=== PATIENT | male | born 1960 | race African-American/Black ===

== ENCOUNTER 2017-04-24 02:53 | Observation (INO) | payer OTHER ==
--- NOTE | 2017-04-24 03:39 | PDOC ---
History of Present Illness - General Chief Complaint: Chronic pain Stated Complaint: KNEE PAIN Time Seen by Provider: 04/24/17 02:58 - History of Present Illness Initial Comments: 04/24/17 03:22 CHIEF COMPLAINT: knee pain HISTORY OF PRESENT ILLNESS: 55 yo M with PMH of NIDDM, HTN, CHF, dyslipidemia, gout, and neuropathy presents to ED with "gout in my knee." Patient states he has had multiple episodes of gout attacks and this feels "exactly the same as usual, I can feel the crystals." Patient denies any shortness of breath, chest pain, headache, palpitations. No recent travel or sick contacts. PAST MEDICAL HISTORY: Denies past medical history FAMILY HISTORY: Denies SOCIAL HISTORY: Denies tobacco, alcohol, illicit drug use. SURGICAL HISTORY: Denies ALLERGIES: No known drug allergies REVIEW OF SYSTEMS General/Constitutional: Denies fever or chills. Denies weakness, weight change. HEENT: Denies change in vision. Denies ear pain or discharge. Denies sore throat. Cardiovascular: Denies chest pain or shortness of breath. Respiratory: Denies cough, wheezing, or hemoptysis. Gastrointestinal: Denies nausea, vomiting, diarrhea or constipation. Denies rectal bleeding. Genitourinary: Denies dysuria, frequency, or change in urination. Musculoskeletal: "My knee hurts, I can't walk on it at all." Skin and breasts: Denies rash or easy bruising. PHYSICAL EXAM General Appearance: Well-appearing, appropriately dressed. No apparent distress , no intoxication. HEENT: EOMI, PERRLA, normal ENT inspection, normal voice, TMs normal, pharynx normal. No conjunctival pallor. No photophobia, scleral icterus. Neck: Supple. Trachea midline. No tenderness, rigidity, carotid bruit, stridor , lymphadenopathy, or thyromegaly. Respiratory/Chest: Lungs CTAB. No shortness of breath, chest tenderness, respiratory distress, accessory muscle use. No crackles, rales, rhonchi, stridor , wheezing, dullness Cardiovascular: RRR. S1, S2. Vascular Pulses: Dorsalis-Pedis (R): 2+, Dorsalis-Pedis (L): 2+ Gastrointestinal/Abdominal: Normal bowel sounds. Abdomen soft, non-distended. No tenderness or rebound tenderness. No organomegaly, pulsatile mass, guarding , hernia, hepatomegaly, splenomegaly. Musculoskeletal/Extremities: Limited ROM to R knee. Normal inspection. FROM of all extremities, normal capillary refill. Pelvis Stable. No CVA tenderness. No tenderness to extremities, pedal edema, swelling, erythema or deformity. Integumentary: Appropriate color, dry, warm. No cyanosis, erythema, jaundice or rash Neurologic: automatic seamer II-XII intact. Fully oriented, alert. Appropriate mood/affect. Motor strength 5/5. No appreciable EOM palsy, facial droop or sensory deficit. Past History - Past Medical History Allergies/Adverse Reactions: Allergies Allergy/AdvReac Type Severity Reaction Status Date / Time No Known Allergies Allergy Verified 04/24/17 02:59 Home Medications: Ambulatory Orders Amlodipine Besylate 10 mg PO DAILY 04/24/17 Aripiprazole [Abilify] 10 mg PO DAILY 04/24/17 Atorvastatin Ca [Lipitor] 40 mg PO HS 04/24/17 Carvedilol 25 mg PO BID 04/24/17 Hydralazine HCl 50 mg PO TID 04/24/17 Valsartan 320 mg PO DAILY 04/24/17 Anemia: No Asthma: No Cancer: Yes Cardiac Disorders: Yes CVA: No COPD: No CHF: Yes Dementia: No Diabetes: Yes GI Disorders: No Disorders: No HTN: Yes Hypercholesterolemia: No Liver Disease: No Psychiatric Problems: Yes (bipolar) Suicide Attempt (Hx): No Seizures: No Thyroid Disease: No - Surgical History Abdominal Surgery: No Appendectomy: No Cardiac Surgery: No Cholecystectomy: No Lung Surgery: No Neurologic Surgery: No Orthopedic Surgery: No - Immunization History Immunization Up to Date: Yes - Psycho/Social/Smoking Cessation Hx Anxiety: Yes Suicidal Ideation: No Smoking History: Unknown if ever smoked Have you smoked in the past 12 months: No Number of Cigarettes Smoked Daily: 0 Information on smoking cessation initiated: No Hx Alcohol Use: No Drug/Substance Use Hx: No Substance Use Type: None Hx Substance Use Treatment: No *Physical Exam - Vital Signs Last Vital Signs Temp Pulse Resp BP Pulse Ox 97.4 F L 86 22 184/113 99 04/24/17 02:59 04/24/17 02:59 04/24/17 02:59 04/24/17 02:59 04/24/17 02:59 ED Treatment Course - LABORATORY CBC & Chemistry Diagram: 04/24/17 04:54 04/24/17 05:45 Medical Decision Making - Medical Decision Making 04/24/17 04:28 55 yo M with PMH of NIDDM, HTN, CHF, dyslipidemia, gout, and neuropathy presents to ED with "gout in my knee." VS remarkable for elevated BP, 187/113 -CBC, CMP, uric acid 04/24/17 05:45 CMP & uric acid specimens hemolyzed per lab, reordered. Patient complains of severe pain to R knee. -2 mg morphine 04/24/17 06:15 Patient states pain is "a little better, but I really still can't walk." Awaiting labs. Laboratory Tests 04/24/17 04/24/17 04/24/17 04:54 05:45 05:45 BUN Cancelled Creatinine 1.6 H D Uric Acid 8.8 H D Clinical presentation consistent with gout attack. BP continues to be elevated to 167/97. Patient reports that he normally takes hydralazine at home. -10 mg hydralazine -40 mg prednisone -1.2 colchicine 04/24/17 06:39 Case discussed in detail with oncoming emergency provider including history, physical exam and ancillary studies. In brief, this patient is being seen in the ED for a chief complaint of: knee pain/gout attack I have completed the initial assessment interview note and have ordered the following labs: CBC, CMP, uric acid I have reviewed the following results: all labs Plan for disposition as follows: discharge if patient ambulatory Oncoming SONY Brar has assumed care for the patient and will complete the evaluation and treatment. *DC/Admit/Observation/Transfer Diagnosis at time of Disposition: Knee pain, right, Unable to walk - Discharge Dispostion Condition at time of disposition: Stable Admit: No - Referrals - Patient Instructions
[2017-04-24] MEDS ORDERED: morphine CARPU-JECT 2 MG/1 ML DISP.SYRIN IVPUSH ONE (04:30)
[2017-04-24 04:59] LABS: BASOPHIL 0.8 % (0-2.0); EOSINOPHIL 1.5 % (0-4.5); MCHC 32.4 g/dl (32.0-35.9); MEAN CELL VOLUME 77.1 fl (80-96); NEUTROPHILS 82.5 % (42.8-82.8); PLATELET COUNT 300 K/MM3 (134-434); RDW 16.4 % (11.9-15.9); WHITE BLOOD COUNT 9.9 K/mm3 (4.0-10.0)
[2017-04-24] MEDS ORDERED: morphine CARPU-JECT 4 MG/1 ML DISP.SYRIN ONE (05:04)
[2017-04-24 06:27] LABS: ALBUMIN 3.2 g/dl (3.4-5.0); ALK PHOS 116 U/L (45-117); ANION GAP 9 (8-16); BILIRUBIN,TOTAL 0.3 mg/dL (0.2-1.0); CALCIUM 8.5 mg/dL (8.5-10.1); CO2 25 mmol/L (21-32); CREATININE 1.6 mg/dL (0.7-1.3); GLUCOSE,RANDOM 117 mg/dL (74-106); SGOT/AST 23 U/L (15-37); SGPT/ALT 26 U/L (12-78); TOT PROT 6.8 g/dl (6.4-8.2)
[2017-04-24] MEDS ORDERED: hydrALAZINE HCL 20 MG/ML VIAL IVPUSH ONE (06:30)
[2017-04-24] MEDS ORDERED: predniSONE 20 MG TABLET (UD) PO ONE (06:31)
[2017-04-24] MEDS ORDERED: hydrALAZINE HCL 20 MG/ML VIAL ONE (06:41)
[2017-04-24] MEDS ORDERED: predniSONE 20 MG TABLET (UD) ONE (06:41)
[2017-04-24] MEDS ORDERED: COLCHICINE 0.6 MG TABLET (FP) PO ONE ×2 (07:00→09:29)
[2017-04-24] MEDS ORDERED: COLCHICINE 0.6 MG TABLET (FP) ONE ×2 (07:34→09:33)
--- NOTE | 2017-04-24 08:19 | PDOC ---
*Physical Exam - Vital Signs Last Vital Signs Temp Pulse Resp BP Pulse Ox 97.7 F 86 17 154/97 100 04/24/17 05:10 04/24/17 07:46 04/24/17 07:46 04/24/17 07:46 04/24/17 07:46 - Physical Exam General Appearance: Yes: Appropriately Dressed. No: Apparent Distress HEENT: positive: Normal Voice Neck: positive: Supple Respiratory/Chest: negative: Respiratory Distress Extremity: positive: Normal Range of Motion, Swelling, Other (minimal swelling to R knee compared to L, no obvious effusion, no red, hot joint, FROMI). negative: Tender Integumentary: positive: Dry, Warm Neurologic: positive: Fully Oriented, Alert, Normal Mood/Affect ED Treatment Course - LABORATORY CBC & Chemistry Diagram: 04/24/17 04:54 04/24/17 05:45 - ADDITIONAL ORDERS Additional order review: Laboratory Results 04/24/17 04/24/17 04/24/17 05:45 05:45 04:54 Sodium 140 Cancelled Potassium 3.9 Cancelled Chloride 106 Cancelled Carbon Dioxide 25 Cancelled Anion Gap 9 Cancelled BUN 27 H Cancelled Creatinine 1.6 H D Cancelled Creat Clearance w eGFR 45.10 Cancelled Random Glucose 117 H Cancelled Uric Acid 8.8 H D Cancelled Calcium 8.5 Cancelled Total Bilirubin 0.3 D Cancelled AST 23 D Cancelled ALT 26 Cancelled Alkaline Phosphatase 116 Cancelled Total Protein 6.8 Cancelled Albumin 3.2 L Cancelled 04/24/17 04:54 RBC 4.66 MCV 77.1 L MCHC 32.4 RDW 16.4 H D MPV 9.0 Neutrophils % 82.5 Lymphocytes % 8.3 Monocytes % 6.9 Eosinophils % 1.5 Basophils % 0.8 - RADIOLOGY Radiology Studies Ordered: Category Date Time Status KNEE 2 POS-RIGHT [RAD] Stat Radiology 04/24/17 07:57 Ordered - Medications Given in the ED: ED Medications Discontinued Medications Generic Name Dose Route Start Last Admin Trade Name Freq PRN Reason Stop Dose Admin Colchicine 1.2 mg 04/24/17 07:00 04/24/17 07:46 Colcrys - PO 04/24/17 07:01 1.2 mg ONCE ONE Administration Hydralazine HCl 10 mg 04/24/17 06:30 04/24/17 06:42 Apresoline Injection - IVPUSH 04/24/17 06:31 10 mg ONCE ONE Administration Morphine Sulfate 2 mg 04/24/17 04:30 04/24/17 05:09 Morphine Injection - IVPUSH 04/24/17 04:31 2 mg ONCE ONE Administration Prednisone 40 mg 04/24/17 06:31 04/24/17 06:42 Deltasone - PO 04/24/17 06:32 40 mg ONCE ONE Administration Medical Decision Making - Medical Decision Making 04/24/17 08:14 Pt signed out to me at 7am 57 yo male, morbidly obesed, NIDDM, CKD (baseline cr ~6), HTN, gout, neuropathy , s/p admission for b/l LE pain in 2014, deemed to be gout vs neuropathy, tx w/ gabapentin and colchicine w/ discharge to [facility] , p/w pain and swelling to R knee w/ inability to bear weight on the right x2 days. uric acid mildly elevated in ED, nl wbc. Has since been given prednisone and morphine. Plan is to reassess and if improved, can be discharged per prior team. Of note, BP also elevated. Pt states he is on hydralazine and carvedilol at home but does not remember doses. Has since been given dose of hydralazine w/ improvement of BP 04/24/17 08:20 On reassessment, pt continues to states that he is unable to bear weight due to pain though pain is out of proportion to exam findings and pt appears to be in no apparent distress. No h/o septic joint per pt. Will get XR (assess for effusion), CRP and ESR at this time. Pt given 1.2 mg colchicine. Will give 2nd dose (0.6mg) in 1 hr. Also given gabapentin for possible neuropathy. 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 CRP mildly elevated. Pt continues to c/o pain and that he is unable to bear weight. Will discuss w/ hospitalist and admit to ?obs 04/24/17 10:08 04/24/17 10:15 04/24/17 10:43 Case d/w hospitalist and pt admitted to obs for pain control *DC/Admit/Observation/Transfer Diagnosis at time of Disposition: Unable to walk Knee pain, right Qualifiers: Chronicity: acute Qualified Code(s): M25.561 - Pain in right knee - Discharge Dispostion Condition at time of disposition: Stable Admit: Yes - Referrals Referrals: Gio Ospina MD [Staff Physician] - - Patient Instructions Printed Discharge Instructions: DI for Gout Additional Instructions: Please take medications as prescribed. You MUST follow up with your primary care doctor or the life science teacher (referral provided) by the end of next week for continued monitoring of your disease. If you experience any shortness of breath, chest pain, headache, dizziness, or any new or worsening symptoms, please return to the ER. - Post Discharge Activity
[2017-04-24] MEDS ORDERED: GABAPENTIN 300 MG CAPSULE (FP) PO ONE (08:40)
[2017-04-24] MEDS ORDERED: GABAPENTIN 100 MG CAPSULE (FP) ONE (08:47)
--- NOTE | 2017-04-24 12:34 | HP ---
Admitting History and Physical - Admission Chief Complaint: R knee pain History of Present Illness: HPI This is a 57 year old male with pmhx of gout, HTN, DM II, bipolar, CHF, who presented to the ED last night with acute worsening right knee pain. He was unable to ambulate or bear weight due to the pain and called EMS. The patient states his pain has been on and off throughout the week, however erupted on Wednesday. He does admit to eating a burger jude burger earlier in the day. He does not take any medications for gout, he was taken off of them, and admits he does not regularly take his home meds. He walks with a cane, did not fall or sustain an injury. He denies CP, SOB, abd pain, nausea, vomiting, fever, chills. ED course: 1. Knee xray negative for effusion 2. Prednisone 40mg x1 3. Colchicine 1.2mg x1 followed by 0.6 1hr later 4. Uric Acid 8.8 5. Pain same, unable to bear weight History Source: Patient Limitations to Obtaining History: No Limitations - Past Medical History Cardiovascular: Yes: CHF, HTN - Smoking History Smoking history: Unknown if ever smoked Have you smoked in the past 12 months: No Aproximately how many cigarettes per day: 0 - Alcohol/Substance Use Hx Alcohol Use: No - Social History Usual Living Arrangement: Yes: Alone ADL: Support Services Occupation: disability History of Recent Travel: No Home Medications - Allergies Allergies/Adverse Reactions: Allergies Allergy/AdvReac Type Severity Reaction Status Date / Time No Known Allergies Allergy Verified 04/24/17 02:59 - Home Medications Home Medications: Ambulatory Orders Amlodipine Besylate 10 mg PO DAILY 04/24/17 Aripiprazole [Abilify] 10 mg PO DAILY 04/24/17 Atorvastatin Ca [Lipitor] 40 mg PO HS 04/24/17 Carvedilol 25 mg PO BID 04/24/17 Hydralazine HCl 50 mg PO TID 04/24/17 Valsartan 320 mg PO DAILY 04/24/17 Family Disease History - Family Disease History Family Disease History: Heart Disease: Father (HTN) Physical Examination Vital Signs: Vital Signs Temperature 97.7 F 04/24/17 05:10 Pulse Rate 86 04/24/17 07:46 Respiratory Rate 17 04/24/17 07:46 Blood Pressure 154/97 04/24/17 07:46 O2 Sat by Pulse Oximetry (%) 100 04/24/17 07:46 Imaging - Results X-ray: Report Reviewed (XR neg for effusion but shows degenerative changes and 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 Acute Gout, R knee - Elevated uric acid level - Prednisone 30mg daily x5 days - PT daily with cane, pt unable to bear weight at this time 2. HTN - Hydralazine 50mg TID - Coreg 25mg BID - Hold norvasc for R knee swelling 3. YOCASTA - cr cl >90 - Trial gentle fluids x1L - Hold ARB 4. DM II - ISS, BGM ACHS 5. Bipolar - Daily abilify Visit type - Emergency Visit Emergency Visit: Yes ED Registration Date: 04/24/17 Care time: The patient presented to the Emergency Department on the above date and was hospitalized for further evaluation of their emergent condition. - New Patient This patient is new to me today: Yes Date on this admission: 04/24/17 - Critical Care Critical Care patient: No
[2017-04-24] MEDS ORDERED: ACETAMINOPHEN 325 MG TABLET (FP) PO PRN (13:09)
[2017-04-24] MEDS ORDERED: SODIUM CHLORIDE 1,000 ML IV SCH (13:15)
[2017-04-24] MEDS: hydrALAZINE HCL 50 MG TABLET (FP) PO SCH ×2 (14:33→22:01)
[2017-04-24] MEDS: ARIPiprazole 10 MG TABLET PO SCH (14:33)
[2017-04-24] MEDS: CARVEDILOL 25 MG TABLET (FP) PO SCH ×2 (14:33→22:01)
[2017-04-24 16:10] VITALS: BMI 44.3
[2017-04-24] MEDS: INSULIN SLIDING SCALE (NOVOLOG) 1 VIAL SQ SCH ×2 (17:45→21:57)
[2017-04-24] MEDS: HEPARIN NA (PORCINE) 5,000 UNITS/ML 1ML VIAL SQ SCH (17:54)
[2017-04-25] MEDS: HEPARIN NA (PORCINE) 5,000 UNITS/ML 1ML VIAL SQ SCH ×2 (01:13→09:54)
[2017-04-25] MEDS: INSULIN SLIDING SCALE (NOVOLOG) 1 VIAL SQ SCH (06:30)
[2017-04-25] MEDS: hydrALAZINE HCL 50 MG TABLET (FP) PO SCH (06:32)
[2017-04-25 07:31] LABS: BASOPHIL 0.7 % (0-2.0); EOSINOPHIL 0.3 % (0-4.5); MCH 24.9 pg (25.7-33.7); MCHC 32.3 g/dl (32.0-35.9); MEAN PLT VOLUME 8.2 fl (7.5-11.1); NEUTROPHILS 76.1 % (42.8-82.8); PLATELET COUNT 214 K/MM3 (134-434); RDW 16.6 % (11.9-15.9); WHITE BLOOD COUNT 9.3 K/mm3 (4.0-10.0)
[2017-04-25 08:10] LABS: ALBUMIN 2.8 g/dl (3.4-5.0); ALK PHOS 105 U/L (45-117); ANION GAP 7 (8-16); BILIRUBIN,TOTAL 0.3 mg/dL (0.2-1.0); CALCIUM 8.3 mg/dL (8.5-10.1); CO2 28 mmol/L (21-32); CREATININE 1.4 mg/dL (0.7-1.3); GLUCOSE,RANDOM 105 mg/dL (74-106); MAGNESIUM 2.2 mg/dL (1.8-2.4); PHOSPHOROUS 2.9 mg/dL (2.5-4.9); SGOT/AST 15 U/L (15-37); SGPT/ALT 20 U/L (12-78)
[2017-04-25] MEDS ORDERED: PT OWN MED DRAWER 7, Y5N ONE (09:52)
[2017-04-25] MEDS: CARVEDILOL 25 MG TABLET (FP) PO SCH (09:53)
[2017-04-25] MEDS: ARIPiprazole 10 MG TABLET PO SCH (09:54)
[2017-04-25] MEDS ORDERED: predniSONE 10 MG TABLET (UD) PO SCH (10:00)
[2017-04-25] MEDS ORDERED: BACITRACIN 15 GM TUBE TOPICAL OINTMENT TP SCH (10:30)
--- NOTE | 2017-04-25 10:36 | DS ---
Physical Exam: SUBJECTIVE: Patient seen and examined. He feels well today, he is ambulating without issue, swelling has decreased OBJECTIVE: Vital Signs Period Temp Pulse Resp BP Sys/Castillo Pulse Ox Last 24 Hr 97 F-98.3 F 66-92 17-72 140-185/64-125 100-100 PE Neuro: alert, awake, cn 2-12intact Pulm: CTAB CV: s1 s2 rrr no mrg Abd: obese abd, s nt + bs Ext: no le edema msk: r knee swelling decreased, no tenderness skin: LUE skin tear Laboratory Results - last 24 hr 04/25/17 04/25/17 06:10 06:10 WBC 9.3 RBC 4.41 Hgb 11.0 L Hct 34.0 L MCV 77.0 L MCH 24.9 L MCHC 32.3 RDW 16.6 H Plt Count 214 D MPV 8.2 Neutrophils % 76.1 Lymphocytes % 13.7 D Monocytes % 9.2 Eosinophils % 0.3 Basophils % 0.7 Sodium 142 Potassium 3.8 Chloride 107 Carbon Dioxide 28 Anion Gap 7 L BUN 20 H D Creatinine 1.4 H Creat Clearance w eGFR 52.62 POC Glucometer Random Glucose 105 Calcium 8.3 L Phosphorus 2.9 Magnesium 2.2 Total Bilirubin 0.3 AST 15 D ALT 20 D Alkaline Phosphatase 105 Total Protein 6.0 L Albumin 2.8 L HOSPITAL COURSE: Date of Admission:04/24/17 Date of Discharge: 04/25/17 Minutes to complete discharge: 36 Discharge Summary Reason For Visit: RIGHT KNEE PAIN Current Active Problems Knee pain, right (Acute) Unable to walk (Acute) Hospital Course: Initial Hospital Course: 57 year old male with pmhx of gout, HTN, DM II, bipolar, CHF, presented to the ED with acute worsening right knee pain. He was unable to ambulate or bear weight due to the pain and called EMS. The patient stated his pain has been on and off throughout the week, however erupted on Wednesday. He does admit to eating a burger jude burger earlier in the day. He does not take any medications for gout, he was taken off of them due to worsening kidney function, and admits he does not regularly take his home meds. He walks with a cane, did not fall or sustain an injury. He seen Dr. Longo at [facility] in [facility] Subsequent Hospital Course: Assessment: 57 year old male admitted with acute gout Plan: 1. Acute Gout, R knee - Elevated uric acid level - Given colchicine 1.2 followed by 0.6 and prednisone 40mg in ED initially - Home with Prednisone 30mg daily for total of 5 day course - Ambulate with cane 2. HTN - Hydralazine 50mg TID - Coreg 25mg BID - Norvasc 10mg daily 3. YOCASTA - Cr improved w fluids, returned to baseline here 4. Bipolar - Daily abilify 5. HLD - statin 6. DM II - Does not take PO meds - Was on sliding scale here 7. Skin tear, LUE - Home with bacitracin Dispo: - Home with prednisone - Follow up with pcp in 1 week - Pt aware and agrees to above plan Condition: Stable - Instructions Diet, Activity, Other Instructions: Please return to the ED for any new, persistent, or worsening symptoms. Follow up with your PCP in 1 week at [facility] in [facility] with Dr. Longo. Complete steroid course for gout for next 3 days Take home medications as directed on home medication list Apply bacitracin appt to L skin tear and keep area clean Referrals: Gio Ospina MD [Staff Physician] - Disposition: HOME - Home Medications Comprehensive Discharge Medication List: Ambulatory Orders Amlodipine Besylate 10 mg PO DAILY 04/24/17 Aripiprazole [Abilify] 10 mg PO DAILY 04/24/17 Atorvastatin Ca [Lipitor] 40 mg PO HS 04/24/17 Carvedilol 25 mg PO BID 04/24/17 Hydralazine HCl 50 mg PO TID 04/24/17 Valsartan 320 mg PO DAILY 04/24/17 Prednisone [Deltasone -] 30 mg PO DAILY #3 tablet 04/25/17 Problem List - Problems (1) Knee pain, right Code(s): M25.561 - PAIN IN RIGHT KNEE Qualifiers: Chronicity: acute Qualified Code(s): M25.561 - Pain in right knee (2) Unable to walk Code(s): R26.2 - DIFFICULTY IN WALKING, NOT ELSEWHERE CLASSIFIED (3) Gout Code(s): M10.9 - GOUT, UNSPECIFIED Qualifiers: Gout site: knee Gout etiology: unspecified cause Chronicity: chronic Laterality: right Presence of tophus: without tophus (4) CHF (congestive heart failure) Code(s): I50.9 - HEART FAILURE, UNSPECIFIED This patient is new to me today: No Emergency Visit: Yes ED Registration Date: 04/24/17 Care time: The patient presented to the Emergency Department on the above date and was hospitalized for further evaluation of their emergent condition. Critical Care patient: No - Discharge Referral Referred to [facility] Med [facility] No
[2017-04-25 10:44] VITALS: BP 142/96; PULSE 84; TEMP 99
== END 2017-04-25 11:20 | disposition home or self-care (01) ==
LOC: JER 02:53 → JERBED 10:43 → J8W 15:22
PROVIDERS: ADMIT Internal Medicine; ATTEND Nurse Practitioner Acute Care
PROC: 3E033NZ Introduction of Analgesics, Hypnotics, Sedatives into Peripheral Vein, Percutaneous Approach (ICD-10-PCS; principal; 2017-04-24)
PROC: 3E033GC Introduction of Other Therapeutic Substance into Peripheral Vein, Percutaneous Approach (ICD-10-PCS; 2017-04-24)
PROC: 3E0337Z Introduction of Electrolytic and Water Balance Substance into Peripheral Vein, Percutaneous Approach (ICD-10-PCS; 2017-04-24)
PROC: 3E013GC Introduction of Other Therapeutic Substance into Subcutaneous Tissue, Percutaneous Approach (ICD-10-PCS; 2017-04-24)
DX: M10.071 Idiopathic gout, right ankle and foot (principal); M25.561 Pain in right knee; R26.2 Difficulty in walking, not elsewhere classified; I10 Essential (primary) hypertension; I50.9 Heart failure, unspecified; E11.9 Type 2 diabetes mellitus without complications; E78.5 Hyperlipidemia, unspecified; F31.9 Bipolar disorder, unspecified; G62.9 Polyneuropathy, unspecified; N17.9 Acute kidney failure, unspecified; S40.812A Abrasion of left upper arm, initial encounter; X58.XXXA Exposure to other specified factors, initial encounter; Y93.9 Activity, unspecified; Y92.9 Unspecified place or not applicable
CPT/HCPCS: 36415; 73560-TC-RT; 80053; 83735; 84100; 84550; 85025; 85651; 86140; 99285-25; G0378; J1644

== ENCOUNTER 2017-06-24 15:25 | Emergency (ER) | payer OTHER ==
[2017-06-24 15:37] VITALS: BP 175/92; PULSE 88; TEMP 98.7; BMI 40.6
--- NOTE | 2017-06-24 16:42 | PDOC ---
History of Present Illness - General Chief Complaint: Pain, Acute Stated Complaint: EDEMA Time Seen by Provider: 06/24/17 16:21 History Source: Patient Exam Limitations: No Limitations - History of Present Illness Initial Comments: 06/24/17 16:45 06/24/17 16:54 My chief complaint: Right knee pain History of present illness: Patient is a 57-year-old male with a history of gout , hypertension, obesity, bipolar disorder, borderline diabetiic today complaining of right knee pain with difficulty ambulating. Patient reports that he was seen at the [facility] in [facility] in March 2017 and was told that he had a torn ligament or tendon in his right knee. Patient did not follow-up with orthopedist as recommended. Patient reports that he has had the right knee pain 3 days to write her however to attending told her that he had right knee pain for 3 months. Patient has slightly decreased range of motion of right knee and slight suprapatellar edema. Patient has not taken anything for pain. Patient denies any numbness of his leg. He denies any recent injuries. 06/24/17 18:51 Occurred: reports: other (3 days rt. knee pain ) Severity: Yes: severe Lower Extremity Pain Location: right: knee (anterior ) Method of Injury: Yes: unknown Modifying Factors: improves with: immobilization Lower Ext. Injury Location - Specific Injury Location Knees: right swelling (suprapatella minimal), right pain (suprapatella ) Extremity Pain Location - Extremity Pain Location Extremity Pain Locations: right: knee Past History - Past Medical History Allergies/Adverse Reactions: Allergies Allergy/AdvReac Type Severity Reaction Status Date / Time No Known Allergies Allergy Verified 06/24/17 15:35 Home Medications: Ambulatory Orders Amlodipine Besylate 10 mg PO DAILY 04/24/17 Aripiprazole [Abilify] 10 mg PO DAILY 04/24/17 Atorvastatin Ca [Lipitor] 40 mg PO HS 04/24/17 Carvedilol 25 mg PO BID 04/24/17 Hydralazine HCl 50 mg PO TID 04/24/17 Valsartan 320 mg PO DAILY 04/24/17 Prednisone [Deltasone -] 30 mg PO DAILY #3 tablet 04/25/17 Ibuprofen [Motrin -] 400 mg PO Q6H PRN #18 tablet 06/24/17 Anemia: No Asthma: No Cancer: Yes Cardiac Disorders: Yes CVA: No COPD: No CHF: Yes Dementia: No Diabetes: Yes GI Disorders: No Disorders: No HTN: Yes Hypercholesterolemia: No Liver Disease: No Psychiatric Problems: Yes (bipolar) Seizures: No Thyroid Disease: No - Surgical History Abdominal Surgery: No Appendectomy: No Cardiac Surgery: No Cholecystectomy: No Lung Surgery: No Neurologic Surgery: No Orthopedic Surgery: No - Immunization History Immunization Up to Date: Yes - Suicide/Smoking/Psychosocial Hx Smoking History: Unknown if ever smoked Have you smoked in the past 12 months: No Number of Cigarettes Smoked Daily: 0 Hx Alcohol Use: No Drug/Substance Use Hx: No Substance Use Type: None Hx Substance Use Treatment: No Review of Systems - Review of Systems Able to Perform ROS?: Yes Constitutional: No: Symptoms Reported HEENTM: No: Symptoms Reported Respiratory: No: Symptoms reported Cardiac (ROS): No: Symptoms Reported ABD/GI: No: Symptoms Reported Musculoskeletal: Yes: Joint Pain (rt. anterior knee pain ), Joint Swelling ( minimal suprapatella rt. knee) Integumentary: No: Symptoms Reported Neurological: No: Symptoms reported *Physical Exam - Vital Signs Last Vital Signs Temp Pulse Resp BP Pulse Ox 98.7 F 88 20 175/92 96 06/24/17 15:35 06/24/17 15:35 06/24/17 15:35 06/24/17 15:35 06/24/17 15:35 - Physical Exam General Appearance: Yes: Appropriately Dressed Respiratory/Chest: positive: Lungs Clear, Normal Breath Sounds. negative: Chest Tender, Respiratory Distress Cardiovascular: positive: Regular Rhythm, Regular Rate, S1, S2 Vascular Pulses: Dorsalis-Pedis (R): 4+ Extremity: positive: Normal Capillary Refill, Tender (rt.anterior knee), Swelling (minimal suprapatella rt. knee ), Other. negative: Normal Inspection ( suprapatella rt. knee), Normal Range of Motion (rt. knee RANGES AT 45 DEGREES) Integumentary: positive: Normal Color (NEGATIVE LAXITY), Other (NO INCREASED WARMTH RT. KNEE) Neurologic: positive: Alert, Normal Response, Responsive Deep Tendon Reflexes: Knee (R): 3+ Procedures - Consent Consent obtained: From Patient - Splinting Splint Location: Right: Knee Pre-Proc Neuro Vasc Exam: normal Pre-Made Type: knee immobilizer Complications: No Progress: 06/24/17 16:51 crutches Medical Decision Making - Medical Decision Making 06/24/17 18:09 06/24/17 18:51 06/24/17 18:52 Patient is a 57-year-old male with a history of gout, hypertension, obesity, bipolar disorder, borderline diabetiic today complaining of right knee pain with difficulty ambulating. Patient reports that he was seen at the [facility] in the [facility] in March 2017 and was told that he had a torn ligament or tendon in his right knee. Patient did not follow-up with orthopedist as recommended. Patient reports that he has had the right knee pain 3 days to write her however to attending told her that he had right knee pain for 3 months. Patient has slightly decreased range of motion of right knee and slight suprapatellar edema. Patient has not taken anything for pain. Patient denies any numbness of his leg. RIGHT KNEE PAIN PLAN: XRAY RT.KNEE no difficulty interval changes noted as discussed above in comparison to prior study of 04/24/2017. MRI evaluation is suggested nonemergent unless otherwise clinically indicated. There is a mild to moderate degenerative narrowing of the patellofemoral joint.Per Dr. Parr PERCOCET 5MG/325MG PO NOW KNEE IMMOBLIZER APPLIED PT. HAS CANE DOES NOT WANT CRUTCHES PT. NEEDS TO FOLLOW UP WITH ORTHOPEDIST WILL DISCHARGE ON IBUPROFEN 400 MG EVERY 6 HRS PRN PAIN 06/24/17 19:02 06/25/17 11:58 *DC/Admit/Observation/Transfer Diagnosis at time of Disposition: Knee pain, right anterior - Discharge Dispostion Disposition: HOME Condition at time of disposition: Stable - Prescriptions Prescriptions: Ibuprofen [Motrin -] 400 mg PO Q6H PRN #18 tablet PRN Reason: Pain - Referrals Referrals: German Cho MD [Staff Physician] - - Patient Instructions Additional Instructions: WEAR knee immobilizer during the day take off at night ELEVATE right leg as much as possible and apply ice every few hours for 10-15 minutes each time YOU MUST FOLLOW UP WITH ORTHOPEDIST SOON POSSIBLE FOR FURTHER EVALUATION USE YOUR CANE FOR AMBULATION RETURN TO EMERGENCY ROOM IF SYMPTOMS WORSEN OR NEW SYMPTOMS DEVELOP PATIENT VOICED UNDERSTANDING OF DISCHARGE INSTRUCTIONS AND ALL QUESTIONS WERE ANSWERED
--- NOTE | 2017-06-24 16:51 | PDOC ---
*Physical Exam - Vital Signs Last Vital Signs Temp Pulse Resp BP Pulse Ox 98.7 F 88 20 175/92 96 06/24/17 15:35 06/24/17 15:35 06/24/17 15:35 06/24/17 15:35 06/24/17 15:35 - Physical Exam General Appearance: Yes: Nourished Neck: positive: Trachea midline Respiratory/Chest: positive: Lungs Clear, Normal Breath Sounds Cardiovascular: positive: Regular Rhythm, Regular Rate, S1, S2 Extremity: positive: Other (right knee no laxity with anterior/. posterior drawer. ranges to 45deg without pain. hip ankle nt from. no effusion. no warmth. ) Integumentary: positive: Normal Color, Dry, Warm Neurologic: positive: Fully Oriented, Alert Medical Decision Making - Medical Decision Making 06/24/17 16:49 57 yo male ho bipolar chf, here with c/o 3 months right knee pain. believes he has had a ligamentous injury. walks with a cane. follows with pcp. but states she is not doing anything for his pain. no new trauma. no recollection of trauma or injury 3 mo ago. no f/c pain moderate worse with walking. on exam awake alert lungs clear heart rrr. right knee no effusion. no erythema, no warmth, able to range without difficulty to 45 degress, at which point he has pain. pt seen and examined, in conjunction with MEGAN Blackwell. agree with asssessment. no signs of inflammation such as gout. plan xray, pain medication crutches and immobilizer, and dc ortho followup. 07/05/17 08:57 *DC/Admit/Observation/Transfer Diagnosis at time of Disposition: Knee pain, right anterior - Discharge Dispostion Disposition: HOME Condition at time of disposition: Stable - Prescriptions Prescriptions: Ibuprofen [Motrin -] 400 mg PO Q6H PRN #18 tablet PRN Reason: Pain - Referrals Referrals: German Cho MD [Staff Physician] - - Patient Instructions Additional Instructions: WEAR knee immobilizer during the day take off at night ELEVATE right leg as much as possible and apply ice every few hours for 10-15 minutes each time YOU MUST FOLLOW UP WITH ORTHOPEDIST SOON POSSIBLE FOR FURTHER EVALUATION USE YOUR CANE FOR AMBULATION RETURN TO EMERGENCY ROOM IF SYMPTOMS WORSEN OR NEW SYMPTOMS DEVELOP PATIENT VOICED UNDERSTANDING OF DISCHARGE INSTRUCTIONS AND ALL QUESTIONS WERE ANSWERED
== END 2017-06-24 19:13 | disposition home or self-care (01) ==
LOC: JER 15:25
PROC: 2W3QX1Z Immobilization of Right Lower Leg using Splint (ICD-10-PCS; principal; 2017-06-24)
DX: M25.561 Pain in right knee (principal); I50.9 Heart failure, unspecified; F31.9 Bipolar disorder, unspecified; I10 Essential (primary) hypertension; E11.9 Type 2 diabetes mellitus without complications
CPT/HCPCS: 29515; 73562-TC-RT; 99282-25

== ENCOUNTER 2018-06-14 19:09 | Inpatient (IN) | payer OTHER ==
[2018-06-14] MEDS ORDERED: IBUPROFEN 400 MG TABLET (FP) PO ONE ×2 (20:05→20:07)
[2018-06-14] MEDS ORDERED: SODIUM CHLORIDE 1,000 ML IV STA (20:17)
--- NOTE | 2018-06-14 20:29 | PDOC ---
History of Present Illness - General Chief Complaint: Pain, Acute Stated Complaint: KNEE PAIN Time Seen by Provider: 06/14/18 19:55 History Source: Patient Exam Limitations: No Limitations - History of Present Illness Initial Comments: 06/14/18 20:22 Patient is a 58M with history of gout, DM, HTN, bipolar disorder here today complaining of right knee pain for the past two weeks, worsening so that he could not walk today. Patient endorses pain in his left great toe that has resolved before the pain in his knee. Patient states that this feels like his prior episodes of gout. Denies fevers, chills, nausea, vomiting. Denies chest pain, shortness of breath, and abdominal pain. Denies leg swelling and dysuria. Review of records show three prior admissions for gout and inability to ambulate. Past History - Past Medical History Allergies/Adverse Reactions: Allergies Allergy/AdvReac Type Severity Reaction Status Date / Time No Known Allergies Allergy Verified 06/14/18 19:56 Home Medications: Ambulatory Orders Amlodipine Besylate 10 mg PO DAILY 04/24/17 Aripiprazole [Abilify] 10 mg PO DAILY 04/24/17 Atorvastatin Ca [Lipitor] 40 mg PO HS 04/24/17 Carvedilol 25 mg PO BID 04/24/17 Hydralazine HCl 50 mg PO TID 04/24/17 Valsartan 320 mg PO DAILY 04/24/17 Ibuprofen [Motrin -] 400 mg PO Q6H PRN #18 tablet 06/24/17 Anemia: No Asthma: No Cancer: Yes Cardiac Disorders: Yes CVA: No COPD: No CHF: Yes Dementia: No Diabetes: Yes GI Disorders: No Disorders: No HTN: Yes Hypercholesterolemia: No Liver Disease: No Psychiatric Problems: Yes (bipolar) Seizures: No Thyroid Disease: No - Surgical History Abdominal Surgery: No Appendectomy: No Cardiac Surgery: No Cholecystectomy: No Lung Surgery: No Neurologic Surgery: No Orthopedic Surgery: No - Immunization History Immunization Up to Date: Yes - Suicide/Smoking/Psychosocial Hx Smoking History: Never smoked Have you smoked in the past 12 months: No Number of Cigarettes Smoked Daily: 0 Information on smoking cessation initiated: No Hx Alcohol Use: Yes Drug/Substance Use Hx: No Substance Use Type: None Hx Substance Use Treatment: No Review of Systems - Review of Systems Comments:: 06/14/18 20:24 GENERAL/CONSTITUTIONAL: No fever or chills. No weakness. HEAD, EYES, EARS, NOSE AND THROAT: No change in vision. No sore throat. CARDIOVASCULAR: No chest pain or shortness of breath RESPIRATORY: No cough, wheezing, or hemoptysis. GASTROINTESTINAL: No nausea, vomiting, diarrhea or constipation. GENITOURINARY: No dysuria, frequency, or change in urination. MUSCULOSKELETAL: +R knee pain. No neck or back pain. SKIN: No rash NEUROLOGIC: No headache, vertigo, loss of consciousness, or change in strength/ sensation. ENDOCRINE: No increased thirst. No abnormal weight change HEMATOLOGIC/LYMPHATIC: No anemia, easy bleeding, or history of blood clots. ALLERGIC/IMMUNOLOGIC: No hives or skin allergy. *Physical Exam - Vital Signs Last Vital Signs Temp Pulse Resp BP Pulse Ox 98.4 F 101 H 18 176/95 H 99 06/14/18 19:10 06/14/18 19:10 06/14/18 19:10 06/14/18 19:10 06/14/18 19:10 - Physical Exam Comments: 06/14/18 20:24 GENERAL: Awake, alert, and fully oriented, in no acute distress HEAD: No signs of trauma, normocephalic, atraumatic EYES: PERRLA, EOMI, sclera anicteric, conjunctiva clear ENT: Auricles normal inspection, hearing grossly normal, nares patent, oropharynx clear without exudates. Moist mucosa NECK: Normal ROM, supple, no lymphadenopathy, JVD, or masses LUNGS: No distress, speaks full sentences, clear to auscultation bilaterally HEART: Regular rate and rhythm, normal S1 and S2, no murmurs, rubs or gallops, peripheral pulses normal and equal bilaterally. ABDOMEN: Soft, nontender, normoactive bowel sounds. No guarding, no rebound. No masses R KNEE: Warm to touch, mildly swollen, tender to palpation, no signs of trauma, limited range of motion OTHER EXTREMITIES: Normal inspection, Normal range of motion, no edema. No clubbing or cyanosis. NEUROLOGICAL: Cranial nerves II through XII grossly intact. Normal speech, normal gait, no focal sensorimotor deficits SKIN: Warm, Dry, normal turgor, no rashes or lesions noted. Procedures - Arthrocentesis Indication: Septic Joint, Crystals (Gout/Psuedogout, Inflammation Arthrocentesis Site: right: knee Flexion: 20-30 degree Betadine Prep: Yes Sterile Dressing Applied: Yes Dry Tap: No Fluid Color: Yellow Fluid Amount mL: 15 Anesthesia: 2% Lidocaine Needle Size (guage): 18g Complications: No ED Treatment Course - LABORATORY CBC & Chemistry Diagram: 06/14/18 20:12 06/14/18 20:12 - RADIOLOGY Radiology Studies Ordered: Category Date Time Status CXRPORT [CHEST X-RAY PORTABLE*] [RAD] Stat Radiology 06/14/18 20:10 Ordered KNEE 3 POS-RIGHT [RAD] Stat Radiology 06/14/18 20:05 Ordered - Medications Given in the ED: ED Medications Discontinued Medications Generic Name Dose Route Start Last Admin Trade Name Freq PRN Reason Stop Dose Admin Ibuprofen 800 mg 06/14/18 20:05 06/14/18 20:10 Motrin - PO 06/14/18 20:06 800 mg ONCE ONE Administration Medical Decision Making - Medical Decision Making 06/14/18 20:25 Patient is a 58M with history of DM, HTN, bipolar disorder here today with right knee pain. Afebrile. Tachycardic to 102, in pain. DDx includes, but is not limited to: gout, septic joint, cellulitis. Strongly suspect gout, but will look for further signs of infection. Will workup with cbc, cmp, uric acid, esr/ crp. Not doing tap at this time because patient's history of gout. 06/14/18 21:21 Moderate effusion in right knee, cxr clear. EKG shows sinus tachycardia with rate of 108. No st elevations/depressions. Flattened t waves in inferior leads. Normal axis. Normal intervals. Once PVC. 06/14/18 22:18 Uric acid normal. CRP elevated. Patient has YOCASTA. Given fluids. Knee arthrocentesis done to rule out septic joint. Patient not walking. Signed out to Dr Garcia. *DC/Admit/Observation/Transfer Diagnosis at time of Disposition: Knee pain - Discharge Dispostion Condition at time of disposition: Stable - Referrals - Patient Instructions - Post Discharge Activity
[2018-06-14 20:47] LABS: HEMATOCRIT 33.7 % (35.4-49); HEMOGLOBIN 10.9 GM/dL (11.7-16.9); MCH 24.7 pg (25.7-33.7); MCHC 32.4 g/dl (32.0-35.9); MEAN PLT VOLUME 8.4 fl (7.5-11.1); PLATELET COUNT 267 K/MM3 (134-434); RBC 4.44 M/mm3 (4.00-5.60); RDW 17.5 % (11.9-15.9)
--- NOTE | 2018-06-14 20:58 | PDOC ---
Attending Attestation - Resident Resident Name: Froy Santos - ED Attending Attestation I have performed the following: I have examined & evaluated the patient, The case was reviewed & discussed with the resident, I agree w/resident's findings & plan, Exceptions are as noted - HPI HPI: 06/14/18 20:57 58 yo male p/w rt knee pain for some time -he has a h/o GOUT -no fever,no chills,no chest pain,no dyspnea,no recent trauma - Physicial Exam PE: 06/14/18 20:58 obese 58 yo male with rt knee pain head ncat neck supple lungs cta b/l cvs [id number] abd obese extremities rt knee is swollen skin warm and dry neuro axox3 06/14/18 22:37 - Medical Decision Making 06/14/18 22:38 uric acid was normal arthrocentosis was done on rt knee and copious amounts of synovial fluid were obtained -pt's bun and createnine are elevated from last know labs imp r/o septic vs inflammation of knee /renal insuffiency plan ADMISSION
[2018-06-14 21:22] LABS: ALBUMIN 2.6 g/dl (3.4-5.0); ALK PHOS 118 U/L (45-117); ANION GAP 11 MMOL/L (8-16); BILIRUBIN,TOTAL 0.4 mg/dL (0.2-1); BLOOD UREA NITROGEN 28 mg/dL (7-18); CALCIUM 8.4 mg/dL (8.5-10.1); CHLORIDE 108 mmol/L (98-107); CO2 23 mmol/L (21-32); CREATININE 2.5 mg/dL (0.55-1.3); GLUCOSE,RANDOM 91 mg/dL (74-106); POTASSIUM 3.4 mmol/L (3.5-5.1); SGOT/AST 17 U/L (15-37); SGPT/ALT 18 U/L (13-61); SODIUM 142 mmol/L (136-145); TOT PROT 6.9 g/dl (6.4-8.2); URIC ACID 6.8 mg/dL (2.6-7.2)
[2018-06-14] MEDS ORDERED: LIDOCAINE HCL 2% (50ML VIAL) INF ONE (21:30)
[2018-06-14] MEDS ORDERED: LIDOCAINE HCL 2% (20ML MULTI-DOSE VIAL) NR ONE (21:31)
[2018-06-14 21:45] LABS: ERYTHROCYTE SEDIMENTATION RATE 95 mm/hr (0-20)
--- NOTE | 2018-06-14 22:14 | PDOC ---
*Physical Exam - Vital Signs Last Vital Signs Temp Pulse Resp BP Pulse Ox 98.4 F 101 H 18 176/95 H 99 06/14/18 19:10 06/14/18 19:10 06/14/18 19:10 06/14/18 19:10 06/14/18 19:10 ED Treatment Course - LABORATORY CBC & Chemistry Diagram: 06/14/18 20:12 06/14/18 20:12 - ADDITIONAL ORDERS Additional order review: Laboratory Results 06/14/18 20:12 Sodium 142 Potassium 3.4 L Chloride 108 H Carbon Dioxide 23 Anion Gap 11 BUN 28 H Creatinine 2.5 H Creat Clearance w eGFR 26.85 Random Glucose 91 Uric Acid 6.8 Calcium 8.4 L Total Bilirubin 0.4 AST 17 ALT 18 Alkaline Phosphatase 118 H C-Reactive Protein 10.2 H Total Protein 6.9 Albumin 2.6 L 06/14/18 20:12 RBC 4.44 MCV 76.0 L MCHC 32.4 RDW 17.5 H MPV 8.4 - Medications Given in the ED: ED Medications Discontinued Medications Generic Name Dose Route Start Last Admin Trade Name Freq PRN Reason Stop Dose Admin Sodium Chloride 1,000 mls @ 1,000 mls/hr 06/14/18 20:17 06/14/18 21:08 Normal Saline - IV 06/14/18 21:16 1,000 mls/hr ASDIR STA Administration Ibuprofen 800 mg 06/14/18 20:05 06/14/18 20:10 Motrin - PO 06/14/18 20:06 800 mg ONCE ONE Administration Lidocaine HCl 10 mg 06/14/18 21:30 06/14/18 21:58 Xylocaine 2% INF 06/14/18 21:31 10 mg ONCE ONE Administration Medical Decision Making - Medical Decision Making 06/14/18 22:[address] Santos (Resident) and under the direction of Dr. Mcduffie ( Attending) 58 year old male with a PMH of gout, DM, HTN presents with R knee pain. S/p tap. Afebrile, initially hypertensive (SBP 170's) likely 2/2 to pain, current VS unremarkable. K+ replenished. Unable to ambulate. Will page hospitalist medicine service for admission. Patient declines pain medication. 06/14/18 22:23 Patient admitted to hospitalist medicine service. *DC/Admit/Observation/Transfer Diagnosis at time of Disposition: Gout, Knee pain - Discharge Dispostion Disposition: HOME Condition at time of disposition: Stable - Referrals - Patient Instructions - Post Discharge Activity
[2018-06-14] MEDS ORDERED: POTASSIUM CHLORIDE 20 MEQ PREMIX IVPB 100 ML IVPB ONE (22:15)
[2018-06-14] MEDS ORDERED: POTASSIUM CHLORIDE TABS 20 MEQ TABLET.ER (FP) PO ONE (22:23)
[2018-06-14] MEDS: POTASSIUM CHLORIDE TABS 20 MEQ TABLET.ER (FP) PO SCH (22:26)
[2018-06-14] MEDS ORDERED: KCL 10 MEQ IVPB 10 MEQ/100 ML INFUS.BAG IVPB SCH (22:30)
[2018-06-14 23:03] LABS: SYNOVIAL FLUID SOURCE SYNOVIAL FLUID
[2018-06-14 23:04] LABS: SYNOVIAL FLUID RBC 1463 /mm3
[2018-06-14 23:38] LABS: SYNOVIAL FLUID LYMPHOCYTES 3 %; SYNOVIAL FLUID MONOCYTES 13 %; SYNOVIAL FLUID NEUTROPHILS 84 %
[2018-06-15] MEDS ORDERED: LABETALOL HCL 5 MG/1 ML (100MG/20 ML VIAL) IVPUSH ONE (02:49)
[2018-06-15] MEDS ORDERED: amLODIPine BESYLATE 10 MG TABLET (FP) PO ONE (02:49)
[2018-06-15] MEDS ORDERED: hydrALAZINE HCL 20 MG/ML VIAL IVPUSH ONE (04:09)
[2018-06-15] MEDS ORDERED: ACETAMINOPHEN 1000 MG/100 ML VIAL (NON FORMULARY) IVPB ONE (04:15)
--- NOTE | 2018-06-15 04:34 | HP ---
<Vicente Putnam - Last Filed: 06/15/18 04:38> CHIEF COMPLAINT: PCP: Dr Del Angel, [facility] HISTORY OF PRESENT ILLNESS: Pt is a 58 y/o gentleman with a past medical history of gout, HTN, DM, and bipolar d/o who [facility] yesterday evening c/o severe pain in his right knee. Pain is described as sharp, 10/10 in severity, nonradiating, and worse with movement. P endorses that his pain was preceded by pain in his left great toe which has now subsided. Pt's pain has been present for 2 weeks however has progressively gotten worse and pt endorses that yesterday evening around 6 pm, pt was in bed and could not ambulate by himself. Pt called 911 and they went to his home and brought him to [facility]. Has had 3 prior admissions for Gout attacks in the past. Denies chest pain, sob, headache, fever, nausea, dizziness, or chills. ER course was notable for: (1) Arthrocentesis R Knee. Synovial WBC 46548 (2) Potassium 3.4 (3) Uric acid normal. CRP 10.2 Recent Travel: Denies PAST MEDICAL HISTORY: Gout, CHF, DM, HTN PAST SURGICAL HISTORY: Social History: Smoking: Denies Alcohol: Denies Drugs: Denies Family History: Allergies No Known Allergies Allergy (Verified 06/14/18 19:56) HOME MEDICATIONS: Home Medications Medication Instructions Recorded Amlodipine Besylate 10 mg PO DAILY 04/24/17 Aripiprazole [Abilify] 10 mg PO DAILY 04/24/17 Atorvastatin Ca [Lipitor] 40 mg PO HS 04/24/17 Carvedilol 25 mg PO BID 04/24/17 Hydralazine HCl 50 mg PO TID 04/24/17 Valsartan 320 mg PO DAILY 04/24/17 Ibuprofen [Motrin -] 400 mg PO Q6H PRN #18 tablet 06/24/17 REVIEW OF SYSTEMS CONSTITUTIONAL: Absent: fever, chills, diaphoresis, generalized weakness, malaise, loss of appetite, weight change HEENT: Absent: rhinorrhea, nasal congestion, throat pain, throat swelling, difficulty swallowing, mouth swelling, ear pain, eye pain, visual changes CARDIOVASCULAR: Absent: chest pain, syncope, palpitations, irregular heart rate, lightheadedness , peripheral edema RESPIRATORY: PRESENT: dyspnea with exertion, orthopnea, GASTROINTESTINAL: Absent: abdominal pain, abdominal distension, nausea, vomiting, diarrhea, constipation, melena, hematochezia GENITOURINARY: Absent: dysuria, frequency, urgency, hesitancy, hematuria, flank pain, genital pain MUSCULOSKELETAL: PRESENT: arthralgia, joint swelling SKIN: Absent: rash, itching, pallor HEMATOLOGIC/IMMUNOLOGIC: Absent: easy bleeding, easy bruising, lymphadenopathy, frequent infections ENDOCRINE: Absent: unexplained weight gain, unexplained weight loss, heat intolerance, cold intolerance NEUROLOGIC: Absent: headache, focal weakness or paresthesias, dizziness, unsteady gait, seizure, mental status changes, bladder or bowel incontinence PSYCHIATRIC: PRESENT: depression PHYSICAL EXAMINATION Vital Signs - 24 hr 06/14/18 06/14/18 06/15/18 19:10 23:12 01:59 Temperature 98.4 F 98.1 F Pulse Rate 101 H Pulse Rate [ 92 H 93 H Left] Respiratory 18 18 20 Rate Blood Pressure 176/95 H Blood Pressure 147/98 169/85 [Left Arm] O2 Sat by Pulse 99 98 96 Oximetry (%) 06/15/18 06/15/18 02:02 02:46 Temperature 98.6 F 98.3 F Pulse Rate 104 H Pulse Rate [ 93 H Left] Respiratory 20 20 Rate Blood Pressure 183/94 H Blood Pressure 169/85 [Left Arm] O2 Sat by Pulse 96 Oximetry (%) GENERAL: AAOx3 HEAD: NC/AT EYES: EOMI, PERRLA EARS, NOSE, THROAT: MMM NECK: Supple LUNGS: CTA B/L HEART: Irregular ABDOMEN: Obese, NT, ND, No HSM MUSCULOSKELETAL:Impaired ROM R Knee UPPER EXTREMITIES: No CCE LOWER EXTREMITIES: No CCE NEUROLOGICAL: Cn 2-12 intact PSYCHIATRIC: Cooperative. Good eye contact. Appropriate mood and affect. SKIN: Erythematous, warm knee Right. Laboratory Results - last 24 hr 06/14/18 06/14/18 06/14/18 20:08 20:12 20:12 WBC 10.0 RBC 4.44 Hgb 10.9 L Hct 33.7 L MCV 76.0 L MCH 24.7 L MCHC 32.4 RDW 17.5 H Plt Count 267 D MPV 8.4 ESR 95 H Sodium 142 Potassium 3.4 L Chloride 108 H Carbon Dioxide 23 Anion Gap 11 BUN 28 H Creatinine 2.5 H Creat Clearance w eGFR 26.85 Random Glucose 91 Uric Acid 6.8 Calcium 8.4 L Total Bilirubin 0.4 AST 1 ALT 18 Alkaline Phosphatase 118 H C-Reactive Protein 10.2 H Total Protein 6.9 Albumin 2.6 L Synovial Source Synovial fluid Synovial WBC 51859 Synovial RBC 1463 Synovial Neutrophils 84 Synovial Lymphocytes 3 Synovial Monocytes 13 ASSESSMENT/PLAN: Pt is a 58 y/o gentleman with a past medical history of gout, HTN, DM, and bipolar d/o who presented to [facility] yesterday evening c/o severe pain in his right knee # Septic/Inflammed Joint, Gout? -Uric Acid WNL - ESR/C-Reactive protein elevated -Synovial WBC 42516, WBC WNL - Ibuprofen PRN for pain and inflammation - Prednisone 30 mg QD x 3 days # Hypertension BP 176/95 on admission -Reconcile Home BP medications to day team -Hydralazine 10 mg IVPUSH, Amlodipine 10 mg given overnight. # YOCASTA BUN/CR 28/2.5 -Continue to monitor -Avoid Nephrotoxic agents # DM No DM Medications on Med list - Day team to Reconcile meds FEN No Fluids Monitor K+ Diabetic/Renal Diet DVT pxx Heparin 5,000 SQ BID Dispo: Continue to monitor on floor Visit type - Emergency Visit Emergency Visit: Yes ED Registration Date: 06/14/18 Care time: The patient presented to the Emergency Department on the above date and was hospitalized for further evaluation of their emergent condition. - New Patient This patient is new to me today: Yes Date on this admission: 06/15/18 - Critical Care Critical Care patient: No <Sophie Cain - Last Filed: 06/21/18 10:06> CHIEF COMPLAINT: PCP: HISTORY OF PRESENT ILLNESS: ER course was notable for: (1) (2) (3) Recent Travel: PAST MEDICAL HISTORY: PAST SURGICAL HISTORY: Social History: Smoking: Alcohol: Drugs: Family History: Allergies No Known Allergies Allergy (Verified 06/14/18 19:56) HOME MEDICATIONS: Home Medications Medication Instructions Recorded Amlodipine Besylate 10 mg PO DAILY 04/24/17 Aripiprazole [Abilify] 10 mg PO DAILY 04/24/17 Atorvastatin Ca [Lipitor] 40 mg PO HS 04/24/17 Carvedilol 25 mg PO BID 04/24/17 Hydralazine HCl 50 mg PO TID 04/24/17 Valsartan 320 mg PO DAILY 04/24/17 REVIEW OF SYSTEMS CONSTITUTIONAL: Absent: fever, chills, diaphoresis, generalized weakness, malaise, loss of appetite, weight change HEENT: Absent: rhinorrhea, nasal congestion, throat pain, throat swelling, difficulty swallowing, mouth swelling, ear pain, eye pain, visual changes CARDIOVASCULAR: Absent: chest pain, syncope, palpitations, irregular heart rate, lightheadedness , peripheral edema RESPIRATORY: Absent: cough, shortness of breath, dyspnea with exertion, orthopnea, wheezing, stridor, hemoptysis GASTROINTESTINAL: Absent: abdominal pain, abdominal distension, nausea, vomiting, diarrhea, constipation, melena, hematochezia GENITOURINARY: Absent: dysuria, frequency, urgency, hesitancy, hematuria, flank pain, genital pain MUSCULOSKELETAL: Absent: myalgia, arthralgia, joint swelling, back pain, neck pain SKIN: Absent: rash, itching, pallor HEMATOLOGIC/IMMUNOLOGIC: Absent: easy bleeding, easy bruising, lymphadenopathy, frequent infections ENDOCRINE: Absent: unexplained weight gain, unexplained weight loss, heat intolerance, cold intolerance NEUROLOGIC: Absent: headache, focal weakness or paresthesias, dizziness, unsteady gait, seizure, mental status changes, bladder or bowel incontinence PSYCHIATRIC: Absent: anxiety, depression, suicidal or homicidal ideation, hallucinations. PHYSICAL EXAMINATION GENERAL: Awake, alert, and fully oriented, in no acute distress. HEAD: Normal with no signs of trauma. EYES: Pupils equal, round and reactive to light, extraocular movements intact, sclera anicteric, conjunctiva clear. No lid lag. EARS, NOSE, THROAT: Ears normal, nares patent, oropharynx clear without exudates. Moist mucous membranes. NECK: Normal range of motion, supple without lymphadenopathy, JVD, or masses. LUNGS: Breath sounds equal, clear to auscultation bilaterally. No wheezes, and no crackles. No accessory muscle use. HEART: Regular rate and rhythm, normal S1 and S2 without murmur, rub or gallop. ABDOMEN: Soft, nontender, not distended, normoactive bowel sounds, no guarding, no rebound, no masses. No hepatomegaly or splenomegaly. MUSCULOSKELETAL: Normal range of motion at all joints. No bony deformities or tenderness. No CVA tenderness. UPPER EXTREMITIES: 2+ pulses, warm, well-perfused. No cyanosis. No clubbing. No peripheral edema. LOWER EXTREMITIES: 2+ pulses, warm, well-perfused. No calf tenderness. No peripheral edema. NEUROLOGICAL: Cranial nerves II-XII intact. Normal speech. Normal gait. PSYCHIATRIC: Cooperative. Good eye contact. Appropriate mood and affect. SKIN: Warm, dry, normal turgor, no rashes or lesions noted, normal capillary refill. ASSESSMENT/PLAN:
--- NOTE | 2018-06-15 07:08 | PN ---
Teaching Attending Note Name of Resident: Vicente Putnam ATTENDING PHYSICIAN STATEMENT I saw and evaluated the patient. I reviewed the resident's note and discussed the case with the resident. I agree with the resident's findings and plan as documented. SUBJECTIVE: Patient c/o right knee pain and swelling for almost a week and was unable to get his medications and did not take anything at home for the pain. Patient states he was unable to bare weight. Last admission was april 2017 for a gout attack. Patient lives by myself and has no assistance or family close by. OBJECTIVE: Gen: A&Ox3, Obese HEENT: PERRLA, EOMI, MMM CVS: RRR, S1,S2 LUNGS: CTA ABD: soft, NT, ND, BS+ Ext: Right knee slightly swollen, warm, tender on movement with limited ROM. unable to stand due to pain. Neuro: CN 2-12 intact. CBCD WBC 10.0 K/mm3 (4.0-10.0) 06/14/18 20:12 RBC 4.44 M/mm3 (4.00-5.60) 06/14/18 20:12 Hgb 10.9 GM/dL (11.7-16.9) L 06/14/18 20:12 Hct 33.7 % (35.4-49) L 06/14/18 20:12 MCV 76.0 fl (80-96) L 06/14/18 20:12 MCHC 32.4 g/dl (32.0-35.9) 06/14/18 20:12 RDW 17.5 % (11.9-15.9) H 06/14/18 20:12 Plt Count 267 K/MM3 (134-434) D 06/14/18 20:12 MPV 8.4 fl (7.5-11.1) 06/14/18 20:12 CMP Sodium 142 mmol/L (136-145) 06/14/18 20:12 Potassium 3.4 mmol/L (3.5-5.1) L 06/14/18 20:12 Chloride 108 mmol/L (98-107) H 06/14/18 20:12 Carbon Dioxide 23 mmol/L (21-32) 06/14/18 20:12 Anion Gap 11 MMOL/L (8-16) 06/14/18 20:12 BUN 28 mg/dL (7-18) H 06/14/18 20:12 Creatinine 2.5 mg/dL (0.55-1.3) H 06/14/18 20:12 Creat Clearance w eGFR 26.85 (>60) 06/14/18 20:12 Random Glucose 91 mg/dL (74-106) 06/14/18 20:12 Calcium 8.4 mg/dL (8.5-10.1) L 06/14/18 20:12 Total Bilirubin 0.4 mg/dL (0.2-1) 06/14/18 20:12 AST 17 U/L (15-37) 06/14/18 20:12 ALT 18 U/L (13-61) 06/14/18 20:12 Alkaline Phosphatase 118 U/L (45-117) H 06/14/18 20:12 Total Protein 6.9 g/dl (6.4-8.2) 06/14/18 20:12 Albumin 2.6 g/dl (3.4-5.0) L 06/14/18 20:12 ASSESSMENT AND PLAN: Gout attack Idomethacin Prednisone 40mg daily for 3 days continue Colchicine PT consult SW for safe discharge or placement in [facility]. DVT prophylaxis Patient counselled on medication adherence and planning for future attacks, including keeping NSAIDs close to bed. Continue home medications
[2018-06-15 07:47] LABS: BASO % 0.8 % (0-2.0); EOS % 1.2 % (0-4.5); HEMATOCRIT 32.4 % (35.4-49); HEMOGLOBIN 10.3 GM/dL (11.7-16.9); LYMPH % 13.1 % (8-40); MCH 23.8 pg (25.7-33.7); MCHC 31.7 g/dl (32.0-35.9); MEAN CELL VOLUME 75.2 fl (80-96); MEAN PLT VOLUME 8.4 fl (7.5-11.1); MONO % 12.6 % (3.8-10.2); NEUT % 72.3 % (42.8-82.8); PLATELET COUNT 241 K/MM3 (134-434); RDW 17.7 % (11.9-15.9); WHITE BLOOD COUNT 8.3 K/mm3 (4.0-10.0)
[2018-06-15 08:15] LABS: ANION GAP 8 MMOL/L (8-16); BLOOD UREA NITROGEN 32 mg/dL (7-18); CALCIUM 8.1 mg/dL (8.5-10.1); CHLORIDE 110 mmol/L (98-107); CO2 24 mmol/L (21-32); CREATININE 2.5 mg/dL (0.55-1.3); GLUCOSE,RANDOM 111 mg/dL (74-106); MAGNESIUM 2.1 mg/dL (1.8-2.4); PHOSPHOROUS 2.8 mg/dL (2.5-4.9); POTASSIUM 3.3 mmol/L (3.5-5.1); SODIUM 142 mmol/L (136-145)
[2018-06-15 08:21] VITALS: BMI 39.2
[2018-06-15 08:33] LABS: INR 1.18 (0.83-1.09); PROTHROMBIN TIME (PATIENT) 13.3 SEC (9.7-13.0)
[2018-06-15 08:36] LABS: ACTIVATED PTT 28.9 SECONDS (25.2-36.5)
[2018-06-15] MEDS ORDERED: SODIUM CHLORIDE 1,000 ML IV SCH (09:30)
[2018-06-15] MEDS ORDERED: predniSONE 20 MG TABLET (UD) PO SCH (10:00)
[2018-06-15] MEDS: POTASSIUM CHLORIDE TABS 20 MEQ TABLET.ER (FP) PO SCH (10:52)
[2018-06-15] MEDS: HEPARIN NA (PORCINE) 5,000 UNITS/ML 1ML VIAL SQ SCH ×2 (10:53→21:13)
--- NOTE | 2018-06-15 13:21 | EKG ---
Test Reason : Blood Pressure : / mmHG Vent. Rate : 108 BPM Atrial Rate : 108 BPM P-R Int : 164 ms QRS Dur : 094 ms QT Int : 354 ms P-R-T Axes : 034 -09 019 degrees QTc Int : 474 ms SINUS TACHYCARDIA WITH OCCASIONAL PREMATURE VENTRICULAR COMPLEXES INFERIOR INFARCT , AGE UNDETERMINED ABNORMAL ECG WHEN COMPARED WITH ECG OF 02-MAR-2015 16:19, PREMATURE VENTRICULAR COMPLEXES ARE NOW PRESENT MINIMAL CRITERIA FOR ANTERIOR INFARCT ARE NO LONGER PRESENT INFERIOR INFARCT IS NOW PRESENT NONSPECIFIC T WAVE ABNORMALITY NO LONGER EVIDENT IN ANTERIOR LEADS NONSPECIFIC T WAVE ABNORMALITY NOW EVIDENT IN LATERAL LEADS Confirmed by CARMINE BLANCO MD ([id number]) on 06/15/2018 1:21:03 PM Referred By: Confirmed By:CARMINE BLANCO MD
[2018-06-15] MEDS: VALSARTAN 160 MG TABLET (UD) PO SCH (15:57)
[2018-06-15] MEDS: hydrALAZINE HCL 50 MG TABLET (FP) PO SCH ×2 (15:59→21:13)
[2018-06-15] MEDS: amLODIPine BESYLATE 10 MG TABLET (FP) PO SCH (15:59)
[2018-06-15] MEDS ORDERED: VANCOMYCIN 1,500 MG in DEXTROSE 5%-WATER - 500 ML IVPB ONE (16:45)
[2018-06-15] MEDS ORDERED: VANCOMYCIN 1,500 MG in DEXTROSE 5%-WATER - 250 ML IVPB SCH (16:45)
--- NOTE | 2018-06-15 17:50 | CONSULT ---
Consult Consult Specialty:: Nephrology Reason for Consultation:: YOCASTA - History of Present Illness Chief Complaint: right knee pain History of Present Illness: Pt is a 58 year old male with pmhx of CKD, CHF, gout, DM, HTN, and bipolar who presents to the ER with right knee pain. He says that the pain had been worsening to the point where he cant walk. He was found to have elevated creatinine. He says he was diagnosed with kidney disease about 10 years ago. He saw a doctor in the city once but never went back. He denies dysuria or hematuria. He denies shortness of breath. He has been taking daily nsaids for the last few months. - History Source History Provided By: Patient - Past Medical History Cardio/Vascular: Yes: CHF, HTN Renal/: Yes: Renal Inusuff Rheumatology: Yes: Gout - Alcohol/Substance Use Hx Alcohol Use: Yes - Smoking History Smoking history: Never smoked Have you smoked in the past 12 months: No Aproximately how many cigarettes per day: 0 - Social History ADL: Support Services Occupation: disability History of Recent Travel: No Home Medications - Allergies Allergies/Adverse Reactions: Allergies Allergy/AdvReac Type Severity Reaction Status Date / Time No Known Allergies Allergy Verified 06/14/18 19:56 - Home Medications Home Medications: Ambulatory Orders Amlodipine Besylate 10 mg PO DAILY 04/24/17 Aripiprazole [Abilify] 10 mg PO DAILY 04/24/17 Atorvastatin Ca [Lipitor] 40 mg PO HS 04/24/17 Carvedilol 25 mg PO BID 04/24/17 Hydralazine HCl 50 mg PO TID 04/24/17 Valsartan 320 mg PO DAILY 04/24/17 Ibuprofen [Motrin -] 400 mg PO Q6H PRN #18 tablet 06/24/17 Family Disease History - Family Disease History Family Disease History: Heart Disease: Father (HTN) Review of Systems - Review of Systems Constitutional: reports: Malaise Eyes: reports: No Symptoms HENT: reports: No Symptoms Neck: reports: No Symptoms Cardiovascular: reports: No Symptoms Respiratory: reports: No Symptoms Gastrointestinal: reports: No Symptoms Genitourinary: reports: No Symptoms Musculoskeletal: reports: Joint Pain Integumentary: reports: No Symptoms Neurological: reports: No Symptoms Endocrine: reports: No Symptoms Hematology/Lymphatic: reports: No Symptoms Psychiatric: reports: No Symptoms Physical Exam Vital Signs: Vital Signs Temperature 98.5 F 06/15/18 16:09 Pulse Rate 104 H 06/15/18 16:09 Respiratory Rate 22 H 06/15/18 16:09 Blood Pressure 159/106 H 06/15/18 16:09 O2 Sat by Pulse Oximetry (%) 96 06/15/18 02:02 Constitutional: Yes: Calm Eyes: Yes: Conjunctiva Clear HENT: Yes: Atraumatic Cardiovascular: Yes: S1, S2 Respiratory: Yes: CTA Bilaterally Gastrointestinal: Yes: Soft, Abdomen, Obese Renal/: Yes: WNL Musculoskeletal: Yes: Joint Swelling Edema: LLE: Trace, RLE: Trace Neurological: Yes: Oriented Psychiatric: Yes: Oriented Labs: CBC, BMP 06/15/18 06:20 06/15/18 06:20 Laboratory Tests 06/11/14 03/02/15 03/04/15 05:20 15:19 06:00 Hgb Potassium BUN Creatinine 1.6 H 1.4 H 1.4 H 04/24/17 04/25/17 06/14/18 05:45 06:10 20:12 Hgb Potassium 3.4 L BUN 28 H Creatinine 1.6 H D 1.4 H 2.5 H 06/14/18 06/15/18 06/15/18 20:12 06:20 06:20 Hgb 10.9 L 10.3 L Potassium 3.3 L BUN 32 H Creatinine 2.5 H Imaging - Results Chest X-ray: Report Reviewed Problem List - Problems (1) CKD (chronic kidney disease) Code(s): N18.9 - CHRONIC KIDNEY DISEASE, UNSPECIFIED (2) YOCASTA (acute kidney injury) Code(s): N17.9 - ACUTE KIDNEY FAILURE, UNSPECIFIED (3) Knee pain Code(s): M25.569 - PAIN IN UNSPECIFIED KNEE (4) CHF (congestive heart failure) Code(s): I50.9 - HEART FAILURE, UNSPECIFIED (5) Hypokalemia Code(s): E87.6 - HYPOKALEMIA (6) Knee pain, right Code(s): M25.561 - PAIN IN RIGHT KNEE Qualifiers: Chronicity: acute Qualified Code(s): M25.561 - Pain in right knee Assessment/Plan Current Medications Generic Name Dose Route Start Last Admin Trade Name Freq PRN Reason Stop Dose Admin Amlodipine Besylate 10 mg 06/15/18 15:30 06/15/18 15:59 Norvasc - PO 10 mg DAILY RONALD Administration Aripiprazole 10 mg 06/15/18 15:30 Abilify PO DAILY RONALD Atorvastatin Calcium 40 mg 06/15/18 22:00 Lipitor - PO HS RONALD Carvedilol 25 mg 06/15/18 22:00 Coreg - PO BID RONALD Heparin Sodium (Porcine) 5,000 unit 06/15/18 10:00 06/15/18 10:53 Heparin - SQ 5,000 unit BID RONALD Administration Hydralazine HCl 50 mg 06/15/18 15:30 06/15/18 15:59 Apresoline - PO 50 mg TID RONALD Administration Sodium Chloride 1,000 mls @ 100 mls/hr 06/15/18 09:30 06/15/18 10:51 Normal Saline - IV 100 mls/hr ASDIR RONALD Administration Vancomycin HCl 1,500 mg/ 250 mls @ 166.667 mls/hr 06/15/18 16:45 Dextrose IVPB Q12H RONALD Protocol Vancomycin HCl 1,500 mg/ 500 mls @ 166.667 mls/hr 06/15/18 16:45 Dextrose IVPB 06/15/18 19:44 ONCE ONE Protocol Potassium Chloride 20 meq 06/15/18 10:00 06/15/18 10:52 K-Dur - PO 20 meq DAILY RONALD Administration Prednisone 40 mg 06/15/18 10:00 06/15/18 10:53 Deltasone - PO 06/17/18 10:00 40 mg DAILY RONALD Administration Valsartan 320 mg 06/15/18 15:30 06/15/18 15:57 Diovan - PO 320 mg DAILY RONALD Administration Impression 1. YOCASTA 2. CKD 3. r/o septic knee 4. HTN 5. CHF 6. hypokalemia 7. hx bipolar 8. gout 9. 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
--- NOTE | 2018-06-15 18:01 | CONSULT ---
Consult Consult Specialty:: Orthopedic Surgery Referred by:: Hospitalist Reason for Consultation:: Right knee pain - r/o septic joint - History of Present Illness Chief Complaint: Right knee pain History of Present Illness: This is a 58 year old male with a significant medical history including gout, admitted for right knee pain and difficulty ambulating on his right lower extremity. Patient states that his pain started with at his right great toe two weeks ago and was intermittent in nature. This slowly resolved, however he began to have right knee pain, which is constant in nature, and worsened with activity. On pain scale, his pain is 4/10 at rest, and 9/10 with movement. He states that he had a simlar episode 1 year ago, when he was admitted and diagnosed with Gout. He has not been taking any medications at home for Gout. He presented to the ED on 06/14/18 and his right knee was aspirated. After his knee was aspirated, he was admitted to the medical service and was started on prednisone 40mg daily, and vancomycin. He denies any trauma or numbness / tingling to his right knee and lower extremity. He also denies any fevers, chills, head aches, CP, or SOB a this time. - History Source History Provided By: Patient Limitations to Obtaining History: No Limitations - Past Medical History Cardio/Vascular: Yes: CHF, HTN Renal/: Yes: Renal Inusuff Rheumatology: Yes: Gout - Alcohol/Substance Use Hx Alcohol Use: Yes - Smoking History Smoking history: Never smoked Have you smoked in the past 12 months: No Aproximately how many cigarettes per day: 0 - Social History ADL: Support Services Occupation: disability History of Recent Travel: No Home Medications - Allergies Allergies/Adverse Reactions: Allergies Allergy/AdvReac Type Severity Reaction Status Date / Time No Known Allergies Allergy Verified 06/14/18 19:56 - Home Medications Home Medications: Ambulatory Orders Amlodipine Besylate 10 mg PO DAILY 04/24/17 Aripiprazole [Abilify] 10 mg PO DAILY 04/24/17 Atorvastatin Ca [Lipitor] 40 mg PO HS 04/24/17 Carvedilol 25 mg PO BID 04/24/17 Hydralazine HCl 50 mg PO TID 04/24/17 Valsartan 320 mg PO DAILY 04/24/17 Ibuprofen [Motrin -] 400 mg PO Q6H PRN #18 tablet 06/24/17 Family Disease History - Family Disease History Family Disease History: Heart Disease: Father (HTN) Review of Systems - Review of Systems Musculoskeletal: reports: Decreased ROM, Joint Pain Physical Exam Vital Signs: Vital Signs Temperature 98.5 F 06/15/18 16:09 Pulse Rate 104 H 06/15/18 16:09 Respiratory Rate 22 H 06/15/18 16:09 Blood Pressure 159/106 H 06/15/18 16:09 O2 Sat by Pulse Oximetry (%) 96 06/15/18 02:02 Constitutional: Yes: Well Nourished, No Distress, Calm, Obese Musculoskeletal: Yes: Joint Swelling (Right lower extremity: 2+ DP/PT, CR Brisk , L3-S1 SILT, No Calf TTP, Small effusion, + EHL/FHL/GC/TA 5/5 muscle strength, Painless AROM through 0-90 degree arc, Moderate pain after 90 degrees, No Erythema; Normal temperature of knee comparable to opposite leg, No signs of septic joint;; B/L Upper Extremity and Left Lower Extremity: Painless FROM, no signs of septic joint, neurovascularly intact. Compartments soft and compressible.) ...Motor Strength: WNL, LLE, RLE Labs: Synovial fluid right knee: Gram stain negative, cultures pending ESR / CRP elevated. CBC, BMP 06/15/18 06:20 06/15/18 06:20 Imaging - Results X-ray: Report Reviewed, Image Reviewed (A/P, Lateral radiographs of the Right knee taken on 06/14 were reviewed by me today demonstrating mild osteoarthritis in the PF and medial compartments, characterized by osteophyte formation joint space narrowing, and sclerosis. No fractures, dislocations or subluxations seen. 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 Plan: 1. Low suspicion of septic arthritis based on physical exam and labs. 2. Pain control 3. DVT prophylaxis 4. Physical therapy - Weight bearing as tolerated Right lower extremity 5. Trend ESR/CRP 6. Continue Gout medications 7. Will follow aspirated synovial cultures 8. NPO past Midnight, and will re-evaluate in AM.
[2018-06-15] MEDS ORDERED: COLCHICINE 0.6 MG TABLET (FP) PO ONE ×2 (18:18→19:30)
[2018-06-15] MEDS: ARIPiprazole 10 MG TABLET PO SCH (18:22)
[2018-06-15] MEDS ORDERED: PT OWN MED DRAWER 7, Y5N ONE (20:29)
[2018-06-15] MEDS: CARVEDILOL 25 MG TABLET (FP) PO SCH (21:13)
[2018-06-15] MEDS: ATORVASTATIN CA 40 MG TABLET (FP) PO SCH (21:13)
[2018-06-15 21:28] LABS: RATIO URIN PROTEIN/URIN CREAT 7.1 MG/DL
[2018-06-15 21:49] LABS: URINE APPEARANCE CLEAR; URINE BILIRUBIN NEGATIVE (<2.0 mg/dL); URINE COLOR LTYELLOW; URINE GLUCOSE (UA) 2+ (NEGATIVE); URINE KETONE NEGATIVE (NEGATIVE); URINE LEUK ESTERASE NEGATIVE (NEGATIVE); URINE NITRITE NEGATIVE (NEGATIVE); URINE UROBILINOGEN NEGATIVE mg/dL (0.2-1.0)
[2018-06-15 21:56] LABS: URINE PROTEIN 3+ (NEGATIVE)
[2018-06-15 21:57] LABS: EPI CELLS RARE /HPF (FEW); URINE MUCUS RARE
[2018-06-16] MEDS: hydrALAZINE HCL 50 MG TABLET (FP) PO SCH ×4 (06:46→21:26)
[2018-06-16 08:02] LABS: BASO % 0.4 % (0-2.0); EOS % 0.3 % (0-4.5); HEMOGLOBIN 9.7 GM/dL (11.7-16.9); MCH 23.8 pg (25.7-33.7); MCHC 31.4 g/dl (32.0-35.9); MEAN PLT VOLUME 8.6 fl (7.5-11.1); MONO % 9.1 % (3.8-10.2); NEUT % 80.2 % (42.8-82.8); PLATELET COUNT 223 K/MM3 (134-434); RBC 4.08 M/mm3 (4.00-5.60); RDW 17.6 % (11.9-15.9); WHITE BLOOD COUNT 11.3 K/mm3 (4.0-10.0)
[2018-06-16 08:23] LABS: ALBUMIN 2.3 g/dl (3.4-5.0); ALK PHOS 104 U/L (45-117); ANION GAP 12 MMOL/L (8-16); BILIRUBIN,TOTAL 0.3 mg/dL (0.2-1); BLOOD UREA NITROGEN 36 mg/dL (7-18); CALCIUM 8.7 mg/dL (8.5-10.1); CHLORIDE 111 mmol/L (98-107); CO2 22 mmol/L (21-32); CREATININE 2.5 mg/dL (0.55-1.3); GLUCOSE,RANDOM 108 mg/dL (74-106); MAGNESIUM 2.1 mg/dL (1.8-2.4); POTASSIUM 3.8 mmol/L (3.5-5.1); SGOT/AST 17 U/L (15-37); SGPT/ALT 17 U/L (13-61); SODIUM 145 mmol/L (136-145); TOT PROT 6.4 g/dl (6.4-8.2)
--- NOTE | 2018-06-16 08:53 | PN ---
Physical Exam: SUBJECTIVE: Patient seen and examined at bedside. Pain in right knee is much better. OBJECTIVE: Vital Signs Period Temp Pulse Resp BP Sys/Castillo Pulse Ox Last 24 Hr 97.4 F-98.5 F 93-107 20-22 144-165/74-106 GENERAL: The patient is awake, alert, and fully oriented, in no acute distress. LUNGS: CTA HEART: Regular rate and rhythm, S1, S2 ABDOMEN: Soft, nontender, nondistended RLE: minimal right knee swelling, no warmth, no erythema NEUROLOGICAL: Cranial nerves II through XII grossly intact. Laboratory Results - last 24 hr 06/14/18 06/15/18 06/15/18 20:08 06:20 16:30 WBC RBC Hgb Hct MCV MCH MCHC RDW Plt Count MPV Absolute Neuts (auto) Neutrophils % Lymphocytes % Monocytes % Eosinophils % Basophils % Nucleated RBC % Sodium Potassium Chloride Carbon Dioxide Anion Gap BUN Creatinine Creat Clearance w eGFR Random Glucose Hemoglobin A1c % 5.5 Calcium Magnesium Total Bilirubin AST ALT Alkaline Phosphatase C-Reactive Protein Total Protein Albumin Urine Color Urine Appearance Urine pH Ur Specific [place] Urine Protein Urine Glucose (UA) Urine Ketones Urine Blood Urine Nitrite Urine Bilirubin Urine Urobilinogen Ur Leukocyte Esterase Urine WBC (Auto) Urine RBC (Auto) Ur Epithelial Cells Urine Mucus U Random Total Protein Ur Random Sodium 19 L Ur Random Potassium 21.0 L Ur Random Chloride 17 L Urine Creatinine Protein/Creatinin Ratio Synovial Crystals Negative 06/15/18 06/15/18 06/16/18 16:30 16:30 07:30 WBC RBC Hgb Hct MCV MCH MCHC RDW Plt Count MPV Absolute Neuts (auto) Neutrophils % Lymphocytes % Monocytes % Eosinophils % Basophils % Nucleated RBC % Sodium 145 Potassium 3.8 Chloride 111 H Carbon Dioxide 22 Anion Gap 12 BUN 36 H Creatinine 2.5 H Creat Clearance w eGFR 26.85 Random Glucose 108 H Hemoglobin A1c % Calcium 8.7 Magnesium 2.1 Total Bilirubin 0.3 AST 17 ALT 17 Alkaline Phosphatase 104 C-Reactive Protein 7.4 H Total Protein 6.4 Albumin 2.3 L Urine Color Ltyellow Urine Appearance Clear Urine pH 5.0 Ur Specific [place] 1.012 Urine Protein 3+ H D Urine Glucose (UA) 2+ H Urine Ketones Negative Urine Blood 1+ H Urine Nitrite Negative Urine Bilirubin Negative Urine Urobilinogen Negative Ur Leukocyte Esterase Negative Urine WBC (Auto) 3 Urine RBC (Auto) <1 Ur Epithelial Cells Rare Urine Mucus Rare U Random Total Protein 640 H Ur Random Sodium Ur Random Potassium Ur Random Chloride Urine Creatinine 90.0 H Protein/Creatinin Ratio 7.1 Synovial Crystals 06/16/18 06/16/18 07:30 07:30 WBC 11.3 H RBC 4.08 Hgb 9.7 L Hct 31.0 L MCV 76.0 L MCH 23.8 L MCHC 31.4 L RDW 17.6 H Plt Count 223 MPV 8.6 Absolute Neuts (auto) 9.1 H Neutrophils % 80.2 Lymphocytes % 10.0 D Monocytes % 9.1 Eosinophils % 0.3 Basophils % 0.4 Nucleated RBC % 0 Sodium Potassium Chloride Carbon Dioxide Anion Gap BUN Creatinine Creat Clearance w eGFR Random Glucose Hemoglobin A1c % Calcium Magnesium Total Bilirubin AST ALT Alkaline Phosphatase C-Reactive Protein Cancelled Total Protein Albumin Urine Color Urine Appearance Urine pH Ur Specific [place] Urine Protein Urine Glucose (UA) Urine Ketones Urine Blood Urine Nitrite Urine Bilirubin Urine Urobilinogen Ur Leukocyte Esterase Urine WBC (Auto) Urine RBC (Auto) Ur Epithelial Cells Urine Mucus U Random Total Protein Ur Random Sodium Ur Random Potassium Ur Random Chloride Urine Creatinine Protein/Creatinin Ratio Synovial Crystals Active Medications Generic Name Dose Route Start Last Admin Trade Name Freq PRN Reason Stop Dose Admin Amlodipine Besylate 10 mg 06/15/18 15:30 06/15/18 15:59 Norvasc - PO 10 mg DAILY RONALD Administration Aripiprazole 10 mg 06/15/18 15:30 06/15/18 18:22 Abilify PO 10 mg DAILY RONALD Administration Atorvastatin Calcium 40 mg 06/15/18 22:00 06/15/18 21:13 Lipitor - PO 40 mg HS RONALD Administration Carvedilol 25 mg 06/15/18 22:00 06/15/18 21:13 Coreg - PO 25 mg BID RONALD Administration Heparin Sodium (Porcine) 5,000 unit 06/15/18 10:00 06/15/18 21:13 Heparin - SQ 5,000 unit BID RONALD Administration Hydralazine HCl 50 mg 06/15/18 15:30 06/16/18 06:46 Apresoline - PO 50 mg TID RONALD Administration Vancomycin HCl 1,500 mg/ 250 mls @ 166.667 mls/hr 06/15/18 16:45 Dextrose IVPB Q12H RONALD Protocol Potassium Chloride 20 meq 06/15/18 10:00 06/15/18 10:52 K-Dur - PO 20 meq DAILY RONALD Administration Prednisone 40 mg 06/15/18 10:00 06/15/18 10:53 Deltasone - PO 06/17/18 10:00 40 mg DAILY RONALD Administration Valsartan 320 mg 06/15/18 15:30 06/15/18 15:57 Diovan - PO 320 mg DAILY RONALD Administration ASSESSMENT/PLAN: 58 year-old male with a PMH significant for HTN, NIDDM, bipolar disease, and gout. Admitted for gout flare. Acute gout right knee --clinically improved after colchicine dosing yesterday --uric acid 6.8 --seen and evaluated by ortho, low suspicion for septic arthritis, synovial fluid culture pending; observe off antibiotics --physical therapy Hypertension --BP elevated --continue amlodipine and carvedilol; stop valsartan due to YOCASTA; increase hydralazine to QID Cardiomegaly --repeat CXR PA & lateral --echo ordered NIDDM --states he was diagnosed with DM in 1998; has never taken meds --HgbA1C 5.9 YOCASTA on CKD --in setting of NSAID use --Cr 2.5 on admission, 2.5 today, baseline 1.4 --06/15 renal: unremarkable --FeNa 0.4% --stop valsartan, avoid ACEI/ARB, neurotoxic agents --renal following FEN Fluids: PO intake adequate Electrolytes: replete as indicated Nutrition: regular diet DVT prophylaxis: subq heparin Physical therapy Dispo: continues to require inpatient care. Full code. Visit type - Emergency Visit Emergency Visit: Yes ED Registration Date: 06/15/18 Care time: The patient presented to the Emergency Department on the above date and was hospitalized for further evaluation of their emergent condition. - New Patient This patient is new to me today: No - Critical Care Critical Care patient: No
--- NOTE | 2018-06-16 09:33 | PN ---
Progress Note (short form) - Note Progress Note: 58 Year old male with Right knee pain, likely gouty inflammatory arthritis. The patient's pain has improved drastically overnight. He states that he is now able to ambulate and has been walking all morning. He states his desire to go to rehab or be discharged from the hospital soon. No overnight events. Denies any fever/chills or any numbness/tingling in Right lower extremity. PE: Right Lower Extremity: 2+ DP/PT, CR Brisk, L3-S1 SILT, No Calf TTP, minimal effusion, + EHL/FHL/GC/TA 5 /5 muscle strength, Painless AROM through 0-110 degree arc, No Erythema; Normal temperature of knee comparable to opposite leg, No signs of septic joint; Compartments soft. B/L Upper Extremity and Left Lower Extremity: Painless FROM, no signs of septic joint, neurovascularly intact. Compartments soft and compressible.) Vital Signs Period Temp Pulse Resp BP Sys/Castillo Pulse Ox Last 24 Hr 97.4 F-98.5 F 93-107 20-22 144-165/74-106 Microbiology 06/14/18 20:08 Synovial Fluid - Knee Gram Stain - Final 06/14/18 20:08 Synovial Fluid - Knee Body Fluid Culture - Preliminary NO AEROBIC GROWTH, 24 HRS Laboratory Last Values WBC 11.3 K/mm3 (4.0-10.0) H 06/16/18 07:30 RBC 4.08 M/mm3 (4.00-5.60) 06/16/18 07:30 Hgb 9.7 GM/dL (11.7-16.9) L 06/16/18 07:30 Hct 31.0 % (35.4-49) L 06/16/18 07:30 MCV 76.0 fl (80-96) L 06/16/18 07:30 MCH 23.8 pg (25.7-33.7) L 06/16/18 07:30 MCHC 31.4 g/dl (32.0-35.9) L 06/16/18 07:30 RDW 17.6 % (11.9-15.9) H 06/16/18 07:30 Plt Count 223 K/MM3 (134-434) 06/16/18 07:30 MPV 8.6 fl (7.5-11.1) 06/16/18 07:30 Absolute Neuts (auto) 9.1 K/mm3 (1.5-8.0) H 06/16/18 07:30 Neutrophils % 80.2 % (42.8-82.8) 06/16/18 07:30 Lymphocytes % 10.0 % (8-40) D 06/16/18 07:30 Monocytes % 9.1 % (3.8-10.2) 06/16/18 07:30 Eosinophils % 0.3 % (0-4.5) 06/16/18 07:30 Basophils % 0.4 % (0-2.0) 06/16/18 07:30 Nucleated RBC % 0 % (0-0) 06/16/18 07:30 ESR 95 mm/hr (0-20) H 06/14/18 20:12 PT with INR 13.30 SEC (9.7-13.0) H 06/15/18 06:20 INR 1.18 (0.83-1.09) H 06/15/18 06:20 PTT (Actin FS) 28.9 SECONDS (25.2-36.5) 06/15/18 06:20 Sodium 145 mmol/L (136-145) 06/16/18 07:30 Potassium 3.8 mmol/L (3.5-5.1) 06/16/18 07:30 Chloride 111 mmol/L (98-107) H 06/16/18 07:30 Carbon Dioxide 22 mmol/L (21-32) 06/16/18 07:30 Anion Gap 12 MMOL/L (8-16) 06/16/18 07:30 BUN 36 mg/dL (7-18) H 06/16/18 07:30 Creatinine 2.5 mg/dL (0.55-1.3) H 06/16/18 07:30 Creat Clearance w eGFR 26.85 (>60) 06/16/18 07:30 Random Glucose 108 mg/dL (74-106) H 06/16/18 07:30 Hemoglobin A1c % 5.5 % (4.2-6.3) 06/15/18 06:20 Uric Acid 6.8 mg/dL (2.6-7.2) 06/14/18 20:12 Calcium 8.7 mg/dL (8.5-10.1) 06/16/18 07:30 Phosphorus 2.8 mg/dL (2.5-4.9) 06/15/18 06:20 Magnesium 2.1 mg/dL (1.8-2.4) 06/16/18 07:30 Total Bilirubin 0.3 mg/dL (0.2-1) 06/16/18 07:30 AST 17 U/L (15-37) 06/16/18 07:30 ALT 17 U/L (13-61) 06/16/18 07:30 Alkaline Phosphatase 104 U/L (45-117) 06/16/18 07:30 C-Reactive Protein 7.4 MG/DL (0.00-0.3) H 06/16/18 07:30 Total Protein 6.4 g/dl (6.4-8.2) 06/16/18 07:30 Albumin 2.3 g/dl (3.4-5.0) L 06/16/18 07:30 Urine Color Ltyellow 06/15/18 16:30 Urine Appearance Clear 06/15/18 16:30 Urine pH 5.0 (5.0-8.0) 06/15/18 16:30 Ur Specific [place] 1.012 (1.001-1.035) 06/15/18 16:30 Urine Protein 3+ (NEGATIVE) H D 06/15/18 16:30 Urine Glucose (UA) 2+ (NEGATIVE) H 06/15/18 16:30 Urine Ketones Negative (NEGATIVE) 06/15/18 16:30 Urine Blood 1+ (NEGATIVE) H 06/15/18 16:30 Urine Nitrite Negative (NEGATIVE) 06/15/18 16:30 Urine Bilirubin Negative (<2.0 mg/dL) 06/15/18 16:30 Urine Urobilinogen Negative mg/dL (0.2-1.0) 06/15/18 16:30 Ur Leukocyte Esterase Negative (NEGATIVE) 06/15/18 16:30 Urine WBC (Auto) 3 /hpf (3-5) 06/15/18 16:30 Urine RBC (Auto) <1 /hpf (0-3) 06/15/18 16:30 Ur Epithelial Cells Rare /HPF (FEW) 06/15/18 16:30 Urine Mucus Rare 06/15/18 16:30 U Random Total Protein 640 mg/dl (0-11.9) H 06/15/18 16:30 Ur Random Sodium 19 MMOL/L (40-220) L 06/15/18 16:30 Ur Random Potassium 21.0 MMOL/L (25-125) L 06/15/18 16:30 Ur Random Chloride 17 MMOL/L (110-250) L 06/15/18 16:30 Urine Creatinine 90.0 mg/dL (2-36) H 06/15/18 16:30 Protein/Creatinin Ratio 7.1 MG/DL 06/15/18 16:30 Synovial Source Synovial fluid 06/14/18 20:08 Synovial WBC 30809 /mm3 06/14/18 20:08 Synovial RBC 1463 /mm3 06/14/18 20:08 Synovial Neutrophils 84 % 06/14/18 20:08 Synovial Lymphocytes 3 % 06/14/18 20:08 Synovial Monocytes 13 % 06/14/18 20:08 Synovial Crystals Negative 06/14/18 20:08 Assessment / Plan: 58 year old male with Gouty inflammatory arthritis of the Right knee. 1. Pain Control 2. DVT prophylaxis 3. D/C order for NPO 4. Physical therapy - Weight bearing as tolerated R Knee 5. Follow up final synovial cultures 6. Trend ESR/CRP 7. No further orthopedic intervention at this time - No signs of septic joint. 8. Patient may follow up in our office 1 week after discharge from the hospital/ rehab. Call [phone] for appointment. 9. Thank you for the consult. Please re-consult as necessary.
[2018-06-16 09:48] LABS: ERYTHROCYTE SEDIMENTATION RATE 100 mm/hr (0-20)
[2018-06-16] MEDS: VALSARTAN 160 MG TABLET (UD) PO SCH (12:11)
[2018-06-16] MEDS: POTASSIUM CHLORIDE TABS 20 MEQ TABLET.ER (FP) PO SCH (12:11)
[2018-06-16] MEDS: amLODIPine BESYLATE 10 MG TABLET (FP) PO SCH (12:12)
[2018-06-16] MEDS: ARIPiprazole 10 MG TABLET PO SCH (12:12)
[2018-06-16] MEDS: CARVEDILOL 25 MG TABLET (FP) PO SCH ×2 (12:12→21:26)
[2018-06-16] MEDS: HEPARIN NA (PORCINE) 5,000 UNITS/ML 1ML VIAL SQ SCH ×2 (12:14→21:26)
--- NOTE | 2018-06-16 14:41 | PN ---
Progress Note, Physician History of Present Illness: Pt seen and examined at bedside. He is awake and alert. He denies shortness of breath. - Current Medication List Current Medications: Active Medications Amlodipine Besylate (Norvasc -) 10 mg PO DAILY [facility] Last Admin: 06/16/18 12:12 Dose: 10 mg Aripiprazole (Abilify) 10 mg PO DAILY [facility] Last Admin: 06/16/18 12:12 Dose: 10 mg Atorvastatin Calcium (Lipitor -) 40 mg PO HS [facility] Last Admin: 06/15/18 21:13 Dose: 40 mg Carvedilol (Coreg -) 25 mg PO BID [facility] Last Admin: 06/16/18 12:12 Dose: 25 mg Heparin Sodium (Porcine) (Heparin -) 5,000 unit SQ BID [facility] Last Admin: 06/16/18 12:14 Dose: 5,000 unit Hydralazine HCl (Apresoline -) 50 mg PO TID [facility] Last Admin: 06/16/18 14:30 Dose: 50 mg Potassium Chloride (K-Dur -) 20 meq PO DAILY [facility] Last Admin: 06/16/18 12:11 Dose: 20 meq Valsartan (Diovan -) 320 mg PO DAILY [facility] Last Admin: 06/16/18 12:11 Dose: 320 mg - Objective Vital Signs: Vital Signs Temperature 97.8 F 06/16/18 14:19 Pulse Rate 103 H 06/16/18 14:19 Respiratory Rate 17 06/16/18 14:19 Blood Pressure 177/87 H 06/16/18 14:19 O2 Sat by Pulse Oximetry (%) 98 06/16/18 09:00 Constitutional: Yes: Calm Eyes: Yes: Conjunctiva Clear HENT: Yes: Atraumatic Neck: Yes: Supple Cardiovascular: Yes: S1, S2 Respiratory: Yes: CTA Bilaterally Gastrointestinal: Yes: Soft, Abdomen, Obese Musculoskeletal: Yes: Joint Swelling Edema: No Neurological: Yes: Oriented Psychiatric: Yes: Oriented Labs: CBC, BMP 06/16/18 07:30 06/16/18 07:30 INR, PTT INR 1.18 (0.83-1.09) H 06/15/18 06:20 Problem List - Problems (1) CKD (chronic kidney disease) Code(s): N18.9 - CHRONIC KIDNEY DISEASE, UNSPECIFIED (2) YOCASTA (acute kidney injury) Code(s): N17.9 - ACUTE KIDNEY FAILURE, UNSPECIFIED (3) Knee pain Code(s): M25.569 - PAIN IN UNSPECIFIED KNEE (4) CHF (congestive heart failure) Code(s): I50.9 - HEART FAILURE, UNSPECIFIED (5) Hypokalemia Code(s): E87.6 - HYPOKALEMIA (6) Knee pain, right Code(s): M25.561 - PAIN IN RIGHT KNEE Qualifiers: Qualified Code(s): M25.561 - Pain in right knee Assessment/Plan Current Medications Generic Name Dose Route Start Last Admin Trade Name Freq PRN Reason Stop Dose Admin Amlodipine Besylate 10 mg 06/15/18 15:30 06/16/18 12:12 Norvasc - PO 10 mg DAILY RONALD Administration Aripiprazole 10 mg 06/15/18 15:30 06/16/18 12:12 Abilify PO 10 mg DAILY RONALD Administration Atorvastatin Calcium 40 mg 06/15/18 22:00 06/15/18 21:13 Lipitor - PO 40 mg HS RONALD Administration Carvedilol 25 mg 06/15/18 22:00 06/16/18 12:12 Coreg - PO 25 mg BID RONALD Administration Heparin Sodium (Porcine) 5,000 unit 06/15/18 10:00 06/16/18 12:14 Heparin - SQ 5,000 unit BID RONALD Administration Hydralazine HCl 50 mg 06/15/18 15:30 06/16/18 14:30 Apresoline - PO 50 mg TID RONALD Administration Potassium Chloride 20 meq 06/15/18 10:00 06/16/18 12:11 K-Dur - PO 20 meq DAILY RONALD Administration Valsartan 320 mg 06/15/18 15:30 06/16/18 12:11 Diovan - PO 320 mg DAILY RONALD Administration Impression 1. YOCASTA 2. CKD 3. r/o septic knee 4. HTN 5. CHF 6. hypokalemia 7. hx bipolar 8. gout 9. DM Plan - cont valsartan - keep off of nsaids - renal function is unchanged from yesterday - may be progression of kidney disease vs yocasta from nsaids - pt does have nephrotic proteinuria - discussed kidney biopsy once more stable - monitor vanco levels Dr Raphael
--- NOTE | 2018-06-16 15:27 | PN ---
Progress Note (short form) - Note Progress Note: ID Consult dictated Probable acute flare gouty arthritis Septic arthritis unlikely Continue tx gout D/C antibiotic HIV test, GC chlamydia ( pt consents)
--- NOTE | 2018-06-16 15:53 | CONS ---
INFECTIOUS DISEASE CONSULTATION DATE OF CONSULTATION: DATE OF DICTATION: 06/16/2018 The patient is a 58-year-old male with a history of gouty arthritis, who is evaluated for possible septic arthritis of the right knee. The patient presents with a 2-week history of worsening right knee pain. He described the pain as sharp and localized to the right knee. He had experienced pain in his right great toe prior to that. The pain became progressively severe. He was unable to ambulate. He denies any associated fevers or chills, nausea, vomiting, or dysuria. He denies any traumatic injury to his knee. No corticosteroid injections. No tick bites. He denies history of IV drug use, recent febrile illness, or recent antibiotic therapy. PAST MEDICAL HISTORY: Positive for gouty arthritis. He has had previous admissions for this. He reports being on allopurinol, however, had not been compliant with it. Past medical history also positive for diabetes mellitus, hypertension, bipolar disorder. ALLERGIES: No known allergies. MEDICATIONS: Include Tylenol, amlodipine, Abilify, Lipitor, Coreg, colchicine, hydralazine, labetalol. SOCIAL HISTORY: Lives in the community, nonsmoker. Denies history of injection drug use. HIV status not known. SYSTEMS REVIEW: Neurologic: No loss of consciousness, seizure activity, focal weakness. Cardiac: Negative chest pain or palpitations. Respiratory: Negative cough or sputum production. Gastrointestinal: Negative vomiting or diarrhea. Genitourinary: Negative for urinary tract infection. LABORATORY DATA: White count 11.3, hematocrit 31, platelet count 223. BUN 36, creatinine 2.5. Uric acid 6.8. C-reactive protein 7.4. ESR 100. Urinalysis: White cells 3. Synovial fluid: White blood cells 32,000; neutrophils 84%; Gram stain negative; organisms negative; leukocytes, crystals negative. X-ray of the knee: Negative for fracture or dislocation. PHYSICAL EXAMINATION: General: He is awake and alert. He is morbidly obese. Vital Signs: Temperature 97.8; blood pressure 177/87; pulse 103, regular; respirations 17 per minute. HEENT: Sclerae are anicteric. Heart: Sounds S1, S2. Lungs: Clear. Abdomen: Obese, soft, nontender. Right Knee: There is a right knee effusion. It is warm to touch. There is no erythema. No tenderness elicited. No other joint swelling is noted. IMPRESSION: 1. Probable acute flare of gouty arthritis. 2. Septic arthritis unlikely. Continue treatment for acute gouty arthritis. Would discontinue antibiotic. Obtain PCR for GC and chlamydia. HIV test (patient consents). Thank you for the kind referral. GENIE ALBARRAN M.D. [id number]
[2018-06-16] MEDS: ATORVASTATIN CA 40 MG TABLET (FP) PO SCH (21:26)
[2018-06-17 07:32] LABS: BASO % 0.7 % (0-2.0); EOS % 4.2 % (0-4.5); HEMATOCRIT 31.7 % (35.4-49); HEMOGLOBIN 9.9 GM/dL (11.7-16.9); LYMPH % 22.2 % (8-40); MCH 23.9 pg (25.7-33.7); MCHC 31.4 g/dl (32.0-35.9); MEAN PLT VOLUME 8.7 fl (7.5-11.1); MONO % 8.4 % (3.8-10.2); NEUT % 64.5 % (42.8-82.8); PLATELET COUNT 243 K/MM3 (134-434); RBC 4.17 M/mm3 (4.00-5.60); RDW 17.3 % (11.9-15.9); WHITE BLOOD COUNT 6.4 K/mm3 (4.0-10.0)
[2018-06-17 08:11] LABS: ALBUMIN 2.3 g/dl (3.4-5.0); ALK PHOS 99 U/L (45-117); ANION GAP 11 MMOL/L (8-16); BILIRUBIN,TOTAL 0.2 mg/dL (0.2-1); BLOOD UREA NITROGEN 36 mg/dL (7-18); CALCIUM 8.3 mg/dL (8.5-10.1); CHLORIDE 111 mmol/L (98-107); CO2 23 mmol/L (21-32); CREATININE 2.5 mg/dL (0.55-1.3); GLUCOSE,RANDOM 96 mg/dL (74-106); POTASSIUM 3.6 mmol/L (3.5-5.1); SGOT/AST 28 U/L (15-37); SGPT/ALT 32 U/L (13-61); SODIUM 145 mmol/L (136-145); TOT PROT 6.2 g/dl (6.4-8.2)
[2018-06-17] MEDS ORDERED: PT OWN MED DRAWER 7, Y5N ONE ×2 (11:03→11:39)
[2018-06-17] MEDS: HEPARIN NA (PORCINE) 5,000 UNITS/ML 1ML VIAL SQ SCH ×2 (11:41→21:11)
[2018-06-17] MEDS: amLODIPine BESYLATE 10 MG TABLET (FP) PO SCH (11:42)
[2018-06-17] MEDS: hydrALAZINE HCL 50 MG TABLET (FP) PO SCH ×4 (11:42→21:11)
[2018-06-17] MEDS: CARVEDILOL 25 MG TABLET (FP) PO SCH ×2 (11:42→21:11)
[2018-06-17] MEDS: VALSARTAN 160 MG TABLET (UD) PO SCH (11:42)
[2018-06-17] MEDS: ARIPiprazole 10 MG TABLET PO SCH (11:43)
--- NOTE | 2018-06-17 11:47 | PN ---
Physical Exam: SUBJECTIVE: Patient seen and examined OBJECTIVE: Vital Signs Period Temp Pulse Resp BP Sys/Castillo Pulse Ox Last 24 Hr 97.7 F-98.1 F 82-103 17-21 139-187/87-103 GENERAL: The patient is awake, alert, and fully oriented, in no acute distress. HEAD: Normal with no signs of trauma. EYES: PERRL, extraocular movements intact, sclera anicteric, conjunctiva clear. No ptosis. ENT: Ears normal, nares patent, oropharynx clear without exudates, moist mucous membranes. NECK: Trachea midline, full range of motion, supple. LUNGS: Breath sounds equal, clear to auscultation bilaterally, no wheezes, no crackles, no accessory muscle use. HEART: Regular rate and rhythm, S1, S2 without murmur, rub or gallop. ABDOMEN: Soft, nontender, nondistended, normoactive bowel sounds, no guarding, no rebound, no hepatosplenomegaly, no masses. EXTREMITIES: 2+ pulses, warm, well-perfused, no edema. NEUROLOGICAL: Cranial nerves II through XII grossly intact. Normal speech, gait not observed. PSYCH: Normal mood, normal affect. SKIN: Warm, dry, normal turgor, no rashes or lesions noted Laboratory Results - last 24 hr 06/17/18 06/17/18 06:30 06:30 WBC 6.4 RBC 4.17 Hgb 9.9 L Hct 31.7 L MCV 76.0 L MCH 23.9 L MCHC 31.4 L RDW 17.3 H Plt Count 243 MPV 8.7 Absolute Neuts (auto) 4.2 Neutrophils % 64.5 Lymphocytes % 22.2 D Monocytes % 8.4 Eosinophils % 4.2 D Basophils % 0.7 Nucleated RBC % 0 Sodium 145 Potassium 3.6 Chloride 111 H Carbon Dioxide 23 Anion Gap 11 BUN 36 H Creatinine 2.5 H Creat Clearance w eGFR 26.85 Random Glucose 96 Calcium 8.3 L Phosphorus 4.0 Magnesium 2.0 Total Bilirubin 0.2 AST 28 ALT 32 Alkaline Phosphatase 99 Total Protein 6.2 L Albumin 2.3 L Active Medications Generic Name Dose Route Start Last Admin Trade Name Freq PRN Reason Stop Dose Admin Amlodipine Besylate 10 mg 06/15/18 15:30 06/17/18 11:42 Norvasc - PO 10 mg DAILY RONALD Administration Aripiprazole 10 mg 06/15/18 15:30 06/17/18 11:43 Abilify PO 10 mg DAILY RONALD Administration Atorvastatin Calcium 40 mg 06/15/18 22:00 06/16/18 21:26 Lipitor - PO 40 mg HS RONALD Administration Carvedilol 25 mg 06/15/18 22:00 06/17/18 11:42 Coreg - PO 25 mg BID RONALD Administration Heparin Sodium (Porcine) 5,000 unit 06/15/18 10:00 06/17/18 11:41 Heparin - SQ 5,000 unit BID RONALD Administration Hydralazine HCl 50 mg 06/16/18 18:00 06/17/18 11:42 Apresoline - PO 50 mg QID RONALD Administration Potassium Chloride 20 meq 06/15/18 10:00 06/16/18 12:11 K-Dur - PO 20 meq DAILY RONALD Administration Valsartan 320 mg 06/17/18 11:00 06/17/18 11:42 Diovan - PO 320 mg DAILY RONALD Administration ASSESSMENT/PLAN: h/o CHF 1998 CXR done Echo done
[2018-06-17] MEDS: POTASSIUM CHLORIDE TABS 20 MEQ TABLET.ER (FP) PO SCH (11:53)
--- NOTE | 2018-06-17 12:07 | ECHO ---
Version: 1 Name: NEREIDA RIVERA Exam: Adult Echocardiogram Study Date: 06/17/2018, 8:17 AM Age: 58 Years MMode/2D Measurements & Calculations IVSd: 1.31 cm LVIDs: 3.4 cm LVIDd: 5.0 cm LVPWd: 1.15 cm LVOT diam: 2.40 cm Ao root diam: 3.0 cm LA dimension: 3.8 cm Procedure A two-dimensional transthoracic echocardiogram with color flow and Doppler was performed. Left Ventricle The left ventricular size, thickness and function are normal. The left ventricular ejection fraction is normal. E/A reversal consistent with but not diagnostic of poor LV compliance. The left ventricular wall motion is normal. Right Ventricle The right ventricle is not well visualized. Atria Normal left and right atrial size and function. Mitral Valve There is mild mitral valve thickening. The mitral valve is not well visualized. There is no mitral v alve stenosis. There is trace mitral regurgitation. Tricuspid Valve The tricuspid valve is not well visualized. There is no tricuspid stenosis. There was insufficient T R detected to calculate RV systolic pressure. Aortic Valve The aortic valve is not well visualized. No hemodynamically significant valvular aortic stenosis. No aortic regurgitation is present. Great Vessels The aortic root is normal size. Pericardium/Pleura There is no pericardial effusion. Summary Statements The left ventricular size, thickness and function are normal The left ventricular ejection fraction is normal. The left ventricular wall motion is normal. There is trace mitral regurgitation. E/A reversal consistent with but not diagnostic of poor LV compliance There was insufficient TR detected to calculate RV systolic pressure. MD Kiran Coello 06/17/2018, 12:07 PM Ordering Physician: Maryann Mojica Performed By: Cynthia Mendez Measurements and Calculations Med Peak E' Chris: 3 .4 cm/sec
--- NOTE | 2018-06-17 14:50 | PN ---
Progress Note, Physician History of Present Illness: Pt seen and examined at bedside. He is awake and alert. He denies shortness of breath. He feels that the knee pain is improved. - Current Medication List Current Medications: Active Medications Amlodipine Besylate (Norvasc -) 10 mg PO DAILY [facility] Last Admin: 06/17/18 11:42 Dose: 10 mg Aripiprazole (Abilify) 10 mg PO DAILY [facility] Last Admin: 06/17/18 11:43 Dose: 10 mg Atorvastatin Calcium (Lipitor -) 40 mg PO HS [facility] Last Admin: 06/16/18 21:26 Dose: 40 mg Carvedilol (Coreg -) 25 mg PO BID [facility] Last Admin: 06/17/18 11:42 Dose: 25 mg Heparin Sodium (Porcine) (Heparin -) 5,000 unit SQ BID [facility] Last Admin: 06/17/18 11:41 Dose: 5,000 unit Hydralazine HCl (Apresoline -) 50 mg PO QID [facility] Last Admin: 06/17/18 14:23 Dose: 50 mg Potassium Chloride (K-Dur -) 20 meq PO DAILY [facility] Last Admin: 06/17/18 11:53 Dose: 20 meq Valsartan (Diovan -) 320 mg PO DAILY [facility] Last Admin: 06/17/18 11:42 Dose: 320 mg - Objective Vital Signs: Vital Signs Temperature 97.7 F 06/17/18 09:00 Pulse Rate 90 06/17/18 13:51 Respiratory Rate 20 06/17/18 09:00 Blood Pressure 132/81 06/17/18 13:51 O2 Sat by Pulse Oximetry (%) 98 06/16/18 09:00 Constitutional: Yes: Calm Eyes: Yes: Conjunctiva Clear HENT: Yes: Atraumatic Neck: Yes: Supple Cardiovascular: Yes: S1, S2 Respiratory: Yes: CTA Bilaterally Gastrointestinal: Yes: Soft, Abdomen, Obese ...Rectal Exam: Yes: WNL Genitourinary: Yes: WNL Musculoskeletal: Yes: WNL Edema: Yes Edema: LLE: Trace, RLE: Trace Neurological: Yes: Oriented Psychiatric: Yes: Oriented Labs: CBC, BMP 06/17/18 06:30 06/17/18 06:30 INR, PTT INR 1.18 (0.83-1.09) H 06/15/18 06:20 Problem List - Problems (1) CKD (chronic kidney disease) Code(s): N18.9 - CHRONIC KIDNEY DISEASE, UNSPECIFIED (2) YOCASTA (acute kidney injury) Code(s): N17.9 - ACUTE KIDNEY FAILURE, UNSPECIFIED (3) Knee pain Code(s): M25.569 - PAIN IN UNSPECIFIED KNEE (4) CHF (congestive heart failure) Code(s): I50.9 - HEART FAILURE, UNSPECIFIED (5) Hypokalemia Code(s): E87.6 - HYPOKALEMIA (6) Knee pain, right Code(s): M25.561 - PAIN IN RIGHT KNEE Qualifiers: Chronicity: acute Qualified Code(s): M25.561 - Pain in right knee Assessment/Plan Current Medications Generic Name Dose Route Start Last Admin Trade Name Freq PRN Reason Stop Dose Admin Amlodipine Besylate 10 mg 06/15/18 15:30 06/17/18 11:42 Norvasc - PO 10 mg DAILY [facility] Administration Aripiprazole 10 mg 06/15/18 15:30 06/17/18 11:43 Abilify PO 10 mg DAILY [facility] Administration Atorvastatin Calcium 40 mg 06/15/18 22:00 06/16/18 21:26 Lipitor - PO 40 mg HS [facility] Administration Carvedilol 25 mg 06/15/18 22:00 06/17/18 11:42 Coreg - PO 25 mg BID [facility] Administration Heparin Sodium (Porcine) 5,000 unit 06/15/18 10:00 06/17/18 11:41 Heparin - SQ 5,000 unit BID [facility] Administration Hydralazine HCl 50 mg 06/16/18 18:00 06/17/18 14:23 Apresoline - PO 50 mg QID [facility] Administration Potassium Chloride 20 meq 06/15/18 10:00 06/17/18 11:53 K-Dur - PO 20 meq DAILY [facility] Administration Valsartan 320 mg 06/17/18 11:00 06/17/18 11:42 Diovan - PO 320 mg DAILY [facility] Administration Impression 1. YOCASTA 2. CKD 3. r/o septic knee 4. HTN 5. CHF 6. hypokalemia 7. hx bipolar 8. gout 9. DM Plan - repeat ua - cont valsartan - repeat ua and prt to stop attacher ratio - again discussed kidney biopsy, pt will follow in office - renal function has not changed since admission - avoid nsaids - pt does have nephrotic proteinuria Dr Raphael
[2018-06-17 15:51] LABS: GLUCOSE,SYNOVIAL FLUID 96 mg/dL; TOTAL PROTEIN,SYNOVIAL FLUID 3 gm/dL
[2018-06-17 17:28] LABS: URINE APPEARANCE CLEAR; URINE BILIRUBIN NEGATIVE (<2.0 mg/dL); URINE COLOR STRAW; URINE GLUCOSE (UA) 1+ (NEGATIVE); URINE KETONE NEGATIVE (NEGATIVE); URINE LEUK ESTERASE NEGATIVE (NEGATIVE); URINE NITRITE NEGATIVE (NEGATIVE); URINE UROBILINOGEN NEGATIVE mg/dL (0.2-1.0)
[2018-06-17 17:40] LABS: URINE PROTEIN 2+ (NEGATIVE)
[2018-06-17 17:42] LABS: EPI CELLS RARE /HPF (FEW); URINE BACTERIA RARE /hpf (NONE SEEN); URINE MUCUS RARE
[2018-06-17 18:07] LABS: RATIO URIN PROTEIN/URIN CREAT 4.11 MG/DL
[2018-06-17] MEDS: ATORVASTATIN CA 40 MG TABLET (FP) PO SCH (21:11)
[2018-06-18] MEDS ORDERED: PT OWN MED DRAWER 7, Y5N ONE (09:27)
[2018-06-18] MEDS: CARVEDILOL 25 MG TABLET (FP) PO SCH (10:56)
[2018-06-18] MEDS: POTASSIUM CHLORIDE TABS 20 MEQ TABLET.ER (FP) PO SCH (10:56)
[2018-06-18] MEDS: amLODIPine BESYLATE 10 MG TABLET (FP) PO SCH (10:56)
[2018-06-18] MEDS: VALSARTAN 160 MG TABLET (UD) PO SCH (10:56)
[2018-06-18] MEDS: hydrALAZINE HCL 50 MG TABLET (FP) PO SCH ×3 (10:56→17:19)
[2018-06-18] MEDS: ARIPiprazole 10 MG TABLET PO SCH (10:57)
[2018-06-18] MEDS: HEPARIN NA (PORCINE) 5,000 UNITS/ML 1ML VIAL SQ SCH (10:57)
[2018-06-18 14:08] VITALS: TEMP 98.2
--- NOTE | 2018-06-18 15:24 | PN ---
Progress Note (short form) - Note Progress Note: covering dr oneal Problems 1. YOCASTA 2. CKD 3. r/o septic knee 4. HTN 5. CHF 6. hypokalemia 7. hx bipolar 8. gout 9. DM Current Medications Amlodipine Besylate (Norvasc -) 10 mg PO DAILY [facility] Last Admin: 06/18/18 10:56 Dose: 10 mg Aripiprazole (Abilify) 10 mg PO DAILY [facility] Last Admin: 06/18/18 10:57 Dose: 10 mg Atorvastatin Calcium (Lipitor -) 40 mg PO HS [facility] Last Admin: 06/17/18 21:11 Dose: 40 mg Carvedilol (Coreg -) 25 mg PO BID [facility] Last Admin: 06/18/18 10:56 Dose: 25 mg Heparin Sodium (Porcine) (Heparin -) 5,000 unit SQ BID [facility] Last Admin: 06/18/18 10:57 Dose: 5,000 unit Hydralazine HCl (Apresoline -) 50 mg PO QID [facility] Last Admin: 06/18/18 14:34 Dose: 50 mg Valsartan (Diovan -) 320 mg PO DAILY [facility] Last Admin: 06/18/18 10:56 Dose: 320 mg Last Vital Signs Temp Pulse Resp BP Pulse Ox 98.2 F 91 H 18 145/94 99 06/18/18 14:07 06/18/18 14:07 06/18/18 14:07 06/18/18 14:07 06/17/18 21:00 CBC, BMP 06/17/18 06:30 06/17/18 06:30 IMP- renal function unchanged Plan - repeat ua - cont valsartan - repeat ua and prt to investigator fraud ratio - again discussed kidney biopsy, pt will follow in office - renal function has not changed since admission - avoid nsaids - pt does have nephrotic proteinuria
[2018-06-18 17:19] VITALS: BP 168/94; PULSE 96
== END 2018-06-18 17:45 | DRG 683 ==
LOC: JER 19:09 → JERBED 22:48 → UNDOADMOB 23:59 → JERBED 23:59 → J5S 06-15 02:36 → OBSVTOIN 06-15 16:35
PROVIDERS: ADMIT Internal Medicine; ATTEND Nurse Practitioner Acute Care
PROC: 0S9C3ZX Drainage of Right Knee Joint, Percutaneous Approach, Diagnostic (ICD-10-PCS; principal; 2018-06-14)
DX: N17.9 Acute kidney failure, unspecified (principal); I13.0 Hypertensive heart and chronic kidney disease with heart failure and stage 1 through stage 4 chronic kidney disease, or unspecified chronic kidney disease; M10.9 Gout, unspecified; M17.11 Unilateral primary osteoarthritis, right knee; E11.22 Type 2 diabetes mellitus with diabetic chronic kidney disease; N18.9 Chronic kidney disease, unspecified; E86.0 Dehydration; E87.6 Hypokalemia; F31.9 Bipolar disorder, unspecified; R00.0 Tachycardia, unspecified; E66.9 Obesity, unspecified; Z68.39 Body mass index [BMI] 39.0-39.9, adult
CPT/HCPCS: 36415; 71045-TC-FY; 71046-TC-FY; 73562-TC-RT-FY; 76775-TC; 76856-TC; 80048; 80053; 81003; 81015; 82150; 82436; 82570; 82945; 83036; 83615; 83735; 83880; 84100; 84133; 84156; 84157; 84300; 84550; 85025; 85027; 85610; 85651; 85730; 86038; 86140; 87040; 87070; 87075; 87205; 87389; 89051; 89060; 93005; 93010; 93306-TC; 97116-GP; 97162-GP; 99284-25; G0378; J0131; J1644; J7030

== ENCOUNTER 2018-07-24 01:47 | Inpatient (IN) | payer OTHER ==
--- NOTE | 2018-07-24 01:32 | PDOC ---
History of Present Illness - General Chief Complaint: Chest Pain Stated Complaint: CHEST PAIN/DIFF BREATHING Time Seen by Provider: 07/24/18 01:52 EDT History Source: Patient, EMS Exam Limitations: No Limitations - History of Present Illness Initial Comments: 07/24/18 01:31 EST The patient is a 58M with a PMH of CHF who presents to the ER with difficulty breathing. EMS provides the history and states that the patient had acute onset SOB. The patient states that he has not taken his medications in 1 month. He admits to CP which he cannot describe further, SOB, but denies nausea, vomiting , fevers, chills. Past History - Past Medical History Allergies/Adverse Reactions: Allergies Allergy/AdvReac Type Severity Reaction Status Date / Time No Known Allergies Allergy Verified 07/24/18 01:15 EST Home Medications: Ambulatory Orders Amlodipine Besylate 10 mg PO DAILY 04/24/17 Aripiprazole [Abilify] 10 mg PO DAILY 04/24/17 Atorvastatin Ca [Lipitor] 40 mg PO HS 04/24/17 Carvedilol 25 mg PO BID 04/24/17 Hydralazine HCl 50 mg PO TID 04/24/17 Valsartan 320 mg PO DAILY 04/24/17 Anemia: No Asthma: No Cancer: No Cardiac Disorders: Yes CVA: No COPD: No CHF: Yes Dementia: No Diabetes: Yes GI Disorders: No Disorders: No HTN: Yes Hypercholesterolemia: No Liver Disease: No Psychiatric Problems: Yes (bipolar) Seizures: No Thyroid Disease: No - Surgical History Abdominal Surgery: No Appendectomy: No Cardiac Surgery: No Cholecystectomy: No Lung Surgery: No Neurologic Surgery: No Orthopedic Surgery: No - Immunization History Immunization Up to Date: Yes - Suicide/Smoking/Psychosocial Hx Smoking History: Unknown if ever smoked Have you smoked in the past 12 months: No Number of Cigarettes Smoked Daily: 0 Information on smoking cessation initiated: No Hx Alcohol Use: No Drug/Substance Use Hx: No Substance Use Type: None Hx Substance Use Treatment: No Review of Systems - Review of Systems Able to Perform ROS?: Yes (Limited) Comments:: 07/24/18 01:54 EST GENERAL/CONSTITUTIONAL: No fever or chills. No weakness. HEAD, EYES, EARS, NOSE AND THROAT: No change in vision. No ear pain or discharge. No sore throat. CARDIOVASCULAR: Positive for chest pain. No palpitations or lightheadedness. RESPIRATORY: Positive for SOB. No cough, wheezing, or hemoptysis. GASTROINTESTINAL: No nausea, vomiting, diarrhea, constipation, or abdominal pain. GENITOURINARY: No dysuria, frequency, hematuria, or change in urination. MUSCULOSKELETAL: No joint or muscle swelling or pain. No neck or back pain. SKIN: No rash or lesions. NEUROLOGIC: No headache, numbness, tingling, focal weakness, loss of consciousness, or change in strength/sensation. Is the patient limited Latvian proficient: No *Physical Exam - Vital Signs Last Vital Signs Temp Pulse Resp BP Pulse Ox 97.8 F 70 24 H 212/147 H 100 07/24/18 01:55 EDT 07/24/18 01:55 EDT 07/24/18 01:55 EDT 07/24/18 01:55 EDT 07/24/18 01:12 EST - Physical Exam Comments: 07/24/18 01:56 EST GENERAL: Well developed, well nourished. Morbidly obese. Awake and alert. In moderate distress. HEENT: Normocephalic, atraumatic. Hearing grossly normal. Moist mucous membranes. PERRLA, EOMI. No conjunctival pallor. Sclera are non-icteric. NECK: Supple. Full ROM. CARDIOVASCULAR: Regular rate and rhythm. No murmurs, rubs, or gallops. PULMONARY: Mild respiratory distress. Decreased lung sounds diffusely with expiratory wheezing appreciated in bibasilar lung dixon. ABDOMINAL: Soft. Non-tender. Distended. No rebound or guarding. GENITOURINARY: No CVA tenderness bilaterally. MUSCULOSKELETAL: Normal range of motion at all joints. No bony deformities or tenderness. EXTREMITIES: No cyanosis. No clubbing. No edema. No calf tenderness or swelling. SKIN: Warm and dry. Normal capillary refill. No rashes. No jaundice. NEUROLOGICAL: Alert, awake, appropriate. Cranial nerves 2-12 grossly intact. Normal speech. Gait is normal without ataxia. PSYCHIATRIC: Cooperative. Good eye contact. Appropriate mood and affect. Heart Score/ECG Review #1 General ECG Interpretation: Sinus Rhythm, Normal Rate, Normal Intervals, No acute ischemic changes Compared to previous ECG there are: Changes noted 07/24/18 01:57 EST Sinus tach vent rate 115 ME 136 QRS 92 QTc 497 No STD or ROSAS Frequent PVC's noted, trigeminy for part of EKG, changed from prior No signs of acute ischemia ED Treatment Course - LABORATORY CBC & Chemistry Diagram: 07/24/18 01:30 EST 07/24/18 01:30 EST - RADIOLOGY Radiology Studies Ordered: Category Date Time Status CHEST X-RAY PORTABLE* [RAD] Stat Radiology 07/24/18 01:11 Ordered Medical Decision Making - Medical Decision Making 07/24/18 01:58 EST The patient is a 58 M with a PMH of CHF who presents with acute SOB. Bipap placed, nitro given as BP is 200's/140's. Lasix given and pt placed on nitro drip. Pending labs and CXR. EKG noted for trigeminy, also noted on monitor. Pt more comfortable appearing on reexamination. Will admit for CHF exacerbation. 07/24/18 04:41 BNP elevated. Cr 3.4. CXR agrees with clinical dx of flash pulmonary edema. Pt endorsed to Dr. Stroud for admission. *DC/Admit/Observation/Transfer Diagnosis at time of Disposition: CHF (congestive heart failure) Qualifiers: Heart failure type: unspecified Heart failure chronicity: acute on chronic Qualified Code(s): I50.9 - Heart failure, unspecified - Discharge Dispostion Condition at time of disposition: Guarded Decision to Admit order: Yes - Referrals - Patient Instructions - Post Discharge Activity
[2018-07-24 01:38] LABS: BASO % 0.7 % (0-2.0); EOS % 1.8 % (0-4.5); HEMATOCRIT 33.4 % (35.4-49); LYMPH % 6.8 % (8-40); MCH 25.1 pg (25.7-33.7); MCHC 32.8 g/dl (32.0-35.9); MEAN CELL VOLUME 76.7 fl (80-96); MEAN PLT VOLUME 9.5 fl (7.5-11.1); MONO % 7.9 % (3.8-10.2); NEUT % 82.8 % (42.8-82.8); PLATELET COUNT 290 K/MM3 (134-434); RBC 4.36 M/mm3 (4.00-5.60); RDW 18.1 % (11.9-15.9); WHITE BLOOD COUNT 13.6 K/mm3 (4.0-10.0)
[~2018-07-24 01:47] MED LIST: FUROSEMIDE 40 MG/4 ML INJECTABLE VIAL IVPUSH ONE; NITROGLYCERIN 50 MG/10 ML VIAL IVPB SCH; NITROGLYCERIN SUBLINGUAL 1/150 0.4 MG TAB SL ONE
[2018-07-24 01:52] LABS: INR 0.98 (0.83-1.09); PROTHROMBIN TIME (PATIENT) 11.6 SEC (9.7-13.0)
--- NOTE | 2018-07-24 01:54 | PDOC ---
Attending Attestation - HPI HPI: 07/24/18 01:57 EST The patient is a 58 year old male with past medical history significant for CHF , HTN, DM, Gout, and CKD presents to the emergency department in respiratory distress. The patient presents with acute onset of shortness of breath. The patient reports hes been noncompliant with with lasix for the past 1 month. Allergies: NKA Social history: No past or present use of tobacco, alcohol or recreational drug use. PCP: Dr Del Angel [facility] - Physicial Exam PE: 07/24/18 01:59 EST GENERAL: Awake, alert, and fully oriented, In mild distress, relief noted with O2. Patient was placed on BiPap in the ER. Patient is ambulating around the stretcher. HEAD: No signs of trauma EYES: PERRLA, EOMI, sclera anicteric, conjunctiva clear ENT: Auricles normal inspection, hearing grossly normal, nares patent, oropharynx clear without exudates. Moist mucosa NECK: Normal ROM, supple, no lymphadenopathy, JVD, or masses LUNGS: No crackles appreciated. Minimal wheezing, Breath sounds equal, clear to auscultation bilaterally. HEART: Regular rate and rhythm, normal S1 and S2, no murmurs, rubs or gallops ABDOMEN: + Morbidly obese. Soft, nontender, No guarding, no rebound. No masses EXTREMITIES: No pitting edema. Normal range of motion, no edema. No clubbing or cyanosis. No cords, erythema, or tenderness NEUROLOGICAL: Cranial nerves II through XII grossly intact. Normal speech. SKIN: Warm, Dry, normal turgor, no rashes or lesions noted. - Medical Decision Making 07/24/18 01:57 EST Documentation prepared by Keli Osullivan, acting as medical biller coder for Sujatha Meier MD. <Keli Osullivan - Last Filed: 07/24/18 02:13> - Resident Resident Name: Jimy Fuller - ED Attending Attestation I have performed the following: I have examined & evaluated the patient, The case was reviewed & discussed with the resident, I agree w/resident's findings & plan - Medical Decision Making 07/24/18 02:32 Pt has elevated BUN and Cr. We treated with 80mg lasix IV. We will refrain from using more lasix. Rather we will use nitro SL as well as drip and hydrate patient. Pt will be admitted <Sujatha Meier - Last Filed: 07/29/18 20:26>
[2018-07-24 02:10] LABS: ALBUMIN 2.3 g/dl (3.4-5.0); ALK PHOS 124 U/L (45-117); ANION GAP 9 MMOL/L (8-16); BILIRUBIN,TOTAL 0.2 mg/dL (0.2-1); BLOOD UREA NITROGEN 50 mg/dL (7-18); CALCIUM 7.9 mg/dL (8.5-10.1); CHLORIDE 112 mmol/L (98-107); CO2 24 mmol/L (21-32); CREATININE 3.7 mg/dL (0.55-1.3); GLUCOSE,RANDOM 122 mg/dL (74-106); POTASSIUM 3.8 mmol/L (3.5-5.1); SGOT/AST 23 U/L (15-37); SGPT/ALT 20 U/L (13-61); SODIUM 146 mmol/L (136-145); TOT PROT 6.9 g/dl (6.4-8.2)
[2018-07-24] MEDS ORDERED: NITROGLYCERIN 50 MG/10 ML VIAL IVPB ONE (02:17)
[2018-07-24] MEDS ORDERED: NITROGLYCERIN SUBLINGUAL 1/150 0.4 MG TAB SL ONE (02:27)
[2018-07-24] MEDS ORDERED: NITROGLYCERIN 50MG/D5W 250ML 50 MG/250 ML ML IVPB SCH (02:30)
[2018-07-24] MEDS ORDERED: SODIUM CHLORIDE 0.9% 500 ML INFUS.BAG IV ONE (03:01)
[2018-07-24 06:00] LABS: ANION GAP 9 MMOL/L (8-16); BLOOD UREA NITROGEN 54 mg/dL (7-18); CALCIUM 7.5 mg/dL (8.5-10.1); CHLORIDE 116 mmol/L (98-107); CO2 23 mmol/L (21-32); CREATININE 3.9 mg/dL (0.55-1.3); GLUCOSE,RANDOM 111 mg/dL (74-106); POTASSIUM 4.2 mmol/L (3.5-5.1); SODIUM 147 mmol/L (136-145)
[2018-07-24 06:15] LABS: ARTERIAL BLOOD GAS BASE EXCESS -4.4 meq/l (-2-2); ARTERIAL BLOOD GAS pH 7.34 (7.35-7.45); CARBOXYHEMOGLOBIN 1.3 gm% (0.5-2.0)
[2018-07-24] MEDS ORDERED: hydrALAZINE HCL 50 MG TABLET (FP) PO ONE (07:00)
[2018-07-24] MEDS ORDERED: ATORVASTATIN CA 40 MG TABLET (FP) PO ONE (07:00)
[2018-07-24] MEDS ORDERED: amLODIPine BESYLATE 10 MG TABLET (FP) PO ONE (07:00)
[2018-07-24] MEDS ORDERED: CARVEDILOL 25 MG TABLET (FP) PO ONE (07:00)
--- NOTE | 2018-07-24 07:07 | PN ---
Teaching Attending Note Name of Resident: Gisel Shah ATTENDING PHYSICIAN STATEMENT I saw and evaluated the patient. I reviewed the resident's note and discussed the case with the resident. I agree with the resident's findings and plan as documented. SUBJECTIVE: Patient is a 58 y/o AAM with a PMH as documented; please see the resident note for further documentation of historical issues. In summation this is a 58 y/o AAM who is presenting to the hospital today for acute shortness of breath that started in the morning and progressed leading to him coming in for acute respiratory failure. He was recently discharged from the hospital at the end of May and has been wholly noncompliant with his treatment per the patient and appears to have neglected self care. He was on Hydralazine, Valsartan, Coreg, and a host of other medications that he has self-DC'd for at least 4 weeks. He has baseline CKD and his creatinine is much worse than it was prior. Prior echo reviewed; no systolic dysfunciton but some indicators of diastolic dysfunction noted. He does not watch his diet in regards to water or salt intake and is morbidly obese with a BMI of 46.5 which he doesn't routinely monitor, but he does state he feels he gained "like fifty pounds" since discharge. CXR found to be very suspicious for fluid overload with final read still pending; given his uncontrolled BP and flash pulm edema he is at risk for Aortic Dissection but he cannot get contrast with his advanced YOCASTA. He was started on bipap, a nitro drip, and given 80 lasix in the ER. Medicine called for admission. Calls placed to cardiology and nephrology for assessment and appreciate their further input. Cause of SOB appears to be acute pulmonary edema (given the acute nature perhaps even flash) but cannot exclude items such as Aortic Dissection, etc. 10 sys ROS done and negative except for the HPI PMH and PSH reviewed FH asked and he did reveal that he believed someone on the mother's side potentially had a clotting disorder. Will need to elucidate more later. OBJECTIVE: * VS reviewed alongside all labs and imaging. BP's >200 recorded on presentation to ER On Bipap doing well wihtout use of accessory muscles. Crackles thorughout both lungs most loudly heard at b/l bases. Saturating 100% on 03/03. Slightly tachycardic at 95-105 wihtout any joy murmurs NT ND +BS Given positioning of bipap and his size it is difficult to certainly say the exact cm of JVD CXR reviewed; appreciated fullness of both lungs suspect for pulmonary edema. Full report still pending and needs followed up. Labs reviewed; troponin slightly elevted with grossly elevated BNP. Slight hypernatremia noted. Cr in high 3-range with baseline in low 2's ASSESSMENT AND PLAN: Mr. Pena is a 58 y/o AAM with a presentation of acute hypoxic respiratory failure who appears to be in acute pulmonary edema and hypertensive emergency; his presentation is complicated by the presence of a severe YOCASTA. He will be admitted to the medicine service with cardiology, nephrology on board to manage his host of severe issues. 1) Acute Hypoxic Respiratory Failure Due to acute pulmonary queenie alikely driven by hypertensive crisis. On ntg ggt; titrating off and starting home meds per CV guidance. Got 80 lasix in the ER; further diuresis per CV. Consider secondary causes such as PE and aortic dissection but the overwhelmingly likely cause of this is noncompliance with home meds. Titrating from BiPap to NC as no hypercarbia observed. Don't suspect PNA even though leukocytosis but check culture. Monitor Is and Os closely. 2) Hypertensive Emergency -Evidenced by pulmonary edema, YOCASTA, elevsated troponin -Managed per respective sections; in regards to troponin this is likely though must of course rule out primary CV event. Last echo reviewed. Cardiac monitoring, trend trop, consult CV. -Control BP; wean from nitro and started PO medications. Adjust as necessary. Appreciate CV input. 3) Acute Sinus Tachycardia with evident trigeminy -Noted on EKG; cardiac monitoring. -As per above will monitor trop, consult CV 4) Likely diastolic dysfunction -Per CV; noted on old echo 5) Severe YOCASTA on CKD-III -Nephrology consulted; management per their service. Consider cardiorenal component. Careful diuresis. Was supposed to get OP bx per nephrology. 6) Morbid Obesity -Feed Project Engineer when clinically appropriate 7) Noncompliance -Feed Project Engineer and address underlying issues 8) Bipolar -Likely driving noncompliance 9) Elevated troponin -As discussed above may be worsened by renal retention. Trend; potential causes discussed above Full Code Consultants: CV, nephrology
--- NOTE | 2018-07-24 07:13 | HP ---
CHIEF COMPLAINT: SOB PCP: Dr. Del Angel HISTORY OF PRESENT ILLNESS: 58 y/o M with PMHx of ?CHF, NIDDM, HTN, HLD presents to [facility] with [place]. Since his most recent discharge from [facility], Patient says he has not taken any of his home medications. This morning, he woke because he was unable to breathe. This was accompanied by feelings of dizziness and right rib cramping. Patient endorses a recent increase in Salt intake, Decreased exercise tolerance, PND and a recent increase in head of bed elevation. he additionally acknowledges an increase in his weight. ER course was notable for: (1) Bipap (2) Nitro Drip (3) Lasix 80mg Recent Travel: Denies PAST MEDICAL HISTORY: ?CHF, NIDDM, HTN, HLD, Bipolar disorder, Gout PAST SURGICAL HISTORY: Denies Social History: Smoking: Denies Alcohol: Denies Drugs: Denies Residence: Apartment Ambulation: With Cane Family History: Allergies No Known Allergies Allergy (Verified 07/24/18 01:15 EST) HOME MEDICATIONS: Home Medications Medication Instructions Recorded Amlodipine Besylate 10 mg PO DAILY 04/24/17 Aripiprazole [Abilify] 10 mg PO DAILY 04/24/17 Atorvastatin Ca [Lipitor] 40 mg PO HS 04/24/17 Carvedilol 25 mg PO BID 04/24/17 Hydralazine HCl 50 mg PO TID 04/24/17 Valsartan 320 mg PO DAILY 04/24/17 REVIEW OF SYSTEMS As per HPI PHYSICAL EXAMINATION Vital Signs - 24 hr 07/24/18 07/24/18 07/24/18 01:55 EDT 01:12 EST 03:00 Temperature 97.8 F Pulse Rate 70 Respiratory 24 H Rate Blood Pressure 212/147 H Blood Pressure 162/101 H [Left Arm] O2 Sat by Pulse 98 100 Oximetry (%) 07/24/18 07/24/18 03:15 06:02 Temperature Pulse Rate Respiratory 24 H Rate Blood Pressure Blood Pressure 178/115 H [Left Arm] O2 Sat by Pulse 100 Oximetry (%) GENERAL: A&Ox3, NAD, wearing Bipap HEAD: NCAT EYES: PERRL, EOMI LUNGS: Bibasilar crackles, Wearing Bipap, able to speak in full sentences without use of accessory muscles HEART: Regular rate and rhythm, normal S1 and S2 without murmur ABDOMEN: Soft, nontender, not distended, + bowel sounds, no guarding LOWER EXTREMITIES: 2+ pulses, 1+ edema. NEUROLOGICAL: Cranial nerves II-XII intact. Normal speech SKIN: Warm, dry Laboratory Results - last 24 hr 07/24/18 07/24/18 07/24/18 01:30 EST 01:30 EST 01:30 EST WBC 13.6 H RBC 4.36 Hgb 11.0 L Hct 33.4 L MCV 76.7 L MCH 25.1 L MCHC 32.8 RDW 18.1 H Plt Count 290 MPV 9.5 Absolute Neuts (auto) 11.2 H Neutrophils % 82.8 D Lymphocytes % 6.8 L D Monocytes % 7.9 Eosinophils % 1.8 Basophils % 0.7 Nucleated RBC % 0 PT with INR 11.60 INR 0.98 Anticoagulation Therapy Puncture Site ABG pH ABG pCO2 at Pt Temp ABG pO2 at Pt Temp ABG HCO3 ABG O2 Sat (Measured) ABG O2 Content ABG Base Excess Tom Test Carboxyhemoglobin Methemoglobin O2 Delivery Device Oxygen Flow Rate Vent Mode Vent Rate Mechanical Rate Pressure Support Vent Sodium 146 H Potassium 3.8 Chloride 112 H Carbon Dioxide 24 Anion Gap 9 BUN 50 H Creatinine 3.7 H Creat Clearance w eGFR 17.08 Random Glucose 122 H Calcium 7.9 L Total Bilirubin 0.2 AST 23 ALT 20 Alkaline Phosphatase 124 H Creatine Kinase 227 Creatine Kinase Index 1.6 CK-MB (CK-2) 3.8 H Troponin I 0.08 H B-Natriuretic Peptide Total Protein 6.9 Albumin 2.3 L 07/24/18 07/24/18 07/24/18 01:30 EST 05:03 05:03 WBC RBC Hgb Hct MCV MCH MCHC RDW Plt Count MPV Absolute Neuts (auto) Neutrophils % Lymphocytes % Monocytes % Eosinophils % Basophils % Nucleated RBC % PT with INR INR Anticoagulation Therapy Puncture Site ABG pH ABG pCO2 at Pt Temp ABG pO2 at Pt Temp ABG HCO3 ABG O2 Sat (Measured) ABG O2 Content ABG Base Excess Tom Test Carboxyhemoglobin Methemoglobin O2 Delivery Device Oxygen Flow Rate Vent Mode Vent Rate Mechanical Rate Pressure Support Vent Sodium 147 H Potassium 4.2 Chloride 116 H Carbon Dioxide 23 Anion Gap 9 BUN 54 H Creatinine 3.9 H Creat Clearance w eGFR 16.07 Random Glucose 111 H Calcium 7.5 L Total Bilirubin AST ALT Alkaline Phosphatase Creatine Kinase 189 Creatine Kinase Index 1.4 CK-MB (CK-2) 2.7 Troponin I 0.08 H B-Natriuretic Peptide 2251.7 H Total Protein Albumin 07/24/18 05:55 WBC RBC Hgb Hct MCV MCH MCHC RDW Plt Count MPV Absolute Neuts (auto) Neutrophils % Lymphocytes % Monocytes % Eosinophils % Basophils % Nucleated RBC % PT with INR INR Anticoagulation Therapy No Result Required. Puncture Site No Result Required. ABG pH 7.34 L ABG pCO2 at Pt Temp 39.0 ABG pO2 at Pt Temp 140.0 H ABG HCO3 20.5 L ABG O2 Sat (Measured) 99.0 H ABG O2 Content 11.2 L ABG Base Excess -4.4 L Tom Test No Result Required. Carboxyhemoglobin 1.3 Methemoglobin 0.8 O2 Delivery Device No Result Required. Oxygen Flow Rate No Result Required. Vent Mode No Result Required. Vent Rate No Result Required. Mechanical Rate No Result Required. Pressure Support Vent No Result Required. Sodium Potassium Chloride Carbon Dioxide Anion Gap BUN Creatinine Creat Clearance w eGFR Random Glucose Calcium Total Bilirubin AST ALT Alkaline Phosphatase Creatine Kinase Creatine Kinase Index CK-MB (CK-2) Troponin I B-Natriuretic Peptide Total Protein Albumin Active Medications Amlodipine Besylate (Norvasc -) 10 mg PO DAILY [facility] Aripiprazole (Abilify) 10 mg PO DAILY [facility] Carvedilol (Coreg -) 25 mg PO BID [facility] Heparin Sodium (Porcine) (Heparin -) 5,000 unit SQ TID [facility] Last Admin: 07/24/18 08:20 Dose: 5,000 unit Hydralazine HCl (Apresoline -) 50 mg PO TID [facility] Nitroglycerin/Dextrose (Nitroglycerin 50mg/D5w 250ml) 50 mg in 250 mls @ 3 mls/ hr IVPB TITR [facility]; Protocol Last Admin: 07/24/18 02:42 Dose: 10 mcg/min, 3 mls/hr ASSESSMENT/PLAN: 58 y/o M with PMHx of ?CHF, NIDDM, HTN, HLD presents to [facility] with SOB #SOB -Likely due to Acute pulmonary edema from not taking his prescribed medications -Placed on Bipap (Ipap 14, Epap 6, Rate 16, O2 45%), Given IV Lasix 80mg and started on Nitro drip in ED -Transition from Bipap to NC -CXR suggestive of Pulmonary edema, Pending official read -Nephrology (Dr. Raphael) Consulted -ECHO (06/17/18): LV EF is normal, LV Wall motion is normal, Trace MR, E/A Reversal consistent with but not diagnostic of poor LV compliance -Further Diuresis per cardio rec's -Blood and Sputum Cx, Flu Swab pending #HTN Emergency -Cardiology (Dr. Maddox) Consulted, Appreciate Rec's, Will restart home meds and taper down Nitro Drip -Home dose Norvasc, Coreg, Hydralazine restarted -Trop 0.08 x2 -EKG Reveals Sinus tachycardia with Trigeminy -Trend Trops and EKG #YOCASTA -Nephrology (Dr. Raphael) Consulted -Cautiously diuresis -Avoid Nephrotoxic medications #FEN -PO Fluids -Continue to monitor Hypernatremia -Sodium Controlled diet #PPx -DVT: Heparin Dispo: Admit to Tele Visit type - Emergency Visit Emergency Visit: Yes ED Registration Date: 07/24/18 Care time: The patient presented to the Emergency Department on the above date and was hospitalized for further evaluation of their emergent condition. - New Patient This patient is new to me today: Yes Date on this admission: 07/25/18 - Critical Care Critical Care patient: No
[2018-07-24] MEDS: HEPARIN NA (PORCINE) 5,000 UNITS/ML 1ML VIAL SQ SCH ×3 (08:20→21:16)
--- NOTE | 2018-07-24 09:13 | PN ---
Progress Note (short form) - Note Progress Note: Subjective: denies CP , no fever or chills. . SOB is slightly better . cough . reports non compliance with his meds due to depression Objective: Vital Signs: Last Vital Signs Temp Pulse Resp BP Pulse Ox 97.8 F 102 H 28 H 178/118 H 98 07/24/18 01:55 EDT 07/24/18 08:31 18 08:31 07/24/18 08:31 07/24/18 08 :31 Laboratory Results - last 24 hr 07/24/18 07/24/18 07/24/18 01:30 EST 01:30 EST 01:30 EST WBC 13.6 H RBC 4.36 Hgb 11.0 L Hct 33.4 L MCV 76.7 L MCH 25.1 L MCHC 32.8 RDW 18.1 H Plt Count 290 MPV 9.5 Absolute Neuts (auto) 11.2 H Neutrophils % 82.8 D Lymphocytes % 6.8 L D Monocytes % 7.9 Eosinophils % 1.8 Basophils % 0.7 Nucleated RBC % 0 PT with INR 11.60 INR 0.98 Anticoagulation Therapy Puncture Site ABG pH ABG pCO2 at Pt Temp ABG pO2 at Pt Temp ABG HCO3 ABG O2 Sat (Measured) ABG O2 Content ABG Base Excess Tom Test Carboxyhemoglobin Methemoglobin O2 Delivery Device Oxygen Flow Rate Vent Mode Vent Rate Mechanical Rate Pressure Support Vent Sodium 146 H Potassium 3.8 Chloride 112 H Carbon Dioxide 24 Anion Gap 9 BUN 50 H Creatinine 3.7 H Creat Clearance w eGFR 17.08 Random Glucose 122 H Calcium 7.9 L Total Bilirubin 0.2 AST 23 ALT 20 Alkaline Phosphatase 124 H Creatine Kinase 227 Creatine Kinase Index 1.6 CK-MB (CK-2) 3.8 H Troponin I 0.08 H B-Natriuretic Peptide Total Protein 6.9 Albumin 2.3 L 07/24/18 07/24/18 07/24/18 01:30 EST 05:03 05:03 WBC RBC Hgb Hct MCV MCH MCHC RDW Plt Count MPV Absolute Neuts (auto) Neutrophils % Lymphocytes % Monocytes % Eosinophils % Basophils % Nucleated RBC % PT with INR INR Anticoagulation Therapy Puncture Site ABG pH ABG pCO2 at Pt Temp ABG pO2 at Pt Temp ABG HCO3 ABG O2 Sat (Measured) ABG O2 Content ABG Base Excess Tom Test Carboxyhemoglobin Methemoglobin O2 Delivery Device Oxygen Flow Rate Vent Mode Vent Rate Mechanical Rate Pressure Support Vent Sodium 147 H Potassium 4.2 Chloride 116 H Carbon Dioxide 23 Anion Gap 9 BUN 54 H Creatinine 3.9 H Creat Clearance w eGFR 16.07 Random Glucose 111 H Calcium 7.5 L Total Bilirubin AST ALT Alkaline Phosphatase Creatine Kinase 189 Creatine Kinase Index 1.4 CK-MB (CK-2) 2.7 Troponin I 0.08 H B-Natriuretic Peptide 2251.7 H Total Protein Albumin 07/24/18 05:55 WBC RBC Hgb Hct MCV MCH MCHC RDW Plt Count MPV Absolute Neuts (auto) Neutrophils % Lymphocytes % Monocytes % Eosinophils % Basophils % Nucleated RBC % PT with INR INR Anticoagulation Therapy No Result Required. Puncture Site No Result Required. ABG pH 7.34 L ABG pCO2 at Pt Temp 39.0 ABG pO2 at Pt Temp 140.0 H ABG HCO3 20.5 L ABG O2 Sat (Measured) 99.0 H ABG O2 Content 11.2 L ABG Base Excess -4.4 L Tom Test No Result Required. Carboxyhemoglobin 1.3 Methemoglobin 0.8 O2 Delivery Device No Result Required. Oxygen Flow Rate No Result Required. Vent Mode No Result Required. Vent Rate No Result Required. Mechanical Rate No Result Required. Pressure Support Vent No Result Required. Sodium Potassium Chloride Carbon Dioxide Anion Gap BUN Creatinine Creat Clearance w eGFR Random Glucose Calcium Total Bilirubin AST ALT Alkaline Phosphatase Creatine Kinase Creatine Kinase Index CK-MB (CK-2) Troponin I B-Natriuretic Peptide Total Protein Albumin Physical Exam: NAD , awake , alert, speaks in full sentences CV: RRR, slightly tachy. no MRG. short neck , possible JVD Lungs : decreased breath sounds b/l . Ext : trace edema on LE . no fungal infection r wounds on feet ABd : obese, soft, NT, ND , NL BS Imaging: cxray reviewed. renal US , echo from last admission reviewed Assessment/Plan: 58 y/o man with h/o MOLLY, not on CPAP, gout, diastolic CHF, CKD, HTN, morbid obesity , bipolar, depression, non compliance and recent admission fro HTN and YOCASTA who presented with SOB and was found to have acute resp failure due to HTN emergency. 1- HTN emergency: with YOCASTA on CKD and pulm edema - BP is still not controlled on nitro gtt, but just got norvas, coreg, and hydralazin orally. - will closely follow BP. if no response in next hour, will change nitro to labetalol gtt . - resume home meds except for valsartan due to YOCASTA - card input pending 2- Elevated trop: due to demand ischemia insetting of HTN emergency. repeat Trop at noon 3- Acute hypoxic resp failure: due to acute diastolic CHF in setting of HTN emergency . off BIPAP now after lasix 80 mg . no clinical signs of PNA . - cont O2 through NC. - will cont diuresis as needed pending renal input. - last echo in may, no need to repeat 4- YOCASTA on CKD: cr 2.5 last dc . - repeat renal US. - check urine electrolytes. - urine protein. - was planned for renal bx as out pt . suspect HTN nephropathy - renal input appreciated. ? Ok to diurese 5- Bipolar, severe depression affecting his compliance. will get psych consult tomorrow, when stable and easy to evaluate mentally . cont abilify for now DVT Px HLOC Visit type - Emergency Visit Emergency Visit: Yes ED Registration Date: 07/24/18 Care time: The patient presented to the Emergency Department on the above date and was hospitalized for further evaluation of their emergent condition. - New Patient This patient is new to me today: Yes Date on this admission: 07/24/18 - Critical Care Critical Care patient: No
[2018-07-24] MEDS ORDERED: LABETALOL HCL 200 MG TABLET (FP) PO ONE (09:24)
[2018-07-24] MEDS ORDERED: LABETALOL HCL 100 MG TABLET (FP) ONE (09:33)
[2018-07-24] MEDS: ARIPiprazole 10 MG TABLET PO SCH (10:48)
--- NOTE | 2018-07-24 11:39 | EKG ---
Test Reason : Blood Pressure : / mmHG Vent. Rate : 116 BPM Atrial Rate : 116 BPM P-R Int : 136 ms QRS Dur : 092 ms QT Int : 358 ms P-R-T Axes : 030 001 058 degrees QTc Int : 497 ms SINUS TACHYCARDIA WITH FREQUENT PREMATURE VENTRICULAR COMPLEXES CANNOT RULE OUT ANTERIOR INFARCT , AGE UNDETERMINED ABNORMAL ECG WHEN COMPARED WITH ECG OF 14-JUN-2018 20:24, NO SIGNIFICANT CHANGE WAS FOUND Confirmed by GENIE ANGEL MD ([id number]) on 07/24/2018 11:38:48 AM Referred By: Confirmed By:GENIE ANGEL MD
--- NOTE | 2018-07-24 11:47 | CON.NEP ---
Consult Consult Specialty:: nephrology Reason for Consultation:: yocasta - History of Present Illness Chief Complaint: dyspnea History of Present Illness: 58 y/o M with PMHx of ?CHF, NIDDM, HTN, HLD presents with SOB. He was in rehab until last month presumably for gout and did not get his medications . He was previously seen for his CKD disease and was told to have a kidney biopsy buthe did not follow up. This morning, he woke because he was unable to breathe. This was accompanied by feelings of dizziness and right rib cramping. Says he thought he was having a stroke or a heart attack. Patient endorses a recent increase in Salt intake, Decreased exercise tolerance, His blood pressure was over 200 and even though its better, he says he does not feel better - History Source History Provided By: Patient, Medical Record Limitations to Obtaining History: No Limitations - Past Medical History Cardio/Vascular: Yes: CHF, HTN Renal/: Yes: Renal Inusuff Rheumatology: Yes: Gout - Alcohol/Substance Use Hx Alcohol Use: No - Smoking History Smoking history: Unknown if ever smoked Have you smoked in the past 12 months: No Aproximately how many cigarettes per day: 0 - Social History ADL: Support Services Occupation: disability History of Recent Travel: No Home Medications - Allergies Allergies/Adverse Reactions: Allergies Allergy/AdvReac Type Severity Reaction Status Date / Time No Known Allergies Allergy Verified 07/24/18 01:15 EST - Home Medications Home Medications: Ambulatory Orders Amlodipine Besylate 10 mg PO DAILY 04/24/17 Aripiprazole [Abilify] 10 mg PO DAILY 04/24/17 Atorvastatin Ca [Lipitor] 40 mg PO HS 04/24/17 Carvedilol 25 mg PO BID 04/24/17 Hydralazine HCl 50 mg PO TID 04/24/17 Valsartan 320 mg PO DAILY 04/24/17 Family Disease History - Family Disease History Family Disease History: Heart Disease: Father (HTN) Review of Systems - Review of Systems Constitutional: reports: No Symptoms Eyes: reports: No Symptoms HENT: reports: No Symptoms Neck: reports: No Symptoms Cardiovascular: reports: Edema, Shortness of Breath Respiratory: reports: Exercise Intolerance Gastrointestinal: reports: No Symptoms Genitourinary: reports: No Symptoms Breasts: reports: No Symptoms Reported Musculoskeletal: reports: Muscle Pain Integumentary: reports: No Symptoms Neurological: reports: No Symptoms Endocrine: reports: No Symptoms Hematology/Lymphatic: reports: No Symptoms Psychiatric: reports: No Symptoms Nephrology Consult - Height Height: 5 ft 9 in - Weight Weight: 315 lb - BMI Body Mass Index (BMI): 46.5 - Lab Results CBC,BMP: CBC, BMP 07/24/18 01:30 EST 07/24/18 05:03 Anion Gap: Anion Gap Anion Gap 9 MMOL/L (8-16) 07/24/18 05:03 - Imaging Chest X-ray: Report Reviewed (new congestive changes) EKG: Report Reviewed (no new changes) - Physical Examination Vital Signs: Vital Signs Temperature 97.8 F 07/24/18 01:55 EDT Pulse Rate 98 H 07/24/18 11:36 Respiratory Rate 21 H 07/24/18 09:24 Blood Pressure 134/86 07/24/18 11:36 O2 Sat by Pulse Oximetry (%) 100 07/24/18 09:24 Constitutional: Yes: Well Nourished, No Distress, Anxious Eyes: Yes: Conjunctiva Clear HENT: Yes: Atraumatic, Normocephalic Neck: Yes: Supple, Trachea Midline Cardiovascular: Yes: Pulse Irregular, Murmur Respiratory: Yes: Regular, Diminished Gastrointestinal: Yes: Normal Bowel Sounds Renal/: Yes: Anuria, Bladder Distention Extremities: Yes: WNL Edema: Yes Edema: LLE: Trace, RLE: Trace Peripheral Pulses WNL: Yes Integumentary: Yes: WNL Neurological: Yes: Alert, Oriented Assessment/Plan IMPRESSION 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
--- NOTE | 2018-07-24 13:13 | CON.CARD ---
Consult Consult Specialty:: Cardiology Referred by:: ER Reason for Consultation:: chf - History of Present Illness Chief Complaint: sob History of Present Illness: 58 y/o M with PMHx of diastolic CHF, NIDDM, HTN, HLD, CKD 5 bipolar disorder recent admission for bp control, ckd and sob did not take medications post DC now presents to [facility] with SOB, edema and orthopnea. Found hypertensive in pulmonary edema. Given meds and IV lasix, IVNTG. Feeling better this AM. Denies chest pain. echo 06/17/18 nlef trace MR. 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: Support Services Occupation: disability History of Recent Travel: No Home Medications - Allergies Allergies/Adverse Reactions: Allergies Allergy/AdvReac Type Severity Reaction Status Date / Time No Known Allergies Allergy Verified 07/24/18 01:15 EST - Home Medications Home Medications: Ambulatory Orders Amlodipine Besylate 10 mg PO DAILY 04/24/17 Aripiprazole [Abilify] 10 mg PO DAILY 04/24/17 Atorvastatin Ca [Lipitor] 40 mg PO HS 04/24/17 Carvedilol 25 mg PO BID 04/24/17 Hydralazine HCl 50 mg PO TID 04/24/17 Valsartan 320 mg PO DAILY 04/24/17 Family Disease History - Family Disease History Family Disease History: Heart Disease: Father (HTN) Vital Signs: Vital Signs Temperature 97.8 F 07/24/18 01:55 EDT Pulse Rate 98 H 07/24/18 11:36 Respiratory Rate 21 H 07/24/18 09:24 Blood Pressure 134/86 07/24/18 11:36 O2 Sat by Pulse Oximetry (%) 100 07/24/18 09:24 Constitutional: Yes: No Distress, Obese Eyes: Yes: Conjunctiva Clear, EOM Intact HENT: Yes: Atraumatic, Normocephalic Neck: Yes: Trachea Midline Respiratory: Yes: Rales (bilat 1/3 up) Gastrointestinal: Yes: Normal Bowel Sounds, Soft Cardiovascular: Yes: Regular Rate and Rhythm JVD: Yes Carotid Bruit: No PMI: Non-Displaced Heart Sounds: Yes: S1, S2 Edema: Yes Edema: LLE: 2+, RLE: 2+ Peripheral Pulses WNL: Yes - Other Data Labs, Other Data: CBC, BMP 07/24/18 01:30 EST 07/24/18 05:03 INR, PTT INR 0.98 (0.83-1.09) 07/24/18 01:30 EST Troponin, BNP 07/24/18 07/24/18 07/24/18 01:30 EST 01:30 EST 05:03 Troponin I 0.08 H 0.08 H B-Natriuretic Peptide 2251.7 H 07/24/18 12:14 Troponin I 0.07 H B-Natriuretic Peptide Troponin, BNP 07/24/18 07/24/18 07/24/18 01:30 EST 01:30 EST 05:03 Troponin I 0.08 H 0.08 H B-Natriuretic Peptide 2251.7 H 07/24/18 12:14 Troponin I 0.07 H B-Natriuretic Peptide Imaging - Results Chest X-ray: Report Reviewed EKG: Report Reviewed Assessment/Plan 58 y/o M with PMHx of diastolic CHF, NIDDM, HTN, HLD, CKD 5 bipolar disorder recent admission for bp control, ckd and sob did not take medications post DC now presents to [facility] with SOB, edema and orthopnea. Found hypertensive in pulmonary edema. Given meds and IV lasix, IVNTG. Feeling better this AM. Denies chest pain. echo 06/17/18 nlef trace MR. 1. acute on chronic diastolic CHF -due to CKD and medication noncompliance. -restart all medication -dc IV nitro -continue IV lasix. -no need for repeat echo -renal to follow. -may need bx -no plans for ischemia workup at this point.
[2018-07-24] MEDS: hydrALAZINE HCL 50 MG TABLET (FP) PO SCH ×2 (14:17→21:16)
[2018-07-24] MEDS ORDERED: CARVEDILOL 12.5 MG TABLET (FP) ONE (20:34)
[2018-07-24] MEDS ORDERED: hydrALAZINE HCL 25 MG TABLET (FP) ONE (20:35)
[2018-07-24] MEDS ORDERED: HEPARIN NA (PORCINE) 5,000 UNITS/ML 1ML VIAL ONE (20:35)
[2018-07-24] MEDS: CARVEDILOL 25 MG TABLET (FP) PO SCH (21:16)
[2018-07-25] MEDS ORDERED: HEPARIN NA (PORCINE) 5,000 UNITS/ML 1ML VIAL ONE (02:47)
[2018-07-25] MEDS ORDERED: hydrALAZINE HCL 25 MG TABLET (FP) ONE (02:47)
[2018-07-25] MEDS: HEPARIN NA (PORCINE) 5,000 UNITS/ML 1ML VIAL SQ SCH ×3 (05:49→21:09)
[2018-07-25] MEDS: hydrALAZINE HCL 50 MG TABLET (FP) PO SCH ×3 (05:49→21:09)
[2018-07-25 06:14] LABS: BASO % 0.8 % (0-2.0); HEMATOCRIT 28.5 % (35.4-49); HEMOGLOBIN 9.4 GM/dL (11.7-16.9); LYMPH % 13.4 % (8-40); MCH 25.3 pg (25.7-33.7); MCHC 33.1 g/dl (32.0-35.9); MEAN CELL VOLUME 76.5 fl (80-96); MEAN PLT VOLUME 9.2 fl (7.5-11.1); MONO % 9.3 % (3.8-10.2); NEUT % 72.5 % (42.8-82.8); PLATELET COUNT 221 K/MM3 (134-434); RBC 3.72 M/mm3 (4.00-5.60); RDW 18.2 % (11.9-15.9); WHITE BLOOD COUNT 8.3 K/mm3 (4.0-10.0)
[2018-07-25 06:40] LABS: ALBUMIN 2.1 g/dl (3.4-5.0); ALK PHOS 102 U/L (45-117); ANION GAP 12 MMOL/L (8-16); BILIRUBIN,TOTAL 0.3 mg/dL (0.2-1); BLOOD UREA NITROGEN 64 mg/dL (7-18); CALCIUM 7.8 mg/dL (8.5-10.1); CHLORIDE 109 mmol/L (98-107); CO2 21 mmol/L (21-32); CREATININE 4.2 mg/dL (0.55-1.3); GLUCOSE,RANDOM 95 mg/dL (74-106); MAGNESIUM 2.1 mg/dL (1.8-2.4); PHOSPHOROUS 5.8 mg/dL (2.5-4.9); POTASSIUM 3.6 mmol/L (3.5-5.1); SGOT/AST 20 U/L (15-37); SGPT/ALT 16 U/L (13-61); SODIUM 142 mmol/L (136-145)
[2018-07-25] MEDS: ARIPiprazole 10 MG TABLET PO SCH (11:15)
[2018-07-25] MEDS: CARVEDILOL 25 MG TABLET (FP) PO SCH ×2 (11:16→21:09)
[2018-07-25] MEDS: amLODIPine BESYLATE 10 MG TABLET (FP) PO SCH (11:16)
[2018-07-25] MEDS ORDERED: FUROSEMIDE 40 MG TABLET (FP) ONE (11:27)
--- NOTE | 2018-07-25 11:46 | PN ---
Teaching Attending Note Name of Resident: Gisel Shah ATTENDING PHYSICIAN STATEMENT I saw and evaluated the patient. I reviewed the resident's note and discussed the case with the resident. I agree with the resident's findings and plan as documented. SUBJECTIVE: Denies CP , or SOB, no fever or chills, SOB is much better. reports increased UOP OBJECTIVE: NAD , awake , alert, comfortable , no tachypnea CV: RRR.+ JVD Lungs: CTAB , but distant breath sounds . decreased breath sounds at bases Ext: trace edema on LE. Assessment/Plan: 58 y/o man with h/o MOLLY, not on CPAP, gout, diastolic CHF, CKD, HTN, morbid obesity , bipolar, depression, non compliance and recent admission fro HTN and YOCASTA who presented with SOB and was found to have acute resp failure due to HTN emergency. 1- HTN emergency: BP improved. - cont coreg, HZN , and Norvasc. 2- Elevated trop: due to demand ischemia insetting of HTN emergency. trop trended down. might need stress test as out pt avoid any Qtc prolongiing agents due to long QTC 3- Acute diastolic CHF: improved . - start lasix 80 daily 4- YOCASTA on CKD: with nephrotic range proteinuria. cr is worse today, US with no hydro - P/cr =7.2, and FeUrea 17%. - monitor renal function, cont diuresis , and f/u as out pt - d/w Dr. Raphael 5-Bipolar and depression : cont abilify and f/u with psych at dc DVT Px HLOC
[2018-07-25] MEDS: FUROSEMIDE 40 MG/4 ML INJECTABLE VIAL IVPUSH SCH (12:20)
--- NOTE | 2018-07-25 14:13 | PN ---
Progress Note, Physician Chief Complaint: Feeling a lot better. SOB resolved History of Present Illness: 58 y/o M with PMHx of diastolic CHF, NIDDM, HTN, HLD, CKD 5 bipolar disorder recent admission for bp control, ckd and sob did not take medications post DC now presents to [facility] with SOB, edema and orthopnea. Found hypertensive in pulmonary edema. Given meds and IV lasix, IVNTG. Feeling better this AM. Denies chest pain. echo 06/17/18 nlef trace MR. - Current Medication List Current Medications: Active Medications Amlodipine Besylate (Norvasc -) 10 mg PO DAILY [facility] Last Admin: 07/25/18 11:16 Dose: 10 mg Aripiprazole (Abilify) 10 mg PO DAILY [facility] Last Admin: 07/25/18 11:15 Dose: 10 mg Carvedilol (Coreg -) 25 mg PO BID [facility] Last Admin: 07/25/18 11:16 Dose: 25 mg Furosemide (Lasix Injection -) 80 mg IVPUSH DAILY [facility] Last Admin: 07/25/18 12:20 Dose: 80 mg Heparin Sodium (Porcine) (Heparin -) 5,000 unit SQ TID [facility] Last Admin: 07/25/18 05:49 Dose: 5,000 unit Hydralazine HCl (Apresoline -) 50 mg PO TID [facility] Last Admin: 07/25/18 05:49 Dose: 50 mg - Objective Vital Signs: Vital Signs Temperature 97.6 F 07/25/18 09:00 Pulse Rate 89 07/25/18 09:00 Respiratory Rate 21 H 07/25/18 09:00 Blood Pressure 145/87 07/25/18 09:00 O2 Sat by Pulse Oximetry (%) 97 07/24/18 21:00 Constitutional: Yes: Well Nourished, No Distress, Obese Eyes: Yes: Conjunctiva Clear, EOM Intact HENT: Yes: Atraumatic, Normocephalic Neck: Yes: Supple, Trachea Midline Cardiovascular: Yes: Regular Rate and Rhythm (unable to assess JVD due to body habitus), S1, S2. No: Gallop, Murmur Respiratory: Yes: Regular, CTA Bilaterally Edema: No Labs: CBC, BMP 07/25/18 06:00 07/25/18 06:00 INR, PTT INR 0.98 (0.83-1.09) 07/24/18 01:30 EST Problem List - Problems (1) CHF (congestive heart failure) Code(s): I50.9 - HEART FAILURE, UNSPECIFIED Qualifiers: Heart failure type: unspecified Heart failure chronicity: acute on chronic Qualified Code(s): I50.9 - Heart failure, unspecified Assessment/Plan 58 y/o M with PMHx of diastolic CHF, NIDDM, HTN, HLD, CKD 5 bipolar disorder recent admission for bp control, ckd and sob did not take medications post DC now presents to [facility] with SOB, edema and orthopnea. Found hypertensive in pulmonary edema. Given meds and IV lasix, IVNTG. Feeling better this AM. Denies chest pain. echo 06/17/18 nlef trace MR. 1. acute on chronic diastolic CHF -due to CKD and medication noncompliance. -Can transition to oral diuretics today. -no need for repeat echo -no plans for ischemia workup at this point.
--- NOTE | 2018-07-25 14:46 | PN ---
Progress Note, Physician History of Present Illness: Pt seen and examined at bedside. He is awake and alert. He complains of lower ext edema. He also complains of shortness of breath with exertion. - Current Medication List Current Medications: Active Medications Amlodipine Besylate (Norvasc -) 10 mg PO DAILY [facility] Last Admin: 07/25/18 11:16 Dose: 10 mg Aripiprazole (Abilify) 10 mg PO DAILY [facility] Last Admin: 07/25/18 11:15 Dose: 10 mg Carvedilol (Coreg -) 25 mg PO BID [facility] Last Admin: 07/25/18 11:16 Dose: 25 mg Furosemide (Lasix Injection -) 80 mg IVPUSH DAILY [facility] Last Admin: 07/25/18 12:20 Dose: 80 mg Heparin Sodium (Porcine) (Heparin -) 5,000 unit SQ TID [facility] Last Admin: 07/25/18 05:49 Dose: 5,000 unit Hydralazine HCl (Apresoline -) 50 mg PO TID [facility] Last Admin: 07/25/18 05:49 Dose: 50 mg - Objective Vital Signs: Vital Signs Temperature 97.6 F 07/25/18 09:00 Pulse Rate 89 07/25/18 09:00 Respiratory Rate 21 H 07/25/18 09:00 Blood Pressure 145/87 07/25/18 09:00 O2 Sat by Pulse Oximetry (%) 97 07/24/18 21:00 Constitutional: Yes: Calm Eyes: Yes: Conjunctiva Clear HENT: Yes: Atraumatic Cardiovascular: Yes: S1, S2 Respiratory: Yes: On Nasal O2 Genitourinary: Yes: WNL Musculoskeletal: Yes: WNL Edema: Yes Edema: LLE: 1+, RLE: 1+ Neurological: Yes: Oriented Psychiatric: Yes: Oriented Labs: CBC, BMP 07/25/18 06:00 07/25/18 06:00 INR, PTT INR 0.98 (0.83-1.09) 07/24/18 01:30 EST - ....Imaging Ultrasound: Report Reviewed Problem List - Problems (1) CHF (congestive heart failure) Code(s): I50.9 - HEART FAILURE, UNSPECIFIED Qualifiers: Heart failure type: unspecified Heart failure chronicity: acute on chronic Qualified Code(s): I50.9 - Heart failure, unspecified (2) YOCASTA (acute kidney injury) Code(s): N17.9 - ACUTE KIDNEY FAILURE, UNSPECIFIED (3) CKD (chronic kidney disease) Code(s): N18.9 - CHRONIC KIDNEY DISEASE, UNSPECIFIED Assessment/Plan Current Medications Generic Name Dose Route Start Last Admin Trade Name Freq PRN Reason Stop Dose Admin Amlodipine Besylate 10 mg 07/25/18 10:00 07/25/18 11:16 Norvasc - PO 10 mg DAILY [facility] Administration Aripiprazole 10 mg 07/24/18 10:00 07/25/18 11:15 Abilify PO 10 mg DAILY [facility] Administration Carvedilol 25 mg 07/24/18 22:00 07/25/18 11:16 Coreg - PO 25 mg BID [facility] Administration Furosemide 80 mg 07/25/18 12:00 07/25/18 12:20 Lasix Injection - IVPUSH 80 mg DAILY [facility] Administration Heparin Sodium (Porcine) 5,000 unit 07/24/18 07:30 07/25/18 05:49 Heparin - SQ 5,000 unit TID [facility] Administration Hydralazine HCl 50 mg 07/24/18 14:00 07/25/18 05:49 Apresoline - PO 50 mg TID [facility] Administration Impression 1. YOCASTA 2. CKD 3. volume overload 4. HTN 5. CHF 6. DM 7. hx bipolar 8. gout Plan - pt did not follow up as outpt after he was discharged - he says he was not taking his medications at home - can swith lasix to PO for tomorrow - check daily weights - avoid nsaids - will need further workup - discussed with medical team
--- NOTE | 2018-07-25 19:31 | CON.PSY ---
Psychiatry Consult Chief Complaint: 58 hear old male who reports to have hjad a bipolar disorder and is on Abilify 10mg po nod for t5hs past 6 months. Patient reports feeling well and wants to continue o this medication. - Previous Psychiatric Treatment Outpatient: Less than 6 mos ago Inpatient: None - Previous Substance Abuse Treatment Outpatient: None Inpatient: None - Reason for Previous Treatment Reason for Previous Treatment: Biploar Illness - Current Medications Current Medications: Active Medications Amlodipine Besylate (Norvasc -) 10 mg PO DAILY [facility] Last Admin: 07/25/18 11:16 Dose: 10 mg Aripiprazole (Abilify) 10 mg PO DAILY [facility] Last Admin: 07/25/18 11:15 Dose: 10 mg Carvedilol (Coreg -) 25 mg PO BID [facility] Last Admin: 07/25/18 11:16 Dose: 25 mg Furosemide (Lasix Injection -) 80 mg IVPUSH DAILY [facility] Last Admin: 07/25/18 12:20 Dose: 80 mg Heparin Sodium (Porcine) (Heparin -) 5,000 unit SQ TID [facility] Last Admin: 07/25/18 14:35 Dose: 5,000 unit Hydralazine HCl (Apresoline -) 50 mg PO TID [facility] Last Admin: 07/25/18 14:34 Dose: 50 mg - Allergies Allergies: Allergies Allergy/AdvReac Type Severity Reaction Status Date / Time No Known Allergies Allergy Verified 07/24/18 01:15 EST - Current Living Status Usual Living Arrangement: With Significant Other - Current Mental Status Evaluation Appearance: Well Groomed Attitude: Cooperative - Affect Affect: Full Range - Mood Mood: Euthymic - Speech/Language Expressive: Coherent Receptive: Age Appropriate Comprehension of Spoken Words - Psychomotor Activity Psychomotor Activity: Normal - Thought Process Thought Process: Intact - Thought Content Hallucinations: Absent Delusions: Absent - Self Perception Self Perception: No Impairment - Cognition Attention: Alert Orientation: Time Memory, Immediate Recall: Intact Memory, Short Term: 3/3 Memory, Remote with Promptin/3 - Concentration Serial Sevens Intact: Yes Simple Calculations Intact: Yes - Abstraction Proverb Interpretation: Intact Judgement: Intact - Insight Insight: Intact - Impulse Control Impulse Control: Good Control - Suicidal Ideation Suicidal Ideation: No - Homicidal Ideation Homicidal Ideation: No Assessment/Plan 1) Abilify 10mg po od. for Bipolar. 2) will follow up with [facility] pvt psych after discharge.
--- NOTE | 2018-07-25 20:44 | PN ---
Physical Exam: SUBJECTIVE: Patient seen and examined this morning. No new complaints. No overnight events as per nursing staff. OBJECTIVE: Vital Signs Period Temp Pulse Resp BP Sys/Castillo Pulse Ox Last 24 Hr 97.5 F-98.4 F 85-99 17-23 145-174/87-108 96-97 GENERAL: A&Ox3, NAD, lying with head of bed elevated HEAD: NCAT EYES: PERRL, EOMI LUNGS: CTAB HEART: Regular rate and rhythm, normal S1 and S2 without murmur ABDOMEN: Soft, nontender, not distended, + bowel sounds, no guarding LOWER EXTREMITIES: 2+ pulses, Trace edema NEUROLOGICAL: Cranial nerves II-XII intact. Normal speech SKIN: Warm, dry Laboratory Results - last 24 hr 07/25/18 07/25/18 07/25/18 06:00 06:00 12:47 WBC 8.3 RBC 3.72 L Hgb 9.4 L Hct 28.5 L MCV 76.5 L MCH 25.3 L MCHC 33.1 RDW 18.2 H Plt Count 221 D MPV 9.2 Absolute Neuts (auto) 6.0 Neutrophils % 72.5 Lymphocytes % 13.4 D Monocytes % 9.3 Eosinophils % 4.0 D Basophils % 0.8 Nucleated RBC % 0 Sodium 142 Potassium 3.6 Chloride 109 H Carbon Dioxide 21 Anion Gap 12 BUN 64 H Creatinine 4.2 H Creat Clearance w eGFR 14.75 POC Glucometer 103.89868 Random Glucose 95 Calcium 7.8 L Phosphorus 5.8 H Magnesium 2.1 Total Bilirubin 0.3 AST 20 ALT 16 Alkaline Phosphatase 102 Total Protein 6.0 L Albumin 2.1 L Microbiology 07/24/18 08:53 Blood - Peripheral Venous Blood Culture - Preliminary NO GROWTH OBTAINED AFTER 24 HOURS, INCUBATION TO CONTINUE FOR 4 DAYS. 07/24/18 08:53 Blood - Peripheral Venous Blood Culture - Preliminary NO GROWTH OBTAINED AFTER 24 HOURS, INCUBATION TO CONTINUE FOR 4 DAYS. 07/24/18 09:43 Nasopharyngeal Swab Influenza Types A,B Antigen - Final 07/24/18 09:43 Nasopharyngeal Swab - Final Active Medications Amlodipine Besylate (Norvasc -) 10 mg PO DAILY [facility] Last Admin: 07/25/18 11:16 Dose: 10 mg Aripiprazole (Abilify) 10 mg PO DAILY [facility] Carvedilol (Coreg -) 25 mg PO BID [facility] Last Admin: 07/25/18 11:16 Dose: 25 mg Furosemide (Lasix Injection -) 80 mg IVPUSH DAILY [facility] Last Admin: 07/25/18 12:20 Dose: 80 mg Heparin Sodium (Porcine) (Heparin -) 5,000 unit SQ TID [facility] Last Admin: 07/25/18 14:35 Dose: 5,000 unit Hydralazine HCl (Apresoline -) 50 mg PO TID [facility] Last Admin: 07/25/18 14:34 Dose: 50 mg IMAGING: -CXR: Since 06/17/2018, there are new congestive changes with chin artifact and prominent mediastinum. -Kidney/Renal US: Echogenic kidneys consistent with chronic medical renal disease. No evidence of hydronephrosis or acute pathology. -EKG: SINUS TACHYCARDIA WITH FREQUENT PREMATURE VENTRICULAR COMPLEXES, VR 116, QTc 497 ASSESSMENT/PLAN: 58 y/o M with PMHx of ?CHF, NIDDM, HTN, HLD presents to [facility] with SOB #SOB -Likely due to Acute Diastolic CHF from not taking his prescribed medications -Was on Bipap (Ipap 14, Epap 6, Rate 16, O2 45%), Given IV Lasix 80mg and started on Nitro drip in ED -Currently on 2L NC -CXR noted above -Nephrology (Dr. Raphael) Consulted, Appreciate rec's -ECHO (06/17/18): LV EF is normal, LV Wall motion is normal, Trace MR, E/A Reversal consistent with but not diagnostic of poor LV compliance -Further Diuresis per cardio rec's, Will transition to PO Diuretics -Blood and Sputum Cx, Flu Swab pending #HTN Emergency -Cardiology (Dr. Maddox) Consulted, Appreciate Rec's -Continue Home dose Norvasc, Coreg, Hydralazine -Trop 0.08 x2 -EKG Reveals Sinus tachycardia with Trigeminy -No repeat echo or ischemia workup at this point #YOCASTA -Nephrotic range Proteinuria with worsening Cr today -Nephrology (Dr. Raphael) Consulted -Cautiously diuresis -Avoid Nephrotoxic medications -Renal US noted above #Bipolar disorder -Psych (Dr. Limon) consulted, Appreicate rec's, Started on Abilify #FEN -PO Fluids -Continue to monitor Hypernatremia -Sodium Controlled diet #PPx -DVT: Heparin Dispo: Admit to Tele Visit type - Emergency Visit Emergency Visit: Yes ED Registration Date: 07/24/18 Care time: The patient presented to the Emergency Department on the above date and was hospitalized for further evaluation of their emergent condition. - New Patient This patient is new to me today: No - Critical Care Critical Care patient: No - Discharge Referral Referred to [facility] Med P.C.: No
[2018-07-26] MEDS: hydrALAZINE HCL 50 MG TABLET (FP) PO SCH ×3 (06:11→21:23)
[2018-07-26] MEDS: HEPARIN NA (PORCINE) 5,000 UNITS/ML 1ML VIAL SQ SCH ×3 (06:11→21:22)
[2018-07-26 07:10] LABS: BASO % 0.4 % (0-2.0); EOS % 3.4 % (0-4.5); HEMATOCRIT 27.2 % (35.4-49); HEMOGLOBIN 9.2 GM/dL (11.7-16.9); LYMPH % 11.5 % (8-40); MCH 25.6 pg (25.7-33.7); MCHC 33.7 g/dl (32.0-35.9); MEAN PLT VOLUME 9.3 fl (7.5-11.1); MONO % 8.3 % (3.8-10.2); NEUT % 76.4 % (42.8-82.8); PLATELET COUNT 229 K/MM3 (134-434); RBC 3.58 M/mm3 (4.00-5.60); RDW 17.6 % (11.9-15.9); WHITE BLOOD COUNT 7.4 K/mm3 (4.0-10.0)
[2018-07-26 07:38] LABS: ANION GAP 10 MMOL/L (8-16); BLOOD UREA NITROGEN 72 mg/dL (7-18); CALCIUM 7.4 mg/dL (8.5-10.1); CHLORIDE 110 mmol/L (98-107); CO2 21 mmol/L (21-32); CREATININE 4.4 mg/dL (0.55-1.3); GLUCOSE,RANDOM 99 mg/dL (74-106); MAGNESIUM 2.3 mg/dL (1.8-2.4); POTASSIUM 3.7 mmol/L (3.5-5.1); SODIUM 141 mmol/L (136-145)
--- NOTE | 2018-07-26 10:02 | PN ---
Progress Note, Physician History of Present Illness: seen and examined today in [facility]. states he is feeling better. urinating frequently with Lasix. no new complaints. - Current Medication List Current Medications: Active Medications Amlodipine Besylate (Norvasc -) 10 mg PO DAILY [facility] Last Admin: 07/25/18 11:16 Dose: 10 mg Aripiprazole (Abilify) 10 mg PO DAILY [facility] Carvedilol (Coreg -) 25 mg PO BID [facility] Last Admin: 07/25/18 21:09 Dose: 25 mg Furosemide (Lasix Injection -) 80 mg IVPUSH DAILY [facility] Last Admin: 07/25/18 12:20 Dose: 80 mg Heparin Sodium (Porcine) (Heparin -) 5,000 unit SQ TID [facility] Last Admin: 07/26/18 06:11 Dose: 5,000 unit Hydralazine HCl (Apresoline -) 50 mg PO TID [facility] Last Admin: 07/26/18 06:11 Dose: 50 mg - Objective Vital Signs: Vital Signs Temperature 98.2 F 07/26/18 05:00 Pulse Rate 85 07/26/18 05:00 Respiratory Rate 20 07/26/18 05:00 Blood Pressure 135/86 07/26/18 05:00 O2 Sat by Pulse Oximetry (%) 98 07/25/18 21:00 Constitutional: Yes: No Distress, Calm, Obese Eyes: Yes: Conjunctiva Clear, EOM Intact, PERRL HENT: Yes: Atraumatic, Normocephalic Neck: Yes: Supple, Trachea Midline Cardiovascular: Yes: Regular Rate and Rhythm, S1, S2. No: Bradycardia, Tachycardia, Pulse Irregular, Bruit, JVD, Gallop, Murmur, Rub, S3, S4, Varicosities Respiratory: Yes: Regular, Diminished, Rhonchi, Wheezes. No: Rales, SOB Gastrointestinal: Yes: Normal Bowel Sounds, Soft. No: Distention, Tenderness Musculoskeletal: Yes: WNL Extremities: Yes: WNL Edema: No Peripheral Pulses WNL: Yes Peripheral Pulses: Left Doralis Pedis: 2+, Right Dorsalis Pedis: 2+ Neurological: Yes: Alert, Oriented Psychiatric: Yes: Alert, Oriented Labs: CBC, BMP 07/26/18 05:30 07/26/18 05:30 INR, PTT INR 0.98 (0.83-1.09) 07/24/18 01:30 EST - ....Imaging Chest X-ray: Report Reviewed, Image Reviewed EKG: Report Reviewed, Image Reviewed Other: Report Reviewed, Image Reviewed (tele-nsr, occ pvcs) Assessment/Plan 58 y/o M with PMHx of diastolic CHF, NIDDM, HTN, HLD, CKD 5 bipolar disorder recent admission for bp control, ckd and sob did not take medications post DC now presents to [facility] with SOB, edema and orthopnea. Found hypertensive in pulmonary edema. Given meds and IV lasix, IVNTG. Feeling better this AM. Denies chest pain. echo 06/17/18 nlef trace MR. 1. SOB-acute on chronic diastolic CHF -euvolemic -due to CKD and medication noncompliance. -Can transition to oral diuretics -no need for repeat echo -no plans for ischemia workup at this point. -can dc tele -outpatient fup. Please call with any additional questions.
[2018-07-26] MEDS ORDERED: PT OWN MED DRAWER 7, Y5N ONE (10:10)
[2018-07-26] MEDS: amLODIPine BESYLATE 10 MG TABLET (FP) PO SCH (10:12)
[2018-07-26] MEDS: ARIPiprazole 10 MG TABLET PO SCH (10:12)
[2018-07-26] MEDS: CARVEDILOL 25 MG TABLET (FP) PO SCH ×2 (10:12→21:23)
--- NOTE | 2018-07-26 12:33 | PN ---
Teaching Attending Note Name of Resident: Gisel Shah ATTENDING PHYSICIAN STATEMENT I saw and evaluated the patient. I reviewed the resident's note and discussed the case with the resident. I agree with the resident's findings and plan as documented. SUBJECTIVE: No SOB or pain, no fever or chills. nO CP . did not ambulate yet OBJECTIVE: NAD , awake , alert, comfortable, no tachypnea CV: RRR. Lungs: CTAB, but distant breath sounds . decreased breath sounds at bases but no crackles or wheezes heard Ext: no edema today Assessment/Plan: 58 y/o man with h/o MOLLY, not on CPAP, gout, diastolic CHF, CKD, HTN, morbid obesity , bipolar, depression, non compliance and recent admission fro HTN and YOCASTA who presented with SOB and was found to have acute resp failure due to HTN emergency. 1- HTN emergency: BP improved with on eincreased reading before meds this am - cont coreg, HZN, and Norvasc. - if needed meds can be adjusted . repeat BP 2- Elevated trop: due to demand ischemia insetting of HTN emergency. avoid any Qtc prolongiing agents due to long QTC 3- Acute diastolic CHF: improved . not needing O2 any more . renal function worsening - hold lasix for today . if to resume will resume po lasix. appreciate card input 4- YOCASTA on CKD: with nephrotic range proteinuria. cr is worse today - hold lasix - monitor renal function - d/w Dr. Raphael today - renal Bx will be offered as inpatient. 5-Bipolar and depression : cont Abilify and f/u with psych [place] DVT Px HLOC A
[2018-07-26] MEDS ORDERED: hydrALAZINE HCL 50 MG TABLET (FP) PO ONE (12:50)
[2018-07-26] MEDS: FUROSEMIDE 40 MG/4 ML INJECTABLE VIAL IVPUSH SCH (13:04)
--- NOTE | 2018-07-26 13:17 | PN ---
Physical Exam: SUBJECTIVE: Patient seen and examined this morning. Says his breathing has improved. Tolerating diet overnight. No longer using supplemental O2. No new complaints. No overnight events as per nursing staff. OBJECTIVE: Vital Signs Period Temp Pulse Resp BP Sys/Castillo Pulse Ox Last 24 Hr 97.6 F-98.2 F 82-93 18-20 135-185/86-107 94-98 GENERAL: A&Ox3, NAD HEAD: NCAT EYES: PERRL, EOMI LUNGS: CTAB, Decreased breath sounds at the bases however HEART: Regular rate and rhythm, normal S1 and S2 without murmur ABDOMEN: Soft, nontender, not distended, + bowel sounds, no guarding LOWER EXTREMITIES: 2+ pulses, Edema improving NEUROLOGICAL: Cranial nerves II-XII intact. Normal speech SKIN: Warm, dry Laboratory Results - last 24 hr 07/25/18 07/26/18 07/26/18 12:47 05:30 05:30 WBC 7.4 RBC 3.58 L Hgb 9.2 L Hct 27.2 L MCV 76.0 L MCH 25.6 L MCHC 33.7 RDW 17.6 H Plt Count 229 MPV 9.3 Absolute Neuts (auto) 5.6 Neutrophils % 76.4 Lymphocytes % 11.5 Monocytes % 8.3 Eosinophils % 3.4 Basophils % 0.4 Nucleated RBC % 0 Sodium 141 Potassium 3.7 Chloride 110 H Carbon Dioxide 21 Anion Gap 10 BUN 72 H Creatinine 4.4 H Creat Clearance w eGFR 13.98 POC Glucometer 103.63282 Random Glucose 99 Calcium 7.4 L Phosphorus 7.0 H Magnesium 2.3 Microbiology 07/24/18 08:53 Blood - Peripheral Venous Blood Culture - Preliminary NO GROWTH OBTAINED AFTER 48 HOURS, INCUBATION TO CONTINUE FOR 3 DAYS. 07/24/18 08:53 Blood - Peripheral Venous Blood Culture - Preliminary NO GROWTH OBTAINED AFTER 48 HOURS, INCUBATION TO CONTINUE FOR 3 DAYS. 07/24/18 09:43 Nasopharyngeal Swab Influenza Types A,B Antigen - Final 07/24/18 09:43 Nasopharyngeal Swab - Final Active Medications Amlodipine Besylate (Norvasc -) 10 mg PO DAILY [facility] Last Admin: 07/26/18 10:12 Dose: 10 mg Aripiprazole (Abilify) 10 mg PO DAILY [facility] Last Admin: 07/26/18 10:12 Dose: 10 mg Carvedilol (Coreg -) 25 mg PO BID [facility] Last Admin: 07/26/18 10:12 Dose: 25 mg Heparin Sodium (Porcine) (Heparin -) 5,000 unit SQ TID [facility] Last Admin: 07/26/18 06:11 Dose: 5,000 unit Hydralazine HCl (Apresoline -) 75 mg PO ONCE ONE Stop: 07/26/18 12:51 Hydralazine HCl (Apresoline -) 75 mg PO TID [facility] IMAGING: -CXR (07/24): Since 06/17/2018, there are new congestive changes with chin artifact and prominent mediastinum. -CXR (07/26): Worse. Progressive pulmonary and pleural changes since 07/24/2018. -Kidney/Renal US: Echogenic kidneys consistent with chronic medical renal disease. No evidence of hydronephrosis or acute pathology. -EKG: SINUS TACHYCARDIA WITH FREQUENT PREMATURE VENTRICULAR COMPLEXES, VR 116, QTc 497 ASSESSMENT/PLAN: 58 y/o M with PMHx of ?CHF, NIDDM, HTN, HLD presents to [facility] with SOB #SOB -Likely due to Acute Diastolic CHF from not taking his prescribed medications -Was on Bipap (Ipap 14, Epap 6, Rate 16, O2 45%), Given IV Lasix 80mg and started on Nitro drip in ED -Currently on RA -CXR repeated today noted above -ECHO (06/17/18): LV EF is normal, LV Wall motion is normal, Trace MR, E/A Reversal consistent with but not diagnostic of poor LV compliance -Further Diuresis held in the setting of worsening Cr #HTN Emergency -Continue Home dose Norvasc, Coreg, Hydralazine; Continue to monitor BP as one reading was elevated -Cardiology (Dr. Maddox) Consulted, Appreciate Rec's -Trop 0.08 x2 -EKG Reveals Sinus tachycardia with Trigeminy -No repeat echo or ischemia workup at this point -Avoid QTc prolonging medications (QTc 497) #YOCASTA -Nephrotic range Proteinuria -Worsening Cr, Lasix held pending Nephro -Nephrology (Dr. Raphael) Consulted -Avoid Nephrotoxic medications -Renal US noted above -Renal bx refused #Bipolar disorder -Psych (Dr. Limon) consulted, Appreicate rec's -Started on Abilify -Will need outpatient Psych follow up #FEN -PO Fluids -Continue to monitor Hypernatremia -Sodium Controlled diet #PPx -DVT: Heparin Dispo: Admit to Tele Visit type - Emergency Visit Emergency Visit: Yes ED Registration Date: 07/24/18 Care time: The patient presented to the Emergency Department on the above date and was hospitalized for further evaluation of their emergent condition. - New Patient This patient is new to me today: No - Critical Care Critical Care patient: No - Discharge Referral Referred to [facility] Med P.C.: No
--- NOTE | 2018-07-26 15:35 | PN ---
Progress Note, Physician History of Present Illness: Pt seen and examined at bedside. He is awake and alert. He feels that his breathing and lower ext edema are improved. - Current Medication List Current Medications: Active Medications Amlodipine Besylate (Norvasc -) 10 mg PO DAILY [facility] Last Admin: 07/26/18 10:12 Dose: 10 mg Aripiprazole (Abilify) 10 mg PO DAILY [facility] Last Admin: 07/26/18 10:12 Dose: 10 mg Carvedilol (Coreg -) 25 mg PO BID [facility] Last Admin: 07/26/18 10:12 Dose: 25 mg Heparin Sodium (Porcine) (Heparin -) 5,000 unit SQ TID [facility] Last Admin: 07/26/18 13:13 Dose: 5,000 unit Hydralazine HCl (Apresoline -) 75 mg PO TID [facility] Last Admin: 07/26/18 15:08 Dose: Not Given - Objective Vital Signs: Vital Signs Temperature 98.2 F 07/26/18 05:00 Pulse Rate 82 07/26/18 09:00 Respiratory Rate 18 07/26/18 09:00 Blood Pressure 185/102 H 07/26/18 09:00 O2 Sat by Pulse Oximetry (%) 94 L 07/26/18 09:00 Constitutional: Yes: Calm Eyes: Yes: Conjunctiva Clear HENT: Yes: Atraumatic Cardiovascular: Yes: S1, S2 Respiratory: Yes: CTA Bilaterally Gastrointestinal: Yes: Soft, Abdomen, Obese Musculoskeletal: Yes: WNL Extremities: Yes: WNL Edema: No Neurological: Yes: Oriented Psychiatric: Yes: Oriented Labs: CBC, BMP 07/26/18 05:30 07/26/18 05:30 INR, PTT INR 0.98 (0.83-1.09) 07/24/18 01:30 EST Problem List - Problems (1) CHF (congestive heart failure) Code(s): I50.9 - HEART FAILURE, UNSPECIFIED Qualifiers: Heart failure type: unspecified Heart failure chronicity: acute on chronic Qualified Code(s): I50.9 - Heart failure, unspecified (2) YOCASTA (acute kidney injury) Code(s): N17.9 - ACUTE KIDNEY FAILURE, UNSPECIFIED (3) CKD (chronic kidney disease) Code(s): N18.9 - CHRONIC KIDNEY DISEASE, UNSPECIFIED Assessment/Plan Current Medications Generic Name Dose Route Start Last Admin Trade Name Vandana PRN Reason Stop Dose Admin Amlodipine Besylate 10 mg 07/25/18 10:00 07/26/18 10:12 Norvasc - PO 10 mg DAILY RONALD Administration Aripiprazole 10 mg 07/26/18 10:00 07/26/18 10:12 Abilify PO 10 mg DAILY RONALD Administration Carvedilol 25 mg 07/24/18 22:00 07/26/18 10:12 Coreg - PO 25 mg BID RONALD Administration Heparin Sodium (Porcine) 5,000 unit 07/24/18 07:30 07/26/18 13:13 Heparin - SQ 5,000 unit TID RONALD Administration Hydralazine HCl 75 mg 07/26/18 14:00 07/26/18 15:08 Apresoline - PO Not Given TID RONALD Impression 1. YOCASTA 2. CKD 3. volume overload 4. HTN 5. CHF 6. DM 7. hx bipolar 8. gout Plan - hold lasix - repeat labs in am, renal function worsening - pt refused kidney biopsy. He says he wants to follow as oupt. He did not follow after his last hospitalization - unable to start jaskaran or arb as he is in failure - reviewed echo from May - avoid nsaids - will need further workup - discussed with medical team
[2018-07-27] MEDS: hydrALAZINE HCL 50 MG TABLET (FP) PO SCH ×3 (05:22→21:10)
[2018-07-27] MEDS: HEPARIN NA (PORCINE) 5,000 UNITS/ML 1ML VIAL SQ SCH ×3 (05:23→21:10)
[2018-07-27 07:11] LABS: ALBUMIN 2.2 g/dl (3.4-5.0); ALK PHOS 107 U/L (45-117); ANION GAP 11 MMOL/L (8-16); BILIRUBIN,TOTAL 0.3 mg/dL (0.2-1); BLOOD UREA NITROGEN 64 mg/dL (7-18); CALCIUM 7.3 mg/dL (8.5-10.1); CHLORIDE 111 mmol/L (98-107); CO2 21 mmol/L (21-32); CREATININE 4.2 mg/dL (0.55-1.3); GLUCOSE,RANDOM 99 mg/dL (74-106); MAGNESIUM 2.2 mg/dL (1.8-2.4); PHOSPHOROUS 5.7 mg/dL (2.5-4.9); POTASSIUM 3.8 mmol/L (3.5-5.1); SGOT/AST 17 U/L (15-37); SGPT/ALT 15 U/L (13-61); SODIUM 144 mmol/L (136-145); TOT PROT 6.3 g/dl (6.4-8.2)
--- NOTE | 2018-07-27 08:09 | PN ---
Teaching Attending Note Name of Resident: Gisel Shah ATTENDING PHYSICIAN STATEMENT I saw and evaluated the patient. I reviewed the resident's note and discussed the case with the resident. I agree with the resident's findings and plan as documented. SUBJECTIVE: Patient is comfortable with no acute distress, OBJECTIVE: Vital Signs Temperature 98.2 F 07/27/18 05:00 Pulse Rate 85 07/27/18 05:00 Respiratory Rate 20 07/27/18 05:00 Blood Pressure 165/90 07/27/18 06:43 O2 Sat by Pulse Oximetry (%) 96 07/26/18 21:00 GENERAL: A&Ox3, NAD HEAD: NCAT;EYES: PERRL, EOMI LUNGS: CTAB, Decreased breath sounds at the bases however HEART: Regular rate and rhythm, normal S1 and S2 without murmur ABDOMEN: Soft, nontender, not distended, + bowel sounds, no guarding LOWER EXTREMITIES: 2+ pulses, Edema improving NEUROLOGICAL: Cranial nerves II-XII intact. Normal speech SKIN: Warm, dry CBCD WBC 7.4 K/mm3 (4.0-10.0) 07/26/18 05:30 RBC 3.58 M/mm3 (4.00-5.60) L 07/26/18 05:30 Hgb 9.2 GM/dL (11.7-16.9) L 07/26/18 05:30 Hct 27.2 % (35.4-49) L 07/26/18 05:30 MCV 76.0 fl (80-96) L 07/26/18 05:30 MCHC 33.7 g/dl (32.0-35.9) 07/26/18 05:30 RDW 17.6 % (11.9-15.9) H 07/26/18 05:30 Plt Count 229 K/MM3 (134-434) 07/26/18 05:30 MPV 9.3 fl (7.5-11.1) 07/26/18 05:30 CMP Sodium 144 mmol/L (136-145) 07/27/18 05:30 Potassium 3.8 mmol/L (3.5-5.1) 07/27/18 05:30 Chloride 111 mmol/L (98-107) H 07/27/18 05:30 Carbon Dioxide 21 mmol/L (21-32) 07/27/18 05:30 Anion Gap 11 MMOL/L (8-16) 07/27/18 05:30 BUN 64 mg/dL (7-18) H 07/27/18 05:30 Creatinine 4.2 mg/dL (0.55-1.3) H 07/27/18 05:30 Creat Clearance w eGFR 14.75 (>60) 07/27/18 05:30 Random Glucose 99 mg/dL (74-106) 07/27/18 05:30 Calcium 7.3 mg/dL (8.5-10.1) L 07/27/18 05:30 Total Bilirubin 0.3 mg/dL (0.2-1) 07/27/18 05:30 AST 17 U/L (15-37) 07/27/18 05:30 ALT 15 U/L (13-61) 07/27/18 05:30 Alkaline Phosphatase 107 U/L (45-117) 07/27/18 05:30 Total Protein 6.3 g/dl (6.4-8.2) L 07/27/18 05:30 Albumin 2.2 g/dl (3.4-5.0) L 07/27/18 05:30 CARDIAC ENZYMES Creatine Kinase 189 IU/L (26-308) 07/24/18 05:03 Troponin I 0.07 ng/ml (0.00-0.05) H 07/24/18 12:14 Current Medications Generic Name Dose Route Start Last Admin Trade Name Amilcarq PRN Reason Stop Dose Admin Amlodipine Besylate 10 mg 07/25/18 10:00 07/26/18 10:12 Norvasc - PO 10 mg DAILY RONALD Administration Aripiprazole 10 mg 07/26/18 10:00 07/26/18 10:12 Abilify PO 10 mg DAILY RONALD Administration Carvedilol 25 mg 07/24/18 22:00 07/26/18 21:23 Coreg - PO 25 mg BID RONALD Administration Heparin Sodium (Porcine) 5,000 unit 07/24/18 07:30 07/27/18 05:23 Heparin - SQ 5,000 unit TID RONALD Administration Hydralazine HCl 75 mg 07/26/18 14:00 07/27/18 05:22 Apresoline - PO 75 mg TID RONALD Administration Home Medications Medication Instructions Recorded Amlodipine Besylate 10 mg PO DAILY 04/24/17 Aripiprazole [Abilify] 10 mg PO DAILY 04/24/17 Atorvastatin Ca [Lipitor] 40 mg PO HS 04/24/17 Carvedilol 25 mg PO BID 04/24/17 Hydralazine HCl 50 mg PO TID 04/24/17 Valsartan 320 mg PO DAILY 04/24/17 Carvedilol 1 tab PO BID 07/25/18 ASSESSMENT AND PLAN: Patient is a 58 y/o man with h/o MOLLY, not on CPAP, gout, diastolic CHF, CKD, HTN , morbid obesity , bipolar, depression, non compliance and recent admission fro HTN and YOCASTA who presented with SOB and was found to have acute respiratory failure due to HTN emergency. # HTN emergency: BP improving but not optimum yet, cont. coreg, HZN, and Norvasc. Further adjustment if needed. continue to monitor BP # Elevated trop: due to demand ischemia due to HTN emergency. # QTc prolonged , avoid any Qtc prolonging agents # Acute diastolic CHF: improved but renal function worsening , continue to hold lasix. # YOCASTA on CKD: with nephrotic range proteinuria. creatinine is worse today, hold lasix and further management per Nephro. continue to monitor renal Bx will be offered as inpatient. # Bipolar and depression : cont Abilify and f/u with psych at [facility]. DVT Px : heparin q
[2018-07-27] MEDS: amLODIPine BESYLATE 10 MG TABLET (FP) PO SCH (10:22)
[2018-07-27] MEDS: CARVEDILOL 25 MG TABLET (FP) PO SCH ×2 (10:22→21:10)
[2018-07-27] MEDS ORDERED: PT OWN MED DRAWER 7, Y5N ONE (10:22)
[2018-07-27] MEDS: ARIPiprazole 10 MG TABLET PO SCH (10:23)
--- NOTE | 2018-07-27 11:20 | PN ---
Progress Note, Physician History of Present Illness: Pt seen and examined at bedside. He is awake and alert. He denies shortness of breath today. - Current Medication List Current Medications: Active Medications Amlodipine Besylate (Norvasc -) 10 mg PO DAILY [facility] Last Admin: 07/27/18 10:22 Dose: 10 mg Aripiprazole (Abilify) 10 mg PO DAILY [facility] Last Admin: 07/27/18 10:23 Dose: 10 mg Carvedilol (Coreg -) 25 mg PO BID [facility] Last Admin: 07/27/18 10:22 Dose: 25 mg Heparin Sodium (Porcine) (Heparin -) 5,000 unit SQ TID [facility] Last Admin: 07/27/18 05:23 Dose: 5,000 unit Hydralazine HCl (Apresoline -) 75 mg PO TID [facility] Last Admin: 07/27/18 05:22 Dose: 75 mg - Objective Vital Signs: Vital Signs Temperature 98.0 F 07/27/18 08:33 Pulse Rate 93 H 07/27/18 08:33 Respiratory Rate 22 H 07/27/18 08:33 Blood Pressure 162/67 07/27/18 08:33 O2 Sat by Pulse Oximetry (%) 98 07/27/18 08:33 Constitutional: Yes: Calm Eyes: Yes: Conjunctiva Clear HENT: Yes: Atraumatic Cardiovascular: Yes: S1, S2 Respiratory: Yes: CTA Bilaterally Gastrointestinal: Yes: Soft, Abdomen, Obese Genitourinary: Yes: WNL Musculoskeletal: Yes: WNL Edema: No Neurological: Yes: Oriented Psychiatric: Yes: Oriented Labs: CBC, BMP 07/26/18 05:30 07/27/18 05:30 INR, PTT INR 0.98 (0.83-1.09) 07/24/18 01:30 EST Problem List - Problems (1) CHF (congestive heart failure) Code(s): I50.9 - HEART FAILURE, UNSPECIFIED Qualifiers: Heart failure type: unspecified Heart failure chronicity: acute on chronic Qualified Code(s): I50.9 - Heart failure, unspecified (2) YOCASTA (acute kidney injury) Code(s): N17.9 - ACUTE KIDNEY FAILURE, UNSPECIFIED (3) CKD (chronic kidney disease) Code(s): N18.9 - CHRONIC KIDNEY DISEASE, UNSPECIFIED Assessment/Plan Current Medications Generic Name Dose Route Start Last Admin Trade Name Vandana PRN Reason Stop Dose Admin Amlodipine Besylate 10 mg 07/25/18 10:00 07/27/18 10:22 Norvasc - PO 10 mg DAILY RONALD Administration Aripiprazole 10 mg 07/26/18 10:00 07/27/18 10:23 Abilify PO 10 mg DAILY RONALD Administration Carvedilol 25 mg 07/24/18 22:00 07/27/18 10:22 Coreg - PO 25 mg BID RONALD Administration Heparin Sodium (Porcine) 5,000 unit 07/24/18 07:30 07/27/18 05:23 Heparin - SQ 5,000 unit TID RONALD Administration Hydralazine HCl 75 mg 07/26/18 14:00 07/27/18 05:22 Apresoline - PO 75 mg TID RONALD Administration Impression 1. YOCASTA 2. CKD 3. volume overload 4. HTN 5. CHF 6. DM 7. hx bipolar 8. gout Plan - increase hydralazine dose - hold lasix - renal function starting to improve - pt still refusing kidney biopsy - unable to start jaskaran or arb as he is in renal failure - avoid nsaids - will need further workup
--- NOTE | 2018-07-27 12:42 | PN ---
Progress Note (short form) - Note Progress Note: PULMONARY CONSULTATION DICTATED 07/27/18 IMP DYSPNEA ACUTE ON CHRONIC DIASTOLIC HF HYPERTENSIVE UREGENCY MEDICAL AND DIETARY NON-COMPLIANCE NIDDM ACUTE ON CHRONIC KIDNEY DISEASE HLD MORBID OBESITY LIKELY OSAS PLAN O2 LASIX PER RENAL DAILY WT MONITOR BP TITRATE BP MEDS F/U CHEST X-RAYS SLEEP SCREEN MONITOR LYTES,RENAL FUNCTION STRESS COMPLIANCE WITH MEDS AND DIET WT REDUCTION DR MONTELONGO Problem List - Problems (1) Hypertension Code(s): I10 - ESSENTIAL (PRIMARY) HYPERTENSION (2) YOCASTA (acute kidney injury) Code(s): N17.9 - ACUTE KIDNEY FAILURE, UNSPECIFIED (3) CHF (congestive heart failure) Code(s): I50.9 - HEART FAILURE, UNSPECIFIED Qualifiers: Heart failure type: unspecified Heart failure chronicity: acute on chronic Qualified Code(s): I50.9 - Heart failure, unspecified (4) CKD (chronic kidney disease) Code(s): N18.9 - CHRONIC KIDNEY DISEASE, UNSPECIFIED (5) Hypertensive urgency Code(s): I16.0 - HYPERTENSIVE URGENCY (6) Morbid (severe) obesity due to excess calories Code(s): E66.01 - MORBID (SEVERE) OBESITY DUE TO EXCESS CALORIES (7) MOLLY (obstructive sleep apnea) Code(s): G47.33 - OBSTRUCTIVE SLEEP APNEA (ADULT) (PEDIATRIC) (8) Non compliance w medication regimen Code(s): Z91.14 - PATIENT'S OTHER NONCOMPLIANCE WITH MEDICATION REGIMEN (9) Diabetes Code(s): E11.9 - TYPE 2 DIABETES MELLITUS WITHOUT COMPLICATIONS (10) Dyspnea Code(s): R06.00 - DYSPNEA, UNSPECIFIED
--- NOTE | 2018-07-27 13:30 | PN ---
Physical Exam: SUBJECTIVE: Patient seen and examined this morning at bedside. Later seen ambulating with PT. No acute events overnight. No new complaints. OBJECTIVE: Vital Signs Period Temp Pulse Resp BP Sys/Castillo Pulse Ox Last 24 Hr 97.7 F-98.5 F 82-96 18-22 150-180/67-122 96-98 GENERAL: A&Ox3, NAD HEAD: NCAT EYES: PERRL, EOMI LUNGS: CTAB, Decreased breath sounds at the bases however HEART: Regular rate and rhythm, normal S1 and S2 without murmur ABDOMEN: Soft, nontender, not distended, + bowel sounds, no guarding LOWER EXTREMITIES: 2+ pulses, Edema improving NEUROLOGICAL: Cranial nerves II-XII intact. Normal speech SKIN: Warm, dry Laboratory Results - last 24 hr 07/27/18 05:30 Sodium 144 Potassium 3.8 Chloride 111 H Carbon Dioxide 21 Anion Gap 11 BUN 64 H Creatinine 4.2 H Creat Clearance w eGFR 14.75 Random Glucose 99 Calcium 7.3 L Phosphorus 5.7 H Magnesium 2.2 Total Bilirubin 0.3 AST 17 ALT 15 Alkaline Phosphatase 107 Total Protein 6.3 L Albumin 2.2 L Microbiology 07/24/18 08:53 Blood - Peripheral Venous Blood Culture - Preliminary NO GROWTH OBTAINED AFTER 72 HOURS, INCUBATION TO CONTINUE FOR 2 DAYS. 07/24/18 08:53 Blood - Peripheral Venous Blood Culture - Preliminary NO GROWTH OBTAINED AFTER 72 HOURS, INCUBATION TO CONTINUE FOR 2 DAYS. 07/24/18 09:43 Nasopharyngeal Swab Influenza Types A,B Antigen - Final 07/24/18 09:43 Nasopharyngeal Swab - Final Active Medications Amlodipine Besylate (Norvasc -) 10 mg PO DAILY [facility] Last Admin: 07/27/18 10:22 Dose: 10 mg Aripiprazole (Abilify) 10 mg PO DAILY [facility] Last Admin: 07/27/18 10:23 Dose: 10 mg Carvedilol (Coreg -) 25 mg PO BID [facility] Last Admin: 07/27/18 10:22 Dose: 25 mg Heparin Sodium (Porcine) (Heparin -) 5,000 unit SQ TID [facility] Last Admin: 07/27/18 05:23 Dose: 5,000 unit Hydralazine HCl (Apresoline -) 100 mg PO TID [facility] IMAGING: -CXR (07/24): Since 06/17/2018, there are new congestive changes with chin artifact and prominent mediastinum. -CXR (07/26): Worse. Progressive pulmonary and pleural changes since 07/24/2018. -Kidney/Renal US: Echogenic kidneys consistent with chronic medical renal disease. No evidence of hydronephrosis or acute pathology. -EKG: SINUS TACHYCARDIA WITH FREQUENT PREMATURE VENTRICULAR COMPLEXES, VR 116, QTc 497 ASSESSMENT/PLAN: 58 y/o M with PMHx of ?CHF, NIDDM, HTN, HLD presents to [facility] with SOB #SOB -Likely due to Acute Diastolic CHF from not taking his prescribed medications -Was on Bipap (Ipap 14, Epap 6, Rate 16, O2 45%), Given IV Lasix 80mg and started on Nitro drip in ED -Currently on RA -ECHO (06/17/18): LV EF is normal, LV Wall motion is normal, Trace MR, E/A Reversal consistent with but not diagnostic of poor LV compliance -Further Diuresis held in the setting of worsening Cr #HTN Emergency -Continue Home dose Norvasc, Coreg, Continue to monitor BP as one reading was elevated -Hydralazine dose increased to 100mg TID -Cardiology (Dr. Maddox) Consulted, Appreciate Rec's -Trop 0.08 x2 -EKG Reveals Sinus tachycardia with Trigeminy -No repeat echo or ischemia workup at this point -Avoid QTc prolonging medications (QTc 497) #YOCASTA -Nephrotic range Proteinuria -Cr improving today, Lasix held pending Nephro -Nephrology (Dr. Raphael) Consulted -Avoid Nephrotoxic medications -Renal US noted above -Renal bx refused #Bipolar disorder -Psych (Dr. Limon) consulted, Appreicate rec's -Continue on Abilify -Will need outpatient Psych follow up #FEN -PO Fluids -Continue to monitor Hypernatremia -Sodium Controlled diet #PPx -DVT: Heparin Dispo: Admit to Tele Visit type - Emergency Visit Emergency Visit: Yes ED Registration Date: 07/24/18 Care time: The patient presented to the Emergency Department on the above date and was hospitalized for further evaluation of their emergent condition. - New Patient This patient is new to me today: No - Critical Care Critical Care patient: No - Discharge Referral Referred to [facility] Med P.C.: No
--- NOTE | 2018-07-27 14:47 | CONS ---
DATE OF CONSULTATION: 07/27/2018 PULMONARY CONSULTATION REFERRING PHYSICIAN: Silvia Cohen MD HISTORY OF PRESENT ILLNESS: The patient is a 58-year-old black male with a past medical history of diastolic congestive heart failure, njz-qjliaea-nymxvwjcv diabetes mellitus, chronic kidney disease, hypertension, hyperlipidemia and morbid obesity admitted to [facility] on July 24, 2018 secondary to increasing shortness of breath and dyspnea on exertion. The patient was recently hospitalized in [facility] secondary to hypertension and congestive heart failure. He was discharged home in stable condition but did not take his medications at home. A couple days prior to this admission, the patient started to feel increasing shortness of breath with minimal exertion. He denied any chest pain, nausea, vomiting or diaphoresis. He did complain of some dizziness. He presented to the emergency room, where he was noted to be markedly hypertensive with a blood pressure of 212/147. He was started on IV nitroglycerin and Lasix with good response and he was transferred to a medical floor for further management. The patient is a nonsmoker. He has no history of occupational exposure to chemicals or fumes. He denies any history of DVT or pulmonary emboli in the past. There is no history of recent travel. He states that he sleeps on two to three pillows and frequently has paroxysmal nocturnal dyspnea. He also states that he has daytime sleepiness and has had witnessed apneic episodes. PAST MEDICAL HISTORY: Again, this includes diastolic congestive heart failure, fdw-tttkxdd-batdpwttt diabetes mellitus, chronic kidney disease, hypertension, hyperlipidemia, morbid obesity, gout and bipolar. REVIEW OF SYSTEMS: Positive for orthopnea and dyspnea on exertion. No cough, chest pain or palpitations. No fevers or chills. No hemoptysis. SOCIAL HISTORY: Nonsmoker. No occupational exposures. CURRENT MEDICATIONS: Apresoline, Norvasc, Coreg, Abilify and heparin. PHYSICAL EXAMINATION: General: The patient is a morbidly obese black male, awake and alert, dyspneic, in no acute distress. Vital Signs: He is afebrile. Blood pressure is 152/67, respiratory rate 20, O2 saturation is 98% on room air. HEENT: Head is normocephalic, atraumatic. Neck: Supple. Heart: Regular, S1, S2. Chest: Bibasilar crackles. Abdomen: Soft. Bowel sounds are positive. Extremities: There is 1+ edema bilaterally. A chest x-ray shows cardiomegaly and bilateral pulmonary vascular congestion. IMPRESSION: 1. Dyspnea secondary to apera-fs-ilrotxr congestive heart failure, likely secondary to noncompliance with medication. 2. Hypertensive urgency. 3. Morbid obesity. 4. Likely obstructive sleep apnea. 5. Hyperlipidemia. 6. Hypertension. 7. Zaklk-dj-oytijdc kidney disease. 8. Diabetes mellitus. 9. Dietary and medical noncompliance. PLAN: 1. Continue IV Lasix as per Renal and Cardiology. 2. Continue supplemental O2. 3. Anti-hypertensive medications as per Renal. 4. Monitor BUN and creatinine. 5. Obtain a sleep study. 6. Daily weights. 7. Stressed compliance with medication and diet for weight reduction. Consider bariatric surgical consultation. 8. Monitor blood pressures. YADY MONTELONGO M.D. [id number]
[2018-07-27] MEDS ORDERED: ACETAMINOPHEN 325 MG TABLET (FP) PO ONE (21:15)
[2018-07-28] MEDS: HEPARIN NA (PORCINE) 5,000 UNITS/ML 1ML VIAL SQ SCH ×3 (06:01→22:46)
[2018-07-28] MEDS: hydrALAZINE HCL 50 MG TABLET (FP) PO SCH ×3 (06:01→22:46)
--- NOTE | 2018-07-28 09:35 | PN ---
Progress Note (short form) - Note Progress Note: PULMONARY States breathing better today. No chest pain or significant cough. Vital Signs Period Temp Pulse Resp BP Sys/Castillo Pulse Ox Last 24 Hr 97.5 F-98.6 F 88-95 20-20 139-161/85-112 95 Intake & Output 07/25/18 07/26/18 07/27/18 07/28/18 23:59 23:59 23:59 23:59 Intake Total 490 200 600 200 Balance 490 200 600 200 Weight 147.077 kg 145.15 kg 144.242 kg 144.696 kg Gen: NAD at rest Heart: RRR Lung: scattered wheezes Abd: soft, nontender Ext: distal edema CBC, BMP 07/26/18 05:30 Active Medications Amlodipine Besylate (Norvasc -) 10 mg PO DAILY [facility] Aripiprazole (Abilify) 10 mg PO DAILY [facility] Last Admin: 07/27/18 10:23 Dose: 10 mg Carvedilol (Coreg -) 25 mg PO BID [facility] Last Admin: 07/27/18 21:10 Dose: 25 mg Heparin Sodium (Porcine) (Heparin -) 5,000 unit SQ TID [facility] Last Admin: 07/28/18 06:01 Dose: 5,000 unit Hydralazine HCl (Apresoline -) 100 mg PO TID [facility] Last Admin: 07/28/18 06:01 Dose: 100 mg A/P Acute on Chronic Diastolic Heart Failure Hypertensive Urgency improving Acute on Chronic Renal Failure DM Hyperlipidemia Morbid Obesity Likely MOLLY - lasix as needed - monitor urine output, creatinine - daily weights - O2 to keep SpO2 >90% - will add inhaled bronchodilators for wheezing - can defer systemic steroids at this time - PFTs, PSG as outpt - DVT prophylaxis
[2018-07-28] MEDS ORDERED: ALBUTEROL SO4 0.083% IH SOL 2.5 MG/3 ML VIAL.NEB. NEB PRN (09:37)
[2018-07-28 09:51] LABS: ANION GAP 14 MMOL/L (8-16); BLOOD UREA NITROGEN 56 mg/dL (7-18); CALCIUM 7.4 mg/dL (8.5-10.1); CHLORIDE 110 mmol/L (98-107); CO2 21 mmol/L (21-32); GLUCOSE,RANDOM 144 mg/dL (74-106); MAGNESIUM 2.1 mg/dL (1.8-2.4); PHOSPHOROUS 4.1 mg/dL (2.5-4.9); POTASSIUM 3.7 mmol/L (3.5-5.1); SODIUM 145 mmol/L (136-145)
[2018-07-28] MEDS ORDERED: PT OWN MED DRAWER 7, Y5N ONE (10:33)
[2018-07-28] MEDS: CARVEDILOL 25 MG TABLET (FP) PO SCH ×2 (10:44→22:46)
[2018-07-28] MEDS: amLODIPine BESYLATE 10 MG TABLET (FP) PO SCH (10:44)
[2018-07-28] MEDS: ARIPiprazole 10 MG TABLET PO SCH (10:45)
[2018-07-28] MEDS: ALBUTEROL SO4 2.5/IPRATROPIUM 0.5 INH SOL 3 ML VIAL.NEB. NEB SCH ×2 (14:05→20:42)
[2018-07-28 16:01] VITALS: BMI 47.1
--- NOTE | 2018-07-28 16:28 | PN ---
Progress Note, Physician History of Present Illness: Pt seen and examined at bedside. He is awake and alert. He denies shortness of breath. - Current Medication List Current Medications: Active Medications Albuterol Sulfate (Ventolin 0.083% Nebulizer Soln -) 1 amp NEB Q4H PRN PRN Reason: SHORT OF BREATH/WHEEZING Albuterol/Ipratropium (Duoneb -) 1 amp NEB RTID RONALD Amlodipine Besylate (Norvasc -) 10 mg PO DAILY [facility] Last Admin: 07/28/18 10:44 Dose: 10 mg Aripiprazole (Abilify) 10 mg PO DAILY [facility] Last Admin: 07/28/18 10:45 Dose: 10 mg Carvedilol (Coreg -) 25 mg PO BID [facility] Last Admin: 07/28/18 10:44 Dose: 25 mg Heparin Sodium (Porcine) (Heparin -) 5,000 unit SQ TID [facility] Last Admin: 07/28/18 06:01 Dose: 5,000 unit Hydralazine HCl (Apresoline -) 100 mg PO TID [facility] Last Admin: 07/28/18 06:01 Dose: 100 mg - Objective Vital Signs: Vital Signs Temperature 98.8 F 07/28/18 15:00 Pulse Rate 95 H 07/28/18 10:00 Respiratory Rate 20 07/28/18 15:00 Blood Pressure 145/83 07/28/18 15:00 O2 Sat by Pulse Oximetry (%) 95 07/28/18 09:00 Constitutional: Yes: Calm Eyes: Yes: Conjunctiva Clear HENT: Yes: Atraumatic Cardiovascular: Yes: S1, S2 Respiratory: Yes: CTA Bilaterally Gastrointestinal: Yes: Soft, Abdomen, Obese Genitourinary: Yes: WNL Musculoskeletal: Yes: WNL Edema: No Neurological: Yes: Oriented Psychiatric: Yes: Oriented Labs: CBC, BMP 07/26/18 05:30 07/28/18 09:14 INR, PTT INR 0.98 (0.83-1.09) 07/24/18 01:30 EST Problem List - Problems (1) CHF (congestive heart failure) Code(s): I50.9 - HEART FAILURE, UNSPECIFIED Qualifiers: Heart failure type: unspecified Heart failure chronicity: acute on chronic Qualified Code(s): I50.9 - Heart failure, unspecified (2) YOCASTA (acute kidney injury) Code(s): N17.9 - ACUTE KIDNEY FAILURE, UNSPECIFIED (3) CKD (chronic kidney disease) Code(s): N18.9 - CHRONIC KIDNEY DISEASE, UNSPECIFIED Assessment/Plan Current Medications Generic Name Dose Route Start Last Admin Trade Name Freq PRN Reason Stop Dose Admin Albuterol Sulfate 1 amp 07/28/18 09:37 Ventolin 0.083% Nebulizer Soln - NEB Q4H PRN SHORT OF BREATH/WHEEZING Albuterol/Ipratropium 1 amp 07/28/18 14:00 Duoneb - NEB RTID RONALD Amlodipine Besylate 10 mg 07/28/18 10:00 07/28/18 10:44 Norvasc - PO 10 mg DAILY RONALD Administration Aripiprazole 10 mg 07/26/18 10:00 07/28/18 10:45 Abilify PO 10 mg DAILY RONALD Administration Carvedilol 25 mg 07/27/18 22:00 07/28/18 10:44 Coreg - PO 25 mg BID RONALD Administration Heparin Sodium (Porcine) 5,000 unit 07/27/18 22:00 07/28/18 06:01 Heparin - SQ 5,000 unit TID RONALD Administration Hydralazine HCl 100 mg 07/27/18 11:20 07/28/18 06:01 Apresoline - PO 100 mg TID RONALD Administration Selected Entries 07/28/18 15:00 Blood Pressure 145/83 Impression 1. YOCASTA 2. CKD 3. volume overload 4. HTN 5. CHF 6. DM 7. hx bipolar 8. gout Plan - hold off lasix - volume status is stable - renal function is improving - repeat labs in am - bp starting to improve - pt still refusing kidney biopsy - unable to start jaskaran or arb as he is in renal failure - avoid nsaids
--- NOTE | 2018-07-28 17:58 | PN ---
Physical Exam: SUBJECTIVE: Patient seen and examined this morning at bedside. No longer experiencing SOB. No acute events overnight. No new complaints. OBJECTIVE: Vital Signs Period Temp Pulse Resp BP Sys/Castillo Pulse Ox Last 24 Hr 97.5 F-98.8 F 88-95 18-20 145-186/83-110 95-95 GENERAL: A&Ox3, NAD HEAD: NCAT EYES: PERRL, EOMI LUNGS: CTAB, Decreased breath sounds at the bases however HEART: Regular rate and rhythm, normal S1 and S2 without murmur ABDOMEN: Soft, nontender, not distended, + bowel sounds, no guarding LOWER EXTREMITIES: 2+ pulses, Edema improving NEUROLOGICAL: Cranial nerves II-XII intact. Normal speech SKIN: Warm, dry Laboratory Results - last 24 hr 07/28/18 09:14 Sodium 145 Potassium 3.7 Chloride 110 H Carbon Dioxide 21 Anion Gap 14 BUN 56 H Creatinine 4.0 H Creat Clearance w eGFR 15.61 Random Glucose 144 H Calcium 7.4 L Phosphorus 4.1 Magnesium 2.1 Microbiology 07/24/18 08:53 Blood - Peripheral Venous Blood Culture - Preliminary NO GROWTH OBTAINED AFTER 96 HOURS, INCUBATION TO CONTINUE FOR 1 DAYS. 07/24/18 08:53 Blood - Peripheral Venous Blood Culture - Preliminary NO GROWTH OBTAINED AFTER 96 HOURS, INCUBATION TO CONTINUE FOR 1 DAYS. 07/24/18 09:43 Nasopharyngeal Swab Influenza Types A,B Antigen - Final 07/24/18 09:43 Nasopharyngeal Swab - Final Active Medications Albuterol Sulfate (Ventolin 0.083% Nebulizer Soln -) 1 amp NEB Q4H PRN PRN Reason: SHORT OF BREATH/WHEEZING Albuterol/Ipratropium (Duoneb -) 1 amp NEB RTID REPLACED BY [facility] Last Admin: 07/28/18 14:05 Dose: 1 amp Amlodipine Besylate (Norvasc -) 10 mg PO DAILY REPLACED BY [facility] Last Admin: 07/28/18 10:44 Dose: 10 mg Aripiprazole (Abilify) 10 mg PO DAILY REPLACED BY [facility] Last Admin: 07/28/18 10:45 Dose: 10 mg Carvedilol (Coreg -) 25 mg PO BID REPLACED BY [facility] Last Admin: 07/28/18 10:44 Dose: 25 mg Heparin Sodium (Porcine) (Heparin -) 5,000 unit SQ TID REPLACED BY [facility] Last Admin: 07/28/18 14:50 Dose: 5,000 unit Hydralazine HCl (Apresoline -) 100 mg PO TID [facility] Last Admin: 07/28/18 14:51 Dose: 100 mg IMAGING: -CXR (07/24): Since 06/17/2018, there are new congestive changes with chin artifact and prominent mediastinum. -CXR (07/26): Worse. Progressive pulmonary and pleural changes since 07/24/2018. -Kidney/Renal US: Echogenic kidneys consistent with chronic medical renal disease. No evidence of hydronephrosis or acute pathology. -EKG: SINUS TACHYCARDIA WITH FREQUENT PREMATURE VENTRICULAR COMPLEXES, VR 116, QTc 497 ASSESSMENT/PLAN: 58 y/o M with PMHx of ?CHF, NIDDM, HTN, HLD presents to [facility] with SOB #SOB -Likely due to Acute Diastolic CHF from not taking his prescribed medications -Was on Bipap (Ipap 14, Epap 6, Rate 16, O2 45%), Given IV Lasix 80mg and started on Nitro drip in ED -Currently on RA -ECHO (06/17/18): LV EF is normal, LV Wall motion is normal, Trace MR, E/A Reversal consistent with but not diagnostic of poor LV compliance -Further Diuresis held in the setting of worsening Cr #HTN Emergency -Continue Home dose Norvasc, Coreg, Continue to monitor BP as one reading was elevated -Hydralazine dose increased to 100mg TID -Cardiology (Dr. Maddox) Consulted, Appreciate Rec's -Trop 0.08 x2 -EKG noted above -No repeat echo or ischemia workup at this point -Avoid QTc prolonging medications (QTc 497) #YOCASTA -Nephrotic range Proteinuria -Cr improving today, Lasix held pending Nephro -Nephrology (Dr. Raphael) Consulted -Avoid Nephrotoxic medications -Renal US noted above -Renal bx refused #Bipolar disorder -Psych (Dr. Limon) consulted, Appreicate rec's -Continue on Abilify -Will need outpatient Psych follow up #FEN -PO Fluids -Continue to monitor Hypernatremia -Sodium Controlled diet #PPx -DVT: Heparin Dispo: Admit to Tele Visit type - Emergency Visit Emergency Visit: Yes ED Registration Date: 07/24/18 Care time: The patient presented to the Emergency Department on the above date and was hospitalized for further evaluation of their emergent condition. - New Patient This patient is new to me today: No - Critical Care Critical Care patient: No - Discharge Referral Referred to [facility] Med P.C.: No
[2018-07-28 19:58] LABS: RATIO URIN PROTEIN/URIN CREAT 3.68 MG/DL
--- NOTE | 2018-07-28 19:58 | PN ---
Teaching Attending Note Name of Resident: Gisel Shah ATTENDING PHYSICIAN STATEMENT I saw and evaluated the patient. I reviewed the resident's note and discussed the case with the resident. I agree with the resident's findings and plan as documented. SUBJECTIVE: Patient is comfortable with no acute distress, no shortness of breath. OBJECTIVE: Vital Signs Temperature 97.6 F 07/28/18 17:04 Pulse Rate 91 H 07/28/18 17:04 Respiratory Rate 20 07/28/18 17:04 Blood Pressure 186/100 H 07/28/18 17:04 O2 Sat by Pulse Oximetry (%) 95 07/28/18 09:00 GENERAL: A&Ox3, NAD HEAD: NCAT;EYES: PERRL, EOMI LUNGS: CTAB, Decreased breath sounds at the bases however HEART: Regular rate and rhythm, normal S1 and S2 without murmur ABDOMEN: Soft, nontender, not distended, + bowel sounds, no guarding LOWER EXTREMITIES: 2+ pulses, Edema improving NEUROLOGICAL: Cranial nerves II-XII intact. Normal speech SKIN: Warm, dry CBCD WBC 7.4 K/mm3 (4.0-10.0) 07/26/18 05:30 RBC 3.58 M/mm3 (4.00-5.60) L 07/26/18 05:30 Hgb 9.2 GM/dL (11.7-16.9) L 07/26/18 05:30 Hct 27.2 % (35.4-49) L 07/26/18 05:30 MCV 76.0 fl (80-96) L 07/26/18 05:30 MCHC 33.7 g/dl (32.0-35.9) 07/26/18 05:30 RDW 17.6 % (11.9-15.9) H 07/26/18 05:30 Plt Count 229 K/MM3 (134-434) 07/26/18 05:30 MPV 9.3 fl (7.5-11.1) 07/26/18 05:30 CMP Sodium 145 mmol/L (136-145) 07/28/18 09:14 Potassium 3.7 mmol/L (3.5-5.1) 07/28/18 09:14 Chloride 110 mmol/L (98-107) H 07/28/18 09:14 Carbon Dioxide 21 mmol/L (21-32) 07/28/18 09:14 Anion Gap 14 MMOL/L (8-16) 07/28/18 09:14 BUN 56 mg/dL (7-18) H 07/28/18 09:14 Creatinine 4.0 mg/dL (0.55-1.3) H 07/28/18 09:14 Creat Clearance w eGFR 15.61 (>60) 07/28/18 09:14 Random Glucose 144 mg/dL (74-106) H 07/28/18 09:14 Calcium 7.4 mg/dL (8.5-10.1) L 07/28/18 09:14 Total Bilirubin 0.3 mg/dL (0.2-1) 07/27/18 05:30 AST 17 U/L (15-37) 07/27/18 05:30 ALT 15 U/L (13-61) 07/27/18 05:30 Alkaline Phosphatase 107 U/L (45-117) 07/27/18 05:30 Total Protein 6.3 g/dl (6.4-8.2) L 07/27/18 05:30 Albumin 2.2 g/dl (3.4-5.0) L 07/27/18 05:30 CARDIAC ENZYMES Creatine Kinase 189 IU/L (26-308) 07/24/18 05:03 Troponin I 0.07 ng/ml (0.00-0.05) H 07/24/18 12:14 Current Medications Generic Name Dose Route Start Last Admin Trade Name Freq PRN Reason Stop Dose Admin Albuterol Sulfate 1 amp 07/28/18 09:37 Ventolin 0.083% Nebulizer Soln - NEB Q4H PRN SHORT OF BREATH/WHEEZING Albuterol/Ipratropium 1 amp 07/28/18 14:00 07/28/18 14:05 Duoneb - NEB 1 amp RTID [facility] Administration Amlodipine Besylate 10 mg 07/28/18 10:00 07/28/18 10:44 Norvasc - PO 10 mg DAILY [facility] Administration Aripiprazole 10 mg 07/26/18 10:00 07/28/18 10:45 Abilify PO 10 mg DAILY [facility] Administration Carvedilol 25 mg 07/27/18 22:00 07/28/18 10:44 Coreg - PO 25 mg BID [facility] Administration Heparin Sodium (Porcine) 5,000 unit 07/27/18 22:00 07/28/18 14:50 Heparin - SQ 5,000 unit TID [facility] Administration Hydralazine HCl 100 mg 07/27/18 11:20 07/28/18 14:51 Apresoline - PO 100 mg TID [facility] Administration Home Medications Medication Instructions Recorded Amlodipine Besylate 10 mg PO DAILY 04/24/17 Aripiprazole [Abilify] 10 mg PO DAILY 04/24/17 Atorvastatin Ca [Lipitor] 40 mg PO HS 04/24/17 Carvedilol 25 mg PO BID 04/24/17 Hydralazine HCl 50 mg PO TID 04/24/17 Valsartan 320 mg PO DAILY 04/24/17 Carvedilol 1 tab PO BID 07/25/18 ASSESSMENT AND PLAN: Patient is a 58 y/o man with h/o MOLLY, not on CPAP, gout, diastolic CHF, CKD, HTN , morbid obesity , bipolar, depression, non compliance and recent admission fro HTN and YOCASTA who presented with SOB and was found to have acute respiratory failure due to HTN emergency. # HTN emergency: BP continues to be uncontrolled , cont. coreg, HZN, and Norvasc. continue to monitor BP # Elevated trop: due to demand ischemia due to HTN emergency. # QTc prolonged , avoid any Qtc prolonging agents # Acute diastolic CHF: improved but renal function worsening , continue to hold lasix. # YOCASTA on CKD: with nephrotic range proteinuria. creatinine is 4.0 today , hold lasix and further management per Nephro. continue to monitor renal Bx will be offered as inpatient. # Bipolar and depression : cont Abilify and f/u with psych [place]. DVT Px : heparin q
[2018-07-29] MEDS: HEPARIN NA (PORCINE) 5,000 UNITS/ML 1ML VIAL SQ SCH ×3 (05:13→22:10)
[2018-07-29] MEDS: hydrALAZINE HCL 50 MG TABLET (FP) PO SCH ×3 (05:13→22:10)
[2018-07-29] MEDS: ALBUTEROL SO4 2.5/IPRATROPIUM 0.5 INH SOL 3 ML VIAL.NEB. NEB SCH ×3 (07:40→19:59)
[2018-07-29 08:43] LABS: ANION GAP 12 MMOL/L (8-16); BLOOD UREA NITROGEN 55 mg/dL (7-18); CALCIUM 7.9 mg/dL (8.5-10.1); CHLORIDE 112 mmol/L (98-107); CO2 19 mmol/L (21-32); CREATININE 3.8 mg/dL (0.55-1.3); GLUCOSE,RANDOM 95 mg/dL (74-106); MAGNESIUM 2.1 mg/dL (1.8-2.4); PHOSPHOROUS 4.8 mg/dL (2.5-4.9); POTASSIUM 3.8 mmol/L (3.5-5.1); SODIUM 143 mmol/L (136-145)
--- NOTE | 2018-07-29 09:36 | PN ---
Physical Exam: SUBJECTIVE: Patient seen and examined this morning at bedside. Able to ambulate to the restroom without SOB. Patient mentions he is still unable to lay supine and continues to have orthopnea. Otherwise no acute events overnight as per nurisng. Denies any fevers, chills, chest pain, Nausea, vomiting, diarrhea, constipation. OBJECTIVE: Vital Signs Period Temp Pulse Resp BP Sys/Castillo Pulse Ox Last 24 Hr 97.6 F-98.8 F 89-95 18-20 139-186/74-105 97 GENERAL: A&Ox3, NAD HEAD: NCAT EYES: PERRL, EOMI LUNGS: CTAB, Decreased breath sounds at the bases however HEART: Regular rate and rhythm, normal S1 and S2 without murmur ABDOMEN: Soft, nontender, not distended, + bowel sounds, no guarding LOWER EXTREMITIES: 2+ pulses, Edema improving NEUROLOGICAL: Cranial nerves II-XII intact. Normal speech SKIN: Warm, dry Laboratory Results - last 24 hr 07/28/18 07/28/18 07/28/18 09:14 19:15 22:35 Sodium 145 Potassium 3.7 Chloride 110 H Carbon Dioxide 21 Anion Gap 14 BUN 56 H Creatinine 4.0 H Creat Clearance w eGFR 15.61 POC Glucometer 93 Random Glucose 144 H Calcium 7.4 L Phosphorus 4.1 Magnesium 2.1 U Random Total Protein 306 H Urine Creatinine 83.0 H Protein/Creatinin Ratio 3.68 07/29/18 07/29/18 05:24 06:30 Sodium 143 Potassium 3.8 Chloride 112 H Carbon Dioxide 19 L Anion Gap 12 BUN 55 H Creatinine 3.8 H Creat Clearance w eGFR 16.56 POC Glucometer 118 Random Glucose 95 Calcium 7.9 L Phosphorus 4.8 Magnesium 2.1 U Random Total Protein Urine Creatinine Protein/Creatinin Ratio Microbiology 07/24/18 08:53 Blood - Peripheral Venous Blood Culture - Preliminary NO GROWTH OBTAINED AFTER 96 HOURS, INCUBATION TO CONTINUE FOR 1 DAYS. 07/24/18 08:53 Blood - Peripheral Venous Blood Culture - Preliminary NO GROWTH OBTAINED AFTER 96 HOURS, INCUBATION TO CONTINUE FOR 1 DAYS. 07/24/18 09:43 Nasopharyngeal Swab Influenza Types A,B Antigen - Final 07/24/18 09:43 Nasopharyngeal Swab - Final Active Medications Albuterol Sulfate (Ventolin 0.083% Nebulizer Soln -) 1 amp NEB Q4H PRN PRN Reason: SHORT OF BREATH/WHEEZING Albuterol/Ipratropium (Duoneb -) 1 amp NEB RTID [facility] Last Admin: 07/29/18 07:40 Dose: 1 amp Amlodipine Besylate (Norvasc -) 10 mg PO DAILY [facility] Last Admin: 07/28/18 10:44 Dose: 10 mg Aripiprazole (Abilify) 10 mg PO DAILY [facility] Last Admin: 07/28/18 10:45 Dose: 10 mg Carvedilol (Coreg -) 25 mg PO BID [facility] Last Admin: 07/28/18 22:46 Dose: 25 mg Heparin Sodium (Porcine) (Heparin -) 5,000 unit SQ TID [facility] Last Admin: 07/29/18 05:13 Dose: 5,000 unit Hydralazine HCl (Apresoline -) 100 mg PO TID [facility] Last Admin: 07/29/18 05:13 Dose: 100 mg IMAGING: -CXR (07/24): Since 06/17/2018, there are new congestive changes with chin artifact and prominent mediastinum. -CXR (07/26): Worse. Progressive pulmonary and pleural changes since 07/24/2018. -Kidney/Renal US: Echogenic kidneys consistent with chronic medical renal disease. No evidence of hydronephrosis or acute pathology. -EKG: SINUS TACHYCARDIA WITH FREQUENT PREMATURE VENTRICULAR COMPLEXES, VR 116, QTc 497 ASSESSMENT/PLAN: 58 y/o M with PMHx of ?CHF, NIDDM, HTN, HLD presents to [facility] with SOB #SOB -Likely due to Acute Diastolic CHF from not taking his prescribed medications -Further Diuresis held, Cr improving -Currently on RA -Was on Bipap (Ipap 14, Epap 6, Rate 16, O2 45%), Given IV Lasix 80mg and started on Nitro drip in ED -ECHO (06/17/18): LV EF is normal, LV Wall motion is normal, Trace MR, E/A Reversal consistent with but not diagnostic of poor LV compliance #HTN Emergency -Continue Home dose Norvasc, Coreg -Continue Hydralazine 100mg TID -Cardiology (Dr. Maddox) Consulted, Appreciate Rec's -Trop 0.08 x2, EKG noted above -No repeat echo or ischemia workup at this point -Avoid QTc prolonging medications (QTc 497) #YOCASTA -Cr improving, Lasix held pending Nephro -Nephrotic range Proteinuria -Nephrology (Dr. Raphael) Consulted, Appreciate Rec's -Avoid Nephrotoxic medications -Renal US noted above -Renal bx refused #Bipolar disorder -Psych (Dr. Limon) consulted, Appreicate rec's -Continue on Abilify -Will need outpatient Psych follow up #FEN -PO Fluids -Continue to monitor Hypernatremia -Sodium Controlled diet #PPx -DVT: Heparin Dispo: Med-Surg Visit type - Emergency Visit Emergency Visit: Yes ED Registration Date: 07/24/18 Care time: The patient presented to the Emergency Department on the above date and was hospitalized for further evaluation of their emergent condition. - New Patient This patient is new to me today: No - Critical Care Critical Care patient: No - Discharge Referral Referred to [facility] Med P.C.: No
[2018-07-29] MEDS: ARIPiprazole 10 MG TABLET PO SCH (09:49)
[2018-07-29] MEDS: CARVEDILOL 25 MG TABLET (FP) PO SCH ×2 (09:49→22:11)
[2018-07-29] MEDS: amLODIPine BESYLATE 10 MG TABLET (FP) PO SCH (09:49)
--- NOTE | 2018-07-29 11:17 | PN ---
Progress Note (short form) - Note Progress Note: PULMONARY Sitting in chair sleeping. After a few minutes of observation patient had apneic episodes followed by snoring. vss/afebrile Gen: NAD at rest Heart: RRR Lung: scattered wheezes Abd: soft, nontender Ext: distal edema Active Medications reviewed labs/meds/notes/images noted A/P Acute on Chronic Diastolic Heart Failure Hypertensive Urgency improving Acute on Chronic Renal Failure DM Hyperlipidemia Morbid Obesity Likely MOLLY - lasix as needed - monitor urine output, creatinine - daily weights - O2 to keep SpO2 >90% - will add inhaled bronchodilators for wheezing - can defer systemic steroids at this time - PFTs, PSG as outpt - DVT prophylaxis - Screen for osas nargis ZHONG MD
--- NOTE | 2018-07-29 16:23 | PN ---
Progress Note, Physician History of Present Illness: Pt seen and examined at bedside. He denies shortness of breath. He is awake and alert. - Current Medication List Current Medications: Active Medications Albuterol Sulfate (Ventolin 0.083% Nebulizer Soln -) 1 amp NEB Q4H PRN PRN Reason: SHORT OF BREATH/WHEEZING Albuterol/Ipratropium (Duoneb -) 1 amp NEB RTID [facility] Last Admin: 07/29/18 07:40 Dose: 1 amp Amlodipine Besylate (Norvasc -) 10 mg PO DAILY [facility] Last Admin: 07/29/18 09:49 Dose: 10 mg Aripiprazole (Abilify) 10 mg PO DAILY [facility] Last Admin: 07/29/18 09:49 Dose: 10 mg Carvedilol (Coreg -) 25 mg PO BID [facility] Last Admin: 07/29/18 09:49 Dose: 25 mg Heparin Sodium (Porcine) (Heparin -) 5,000 unit SQ TID [facility] Last Admin: 07/29/18 13:25 Dose: 5,000 unit Hydralazine HCl (Apresoline -) 100 mg PO TID [facility] Last Admin: 07/29/18 13:25 Dose: 100 mg - Objective Vital Signs: Vital Signs Temperature 98.2 F 07/29/18 14:49 Pulse Rate 91 H 07/29/18 14:49 Respiratory Rate 21 H 07/29/18 14:49 Blood Pressure 148/79 07/29/18 14:49 O2 Sat by Pulse Oximetry (%) 97 07/29/18 09:00 Constitutional: Yes: Calm Eyes: Yes: Conjunctiva Clear HENT: Yes: Atraumatic Cardiovascular: Yes: S1, S2 Respiratory: Yes: CTA Bilaterally Gastrointestinal: Yes: Soft, Abdomen, Obese Genitourinary: Yes: WNL Musculoskeletal: Yes: WNL Edema: No Neurological: Yes: Oriented Psychiatric: Yes: Oriented Labs: CBC, BMP 07/26/18 05:30 07/29/18 06:30 INR, PTT INR 0.98 (0.83-1.09) 07/24/18 01:30 EST Problem List - Problems (1) CHF (congestive heart failure) Code(s): I50.9 - HEART FAILURE, UNSPECIFIED Qualifiers: Heart failure type: unspecified Heart failure chronicity: acute on chronic Qualified Code(s): I50.9 - Heart failure, unspecified (2) YOCASTA (acute kidney injury) Code(s): N17.9 - ACUTE KIDNEY FAILURE, UNSPECIFIED (3) CKD (chronic kidney disease) Code(s): N18.9 - CHRONIC KIDNEY DISEASE, UNSPECIFIED Assessment/Plan Current Medications Generic Name Dose Route Start Last Admin Trade Name Freq PRN Reason Stop Dose Admin Albuterol Sulfate 1 amp 07/28/18 09:37 Ventolin 0.083% Nebulizer Soln - NEB Q4H PRN SHORT OF BREATH/WHEEZING Albuterol/Ipratropium 1 amp 07/28/18 14:00 07/29/18 07:40 Duoneb - NEB 1 amp RTID [facility] Administration Amlodipine Besylate 10 mg 07/28/18 10:00 07/29/18 09:49 Norvasc - PO 10 mg DAILY [facility] Administration Aripiprazole 10 mg 07/26/18 10:00 07/29/18 09:49 Abilify PO 10 mg DAILY [facility] Administration Carvedilol 25 mg 07/27/18 22:00 07/29/18 09:49 Coreg - PO 25 mg BID [facility] Administration Heparin Sodium (Porcine) 5,000 unit 07/27/18 22:00 07/29/18 13:25 Heparin - SQ 5,000 unit TID [facility] Administration Hydralazine HCl 100 mg 07/27/18 11:20 07/29/18 13:25 Apresoline - PO 100 mg TID [facility] Administration Impression 1. YOCASTA 2. CKD 3. volume overload 4. HTN 5. CHF 6. DM 7. hx bipolar 8. gout Plan - renal function improving - hold lasix - repeat labs in am - refusing kidney biopsy - volumes status stable - unable to start jaskaran or arb as he is in renal failure - avoid nsaids
--- NOTE | 2018-07-29 20:19 | PN ---
Teaching Attending Note Name of Resident: Gisel Shah ATTENDING PHYSICIAN STATEMENT I saw and evaluated the patient. I reviewed the resident's note and discussed the case with the resident. I agree with the resident's findings and plan as documented. SUBJECTIVE: Patient is comfortable with no acute distress, no shortness of breath. OBJECTIVE: Vital Signs Temperature 98.0 F 07/29/18 17:09 Pulse Rate 91 H 07/29/18 17:09 Respiratory Rate 20 07/29/18 17:09 Blood Pressure 148/95 07/29/18 17:09 O2 Sat by Pulse Oximetry (%) 97 07/29/18 09:00 GENERAL: A&Ox3, NAD HEAD: NCAT;EYES: PERRL, EOMI LUNGS: CTAB, Decreased breath sounds at the bases , poor inspiratory effort HEART: Regular rate and rhythm, normal S1 and S2 without murmur ABDOMEN: Soft, nontender, not distended, + bowel sounds, no guarding LOWER EXTREMITIES: 2+ pulses, Edema improving NEUROLOGICAL: Cranial nerves II-XII intact. Normal speech SKIN: Warm, dry CBCD WBC 7.4 K/mm3 (4.0-10.0) 07/26/18 05:30 RBC 3.58 M/mm3 (4.00-5.60) L 07/26/18 05:30 Hgb 9.2 GM/dL (11.7-16.9) L 07/26/18 05:30 Hct 27.2 % (35.4-49) L 07/26/18 05:30 MCV 76.0 fl (80-96) L 07/26/18 05:30 MCHC 33.7 g/dl (32.0-35.9) 07/26/18 05:30 RDW 17.6 % (11.9-15.9) H 07/26/18 05:30 Plt Count 229 K/MM3 (134-434) 07/26/18 05:30 MPV 9.3 fl (7.5-11.1) 07/26/18 05:30 CMP Sodium 143 mmol/L (136-145) 07/29/18 06:30 Potassium 3.8 mmol/L (3.5-5.1) 07/29/18 06:30 Chloride 112 mmol/L (98-107) H 07/29/18 06:30 Carbon Dioxide 19 mmol/L (21-32) L 07/29/18 06:30 Anion Gap 12 MMOL/L (8-16) 07/29/18 06:30 BUN 55 mg/dL (7-18) H 07/29/18 06:30 Creatinine 3.8 mg/dL (0.55-1.3) H 07/29/18 06:30 Creat Clearance w eGFR 16.56 (>60) 07/29/18 06:30 Random Glucose 95 mg/dL (74-106) 07/29/18 06:30 Calcium 7.9 mg/dL (8.5-10.1) L 07/29/18 06:30 Total Bilirubin 0.3 mg/dL (0.2-1) 07/27/18 05:30 AST 17 U/L (15-37) 07/27/18 05:30 ALT 15 U/L (13-61) 07/27/18 05:30 Alkaline Phosphatase 107 U/L (45-117) 07/27/18 05:30 Total Protein 6.3 g/dl (6.4-8.2) L 07/27/18 05:30 Albumin 2.2 g/dl (3.4-5.0) L 07/27/18 05:30 CARDIAC ENZYMES Creatine Kinase 189 IU/L (26-308) 07/24/18 05:03 Troponin I 0.07 ng/ml (0.00-0.05) H 07/24/18 12:14 Current Medications Generic Name Dose Route Start Last Admin Trade Name Freq PRN Reason Stop Dose Admin Albuterol Sulfate 1 amp 07/28/18 09:37 Ventolin 0.083% Nebulizer Soln - NEB Q4H PRN SHORT OF BREATH/WHEEZING Albuterol/Ipratropium 1 amp 07/28/18 14:00 07/29/18 19:59 Duoneb - NEB 1 amp RTID [facility] Administration Amlodipine Besylate 10 mg 07/28/18 10:00 07/29/18 09:49 Norvasc - PO 10 mg DAILY [facility] Administration Aripiprazole 10 mg 07/26/18 10:00 07/29/18 09:49 Abilify PO 10 mg DAILY [facility] Administration Carvedilol 25 mg 07/27/18 22:00 07/29/18 09:49 Coreg - PO 25 mg BID [facility] Administration Heparin Sodium (Porcine) 5,000 unit 07/27/18 22:00 07/29/18 13:25 Heparin - SQ 5,000 unit TID [facility] Administration Hydralazine HCl 100 mg 07/27/18 11:20 07/29/18 13:25 Apresoline - PO 100 mg TID [facility] Administration Home Medications Medication Instructions Recorded Amlodipine Besylate 10 mg PO DAILY 04/24/17 Aripiprazole [Abilify] 10 mg PO DAILY 04/24/17 Atorvastatin Ca [Lipitor] 40 mg PO HS 04/24/17 Carvedilol 25 mg PO BID 04/24/17 Hydralazine HCl 50 mg PO TID 04/24/17 Valsartan 320 mg PO DAILY 04/24/17 Carvedilol 1 tab PO BID 07/25/18 ASSESSMENT AND PLAN: Patient is a 58 y/o man with h/o MOLLY, not on CPAP, gout, diastolic CHF, CKD, HTN , morbid obesity , bipolar, depression, non compliance and recent admission fro HTN and YOCASTA who presented with SOB and was found to have acute respiratory failure due to HTN emergency. # HTN emergency: BP better controlled today , cont. coreg, HZN, and Norvasc. continue to monitor BP # Elevated trop: due to demand ischemia due to HTN emergency. # YOCASTA on CKD: with nephrotic range proteinuria. creatinine is 4.0-->3.8 today , continue to hold lasix and further management per Nephro. continue to monitor. renal Bx will be offered as inpatient. # QTc prolonged , avoid any Qtc prolonging agents # Acute diastolic CHF: improved but renal function worsening , continue to hold lasix. # Bipolar and depression : cont Abilify and f/u with psych at [place]. DVT Px : heparin q
[2018-07-30] MEDS: hydrALAZINE HCL 50 MG TABLET (FP) PO SCH ×3 (05:27→21:14)
[2018-07-30] MEDS: HEPARIN NA (PORCINE) 5,000 UNITS/ML 1ML VIAL SQ SCH ×3 (05:27→21:14)
[2018-07-30] MEDS: ALBUTEROL SO4 2.5/IPRATROPIUM 0.5 INH SOL 3 ML VIAL.NEB. NEB SCH ×3 (08:30→21:00)
[2018-07-30 08:54] LABS: ANION GAP 13 MMOL/L (8-16); BLOOD UREA NITROGEN 55 mg/dL (7-18); CHLORIDE 114 mmol/L (98-107); CO2 16 mmol/L (21-32); CREATININE 3.8 mg/dL (0.55-1.3); GLUCOSE,RANDOM 84 mg/dL (74-106); MAGNESIUM 2.3 mg/dL (1.8-2.4); PHOSPHOROUS 5.7 mg/dL (2.5-4.9); POTASSIUM 4.7 mmol/L (3.5-5.1); SODIUM 143 mmol/L (136-145)
[2018-07-30] MEDS ORDERED: PT OWN MED DRAWER 7, Y5N ONE ×3 (09:26→21:42)
[2018-07-30] MEDS: CARVEDILOL 25 MG TABLET (FP) PO SCH ×2 (09:51→21:14)
[2018-07-30] MEDS: ARIPiprazole 10 MG TABLET PO SCH (09:51)
[2018-07-30] MEDS: amLODIPine BESYLATE 10 MG TABLET (FP) PO SCH (09:51)
--- NOTE | 2018-07-30 18:34 | PN ---
Progress Note, Physician History of Present Illness: Pt seen and examined at bedside. He is awake and alert. He denies shortness of breath. - Current Medication List Current Medications: Active Medications Albuterol Sulfate (Ventolin 0.083% Nebulizer Soln -) 1 amp NEB Q4H PRN PRN Reason: SHORT OF BREATH/WHEEZING Albuterol/Ipratropium (Duoneb -) 1 amp NEB RTID [facility] Last Admin: 07/30/18 14:10 Dose: 1 amp Amlodipine Besylate (Norvasc -) 10 mg PO DAILY [facility] Last Admin: 07/30/18 09:51 Dose: 10 mg Aripiprazole (Abilify) 10 mg PO DAILY [facility] Last Admin: 07/30/18 09:51 Dose: 10 mg Carvedilol (Coreg -) 25 mg PO BID [facility] Last Admin: 07/30/18 09:51 Dose: 25 mg Heparin Sodium (Porcine) (Heparin -) 5,000 unit SQ TID [facility] Last Admin: 07/30/18 14:02 Dose: 5,000 unit Hydralazine HCl (Apresoline -) 100 mg PO TID [facility] Last Admin: 07/30/18 14:02 Dose: 100 mg - Objective Vital Signs: Vital Signs Temperature 98.7 F 07/30/18 17:03 Pulse Rate 91 H 07/30/18 17:03 Respiratory Rate 20 07/30/18 17:03 Blood Pressure 157/102 H 07/30/18 17:03 O2 Sat by Pulse Oximetry (%) 99 07/30/18 09:00 Constitutional: Yes: Calm Eyes: Yes: Conjunctiva Clear HENT: Yes: Atraumatic Cardiovascular: Yes: S1, S2 Respiratory: Yes: CTA Bilaterally Gastrointestinal: Yes: Soft, Abdomen, Obese Genitourinary: Yes: WNL Musculoskeletal: Yes: WNL Edema: No Neurological: Yes: Oriented Psychiatric: Yes: Oriented Labs: CBC, BMP 07/26/18 05:30 07/30/18 06:00 INR, PTT INR 0.98 (0.83-1.09) 07/24/18 01:30 EST Problem List - Problems (1) CHF (congestive heart failure) Code(s): I50.9 - HEART FAILURE, UNSPECIFIED Qualifiers: Heart failure type: unspecified Heart failure chronicity: acute on chronic Qualified Code(s): I50.9 - Heart failure, unspecified (2) YOCASTA (acute kidney injury) Code(s): N17.9 - ACUTE KIDNEY FAILURE, UNSPECIFIED (3) CKD (chronic kidney disease) Code(s): N18.9 - CHRONIC KIDNEY DISEASE, UNSPECIFIED Assessment/Plan Current Medications Generic Name Dose Route Start Last Admin Trade Name Freq PRN Reason Stop Dose Admin Albuterol Sulfate 1 amp 07/28/18 09:37 Ventolin 0.083% Nebulizer Soln - NEB Q4H PRN SHORT OF BREATH/WHEEZING Albuterol/Ipratropium 1 amp 07/28/18 14:00 07/30/18 14:10 Duoneb - NEB 1 amp RTID RONALD Administration Amlodipine Besylate 10 mg 07/28/18 10:00 07/30/18 09:51 Norvasc - PO 10 mg DAILY R[facility] Administration Aripiprazole 10 mg 07/26/18 10:00 07/30/18 09:51 Abilify PO 10 mg DAILY RON[facility] Administration Carvedilol 25 mg 07/27/18 22:00 07/30/18 09:51 Coreg - PO 25 mg BID RONALD Administration Heparin Sodium (Porcine) 5,000 unit 07/27/18 22:00 07/30/18 14:02 Heparin - SQ 5,000 unit TID RONALD Administration Hydralazine HCl 100 mg 07/27/18 11:20 07/30/18 14:02 Apresoline - PO 100 mg TID RONALD Administration Impression 1. YOCASTA 2. CKD 3. volume overload 4. HTN 5. CHF 6. DM 7. hx bipolar 8. gout Plan - cont to monitor renal function - get cxr in am - pt likely has sleep apnea - repeat ua - refusing kidney biopsy - volumes status stable - unable to start jaskaran or arb as he is in renal failure - avoid nsaids
--- NOTE | 2018-07-30 20:22 | PN ---
Progress Note (short form) - Note Progress Note: Patient is feeling better , would like to go home when possible. Vital Signs Temperature 98.7 F 07/30/18 17:03 Pulse Rate 96 H 07/30/18 19:27 Respiratory Rate 20 07/30/18 19:27 Blood Pressure 124/73 07/30/18 19:27 O2 Sat by Pulse Oximetry (%) 99 07/30/18 20:15 GENERAL: A&Ox3, NAD HEAD: NCAT;EYES: PERRL, EOMI LUNGS: CTAB, Decreased breath sounds at the bases , poor inspiratory effort HEART: Regular rate and rhythm, normal S1 and S2 without murmur ABDOMEN: Soft, nontender, not distended, + bowel sounds, no guarding LOWER EXTREMITIES: 2+ pulses, Edema improving NEUROLOGICAL: Cranial nerves II-XII intact. Normal speech SKIN: Warm, dry Current Medications Generic Name Dose Route Start Last Admin Trade Name Freq PRN Reason Stop Dose Admin Albuterol Sulfate 1 amp 07/28/18 09:37 Ventolin 0.083% Nebulizer Soln - NEB Q4H PRN SHORT OF BREATH/WHEEZING Albuterol/Ipratropium 1 amp 07/28/18 14:00 07/30/18 14:10 Duoneb - NEB 1 amp RTID [facility]ONAL[facility] Administration Amlodipine Besylate 10 mg 07/28/18 10:00 07/30/18 09:51 Norvasc - PO 10 mg DAILY [facility] Administration Aripiprazole 10 mg 07/26/18 10:00 07/30/18 09:51 Abilify PO 10 mg DAILY [facility] Administration Carvedilol 25 mg 07/27/18 22:00 07/30/18 09:51 Coreg - PO 25 mg BID RONALD Administration Heparin Sodium (Porcine) 5,000 unit 07/27/18 22:00 07/30/18 14:02 Heparin - SQ 5,000 unit TID RON[facility] Administration Hydralazine HCl 100 mg 07/27/18 11:20 07/30/18 14:02 Apresoline - PO 100 mg TID RONALD Administration Home Medications Medication Instructions Recorded Amlodipine Besylate 10 mg PO DAILY 04/24/17 Aripiprazole [Abilify] 10 mg PO DAILY 04/24/17 Atorvastatin Ca [Lipitor] 40 mg PO HS 04/24/17 Carvedilol 25 mg PO BID 04/24/17 Hydralazine HCl 50 mg PO TID 04/24/17 Valsartan 320 mg PO DAILY 04/24/17 Carvedilol 1 tab PO BID 07/25/18 CBCD WBC 7.4 K/mm3 (4.0-10.0) 07/26/18 05:30 RBC 3.58 M/mm3 (4.00-5.60) L 07/26/18 05:30 Hgb 9.2 GM/dL (11.7-16.9) L 07/26/18 05:30 Hct 27.2 % (35.4-49) L 07/26/18 05:30 MCV 76.0 fl (80-96) L 07/26/18 05:30 MCHC 33.7 g/dl (32.0-35.9) 07/26/18 05:30 RDW 17.6 % (11.9-15.9) H 07/26/18 05:30 Plt Count 229 K/MM3 (134-434) 07/26/18 05:30 MPV 9.3 fl (7.5-11.1) 07/26/18 05:30 CMP Sodium 143 mmol/L (136-145) 07/30/18 06:00 Potassium 4.7 mmol/L (3.5-5.1) 07/30/18 06:00 Chloride 114 mmol/L (98-107) H 07/30/18 06:00 Carbon Dioxide 16 mmol/L (21-32) L 07/30/18 06:00 Anion Gap 13 MMOL/L (8-16) 07/30/18 06:00 BUN 55 mg/dL (7-18) H 07/30/18 06:00 Creatinine 3.8 mg/dL (0.55-1.3) H 07/30/18 06:00 Creat Clearance w eGFR 16.56 (>60) 07/30/18 06:00 Random Glucose 84 mg/dL (74-106) 07/30/18 06:00 Calcium 8.0 mg/dL (8.5-10.1) L 07/30/18 06:00 Total Bilirubin 0.3 mg/dL (0.2-1) 07/27/18 05:30 AST 17 U/L (15-37) 07/27/18 05:30 ALT 15 U/L (13-61) 07/27/18 05:30 Alkaline Phosphatase 107 U/L (45-117) 07/27/18 05:30 Total Protein 6.3 g/dl (6.4-8.2) L 07/27/18 05:30 Albumin 2.2 g/dl (3.4-5.0) L 07/27/18 05:30 CARDIAC ENZYMES Creatine Kinase 189 IU/L (26-308) 07/24/18 05:03 Troponin I 0.07 ng/ml (0.00-0.05) H 07/24/18 12:14 ASSESSMENT AND PLAN: Patient is a 58 y/o man with h/o MOLLY, not on CPAP, gout, diastolic CHF, CKD, HTN , morbid obesity , bipolar, depression, non compliance and recent admission fro HTN and YOCASTA who presented with SOB and was found to have acute respiratory failure due to HTN emergency. # HTN emergency improved: BP better controlled today , cont. coreg, HZN, and Norvasc. continue to monitor BP # Elevated trop: due to demand ischemia due to HTN emergency. # YOCASTA on CKD: with nephrotic range proteinuria. creatinine is 4.0-->3.8-->3.8 today , continue to hold lasix and further management per Nephro. continue to monitor. Renal Bx will be offered as inpatient. Kidney function is improving but not back to baseline, most likely will need Bx # QTc prolonged , avoid any Qtc prolonging agents # Acute diastolic CHF: improved but renal function worsening , continue to hold lasix. # Bipolar and depression : cont Abilify and f/u with psych at mo. DVT Px : heparin q Visit type - Emergency Visit Emergency Visit: Yes ED Registration Date: 07/24/18 Care time: The patient presented to the Emergency Department on the above date and was hospitalized for further evaluation of their emergent condition. - New Patient This patient is new to me today: No - Critical Care Critical Care patient: No - Discharge Referral Referred to [facility] Med P.C.: No
[2018-07-30 22:27] LABS: RATIO URIN PROTEIN/URIN CREAT 4.15 MG/DL
[2018-07-31] MEDS ORDERED: ACETAMINOPHEN 325 MG TABLET (FP) PO ONE (00:19)
[2018-07-31] MEDS: hydrALAZINE HCL 50 MG TABLET (FP) PO SCH ×3 (06:20→21:39)
[2018-07-31] MEDS: HEPARIN NA (PORCINE) 5,000 UNITS/ML 1ML VIAL SQ SCH ×3 (06:20→21:39)
[2018-07-31 07:12] LABS: BASO % 0.7 % (0-2.0); EOS % 3.5 % (0-4.5); HEMATOCRIT 27.5 % (35.4-49); HEMOGLOBIN 8.7 GM/dL (11.7-16.9); LYMPH % 13.7 % (8-40); MCH 24.1 pg (25.7-33.7); MCHC 31.7 g/dl (32.0-35.9); MEAN CELL VOLUME 75.9 fl (80-96); MEAN PLT VOLUME 8.5 fl (7.5-11.1); MONO % 10.5 % (3.8-10.2); NEUT % 71.6 % (42.8-82.8); PLATELET COUNT 237 K/MM3 (134-434); RBC 3.62 M/mm3 (4.00-5.60); RDW 17.8 % (11.9-15.9)
[2018-07-31 07:56] LABS: ALBUMIN 2.2 g/dl (3.4-5.0); ALK PHOS 99 U/L (45-117); ANION GAP 9 MMOL/L (8-16); BILIRUBIN,TOTAL 0.2 mg/dL (0.2-1); BLOOD UREA NITROGEN 55 mg/dL (7-18); CALCIUM 7.7 mg/dL (8.5-10.1); CHLORIDE 113 mmol/L (98-107); CO2 21 mmol/L (21-32); GLUCOSE,RANDOM 89 mg/dL (74-106); POTASSIUM 4.1 mmol/L (3.5-5.1); SGOT/AST 17 U/L (15-37); SGPT/ALT 17 U/L (13-61); SODIUM 143 mmol/L (136-145)
[2018-07-31] MEDS: ALBUTEROL SO4 2.5/IPRATROPIUM 0.5 INH SOL 3 ML VIAL.NEB. NEB SCH ×3 (07:59→20:31)
[2018-07-31] MEDS ORDERED: PT OWN MED DRAWER 7, Y5N ONE ×3 (09:17→21:55)
[2018-07-31] MEDS: ARIPiprazole 10 MG TABLET PO SCH (09:19)
[2018-07-31] MEDS: amLODIPine BESYLATE 10 MG TABLET (FP) PO SCH (09:19)
[2018-07-31] MEDS: CARVEDILOL 25 MG TABLET (FP) PO SCH ×2 (09:19→21:39)
--- NOTE | 2018-07-31 12:33 | PN ---
Teaching Attending Note Name of Resident: Vicente Ruano ATTENDING PHYSICIAN STATEMENT I saw and evaluated the patient. I reviewed the resident's note and discussed the case with the resident. I agree with the resident's findings and plan as documented. SUBJECTIVE: Patient is comfortable with no acute distress. wants to go home. OBJECTIVE: Vital Signs Temperature 98.3 F 07/31/18 05:29 Pulse Rate 86 07/31/18 05:29 Respiratory Rate 20 07/31/18 05:29 Blood Pressure 112/43 L 07/31/18 05:29 O2 Sat by Pulse Oximetry (%) 99 07/30/18 20:15 GENERAL: A&Ox3, NAD HEAD: NCAT;EYES: PERRL, EOMI LUNGS: CTAB, Decreased breath sounds at the bases , poor inspiratory effort HEART: Regular rate and rhythm, normal S1 and S2 without murmur ABDOMEN: Soft, NT, not distended, + bowel sounds, no guarding LOWER EXTREMITIES: 2+ pulses, Edema improving NEUROLOGICAL: Cranial nerves II-XII intact. Normal speech SKIN: Warm, dry. CBCD WBC 8.0 K/mm3 (4.0-10.0) 07/31/18 06:00 RBC 3.62 M/mm3 (4.00-5.60) L 07/31/18 06:00 Hgb 8.7 GM/dL (11.7-16.9) L 07/31/18 06:00 Hct 27.5 % (35.4-49) L 07/31/18 06:00 MCV 75.9 fl (80-96) L 07/31/18 06:00 MCHC 31.7 g/dl (32.0-35.9) L 07/31/18 06:00 RDW 17.8 % (11.9-15.9) H 07/31/18 06:00 Plt Count 237 K/MM3 (134-434) 07/31/18 06:00 MPV 8.5 fl (7.5-11.1) 07/31/18 06:00 CMP Sodium 143 mmol/L (136-145) 07/31/18 06:00 Potassium 4.1 mmol/L (3.5-5.1) 07/31/18 06:00 Chloride 113 mmol/L (98-107) H 07/31/18 06:00 Carbon Dioxide 21 mmol/L (21-32) 07/31/18 06:00 Anion Gap 9 MMOL/L (8-16) 07/31/18 06:00 BUN 55 mg/dL (7-18) H 07/31/18 06:00 Creatinine 4.0 mg/dL (0.55-1.3) H 07/31/18 06:00 Creat Clearance w eGFR 15.61 (>60) 07/31/18 06:00 Random Glucose 89 mg/dL (74-106) 07/31/18 06:00 Calcium 7.7 mg/dL (8.5-10.1) L 07/31/18 06:00 Total Bilirubin 0.2 mg/dL (0.2-1) 07/31/18 06:00 AST 17 U/L (15-37) 07/31/18 06:00 ALT 17 U/L (13-61) 07/31/18 06:00 Alkaline Phosphatase 99 U/L (45-117) 07/31/18 06:00 Total Protein 6.0 g/dl (6.4-8.2) L 07/31/18 06:00 Albumin 2.2 g/dl (3.4-5.0) L 07/31/18 06:00 CARDIAC ENZYMES Creatine Kinase 189 IU/L (26-308) 07/24/18 05:03 Troponin I 0.07 ng/ml (0.00-0.05) H 07/24/18 12:14 Current Medications Generic Name Dose Route Start Last Admin Trade Name Freq PRN Reason Stop Dose Admin Albuterol Sulfate 1 amp 07/28/18 09:37 Ventolin 0.083% Nebulizer Soln - NEB Q4H PRN SHORT OF BREATH/WHEEZING Albuterol/Ipratropium 1 amp 07/28/18 14:00 07/31/18 07:59 Duoneb - NEB 1 amp RTID [facility] Administration Amlodipine Besylate 10 mg 07/28/18 10:00 07/31/18 09:19 Norvasc - PO 10 mg DAILY [facility] Administration Aripiprazole 10 mg 07/26/18 10:00 07/31/18 09:19 Abilify PO 10 mg DAILY [facility] Administration Carvedilol 25 mg 07/27/18 22:00 07/31/18 09:19 Coreg - PO 25 mg BID RONALD Administration Heparin Sodium (Porcine) 5,000 unit 07/27/18 22:00 07/31/18 06:20 Heparin - SQ 5,000 unit TID [facility] Administration Hydralazine HCl 100 mg 07/27/18 11:20 07/31/18 06:20 Apresoline - PO 100 mg TID [facility] Administration Home Medications Medication Instructions Recorded Amlodipine Besylate 10 mg PO DAILY 04/24/17 Aripiprazole [Abilify] 10 mg PO DAILY 04/24/17 Atorvastatin Ca [Lipitor] 40 mg PO HS 04/24/17 Carvedilol 25 mg PO BID 04/24/17 Hydralazine HCl 50 mg PO TID 04/24/17 Valsartan 320 mg PO DAILY 04/24/17 Carvedilol 1 tab PO BID 07/25/18 ASSESSMENT AND PLAN: Patient is a 58 y/o man with h/o MOLLY, not on CPAP, gout, diastolic CHF, CKD, HTN , morbid obesity , bipolar, depression, non compliance and recent admission fro HTN and YOCASTA who presented with SOB and was found to have acute respiratory failure due to HTN emergency. # HTN emergency improved: BP better controlled today will continue coreg, HZN, and Norvasc. continue to monitor BP. # Elevated trop: due to demand ischemia due to HTN emergency. # YOCASTA on CKD: with nephrotic range proteinuria. creatinine is 4.0-->3.8-->3.8--> 4.0 today , continue to hold lasix and further management per Nephro. continue to monitor. Renal Bx will be offered as inpatient. Kidney function is improving but not back to baseline, patient needs bx but refusing. # QTc prolonged , avoid any Qtc prolonging agents # Acute diastolic CHF: improved but renal function worsening , continue to hold lasix. # Bipolar and depression : cont Abilify and f/u with psych at [place]. DVT Px : heparin sq patient refusing biopsy. will discuss with nephrology
--- NOTE | 2018-07-31 16:10 | PN ---
Progress Note, Physician History of Present Illness: Pt seen and examined at bedside. He is awake and alert. He complains of shortness of breath with ambulation. - Current Medication List Current Medications: Active Medications Albuterol Sulfate (Ventolin 0.083% Nebulizer Soln -) 1 amp NEB Q4H PRN PRN Reason: SHORT OF BREATH/WHEEZING Albuterol/Ipratropium (Duoneb -) 1 amp NEB RTID [facility] Last Admin: 07/31/18 14:45 Dose: Not Given Amlodipine Besylate (Norvasc -) 10 mg PO DAILY [facility] Last Admin: 07/31/18 09:19 Dose: 10 mg Aripiprazole (Abilify) 10 mg PO DAILY [facility] Last Admin: 07/31/18 09:19 Dose: 10 mg Carvedilol (Coreg -) 25 mg PO BID [facility] Last Admin: 07/31/18 09:19 Dose: 25 mg Heparin Sodium (Porcine) (Heparin -) 5,000 unit SQ TID [facility] Last Admin: 07/31/18 13:49 Dose: 5,000 unit Hydralazine HCl (Apresoline -) 100 mg PO TID [facility] Last Admin: 07/31/18 13:49 Dose: 100 mg - Objective Vital Signs: Vital Signs Temperature 98.3 F 07/31/18 14:13 Pulse Rate 97 H 07/31/18 14:13 Respiratory Rate 16 07/31/18 14:13 Blood Pressure 125/58 L 07/31/18 14:13 O2 Sat by Pulse Oximetry (%) 99 07/31/18 09:00 Constitutional: Yes: Calm Eyes: Yes: Conjunctiva Clear HENT: Yes: Atraumatic Cardiovascular: Yes: S1, S2 Respiratory: Yes: CTA Bilaterally Gastrointestinal: Yes: Soft, Abdomen, Obese Genitourinary: Yes: WNL Musculoskeletal: Yes: WNL Edema: No Neurological: Yes: Oriented Psychiatric: Yes: Oriented Labs: CBC, BMP 07/31/18 06:00 07/31/18 06:00 INR, PTT INR 0.98 (0.83-1.09) 07/24/18 01:30 EST Problem List - Problems (1) CHF (congestive heart failure) Code(s): I50.9 - HEART FAILURE, UNSPECIFIED Qualifiers: Qualified Code(s): I50.9 - Heart failure, unspecified (2) YOCASTA (acute kidney injury) Code(s): N17.9 - ACUTE KIDNEY FAILURE, UNSPECIFIED (3) CKD (chronic kidney disease) Code(s): N18.9 - CHRONIC KIDNEY DISEASE, UNSPECIFIED Assessment/Plan Current Medications Generic Name Dose Route Start Last Admin Trade Name Freq PRN Reason Stop Dose Admin Albuterol Sulfate 1 amp 07/28/18 09:37 Ventolin 0.083% Nebulizer Soln - NEB Q4H PRN SHORT OF BREATH/WHEEZING Albuterol/Ipratropium 1 amp 07/28/18 14:00 07/31/18 14:45 Duoneb - NEB Not Given RTID [facility]ONALD Amlodipine Besylate 10 mg 07/28/18 10:00 07/31/18 09:19 Norvasc - PO 10 mg DAILY [facility] Administration Aripiprazole 10 mg 07/26/18 10:00 07/31/18 09:19 Abilify PO 10 mg DAILY [facility] Administration Carvedilol 25 mg 07/27/18 22:00 07/31/18 09:19 Coreg - PO 25 mg BID [facility] Administration Heparin Sodium (Porcine) 5,000 unit 07/27/18 22:00 07/31/18 13:49 Heparin - SQ 5,000 unit TID [facility] Administration Hydralazine HCl 100 mg 07/27/18 11:20 07/31/18 13:49 Apresoline - PO 100 mg TID [facility] Administration Laboratory Tests 06/17/18 06/18/18 07/30/18 06:30 08:15 20:15 Protein/Creatinin Ratio 4.15 AURE Screen Negative HIV 1&2 Antibody Screen Negative HIV P24 Antigen Negative Impression 1. YOCASTA 2. CKD 3. volume overload 4. HTN 5. CHF 6. DM 7. hx bipolar 8. gout Plan - monitor renal function - pt refusing kidney biopsy - pt with nephrotic range proteinuria - follow up cxr - he is also refusing lasix, may need it if he develops overload - jaskaran once renal function stabilizes - avoid nsaids
--- NOTE | 2018-07-31 16:14 | PN ---
Physical Exam: SUBJECTIVE: Patient seen and examined this morning at bedside. Patient is still unable to lay supine and continues to have orthopnea. Otherwise no acute events overnight as per nursing. OBJECTIVE: Vital Signs Period Temp Pulse Resp BP Sys/Castillo Pulse Ox Last 24 Hr 98.1 F-98.8 F 85-97 16-20 112-175/43-102 99-99 GENERAL: A&Ox3, NAD HEAD: NCAT EYES: PERRL, EOMI LUNGS: CTAB, Decreased breath sounds at the bases however HEART: Regular rate and rhythm, normal S1 and S2 without murmur ABDOMEN: Soft, nontender, not distended, + bowel sounds, no guarding LOWER EXTREMITIES: 2+ pulses, Edema improving NEUROLOGICAL: Cranial nerves II-XII intact. Normal speech SKIN: Warm, dry Laboratory Results - last 24 hr 07/30/18 07/31/18 07/31/18 20:15 06:00 06:00 WBC 8.0 RBC 3.62 L Hgb 8.7 L Hct 27.5 L MCV 75.9 L MCH 24.1 L MCHC 31.7 L RDW 17.8 H Plt Count 237 MPV 8.5 Absolute Neuts (auto) 5.7 Neutrophils % 71.6 Lymphocytes % 13.7 Monocytes % 10.5 H Eosinophils % 3.5 Basophils % 0.7 Nucleated RBC % 0 Sodium 143 Potassium 4.1 Chloride 113 H Carbon Dioxide 21 Anion Gap 9 BUN 55 H Creatinine 4.0 H Creat Clearance w eGFR 15.61 Random Glucose 89 Calcium 7.7 L Total Bilirubin 0.2 AST 17 ALT 17 Alkaline Phosphatase 99 Total Protein 6.0 L Albumin 2.2 L U Random Total Protein 349 H Urine Creatinine 84.0 H Protein/Creatinin Ratio 4.15 Microbiology 07/24/18 08:53 Blood - Peripheral Venous Blood Culture - Final NO GROWTH AFTER 5 DAYS INCUBATION 07/24/18 08:53 Blood - Peripheral Venous Blood Culture - Final NO GROWTH AFTER 5 DAYS INCUBATION 07/24/18 09:43 Nasopharyngeal Swab Influenza Types A,B Antigen - Final 07/24/18 09:43 Nasopharyngeal Swab - Final Active Medications Albuterol Sulfate (Ventolin 0.083% Nebulizer Soln -) 1 amp NEB Q4H PRN PRN Reason: SHORT OF BREATH/WHEEZING Albuterol/Ipratropium (Duoneb -) 1 amp NEB RTID [facility] Last Admin: 11/11/18 14:45 Dose: Not Given Amlodipine Besylate (Norvasc -) [address] [facility] Last Admin: 07/31/18 09:19 Dose: 10 mg Aripiprazole (Abilify) [address] [facility] Last Admin: 07/31/18 09:19 Dose: 10 mg Carvedilol (Coreg -) [address] [facility] Last Admin: 07/31/18 09:19 Dose: 25 mg Heparin Sodium (Porcine) (Heparin -) 5,[address] [facility] Last Admin: 07/31/18 13:49 Dose: 5,000 unit Hydralazine HCl (Apresoline -) [address] [facility] Last Admin: 07/31/18 13:49 Dose: 100 mg IMAGING: -CXR (07/24): Since 06/17/2018, there are new congestive changes with chin artifact and prominent mediastinum. -CXR (07/26): Worse. Progressive pulmonary and pleural changes since 07/24/2018. -Kidney/Renal US: Echogenic kidneys consistent with chronic medical renal disease. No evidence of hydronephrosis or acute pathology. -EKG: SINUS TACHYCARDIA WITH FREQUENT PREMATURE VENTRICULAR COMPLEXES, VR 116, QTc 497 ASSESSMENT/PLAN: 58 y/o M with PMHx of ?CHF, NIDDM, HTN, HLD presents to [facility] with SOB #SOB -Likely due to Acute Diastolic CHF from not taking his prescribed medications -Further Diuresis held, Cr remains at 4.0 -Currently on RA -Was on Bipap (Ipap 14, Epap 6, Rate 16, O2 45%), Given IV Lasix 80mg and started on Nitro drip in ED -ECHO (06/17/18): LV EF is normal, LV Wall motion is normal, Trace MR, E/A Reversal consistent with but not diagnostic of poor LV compliance #HTN Emergency -Continue Home dose Norvasc, Coreg -Continue Hydralazine 100mg TID -Cardiology (Dr. Maddox) Consulted, Appreciate Rec's -Trop 0.08 x2, EKG noted above -No repeat echo or ischemia workup at this point -Avoid QTc prolonging medications (QTc 497) #YOCASTA -Cr improving, Lasix held pending Nephro -Nephrotic range Proteinuria -Nephrology (Dr. Raphael) Consulted, Appreciate Rec's, Further management as per Nephro -Avoid Nephrotoxic medications -Renal US noted above -Renal bx refused #Bipolar disorder -Psych (Dr. Limon) consulted, Appreicate rec's -Continue on Abilify -Will need outpatient Psych follow up #FEN -PO Fluids -Continue to monitor Hypernatremia -Sodium Controlled diet #PPx -DVT: Heparin Dispo: Med-Surg Visit type - Emergency Visit Emergency Visit: Yes ED Registration Date: 07/24/18 Care time: The patient presented to the Emergency Department on the above date and was hospitalized for further evaluation of their emergent condition. - New Patient This patient is new to me today: No - Critical Care Critical Care patient: No - Discharge Referral Referred to [facility] Med P.C.: No
[2018-08-01] MEDS ORDERED: PT OWN MED DRAWER 7, Y5N ONE ×2 (05:49→09:55)
[2018-08-01] MEDS: HEPARIN NA (PORCINE) 5,000 UNITS/ML 1ML VIAL SQ SCH ×3 (06:28→21:12)
[2018-08-01] MEDS: hydrALAZINE HCL 50 MG TABLET (FP) PO SCH ×3 (06:28→21:12)
[2018-08-01] MEDS: ALBUTEROL SO4 2.5/IPRATROPIUM 0.5 INH SOL 3 ML VIAL.NEB. NEB SCH ×3 (07:36→20:57)
[2018-08-01 07:52] LABS: BASO % 0.6 % (0-2.0); EOS % 3.9 % (0-4.5); HEMATOCRIT 30.4 % (35.4-49); HEMOGLOBIN 9.5 GM/dL (11.7-16.9); MCH 23.8 pg (25.7-33.7); MCHC 31.1 g/dl (32.0-35.9); MEAN CELL VOLUME 76.6 fl (80-96); MEAN PLT VOLUME 8.6 fl (7.5-11.1); MONO % 7.8 % (3.8-10.2); NEUT % 74.7 % (42.8-82.8); PLATELET COUNT 270 K/MM3 (134-434); RBC 3.97 M/mm3 (4.00-5.60); RDW 18.2 % (11.9-15.9); WHITE BLOOD COUNT 8.3 K/mm3 (4.0-10.0)
[2018-08-01 07:54] LABS: ALBUMIN 2.4 g/dl (3.4-5.0); ALK PHOS 110 U/L (45-117); ANION GAP 11 MMOL/L (8-16); BILIRUBIN,TOTAL 0.2 mg/dL (0.2-1); BLOOD UREA NITROGEN 56 mg/dL (7-18); CALCIUM 8.1 mg/dL (8.5-10.1); CHLORIDE 114 mmol/L (98-107); CO2 20 mmol/L (21-32); CREATININE 3.8 mg/dL (0.55-1.3); GLUCOSE,RANDOM 92 mg/dL (74-106); MAGNESIUM 2.2 mg/dL (1.8-2.4); PHOSPHOROUS 5.1 mg/dL (2.5-4.9); POTASSIUM 4.2 mmol/L (3.5-5.1); SGOT/AST 17 U/L (15-37); SGPT/ALT 22 U/L (13-61); SODIUM 144 mmol/L (136-145); TOT PROT 6.7 g/dl (6.4-8.2)
[2018-08-01] MEDS: ARIPiprazole 10 MG TABLET PO SCH (10:59)
[2018-08-01] MEDS: amLODIPine BESYLATE 10 MG TABLET (FP) PO SCH (10:59)
[2018-08-01] MEDS: CARVEDILOL 25 MG TABLET (FP) PO SCH ×2 (10:59→21:12)
--- NOTE | 2018-08-01 11:49 | PN ---
Progress Note, Physician History of Present Illness: Pt seen and examined at bedside. He is asking to go home. He wants workup to be done as outpt. He does not want any ore input tests. He refused kidney biopsy to evaluate proteinuria. - Current Medication List Current Medications: Active Medications Albuterol Sulfate (Ventolin 0.083% Nebulizer Soln -) 1 amp NEB Q4H PRN PRN Reason: SHORT OF BREATH/WHEEZING Albuterol/Ipratropium (Duoneb -) 1 amp NEB RTID [facility] Last Admin: 08/01/18 07:36 Dose: 1 amp Amlodipine Besylate (Norvasc -) 10 mg PO DAILY [facility] Last Admin: 08/01/18 10:59 Dose: 10 mg Aripiprazole (Abilify) 10 mg PO DAILY [facility] Last Admin: 08/01/18 10:59 Dose: 10 mg Carvedilol (Coreg -) 25 mg PO BID [facility] Last Admin: 08/01/18 10:59 Dose: 25 mg Heparin Sodium (Porcine) (Heparin -) 5,000 unit SQ TID [facility] Last Admin: 08/01/18 06:28 Dose: 5,000 unit Hydralazine HCl (Apresoline -) 100 mg PO TID [facility] Last Admin: 08/01/18 06:28 Dose: 100 mg - Objective Vital Signs: Vital Signs Temperature 97.6 F 08/01/18 10:26 Pulse Rate 89 08/01/18 10:26 Respiratory Rate 22 H 08/01/18 10:26 Blood Pressure 150/82 08/01/18 10:26 O2 Sat by Pulse Oximetry (%) 99 07/31/18 21:00 Constitutional: Yes: Calm Eyes: Yes: Conjunctiva Clear HENT: Yes: Atraumatic Neck: Yes: Supple Cardiovascular: Yes: S1, S2 Respiratory: Yes: CTA Bilaterally Gastrointestinal: Yes: Soft, Abdomen, Obese Genitourinary: Yes: WNL Musculoskeletal: Yes: WNL Edema: No Neurological: Yes: Oriented Psychiatric: Yes: Oriented Labs: CBC, BMP 08/01/18 06:15 08/01/18 06:15 INR, PTT INR 0.98 (0.83-1.09) 07/24/18 01:30 EST Problem List - Problems (1) CHF (congestive heart failure) Code(s): I50.9 - HEART FAILURE, UNSPECIFIED Qualifiers: Heart failure type: unspecified Heart failure chronicity: acute on chronic Qualified Code(s): I50.9 - Heart failure, unspecified (2) YOCASTA (acute kidney injury) Code(s): N17.9 - ACUTE KIDNEY FAILURE, UNSPECIFIED (3) CKD (chronic kidney disease) Code(s): N18.9 - CHRONIC KIDNEY DISEASE, UNSPECIFIED Assessment/Plan Current Medications Generic Name Dose Route Start Last Admin Trade Name Vandana PRN Reason Stop Dose Admin Albuterol Sulfate 1 amp 07/28/18 09:37 Ventolin 0.083% Nebulizer Soln - NEB Q4H PRN SHORT OF BREATH/WHEEZING Albuterol/Ipratropium 1 amp 07/28/18 14:00 08/01/18 07:36 Duoneb - NEB 1 amp RTID [facility] Administration Amlodipine Besylate 10 mg 07/28/18 10:00 08/01/18 10:59 Norvasc - PO 10 mg DAILY [facility] Administration Aripiprazole 10 mg 07/26/18 10:00 08/01/18 10:59 Abilify PO 10 mg DAILY [facility] Administration Carvedilol 25 mg 07/27/18 22:00 08/01/18 10:59 Coreg - PO 25 mg BID [facility] Administration Heparin Sodium (Porcine) 5,000 unit 07/27/18 22:00 08/01/18 06:28 Heparin - SQ 5,000 unit TID [facility] Administration Hydralazine HCl 100 mg 07/27/18 11:20 08/01/18 06:28 Apresoline - PO 100 mg TID RONALD Administration Impression 1. YOCASTA 2. CKD 3. volume overload 4. HTN 5. CHF 6. DM 7. hx bipolar 8. gout Plan - renal function is a little better - he will likely need to be on diuretics at home but he refused to take lasix here - I discussed that his kidney function has worsening and it would benefit him to get a kidney biopsy to evaluate why he has proteinuria. He declined and says he will think about it and come to office as outpt. He also understands that if the kidneys worsen he may need dialysis - I can see the pt in the office if he comes. He did not make an appointment after his last hospitalization - cxr shows mild congestion - renal diet on discharge - avoid nsaids
--- NOTE | 2018-08-01 14:20 | PN ---
Physical Exam: SUBJECTIVE: Patient seen and examined this morning at bedside. No new complaints , no acute events overnight as per nursing. OBJECTIVE: Vital Signs Period Temp Pulse Resp BP Sys/Castillo Pulse Ox Last 24 Hr 97.6 F-98.5 F 85-97 16-22 125-150/58-82 99 GENERAL: A&Ox3, NAD HEAD: NCAT EYES: PERRL, EOMI LUNGS: CTAB, No wheezes HEART: Regular rate and rhythm, normal S1 and S2 without murmur ABDOMEN: Soft, nontender, not distended, + bowel sounds, no guarding LOWER EXTREMITIES: 2+ pulses, Edema improving NEUROLOGICAL: Cranial nerves II-XII intact. Normal speech SKIN: Warm, dry Laboratory Results - last 24 hr 08/01/18 08/01/18 06:15 06:15 WBC 8.3 RBC 3.97 L Hgb 9.5 L Hct 30.4 L MCV 76.6 L MCH 23.8 L MCHC 31.1 L RDW 18.2 H Plt Count 270 MPV 8.6 Absolute Neuts (auto) 6.2 Neutrophils % 74.7 Lymphocytes % 13.0 Monocytes % 7.8 Eosinophils % 3.9 Basophils % 0.6 Nucleated RBC % 0 Sodium 144 Potassium 4.2 Chloride 114 H Carbon Dioxide 20 L Anion Gap 11 BUN 56 H Creatinine 3.8 H Creat Clearance w eGFR 16.56 Random Glucose 92 Calcium 8.1 L Phosphorus 5.1 H Magnesium 2.2 Total Bilirubin 0.2 AST 17 ALT 22 Alkaline Phosphatase 110 Total Protein 6.7 Albumin 2.4 L Microbiology 07/24/18 08:53 Blood - Peripheral Venous Blood Culture - Final NO GROWTH AFTER 5 DAYS INCUBATION 07/24/18 08:53 Blood - Peripheral Venous Blood Culture - Final NO GROWTH AFTER 5 DAYS INCUBATION 07/24/18 09:43 Nasopharyngeal Swab Influenza Types A,B Antigen - Final 07/24/18 09:43 Nasopharyngeal Swab - Final Active Medications Albuterol Sulfate (Ventolin 0.083% Nebulizer Soln -) 1 amp NEB Q4H PRN PRN Reason: SHORT OF BREATH/WHEEZING Albuterol/Ipratropium (Duoneb -) 1 amp NEB RTID [facility] Last Admin: 08/01/18 13:34 Dose: 1 amp Amlodipine Besylate (Norvasc -) 10 mg PO DAILY [facility] Last Admin: 08/01/18 10:59 Dose: 10 mg Aripiprazole (Abilify) 10 mg PO DAILY [facility] Last Admin: 08/01/18 10:59 Dose: 10 mg Carvedilol (Coreg -) 25 mg PO BID [facility] Last Admin: 08/01/18 10:59 Dose: 25 mg Heparin Sodium (Porcine) (Heparin -) 5,000 unit SQ TID [facility] Last Admin: 08/01/18 06:28 Dose: 5,000 unit Hydralazine HCl (Apresoline -) 100 mg PO TID [facility] Last Admin: 08/01/18 06:28 Dose: 100 mg IMAGING: -CXR (07/24): Since 06/17/2018, there are new congestive changes with chin artifact and prominent mediastinum. -CXR (07/26): Worse. Progressive pulmonary and pleural changes since 07/24/2018. -CXR (07/31): A single AP view the chest reveals a widened mediastinum, apical lordotic projection and some congestive findings. There is an elevated right hemidiaphragm. There are degenerative changes. Correlation recommended. -Kidney/Renal US: Echogenic kidneys consistent with chronic medical renal disease. No evidence of hydronephrosis or acute pathology. -EKG: SINUS TACHYCARDIA WITH FREQUENT PREMATURE VENTRICULAR COMPLEXES, VR 116, QTc 497 ASSESSMENT/PLAN: 58 y/o M with PMHx of ?CHF, NIDDM, HTN, HLD presents to [facility] with SOB #SOB -Likely due to Acute Diastolic CHF from not taking his prescribed medications -Further Diuresis held, Cr remains above baseline -Was on Bipap (Ipap 14, Epap 6, Rate 16, O2 45%), Given IV Lasix 80mg and started on Nitro drip in ED -ECHO (06/17/18): LV EF is normal, LV Wall motion is normal, Trace MR, E/A Reversal consistent with but not diagnostic of poor LV compliance #HTN Emergency -BP still not at goal, further management per cardio -Continue Home dose Coreg -Continue Hydralazine 100mg TID -D/C'ed Amlodipine; Will Start Procardia XL 30mg tmrw -Cardiology (Dr. Maddox) Consulted, Appreciate Rec's -Trop 0.08 x2, EKG noted above -No repeat echo or ischemia workup at this point -Avoid QTc prolonging medications (QTc 497) #YOCASTA -Lasix held pending Nephro -Nephrotic range Proteinuria -Nephrology (Dr. Raphael) Consulted, Appreciate Rec's, Further management as per Nephro -Avoid Nephrotoxic medications -Renal US noted above -Renal bx refused #Bipolar disorder -Psych (Dr. Limon) consulted, Appreicate rec's -Continue on Abilify -Will need outpatient Psych follow up #FEN -PO Fluids -Continue to monitor Hypernatremia -Sodium Controlled diet #PPx -DVT: Heparin Dispo: Med-Surg Visit type - Emergency Visit Emergency Visit: Yes ED Registration Date: 07/24/18 Care time: The patient presented to the Emergency Department on the above date and was hospitalized for further evaluation of their emergent condition. - New Patient This patient is new to me today: No - Critical Care Critical Care patient: No - Discharge Referral Referred to [facility] Med [facility] No
--- NOTE | 2018-08-01 15:43 | PN ---
Progress Note, Physician Chief Complaint: No complaints today History of Present Illness: 58 y/o M with PMHx of diastolic CHF, NIDDM, HTN, HLD, CKD 5 bipolar disorder recent admission for bp control, ckd and sob did not take medications post DC now presents to [facility] with SOB, edema and orthopnea. Found hypertensive in pulmonary edema. Given meds and IV lasix, IVNTG. Denies chest pain. echo 06/17/18 nlef trace MR. . - Current Medication List Current Medications: Active Medications Albuterol Sulfate (Ventolin 0.083% Nebulizer Soln -) 1 amp NEB Q4H PRN PRN Reason: SHORT OF BREATH/WHEEZING Albuterol/Ipratropium (Duoneb -) 1 amp NEB RTID [facility] Last Admin: 08/01/18 13:34 Dose: 1 amp Amlodipine Besylate (Norvasc -) 10 mg PO DAILY [facility] Last Admin: 08/01/18 10:59 Dose: 10 mg Aripiprazole (Abilify) 10 mg PO DAILY [facility] Last Admin: 08/01/18 10:59 Dose: 10 mg Carvedilol (Coreg -) 25 mg PO BID [facility] Last Admin: 08/01/18 10:59 Dose: 25 mg Heparin Sodium (Porcine) (Heparin -) 5,000 unit SQ TID [facility] Last Admin: 08/01/18 06:28 Dose: 5,000 unit Hydralazine HCl (Apresoline -) 100 mg PO TID [facility] Last Admin: 08/01/18 06:28 Dose: 100 mg - Objective Vital Signs: Vital Signs Temperature 98.4 F 08/01/18 15:21 Pulse Rate 98 H 08/01/18 15:21 Respiratory Rate 20 08/01/18 15:21 Blood Pressure 145/88 08/01/18 15:21 O2 Sat by Pulse Oximetry (%) 99 07/31/18 21:00 Constitutional: Yes: No Distress Neck: Yes: Supple Cardiovascular: Yes: Regular Rate and Rhythm, S1, S2. No: Murmur Respiratory: Yes: CTA Bilaterally Gastrointestinal: Yes: Soft Edema: No Labs: CBC, BMP 08/01/18 06:15 08/01/18 06:15 INR, PTT INR 0.98 (0.83-1.09) 07/24/18 01:30 EST Assessment/Plan 58 y/o M with PMHx of diastolic CHF, NIDDM, HTN, HLD, CKD 5 bipolar disorder recent admission for bp control, ckd and sob did not take medications post DC now presents to [facility] with SOB, edema and orthopnea. Found hypertensive in pulmonary edema. Given meds and IV lasix, IVNTG. Feeling better this AM. Denies chest pain. echo 06/17/18 nlef trace MR. 1. SOB-acute on chronic diastolic CHF -euvolemic now -due to CKD and medication noncompliance. -Blood pressure today is controlled. Needs sleep apnea evaluation. If bp trends up and needs medication adjustment would first change amlodipine to nifedipine. If still needs better controll than add imdur. Will sign off
--- NOTE | 2018-08-01 19:59 | PN ---
Teaching Attending Note Name of Resident: Gisel Shah ATTENDING PHYSICIAN STATEMENT I saw and evaluated the patient. I reviewed the resident's note and discussed the case with the resident. I agree with the resident's findings and plan as documented. SUBJECTIVE: Patient is better but refusing Kidney Bx. slightly elevated Blood pressure. OBJECTIVE: Vital Signs Temperature 98.2 F 08/01/18 16:15 Pulse Rate 87 08/01/18 16:15 Respiratory Rate 18 08/01/18 16:15 Blood Pressure 150/81 08/01/18 16:15 O2 Sat by Pulse Oximetry (%) 99 08/01/18 09:00 GENERAL: A&Ox3, NAD HEAD: NCAT;EYES: PERRL, EOMI LUNGS: CTAB, Decreased breath sounds at the bases , poor inspiratory effort HEART: Regular rate and rhythm, normal S1 and S2 without murmur ABDOMEN: Soft, NT, not distended, + bowel sounds, no guarding LOWER EXTREMITIES: 2+ pulses, Edema improving NEUROLOGICAL: Cranial nerves II-XII intact. Normal speech SKIN: Warm, dry. CBCD WBC 8.3 K/mm3 (4.0-10.0) 08/01/18 06:15 RBC 3.97 M/mm3 (4.00-5.60) L 08/01/18 06:15 Hgb 9.5 GM/dL (11.7-16.9) L 08/01/18 06:15 Hct 30.4 % (35.4-49) L 08/01/18 06:15 MCV 76.6 fl (80-96) L 08/01/18 06:15 MCHC 31.1 g/dl (32.0-35.9) L 08/01/18 06:15 RDW 18.2 % (11.9-15.9) H 08/01/18 06:15 Plt Count 270 K/MM3 (134-434) 08/01/18 06:15 MPV 8.6 fl (7.5-11.1) 08/01/18 06:15 CMP Sodium 144 mmol/L (136-145) 08/01/18 06:15 Potassium 4.2 mmol/L (3.5-5.1) 08/01/18 06:15 Chloride 114 mmol/L (98-107) H 08/01/18 06:15 Carbon Dioxide 20 mmol/L (21-32) L 08/01/18 06:15 Anion Gap 11 MMOL/L (8-16) 08/01/18 06:15 BUN 56 mg/dL (7-18) H 08/01/18 06:15 Creatinine 3.8 mg/dL (0.55-1.3) H 08/01/18 06:15 Creat Clearance w eGFR 16.56 (>60) 08/01/18 06:15 Random Glucose 92 mg/dL (74-106) 08/01/18 06:15 Calcium 8.1 mg/dL (8.5-10.1) L 08/01/18 06:15 Total Bilirubin 0.2 mg/dL (0.2-1) 08/01/18 06:15 AST 17 U/L (15-37) 08/01/18 06:15 ALT 22 U/L (13-61) 08/01/18 06:15 Alkaline Phosphatase 110 U/L (45-117) 08/01/18 06:15 Total Protein 6.7 g/dl (6.4-8.2) 08/01/18 06:15 Albumin 2.4 g/dl (3.4-5.0) L 08/01/18 06:15 CARDIAC ENZYMES Creatine Kinase 189 IU/L (26-308) 07/24/18 05:03 Troponin I 0.07 ng/ml (0.00-0.05) H 07/24/18 12:14 Current Medications Generic Name Dose Route Start Last Admin Trade Name Freq PRN Reason Stop Dose Admin Albuterol Sulfate 1 amp 07/28/18 09:37 Ventolin 0.083% Nebulizer Soln - NEB Q4H PRN SHORT OF BREATH/WHEEZING Albuterol/Ipratropium 1 amp 07/28/18 14:00 08/01/18 13:34 Duoneb - NEB 1 amp RTID [facility] Administration Aripiprazole 10 mg 07/26/18 10:00 08/01/18 10:59 Abilify PO 10 mg DAILY [facility] Administration Carvedilol 25 mg 07/27/18 22:00 08/01/18 10:59 Coreg - PO 25 mg BID [facility] Administration Heparin Sodium (Porcine) 5,000 unit 07/27/18 22:00 08/01/18 16:34 Heparin - SQ 5,000 unit TID [facility] Administration Hydralazine HCl 100 mg 07/27/18 11:20 08/01/18 16:33 Apresoline - PO 100 mg TID [facility] Administration Nifedipine 30 mg 08/02/18 10:00 Procardia Xl - PO DAILY [facility] Home Medications Medication Instructions Recorded Amlodipine Besylate 10 mg PO DAILY 04/24/17 Aripiprazole [Abilify] 10 mg PO DAILY 04/24/17 Atorvastatin Ca [Lipitor] 40 mg PO HS 04/24/17 Valsartan 320 mg PO DAILY 04/24/17 Carvedilol 1 tab PO BID 07/25/18 ASSESSMENT AND PLAN: Patient is a 58 y/o man with h/o MOLLY, not on CPAP, gout, diastolic CHF, CKD, HTN , morbid obesity , bipolar, depression, non compliance and recent admission fro HTN and YOCASTA who presented with SOB and was found to have acute respiratory failure due to HTN emergency. # HTN emergency improved: BP better controlled today will continue coreg, HZN, added Procardia xl 30mg and dc Norvasc. continue to monitor BP. # Elevated trop: due to demand ischemia due to HTN emergency. # YOCASTA on CKD: with nephrotic range proteinuria. creatinine is 4.0-->3.8-->3.8--> 4.0-->3.8 today , continue to hold lasix and further management per Nephro. continue to monitor. Renal Bx will be offered as inpatient. Kidney function is improving but not back to baseline, patient needs bx but refusing. # QTc prolonged , avoid any Qtc prolonging agents # Acute diastolic CHF: improved but renal function worsening , continue to hold lasix. # Bipolar and depression : cont Abilify and f/u with psych at dc. DVT Px : heparin sq patient refusing biopsy. will discuss with nephrology
[2018-08-02] MEDS: HEPARIN NA (PORCINE) 5,000 UNITS/ML 1ML VIAL SQ SCH (05:49)
[2018-08-02] MEDS: hydrALAZINE HCL 50 MG TABLET (FP) PO SCH (05:50)
[2018-08-02] MEDS: ALBUTEROL SO4 2.5/IPRATROPIUM 0.5 INH SOL 3 ML VIAL.NEB. NEB SCH (08:30)
[2018-08-02 08:33] LABS: ANION GAP 10 MMOL/L (8-16); BLOOD UREA NITROGEN 51 mg/dL (7-18); CHLORIDE 113 mmol/L (98-107); CO2 21 mmol/L (21-32); CREATININE 3.6 mg/dL (0.55-1.3); GLUCOSE,RANDOM 94 mg/dL (74-106); MAGNESIUM 2.3 mg/dL (1.8-2.4); PHOSPHOROUS 5.3 mg/dL (2.5-4.9); POTASSIUM 4.2 mmol/L (3.5-5.1); SODIUM 144 mmol/L (136-145)
[2018-08-02] MEDS: CARVEDILOL 25 MG TABLET (FP) PO SCH (09:26)
[2018-08-02] MEDS: ARIPiprazole 10 MG TABLET PO SCH (09:27)
[2018-08-02 09:31] VITALS: BP 140/76; PULSE 94; TEMP 98.3
[2018-08-02] MEDS ORDERED: NIFEdipine E.R. 30 MG TABLET (FP) PO SCH (10:00)
--- NOTE | 2018-08-02 12:10 | DS ---
Physical Exam: SUBJECTIVE: Patient seen and examined this morning at bedside. No new complaints , no acute events overnight as per nursing. OBJECTIVE: Vital Signs Period Temp Pulse Resp BP Sys/Castillo Pulse Ox Last 24 Hr 97.4 F-98.6 F 78-98 18-22 131-150/76-96 98-99 PHYSICAL EXAM GENERAL: A&Ox3, NAD HEAD: NCAT EYES: PERRL, EOMI LUNGS: CTAB, No wheezes HEART: Regular rate and rhythm, normal S1 and S2 without murmur ABDOMEN: Soft, nontender, not distended, + bowel sounds, no guarding LOWER EXTREMITIES: 2+ pulses, Edema improving NEUROLOGICAL: Cranial nerves II-XII intact. Normal speech SKIN: Warm, dry LABS Laboratory Last Values WBC 8.3 K/mm3 (4.0-10.0) 08/01/18 06:15 RBC 3.97 M/mm3 (4.00-5.60) L 08/01/18 06:15 Hgb 9.5 GM/dL (11.7-16.9) L 08/01/18 06:15 Hct 30.4 % (35.4-49) L 08/01/18 06:15 MCV 76.6 fl (80-96) L 08/01/18 06:15 MCH 23.8 pg (25.7-33.7) L 08/01/18 06:15 MCHC 31.1 g/dl (32.0-35.9) L 08/01/18 06:15 RDW 18.2 % (11.9-15.9) H 08/01/18 06:15 Plt Count 270 K/MM3 (134-434) 08/01/18 06:15 MPV 8.6 fl (7.5-11.1) 08/01/18 06:15 Absolute Neuts (auto) 6.2 K/mm3 (1.5-8.0) 08/01/18 06:15 Neutrophils % 74.7 % (42.8-82.8) 08/01/18 06:15 Lymphocytes % 13.0 % (8-40) 08/01/18 06:15 Monocytes % 7.8 % (3.8-10.2) 08/01/18 06:15 Eosinophils % 3.9 % (0-4.5) 08/01/18 06:15 Basophils % 0.6 % (0-2.0) 08/01/18 06:15 Nucleated RBC % 0 % (0-0) 08/01/18 06:15 ESR 113 mm/hr (0-20) H 07/24/18 09:55 PT with INR 11.60 SEC (9.7-13.0) 07/24/18 01:30 EST INR 0.98 (0.83-1.09) 07/24/18 01:30 EST Anticoagulation Therapy No Result Required. 07/24/18 05:55 Puncture Site No Result Required. 07/24/18 05:55 ABG pH 7.34 (7.35-7.45) L 07/24/18 05:55 ABG pCO2 at Pt Temp 39.0 mmHg (35-45) 07/24/18 05:55 ABG pO2 at Pt Temp 140.0 mmHg (80-100) H 07/24/18 05:55 ABG HCO3 20.5 meq/L (22-26) L 07/24/18 05:55 ABG O2 Sat (Measured) 99.0 % (90-98.9) H 07/24/18 05:55 ABG O2 Content 11.2 % vol (15-22) L 07/24/18 05:55 ABG Base Excess -4.4 meq/l (-2-2) L 07/24/18 05:55 Tom Test No Result Required. 07/24/18 05:55 Carboxyhemoglobin 1.3 gm% (0.5-2.0) 07/24/18 05:55 Methemoglobin 0.8 % (0.4-1.5) 07/24/18 05:55 O2 Delivery Device No Result Required. 07/24/18 05:55 Oxygen Flow Rate No Result Required. 07/24/18 05:55 Vent Mode No Result Required. 07/24/18 05:55 Vent Rate No Result Required. 07/24/18 05:55 Mechanical Rate No Result Required. 07/24/18 05:55 Pressure Support Vent No Result Required. 07/24/18 05:55 Sodium 144 mmol/L (136-145) 08/02/18 07:00 Potassium 4.2 mmol/L (3.5-5.1) 08/02/18 07:00 Chloride 113 mmol/L (98-107) H 08/02/18 07:00 Carbon Dioxide 21 mmol/L (21-32) 08/02/18 07:00 Anion Gap 10 MMOL/L (8-16) 08/02/18 07:00 BUN 51 mg/dL (7-18) H 08/02/18 07:00 Creatinine 3.6 mg/dL (0.55-1.3) H 08/02/18 07:00 Creat Clearance w eGFR 17.63 (>60) 08/02/18 07:00 POC Glucometer 118 UNITS (80-120) 07/29/18 05:24 Random Glucose 94 mg/dL (74-106) 08/02/18 07:00 Calcium 8.0 mg/dL (8.5-10.1) L 08/02/18 07:00 Phosphorus 5.3 mg/dL (2.5-4.9) H 08/02/18 07:00 Magnesium 2.3 mg/dL (1.8-2.4) 08/02/18 07:00 Total Bilirubin 0.2 mg/dL (0.2-1) 08/01/18 06:15 AST 17 U/L (15-37) 08/01/18 06:15 ALT 22 U/L (13-61) 08/01/18 06:15 Alkaline Phosphatase 110 U/L (45-117) 08/01/18 06:15 Creatine Kinase 189 IU/L (26-308) 07/24/18 05:03 Creatine Kinase Index 1.4 % (0.0-5.0) 07/24/18 05:03 CK-MB (CK-2) 2.7 ng/mL (0.5-3.6) 07/24/18 05:03 Troponin I 0.07 ng/ml (0.00-0.05) H 07/24/18 12:14 C-Reactive Protein 6.1 MG/DL (0.00-0.3) H 07/24/18 09:55 B-Natriuretic Peptide 2251.7 pg/ml (5-125) H 07/24/18 01:30 EST Total Protein 6.7 g/dl (6.4-8.2) 08/01/18 06:15 Albumin 2.4 g/dl (3.4-5.0) L 08/01/18 06:15 Urine Protein 616 mg/dl (5.0-11.9) H 07/24/18 10:50 U Random Total Protein 349 mg/dl (0-11.9) H 07/30/18 20:15 Ur Random Sodium 51 MMOL/L (40-220) 07/24/18 10:50 Ur Random Potassium 28.0 MMOL/L (25-125) 07/24/18 10:50 Ur Random Chloride 55 MMOL/L (110-250) L 07/24/18 10:50 Ur Random Urea Nitrogn 486 mg/dL (350-1000) 07/24/18 10:50 Urine Creatinine 84.0 mg/dL (2-36) H 07/30/18 20:15 Protein/Creatinin Ratio 4.15 MG/DL 07/30/18 20:15 Microbiology 07/24/18 08:53 Blood - Peripheral Venous Blood Culture - Final NO GROWTH AFTER 5 DAYS INCUBATION 07/24/18 08:53 Blood - Peripheral Venous Blood Culture - Final NO GROWTH AFTER 5 DAYS INCUBATION 07/24/18 09:43 Nasopharyngeal Swab Influenza Types A,B Antigen - Final 07/24/18 09:43 Nasopharyngeal Swab - Final IMAGING: -CXR (07/24): Since 06/17/2018, there are new congestive changes with chin artifact and prominent mediastinum. -CXR (07/26): Worse. Progressive pulmonary and pleural changes since 07/24/2018. -CXR (07/31): A single AP view the chest reveals a widened mediastinum, apical lordotic projection and some congestive findings. There is an elevated right hemidiaphragm. There are degenerative changes. Correlation recommended. -Kidney/Renal US: Echogenic kidneys consistent with chronic medical renal disease. No evidence of hydronephrosis or acute pathology. -EKG: SINUS TACHYCARDIA WITH FREQUENT PREMATURE VENTRICULAR COMPLEXES, VR 116, QTc 497 HOSPITAL COURSE: Date of Admission:07/24/18 Date of Discharge: 08/02/18 58 y/o M presented to [facility] with SOB. Patient was placed on Bipap and started on a Nitro drip in the ED. Patient was recently discharged from [facility] in Late May, and had an ECHO during that visit. His SOB improved after being given IV Lasix. On admission, patient was found to be in Hypertensive Emergency. Cardiology was consulted and suggested no repeat echo or ischemia workup at this time. Additionally, patient was found to be in YOCASTA on admission for which Nephrology was consulted. Patients Cr began to rise and further diuresis was held. Imaging was done (noted above) and Patient was offered Renal Bx multiple times but refused. His home dose Hydralazine was increased yo 100mg TID and his Amlodipine was d/c'ed; Procardia XL 60mg was added to his regimen. Psychiatry was consulted for patients hx of Bipolar disorder and patient was continued on his home regimen. Patient was discharged home before receiving his DC instructions. Minutes to complete discharge: 45 Discharge Summary Reason For Visit: CONGESTIVE HEART FAILURE Current Active Problems YOCASTA (acute kidney injury) (Acute) CHF (congestive heart failure) (Acute) Diabetes (Acute) Dyspnea (Acute) Hypertension (Acute) Hypertensive urgency (Acute) Morbid (severe) obesity due to excess calories (Acute) Non compliance w medication regimen (Acute) MOLLY (obstructive sleep apnea) (Acute) CKD (chronic kidney disease) (Chronic) Tachycardia (Chronic) Condition: Improved - Instructions Diet, Activity, Other Instructions: You presented to the hospital with shortness of breath and were admitted for heart failure Physician Follow ups 1. PCP: In one week, please call to schedule follow up 2. Cardiology: Dr. Maddox in one week to further manage your heart failure. 3. Nephrology: Dr. Raphael in one week to further manage your chronic kidney disease 4. Pulmonology: Dr. Austin in one week as you need pulmonary function tests 5. Psychiatry: Dr. Limon in one week to further manage your depression/anxiety You need follow up labs, BMP, Mag, Phos in one week. Please stop taking your home dose Amlodipine (Norvasc). You are being discharged on Procardia XL 60mg daily. Please stop taking Valsartan also. Please monitor your BP at home and keep a record. Please give this record to your PCP as you may need to further adjust your BP medications. Please drink 2L of fluid daily as it will help improve your kidney function. YOU NEED TO HAVE A KIDNEY BIOPSY, however you refused this during your hospital stay. Please follow up with Nephrology to further manage. Continue all your other medications as prescribed Please return to the ER if you have any signs or symptoms of chest pain, shortness of breath, uncontrollable fever, chills, nausea, vomiting, numbness, tingling, or weakness in any part of your body, changes in vision, or slurred speech. Please return to the ER if symptoms persist, worsen, or new symptoms arise. Referrals: Anson Maddox MD [Staff Physician] - 1 Week Junior Austin MD [Staff Physician] - 1 Week Stanford Limon MD [Staff Physician] - 1 Week Elisabet Raphael MD [Staff Physician] - 1 Week German Del Angel [Non Staff, Medical] - Disposition: HOME - Home Medications Comprehensive Discharge Medication List: Ambulatory Orders Aripiprazole [Abilify] 10 mg PO DAILY 04/24/17 Atorvastatin Ca [Lipitor] 40 mg PO HS 04/24/17 Carvedilol 1 tab PO BID 07/25/18 Albuterol 0.083% Nebulizer Jaclyn [Ventolin 0.083% Nebulizer Soln -] 1 amp NEB Q4H PRN #1 amp 08/02/18 Carvedilol [Coreg -] 25 mg PO BID #60 tablet 08/02/18 Nifedipine ER [Procardia Xl -] 60 mg PO DAILY #30 tab.er.24 08/02/18 hydrALAZINE HCL [Apresoline -] 100 mg PO TID #90 tablet 08/02/18 This patient is new to me today: No Emergency Visit: Yes ED Registration Date: 07/24/18 Care time: The patient presented to the Emergency Department on the above date and was hospitalized for further evaluation of their emergent condition. Critical Care patient: No - Discharge Referral Referred to [facility] Med [facility].C[facility] No
--- NOTE | 2018-08-02 21:28 | PN ---
Teaching Attending Note Name of Resident: Gisel Shah ATTENDING PHYSICIAN STATEMENT I saw and evaluated the patient. I reviewed the resident's note and discussed the case with the resident. I agree with the resident's findings and plan as documented. SUBJECTIVE: Patient is better , refusing bX OF THE KIDNEYS. OBJECTIVE: Vital Signs Temperature 98.3 F 08/02/18 09:00 Pulse Rate 94 H 08/02/18 09:00 Respiratory Rate 22 H 08/02/18 09:00 Blood Pressure 140/76 08/02/18 09:00 O2 Sat by Pulse Oximetry (%) 98 08/02/18 09:00 GENERAL: A&Ox3, NAD HEAD: NCAT;EYES: PERRL, EOMI LUNGS: CTAB, Decreased breath sounds at the bases , poor inspiratory effort HEART: Regular rate and rhythm, normal S1 and S2 without murmur ABDOMEN: Soft, NT, not distended, + bowel sounds, no guarding LOWER EXTREMITIES: 2+ pulses, Edema improving NEUROLOGICAL: Cranial nerves II-XII intact. Normal speech SKIN: Warm, dry.CBCD WBC 8.3 K/mm3 (4.0-10.0) 08/01/18 06:15 RBC 3.97 M/mm3 (4.00-5.60) L 08/01/18 06:15 Hgb 9.5 GM/dL (11.7-16.9) L 08/01/18 06:15 Hct 30.4 % (35.4-49) L 08/01/18 06:15 MCV 76.6 fl (80-96) L 08/01/18 06:15 MCHC 31.1 g/dl (32.0-35.9) L 08/01/18 06:15 RDW 18.2 % (11.9-15.9) H 08/01/18 06:15 Plt Count 270 K/MM3 (134-434) 08/01/18 06:15 MPV 8.6 fl (7.5-11.1) 08/01/18 06:15 CMP Sodium 144 mmol/L (136-145) 08/02/18 07:00 Potassium 4.2 mmol/L (3.5-5.1) 08/02/18 07:00 Chloride 113 mmol/L (98-107) H 08/02/18 07:00 Carbon Dioxide 21 mmol/L (21-32) 08/02/18 07:00 Anion Gap 10 MMOL/L (8-16) 08/02/18 07:00 BUN 51 mg/dL (7-18) H 08/02/18 07:00 Creatinine 3.6 mg/dL (0.55-1.3) H 08/02/18 07:00 Creat Clearance w eGFR 17.63 (>60) 08/02/18 07:00 Random Glucose 94 mg/dL (74-106) 08/02/18 07:00 Calcium 8.0 mg/dL (8.5-10.1) L 08/02/18 07:00 Total Bilirubin 0.2 mg/dL (0.2-1) 08/01/18 06:15 AST 17 U/L (15-37) 08/01/18 06:15 ALT 22 U/L (13-61) 08/01/18 06:15 Alkaline Phosphatase 110 U/L (45-117) 08/01/18 06:15 Total Protein 6.7 g/dl (6.4-8.2) 08/01/18 06:15 Albumin 2.4 g/dl (3.4-5.0) L 08/01/18 06:15 CARDIAC ENZYMES Creatine Kinase 189 IU/L (26-308) 07/24/18 05:03 Troponin I 0.07 ng/ml (0.00-0.05) H 07/24/18 12:14 Home Medications Medication Instructions Recorded Aripiprazole [Abilify] 10 mg PO DAILY 04/24/17 Atorvastatin Ca [Lipitor] 40 mg PO HS 04/24/17 Carvedilol 1 tab PO BID 07/25/18 Albuterol 0.083% Nebulizer Jaclyn 1 amp NEB Q4H PRN #1 amp 08/02/18 [Ventolin 0.083% Nebulizer Soln -] Carvedilol [Coreg -] 25 mg PO BID #60 tablet 08/02/18 Nifedipine ER [Procardia Xl -] 60 mg PO DAILY #30 tab.er.24 08/02/18 hydrALAZINE HCL [Apresoline -] 100 mg PO TID #90 tablet 08/02/18 ASSESSMENT AND PLAN: Patient is a 58 y/o man with h/o MOLLY, not on CPAP, gout, diastolic CHF, CKD, HTN , morbid obesity , bipolar, depression, non compliance and recent admission fro HTN and YOCASTA who presented with SOB and was found to have acute respiratory failure due to HTN emergency. # HTN emergency : BP better controlled today will continue coreg, HZN, added Procardia xl 60mg and dc Norvasc. DISCHARGE PATIENT HOME, SINCE DOES NOT WNAT TO HAVE bX OF THE KIDNEYS, SUGGESTED TO FOLLOW WITH [facility]. # Elevated trop: due to demand ischemia due to HTN emergency. # YOCASTA on CKD: with nephrotic range proteinuria. creatinine is 4.0-->3.8-->3.8--> 4.0-->3.8-->3.6 today , continue to hold lasix and further management per Nephro. continue to monitor. Renal Bx will be offered as inpatient. Kidney function is improving but not back to baseline, patient needs bx but refusing. WAS SUGGESTED TO DRINK 2 LITER OF WATER PER DAY. # QTc prolonged , avoid any Qtc prolonging agents # Acute diastolic CHF: improved but renal function worsening , continue to hold lasix. # Bipolar and depression : cont Abilify and f/u with psych at dc. DVT Px : heparin sq patient refusing biopsy. will discuss with nephrology
== END 2018-08-02 12:48 | disposition home or self-care (01) | DRG 189 ==
LOC: JER 01:47 → JERBED 02:32 → J4W 07-25 16:16 → J8W 07-27 16:41
PROVIDERS: ADMIT Internal Medicine; ATTEND Internal Medicine
PROC: 5A09357 Assistance with Respiratory Ventilation, Less than 24 Consecutive Hours, Continuous Positive Airway Pressure (ICD-10-PCS; principal; 2018-07-24)
DX: J96.01 Acute respiratory failure with hypoxia (principal); I50.31 Acute diastolic (congestive) heart failure; I16.1 Hypertensive emergency; N17.9 Acute kidney failure, unspecified; Z68.42 Body mass index [BMI] 45.0-49.9, adult; E87.0 Hyperosmolality and hypernatremia; I24.8 Other forms of acute ischemic heart disease; N18.5 Chronic kidney disease, stage 5; I13.0 Hypertensive heart and chronic kidney disease with heart failure and stage 1 through stage 4 chronic kidney disease, or unspecified chronic kidney disease; R00.0 Tachycardia, unspecified; E66.01 Morbid (severe) obesity due to excess calories; I12.9 Hypertensive chronic kidney disease with stage 1 through stage 4 chronic kidney disease, or unspecified chronic kidney disease; F32.9 Major depressive disorder, single episode, unspecified; M10.9 Gout, unspecified; G47.33 Obstructive sleep apnea (adult) (pediatric); I45.81 Long QT syndrome; R06.00 Dyspnea, unspecified; Z91.14 Patient's other noncompliance with medication regimen
CPT/HCPCS: 36415; 36600; 71045-TC-FY; 76775-TC; 80048; 80053; 82375; 82436; 82550; 82553; 82570; 82803; 82962; 83050; 83735; 83880; 84100; 84133; 84156; 84300; 84484; 84540; 85025; 85610; 85651; 86140; 87040; 87804; 93005; 93010; 94640; 94660; 97116-GP; 97162-GP; 99285-25; J1644

== ENCOUNTER 2018-11-16 18:01 | Inpatient (IN) | payer OTHER ==
[2018-11-16] MEDS ORDERED: NITROGLYCERIN 2% OINTMENT - 1GM PACKET TD ONE ×2 (19:07→19:11)
[2018-11-16] MEDS ORDERED: VANCOMYCIN 1 GM in D5W (PRE-DOCKED) 1,000 MG/250 ML IVPB ONE (19:08)
[2018-11-16] MEDS ORDERED: PIPERACILLIN/TAZOB 4.5 GM 4.5 GM in DEXTROSE 5%-WATER 100 ML IVPB ONE (19:08)
[2018-11-16] MEDS ORDERED: ACETAMINOPHEN INJECTION 100 ML IVPB ONE ×2 (19:11→19:28)
[2018-11-16 19:36] LABS: BASO % 0.4 % (0-2.0); HEMATOCRIT 25.9 % (35.4-49); HEMOGLOBIN 8.4 GM/dL (11.7-16.9); LYMPH % 4.7 % (8-40); MCHC 32.4 g/dl (32.0-35.9); MEAN CELL VOLUME 74.2 fl (80-96); MEAN PLT VOLUME 9.4 fl (7.5-11.1); MONO % 9.1 % (3.8-10.2); NEUT % 84.8 % (42.8-82.8); RBC 3.49 M/mm3 (4.00-5.60); RDW 21.3 % (11.9-15.9); WHITE BLOOD COUNT 12.8 K/mm3 (4.0-10.0)
[2018-11-16] MEDS ORDERED: VANCOMYCIN 1 GRAM (PRE-DOCKED) 1,000 MG/250 ML BAG IVPB ONE (19:38)
[2018-11-16] MEDS ORDERED: PIPERACILLIN/TAZOB 4.5 GM 4.5 GM/100 ML BAG IVPB ONE (19:38)
[2018-11-16 19:45] LABS: VENOUS PC02 34.5 mmHg (38-52); VENOUS PH 7.38 (7.32-7.42); VENOUS PO2 53.1 mmHg (28-48)
[2018-11-16 19:48] LABS: INR 1.24 (0.83-1.09); PROTHROMBIN TIME (PATIENT) 14.7 SEC (9.7-13.0)
[2018-11-16 19:51] LABS: ACTIVATED PTT 18.6 SECONDS (25.2-36.5)
[2018-11-16 19:58] LABS: ANISOCYTOSIS 2+; PLATELET COUNT 176 K/MM3 (134-434); PLATELET ESTIMATE ADEQUATE; TARGET CELLS 1+
[2018-11-16 20:12] LABS: ALBUMIN 2.2 g/dl (3.4-5.0); ALK PHOS 135 U/L (45-117); ANION GAP 10 MMOL/L (8-16); BILIRUBIN,TOTAL 0.4 mg/dL (0.2-1); BLOOD UREA NITROGEN 42 mg/dL (7-18); CHLORIDE 109 mmol/L (98-107); CO2 21 mmol/L (21-32); CREATININE 4.3 mg/dL (0.55-1.3); GLUCOSE,RANDOM 159 mg/dL (74-106); POTASSIUM 3.7 mmol/L (3.5-5.1); SGOT/AST 29 U/L (15-37); SGPT/ALT 28 U/L (13-61); SODIUM 140 mmol/L (136-145); TOT PROT 6.6 g/dl (6.4-8.2)
[2018-11-16] MEDS ORDERED: ASPIRIN 325 MG TABLET PO ONE (20:12)
--- NOTE | 2018-11-16 20:14 | PDOC ---
Attending Attestation - HPI HPI: 11/16/18 21:07 The patient is a 58 year old male, with a significant past medical history of past psychiatric (non compliant with medication), CHF, HTN, DM, Gout, and CKD who presents to the emergency department with 3 days of shortness of breath and chest pain. The patient notes his symptoms are associated with a productive cough and fever. The patient denies headache or dizziness. The patient denies chills, nausea, vomit, diarrhea or constipation. The patient denies dysuria, frequency, urgency or hematuria. Allergies: NKDA Past surgical history: None reported Social history: No past or present use of tobacco, alcohol or recreational drug use. PCP: Dr [facility] - Physicial Exam PE: 11/16/18 21:08 GENERAL: (+) obese. Awake, alert, and fully oriented, in no acute distress HEAD: No signs of trauma EYES: PERRLA, EOMI, sclera anicteric, conjunctiva clear ENT: Auricles normal inspection, hearing grossly normal, nares patent, oropharynx clear without exudates. Moist mucosa NECK: Normal ROM, supple, no lymphadenopathy, JVD, or masses LUNGS: (+) Rails, bronchi on left diminished on right. No wheezes, and no crackles HEART: (+) tachycardic. (+) tepric (+) hypertensive. no murmurs, rubs or gallops ABDOMEN: Soft, nontender, normoactive bowel sounds. No guarding, no rebound. No masses EXTREMITIES: (+) trace edema on ankles. Normal range of motion. No clubbing or cyanosis. No cords, erythema, or tenderness NEUROLOGICAL: Cranial nerves II through XII grossly intact. Normal speech, normal gait SKIN: Warm, Dry, normal turgor, no rashes or lesions noted. <Marin Jones - Last Filed: 11/16/18 21:07> - Resident Resident Name: Froy Santos - ED Attending Attestation I have performed the following: I have examined & evaluated the patient, The case was reviewed & discussed with the resident, I agree w/resident's findings & plan, Exceptions are as noted - Critical Care Time Total Critical Care Time: 45 Critical Care Statement: The care of this patient involved high complexity decision making to prevent further life threatening deterioration of the patient 's condition and/or to evaluate & treat vital organ system(s) failure or risk of failure. - Medical Decision Making 11/16/18 20:14 I, Dr. Yary Sadler, DO, attest that this document has been prepared under my direction and personally reviewed by me in its entirety. I further attest, that it accurately reflects all work, treatment, procedures and medical decision -making performed by me. 11/16/18 22:58 a/p: 58yo male with sob, cough, congestion, fever, hypertensive emergency -pt sob x days -noncompliant with meds -has not taken meds in days -hx dm, psych hx, htn, hld -pt arrives hypertensive with pulmonary edema on exam -bedside ultrasound shows b lines in upper and lower lung dixon on R side -pt placed on bipap upon arrival for resp distress, nitropaste applied to the chest -pt febrile- concern for pna vs flu as well as pulm edema -cxr, labs, cultures ordered -trop ordered -no LE edema -will need admission 11/16/18 23:00 bp improved on nitro tachycardia improved after tylenol pt feeling better on bipap 11/16/18 23:00 cxr shows mild congestion 11/16/18 23:00 ckd chronic anemia elevated wbc, broad spectrum abx ordered mildly elevated trop suspect from hypertensive emergency- pt will need admission resident discussed the case with cardiology- dr. Cole who agrees with the plan asa given no heparin at this time manage bp 11/16/18 23:32 case discussed with [facility] resident who accepts pt to service <Yayr Sadler - Last Filed: 11/16/18 23:33> *DC/Admit/Observation/Transfer <Marin Jones - Last Filed: 11/16/18 21:07> - Discharge Dispostion Decision to Admit order: Yes <Yary Sadler - Last Filed: 11/16/18 23:33> Diagnosis at time of Disposition: Hypertensive emergency, Elevated troponin, CKD (chronic kidney disease), Morbid (severe) obesity due to excess calories - Discharge Dispostion Condition at time of disposition: Guarded Heart Score/ECG Review - ECG Intrepretation Comment:: 11/16/18 23:03 sinus tach at 143, nl axis, nl interval, no acute st/t wave findings <Yary Sadler - Last Filed: 11/16/18 23:33> Attestations - Attestations 11/16/18 21:10 Documentation prepared by Marin Jones, acting as medical claims representative for Yary Sadler DO, MD <Marin Jones - Last Filed: 11/16/18 21:07>
[2018-11-16] MEDS ORDERED: ASPIRIN 325 MG TABLET ONE (20:37)
--- NOTE | 2018-11-16 22:45 | PDOC ---
History of Present Illness - General Chief Complaint: Shortness of Breath Stated Complaint: DIFFICULTY BREATHING Time Seen by Provider: 11/16/18 18:56 History Source: Patient Exam Limitations: No Limitations - History of Present Illness Initial Comments: 11/16/18 22:37 Patient is a 58M with history of CHF, multiple psychiatric diagnoses, CHF and arthritis coming in complaining of two days gradual worsening of shortness of breath. Endorses associated mid-sternal chest pain. Patient endorses fevers as well. Patient states that he stopped taking all of his medications because of frustrations with his arthritis. Denies nausea, vomiting, abdominal pain. Denies headache, neck pain. Denies leg swelling. Denies sick contacts. Past History - Past Medical History Allergies/Adverse Reactions: Allergies Allergy/AdvReac Type Severity Reaction Status Date / Time No Known Allergies Allergy Verified 07/24/18 01:15 EST Home Medications: Ambulatory Orders Aripiprazole [Abilify] 10 mg PO DAILY 04/24/17 Atorvastatin Ca [Lipitor] 40 mg PO HS 04/24/17 Carvedilol 1 tab PO BID 07/25/18 Albuterol 0.083% Nebulizer Jaclyn [Ventolin 0.083% Nebulizer Soln -] 1 amp NEB Q4H PRN #1 amp 08/02/18 Carvedilol [Coreg -] 25 mg PO BID #60 tablet 08/02/18 Nifedipine ER [Procardia Xl -] 60 mg PO DAILY #30 tab.er.24 08/02/18 hydrALAZINE HCL [Apresoline -] 100 mg PO TID #90 tablet 08/02/18 Anemia: No Cardiac Disorders: Yes (chf) COPD: No CHF: Yes Diabetes: Yes (borderline) HTN: Yes Psychiatric Problems: Yes (bipolar) - Immunization History Immunization Up to Date: Yes - Suicide/Smoking/Psychosocial Hx Smoking History: Unknown if ever smoked Have you smoked in the past 12 months: No Number of Cigarettes Smoked Daily: 0 Information on smoking cessation initiated: No Hx Alcohol Use: No Drug/Substance Use Hx: No Substance Use Type: None Hx Substance Use Treatment: No Review of Systems - Review of Systems Comments:: 11/16/18 22:40 GENERAL/CONSTITUTIONAL: +fever no chills. No weakness. HEAD, EYES, EARS, NOSE AND THROAT: No change in vision. No sore throat. CARDIOVASCULAR: +chest pain +shortness of breath RESPIRATORY: +cough, no wheezing, or hemoptysis. GASTROINTESTINAL: No nausea, vomiting, diarrhea or constipation. GENITOURINARY: No dysuria, frequency, or change in urination. MUSCULOSKELETAL: No joint or muscle swelling or pain. No neck or back pain. SKIN: No rash NEUROLOGIC: No headache, vertigo, loss of consciousness, or change in strength/ sensation. ENDOCRINE: No increased thirst. No abnormal weight change HEMATOLOGIC/LYMPHATIC: No anemia, easy bleeding, or history of blood clots. ALLERGIC/IMMUNOLOGIC: No hives or skin allergy. *Physical Exam - Vital Signs Last Vital Signs Temp Pulse Resp BP Pulse Ox 101.2 F H 140 H 18 145/107 H 98 11/16/18 18:27 11/16/18 18:27 11/16/18 20:23 11/16/18 20:23 11/16/18 20:23 - Physical Exam Comments: 11/16/18 22:41 GENERAL: Awake, alert, and fully oriented, sitting upright, in acute respiratory distress HEAD: No signs of trauma, normocephalic, atraumatic EYES: PERRLA, EOMI, sclera anicteric, conjunctiva clear ENT: Auricles normal inspection, hearing grossly normal, nares patent, oropharynx clear without exudates. Moist mucosa NECK: Normal ROM, supple, no lymphadenopathy, JVD, or masses LUNGS: Tachypneic, coarse lung sounds bilaterally, using accessory muscles. HEART: Tachycardic, distal pulses equal bilaterally ABDOMEN: Soft, nontender, normoactive bowel sounds. No guarding, no rebound. No masses EXTREMITIES: Normal inspection, Normal range of motion, no edema. No clubbing or cyanosis. NEUROLOGICAL: Cranial nerves II through XII grossly intact. Normal speech, no focal sensorimotor deficits SKIN: Warm, Dry, normal turgor, no rashes or lesions noted. Moderate Sedation - Procedure Monitoring Vital Signs: Procedure Monitoring Vital Signs Temperature 101.2 F H 11/16/18 18: Pulse Rate 140 H 11/16/18 18: Respiratory Rate 18 11/16/18 20:23 Blood Pressure 145/107 H 11/16/18 20:23 O2 Sat by Pulse Oximetry (%) 98 11/16/18 20:23 ED Treatment Course - LABORATORY CBC & Chemistry Diagram: 11/16/18 19:09 11/16/18 19:09 - ADDITIONAL ORDERS Additional order review: Laboratory Results 11/16/18 11/16/18 11/16/18 19:09 19:09 19:09 PT with INR INR PTT (Actin FS) VBG pH POC VBG pCO2 POC VBG pO2 Mixed VBG HCO3 Sodium 140 Potassium 3.7 Chloride 109 H Carbon Dioxide 21 Anion Gap 10 BUN 42 H Creatinine 4.3 H Creat Clearance w eGFR 14.36 POC Glucometer Random Glucose 159 H Lactic Acid 1.4 Calcium 7.0 L Total Bilirubin 0.4 AST 29 ALT 28 Alkaline Phosphatase 135 H Troponin I 0.30 H Total Protein 6.6 Albumin 2.2 L 11/16/18 11/16/18 11/16/18 19:09 19:09 18:25 PT with INR 14.70 H INR 1.24 H PTT (Actin FS) 18.6 L VBG pH 7.38 POC VBG pCO2 34.5 L POC VBG pO2 53.1 H Mixed VBG HCO3 19.8 Sodium Potassium Chloride Carbon Dioxide Anion Gap BUN Creatinine Creat Clearance w eGFR POC Glucometer 175 Random Glucose Lactic Acid Calcium Total Bilirubin AST ALT Alkaline Phosphatase Troponin I Total Protein Albumin 11/16/18 11/16/18 19:09 18:25 RBC 3.49 L MCV 74.2 L MCHC 32.4 RDW 21.3 H MPV 9.4 Neutrophils % 84.8 H Lymphocytes % 4.7 L D Monocytes % 9.1 Eosinophils % 1.0 Basophils % 0.4 POC Glucometer 175 - RADIOLOGY Radiology Studies Ordered: Category Date Time Status CHEST X-RAY PORTABLE* [RAD] Stat Radiology 11/16/18 19:06 Taken - Medications Given in the ED: ED Medications Discontinued Medications Generic Name Dose Route Start Last Admin Trade Name Freq PRN Reason Stop Dose Admin Aspirin 325 mg 11/16/18 20:12 11/16/18 20:36 Asa - PO 11/16/18 20:13 325 mg ONCE ONE Administration Piperacillin Sod/Tazobactam 100 mls @ 200 mls/hr 11/16/18 19:08 11/16/18 19: 44 Sod 4.5 gm/ Dextrose IVPB 11/16/18 19:37 200 mls/hr ONCE ONE Administration Protocol Nitroglycerin 1 inch 11/16/18 19:07 11/16/18 19:33 Nitro-Bid 2% Paste - TD 11/16/18 19:08 1 inch ONCE ONE Administration Vancomycin HCl 1,000 mg 11/16/18 19:08 11/16/18 20:12 Vancomycin (Pre-Docked) IVPB 11/16/18 19:09 1,000 mg ONCE ONE Administration Protocol Medical Decision Making - Medical Decision Making 11/16/18 22:42 Patient is 58M with history of CHF, multiple psych diagnosis, arthritis, HTN here today in respiratory distress. Vitals notable for tachycardia, tachypnea, fever. Septic workup initiated, vanc/zosyn and tylenol given. Suspect APE, pneumonia mixed picture. Will treat with nitro paste. Bipap started. Patient re-evaluated, bps and hr stabilized, improved. CBC shows leukocytosis. CMP shows Cr of 4.3, patient has steady rising baseline , but this is worse than prior visits. K normal. Lactic acid normal. Trop elevated to 0.30. Aspirin given, likely related to demand and kidney function. Dr Cole consulted, no heparin at this time. Will admit to tele. *DC/Admit/Observation/Transfer Diagnosis at time of Disposition: Hypertensive emergency - Discharge Dispostion Condition at time of disposition: Stable Decision to Admit order: Yes - Referrals - Patient Instructions - Post Discharge Activity
[2018-11-17] MEDS ORDERED: FUROSEMIDE 40 MG/4 ML INJECTABLE VIAL IVPUSH ONE (00:46)
--- NOTE | 2018-11-17 00:58 | HP ---
CHIEF COMPLAINT: shortness of breath and chest pain PCP: none HISTORY OF PRESENT ILLNESS: 58M w/ pmhx of diastolic CHF, bipolar disorder, depression/anxiety, arthritis, NIDDM, HTN, HLD, gout, CKD stage 4 presented with acute shortness of breath that started about 2 days ago. He states it started while he was on his way to the bathroom. It is worsened when walking and he also admits to orthopnea, needing to use 3 pillows at night. He also complains of R-sided chest pain that is associated with his sob. It is rated 7/10, and is pressure-like that lasts for at least 30 min, intermittent throughout the day with radiation to the back. Pt states he has had this chest pain before in the past, but has not followed up with a horseshoer outpatient. Of note, he was recently seen this past July 2018, for similar symptoms. He also complains He states he hasn't taken his meds for the past 2 weeks because he feels depressed due to his severe arthritis. He currently lives at home alone, and his family all live in [place]. 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[employer]) Family History: HTN Allergies No Known Allergies Allergy (Verified 07/24/18 01:15 EST) HOME MEDICATIONS: Home Medications Medication Instructions Recorded Aripiprazole [Abilify] 10 mg PO DAILY 04/24/17 Atorvastatin Ca [Lipitor] 40 mg PO HS 04/24/17 Carvedilol 1 tab PO BID 07/25/18 Albuterol 0.083% Nebulizer Jaclyn 1 amp NEB Q4H PRN #1 amp 08/02/18 [Ventolin 0.083% Nebulizer Soln -] Carvedilol [Coreg -] 25 mg PO BID #60 tablet 08/02/18 Nifedipine ER [Procardia Xl -] 60 mg PO DAILY #30 tab.er.24 08/02/18 hydrALAZINE HCL [Apresoline -] 100 mg PO TID #90 tablet 08/02/18 REVIEW OF SYSTEMS CONSTITUTIONAL: +fever, weight gain Absent: chills, diaphoresis, generalized weakness, malaise, loss of appetite HEENT: Absent: rhinorrhea, nasal congestion, throat pain, throat swelling, difficulty swallowing CARDIOVASCULAR: +chest pain, lightheadedness, leg swelling Absent: chest pain, syncope, palpitations, irregular heart rate RESPIRATORY: +cough, with white productive sputum, rubio, orthopnea Absent: wheezing, stridor, hemoptysis GASTROINTESTINAL: +epigastric pain Absent: abdominal distension, nausea, vomiting, diarrhea, constipation, melena, hematochezia GENITOURINARY: +urinary frequency Absent: dysuria, urgency, hesitancy, hematuria, flank pain, genital pain MUSCULOSKELETAL: +back pain, R sided neck pain Absent: myalgia, arthralgia, joint swelling, back pain, neck pain NEUROLOGIC: Absent: headache, focal weakness or paresthesias, dizziness, unsteady gait, seizure, mental status changes, bladder or bowel incontinence PSYCHIATRIC: +anxiety, depression Absent: suicidal or homicidal ideation, hallucinations. PHYSICAL EXAMINATION Vital Signs - 24 hr 11/16/18 11/16/18 11/16/18 18:27 19:15 20:19 Temperature 101.2 F H Pulse Rate 140 H Respiratory 30 H Rate Blood Pressure 202/136 H Blood Pressure [Left Arm] O2 Sat by Pulse 93 L 100 99 Oximetry (%) 11/16/18 20:23 Temperature Pulse Rate Respiratory 18 Rate Blood Pressure Blood Pressure 145/107 H [Left Arm] O2 Sat by Pulse 98 Oximetry (%) GENERAL: Awake, alert, and fully oriented, in no acute distress. Currently on BiPAP. Cooperative. HEENT: AT/NC. EOMI, MARCELO. Moist mucus membranes. NECK: Normal range of motion, supple without lymphadenopathy. No JVD noted. LUNGS: Inspiratory wheezes heard b/l. Symmetric chest rise. BiPAP satting at 100 %. No respiratory muscle use noted. Speaks in complete sentences. HEART: RRR. Normal S1, S2. No murmurs noted. ABDOMEN: Obese. Soft, NT/ND. normactive bs UPPER EXTREMITIES: 2+ b/l radial pulses, warm, well-perfused. No peripheral edema. LOWER EXTREMITIES: 2+ b/l dorsalis pedis pulses, warm, well-perfused. No calf tenderness. NEUROLOGICAL: Cranial nerves II-XII intact. Normal speech. PSYCHIATRIC: Cooperative. Good eye contact. Appropriate mood and affect. SKIN: Warm, dry, normal turgor, no rashes or lesions noted, normal capillary refill. Laboratory Results - last 24 hr 11/16/18 11/16/18 11/16/18 18:25 19:09 19:09 WBC 12.8 H RBC 3.49 L Hgb 8.4 L Hct 25.9 L MCV 74.2 L MCH 24.0 L MCHC 32.4 RDW 21.3 H Plt Count 176 D MPV 9.4 Absolute Neuts (auto) 10.9 H Neutrophils % 84.8 H Lymphocytes % 4.7 L D Monocytes % 9.1 Eosinophils % 1.0 Basophils % 0.4 Nucleated RBC % 0 Hypochromia 1+ Platelet Estimate Adequate Platelet Comment No clumping noted Polychromasia 1+ Anisocytosis 2+ Microcytosis 1+ Target Cells 1+ PT with INR 14.70 H INR 1.24 H PTT (Actin FS) 18.6 L VBG pH POC VBG pCO2 POC VBG pO2 Mixed VBG HCO3 Sodium Potassium Chloride Carbon Dioxide Anion Gap BUN Creatinine Creat Clearance w eGFR POC Glucometer 175 Random Glucose Lactic Acid Calcium Total Bilirubin AST ALT Alkaline Phosphatase Troponin I Total Protein Albumin Influenza A (Rapid) Influenza B (Rapid) 11/16/18 11/16/18 11/16/18 19:09 19:09 19:09 WBC RBC Hgb Hct MCV MCH MCHC RDW Plt Count MPV Absolute Neuts (auto) Neutrophils % Lymphocytes % Monocytes % Eosinophils % Basophils % Nucleated RBC % Hypochromia Platelet Estimate Platelet Comment Polychromasia Anisocytosis Microcytosis Target Cells PT with INR INR PTT (Actin FS) VBG pH 7.38 POC VBG pCO2 34.5 L POC VBG pO2 53.1 H Mixed VBG HCO3 19.8 Sodium 140 Potassium 3.7 Chloride 109 H Carbon Dioxide 21 Anion Gap 10 BUN 42 H Creatinine 4.3 H Creat Clearance w eGFR 14.36 POC Glucometer Random Glucose 159 H Lactic Acid 1.4 Calcium 7.0 L Total Bilirubin 0.4 AST 29 ALT 28 Alkaline Phosphatase 135 H Troponin I Total Protein 6.6 Albumin 2.2 L Influenza A (Rapid) Influenza B (Rapid) 11/16/18 11/16/18 19:09 20:20 WBC RBC Hgb Hct MCV MCH MCHC RDW Plt Count MPV Absolute Neuts (auto) Neutrophils % Lymphocytes % Monocytes % Eosinophils % Basophils % Nucleated RBC % Hypochromia Platelet Estimate Platelet Comment Polychromasia Anisocytosis Microcytosis Target Cells PT with INR INR PTT (Actin FS) VBG pH POC VBG pCO2 POC VBG pO2 Mixed VBG HCO3 Sodium Potassium Chloride Carbon Dioxide Anion Gap BUN Creatinine Creat Clearance w eGFR POC Glucometer Random Glucose Lactic Acid Calcium Total Bilirubin AST ALT Alkaline Phosphatase Troponin I 0.30 H Total Protein Albumin Influenza A (Rapid) Negative Influenza B (Rapid) Negative CONSULT: Cardio- Dr. Cole Nephro- Dr. Raphael IMAGING: * CXR: cardiomegaly, pulmonary congestion and RLL infiltrate (our read) * EKG: Sinus tachy, HR 143, QTc 432 ms, nonspecific ST-T wave changes * CT Chest (Initial read): Patchy b/l upper lobe and and lower lobe infiltrates. Cardiomegaly w/ small pericardial effusion. Anterior bridging osteophytes within thoracic spine at multiple levels suggestive of idiopathic skeletal hyperostosis. Previous Imaging: -CXR (07/24): Since 06/17/2018, there are new congestive changes with chin artifact and prominent mediastinum. -CXR (07/26): Worse. Progressive pulmonary and pleural changes since 07/24/2018. -CXR (07/31): A single AP view the chest reveals a widened mediastinum, apical lordotic projection and some congestive findings. There is an elevated right hemidiaphragm. There are degenerative changes. Correlation recommended. -Kidney/Renal US: Echogenic kidneys consistent with chronic medical renal disease. No evidence of hydronephrosis or acute pathology. ASSESSMENT/PLAN: 58M w/ pmhx of diastolic CHF, bipolar disorder, depression/anxiety, arthritis, NIDDM, HTN, HLD, gout presented with acute shortness of breath admitted for hypertensive urgency. #Hypertensive Emergency; with flash pulmonary edema in setting of medication noncompliance -His non-compliance with medications combined with his inability to diurese due to CKD are likely factors contributing to HTN w/ flash pulmonary edema Cont home meds: Carvedilol 25 BID, Hydralazine 100 TID, Nifedipine 60 QD #Shortness of breath; could be 2/2 fluid overload in setting of CKD vs. PNA -IV Vanc and Zosyn given x1 in ED as pt was febrile and had WBC 12.8; treated empirically for HAP -Cont with Ceftriaxone 1g IVPB QD, given Azithromycin 500 mg IVPB once, then 250 mg after QD -Rapid flu neg -Sputum cx, Urine Legionella/S. Pnemo ordered -Cont BiPAP #Elevated troponins; may be due to -Initial trop 0.3, will order repeat -EKG showed non-specific ST-T changes -Cardio was contacted by ED staff, recommended to give ASA, treat BP, no indication for heparin at this time #CKD; Cr 4.3 (increased from 3.6 on 08/02/18). Unclear etiology -Nephro consult -Avoid nephrotoxic drugs #Anemia; H/H 8.4/25.9 -May likely be due to CKD -Fe/TIBC, Transferrin, Ferritin ordered #Depression -Pt has been noncompliant with medications because of depression and severe arthritis. His symptoms likely related to medication non-compliance. -Consider psych consult as pt states he is non-compliant with his meds due to his depression Cont home med: Abilify 10 QD #NIDDM; last A1c 5.9 (06/16/18) -Pt states he is on DM meds, however, it is not seen on his meds from last discharge. Confirm with pharmacy pt's meds -BGM/ISS ACHS #Prophylaxis -SQH #FEN -PO hydration -recheck lytes in AM -Sodium-controlled diet dispo -admit to tele inpt -full code Visit type - Emergency Visit Emergency Visit: Yes ED Registration Date: 11/16/18 Care time: The patient presented to the Emergency Department on the above date and was hospitalized for further evaluation of their emergent condition. - New Patient This patient is new to me today: Yes Date on this admission: 11/18/18 - Critical Care Critical Care patient: No
[2018-11-17 02:09] LABS: N-TERMINAL BNP 4597.3 pg/ml (5-125)
--- NOTE | 2018-11-17 02:49 | PN ---
Teaching Attending Note Name of Resident: Silvia Fried ATTENDING PHYSICIAN STATEMENT I saw and evaluated the patient. I reviewed the resident's note and discussed the case with the resident. I agree with the resident's findings and plan as documented. SUBJECTIVE: Patient is a 58 year old man with PMH of ??diastolic CHF, bipolar disorder, depression/anxiety, arthritis, NIDDM, HTN, HLD, gout and stage 4 CKD who presents with acute shortness of breath that started about 2 days ago. He states it started while he was on his way to the bathroom. It is worsened when walking and he also admits to orthopnea, needing to use 3 pillows at night. He also complains of R-sided chest pain that is associated with his SOB. It is rated 7/10, and is pressure-like that lasts for at least 30 min, intermittent throughout the day with radiation to the back. He has had this chest pain before in the past, but has not followed up with a hospital administrative assistant outpatient. Of note, he was recently seen this past July 2018, for similar symptoms. He has cough productive of clear sputum. Has had fever, but denies chills, headache , vomiting, nausea, photophobia, dizziness, change in bowel habit or dysuria. He never smoked and does not use any illicit drugs. 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 Says he hasn't taken his medications for the past 2 weeks because he feels depressed due to his severe arthritis. He currently lives at home alone, and all his family live in [place]. On arrival in the ER his BP was 202/136, he got nitropaste and BP improved. OBJECTIVE: Alert, obese and on Bipap Vital Signs Period Temp Pulse Resp BP Sys/Castillo Pulse Ox Last 24 Hr 101.2 F 140 18-30 145-202/107-136 93-100 HEENT: No Jaundice, eye redness or discharge, PERRLA, EOMI. Normocephalic, atraumatic. External ears are normal and hearing is grossly intact. No nasal discharge. Neck: Supple, nontender. No palpable adenopathy or thyromegaly. No JVD Chest: Good effort. Diminished breath sounds and rhonchi in both lung bases; upper zone wheezing on the back. No rales. Clear to percussion. Heart: Sinus tachycardia. No S3, rub or murmur Abdomen: Not distended, soft, nontender and no HSM. No rebound or guarding. Normoactive bowel sounds. Ext: Peripheral pulses intact. No leg edema. Skin: Warm and dry. No petechiae, rash or ecchymosis. Neuro: Alert. Oriented x3. CN 2-12 grossly intact. Sensation grossly intact in all four extremities and DTR are symmetric. Psych: Sad mood. Appropriate affect; poor insight. Denies suicidal or homicidal ideation. Current Medications Generic Name Dose Route Start Last Admin Trade Name Freq PRN Reason Stop Dose Admin Heparin Sodium (Porcine) 5,000 unit 11/17/18 06:00 Heparin - SQ TID [facility] Home Medications Medication Instructions Recorded Aripiprazole [Abilify] 10 mg PO DAILY 04/24/17 Atorvastatin Ca [Lipitor] 40 mg PO HS 04/24/17 Carvedilol 1 tab PO BID 07/25/18 Albuterol 0.083% Nebulizer Jaclyn 1 amp NEB Q4H PRN #1 amp 08/02/18 [Ventolin 0.083% Nebulizer Soln -] Carvedilol [Coreg -] 25 mg PO BID #60 tablet 08/02/18 Nifedipine ER [Procardia Xl -] 60 mg PO DAILY #30 tab.er.24 08/02/18 hydrALAZINE HCL [Apresoline -] 100 mg PO TID #90 tablet 08/02/18 Abnormal Lab Results 11/16/18 11/16/18 11/16/18 19:09 19:09 19:09 WBC 12.8 H RBC 3.49 L Hgb 8.4 L Hct 25.9 L MCV 74.2 L MCH 24.0 L RDW 21.3 H Absolute Neuts (auto) 10.9 H Neutrophils % 84.8 H Lymphocytes % 4.7 L D PT with INR 14.70 H INR 1.24 H PTT (Actin FS) 18.6 L POC VBG pCO2 34.5 L POC VBG pO2 53.1 H Chloride BUN Creatinine Random Glucose Calcium Alkaline Phosphatase Troponin I B-Natriuretic Peptide Albumin 11/16/18 11/16/18 19:09 19:09 WBC RBC Hgb Hct MCV MCH RDW Absolute Neuts (auto) Neutrophils % Lymphocytes % PT with INR INR PTT (Actin FS) POC VBG pCO2 POC VBG pO2 Chloride 109 H BUN 42 H Creatinine 4.3 H Random Glucose 159 H Calcium 7.0 L Alkaline Phosphatase 135 H Troponin I 0.30 H B-Natriuretic Peptide 4597.3 H Albumin 2.2 L ASSESSMENT AND PLAN: 1. Hypertensive urgency - cardiopulmonary disorder/CKD = CXR shows cardiomegaly , pulmonary congestion and RLL infiltrate. Will get chest CT to confirm pneumonia. EKG shows sinus tachycardia with nonspecific ST-T wave changes and troponin is elevated. Likely had flash pulmonary edema due to severe hypertension, superimposed on CKD-associated fluid overload and exacerbated by pneumonia. May have underlying COPD due to exposure to environmental pollution. May also have obstructive sleep apnea as well as obesity hypoventilation syndrome. Will benefit from outpatient PFT. Will treat with IV Rocephin and azithromycin, solumedrol and inhalational bronchodilators. Admit to telemetry, trend troponin and repeat EKG to rule out ACS. Get ECHO to assess LV function and rule out pericarditis. What is "masquerading" as ?diastolic CHF may indeed be LV strain caused by progressive fluid retention with failing kidneys. Needs adequate diuresis with appropriate doses of lasix. ECHO from 06/17/18 was normal. Continue Bipap and if symptoms persist after all the above interventions, will get a V/Q scan to rule out PE. Consult Pulmonary and cardiology. [place] challenge is ascertaining the relative contributions of pulmonary vs cardiac vs renal disorders to his respiratory compromise - to guide appropriate outpatient management. 2. Depression - Consult psychiatry. 3. Hypoalbuminemia - Possibly due to combined effects of proteinuria, malnutrition and inflammation associated with comorbid chronic conditions. Will ensure adequate dietary protein intake and also consult medication tech. 4. DM For now, we will hold the home diabetes drugs and implement sliding scale insulin regimen. Provide comprehensive diabetes care with patient teaching and counseling about the importance of adherence to prescribed diabetes regimen, euglycemia, eye care and foot care. 5. CKD - Cause unclear. Will consult nephrology and avoid nephrotoxic agents such as NSAIDS, aminoglycosides, contrast dyes and certain Alternative medicine products. 6. Anemia - Likely mainly due to CKD. Do basic anemia work up including serial stool guaiacs, reticulocyte count and iron studies. Would benefit from Procrit therapy once iron replete. 7. Morbid Obesity - Will provide patient all the necessary assistance, counseling and positive reinforcement to facilitate weight loss. Consult medication tech. 8. Hypertension - Restart outpatient antihypertensive drugs and revise regimen to ensure smooth [id number] good BP control. Nonpharmacologic measures to control hypertension like weight loss, salt restriction and exercise discussed. 9. DVT prophylaxis - Heparin 5000u sq tid. 10. Advance directives - Full code
[2018-11-17] MEDS ORDERED: FUROSEMIDE 40 MG/4 ML INJECTABLE VIAL ONE (02:51)
[2018-11-17] MEDS ORDERED: PIPERACILLIN/TAZOB 4.5 GM 4.5 GM in DEXTROSE 5%-WATER 100 ML IVPB SCH (05:15)
[2018-11-17] MEDS ORDERED: AZITHROMYCIN IVPB 500 MG/250 ML BAG IVPB ONE ×2 (05:27→06:49)
[2018-11-17] MEDS ORDERED: CEFTRIAXONE 1 GM in DEXTROSE 5%-WATER - 50 ML IVPB ONE (05:29)
[2018-11-17 06:06] LABS: URINE APPEARANCE CLEAR; URINE BILIRUBIN NEGATIVE (<2.0 mg/dL); URINE COLOR LTYELLOW; URINE GLUCOSE (UA) 1+ (NEGATIVE); URINE KETONE NEGATIVE (NEGATIVE); URINE LEUK ESTERASE NEGATIVE (NEGATIVE); URINE NITRITE NEGATIVE (NEGATIVE); URINE PROTEIN 3+ (NEGATIVE); URINE UROBILINOGEN NEGATIVE mg/dL (0.2-1.0)
[2018-11-17 06:11] LABS: GRANULAR CASTS 17 /lpf; URINE BACTERIA RARE /hpf (NONE SEEN); URINE MUCUS RARE
[2018-11-17 06:29] LABS: BASO % 0.4 % (0-2.0); EOS % 3.4 % (0-4.5); HEMATOCRIT 23.7 % (35.4-49); HEMOGLOBIN 7.6 GM/dL (11.7-16.9); LYMPH % 8.1 % (8-40); MCH 23.7 pg (25.7-33.7); MCHC 32.2 g/dl (32.0-35.9); MEAN CELL VOLUME 73.7 fl (80-96); MEAN PLT VOLUME 9.4 fl (7.5-11.1); MONO % 9.8 % (3.8-10.2); NEUT % 78.3 % (42.8-82.8); PLATELET COUNT 169 K/MM3 (134-434); RBC 3.22 M/mm3 (4.00-5.60); RDW 20.9 % (11.9-15.9); WHITE BLOOD COUNT 10.4 K/mm3 (4.0-10.0)
[2018-11-17] MEDS ORDERED: hydrALAZINE HCL 25 MG TABLET (FP) ONE (06:48)
[2018-11-17] MEDS ORDERED: HEPARIN NA (PORCINE) 5,000 UNITS/ML 1ML VIAL ONE (06:48)
[2018-11-17] MEDS ORDERED: CEFTRIAXONE 1 GM/50 ML BAG ONE (06:49)
[2018-11-17 06:56] LABS: ALLENS TEST POSITIVE
[2018-11-17] MEDS: HEPARIN NA (PORCINE) 5,000 UNITS/ML 1ML VIAL SQ SCH ×3 (06:58→22:19)
[2018-11-17] MEDS: hydrALAZINE HCL 50 MG TABLET (FP) PO SCH ×3 (06:58→22:17)
[2018-11-17 07:01] LABS: ARTERIAL BLD GAS O2 SATURATION 97.8 % (90-98.9); ARTERIAL BLOOD GAS BASE EXCESS -4.4 meq/l (-2-2); ARTERIAL BLOOD GAS PCO2 34.3 mmHg (35-45); ARTERIAL BLOOD GAS pH 7.38 (7.35-7.45)
[2018-11-17 07:12] LABS: ALBUMIN 2.1 g/dl (3.4-5.0); ALK PHOS 121 U/L (45-117); ANION GAP 10 MMOL/L (8-16); BILIRUBIN,TOTAL 0.7 mg/dL (0.2-1); BLOOD UREA NITROGEN 49 mg/dL (7-18); CALCIUM 7.3 mg/dL (8.5-10.1); CHLORIDE 107 mmol/L (98-107); CO2 23 mmol/L (21-32); CREATININE 4.9 mg/dL (0.55-1.3); GLUCOSE,RANDOM 101 mg/dL (74-106); POTASSIUM 3.9 mmol/L (3.5-5.1); SGOT/AST 23 U/L (15-37); SGPT/ALT 28 U/L (13-61); SODIUM 139 mmol/L (136-145); TOT PROT 6.4 g/dl (6.4-8.2)
[2018-11-17] MEDS: INSULIN SLIDING SCALE (NOVOLOG) 1 VIAL SQ SCH ×4 (07:46→22:58)
--- NOTE | 2018-11-17 08:28 | PN ---
Progress Note (short form) - Note Progress Note: currently asymptomatic. states that he was having SOB for several weeks and then developed CP yesterday. last saw his PMD 4 months ago. does not take any medications at home and claims he is not supposed to be taking any medications. denies fever, chills, cough, N/V/C/D or sick contacts Current Medications Generic Name Dose Route Start Last Admin Trade Name Freq PRN Reason Stop Dose Admin Albuterol Sulfate 1 amp 11/17/18 03:39 Ventolin 0.083% Nebulizer Soln - NEB Q4H PRN SHORT OF BREATH/WHEEZING Aripiprazole 10 mg 11/17/18 10:00 Abilify PO DAILY RONALD Atorvastatin Calcium 40 mg 11/17/18 22:00 Lipitor - PO HS RONALD Carvedilol 25 mg 11/17/18 10:00 Coreg - PO BID RONALD Furosemide 40 mg 11/17/18 10:00 Lasix Injection - IVPUSH DAILY [facility] Heparin Sodium (Porcine) 5,000 unit 11/17/18 06:00 11/17/18 06:58 Heparin - SQ 5,000 unit TID RONALD Administration Hydralazine HCl 100 mg 11/17/18 06:00 11/17/18 06:58 Apresoline - PO 100 mg TID RONALD Administration Insulin Aspart 1 vial 11/17/18 07:00 11/17/18 07:46 Novolog Vial Sliding Scale - SQ Not Given ACHS [facility] Protocol Nifedipine 60 mg 11/17/18 10:00 Procardia Xl - PO DAILY [facility] Last Vital Signs Temp Pulse Resp BP Pulse Ox 98 F 130 H 26 H 141/98 100 11/17/18 08:03 11/17/18 08:03 11/17/18 08:03 11/17/18 08:03 11/17/18 08:03 General NAD CV S1 s2 RRR no murmur/rub/gallop Lungs CTA B/L no wheezing/rales/rhonchi Abdomen soft NT/ND obese Extremities no pedal edema CBCD WBC 10.4 K/mm3 (4.0-10.0) H 11/17/18 05:20 RBC 3.22 M/mm3 (4.00-5.60) L 11/17/18 05:20 Hgb 7.6 GM/dL (11.7-16.9) L 11/17/18 05:20 Hct 23.7 % (35.4-49) L 11/17/18 05:20 MCV 73.7 fl (80-96) L 11/17/18 05:20 MCHC 32.2 g/dl (32.0-35.9) 11/17/18 05:20 RDW 20.9 % (11.9-15.9) H 11/17/18 05:20 Plt Count 169 K/MM3 (134-434) 11/17/18 05:20 MPV 9.4 fl (7.5-11.1) 11/17/18 05:20 CMP Sodium 139 mmol/L (136-145) 11/17/18 06:00 Potassium 3.9 mmol/L (3.5-5.1) 11/17/18 06:00 Chloride 107 mmol/L (98-107) 11/17/18 06:00 Carbon Dioxide 23 mmol/L (21-32) 11/17/18 06:00 Anion Gap 10 MMOL/L (8-16) 11/17/18 06:00 BUN 49 mg/dL (7-18) H 11/17/18 06:00 Creatinine 4.9 mg/dL (0.55-1.3) H 11/17/18 06:00 Creat Clearance w eGFR 12.35 (>60) 11/17/18 06:00 Random Glucose 101 mg/dL (74-106) 11/17/18 06:00 Calcium 7.3 mg/dL (8.5-10.1) L 11/17/18 06:00 Total Bilirubin 0.7 mg/dL (0.2-1) 11/17/18 06:00 AST 23 U/L (15-37) 11/17/18 06:00 ALT 28 U/L (13-61) 11/17/18 06:00 Alkaline Phosphatase 121 U/L (45-117) H 11/17/18 06:00 Total Protein 6.4 g/dl (6.4-8.2) 11/17/18 06:00 Albumin 2.1 g/dl (3.4-5.0) L 11/17/18 06:00 CARDIAC ENZYMES Troponin I 0.22 ng/ml (0.00-0.05) H 11/17/18 06:00 A/P 58yo M with PMH diastolic CHF, bipolar, DM, HTN and CKD presented to the ER wtih progressively worsening dyspnea with orthopnea. Pt was found to be having HTN urgency with flash pulmonary edema 1. HTN emergency-with flash pulmonary edema. due to non-compliance. received Hydralazine, IV lasix and nitropaste and has improved, supporting belief of not compliant. will slowly re-start home medications as required. addiction treatment counselor on importance of compliance. 2. Sepsis due to PNA-+ LLL infiltrate on CXR, awaiting official CT chest. Tm 101.2 with tachycardia and leukocytosis. received Ceftriaxone/azithr/zosyn/ Vanco in the ER. will cont ceft/azithro. f/u Cx sent, isak 3. Tropinemia- Trop 0.3 to 0.22 likely due to demand of sepsis and HTN urgency. trending down. will likely require ischemic eval once more stabilized. check echo. cardio consulted 4. Acute on CKD- baseline Cr 3.6-3.8. likely due to sepsis and HTN emergency. also concerned for progression of disease as seems pt is not compliant with medications. nephro consulted 5. Microcytic anemia- no signs of bleeding. check iron studies. no signs of bleeding 6. ACute hypoxic respiratory failure- due to pulm congestion and infection. currently saturating well on bipap. slowly titrate off. 7. DM- check A1c. hold oral agents. iss and bgm 8. bipolar- restart home medications 9. dvt ppx- hep sq Visit type - Emergency Visit Emergency Visit: Yes ED Registration Date: 11/16/18 Care time: The patient presented to the Emergency Department on the above date and was hospitalized for further evaluation of their emergent condition. - New Patient This patient is new to me today: Yes Date on this admission: 11/17/18 - Critical Care Critical Care patient: No - Discharge Referral Referred to [facility] Med [facility] No
[2018-11-17] MEDS ORDERED: SODIUM CHLORIDE 1,000 ML IV SCH (09:00)
[2018-11-17] MEDS ORDERED: DEXTROSE 5%-WATER 100 ML IVPB ONE (10:29)
[2018-11-17] MEDS: ARIPiprazole 10 MG TABLET PO SCH (10:30)
[2018-11-17] MEDS: CARVEDILOL 25 MG TABLET (FP) PO SCH ×2 (10:30→22:17)
[2018-11-17] MEDS: FUROSEMIDE 40 MG/4 ML INJECTABLE VIAL IVPUSH SCH ×2 (10:30→14:23)
[2018-11-17] MEDS: NIFEdipine E.R 60 MG TABLET (UD) PO SCH (10:30)
[2018-11-17] MEDS: CEFTRIAXONE 2 GM in DEXTROSE 5%-WATER 100 ML IVPB SCH (10:30)
[2018-11-17 14:01] LABS: MAGNESIUM 1.4 mg/dL (1.8-2.4); PHOSPHOROUS 5.1 mg/dL (2.5-4.9)
--- NOTE | 2018-11-17 14:48 | CON.CARD ---
Consult Consult Specialty:: Cardiology Referred by:: ICU Reason for Consultation:: elevated troponin - History of Present Illness Chief Complaint: sob History of Present Illness: 58 y/o M with PMHx of diastolic CHF, NIDDM, HTN, HLD, CKD 5 bipolar disorder recent admission for bp control, CKD5 admitted with sob, found with fluid overload and possible pneumonia. Troponin is minimally elevated. No chest pain , orthopnea or PND. Echo 06/07 showed normal EF. ECG without acute changes. - History Source History Provided By: Medical Record Limitations to Obtaining History: Intubated - Past Medical History Cardio/Vascular: Yes: CHF, HTN Renal/: Yes: Renal Inusuff Rheumatology: Yes: Gout - Alcohol/Substance Use Hx Alcohol Use: No - Smoking History Smoking history: Unknown if ever smoked Have you smoked in the past 12 months: No Aproximately how many cigarettes per day: 0 - Social History Usual Living Arrangement: With Significant Other ADL: Support Services Occupation: disability History of Recent Travel: No Home Medications - Allergies Allergies/Adverse Reactions: Allergies Allergy/AdvReac Type Severity Reaction Status Date / Time No Known Allergies Allergy Verified 07/24/18 01:15 EST - Home Medications Home Medications: Ambulatory Orders Aripiprazole [Abilify] 10 mg PO DAILY 04/24/17 Atorvastatin Ca [Lipitor] 40 mg PO HS 04/24/17 Albuterol 0.083% Nebulizer Jaclyn [Ventolin 0.083% Nebulizer Soln -] 1 amp NEB Q4H PRN #1 amp 08/02/18 Carvedilol [Coreg -] 25 mg PO BID #60 tablet 08/02/18 Nifedipine ER [Procardia Xl -] 60 mg PO DAILY #30 tab.er.24 08/02/18 hydrALAZINE HCL [Apresoline -] 100 mg PO TID #90 tablet 08/02/18 Family Disease History - Family Disease History Family Disease History: Heart Disease: Father (HTN) Vital Signs: Vital Signs Temperature 98.1 F 11/17/18 09:52 Pulse Rate 126 H 11/17/18 09:52 Respiratory Rate 24 H 11/17/18 10:11 Blood Pressure 191/111 H 11/17/18 09:52 O2 Sat by Pulse Oximetry (%) 96 11/17/18 13:42 Constitutional: Yes: Obese Eyes: Yes: EOM Intact HENT: Yes: Normocephalic Neck: Yes: Trachea Midline Respiratory: Yes: CTA Bilaterally Gastrointestinal: Yes: Normal Bowel Sounds, Soft Renal/: Yes: Vaginal Bleeding JVD: Yes Carotid Bruit: No PMI: Non-Displaced Heart Sounds: Yes: S1, S2 Edema: Yes Edema: LLE: Trace, RLE: Trace Peripheral Pulses WNL: Yes - Other Data Labs, Other Data: CBC, BMP 11/17/18 05:20 11/17/18 06:00 INR, PTT INR 1.24 (0.83-1.09) H 11/16/18 19:09 Troponin, BNP 11/16/18 11/17/18 19:09 06:00 Troponin I 0.30 H 0.22 H B-Natriuretic Peptide 4597.3 H Troponin, BNP 11/16/18 11/17/18 19:09 06:00 Troponin I 0.30 H 0.22 H B-Natriuretic Peptide 4597.3 H Imaging - Results Chest X-ray: Report Reviewed EKG: Report Reviewed (nsr lvh repol) Assessment/Plan 58 y/o M with PMHx of diastolic CHF, NIDDM, HTN, HLD, CKD 5 bipolar disorder recent admission for bp control, CKD5 admitted with sob, found with fluid overload and possible pneumonia. Troponin is minimally elevated. No chest pain , orthopnea or PND. Echo 06/07 showed normal EF. ECG without acute changes. Acute on chronic diastolic CHF -due to fluid overload likely noncompliance with fluid and salt restriction. -continue lasix for diuresis -fluid restrict 2 liters, 2 gm NA diet. -renal eval, he may need HD soon. -restart home lasix. Elevated troponin -due to severe renal insufficiency. -nonischemic pattern -no plans for ischemia workup -dc telemetry. will follow as needed.
--- NOTE | 2018-11-17 16:14 | ECHO ---
Name: NEREIDA RIVERA Exam:Adult Echocardiogram Study Date: 11/17/2018 01:21 PM Age: 58 yrs Reason For Study: R/O ACS Height: 69 in Weight: 306 lb BSA: 2.5 m2 Procedure A complete two-dimensional transthoracic echocardiogram was performed (2D, M-mode, Doppler and color flow Doppler). The study was technically difficult with many images being suboptimal in quality. Left Ventricle There is mild concentric left ventricular hypertrophy. The left ventricular ejection fraction is norm al. Ejection Fraction = 55-60%. The left ventricular wall motion is normal. Right Ventricle The right ventricle is normal in size and function. Atria Normal left and right atrial size and function. Mitral Valve There is no mitral regurgitation noted. Tricuspid Valve There is trace tricuspid regurgitation. There was insufficient TR detected to calculate RV systolic p ressure. Aortic Valve No hemodynamically significant valvular aortic stenosis. No aortic regurgitation is present. Pulmonic Valve There is no pulmonic valvular regurgitation. Great Vessels The aortic root is normal size. Pericardium/Pleura There is no pericardial effusion. Interpretation Summary The study was technically difficult with many images being suboptimal in quality. The left ventricular ejection fraction is normal. There is mild concentric left ventricular hypertrophy. The right ventricle is normal in size and function. There is trace tricuspid regurgitation. MD Javad Storm 11/17/2018 04:14 PM
--- NOTE | 2018-11-17 16:55 | EKG ---
Test Reason : Blood Pressure : / mmHG Vent. Rate : 143 BPM Atrial Rate : 143 BPM P-R Int : 136 ms QRS Dur : 080 ms QT Int : 280 ms P-R-T Axes : 049 -13 063 degrees QTc Int : 432 ms SINUS TACHYCARDIA NONSPECIFIC T WAVE ABNORMALITY ABNORMAL ECG WHEN COMPARED WITH ECG OF 24-JUL-2018 02:08, PREMATURE VENTRICULAR COMPLEXES ARE NO LONGER PRESENT NONSPECIFIC T WAVE ABNORMALITY, WORSE IN LATERAL LEADS Confirmed by KEY CHAO, RICHMOND ([id number]) on 11/17/2018 4:54:59 PM Referred By: Confirmed By:RICHMOND MACKEY MD
--- NOTE | 2018-11-17 17:15 | CONSULT ---
Consult Consult Specialty:: Nephrology Reason for Consultation:: CKD - History of Present Illness Chief Complaint: shortness of breath and chest pain History of Present Illness: Pt is a 58 year old male with pmhx of CKD, CHF, non compliance, htn, dm, gout and obesity who presents to the ER with shortness of breath and chest pain. He also complains of productive cough and chest pain. He had a productive cough at home. He denies chest pain at the moment. I was called to evaluate him for elevated creatinine. He has not followed up in the office after his last hospitalization. He is poorly compliance with meds. He denies lower ext edema. - History Source History Provided By: Patient, Medical Record - Past Medical History Cardio/Vascular: Yes: CHF, HTN Renal/: Yes: Renal Inusuff Rheumatology: Yes: Gout Additional Medical History: obesity, non compliance - Alcohol/Substance Use Hx Alcohol Use: No - Smoking History Smoking history: Unknown if ever smoked Have you smoked in the past 12 months: No Aproximately how many cigarettes per day: 0 - Social History Usual Living Arrangement: With Significant Other ADL: Support Services Occupation: disability History of Recent Travel: No Home Medications - Allergies Allergies/Adverse Reactions: Allergies Allergy/AdvReac Type Severity Reaction Status Date / Time No Known Allergies Allergy Verified 07/24/18 01:15 EST - Home Medications Home Medications: Ambulatory Orders Aripiprazole [Abilify] 10 mg PO DAILY 04/24/17 Atorvastatin Ca [Lipitor] 40 mg PO HS 04/24/17 Albuterol 0.083% Nebulizer Jaclyn [Ventolin 0.083% Nebulizer Soln -] 1 amp NEB Q4H PRN #1 amp 08/02/18 Carvedilol [Coreg -] 25 mg PO BID #60 tablet 08/02/18 Nifedipine ER [Procardia Xl -] 60 mg PO DAILY #30 tab.er.24 08/02/18 hydrALAZINE HCL [Apresoline -] 100 mg PO TID #90 tablet 08/02/18 Family Disease History - Family Disease History Family Disease History: Heart Disease: Father (HTN) Review of Systems - Review of Systems Constitutional: reports: Chills, Fever, Malaise Eyes: reports: No Symptoms HENT: reports: No Symptoms Neck: reports: No Symptoms Cardiovascular: reports: Shortness of Breath. denies: Edema Respiratory: reports: Cough, SOB, SOB on Exertion Gastrointestinal: reports: No Symptoms Genitourinary: reports: No Symptoms Musculoskeletal: reports: No Symptoms, Muscle Weakness Neurological: reports: No Symptoms Endocrine: reports: No Symptoms Hematology/Lymphatic: reports: No Symptoms Psychiatric: reports: No Symptoms Physical Exam Vital Signs: Vital Signs Temperature 98.0 F 11/17/18 14:00 Pulse Rate 133 H 11/17/18 14:00 Respiratory Rate 24 H 11/17/18 10:11 Blood Pressure 123/55 L 11/17/18 14:00 O2 Sat by Pulse Oximetry (%) 96 11/17/18 13:42 Constitutional: Yes: Calm Eyes: Yes: Conjunctiva Clear HENT: Yes: Atraumatic Neck: Yes: Supple Cardiovascular: Yes: S1, S2 Respiratory: Yes: On Nasal O2, Rhonchi Gastrointestinal: Yes: Soft, Abdomen, Obese Renal/: Yes: WNL Musculoskeletal: Yes: WNL Edema: No Neurological: Yes: Oriented Psychiatric: Yes: Oriented Labs: CBC, BMP 11/17/18 05:20 11/17/18 06:00 Laboratory Tests 06/17/18 06/18/18 07/31/18 06:30 08:15 06:00 WBC Sodium Potassium Creatinine 4.0 H Urine Protein AURE Screen Negative HIV 1&2 Antibody Screen Negative HIV P24 Antigen Negative 08/01/18 08/02/18 11/16/18 06:15 07:00 19:09 WBC Sodium Potassium Creatinine 3.8 H 3.6 H 4.3 H Urine Protein AURE Screen HIV 1&2 Antibody Screen HIV P24 Antigen 11/17/18 11/17/18 11/17/18 05:20 05:34 06:00 WBC 10.4 H Sodium 139 Potassium 3.9 Creatinine 4.9 H Urine Protein 3+ H AURE Screen HIV 1&2 Antibody Screen HIV P24 Antigen Imaging - Results Chest X-ray: Report Reviewed Problem List - Problems (1) Elevated troponin Code(s): R74.8 - ABNORMAL LEVELS OF OTHER SERUM ENZYMES (2) CKD (chronic kidney disease) Code(s): N18.9 - CHRONIC KIDNEY DISEASE, UNSPECIFIED (3) YOCASTA (acute kidney injury) Code(s): N17.9 - ACUTE KIDNEY FAILURE, UNSPECIFIED (4) CHF (congestive heart failure) Code(s): I50.9 - HEART FAILURE, UNSPECIFIED Qualifiers: Heart failure type: unspecified Heart failure chronicity: acute on chronic Qualified Code(s): I50.9 - Heart failure, unspecified Assessment/Plan Current Medications Generic Name Dose Route Start Last Admin Trade Name Freq PRN Reason Stop Dose Admin Albuterol Sulfate 1 amp 11/17/18 03:39 Ventolin 0.083% Nebulizer Soln - NEB Q4H PRN SHORT OF BREATH/WHEEZING Aripiprazole 10 mg 11/17/18 10:00 11/17/18 10:30 Abilify PO Not Given DAILY RONALD Atorvastatin Calcium 40 mg 11/17/18 22:00 Lipitor - PO HS RONALD Carvedilol 25 mg 11/17/18 10:00 11/17/18 10:30 Coreg - PO 25 mg BID RONALD Administration Furosemide 40 mg 11/17/18 10:00 11/17/18 10:30 Lasix Injection - IVPUSH 40 mg DAILY RONALD Administration Furosemide 40 mg 11/17/18 14:00 11/17/18 14:23 Lasix Injection - IVPUSH Not Given BID@0600,1400 RONALD Heparin Sodium (Porcine) 5,000 unit 11/17/18 06:00 11/17/18 14:21 Heparin - SQ 5,000 unit TID RONALD Administration Hydralazine HCl 100 mg 11/17/18 06:00 11/17/18 06:58 Apresoline - PO 100 mg TID RONALD Administration Azithromycin 500 mg in 250 mls @ 250 mls/hr 11/18/18 10:00 Zithromax 500mg Ivpb (Pre-Docked) IVPB DAILY RONALD Ceftriaxone Sodium 2 gm/ 100 mls @ 200 mls/hr 11/17/18 10:00 11/17/18 10:30 Dextrose IVPB 200 mls/hr DAILY RONALD Administration Protocol Insulin Aspart 1 vial 11/17/18 07:00 11/17/18 12:50 Novolog Vial Sliding Scale - SQ Not Given ACHS RONALD Protocol Nifedipine 60 mg 11/17/18 10:00 11/17/18 10:30 Procardia Xl - PO 60 mg DAILY RONALD Administration Impression 1. YOCASTA 2. CKD 3. volume overload 4. HTN poorly controlled 5. CHF 6. DM 7. hx bipolar 8. gout 9. PNA Plan - will send out renal wokup - pt has had kidney disease and has not followed up - may need HD if he does not stabilize - repeat cxr in am - avoid nsaids - cont lasix for now - renal diet - cardio input appreciated
[2018-11-17] MEDS ORDERED: MAGNESIUM OXIDE 400 MG TABLET (FP) PO ONE (17:20)
[2018-11-17] MEDS: ALBUTEROL SO4 0.083% IH SOL 2.5 MG/3 ML VIAL.NEB. NEB PRN (20:45)
[2018-11-17] MEDS: ATORVASTATIN CA 40 MG TABLET (FP) PO SCH (22:19)
[2018-11-17] MEDS ORDERED: MELATONIN 5 MG TABLETS PO ONE (22:32)
[2018-11-17] MEDS ORDERED: oxyCODONE HCL 5 MG TABLET PO ONE (22:45)
[2018-11-17] MEDS ORDERED: ACETAMINOPHEN 325 MG TABLET (FP) PO ONE (22:45)
[2018-11-18 04:15] LABS: SERUM IRON SATURATION 7 % (15-55); TOTAL IRON BINDING CAPACITY 191 ug/dL (250-450); UIBC 178 ug/dL (111-343)
[2018-11-18] MEDS: FUROSEMIDE 40 MG/4 ML INJECTABLE VIAL IVPUSH SCH ×3 (06:59→13:38)
[2018-11-18] MEDS: HEPARIN NA (PORCINE) 5,000 UNITS/ML 1ML VIAL SQ SCH ×3 (07:00→21:57)
[2018-11-18] MEDS: INSULIN SLIDING SCALE (NOVOLOG) 1 VIAL SQ SCH ×4 (07:00→22:30)
[2018-11-18] MEDS: hydrALAZINE HCL 50 MG TABLET (FP) PO SCH ×4 (07:00→22:00)
[2018-11-18 07:08] LABS: BASO % 0.4 % (0-2.0); EOS % 4.3 % (0-4.5); HEMATOCRIT 20.8 % (35.4-49); LYMPH % 8.6 % (8-40); MCH 24.1 pg (25.7-33.7); MCHC 32.7 g/dl (32.0-35.9); MEAN CELL VOLUME 73.6 fl (80-96); MEAN PLT VOLUME 9.3 fl (7.5-11.1); MONO % 7.9 % (3.8-10.2); NEUT % 78.8 % (42.8-82.8); PLATELET COUNT 195 K/MM3 (134-434); RBC 2.83 M/mm3 (4.00-5.60); RDW 20.7 % (11.9-15.9); WHITE BLOOD COUNT 9.1 K/mm3 (4.0-10.0)
[2018-11-18 07:40] LABS: HEMOGLOBIN 6.8 GM/dL (11.7-16.9)
[2018-11-18 08:06] LABS: ALBUMIN 1.9 g/dl (3.4-5.0); ALK PHOS 118 U/L (45-117); ANION GAP 13 MMOL/L (8-16); BILIRUBIN,TOTAL 0.5 mg/dL (0.2-1); BLOOD UREA NITROGEN 66 mg/dL (7-18); CALCIUM 7.1 mg/dL (8.5-10.1); CHLORIDE 102 mmol/L (98-107); CO2 21 mmol/L (21-32); CREATININE 6.1 mg/dL (0.55-1.3); GLUCOSE,RANDOM 106 mg/dL (74-106); MAGNESIUM 1.7 mg/dL (1.8-2.4); SGOT/AST 33 U/L (15-37); SGPT/ALT 33 U/L (13-61); SODIUM 135 mmol/L (136-145); TOT PROT 6.2 g/dl (6.4-8.2)
[2018-11-18] MEDS ORDERED: DEXTROSE 5%-WATER 100 ML IVPB ONE (09:50)
[2018-11-18] MEDS: CEFTRIAXONE 2 GM in DEXTROSE 5%-WATER 100 ML IVPB SCH (10:18)
[2018-11-18] MEDS: ARIPiprazole 10 MG TABLET PO SCH ×2 (10:19→11:57)
[2018-11-18] MEDS: CARVEDILOL 25 MG TABLET (FP) PO SCH ×3 (10:19→22:00)
[2018-11-18] MEDS: AZITHROMYCIN IVPB 500 MG/250 ML BAG IVPB SCH (10:20)
[2018-11-18] MEDS: NIFEdipine E.R 60 MG TABLET (UD) PO SCH (10:20)
[2018-11-18 11:31] LABS: ARTERIAL BLOOD GAS BASE EXCESS -5.6 meq/l (-2-2); ARTERIAL BLOOD GAS PCO2 32.1 mmHg (35-45); ARTERIAL BLOOD GAS pH 7.38 (7.35-7.45)
[2018-11-18 11:36] LABS: ALLENS TEST POSITIVE
--- NOTE | 2018-11-18 13:10 | PN ---
Progress Note (short form) - Note Progress Note: PULMONARY CONSULTATION DICTATED 11/18/18 IMP S/P HYPERTENSIVE URGENCY DYSPNEA ACUTE ON CHRONIC CHF ? PNEUMONIA ACUTE ON CHRONIC KIDNEY DISEASE LIKELY OSAS MORBID OBESITY SEVERE ANEMIA + TROPONIN DM PLAN LASIX O2 ABX NIPPV NEEDED MONITOR LYTES,RENAL FUNCTION F/U CHEST X-RAYS DAILY WT SLEEP SCREEN OUTPATIENT SLEEP STUDY MONITOR H+H NORMAL TRANSFUSION THRESHOLD TREND TROPONIN DR MONTELONGO Problem List - Problems (1) Elevated troponin Code(s): R74.8 - ABNORMAL LEVELS OF OTHER SERUM ENZYMES (2) Hypertensive emergency Code(s): I16.1 - HYPERTENSIVE EMERGENCY (3) Morbid (severe) obesity due to excess calories Code(s): E66.01 - MORBID (SEVERE) OBESITY DUE TO EXCESS CALORIES (4) CKD (chronic kidney disease) Code(s): N18.9 - CHRONIC KIDNEY DISEASE, UNSPECIFIED (5) CHF (congestive heart failure) Code(s): I50.9 - HEART FAILURE, UNSPECIFIED Qualifiers: Heart failure type: unspecified Heart failure chronicity: acute on chronic Qualified Code(s): I50.9 - Heart failure, unspecified (6) Diabetes Code(s): E11.9 - TYPE 2 DIABETES MELLITUS WITHOUT COMPLICATIONS (7) Dyspnea Code(s): R06.00 - DYSPNEA, UNSPECIFIED (8) Hypertension Code(s): I10 - ESSENTIAL (PRIMARY) HYPERTENSION (9) Hypertensive urgency Code(s): I16.0 - HYPERTENSIVE URGENCY (10) Non compliance w medication regimen Code(s): Z91.14 - PATIENT'S OTHER NONCOMPLIANCE WITH MEDICATION REGIMEN (11) MOLLY (obstructive sleep apnea) Code(s): G47.33 - OBSTRUCTIVE SLEEP APNEA (ADULT) (PEDIATRIC)
--- NOTE | 2018-11-18 14:41 | PN ---
Progress Note, Physician Chief Complaint: He is comfortable and on bipap but he has difficulty keeping it on he has dropped his hemoglobin but no sign of bleeding no fever he is better today according to him - Current Medication List Current Medications: Active Medications Albuterol Sulfate (Ventolin 0.083% Nebulizer Soln -) 1 amp NEB Q4H PRN PRN Reason: SHORT OF BREATH/WHEEZING Last Admin: 11/17/18 20:45 Dose: 1 amp Aripiprazole (Abilify) 10 mg PO DAILY [facility] Last Admin: 11/18/18 11:57 Dose: 10 mg Atorvastatin Calcium (Lipitor -) 40 mg PO HS [facility] Last Admin: 11/17/18 22:19 Dose: 40 mg Carvedilol (Coreg -) 25 mg PO BID [facility] Last Admin: 11/18/18 10:19 Dose: 25 mg Furosemide (Lasix Injection -) 40 mg IVPUSH DAILY [facility] Last Admin: 11/18/18 10:20 Dose: Not Given Furosemide (Lasix Injection -) 40 mg IVPUSH BID@0600,1400 [facility] Last Admin: 11/18/18 13:38 Dose: 40 mg Heparin Sodium (Porcine) (Heparin -) 5,000 unit SQ TID [facility] Last Admin: 11/18/18 13:38 Dose: 5,000 unit Hydralazine HCl (Apresoline -) 100 mg PO TID [facility] Last Admin: 11/18/18 13:38 Dose: 100 mg Azithromycin (Zithromax 500mg Ivpb (Pre-Docked)) 500 mg in 250 mls @ 250 mls/ hr IVPB DAILY [facility] Last Admin: 11/18/18 10:20 Dose: 250 mls/hr Ceftriaxone Sodium 2 gm/ (Dextrose) 100 mls @ 200 mls/hr IVPB DAILY [facility]; Protocol Last Admin: 11/18/18 10:18 Dose: 200 mls/hr Insulin Aspart (Novolog Vial Sliding Scale -) 1 vial SQ ACHS [facility]; Protocol Last Admin: 11/18/18 11:47 Dose: Not Given Nifedipine (Procardia Xl -) 60 mg PO DAILY [facility] Last Admin: 11/18/18 10:20 Dose: 60 mg - Objective Vital Signs: Vital Signs Temperature 98.1 F 11/18/18 10:00 Pulse Rate 100 H 11/18/18 10:00 Respiratory Rate 22 H 11/18/18 10:00 Blood Pressure 124/78 11/18/18 10:00 O2 Sat by Pulse Oximetry (%) 97 11/18/18 11:35 Constitutional: Yes: Anxious, Mild Distress Eyes: Yes: Conjunctiva Clear HENT: Yes: Atraumatic, Normocephalic Neck: Yes: Supple Cardiovascular: Yes: Tachycardia Respiratory: Yes: On BiPap, Tachypnea, Wheezes Gastrointestinal: Yes: Normal Bowel Sounds Edema: No Neurological: Yes: WNL, Alert, Oriented (but he is tired) ...Motor Strength: WNL Labs: CBC, BMP 11/18/18 05:30 11/18/18 05:30 INR, PTT INR 1.24 (0.83-1.09) H 11/16/18 19:09 - ....Imaging Chest X-ray: Image Reviewed X-ray: Report Reviewed Ultrasound: Report Reviewed Impression/Plan Impression/Plan: 58yo M with PMH diastolic CHF, bipolar, DM, HTN and CKD presented to the ER wtih progressively worsening dyspnea with orthopnea. Pt was found to be having HTN urgency with flash pulmonary edema 1. HTN emergency much improved and has no headache 2. Sepsis due to pneumonia will contineu abx ceftrioxe and zithromax called pulmonary consult due to his status to r/o respiratory acidosis 3. Tropinemia- will watch and cardiac f/u 4. Acute on CKD- creatinine is m , nephro has seen the patient and ordered the sono of renal and it shows pt has mild hydornephrosis and requested ct abd and pelvis to r/o obstruction. 5. DM- continue BGM with coverage 6. bipolar- restart home medications 7. dvt ppx- hep sq 8-HIs hemoglobin is dropped to 6.8 and has no sign of bleeding and he is lethargic will transfuse one unit of prbc discussed with patient Visit type - Emergency Visit Emergency Visit: Yes ED Registration Date: 11/16/18 Care time: The patient presented to the Emergency Department on the above date and was hospitalized for further evaluation of their emergent condition. - New Patient This patient is new to me today: Yes Date on this admission: 11/18/18 - Critical Care Critical Care patient: No - Discharge Referral Referred to [facility] Med P.C.: No
--- NOTE | 2018-11-18 15:23 | CONS ---
DATE OF CONSULTATION: 11/18/2018 REFERRING PHYSICIAN: Bob Borges MD HISTORY: History was obtained from the chart. The patient is drowsy. The patient is a 58-year-old black male morbidly obese with a significant past medical history of bipolar disorder not compliant with medications, hypertension, diabetes, chronic kidney disease stage 5, diastolic CHF admitted to [facility] with a 3-day history of increasing shortness of breath, dyspnea on exertion, and chest pain. The patient also complained of cough, sputum production, and fever. On admission, he was felt to have possible congestive heart failure as well as pneumonia. He was admitted to the floor. He was started on antibiotic therapy. He underwent a CT scan of the chest, which revealed bilateral patchy infiltrates suspicious for primary vascular congestion, although could not exclude pneumonia. He was started on Lasix as well as supplemental O2 and antibiotics. Of note is the patient was also on admission noted to be hypertensive with a blood pressure of 202/136. He was treated with medications with improvement in his blood pressure. He underwent a echocardiogram, which revealed left ventricular ejection fraction normal with mild concentric left ventricular hypertrophy. No pericardial effusion was appreciated. No pulmonary hypertension was noted. The patient was evaluated by Cardiology and felt to have acute on chronic diastolic heart failure likely due to dietary noncompliance. The patient was prescribed Lasix as well as fluid restriction. He was also evaluated by Renal. PAST MEDICAL HISTORY: Again includes chronic kidney disease stage 5, bipolar disorder noncompliant, [id number] diabetes mellitus, diastolic heart failure, likely obstructive sleep apnea. REVIEW OF SYSTEMS: Unable to obtain at this time. The patient is very drowsy. CURRENT MEDICATIONS: Include Zithromax, ceftriaxone, Abilify, albuterol, Coreg, Procardia, Apresoline, Lipitor, NovoLog, Lasix. PHYSICAL EXAMINATION: General: The patient is a morbidly obese black male well developed, well nourished, very drowsy in no acute respiratory distress. Vital Signs: He is afebrile. Blood pressure 124/78, respiratory rate 22, O2 saturation 97% on 2 L. HEENT: Normocephalic and atraumatic. Neck: Supple. Heart: Regular. S1, S2. Chest: Some rhonchi. Abdomen: Soft. Bowel sounds are positive. Extremities: No cyanosis or edema. DIAGNOSTIC DATA: Labs: WBC 9.1, hemoglobin 6.8, hematocrit 20.8 with a platelet count of 195. INR 1.24, BNP 4018. Blood gas 7.38, PCO2 of 32, PO2 of 151, bicarbonate 18, saturation 99. BUN 66, creatinine 6.1. BNP 4597. Chest CT is bilateral patchy infiltrates and cardiomegaly. IMPRESSION: 1. Status post hypertensive urgency. 2. Dyspnea likely secondary to acute on chronic diastolic heart failure likely secondary to dietary noncompliance and medications as well as diet. 3. Rule out pneumonia. 4. Acute on chronic kidney disease. 5. Likely obstructive sleep apnea. 6. Morbid obesity. 7. Severe anemic. 8. Positive troponin. PLAN: Lasix. Supplemental O2. Antibiotics. BiPAP. Monitor electrolytes and renal function. Follow up chest x-ray and daily weights. Obtain outpatient sleep study. Monitor hemoglobin and hematocrit. Normal transfusion threshold. Trend troponins. Obtain sputum cultures. YADY MONTELONGO M.D. [id number] MTDD
[2018-11-18] MEDS ORDERED: MAGNESIUM OXIDE 400 MG TABLET (FP) PO ONE (16:10)
--- NOTE | 2018-11-18 16:10 | PN ---
Progress Note, Physician History of Present Illness: Pt seen and examined at bedside. He is drowsy. He is refusing to use bipap. He wakes up to eat then goes back to sleep. - Current Medication List Current Medications: Active Medications Albuterol Sulfate (Ventolin 0.083% Nebulizer Soln -) 1 amp NEB Q4H PRN PRN Reason: SHORT OF BREATH/WHEEZING Last Admin: 11/17/18 20:45 Dose: 1 amp Aripiprazole (Abilify) 10 mg PO DAILY [facility] Last Admin: 11/18/18 11:57 Dose: 10 mg Atorvastatin Calcium (Lipitor -) 40 mg PO HS [facility] Last Admin: 11/17/18 22:19 Dose: 40 mg Carvedilol (Coreg -) 25 mg PO BID [facility] Last Admin: 11/18/18 10:19 Dose: 25 mg Furosemide (Lasix Injection -) 40 mg IVPUSH DAILY [facility] Last Admin: 11/18/18 10:20 Dose: Not Given Furosemide (Lasix Injection -) 40 mg IVPUSH BID@0600,1400 [facility] Last Admin: 11/18/18 13:38 Dose: 40 mg Heparin Sodium (Porcine) (Heparin -) 5,000 unit SQ TID [facility] Last Admin: 11/18/18 13:38 Dose: 5,000 unit Hydralazine HCl (Apresoline -) 100 mg PO TID [facility] Last Admin: 11/18/18 13:38 Dose: 100 mg Azithromycin (Zithromax 500mg Ivpb (Pre-Docked)) 500 mg in 250 mls @ 250 mls/ hr IVPB DAILY [facility] Last Admin: 11/18/18 10:20 Dose: 250 mls/hr Ceftriaxone Sodium 2 gm/ (Dextrose) 100 mls @ 200 mls/hr IVPB DAILY [facility]; Protocol Last Admin: 11/18/18 10:18 Dose: 200 mls/hr Insulin Aspart (Novolog Vial Sliding Scale -) 1 vial SQ ACHS [facility]; Protocol Last Admin: 11/18/18 11:47 Dose: Not Given Nifedipine (Procardia Xl -) 60 mg PO DAILY [facility] Last Admin: 11/18/18 10:20 Dose: 60 mg - Objective Vital Signs: Vital Signs Temperature 98.2 F 11/18/18 14:05 Pulse Rate 90 11/18/18 14:05 Respiratory Rate 24 H 11/18/18 14:05 Blood Pressure 112/65 11/18/18 14:05 O2 Sat by Pulse Oximetry (%) 97 11/18/18 11:35 Constitutional: Yes: Calm Eyes: Yes: Conjunctiva Clear HENT: Yes: Atraumatic Cardiovascular: Yes: S1, S2 Respiratory: Yes: On Nasal O2 Gastrointestinal: Yes: Soft, Abdomen, Obese Musculoskeletal: Yes: WNL Edema: No Neurological: Yes: Oriented Labs: CBC, BMP 11/18/18 05:30 11/18/18 05:30 INR, PTT INR 1.24 (0.83-1.09) H 11/16/18 19:09 Problem List - Problems (1) Elevated troponin Code(s): R74.8 - ABNORMAL LEVELS OF OTHER SERUM ENZYMES (2) CKD (chronic kidney disease) Code(s): N18.9 - CHRONIC KIDNEY DISEASE, UNSPECIFIED (3) YOCASTA (acute kidney injury) Code(s): N17.9 - ACUTE KIDNEY FAILURE, UNSPECIFIED (4) CHF (congestive heart failure) Code(s): I50.9 - HEART FAILURE, UNSPECIFIED Qualifiers: Heart failure type: unspecified Heart failure chronicity: acute on chronic Qualified Code(s): I50.9 - Heart failure, unspecified Assessment/Plan Current Medications Generic Name Dose Route Start Last Admin Trade Name Freq PRN Reason Stop Dose Admin Albuterol Sulfate 1 amp 11/17/18 03:39 11/17/18 20:45 Ventolin 0.083% Nebulizer Soln - NEB 1 amp Q4H PRN Administration SHORT OF BREATH/WHEEZING Aripiprazole 10 mg 11/17/18 10:00 11/18/18 11:57 Abilify PO 10 mg DAILY [facility] Administration Atorvastatin Calcium 40 mg 11/17/18 22:00 11/17/18 22:19 Lipitor - PO 40 mg HS [facility] Administration Carvedilol 25 mg 11/17/18 10:00 11/18/18 10:19 Coreg - PO 25 mg BID [facility] Administration Furosemide 40 mg 11/17/18 10:00 11/18/18 10:20 Lasix Injection - IVPUSH Not Given DAILY [facility] Furosemide 40 mg 11/17/18 14:00 11/18/18 13:38 Lasix Injection - IVPUSH 40 mg BID@0600,1400 [facility] Administration Heparin Sodium (Porcine) 5,000 unit 11/17/18 06:00 11/18/18 13:38 Heparin - SQ 5,000 unit TID [facility] Administration Hydralazine HCl 100 mg 11/17/18 06:00 11/18/18 13:38 Apresoline - PO 100 mg TID [facility] Administration Azithromycin 500 mg in 250 mls @ 250 mls/hr 11/18/18 10:00 11/18/18 10:20 Zithromax 500mg Ivpb (Pre-Docked) IVPB 250 mls/hr DAILY [facility] Administration Ceftriaxone Sodium 2 gm/ 100 mls @ 200 mls/hr 11/17/18 10:00 11/18/18 10:18 Dextrose IVPB 200 mls/hr DAILY [facility] Administration Protocol Insulin Aspart 1 vial 11/17/18 07:00 11/18/18 11:47 Novolog Vial Sliding Scale - SQ Not Given ACHS [facility] Protocol Nifedipine 60 mg 11/17/18 10:00 11/18/18 10:20 Procardia Xl - PO 60 mg DAILY [facility] Administration Impression 1. YOCASTA 2. CKD 3. volume overload 4. HTN poorly controlled 5. CHF 6. DM 7. hx bipolar 8. gout 9. PNA 10. left hydro on ultrasound Plan - place merlos for hydro - renal function is worse - pt refusing bipap - repeat labs in am - renal workup in progress - may need HD if he does not stabilize - renal diet
[2018-11-18] MEDS: ATORVASTATIN CA 40 MG TABLET (FP) PO SCH (21:56)
[2018-11-18] MEDS: MAGNESIUM OXIDE 400 MG TABLET (FP) PO ONE ×2 (22:08→23:00)
[2018-11-19] MEDS: hydrALAZINE HCL 50 MG TABLET (FP) PO SCH ×3 (05:48→23:06)
[2018-11-19] MEDS: HEPARIN NA (PORCINE) 5,000 UNITS/ML 1ML VIAL SQ SCH ×3 (05:49→23:06)
[2018-11-19] MEDS: FUROSEMIDE 40 MG/4 ML INJECTABLE VIAL IVPUSH SCH ×3 (05:50→13:10)
[2018-11-19] MEDS: INSULIN SLIDING SCALE (NOVOLOG) 1 VIAL SQ SCH ×4 (06:22→22:57)
[2018-11-19 08:47] LABS: BASO % 0.4 % (0-2.0); EOS % 5.1 % (0-4.5); HEMATOCRIT 24.5 % (35.4-49); HEMOGLOBIN 8.2 GM/dL (11.7-16.9); LYMPH % 8.9 % (8-40); MCH 25.2 pg (25.7-33.7); MCHC 33.4 g/dl (32.0-35.9); MEAN CELL VOLUME 75.4 fl (80-96); MEAN PLT VOLUME 9.3 fl (7.5-11.1); MONO % 10.5 % (3.8-10.2); NEUT % 75.1 % (42.8-82.8); PLATELET COUNT 214 K/MM3 (134-434); RBC 3.24 M/mm3 (4.00-5.60); RDW 20.7 % (11.9-15.9); WHITE BLOOD COUNT 9.7 K/mm3 (4.0-10.0)
[2018-11-19] MEDS ORDERED: DEXTROSE 5%-WATER 100 ML IVPB ONE (08:52)
[2018-11-19 09:24] LABS: ALK PHOS 125 U/L (45-117); ANION GAP 17 MMOL/L (8-16); BILIRUBIN,TOTAL 0.6 mg/dL (0.2-1); BLOOD UREA NITROGEN 86 mg/dL (7-18); CHLORIDE 104 mmol/L (98-107); CO2 16 mmol/L (21-32); GLUCOSE,RANDOM 79 mg/dL (74-106); POTASSIUM 3.8 mmol/L (3.5-5.1); SGOT/AST 46 U/L (15-37); SGPT/ALT 35 U/L (13-61); SODIUM 137 mmol/L (136-145); TOT PROT 6.3 g/dl (6.4-8.2)
[2018-11-19 09:33] LABS: CALCIUM 6.6 mg/dL (8.5-10.1)
[2018-11-19 09:34] LABS: CREATININE 7.4 mg/dL (0.55-1.3)
--- NOTE | 2018-11-19 09:39 | PN ---
Physical Exam: SUBJECTIVE: Patient seen and examined. He is tachypneic sitting in bed. He denies SOB. He used BiPAP overnight. OBJECTIVE: Vital Signs Period Temp Pulse Resp BP Sys/Castillo Pulse Ox Last 24 Hr 98.1 F-99 F 90-105 20-24 104-139/57-83 97-100 GENERAL: The patient is awake, alert, and fully oriented, in mild respiratory distress. LUNGS: Breath sounds equal, bilateral rhonchi. HEART: S1 S2, regular rhythm, tachycardic, without murmur, rub or gallop. ABDOMEN: Obese, soft, nontender, nondistended, normoactive bowel sounds, no guarding, no rebound. EXTREMITIES: 2+ pulses, warm, well-perfused, no edema. Laboratory Results - last 24 hr 11/18/18 11/18/18 11/18/18 05:30 05:30 10:00 WBC RBC Hgb Hct MCV MCH MCHC RDW Plt Count MPV Absolute Neuts (auto) Neutrophils % Lymphocytes % Monocytes % Eosinophils % Basophils % Nucleated RBC % Puncture Site ABG pH ABG pCO2 at Pt Temp ABG pO2 at Pt Temp ABG HCO3 ABG O2 Sat (Measured) ABG O2 Content ABG Base Excess Tom Test Oxygen Flow Rate Sodium Potassium Chloride Carbon Dioxide Anion Gap BUN Creatinine Creat Clearance w eGFR POC Glucometer Random Glucose Hemoglobin A1c % < 5.0 Calcium Total Bilirubin AST ALT Alkaline Phosphatase Total Protein Albumin Blood Type A POSITIVE A POSITIVE Antibody Screen Negative Crossmatch See Detail 11/18/18 11/18/18 11/18/18 11:28 11:35 16:21 WBC RBC Hgb Hct MCV MCH MCHC RDW Plt Count MPV Absolute Neuts (auto) Neutrophils % Lymphocytes % Monocytes % Eosinophils % Basophils % Nucleated RBC % Puncture Site Right radial ABG pH 7.38 ABG pCO2 at Pt Temp 32.1 L ABG pO2 at Pt Temp 151.0 H* ABG HCO3 18.4 L ABG O2 Sat (Measured) 99.0 H ABG O2 Content 10.4 L ABG Base Excess -5.6 L Tom Test Positive Oxygen Flow Rate Yes Sodium Potassium Chloride Carbon Dioxide Anion Gap BUN Creatinine Creat Clearance w eGFR POC Glucometer 124 130 Random Glucose Hemoglobin A1c % Calcium Total Bilirubin AST ALT Alkaline Phosphatase Total Protein Albumin Blood Type Antibody Screen Crossmatch 11/18/18 11/19/1811/19/19 22:28 06:00 06:00 WBC 9.7 RBC 3.24 L Hgb 8.2 L Hct 24.5 L D MCV 75.4 L MCH 25.2 L MCHC 33.4 RDW 20.7 H Plt Count 214 MPV 9.3 Absolute Neuts (auto) 7.3 Neutrophils % 75.1 Lymphocytes % 8.9 Monocytes % 10.5 H Eosinophils % 5.1 H Basophils % 0.4 Nucleated RBC % 0 Puncture Site ABG pH ABG pCO2 at Pt Temp ABG pO2 at Pt Temp ABG HCO3 ABG O2 Sat (Measured) ABG O2 Content ABG Base Excess Tom Test Oxygen Flow Rate Sodium 137 Potassium 3.8 Chloride 104 Carbon Dioxide 16 L Anion Gap 17 H BUN 86 H Creatinine 7.4 H* Creat Clearance w eGFR 7.67 POC Glucometer 96 Random Glucose 79 Hemoglobin A1c % Calcium 6.6 L* Total Bilirubin 0.6 AST 46 H ALT 35 Alkaline Phosphatase 125 H Total Protein 6.3 L Albumin 2.0 L Blood Type Antibody Screen Crossmatch 11/19/18 06:21 WBC RBC Hgb Hct MCV MCH MCHC RDW Plt Count MPV Absolute Neuts (auto) Neutrophils % Lymphocytes % Monocytes % Eosinophils % Basophils % Nucleated RBC % Puncture Site ABG pH ABG pCO2 at Pt Temp ABG pO2 at Pt Temp ABG HCO3 ABG O2 Sat (Measured) ABG O2 Content ABG Base Excess Tom Test Oxygen Flow Rate Sodium Potassium Chloride Carbon Dioxide Anion Gap BUN Creatinine Creat Clearance w eGFR POC Glucometer 95 Random Glucose Hemoglobin A1c % Calcium Total Bilirubin AST ALT Alkaline Phosphatase Total Protein Albumin Blood Type Antibody Screen Crossmatch Active Medications Generic Name Dose Route Start Last Admin Trade Name Freq PRN Reason Stop Dose Admin Albuterol Sulfate 1 amp 11/17/18 03:39 11/17/18 20:45 Ventolin 0.083% Nebulizer Soln - NEB 1 amp Q4H PRN Administration SHORT OF BREATH/WHEEZING Aripiprazole 10 mg 11/17/18 10:00 11/18/18 11:57 Abilify PO 10 mg DAILY [facility] Administration Atorvastatin Calcium 40 mg 11/17/18 22:00 11/18/18 21:56 Lipitor - PO 40 mg HS [facility] Administration Carvedilol 25 mg 11/17/18 10:00 11/18/18 22:00 Coreg - PO Not Given BID [facility] Furosemide 40 mg 11/17/18 10:00 11/18/18 10:20 Lasix Injection - IVPUSH Not Given DAILY [facility] Furosemide 40 mg 11/17/18 14:00 11/19/18 05:50 Lasix Injection - IVPUSH 40 mg BID@0600,1400 [facility] Administration Heparin Sodium (Porcine) 5,000 unit 11/17/18 06:00 11/19/18 05:49 Heparin - SQ 5,000 unit TID [facility] Administration Hydralazine HCl 100 mg 11/17/18 06:00 11/19/18 05:48 Apresoline - PO Not Given TID [facility] Azithromycin 500 mg in 250 mls @ 250 mls/hr 11/18/18 10:00 11/18/18 10:20 Zithromax 500mg Ivpb (Pre-Docked) IVPB 250 mls/hr DAILY [facility] Administration Ceftriaxone Sodium 2 gm/ 100 mls @ 200 mls/hr 11/17/18 10:00 11/18/18 10:18 Dextrose IVPB 200 mls/hr DAILY [facility] Administration Protocol Insulin Aspart 1 vial 11/17/18 07:00 11/19/18 06:22 Novolog Vial Sliding Scale - SQ Not Given ACHS [facility] Protocol Nifedipine 60 mg 11/17/18 10:00 11/18/18 10:20 Procardia Xl - PO 60 mg DAILY [facility] Administration ASSESSMENT/PLAN: This is a 58 year old man with a history of HTN, diastolic heart failure, type 2 DM, bipolar disorder, stage 4 CKD who presented to the ED with SOB and orthopnea. 1. Hypertensive emergency - Improved 2. Sepsis (leukocytosis, fever, tachycardia, tachypnea) secondary to pneumonia - WBC improved, afebrile - Blood cultures negative - Urine Legionella, pneumococcus Ag negative - Respiratory virus PCR pending - Continue ceftriaxone, Zithromax, albuterol nebs as needed - Continue oxygen, BiPAP as needed 3. Acute kidney injury - Renal US shows minimal to mild left hydronephrosis and 0.8 cm nonobstructing left renal stone - Creatinine worsening on increased Lasix IV - Hopkins catheter ordered - CT abdomen/pelvis ordered - Monitor BUN, creatinine - Renal follow up 4. Elevated troponin - Possibly secondary to demand ischemia, CKD 5. Stage 4 CKD 6. Type 2 DM - Continue Novolog sliding scale 7. Bipolar disorder - Continue Abilify 8. HTN - Continue Coreg, Procardia XL, Hydralazine, Lasix 9. Acute on chronic diastolic heart failure - On IV Lasix, with worsening creatinine 10. Anemia - Transfused 2 units PRBCs - Continue to monitor hgb 11. Morbid obesity with BMI 47.0 12. Probable obstructive sleep apnea - Sleep study as outpatient Visit type - Emergency Visit Emergency Visit: Yes ED Registration Date: 11/16/18 Care time: The patient presented to the Emergency Department on the above date and was hospitalized for further evaluation of their emergent condition. - New Patient This patient is new to me today: Yes Date on this admission: 11/19/18 - Critical Care Critical Care patient: No - Discharge Referral Referred to [facility] No
[2018-11-19] MEDS: CARVEDILOL 25 MG TABLET (FP) PO SCH ×2 (10:30→23:06)
[2018-11-19] MEDS: NIFEdipine E.R 60 MG TABLET (UD) PO SCH (10:30)
[2018-11-19] MEDS: AZITHROMYCIN IVPB 500 MG/250 ML BAG IVPB SCH (10:33)
[2018-11-19] MEDS: CEFTRIAXONE 2 GM in DEXTROSE 5%-WATER 100 ML IVPB SCH (10:33)
[2018-11-19] MEDS ORDERED: PT OWN MED DRAWER 7, Y5N ONE (10:49)
[2018-11-19] MEDS: ARIPiprazole 10 MG TABLET PO SCH (11:01)
--- NOTE | 2018-11-19 12:46 | PN ---
Progress Note (short form) - Note Progress Note: Mildly tachypneic on NC O2 while eating lunch. Used NIPPV overnight. Intake & Output 11/16/18 11/17/18 11/18/18 11/19/18 23:59 23:59 23:59 23:59 Intake Total 300 400 350 Output Total 750 300 Balance -450 100 350 Weight 279 lb 305 lb 9.6 oz 309 lb Last Vital Signs Temp Pulse Resp BP Pulse Ox 98.3 F 90 20 104/65 98 11/19/18 05:07 11/19/18 05:07 11/19/18 05:07 11/19/18 05:07 11/19/18 06:00 Active Medications Albuterol Sulfate (Ventolin 0.083% Nebulizer Soln -) 1 amp NEB Q4H PRN PRN Reason: SHORT OF BREATH/WHEEZING Last Admin: 11/17/18 20:45 Dose: 1 amp Aripiprazole (Abilify) 10 mg PO DAILY [facility] Last Admin: 11/19/18 11:01 Dose: 10 mg Atorvastatin Calcium (Lipitor -) 40 mg PO HS [facility] Last Admin: 11/18/18 21:56 Dose: 40 mg Carvedilol (Coreg -) 25 mg PO BID [facility] Last Admin: 11/19/18 10:30 Dose: 25 mg Furosemide (Lasix Injection -) 40 mg IVPUSH DAILY [facility] Last Admin: 11/19/18 10:46 Dose: Not Given Furosemide (Lasix Injection -) 40 mg IVPUSH BID@0600,1400 [facility] Last Admin: 11/19/18 05:50 Dose: 40 mg Heparin Sodium (Porcine) (Heparin -) 5,000 unit SQ TID [facility] Last Admin: 11/19/18 05:49 Dose: 5,000 unit Hydralazine HCl (Apresoline -) 100 mg PO TID [facility] Last Admin: 11/19/18 05:48 Dose: Not Given Azithromycin (Zithromax 500mg Ivpb (Pre-Docked)) 500 mg in 250 mls @ 250 mls/ hr IVPB DAILY [facility] Last Admin: 11/19/18 10:33 Dose: 250 mls/hr Ceftriaxone Sodium 2 gm/ (Dextrose) 100 mls @ 200 mls/hr IVPB DAILY [facility]; Protocol Last Admin: 11/19/18 10:33 Dose: 200 mls/hr Insulin Aspart (Novolog Vial Sliding Scale -) 1 vial SQ ACHS [facility]; Protocol Last Admin: 11/19/18 06:22 Dose: Not Given Nifedipine (Procardia Xl -) 60 mg PO DAILY [facility] Last Admin: 11/19/18 10:30 Dose: 60 mg Constitutional: Yes: Mildly tachypneic on NC O2 Eyes: Yes: Conjunctiva Clear HENT: Yes: Atraumatic, Normocephalic Neck: Yes: Supple Cardiovascular: Yes: Tachycardia Respiratory: Yes: On NC O2, Mild Tachypnea, bilateral expiratory Wheezes/ rhonchi Gastrointestinal: Yes: Normal Bowel Sounds Edema: No Neurological: Yes: WNL, Alert, Oriented (but he is tired) ...Motor Strength: WNL Labs: Laboratory Results - last 24 hr 11/18/18 11/18/18 11/18/18 05:30 10:00 16:21 WBC RBC Hgb Hct MCV MCH MCHC RDW Plt Count MPV Absolute Neuts (auto) Neutrophils % Lymphocytes % Monocytes % Eosinophils % Basophils % Nucleated RBC % Sodium Potassium Chloride Carbon Dioxide Anion Gap BUN Creatinine Creat Clearance w eGFR POC Glucometer 130 Random Glucose Calcium Total Bilirubin AST ALT Alkaline Phosphatase Total Protein Albumin Blood Type A POSITIVE A POSITIVE Antibody Screen Negative Crossmatch See Detail 11/18/18 11/19/18 11/19/18 22:28 06:00 06:00 WBC 9.7 RBC 3.24 L Hgb 8.2 L Hct 24.5 L D MCV 75.4 L MCH 25.2 L MCHC 33.4 RDW 20.7 H Plt Count 214 MPV 9.3 Absolute Neuts (auto) 7.3 Neutrophils % 75.1 Lymphocytes % 8.9 Monocytes % 10.5 H Eosinophils % 5.1 H Basophils % 0.4 Nucleated RBC % 0 Sodium 137 Potassium 3.8 Chloride 104 Carbon Dioxide 16 L Anion Gap 17 H BUN 86 H Creatinine 7.4 H* Creat Clearance w eGFR 7.67 POC Glucometer 96 Random Glucose 79 Calcium 6.6 L* Total Bilirubin 0.6 AST 46 H ALT 35 Alkaline Phosphatase 125 H Total Protein 6.3 L Albumin 2.0 L Blood Type Antibody Screen Crossmatch 11/19/18 11/19/18 06:21 12:20 WBC RBC Hgb Hct MCV MCH MCHC RDW Plt Count MPV Absolute Neuts (auto) Neutrophils % Lymphocytes % Monocytes % Eosinophils % Basophils % Nucleated RBC % Sodium Potassium Chloride Carbon Dioxide Anion Gap BUN Creatinine Creat Clearance w eGFR POC Glucometer 95 191 Random Glucose Calcium Total Bilirubin AST ALT Alkaline Phosphatase Total Protein Albumin Blood Type Antibody Screen Crossmatch Problem List - Problems (1) Elevated troponin Code(s): R74.8 - ABNORMAL LEVELS OF OTHER SERUM ENZYMES (2) Hypertensive emergency Code(s): I16.1 - HYPERTENSIVE EMERGENCY (3) Morbid (severe) obesity due to excess calories Code(s): E66.01 - MORBID (SEVERE) OBESITY DUE TO EXCESS CALORIES (4) CKD (chronic kidney disease) Code(s): N18.9 - CHRONIC KIDNEY DISEASE, UNSPECIFIED (5) CHF (congestive heart failure) Code(s): I50.9 - HEART FAILURE, UNSPECIFIED Qualifiers: Heart failure type: unspecified Heart failure chronicity: acute on chronic Qualified Code(s): I50.9 - Heart failure, unspecified (6) Diabetes Code(s): E11.9 - TYPE 2 DIABETES MELLITUS WITHOUT COMPLICATIONS (7) Dyspnea Code(s): R06.00 - DYSPNEA, UNSPECIFIED (8) Hypertension Code(s): I10 - ESSENTIAL (PRIMARY) HYPERTENSION (9) Hypertensive urgency Code(s): I16.0 - HYPERTENSIVE URGENCY (10) Non compliance w medication regimen Code(s): Z91.14 - PATIENT'S OTHER NONCOMPLIANCE WITH MEDICATION REGIMEN (11) MOLLY (obstructive sleep apnea) Code(s): G47.33 - OBSTRUCTIVE SLEEP APNEA (ADULT) (PEDIATRIC) IMP S/P HYPERTENSIVE URGENCY DYSPNEA ACUTE ON CHRONIC CHF ? PNEUMONIA ACUTE ON CHRONIC KIDNEY DISEASE LIKELY OSAS MORBID OBESITY SEVERE ANEMIA + TROPONIN DM PLAN LASIX O2 ABX NIPPV NEEDED MONITOR LYTES,RENAL FUNCTION F/U CHEST X-RAYS DAILY WT OUTPATIENT SLEEP STUDY MONITOR H+H NORMAL TRANSFUSION THRESHOLD DR JOHNSON
--- NOTE | 2018-11-19 15:19 | PN ---
Progress Note, Physician History of Present Illness: Pt seen and examined at bedside. He remain in tele. He is combative and is now restrained. He is on bipap. - Current Medication List Current Medications: Active Medications Albuterol Sulfate (Ventolin 0.083% Nebulizer Soln -) 1 amp NEB Q4H PRN PRN Reason: SHORT OF BREATH/WHEEZING Last Admin: 11/17/18 20:45 Dose: 1 amp Aripiprazole (Abilify) 10 mg PO DAILY [facility] Last Admin: 11/19/18 11:01 Dose: 10 mg Atorvastatin Calcium (Lipitor -) 40 mg PO HS [facility] Last Admin: 11/18/18 21:56 Dose: 40 mg Carvedilol (Coreg -) 25 mg PO BID [facility] Last Admin: 11/19/18 10:30 Dose: 25 mg Furosemide (Lasix Injection -) 40 mg IVPUSH DAILY [facility] Last Admin: 11/19/18 10:46 Dose: Not Given Furosemide (Lasix Injection -) 40 mg IVPUSH BID@0600,1400 [facility] Last Admin: 11/19/18 13:10 Dose: Not Given Heparin Sodium (Porcine) (Heparin -) 5,000 unit SQ TID [facility] Last Admin: 11/19/18 14:55 Dose: 5,000 unit Hydralazine HCl (Apresoline -) 100 mg PO TID [facility] Last Admin: 11/19/18 14:55 Dose: Not Given Azithromycin (Zithromax 500mg Ivpb (Pre-Docked)) 500 mg in 250 mls @ 250 mls/ hr IVPB DAILY [facility] Last Admin: 11/19/18 10:33 Dose: 250 mls/hr Ceftriaxone Sodium 2 gm/ (Dextrose) 100 mls @ 200 mls/hr IVPB DAILY [facility]; Protocol Last Admin: 11/19/18 10:33 Dose: 200 mls/hr Insulin Aspart (Novolog Vial Sliding Scale -) 1 vial SQ ACHS [facility]; Protocol Last Admin: 11/19/18 13:15 Dose: 2 units Nifedipine (Procardia Xl -) 60 mg PO DAILY [facility] Last Admin: 11/19/18 10:30 Dose: 60 mg - Objective Vital Signs: Vital Signs Temperature 98.3 F 11/19/18 05:07 Pulse Rate 90 11/19/18 05:07 Respiratory Rate 20 11/19/18 05:07 Blood Pressure 104/65 11/19/18 05:07 O2 Sat by Pulse Oximetry (%) 98 11/19/18 06:00 Constitutional: Yes: Anxious Eyes: Yes: Conjunctiva Clear HENT: Yes: Atraumatic Cardiovascular: Yes: S1, S2 Respiratory: Yes: On BiPap, Rhonchi Gastrointestinal: Yes: Soft, Abdomen, Obese Genitourinary: Yes: Merlos Present Musculoskeletal: Yes: WNL Edema: No Neurological: Yes: Confusion Labs: CBC, BMP 11/19/18 06:00 11/19/18 06:00 INR, PTT INR 1.24 (0.83-1.09) H 11/16/18 19:09 - ....Imaging Chest X-ray: Report Reviewed Problem List - Problems (1) Elevated troponin Code(s): R74.8 - ABNORMAL LEVELS OF OTHER SERUM ENZYMES (2) CKD (chronic kidney disease) Code(s): N18.9 - CHRONIC KIDNEY DISEASE, UNSPECIFIED (3) YOCASTA (acute kidney injury) Code(s): N17.9 - ACUTE KIDNEY FAILURE, UNSPECIFIED (4) CHF (congestive heart failure) Code(s): I50.9 - HEART FAILURE, UNSPECIFIED Qualifiers: Heart failure type: unspecified Heart failure chronicity: acute on chronic Qualified Code(s): I50.9 - Heart failure, unspecified Assessment/Plan Current Medications Generic Name Dose Route Start Last Admin Trade Name Freq PRN Reason Stop Dose Admin Albuterol Sulfate 1 amp 11/17/18 03:39 11/17/18 20:45 Ventolin 0.083% Nebulizer Soln - NEB 1 amp Q4H PRN Administration SHORT OF BREATH/WHEEZING Aripiprazole 10 mg 11/17/18 10:00 11/19/18 11:01 Abilify PO 10 mg DAILY [facility] Administration Atorvastatin Calcium 40 mg 11/17/18 22:00 11/18/18 21:56 Lipitor - PO 40 mg HS [facility] Administration Carvedilol 25 mg 11/17/18 10:00 11/19/18 10:30 Coreg - PO 25 mg BID [facility] Administration Furosemide 40 mg 11/17/18 10:00 11/19/18 10:46 Lasix Injection - IVPUSH Not Given DAILY [facility] Furosemide 40 mg 11/17/18 14:00 11/19/18 13:10 Lasix Injection - IVPUSH Not Given BID@0600,1400 [facility] Heparin Sodium (Porcine) 5,000 unit 11/17/18 06:00 11/19/18 14:55 Heparin - SQ 5,000 unit TID [facility] Administration Hydralazine HCl 100 mg 11/17/18 06:00 11/19/18 14:55 Apresoline - PO Not Given TID [facility] Azithromycin 500 mg in 250 mls @ 250 mls/hr 11/18/18 10:00 11/19/18 10:33 Zithromax 500mg Ivpb (Pre-Docked) IVPB 250 mls/hr DAILY [facility] Administration Ceftriaxone Sodium 2 gm/ 100 mls @ 200 mls/hr 11/17/18 10:00 11/19/18 10:33 Dextrose IVPB 200 mls/hr DAILY [facility] Administration Protocol Insulin Aspart 1 vial 11/17/18 07:00 11/19/18 13:15 Novolog Vial Sliding Scale - SQ 2 units ACHS [facility] Administration Protocol Nifedipine 60 mg 11/17/18 10:00 11/19/18 10:30 Procardia Xl - PO 60 mg DAILY [facility] Administration Impression 1. YOCASTA 2. CKD 3. volume overload 4. HTN poorly controlled 5. CHF 6. DM 7. hx bipolar 8. gout 9. PNA 10. left hydro on ultrasound Plan - renal function worsening - maintain merlos as he had hydro - repeat labs in am - hold afternoon dose of lasix - pt now on bipap - renal workup in progress - may need HD if he does not stabilize - renal diet
[2018-11-19] MEDS: ATORVASTATIN CA 40 MG TABLET (FP) PO SCH (23:06)
[2018-11-20 04:09] LABS: SERUM IRON SATURATION 6 % (15-55); TOTAL IRON BINDING CAPACITY 192 ug/dL (250-450); UIBC 180 ug/dL (111-343)
[2018-11-20 06:37] LABS: HBSAG SCREEN Negative (Negative); HEP B CORE AB, TOT Negative (Negative)
[2018-11-20] MEDS: HEPARIN NA (PORCINE) 5,000 UNITS/ML 1ML VIAL SQ SCH ×3 (06:41→21:16)
[2018-11-20] MEDS: hydrALAZINE HCL 50 MG TABLET (FP) PO SCH ×3 (06:41→21:15)
[2018-11-20] MEDS: INSULIN SLIDING SCALE (NOVOLOG) 1 VIAL SQ SCH ×4 (07:46→22:28)
[2018-11-20] MEDS ORDERED: DEXTROSE 5%-WATER 100 ML IVPB ONE (08:39)
[2018-11-20] MEDS ORDERED: FUROSEMIDE 100 MG/10 ML INJECTABLE VIAL IVPB SCH (10:00)
[2018-11-20] MEDS: CARVEDILOL 25 MG TABLET (FP) PO SCH ×2 (10:35→22:00)
[2018-11-20] MEDS: NIFEdipine E.R 60 MG TABLET (UD) PO SCH (10:35)
[2018-11-20] MEDS: ARIPiprazole 10 MG TABLET PO SCH (10:36)
[2018-11-20] MEDS: AZITHROMYCIN IVPB 500 MG/250 ML BAG IVPB SCH (10:37)
[2018-11-20] MEDS: CEFTRIAXONE 2 GM in DEXTROSE 5%-WATER 100 ML IVPB SCH (10:37)
--- NOTE | 2018-11-20 12:06 | PN ---
Progress Note (short form) - Note Progress Note: Mildly tachypneic but in NAD. Alternating NIPPV and NC with meals. No acute events overnight. Intake & Output 11/17/18 11/18/18 11/19/18 11/20/18 23:59 23:59 23:59 23:59 Intake Total 300 400 650 10 Output Total [phone] Balance -450 100 -850 10 Weight 305 lb 9.6 oz 309 lb Last Vital Signs Temp Pulse Resp BP Pulse Ox 98.3 F 91 H 20 115/72 97 11/20/18 01:52 11/20/18 01:52 11/20/18 01:52 11/20/18 01:52 11/19/18 21:00 Active Medications Albuterol Sulfate (Ventolin 0.083% Nebulizer Soln -) 1 amp NEB Q4H PRN PRN Reason: SHORT OF BREATH/WHEEZING Last Admin: 11/17/18 20:45 Dose: 1 amp Aripiprazole (Abilify) 10 mg PO DAILY [facility] Last Admin: 11/20/18 10:36 Dose: 10 mg Atorvastatin Calcium (Lipitor -) 40 mg PO HS [facility] Last Admin: 11/19/18 23:06 Dose: 40 mg Carvedilol (Coreg -) 25 mg PO BID [facility] Last Admin: 11/20/18 10:35 Dose: 25 mg Heparin Sodium (Porcine) (Heparin -) 5,000 unit SQ TID [facility] Last Admin: 11/20/18 06:41 Dose: 5,000 unit Hydralazine HCl (Apresoline -) 100 mg PO TID [facility] Last Admin: 11/20/18 06:41 Dose: Not Given Azithromycin (Zithromax 500mg Ivpb (Pre-Docked)) 500 mg in 250 mls @ 250 mls/ hr IVPB DAILY [facility] Last Admin: 11/20/18 10:37 Dose: 250 mls/hr Ceftriaxone Sodium 2 gm/ (Dextrose) 100 mls @ 200 mls/hr IVPB DAILY [facility]; Protocol Last Admin: 11/20/18 10:37 Dose: 200 mls/hr Insulin Aspart (Novolog Vial Sliding Scale -) 1 vial SQ ACHS [facility]; Protocol Last Admin: 11/20/18 07:46 Dose: Not Given Nifedipine (Procardia Xl -) 60 mg PO DAILY [facility] Last Admin: 11/20/18 10:35 Dose: 60 mg Constitutional: Yes: Mildly tachypneic, NAD Eyes: Yes: Conjunctiva Clear HENT: Yes: Atraumatic, Normocephalic Neck: Yes: Supple Cardiovascular: Yes: Tachycardia Respiratory: Yes: On NC O2, Mild Tachypnea, bilateral expiratory Wheezes/ rhonchi Gastrointestinal: Yes: Normal Bowel Sounds Edema: No Neurological: Yes: WNL, Alert, Oriented (but he is tired) ...Motor Strength: WNL Labs: Laboratory Results - last 24 hr 11/18/18 11/18/18 11/19/18 05:30 05:30 12:20 POC Glucometer 191 Iron 12 L TIBC 192 L Iron Saturation 6 L Hepatitis A Ab Total Negative Hep Bs Antigen Negative Hep Bs Antibody Reactive Hep B Core Total Ab Negative 11/19/18 11/19/18 11/20/18 16:48 22:24 05:59 POC Glucometer 114 108 98 Iron TIBC Iron Saturation Hepatitis A Ab Total Hep Bs Antigen Hep Bs Antibody Hep B Core Total Ab 11/20/18 11:55 POC Glucometer 153 Iron TIBC Iron Saturation Hepatitis A Ab Total Hep Bs Antigen Hep Bs Antibody Hep B Core Total Ab Problem List - Problems (1) Elevated troponin Code(s): R74.8 - ABNORMAL LEVELS OF OTHER SERUM ENZYMES (2) Hypertensive emergency Code(s): I16.1 - HYPERTENSIVE EMERGENCY (3) Morbid (severe) obesity due to excess calories Code(s): E66.01 - MORBID (SEVERE) OBESITY DUE TO EXCESS CALORIES (4) CKD (chronic kidney disease) Code(s): N18.9 - CHRONIC KIDNEY DISEASE, UNSPECIFIED (5) CHF (congestive heart failure) Code(s): I50.9 - HEART FAILURE, UNSPECIFIED Qualifiers: Heart failure type: unspecified Heart failure chronicity: acute on chronic Qualified Code(s): I50.9 - Heart failure, unspecified (6) Diabetes Code(s): E11.9 - TYPE 2 DIABETES MELLITUS WITHOUT COMPLICATIONS (7) Dyspnea Code(s): R06.00 - DYSPNEA, UNSPECIFIED (8) Hypertension Code(s): I10 - ESSENTIAL (PRIMARY) HYPERTENSION (9) Hypertensive urgency Code(s): I16.0 - HYPERTENSIVE URGENCY (10) Non compliance w medication regimen Code(s): Z91.14 - PATIENT'S OTHER NONCOMPLIANCE WITH MEDICATION REGIMEN (11) MOLLY (obstructive sleep apnea) Code(s): G47.33 - OBSTRUCTIVE SLEEP APNEA (ADULT) (PEDIATRIC) IMP S/P HYPERTENSIVE URGENCY DYSPNEA ACUTE ON CHRONIC CHF ? PNEUMONIA ACUTE ON CHRONIC KIDNEY DISEASE LIKELY OSAS MORBID OBESITY SEVERE ANEMIA + TROPONIN DM PLAN LASIX O2 VIA NC TOLERATED ABX NIPPV SUPPORT MONITOR LYTES,RENAL FUNCTION DAILY WT OUTPATIENT SLEEP STUDY MONITOR H+H NORMAL TRANSFUSION THRESHOLD DR JOHNSON
[2018-11-20 13:37] LABS: ANION GAP 14 MMOL/L (8-16); BLOOD UREA NITROGEN 97 mg/dL (7-18); CHLORIDE 102 mmol/L (98-107); CO2 19 mmol/L (21-32); GLUCOSE,RANDOM 154 mg/dL (74-106); POTASSIUM 4.5 mmol/L (3.5-5.1); SODIUM 135 mmol/L (136-145)
[2018-11-20 13:58] LABS: CREATININE 8.6 mg/dL (0.55-1.3)
[2018-11-20 13:59] LABS: CALCIUM 6.7 mg/dL (8.5-10.1)
[2018-11-20] MEDS ORDERED: DEXTROSE 50%-WATER 25 GM/50 ML DISP.SYRIN ONE (15:00)
[2018-11-20 15:25] LABS: ARTERIAL BLD GAS O2 SATURATION 94.3 % (90-98.9); ARTERIAL BLOOD GAS BASE EXCESS -9.1 meq/l (-2-2); ARTERIAL BLOOD GAS PCO2 35.6 mmHg (35-45); ARTERIAL BLOOD GAS pH 7.28 (7.35-7.45)
[2018-11-20 15:28] LABS: ALLENS TEST POSITIVE
[2018-11-20] MEDS: ALBUTEROL SO4 0.083% IH SOL 2.5 MG/3 ML VIAL.NEB. NEB PRN (15:30)
--- NOTE | 2018-11-20 15:32 | PN ---
Physical Exam: SUBJECTIVE: Patient seen and examined. He is lethargic, difficult to arouse on BiPAP. OBJECTIVE: Vital Signs Period Temp Pulse Resp BP Sys/Castillo Pulse Ox Last 24 Hr 97.6 F-98.4 F 91-102 18-20 115-121/72-77 96-98 GENERAL: The patient is lethargic, on BiPAP. LUNGS: Breath sounds equal, bilateral rhonchi. HEART: S1 S2, regular rhythm, tachycardic, without murmur, rub or gallop. ABDOMEN: Obese, soft, nontender, nondistended, normoactive bowel sounds, no guarding, no rebound. EXTREMITIES: 2+ pulses, warm, well-perfused, no edema. Laboratory Results - last 24 hr 11/18/18 11/18/18 11/19/18 05:30 05:30 16:48 Puncture Site ABG pH ABG pCO2 at Pt Temp ABG pO2 at Pt Temp ABG HCO3 ABG O2 Sat (Measured) ABG O2 Content ABG Base Excess Tom Test Oxygen Flow Rate Vent Rate PEEP Sodium Potassium Chloride Carbon Dioxide Anion Gap BUN Creatinine Creat Clearance w eGFR POC Glucometer 114 Random Glucose Calcium Iron 12 L TIBC 192 L Iron Saturation 6 L Hepatitis A Ab Total Negative Hep Bs Antigen Negative Hep Bs Antibody Reactive Hep B Core Total Ab Negative 11/19/18 11/20/18 11/20/18 22:24 05:59 11:55 Puncture Site ABG pH ABG pCO2 at Pt Temp ABG pO2 at Pt Temp ABG HCO3 ABG O2 Sat (Measured) ABG O2 Content ABG Base Excess Tom Test Oxygen Flow Rate Vent Rate PEEP Sodium Potassium Chloride Carbon Dioxide Anion Gap BUN Creatinine Creat Clearance w eGFR POC Glucometer 108 98 153 Random Glucose Calcium Iron TIBC Iron Saturation Hepatitis A Ab Total Hep Bs Antigen Hep Bs Antibody Hep B Core Total Ab 11/20/18 11/20/18 11/20/18 12:45 14:59 15:22 Puncture Site Right radial ABG pH 7.28 L ABG pCO2 at Pt Temp 35.6 ABG pO2 at Pt Temp 83.0 D ABG HCO3 16.3 L ABG O2 Sat (Measured) 94.3 ABG O2 Content 11.1 L ABG Base Excess -9.1 L Tom Test Positive Oxygen Flow Rate 35 Vent Rate 16 PEEP 0.0 Sodium 135 L Potassium 4.5 Chloride 102 Carbon Dioxide 19 L Anion Gap 14 BUN 97 H Creatinine 8.6 H* Creat Clearance w eGFR 6.45 POC Glucometer 119 Random Glucose 154 H Calcium 6.7 L* Iron TIBC Iron Saturation Hepatitis A Ab Total Hep Bs Antigen Hep Bs Antibody Hep B Core Total Ab Active Medications Generic Name Dose Route Start Last Admin Trade Name Freq PRN Reason Stop Dose Admin Albuterol Sulfate 1 amp 11/17/18 03:39 11/17/18 20:45 Ventolin 0.083% Nebulizer Soln - NEB 1 amp Q4H PRN Administration SHORT OF BREATH/WHEEZING Aripiprazole 10 mg 11/17/18 10:00 11/20/18 10:36 Abilify PO 10 mg DAILY [facility] Administration Atorvastatin Calcium 40 mg 11/17/18 22:00 11/19/18 23:06 Lipitor - PO 40 mg HS [facility] Administration Carvedilol 25 mg 11/17/18 10:00 11/20/18 10:35 Coreg - PO 25 mg BID [facility] Administration Heparin Sodium (Porcine) 5,000 unit 11/17/18 06:00 11/20/18 15:12 Heparin - SQ Not Given TID [facility] Hydralazine HCl 100 mg 11/17/18 06:00 11/20/18 15:12 Apresoline - PO Not Given TID [facility] Azithromycin 500 mg in 250 mls @ 250 mls/hr 11/18/18 10:00 11/20/18 10:37 Zithromax 500mg Ivpb (Pre-Docked) IVPB 250 mls/hr DAILY [facility] Administration Ceftriaxone Sodium 2 gm/ 100 mls @ 200 mls/hr 11/17/18 10:00 11/20/18 10:37 Dextrose IVPB 200 mls/hr DAILY [facility] Administration Protocol Insulin Aspart 1 vial 11/17/18 07:00 11/20/18 12:51 Novolog Vial Sliding Scale - SQ 2 units ACHS [facility] Administration Protocol Nifedipine 60 mg 11/17/18 10:00 11/20/18 10:35 Procardia Xl - PO 60 mg DAILY [facility] Administration ASSESSMENT/PLAN: This is a 58 year old man with a history of HTN, diastolic heart failure, type 2 DM, bipolar disorder, stage 4 CKD who presented to the ED with SOB and orthopnea. 1. Hypertensive emergency - Improved 2. Sepsis (leukocytosis, fever, tachycardia, tachypnea) secondary to pneumonia - WBC improved, afebrile - Blood cultures negative - Urine Legionella, pneumococcus Ag negative - Respiratory virus PCR pending - Continue ceftriaxone, Zithromax, albuterol nebs as needed - Continue oxygen, BiPAP as needed 3. Acute kidney injury - Renal US shows minimal to mild left hydronephrosis and 0.8 cm nonobstructing left renal stone - Creatinine continues to worsen and now has metabolic acidosis - Lasix as per nephrology - Maintain Hopkins catheter - CT abdomen/pelvis ordered - Monitor BUN, creatinine 4. Elevated troponin - Possibly secondary to demand ischemia, CKD 5. Stage 4 CKD 6. Type 2 DM - Continue Novolog sliding scale 7. Bipolar disorder - Continue Abilify 8. HTN - Continue Coreg, Procardia XL, Hydralazine, Lasix 9. Acute on chronic diastolic heart failure - Continue Lasix IV as needed 10. Anemia - Transfused 2 units PRBCs - Continue to monitor hgb 11. Morbid obesity with BMI 47.0 12. Probable obstructive sleep apnea - Sleep study as outpatient Visit type - Emergency Visit Emergency Visit: Yes ED Registration Date: 11/16/18 Care time: The patient presented to the Emergency Department on the above date and was hospitalized for further evaluation of their emergent condition. - New Patient This patient is new to me today: No - Critical Care Critical Care patient: No - Discharge Referral Referred to [facility] No
[2018-11-20] MEDS ORDERED: FUROSEMIDE 40 MG/4 ML INJECTABLE VIAL ONE (16:08)
[2018-11-20] MEDS ORDERED: FUROSEMIDE 40 MG/4 ML INJECTABLE VIAL IVPUSH ONE (16:30)
[2018-11-20 17:11] LABS: HEMATOCRIT 24.9 % (35.4-49); HEMOGLOBIN 8.4 GM/dL (11.7-16.9); MCH 25.3 pg (25.7-33.7); MCHC 33.7 g/dl (32.0-35.9); MEAN CELL VOLUME 75.2 fl (80-96); MEAN PLT VOLUME 8.6 fl (7.5-11.1); PLATELET COUNT 250 K/MM3 (134-434); RBC 3.31 M/mm3 (4.00-5.60); RDW 20.9 % (11.9-15.9); WHITE BLOOD COUNT 10.5 K/mm3 (4.0-10.0)
--- NOTE | 2018-11-20 17:38 | PN ---
Progress Note, Physician History of Present Illness: Pt seen and examined at bedside. He was more awake in the morning. He is getting bipap. Pt is now more lethargic. - Current Medication List Current Medications: Active Medications Albuterol Sulfate (Ventolin 0.083% Nebulizer Soln -) 1 amp NEB Q4H PRN PRN Reason: SHORT OF BREATH/WHEEZING Last Admin: 11/20/18 15:30 Dose: 1 amp Aripiprazole (Abilify) 10 mg PO DAILY [facility] Last Admin: 11/20/18 10:36 Dose: 10 mg Atorvastatin Calcium (Lipitor -) 40 mg PO HS [facility] Last Admin: 11/19/18 23:06 Dose: 40 mg Carvedilol (Coreg -) 25 mg PO BID [facility] Last Admin: 11/20/18 10:35 Dose: 25 mg Heparin Sodium (Porcine) (Heparin -) 5,000 unit SQ TID [facility] Last Admin: 11/20/18 15:12 Dose: Not Given Hydralazine HCl (Apresoline -) 100 mg PO TID [facility] Last Admin: 11/20/18 15:12 Dose: Not Given Azithromycin (Zithromax 500mg Ivpb (Pre-Docked)) 500 mg in 250 mls @ 250 mls/ hr IVPB DAILY [facility] Last Admin: 11/20/18 10:37 Dose: 250 mls/hr Ceftriaxone Sodium 2 gm/ (Dextrose) 100 mls @ 200 mls/hr IVPB DAILY [facility]; Protocol Last Admin: 11/20/18 10:37 Dose: 200 mls/hr Insulin Aspart (Novolog Vial Sliding Scale -) 1 vial SQ ACHS [facility]; Protocol Last Admin: 11/20/18 12:51 Dose: 2 units Nifedipine (Procardia Xl -) 60 mg PO DAILY [facility] Last Admin: 11/20/18 10:35 Dose: 60 mg - Objective Vital Signs: Vital Signs Temperature 97.8 F 11/20/18 14:00 Pulse Rate 86 11/20/18 14:00 Respiratory Rate 18 11/20/18 10:00 Blood Pressure 102/75 11/20/18 14:00 O2 Sat by Pulse Oximetry (%) 100 11/20/18 15:30 Constitutional: Yes: Calm Eyes: Yes: Conjunctiva Clear HENT: Yes: Atraumatic Cardiovascular: Yes: S1, S2 Respiratory: Yes: On Nasal O2, Rhonchi Gastrointestinal: Yes: Soft, Abdomen, Obese Genitourinary: Yes: Hopkins Present Musculoskeletal: Yes: Muscle Weakness Edema: No Neurological: Yes: Lethargy Labs: CBC, BMP 11/20/18 17:00 11/20/18 12:45 INR, PTT INR 1.24 (0.83-1.09) H 11/16/18 19:09 Problem List - Problems (1) Elevated troponin Code(s): R74.8 - ABNORMAL LEVELS OF OTHER SERUM ENZYMES (2) CKD (chronic kidney disease) Code(s): N18.9 - CHRONIC KIDNEY DISEASE, UNSPECIFIED (3) YOCASTA (acute kidney injury) Code(s): N17.9 - ACUTE KIDNEY FAILURE, UNSPECIFIED (4) CHF (congestive heart failure) Code(s): I50.9 - HEART FAILURE, UNSPECIFIED Qualifiers: Heart failure type: unspecified Heart failure chronicity: acute on chronic Qualified Code(s): I50.9 - Heart failure, unspecified Assessment/Plan Current Medications Generic Name Dose Route Start Last Admin Trade Name Freq PRN Reason Stop Dose Admin Albuterol Sulfate 1 amp 11/17/18 03:39 11/20/18 15:30 Ventolin 0.083% Nebulizer Soln - NEB 1 amp Q4H PRN Administration SHORT OF BREATH/WHEEZING Aripiprazole 10 mg 11/17/18 10:00 11/20/18 10:36 Abilify PO 10 mg DAILY [facility] Administration Atorvastatin Calcium 40 mg 11/17/18 22:00 11/19/18 23:06 Lipitor - PO 40 mg HS [facility] Administration Carvedilol 25 mg 11/17/18 10:00 11/20/18 10:35 Coreg - PO 25 mg BID [facility] Administration Heparin Sodium (Porcine) 5,000 unit 11/17/18 06:00 11/20/18 15:12 Heparin - SQ Not Given TID [facility] Hydralazine HCl 100 mg 11/17/18 06:00 11/20/18 15:12 Apresoline - PO Not Given TID [facility] Azithromycin 500 mg in 250 mls @ 250 mls/hr 11/18/18 10:00 11/20/18 10:37 Zithromax 500mg Ivpb (Pre-Docked) IVPB 250 mls/hr DAILY [facility] Administration Ceftriaxone Sodium 2 gm/ 100 mls @ 200 mls/hr 11/17/18 10:00 11/20/18 10:37 Dextrose IVPB 200 mls/hr DAILY [facility] Administration Protocol Insulin Aspart 1 vial 11/17/18 07:00 11/20/18 12:51 Novolog Vial Sliding Scale - SQ 2 units ACHS [facility] Administration Protocol Nifedipine 60 mg 11/17/18 10:00 11/20/18 10:35 Procardia Xl - PO 60 mg DAILY [facility] Administration Impression 1. YOCASTA 2. CKD 3. volume overload 4. HTN poorly controlled 5. CHF 6. DM 7. hx bipolar 8. gout 9. PNA 10. left hydro on ultrasound Plan - renal function continues to worsen - workup in progress - tried to call contact information on chart Paulravi René at [phone] however line is disconnected - may need to do a 2 pc consent for HD if he does not improve - did give a dose of lasix - repeat cxr in am - discussed with medical team
[2018-11-20] MEDS: ATORVASTATIN CA 40 MG TABLET (FP) PO SCH (22:00)
[2018-11-21] MEDS: hydrALAZINE HCL 50 MG TABLET (FP) PO SCH ×4 (05:51→22:59)
[2018-11-21] MEDS: HEPARIN NA (PORCINE) 5,000 UNITS/ML 1ML VIAL SQ SCH ×3 (05:52→22:52)
[2018-11-21] MEDS: INSULIN SLIDING SCALE (NOVOLOG) 1 VIAL SQ SCH ×4 (06:36→22:52)
[2018-11-21 07:01] LABS: HEMATOCRIT 24.6 % (35.4-49); HEMOGLOBIN 8.1 GM/dL (11.7-16.9); MCHC 32.9 g/dl (32.0-35.9); MEAN CELL VOLUME 76.1 fl (80-96); MEAN PLT VOLUME 8.7 fl (7.5-11.1); PLATELET COUNT 281 K/MM3 (134-434); RBC 3.23 M/mm3 (4.00-5.60); RDW 21.2 % (11.9-15.9); WHITE BLOOD COUNT 10.5 K/mm3 (4.0-10.0)
[2018-11-21 07:32] LABS: ALBUMIN 1.9 g/dl (3.4-5.0); ALK PHOS 126 U/L (45-117); ANION GAP 19 MMOL/L (8-16); BILIRUBIN,TOTAL 0.3 mg/dL (0.2-1); CHLORIDE 104 mmol/L (98-107); CO2 16 mmol/L (21-32); GLUCOSE,RANDOM 75 mg/dL (74-106); POTASSIUM 4.1 mmol/L (3.5-5.1); SGOT/AST 61 U/L (15-37); SGPT/ALT 34 U/L (13-61); SODIUM 138 mmol/L (136-145); TOT PROT 6.4 g/dl (6.4-8.2)
[2018-11-21 07:39] LABS: BLOOD UREA NITROGEN 109 mg/dL (7-18)
[2018-11-21] MEDS ORDERED: DEXTROSE 5%-WATER 100 ML IVPB ONE (09:13)
[2018-11-21] MEDS: ARIPiprazole 10 MG TABLET PO SCH (10:00)
[2018-11-21] MEDS: CARVEDILOL 25 MG TABLET (FP) PO SCH ×3 (10:19→23:00)
[2018-11-21] MEDS: CEFTRIAXONE 2 GM in DEXTROSE 5%-WATER 100 ML IVPB SCH (10:19)
[2018-11-21] MEDS: NIFEdipine E.R 60 MG TABLET (UD) PO SCH (10:19)
[2018-11-21] MEDS: AZITHROMYCIN IVPB 500 MG/250 ML BAG IVPB SCH (10:20)
--- NOTE | 2018-11-21 10:58 | PN ---
Progress Note, Physician History of Present Illness: PULMONARY LETHARGIC VERY DIFFICULT TO AROUSE,SNORING,ON NASAL O2,NOT COMPLAINT WITH BIPAP - Current Medication List Current Medications: Active Medications Albuterol Sulfate (Ventolin 0.083% Nebulizer Soln -) 1 amp NEB Q4H PRN PRN Reason: SHORT OF BREATH/WHEEZING Last Admin: 11/20/18 15:30 Dose: 1 amp Aripiprazole (Abilify) 10 mg PO DAILY [facility] Last Admin: 11/20/18 10:36 Dose: 10 mg Atorvastatin Calcium (Lipitor -) 40 mg PO HS [facility] Last Admin: 11/20/18 22:00 Dose: Not Given Carvedilol (Coreg -) 25 mg PO BID [facility] Last Admin: 11/21/18 10:19 Dose: 25 mg Heparin Sodium (Porcine) (Heparin -) 5,000 unit SQ TID [facility] Last Admin: 11/21/18 05:52 Dose: 5,000 unit Hydralazine HCl (Apresoline -) 100 mg PO TID [facility] Last Admin: 11/21/18 05:51 Dose: Not Given Azithromycin (Zithromax 500mg Ivpb (Pre-Docked)) 500 mg in 250 mls @ 250 mls/ hr IVPB DAILY [facility] Last Admin: 11/21/18 10:20 Dose: 250 mls/hr Ceftriaxone Sodium 2 gm/ (Dextrose) 100 mls @ 200 mls/hr IVPB DAILY [facility]; Protocol Last Admin: 11/21/18 10:19 Dose: 200 mls/hr Insulin Aspart (Novolog Vial Sliding Scale -) 1 vial SQ ACHS [facility]; Protocol Last Admin: 11/21/18 06:36 Dose: Not Given Nifedipine (Procardia Xl -) 60 mg PO DAILY [facility] Last Admin: 11/21/18 10:19 Dose: 60 mg - Objective Vital Signs: Vital Signs Temperature 97.6 F 11/21/18 06:00 Pulse Rate 92 H 11/21/18 06:00 Respiratory Rate 22 H 11/21/18 02:00 Blood Pressure 123/80 11/21/18 06:00 O2 Sat by Pulse Oximetry (%) 97 11/21/18 09:41 Constitutional: Yes: Obese Eyes: Yes: WNL HENT: Yes: WNL Neck: Yes: WNL Cardiovascular: Yes: Regular Rate and Rhythm, S1, S2 Respiratory: Yes: Rales (FEW SCATTERED WHEEZES AND RHONCHI), Rhonchi Gastrointestinal: Yes: Normal Bowel Sounds, Soft Extremities: Yes: WNL Edema: Yes Labs: CBC, BMP 11/21/18 05:30 11/21/18 05:30 INR, PTT INR 1.24 (0.83-1.09) H 11/16/18 19:09 Problem List - Problems (1) Elevated troponin Code(s): R74.8 - ABNORMAL LEVELS OF OTHER SERUM ENZYMES (2) Hypertensive emergency Code(s): I16.1 - HYPERTENSIVE EMERGENCY (3) Morbid (severe) obesity due to excess calories Code(s): E66.01 - MORBID (SEVERE) OBESITY DUE TO EXCESS CALORIES (4) CKD (chronic kidney disease) Code(s): N18.9 - CHRONIC KIDNEY DISEASE, UNSPECIFIED (5) CHF (congestive heart failure) Code(s): I50.9 - HEART FAILURE, UNSPECIFIED Qualifiers: Heart failure type: unspecified Heart failure chronicity: acute on chronic Qualified Code(s): I50.9 - Heart failure, unspecified (6) Diabetes Code(s): E11.9 - TYPE 2 DIABETES MELLITUS WITHOUT COMPLICATIONS (7) Dyspnea Code(s): R06.00 - DYSPNEA, UNSPECIFIED (8) Hypertension Code(s): I10 - ESSENTIAL (PRIMARY) HYPERTENSION (9) Hypertensive urgency Code(s): I16.0 - HYPERTENSIVE URGENCY (10) Non compliance w medication regimen Code(s): Z91.14 - PATIENT'S OTHER NONCOMPLIANCE WITH MEDICATION REGIMEN (11) MOLLY (obstructive sleep apnea) Code(s): G47.33 - OBSTRUCTIVE SLEEP APNEA (ADULT) (PEDIATRIC) Assessment/Plan IMP S/P HYPERTENSIVE URGENCY DYSPNEA ACUTE ON CHRONIC CHF ? PNEUMONIA ACUTE ON CHRONIC KIDNEY DISEASE LIKELY OSAS MORBID OBESITY SEVERE ANEMIA + TROPONIN DM PLAN LASIX O2 ABX NIPPV NEEEDED EVA HS MONITOR LYTES,RENAL FUNCTION F/U CHEST X-RAYS DAILY WT OUTPATIENT SLEEP STUDY MONITOR H+H NORMAL TRANSFUSION THRESHOLD DR MONTELONGO Problem List - Problems (1) Elevated troponin Code(s): R74.8 - ABNORMAL LEVELS OF OTHER SERUM ENZYMES (2) Hypertensive emergency Code(s): I16.1 - HYPERTENSIVE EMERGENCY (3) Morbid (severe) obesity due to excess calories Code(s): E66.01 - MORBID (SEVERE) OBESITY DUE TO EXCESS CALORIES (4) CKD (chronic kidney disease) Code(s): N18.9 - CHRONIC KIDNEY DISEASE, UNSPECIFIED (5) CHF (congestive heart failure) Code(s): I50.9 - HEART FAILURE, UNSPECIFIED Qualifiers: Heart failure type: unspecified Heart failure chronicity: acute on chronic Qualified Code(s): I50.9 - Heart failure, unspecified (6) Diabetes Code(s): E11.9 - TYPE 2 DIABETES MELLITUS WITHOUT COMPLICATIONS (7) Dyspnea Code(s): R06.00 - DYSPNEA, UNSPECIFIED (8) Hypertension Code(s): I10 - ESSENTIAL (PRIMARY) HYPERTENSION (9) Hypertensive urgency Code(s): I16.0 - HYPERTENSIVE URGENCY (10) Non compliance w medication regimen Code(s): Z91.14 - PATIENT'S OTHER NONCOMPLIANCE WITH MEDICATION REGIMEN (11) MOLLY (obstructive sleep apnea) Code(s): G47.33 - OBSTRUCTIVE SLEEP APNEA (ADULT) (PEDIATRIC)
--- NOTE | 2018-11-21 12:47 | PN ---
Physical Exam: SUBJECTIVE: Patient seen and examined. He is minimally responsive. OBJECTIVE: Vital Signs Period Temp Pulse Resp BP Sys/Castillo Pulse Ox Last 24 Hr 96.9 F-97.8 F 86-93 20-24 102-130/65-80 97-100 GENERAL: The patient is minimally responsive on BiPAP. LUNGS: Bilateral rhonchi. HEART: S1 S2, regular rate and rhythm, without murmur, rub or gallop. ABDOMEN: Obese, soft, nondistended, normoactive bowel sounds, no guarding, no rebound. EXTREMITIES: 2+ pulses, warm, well-perfused, no edema. Laboratory Results - last 24 hr 11/20/18 11/20/18 11/20/18 12:45 14:59 15:22 WBC RBC Hgb Hct MCV MCH MCHC RDW Plt Count MPV Puncture Site Right radial ABG pH 7.28 L ABG pCO2 at Pt Temp 35.6 ABG pO2 at Pt Temp 83.0 D ABG HCO3 16.3 L ABG O2 Sat (Measured) 94.3 ABG O2 Content 11.1 L ABG Base Excess -9.1 L Tom Test Positive Oxygen Flow Rate 35 Vent Rate 16 PEEP 0.0 Sodium 135 L Potassium 4.5 Chloride 102 Carbon Dioxide 19 L Anion Gap 14 BUN 97 H Creatinine 8.6 H* Creat Clearance w eGFR 6.45 POC Glucometer 119 Random Glucose 154 H Calcium 6.7 L* Total Bilirubin AST ALT Alkaline Phosphatase Total Protein Albumin 11/20/18 11/20/18 11/20/18 17:00 17:21 22:20 WBC 10.5 H RBC 3.31 L Hgb 8.4 L Hct 24.9 L MCV 75.2 L MCH 25.3 L MCHC 33.7 RDW 20.9 H Plt Count 250 MPV 8.6 Puncture Site ABG pH ABG pCO2 at Pt Temp ABG pO2 at Pt Temp ABG HCO3 ABG O2 Sat (Measured) ABG O2 Content ABG Base Excess Tom Test Oxygen Flow Rate Vent Rate PEEP Sodium Potassium Chloride Carbon Dioxide Anion Gap BUN Creatinine Creat Clearance w eGFR POC Glucometer 123 89 Random Glucose Calcium Total Bilirubin AST ALT Alkaline Phosphatase Total Protein Albumin 11/21/18 11/21/18 11/21/18 05:30 05:30 05:33 WBC 10.5 H RBC 3.23 L Hgb 8.1 L Hct 24.6 L MCV 76.1 L MCH 25.0 L MCHC 32.9 RDW 21.2 H Plt Count 281 MPV 8.7 Puncture Site ABG pH ABG pCO2 at Pt Temp ABG pO2 at Pt Temp ABG HCO3 ABG O2 Sat (Measured) ABG O2 Content ABG Base Excess Tom Test Oxygen Flow Rate Vent Rate PEEP Sodium 138 Potassium 4.1 Chloride 104 Carbon Dioxide 16 L Anion Gap 19 H BUN 109 H* Creatinine 10.0 H* Creat Clearance w eGFR 5.42 POC Glucometer 77 Random Glucose 75 Calcium 7.0 L Total Bilirubin 0.3 AST 61 H ALT 34 Alkaline Phosphatase 126 H Total Protein 6.4 Albumin 1.9 L 11/21/18 11:44 WBC RBC Hgb Hct MCV MCH MCHC RDW Plt Count MPV Puncture Site ABG pH ABG pCO2 at Pt Temp ABG pO2 at Pt Temp ABG HCO3 ABG O2 Sat (Measured) ABG O2 Content ABG Base Excess Tom Test Oxygen Flow Rate Vent Rate PEEP Sodium Potassium Chloride Carbon Dioxide Anion Gap BUN Creatinine Creat Clearance w eGFR POC Glucometer 100 Random Glucose Calcium Total Bilirubin AST ALT Alkaline Phosphatase Total Protein Albumin Active Medications Generic Name Dose Route Start Last Admin Trade Name Freq PRN Reason Stop Dose Admin Albuterol Sulfate 1 amp 11/17/18 03:39 11/20/18 15:30 Ventolin 0.083% Nebulizer Soln - NEB 1 amp Q4H PRN Administration SHORT OF BREATH/WHEEZING Aripiprazole 10 mg 11/17/18 10:00 11/20/18 10:36 Abilify PO 10 mg DAILY [facility] Administration Atorvastatin Calcium 40 mg 11/17/18 22:00 11/20/18 22:00 Lipitor - PO Not Given HS [facility] Carvedilol 25 mg 11/17/18 10:00 11/21/18 10:19 Coreg - PO 25 mg BID [facility] Administration Heparin Sodium (Porcine) 5,000 unit 11/17/18 06:00 11/21/18 05:52 Heparin - SQ 5,000 unit TID [facility] Administration Hydralazine HCl 100 mg 11/17/18 06:00 11/21/18 05:51 Apresoline - PO Not Given TID [facility] Azithromycin 500 mg in 250 mls @ 250 mls/hr 11/18/18 10:00 11/21/18 10:20 Zithromax 500mg Ivpb (Pre-Docked) IVPB 250 mls/hr DAILY [facility] Administration Ceftriaxone Sodium 2 gm/ 100 mls @ 200 mls/hr 11/17/18 10:00 11/21/18 10:19 Dextrose IVPB 200 mls/hr DAILY [facility] Administration Protocol Insulin Aspart 1 vial 11/17/18 07:00 11/21/18 12:13 Novolog Vial Sliding Scale - SQ Not Given ACHS [facility] Protocol Nifedipine 60 mg 11/17/18 10:00 11/21/18 10:19 Procardia Xl - PO 60 mg DAILY [facility] Administration ASSESSMENT/PLAN: This is a 58 year old man with a history of HTN, diastolic heart failure, type 2 DM, bipolar disorder, stage 4 CKD who presented to the ED with SOB and orthopnea. 1. Hypertensive emergency - Improved 2. Sepsis (leukocytosis, fever, tachycardia, tachypnea) secondary to pneumonia - Blood cultures negative - Urine Legionella, pneumococcus Ag negative - Respiratory virus PCR pending - Continue ceftriaxone, Zithromax, albuterol nebs as needed - Continue oxygen, BiPAP as needed 3. Acute metabolic encephalopathy secondary to uremia/acute kidney injury - Renal US shows minimal to mild left hydronephrosis and 0.8 cm nonobstructing left renal stone - BUN, creatinine continue to worsen - Will start HD 4. Elevated troponin - Possibly secondary to demand ischemia, CKD 5. Stage 4 CKD 6. Type 2 DM - Continue Novolog sliding scale 7. Bipolar disorder - Continue Abilify 8. HTN - Continue Coreg, Procardia XL, Hydralazine, Lasix 9. Acute on chronic diastolic heart failure - No improvement with Lasix IV - will start HD 10. Anemia - Transfused 2 units PRBCs this admission - Continue to monitor hgb 11. Morbid obesity with BMI 47.0 12. Probable obstructive sleep apnea - Sleep study as outpatient Visit type - Emergency Visit Emergency Visit: Yes ED Registration Date: 11/16/18 Care time: The patient presented to the Emergency Department on the above date and was hospitalized for further evaluation of their emergent condition. - New Patient This patient is new to me today: No - Critical Care Critical Care patient: No - Discharge Referral Referred to [facility] No
[2018-11-21] MEDS ORDERED: LIDOCAINE HCL 1%, 10 MG/ML (20ML VIAL) NR ONE (15:05)
[2018-11-21] MEDS ORDERED: SODIUM CHLORIDE 250 ML IV PRN (15:12)
--- NOTE | 2018-11-21 15:12 | PN ---
Progress Note, Physician History of Present Illness: Pt seen and examined at bedside. He remains lethargic. The nurse and I were unable to arouse him. He remains oliguric and his renal function is worsening. Pt is unable to give consent for HD and his emergency contact has a disconnected line. - Current Medication List Current Medications: Active Medications Albuterol Sulfate (Ventolin 0.083% Nebulizer Soln -) 1 amp NEB Q4H PRN PRN Reason: SHORT OF BREATH/WHEEZING Last Admin: 11/20/18 15:30 Dose: 1 amp Aripiprazole (Abilify) 10 mg PO DAILY [facility]CLUDES [facility] Last Admin: 11/20/18 10:36 Dose: 10 mg Atorvastatin Calcium (Lipitor -) 40 mg PO HS COUNT INCLUDES [facility] Last Admin: 11/20/18 22:00 Dose: Not Given Carvedilol (Coreg -) 25 mg PO BID [facility] Last Admin: 11/21/18 10:19 Dose: 25 mg Heparin Sodium (Porcine) (Heparin -) 5,000 unit SQ TID [facility] Last Admin: 11/21/18 05:52 Dose: 5,000 unit Hydralazine HCl (Apresoline -) 100 mg PO TID [facility] Last Admin: 11/21/18 05:51 Dose: Not Given Azithromycin (Zithromax 500mg Ivpb (Pre-Docked)) 500 mg in 250 mls @ 250 mls/ hr IVPB DAILY [facility] Last Admin: 11/21/18 10:20 Dose: 250 mls/hr Ceftriaxone Sodium 2 gm/ (Dextrose) 100 mls @ 200 mls/hr IVPB DAILY [facility]; Protocol Last Admin: 11/21/18 10:19 Dose: 200 mls/hr Insulin Aspart (Novolog Vial Sliding Scale -) 1 vial SQ ACHS [facility]; Protocol Last Admin: 11/21/18 12:13 Dose: Not Given Lidocaine HCl (Xylocaine 1%) 10 ml SQ ONCE ONE Stop: 11/21/18 15:06 Nifedipine (Procardia Xl -) 60 mg PO DAILY [facility] Last Admin: 11/21/18 10:19 Dose: 60 mg - Objective Vital Signs: Vital Signs Temperature 97.8 F 11/21/18 10:00 Pulse Rate 93 H 11/21/18 10:00 Respiratory Rate 24 H 11/21/18 10:00 Blood Pressure 130/78 11/21/18 10:00 O2 Sat by Pulse Oximetry (%) 97 11/21/18 14:00 Constitutional: Yes: Moderate Distress Eyes: Yes: Conjunctiva Clear HENT: Yes: Atraumatic Neck: Yes: Other (obese) Cardiovascular: Yes: S1, S2 Respiratory: Yes: On BiPap, On Nasal O2, Rhonchi Gastrointestinal: Yes: Soft, Abdomen, Obese Genitourinary: Yes: Hopkins Present, Oliguria Musculoskeletal: Yes: Muscle Weakness Edema: Yes Edema: LLE: Trace, RLE: Trace Integumentary: No: Rash Neurological: Yes: Lethargy Labs: CBC, BMP 11/21/18 05:30 11/21/18 05:30 INR, PTT INR 1.24 (0.83-1.09) H 11/16/18 19:09 Laboratory Tests 11/16/18 11/18/18 11/19/18 20:20 05:30 06:00 Hgb 8.2 L AURE Screen Pending c-ANCA Pending Proteinase 3 (PR3) Pending p-ANCA Pending Atypical p-ANCA Pending Myeloperoxidase Ab Pending Double Strand DNA Ab Pending Glomerular Base Memb Ab Pending Influenza A (Rapid) Negative Influenza B (Rapid) Negative - ....Imaging Chest X-ray: Report Reviewed Problem List - Problems (1) Elevated troponin Code(s): R74.8 - ABNORMAL LEVELS OF OTHER SERUM ENZYMES (2) CKD (chronic kidney disease) Code(s): N18.9 - CHRONIC KIDNEY DISEASE, UNSPECIFIED (3) YOCASTA (acute kidney injury) Code(s): N17.9 - ACUTE KIDNEY FAILURE, UNSPECIFIED (4) CHF (congestive heart failure) Code(s): I50.9 - HEART FAILURE, UNSPECIFIED Qualifiers: Heart failure type: unspecified Heart failure chronicity: acute on chronic Qualified Code(s): I50.9 - Heart failure, unspecified Assessment/Plan Current Medications Generic Name Dose Route Start Last Admin Trade Name Freq PRN Reason Stop Dose Admin Albuterol Sulfate 1 amp 11/17/18 03:39 11/20/18 15:30 Ventolin 0.083% Nebulizer Soln - NEB 1 amp Q4H PRN Administration SHORT OF BREATH/WHEEZING Aripiprazole 10 mg 11/17/18 10:00 11/20/18 10:36 Abilify PO 10 mg DAILY [facility] Administration Atorvastatin Calcium 40 mg 11/17/18 22:00 11/20/18 22:00 Lipitor - PO Not Given HS [facility] Carvedilol 25 mg 11/17/18 10:00 11/21/18 10:19 Coreg - PO 25 mg BID [facility] Administration Heparin Sodium (Porcine) 5,000 unit 11/17/18 06:00 11/21/18 05:52 Heparin - SQ 5,000 unit TID [facility] Administration Hydralazine HCl 100 mg 11/17/18 06:00 11/21/18 05:51 Apresoline - PO Not Given TID [facility] Azithromycin 500 mg in 250 mls @ 250 mls/hr 11/18/18 10:00 11/21/18 10:20 Zithromax 500mg Ivpb (Pre-Docked) IVPB 250 mls/hr DAILY [facility] Administration Ceftriaxone Sodium 2 gm/ 100 mls @ 200 mls/hr 11/17/18 10:00 11/21/18 10:19 Dextrose IVPB 200 mls/hr DAILY [facility] Administration Protocol Insulin Aspart 1 vial 11/17/18 07:00 11/21/18 12:13 Novolog Vial Sliding Scale - SQ Not Given ACHS [facility] Protocol Lidocaine HCl 10 ml 11/21/18 15:05 Xylocaine 1% SQ 11/21/18 15:06 ONCE ONE Nifedipine 60 mg 11/17/18 10:00 11/21/18 10:19 Procardia Xl - PO 60 mg DAILY [facility] Administration Laboratory Tests 11/18/18 11/21/18 11/21/18 05:30 05:30 05:30 Hgb 8.1 L BUN 109 H* Creatinine 10.0 H* AURE Screen Pending c-ANCA Pending Proteinase 3 (PR3) Pending p-ANCA Pending Atypical p-ANCA Pending Myeloperoxidase Ab Pending Double Strand DNA Ab <1 Glomerular Base Memb Ab Pending Hepatitis A Ab Total Negative Hep Bs Antigen Negative Hep Bs Antibody Reactive Hep B Core Total Ab Negative Impression 1. YOCASTA 2. CKD 3. volume overload 4. HTN poorly controlled 5. CHF 6. DM 7. hx bipolar 8. gout 9. PNA 10. left hydro on ultrasound Plan - renal function is worsening - cxr shows congestion - pt is lethargic and has signs of uremia - there is no next of kin to give consent and his emergency contact Lucy Merritt ([phone]) has a disconnected line - will sing 2 PC consent for HD - discussed with primary team - called vascular and arranged for access - perhaps reversing uremia may help his mental status - repeat cxr in am
--- NOTE | 2018-11-21 15:45 | PROC ---
Central Line Insertion - Procedure Note TIME OUT performed prior to this procedure with verbal confirmation of correct patient identity, correct side, agreement of the procedure, correct patient position, availability of necessary equipment. The 2 MD consent obtained by Drs. Raphael and Esha. Risk of possible infection, bleeding and pneumothorax have been discussed. Safety precautions based on patient history or medication use has been addressed. Indication: Poor Venous Access, Other (Fluid overloaded, obtunded and needs HD) Consent on Chart: Yes Central Line: Dialysis Cath, Tri Lumen Position: Supine Area prepped with Chlorhexidine solution then draped using sterile barrier protection. Anesthesia: Lidocaine 1% Technique used: Seldinger Ultrasound Guided Assistance: Yes Site: Right Internal Jugular Dark venous non-pulsatile flow noted from hub of needle. The catheter was introduced. Guide wire removed intact. Each port aspirated then flushed with sterile normal saline and TEGU pressure caps secured. Line secured to skin with nylon suture. Biopatch placed around base of line. Sterile occlusive dressing applied. No complications. Patient tolerated the procedure well. STAT chest xray ordered to confirm position and rule out pneumothorax
[2018-11-21] MEDS: ATORVASTATIN CA 40 MG TABLET (FP) PO SCH ×2 (22:52→23:00)
[2018-11-22] MEDS: hydrALAZINE HCL 50 MG TABLET (FP) PO SCH ×3 (07:01→21:44)
[2018-11-22] MEDS: HEPARIN NA (PORCINE) 5,000 UNITS/ML 1ML VIAL SQ SCH ×3 (07:01→21:45)
[2018-11-22] MEDS: INSULIN SLIDING SCALE (NOVOLOG) 1 VIAL SQ SCH ×4 (07:01→21:45)
[2018-11-22 07:04] LABS: BASO % 0.5 % (0-2.0); EOS % 4.8 % (0-4.5); HEMATOCRIT 24.4 % (35.4-49); HEMOGLOBIN 8.1 GM/dL (11.7-16.9); LYMPH % 4.8 % (8-40); MCH 24.8 pg (25.7-33.7); MCHC 33.3 g/dl (32.0-35.9); MEAN CELL VOLUME 74.3 fl (80-96); MEAN PLT VOLUME 8.1 fl (7.5-11.1); MONO % 8.3 % (3.8-10.2); NEUT % 81.6 % (42.8-82.8); PLATELET COUNT 318 K/MM3 (134-434); RBC 3.28 M/mm3 (4.00-5.60); RDW 20.6 % (11.9-15.9); WHITE BLOOD COUNT 9.3 K/mm3 (4.0-10.0)
[2018-11-22 07:28] LABS: ALBUMIN 1.8 g/dl (3.4-5.0); ALK PHOS 113 U/L (45-117); ANION GAP 14 MMOL/L (8-16); BILIRUBIN,TOTAL 0.3 mg/dL (0.2-1); BLOOD UREA NITROGEN 70 mg/dL (7-18); CALCIUM 7.4 mg/dL (8.5-10.1); CHLORIDE 100 mmol/L (98-107); CO2 24 mmol/L (21-32); CREATININE 7.3 mg/dL (0.55-1.3); GLUCOSE,RANDOM 80 mg/dL (74-106); SGOT/AST 52 U/L (15-37); SGPT/ALT 36 U/L (13-61); SODIUM 137 mmol/L (136-145); TOT PROT 5.3 g/dl (6.4-8.2)
[2018-11-22] MEDS ORDERED: SODIUM CHLORIDE 250 ML IV PRN (07:45)
[2018-11-22] MEDS: ARIPiprazole 10 MG TABLET PO SCH (10:00)
[2018-11-22] MEDS: CARVEDILOL 25 MG TABLET (FP) PO SCH ×2 (10:00→21:44)
[2018-11-22] MEDS: NIFEdipine E.R 60 MG TABLET (UD) PO SCH (10:00)
--- NOTE | 2018-11-22 10:43 | PN ---
Progress Note, Physician History of Present Illness: pulmonary lethargic difficult to arouse,not using bipap. pt started on HD by renal - Current Medication List Current Medications: Active Medications Aripiprazole (Abilify) 10 mg PO DAILY [facility] Atorvastatin Calcium (Lipitor -) 40 mg PO HS [facility] Carvedilol (Coreg -) 25 mg PO BID [facility] Heparin Sodium (Porcine) (Heparin -) 5,000 unit SQ TID [facility] Hydralazine HCl (Apresoline -) 100 mg PO TID [facility] Sodium Chloride (Normal Saline -) 250 mls @ 3,000 mls/hr IV PRN PRN PRN Reason: Hypotension during Dialysis Stop: 11/23/18 07:45 Azithromycin (Zithromax 500mg Ivpb (Pre-Docked)) 500 mg in 250 mls @ 250 mls/ hr IVPB DAILY [facility] Ceftriaxone Sodium 2 gm/ (Dextrose) 100 mls @ 200 mls/hr IVPB DAILY [facility]; Protocol Insulin Aspart (Novolog Vial Sliding Scale -) 1 vial SQ ACHS [facility]; Protocol Nifedipine (Procardia Xl -) 60 mg PO DAILY [facility] - Objective Vital Signs: Vital Signs Temperature 97.7 F 11/22/18 06:00 Pulse Rate 98 H 11/22/18 09:52 Respiratory Rate 26 H 11/22/18 09:52 Blood Pressure 138/76 11/22/18 09:52 O2 Sat by Pulse Oximetry (%) 94 L 11/22/18 09:00 Constitutional: Yes: Well Nourished, Other (sleepy) Eyes: Yes: WNL HENT: Yes: WNL Cardiovascular: Yes: Regular Rate and Rhythm, S1, S2 Respiratory: Yes: Diminished Gastrointestinal: Yes: Normal Bowel Sounds, Soft Extremities: Yes: WNL Edema: Yes Labs: CBC, BMP 11/22/18 05:30 11/22/18 05:30 INR, PTT INR 1.24 (0.83-1.09) H 11/16/18 19:09 - ....Imaging Chest X-ray: Report Reviewed, Image Reviewed Problem List - Problems (1) Elevated troponin Code(s): R74.8 - ABNORMAL LEVELS OF OTHER SERUM ENZYMES (2) Hypertensive emergency Code(s): I16.1 - HYPERTENSIVE EMERGENCY (3) Morbid (severe) obesity due to excess calories Code(s): E66.01 - MORBID (SEVERE) OBESITY DUE TO EXCESS CALORIES (4) CKD (chronic kidney disease) Code(s): N18.9 - CHRONIC KIDNEY DISEASE, UNSPECIFIED (5) CHF (congestive heart failure) Code(s): I50.9 - HEART FAILURE, UNSPECIFIED Qualifiers: Heart failure type: unspecified Heart failure chronicity: acute on chronic Qualified Code(s): I50.9 - Heart failure, unspecified (6) Diabetes Code(s): E11.9 - TYPE 2 DIABETES MELLITUS WITHOUT COMPLICATIONS (7) Dyspnea Code(s): R06.00 - DYSPNEA, UNSPECIFIED (8) Hypertension Code(s): I10 - ESSENTIAL (PRIMARY) HYPERTENSION (9) Hypertensive urgency Code(s): I16.0 - HYPERTENSIVE URGENCY (10) Non compliance w medication regimen Code(s): Z91.14 - PATIENT'S OTHER NONCOMPLIANCE WITH MEDICATION REGIMEN (11) MOLLY (obstructive sleep apnea) Code(s): G47.33 - OBSTRUCTIVE SLEEP APNEA (ADULT) (PEDIATRIC) Assessment/Plan IMP S/P HYPERTENSIVE URGENCY DYSPNEA ACUTE ON CHRONIC CHF ? PNEUMONIA ACUTE ON CHRONIC KIDNEY DISEASE LIKELY OSAS MORBID OBESITY SEVERE ANEMIA + TROPONIN DM PLAN HD PER RENAL O2 ABX NIPPV NEEEDED AND HS MONITOR LYTES,RENAL FUNCTION F/U CHEST X-RAYS DAILY WT OUTPATIENT SLEEP STUDY MONITOR H+H NORMAL TRANSFUSION THRESHOLD DR MONTELONGO Problem List - Problems (1) Elevated troponin Code(s): R74.8 - ABNORMAL LEVELS OF OTHER SERUM ENZYMES (2) Hypertensive emergency Code(s): I16.1 - HYPERTENSIVE EMERGENCY (3) Morbid (severe) obesity due to excess calories Code(s): E66.01 - MORBID (SEVERE) OBESITY DUE TO EXCESS CALORIES (4) CKD (chronic kidney disease) Code(s): N18.9 - CHRONIC KIDNEY DISEASE, UNSPECIFIED (5) CHF (congestive heart failure) Code(s): I50.9 - HEART FAILURE, UNSPECIFIED Qualifiers: Heart failure type: unspecified Heart failure chronicity: acute on chronic Qualified Code(s): I50.9 - Heart failure, unspecified (6) Diabetes Code(s): E11.9 - TYPE 2 DIABETES MELLITUS WITHOUT COMPLICATIONS (7) Dyspnea Code(s): R06.00 - DYSPNEA, UNSPECIFIED (8) Hypertension Code(s): I10 - ESSENTIAL (PRIMARY) HYPERTENSION (9) Hypertensive urgency Code(s): I16.0 - HYPERTENSIVE URGENCY (10) Non compliance w medication regimen Code(s): Z91.14 - PATIENT'S OTHER NONCOMPLIANCE WITH MEDICATION REGIMEN (11) MOLLY (obstructive sleep apnea) Code(s): G47.33 - OBSTRUCTIVE SLEEP APNEA (ADULT) (PEDIATRIC)
--- NOTE | 2018-11-22 11:09 | PN ---
Physical Exam: SUBJECTIVE: receiving dialysis. awake, lethargic. eyes open. attempting to talk OBJECTIVE: getting dialysis Vital Signs Period Temp Pulse Resp BP Sys/Castillo Pulse Ox Last 24 Hr 97.1 F-98.2 F 78-988 18-36 96-146/51-87 94-99 GENERAL: The patient is awake, attempting to talk, confused HEAD: Normal with no signs of trauma. EYES: PERRL, extraocular movements intact, sclera anicteric, conjunctiva clear. No ptosis. ENT: Ears normal, nares patent, oropharynx clear without exudates, moist mucous membranes. NECK: Trachea midline, full range of motion, supple. LUNGS: Breath sounds equal, clear to auscultation bilaterally, no wheezes, no crackles, no accessory muscle use. HEART: Regular rate and rhythm, S1, S2 without murmur, rub or gallop. ABDOMEN: obese abd. EXTREMITIES: 2+ pulses, warm, well-perfused, no edema. NEUROLOGICAL: Cranial nerves II through XII grossly intact. Normal speech, gait not observed. PSYCH: Normal mood, normal affect. SKIN: Warm, dry, normal turgor, no rashes or lesions noted Laboratory Results - last 24 hr 11/18/18 11/18/18 11/21/18 05:30 10:00 11:44 WBC RBC Hgb Hct MCV MCH MCHC RDW Plt Count MPV Absolute Neuts (auto) Neutrophils % Lymphocytes % Monocytes % Eosinophils % Basophils % Nucleated RBC % Sodium Potassium Chloride Carbon Dioxide Anion Gap BUN Creatinine Creat Clearance w eGFR POC Glucometer 100 Random Glucose Calcium Total Bilirubin AST ALT Alkaline Phosphatase Total Protein Albumin AURE Screen Negative Double Strand DNA Ab <1 Blood Type A POSITIVE Antibody Screen Negative Crossmatch See Detail 11/21/18 11/21/18 11/22/18 17:15 23:05 05:30 WBC 9.3 RBC 3.28 L Hgb 8.1 L Hct 24.4 L MCV 74.3 L MCH 24.8 L MCHC 33.3 RDW 20.6 H Plt Count 318 MPV 8.1 Absolute Neuts (auto) 7.6 Neutrophils % 81.6 Lymphocytes % 4.8 L D Monocytes % 8.3 Eosinophils % 4.8 H Basophils % 0.5 Nucleated RBC % 0 Sodium Potassium Chloride Carbon Dioxide Anion Gap BUN Creatinine Creat Clearance w eGFR POC Glucometer 107 76 Random Glucose Calcium Total Bilirubin AST ALT Alkaline Phosphatase Total Protein Albumin AURE Screen Double Strand DNA Ab Blood Type Antibody Screen Crossmatch 11/22/18 11/22/18 05:30 07:00 WBC RBC Hgb Hct MCV MCH MCHC RDW Plt Count MPV Absolute Neuts (auto) Neutrophils % Lymphocytes % Monocytes % Eosinophils % Basophils % Nucleated RBC % Sodium 137 Potassium 4.0 Chloride 100 Carbon Dioxide 24 Anion Gap 14 BUN 70 H Creatinine 7.3 H Creat Clearance w eGFR 7.80 POC Glucometer 77 Random Glucose 80 Calcium 7.4 L Total Bilirubin 0.3 AST 52 H ALT 36 Alkaline Phosphatase 113 Total Protein 5.3 L Albumin 1.8 L AURE Screen Double Strand DNA Ab Blood Type Antibody Screen Crossmatch Active Medications Generic Name Dose Route Start Last Admin Trade Name Freq PRN Reason Stop Dose Admin Aripiprazole 10 mg 11/22/18 10:00 Abilify PO DAILY [facility] Atorvastatin Calcium 40 mg 11/22/18 22:00 Lipitor - PO HS [facility] Carvedilol 25 mg 11/22/18 10:00 Coreg - PO BID [facility] Heparin Sodium (Porcine) 5,000 unit 11/22/18 14:00 Heparin - SQ TID [facility] Hydralazine HCl 100 mg 11/22/18 14:00 Apresoline - PO TID [facility] Sodium Chloride 250 mls @ 3,000 mls/hr 11/22/18 07:45 Normal Saline - IV 11/23/18 07:45 PRN PRN Hypotension during Dialysis Azithromycin 500 mg in 250 mls @ 250 mls/hr 11/22/18 10:00 Zithromax 500mg Ivpb (Pre-Docked) IVPB DAILY [facility] Ceftriaxone Sodium 2 gm/ 100 mls @ 200 mls/hr 11/22/18 10:00 Dextrose IVPB DAILY [facility] Protocol Insulin Aspart 1 vial 11/22/18 11:00 Novolog Vial Sliding Scale - SQ ACHS [facility] Protocol Nifedipine 60 mg 11/22/18 10:00 Procardia Xl - PO DAILY [facility] ASSESSMENT/PLAN: Patient is a 58 year old male with a significant past medical history of diastolic CHF, bipolar disorder, depression/anxiety, arthritis, NIDDM, HTN, HLD , gout, CKD stage 4 presented with acute shortness of breath and orthopnea. Card: Hypertensive emergency BP elevated on admission. Improving On Procardia xl 60mg daily, hydralazine 100mg tid, coreq 25mg bid. Monitor BP elevated troponin In the setting of ckd. monitor on tele. ID: Sepsis Likely secondary to pneumonia Pulmonary following On supplemental oxygen with bipap On ceftriaxone, zithromax, albuterol nebs as needed Neuro: Acute metabolic encephalopathy secondary to uremia/acute kidney injury BUN/creatinine continue to worsen Started dialysis today Improvement of mental status Bipolar disorder. on ability. Endocrine diabetes, monitor bgms. Novolog SS Heme: Anemia. s/p 2 units of prbc fen no ivf monitor electrolytes renal diet heparin Visit type - Emergency Visit Emergency Visit: Yes ED Registration Date: 11/16/18 Care time: The patient presented to the Emergency Department on the above date and was hospitalized for further evaluation of their emergent condition. - New Patient This patient is new to me today: Yes Date on this admission: 11/22/18 - Critical Care Critical Care patient: No - Discharge Referral Referred to [facility] No
[2018-11-22 11:20] LABS: ANISOCYTOSIS 1+; MACROCYTOSIS 0; PLATELET ESTIMATE NORMAL
--- NOTE | 2018-11-22 11:57 | PN ---
Progress Note, Physician History of Present Illness: Pt seen and examined at bedside. He tolerated HD yesterday and is getting anther session today. He is more arousible today. - Current Medication List Current Medications: Active Medications Aripiprazole (Abilify) 10 mg PO DAILY [facility] Atorvastatin Calcium (Lipitor -) 40 mg PO HS [facility] Carvedilol (Coreg -) 25 mg PO BID [facility] Heparin Sodium (Porcine) (Heparin -) 5,000 unit SQ TID [facility] Hydralazine HCl (Apresoline -) 100 mg PO TID [facility] Sodium Chloride (Normal Saline -) 250 mls @ 3,000 mls/hr IV PRN PRN PRN Reason: Hypotension during Dialysis Stop: 11/23/18 07:45 Azithromycin (Zithromax 500mg Ivpb (Pre-Docked)) 500 mg in 250 mls @ 250 mls/ hr IVPB DAILY [facility] Ceftriaxone Sodium 2 gm/ (Dextrose) 100 mls @ 200 mls/hr IVPB DAILY [facility]; Protocol Insulin Aspart (Novolog Vial Sliding Scale -) 1 vial SQ ACHS [facility]; Protocol Nifedipine (Procardia Xl -) 60 mg PO DAILY [facility] - Objective Vital Signs: Vital Signs Temperature 98 F 11/22/18 09:20 Pulse Rate 95 H 11/22/18 10:30 Respiratory Rate 18 11/22/18 10:30 Blood Pressure 140/99 11/22/18 10:30 O2 Sat by Pulse Oximetry (%) 94 L 11/22/18 09:00 Constitutional: Yes: Calm Eyes: Yes: Conjunctiva Clear Cardiovascular: Yes: S1, S2 Respiratory: Yes: On Nasal O2 Gastrointestinal: Yes: Soft, Abdomen, Obese Genitourinary: Yes: Hopkins Present Musculoskeletal: Yes: Muscle Weakness Edema: Yes Edema: LLE: Trace, RLE: Trace Neurological: Yes: Lethargy Labs: CBC, BMP 11/22/18 05:30 11/22/18 05:30 INR, PTT INR 1.24 (0.83-1.09) H 11/16/18 19:09 Problem List - Problems (1) Elevated troponin Code(s): R74.8 - ABNORMAL LEVELS OF OTHER SERUM ENZYMES (2) CKD (chronic kidney disease) Code(s): N18.9 - CHRONIC KIDNEY DISEASE, UNSPECIFIED (3) YOCASTA (acute kidney injury) Code(s): N17.9 - ACUTE KIDNEY FAILURE, UNSPECIFIED (4) CHF (congestive heart failure) Code(s): I50.9 - HEART FAILURE, UNSPECIFIED Qualifiers: Heart failure type: unspecified Heart failure chronicity: acute on chronic Qualified Code(s): I50.9 - Heart failure, unspecified Assessment/Plan Current Medications Generic Name Dose Route Start Last Admin Trade Name Freq PRN Reason Stop Dose Admin Aripiprazole 10 mg 11/22/18 10:00 Abilify PO DAILY [facility] Atorvastatin Calcium 40 mg 11/22/18 22:00 Lipitor - PO HS [facility] Carvedilol 25 mg 11/22/18 10:00 Coreg - PO BID [facility] Heparin Sodium (Porcine) 5,000 unit 11/22/18 14:00 Heparin - SQ TID [facility] Hydralazine HCl 100 mg 11/22/18 14:00 Apresoline - PO TID [facility] Sodium Chloride 250 mls @ 3,000 mls/hr 11/22/18 07:45 Normal Saline - IV 11/23/18 07:45 PRN PRN Hypotension during Dialysis Azithromycin 500 mg in 250 mls @ 250 mls/hr 11/22/18 10:00 Zithromax 500mg Ivpb (Pre-Docked) IVPB DAILY [facility] Ceftriaxone Sodium 2 gm/ 100 mls @ 200 mls/hr 11/22/18 10:00 Dextrose IVPB DAILY [facility] Protocol Insulin Aspart 1 vial 11/22/18 11:00 Novolog Vial Sliding Scale - SQ ACHS [facility] Protocol Nifedipine 60 mg 11/22/18 10:00 Procardia Xl - PO DAILY [facility] Impression 1. YOCASTA 2. CKD 3. volume overload 4. HTN poorly controlled 5. CHF 6. DM 7. hx bipolar 8. gout 9. PNA 10. left hydro on ultrasound Plan - HD again today with more UF - repeat labs in am - monitor mental status - monitor hg - repeat cxr after HD
[2018-11-22 12:26] LABS: ANTIGLOMERULAR BASEMENT MEN.AB 4 units (0-20)
[2018-11-22] MEDS ORDERED: DEXTROSE 5%-WATER 100 ML IVPB ONE (18:45)
[2018-11-22] MEDS: AZITHROMYCIN IVPB 500 MG/250 ML BAG IVPB SCH (18:46)
[2018-11-22] MEDS: CEFTRIAXONE 2 GM in DEXTROSE 5%-WATER 100 ML IVPB SCH (18:46)
[2018-11-22 19:16] LABS: ATYPICAL pANCA <1:20 titer (Neg:<1:20); C-ANCA <1:20 titer (Neg:<1:20); P-ANCA <1:20 titer (Neg:<1:20)
[2018-11-22] MEDS: ATORVASTATIN CA 40 MG TABLET (FP) PO SCH (21:44)
[2018-11-23] MEDS: hydrALAZINE HCL 50 MG TABLET (FP) PO SCH ×4 (05:15→23:06)
[2018-11-23] MEDS: HEPARIN NA (PORCINE) 5,000 UNITS/ML 1ML VIAL SQ SCH ×3 (05:15→23:05)
[2018-11-23] MEDS: INSULIN SLIDING SCALE (NOVOLOG) 1 VIAL SQ SCH ×4 (06:20→23:06)
[2018-11-23 07:42] LABS: BASO % 0.8 % (0-2.0); EOS % 4.3 % (0-4.5); HEMATOCRIT 26.6 % (35.4-49); HEMOGLOBIN 8.8 GM/dL (11.7-16.9); MCH 24.8 pg (25.7-33.7); MCHC 32.9 g/dl (32.0-35.9); MEAN CELL VOLUME 75.3 fl (80-96); MEAN PLT VOLUME 8.2 fl (7.5-11.1); MONO % 10.8 % (3.8-10.2); NEUT % 77.1 % (42.8-82.8); PLATELET COUNT 360 K/MM3 (134-434); RBC 3.53 M/mm3 (4.00-5.60); RDW 21.5 % (11.9-15.9); WHITE BLOOD COUNT 9.3 K/mm3 (4.0-10.0)
[2018-11-23 08:35] LABS: ALBUMIN 1.9 g/dl (3.4-5.0); ALK PHOS 114 U/L (45-117); ANION GAP 13 MMOL/L (8-16); BILIRUBIN,TOTAL 0.2 mg/dL (0.2-1); BLOOD UREA NITROGEN 46 mg/dL (7-18); CALCIUM 7.8 mg/dL (8.5-10.1); CHLORIDE 101 mmol/L (98-107); CO2 25 mmol/L (21-32); CREATININE 6.2 mg/dL (0.55-1.3); GLUCOSE,RANDOM 90 mg/dL (74-106); MAGNESIUM 2.1 mg/dL (1.8-2.4); POTASSIUM 4.2 mmol/L (3.5-5.1); SGOT/AST 66 U/L (15-37); SGPT/ALT 31 U/L (13-61); SODIUM 139 mmol/L (136-145); TOT PROT 6.1 g/dl (6.4-8.2)
[2018-11-23] MEDS ORDERED: PT OWN MED DRAWER 7, Y5N ONE (08:45)
[2018-11-23] MEDS ORDERED: DEXTROSE 5%-WATER 100 ML IVPB ONE ×2 (08:48→08:50)
[2018-11-23] MEDS: ARIPiprazole 10 MG TABLET PO SCH (09:21)
[2018-11-23] MEDS: CEFTRIAXONE 2 GM in DEXTROSE 5%-WATER 100 ML IVPB SCH (09:21)
[2018-11-23] MEDS: CARVEDILOL 25 MG TABLET (FP) PO SCH ×2 (09:21→23:06)
[2018-11-23] MEDS: NIFEdipine E.R 60 MG TABLET (UD) PO SCH (09:21)
[2018-11-23] MEDS: AZITHROMYCIN IVPB 500 MG/250 ML BAG IVPB SCH (09:22)
--- NOTE | 2018-11-23 10:30 | PN ---
Progress Note, Physician History of Present Illness: pulmonary more responsive today,-resp distress - Current Medication List Current Medications: Active Medications Aripiprazole (Abilify) 10 mg PO DAILY [facility] Last Admin: 11/23/18 09:21 Dose: Not Given Atorvastatin Calcium (Lipitor -) 40 mg PO HS [facility] Last Admin: 11/22/18 21:44 Dose: 40 mg Carvedilol (Coreg -) 25 mg PO BID [facility] Last Admin: 11/23/18 09:21 Dose: Not Given Heparin Sodium (Porcine) (Heparin -) 5,000 unit SQ TID [facility] Last Admin: 11/23/18 05:15 Dose: 5,000 unit Hydralazine HCl (Apresoline -) 100 mg PO TID [facility] Last Admin: 11/23/18 05:24 Dose: Not Given Sodium Chloride (Normal Saline -) 250 mls @ 3,000 mls/hr IV PRN PRN PRN Reason: Hypotension during Dialysis Stop: 11/23/18 07:45 Azithromycin (Zithromax 500mg Ivpb (Pre-Docked)) 500 mg in 250 mls @ 250 mls/ hr IVPB DAILY [facility] Last Admin: 11/23/18 09:22 Dose: 250 mls/hr Ceftriaxone Sodium 2 gm/ (Dextrose) 100 mls @ 200 mls/hr IVPB DAILY [facility]; Protocol Last Admin: 11/23/18 09:21 Dose: 200 mls/hr Insulin Aspart (Novolog Vial Sliding Scale -) 1 vial SQ ACHS [facility]; Protocol Last Admin: 11/23/18 06:20 Dose: Not Given Nifedipine (Procardia Xl -) 60 mg PO DAILY [facility] Last Admin: 11/23/18 09:21 Dose: Not Given - Objective Vital Signs: Vital Signs Temperature 97.9 F 11/23/18 09:00 Pulse Rate 98 H 11/23/18 09:00 Respiratory Rate 22 H 11/23/18 09:00 Blood Pressure 118/64 11/23/18 09:00 O2 Sat by Pulse Oximetry (%) 96 11/23/18 02:02 Constitutional: Yes: Well Nourished, Calm Eyes: Yes: WNL HENT: Yes: WNL Neck: Yes: WNL Cardiovascular: Yes: Regular Rate and Rhythm, S1, S2 Respiratory: Yes: Diminished Gastrointestinal: Yes: Normal Bowel Sounds, Soft Extremities: Yes: WNL Edema: Yes Labs: CBC, BMP 11/23/18 06:30 11/23/18 06:30 INR, PTT INR 1.24 (0.83-1.09) H 11/16/18 19:09 Problem List - Problems (1) Elevated troponin Code(s): R74.8 - ABNORMAL LEVELS OF OTHER SERUM ENZYMES (2) Hypertensive emergency Code(s): I16.1 - HYPERTENSIVE EMERGENCY (3) Morbid (severe) obesity due to excess calories Code(s): E66.01 - MORBID (SEVERE) OBESITY DUE TO EXCESS CALORIES (4) CKD (chronic kidney disease) Code(s): N18.9 - CHRONIC KIDNEY DISEASE, UNSPECIFIED (5) CHF (congestive heart failure) Code(s): I50.9 - HEART FAILURE, UNSPECIFIED Qualifiers: Heart failure type: unspecified Heart failure chronicity: acute on chronic Qualified Code(s): I50.9 - Heart failure, unspecified (6) Diabetes Code(s): E11.9 - TYPE 2 DIABETES MELLITUS WITHOUT COMPLICATIONS (7) Dyspnea Code(s): R06.00 - DYSPNEA, UNSPECIFIED (8) Hypertension Code(s): I10 - ESSENTIAL (PRIMARY) HYPERTENSION (9) Hypertensive urgency Code(s): I16.0 - HYPERTENSIVE URGENCY (10) Non compliance w medication regimen Code(s): Z91.14 - PATIENT'S OTHER NONCOMPLIANCE WITH MEDICATION REGIMEN (11) MOLLY (obstructive sleep apnea) Code(s): G47.33 - OBSTRUCTIVE SLEEP APNEA (ADULT) (PEDIATRIC) Assessment/Plan IMP S/P HYPERTENSIVE URGENCY DYSPNEA improving ACUTE ON CHRONIC CHF improving ? PNEUMONIA ACUTE ON CHRONIC KIDNEY DISEASE LIKELY OSAS MORBID OBESITY SEVERE ANEMIA + TROPONIN DM PLAN HD PER RENAL O2 ABX NIPPV NEEEDED AND HS MONITOR LYTES,RENAL FUNCTION F/U CHEST X-RAYS DAILY WT OUTPATIENT SLEEP STUDY MONITOR H+H NORMAL TRANSFUSION THRESHOLD DR MONTELONGO Problem List - Problems (1) Elevated troponin Code(s): R74.8 - ABNORMAL LEVELS OF OTHER SERUM ENZYMES (2) Hypertensive emergency Code(s): I16.1 - HYPERTENSIVE EMERGENCY (3) Morbid (severe) obesity due to excess calories Code(s): E66.01 - MORBID (SEVERE) OBESITY DUE TO EXCESS CALORIES (4) CKD (chronic kidney disease) Code(s): N18.9 - CHRONIC KIDNEY DISEASE, UNSPECIFIED (5) CHF (congestive heart failure) Code(s): I50.9 - HEART FAILURE, UNSPECIFIED Qualifiers: Heart failure type: unspecified Heart failure chronicity: acute on chronic Qualified Code(s): I50.9 - Heart failure, unspecified (6) Diabetes Code(s): E11.9 - TYPE 2 DIABETES MELLITUS WITHOUT COMPLICATIONS (7) Dyspnea Code(s): R06.00 - DYSPNEA, UNSPECIFIED (8) Hypertension Code(s): I10 - ESSENTIAL (PRIMARY) HYPERTENSION (9) Hypertensive urgency Code(s): I16.0 - HYPERTENSIVE URGENCY (10) Non compliance w medication regimen Code(s): Z91.14 - PATIENT'S OTHER NONCOMPLIANCE WITH MEDICATION REGIMEN (11) MOLLY (obstructive sleep apnea) Code(s): G47.33 - OBSTRUCTIVE SLEEP APNEA (ADULT) (PEDIATRIC)
--- NOTE | 2018-11-23 11:15 | PN ---
Physical Exam: SUBJECTIVE: Patient seen and examined at the bedside. refusing to take his medications per verbal RN report OBJECTIVE: Vital Signs Period Temp Pulse Resp BP Sys/Castillo Pulse Ox Last 24 Hr 97.9 F-98.2 F 50-102 18-24 118-150/49-100 96-96 GENERAL: The patient is awake, episodes of confusion HEAD: Normal with no signs of trauma. EYES: PERRL, extraocular movements intact, sclera anicteric, conjunctiva clear. No ptosis. ENT: Ears normal, nares patent, oropharynx clear without exudates, moist mucous membranes. NECK: Trachea midline, full range of motion, supple. LUNGS: Breath sounds equal, clear to auscultation bilaterally, no wheezes, no crackles, no accessory muscle use. HEART: Regular rate and rhythm, S1, S2 without murmur, rub or gallop. ABDOMEN: obese abd. EXTREMITIES: 2+ pulses, warm, well-perfused, no edema. NEUROLOGICAL: Cranial nerves II through XII grossly intact. Normal speech, gait not observed. PSYCH: Normal mood, normal affect. SKIN: Warm, dry, normal turgor, no rashes or lesions noted Laboratory Results - last 24 hr 11/18/18 11/22/18 11/22/18 05:30 05:30 12:34 WBC RBC Hgb Hct MCV MCH MCHC RDW Plt Count MPV Absolute Neuts (auto) Neutrophils % Lymphocytes % Monocytes % Eosinophils % Basophils % Nucleated RBC % Hypochromia 0 Platelet Estimate Normal Polychromasia 1+ Poikilocytosis 1+ Anisocytosis 1+ Microcytosis 1+ Macrocytosis 0 Sodium Potassium Chloride Carbon Dioxide Anion Gap BUN Creatinine Creat Clearance w eGFR POC Glucometer 123 Random Glucose Calcium Magnesium Total Bilirubin AST ALT Alkaline Phosphatase Total Protein Albumin c-ANCA <1:20 Proteinase 3 (PR3) <3.5 p-ANCA <1:20 Atypical p-ANCA <1:20 Myeloperoxidase Ab <9.0 Glomerular Base Memb Ab 4 11/22/18 11/22/18 11/23/18 18:11 21:43 05:21 WBC RBC Hgb Hct MCV MCH MCHC RDW Plt Count MPV Absolute Neuts (auto) Neutrophils % Lymphocytes % Monocytes % Eosinophils % Basophils % Nucleated RBC % Hypochromia Platelet Estimate Polychromasia Poikilocytosis Anisocytosis Microcytosis Macrocytosis Sodium Potassium Chloride Carbon Dioxide Anion Gap BUN Creatinine Creat Clearance w eGFR POC Glucometer 172 96 92 Random Glucose Calcium Magnesium Total Bilirubin AST ALT Alkaline Phosphatase Total Protein Albumin c-ANCA Proteinase 3 (PR3) p-ANCA Atypical p-ANCA Myeloperoxidase Ab Glomerular Base Memb Ab 11/23/18 11/23/18 06:30 06:30 WBC 9.3 RBC 3.53 L Hgb 8.8 L Hct 26.6 L MCV 75.3 L MCH 24.8 L MCHC 32.9 RDW 21.5 H Plt Count 360 MPV 8.2 Absolute Neuts (auto) 7.2 Neutrophils % 77.1 Lymphocytes % 7.0 L D Monocytes % 10.8 H Eosinophils % 4.3 Basophils % 0.8 Nucleated RBC % 0 Hypochromia Platelet Estimate Polychromasia Poikilocytosis Anisocytosis Microcytosis Macrocytosis Sodium 139 Potassium 4.2 Chloride 101 Carbon Dioxide 25 Anion Gap 13 BUN 46 H Creatinine 6.2 H Creat Clearance w eGFR 9.41 POC Glucometer Random Glucose 90 Calcium 7.8 L Magnesium 2.1 Total Bilirubin 0.2 AST 66 H ALT 31 Alkaline Phosphatase 114 Total Protein 6.1 L Albumin 1.9 L c-ANCA Proteinase 3 (PR3) p-ANCA Atypical p-ANCA Myeloperoxidase Ab Glomerular Base Memb Ab Active Medications Generic Name Dose Route Start Last Admin Trade Name Freq PRN Reason Stop Dose Admin Aripiprazole 10 mg 11/22/18 10:00 11/23/18 09:21 Abilify PO Not Given DAILY [facility] Atorvastatin Calcium 40 mg 11/22/18 22:00 11/22/18 21:44 Lipitor - PO 40 mg HS [facility] Administration Carvedilol 25 mg 11/22/18 10:00 11/23/18 09:21 Coreg - PO Not Given BID [facility] Heparin Sodium (Porcine) 5,000 unit 11/22/18 14:00 11/23/18 05:15 Heparin - SQ 5,000 unit TID [facility] Administration Hydralazine HCl 100 mg 11/22/18 14:00 11/23/18 05:24 Apresoline - PO Not Given TID R[facility] Sodium Chloride 250 mls @ 3,000 mls/hr 11/22/18 07:45 Normal Saline - IV 11/23/18 07:45 PRN PRN Hypotension during Dialysis Azithromycin 500 mg in 250 mls @ 250 mls/hr 11/22/18 10:00 11/23/18 09:22 Zithromax 500mg Ivpb (Pre-Docked) IVPB 250 mls/hr DAILY [facility] Administration Ceftriaxone Sodium 2 gm/ 100 mls @ 200 mls/hr 11/22/18 10:00 11/23/18 09:21 Dextrose IVPB 200 mls/hr DAILY [facility] Administration Protocol Insulin Aspart 1 vial 11/22/18 11:00 11/23/18 06:20 Novolog Vial Sliding Scale - SQ Not Given ACHS [facility] Protocol Nifedipine 60 mg 11/22/18 10:00 11/23/18 09:21 Procardia Xl - PO Not Given DAILY [facility] ASSESSMENT/PLAN: Patient is a 58 year old male with a significant past medical history of diastolic CHF, bipolar disorder, depression/anxiety, arthritis, NIDDM, HTN, HLD , gout, CKD stage 4 presented with acute shortness of breath and orthopnea. Card: Hypertensive emergency BP elevated on admission. Now controlled On Procardia xl 60mg daily, hydralazine 100mg tid, coreq 25mg bid. Monitor BP elevated troponin In the setting of ckd. monitor on tele. ID: Sepsis Likely secondary to pneumonia Pulmonary following On supplemental oxygen with bipap On ceftriaxone, zithromax, albuterol nebs as needed Neuro: Acute metabolic encephalopathy secondary to uremia/acute kidney injury BUN/creatinine continue to worsen Started dialysis Improvement of mental status after HD Bipolar disorder. on ability. Endocrine diabetes, monitor bgms. Novolog SS Heme: Anemia. s/p 2 units of prbc fen no ivf monitor electrolytes renal diet heparin Visit type - Emergency Visit Emergency Visit: Yes ED Registration Date: 11/16/18 Care time: The patient presented to the Emergency Department on the above date and was hospitalized for further evaluation of their emergent condition. - New Patient This patient is new to me today: No - Critical Care Critical Care patient: No - Discharge Referral Referred to [facility] Med P.C.: No
--- NOTE | 2018-11-23 12:43 | PN ---
Progress Note, Physician History of Present Illness: Pt seen and examined at bedside. His mental status is improved. He is aware that he is now on HD. He agrees with the treatment. - Current Medication List Current Medications: Active Medications Aripiprazole (Abilify) 10 mg PO DAILY [facility] Last Admin: 11/23/18 09:21 Dose: Not Given Atorvastatin Calcium (Lipitor -) 40 mg PO HS [facility] Last Admin: 11/22/18 21:44 Dose: 40 mg Carvedilol (Coreg -) 25 mg PO BID [facility] Last Admin: 11/23/18 09:21 Dose: Not Given Heparin Sodium (Porcine) (Heparin -) 5,000 unit SQ TID [facility] Last Admin: 11/23/18 05:15 Dose: 5,000 unit Hydralazine HCl (Apresoline -) 100 mg PO TID [facility] Last Admin: 11/23/18 05:24 Dose: Not Given Sodium Chloride (Normal Saline -) 250 mls @ 3,000 mls/hr IV PRN PRN PRN Reason: Hypotension during Dialysis Stop: 11/23/18 07:45 Azithromycin (Zithromax 500mg Ivpb (Pre-Docked)) 500 mg in 250 mls @ 250 mls/ hr IVPB DAILY [facility] Last Admin: 11/23/18 09:22 Dose: 250 mls/hr Ceftriaxone Sodium 2 gm/ (Dextrose) 100 mls @ 200 mls/hr IVPB DAILY [facility]; Protocol Last Admin: 11/23/18 09:21 Dose: 200 mls/hr Insulin Aspart (Novolog Vial Sliding Scale -) 1 vial SQ ACHS [facility]; Protocol Last Admin: 11/23/18 06:20 Dose: Not Given Nifedipine (Procardia Xl -) 60 mg PO DAILY [facility] Last Admin: 11/23/18 09:21 Dose: Not Given - Objective Vital Signs: Vital Signs Temperature 97.9 F 11/23/18 09:00 Pulse Rate 98 H 11/23/18 09:00 Respiratory Rate 22 H 11/23/18 09:00 Blood Pressure 118/64 11/23/18 09:00 O2 Sat by Pulse Oximetry (%) 96 11/23/18 09:00 Constitutional: Yes: Calm Eyes: Yes: Conjunctiva Clear HENT: Yes: Atraumatic Cardiovascular: Yes: S1, S2 Respiratory: Yes: Diminished Gastrointestinal: Yes: Soft, Abdomen, Obese Genitourinary: Yes: Hopkins Present, Oliguria Musculoskeletal: Yes: Muscle Weakness Edema: LLE: Trace, RLE: Trace Neurological: Yes: Oriented Labs: CBC, BMP 11/23/18 06:30 11/23/18 06:30 INR, PTT INR 1.24 (0.83-1.09) H 11/16/18 19:09 Problem List - Problems (1) Elevated troponin Code(s): R74.8 - ABNORMAL LEVELS OF OTHER SERUM ENZYMES (2) CKD (chronic kidney disease) Code(s): N18.9 - CHRONIC KIDNEY DISEASE, UNSPECIFIED (3) YOCASTA (acute kidney injury) Code(s): N17.9 - ACUTE KIDNEY FAILURE, UNSPECIFIED (4) CHF (congestive heart failure) Code(s): I50.9 - HEART FAILURE, UNSPECIFIED Qualifiers: Heart failure type: unspecified Heart failure chronicity: acute on chronic Qualified Code(s): I50.9 - Heart failure, unspecified Assessment/Plan Current Medications Generic Name Dose Route Start Last Admin Trade Name Freq PRN Reason Stop Dose Admin Aripiprazole 10 mg 11/22/18 10:00 11/23/18 09:21 Abilify PO Not Given DAILY RONALD Atorvastatin Calcium 40 mg 11/22/18 22:00 11/22/18 21:44 Lipitor - PO 40 mg HS RONALD Administration Carvedilol 25 mg 11/22/18 10:00 11/23/18 09:21 Coreg - PO Not Given BID RONALD Heparin Sodium (Porcine) 5,000 unit 11/22/18 14:00 11/23/18 05:15 Heparin - SQ 5,000 unit TID R[facility] Administration Hydralazine HCl 100 mg 11/22/18 14:00 11/23/18 05:24 Apresoline - PO Not Given TID RONALD Sodium Chloride 250 mls @ 3,000 mls/hr 11/22/18 07:45 Normal Saline - IV 11/23/18 07:45 PRN PRN Hypotension during Dialysis Azithromycin 500 mg in 250 mls @ 250 mls/hr 11/22/18 10:00 11/23/18 09:22 Zithromax 500mg Ivpb (Pre-Docked) IVPB 250 mls/hr DAILY [facility] Administration Ceftriaxone Sodium 2 gm/ 100 mls @ 200 mls/hr 11/22/18 10:00 11/23/18 09:21 Dextrose IVPB 200 mls/hr DAILY [facility] Administration Protocol Insulin Aspart 1 vial 11/22/18 11:00 11/23/18 06:20 Novolog Vial Sliding Scale - SQ Not Given ACHS R[facility] Protocol Nifedipine 60 mg 11/22/18 10:00 11/23/18 09:21 Procardia Xl - PO Not Given DAILY RONALD Impression 1. YOCASTA 2. CKD 3. volume overload 4. HTN poorly controlled 5. CHF 6. DM 7. hx bipolar 8. gout 9. PNA 10. left hydro on ultrasound Plan - will arrange for HD tomorrow - monitor renal function - mental status is improving - follow renal workup - monitor hg - cxr yest showed some improvement
[2018-11-23] MEDS ORDERED: SODIUM CHLORIDE 250 ML IV PRN (13:23)
[2018-11-23] MEDS: ATORVASTATIN CA 40 MG TABLET (FP) PO SCH (23:05)
[2018-11-24] MEDS ORDERED: SODIUM CHLORIDE 250 ML IV PRN (01:51)
[2018-11-24] MEDS: hydrALAZINE HCL 50 MG TABLET (FP) PO SCH ×3 (06:14→22:27)
[2018-11-24] MEDS: HEPARIN NA (PORCINE) 5,000 UNITS/ML 1ML VIAL SQ SCH ×3 (06:14→22:28)
[2018-11-24] MEDS: INSULIN SLIDING SCALE (NOVOLOG) 1 VIAL SQ SCH ×4 (06:19→22:29)
[2018-11-24 08:13] LABS: BASO % 0.5 % (0-2.0); EOS % 4.3 % (0-4.5); HEMATOCRIT 25.2 % (35.4-49); HEMOGLOBIN 8.3 GM/dL (11.7-16.9); LYMPH % 6.6 % (8-40); MEAN CELL VOLUME 75.9 fl (80-96); MONO % 8.5 % (3.8-10.2); NEUT % 80.1 % (42.8-82.8); PLATELET COUNT 327 K/MM3 (134-434); RBC 3.32 M/mm3 (4.00-5.60); RDW 21.2 % (11.9-15.9); WHITE BLOOD COUNT 10.8 K/mm3 (4.0-10.0)
[2018-11-24 08:17] LABS: ALBUMIN 1.9 g/dl (3.4-5.0); ALK PHOS 114 U/L (45-117); ANION GAP 13 MMOL/L (8-16); BILIRUBIN,TOTAL 0.4 mg/dL (0.2-1); BLOOD UREA NITROGEN 58 mg/dL (7-18); CALCIUM 7.9 mg/dL (8.5-10.1); CHLORIDE 102 mmol/L (98-107); CO2 24 mmol/L (21-32); GLUCOSE,RANDOM 80 mg/dL (74-106); POTASSIUM 4.1 mmol/L (3.5-5.1); SGOT/AST 37 U/L (15-37); SGPT/ALT 26 U/L (13-61); SODIUM 139 mmol/L (136-145); TOT PROT 6.3 g/dl (6.4-8.2)
[2018-11-24 08:23] LABS: CREATININE 8.2 mg/dL (0.55-1.3)
--- NOTE | 2018-11-24 11:42 | PN ---
Physical Exam: SUBJECTIVE: Patient seen and examined at the bedside. was agitated prior to HD and placed on restraints to avoid him pulling on therapy. OBJECTIVE: dialysis today Vital Signs Period Temp Pulse Resp BP Sys/Castillo Pulse Ox Last 24 Hr 97.9 F-98.4 F 80-106 18-20 117-160/62-100 97-97 GENERAL: The patient is awake, episodes of confusion HEAD: Normal with no signs of trauma. EYES: PERRL, extraocular movements intact, sclera anicteric, conjunctiva clear. No ptosis. ENT: Ears normal, nares patent, oropharynx clear without exudates, moist mucous membranes. NECK: Trachea midline, full range of motion, supple. LUNGS: Breath sounds equal, clear to auscultation bilaterally, no wheezes, no crackles, no accessory muscle use. HEART: Regular rate and rhythm, S1, S2 without murmur, rub or gallop. ABDOMEN: obese abd. EXTREMITIES: 2+ pulses, warm, well-perfused, no edema. NEUROLOGICAL: Cranial nerves II through XII grossly intact. Normal speech, gait not observed. PSYCH: Normal mood, normal affect. SKIN: Warm, dry, normal turgor, no rashes or lesions noted Laboratory Results - last 24 hr 11/23/18 11/23/18 11/24/18 17:35 23:02 06:18 WBC RBC Hgb Hct MCV MCH MCHC RDW Plt Count MPV Absolute Neuts (auto) Neutrophils % Lymphocytes % Monocytes % Eosinophils % Basophils % Nucleated RBC % Sodium Potassium Chloride Carbon Dioxide Anion Gap BUN Creatinine Creat Clearance w eGFR POC Glucometer 100 88 90 Random Glucose Calcium Total Bilirubin AST ALT Alkaline Phosphatase Total Protein Albumin 11/24/18 11/24/18 07:05 07:05 WBC 10.8 H RBC 3.32 L Hgb 8.3 L Hct 25.2 L MCV 75.9 L MCH 25.0 L MCHC 33.0 RDW 21.2 H Plt Count 327 MPV 8.0 Absolute Neuts (auto) 8.7 H Neutrophils % 80.1 Lymphocytes % 6.6 L Monocytes % 8.5 Eosinophils % 4.3 Basophils % 0.5 Nucleated RBC % 0 Sodium 139 Potassium 4.1 Chloride 102 Carbon Dioxide 24 Anion Gap 13 BUN 58 H Creatinine 8.2 H* Creat Clearance w eGFR 6.82 POC Glucometer Random Glucose 80 Calcium 7.9 L Total Bilirubin 0.4 AST 37 ALT 26 Alkaline Phosphatase 114 Total Protein 6.3 L Albumin 1.9 L Active Medications Generic Name Dose Route Start Last Admin Trade Name Freq PRN Reason Stop Dose Admin Aripiprazole 10 mg 11/24/18 10:00 Abilify PO DAILY [facility] Atorvastatin Calcium 40 mg 11/24/18 22:00 Lipitor - PO HS RONALD Carvedilol 25 mg 11/24/18 10:00 Coreg - PO BID [facility] Heparin Sodium (Porcine) 5,000 unit 11/24/18 06:00 11/24/18 06:14 Heparin - SQ 5,000 unit TID [facility] Administration Hydralazine HCl 100 mg 11/24/18 06:00 11/24/18 06:14 Apresoline - PO 100 mg TID [facility]ONALD Administration Sodium Chloride 250 mls @ 3,000 mls/hr 11/24/18 01:51 Normal Saline - IV 11/24/18 13:24 PRN PRN Hypotension during Dialysis Azithromycin 500 mg in 250 mls @ 250 mls/hr 11/24/18 10:00 Zithromax 500mg Ivpb (Pre-Docked) IVPB DAILY [facility] Ceftriaxone Sodium 2 gm/ 100 mls @ 200 mls/hr 11/24/18 10:00 Dextrose IVPB DAILY [facility] Protocol Insulin Aspart 1 vial 11/24/18 07:00 11/24/18 06:19 Novolog Vial Sliding Scale - SQ Not Given ACHS [facility] Protocol Nifedipine 60 mg 11/24/18 10:00 Procardia Xl - PO DAILY [facility] ASSESSMENT/PLAN: Patient is a 58 year old male with a significant past medical history of diastolic CHF, bipolar disorder, depression/anxiety, arthritis, NIDDM, HTN, HLD , gout, CKD stage 4 presented with acute shortness of breath and orthopnea. Card: Hypertensive emergency BP elevated on admission. Now controlled On Procardia xl 60mg daily, hydralazine 100mg tid, coreq 25mg bid. Monitor BP in the setting of kidney disease. elevated troponin In the setting of ckd. evaluated by cardiology. per cardiology, nonischemic pattern, no plans for ischemia workup ID: Sepsis Likely secondary to pneumonia Pulmonary following On supplemental oxygen with bipap On ceftriaxone, zithromax, albuterol nebs as needed Neuro: Acute metabolic encephalopathy secondary to uremia/acute kidney injury BUN/creatinine continue to worsen and now requires dialysis Improvement of mental status after HD Bipolar disorder. on ability. Endocrine diabetes, monitor bgms. Novolog SS Heme: Anemia. s/p 2 units of prbc fen no ivf monitor electrolytes renal diet heparin Visit type - Emergency Visit Emergency Visit: Yes ED Registration Date: 11/16/18 Care time: The patient presented to the Emergency Department on the above date and was hospitalized for further evaluation of their emergent condition. - New Patient This patient is new to me today: No - Critical Care Critical Care patient: No - Discharge Referral Referred to [facility] Med P.C.: No
--- NOTE | 2018-11-24 14:00 | PN ---
Progress Note, Physician History of Present Illness: Pt seen and examined at bedside. He tolerated HD today. He was agitated this morning. - Current Medication List Current Medications: Active Medications Aripiprazole (Abilify) 10 mg PO DAILY [facility] Atorvastatin Calcium (Lipitor -) 40 mg PO HS [facility] Carvedilol (Coreg -) 25 mg PO BID [facility] Heparin Sodium (Porcine) (Heparin -) 5,000 unit SQ TID [facility] Last Admin: 11/24/18 06:14 Dose: 5,000 unit Hydralazine HCl (Apresoline -) 100 mg PO TID [facility] Last Admin: 11/24/18 06:14 Dose: 100 mg Sodium Chloride (Normal Saline -) 250 mls @ 3,000 mls/hr IV PRN PRN PRN Reason: Hypotension during Dialysis Stop: 11/24/18 13:24 Azithromycin (Zithromax 500mg Ivpb (Pre-Docked)) 500 mg in 250 mls @ 250 mls/ hr IVPB DAILY [facility] Ceftriaxone Sodium 2 gm/ (Dextrose) 100 mls @ 200 mls/hr IVPB DAILY [facility]; Protocol Insulin Aspart (Novolog Vial Sliding Scale -) 1 vial SQ ACHS [facility]; Protocol Last Admin: 11/24/18 06:19 Dose: Not Given Nifedipine (Procardia Xl -) 60 mg PO DAILY [facility] - Objective Vital Signs: Vital Signs Temperature 98.4 F 11/24/18 08:30 Pulse Rate 96 H 11/24/18 13:30 Respiratory Rate 18 11/24/18 13:30 Blood Pressure 138/71 11/24/18 13:30 O2 Sat by Pulse Oximetry (%) 97 11/24/18 06:13 Constitutional: Yes: Calm Eyes: Yes: Conjunctiva Clear HENT: Yes: Atraumatic Neck: Yes: Supple Cardiovascular: Yes: S1, S2 Respiratory: Yes: On Nasal O2 Gastrointestinal: Yes: Soft, Abdomen, Obese Genitourinary: Yes: Hopkins Present, Incontinence Musculoskeletal: Yes: Muscle Weakness Edema: No Neurological: Yes: Confusion Labs: CBC, BMP 11/24/18 07:05 11/24/18 07:05 INR, PTT INR 1.24 (0.83-1.09) H 11/16/18 19:09 Problem List - Problems (1) Elevated troponin Code(s): R74.8 - ABNORMAL LEVELS OF OTHER SERUM ENZYMES (2) CKD (chronic kidney disease) Code(s): N18.9 - CHRONIC KIDNEY DISEASE, UNSPECIFIED (3) YOCASTA (acute kidney injury) Code(s): N17.9 - ACUTE KIDNEY FAILURE, UNSPECIFIED (4) CHF (congestive heart failure) Code(s): I50.9 - HEART FAILURE, UNSPECIFIED Qualifiers: Heart failure type: unspecified Heart failure chronicity: acute on chronic Qualified Code(s): I50.9 - Heart failure, unspecified Assessment/Plan Current Medications Generic Name Dose Route Start Last Admin Trade Name Freq PRN Reason Stop Dose Admin Aripiprazole 10 mg 11/24/18 10:00 Abilify PO DAILY [facility] Atorvastatin Calcium 40 mg 11/24/18 22:00 Lipitor - PO HS [facility] Carvedilol 25 mg 11/24/18 10:00 Coreg - PO BID [facility] Heparin Sodium (Porcine) 5,000 unit 11/24/18 06:00 11/24/18 06:14 Heparin - SQ 5,000 unit TID [facility] Administration Hydralazine HCl 100 mg 11/24/18 06:00 11/24/18 06:14 Apresoline - PO 100 mg TID [facility] Administration Sodium Chloride 250 mls @ 3,000 mls/hr 11/24/18 01:51 Normal Saline - IV 11/24/18 13:24 PRN PRN Hypotension during Dialysis Azithromycin 500 mg in 250 mls @ 250 mls/hr 11/24/18 10:00 Zithromax 500mg Ivpb (Pre-Docked) IVPB DAILY [facility] Ceftriaxone Sodium 2 gm/ 100 mls @ 200 mls/hr 11/24/18 10:00 Dextrose IVPB DAILY [facility] Protocol Insulin Aspart 1 vial 11/24/18 07:00 11/24/18 06:19 Novolog Vial Sliding Scale - SQ Not Given ACHS [facility] Protocol Nifedipine 60 mg 11/24/18 10:00 Procardia Xl - PO DAILY [facility] Impression 1. YOCASTA 2. CKD 3. volume overload 4. HTN poorly controlled 5. CHF 6. DM 7. hx bipolar 8. gout 9. PNA 10. left hydro on ultrasound Plan - pt tolerated HD today - mental status improves at times - bipap as needed - serologies negative - monitor hg
[2018-11-24] MEDS ORDERED: DEXTROSE 5%-WATER 100 ML IVPB ONE (14:36)
[2018-11-24] MEDS: AZITHROMYCIN IVPB 500 MG/250 ML BAG IVPB SCH (14:39)
[2018-11-24] MEDS: CARVEDILOL 25 MG TABLET (FP) PO SCH ×2 (14:40→22:28)
[2018-11-24] MEDS: NIFEdipine E.R 60 MG TABLET (UD) PO SCH (14:40)
[2018-11-24] MEDS ORDERED: PT OWN MED DRAWER 7, Y5N ONE (14:51)
[2018-11-24] MEDS: ARIPiprazole 10 MG TABLET PO SCH (14:52)
[2018-11-24 14:53] VITALS: BMI 46.5
[2018-11-24] MEDS: CEFTRIAXONE 2 GM in DEXTROSE 5%-WATER 100 ML IVPB SCH (16:08)
[2018-11-24] MEDS: ATORVASTATIN CA 40 MG TABLET (FP) PO SCH (22:28)
[2018-11-25] MEDS: HEPARIN NA (PORCINE) 5,000 UNITS/ML 1ML VIAL SQ SCH ×3 (06:41→23:57)
[2018-11-25] MEDS: hydrALAZINE HCL 50 MG TABLET (FP) PO SCH ×3 (06:41→23:57)
[2018-11-25] MEDS: INSULIN SLIDING SCALE (NOVOLOG) 1 VIAL SQ SCH ×3 (06:41→23:56)
--- NOTE | 2018-11-25 07:30 | PN ---
Progress Note (short form) - Note Progress Note: CKD Stage 4 Currently getting HD via Rt IJ Trialysis cath. Any plan for Permacath vs. AVF? Vascular Surgery to continue following.
[2018-11-25] MEDS ORDERED: PT OWN MED DRAWER 7, Y5N ONE (10:16)
[2018-11-25] MEDS ORDERED: DEXTROSE 5%-WATER 100 ML IVPB ONE (10:17)
[2018-11-25] MEDS: CEFTRIAXONE 2 GM in DEXTROSE 5%-WATER 100 ML IVPB SCH (10:26)
[2018-11-25] MEDS: CARVEDILOL 25 MG TABLET (FP) PO SCH ×2 (10:26→23:57)
[2018-11-25] MEDS: NIFEdipine E.R 60 MG TABLET (UD) PO SCH (10:26)
[2018-11-25] MEDS: ARIPiprazole 10 MG TABLET PO SCH (10:26)
[2018-11-25] MEDS: AZITHROMYCIN IVPB 500 MG/250 ML BAG IVPB SCH (11:13)
[2018-11-25] MEDS ORDERED: SODIUM CHLORIDE 250 ML IV PRN (14:12)
--- NOTE | 2018-11-25 14:12 | PN ---
Progress Note, Physician History of Present Illness: Pt seen and examined at bedside. He is still drowsy at times. He denies shortness of breath. - Current Medication List Current Medications: Active Medications Aripiprazole (Abilify) 10 mg PO DAILY [facility] Last Admin: 11/25/18 10:26 Dose: 10 mg Atorvastatin Calcium (Lipitor -) 40 mg PO HS [facility] Last Admin: 11/24/18 22:28 Dose: 40 mg Carvedilol (Coreg -) 25 mg PO BID [facility] Last Admin: 11/25/18 10:26 Dose: 25 mg Heparin Sodium (Porcine) (Heparin -) 5,000 unit SQ TID [facility] Last Admin: 11/25/18 06:41 Dose: 5,000 unit Hydralazine HCl (Apresoline -) 100 mg PO TID [facility] Last Admin: 11/25/18 06:41 Dose: 100 mg Sodium Chloride (Normal Saline -) 250 mls @ 3,000 mls/hr IV PRN PRN PRN Reason: Hypotension during Dialysis Stop: 11/24/18 13:24 Azithromycin (Zithromax 500mg Ivpb (Pre-Docked)) 500 mg in 250 mls @ 250 mls/ hr IVPB DAILY [facility] Last Admin: 11/25/18 11:13 Dose: 250 mls/hr Ceftriaxone Sodium 2 gm/ (Dextrose) 100 mls @ 200 mls/hr IVPB DAILY [facility]; Protocol Last Admin: 11/25/18 10:26 Dose: 200 mls/hr Insulin Aspart (Novolog Vial Sliding Scale -) 1 vial SQ ACHS [facility]; Protocol Last Admin: 11/25/18 06:41 Dose: Not Given Nifedipine (Procardia Xl -) 60 mg PO DAILY [facility] Last Admin: 11/25/18 10:26 Dose: 60 mg - Objective Vital Signs: Vital Signs Temperature 98.1 F 11/25/18 09:49 Pulse Rate 96 H 11/25/18 09:49 Respiratory Rate 18 11/25/18 09:49 Blood Pressure 137/79 11/25/18 09:49 O2 Sat by Pulse Oximetry (%) 98 11/24/18 21:00 Constitutional: Yes: Calm Eyes: Yes: Conjunctiva Clear HENT: Yes: Atraumatic Neck: Yes: Supple Cardiovascular: Yes: S1, S2 Respiratory: Yes: On Nasal O2 Gastrointestinal: Yes: Soft, Abdomen, Obese Genitourinary: Yes: Merlos Present Musculoskeletal: Yes: Muscle Weakness Edema: Yes Neurological: Yes: Confusion Labs: CBC, BMP 11/24/18 07:05 11/24/18 07:05 INR, PTT INR 1.24 (0.83-1.09) H 11/16/18 19:09 Problem List - Problems (1) Elevated troponin Code(s): R74.8 - ABNORMAL LEVELS OF OTHER SERUM ENZYMES (2) CKD (chronic kidney disease) Code(s): N18.9 - CHRONIC KIDNEY DISEASE, UNSPECIFIED (3) YOCASTA (acute kidney injury) Code(s): N17.9 - ACUTE KIDNEY FAILURE, UNSPECIFIED (4) CHF (congestive heart failure) Code(s): I50.9 - HEART FAILURE, UNSPECIFIED Qualifiers: Heart failure type: unspecified Heart failure chronicity: acute on chronic Qualified Code(s): I50.9 - Heart failure, unspecified Assessment/Plan Current Medications Generic Name Dose Route Start Last Admin Trade Name Freq PRN Reason Stop Dose Admin Aripiprazole 10 mg 11/24/18 10:00 11/25/18 10:26 Abilify PO 10 mg DAILY [facility] Administration Atorvastatin Calcium 40 mg 11/24/18 22:00 11/24/18 22:28 Lipitor - PO 40 mg HS [facility] Administration Carvedilol 25 mg 11/24/18 10:00 11/25/18 10:26 Coreg - PO 25 mg BID [facility] Administration Heparin Sodium (Porcine) 5,000 unit 11/24/18 06:00 11/25/18 06:41 Heparin - SQ 5,000 unit TID [facility] Administration Hydralazine HCl 100 mg 11/24/18 06:00 11/25/18 06:41 Apresoline - PO 100 mg TID [facility] Administration Sodium Chloride 250 mls @ 3,000 mls/hr 11/24/18 01:51 Normal Saline - IV 11/24/18 13:24 PRN PRN Hypotension during Dialysis Azithromycin 500 mg in 250 mls @ 250 mls/hr 11/24/18 10:00 11/25/18 11:13 Zithromax 500mg Ivpb (Pre-Docked) IVPB 250 mls/hr DAILY [facility] Administration Ceftriaxone Sodium 2 gm/ 100 mls @ 200 mls/hr 11/24/18 10:00 11/25/18 10:26 Dextrose IVPB 200 mls/hr DAILY [facility] Administration Protocol Insulin Aspart 1 vial 11/24/18 07:00 11/25/18 06:41 Novolog Vial Sliding Scale - SQ Not Given ACHS [facility] Protocol Nifedipine 60 mg 11/24/18 10:00 11/25/18 10:26 Procardia Xl - PO 60 mg DAILY [facility] Administration Laboratory Tests 11/16/18 11/18/18 11/24/18 20:20 05:30 11:00 Stool Occult Blood AURE Screen Negative c-ANCA <1:20 Proteinase 3 (PR3) <3.5 p-ANCA <1:20 Atypical p-ANCA <1:20 Myeloperoxidase Ab <9.0 Double Strand DNA Ab <1 Glomerular Base Memb Ab 4 Hepatitis A Ab Total Negative Hep Bs Antigen Negative Hep Bs Antibody Reactive Hep B Core Total Ab Negative Hep C Ab Diagnostic <0.1 Influenza A (Rapid) Negative Influenza B (Rapid) Negative 11/25/18 02:15 Stool Occult Blood Negative AURE Screen c-ANCA Proteinase 3 (PR3) p-ANCA Atypical p-ANCA Myeloperoxidase Ab Double Strand DNA Ab Glomerular Base Memb Ab Hepatitis A Ab Total Hep Bs Antigen Hep Bs Antibody Hep B Core Total Ab Hep C Ab Diagnostic Influenza A (Rapid) Influenza B (Rapid) Impression 1. YOCASTA 2. CKD 3. volume overload 4. HTN poorly controlled 5. CHF 6. DM 7. hx bipolar 8. gout 9. PNA 10. left hydro on ultrasound Plan - will arrange for HD tomorrow - d/c shiley after dialysis tomorrow - pt for permacath next week, spoke to vascular - mental status improves at times - bipap as needed - serologies negative - monitor hg - epogen for anemia - can d/c merlos cath
--- NOTE | 2018-11-25 15:41 | PN ---
Physical Exam: SUBJECTIVE: Patient seen and examined at the bedside. drowsy at times, other times more awake. ambulates to bathroom with staff assistance. OBJECTIVE: for permacath next week d/c planning Vital Signs Period Temp Pulse Resp BP Sys/Castillo Pulse Ox Last 24 Hr 98 F-99.5 F 84-103 18-22 94-151/44-84 98 GENERAL: The patient is awake, episodes of confusion HEAD: Normal with no signs of trauma. EYES: PERRL, extraocular movements intact, sclera anicteric, conjunctiva clear. No ptosis. ENT: Ears normal, nares patent, oropharynx clear without exudates, moist mucous membranes. NECK: Trachea midline, full range of motion, supple. LUNGS: Breath sounds equal, clear to auscultation bilaterally, no wheezes, no crackles, no accessory muscle use. HEART: Regular rate and rhythm, S1, S2 without murmur, rub or gallop. ABDOMEN: obese abd. EXTREMITIES: 2+ pulses, warm, well-perfused, no edema. NEUROLOGICAL: Cranial nerves II through XII grossly intact. Normal speech, gait not observed. PSYCH: Normal mood, normal affect. SKIN: Warm, dry, normal turgor, no rashes or lesions noted Laboratory Results - last 24 hr 11/24/18 11/24/18 11/24/18 11:00 17:26 21:09 POC Glucometer 105 112 Stool Occult Blood Hep C Ab Diagnostic <0.1 11/25/18 11/25/18 11/25/18 02:15 06:19 12:47 POC Glucometer 106 107 Stool Occult Blood Negative Hep C Ab Diagnostic Active Medications Generic Name Dose Route Start Last Admin Trade Name Amilcarq PRN Reason Stop Dose Admin Aripiprazole 10 mg 11/24/18 10:00 11/25/18 10:26 Abilify PO 10 mg DAILY RONALD Administration Atorvastatin Calcium 40 mg 11/24/18 22:00 11/24/18 22:28 Lipitor - PO 40 mg HS RONALD Administration Carvedilol 25 mg 11/24/18 10:00 11/25/18 10:26 Coreg - PO 25 mg BID RONALD Administration Epoetin Shawn 5,000 unit 11/26/18 14:12 Epogen - IVPUSH 11/26/18 14:13 ONCE ONE Heparin Sodium (Porcine) 5,000 unit 11/24/18 06:00 11/25/18 14:19 Heparin - SQ 5,000 unit TID RONALD Administration Hydralazine HCl 100 mg 11/24/18 06:00 11/25/18 14:19 Apresoline - PO 100 mg TID RONALD Administration Sodium Chloride 250 mls @ 3,000 mls/hr 11/24/18 01:51 Normal Saline - IV 11/24/18 13:24 PRN PRN Hypotension during Dialysis Azithromycin 500 mg in 250 mls @ 250 mls/hr 11/24/18 10:00 11/25/18 11:13 Zithromax 500mg Ivpb (Pre-Docked) IVPB 250 mls/hr DAILY RONALD Administration Ceftriaxone Sodium 2 gm/ 100 mls @ 200 mls/hr 11/24/18 10:00 11/25/18 10:26 Dextrose IVPB 200 mls/hr DAILY RONALD Administration Protocol Sodium Chloride 250 mls @ 3,000 mls/hr 11/25/18 14:12 Normal Saline - IV 11/26/18 14:12 PRN PRN Hypotension during Dialysis Insulin Aspart 1 vial 11/24/18 07:00 11/25/18 14:10 Novolog Vial Sliding Scale - SQ Not Given ACHS [facility] Protocol Nifedipine 60 mg 11/24/18 10:00 11/25/18 10:26 Procardia Xl - PO 60 mg DAILY RONALD Administration ASSESSMENT/PLAN: Patient is a 58 year old male with a significant past medical history of diastolic CHF, bipolar disorder, depression/anxiety, arthritis, NIDDM, HTN, HLD , gout, CKD stage 4 presented with acute shortness of breath and orthopnea. Card: Hypertensive emergency. resolved. On Procardia xl 60mg daily, hydralazine 100mg tid, coreq 25mg bid. Monitor BP in the setting of kidney disease. elevated troponin In the setting of ckd. evaluated by cardiology. per cardiology, nonischemic pattern, no plans for ischemia workup ID: Sepsis, resolved. Likely secondary to pneumonia Pulmonary following On supplemental oxygen with bipap On ceftriaxone, zithromax, albuterol nebs as needed Neuro: Acute metabolic encephalopathy secondary to uremia/acute kidney injury. improving drowsy at times, at times more awake BUN/creatinine continue to worsen and now requires dialysis. for a permacath next week. Improvement of mental status after HD Bipolar disorder. on abilify Endocrine diabetes, monitor bgms. Novolog SS Heme: Anemia. s/p 2 units of prbc fen no ivf monitor electrolytes renal diet heparin Visit type - Emergency Visit Emergency Visit: Yes ED Registration Date: 11/16/18 Care time: The patient presented to the Emergency Department on the above date and was hospitalized for further evaluation of their emergent condition. - New Patient This patient is new to me today: No - Critical Care Critical Care patient: No - Discharge Referral Referred to [facility] Med P.C.: No
--- NOTE | 2018-11-25 17:06 | PN ---
Progress Note (short form) - Note Progress Note: VAscular Surgery Pt with right IJ parminder. Will do permacath on wednesday. NPO past midnite for OR on wednesday Go Argueta DO
[2018-11-25] MEDS ORDERED: INSULIN (NOVOLOG) ASPART 100 UNITS/ML 10ML VIAL ONE (18:26)
[2018-11-25] MEDS: ATORVASTATIN CA 40 MG TABLET (FP) PO SCH (23:57)
[2018-11-26] MEDS: HEPARIN NA (PORCINE) 5,000 UNITS/ML 1ML VIAL SQ SCH ×3 (06:20→21:25)
[2018-11-26] MEDS: hydrALAZINE HCL 50 MG TABLET (FP) PO SCH ×3 (06:20→21:25)
[2018-11-26] MEDS ORDERED: INSULIN (NOVOLOG) ASPART 100 UNITS/ML 10ML VIAL ONE (06:50)
[2018-11-26] MEDS: INSULIN SLIDING SCALE (NOVOLOG) 1 VIAL SQ SCH ×5 (07:44→23:26)
--- NOTE | 2018-11-26 08:20 | PN ---
Progress Note (short form) - Note Progress Note: RENAL pt is awake and alert comfortable Last Vital Signs Temp Pulse Resp BP Pulse Ox 97.3 F L 87 22 H 118/69 99 11/26/18 06:00 11/26/18 06:00 11/26/18 06:00 11/26/18 06:00 11/25/18 21:00 heent has ij trialysis lungs clear cvs s1s2 rr abd soft ext no edema neuro a+ox3 CBC, BMP 11/24/18 07:05 11/24/18 07:05 Current Medications Generic Name Dose Route Start Last Admin Trade Name Freq PRN Reason Stop Dose Admin Aripiprazole 10 mg 11/24/18 10:00 11/25/18 10:26 Abilify PO 10 mg DAILY RONALD Administration Atorvastatin Calcium 40 mg 11/24/18 22:00 11/25/18 23:57 Lipitor - PO 40 mg HS RONALD Administration Carvedilol 25 mg 11/24/18 10:00 11/25/18 23:57 Coreg - PO 25 mg BID RONALD Administration Epoetin Shawn 5,000 unit 11/26/18 14:12 Epogen - IVPUSH 11/26/18 14:13 ONCE ONE Heparin Sodium (Porcine) 5,000 unit 11/24/18 06:00 11/26/18 06:20 Heparin - SQ 5,000 unit TID RONALD Administration Hydralazine HCl 100 mg 11/24/18 06:00 11/26/18 06:20 Apresoline - PO Not Given TID RONALD Sodium Chloride 250 mls @ 3,000 mls/hr 11/24/18 01:51 Normal Saline - IV 11/24/18 13:24 PRN PRN Hypotension during Dialysis Azithromycin 500 mg in 250 mls @ 250 mls/hr 11/24/18 10:00 11/25/18 11:13 Zithromax 500mg Ivpb (Pre-Docked) IVPB 250 mls/hr DAILY RONALD Administration Ceftriaxone Sodium 2 gm/ 100 mls @ 200 mls/hr 11/24/18 10:00 11/25/18 10:26 Dextrose IVPB 200 mls/hr DAILY RONALD Administration Protocol Sodium Chloride 250 mls @ 3,000 mls/hr 11/25/18 14:12 Normal Saline - IV 11/26/18 14:12 PRN PRN Hypotension during Dialysis Insulin Aspart 1 vial 11/24/18 07:00 11/26/18 07:44 Novolog Vial Sliding Scale - SQ Not Given ACHS RONALD Protocol Nifedipine 60 mg 11/24/18 10:00 11/25/18 10:26 Procardia Xl - PO 60 mg DAILY RONALD Administration Impression 1. YOCASTA 2. CKD 3. volume overload 4. HTN poorly controlled 5. CHF 6. DM 7. hx bipolar 8. gout 9. PNA 10. left hydro on ultrasound Plan - HD today - d/c parminder after dialysis - pt for permacath next week, spoke to vascular - bipap as needed - monitor hg - epogen for anemia - would get CT scan given hydro MV
[2018-11-26] MEDS ORDERED: DEXTROSE 5%-WATER 100 ML IVPB ONE (10:42)
[2018-11-26] MEDS: CARVEDILOL 25 MG TABLET (FP) PO SCH ×2 (12:00→21:25)
[2018-11-26] MEDS ORDERED: ACETAMINOPHEN 500 MG TABLET (FP) PO ONE (12:02)
[2018-11-26 12:39] LABS: HEMATOCRIT 25.1 % (35.4-49); HEMOGLOBIN 8.3 GM/dL (11.7-16.9); MCH 25.4 pg (25.7-33.7); MEAN CELL VOLUME 76.9 fl (80-96); MEAN PLT VOLUME 7.5 fl (7.5-11.1); PLATELET COUNT 339 K/MM3 (134-434); RBC 3.26 M/mm3 (4.00-5.60); RDW 21.1 % (11.9-15.9); WHITE BLOOD COUNT 11.1 K/mm3 (4.0-10.0)
[2018-11-26 12:58] LABS: ANION GAP 12 MMOL/L (8-16); BLOOD UREA NITROGEN 39 mg/dL (7-18); CALCIUM 7.9 mg/dL (8.5-10.1); CHLORIDE 98 mmol/L (98-107); CO2 29 mmol/L (21-32); GLUCOSE,RANDOM 106 mg/dL (74-106); POTASSIUM 3.7 mmol/L (3.5-5.1); SODIUM 138 mmol/L (136-145)
[2018-11-26] MEDS ORDERED: EPOETIN ALFA 2,000 UNIT, EPOETIN ALFA 3,000 UNIT IVPUSH ONE (13:00)
[2018-11-26] MEDS ORDERED: EPOETIN ALFA 2,000 UNIT/1 ML VIAL IVPUSH ONE (14:12)
[2018-11-26] MEDS: CEFTRIAXONE 2 GM in DEXTROSE 5%-WATER 100 ML IVPB SCH (16:09)
[2018-11-26] MEDS: ARIPiprazole 10 MG TABLET PO SCH (16:18)
[2018-11-26] MEDS: NIFEdipine E.R 60 MG TABLET (UD) PO SCH (16:19)
--- NOTE | 2018-11-26 16:27 | PN ---
Physical Exam: SUBJECTIVE: Patient seen and examined. getting dialysis today. OBJECTIVE: Vital Signs Period Temp Pulse Resp BP Sys/Castillo Pulse Ox Last 24 Hr 97.2 F-98.9 F 72-95 18-22 91-153/52-103 94-99 GENERAL: The patient is awake, episodes of confusion HEAD: Normal with no signs of trauma. EYES: PERRL, extraocular movements intact, sclera anicteric, conjunctiva clear. No ptosis. ENT: Ears normal, nares patent, oropharynx clear without exudates, moist mucous membranes. NECK: Trachea midline, full range of motion, supple. LUNGS: Breath sounds equal, clear to auscultation bilaterally, no wheezes, no crackles, no accessory muscle use. HEART: Regular rate and rhythm, S1, S2 without murmur, rub or gallop. ABDOMEN: obese abd. EXTREMITIES: 2+ pulses, warm, well-perfused, no edema. NEUROLOGICAL: Cranial nerves II through XII grossly intact. Normal speech, gait not observed. PSYCH: Normal mood, normal affect. SKIN: Warm, dry, normal turgor, no rashes or lesions noted Laboratory Results - last 24 hr 11/26/18 11/26/18 11/26/18 06:04 11:25 12:00 WBC RBC Hgb Hct MCV MCH MCHC RDW Plt Count MPV Sodium 138 Potassium 3.7 Chloride 98 Carbon Dioxide 29 Anion Gap 12 BUN 39 H Creatinine 9.0 H* Creat Clearance w eGFR 6.12 POC Glucometer 119 96 Random Glucose 106 Calcium 7.9 L 11/26/18 11/26/18 12:00 16:22 WBC 11.1 H RBC 3.26 L Hgb 8.3 L Hct 25.1 L MCV 76.9 L MCH 25.4 L MCHC 33.0 RDW 21.1 H Plt Count 339 MPV 7.5 Sodium Potassium Chloride Carbon Dioxide Anion Gap BUN Creatinine Creat Clearance w eGFR POC Glucometer 131 Random Glucose Calcium Active Medications Generic Name Dose Route Start Last Admin Trade Name Freq PRN Reason Stop Dose Admin Aripiprazole 10 mg 11/24/18 10:00 11/25/18 10:26 Abilify PO 10 mg DAILY RONALD Administration Atorvastatin Calcium 40 mg 11/24/18 22:00 11/25/18 23:57 Lipitor - PO 40 mg HS RONALD Administration Carvedilol 25 mg 11/24/18 10:00 11/25/18 23:57 Coreg - PO 25 mg BID RONALD Administration Heparin Sodium (Porcine) 5,000 unit 11/24/18 06:00 11/26/18 06:20 Heparin - SQ 5,000 unit TID RONALD Administration Hydralazine HCl 100 mg 11/24/18 06:00 11/26/18 06:20 Apresoline - PO Not Given TID RONALD Sodium Chloride 250 mls @ 3,000 mls/hr 11/24/18 01:51 Normal Saline - IV 11/24/18 13:24 PRN PRN Hypotension during Dialysis Azithromycin 500 mg in 250 mls @ 250 mls/hr 11/24/18 10:00 11/25/18 11:13 Zithromax 500mg Ivpb (Pre-Docked) IVPB 250 mls/hr DAILY RONALD Administration Ceftriaxone Sodium 2 gm/ 100 mls @ 200 mls/hr 11/24/18 10:00 11/25/18 10:26 Dextrose IVPB 200 mls/hr DAILY RONALD Administration Protocol Sodium Chloride 250 mls @ 3,000 mls/hr 11/25/18 14:12 Normal Saline - IV 11/26/18 14:12 PRN PRN Hypotension during Dialysis Insulin Aspart 1 vial 11/24/18 07:00 11/26/18 12:42 Novolog Vial Sliding Scale - SQ Not Given ACHS [facility] Protocol Nifedipine 60 mg 11/24/18 10:00 11/25/18 10:26 Procardia Xl - PO 60 mg DAILY RONALD Administration ASSESSMENT/PLAN: Patient is a 58 year old male with a significant past medical history of diastolic CHF, bipolar disorder, depression/anxiety, arthritis, NIDDM, HTN, HLD , gout, CKD stage 4 presented with acute shortness of breath and orthopnea. Card: Hypertensive emergency. resolved. On Procardia xl 60mg daily, hydralazine 100mg tid, coreq 25mg bid. Monitor BP in the setting of kidney disease. elevated troponin In the setting of ckd. evaluated by cardiology. per cardiology, nonischemic pattern, no plans for ischemia workup ID: Sepsis, resolved. Likely secondary to pneumonia Pulmonary following On supplemental oxygen with bipap On ceftriaxone, zithromax, albuterol nebs as needed Neuro: Acute metabolic encephalopathy secondary to uremia/acute kidney injury. improving drowsy at times, at times more awake BUN/creatinine continue to worsen and now requires dialysis. for a permacath next week. Improvement of mental status after HD Bipolar disorder. on abilify Endocrine diabetes, monitor bgms. Novolog SS Heme: Anemia. s/p 2 units of prbc fen no ivf monitor electrolytes renal diet heparin Visit type - Emergency Visit Emergency Visit: Yes ED Registration Date: 11/16/18 Care time: The patient presented to the Emergency Department on the above date and was hospitalized for further evaluation of their emergent condition. - New Patient This patient is new to me today: No - Critical Care Critical Care patient: No - Discharge Referral Referred to [facility] Med P.C.: No
[2018-11-26] MEDS ORDERED: ACETAMINOPHEN 325 MG TABLET (FP) PO PRN (16:31)
[2018-11-26] MEDS: AZITHROMYCIN IVPB 500 MG/250 ML BAG IVPB SCH (16:58)
[2018-11-26] MEDS: ATORVASTATIN CA 40 MG TABLET (FP) PO SCH (21:25)
[2018-11-27] MEDS ORDERED: ONDANSETRON 4 MG/2 ML VIAL IVPB PRN (04:10)
[2018-11-27] MEDS ORDERED: ACETAMINOPHEN 325 MG TABLET (FP) PO PRN (04:35)
[2018-11-27] MEDS ORDERED: VANCOMYCIN HCL 1,500 MG in DEXTROSE 5%-WATER - 500 ML IVPB ONE (04:37)
[2018-11-27] MEDS ORDERED: MEROPENEM 500 MG in DEXTROSE 5%-WATER 100 ML IVPB ONE (04:39)
--- NOTE | 2018-11-27 04:43 | HOSP ---
Physical Examination Vital Signs: Vital Signs Temperature 98.0 F 11/26/18 18:19 Pulse Rate 118 H 11/26/18 21:23 Respiratory Rate 22 H 11/26/18 21:23 Blood Pressure 141/86 11/26/18 21:23 O2 Sat by Pulse Oximetry (%) 96 11/26/18 21:00 Labs: CBC, BMP 11/26/18 12:00 11/26/18 12:00 Hospitalist Encounter Assessment: HD patient with fever 101.5F tachycardia, appears to be septic. Ordered peripheral blood cultures, and blood cultures through HD catheter, as well as UA , urine culture, cxr. Ordered one time dose vancomycin 1.5g, meropenem 500mg IV and ID consult.
[2018-11-27] MEDS: HEPARIN NA (PORCINE) 5,000 UNITS/ML 1ML VIAL SQ SCH ×3 (05:48→22:04)
[2018-11-27] MEDS: hydrALAZINE HCL 50 MG TABLET (FP) PO SCH ×3 (05:48→22:03)
[2018-11-27] MEDS: INSULIN SLIDING SCALE (NOVOLOG) 1 VIAL SQ SCH ×4 (06:16→22:09)
--- NOTE | 2018-11-27 08:44 | PN ---
Progress Note (short form) - Note Progress Note: RENAL pt is awake and alert comfortable had a fever last night had bm in his diaper Last Vital Signs Temp Pulse Resp BP Pulse Ox 99.1 F 100 H 22 H 148/70 96 11/27/18 06:00 11/27/18 06:00 11/27/18 06:00 11/27/18 06:00 11/26/18 21:00 heent has ij trialysis lungs rhonchi cvs s1s2 rr abd soft ext no edema neuro a+ox3 CBC, BMP 11/26/18 12:00 11/26/18 12:00 Current Medications Generic Name Dose Route Start Last Admin Trade Name Freq PRN Reason Stop Dose Admin Acetaminophen 650 mg 11/27/18 04:35 Tylenol - PO Q6H PRN PAIN OR FEVER Aripiprazole 10 mg 11/24/18 10:00 11/26/18 16:18 Abilify PO 10 mg DAILY RONALD Administration Atorvastatin Calcium 40 mg 11/24/18 22:00 11/26/18 21:25 Lipitor - PO 40 mg HS RONALD Administration Carvedilol 25 mg 11/24/18 10:00 11/26/18 21:25 Coreg - PO 25 mg BID RONALD Administration Heparin Sodium (Porcine) 5,000 unit 11/24/18 06:00 11/27/18 05:48 Heparin - SQ 5,000 unit TID RONALD Administration Hydralazine HCl 100 mg 11/24/18 06:00 11/27/18 05:48 Apresoline - PO Not Given TID RONALD Sodium Chloride 250 mls @ 3,000 mls/hr 11/24/18 01:51 Normal Saline - IV 11/24/18 13:24 PRN PRN Hypotension during Dialysis Azithromycin 500 mg in 250 mls @ 250 mls/hr 11/24/18 10:00 11/26/18 16:58 Zithromax 500mg Ivpb (Pre-Docked) IVPB 250 mls/hr DAILY RONALD Administration Ceftriaxone Sodium 2 gm/ 100 mls @ 200 mls/hr 11/24/18 10:00 11/26/18 16:09 Dextrose IVPB 200 mls/hr DAILY RONALD Administration Protocol Sodium Chloride 250 mls @ 3,000 mls/hr 11/25/18 14:12 Normal Saline - IV 11/26/18 14:12 PRN PRN Hypotension during Dialysis Insulin Aspart 1 vial 11/24/18 07:00 11/27/18 06:16 Novolog Vial Sliding Scale - SQ Not Given ACHS RONALD Protocol Nifedipine 60 mg 11/24/18 10:00 11/26/18 16:19 Procardia Xl - PO 60 mg DAILY RONALD Administration Ondansetron HCl 4 mg 11/27/18 04:10 11/27/18 04:40 Zofran Injection IVPB 4 mg Q6H PRN Administration NAUSEA Impression 1. YOCASTA 2. CKD 3. volume overload 4. HTN poorly controlled 5. CHF 6. DM 7. hx bipolar 8. gout 9. PNA 10. left hydro on ultrasound, also non obstructing stone Plan -would dc trialysis catheter particularly now in the setting of a low grade temp - pt for permacath next week, but should have sterile cultures first - bipap as needed - monitor hg - epogen for anemia - would get CT scan given hydro and urology opinion MV
[2018-11-27 09:00] LABS: BASO % 0.4 % (0-2.0); EOS % 2.4 % (0-4.5); HEMATOCRIT 28.1 % (35.4-49); HEMOGLOBIN 9.1 GM/dL (11.7-16.9); LYMPH % 4.9 % (8-40); MCHC 32.5 g/dl (32.0-35.9); MEAN PLT VOLUME 7.5 fl (7.5-11.1); MONO % 10.3 % (3.8-10.2); PLATELET COUNT 321 K/MM3 (134-434); RBC 3.65 M/mm3 (4.00-5.60); RDW 20.2 % (11.9-15.9); WHITE BLOOD COUNT 13.6 K/mm3 (4.0-10.0)
[2018-11-27 09:35] LABS: ALBUMIN 2.1 g/dl (3.4-5.0); ALK PHOS 108 U/L (45-117); ANION GAP 9 MMOL/L (8-16); BILIRUBIN,TOTAL 0.3 mg/dL (0.2-1); BLOOD UREA NITROGEN 21 mg/dL (7-18); CALCIUM 8.3 mg/dL (8.5-10.1); CHLORIDE 96 mmol/L (98-107); CO2 30 mmol/L (21-32); CREATININE 6.5 mg/dL (0.55-1.3); GLUCOSE,RANDOM 139 mg/dL (74-106); POTASSIUM 3.7 mmol/L (3.5-5.1); SGOT/AST 34 U/L (15-37); SGPT/ALT 34 U/L (13-61); SODIUM 135 mmol/L (136-145); TOT PROT 6.6 g/dl (6.4-8.2)
[2018-11-27] MEDS ORDERED: DEXTROSE 5%-WATER 100 ML IVPB ONE (09:37)
[2018-11-27] MEDS: AZITHROMYCIN IVPB 500 MG/250 ML BAG IVPB SCH (10:04)
[2018-11-27] MEDS: NIFEdipine E.R 60 MG TABLET (UD) PO SCH (10:05)
[2018-11-27] MEDS: CARVEDILOL 25 MG TABLET (FP) PO SCH ×2 (10:06→22:03)
[2018-11-27] MEDS: ARIPiprazole 10 MG TABLET PO SCH (10:06)
[2018-11-27] MEDS: CEFTRIAXONE 2 GM in DEXTROSE 5%-WATER 100 ML IVPB SCH (11:34)
--- NOTE | 2018-11-27 14:06 | PN ---
Progress Note, Physician History of Present Illness: pulmonary drowsy,-resp distress. t 101.8 - Current Medication List Current Medications: Active Medications Acetaminophen (Tylenol -) 650 mg PO Q6H PRN PRN Reason: PAIN OR FEVER Last Admin: 11/27/18 11:33 Dose: 650 mg Aripiprazole (Abilify) 10 mg PO DAILY [facility] Last Admin: 11/27/18 10:06 Dose: 10 mg Atorvastatin Calcium (Lipitor -) 40 mg PO HS [facility] Last Admin: 11/26/18 21:25 Dose: 40 mg Carvedilol (Coreg -) 25 mg PO BID [facility] Last Admin: 11/27/18 10:06 Dose: 25 mg Heparin Sodium (Porcine) (Heparin -) 5,000 unit SQ TID [facility] Last Admin: 11/27/18 05:48 Dose: 5,000 unit Hydralazine HCl (Apresoline -) 100 mg PO TID [facility] Last Admin: 11/27/18 05:48 Dose: Not Given Sodium Chloride (Normal Saline -) 250 mls @ 3,000 mls/hr IV PRN PRN PRN Reason: Hypotension during Dialysis Stop: 11/24/18 13:24 Azithromycin (Zithromax 500mg Ivpb (Pre-Docked)) 500 mg in 250 mls @ 250 mls/ hr IVPB DAILY [facility] Last Admin: 11/27/18 10:04 Dose: 250 mls/hr Ceftriaxone Sodium 2 gm/ (Dextrose) 100 mls @ 200 mls/hr IVPB DAILY [facility]; Protocol Last Admin: 11/27/18 11:34 Dose: 200 mls/hr Sodium Chloride (Normal Saline -) 250 mls @ 3,000 mls/hr IV PRN PRN PRN Reason: Hypotension during Dialysis Stop: 11/26/18 14:12 Insulin Aspart (Novolog Vial Sliding Scale -) 1 vial SQ ACHS [facility]; Protocol Last Admin: 11/27/18 11:57 Dose: Not Given Nifedipine (Procardia Xl -) 60 mg PO DAILY [facility] Last Admin: 11/27/18 10:05 Dose: 60 mg Ondansetron HCl (Zofran Injection) 4 mg IVPB Q6H PRN PRN Reason: NAUSEA Last Admin: 11/27/18 04:40 Dose: 4 mg - Objective Vital Signs: Vital Signs Temperature 99.5 F 11/27/18 09:00 Pulse Rate 100 H 11/27/18 09:00 Respiratory Rate 22 H 11/27/18 09:00 Blood Pressure 120/65 11/27/18 09:00 O2 Sat by Pulse Oximetry (%) 96 11/26/18 21:00 Constitutional: Yes: Well Nourished, Calm Eyes: Yes: WNL HENT: Yes: WNL Neck: Yes: WNL Cardiovascular: Yes: Regular Rate and Rhythm, S1, S2 Respiratory: Yes: Rhonchi (scattered rhonchi) Gastrointestinal: Yes: Normal Bowel Sounds, Soft Extremities: Yes: WNL Edema: Yes Labs: CBC, BMP 11/27/18 08:52 11/27/18 08:52 INR, PTT INR 1.24 (0.83-1.09) H 11/16/18 19:09 Problem List - Problems (1) Elevated troponin Code(s): R74.8 - ABNORMAL LEVELS OF OTHER SERUM ENZYMES (2) Hypertensive emergency Code(s): I16.1 - HYPERTENSIVE EMERGENCY (3) Morbid (severe) obesity due to excess calories Code(s): E66.01 - MORBID (SEVERE) OBESITY DUE TO EXCESS CALORIES (4) CKD (chronic kidney disease) Code(s): N18.9 - CHRONIC KIDNEY DISEASE, UNSPECIFIED (5) CHF (congestive heart failure) Code(s): I50.9 - HEART FAILURE, UNSPECIFIED Qualifiers: Heart failure type: unspecified Heart failure chronicity: acute on chronic Qualified Code(s): I50.9 - Heart failure, unspecified (6) Diabetes Code(s): E11.9 - TYPE 2 DIABETES MELLITUS WITHOUT COMPLICATIONS (7) Dyspnea Code(s): R06.00 - DYSPNEA, UNSPECIFIED (8) Hypertension Code(s): I10 - ESSENTIAL (PRIMARY) HYPERTENSION (9) Hypertensive urgency Code(s): I16.0 - HYPERTENSIVE URGENCY (10) Non compliance w medication regimen Code(s): Z91.14 - PATIENT'S OTHER NONCOMPLIANCE WITH MEDICATION REGIMEN (11) MOLLY (obstructive sleep apnea) Code(s): G47.33 - OBSTRUCTIVE SLEEP APNEA (ADULT) (PEDIATRIC) Assessment/Plan IMP S/P HYPERTENSIVE URGENCY DYSPNEA improving ACUTE ON CHRONIC CHF ? PNEUMONIA ACUTE ON CHRONIC KIDNEY DISEASE LIKELY OSAS MORBID OBESITY SEVERE ANEMIA + TROPONIN DM FEVER PLAN HD PER RENAL O2 ABX NIPPV NEEEDED AND HS MONITOR LYTES,RENAL FUNCTION F/U CHEST X-RAYS DAILY WT OUTPATIENT SLEEP STUDY MONITOR H+H NORMAL TRANSFUSION THRESHOLD DR MONTELONGO Problem List - Problems (1) Elevated troponin Code(s): R74.8 - ABNORMAL LEVELS OF OTHER SERUM ENZYMES (2) Hypertensive emergency Code(s): I16.1 - HYPERTENSIVE EMERGENCY (3) Morbid (severe) obesity due to excess calories Code(s): E66.01 - MORBID (SEVERE) OBESITY DUE TO EXCESS CALORIES (4) CKD (chronic kidney disease) Code(s): N18.9 - CHRONIC KIDNEY DISEASE, UNSPECIFIED (5) CHF (congestive heart failure) Code(s): I50.9 - HEART FAILURE, UNSPECIFIED Qualifiers: Heart failure type: unspecified Heart failure chronicity: acute on chronic Qualified Code(s): I50.9 - Heart failure, unspecified (6) Diabetes Code(s): E11.9 - TYPE 2 DIABETES MELLITUS WITHOUT COMPLICATIONS (7) Dyspnea Code(s): R06.00 - DYSPNEA, UNSPECIFIED (8) Hypertension Code(s): I10 - ESSENTIAL (PRIMARY) HYPERTENSION (9) Hypertensive urgency Code(s): I16.0 - HYPERTENSIVE URGENCY (10) Non compliance w medication regimen Code(s): Z91.14 - PATIENT'S OTHER NONCOMPLIANCE WITH MEDICATION REGIMEN (11) MOLLY (obstructive sleep apnea) Code(s): G47.33 - OBSTRUCTIVE SLEEP APNEA (ADULT) (PEDIATRIC)
--- NOTE | 2018-11-27 15:47 | PN ---
Physical Exam: SUBJECTIVE: Patient seen and examined at the bedside. OBJECTIVE: 24 hr fever, tachycardia overnight vaughan cultured, id consulted given vancomycin Vital Signs Period Temp Pulse Resp BP Sys/Castillo Pulse Ox Last 24 Hr 97.2 F-101.8 F 87-118 18-22 103-153/64-103 96 GENERAL: The patient is awake, episodes of confusion HEAD: Normal with no signs of trauma. EYES: PERRL, extraocular movements intact, sclera anicteric, conjunctiva clear. No ptosis. ENT: Ears normal, nares patent, oropharynx clear without exudates, moist mucous membranes. NECK: Trachea midline, full range of motion, supple. LUNGS: Breath sounds equal, clear to auscultation bilaterally, no wheezes, no crackles, no accessory muscle use. HEART: Regular rate and rhythm, S1, S2 without murmur, rub or gallop. ABDOMEN: obese abd. EXTREMITIES: 2+ pulses, warm, well-perfused, no edema. NEUROLOGICAL: Cranial nerves II through XII grossly intact. Normal speech, gait not observed. PSYCH: Normal mood, normal affect. SKIN: Warm, dry, normal turgor, no rashes or lesions noted Laboratory Results - last 24 hr 11/26/18 11/26/18 11/27/18 16:22 21:17 05:43 WBC RBC Hgb Hct MCV MCH MCHC RDW Plt Count MPV Absolute Neuts (auto) Neutrophils % Lymphocytes % Monocytes % Eosinophils % Basophils % Nucleated RBC % Sodium Potassium Chloride Carbon Dioxide Anion Gap BUN Creatinine Creat Clearance w eGFR POC Glucometer 131 165 110 Random Glucose Calcium Total Bilirubin AST ALT Alkaline Phosphatase Total Protein Albumin 11/27/18 11/27/18 11/27/18 08:52 08:52 11:28 WBC 13.6 H RBC 3.65 L Hgb 9.1 L Hct 28.1 L MCV 77.0 L MCH 25.0 L MCHC 32.5 RDW 20.2 H Plt Count 321 MPV 7.5 Absolute Neuts (auto) 11.2 H Neutrophils % 82.0 Lymphocytes % 4.9 L D Monocytes % 10.3 H Eosinophils % 2.4 Basophils % 0.4 Nucleated RBC % 0 Sodium 135 L Potassium 3.7 Chloride 96 L Carbon Dioxide 30 Anion Gap 9 BUN 21 H Creatinine 6.5 H Creat Clearance w eGFR 8.91 POC Glucometer 117 Random Glucose 139 H Calcium 8.3 L Total Bilirubin 0.3 AST 34 ALT 34 Alkaline Phosphatase 108 Total Protein 6.6 Albumin 2.1 L Active Medications Generic Name Dose Route Start Last Admin Trade Name Vandana PRN Reason Stop Dose Admin Acetaminophen 650 mg 11/27/18 04:35 11/27/18 11:33 Tylenol - PO 650 mg Q6H PRN Administration PAIN OR FEVER Aripiprazole 10 mg 11/24/18 10:00 11/27/18 10:06 Abilify PO 10 mg DAILY RONALD Administration Atorvastatin Calcium 40 mg 11/24/18 22:00 11/26/18 21:25 Lipitor - PO 40 mg HS RONALD Administration Carvedilol 25 mg 11/24/18 10:00 11/27/18 10:06 Coreg - PO 25 mg BID RONALD Administration Heparin Sodium (Porcine) 5,000 unit 11/24/18 06:00 11/27/18 14:53 Heparin - SQ 5,000 unit TID RONALD Administration Hydralazine HCl 100 mg 11/24/18 06:00 11/27/18 14:53 Apresoline - PO 100 mg TID RONALD Administration Sodium Chloride 250 mls @ 3,000 mls/hr 11/24/18 01:51 Normal Saline - IV 11/24/18 13:24 PRN PRN Hypotension during Dialysis Azithromycin 500 mg in 250 mls @ 250 mls/hr 11/24/18 10:00 11/27/18 10:04 Zithromax 500mg Ivpb (Pre-Docked) IVPB 250 mls/hr DAILY RONALD Administration Ceftriaxone Sodium 2 gm/ 100 mls @ 200 mls/hr 11/24/18 10:00 11/27/18 11:34 Dextrose IVPB 200 mls/hr DAILY RONALD Administration Protocol Sodium Chloride 250 mls @ 3,000 mls/hr 11/25/18 14:12 Normal Saline - IV 11/26/18 14:12 PRN PRN Hypotension during Dialysis Insulin Aspart 1 vial 11/24/18 07:00 11/27/18 11:57 Novolog Vial Sliding Scale - SQ Not Given ACHS RONALD Protocol Nifedipine 60 mg 11/24/18 10:00 11/27/18 10:05 Procardia Xl - PO 60 mg DAILY RONALD Administration Ondansetron HCl 4 mg 11/27/18 04:10 11/27/18 04:40 Zofran Injection IVPB 4 mg Q6H PRN Administration NAUSEA ASSESSMENT/PLAN: Patient is a 58 year old male with a significant past medical history of diastolic CHF, bipolar disorder, depression/anxiety, arthritis, NIDDM, HTN, HLD , gout, CKD stage 4 presented with acute shortness of breath and orthopnea. Card: Hypertensive emergency. resolved. On Procardia xl 60mg daily, hydralazine 100mg tid, coreq 25mg bid. Monitor BP in the setting of kidney disease. elevated troponin In the setting of ckd. evaluated by cardiology. per cardiology, nonischemic pattern, no plans for ischemia workup ID: Sepsis febrile overnight, wbc elevated, tachycardia. blood and urine cultures ordered and pending trialysis catheter removed and tip sent for culture Given Vancomycin overnight ID consulted by night attending. Neuro: Acute metabolic encephalopathy secondary to uremia/acute kidney injury. improving drowsy at times, at times more awake BUN/creatinine continue to worsen and now requires dialysis. for a permacath next week. Improvement of mental status after HD Bipolar disorder. on abilify Endocrine diabetes, monitor bgms. Novolog SS Heme: Anemia. s/p 2 units of prbc fen no ivf monitor electrolytes renal diet heparin Visit type - Emergency Visit Emergency Visit: Yes ED Registration Date: 11/16/18 Care time: The patient presented to the Emergency Department on the above date and was hospitalized for further evaluation of their emergent condition. - New Patient This patient is new to me today: No - Critical Care Critical Care patient: No - Discharge Referral Referred to [facility] Med P.C.: No
--- NOTE | 2018-11-27 16:04 | PROC ---
Procedure Note Procedure: patient trialysis right jugular catheter removed today 2/2 to sepsis/fever dressing removed, Skin was cleaned with betadine, all sutures removed patient placed on [place] position and catheter removed intact after patient exhaled I applied pressure, minimal amount of bleeding noted new sterile dressing applied catheter tip sent for culture patient tolerating procedure well
--- NOTE | 2018-11-27 19:22 | PN ---
Progress Note (short form) - Note Progress Note: ID CONSULT DICTATED FEVER R/O CATHETER RELATED BACTEREMIA R/O HCAP ESRD AWAIT C/S VANCO X 1 GIVEN ZOSYN, ADJUSTED FOR RENAL FAILURE
[2018-11-27] MEDS ORDERED: DEXTROSE 5%-WATER - 50 ML IVPB ONE (20:11)
[2018-11-27] MEDS ORDERED: PIPERACILLIN/TAZOBACTAM 2.25 GM VIAL IVPB ONE (20:11)
[2018-11-27] MEDS: PIPERACILLIN/TAZOB 2.25 GM 2.25 GM in DEXTROSE 5%-WATER - 50 ML IVPB SCH (20:25)
[2018-11-27] MEDS ORDERED: INSULIN (NOVOLOG) ASPART 100 UNITS/ML 10ML VIAL ONE (20:39)
[2018-11-27] MEDS: ATORVASTATIN CA 40 MG TABLET (FP) PO SCH (22:39)
--- NOTE | 2018-11-28 00:01 | CONS ---
DATE OF CONSULTATION: DATE OF DICTATION: 11/27/2018 HISTORY OF PRESENT ILLNESS: The patient is a 58-year-old male with a history of end-stage renal disease on hemodialysis, evaluated for fever. The patient was admitted to the hospital on November 16, 2018, with worsening shortness of breath. He was diagnosed with hypertensive crisis. His course was complicated by congestive heart failure and possible pneumonia. He was empirically treated with Zithromax and ceftriaxone over the past 24 hours. Patient has now developed fever to 101.8. Cultures were obtained. He was empirically treated with vancomycin and meropenem. The patient is awake. He complains of nausea, vomiting, and diarrhea. He denies any chest pain, shortness of breath, cough, or sputum production. He makes small amounts of urine and denies dysuria. No reports of infected skin wounds. The patient's dialysis catheter was removed and culture obtained of the tip. PAST MEDICAL HISTORY: Positive for end-stage renal disease on hemodialysis, congestive heart failure, bipolar disorder, noninsulin-dependent diabetes mellitus, hypertension, hyperlipidemia, gouty arthritis. ALLERGIES: No known allergies. MEDICATIONS: At the present time include Tylenol, Abilify, Lipitor, Coreg, Epogen. SOCIAL HISTORY: Patient is a nonsmoker, nondrinker. Lives in the community. REVIEW OF SYSTEMS: Neurologic: No loss of consciousness, seizure activity, or focal weakness. Cardiac: Negative chest pain or palpitations. Respiratory: Negative cough or sputum production. Gastrointestinal: Positive for vomiting and diarrhea. Genitourinary: Positive for end-stage renal disease. LABORATORY DATA: White count 13.6, hematocrit 28.1, platelet count 321, BUN 21, creatinine 6.5. Urinalysis: 3 white cells. Blood culture and catheter culture pending. Urine legionella and pneumococcal antigens negative. Chest x-ray shows pulmonary vascular congestion. PHYSICAL EXAMINATION: General: He is awake and alert. Supine in bed, morbidly obese. Vital Signs: Temperature 97.7, blood pressure 111/72, pulse 87 and regular, respirations 22 per minute, temperature max 101.8. HEENT: Sclerae anicteric. Heart Sounds: S1, S2. Lungs: Coarse rhonchi bilaterally. Abdomen: Obese, soft, nontender. Extremities: Positive for edema. Skin: Catheter exit site in the right chest shows no erythema or drainage. IMPRESSION: 1. Fever, rule out catheter related bacteremia versus hospital-acquired pneumonia. 2. End-stage renal disease on hemodialysis. PLAN: Await culture results. Empiric antibiotic coverage for catheter versus lung source of infection with vancomycin and 1 dose of Zosyn 3.375 g IV piggyback every 8 hours. Further recommendations pending cultures. Will follow, than you for the kind referral. GENIE ALBARRAN M.D. [id number]
[2018-11-28] MEDS ORDERED: PIPERACILLIN/TAZOBACTAM 2.25 GM VIAL IVPB ONE ×3 (01:36→17:11)
[2018-11-28] MEDS ORDERED: DEXTROSE 5%-WATER - 50 ML IVPB ONE ×3 (01:36→17:12)
[2018-11-28] MEDS: PIPERACILLIN/TAZOB 2.25 GM 2.25 GM in DEXTROSE 5%-WATER - 50 ML IVPB SCH ×3 (01:39→17:16)
[2018-11-28] MEDS ORDERED: ACETAMINOPHEN 1000 MG/100 ML VIAL (NON FORMULARY) IVPB ONE (05:18)
[2018-11-28] MEDS: HEPARIN NA (PORCINE) 5,000 UNITS/ML 1ML VIAL SQ SCH ×3 (05:43→21:59)
[2018-11-28] MEDS: hydrALAZINE HCL 50 MG TABLET (FP) PO SCH ×3 (05:43→21:59)
[2018-11-28] MEDS: INSULIN SLIDING SCALE (NOVOLOG) 1 VIAL SQ SCH ×2 (06:13→12:46)
[2018-11-28] MEDS ORDERED: PT OWN MED DRAWER 7, Y5N ONE ×2 (06:40→10:18)
[2018-11-28] MEDS ORDERED: INSULIN (NOVOLOG) ASPART 100 UNITS/ML 10ML VIAL ONE (06:40)
[2018-11-28 07:53] LABS: BASO % 0.5 % (0-2.0); EOS % 3.6 % (0-4.5); HEMATOCRIT 26.4 % (35.4-49); HEMOGLOBIN 8.7 GM/dL (11.7-16.9); LYMPH % 8.4 % (8-40); MCH 25.5 pg (25.7-33.7); MEAN CELL VOLUME 77.3 fl (80-96); MEAN PLT VOLUME 7.6 fl (7.5-11.1); MONO % 11.6 % (3.8-10.2); NEUT % 75.9 % (42.8-82.8); PLATELET COUNT 271 K/MM3 (134-434); RBC 3.41 M/mm3 (4.00-5.60); RDW 20.5 % (11.9-15.9); WHITE BLOOD COUNT 10.3 K/mm3 (4.0-10.0)
[2018-11-28 08:22] LABS: ALK PHOS 104 U/L (45-117); ANION GAP 11 MMOL/L (8-16); BILIRUBIN,TOTAL 0.3 mg/dL (0.2-1); BLOOD UREA NITROGEN 33 mg/dL (7-18); CHLORIDE 94 mmol/L (98-107); CO2 30 mmol/L (21-32); GLUCOSE,RANDOM 85 mg/dL (74-106); MAGNESIUM 1.9 mg/dL (1.8-2.4); POTASSIUM 3.5 mmol/L (3.5-5.1); SGOT/AST 33 U/L (15-37); SGPT/ALT 39 U/L (13-61); SODIUM 135 mmol/L (136-145); TOT PROT 6.5 g/dl (6.4-8.2)
[2018-11-28 08:25] LABS: CREATININE 8.8 mg/dL (0.55-1.3)
--- NOTE | 2018-11-28 09:32 | PN ---
Progress Note (short form) - Note Progress Note: Vascular Surgery Pt with 101 temp. Cath removed yesterday. Awaiting culture results. Case cancelled for today. Go Argueta DO
[2018-11-28] MEDS: NIFEdipine E.R 60 MG TABLET (UD) PO SCH (10:39)
[2018-11-28] MEDS: ARIPiprazole 10 MG TABLET PO SCH (10:39)
[2018-11-28] MEDS: CARVEDILOL 25 MG TABLET (FP) PO SCH ×2 (10:39→21:59)
[2018-11-28 11:54] LABS: ANISOCYTOSIS 2+; MACROCYTOSIS 0; PLATELET ESTIMATE NORMAL; TEAR DROP CELLS 1+
--- NOTE | 2018-11-28 12:06 | PN ---
Progress Note (short form) - Note Progress Note: PULMONARY Denies shortness of breath. States cough has resolved. Vital Signs Period Temp Pulse Resp BP Sys/Castillo Pulse Ox Last 24 Hr 97.7 F-98.3 F 82-87 18-22 111-123/68-72 96 Gen: NAD at rest Heart: RRR Lung: decreased breath sounds at the bases Abd: soft, obese, nontender Ext: no edema CBC, BMP 11/28/18 07:30 11/28/18 07:30 Active Medications Acetaminophen (Tylenol -) 650 mg PO Q6H PRN PRN Reason: PAIN OR FEVER Last Admin: 11/27/18 11:33 Dose: 650 mg Aripiprazole (Abilify) 10 mg PO DAILY [facility] Last Admin: 11/28/18 10:39 Dose: 10 mg Atorvastatin Calcium (Lipitor -) 40 mg PO HS RONALD Last Admin: 11/27/18 22:39 Dose: 40 mg Carvedilol (Coreg -) 25 mg PO BID [facility] Last Admin: 11/28/18 10:39 Dose: 25 mg Heparin Sodium (Porcine) (Heparin -) 5,000 unit SQ TID RONALD Last Admin: 11/28/18 05:43 Dose: Not Given Hydralazine HCl (Apresoline -) 100 mg PO TID [facility] Last Admin: 11/28/18 05:43 Dose: Not Given Sodium Chloride (Normal Saline -) 250 mls @ 3,000 mls/hr IV PRN PRN PRN Reason: Hypotension during Dialysis Stop: 11/26/18 14:12 Piperacillin Sod/Tazobactam (Sod 2.25 gm/ Dextrose) 50 mls @ 100 mls/hr IVPB Q8H-IV RONALD; Protocol Last Admin: 11/28/18 10:38 Dose: 100 mls/hr Insulin Aspart (Novolog Vial Sliding Scale -) 1 vial SQ ACHS RONALD; Protocol Last Admin: 11/28/18 06:13 Dose: Not Given Nifedipine (Procardia Xl -) 60 mg PO DAILY [facility] Last Admin: 11/28/18 10:39 Dose: 60 mg Ondansetron HCl (Zofran Injection) 4 mg IVPB Q6H PRN PRN Reason: NAUSEA Last Admin: 11/27/18 04:40 Dose: 4 mg A/P Hypertensive Urgency resolved Acute on Chronic Renal Failure requiring HD r/o Pneumonia Acute on Chronic Diastolic Heart Failure Morbid Obesity Likely MOLLY DM - antibiotics per ID - f/u cultures - HD per renal - O2 to keep SpO2 >90% - outpt PFTs, PSG - DVT prophylaxis
--- NOTE | 2018-11-28 14:01 | PN ---
Progress Note, Physician History of Present Illness: Pt seen and examined at bedside. He is awake but easily gets drowsy. He denies shortness of breath. - Current Medication List Current Medications: Active Medications Acetaminophen (Tylenol -) 650 mg PO Q6H PRN PRN Reason: PAIN OR FEVER Last Admin: 11/27/18 11:33 Dose: 650 mg Aripiprazole (Abilify) 10 mg PO DAILY [facility] Last Admin: 11/28/18 10:39 Dose: 10 mg Atorvastatin Calcium (Lipitor -) 40 mg PO HS [facility] Last Admin: 11/27/18 22:39 Dose: 40 mg Carvedilol (Coreg -) 25 mg PO BID [facility] Last Admin: 11/28/18 10:39 Dose: 25 mg Heparin Sodium (Porcine) (Heparin -) 5,000 unit SQ TID [facility] Last Admin: 11/28/18 05:43 Dose: Not Given Hydralazine HCl (Apresoline -) 100 mg PO TID [facility] Last Admin: 11/28/18 05:43 Dose: Not Given Sodium Chloride (Normal Saline -) 250 mls @ 3,000 mls/hr IV PRN PRN PRN Reason: Hypotension during Dialysis Stop: 11/26/18 14:12 Piperacillin Sod/Tazobactam (Sod 2.25 gm/ Dextrose) 50 mls @ 100 mls/hr IVPB Q8H-IV RONALD; Protocol Last Admin: 11/28/18 10:38 Dose: 100 mls/hr Insulin Aspart (Novolog Vial Sliding Scale -) 1 vial SQ ACHS [facility]; Protocol Last Admin: 11/28/18 12:46 Dose: Not Given Nifedipine (Procardia Xl -) 60 mg PO DAILY [facility] Last Admin: 11/28/18 10:39 Dose: 60 mg Ondansetron HCl (Zofran Injection) 4 mg IVPB Q6H PRN PRN Reason: NAUSEA Last Admin: 11/27/18 04:40 Dose: 4 mg - Objective Vital Signs: Vital Signs Temperature 98.0 F 11/28/18 09:33 Pulse Rate 82 11/28/18 09:33 Respiratory Rate 20 11/28/18 09:33 Blood Pressure 121/69 11/28/18 09:33 O2 Sat by Pulse Oximetry (%) 96 11/27/18 21:00 Constitutional: Yes: Calm Eyes: Yes: Conjunctiva Clear HENT: Yes: Atraumatic Cardiovascular: Yes: S1, S2 Respiratory: Yes: Wheezes Gastrointestinal: Yes: Soft, Abdomen, Obese Genitourinary: Yes: Incontinence Musculoskeletal: Yes: Muscle Weakness Edema: No Neurological: Yes: Oriented Labs: CBC, BMP 11/28/18 07:30 11/28/18 07:30 INR, PTT INR 1.24 (0.83-1.09) H 11/16/18 19:09 Problem List - Problems (1) Elevated troponin Code(s): R74.8 - ABNORMAL LEVELS OF OTHER SERUM ENZYMES (2) CKD (chronic kidney disease) Code(s): N18.9 - CHRONIC KIDNEY DISEASE, UNSPECIFIED (3) YOCASTA (acute kidney injury) Code(s): N17.9 - ACUTE KIDNEY FAILURE, UNSPECIFIED (4) CHF (congestive heart failure) Code(s): I50.9 - HEART FAILURE, UNSPECIFIED Qualifiers: Heart failure type: unspecified Heart failure chronicity: acute on chronic Qualified Code(s): I50.9 - Heart failure, unspecified Assessment/Plan Current Medications Generic Name Dose Route Start Last Admin Trade Name Freq PRN Reason Stop Dose Admin Acetaminophen 650 mg 11/27/18 04:35 11/27/18 11:33 Tylenol - PO 650 mg Q6H PRN Administration PAIN OR FEVER Aripiprazole 10 mg 11/24/18 10:00 11/28/18 10:39 Abilify PO 10 mg DAILY RONALD Administration Atorvastatin Calcium 40 mg 11/24/18 22:00 11/27/18 22:39 Lipitor - PO 40 mg HS RONALD Administration Carvedilol 25 mg 11/24/18 10:00 11/28/18 10:39 Coreg - PO 25 mg BID RONALD Administration Heparin Sodium (Porcine) 5,000 unit 11/24/18 06:00 11/28/18 05:43 Heparin - SQ Not Given TID RONALD Hydralazine HCl 100 mg 11/24/18 06:00 11/28/18 05:43 Apresoline - PO Not Given TID RONALD Sodium Chloride 250 mls @ 3,000 mls/hr 11/25/18 14:12 Normal Saline - IV 11/26/18 14:12 PRN PRN Hypotension during Dialysis Piperacillin Sod/Tazobactam 50 mls @ 100 mls/hr 11/27/18 19:30 11/28/18 10:38 Sod 2.25 gm/ Dextrose IVPB 100 mls/hr Q8H-IV RONALD Administration Protocol Insulin Aspart 1 vial 11/24/18 07:00 11/28/18 12:46 Novolog Vial Sliding Scale - SQ Not Given ACHS RONALD Protocol Nifedipine 60 mg 11/24/18 10:00 11/28/18 10:39 Procardia Xl - PO 60 mg DAILY RONALD Administration Ondansetron HCl 4 mg 11/27/18 04:10 11/27/18 04:40 Zofran Injection IVPB 4 mg Q6H PRN Administration NAUSEA Impression 1. YOCASTA 2. CKD 3. volume overload 4. HTN poorly controlled 5. CHF 6. DM 7. hx bipolar 8. gout 9. PNA 10. left hydro on ultrasound Plan - follow catheter culture - permacath on hold - repeat labs in am, will evaluate for HD - no great change in mental status - bipap as needed - serologies negative - monitor hg - epogen for anemia - monitor temp
--- NOTE | 2018-11-28 14:59 | PN ---
Physical Exam: SUBJECTIVE: Patient seen and examined at the bedside. OBJECTIVE: hmga1c 6.2. has not required insulin stop novolg ss, check bgms with morning random glucose (morning labs), if elevated then, will restart novolog SS dialysis catheter removed on 11/27/18, secondary to sepsis and catheter tip sent for culture. permacath to be placed once blood cultures are negative patient on zosyn per ID Vital Signs Period Temp Pulse Resp BP Sys/Castillo Pulse Ox Last 24 Hr 97.9 F-98.3 F 82-85 18-22 115-123/68-69 96 GENERAL: The patient is awake, episodes of confusion HEAD: Normal with no signs of trauma. EYES: PERRL, extraocular movements intact, sclera anicteric, conjunctiva clear. No ptosis. ENT: Ears normal, nares patent, oropharynx clear without exudates, moist mucous membranes. NECK: Trachea midline, full range of motion, supple. LUNGS: Breath sounds equal, clear to auscultation bilaterally, no wheezes, no crackles, no accessory muscle use. HEART: Regular rate and rhythm, S1, S2 without murmur, rub or gallop. ABDOMEN: obese abd. EXTREMITIES: 2+ pulses, warm, well-perfused, no edema. NEUROLOGICAL: Cranial nerves II through XII grossly intact. Normal speech, gait not observed. PSYCH: Normal mood, normal affect. SKIN: Warm, dry, normal turgor, no rashes or lesions noted Laboratory Results - last 24 hr 11/18/18 11/25/18 11/25/18 05:30 18:18 21:05 WBC RBC Hgb Hct MCV MCH MCHC RDW Plt Count MPV Absolute Neuts (auto) Neutrophils % Lymphocytes % Monocytes % Eosinophils % Basophils % Nucleated RBC % Hypochromia Platelet Estimate Polychromasia Poikilocytosis Anisocytosis Microcytosis Macrocytosis Tear Drop Cells Stomatocytes Sodium Potassium Chloride Carbon Dioxide Anion Gap BUN Creatinine Creat Clearance w eGFR POC Glucometer 153 126 Random Glucose Calcium Magnesium Total Bilirubin AST ALT Alkaline Phosphatase Total Protein Albumin Random Vancomycin Hepatitis C Genotype 11/27/18 11/27/18 11/28/18 17:17 22:06 06:12 WBC RBC Hgb Hct MCV MCH MCHC RDW Plt Count MPV Absolute Neuts (auto) Neutrophils % Lymphocytes % Monocytes % Eosinophils % Basophils % Nucleated RBC % Hypochromia Platelet Estimate Polychromasia Poikilocytosis Anisocytosis Microcytosis Macrocytosis Tear Drop Cells Stomatocytes Sodium Potassium Chloride Carbon Dioxide Anion Gap BUN Creatinine Creat Clearance w eGFR POC Glucometer 145 145 94 Random Glucose Calcium Magnesium Total Bilirubin AST ALT Alkaline Phosphatase Total Protein Albumin Random Vancomycin Hepatitis C Genotype 11/28/18 11/28/18 11/28/18 07:30 07:30 07:30 WBC 10.3 H RBC 3.41 L Hgb 8.7 L Hct 26.4 L MCV 77.3 L MCH 25.5 L MCHC 33.0 RDW 20.5 H Plt Count 271 MPV 7.6 Absolute Neuts (auto) 7.8 Neutrophils % 75.9 Lymphocytes % 8.4 D Monocytes % 11.6 H Eosinophils % 3.6 Basophils % 0.5 Nucleated RBC % 0 Hypochromia 2+ Platelet Estimate Normal Polychromasia 0 Poikilocytosis 1+ Anisocytosis 2+ Microcytosis 2+ Macrocytosis 0 Tear Drop Cells 1+ Stomatocytes 1+ Sodium 135 L Potassium 3.5 Chloride 94 L Carbon Dioxide 30 Anion Gap 11 BUN 33 H Creatinine 8.8 H* Creat Clearance w eGFR 6.28 POC Glucometer Random Glucose 85 Calcium 8.0 L Magnesium 1.9 Total Bilirubin 0.3 AST 33 ALT 39 Alkaline Phosphatase 104 Total Protein 6.5 Albumin 2.0 L Random Vancomycin 23.8 Hepatitis C Genotype 11/28/18 12:43 WBC RBC Hgb Hct MCV MCH MCHC RDW Plt Count MPV Absolute Neuts (auto) Neutrophils % Lymphocytes % Monocytes % Eosinophils % Basophils % Nucleated RBC % Hypochromia Platelet Estimate Polychromasia Poikilocytosis Anisocytosis Microcytosis Macrocytosis Tear Drop Cells Stomatocytes Sodium Potassium Chloride Carbon Dioxide Anion Gap BUN Creatinine Creat Clearance w eGFR POC Glucometer 144 Random Glucose Calcium Magnesium Total Bilirubin AST ALT Alkaline Phosphatase Total Protein Albumin Random Vancomycin Hepatitis C Genotype Active Medications Generic Name Dose Route Start Last Admin Trade Name Freq PRN Reason Stop Dose Admin Acetaminophen 650 mg 11/27/18 04:35 11/27/18 11:33 Tylenol - PO 650 mg Q6H PRN Administration PAIN OR FEVER Aripiprazole 10 mg 11/24/18 10:00 11/28/18 10:39 Abilify PO 10 mg DAILY RONALD Administration Atorvastatin Calcium 40 mg 11/24/18 22:00 11/27/18 22:39 Lipitor - PO 40 mg HS RONALD Administration Carvedilol 25 mg 11/24/18 10:00 11/28/18 10:39 Coreg - PO 25 mg BID RONALD Administration Heparin Sodium (Porcine) 5,000 unit 11/24/18 06:00 11/28/18 14:47 Heparin - SQ 5,000 unit TID RONALD Administration Hydralazine HCl 100 mg 11/24/18 06:00 11/28/18 14:47 Apresoline - PO 100 mg TID RONALD Administration Sodium Chloride 250 mls @ 3,000 mls/hr 11/25/18 14:12 Normal Saline - IV 11/26/18 14:12 PRN PRN Hypotension during Dialysis Piperacillin Sod/Tazobactam 50 mls @ 100 mls/hr 11/27/18 19:30 11/28/18 10:38 Sod 2.25 gm/ Dextrose IVPB 100 mls/hr Q8H-IV RONALD Administration Protocol Insulin Aspart 1 vial 11/24/18 07:00 11/28/18 12:46 Novolog Vial Sliding Scale - SQ Not Given ACHS RONALD Protocol Nifedipine 60 mg 11/24/18 10:00 11/28/18 10:39 Procardia Xl - PO 60 mg DAILY RONALD Administration Ondansetron HCl 4 mg 11/27/18 04:10 11/27/18 04:40 Zofran Injection IVPB 4 mg Q6H PRN Administration NAUSEA ASSESSMENT/PLAN: Patient is a 58 year old male with a significant past medical history of diastolic CHF, bipolar disorder, depression/anxiety, arthritis, NIDDM, HTN, HLD , gout, CKD stage 4 presented with acute shortness of breath and orthopnea. Card: Hypertensive emergency. resolved. On Procardia xl 60mg daily, hydralazine 100mg tid, coreq 25mg bid. Monitor BP in the setting of kidney disease. elevated troponin In the setting of ckd. evaluated by cardiology. per cardiology, nonischemic pattern, no plans for ischemia workup ID: Sepsis. tmax 101.8, wbc bumped up, now trending down, tachycardia resolved blood and urine cultures ordered and pending - ngtd trialysis catheter removed on 11/27/18 and tip sent for culture On Zosyn per ID Neuro: Acute metabolic encephalopathy secondary to uremia/acute kidney injury. improving drowsy at times, at times more awake BUN/creatinine continue to worsen and now requires dialysis. for a permacath once cultures are negative. Improvement of mental status after HD Bipolar disorder. on abilify Endocrine Diabetic, hmga1c 6.2 Has not required Novolog and in reviewing his BGMs they are have stable. will monitor serum blood glucose with a.m. labs, and if rising, will re-initate novolog Heme: Anemia. s/p 2 units of prbc. Will need procrit per renal. fen no ivf monitor electrolytes renal diet heparin Visit type - Emergency Visit Emergency Visit: Yes ED Registration Date: 11/16/18 Care time: The patient presented to the Emergency Department on the above date and was hospitalized for further evaluation of their emergent condition. - New Patient This patient is new to me today: No - Critical Care Critical Care patient: No - Discharge Referral Referred to [facility] Med [facility] No
--- NOTE | 2018-11-28 16:24 | PN ---
Progress Note, Physician History of Present Illness: AWAKE, MILDLY CONFUSED NO COMPLAINTS OFFERRED TEMPS DOWN AFEBRILE C/S PENDING - Current Medication List Current Medications: Active Medications Acetaminophen (Tylenol -) 650 mg PO Q6H PRN PRN Reason: PAIN OR FEVER Last Admin: 11/27/18 11:33 Dose: 650 mg Aripiprazole (Abilify) 10 mg PO DAILY [facility] Last Admin: 11/28/18 10:39 Dose: 10 mg Atorvastatin Calcium (Lipitor -) 40 mg PO HS [facility] Last Admin: 11/27/18 22:39 Dose: 40 mg Carvedilol (Coreg -) 25 mg PO BID [facility] Last Admin: 11/28/18 10:39 Dose: 25 mg Heparin Sodium (Porcine) (Heparin -) 5,000 unit SQ TID [facility] Last Admin: 11/28/18 14:47 Dose: 5,000 unit Hydralazine HCl (Apresoline -) 100 mg PO TID [facility] Last Admin: 11/28/18 14:47 Dose: 100 mg Sodium Chloride (Normal Saline -) 250 mls @ 3,000 mls/hr IV PRN PRN PRN Reason: Hypotension during Dialysis Stop: 11/26/18 14:12 Piperacillin Sod/Tazobactam (Sod 2.25 gm/ Dextrose) 50 mls @ 100 mls/hr IVPB Q8H-IV [facility]; Protocol Last Admin: 11/28/18 10:38 Dose: 100 mls/hr Nifedipine (Procardia Xl -) 60 mg PO DAILY [facility] Last Admin: 11/28/18 10:39 Dose: 60 mg Ondansetron HCl (Zofran Injection) 4 mg IVPB Q6H PRN PRN Reason: NAUSEA Last Admin: 11/27/18 04:40 Dose: 4 mg - Objective Vital Signs: Vital Signs Temperature 97.8 F 11/28/18 15:08 Pulse Rate 73 11/28/18 15:08 Respiratory Rate 20 11/28/18 15:08 Blood Pressure 126/53 L 11/28/18 15:08 O2 Sat by Pulse Oximetry (%) 96 11/27/18 21:00 Constitutional: Yes: No Distress, Cachectic Eyes: Yes: Conjunctiva Clear Cardiovascular: Yes: Regular Rate and Rhythm, S1, S2 Respiratory: Yes: CTA Bilaterally Gastrointestinal: Yes: Normal Bowel Sounds, Soft, Abdomen, Obese. No: Tenderness Labs: CBC, BMP 11/28/18 07:30 11/28/18 07:30 INR, PTT INR 1.24 (0.83-1.09) H 11/16/18 19:09 Assessment/Plan FEVER ? SOURCE ESRD AWAIT C/S CONTINUE ZOSYN VANCOMYCIN LEVEL THERAPUTIC
[2018-11-28] MEDS: ATORVASTATIN CA 40 MG TABLET (FP) PO SCH (21:59)
[2018-11-29] MEDS ORDERED: PIPERACILLIN/TAZOBACTAM 2.25 GM VIAL IVPB ONE ×2 (00:30→09:21)
[2018-11-29] MEDS ORDERED: DEXTROSE 5%-WATER - 50 ML IVPB ONE ×2 (00:31→09:21)
[2018-11-29] MEDS: PIPERACILLIN/TAZOB 2.25 GM 2.25 GM in DEXTROSE 5%-WATER - 50 ML IVPB SCH ×2 (02:26→10:25)
[2018-11-29] MEDS: hydrALAZINE HCL 50 MG TABLET (FP) PO SCH ×3 (06:19→21:37)
[2018-11-29] MEDS: HEPARIN NA (PORCINE) 5,000 UNITS/ML 1ML VIAL SQ SCH ×3 (06:20→21:38)
[2018-11-29] MEDS: ARIPiprazole 10 MG TABLET PO SCH (09:27)
[2018-11-29] MEDS: CARVEDILOL 25 MG TABLET (FP) PO SCH ×2 (10:17→21:37)
[2018-11-29] MEDS: NIFEdipine E.R 60 MG TABLET (UD) PO SCH (10:18)
[2018-11-29 10:25] LABS: BASO % 0.4 % (0-2.0); EOS % 4.2 % (0-4.5); HEMATOCRIT 27.1 % (35.4-49); HEMOGLOBIN 8.9 GM/dL (11.7-16.9); LYMPH % 8.2 % (8-40); MCH 25.2 pg (25.7-33.7); MEAN CELL VOLUME 76.5 fl (80-96); MEAN PLT VOLUME 8.2 fl (7.5-11.1); NEUT % 77.2 % (42.8-82.8); PLATELET COUNT 307 K/MM3 (134-434); RBC 3.54 M/mm3 (4.00-5.60); RDW 20.1 % (11.9-15.9); WHITE BLOOD COUNT 11.1 K/mm3 (4.0-10.0)
[2018-11-29] MEDS ORDERED: CARVEDILOL 25 MG TABLET (FP) PO SCH (10:28)
[2018-11-29] MEDS ORDERED: NIFEdipine E.R 60 MG TABLET (UD) PO SCH (10:28)
--- NOTE | 2018-11-29 10:57 | PN ---
Progress Note (short form) - Note Progress Note: PULMONARY Denies shortness of breath, cough or wheezing. Vital Signs Period Temp Pulse Resp BP Sys/Castillo Pulse Ox Last 24 Hr 97.8 F-98.8 F 73-85 20-20 108-126/53-74 97 Gen: NAD at rest Heart: RRR Lung: decreased breath sounds at the bases Abd: soft, obese, nontender Ext: no edema CBC, BMP 11/29/18 09:30 Active Medications Acetaminophen (Tylenol -) 650 mg PO Q6H PRN PRN Reason: PAIN OR FEVER Last Admin: 11/27/18 11:33 Dose: 650 mg Aripiprazole (Abilify) 10 mg PO DAILY [facility] Last Admin: 11/29/18 09:27 Dose: 10 mg Atorvastatin Calcium (Lipitor -) 40 mg PO HS [facility] Last Admin: 11/28/18 21:59 Dose: 40 mg Carvedilol (Coreg -) 25 mg PO BID [facility] Heparin Sodium (Porcine) (Heparin -) 5,000 unit SQ TID [facility] Last Admin: 11/29/18 06:20 Dose: 5,000 unit Hydralazine HCl (Apresoline -) 100 mg PO TID [facility] Last Admin: 11/29/18 06:19 Dose: 100 mg Sodium Chloride (Normal Saline -) 250 mls @ 3,000 mls/hr IV PRN PRN PRN Reason: Hypotension during Dialysis Stop: 11/26/18 14:12 Piperacillin Sod/Tazobactam (Sod 2.25 gm/ Dextrose) 50 mls @ 100 mls/hr IVPB Q8H-IV [facility]; Protocol Last Admin: 11/29/18 10:25 Dose: 100 mls/hr Nifedipine (Procardia Xl -) 60 mg PO DAILY [facility] Ondansetron HCl (Zofran Injection) 4 mg IVPB Q6H PRN PRN Reason: NAUSEA Last Admin: 11/27/18 04:40 Dose: 4 mg A/P Hypertensive Urgency resolved Acute on Chronic Renal Failure requiring HD r/o Pneumonia Acute on Chronic Diastolic Heart Failure Morbid Obesity 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
[2018-11-29 11:04] LABS: ALBUMIN 2.1 g/dl (3.4-5.0); ALK PHOS 103 U/L (45-117); ANION GAP 11 MMOL/L (8-16); BILIRUBIN,TOTAL 0.4 mg/dL (0.2-1); BLOOD UREA NITROGEN 39 mg/dL (7-18); CALCIUM 7.5 mg/dL (8.5-10.1); CHLORIDE 94 mmol/L (98-107); CO2 28 mmol/L (21-32); GLUCOSE,RANDOM 94 mg/dL (74-106); MAGNESIUM 1.8 mg/dL (1.8-2.4); PHOSPHOROUS 6.8 mg/dL (2.5-4.9); POTASSIUM 3.7 mmol/L (3.5-5.1); SGOT/AST 20 U/L (15-37); SGPT/ALT 36 U/L (13-61); SODIUM 133 mmol/L (136-145); TOT PROT 6.8 g/dl (6.4-8.2)
[2018-11-29 11:10] LABS: CREATININE 10.8 mg/dL (0.55-1.3)
--- NOTE | 2018-11-29 14:07 | PN ---
Progress Note, Physician History of Present Illness: AWAKE, ALERT NO COMPLAINTS OFFERRED TEMPS DOWN AFEBRILE BC NO GROWTH - Current Medication List Current Medications: Active Medications Acetaminophen (Tylenol -) 650 mg PO Q6H PRN PRN Reason: PAIN OR FEVER Last Admin: 11/27/18 11:33 Dose: 650 mg Aripiprazole (Abilify) 10 mg PO DAILY [facility] Last Admin: 11/29/18 09:27 Dose: 10 mg Atorvastatin Calcium (Lipitor -) 40 mg PO HS [facility] Last Admin: 11/28/18 21:59 Dose: 40 mg Carvedilol (Coreg -) 25 mg PO BID [facility] Heparin Sodium (Porcine) (Heparin -) 5,000 unit SQ TID [facility] Last Admin: 11/29/18 06:20 Dose: 5,000 unit Hydralazine HCl (Apresoline -) 100 mg PO TID [facility] Last Admin: 11/29/18 06:19 Dose: 100 mg Sodium Chloride (Normal Saline -) 250 mls @ 3,000 mls/hr IV PRN PRN PRN Reason: Hypotension during Dialysis Stop: 11/26/18 14:12 Piperacillin Sod/Tazobactam (Sod 2.25 gm/ Dextrose) 50 mls @ 100 mls/hr IVPB Q8H-IV [facility]; Protocol Last Admin: 11/29/18 10:25 Dose: 100 mls/hr Nifedipine (Procardia Xl -) 60 mg PO DAILY [facility] Ondansetron HCl (Zofran Injection) 4 mg IVPB Q6H PRN PRN Reason: NAUSEA Last Admin: 11/27/18 04:40 Dose: 4 mg Sevelamer Carbonate (Renvela -) 800 mg PO TIDCM [facility] - Objective Vital Signs: Vital Signs Temperature 97.9 F 11/29/18 10:00 Pulse Rate 86 11/29/18 10:00 Respiratory Rate 20 11/29/18 10:00 Blood Pressure 102/50 L 11/29/18 10:00 O2 Sat by Pulse Oximetry (%) 97 11/28/18 21:00 Constitutional: Yes: No Distress, Obese Cardiovascular: Yes: Regular Rate and Rhythm, S1, S2 Respiratory: Yes: CTA Bilaterally Gastrointestinal: Yes: Normal Bowel Sounds, Soft, Abdomen, Obese. No: Tenderness Edema: Yes Labs: CBC, BMP 11/29/18 09:30 11/29/18 09:30 INR, PTT INR 1.24 (0.83-1.09) H 11/16/18 19:09 Assessment/Plan FEVER ? SOURCE NO RECURRENT TEMP BC NO GROWTH ESRD D/C ANTIBIOTICS NO OBJECTION TO DIALYSIS CATHETER PLACEMENT
[2018-11-29] MEDS ORDERED: POVIDONE-IODINE OINTMENT 10% - 28.4 GM TUBE ONE (14:48)
[2018-11-29] MEDS ORDERED: HEPARIN NA (PORCINE) 5,000 UNITS/ML 1ML VIAL ONE (14:48)
[2018-11-29] MEDS ORDERED: LIDOCAINE HCL 1%, 10 MG/ML (20ML VIAL) ONE (14:48)
[2018-11-29] MEDS ORDERED: MIDAZOLAM HCL 2 MG/2 ML SINGLE DOSE VIAL ONE (15:50)
[2018-11-29] MEDS ORDERED: ONDANSETRON 4 MG/2 ML VIAL IVPUSH PRN (15:59)
[2018-11-29] MEDS ORDERED: LIDOCAINE HCL 1%, 10 MG/ML (20ML VIAL) INF ONE ×2 (16:00)
--- NOTE | 2018-11-29 16:33 | OP ---
Operative Note - Note: Operative Date: 11/29/18 Pre-Operative Diagnosis: ESRD Operation: Insertion of permacath Post-Operative Diagnosis: Same as Pre-op Surgeon: Go Argueta Anesthesia: Fractional Estimated Blood Loss (mls): 20 Operative Report Dictated: Yes
[2018-11-29] MEDS ORDERED: ACETAMINOPHEN 325 MG TABLET (FP) PO PRN (16:39)
[2018-11-29] MEDS ORDERED: ONDANSETRON 4 MG/2 ML VIAL IVPB PRN (16:39)
[2018-11-29] MEDS ORDERED: SODIUM CHLORIDE 250 ML IV PRN (16:39)
[2018-11-29] MEDS ORDERED: EPOETIN ALFA 2,000 UNIT/1 ML VIAL IVPUSH ONE (16:39)
--- NOTE | 2018-11-29 17:27 | PN ---
Progress Note, Physician History of Present Illness: 24HR EVENTS -Antibiotics d/wilfred -Permacath to be inserted this afternoon -BUN/Cr continues to uptrend, pt will most likely receive HD on 11/30 - Current Medication List Current Medications: Active Medications Acetaminophen (Tylenol -) 650 mg PO Q6H PRN PRN Reason: PAIN OR FEVER Aripiprazole (Abilify) 10 mg PO DAILY [facility] Atorvastatin Calcium (Lipitor -) 40 mg PO HS [facility] Carvedilol (Coreg -) 25 mg PO BID [facility] Epoetin Shawn (Epogen -) 5,000 unit IVPUSH ONCE ONE Stop: 11/29/18 16:40 Fentanyl (Sublimaze Injection -) 25 mcg IVPUSH Q5M PRN PRN Reason: PAIN-PACU ORDER X 4 DOSES ONLY Stop: 11/30/18 03:00 Heparin Sodium (Porcine) (Heparin -) 5,000 unit SQ TID [facility] Hydralazine HCl (Apresoline -) 100 mg PO TID [facility] Sodium Chloride (Normal Saline -) 250 mls @ 3,000 mls/hr IV PRN PRN PRN Reason: Hypotension during Dialysis Nifedipine (Procardia Xl -) 60 mg PO DAILY [facility] Ondansetron HCl (Zofran Injection) 4 mg IVPB Q6H PRN PRN Reason: NAUSEA Sevelamer Carbonate (Renvela -) 800 mg PO TIDCM [facility] - Objective Vital Signs: Vital Signs Temperature 98.0 F 11/29/18 16:24 Pulse Rate 82 11/29/18 16:40 Respiratory Rate 16 11/29/18 16:40 Blood Pressure 135/83 11/29/18 16:40 O2 Sat by Pulse Oximetry (%) 97 11/29/18 16:40 Constitutional: Yes: No Distress, Calm Eyes: Yes: Conjunctiva Clear HENT: Yes: Atraumatic, Normocephalic Neck: Yes: Supple, Trachea Midline Cardiovascular: Yes: Regular Rate and Rhythm Respiratory: Yes: Regular, CTA Bilaterally Gastrointestinal: Yes: Normal Bowel Sounds, Abdomen, Obese ...Rectal Exam: Yes: Deferred Genitourinary: Yes: Oliguria Musculoskeletal: Yes: WNL Extremities: Yes: WNL Edema: No Peripheral Pulses WNL: Yes Peripheral Pulses: Left Radial: 2+, Right Radial: 2+, Left Doralis Pedis: 1+, Right Dorsalis Pedis: 1+ Integumentary: Yes: WNL Neurological: Yes: Alert, Oriented, Unsteady Gait (uses Wheelchair) ...Motor Strength: WNL (CXR) Psychiatric: Yes: Alert, Oriented Labs: CBC, BMP 11/29/18 09:30 11/29/18 09:30 INR, PTT INR 1.24 (0.83-1.09) H 11/16/18 19:09 - ....Imaging X-ray: Report Reviewed (CXR 11/29/2018 Impression: No pneumothorax is identified. Status post permacath placement.) Problem List - Problems (1) ESRD needing dialysis Assessment/Plan: permacath placement today for possible HD on 11/30 start revela for elevated phos procrit 5000units weekly Renal diet Nephrology following Code(s): N18.6 - END STAGE RENAL DISEASE; Z99.2 - DEPENDENCE ON RENAL DIALYSIS (2) Prophylactic measure Assessment/Plan: heparin SC tid pt with loose stools, no bowel regimen OOB to chair Code(s): Z29.9 - ENCOUNTER FOR PROPHYLACTIC MEASURES, UNSPECIFIED (3) CHF (congestive heart failure) Assessment/Plan: coreg 25mg BID cardiac diet Code(s): I50.9 - HEART FAILURE, UNSPECIFIED Qualifiers: Heart failure type: unspecified Heart failure chronicity: acute on chronic Qualified Code(s): I50.9 - Heart failure, unspecified (4) Hypertension Assessment/Plan: coreg 25mg BID Procardia xl 60mg daily, hydralazine 100mg tid, coreq 25mg bid. trend BP Code(s): I10 - ESSENTIAL (PRIMARY) HYPERTENSION (5) MOLLY (obstructive sleep apnea) Assessment/Plan: consider BIPAP at night Code(s): G47.33 - OBSTRUCTIVE SLEEP APNEA (ADULT) (PEDIATRIC) (6) Inability to ambulate due to multiple joints Assessment/Plan: ASsist with ADLs Wheelchair for mobility tylenol PRN pain Code(s): R26.2 - DIFFICULTY IN WALKING, NOT ELSEWHERE CLASSIFIED (7) Bipolar 1 disorder Assessment/Plan: abilify 10mg daily Code(s): F31.9 - BIPOLAR DISORDER, UNSPECIFIED Impression/Plan Impression/Plan: DISPO: Full code Visit type - Emergency Visit Emergency Visit: Yes ED Registration Date: 11/16/18 Care time: The patient presented to the Emergency Department on the above date and was hospitalized for further evaluation of their emergent condition. - New Patient This patient is new to me today: Yes Date on this admission: 11/29/18 - Critical Care Critical Care patient: No - Discharge Referral Referred to [facility] No
[2018-11-29] MEDS ORDERED: SEVELAMER CARBONATE 800 MG TAB (FP) PO SCH (17:30)
--- NOTE | 2018-11-29 18:01 | PN ---
Progress Note, Physician History of Present Illness: Pt seen and examined at bedside in recovery room. He is awake and alert. He denies shortness of breath. He does not want HD today and asks for it to be done tomorrow. He is hungry and asking for food. Mental status appears to be back to baseline. - Current Medication List Current Medications: Active Medications Acetaminophen (Tylenol -) 650 mg PO Q6H PRN PRN Reason: PAIN OR FEVER Aripiprazole (Abilify) 10 mg PO DAILY [facility] Atorvastatin Calcium (Lipitor -) 40 mg PO HS [facility] Carvedilol (Coreg -) 25 mg PO BID [facility] Epoetin Shawn (Epogen -) 5,000 unit IVPUSH ONCE ONE Stop: 11/29/18 16:40 Fentanyl (Sublimaze Injection -) 25 mcg IVPUSH Q5M PRN PRN Reason: PAIN-PACU ORDER X 4 DOSES ONLY Stop: 11/30/18 03:00 Heparin Sodium (Porcine) (Heparin -) 5,000 unit SQ TID [facility] Hydralazine HCl (Apresoline -) 100 mg PO TID [facility] Sodium Chloride (Normal Saline -) 250 mls @ 3,000 mls/hr IV PRN PRN PRN Reason: Hypotension during Dialysis Nifedipine (Procardia Xl -) 60 mg PO DAILY [facility] Ondansetron HCl (Zofran Injection) 4 mg IVPB Q6H PRN PRN Reason: NAUSEA Sevelamer Carbonate (Renvela -) 800 mg PO TIDCM [facility] - Objective Vital Signs: Vital Signs Temperature 98.0 F 11/29/18 17:10 Pulse Rate 86 11/29/18 17:10 Respiratory Rate 16 11/29/18 17:10 Blood Pressure 140/80 11/29/18 17:10 O2 Sat by Pulse Oximetry (%) 97 11/29/18 16:55 Constitutional: Yes: Calm Eyes: Yes: Conjunctiva Clear HENT: Yes: Atraumatic Neck: Yes: Supple Cardiovascular: Yes: S1, S2 Respiratory: Yes: On Nasal O2 Gastrointestinal: Yes: Soft, Abdomen, Obese Genitourinary: Yes: WNL Musculoskeletal: Yes: WNL Edema: Yes Edema: LLE: Trace, RLE: Trace Neurological: Yes: Oriented Psychiatric: Yes: Oriented Labs: CBC, BMP 11/29/18 09:30 11/29/18 09:30 INR, PTT INR 1.24 (0.83-1.09) H 11/16/18 19:09 - ....Imaging Chest X-ray: Report Reviewed Problem List - Problems (1) Elevated troponin Code(s): R74.8 - ABNORMAL LEVELS OF OTHER SERUM ENZYMES (2) CKD (chronic kidney disease) Code(s): N18.9 - CHRONIC KIDNEY DISEASE, UNSPECIFIED (3) YOCASTA (acute kidney injury) Code(s): N17.9 - ACUTE KIDNEY FAILURE, UNSPECIFIED (4) CHF (congestive heart failure) Code(s): I50.9 - HEART FAILURE, UNSPECIFIED Qualifiers: Heart failure type: unspecified Heart failure chronicity: acute on chronic Qualified Code(s): I50.9 - Heart failure, unspecified Assessment/Plan Current Medications Generic Name Dose Route Start Last Admin Trade Name Freq PRN Reason Stop Dose Admin Acetaminophen 650 mg 11/29/18 16:39 Tylenol - PO Q6H PRN PAIN OR FEVER Aripiprazole 10 mg 11/30/18 10:00 Abilify PO DAILY [facility] Atorvastatin Calcium 40 mg 11/29/18 22:00 Lipitor - PO HS [facility] Carvedilol 25 mg 11/29/18 22:00 Coreg - PO BID [facility] Epoetin Shawn 5,000 unit 11/29/18 16:39 Epogen - IVPUSH 11/29/18 16:40 ONCE ONE Fentanyl 25 mcg 11/29/18 16:39 Sublimaze Injection - IVPUSH 11/30/18 03:00 Q5M PRN PAIN-PACU ORDER X 4 DOSES ONLY Heparin Sodium (Porcine) 5,000 unit 11/29/18 22:00 Heparin - SQ TID [facility] Hydralazine HCl 100 mg 11/29/18 22:00 Apresoline - PO TID [facility] Sodium Chloride 250 mls @ 3,000 mls/hr 11/29/18 16:39 Normal Saline - IV PRN PRN Hypotension during Dialysis Nifedipine 60 mg 11/30/18 10:00 Procardia Xl - PO DAILY [facility] Ondansetron HCl 4 mg 11/29/18 16:39 Zofran Injection IVPB Q6H PRN NAUSEA Sevelamer Carbonate 800 mg 11/29/18 17:30 Renvela - PO TIDCM [facility] Impression 1. YOCASTA 2. CKD 3. volume overload 4. HTN poorly controlled 5. CHF 6. DM 7. hx bipolar 8. gout 9. PNA 10. left hydro on ultrasound 11. PNA Plan - cultures negative to date, called and discussed with ID earlier today - permacath placed, discussed with vascular earlier after getting clearance from ID - will arrange for HD tomorrow - cxr report reviewed - serologies negative so far - will need outpt HD placement - epogen for anemia - mental status has improved - urology eval for left hydro
[2018-11-29] MEDS: SEVELAMER CARBONATE 800 MG TAB (FP) PO SCH (18:21)
--- NOTE | 2018-11-29 19:14 | OP ---
DATE OF OPERATION: 11/29/2018 PREOPERATIVE DIAGNOSIS: End-stage renal disease. POSTOPERATIVE DIAGNOSIS: End-stage renal disease. PROCEDURE: Insertion of PermCath. SURGEON: Go Shaver DO ANESTHESIA: Fractional. BLOOD LOSS: 20 mL. INDICATIONS: The patient is a 58-year-old male who comes in with a dislodged PermCath. He then had an infection of his Shiley and needed antibiotics. He is now cleared by Infectious Disease for a new catheter. The patient was consented for the procedure understanding all risks, benefits, and alternatives and taken to the operating room. DESCRIPTION OF PROCEDURE: Once in the operating room, laid on the operating table in supine position, and the area of the right neck and chest were prepped and draped in a sterile surgical manner. Under ultrasound guidance, we were able to visualize the right internal jugular vein, and 10 mL of lidocaine 1% was injected there. We then took our micropuncture needle and punctured the right internal jugular vein under ultrasound guidance. Micropuncture wire was inserted. A micropuncture sheath was inserted, and a 0.035 floppy guidewire was inserted. We then injected 10 mL of lidocaine 1% above and below the clavicle. We then took an 11-blade and made a 1-cm incision at the puncture site. We then took our 15-blade and made a 1-cm incision below the clavicle. We then tunneled the PermCath up to the puncture site. We then took our breakaway sheath and placed it over the guidewire into the vein under fluoroscopy, and the cannula and guidewire were removed. The catheter was placed inside the sheath. The sheath was broken away as the catheter was placed inside the vein. The neck of the catheter was nice and smooth. The tip of the catheter was located outside the right atrium. We then kaushik back on each port of the catheter, and there was good flow. Heparinized saline was injected. Then 2000 units of IV heparin was injected into each port. We then took 4-0 Biosyn, and 2 simple sutures were placed at the puncture site. Then 3-0 nylon used, and the catheter was attached to the skin. Biopatch, Steri-Strips, 4x4s, and Tegaderms were placed. The patient tolerated the procedure with no complications. The patient was transferred to the PACU in stable condition where a chest x-ray will be ordered. GO SHAVER DO NP/[id number]
[2018-11-29] MEDS ORDERED: oxyCODONE HCL 5 MG TABLET PO ONE (21:23)
[2018-11-29] MEDS ORDERED: ATORVASTATIN CA 40 MG TABLET (FP) PO SCH (22:00)
[2018-11-30] MEDS: hydrALAZINE HCL 50 MG TABLET (FP) PO SCH ×3 (05:54→14:12)
[2018-11-30] MEDS: HEPARIN NA (PORCINE) 5,000 UNITS/ML 1ML VIAL SQ SCH ×2 (05:54→14:13)
[2018-11-30 07:39] LABS: HEMATOCRIT 27.3 % (35.4-49); MCH 25.3 pg (25.7-33.7); MCHC 33.1 g/dl (32.0-35.9); MEAN CELL VOLUME 76.7 fl (80-96); MEAN PLT VOLUME 8.5 fl (7.5-11.1); PLATELET COUNT 294 K/MM3 (134-434); RBC 3.56 M/mm3 (4.00-5.60); RDW 20.1 % (11.9-15.9); WHITE BLOOD COUNT 9.2 K/mm3 (4.0-10.0)
[2018-11-30 07:44] LABS: ALBUMIN 2.2 g/dl (3.4-5.0); ALK PHOS 101 U/L (45-117); ANION GAP 12 MMOL/L (8-16); BILIRUBIN,TOTAL 0.4 mg/dL (0.2-1); BLOOD UREA NITROGEN 45 mg/dL (7-18); CALCIUM 7.4 mg/dL (8.5-10.1); CHLORIDE 96 mmol/L (98-107); CO2 28 mmol/L (21-32); GLUCOSE,RANDOM 84 mg/dL (74-106); MAGNESIUM 2.1 mg/dL (1.8-2.4); PHOSPHOROUS 7.8 mg/dL (2.5-4.9); SGOT/AST 17 U/L (15-37); SGPT/ALT 30 U/L (13-61); SODIUM 135 mmol/L (136-145); TOT PROT 6.8 g/dl (6.4-8.2)
[2018-11-30 08:22] LABS: CREATININE 12.1 mg/dL (0.55-1.3)
[2018-11-30] MEDS ORDERED: HEPARIN NA (PORCINE) 5,000 UNITS/ML 1ML VIAL IVPUSH ONE (10:00)
[2018-11-30] MEDS ORDERED: ARIPiprazole 10 MG TABLET PO SCH (10:00)
[2018-11-30] MEDS ORDERED: NIFEdipine E.R 60 MG TABLET (UD) PO SCH (10:00)
[2018-11-30] MEDS ORDERED: SODIUM CHLORIDE 250 ML IV PRN (10:00)
[2018-11-30] MEDS ORDERED: EPOETIN ALFA 3,000 UNIT/1 ML ML IVPUSH ONE (10:00)
[2018-11-30] MEDS: SEVELAMER CARBONATE 800 MG TAB (FP) PO SCH ×2 (10:52→13:30)
[2018-11-30] MEDS: CARVEDILOL 25 MG TABLET (FP) PO SCH (10:52)
[2018-11-30] MEDS ORDERED: PT OWN MED DRAWER 7, Y5N ONE (10:54)
--- NOTE | 2018-11-30 11:26 | PN ---
Physical Exam: SUBJECTIVE: Patient seen and examined OBJECTIVE: Vital Signs Period Temp Pulse Resp BP Sys/Castillo Pulse Ox Last 24 Hr 97.0 F-98.2 F 74-105 16-20 101-140/52-97 97-100 GENERAL: The patient is awake, alert, and fully oriented, in no acute distress. HEAD: Normal with no signs of trauma. EYES: PERRL, extraocular movements intact, sclera anicteric, conjunctiva clear. No ptosis. ENT: Ears normal, nares patent, oropharynx clear without exudates, moist mucous membranes. NECK: Trachea midline, full range of motion, supple. LUNGS: Breath sounds equal, clear to auscultation bilaterally, no wheezes, no crackles, no accessory muscle use. HEART: Regular rate and rhythm, S1, S2 without murmur, rub or gallop. ABDOMEN: Soft, nontender, nondistended, normoactive bowel sounds, no guarding, no rebound, no hepatosplenomegaly, no masses. EXTREMITIES: 2+ pulses, warm, well-perfused, no edema. NEUROLOGICAL: Cranial nerves II through XII grossly intact. Normal speech, gait not observed. PSYCH: Normal mood, normal affect. SKIN: Warm, dry, normal turgor, no rashes or lesions noted Laboratory Results - last 24 hr 11/30/18 11/30/18 05:40 06:00 WBC 9.2 RBC 3.56 L Hgb 9.0 L Hct 27.3 L MCV 76.7 L MCH 25.3 L MCHC 33.1 RDW 20.1 H Plt Count 294 MPV 8.5 Sodium 135 L Potassium 4.0 Chloride 96 L Carbon Dioxide 28 Anion Gap 12 BUN 45 H Creatinine 12.1 H* Creat Clearance w eGFR 4.35 Random Glucose 84 Calcium 7.4 L Phosphorus 7.8 H Magnesium 2.1 Total Bilirubin 0.4 AST 17 ALT 30 Alkaline Phosphatase 101 Total Protein 6.8 Albumin 2.2 L Active Medications Generic Name Dose Route Start Last Admin Trade Name Freq PRN Reason Stop Dose Admin Acetaminophen 650 mg 11/29/18 16:39 11/29/18 18:26 Tylenol - PO 650 mg Q6H PRN Administration PAIN OR FEVER Aripiprazole 10 mg 11/30/18 10:00 11/30/18 10:55 Abilify PO 10 mg DAILY [facility] Administration Atorvastatin Calcium 40 mg 11/29/18 22:00 11/29/18 21:37 Lipitor - PO 40 mg HS [facility] Administration Carvedilol 25 mg 11/29/18 22:00 11/30/18 10:52 Coreg - PO 25 mg BID [facility] Administration Heparin Sodium (Porcine) 5,000 unit 11/29/18 22:00 11/30/18 05:54 Heparin - SQ 5,000 unit TID [facility] Administration Hydralazine HCl 100 mg 11/29/18 22:00 11/30/18 06:23 Apresoline - PO Not Given TID [facility] Nifedipine 60 mg 11/30/18 10:00 11/30/18 10:53 Procardia Xl - PO 60 mg DAILY [facility] Administration Ondansetron HCl 4 mg 11/29/18 16:39 Zofran Injection IVPB Q6H PRN NAUSEA Sevelamer Carbonate 800 mg 11/29/18 17:30 11/30/18 10:52 Renvela - PO 800 mg TIDCM [facility] Administration ASSESSMENT/PLAN:
--- NOTE | 2018-11-30 12:55 | PN ---
Progress Note, Physician History of Present Illness: Pt seen and examined at bedside. He is awake and alert. He tolerated HD. His mental status is back to baseline. - Current Medication List Current Medications: Active Medications Acetaminophen (Tylenol -) 650 mg PO Q6H PRN PRN Reason: PAIN OR FEVER Last Admin: 11/29/18 18:26 Dose: 650 mg Aripiprazole (Abilify) 10 mg PO DAILY [facility] Last Admin: 11/30/18 10:55 Dose: 10 mg Atorvastatin Calcium (Lipitor -) 40 mg PO HS [facility] Last Admin: 11/29/18 21:37 Dose: 40 mg Carvedilol (Coreg -) 25 mg PO BID [facility] Last Admin: 11/30/18 10:52 Dose: 25 mg Heparin Sodium (Porcine) (Heparin -) 5,000 unit SQ TID [facility] Last Admin: 11/30/18 05:54 Dose: 5,000 unit Hydralazine HCl (Apresoline -) 100 mg PO TID [facility] Last Admin: 11/30/18 06:23 Dose: Not Given Nifedipine (Procardia Xl -) 60 mg PO DAILY [facility] Last Admin: 11/30/18 10:53 Dose: 60 mg Ondansetron HCl (Zofran Injection) 4 mg IVPB Q6H PRN PRN Reason: NAUSEA Sevelamer Carbonate (Renvela -) 800 mg PO TIDCM [facility] Last Admin: 11/30/18 10:52 Dose: 800 mg - Objective Vital Signs: Vital Signs Temperature 98.0 F 11/30/18 10:48 Pulse Rate 96 H 11/30/18 10:48 Respiratory Rate 18 11/30/18 10:48 Blood Pressure 135/72 11/30/18 10:48 O2 Sat by Pulse Oximetry (%) 97 11/29/18 21:00 Constitutional: Yes: Calm Eyes: Yes: Conjunctiva Clear HENT: Yes: Atraumatic Neck: Yes: Supple Cardiovascular: Yes: S1, S2 Respiratory: Yes: CTA Bilaterally Gastrointestinal: Yes: Normal Bowel Sounds, Soft, Abdomen, Obese Genitourinary: Yes: WNL Musculoskeletal: Yes: WNL Edema: No Neurological: Yes: Oriented Psychiatric: Yes: Oriented Labs: CBC, BMP 11/30/18 05:40 11/30/18 06:00 INR, PTT INR 1.24 (0.83-1.09) H 11/16/18 19:09 Problem List - Problems (1) Elevated troponin Code(s): R74.8 - ABNORMAL LEVELS OF OTHER SERUM ENZYMES (2) CKD (chronic kidney disease) Code(s): N18.9 - CHRONIC KIDNEY DISEASE, UNSPECIFIED (3) YOCASTA (acute kidney injury) Code(s): N17.9 - ACUTE KIDNEY FAILURE, UNSPECIFIED (4) CHF (congestive heart failure) Code(s): I50.9 - HEART FAILURE, UNSPECIFIED Qualifiers: Heart failure type: unspecified Heart failure chronicity: acute on chronic Qualified Code(s): I50.9 - Heart failure, unspecified Assessment/Plan Current Medications Generic Name Dose Route Start Last Admin Trade Name Freq PRN Reason Stop Dose Admin Acetaminophen 650 mg 11/29/18 16:39 11/29/18 18:26 Tylenol - PO 650 mg Q6H PRN Administration PAIN OR FEVER Aripiprazole 10 mg 11/30/18 10:00 11/30/18 10:55 Abilify PO 10 mg DAILY [facility] Administration Atorvastatin Calcium 40 mg 11/29/18 22:00 11/29/18 21:37 Lipitor - PO 40 mg HS [facility] Administration Carvedilol 25 mg 11/29/18 22:00 11/30/18 10:52 Coreg - PO 25 mg BID [facility] Administration Heparin Sodium (Porcine) 5,000 unit 11/29/18 22:00 11/30/18 05:54 Heparin - SQ 5,000 unit TID [facility] Administration Hydralazine HCl 100 mg 11/29/18 22:00 11/30/18 06:23 Apresoline - PO Not Given TID [facility] Nifedipine 60 mg 11/30/18 10:00 11/30/18 10:53 Procardia Xl - PO 60 mg DAILY [facility] Administration Ondansetron HCl 4 mg 11/29/18 16:39 Zofran Injection IVPB Q6H PRN NAUSEA Sevelamer Carbonate 800 mg 11/29/18 17:30 11/30/18 10:52 Renvela - PO 800 mg TIDCM [facility] Administration Impression 1. YOCASTA 2. CKD 3. volume overload 4. HTN poorly controlled 5. CHF 6. DM 7. hx bipolar 8. gout 9. PNA 10. left hydro on ultrasound 11. PNA 12. ESRD Plan - pt had permacath yest - he tolerated HD today - will need placement for HD - serologies negative so far - epogen for anemia - mental status has improved - urology eval for left hydro
--- NOTE | 2018-11-30 14:53 | DS ---
Physical Exam: SUBJECTIVE: Patient seen and examined OBJECTIVE: Vital Signs Period Temp Pulse Resp BP Sys/Castillo Pulse Ox Last 24 Hr 97.0 F-98.1 F 74-105 16-20 101-140/52-97 97-100 PHYSICAL EXAM GENERAL: The patient is awake, alert, and fully oriented, in no acute distress. HEAD: Normal with no signs of trauma. EYES: PERRL, extraocular movements intact, sclera anicteric, conjunctiva clear. ENT: Ears normal, nares patent, oropharynx clear without exudates, moist mucous membranes. NECK: Trachea midline, full range of motion, supple. LUNGS: Breath sounds equal, clear to auscultation bilaterally, no wheezes, no crackles, no accessory muscle use. HEART: Regular rate and rhythm, S1, S2 without murmur, rub or gallop. ABDOMEN: Soft, nontender, nondistended, normoactive bowel sounds, no guarding, no rebound, no hepatosplenomegaly, no masses. EXTREMITIES: 2+ pulses, warm, well-perfused, no edema. NEUROLOGICAL: Cranial nerves II through XII grossly intact. Normal speech, gait not observed. PSYCH: Normal mood, normal affect. SKIN: Warm, dry, normal turgor, no rashes or lesions noted. LABS Laboratory Results - last 24 hr 11/30/18 11/30/18 05:40 06:00 WBC 9.2 RBC 3.56 L Hgb 9.0 L Hct 27.3 L MCV 76.7 L MCH 25.3 L MCHC 33.1 RDW 20.1 H Plt Count 294 MPV 8.5 Sodium 135 L Potassium 4.0 Chloride 96 L Carbon Dioxide 28 Anion Gap 12 BUN 45 H Creatinine 12.1 H* Creat Clearance w eGFR 4.35 Random Glucose 84 Calcium 7.4 L Phosphorus 7.8 H Magnesium 2.1 Total Bilirubin 0.4 AST 17 ALT 30 Alkaline Phosphatase 101 Total Protein 6.8 Albumin 2.2 L HOSPITAL COURSE: Date of Admission:11/16/18 Date of Discharge: 11/30/18 Discharge Summary Reason For Visit: MORBID OR SEVERE OBESITY DUE TO EXCESS CALORIES HY Current Active Problems YOCASTA (acute kidney injury) (Acute) Acute diastolic heart failure (Acute) Acute metabolic encephalopathy (Acute) Bipolar 1 disorder (Acute) ESRD needing dialysis (Acute) Elevated troponin (Acute) Hypertensive emergency (Acute) Pneumonia (Acute) Prophylactic measure (Acute) Sepsis (Acute) Anemia (Chronic) Bipolar 1 disorder (Chronic) Chronic diastolic heart failure (Chronic) Hypertension (Chronic) Morbid (severe) obesity due to excess calories (Chronic) MOLLY (obstructive sleep apnea) (Chronic) Stage 4 chronic kidney disease (Chronic) Type 2 diabetes mellitus (Chronic) Condition: Improved - Instructions Diet, Activity, Other Instructions: Diet: Renal Activity: As tolerated Disposition: HALF-WAY FACILITY - Home Medications Comprehensive Discharge Medication List: Ambulatory Orders Aripiprazole [Abilify] 10 mg PO DAILY 04/24/17 Atorvastatin Ca [Lipitor] 40 mg PO HS 04/24/17 Albuterol 0.083% Nebulizer Jaclyn [Ventolin 0.083% Nebulizer Soln -] 1 amp NEB Q4H PRN #1 amp 08/02/18 Carvedilol [Coreg -] 25 mg PO BID #60 tablet 08/02/18 Nifedipine ER [Procardia XL -] 60 mg PO DAILY #30 tab.er.24 08/02/18 hydrALAZINE HCL [Apresoline -] 100 mg PO TID #90 tablet 08/02/18 Sevelamer Carbonate [Renvela -] 800 mg PO TIDCM tab 11/30/18 - Discharge Referral Referred to [facility] No
[2018-11-30 15:32] VITALS: BP 116/61; PULSE 80; TEMP 98.1
== END 2018-11-30 17:47 | DRG 871 ==
LOC: JER 18:01 → JERBED 23:03 → J4W 11-17 09:28 → J5S 11-24 01:41
PROVIDERS: ADMIT Internal Medicine; ATTEND Internal Medicine
PROC: 30233N1 Transfusion of Nonautologous Red Blood Cells into Peripheral Vein, Percutaneous Approach (ICD-10-PCS; 2018-11-18)
PROC: 05HM33Z Insertion of Infusion Device into Right Internal Jugular Vein, Percutaneous Approach (ICD-10-PCS; 2018-11-21)
PROC: 05HM33Z Insertion of Infusion Device into Right Internal Jugular Vein, Percutaneous Approach (ICD-10-PCS; 2018-11-29)
PROC: B513ZZA Fluoroscopy of Right Jugular Veins, Guidance (ICD-10-PCS; 2018-11-29)
PROC: 0JH63XZ Insertion of Tunneled Vascular Access Device into Chest Subcutaneous Tissue and Fascia, Percutaneous Approach (ICD-10-PCS; principal; 2018-11-29 16:00)
PROC: 5A1D70Z Performance of Urinary Filtration, Intermittent, Less than 6 Hours Per Day (ICD-10-PCS; 2018-11-30)
DX: A41.9 Sepsis, unspecified organism (principal); G93.41 Metabolic encephalopathy; J18.9 Pneumonia, unspecified organism; N18.6 End stage renal disease; I50.33 Acute on chronic diastolic (congestive) heart failure; J96.01 Acute respiratory failure with hypoxia; I13.2 Hypertensive heart and chronic kidney disease with heart failure and with stage 5 chronic kidney disease, or end stage renal disease; Z68.41 Body mass index [BMI] 40.0-44.9, adult; N17.9 Acute kidney failure, unspecified; N13.30 Unspecified hydronephrosis; I16.1 Hypertensive emergency; F31.9 Bipolar disorder, unspecified; E66.01 Morbid (severe) obesity due to excess calories; E87.70 Fluid overload, unspecified; M10.9 Gout, unspecified; G47.33 Obstructive sleep apnea (adult) (pediatric); E11.22 Type 2 diabetes mellitus with diabetic chronic kidney disease; R00.0 Tachycardia, unspecified; D72.829 Elevated white blood cell count, unspecified; F41.8 Other specified anxiety disorders; Z91.14 Patient's other noncompliance with medication regimen; D63.1 Anemia in chronic kidney disease; Z99.2 Dependence on renal dialysis
CPT/HCPCS: 36415; 36430; 36600; 71045-TC-FY; 71250-TC; 76775-TC; 80048; 80053; 81003; 81015; 82272; 82728; 82803; 82962; 83036; 83516; 83520; 83540; 83550; 83605; 83735; 83880; 84100; 84466; 84484; 85025; 85027; 85379; 85610; 85730; 86038; 86225; 86256; 86704; 86706; 86708; 86803; 86850; 86900; 86901; 86922; 87040; 87070; 87086; 87205; 87340; 87633; 87804; 87899; 87902; 93005; 93010; 93306-TC; 94640; 94660; 94760; 97116-GP; 97162-GP; 99285-25; G0480; J0131; J0885; J1644; P9038; P9058

== ENCOUNTER 2018-12-04 03:51 | Emergency (ER) | payer OTHER ==
[2018-12-04 04:05] VITALS: TEMP 97.8; BMI 42.5
--- NOTE | 2018-12-04 04:16 | PDOC ---
Attending Attestation - Resident Resident Name: Evelyne Herrera - ED Attending Attestation I have performed the following: I have examined & evaluated the patient, The case was reviewed & discussed with the resident, I agree w/resident's findings & plan - HPI HPI: 12/04/18 04:59 Pt states that he fell at the NH. - Physicial Exam PE: 12/04/18 04:59 Agree with resident exam. - Medical Decision Making 12/04/18 04:[address] head and he has a normal exam and he will be sent back to the [facility].
--- NOTE | 2018-12-04 04:33 | PDOC ---
History of Present Illness - General Chief Complaint: Injury Stated Complaint: FALL Time Seen by Provider: 12/04/18 04:12 - History of Present Illness Initial Comments: Diego Pena is a 58yo man with a PMH of CHF, ESRD on HD via permacath, HTN, DM , multiple psychiatric disorders (non compliant with medication) who presents from [facility] for a fall with head injury tonight. Per report, [facility] is requesting a CT head. Mr Pena states that he got up to walk to the bathroom when he fell. He states that he hit is posterior head and anterior legs. He has been able to ambulate, and he denies any LOC. Past History - Past Medical History Allergies/Adverse Reactions: Allergies Allergy/AdvReac Type Severity Reaction Status Date / Time No Known Allergies Allergy Verified 12/04/18 04:04 Home Medications: Ambulatory Orders Aripiprazole [Abilify] 10 mg PO DAILY 04/24/17 Atorvastatin Ca [Lipitor] 40 mg PO HS 04/24/17 Albuterol 0.083% Nebulizer Jaclyn [Ventolin 0.083% Nebulizer Soln -] 1 amp NEB Q4H PRN #1 amp 08/02/18 Carvedilol [Coreg -] 25 mg PO BID #60 tablet 08/02/18 Nifedipine ER [Procardia XL -] 60 mg PO DAILY #30 tab.er.24 08/02/18 hydrALAZINE HCL [Apresoline -] 100 mg PO TID #90 tablet 08/02/18 Sevelamer Carbonate [Renvela -] 800 mg PO TIDCM tab 11/30/18 Anemia: No Cardiac Disorders: Yes (chf) COPD: No CHF: Yes Diabetes: Yes (borderline) HTN: Yes Psychiatric Problems: Yes (bipolar) - Immunization History Immunization Up to Date: Yes - Suicide/Smoking/Psychosocial Hx Smoking History: Unknown if ever smoked Have you smoked in the past 12 months: No Number of Cigarettes Smoked Daily: 0 Information on smoking cessation initiated: No Hx Alcohol Use: No Drug/Substance Use Hx: No Substance Use Type: None Hx Substance Use Treatment: No Review of Systems - Review of Systems Comments:: 12/04/18 06:17 Unable to complete. Responds "yes" to every question. *Physical Exam - Vital Signs Last Vital Signs Temp Pulse Resp BP Pulse Ox 97.8 F 96 H 18 125/82 98 12/04/18 04:04 12/04/18 04:04 12/04/18 04:04 12/04/18 04:04 12/04/18 04:04 - Physical Exam Comments: General: Comfortable, no acute distress, morbidly obese HEENT: PERRL, EOMI, MMM, voice normal, normal neck ROM. Atraumatic, no visible injury. Cards: RRR, no murmur appreciated Pulm: Comfortable on room air. Distant breath sounds 2/2 habitus. Abd: Soft, nontender, nondistended Back: No deformity, bony tenderness, abrasion, bruising : No CVA tenderness Ext: Atraumatic. No LE edema. ROM intact. Strength 5/5 and equal bilaterally. No visible injury over BLE. Skin: Normal color, no rashes or lesions, no bruising, no abrasions Neuro: Alert, responds "yes" to most questions, CN grossly intact, normal speech , motor/sensory grossly intact and symmetric Moderate Sedation - Procedure Monitoring Vital Signs: Procedure Monitoring Vital Signs Temperature 97.8 F 12/04/18 04:04 Pulse Rate 96 H 12/04/18 04:04 Respiratory Rate 18 12/04/18 04:04 Blood Pressure 125/82 12/04/18 04:04 O2 Sat by Pulse Oximetry (%) 98 12/04/18 04:04 Medical Decision Making - Medical Decision Making 12/04/18 04:34 Diego Pena is a 58yo man with a PMH of CHF, ESRD on HD via permacath, HTN, DM , multiple psychiatric disorders (non compliant with medication) who presents from [facility] for a fall with head injury tonight. - Reports head injury w/o LOC. No visible trauma. Will obtain CT head per request of [facility] - No other apparent injuries - Observed walking in the ED - If CT negative, will d/c back to [facility]. 12/04/18 04:58 - CT completed. Reviewed in ED. No abnormalities noted - Will send back to [facility] to f/u with PMD. Discussed with Dr Meier. Evelyne Herrera PGY1 *DC/Admit/Observation/Transfer Diagnosis at time of Disposition: Fall Qualifiers: Encounter type: initial encounter Qualified Code(s): W19.XXXA - Unspecified fall, initial encounter - Discharge Dispostion Disposition: HOME Condition at time of disposition: Stable Decision to Admit order: No - Referrals Referrals: Myah Simon MD [Primary Care Provider] - - Patient Instructions Printed Discharge Instructions: How to Prevent Falls Additional Instructions: Discharge Instructions: - You were seen in the ER following a fall with a head injury. You had a CT scan to make sure there was no broken bone or bleeding in your head. - Continue to take all of your regular medications as prescribed - Follow up with your primary doctor within the next 1-2 days - Seek immediate medical care if you have additional episodes of fainting, chest pain, difficulty breathing, confusion, excessive sleepiness, one-sided neurological deficits, multiple episodes of vomiting, or any other medical emergency. - Post Discharge Activity
[2018-12-04 08:00] VITALS: BP 129/78; PULSE 87
== END 2018-12-04 08:00 | disposition home or self-care (01) ==
LOC: JER 03:51
DX: S09.8XXA Other specified injuries of head, initial encounter (principal); M79.604 Pain in right leg; M79.605 Pain in left leg; W18.39XA Other fall on same level, initial encounter; Y93.89 Activity, other specified; Y92.121 Bathroom in nursing home as the place of occurrence of the external cause; Y99.8 Other external cause status; I25.10 Atherosclerotic heart disease of native coronary artery without angina pectoris; I13.2 Hypertensive heart and chronic kidney disease with heart failure and with stage 5 chronic kidney disease, or end stage renal disease; N18.6 End stage renal disease; I50.89 Other heart failure; Z99.2 Dependence on renal dialysis; E11.9 Type 2 diabetes mellitus without complications; F31.9 Bipolar disorder, unspecified
CPT/HCPCS: 70450-TC; 99281-25

== ENCOUNTER 2018-12-12 23:25 | Emergency (ER) | payer OTHER ==
--- NOTE | 2018-12-12 23:54 | PDOC ---
History of Present Illness - General Chief Complaint: Pain, Acute Stated Complaint: LEG PAIN Time Seen by Provider: 12/12/18 23:54 History Source: Patient Exam Limitations: No Limitations - History of Present Illness Initial Comments: 12/12/18 23:55 Patient is a 58 year old man with a PMH of CHF, ESRD on HD via permacath () , HTN, DM, multiple psychiatric disorders (non compliant with medication) who presents from [facility] who presents with several days of bilateral ankle pain described as two bricks and rated 10/10. He states that he last walked two days ago while at physical therapy but the the pain has prevented him from walking since then. He denies any swelling of the ankles, rashes, muscle weakness, nausea, vomiting, chest pain, abdominal pain. He admits to some diarrhea and dizziness but denies any other complaints. He notes he normally takes percocet for his arthritis pain but has only been getting tylenol at [facility] Past History - Past Medical History Allergies/Adverse Reactions: Allergies Allergy/AdvReac Type Severity Reaction Status Date / Time No Known Allergies Allergy Verified 12/04/18 04:04 Home Medications: Ambulatory Orders Aripiprazole [Abilify] 10 mg PO DAILY 04/24/17 Atorvastatin Ca [Lipitor] 40 mg PO HS 04/24/17 Albuterol 0.083% Nebulizer Jaclyn [Ventolin 0.083% Nebulizer Soln -] 1 amp NEB Q4H PRN #1 amp 08/02/18 Carvedilol [Coreg -] 25 mg PO BID #60 tablet 08/02/18 Nifedipine ER [Procardia XL -] 60 mg PO DAILY #30 tab.er.24 08/02/18 hydrALAZINE HCL [Apresoline -] 100 mg PO TID #90 tablet 08/02/18 Sevelamer Carbonate [Renvela -] 800 mg PO TIDCM tab 11/30/18 Acetaminophen [Tylenol] 325 mg PO Q6H PRN MDD 199912/13/18 Anemia: No Cardiac Disorders: Yes (chf) COPD: No CHF: Yes Diabetes: Yes (borderline) HTN: Yes Psychiatric Problems: Yes (bipolar) - Immunization History Immunization Up to Date: Yes - Suicide/Smoking/Psychosocial Hx Smoking History: Unknown if ever smoked Have you smoked in the past 12 months: No Number of Cigarettes Smoked Daily: 0 Hx Alcohol Use: No Drug/Substance Use Hx: No Substance Use Type: None Hx Substance Use Treatment: No Review of Systems - Review of Systems Able to Perform ROS?: Yes Is the patient limited Dominican proficient: No Constitutional: No: Chills, Diaphoresis, Fever HEENTM: No: Blurred Vision, Tinnitus Respiratory: No: Cough, Orthopnea, Shortness of Breath Cardiac (ROS): No: Chest Pain, Lightheadedness, Palpitations, Syncope ABD/GI: No: Constipated, Diarrhea, Nausea, Vomiting : No: Burning, Dysuria, Hematuria Musculoskeletal: Yes: Joint Pain. No: Back Pain, Muscle Pain, Muscle Weakness Integumentary: No: Bruising, Dryness, Erythema, Flushing, Lesions, Lumps, Rash, Sweating Neurological: No: Headache, Numbness, Paresthesia, Tingling *Physical Exam - Physical Exam Comments: 12/13/18 00:20 GENERAL: Awake, alert, and fully oriented, in no acute distress HEAD: No signs of trauma, normocephalic, atraumatic EYES: EOMI, sclera anicteric, conjunctiva clear ENT: ropharynx clear without exudates. Moist mucosa NECK: Normal ROM, supple LUNGS: No distress, speaks full sentences, clear to auscultation bilaterally HEART: Regular rate and rhythm, normal S1 and S2, no murmurs, rubs or gallops, peripheral pulses normal and equal bilaterally. ABDOMEN: Soft, nontender, normoactive bowel sounds. No guarding, no rebound. No masses EXTREMITIES : Normal inspection, Normal range of motion, no edema. No clubbing or cyanosis. + tenderness on dorsiflexion, 5/5 strength NEUROLOGICAL: Cranial nerves II through XII grossly intact. Normal speech, no focal sensorimotor deficits SKIN: Warm, Dry, normal turgor, no rashes or lesions noted Medical Decision Making - Medical Decision Making 12/13/18 00:21 Patient is a 58 year old man with a PMH of CHF, ESRD on HD via permacath () , HTN, DM, multiple psychiatric disorders (non compliant with medication) who presents from [facility] who presents with several days of bilateral ankle pain described as two bricks and rated 10/10. He states that he last walked two days ago while at physical therapy but the the pain has prevented him from walking since then. ED Course: Patient only complaining of ankle pain and denies any other complaints consider arthritis less likely fracture or dislocation as patient with bilateral symptoms will dose pain medications for symptomatic relief. 12/13/18 03:00 ekg: normal sinus at 84 bpm, narrow QRS, ST and T wave segments and morphology normal. Patient stable for discharge. *DC/Admit/Observation/Transfer Diagnosis at time of Disposition: Chronic ankle pain, bilateral, Arthritis - Discharge Dispostion Disposition: HOME Condition at time of disposition: Fair Decision to Admit order: No - Referrals Referrals: Meghna Del Angel NP [Primary Care Provider] - - Patient Instructions Printed Discharge Instructions: DI for Ankle Pain, DI for Arthritis Additional Instructions: You were seen in the ED for complaints of bilateral ankle pain. In the ED you were evaluated and treated for pain. You showed improvement and there does not appear to be an acute need for immediate hospitalization. You are advised to follow up with your Primary Care Physician within 1 week. Return to the ED immediately if you experience worsening ankle pain, muscle weakness, inability to walk or bear weight, fevers or swelling. - Post Discharge Activity
[2018-12-13 00:06] VITALS: TEMP 98.2; BMI 42.4
--- NOTE | 2018-12-13 00:19 | PDOC ---
Attending Attestation - Resident Resident Name: Felicitas Cook - ED Attending Attestation I have performed the following: I have examined & evaluated the patient, The case was reviewed & discussed with the resident, I agree w/resident's findings & plan, Exceptions are as noted - HPI HPI: 12/13/18 01:09 58-year-old male brought in by ambulance from [facility] for ankle pain. He states he has a history of arthritis and has ankle pain. He did not fall today. 12/13/18 01:10 - Physicial Exam PE: 12/13/18 01:11 I will be 58-year-old male who is number bernard in no acute distress 9. Head is normocephalic, atraumatic. Neck supple Lungs clear to auscultation. CVS is regular rate and rhythm S1, S2 Abdomen protuberant Extremities no lower extremity pitting edema, full range of motion. Skin is warm and dry. There is a dialysis port in his left anterior chest. Neuro alert and oriented 3, motor strength 5 bilaterally. Psych appropriate - Medical Decision Making 12/13/18 01:18 December 07 patient had a permacath placed for his dialysis. Past medical history significant for end-stage renal disease, schizophrenia, hyperlipidemia, COPD, hypertension Physical exam does not show any wounds, erythema, swelling to either ankle. Patient is requesting Percocet for his ankle pain
[2018-12-13 03:11] VITALS: BP 126/85; PULSE 90
--- NOTE | 2018-12-13 22:05 | EKG ---
Test Reason : Blood Pressure : / mmHG Vent. Rate : 084 BPM Atrial Rate : 084 BPM P-R Int : 176 ms QRS Dur : 092 ms QT Int : 402 ms P-R-T Axes : 054 017 029 degrees QTc Int : 475 ms NORMAL SINUS RHYTHM POSSIBLE INFERIOR INFARCT , AGE UNDETERMINED ABNORMAL ECG WHEN COMPARED WITH ECG OF 16-NOV-2018 18:29, VENT. RATE HAS DECREASED BY 59 BPM NONSPECIFIC T WAVE ABNORMALITY, IMPROVED IN LATERAL LEADS Confirmed by MD SHEFALI, CYNDI ([id number]) on 12/13/2018 10:04:57 PM Referred By: Confirmed By:CYNDI MEEHAN MD
== END 2018-12-13 04:27 | disposition home or self-care (01) ==
LOC: JER 23:25
DX: M13.872 Other specified arthritis, left ankle and foot (principal); M13.871 Other specified arthritis, right ankle and foot; I13.2 Hypertensive heart and chronic kidney disease with heart failure and with stage 5 chronic kidney disease, or end stage renal disease; E13.22 Other specified diabetes mellitus with diabetic chronic kidney disease; N18.6 End stage renal disease; I50.9 Heart failure, unspecified; N17.8 Other acute kidney failure; Z99.2 Dependence on renal dialysis
CPT/HCPCS: 93005; 93010; 99282-25

== ENCOUNTER 2018-12-17 16:06 | Inpatient (IN) | payer OTHER ==
--- NOTE | 2018-12-17 16:43 | PDOC ---
History of Present Illness - General Stated Complaint: GENERALIZED PAIN Time Seen by Provider: 12/17/18 16:39 History Source: Patient Exam Limitations: No Limitations - History of Present Illness Initial Comments: 12/17/18 16:43 Patient is a 58 year old man with a PMH of CHF, ESRD on HD via permacath (T,R,Sa ), HTN, DM, multiple psychiatric disorders (non compliant with medication) who presents from [facility] with generalized weakness and body pain and did not want to go to dialysis today. Per [facility] nursing notes the patient got tramadol 50 at 10am. Patient reports that he cannot walk and has bilateral ankle pain that he thinks is due to his arthritis. He reports some mid chest pressure but denies shortness of breath, n/v/d/c, dysuria, hematuria. He has no other complaints at bedside. Past History - Past Medical History Allergies/Adverse Reactions: Allergies Allergy/AdvReac Type Severity Reaction Status Date / Time No Known Allergies Allergy Verified 12/17/18 16:46 Home Medications: Ambulatory Orders Aripiprazole [Abilify] 10 mg PO DAILY 04/24/17 Atorvastatin Ca [Lipitor] 40 mg PO HS 04/24/17 Albuterol 0.083% Nebulizer Jaclyn [Ventolin 0.083% Nebulizer Soln -] 1 amp NEB Q4H PRN #1 amp 08/02/18 Carvedilol [Coreg -] 25 mg PO BID #60 tablet 08/02/18 Nifedipine ER [Procardia XL -] 60 mg PO DAILY #30 tab.er.24 08/02/18 hydrALAZINE HCL [Apresoline -] 100 mg PO TID #90 tablet 08/02/18 Sevelamer Carbonate [Renvela -] 800 mg PO TIDCM tab 11/30/18 Acetaminophen [Tylenol] 325 mg PO Q6H PRN MDD 199912/13/18 Tramadol HCl 50 mg PO Q8H 12/17/18 Anemia: No Cardiac Disorders: Yes (chf) COPD: No CHF: Yes Diabetes: Yes (borderline) HTN: Yes Psychiatric Problems: Yes (bipolar) - Immunization History Td Vaccination: Yes TDAP Vaccination: Yes Immunization Up to Date: Yes - Suicide/Smoking/Psychosocial Hx Smoking History: Unknown if ever smoked Have you smoked in the past 12 months: No Number of Cigarettes Smoked Daily: 0 Hx Alcohol Use: No Drug/Substance Use Hx: No Substance Use Type: None Hx Substance Use Treatment: No Review of Systems - Review of Systems Able to Perform ROS?: Yes Is the patient limited Yakut proficient: No Constitutional: No: Chills, Diaphoresis, Fever HEENTM: No: Blurred Vision, Tinnitus Respiratory: Yes: SOB at Rest. No: Cough, Orthopnea, Shortness of Breath, SOB with Exertion Cardiac (ROS): Yes: Chest Tightness. No: Chest Pain, Lightheadedness, Palpitations, Syncope ABD/GI: No: Constipated, Diarrhea, Nausea, Vomiting : No: Burning, Dysuria, Hematuria, Incontinence Musculoskeletal: Yes: Gout, Joint Pain. No: Back Pain, Muscle Weakness, Neck Pain Integumentary: No: Lesions Neurological: No: Headache, Numbness, Paresthesia, Tingling Hematologic/Lymphatic: No: Anemia *Physical Exam - Physical Exam Comments: 12/17/18 17:01 GENERAL: Awake, alert, and fully oriented, in no acute distress HEAD: No signs of trauma, normocephalic, atraumatic EYES: EOMI, sclera anicteric, conjunctiva clear ENT: oropharynx clear without exudates. Moist mucosa NECK: Normal ROM, supple LUNGS: No distress, speaks full sentences, coarse breath sounds anteriorly, slight expiratory wheeze HEART: tachycardic rate and regular rhythm, normal S1 and S2, no murmurs, rubs or gallops, peripheral pulses normal and equal bilaterally. ABDOMEN: Soft, nontender, normoactive bowel sounds. No guarding, no rebound. No masses EXTREMITIES : Normal inspection, Normal range of motion, no edema. No clubbing or cyanosis. + R ankle warmth to touch NEUROLOGICAL: Cranial nerves II through XII grossly intact. Normal speech, no focal sensorimotor deficits SKIN: Warm, Dry, normal turgor, no rashes or lesions noted ED Treatment Course - LABORATORY CBC & Chemistry Diagram: 12/17/18 17:59 12/17/18 17:59 Medical Decision Making - Medical Decision Making 12/17/18 17:05 Patient is a 58 year old man with a PMH of CHF, ESRD on HD via permacath () , HTN, DM, multiple psychiatric disorders (non compliant with medication) who presents from [facility] with generalized weakness and body pain and did not want to go to dialysis today. Per [facility] nursing notes the patient got tramadol 50 at 10am. Patient reports that he cannot walk and has bilateral ankle pain that he thinks is due to his arthritis. He reports some mid chest pressure but denies shortness of breath, n/v/d/c, dysuria, hematuria. He has no other complaints at bedside. ED Course: Patient complaining of chest pain and ankle pain As patient had recent visit to ED for only ankle pain , now with chest pain previously patient did not have ankle warmth to touch will r/o osteomyelitis consider arthritis vs fx vs dislocation less likely cellulitis as no rash, erythema, skin breakage chst pain symptoms r/o acs vs arrythmia vs CHF exacerbation cbc, cmp, trop, ekg, bnp, cxr, xr of ankles bilaterally contact [facility] for collateral 12/17/18 17:30 [facility] does not ambulate at baseline an is going to PT to help him walk. Patient came to [facility] on November 30, 2018 12/17/18 19:42 labs with slight leukocytosis, elevated BNP as patient did not recieve dialysis today (R,T, Sa) Patient requiring supplemental O2 to sat > 95 CXR: midline airway, appropriate vascular markings, slight blunting of L costophrenic angle, no cardiomegaly, as read by this engineering writer and attending. Likely patient will need admission for dialysis and further management of sob and r/o acs 12/17/18 19:[address] Islas Nephrology who will dialyze patient tomorrow morning 12/17/18 19:59 Patient admitted to medicine for further managemnt *DC/Admit/Observation/Transfer Diagnosis at time of Disposition: ESRD needing dialysis, Chronic diastolic heart failure - Discharge Dispostion Condition at time of disposition: Fair Decision to Admit order: Yes - Referrals Referrals: Earnestine Shah MD [Primary Care Provider] - - Patient Instructions - Post Discharge Activity
[2018-12-17 16:46] VITALS: BMI 41.2
[2018-12-17] MEDS ORDERED: ACETAMINOPHEN 1000 MG/100 ML VIAL (NON FORMULARY) IVPB ONE (17:03)
--- NOTE | 2018-12-17 17:11 | PDOC ---
Attending Attestation - HPI HPI: 12/17/18 17:56 The patient is a 58 year old male, with a significant PMH HTN, DM, multiple psychiatric, CHF, and ERSD, who presents to the emergency department from [facility] today, complaining of generalized weakness and bilateral ankle pain that began a few days. The patient thinks the non radiating and constant pain may be associated with gout or arthritis. He state he endorses associated symptoms of dizziness, decrease appetite and chest pain. He reports not going to dialysis today. The patient denies any numbness or tingling. Denies any falls or head trauma, The patient denies shortness of breath, and headache. Denies fever, chills, nausea, vomit, diarrhea and constipation. Allergies: NKA Past surgical history: None reported Social history: None reported PCP: Earnestine Shah Documentation prepared by Jimmy Hood, acting as medical staff credentialing coordinator for Taina Huynh MD. - Physicial Exam PE: 12/17/18 17:56 GENERAL:Awake alert and oriented. The patient is in no acute distress. HEAD: Normal with no signs of trauma. ENT: Ears normal, nares patent, oropharynx clear without exudates. Moist mucous membranes. NECK: Normal range of motion, supple without lymphadenopathy, JVD, or masses. LUNGS: Breath sounds equal, clear to auscultation bilaterally. No wheezes, and no crackles. HEART:+Faint heart sounds,+tachycardiac. No murmur, rub or gallop. ABDOMEN:+Protuberant abdomen EXTREMITIES: +Bilateral foot and ankle pain. Limited ROM secondary to the pain. NEUROLOGICAL: Cranial nerves II through XII grossly intact. Normal speech. No focal neurological deficits. MUSCULOSKELETAL: Back non-tender to palpation, no CVA tenderness SKIN: Warm, Dry, normal turgor, no rashes or lesions noted. Documentation prepared by Jimmy Hood, acting as medical staff credentialing coordinator for Taina Huynh MD. <Jimmy Hood - Last Filed: 12/17/18 17:56> - Resident Resident Name: Felicitas Cook - ED Attending Attestation I have performed the following: I have examined & evaluated the patient, The case was reviewed & discussed with the resident, I agree w/resident's findings & plan, Exceptions are as noted - Medical Decision Making 58 yo M presenting with a complaint of bilateral foot/ankle pain Was seen here several days ago for the same He describes his pain as consistent with his prior gout flair (however, pt also tells me that he is being forced to do PT at [facility] but when attempted to confirm, the facility states that the patient has NOT been participating in PT at all) No fevers or erythema to suggest cellulitis Pt denies trauma Pt missed dialysis today because he did not feel like going Laboratory Tests 11/30/18 12/17/18 05:40 17:59 WBC 9.2 13.9 H Hgb 9.0 L 8.1 L Hct 27.3 L 26.5 L Plt Count 294 270 12/17/18 18:41 CMP, PT pending CXR pending Renal consult pending Pt will need to be admitted for intractable pain and HD Signed out to Dr Meier <Taina Huynh - Last Filed: 12/19/18 11:04>
[2018-12-17] MEDS ORDERED: SODIUM CHLORIDE 250 ML IV SCH (17:15)
[2018-12-17] MEDS ORDERED: ACETAMINOPHEN 325 MG TABLET (FP) PO ONE (17:16)
[2018-12-17] MEDS ORDERED: ACETAMINOPHEN 325 MG TABLET (FP) ONE (18:11)
[2018-12-17 18:22] LABS: BASO % 0.7 % (0-2.0); EOS % 0.1 % (0-4.5); HEMATOCRIT 26.5 % (35.4-49); HEMOGLOBIN 8.1 GM/dL (11.7-16.9); LYMPH % 4.6 % (8-40); MCH 23.9 pg (25.7-33.7); MCHC 30.7 g/dl (32.0-35.9); MEAN PLT VOLUME 8.1 fl (7.5-11.1); MONO % 18.4 % (3.8-10.2); NEUT % 76.2 % (42.8-82.8); PLATELET COUNT 270 K/MM3 (134-434); RDW 21.3 % (11.9-15.9); WHITE BLOOD COUNT 13.9 K/mm3 (4.0-10.0)
[2018-12-17 18:47] LABS: INR 1.34 (0.83-1.09); PROTHROMBIN TIME (PATIENT) 15.9 SEC (9.7-13.0)
[2018-12-17 18:49] LABS: ACTIVATED PTT 29.5 SECONDS (25.2-36.5)
[2018-12-17 19:02] LABS: ALBUMIN 2.6 g/dl (3.4-5.0); ALK PHOS 131 U/L (45-117); ANION GAP 12 MMOL/L (8-16); BILIRUBIN,TOTAL 0.2 mg/dL (0.2-1); BLOOD UREA NITROGEN 47 mg/dL (7-18); CALCIUM 8.7 mg/dL (8.5-10.1); CHLORIDE 95 mmol/L (98-107); CO2 25 mmol/L (21-32); GLUCOSE,RANDOM 92 mg/dL (74-106); N-TERMINAL BNP 1572.5 pg/ml (5-125); POTASSIUM 4.6 mmol/L (3.5-5.1); SGOT/AST 31 U/L (15-37); SGPT/ALT 18 U/L (13-61); SODIUM 133 mmol/L (136-145); TOT PROT 7.9 g/dl (6.4-8.2); URIC ACID 6.9 mg/dL (2.6-7.2)
[2018-12-17 19:03] LABS: CREATININE 11.9 mg/dL (0.55-1.3)
--- NOTE | 2018-12-17 20:49 | HP ---
Admitting History and Physical - Primary Care Physician PCP: Earnestine Shah - Admission History of Present Illness: This is a 58 y/o man from [facility] with a past medical history of CHF, ESRD on HD via permacath (,,), HTN, DM, multiple psychiatric disorders (non compliant with medication). Who presents to the ED with chest pressure, generalized weakness, body pain and did not want to go to dialysis today. Per [facility] nursing notes the patient got tramadol 50mg at 10am. Patient reports having midsternal chest pressure x 2 weeks worse today. Patient reports having bilateral ankle pain which he believes is "Gouty Arthritis" and he cannot ambulate due to the pain. Patient denies fever, chills, cough, SOB, dizziness, palpitations, AP, N/V/D, constipation. History Source: Patient, Medical Record, Transfer Record Limitations to Obtaining History: Clinical Condition, Poor Historian - Past Medical History Cardiovascular: Yes: CHF, HTN, Hyperlipdemia Pulmonary: Yes: COPD Renal/: Yes: Renal Failure, Renal Inusuff, Hemodialysis Psych: Yes: Bipolar, Schizophrenia Rheumatology: Yes: Gout - Smoking History Smoking history: Unknown if ever smoked Have you smoked in the past 12 months: No Aproximately how many cigarettes per day: 0 - Alcohol/Substance Use Hx Alcohol Use: No - Social History Usual Living Arrangement: Yes: Long-Term ADL: Support Services Occupation: disability History of Recent Travel: No Home Medications - Allergies Allergies/Adverse Reactions: Allergies Allergy/AdvReac Type Severity Reaction Status Date / Time No Known Allergies Allergy Verified 12/17/18 16:46 - Home Medications Home Medications: Ambulatory Orders Aripiprazole [Abilify] 10 mg PO DAILY 04/24/17 Atorvastatin Ca [Lipitor] 40 mg PO HS 04/24/17 Albuterol 0.083% Nebulizer Jaclyn [Ventolin 0.083% Nebulizer Soln -] 1 amp NEB Q4H PRN #1 amp 08/02/18 Carvedilol [Coreg -] 25 mg PO BID #60 tablet 08/02/18 Nifedipine ER [Procardia XL -] 60 mg PO DAILY #30 tab.er.24 08/02/18 hydrALAZINE HCL [Apresoline -] 100 mg PO TID #90 tablet 08/02/18 Sevelamer Carbonate [Renvela -] 800 mg PO TIDCM tab 11/30/18 Acetaminophen [Tylenol] 325 mg PO Q6H PRN MDD 2000 12/13/18 Tramadol HCl 50 mg PO Q8H 12/17/18 Family Disease History - Family Disease History Family Disease History: Heart Disease: Father (HTN) Review of Systems - Review of Systems Constitutional: reports: No Symptoms Eyes: reports: No Symptoms HENT: reports: No Symptoms Neck: reports: No Symptoms Cardiovascular: reports: Chest Pain, Edema Respiratory: reports: No Symptoms Gastrointestinal: reports: No Symptoms Breasts: reports: No Symptoms Reported Musculoskeletal: reports: Extremity Pain, Joint Swelling Neurological: reports: No Symptoms Endocrine: reports: No Symptoms Hematology/Lymphatic: reports: No Symptoms Psychiatric: reports: No Symptoms Pain Intensity: 6 Physical Examination Vital Signs: Vital Signs Temperature 97.8 F 12/17/18 16:10 Pulse Rate 114 H 12/17/18 16:10 Respiratory Rate 18 12/17/18 16:10 Blood Pressure 130/79 12/17/18 16:10 O2 Sat by Pulse Oximetry (%) 100 12/17/18 16:10 Constitutional: Yes: Well Nourished, No Distress, Calm Eyes: Yes: WNL, Conjunctiva Clear, EOM Intact HENT: Yes: WNL, Atraumatic, Normocephalic Neck: Yes: WNL, Supple, Trachea Midline Cardiovascular: Yes: WNL, Regular Rate and Rhythm, S1, S2 Respiratory: Yes: Regular, CTA Bilaterally Gastrointestinal: Yes: Normal Bowel Sounds, Soft, Abdomen, Obese Breast(s): Yes: WNL Musculoskeletal: Yes: Joint Swelling (b/l ankle) Extremities: Yes: Erythema Edema: Yes Edema: LLE: 2+ (foot), RLE: 2+ (foot) Peripheral Pulses WNL: Yes Neurological: Yes: WNL, Alert, Oriented, Cran Nerves II-XII Intact ...Motor Strength: WNL Psychiatric: Yes: WNL, Alert, Oriented Labs: CBC, BMP 12/17/18 17:59 12/17/18 17:59 Laboratory Results - last 24 hr 12/17/18 12/17/18 12/17/18 17:32 17:59 17:59 WBC 13.9 H RBC 3.40 L Hgb 8.1 L Hct 26.5 L MCV 78.0 L MCH 23.9 L MCHC 30.7 L RDW 21.3 H Plt Count 270 MPV 8.1 Absolute Neuts (auto) 10.6 H Neutrophils % 76.2 Lymphocytes % 4.6 L D Monocytes % 18.4 H D Eosinophils % 0.1 D Basophils % 0.7 Nucleated RBC % 0 Hypochromia 1+ Platelet Estimate Adequate Platelet Comment Slide scanned. Polychromasia 1+ Poikilocytosis 1+ Anisocytosis 2+ Microcytosis 1+ Macrocytosis 1+ Ovalocytes 1+ PT with INR INR PTT (Actin FS) Sodium 133 L Potassium 4.6 Chloride 95 L Carbon Dioxide 25 Anion Gap 12 BUN 47 H Creatinine 11.9 H* Creat Clearance w eGFR 4.44 Random Glucose 92 Uric Acid 6.9 6.9 Calcium 8.7 Total Bilirubin 0.2 AST 31 ALT 18 Alkaline Phosphatase 131 H Troponin I < 0.02 B-Natriuretic Peptide 1572.5 H Total Protein 7.9 Albumin 2.6 L 12/17/18 12/18/18 17:59 01:31 WBC RBC Hgb Hct MCV MCH MCHC RDW Plt Count MPV Absolute Neuts (auto) Neutrophils % Lymphocytes % Monocytes % Eosinophils % Basophils % Nucleated RBC % Hypochromia Platelet Estimate Platelet Comment Polychromasia Poikilocytosis Anisocytosis Microcytosis Macrocytosis Ovalocytes PT with INR 15.90 H INR 1.34 H PTT (Actin FS) 29.5 Sodium Potassium Chloride Carbon Dioxide Anion Gap BUN Creatinine Creat Clearance w eGFR Random Glucose Uric Acid Calcium Total Bilirubin AST ALT Alkaline Phosphatase Troponin I < 0.02 B-Natriuretic Peptide Total Protein Albumin Current Medications Generic Name Dose Route Start Last Admin Trade Name Freq PRN Reason Stop Dose Admin Aripiprazole 10 mg 12/18/18 10:00 Abilify PO DAILY RONALD Atorvastatin Calcium 40 mg 12/17/18 22:00 12/18/18 00:44 Lipitor - PO 40 mg HS RONALD Administration Epoetin Shawn 5,000 unit 12/18/18 08:34 Procrit - SQ 12/18/18 08:35 ONCE ONE Heparin Sodium (Porcine) 1,000 unit 12/18/18 08:34 Heparin - IVPUSH 12/18/18 08:35 ONCE ONE Sodium Chloride 250 mls @ 3,000 mls/hr 12/18/18 08:34 Normal Saline - IV 12/19/18 08:34 PRN PRN Hypotension during Dialysis Sevelamer Carbonate 800 mg 12/18/18 08:00 Renvela - PO TIDCM [facility] Imaging - Results Chest X-ray: Image Reviewed X-ray: Image Reviewed EKG: Image Reviewed Problem List - Problems (1) Chest pain Code(s): R07.9 - CHEST PAIN, UNSPECIFIED (2) ESRD needing dialysis Code(s): N18.6 - END STAGE RENAL DISEASE; Z99.2 - DEPENDENCE ON RENAL DIALYSIS (3) Inability to ambulate due to multiple joints Code(s): R26.2 - DIFFICULTY IN WALKING, NOT ELSEWHERE CLASSIFIED (4) Chronic diastolic heart failure Code(s): I50.32 - CHRONIC DIASTOLIC (CONGESTIVE) HEART FAILURE (5) Hypertension Code(s): I10 - ESSENTIAL (PRIMARY) HYPERTENSION (6) Type 2 diabetes mellitus Code(s): E11.9 - TYPE 2 DIABETES MELLITUS WITHOUT COMPLICATIONS (7) Bipolar 1 disorder Code(s): F31.9 - BIPOLAR DISORDER, UNSPECIFIED (8) MOLLY (obstructive sleep apnea) Code(s): G47.33 - OBSTRUCTIVE SLEEP APNEA (ADULT) (PEDIATRIC) (9) Morbid (severe) obesity due to excess calories Code(s): E66.01 - MORBID (SEVERE) OBESITY DUE TO EXCESS CALORIES Assessment/Plan This is a 58 y/o man ESRD (, ). Admitted to Telemetry for Chest Pain r/o ACS, ESRD needing Dialysis, B/L Ankle/Foot Pain for further evaluation of their emergent condition. Plan: 1. Cardiovascular: Chest Pain r/o ACS Diastolic CHF HTN HLD Admit to Telemetry Cardiac monitoring HEART Score 4 Serial Enzymes neg x1, will trend Appreciate Cardiology consult Monitor CBC, BMP Echo 10/2018- showed EF-nl, mild concentric LVH, RV normal size function, trace TR Patient refused Stress test 06/2018 Continue Lipitor Will hold BP meds secondary to hypotension 2. Nephrology: s/p Permacath HD- ,, Appreciate Nephrology consult for HD Management Cr 11.1, slightly above baseline Patient refused dialysis today K- nl EKG reviewed Monitor CBC, BMP 3. Psych: Schizophrenia Bipolar Disorder stable Continue home meds FEN Fluid Restriction 1500ml Replete lytes prn Renal, Low Na Diet DVT ppx OOB SCDs Code Status: Full Code Dispo: Requires Inpatient Care Visit type - Emergency Visit Emergency Visit: Yes ED Registration Date: 12/17/18 Care time: The patient presented to the Emergency Department on the above date and was hospitalized for further evaluation of their emergent condition. - New Patient This patient is new to me today: Yes Date on this admission: 12/17/18 - Critical Care Critical Care patient: No
[2018-12-17 21:12] LABS: ANISOCYTOSIS 2+
[2018-12-17 21:14] LABS: MACROCYTOSIS 1+; OVALOCYTE 1+; PLATELET ESTIMATE ADEQUATE
[2018-12-18] MEDS ORDERED: ATORVASTATIN CA 10 MG TABLET (FP) ONE (00:31)
[2018-12-18] MEDS: ATORVASTATIN CA 40 MG TABLET (FP) PO SCH ×2 (00:44→21:15)
[2018-12-18 08:20] LABS: BASO % 0.3 % (0-2.0); EOS % 0.4 % (0-4.5); HEMATOCRIT 26.1 % (35.4-49); HEMOGLOBIN 8.2 GM/dL (11.7-16.9); LYMPH % 5.3 % (8-40); MCH 24.2 pg (25.7-33.7); MCHC 31.4 g/dl (32.0-35.9); MEAN CELL VOLUME 77.1 fl (80-96); MEAN PLT VOLUME 8.1 fl (7.5-11.1); MONO % 17.6 % (3.8-10.2); NEUT % 76.4 % (42.8-82.8); PLATELET COUNT 250 K/MM3 (134-434); RBC 3.39 M/mm3 (4.00-5.60); RDW 20.8 % (11.9-15.9); WHITE BLOOD COUNT 11.9 K/mm3 (4.0-10.0)
--- NOTE | 2018-12-18 08:30 | CON.NEP ---
Consult Consult Specialty:: nephrology - History of Present Illness Chief Complaint: ankle swelling History of Present Illness: The patient is a 58 year old male, with a significant PMH HTN, DM, multiple psychiatric, CHF, and ERSD, who presents to the emergency department from [facility], complaining of generalized weakness and bilateral ankle pain that began a few days. The patient thinks the non radiating and constant pain may be associated with gout or arthritis. He states he endorses associated symptoms of dizziness, decrease appetite and chest pain. He reports not going to dialysis yesterday. The patient denies any numbness or tingling. Denies any falls or head trauma, The patient denies shortness of breath, and headache. Denies fever, chills, nausea, vomit, diarrhea and constipation. I awakened him while in the emergency department and he was upset. But said he will dialyze tomorrow here. - History Source History Provided By: Patient, Medical Record Limitations to Obtaining History: No Limitations - Past Medical History Cardio/Vascular: Yes: CHF, HTN Renal/: Yes: Renal Inusuff Rheumatology: Yes: Gout Additional Medical History: obesity, non compliance - Alcohol/Substance Use Hx Alcohol Use: No - Smoking History Smoking history: Unknown if ever smoked Have you smoked in the past 12 months: No Aproximately how many cigarettes per day: 0 - Social History Usual Living Arrangement: With Significant Other ADL: Support Services Occupation: disability History of Recent Travel: No Home Medications - Allergies Allergies/Adverse Reactions: Allergies Allergy/AdvReac Type Severity Reaction Status Date / Time No Known Allergies Allergy Verified 12/17/18 16:46 - Home Medications Home Medications: Ambulatory Orders Aripiprazole [Abilify] 10 mg PO DAILY 04/24/17 Atorvastatin Ca [Lipitor] 40 mg PO HS 04/24/17 Albuterol 0.083% Nebulizer Jaclyn [Ventolin 0.083% Nebulizer Soln -] 1 amp NEB Q4H PRN #1 amp 08/02/18 Carvedilol [Coreg -] 25 mg PO BID #60 tablet 08/02/18 Nifedipine ER [Procardia XL -] 60 mg PO DAILY #30 tab.er.24 08/02/18 hydrALAZINE HCL [Apresoline -] 100 mg PO TID #90 tablet 08/02/18 Sevelamer Carbonate [Renvela -] 800 mg PO TIDCM tab 11/30/18 Acetaminophen [Tylenol] 325 mg PO Q6H PRN MDD 2000 12/13/18 Tramadol HCl 50 mg PO Q8H 12/17/18 Family Disease History - Family Disease History Family Disease History: Heart Disease: Father (HTN) Review of Systems - Review of Systems Constitutional: reports: Weakness Eyes: reports: No Symptoms HENT: reports: No Symptoms Neck: reports: No Symptoms Cardiovascular: reports: Edema Respiratory: reports: No Symptoms Gastrointestinal: reports: No Symptoms Genitourinary: reports: No Symptoms Breasts: reports: No Symptoms Reported Musculoskeletal: reports: Joint Swelling Integumentary: reports: No Symptoms Neurological: reports: No Symptoms Endocrine: reports: No Symptoms Hematology/Lymphatic: reports: No Symptoms Psychiatric: reports: No Symptoms Nephrology Consult - Height Height: 5 ft 9 in - Weight Weight: 279 lb - BMI Body Mass Index (BMI): 41.2 - Lab Results CBC,BMP: CBC, BMP 12/18/18 07:00 Anion Gap: Anion Gap Anion Gap 12 MMOL/L (8-16) 12/17/18 17:59 - Imaging Chest X-ray: Report Reviewed (JESUS) - Physical Examination Vital Signs: Vital Signs Temperature 98.1 F 12/17/18 21:18 Pulse Rate 78 12/17/18 21:18 Respiratory Rate 18 12/18/18 05:51 Blood Pressure 116/78 12/17/18 21:18 O2 Sat by Pulse Oximetry (%) 95 12/18/18 05:51 Constitutional: Yes: Well Nourished, Obese Eyes: Yes: Conjunctiva Clear HENT: Yes: Atraumatic, Normocephalic Neck: Yes: Supple, Trachea Midline Cardiovascular: Yes: Regular Rate and Rhythm Respiratory: Yes: Regular, CTA Bilaterally Gastrointestinal: Yes: Normal Bowel Sounds, Abdomen, Obese Renal/: No: Bladder Distention Access for Hemodialysis: Permacath Musculoskeletal: Yes: Other (slight swelling of ankles- not tender) Extremities: Yes: WNL Edema: Yes Neurological: Yes: Alert, Oriented Psychiatric: Yes: Alert, Oriented Assessment/Plan IMPRESSION esrd psych disorder nonadherence to hd regimen anemia PLAN psych eval will dialyze tomorrow. He seems comfortable today will give epogen during hd MV
[2018-12-18] MEDS ORDERED: SODIUM CHLORIDE 250 ML IV PRN (08:34)
[2018-12-18] MEDS ORDERED: EPOETIN ALFA 3,000 UNIT/1 ML ML SQ ONE (08:34)
[2018-12-18 08:40] LABS: ANION GAP 13 MMOL/L (8-16); BLOOD UREA NITROGEN 56 mg/dL (7-18); CHLORIDE 96 mmol/L (98-107); CO2 25 mmol/L (21-32); GLUCOSE,RANDOM 95 mg/dL (74-106); POTASSIUM 4.5 mmol/L (3.5-5.1); SODIUM 133 mmol/L (136-145)
--- NOTE | 2018-12-18 08:43 | PN ---
Progress Note (short form) - Note Progress Note: no chest pain currently pt wanted to be sent to hospital as per [place] c/o b/l knees pain Vital Signs - 24 hr 12/17/18 12/17/18 12/18/18 21:18 21:43 05:51 Temperature 98.1 F Pulse Rate [ 78 Apical] Respiratory 18 18 Rate Blood Pressure 116/78 [Right Arm] O2 Sat by Pulse 95 95 95 Oximetry (%) 12/18/18 12/18/18 07:00 19:00 Temperature Pulse Rate [ Apical] Respiratory 18 18 Rate Blood Pressure [Right Arm] O2 Sat by Pulse 95 96 Oximetry (%) Current Medications Generic Name Dose Route Start Last Admin Trade Name Freq PRN Reason Stop Dose Admin Acetaminophen 325 mg 12/18/18 09:23 Tylenol - PO Q6H PRN PAIN OR FEVER Albuterol Sulfate 1 amp 12/18/18 09:23 Ventolin 0.083% Nebulizer Soln - NEB Q4H PRN SHORT OF BREATH/WHEEZING Aripiprazole 10 mg 12/18/18 10:00 12/18/18 10:17 Abilify PO 10 mg DAILY RONALD Administration Atorvastatin Calcium 40 mg 12/17/18 22:00 12/18/18 00:44 Lipitor - PO 40 mg HS RONALD Administration Carvedilol 25 mg 12/18/18 10:00 12/18/18 10:17 Coreg - PO 25 mg BID RONALD Administration Epoetin Shawn 3,000 unit/ 5,000 unit 12/18/18 09:15 Epoetin Shawn 2,000 unit SQ 12/18/18 09:16 ONCE ONE Heparin Sodium (Porcine) 1,000 unit 12/18/18 09:15 Heparin - IVPUSH 12/18/18 09:16 ONCE ONE Hydralazine HCl 100 mg 12/18/18 14:00 12/18/18 13:47 Apresoline - PO 100 mg TID RONALD Administration Sodium Chloride 250 mls @ 3,000 mls/hr 12/18/18 09:10 Normal Saline - IV PRN PRN Hypotension during Dialysis Nifedipine 60 mg 12/18/18 10:00 12/18/18 10:17 Procardia Xl - PO 60 mg DAILY RONALD Administration Sevelamer Carbonate 800 mg 12/18/18 08:00 12/18/18 17:44 Renvela - PO 800 mg TIDCM RONALD Administration Tramadol HCl 50 mg 12/18/18 09:22 12/18/18 10:24 Ultram - PO 50 mg Q4H PRN Administration PAIN LEVEL 6-10 Laboratory Results - last 24 hr 12/17/18 12/17/18 12/18/18 17:32 17:59 01:31 WBC RBC Hgb Hct MCV MCH MCHC RDW Plt Count MPV Absolute Neuts (auto) Neutrophils % Lymphocytes % Monocytes % Eosinophils % Basophils % Nucleated RBC % Hypochromia 1+ Platelet Estimate Adequate Platelet Comment Slide scanned. Polychromasia 1+ Poikilocytosis 1+ Anisocytosis 2+ Microcytosis 1+ Macrocytosis 1+ Ovalocytes 1+ Sodium Potassium Chloride Carbon Dioxide Anion Gap BUN Creatinine Creat Clearance w eGFR Random Glucose Uric Acid 6.9 Calcium Troponin I < 0.02 12/18/18 12/18/18 07:00 07:00 WBC 11.9 H RBC 3.39 L Hgb 8.2 L Hct 26.1 L MCV 77.1 L MCH 24.2 L MCHC 31.4 L RDW 20.8 H Plt Count 250 MPV 8.1 Absolute Neuts (auto) 9.1 H Neutrophils % 76.4 Lymphocytes % 5.3 L Monocytes % 17.6 H Eosinophils % 0.4 D Basophils % 0.3 Nucleated RBC % 0 Hypochromia Platelet Estimate Platelet Comment Polychromasia Poikilocytosis Anisocytosis Microcytosis Macrocytosis Ovalocytes Sodium 133 L Potassium 4.5 Chloride 96 L Carbon Dioxide 25 Anion Gap 13 BUN 56 H Creatinine 13.2 H* Creat Clearance w eGFR 3.94 Random Glucose 95 Uric Acid Calcium 9.0 Troponin I < 0.02 S1 S2 RRR Lungs decreased Abd-soft, NT no edema No knee effusions, not tender, no restriction of movements PLAN Cardiology and Renal eval Tramadol prn for pain pt has MRI knee scheduled from [place] check cardiac enzymes continue with meds HD per renal Problem List - Problems (1) Chest pain Code(s): R07.9 - CHEST PAIN, UNSPECIFIED (2) ESRD needing dialysis Code(s): N18.6 - END STAGE RENAL DISEASE; Z99.2 - DEPENDENCE ON RENAL DIALYSIS (3) Chronic diastolic heart failure Code(s): I50.32 - CHRONIC DIASTOLIC (CONGESTIVE) HEART FAILURE (4) Arthritis Code(s): M19.90 - UNSPECIFIED OSTEOARTHRITIS, UNSPECIFIED SITE (5) Bipolar 1 disorder Code(s): F31.9 - BIPOLAR DISORDER, UNSPECIFIED
[2018-12-18 08:55] LABS: CREATININE 13.2 mg/dL (0.55-1.3)
[2018-12-18] MEDS: SEVELAMER CARBONATE 800 MG TAB (FP) PO SCH ×3 (09:14→17:44)
[2018-12-18] MEDS ORDERED: EPOETIN ALFA 3,000 UNIT, EPOETIN ALFA 2,000 UNIT IVPUSH ONE (09:15)
[2018-12-18] MEDS ORDERED: EPOETIN ALFA 3,000 UNIT, EPOETIN ALFA 2,000 UNIT SQ ONE ×2 (09:15)
[2018-12-18] MEDS ORDERED: HEPARIN NA (PORCINE) 5,000 UNITS/ML 1ML VIAL IVPUSH ONE (09:15)
[2018-12-18] MEDS ORDERED: ACETAMINOPHEN 325 MG TABLET (FP) PO PRN (09:23)
[2018-12-18] MEDS ORDERED: ALBUTEROL SO4 0.083% IH SOL 2.5 MG/3 ML VIAL.NEB. NEB PRN (09:23)
[2018-12-18] MEDS ORDERED: NIFEdipine E.R. 30 MG TABLET (FP) ONE (10:09)
[2018-12-18] MEDS ORDERED: CARVEDILOL 12.5 MG TABLET (FP) ONE (10:09)
[2018-12-18] MEDS: NIFEdipine E.R 60 MG TABLET (UD) PO SCH (10:17)
[2018-12-18] MEDS: ARIPiprazole 10 MG TABLET PO SCH (10:17)
[2018-12-18] MEDS: CARVEDILOL 25 MG TABLET (FP) PO SCH ×2 (10:17→21:15)
[2018-12-18] MEDS ORDERED: traMADol HCL 50 MG TABLET ONE (10:20)
[2018-12-18] MEDS: traMADol HCL 50 MG TABLET PO PRN (10:24)
--- NOTE | 2018-12-18 11:27 | CON.CARD ---
Consult Consult Specialty:: Cardiology Referred by:: Pablo Reason for Consultation:: CP - History of Present Illness Chief Complaint: generalized pain, chest pain History of Present Illness: 58 y/o M with PMHx of diastolic CHF, NIDDM, HTN, HLD, ESRD-HD, noncompliant with medications, bipolar disorder multiple admissions for bp control, fluid overload admitted with generalized pain, joint pain and continuous chest pain, sob. He recently refused stress testing. Echo 11/17/18 showed normal EF. ECG without acute changes. - History Source History Provided By: Patient, Medical Record - Past Medical History Cardio/Vascular: Yes: CHF, HTN, Hyperlipdemia Pulmonary: Yes: COPD Renal/: Yes: Renal Failure, Renal Inusuff, Hemodialysis Psych: Yes: Bipolar, Schizophrenia Rheumatology: Yes: Gout Additional Medical History: obesity, non compliance - Alcohol/Substance Use Hx Alcohol Use: No - Smoking History Smoking history: Unknown if ever smoked Have you smoked in the past 12 months: No Aproximately how many cigarettes per day: 0 - Social History Usual Living Arrangement: With Significant Other ADL: Support Services Occupation: disability History of Recent Travel: No Home Medications - Allergies Allergies/Adverse Reactions: Allergies Allergy/AdvReac Type Severity Reaction Status Date / Time No Known Allergies Allergy Verified 12/17/18 16:46 - Home Medications Home Medications: Ambulatory Orders Aripiprazole [Abilify] 10 mg PO DAILY 04/24/17 Atorvastatin Ca [Lipitor] 40 mg PO HS 04/24/17 Albuterol 0.083% Nebulizer Jaclyn [Ventolin 0.083% Nebulizer Soln -] 1 amp NEB Q4H PRN #1 amp 08/02/18 Carvedilol [Coreg -] 25 mg PO BID #60 tablet 08/02/18 Nifedipine ER [Procardia XL -] 60 mg PO DAILY #30 tab.er.24 08/02/18 hydrALAZINE HCL [Apresoline -] 100 mg PO TID #90 tablet 08/02/18 Sevelamer Carbonate [Renvela -] 800 mg PO TIDCM tab 11/30/18 Acetaminophen [Tylenol] 325 mg PO Q6H PRN MDD 199912/13/18 Tramadol HCl 50 mg PO Q8H 12/17/18 Family Disease History - Family Disease History Family Disease History: Heart Disease: Father (HTN) Vital Signs: Vital Signs Temperature 98.1 F 12/17/18 21:18 Pulse Rate 78 12/17/18 21:18 Respiratory Rate 18 12/18/18 07:00 Blood Pressure 116/78 12/17/18 21:18 O2 Sat by Pulse Oximetry (%) 95 12/18/18 07:00 Constitutional: Yes: No Distress, Calm Eyes: Yes: Conjunctiva Clear, EOM Intact HENT: Yes: Atraumatic, Normocephalic Neck: Yes: Supple, Trachea Midline Respiratory: Yes: CTA Bilaterally Gastrointestinal: Yes: Soft Cardiovascular: Yes: Regular Rate and Rhythm JVD: Yes Carotid Bruit: No PMI: Non-Displaced Heart Sounds: Yes: S2 Extremities: Yes: WNL Edema: No - Other Data Labs, Other Data: CBC, BMP 12/18/18 07:00 12/18/18 07:00 INR, PTT INR 1.34 (0.83-1.09) H 12/17/18 17:59 Troponin, BNP 12/17/18 12/18/18 12/18/18 17:59 01:31 07:00 Troponin I < 0.02 < 0.02 < 0.02 B-Natriuretic Peptide 1572.5 H Troponin, BNP 12/17/18 12/18/18 12/18/18 17:59 01:31 07:00 Troponin I < 0.02 < 0.02 < 0.02 B-Natriuretic Peptide 1572.5 H Imaging - Results Chest X-ray: Report Reviewed EKG: Report Reviewed Assessment/Plan 58 y/o M with PMHx of diastolic CHF, NIDDM, HTN, HLD, CKD 5 bipolar disorder recent admission for bp control, CKD5 admitted with sob, found with fluid overload and possible pneumonia. Troponin is minimally elevated. No chest pain , orthopnea or PND. Echo 06/07 showed normal EF. ECG without acute changes. -No evidence of ACS. -No ECG changes. -Elevated pro bnp due to renal disease. -No plans for ischemia workup -Monitor on telemetry one day. -HD for fluid removal.
[2018-12-18] MEDS: hydrALAZINE HCL 50 MG TABLET (FP) PO SCH ×2 (13:47→21:14)
[2018-12-19] MEDS: hydrALAZINE HCL 50 MG TABLET (FP) PO SCH ×3 (05:03→21:32)
--- NOTE | 2018-12-19 10:18 | EKG ---
Test Reason : Blood Pressure : / mmHG Vent. Rate : 114 BPM Atrial Rate : 114 BPM P-R Int : 156 ms QRS Dur : 084 ms QT Int : 336 ms P-R-T Axes : 055 052 053 degrees QTc Int : 463 ms SINUS TACHYCARDIA OTHERWISE NORMAL ECG WHEN COMPARED WITH ECG OF 13-DEC-2018 02:32, VENT. RATE HAS INCREASED Confirmed by KILLIAN MUNOZ MD ([id number]) on 12/19/2018 10:18:03 AM Referred By: Confirmed By:KILLIAN MUNOZ MD
[2018-12-19] MEDS: SEVELAMER CARBONATE 800 MG TAB (FP) PO SCH ×3 (11:45→16:34)
--- NOTE | 2018-12-19 11:57 | PN ---
Progress Note, Physician History of Present Illness: Pt seen and examined at bedside. He is awake and alert. He denies chest pain or shortness of breath. He agrees for HD today. - Current Medication List Current Medications: Active Medications Acetaminophen (Tylenol -) 325 mg PO Q6H PRN PRN Reason: PAIN OR FEVER Last Admin: 12/18/18 21:15 Dose: 325 mg Albuterol Sulfate (Ventolin 0.083% Nebulizer Soln -) 1 amp NEB Q4H PRN PRN Reason: SHORT OF BREATH/WHEEZING Aripiprazole (Abilify) 10 mg PO DAILY [facility] Last Admin: 12/18/18 10:17 Dose: 10 mg Atorvastatin Calcium (Lipitor -) 40 mg PO HS [facility] Last Admin: 12/18/18 21:15 Dose: 40 mg Carvedilol (Coreg -) 25 mg PO BID [facility] Last Admin: 12/18/18 21:15 Dose: 25 mg Epoetin Shawn 3,000 unit/ (Epoetin Shawn 2,000 unit) 5,000 unit SQ ONCE ONE Stop: 12/18/18 09:16 Heparin Sodium (Porcine) (Heparin -) 1,000 unit IVPUSH ONCE ONE Stop: 12/18/18 09:16 Hydralazine HCl (Apresoline -) 100 mg PO TID [facility] Last Admin: 12/19/18 05:03 Dose: 100 mg Sodium Chloride (Normal Saline -) 250 mls @ 3,000 mls/hr IV PRN PRN PRN Reason: Hypotension during Dialysis Nifedipine (Procardia Xl -) 60 mg PO DAILY [facility] Last Admin: 12/18/18 10:17 Dose: 60 mg Sevelamer Carbonate (Renvela -) 800 mg PO TIDCM [facility] Last Admin: 12/19/18 11:45 Dose: Not Given Tramadol HCl (Ultram -) 50 mg PO Q4H PRN PRN Reason: PAIN LEVEL 6-10 Last Admin: 12/18/18 10:24 Dose: 50 mg - Objective Vital Signs: Vital Signs Temperature 99.7 F H 12/19/18 10:07 Pulse Rate 108 H 12/19/18 10:07 Respiratory Rate 22 H 12/19/18 10:07 Blood Pressure 124/65 12/19/18 10:07 O2 Sat by Pulse Oximetry (%) 97 04/01/19 08:01 Constitutional: Yes: Calm Eyes: Yes: Conjunctiva Clear HENT: Yes: Atraumatic Neck: Yes: Supple Cardiovascular: Yes: S1, S2 Respiratory: Yes: CTA Bilaterally Gastrointestinal: Yes: Soft, Abdomen, Obese Genitourinary: Yes: WNL Edema: Yes Edema: LLE: Trace, RLE: Trace Neurological: Yes: Oriented Psychiatric: Yes: Oriented Labs: CBC, BMP 12/18/18 07:00 12/18/18 07:00 INR, PTT INR 1.34 (0.83-1.09) H 12/17/18 17:59 Assessment/Plan Current Medications Generic Name Dose Route Start Last Admin Trade Name Freq PRN Reason Stop Dose Admin Acetaminophen 325 mg 12/18/18 09:23 12/18/18 21:15 Tylenol - PO 325 mg Q6H PRN Administration PAIN OR FEVER Albuterol Sulfate 1 amp 12/18/18 09:23 Ventolin 0.083% Nebulizer Soln - NEB Q4H PRN SHORT OF BREATH/WHEEZING Aripiprazole 10 mg 12/18/18 10:00 12/18/18 10:17 Abilify PO 10 mg DAILY [facility] Administration Atorvastatin Calcium 40 mg 12/17/18 22:00 12/18/18 21:15 Lipitor - PO 40 mg HS [facility] Administration Carvedilol 25 mg 12/18/18 10:00 12/18/18 21:15 Coreg - PO 25 mg BID [facility] Administration Epoetin Shawn 3,000 unit/ 5,000 unit 12/18/18 09:15 Epoetin Shawn 2,000 unit SQ 12/18/18 09:16 ONCE ONE Heparin Sodium (Porcine) 1,000 unit 12/18/18 09:15 Heparin - IVPUSH 12/18/18 09:16 ONCE ONE Hydralazine HCl 100 mg 12/18/18 14:00 12/19/18 05:03 Apresoline - PO 100 mg TID [facility] Administration Sodium Chloride 250 mls @ 3,000 mls/hr 12/18/18 09:10 Normal Saline - IV PRN PRN Hypotension during Dialysis Nifedipine 60 mg 12/18/18 10:00 12/18/18 10:17 Procardia Xl - PO 60 mg DAILY [facility] Administration Sevelamer Carbonate 800 mg 12/18/18 08:00 12/19/18 11:45 Renvela - PO Not Given TIDCM [facility] Tramadol HCl 50 mg 12/18/18 09:22 12/18/18 10:24 Ultram - PO 50 mg Q4H PRN Administration PAIN LEVEL 6-10 Impression 1. ESRD 2. CKD 3. gout 4. HTN 5. CHF 6. DM 7. hx bipolar 8. MOLLY Plan - HD today - pt will be off schedule for this week - monitor bp - bipap as needed - renal diet Dr Raphael
[2018-12-19] MEDS ORDERED: SODIUM CHLORIDE 250 ML IV PRN (12:19)
[2018-12-19] MEDS ORDERED: HEPARIN NA (PORCINE) 5,000 UNITS/ML 1ML VIAL IVPUSH SCH (12:30)
[2018-12-19] MEDS: traMADol HCL 50 MG TABLET PO PRN (12:43)
--- NOTE | 2018-12-19 12:56 | PN ---
Progress Note (short form) - Note Progress Note: pt seen/ examined chart reviewed c/c -- pain in ankles--says its bad. going to be dialized today Vital Signs Temp 99.7 F H 12/19/18 10:07 Pulse 108 H 12/19/18 10:07 Resp 22 H 12/19/18 10:07 BP 124/65 12/19/18 10:07 Pulse Ox 97 12/19/18 08:01 Intake & Output 12/18/18 12/19/18 12/19/18 23:59 11:59 23:59 Intake Total 100 250 Balance 100 250 Weight 279 lb Intake: Oral 100 250 Other: Voiding Method Diaper Incontinent Bowel Movement Yes No Height 5 ft 9 in Body Mass Index (BMI) 41.2 Weight Measurement Method Stated by Patient Active Medications Acetaminophen (Tylenol -) 325 mg PO Q6H PRN PRN Reason: PAIN OR FEVER Last Admin: 12/18/18 21:15 Dose: 325 mg Albuterol Sulfate (Ventolin 0.083% Nebulizer Soln -) 1 amp NEB Q4H PRN PRN Reason: SHORT OF BREATH/WHEEZING Aripiprazole (Abilify) 10 mg PO DAILY [facility] Last Admin: 12/18/18 10:17 Dose: 10 mg Atorvastatin Calcium (Lipitor -) 40 mg PO HS [facility] Last Admin: 12/18/18 21:15 Dose: 40 mg Carvedilol (Coreg -) 25 mg PO BID [facility] Last Admin: 12/18/18 21:15 Dose: 25 mg Epoetin Shawn 3,000 unit/ (Epoetin Shawn 2,000 unit) 5,000 unit IVPUSH ONCE ONE Stop: 12/19/18 13:31 Heparin Sodium (Porcine) (Heparin -) 1,000 unit IVPUSH ONCE [facility] Stop: 12/19/18 16:00 Hydralazine HCl (Apresoline -) 100 mg PO TID [facility] Last Admin: 12/19/18 05:03 Dose: 100 mg Sodium Chloride (Normal Saline -) 250 mls @ 3,000 mls/hr IV PRN PRN PRN Reason: Hypotension during Dialysis Nifedipine (Procardia Xl -) 60 mg PO DAILY [facility] Last Admin: 12/18/18 10:17 Dose: 60 mg Sevelamer Carbonate (Renvela -) 800 mg PO TIDCM [facility] Last Admin: 12/19/18 11:45 Dose: Not Given Tramadol HCl (Ultram -) 50 mg PO Q4H PRN PRN Reason: PAIN LEVEL 6-10 Last Admin: 12/19/18 12:43 Dose: 50 mg CBC, BMP 12/18/18 07:00 12/18/18 07:00 x rays- ankles - reviewed Physical Exam awake/ obese S1 S2 RRR Lungs decreased Abd-soft, NT no edema No knee effusions, not tender, no restriction of movements ankles-- no swelling/ reddness -- tender to touch -- both PLAN discussed says tramadol not helping will change to oxy for now ortho eval d/c tele will follow Problem List - Problems (1) ESRD needing dialysis Code(s): N18.6 - END STAGE RENAL DISEASE; Z99.2 - DEPENDENCE ON RENAL DIALYSIS (2) Bipolar 1 disorder Code(s): F31.9 - BIPOLAR DISORDER, UNSPECIFIED (3) Chronic ankle pain, bilateral Code(s): M25.571 - PAIN IN RIGHT ANKLE AND JOINTS OF RIGHT FOOT; M25.572 - PAIN IN LEFT ANKLE AND JOINTS OF LEFT FOOT; G89.29 - OTHER CHRONIC PAIN
[2018-12-19] MEDS ORDERED: EPOETIN ALFA 3,000 UNIT, EPOETIN ALFA 2,000 UNIT IVPUSH ONE (13:30)
[2018-12-19 13:59] LABS: ALK PHOS 149 U/L (45-117); ANION GAP 12 MMOL/L (8-16); BILIRUBIN,TOTAL 0.3 mg/dL (0.2-1); BLOOD UREA NITROGEN 74 mg/dL (7-18); CALCIUM 8.7 mg/dL (8.5-10.1); CHLORIDE 95 mmol/L (98-107); CO2 25 mmol/L (21-32); GLUCOSE,RANDOM 110 mg/dL (74-106); POTASSIUM 4.8 mmol/L (3.5-5.1); SGOT/AST 94 U/L (15-37); SGPT/ALT 54 U/L (13-61); SODIUM 131 mmol/L (136-145); TOT PROT 7.8 g/dl (6.4-8.2)
--- NOTE | 2018-12-19 14:16 | CONSULT ---
Consult - text type - Consultation Consultation Note: ORTHOPEDIC SURGERY CONSULTATION NOTE Department of Orthopedic Surgery HISTORY OF PRESENT ILLNESS Mr. Pena is a 58 year old male from [facility] with a past medical history of CHF, ESRD on HD via permacath (,,), HTN, DM, Gout, multiple psychiatric disorders (non compliant with medication). He presents to the ED with chest pressure, generalized weakness, body pain and did not want to go to dialysis. The orthopedic service was consulted for bilateral ankle pain. The patient denies any traumatic injuries, but states he's been having pain intermittently for the past 2 weeks. The patient notes pain with movement of the ankles, and difficulty walking because of the pain. He states he's had this pain before, and he attributes this pain to gouty arthritis that he has been diagnosed with in the past. Denies any other injuries. Denies numbness, tingling or other constitutional complaints, including fever/chils. Denies tobacco use, drug use, alcohol abuse. FAMILY HISTORY non-contributory REVIEW OF SYMPTOMS A twelve-point review of systems was performed and was negative except as noted in HPI. PHYSICAL EXAM Constitutional: Alert and oriented to person, place, and time. Appears well- developed and well-nourished. No acute distress, appropriate mood and affect. Right Lower Extremity: Skin warm, dry, and intact; no lesions, rashes or ulcers noted. No erythema or swelling noticed in the ankle joint. Muscle mass equal and symmetric to contralateral side. No atrophy noted. No masses or effusions noted. Tender to palpation at of the medial / lateral malleolus; nontender throughout rest of extremity. No cords or calf tenderness. No significant calf/ ankle edema. Full passive and active ROM of the knee and hip and toes, free from pain. LROM of the ankle joint in plantarflexion and dorsiflexion secondary to pain (10 degrees of dorsiflexion, 15 degeres of plantarflexion with minimal discomfort). Joints stable with no pathologic laxity. EHL/TA/GS motor intact; SILT distally; 2+ DP pulses; Cap refill brisk. Tone and reflexes normal. No signs of infection, effusion, or fluctuance. Able to SLR; Negative log roll. Left Lower Extremity: Skin warm, dry, and intact; no lesions, rashes or ulcers noted. No erythema or swelling noticed in the ankle joint. Muscle mass equal and symmetric to contralateral side. No atrophy noted. No masses or effusions noted. Tender to palpation at of the medial / lateral malleolus; nontender throughout rest of extremity. No cords or calf tenderness. No significant calf/ ankle edema. Full passive and active ROM of the knee and hip and toes, free from pain. LROM of the ankle joint in plantarflexion and dorsiflexion secondary to pain (10 degrees of dorsiflexion, 15 degeres of plantarflexion with minimal discomfort). Joints stable with no pathologic laxity. EHL/TA/GS motor intact; SILT distally; 2+ DP pulses; Cap refill brisk. Tone and reflexes normal. No signs of infection, effusion, or fluctuance. Able to SLR; Negative log roll. Intake & Output 12/17/18 12/18/18 12/19/18 23:59 23:59 23:59 Intake Total 100 250 Balance 100 250 Intake: Oral 100 250 Other: Voiding Method Diaper Incontinent Bowel Movement Yes No Weight 279 lb 279 lb Height 5 ft 9 in 5 ft 9 in Body Mass Index (BMI) 41.2 41.2 Weight Measurement Method Stated by Patient Active Medications Generic Name Dose Route Start Last Admin Trade Name Freq PRN Reason Stop Dose Admin Acetaminophen 325 mg 12/18/18 09:23 12/18/18 21:15 Tylenol - PO 325 mg Q6H PRN Administration PAIN OR FEVER Albuterol Sulfate 1 amp 12/18/18 09:23 Ventolin 0.083% Nebulizer Soln - NEB Q4H PRN SHORT OF BREATH/WHEEZING Aripiprazole 10 mg 12/18/18 10:00 12/18/18 10:17 Abilify PO 10 mg DAILY [facility] Administration Atorvastatin Calcium 40 mg 12/17/18 22:00 12/18/18 21:15 Lipitor - PO 40 mg HS [facility] Administration Carvedilol 25 mg 12/18/18 10:00 12/18/18 21:15 Coreg - PO 25 mg BID [facility] Administration Heparin Sodium (Porcine) 1,000 unit 12/19/18 12:30 12/19/18 13:13 Heparin - IVPUSH 12/19/18 16:00 1,000 unit ONCE [facility] Administration Hydralazine HCl 100 mg 12/18/18 14:00 12/19/18 05:03 Apresoline - PO 100 mg TID [facility] Administration Sodium Chloride 250 mls @ 3,000 mls/hr 12/19/18 12:19 Normal Saline - IV PRN PRN Hypotension during Dialysis Nifedipine 60 mg 12/18/18 10:00 12/18/18 10:17 Procardia Xl - PO 60 mg DAILY [facility] Administration Oxycodone HCl 5 mg 12/19/18 12:56 Roxicodone - PO Q6H PRN PAIN LEVEL 6-10 Sevelamer Carbonate 800 mg 12/18/18 08:00 12/19/18 11:45 Renvela - PO Not Given TIDCM [facility] Vital Signs (last) Temp Pulse Resp BP Pulse Ox 99.7 F H 114 H 20 87/61 L 97 12/19/18 10:07 12/19/18 13:00 12/19/18 13:00 12/19/18 13:00 12/19/18 08:01 Laboratory (coagulation) PT with INR 15.90 SEC (9.7-13.0) H 12/17/18 17:59 Laboratory 12/18/18 07:00 12/19/18 12:30 IMAGING I personally reviewed all radiographs, CT, and other imaging. They demonstrate no fractures, dislocations, bony lesions, subluxations or effusion. There are mild degenerative changes, and heel spurring. ASSESSMENT AND PLAN Mr. Pena is a 58 year old male presenting with a bilateral ankle pain - likely gouty flair based on stated history. Unlikely to be bilateral septic ankle joints based on clinical exam. We have reviewed the imaging and clinical findings in detail, as well as their potential implications. After appropriate informed discussion, we agreed on the following plan. - Pain control - DVT prophylaxis - Recommend Rheumatology Consult - Physical therapy / WBAT b/l LE - Will follow All questions were answered. Thank you for involving our team in the care of this patient. Please call us with any questions or concerns. [phone].
[2018-12-19 14:18] LABS: CREATININE 14.5 mg/dL (0.55-1.3)
--- NOTE | 2018-12-19 14:42 | PN ---
Progress Note, Physician Chief Complaint: Cardiology FU Telem NSR No dyspnea History of Present Illness: 58 y/o M with PMHx of diastolic CHF, NIDDM, HTN, HLD, ESRD-HD, noncompliant with medications, bipolar disorder multiple admissions for bp control, fluid overload admitted with generalized pain, joint pain and continuous chest pain, sob. He recently refused stress testing. Echo 11/17/18 showed normal EF. ECG without acute changes. - Current Medication List Current Medications: Active Medications Acetaminophen (Tylenol -) 325 mg PO Q6H PRN PRN Reason: PAIN OR FEVER Last Admin: 12/18/18 21:15 Dose: 325 mg Albuterol Sulfate (Ventolin 0.083% Nebulizer Soln -) 1 amp NEB Q4H PRN PRN Reason: SHORT OF BREATH/WHEEZING Aripiprazole (Abilify) 10 mg PO DAILY [facility] Last Admin: 12/18/18 10:17 Dose: 10 mg Atorvastatin Calcium (Lipitor -) 40 mg PO HS [facility] Last Admin: 12/18/18 21:15 Dose: 40 mg Carvedilol (Coreg -) 25 mg PO BID [facility] Last Admin: 12/18/18 21:15 Dose: 25 mg Heparin Sodium (Porcine) (Heparin -) 1,000 unit IVPUSH ONCE [facility] Stop: 12/19/18 16:00 Last Admin: 12/19/18 13:13 Dose: 1,000 unit Hydralazine HCl (Apresoline -) 100 mg PO TID [facility] Last Admin: 12/19/18 05:03 Dose: 100 mg Sodium Chloride (Normal Saline -) 250 mls @ 3,000 mls/hr IV PRN PRN PRN Reason: Hypotension during Dialysis Nifedipine (Procardia Xl -) 60 mg PO DAILY [facility] Last Admin: 12/18/18 10:17 Dose: 60 mg Oxycodone HCl (Roxicodone -) 5 mg PO Q6H PRN PRN Reason: PAIN LEVEL 6-10 Sevelamer Carbonate (Renvela -) 800 mg PO TIDCM [facility] Last Admin: 12/19/18 11:45 Dose: Not Given - Objective Vital Signs: Vital Signs Temperature 99.7 F H 12/19/18 10:07 Pulse Rate 78 12/19/18 14:15 Respiratory Rate 18 12/19/18 14:15 Blood Pressure 118/64 12/19/18 14:15 O2 Sat by Pulse Oximetry (%) 97 12/19/18 08:01 Constitutional: Yes: Well Nourished, No Distress Eyes: Yes: Conjunctiva Clear HENT: Yes: Atraumatic, Normocephalic Neck: Yes: Supple, Trachea Midline Cardiovascular: Yes: Regular Rate and Rhythm Respiratory: Yes: Regular, CTA Bilaterally Gastrointestinal: Yes: Normal Bowel Sounds Labs: CBC, BMP 12/18/18 07:00 12/19/18 12:30 INR, PTT INR 1.34 (0.83-1.09) H 12/17/18 17:59 Problem List - Problems (1) Chest pain Code(s): R07.9 - CHEST PAIN, UNSPECIFIED Assessment/Plan 58 y/o M with PMHx of diastolic CHF, NIDDM, HTN, HLD, CKD 5 bipolar disorder recent admission for bp control, CKD5 admitted with sob, found with fluid overload and possible pneumonia. Troponin is minimally elevated. No chest pain , orthopnea or PND. Echo 06/07 showed normal EF. ECG without acute changes. -No evidence of ACS. -No ECG changes. -DC telemetry -HD for fluid removal. Will see PRN
[2018-12-19] MEDS ORDERED: PT OWN MED DRAWER 7, Y5N ONE (16:22)
[2018-12-19] MEDS: oxyCODONE HCL 5 MG TABLET PO PRN (16:28)
[2018-12-19] MEDS: ARIPiprazole 10 MG TABLET PO SCH (16:28)
[2018-12-19] MEDS: CARVEDILOL 25 MG TABLET (FP) PO SCH ×2 (16:28→21:32)
[2018-12-19] MEDS: NIFEdipine E.R 60 MG TABLET (UD) PO SCH (16:31)
[2018-12-19] MEDS: ATORVASTATIN CA 40 MG TABLET (FP) PO SCH (21:32)
[2018-12-20] MEDS: hydrALAZINE HCL 50 MG TABLET (FP) PO SCH ×2 (06:04→14:42)
[2018-12-20] MEDS: oxyCODONE HCL 5 MG TABLET PO PRN (06:04)
[2018-12-20] MEDS ORDERED: PT OWN MED DRAWER 7, Y5N ONE (09:24)
[2018-12-20] MEDS: SEVELAMER CARBONATE 800 MG TAB (FP) PO SCH ×3 (09:26→17:50)
[2018-12-20] MEDS: NIFEdipine E.R 60 MG TABLET (UD) PO SCH (09:27)
[2018-12-20] MEDS: ARIPiprazole 10 MG TABLET PO SCH (09:27)
[2018-12-20] MEDS ORDERED: predniSONE 20 MG TABLET (UD) PO SCH (10:00)
--- NOTE | 2018-12-20 10:32 | PN ---
Progress Note (short form) - Note Progress Note: no chest pain c/o b/l knees pain , ankle pain Vital Signs - 24 hr 12/19/18 12/19/18 12/19/18 12:30 12:45 13:00 Temperature Pulse Rate 108 H 115 H 114 H Respiratory 18 18 20 Rate Blood Pressure 125/71 120/74 87/61 L O2 Sat by Pulse Oximetry (%) 12/19/18 12/19/18 12/19/18 13:15 13:45 14:15 Temperature Pulse Rate 107 H 105 H 78 Respiratory 18 18 18 Rate Blood Pressure 97/62 103/61 118/64 O2 Sat by Pulse Oximetry (%) 12/19/18 12/19/18 12/19/18 14:45 15:15 15:45 Temperature Pulse Rate 80 86 100 H Respiratory 18 18 18 Rate Blood Pressure 94/63 101/45 L 106/68 O2 Sat by Pulse Oximetry (%) 12/19/18 12/19/18 12/19/18 15:55 16:31 21:00 Temperature 99.1 F Pulse Rate 117 H 115 H Respiratory 18 22 H Rate Blood Pressure 116/89 124/78 O2 Sat by Pulse 97 Oximetry (%) 12/19/18 12/20/18 12/20/18 22:00 06:00 08:24 Temperature 98.0 F 98.3 F Pulse Rate 108 H 110 H Respiratory 20 20 Rate Blood Pressure 109/57 L 110/65 O2 Sat by Pulse 91 L Oximetry (%) 12/20/18 09:40 Temperature 98.8 F Pulse Rate 100 H Respiratory 20 Rate Blood Pressure 91/53 L O2 Sat by Pulse Oximetry (%) Current Medications Generic Name Dose Route Start Last Admin Trade Name Freq PRN Reason Stop Dose Admin Acetaminophen 325 mg 12/18/18 09:23 12/18/18 21:15 Tylenol - PO 325 mg Q6H PRN Administration PAIN OR FEVER Albuterol Sulfate 1 amp 12/18/18 09:23 Ventolin 0.083% Nebulizer Soln - NEB Q4H PRN SHORT OF BREATH/WHEEZING Aripiprazole 10 mg 12/18/18 10:00 12/20/18 09:27 Abilify PO 10 mg DAILY [facility] Administration Atorvastatin Calcium 40 mg 12/17/18 22:00 12/19/18 21:32 Lipitor - PO 40 mg HS [facility] Administration Carvedilol 25 mg 12/18/18 10:00 12/19/18 21:32 Coreg - PO 25 mg BID [facility] Administration Hydralazine HCl 100 mg 12/18/18 14:00 12/20/18 06:04 Apresoline - PO 100 mg TID [facility] Administration Sodium Chloride 250 mls @ 3,000 mls/hr 12/19/18 12:19 Normal Saline - IV PRN PRN Hypotension during Dialysis Nifedipine 60 mg 12/18/18 10:00 12/20/18 09:27 Procardia Xl - PO 60 mg DAILY [facility] Administration Oxycodone HCl 5 mg 12/19/18 12:56 12/20/18 06:04 Roxicodone - PO 5 mg Q6H PRN Administration PAIN LEVEL 6-10 Sevelamer Carbonate 800 mg 12/18/18 08:00 12/20/18 09:26 Renvela - PO 800 mg TIDCM [facility] Administration Laboratory Results - last 24 hr 12/19/18 12:30 Sodium 131 L Potassium 4.8 Chloride 95 L Carbon Dioxide 25 Anion Gap 12 BUN 74 H Creatinine 14.5 H* Creat Clearance w eGFR 3.53 Random Glucose 110 H Calcium 8.7 Total Bilirubin 0.3 AST 94 H ALT 54 Alkaline Phosphatase 149 H Total Protein 7.8 Albumin 2.0 L S1 S2 RRR Lungs decreased Abd-soft, NT no edema No knee effusions, not tender, no restriction of movements PLAN Cardiology, ortho and Renal eval noted oxycodone prn for pain PT eval pt has MRI knee scheduled from [place] continue with meds HD per renal Problem List - Problems (1) Chest pain Code(s): R07.9 - CHEST PAIN, UNSPECIFIED (2) ESRD needing dialysis Code(s): N18.6 - END STAGE RENAL DISEASE; Z99.2 - DEPENDENCE ON RENAL DIALYSIS (3) Chronic diastolic heart failure Code(s): I50.32 - CHRONIC DIASTOLIC (CONGESTIVE) HEART FAILURE (4) Arthritis Code(s): M19.90 - UNSPECIFIED OSTEOARTHRITIS, UNSPECIFIED SITE (5) Bipolar 1 disorder Code(s): F31.9 - BIPOLAR DISORDER, UNSPECIFIED
--- NOTE | 2018-12-20 11:10 | DS ---
Physical Examination Vital Signs: Vital Signs Temperature 98.8 F 12/20/18 09:40 Pulse Rate 100 H 12/20/18 09:40 Respiratory Rate 20 12/20/18 09:40 Blood Pressure 91/53 L 12/20/18 09:40 O2 Sat by Pulse Oximetry (%) 91 L 12/20/18 08:24 Constitutional: Yes: No Distress, Calm Cardiovascular: Yes: Regular Rate and Rhythm Respiratory: Yes: CTA Bilaterally Gastrointestinal: Yes: Normal Bowel Sounds, Soft. No: Tenderness Edema: No Labs: CBC, BMP 12/18/18 07:00 12/19/18 12:30 Discharge Summary Reason For Visit: END STAGE RENAL DISEASE NEEDING DIALYSIS Current Active Problems Chest pain (Acute) ESRD needing dialysis (Acute) Chronic diastolic heart failure (Chronic) Hospital Course: Admitted for chest pain , b/l knees and ankles pain Evaluated by Cardiology, Renal and Ortho Rheumatology also evaluated pt ON oxycodone for pain relief Pt is better stable cardiac trujillo As per Ortho-- Mr. Pena is a 58 year old male presenting with a bilateral ankle pain - likely gouty flair based on stated history. Unlikely to be bilateral septic ankle joints based on clinical exam. We have reviewed the imaging and clinical findings in detail, as well as their potential implications. After appropriate informed discussion, we agreed on the following plan. - Pain control - DVT prophylaxis - Physical therapy / WBAT b/l LE stable for dc to NH Condition: Fair - Instructions Disposition: ASSISTED FACILITY - Home Medications Comprehensive Discharge Medication List: Ambulatory Orders Aripiprazole [Abilify] 10 mg PO DAILY 04/24/17 Atorvastatin Ca [Lipitor] 40 mg PO HS 04/24/17 Albuterol 0.083% Nebulizer Jcalyn [Ventolin 0.083% Nebulizer Soln -] 1 amp NEB Q4H PRN #1 amp 08/02/18 Carvedilol [Coreg -] 25 mg PO BID #60 tablet 08/02/18 Nifedipine ER [Procardia XL -] 60 mg PO DAILY #30 tab.er.24 08/02/18 hydrALAZINE HCL [Apresoline -] 100 mg PO TID #90 tablet 08/02/18 Sevelamer Carbonate [Renvela -] 800 mg PO TIDCM tab 11/30/18 Acetaminophen [Tylenol] 325 mg PO Q6H PRN MDD 2000 12/13/18 Tramadol HCl 50 mg PO Q8H 12/17/18
--- NOTE | 2018-12-20 11:21 | CONSULT ---
Consult Consult Specialty:: Rheumatology - History of Present Illness History of Present Illness: 58 y/o male from [facility] with a past medical history of CHF, ESRD on HD via permacath (,,), HTN, DM, Gout, multiple psychiatric disorders ( non compliant with medication), admitted with bilateral ankle pain, chest pressure, weakness, diffuse aches and pain and did not want to go to dialysis. Gout. The patient is a poor historian. He reports he has history of gout since 1998 and on average he has 1 episode of acute arthritis per year. He reports a 1 week history of acute pain in both ankles. Laboratory revealed creatinine of 14.5 and uric acid 6.9. - History Source History Provided By: Patient, Medical Record - Past Medical History Cardio/Vascular: Yes: CHF, HTN, Hyperlipdemia Pulmonary: Yes: COPD Renal/: Yes: Renal Failure, Renal Inusuff, Hemodialysis Psych: Yes: Bipolar, Schizophrenia Rheumatology: Yes: Gout Additional Medical History: obesity, non compliance - Alcohol/Substance Use Hx Alcohol Use: No - Smoking History Smoking history: Never smoked Have you smoked in the past 12 months: No Aproximately how many cigarettes per day: 0 - Social History Usual Living Arrangement: With Significant Other ADL: Support Services Occupation: disability History of Recent Travel: No Home Medications - Allergies Allergies/Adverse Reactions: Allergies Allergy/AdvReac Type Severity Reaction Status Date / Time No Known Allergies Allergy Verified 12/17/18 16:46 - Home Medications Home Medications: Ambulatory Orders Aripiprazole [Abilify] 10 mg PO DAILY 04/24/17 Atorvastatin Ca [Lipitor] 40 mg PO HS 04/24/17 Albuterol 0.083% Nebulizer Jaclyn [Ventolin 0.083% Nebulizer Soln -] 1 amp NEB Q4H PRN #1 amp 08/02/18 Carvedilol [Coreg -] 25 mg PO BID #60 tablet 08/02/18 Nifedipine ER [Procardia XL -] 60 mg PO DAILY #30 tab.er.24 08/02/18 hydrALAZINE HCL [Apresoline -] 100 mg PO TID #90 tablet 08/02/18 Sevelamer Carbonate [Renvela -] 800 mg PO TIDCM tab 11/30/18 Acetaminophen [Tylenol] 325 mg PO Q6H PRN MDD 199912/13/18 Tramadol HCl 50 mg PO Q8H 12/17/18 Allopurinol [Zyloprim -] 100 mg PO DAILY #30 tablet 12/20/18 Family Disease History - Family Disease History Family Disease History: Heart Disease: Father (HTN) Review of Systems - Review of Systems Constitutional: reports: Malaise Eyes: reports: No Symptoms HENT: reports: No Symptoms Neck: reports: No Symptoms Cardiovascular: reports: Chest Pain Respiratory: reports: SOB Gastrointestinal: reports: No Symptoms Musculoskeletal: reports: Other (HPI) Physical Exam Vital Signs: Vital Signs Temperature 98.8 F 12/20/18 09:40 Pulse Rate 100 H 12/20/18 09:40 Respiratory Rate 20 12/20/18 09:40 Blood Pressure 91/53 L 12/20/18 09:40 O2 Sat by Pulse Oximetry (%) 91 L 12/20/18 08:24 Constitutional: Yes: Moderate Distress Eyes: Yes: WNL HENT: Yes: WNL Neck: Yes: WNL Cardiovascular: Yes: WNL Respiratory: Yes: WNL Gastrointestinal: Yes: WNL Musculoskeletal: Yes: Other (Diffuse tenderness in feet Swelling in both ankles. Probable significant tenderness in the left 2nd and 3rd MTPs and right 1st and 2nd MTPs.) Labs: CBC, BMP 12/18/18 07:00 12/19/18 12:30 Problem List - Problems (1) Gout Assessment/Plan: Probable acute gouty arthritis involving both ankles. Plan: Prednisone 40 mg /d for 3 days then taper down and DC. Code(s): M10.9 - GOUT, UNSPECIFIED
[2018-12-20] MEDS: CARVEDILOL 25 MG TABLET (FP) PO SCH (11:52)
[2018-12-20] MEDS ORDERED: SODIUM CHLORIDE 250 ML IV PRN (13:26)
--- NOTE | 2018-12-20 13:26 | PN ---
Progress Note, Physician History of Present Illness: Pt seen and examined at bedside. He is awake and alert. He denies shortness of breath. - Current Medication List Current Medications: Active Medications Acetaminophen (Tylenol -) 325 mg PO Q6H PRN PRN Reason: PAIN OR FEVER Last Admin: 12/18/18 21:15 Dose: 325 mg Albuterol Sulfate (Ventolin 0.083% Nebulizer Soln -) 1 amp NEB Q4H PRN PRN Reason: SHORT OF BREATH/WHEEZING Aripiprazole (Abilify) 10 mg PO DAILY [facility] Last Admin: 12/20/18 09:27 Dose: 10 mg Atorvastatin Calcium (Lipitor -) 40 mg PO HS [facility] Last Admin: 12/19/18 21:32 Dose: 40 mg Carvedilol (Coreg -) 25 mg PO BID [facility] Last Admin: 12/20/18 11:52 Dose: 25 mg Hydralazine HCl (Apresoline -) 100 mg PO TID [facility] Last Admin: 12/20/18 06:04 Dose: 100 mg Sodium Chloride (Normal Saline -) 250 mls @ 3,000 mls/hr IV PRN PRN PRN Reason: Hypotension during Dialysis Nifedipine (Procardia Xl -) 60 mg PO DAILY [facility] Last Admin: 12/20/18 09:27 Dose: 60 mg Oxycodone HCl (Roxicodone -) 5 mg PO Q6H PRN PRN Reason: PAIN LEVEL 6-10 Last Admin: 12/20/18 06:04 Dose: 5 mg Prednisone (Deltasone -) 20 mg PO DAILY [facility] Stop: 12/25/18 10:01 Prednisone (Deltasone -) 40 mg PO DAILY [facility] Stop: 12/22/18 10:01 Last Admin: 12/20/18 11:56 Dose: 40 mg Prednisone (Deltasone -) 10 mg PO DAILY [facility] Stop: 12/28/18 10:01 Prednisone (Deltasone -) 5 mg PO DAILY [facility] Stop: 12/31/18 10:01 Sevelamer Carbonate (Renvela -) 800 mg PO TIDCM [facility] Last Admin: 12/20/18 11:53 Dose: 800 mg - Objective Vital Signs: Vital Signs Temperature 98.8 F 12/20/18 09:40 Pulse Rate 100 H 12/20/18 09:40 Respiratory Rate 20 12/20/18 09:40 Blood Pressure 91/53 L 12/20/18 09:40 O2 Sat by Pulse Oximetry (%) 91 L 12/20/18 09:00 Constitutional: Yes: Calm Eyes: Yes: Conjunctiva Clear HENT: Yes: Atraumatic Neck: Yes: Supple Cardiovascular: Yes: S1, S2 Respiratory: Yes: On Nasal O2 Gastrointestinal: Yes: Soft, Abdomen, Obese Genitourinary: Yes: WNL Musculoskeletal: Yes: Joint Stiffness Edema: LLE: Trace, RLE: Trace Neurological: Yes: Oriented Psychiatric: Yes: Oriented Labs: CBC, BMP 12/18/18 07:00 12/19/18 12:30 INR, PTT INR 1.34 (0.83-1.09) H 12/17/18 17:59 Assessment/Plan Current Medications Generic Name Dose Route Start Last Admin Trade Name Freq PRN Reason Stop Dose Admin Acetaminophen 325 mg 12/18/18 09:23 12/18/18 21:15 Tylenol - PO 325 mg Q6H PRN Administration PAIN OR FEVER Albuterol Sulfate 1 amp 12/18/18 09:23 Ventolin 0.083% Nebulizer Soln - NEB Q4H PRN SHORT OF BREATH/WHEEZING Aripiprazole 10 mg 12/18/18 10:00 12/20/18 09:27 Abilify PO 10 mg DAILY [facility] Administration Atorvastatin Calcium 40 mg 12/17/18 22:00 12/19/18 21:32 Lipitor - PO 40 mg HS [facility] Administration Carvedilol 25 mg 12/18/18 10:00 12/20/18 11:52 Coreg - PO 25 mg BID [facility] Administration Hydralazine HCl 100 mg 12/18/18 14:00 12/20/18 06:04 Apresoline - PO 100 mg TID [facility] Administration Sodium Chloride 250 mls @ 3,000 mls/hr 12/19/18 12:19 Normal Saline - IV PRN PRN Hypotension during Dialysis Nifedipine 60 mg 12/18/18 10:00 12/20/18 09:27 Procardia Xl - PO 60 mg DAILY [facility] Administration Oxycodone HCl 5 mg 12/19/18 12:56 12/20/18 06:04 Roxicodone - PO 5 mg Q6H PRN Administration PAIN LEVEL 6-10 Prednisone 20 mg 12/23/18 10:00 Deltasone - PO 12/25/18 10:01 DAILY [facility] Prednisone 40 mg 12/20/18 10:00 12/20/18 11:56 Deltasone - PO 12/22/18 10:01 40 mg DAILY [facility] Administration Prednisone 10 mg 12/26/18 10:00 Deltasone - PO 12/28/18 10:01 DAILY [facility] Prednisone 5 mg 12/29/18 10:00 Deltasone - PO 12/31/18 10:01 DAILY [facility] Sevelamer Carbonate 800 mg 12/18/18 08:00 12/20/18 11:53 Renvela - PO 800 mg TIDCM [facility] Administration Impression 1. ESRD 2. CKD 3. gout 4. HTN 5. CHF 6. DM 7. hx bipolar 8. MOLLY Plan - HD tomorrow - rheum input appreciated, pt started on steroids - pt is off if his normal HD schedule this week - bipap as needed - renal diet Dr Raphael
--- NOTE | 2018-12-20 17:50 | PN ---
Progress Note (short form) - Note Progress Note: ORTHOPEDIC SURGERY PROGRESS NOTE Department of Orthopedic Surgery SUBJECTIVE No acute events overnight. Denies chest pain, shortness of breath, or calf pain. No nausea or vomiting. Tolerating oral intake. Pain control difficult overnight, but improving. PHYSICAL EXAMINATION General: Alert, oriented, cooperative and no distress. Right Lower Extremity: Skin warm, dry, and intact; no lesions, rashes or ulcers noted. No erythema or swelling noticed in the ankle joint. Muscle mass equal and symmetric to contralateral side. No atrophy noted. No masses or effusions noted. Tender to palpation at of the medial / lateral malleolus; nontender throughout rest of extremity. No cords or calf tenderness. No significant calf/ ankle edema. Full passive and active ROM of the knee and hip and toes, free from pain. LROM of the ankle joint in plantarflexion and dorsiflexion secondary to pain (10 degrees of dorsiflexion, 15 degeres of plantarflexion with minimal discomfort). Joints stable with no pathologic laxity. EHL/TA/GS motor intact; SILT distally; 2+ DP pulses; Cap refill brisk. Tone and reflexes normal. No signs of infection, effusion, or fluctuance. Able to SLR; Negative log roll. Left Lower Extremity: Skin warm, dry, and intact; no lesions, rashes or ulcers noted. No erythema or swelling noticed in the ankle joint. Muscle mass equal and symmetric to contralateral side. No atrophy noted. No masses or effusions noted. Tender to palpation at of the medial / lateral malleolus; nontender throughout rest of extremity. No cords or calf tenderness. No significant calf/ ankle edema. Full passive and active ROM of the knee and hip and toes, free from pain. LROM of the ankle joint in plantarflexion and dorsiflexion secondary to pain (10 degrees of dorsiflexion, 15 degeres of plantarflexion with minimal discomfort). Joints stable with no pathologic laxity. EHL/TA/GS motor intact; SILT distally; 2+ DP pulses; Cap refill brisk. Tone and reflexes normal. No signs of infection, effusion, or fluctuance. Able to SLR; Negative log roll. DVT Exam: No evidence of DVT seen on physical exam; No cords or calf tenderness ; No significant calf/ankle edema. Intake & Output 03/31/19 04/01/19 04/02/19 23:59 23:59 23:59 Intake Total 100 450 300 Balance 100 450 300 Intake: Oral 100 450 300 Other: Voiding Method Diaper Incontinent Diaper # Unmeasured Voids Void 2 Bowel Movement Yes No Weight 279 lb Height 5 ft 9 in Body Mass Index (BMI) 41.2 Weight Measurement Method Stated by Patient Active Medications Generic Name Dose Route Start Last Admin Trade Name Freq PRN Reason Stop Dose Admin Acetaminophen 325 mg 12/18/18 09:23 12/18/18 21:15 Tylenol - PO 325 mg Q6H PRN Administration PAIN OR FEVER Albuterol Sulfate 1 amp 12/18/18 09:23 Ventolin 0.083% Nebulizer Soln - NEB Q4H PRN SHORT OF BREATH/WHEEZING Aripiprazole 10 mg 12/18/18 10:00 12/20/18 09:27 Abilify PO 10 mg DAILY [facility] Administration Atorvastatin Calcium 40 mg 12/17/18 22:00 12/19/18 21:32 Lipitor - PO 40 mg HS [facility] Administration Carvedilol 25 mg 12/18/18 10:00 12/20/18 11:52 Coreg - PO 25 mg BID [facility] Administration Epoetin Shawn 7,000 unit 12/21/18 13:26 Epogen - IVPUSH 12/21/18 13:27 ONCE ONE Heparin Sodium (Porcine) 1,000 unit 12/21/18 13:26 Heparin - IVPUSH 12/21/18 13:27 ONCE ONE Hydralazine HCl 100 mg 12/18/18 14:00 12/20/18 14:42 Apresoline - PO 100 mg TID [facility] Administration Sodium Chloride 250 mls @ 3,000 mls/hr 12/19/18 12:19 Normal Saline - IV PRN PRN Hypotension during Dialysis Sodium Chloride 250 mls @ 3,000 mls/hr 12/20/18 13:26 Normal Saline - IV 12/21/18 13:26 PRN PRN Hypotension during Dialysis Nifedipine 60 mg 12/18/18 10:00 12/20/18 09:27 Procardia Xl - PO 60 mg DAILY [facility] Administration Oxycodone HCl 5 mg 12/19/18 12:56 12/20/18 06:04 Roxicodone - PO 5 mg Q6H PRN Administration PAIN LEVEL 6-10 Prednisone 20 mg 12/23/18 10:00 Deltasone - PO 12/25/18 10:01 DAILY [facility] Prednisone 40 mg 12/20/18 10:00 12/20/18 11:56 Deltasone - PO 12/22/18 10:01 40 mg DAILY [facility] Administration Prednisone 10 mg 12/26/18 10:00 Deltasone - PO 12/28/18 10:01 DAILY [facility] Prednisone 5 mg 12/29/18 10:00 Deltasone - PO 12/31/18 10:01 DAILY [facility] Sevelamer Carbonate 800 mg 12/18/18 08:00 12/20/18 17:50 Renvela - PO Not Given TIDCM [facility] Vital Signs (last) Temp Pulse Resp BP Pulse Ox 98.4 F 100 H 16 114/61 91 L 12/20/18 12:55 12/20/18 12:55 12/20/18 12:55 12/20/18 12:55 12/20/18 09:00 Laboratory (coagulation) PT with INR 15.90 SEC (9.7-13.0) H 12/17/18 17:59 Laboratory 12/18/18 07:00 12/19/18 12:30 ASSESSMENT AND PLAN Mr. Pena is a 58 year old male presenting with a bilateral ankle pain - likely gouty flair based on stated history. Unlikely to be bilateral septic ankle joints based on clinical exam. We have reviewed the imaging and clinical findings in detail, as well as their potential implications. After appropriate informed discussion, we agreed on the following plan. - Pain control - DVT prophylaxis - Appreciate Rheumatology Consult - Physical therapy / WBAT b/l LE - No further orthopedic intervention at this time - Dispo Planning. All questions were answered. Thank you for involving our team in the care of this patient. Please call us with any questions or concerns.
[2018-12-20 18:14] VITALS: BP 116/66; PULSE 104; TEMP 98.2
[2018-12-21] MEDS ORDERED: EPOETIN ALFA 2,000 UNIT/1 ML VIAL IVPUSH ONE (13:26)
[2018-12-21] MEDS ORDERED: HEPARIN NA (PORCINE) 5,000 UNITS/ML 1ML VIAL IVPUSH ONE (13:26)
[2018-12-23] MEDS ORDERED: predniSONE 20 MG TABLET (UD) PO SCH (10:00)
[2018-12-26] MEDS ORDERED: predniSONE 10 MG TABLET (UD) PO SCH (10:00)
[2018-12-29] MEDS ORDERED: predniSONE 5 MG TABLET (UD) PO SCH (10:00)
== END 2018-12-20 21:11 | DRG 553 ==
LOC: JER 16:06 → JERBED 19:58 → J4S 12-18 17:26
PROVIDERS: ADMIT Internal Medicine; ATTEND Internal Medicine
PROC: 5A1D70Z Performance of Urinary Filtration, Intermittent, Less than 6 Hours Per Day (ICD-10-PCS; principal; 2018-12-19)
DX: M1A.9XX0 Chronic gout, unspecified, without tophus (tophi) (principal); N18.6 End stage renal disease; I13.2 Hypertensive heart and chronic kidney disease with heart failure and with stage 5 chronic kidney disease, or end stage renal disease; I50.32 Chronic diastolic (congestive) heart failure; Z68.41 Body mass index [BMI] 40.0-44.9, adult; E11.22 Type 2 diabetes mellitus with diabetic chronic kidney disease; Z99.2 Dependence on renal dialysis; Z91.14 Patient's other noncompliance with medication regimen; F31.9 Bipolar disorder, unspecified; Z53.29 Procedure and treatment not carried out because of patient's decision for other reasons; F20.9 Schizophrenia, unspecified; Z91.15 Patient's noncompliance with renal dialysis; E66.9 Obesity, unspecified; G47.33 Obstructive sleep apnea (adult) (pediatric); R07.89 Other chest pain
CPT/HCPCS: 36415; 71045-TC-FY; 73610-TC-RT-FY; 80048; 80053; 83880; 84155; 84165; 84484; 84550; 85025; 85610; 85730; 93005; 93010; 94660; 99285-25; J0885; J1644

== ENCOUNTER 2018-12-24 13:06 | Emergency (ER) | payer OTHER ==
[2018-12-24 13:39] VITALS: TEMP 98; BMI 43.1
[2018-12-24] MEDS ORDERED: ACETAMINOPHEN 325 MG TABLET (FP) PO ONE (13:53)
[2018-12-24] MEDS ORDERED: ACETAMINOPHEN 325 MG TABLET (FP) ONE (14:13)
--- NOTE | 2018-12-24 14:58 | PDOC ---
History of Present Illness - General Chief Complaint: Lightheaded Stated Complaint: FALL Time Seen by Provider: 12/24/18 13:53 History Source: Patient Exam Limitations: No Limitations - History of Present Illness Initial Comments: 12/24/18 14:51 Patient is a 58 y/o male with CHF, ESRD on HD ( T, Th, Sat), hTN, DM, and psych disorders who presents for dizziness and fall. Patient was at dailysis today, after he finished he got dizzy, fell down and hit his head. Patient reports he did not eat breakfast this morning. He has a headache in the back of his head and is unsure if he LOC. He denies change in vision, nausea, chest pain, shortness of breath. He states he still feels dizzy. He also complains of feet swelling and that they have been swollen for a long time. Patient lives at [facility] and they provide him with his medications. Past History - Past Medical History Allergies/Adverse Reactions: Allergies Allergy/AdvReac Type Severity Reaction Status Date / Time No Known Allergies Allergy Verified 12/24/18 13:37 Home Medications: Ambulatory Orders Acetaminophen [Tylenol] 650 mg PO QID 12/24/18 Albuterol 0.083% Nebulizer Jaclyn [Ventolin 0.083%] 1 neb NEB Q4H 12/24/18 Allopurinol [Zyloprim -] 100 mg PO DAILY 12/24/18 Aripiprazole [Abilify] 10 mg PO DAILY 12/24/18 Atorvastatin Ca [Lipitor] 40 mg PO HS 12/24/18 Carvedilol 25 mg PO BID 12/24/18 Hydralazine HCl 100 mg PO TID 12/24/18 Nifedipine ER [Procardia Xl -] 60 mg PO DAILY 12/24/18 Pantoprazole Sodium [Protonix] 40 mg PO DAILY 12/24/18 Prednisone 5 mg PO DAILY 12/24/18 Prednisone [Deltasone] 20 mg PO DAILY 12/24/18 Sevelamer Carbonate 800 mg PO TID 12/24/18 Silver Sulfadiazine 1% Top Cr [Silvadene -] 1 applic TP BID 12/24/18 Tramadol HCl 50 mg PO TID 12/24/18 Zinc Oxide 20% Topical Oint 454 gm NR BID 12/24/18 predniSONE [Deltasone -] 10 mg PO DAILY 12/24/18 Anemia: No Cardiac Disorders: Yes (chf) COPD: No CHF: Yes Diabetes: Yes (borderline) Disorders: Yes (HEMODIALYSIS) HTN: Yes Hypercholesterolemia: Yes Psychiatric Problems: Yes (bipolar) - Immunization History Td Vaccination: Yes TDAP Vaccination: Yes Immunization Up to Date: Yes - Suicide/Smoking/Psychosocial Hx Smoking History: Unknown if ever smoked Have you smoked in the past 12 months: No Number of Cigarettes Smoked Daily: 0 Information on smoking cessation initiated: No Hx Alcohol Use: No Drug/Substance Use Hx: No Substance Use Type: None Hx Substance Use Treatment: No Review of Systems - Review of Systems Constitutional: No: Chills, Fever HEENTM: No: Eye Pain Respiratory: No: Cough, Shortness of Breath Cardiac (ROS): No: Chest Pain ABD/GI: No: Abdominal Distended, Diarrhea, Nausea : No: Dysuria Musculoskeletal: No: Back Pain Neurological: Yes: Headache *Physical Exam - Vital Signs Last Vital Signs Temp Pulse Resp BP Pulse Ox 98.0 F 64 16 108/78 100 12/24/18 13:33 12/24/18 13:33 12/24/18 13:33 12/24/18 13:33 12/24/18 13:33 - Physical Exam Comments: 12/24/18 14:55 GENERAL: A&O x3, no acute distress HEENT: head autraumatic, PERRLA, EOMI HEART: RRR, no murmurs, rubs, or gallops LUNGS: CTAL B/L ABDOMEN: soft, non tender, non distended NEURO: CN II-XII intact, LLE 3/5 strength, sensation intact diffusely, ROM intact and strength 5/5 he rest of extremities EXTREMITIES: no pitting edema or swelling, 2+ DP pulses SKIN: no rashes or ulcers ED Treatment Course - Medications Given in the ED: ED Medications Discontinued Medications Generic Name Dose Route Start Last Admin Trade Name Freq PRN Reason Stop Dose Admin Acetaminophen 975 mg 12/24/18 13:53 12/24/18 14:15 Tylenol - PO 12/24/18 13:54 975 mg ONCE ONE Administration Medical Decision Making - Medical Decision Making 12/24/18 14:58 f/u head CT glucose check 12/24/18 16:[address] and Cspine without any abnormalitites Glucose 136 patient safe to go back home *DC/Admit/Observation/Transfer Diagnosis at time of Disposition: Fall Qualifiers: Encounter type: initial encounter Qualified Code(s): W19.XXXA - Unspecified fall, initial encounter - Discharge Dispostion Disposition: [facility]F-WAY FACILITY Condition at time of disposition: Improved - Referrals Referrals: Earnestine Shah MD [Primary Care Provider] - - Patient Instructions Additional Instructions: You presented to the Emergency Department for a fall. We did imaging of your head and found that everything was normal. Please continue to take all your home medications as prescribed. Please return to the Emergency Department if you have any dizziness, nausea, vomiting, change in vision, blurry vision, chest pain, or shortness of breath. - Post Discharge Activity
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
[2018-12-24 19:01] VITALS: BP 106/57; PULSE 87
== END 2018-12-24 19:01 ==
LOC: JER 13:06
DX: S09.8XXA Other specified injuries of head, initial encounter (principal); W18.39XA Other fall on same level, initial encounter; Y93.89 Activity, other specified; Y92.538 Other ambulatory health services establishments as the place of occurrence of the external cause; Y99.8 Other external cause status; I13.2 Hypertensive heart and chronic kidney disease with heart failure and with stage 5 chronic kidney disease, or end stage renal disease; E11.22 Type 2 diabetes mellitus with diabetic chronic kidney disease; N18.6 End stage renal disease; I50.89 Other heart failure; N17.8 Other acute kidney failure; Z99.2 Dependence on renal dialysis; E78.00 Pure hypercholesterolemia, unspecified; F31.9 Bipolar disorder, unspecified
CPT/HCPCS: 70450-TC; 72125-TC; 82962; 99283-25

== ENCOUNTER 2019-01-21 14:37 | Observation (INO) | payer OTHER ==
--- NOTE | 2019-01-21 14:54 | PDOC ---
History of Present Illness - General Chief Complaint: Pain Stated Complaint: REFUSAL OF DIALYSIS Time Seen by Provider: 01/21/19 14:54 - History of Present Illness Initial Comments: 01/21/19 16:30 The patient is a 58 year old male with a history of HTN, HLD, DM, CHF, ESRD on dialysis Wed who presents for evaluation of back pain. The patient reports that he has been refusing dialysis at his [facility] due to lower back pain from a previous sacral ulcer prompting his presentation to the ED for further evaluation. He notes that he does not know the last time he had dialysis but notes that he missed and 's sessions. He reports lower back pain as the reason for refusing his dialysis. He otherwise denies fevers, chills, SOB, chest pain, nausea, vomiting, abdominal pain, or changes with bowel movements. Past History - Past Medical History Allergies/Adverse Reactions: Allergies Allergy/AdvReac Type Severity Reaction Status Date / Time No Known Allergies Allergy Verified 12/24/18 13:37 Home Medications: Ambulatory Orders Acetaminophen [Tylenol] 650 mg PO QID 12/24/18 Albuterol 0.083% Nebulizer Jaclyn [Ventolin 0.083%] 1 neb NEB Q4H 12/24/18 Allopurinol [Zyloprim -] 100 mg PO DAILY 12/24/18 Aripiprazole [Abilify] 10 mg PO DAILY 12/24/18 Atorvastatin Ca [Lipitor] 40 mg PO HS 12/24/18 Carvedilol 25 mg PO BID 12/24/18 Hydralazine HCl 100 mg PO TID 12/24/18 Nifedipine ER [Procardia Xl -] 60 mg PO DAILY 12/24/18 Pantoprazole Sodium [Protonix] 40 mg PO DAILY 12/24/18 Prednisone 5 mg PO DAILY 12/24/18 Prednisone [Deltasone] 20 mg PO DAILY 12/24/18 Sevelamer Carbonate 800 mg PO TID 12/24/18 Silver Sulfadiazine 1% Top Cr [Silvadene -] 1 applic TP BID 12/24/18 Tramadol HCl 50 mg PO TID 12/24/18 Zinc Oxide 20% Topical Oint 454 gm NR BID 12/24/18 predniSONE [Deltasone -] 10 mg PO DAILY 12/24/18 Anemia: No Cardiac Disorders: Yes (chf) COPD: No CHF: Yes Diabetes: Yes (borderline) Disorders: Yes (ESRD) HTN: Yes Hypercholesterolemia: Yes Psychiatric Problems: Yes (bipolar) - Immunization History Td Vaccination: Yes TDAP Vaccination: Yes Immunization Up to Date: Yes - Suicide/Smoking/Psychosocial Hx Smoking History: Never smoked Have you smoked in the past 12 months: No Number of Cigarettes Smoked Daily: 0 Hx Alcohol Use: No Drug/Substance Use Hx: No Substance Use Type: None Hx Substance Use Treatment: No Review of Systems - Review of Systems Comments:: 01/21/19 16:40 Constitutional: No fevers, chills, fatigue, malaise HEENT: No Rhinorrhea, nasal congestion, visual changes Cardiovascular: No chest pain, syncope, palpitations, lightheadedness Respiratory: No Cough, SOB, Hemoptysis, Gastrointestinal: No Abdominal pain, Nausea, Vomiting, Constipation, Diarrhea, Melena Genitourinary: No Dysuria, Frequency, Urgency, Hesitancy, Hematuria, Flank pain Musculoskeletal: Lower back pain. No Myalgia, arthralgia Skin: No rashes, itching, bruising, pallor Neurologic: No Headache, Dizziness, Numbness, Weakness, or Tingling Psychiatric: No Hallucinations. No SI or HI *Physical Exam - Vital Signs Last Vital Signs Temp Pulse Resp BP Pulse Ox 97.3 F L 95 H 20 108/66 98 01/21/19 14:47 01/21/19 14:47 01/21/19 14:47 01/21/19 14:47 01/21/19 14:47 - Physical Exam Comments: 01/21/19 16:41 General Appearance: Nourished. No Apparent Distress HEENT: No Pharyngeal Erythema, Tonsillar Exudate, Tonsillar Erythema Neck: No Cervical Lymphadenopathy Respiratory/Chest: Lungs Clear, Normal Breath Sounds. No Crackles, Rales, Rhonchi, Wheezing Cardiovascular: Regular Rhythm, Regular Rate. No Murmur, Gallops, Rubs Gastrointestinal/Abdominal: Normal Bowel Sounds, Soft. No Guarding, Rebound, Tenderness Musculoskeletal: No CVA Tenderness Extremity: Normal Capillary Refill Integumentary: Healed Sacral Ulcer with some scarring noted. Normal Color, Dry , Warm Neurologic: Fully Oriented, Alert, Normal Mood/Affect, Normal Response, Heart Score/ECG Review #1 ECG reviewed & interpreted by me at: 16:41 01/21/19 16:41 Normal Sinus Rhythm No Acute ST changes HR 81 QRS 94 QTc 469 ED Treatment Course - LABORATORY CBC & Chemistry Diagram: 01/21/19 15:22 01/21/19 15:20 Medical Decision Making - Medical Decision Making 01/21/19 16:42 The patient is a 58 year old male with a history of HTN, HLD, DM, CHF, ESRD on dialysis , , [place] who presents for evaluation of back pain. Given the patient's history and physical exam, we obtained a cbc, cmp, ekg, chest plain film to evaluate further. CBC, cmp, did not demonstrate any acute changes. Chest plain film was unremarkable. The patient will require admission for dialysis given his missed dialysis sessions. We discussed the case with the admitting team Dr. Shah who accepted the patient for admission. *DC/Admit/Observation/Transfer Diagnosis at time of Disposition: ESRD needing dialysis - Discharge Dispostion Condition at time of disposition: Stable Decision to Admit order: Yes - Referrals Referrals: Earnestine Shah MD [Primary Care Provider] - - Patient Instructions - Post Discharge Activity
[2019-01-21 15:36] LABS: BASO % 0.8 % (0-2.0); EOS % 3.4 % (0-4.5); HEMATOCRIT 25.7 % (35.4-49); HEMOGLOBIN 8.1 GM/dL (11.7-16.9); LYMPH % 11.2 % (8-40); MCH 24.7 pg (25.7-33.7); MCHC 31.6 g/dl (32.0-35.9); MEAN CELL VOLUME 78.3 fl (80-96); MEAN PLT VOLUME 8.1 fl (7.5-11.1); NEUT % 67.6 % (42.8-82.8); PLATELET COUNT 338 K/MM3 (134-434); RBC 3.28 M/mm3 (4.00-5.60); RDW 20.1 % (11.9-15.9); WHITE BLOOD COUNT 7.9 K/mm3 (4.0-10.0)
[2019-01-21 15:59] LABS: ALBUMIN 2.4 g/dl (3.4-5.0); ALK PHOS 108 U/L (45-117); ANION GAP 9 MMOL/L (8-16); BILIRUBIN,TOTAL 0.3 mg/dL (0.2-1); BLOOD UREA NITROGEN 42 mg/dL (7-18); CALCIUM 8.7 mg/dL (8.5-10.1); CHLORIDE 95 mmol/L (98-107); CO2 28 mmol/L (21-32); GLUCOSE,RANDOM 91 mg/dL (74-106); SGOT/AST 17 U/L (15-37); SGPT/ALT 13 U/L (13-61); SODIUM 132 mmol/L (136-145); TOT PROT 7.9 g/dl (6.4-8.2)
[2019-01-21 16:00] LABS: CREATININE 14.1 mg/dL (0.55-1.3)
[2019-01-21] MEDS ORDERED: traMADol HCL 50 MG TABLET PO PRN (18:02)
--- NOTE | 2019-01-21 18:02 | HP ---
Admitting History and Physical - Primary Care Physician PCP: Earnestine Shah - Admission History of Present Illness: The patient is a 58 year old male with a history of HTN, HLD, DM, CHF, ESRD on dialysis , , Wed and Bipolar Disorder who presents for evaluation of back pain. The patient reports that he has been refusing dialysis at his [facility] due to lower back pain from a previous sacral ulcer prompting his presentation to the ED for further evaluation. He notes that he does not know the last time he had dialysis but notes that he missed and 's sessions. He reports lower back pain as the reason for refusing his dialysis. He otherwise denies fevers, chills, SOB, chest pain, nausea, vomiting, abdominal pain, or changes with bowel movements. Pt known to me from [facility] As per [facility]-- Pt has been refusing dialysis there as he dont want to be dialized in [facility] Pt seen / examined in er Awake/ comfortable Discussed with er resident chart reviewed History Source: Patient, Medical Record - Past Medical History Cardiovascular: Yes: CHF, HTN, Hyperlipdemia Pulmonary: Yes: COPD Renal/: Yes: Renal Failure, Renal Inusuff, Hemodialysis Psych: Yes: Bipolar, Schizophrenia Rheumatology: Yes: Gout - Smoking History Smoking history: Never smoked Have you smoked in the past 12 months: No Aproximately how many cigarettes per day: 0 - Alcohol/Substance Use Hx Alcohol Use: No - Social History ADL: Support Services Occupation: disability History of Recent Travel: No Home Medications - Allergies Allergies/Adverse Reactions: Allergies Allergy/AdvReac Type Severity Reaction Status Date / Time No Known Allergies Allergy Verified 12/24/18 13:37 - Home Medications Home Medications: Ambulatory Orders Allopurinol [Zyloprim -] 100 mg PO DAILY 12/24/18 Atorvastatin Ca [Lipitor] 40 mg PO HS 12/24/18 Carvedilol 25 mg PO BID 12/24/18 Hydralazine HCl 100 mg PO TID 12/24/18 Nifedipine ER [Procardia Xl -] 60 mg PO DAILY 12/24/18 Pantoprazole Sodium [Protonix] 40 mg PO DAILY 12/24/18 Sevelamer Carbonate 800 mg PO TID 12/24/18 Tramadol HCl 50 mg PO TID 12/24/18 Zinc Oxide 20% Topical Oint 454 gm NR BID 12/24/18 Family Disease History - Family Disease History Family Disease History: Heart Disease: Father (HTN) Review of Systems - Review of Systems Constitutional: reports: No Symptoms Eyes: reports: No Symptoms Neck: reports: No Symptoms Cardiovascular: reports: No Symptoms Respiratory: reports: No Symptoms Gastrointestinal: reports: No Symptoms Genitourinary: reports: No Symptoms Musculoskeletal: reports: Back Pain Neurological: reports: No Symptoms Psychiatric: reports: Anxiety Physical Examination Vital Signs: Vital Signs Temperature 97.3 F L 01/21/19 14:47 Pulse Rate 95 H 01/21/19 14:47 Respiratory Rate 20 01/21/19 14:47 Blood Pressure 108/66 01/21/19 14:47 O2 Sat by Pulse Oximetry (%) 100 01/21/19 14:58 Constitutional: Yes: No Distress, Anxious Eyes: Yes: Conjunctiva Clear Neck: Yes: Supple Cardiovascular: Yes: Regular Rate and Rhythm Respiratory: Yes: Diminished Gastrointestinal: Yes: Soft Edema: No Wound/Incision: Yes: Excoriated Psychiatric: Yes: Alert Labs: CBC, BMP 01/21/19 15:22 01/21/19 15:20 Problem List - Problems (1) Back pain Code(s): M54.9 - DORSALGIA, UNSPECIFIED (2) ESRD needing dialysis Code(s): N18.6 - END STAGE RENAL DISEASE; Z99.2 - DEPENDENCE ON RENAL DIALYSIS (3) Bipolar 1 disorder Code(s): F31.9 - BIPOLAR DISORDER, UNSPECIFIED (4) Hypertension Code(s): I10 - ESSENTIAL (PRIMARY) HYPERTENSION (5) Anemia Code(s): D64.9 - ANEMIA, UNSPECIFIED Assessment/Plan Discussed stable renal consult for dialysis- Dont need urgently Meds reviewed Compliance stressed Pt also want to go to home and not back to [facility] Will ask psychiatric social worker supervisor to assist will follow anemia of chronic disease No evidence of bleeding stable further work as out pt as needed
--- NOTE | 2019-01-21 18:25 | PDOC ---
Documentation entered by Poonam Sandoval SCRIBE, acting as scribe for Mukund Brennan MD. Mukund Brennan MD: This documentation has been prepared by the Lori foley Nirvannie, SCRIBE, under my direction and personally reviewed by me in its entirety. I confirm that the documentation accurately reflects all work, treatment, procedures, and medical decision making performed by me. Attending Attestation - Resident Resident Name: Walter Donis - ED Attending Attestation I have performed the following: I have examined & evaluated the patient, The case was reviewed & discussed with the resident, I agree w/resident's findings & plan, Exceptions are as noted - HPI HPI: 01/21/19 16:05 The patient is a 58 year old male, with a significant past medical history of diastolic CHF, ESRD (// HD), HTN, HLD, DM2, and gout, who presents to the emergency department sacral pain. As per patient, he has a healed sacral ulcer and at his facility he receives dialysis sitting upward which worsens the pain thus, reported to the ED for dialysis while lying supine. He denies any recent fevers, chills, headache or dizziness. He denies any recent nausea, vomit, diarrhea or constipation. He denies any recent chest pain or shortness of breath. He denies any recent dysuria, frequency, urgency or hematuria. Allergies: NKDA Primary Care Physician: Dr. Shah - Physicial Exam PE: 01/21/19 16:51 GENERAL: Awake, alert, and fully oriented, in no acute distress HEAD: No signs of trauma NECK: Normal ROM. ABDOMEN: Soft, nontender. No guarding, no rebound. NEUROLOGICAL: Cranial nerves II through XII grossly intact. Normal speech. - Medical Decision Making 01/21/19 16:56 A portion of this note was documented by og services under my direction. I have reviewed the details of the note, within reason, and agree with the documentation with the following case summary and management plan written by me. Patient treated in the ED. Nursing notes are reviewed and incorporated into the medical decision-making. Vital signs reviewed. Peripheral IV access obtained by the nurse, laboratory studies are drawn and sent, reviewed and interpreted by myself. Vital Signs Temp Pulse Resp BP Pulse Ox 97.3 F L 95 H 20 108/66 100 01/21/19 14:47 01/21/19 14:47 01/21/19 14:47 01/21/19 14:47 01/21/19 14:58 58-year-old male with history of congestive heart failure, end-stage renal disease, hypertension, diabetes, hyperlipidemia, gout presents with sent in for analysis. Patient has been unable to comply with dialysis because he is unable to sit up secondary to chronic back pain. The patient states he was unable to sit during the entire dialysis center. Otherwise has no other complaints. The patient will need dialysis. However potassium is unremarkable at this time. We'll admit the patient for dialysis. Heart Score/ECG Review #1 ECG reviewed & interpreted by me at: 15:30 01/21/19 16:02 NSR 81, normal axis, no std/jeison, normal intervals, QTC 469 msec 01/21/19 16:02 No ECG findings of hyperkalemia
[2019-01-21] MEDS: HEPARIN NA (PORCINE) 5,000 UNITS/ML 1ML VIAL SQ SCH (22:23)
[2019-01-21] MEDS: ATORVASTATIN CA 40 MG TABLET (FP) PO SCH (22:23)
[2019-01-21] MEDS: hydrALAZINE HCL 50 MG TABLET (FP) PO SCH (23:06)
[2019-01-21] MEDS: CARVEDILOL 25 MG TABLET (FP) PO SCH (23:06)
[2019-01-21] MEDS: ZINC OXIDE 20% TOPICAL OINTMENT 30 GM TUBE TP SCH (23:06)
[2019-01-22] MEDS: hydrALAZINE HCL 50 MG TABLET (FP) PO SCH ×3 (06:36→21:56)
--- NOTE | 2019-01-22 09:19 | EKG ---
Test Reason : Blood Pressure : / mmHG Vent. Rate : 081 BPM Atrial Rate : 081 BPM P-R Int : 172 ms QRS Dur : 094 ms QT Int : 404 ms P-R-T Axes : 036 001 044 degrees QTc Int : 469 ms NORMAL SINUS RHYTHM POSSIBLE INFERIOR INFARCT , AGE UNDETERMINED CANNOT RULE OUT ANTERIOR INFARCT , AGE UNDETERMINED ABNORMAL ECG WHEN COMPARED WITH ECG OF 17-DEC-2018 16:28, BORDERLINE CRITERIA FOR INFERIOR INFARCT ARE NOW PRESENT Confirmed by FRANCIS CHAO, CARMINE ([id number]) on 01/22/2019 9:19:17 AM Referred By: Confirmed By:CARMINE BLANCO MD
[2019-01-22] MEDS: SEVELAMER CARBONATE 800 MG TAB (FP) PO SCH ×3 (09:40→17:33)
[2019-01-22] MEDS: CARVEDILOL 25 MG TABLET (FP) PO SCH ×2 (09:40→21:56)
[2019-01-22] MEDS: PANTOPRAZOLE 40 MG TABLET (FP) PO SCH (09:40)
[2019-01-22] MEDS: ALLOPURINOL 100 MG TABLET (FP) PO SCH (09:40)
[2019-01-22] MEDS: HEPARIN NA (PORCINE) 5,000 UNITS/ML 1ML VIAL SQ SCH ×2 (09:42→21:56)
[2019-01-22] MEDS: NIFEdipine E.R 60 MG TABLET (UD) PO SCH (09:57)
--- NOTE | 2019-01-22 12:04 | PN ---
Progress Note (short form) - Note Progress Note: pt seen/ examined mood labile refusing meds dont want dialysis either otherwise comfortable Vital Signs Temp 98.2 F 01/22/19 04:25 Pulse 94 H 01/22/19 06:36 Resp 16 01/22/19 04:25 BP 96/62 01/22/19 06:36 Pulse Ox 95 01/21/19 22:33 Intake & Output 01/21/19 01/22/19 01/22/19 23:59 11:59 23:59 Intake Total 120 Balance 120 Weight 275 lb 252 lb 3.2 oz Intake: Oral 120 Other: # Unmeasured Voids Void 1 Bowel Movement Yes Height 5 ft 9 in Body Mass Index (BMI) 40.6 Weight Measurement Method Built in [facility] Weight Measurement Method Estimated by Staff Active Medications Allopurinol (Zyloprim -) 100 mg PO DAILY [facility] Last Admin: 01/22/19 09:40 Dose: 100 mg Atorvastatin Calcium (Lipitor -) 40 mg PO HS [facility] Last Admin: 01/21/19 22:23 Dose: 40 mg Carvedilol (Coreg -) 25 mg PO BID [facility] Last Admin: 01/22/19 09:40 Dose: 25 mg Heparin Sodium (Porcine) (Heparin -) 5,000 unit SQ BID [facility] Last Admin: 01/22/19 09:42 Dose: 5,000 unit Hydralazine HCl (Apresoline -) 100 mg PO TID [facility] Last Admin: 01/22/19 06:36 Dose: Not Given Multi-Ingredient Ointment (Zinc Oxide) 1 applic TP BID [facility] Last Admin: 01/21/19 23:06 Dose: Not Given Nifedipine (Procardia Xl -) 60 mg PO DAILY [facility] Last Admin: 01/22/19 09:57 Dose: Not Given Pantoprazole Sodium (Protonix -) 40 mg PO DAILY [facility] Last Admin: 01/22/19 09:40 Dose: 40 mg Sevelamer Carbonate (Renvela -) 800 mg PO TIDCM [facility] Last Admin: 01/22/19 09:40 Dose: 800 mg Tramadol HCl (Ultram -) 50 mg PO Q8H PRN PRN Reason: PAIN LEVEL 6-10 CBC, BMP 01/21/19 15:22 01/21/19 15:20 x ray-- back-- ok Physical Examination Constitutional: Yes: No Distress,comfortable Eyes: Yes: Conjunctiva Clear Neck: Yes: Supple Cardiovascular: Yes: Regular Rate and Rhythm Respiratory: Yes: Diminished Gastrointestinal: Yes: Soft Edema: No Wound/Incision: Yes: Excoriated Psychiatric: Yes: Alert Problem List - Problems (1) Back pain Code(s): M54.9 - DORSALGIA, UNSPECIFIED (2) ESRD needing dialysis Code(s): N18.6 - END STAGE RENAL DISEASE; Z99.2 - DEPENDENCE ON RENAL DIALYSIS (3) Bipolar 1 disorder Code(s): F31.9 - BIPOLAR DISORDER, UNSPECIFIED (4) Hypertension Code(s): I10 - ESSENTIAL (PRIMARY) HYPERTENSION (5) Anemia Code(s): D64.9 - ANEMIA, UNSPECIFIED Assessment/Plan Discussed stable renal consult for dialysis- pending Meds reviewed Compliance stressed anemia of chronic disease No evidence of bleeding stable further work as out pt as needed-refusing any work up anyways . Discussed in detail -- especially need for dilaysis Pt has capacity will consult psych also for bipopar disorder will follow Problem List - Problems (1) Back pain Code(s): M54.9 - DORSALGIA, UNSPECIFIED (2) ESRD needing dialysis Code(s): N18.6 - END STAGE RENAL DISEASE; Z99.2 - DEPENDENCE ON RENAL DIALYSIS (3) Bipolar 1 disorder Code(s): F31.9 - BIPOLAR DISORDER, UNSPECIFIED (4) Hypertension Code(s): I10 - ESSENTIAL (PRIMARY) HYPERTENSION (5) Anemia Code(s): D64.9 - ANEMIA, UNSPECIFIED
[2019-01-22] MEDS: ZINC OXIDE 20% TOPICAL OINTMENT 30 GM TUBE TP SCH ×2 (12:30→22:41)
[2019-01-22] MEDS: ARIPiprazole 15 MG TABLET PO SCH (16:20)
[2019-01-22 16:51] LABS: ANION GAP 11 MMOL/L (8-16); BLOOD UREA NITROGEN 53 mg/dL (7-18); CALCIUM 8.7 mg/dL (8.5-10.1); CHLORIDE 95 mmol/L (98-107); CO2 27 mmol/L (21-32); GLUCOSE,RANDOM 124 mg/dL (74-106); POTASSIUM 4.7 mmol/L (3.5-5.1); SODIUM 132 mmol/L (136-145)
[2019-01-22 16:57] LABS: CREATININE 16.1 mg/dL (0.55-1.3)
--- NOTE | 2019-01-22 17:00 | CONSULT ---
Consult Consult Specialty:: Nephrology Reason for Consultation:: ESRD - History of Present Illness Chief Complaint: sent in for back pain History of Present Illness: Pt is a 58 year old male with pmhx of ESRD, htn, HLD, DM, and CHF who was sent in for back pain. He has been refusing HD. He does not remember the last time he went to HD. HE denies fevers or chills. He lives at [facility] however wants to go home. He had a similar presentation to [facility] a few weeks ago. - History Source History Provided By: Patient - Past Medical History Cardio/Vascular: Yes: CHF, HTN, Hyperlipdemia Pulmonary: Yes: COPD Renal/: Yes: Renal Failure, Renal Inusuff, Hemodialysis Psych: Yes: Bipolar, Schizophrenia Rheumatology: Yes: Gout Additional Medical History: obesity, non compliance - Alcohol/Substance Use Hx Alcohol Use: No - Smoking History Smoking history: Never smoked Have you smoked in the past 12 months: No Aproximately how many cigarettes per day: 0 - Social History Usual Living Arrangement: With Significant Other ADL: Support Services Occupation: disability History of Recent Travel: No Home Medications - Allergies Allergies/Adverse Reactions: Allergies Allergy/AdvReac Type Severity Reaction Status Date / Time No Known Allergies Allergy Verified 12/24/18 13:37 - Home Medications Home Medications: Ambulatory Orders Allopurinol [Zyloprim -] 100 mg PO DAILY 12/24/18 Atorvastatin Ca [Lipitor] 40 mg PO HS 12/24/18 Carvedilol 25 mg PO BID 12/24/18 Hydralazine HCl 100 mg PO TID 12/24/18 Nifedipine ER [Procardia Xl -] 60 mg PO DAILY 12/24/18 Pantoprazole Sodium [Protonix] 40 mg PO DAILY 12/24/18 Sevelamer Carbonate 800 mg PO TID 12/24/18 Tramadol HCl 50 mg PO TID 12/24/18 Zinc Oxide 20% Topical Oint 454 gm NR BID 12/24/18 Family Disease History - Family Disease History Family Disease History: Heart Disease: Father (HTN) Review of Systems - Review of Systems Constitutional: reports: No Symptoms Eyes: reports: No Symptoms HENT: reports: No Symptoms Neck: reports: No Symptoms Cardiovascular: reports: No Symptoms Respiratory: reports: No Symptoms Gastrointestinal: reports: No Symptoms Genitourinary: reports: No Symptoms Musculoskeletal: reports: Back Pain Integumentary: reports: No Symptoms Neurological: reports: No Symptoms Endocrine: reports: No Symptoms Hematology/Lymphatic: reports: No Symptoms Psychiatric: reports: No Symptoms Physical Exam Vital Signs: Vital Signs Temperature 98.2 F 01/22/19 15:06 Pulse Rate 103 H 01/22/19 15:06 Respiratory Rate 20 01/22/19 15:06 Blood Pressure 100/49 L 01/22/19 15:06 O2 Sat by Pulse Oximetry (%) 95 01/22/19 12:00 Constitutional: Yes: Calm Eyes: Yes: Conjunctiva Clear HENT: Yes: Atraumatic Neck: Yes: Supple Cardiovascular: Yes: S1, S2 Respiratory: Yes: CTA Bilaterally Gastrointestinal: Yes: Soft, Abdomen, Obese Renal/: Yes: WNL Musculoskeletal: Yes: Muscle Weakness Edema: Yes Neurological: Yes: Oriented Labs: CBC, BMP 01/21/19 15:22 01/22/19 15:30 Laboratory Tests 01/21/19 01/21/19 01/22/19 15:20 15:22 15:30 WBC 7.9 Hgb 8.1 L Sodium 132 L 132 L Potassium 4.7 Imaging - Results Chest X-ray: Report Reviewed Problem List - Problems (1) Anemia Code(s): D64.9 - ANEMIA, UNSPECIFIED (2) Back pain Code(s): M54.9 - DORSALGIA, UNSPECIFIED (3) ESRD needing dialysis Code(s): N18.6 - END STAGE RENAL DISEASE; Z99.2 - DEPENDENCE ON RENAL DIALYSIS Assessment/Plan Current Medications Generic Name Dose Route Start Last Admin Trade Name Vandana PRN Reason Stop Dose Admin Allopurinol 100 mg 01/22/19 10:00 01/22/19 09:40 Zyloprim - PO 100 mg DAILY RONALD Administration Aripiprazole 15 mg 01/22/19 13:30 01/22/19 16:20 Abilify PO 15 mg DAILY RONALD Administration Atorvastatin Calcium 40 mg 01/21/19 22:00 01/21/19 22:23 Lipitor - PO 40 mg HS RONALD Administration Carvedilol 25 mg 01/21/19 22:00 01/22/19 09:40 Coreg - PO 25 mg BID RONALD Administration Heparin Sodium (Porcine) 5,000 unit 01/21/19 22:00 01/22/19 09:42 Heparin - SQ 5,000 unit BID RONALD Administration Hydralazine HCl 100 mg 01/21/19 22:00 01/22/19 16:21 Apresoline - PO 100 mg TID RONALD Administration Multi-Ingredient Ointment 1 applic 01/21/19 22:00 01/22/19 12:30 Zinc Oxide TP 1 applic BID RONALD Administration Nifedipine 60 mg 01/22/19 10:00 01/22/19 09:57 Procardia Xl - PO Not Given DAILY RONALD Pantoprazole Sodium 40 mg 01/22/19 10:00 01/22/19 09:40 Protonix - PO 40 mg DAILY RONALD Administration Sevelamer Carbonate 800 mg 01/22/19 08:00 01/22/19 12:30 Renvela - PO 800 mg TIDCM RONALD Administration Tramadol HCl 50 mg 01/21/19 18:02 01/22/19 16:22 Ultram - PO 50 mg Q8H PRN Administration PAIN LEVEL 6-10 Impression 1. ESRD 2. CKD 3. gout 4. HTN 5. CHF 6. DM 7. hx bipolar 8. MOLLY 9. non compliance Plan - ordered repeat labs and potassium is stable - HD tomorrow if he agrees - compliance has been an issue - pt has been refusing meds - psych eval
[2019-01-22] MEDS ORDERED: PT OWN MED DRAWER 7, Y5N ONE (18:36)
[2019-01-22] MEDS: ATORVASTATIN CA 40 MG TABLET (FP) PO SCH (21:56)
[2019-01-23] MEDS: hydrALAZINE HCL 50 MG TABLET (FP) PO SCH ×3 (05:31→21:58)
[2019-01-23] MEDS ORDERED: PT OWN MED DRAWER 7, Y5N ONE (09:42)
[2019-01-23] MEDS: HEPARIN NA (PORCINE) 5,000 UNITS/ML 1ML VIAL SQ SCH ×2 (09:44→21:58)
[2019-01-23] MEDS: SEVELAMER CARBONATE 800 MG TAB (FP) PO SCH ×3 (09:44→17:47)
[2019-01-23] MEDS: PANTOPRAZOLE 40 MG TABLET (FP) PO SCH (09:44)
[2019-01-23] MEDS: CARVEDILOL 25 MG TABLET (FP) PO SCH ×2 (09:44→21:57)
[2019-01-23] MEDS: ALLOPURINOL 100 MG TABLET (FP) PO SCH (09:44)
--- NOTE | 2019-01-23 10:46 | CON.PSY ---
Psychiatry Consult Chief Complaint: 58 Year old male with a ?Schizophrenia, resident of [facility]. Patient seen for capacity, apparantly rtefusing Dailysis. patient is alert and able to communicate at this time. Symptoms: reports: Irritability - Previous Psychiatric Treatment Outpatient: None Inpatient: One prior admission - Previous Substance Abuse Treatment Outpatient: None Inpatient: None - Reason for Previous Treatment Reason for Previous Treatment: Psychotic Episode - Current Medications Current Medications: Active Medications Allopurinol (Zyloprim -) 100 mg PO DAILY [facility] Last Admin: 01/23/19 09:44 Dose: 100 mg Aripiprazole (Abilify) 15 mg PO DAILY [facility] Last Admin: 01/22/19 16:20 Dose: 15 mg Atorvastatin Calcium (Lipitor -) 40 mg PO HS [facility] Last Admin: 01/22/19 21:56 Dose: 40 mg Carvedilol (Coreg -) 25 mg PO BID [facility] Last Admin: 01/23/19 09:44 Dose: 25 mg Epoetin Shawn (Epogen -) 6,000 unit IVPUSH ONCE ONE Stop: 01/23/19 17:04 Heparin Sodium (Porcine) (Heparin -) 5,000 unit SQ BID [facility] Last Admin: 01/23/19 09:44 Dose: 5,000 unit Hydralazine HCl (Apresoline -) 100 mg PO TID [facility] Last Admin: 01/23/19 05:31 Dose: 100 mg Sodium Chloride (Normal Saline -) 250 mls @ 3,000 mls/hr IV PRN PRN PRN Reason: Hypotension during Dialysis Stop: 01/23/19 17:03 Multi-Ingredient Ointment (Zinc Oxide) 1 applic TP BID [facility] Last Admin: 01/22/19 22:41 Dose: 1 applic Nifedipine (Procardia Xl -) 60 mg PO DAILY [facility] Last Admin: 01/22/19 09:57 Dose: Not Given Pantoprazole Sodium (Protonix -) 40 mg PO DAILY [facility] Last Admin: 01/23/19 09:44 Dose: 40 mg Sevelamer Carbonate (Renvela -) 800 mg PO TIDCM [facility] Last Admin: 01/23/19 09:44 Dose: Not Given Tramadol HCl (Ultram -) 50 mg PO Q8H PRN PRN Reason: PAIN LEVEL 6-10 Last Admin: 01/22/19 16:22 Dose: 50 mg - Allergies Allergies: Allergies Allergy/AdvReac Type Severity Reaction Status Date / Time No Known Allergies Allergy Verified 12/24/18 13:37 - Current Living Status [facility]ual [facility] Arrangement: [facility] - Current Mental Status Evaluation Appearance: Well Groomed Attitude: Guarded - Affect Affect: Constrictive Appropriateness: Appropriate to Content - Mood Mood: Irritable - Speech/Language Expressive: Coherent - Psychomotor Activity Psychomotor Activity: Normal - Thought Process Thought Process: Intact - Thought Content Hallucinations: Absent Delusions: Absent - Self Perception Self Perception: No Impairment - Cognition Attention: Alert Orientation: Time Memory, Immediate Recall: Intact Memory, Short Term: 3/3 Memory, Remote with Promptin/3 - Concentration Serial Sevens Intact: No Simple Calculations Intact: Yes - Abstraction Proverb Interpretation: Intact Judgement: Minimally Impaired - Insight Insight: Intact - Impulse Control Impulse Control: Good Control - Suicidal Ideation Suicidal Ideation: No - Homicidal Ideation Homicidal Ideation: No Assessment/Plan 1) Patient has the mental capacity to make decisions at t6his time. 2) continue with Aripiprazole 15mg po od.
--- NOTE | 2019-01-23 11:19 | PN ---
Progress Note (short form) - Note Progress Note: comfortable continue to refuse dialysis psych consult noted/ appreciated and discussed As expected-- pt has capacity not in distress breathing not labored Vital Signs Temp 98.3 F 01/23/19 04:43 Pulse 100 H 01/23/19 04:43 Resp 20 01/23/19 04:43 BP 98/68 01/23/19 04:43 Pulse Ox 95 01/22/19 20:00 Intake & Output 01/22/19 01/22/19 01/23/19 11:59 23:59 11:59 Intake Total 120 250 Balance 120 250 Weight 252 lb 3.2 oz 254 lb 6 oz Intake: Oral 120 250 Other: Voiding Method Incontinent # Unmeasured Voids Void 1 1 1 Bowel Movement Yes Yes No # Bowel Movements 2 Weight Measurement Method Built in [facility] Built in [facility] Active Medications Allopurinol (Zyloprim -) 100 mg PO DAILY [facility] Last Admin: 01/23/19 09:44 Dose: 100 mg Aripiprazole (Abilify) 15 mg PO DAILY [facility] Last Admin: 01/22/19 16:20 Dose: 15 mg Atorvastatin Calcium (Lipitor -) 40 mg PO HS [facility] Last Admin: 01/22/19 21:56 Dose: 40 mg Carvedilol (Coreg -) 25 mg PO BID [facility] Last Admin: 01/23/19 09:44 Dose: 25 mg Epoetin Shawn (Epogen -) 6,000 unit IVPUSH ONCE ONE Stop: 01/23/19 17:04 Heparin Sodium (Porcine) (Heparin -) 5,000 unit SQ BID [facility] Last Admin: 01/23/19 09:44 Dose: 5,000 unit Hydralazine HCl (Apresoline -) 100 mg PO TID [facility] Last Admin: 01/23/19 05:31 Dose: 100 mg Sodium Chloride (Normal Saline -) 250 mls @ 3,000 mls/hr IV PRN PRN PRN Reason: Hypotension during Dialysis Stop: 01/23/19 17:03 Multi-Ingredient Ointment (Zinc Oxide) 1 applic TP BID [facility] Last Admin: 01/22/19 22:41 Dose: 1 applic Nifedipine (Procardia Xl -) 60 mg PO DAILY [facility] Last Admin: 01/22/19 09:57 Dose: Not Given Pantoprazole Sodium (Protonix -) 40 mg PO DAILY [facility] Last Admin: 01/23/19 09:44 Dose: 40 mg Sevelamer Carbonate (Renvela -) 800 mg PO TIDCM [facility] Last Admin: 01/23/19 09:44 Dose: Not Given Tramadol HCl (Ultram -) 50 mg PO Q8H PRN PRN Reason: PAIN LEVEL 6-10 Last Admin: 01/22/19 16:22 Dose: 50 mg CBC, BMP 01/21/19 15:22 01/22/19 15:30 Physical Examination Constitutional: Yes: No Distress,comfortable Eyes: Yes: Conjunctiva Clear Neck: Yes: Supple Cardiovascular: Yes: Regular Rate and Rhythm Respiratory: Yes: Diminished Gastrointestinal: Yes: Soft Edema: No Wound/Incision: Yes: Excoriated Psychiatric: Yes: Alert Assessment/Plan Continue to refuse treatment renal consult for dialysis- appreciated. Discussed in detail -- especially need for dilaysis Pt has capacity will follow Problem List - Problems (1) Back pain Code(s): M54.9 - DORSALGIA, UNSPECIFIED (2) ESRD needing dialysis Code(s): N18.6 - END STAGE RENAL DISEASE; Z99.2 - DEPENDENCE ON RENAL DIALYSIS (3) Bipolar 1 disorder Code(s): F31.9 - BIPOLAR DISORDER, UNSPECIFIED (4) Hypertension Code(s): I10 - ESSENTIAL (PRIMARY) HYPERTENSION (5) Anemia Code(s): D64.9 - ANEMIA, UNSPECIFIED
[2019-01-23 13:35] VITALS: BMI 37.5
[2019-01-23] MEDS: ARIPiprazole 15 MG TABLET PO SCH (13:58)
[2019-01-23] MEDS: NIFEdipine E.R 60 MG TABLET (UD) PO SCH (15:00)
--- NOTE | 2019-01-23 17:46 | PN ---
Progress Note, Physician History of Present Illness: Pt seen and examined at bedside. He is still refusing meds and he is refusing dialysis. - Current Medication List Current Medications: Active Medications Allopurinol (Zyloprim -) 100 mg PO DAILY [facility] Last Admin: 01/23/19 09:44 Dose: 100 mg Aripiprazole (Abilify) 15 mg PO DAILY [facility] Last Admin: 01/23/19 13:58 Dose: 15 mg Atorvastatin Calcium (Lipitor -) 40 mg PO HS [facility] Last Admin: 01/22/19 21:56 Dose: 40 mg Carvedilol (Coreg -) 25 mg PO BID [facility] Last Admin: 01/23/19 09:44 Dose: 25 mg Epoetin Shawn (Epogen -) 6,000 unit IVPUSH ONCE ONE Stop: 01/23/19 17:04 Heparin Sodium (Porcine) (Heparin -) 5,000 unit SQ BID [facility] Last Admin: 01/23/19 09:44 Dose: 5,000 unit Hydralazine HCl (Apresoline -) 100 mg PO TID [facility] Last Admin: 01/23/19 05:31 Dose: 100 mg Sodium Chloride (Normal Saline -) 250 mls @ 3,000 mls/hr IV PRN PRN PRN Reason: Hypotension during Dialysis Stop: 01/23/19 17:03 Multi-Ingredient Ointment (Zinc Oxide) 1 applic TP BID [facility] Last Admin: 01/22/19 22:41 Dose: 1 applic Nifedipine (Procardia Xl -) 60 mg PO DAILY [facility] Last Admin: 01/22/19 09:57 Dose: Not Given Pantoprazole Sodium (Protonix -) 40 mg PO DAILY [facility] Last Admin: 01/23/19 09:44 Dose: 40 mg Sevelamer Carbonate (Renvela -) 800 mg PO TIDCM [facility] Last Admin: 01/23/19 12:30 Dose: Not Given Tramadol HCl (Ultram -) 50 mg PO Q8H PRN PRN Reason: PAIN LEVEL 6-10 Last Admin: 01/22/19 16:22 Dose: 50 mg - Objective Vital Signs: Vital Signs Temperature 98.2 F 01/23/19 13:55 Pulse Rate 99 H 01/23/19 13:55 Respiratory Rate 20 01/23/19 13:55 Blood Pressure 106/69 01/23/19 13:55 O2 Sat by Pulse Oximetry (%) 95 05/05/19 20:00 Constitutional: Yes: Calm Eyes: Yes: Conjunctiva Clear HENT: Yes: Atraumatic Neck: Yes: Supple Cardiovascular: Yes: S1, S2 Respiratory: Yes: On Nasal O2 Gastrointestinal: Yes: Soft, Abdomen, Obese Genitourinary: Yes: WNL Musculoskeletal: Yes: WNL Edema: Yes Edema: LLE: Trace, RLE: Trace Neurological: Yes: Oriented Psychiatric: Yes: Oriented Labs: CBC, BMP 01/21/19 15:22 01/22/19 15:30 Problem List - Problems (1) Anemia Code(s): D64.9 - ANEMIA, UNSPECIFIED (2) Back pain Code(s): M54.9 - DORSALGIA, UNSPECIFIED (3) ESRD needing dialysis Code(s): N18.6 - END STAGE RENAL DISEASE; Z99.2 - DEPENDENCE ON RENAL DIALYSIS Assessment/Plan Current Medications Generic Name Dose Route Start Last Admin Trade Name Freq PRN Reason Stop Dose Admin Allopurinol 100 mg 01/22/19 10:00 01/23/19 09:44 Zyloprim - PO 100 mg DAILY [facility] Administration Aripiprazole 15 mg 01/22/19 13:30 01/23/19 13:58 Abilify PO 15 mg DAILY [facility] Administration Atorvastatin Calcium 40 mg 01/21/19 22:00 01/22/19 21:56 Lipitor - PO 40 mg HS [facility] Administration Carvedilol 25 mg 01/21/19 22:00 01/23/19 09:44 Coreg - PO 25 mg BID [facility] Administration Epoetin Shawn 6,000 unit 01/23/19 17:03 Epogen - IVPUSH 01/23/19 17:04 ONCE ONE Heparin Sodium (Porcine) 5,000 unit 01/21/19 22:00 01/23/19 09:44 Heparin - SQ 5,000 unit BID [facility] Administration Hydralazine HCl 100 mg 01/21/19 22:00 01/23/19 05:31 Apresoline - PO 100 mg TID [facility] Administration Sodium Chloride 250 mls @ 3,000 mls/hr 01/22/19 17:03 Normal Saline - IV 01/23/19 17:03 PRN PRN Hypotension during Dialysis Multi-Ingredient Ointment 1 applic 01/21/19 22:00 01/22/19 22:41 Zinc Oxide TP 1 applic BID [facility] Administration Nifedipine 60 mg 01/22/19 10:00 01/22/19 09:57 Procardia Xl - PO Not Given DAILY [facility] Pantoprazole Sodium 40 mg 01/22/19 10:00 01/23/19 09:44 Protonix - PO 40 mg DAILY [facility] Administration Sevelamer Carbonate 800 mg 01/22/19 08:00 01/23/19 12:30 Renvela - PO Not Given TIDCM [facility] Tramadol HCl 50 mg 01/21/19 18:02 01/22/19 16:22 Ultram - PO 50 mg Q8H PRN Administration PAIN LEVEL 6-10 Impression 1. ESRD 2. CKD 3. gout 4. HTN 5. CHF 6. DM 7. hx bipolar 8. MOLLY 9. non compliance Plan - pt again refusing HD - I spoke to him at length, he agreed, then he changed his mind - HD tomorrow if he agrees - compliance has been an issue - pt has been refusing meds
[2019-01-23] MEDS: ZINC OXIDE 20% TOPICAL OINTMENT 30 GM TUBE TP SCH ×2 (19:53→22:00)
[2019-01-23] MEDS: ATORVASTATIN CA 40 MG TABLET (FP) PO SCH (21:57)
[2019-01-24] MEDS: hydrALAZINE HCL 50 MG TABLET (FP) PO SCH ×3 (06:51→22:59)
[2019-01-24] MEDS: SEVELAMER CARBONATE 800 MG TAB (FP) PO SCH ×3 (08:30→17:25)
[2019-01-24] MEDS ORDERED: PT OWN MED DRAWER 7, Y5N ONE (10:15)
[2019-01-24] MEDS: PANTOPRAZOLE 40 MG TABLET (FP) PO SCH (11:07)
[2019-01-24] MEDS: ALLOPURINOL 100 MG TABLET (FP) PO SCH (11:08)
[2019-01-24] MEDS: HEPARIN NA (PORCINE) 5,000 UNITS/ML 1ML VIAL SQ SCH ×3 (11:08→22:54)
[2019-01-24] MEDS: ARIPiprazole 15 MG TABLET PO SCH (11:08)
[2019-01-24] MEDS: ZINC OXIDE 20% TOPICAL OINTMENT 30 GM TUBE TP SCH ×2 (11:08→23:03)
[2019-01-24] MEDS: NIFEdipine E.R 60 MG TABLET (UD) PO SCH (11:08)
[2019-01-24] MEDS: CARVEDILOL 25 MG TABLET (FP) PO SCH ×2 (11:09→22:55)
--- NOTE | 2019-01-24 14:14 | DS ---
Physical Examination Vital Signs: Vital Signs Temperature 98.5 F 01/24/19 14:00 Pulse Rate 91 H 01/24/19 14:00 Respiratory Rate 20 01/24/19 14:00 Blood Pressure 95/61 01/24/19 14:00 O2 Sat by Pulse Oximetry (%) 95 01/24/19 04:00 Constitutional: Yes: No Distress, Calm Cardiovascular: Yes: Regular Rate and Rhythm Respiratory: Yes: Diminished Gastrointestinal: Yes: Normal Bowel Sounds, Soft. No: Tenderness Edema: No Labs: CBC, BMP 01/21/19 15:22 01/22/19 15:30 Discharge Summary Reason For Visit: END STAGE RENAL DIALYSIS NEEDING DIALYSIS Current Active Problems Anemia (Acute) Back pain (Acute) ESRD needing dialysis (Acute) Hospital Course: pt refusing dialysis and meds was evaluated by Psychiatry and deemed to be competent Pt is refusing today he is aware that if he refuses, it may cause volume overload and -- pt still refusing dialysis and meds will dc pt to [facility] Condition: Guarded - Instructions Disposition: [facility] - Home Medications Comprehensive Discharge Medication List: Ambulatory Orders Allopurinol [Zyloprim -] 100 mg PO DAILY 12/24/18 Atorvastatin Ca [Lipitor] 40 mg PO HS 12/24/18 Carvedilol 25 mg PO BID 12/24/18 Hydralazine HCl 100 mg PO TID 12/24/18 Nifedipine ER [Procardia Xl -] 60 mg PO DAILY 12/24/18 Pantoprazole Sodium [Protonix] 40 mg PO DAILY 12/24/18 Sevelamer Carbonate 800 mg PO TID 12/24/18 Tramadol HCl 50 mg PO TID 12/24/18 Zinc Oxide 20% Topical Oint 454 gm NR BID 12/24/18
--- NOTE | 2019-01-24 17:24 | PN ---
Progress Note, Physician History of Present Illness: Pt seen and examined at bedside. He has been refusing HD along with treatment. - Current Medication List Current Medications: Active Medications Allopurinol (Zyloprim -) 100 mg PO DAILY [facility] Last Admin: 01/24/19 11:08 Dose: 100 mg Aripiprazole (Abilify) 15 mg PO DAILY [facility] Last Admin: 01/24/19 11:08 Dose: 15 mg Atorvastatin Calcium (Lipitor -) 40 mg PO HS [facility] Last Admin: 01/23/19 21:57 Dose: 40 mg Carvedilol (Coreg -) 25 mg PO BID [facility] Last Admin: 01/24/19 11:09 Dose: 25 mg Epoetin Shawn (Epogen -) 6,000 unit IVPUSH ONCE ONE Stop: 01/23/19 17:04 Heparin Sodium (Porcine) (Heparin -) 5,000 unit SQ BID [facility] Last Admin: 01/24/19 11:16 Dose: 5,000 unit Hydralazine HCl (Apresoline -) 100 mg PO TID [facility] Last Admin: 01/24/19 13:52 Dose: Not Given Sodium Chloride (Normal Saline -) 250 mls @ 3,000 mls/hr IV PRN PRN PRN Reason: Hypotension during Dialysis Stop: 01/23/19 17:03 Multi-Ingredient Ointment (Zinc Oxide) 1 applic TP BID [facility] Last Admin: 01/24/19 11:08 Dose: Not Given Nifedipine (Procardia Xl -) 60 mg PO DAILY [facility] Last Admin: 01/24/19 11:08 Dose: Not Given Pantoprazole Sodium (Protonix -) 40 mg PO DAILY [facility] Last Admin: 01/24/19 11:07 Dose: 40 mg Sevelamer Carbonate (Renvela -) 800 mg PO TIDCM [facility] Last Admin: 01/24/19 11:09 Dose: Not Given Tramadol HCl (Ultram -) 50 mg PO Q8H PRN PRN Reason: PAIN LEVEL 6-10 Last Admin: 01/22/19 16:22 Dose: 50 mg - Objective Vital Signs: Vital Signs Temperature 98.5 F 01/24/19 14:00 Pulse Rate 91 H 01/24/19 14:00 Respiratory Rate 20 01/24/19 14:00 Blood Pressure 95/61 01/24/19 14:00 O2 Sat by Pulse Oximetry (%) 95 01/24/19 04:00 Constitutional: Yes: Calm Eyes: Yes: Conjunctiva Clear HENT: Yes: Atraumatic Cardiovascular: Yes: S1, S2 Respiratory: Yes: CTA Bilaterally, On Nasal O2 Gastrointestinal: Yes: Soft, Abdomen, Obese Genitourinary: Yes: WNL Edema: Yes Edema: LLE: 1+, RLE: 1+ Neurological: Yes: Oriented Psychiatric: Yes: Oriented Labs: CBC, BMP 01/21/19 15:22 01/22/19 15:30 Problem List - Problems (1) Anemia Code(s): D64.9 - ANEMIA, UNSPECIFIED (2) Back pain Code(s): M54.9 - DORSALGIA, UNSPECIFIED (3) ESRD needing dialysis Code(s): N18.6 - END STAGE RENAL DISEASE; Z99.2 - DEPENDENCE ON RENAL DIALYSIS Assessment/Plan Current Medications Generic Name Dose Route Start Last Admin Trade Name Freq PRN Reason Stop Dose Admin Allopurinol 100 mg 01/22/19 10:00 01/23/19 09:44 Zyloprim - PO 100 mg DAILY [facility] Administration Aripiprazole 15 mg 01/22/19 13:30 01/23/19 13:58 Abilify PO 15 mg DAILY [facility] Administration Atorvastatin Calcium 40 mg 01/21/19 22:00 01/22/19 21:56 Lipitor - PO 40 mg HS [facility] Administration Carvedilol 25 mg 01/21/19 22:00 01/23/19 09:44 Coreg - PO 25 mg BID [facility] Administration Epoetin Shawn 6,000 unit 01/23/19 17:03 Epogen - IVPUSH 01/23/19 17:04 ONCE ONE Heparin Sodium (Porcine) 5,000 unit 01/21/19 22:00 01/23/19 09:44 Heparin - SQ 5,000 unit BID [facility] Administration Hydralazine HCl 100 mg 01/21/19 22:00 01/23/19 05:31 Apresoline - PO 100 mg TID [facility] Administration Sodium Chloride 250 mls @ 3,000 mls/hr 01/22/19 17:03 Normal Saline - IV 01/23/19 17:03 PRN PRN Hypotension during Dialysis Multi-Ingredient Ointment 1 applic 01/21/19 22:00 01/22/19 22:41 Zinc Oxide TP 1 applic BID [facility] Administration Nifedipine 60 mg 01/22/19 10:00 01/22/19 09:57 Procardia Xl - PO Not Given DAILY [facility] Pantoprazole Sodium 40 mg 01/22/19 10:00 01/23/19 09:44 Protonix - PO 40 mg DAILY [facility] Administration Sevelamer Carbonate 800 mg 01/22/19 08:00 01/23/19 12:30 Renvela - PO Not Given TIDCM [facility] Tramadol HCl 50 mg 01/21/19 18:02 01/22/19 16:22 Ultram - PO 50 mg Q8H PRN Administration PAIN LEVEL 6-10 Impression 1. ESRD 2. CKD 3. gout 4. HTN 5. CHF 6. DM 7. hx bipolar 8. MOLLY 9. non compliance Plan - HD today if he agrees - he has been very temperamental - compliance has been an issue - pt has been refusing meds
[2019-01-24] MEDS ORDERED: SODIUM CHLORIDE 250 ML IV PRN (19:06)
[2019-01-24] MEDS ORDERED: EPOETIN ALFA 3,000 UNIT/1 ML ML IVPUSH ONE (19:15)
[2019-01-24 19:39] LABS: HEMATOCRIT 23.2 % (35.4-49); HEMOGLOBIN 7.3 GM/dL (11.7-16.9); MCH 25.1 pg (25.7-33.7); MCHC 31.6 g/dl (32.0-35.9); MEAN CELL VOLUME 79.4 fl (80-96); MEAN PLT VOLUME 8.3 fl (7.5-11.1); PLATELET COUNT 268 K/MM3 (134-434); RBC 2.92 M/mm3 (4.00-5.60); WHITE BLOOD COUNT 10.4 K/mm3 (4.0-10.0)
[2019-01-24 20:12] LABS: ANION GAP 12 MMOL/L (8-16); BLOOD UREA NITROGEN 71 mg/dL (7-18); CALCIUM 8.6 mg/dL (8.5-10.1); CHLORIDE 95 mmol/L (98-107); CO2 28 mmol/L (21-32); GLUCOSE,RANDOM 122 mg/dL (74-106); POTASSIUM 4.9 mmol/L (3.5-5.1); SODIUM 134 mmol/L (136-145)
[2019-01-24 20:15] LABS: CREATININE 19.8 mg/dL (0.55-1.3)
[2019-01-24] MEDS: ATORVASTATIN CA 40 MG TABLET (FP) PO SCH (22:55)
[2019-01-25] MEDS: hydrALAZINE HCL 50 MG TABLET (FP) PO SCH ×2 (06:27→13:33)
[2019-01-25] MEDS ORDERED: PT OWN MED DRAWER 7, Y5N ONE (09:28)
[2019-01-25] MEDS: SEVELAMER CARBONATE 800 MG TAB (FP) PO SCH ×2 (09:31→12:30)
[2019-01-25] MEDS: ALLOPURINOL 100 MG TABLET (FP) PO SCH (09:31)
[2019-01-25] MEDS: HEPARIN NA (PORCINE) 5,000 UNITS/ML 1ML VIAL SQ SCH (09:31)
[2019-01-25] MEDS: PANTOPRAZOLE 40 MG TABLET (FP) PO SCH (09:31)
[2019-01-25] MEDS: CARVEDILOL 25 MG TABLET (FP) PO SCH (09:31)
[2019-01-25] MEDS: ARIPiprazole 15 MG TABLET PO SCH (09:32)
[2019-01-25] MEDS: NIFEdipine E.R 60 MG TABLET (UD) PO SCH (09:32)
[2019-01-25 11:27] VITALS: BP 103/72; PULSE 105; TEMP 98.1
[2019-01-25] MEDS: ZINC OXIDE 20% TOPICAL OINTMENT 30 GM TUBE TP SCH (13:34)
--- NOTE | 2019-01-25 13:41 | PN ---
Progress Note, Physician History of Present Illness: Pt seen and examined at bedside. He tolerated HD last night. - Objective Vital Signs: Vital Signs Temperature 98.1 F 01/25/19 10:00 Pulse Rate 105 H 01/25/19 10:00 Respiratory Rate 20 01/25/19 10:00 Blood Pressure 103/72 01/25/19 10:00 O2 Sat by Pulse Oximetry (%) 95 01/25/19 04:00 Constitutional: Yes: Calm Eyes: Yes: Conjunctiva Clear HENT: Yes: Atraumatic Neck: Yes: Supple Cardiovascular: Yes: S1, S2 Respiratory: Yes: CTA Bilaterally Gastrointestinal: Yes: Soft Genitourinary: Yes: WNL Musculoskeletal: Yes: WNL Edema: No Neurological: Yes: Oriented Psychiatric: Yes: Oriented Labs: CBC, BMP 01/24/19 18:50 01/24/19 18:50 Problem List - Problems (1) Anemia Code(s): D64.9 - ANEMIA, UNSPECIFIED (2) Back pain Code(s): M54.9 - DORSALGIA, UNSPECIFIED (3) ESRD needing dialysis Code(s): N18.6 - END STAGE RENAL DISEASE; Z99.2 - DEPENDENCE ON RENAL DIALYSIS Assessment/Plan Impression 1. ESRD 2. CKD 3. gout 4. HTN 5. CHF 6. DM 7. hx bipolar 8. MOLLY 9. non compliance Plan - pt tolerated HD last night - discussed compliance with HD - he says he will dialyze in [facility] - compliance has been an issue
[2019-01-26 03:10] LABS: HBSAG SCREEN Negative (Negative); HEP B CORE AB, TOT Negative (Negative)
== END 2019-01-25 13:35 ==
LOC: JER 14:37 → JERBED 16:44 → J6S 22:01
PROVIDERS: ADMIT Internal Medicine; ATTEND Internal Medicine
PROC: 3E033GC Introduction of Other Therapeutic Substance into Peripheral Vein, Percutaneous Approach (ICD-10-PCS; principal; 2019-01-21)
PROC: 3E013GC Introduction of Other Therapeutic Substance into Subcutaneous Tissue, Percutaneous Approach (ICD-10-PCS; 2019-01-21)
DX: E11.22 Type 2 diabetes mellitus with diabetic chronic kidney disease (principal); I13.2 Hypertensive heart and chronic kidney disease with heart failure and with stage 5 chronic kidney disease, or end stage renal disease; I50.9 Heart failure, unspecified; N18.6 End stage renal disease; Z99.2 Dependence on renal dialysis; Z91.15 Patient's noncompliance with renal dialysis; E78.5 Hyperlipidemia, unspecified; M10.9 Gout, unspecified; F31.9 Bipolar disorder, unspecified; D64.9 Anemia, unspecified; M54.9 Dorsalgia, unspecified; G47.33 Obstructive sleep apnea (adult) (pediatric)
CPT/HCPCS: 36415; 71045-TC-FY; 72100-TC-FY; 80048; 80053; 82550; 82962; 84484; 85025; 85027; 86704; 86706; 86708; 86803; 87340; 93005; 93010; 99284-25; G0378; J0885; J1644

== ENCOUNTER 2019-02-06 17:48 | Inpatient (IN) | payer OTHER ==
--- NOTE | 2019-02-06 19:25 | PDOC ---
History of Present Illness - General Chief Complaint: Revisit, Lab Variance Stated Complaint: REFUSING DYALISIS - History of Present Illness Initial Comments: The pt is a 58M w/ a history of ESRD on iHD (MWF), R buttock wound, schizoaffective d/o, schizophrenia, HTN, HLD, and gout who presents for evaluation s/p missing HD x2, last 01/31/19 which was 1.5 hrs short. Pt reports that his sacral wound prevents him from laying flat and that because of this he has been unable to participate in iHD. Today he reports feeling general malaise but denies any other complaints besides sacral wound pain. Denies fevers/chills, vision changes, chest pain, trouble breathing, abdominal pain, or changes in sensation 02/06/19 18:53 Past History - Past Medical History Allergies/Adverse Reactions: Allergies Allergy/AdvReac Type Severity Reaction Status Date / Time No Known Allergies Allergy Verified 02/06/19 18:28 Home Medications: Ambulatory Orders Allopurinol [Zyloprim -] 100 mg PO DAILY 12/24/18 Atorvastatin Ca [Lipitor] 40 mg PO HS 12/24/18 Carvedilol 25 mg PO BID 12/24/18 Hydralazine HCl 100 mg PO TID 12/24/18 Nifedipine ER [Procardia XL -] 60 mg PO DAILY 12/24/18 Pantoprazole Sodium [Protonix] 40 mg PO DAILY 12/24/18 Sevelamer Carbonate 800 mg PO TID 12/24/18 Tramadol HCl 50 mg PO TID 12/24/18 Anemia: No Cardiac Disorders: Yes (chf) COPD: No CHF: Yes Diabetes: Yes (borderline) Disorders: Yes (ESRD) HTN: Yes Hypercholesterolemia: Yes Psychiatric Problems: Yes (bipolar) - Immunization History Td Vaccination: Yes TDAP Vaccination: Yes Immunization Up to Date: Yes - Suicide/Smoking/Psychosocial Hx Smoking History: Never smoked Have you smoked in the past 12 months: No Number of Cigarettes Smoked Daily: 0 Information on smoking cessation initiated: No Hx Alcohol Use: No Drug/Substance Use Hx: No Substance Use Type: None Hx Substance Use Treatment: No Review of Systems - Review of Systems Able to Perform ROS?: Yes Comments:: GENERAL/CONSTITUTIONAL: No fever or chills HEAD, EYES, EARS, NOSE AND THROAT: No change in vision. No ear pain or discharge. No sore throat CARDIOVASCULAR: No chest pain or shortness of breath RESPIRATORY: Denies cough, hemoptysis GASTROINTESTINAL: No nausea, vomiting, diarrhea or constipation MUSCULOSKELETAL: No joint or muscle swelling or pain. No neck or back pain SKIN: +sacral wound NEUROLOGIC: No headache, vertigo, loss of consciousness, or change in strength/ sensation ENDOCRINE: No increased thirst. No abnormal weight change HEMATOLOGIC/LYMPHATIC: +hx of DVT (no reported AC per [place] paperwork) ALLERGIC/IMMUNOLOGIC: No hives or skin allergy 02/06/19 18:57 Is the patient limited Russian proficient: No *Physical Exam - Vital Signs Last Vital Signs Temp Pulse Resp BP Pulse Ox 97.3 F L 94 H 16 100/70 100 02/06/19 17:48 02/06/19 17:48 02/06/19 17:48 02/06/19 17:48 02/06/19 17:48 - Physical Exam Comments: GENERAL: Awake, alert, and oriented to person/place/time, in no acute distress HEAD: No signs of trauma, normocephalic, atraumatic EYES: PERRLA, EOMI, sclera anicteric, conjunctiva clear ENT: Hearing grossly normal, nares patent, oropharynx clear without exudates. No uvular deviation LUNGS: No distress, speaks full sentences, clear to auscultation bilaterally HEART: Regular rate and rhythm, normal S1 and S2, no murmurs appreciated, peripheral pulses normal and equal bilaterally CHEST: R HD catheter in place, C/D/I, w/o surrounding erythema ABDOMEN: Soft, nontender, normoactive bowel sounds. No guarding, no rebound EXTREMITIES: Normal inspection, Normal range of motion, no edema. No clubbing or cyanosis NEUROLOGICAL: Cranial nerves II through XII grossly intact. Normal speech, normal gait, no focal sensorimotor deficits SKIN: Sacral wound w/o purulence noted, otherwise skin warm/dry 02/06/19 19:25 ED Treatment Course - LABORATORY CBC & Chemistry Diagram: 02/06/19 19:20 02/07/19 04:00 - RADIOLOGY Radiology Studies Ordered: Category Date Time Status CHEST X-RAY PORTABLE* [RAD] Stat Radiology 02/06/19 18:35 Ordered Medical Decision Making - Medical Decision Making The pt is a 58M w/ a history of ESRD on iHD (MWF), HTN, schizophrenia who presents for evaluation from [facility] s/p missing HD today, Wednesday, and his session last Wednesday being 1.5 hours short. NH reports pt refusal of interventions. Pt reports he will allow us to dialyze him. ED Course Labs sent ECG CXR Need for HD discussed w/ patient, patient agrees to participate in HD ECG w/ narrow complexes, NSR; HR 95 Plan for admission for HD 02/06/19 19:56 Case discussed w/ Dr. Raphael, plan for HD in AM Hyperkalemia -Will treat medically at this time w/ glucose, insulin, bicarb, lasix, and lokelma 02/06/19 23:33 Mild leukocytosis w/o fever or tachycardia Chronic anemia, Hgb 7.9, near baseline Will place consult w/ Psych for re-evaluation given repeated episodes of declining interventions including HD as well as other medications at times previously. Discussed need for HD w/ patient who verbalized understanding of need of HD and that he will allow us to do so. 02/06/19 23:42 *DC/Admit/Observation/Transfer Diagnosis at time of Disposition: ESRD needing dialysis, Hyperkalemia Hypertension Qualifiers: Hypertension type: unspecified Qualified Code(s): I10 - Essential (primary) hypertension Type 2 diabetes mellitus Qualifiers: Diabetes mellitus penitentiary insulin use: unspecified terminal superintendent insulin use status Diabetes mellitus complication status: with unspecified complications Qualified Code(s): E11.8 - Type 2 diabetes mellitus with unspecified complications - Discharge Dispostion Condition at time of disposition: Fair Decision to Admit order: Yes - Referrals - Patient Instructions - Post Discharge Activity
[2019-02-06 19:50] LABS: BASO % 0.7 % (0-2.0); HEMATOCRIT 25.5 % (35.4-49); HEMOGLOBIN 7.9 GM/dL (11.7-16.9); MCH 24.9 pg (25.7-33.7); MCHC 31.2 g/dl (32.0-35.9); MEAN CELL VOLUME 79.9 fl (80-96); MEAN PLT VOLUME 8.7 fl (7.5-11.1); NEUT % 80.3 % (42.8-82.8); PLATELET COUNT 525 K/MM3 (134-434); RBC 3.19 M/mm3 (4.00-5.60); RDW 20.8 % (11.9-15.9); WHITE BLOOD COUNT 12.5 K/mm3 (4.0-10.0)
[2019-02-06] MEDS ORDERED: ACETAMINOPHEN 1000 MG/100 ML VIAL (NON FORMULARY) IVPB ONE (22:08)
[2019-02-06] MEDS ORDERED: ONDANSETRON 4 MG/2 ML VIAL IVPUSH ONE (22:08)
[2019-02-06 22:42] LABS: ANISOCYTOSIS 2+
[2019-02-06 23:13] LABS: ALBUMIN 2.3 g/dl (3.4-5.0); BILIRUBIN,TOTAL 0.4 mg/dL (0.2-1); CALCIUM 9.4 mg/dL (8.5-10.1); TOT PROT 8.2 g/dl (6.4-8.2)
[2019-02-06 23:20] LABS: CREATININE 21.7 mg/dL (0.55-1.3); POTASSIUM 6.5 mmol/L (3.5-5.1)
[2019-02-06] MEDS ORDERED: DEXTROSE 50%-WATER - 25 GM/50 ML VIAL IVPUSH ONE (23:37)
[2019-02-06] MEDS ORDERED: FUROSEMIDE 40 MG/4 ML INJECTABLE VIAL IVPUSH ONE (23:38)
[2019-02-06] MEDS ORDERED: INSULIN REGULAR HUMAN 100 UNITS/ML *VIAL SQ ONE (23:38)
[2019-02-06] MEDS ORDERED: SODIUM POLYSTYRENE SULFONATE 15 GM/60 ML BOTTLE PO ONE (23:39)
--- NOTE | 2019-02-06 23:52 | PDOC ---
Documentation entered by Lorenzo Block SCRIBE, acting as scribe for Gloria Diaz DO. Gloria Diaz DO: This documentation has been prepared by the Umair foley Collisia, SCRIBE, under my direction and personally reviewed by me in its entirety. I confirm that the documentation accurately reflects all work, treatment, procedures, and medical decision making performed by me. Attending Attestation - Resident Resident Name: Zelalem Pan - ED Attending Attestation I have performed the following: I have examined & evaluated the patient, The case was reviewed & discussed with the resident, I agree w/resident's findings & plan - HPI HPI: 02/06/19 20:35 The patient is a 58 year old male with a significant past medical history of ESRD , dialysis (MWF), R buttock wound, schizoaffective d/o, schizophrenia, hypertension, hyperlipidemia and gout who presents to the emergency department from [facility] via EMS for further evaluation s/p missing dialysis treatment. The patient reports that he missed his dialysis treatment last wednesday and today secondary to a painful sacral wound. The patient states that last week wednesday he only completed half of his treatment on Wednesday. He reports some associated feeling of malaise. He denies any other symptoms. He denies any fever , chills, nausea, vomiting, diarrhea, constipation or urinary symptoms. He denies any chest pain, shortness of breath headache or dizziness. The patient denies any other complaints. - Physicial Exam PE: 02/06/19 20:37 Agree with resident exam - Critical Care Time Total Critical Care Time: 40 Critical Care Statement: The care of this patient involved high complexity decision making to prevent further life threatening deterioration of the patient 's condition and/or to evaluate & treat vital organ system(s) failure or risk of failure. 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
[2019-02-07] MEDS ORDERED: SODIUM BICARBONATE 8.4% 50 MEQ/50 ML DISP.SYRIN IVPUSH ONE (00:22)
[2019-02-07] MEDS ORDERED: DEXTROSE 50%-WATER 25 GM/50 ML DISP.SYRIN ONE ×3 (00:31→06:31)
[2019-02-07] MEDS ORDERED: FUROSEMIDE 40 MG/4 ML INJECTABLE VIAL ONE (00:32)
[2019-02-07] MEDS ORDERED: INSULIN REGULAR HUMAN 100 UNITS/ML *VIAL ONE (00:34)
[2019-02-07] MEDS ORDERED: SODIUM BICARBONATE 8.4% 50 MEQ/50 ML VIAL ONE (00:34)
--- NOTE | 2019-02-07 02:19 | HP ---
CHIEF COMPLAINT: here from [facility] with malaise, refused dialysis 2 times this past week because verbalized cannot sit due to a buttock wound PCP:Dr. Shah Distribution Driver: Dr. Raphael HISTORY OF PRESENT ILLNESS: Mr. Pena is a 58 year old male with a significant past medical history of ESRD on hemodialysis (M-W-F), buttock wound, schizophrenia, hypertension, hyperlipidemia and gout who presents to the emergency department from [facility] by EMS for further evaluation s/p missing dialysis treatments this past week. The patient reports that he missed his dialysis treatment last wednesday and today secondary to painful buttock wound. He reported malaise and chest pain. ER course was notable for: (1) Hyperkalemia- received insulin, dextrose,sodium bicarbonate and kayexalate (2) Leukocytosis Recent Travel:denies PAST MEDICAL HISTORY: ESRD hemodialysis Right buttock wound Schizophrenia Hpertension Hyperlipidemia Gout PAST SURGICAL HISTORY: none Social History: Smoking:unable to obtain Alcohol:unable to obtain Drugs: unable to obtain Family History:unable to obtain Allergies No Known Allergies Allergy (Verified 02/06/19 18:28) HOME MEDICATIONS: Home Medications Medication Instructions Recorded Allopurinol [Zyloprim -] 100 mg PO DAILY 12/24/18 Atorvastatin Ca [Lipitor] 40 mg PO HS 12/24/18 Carvedilol 25 mg PO BID 12/24/18 Hydralazine HCl 100 mg PO TID 12/24/18 Nifedipine ER [Procardia XL -] 60 mg PO DAILY 12/24/18 Pantoprazole Sodium [Protonix] 40 mg PO DAILY 12/24/18 Sevelamer Carbonate 800 mg PO TID 12/24/18 Tramadol HCl 50 mg PO TID 12/24/18 REVIEW OF SYSTEMS CONSTITUTIONAL: Absent: fever, chills, diaphoresis, generalized weakness, malaise, loss of appetite, weight change HEENT: Absent: rhinorrhea, nasal congestion, throat pain, throat swelling, difficulty swallowing, mouth swelling, ear pain, eye pain, visual changes CARDIOVASCULAR: Absent: chest pain, syncope, palpitations, irregular heart rate, lightheadedness , peripheral edema RESPIRATORY: Absent: cough, shortness of breath, dyspnea with exertion, orthopnea, wheezing, stridor, hemoptysis GASTROINTESTINAL: Absent: abdominal pain, abdominal distension, nausea, vomiting, diarrhea, constipation, melena, hematochezia GENITOURINARY: Absent: dysuria, frequency, urgency, hesitancy, hematuria, flank pain, genital pain MUSCULOSKELETAL: Absent: myalgia, arthralgia, joint swelling, back pain, neck pain SKIN: Absent: rash, itching, pallor, buttock wound with pain HEMATOLOGIC/IMMUNOLOGIC: Absent: easy bleeding, easy bruising, lymphadenopathy, frequent infections ENDOCRINE: Absent: unexplained weight gain, unexplained weight loss, heat intolerance, cold intolerance NEUROLOGIC: Absent: headache, focal weakness or paresthesias, dizziness, unsteady gait, seizure, mental status changes, bladder or bowel incontinence PSYCHIATRIC: Absent: anxiety, depression, suicidal or homicidal ideation, hallucinations. PHYSICAL EXAMINATION Vital Signs - 24 hr 02/06/19 02/06/19 02/07/19 17:48 20:45 00:17 Temperature 97.3 F L Pulse Rate 94 H Pulse Rate [ 90 Radial] Respiratory 16 20 Rate Blood Pressure 100/70 Blood Pressure 133/89 [Left Arm] O2 Sat by Pulse 100 100 99 Oximetry (%) GENERAL: awake alert and oriented to self and place no acute distress HEAD: normal EYES: pupils equal, round and reactive to light EARS, NOSE, THROAT: ears normal, nares patent NECK: no JVD LUNGS: breath sounds clear to auscultation bilaterally no crackles no accessory muscle use HEART: regular rate and rhythm, normal S1 and S2 ABDOMEN: soft nontender not distended normoactive MUSCULOSKELETAL:limited ROM UPPER EXTREMITIES: 2+ pulses, warm, well-perfused no cyanosis LOWER EXTREMITIES: 2+ pulses, warm, well-perfused NEUROLOGICAL: no neuro focal deficits PSYCHIATRIC: flat affect SKIN: warm dry normal turgor right buttock wound Laboratory Results - last 24 hr 02/06/19 02/06/19 02/06/19 19:11 19:20 19:20 WBC 12.5 H RBC 3.19 L Hgb 7.9 L Hct 25.5 L MCV 79.9 L MCH 24.9 L MCHC 31.2 L RDW 20.8 H Plt Count 525 H D MPV 8.7 Absolute Neuts (auto) 10.0 H Neutrophils % 80.3 Lymphocytes % 8.0 D Monocytes % 9.0 Eosinophils % 2.0 Basophils % 0.7 Nucleated RBC % 0 Hypochromia 2+ Anisocytosis 2+ Microcytosis 2+ Sodium Cancelled Potassium Cancelled Chloride Cancelled Carbon Dioxide Cancelled Anion Gap Cancelled BUN Cancelled Creatinine Cancelled Est GFR (CKD-EPI)AfAm Cancelled Est GFR (CKD-EPI)NonAf Cancelled POC Glucometer 88 Random Glucose Cancelled Calcium Cancelled Phosphorus Cancelled Magnesium Cancelled Total Bilirubin Cancelled AST Cancelled ALT Cancelled Alkaline Phosphatase Cancelled Troponin I Cancelled Total Protein Cancelled Albumin Cancelled 02/06/19 22:30 WBC RBC Hgb Hct MCV MCH MCHC RDW Plt Count MPV Absolute Neuts (auto) Neutrophils % Lymphocytes % Monocytes % Eosinophils % Basophils % Nucleated RBC % Hypochromia Anisocytosis Microcytosis Sodium 135 L Potassium 6.5 H* Chloride 98 Carbon Dioxide 26 Anion Gap 12 BUN 107 H* Creatinine 21.7 H* Est GFR (CKD-EPI)AfAm 2.35 Est GFR (CKD-EPI)NonAf 2.03 POC Glucometer Random Glucose 88 Calcium 9.4 Phosphorus Magnesium Total Bilirubin 0.4 AST 14 L ALT 8 L Alkaline Phosphatase 115 Troponin I Total Protein 8.2 Albumin 2.3 L ASSESSMENT/PLAN: Mr. Pena is a 58 year old male with a significant past medical history of ESRD on hemodialysis (), buttock wound, schizophrenia, hypertension, hyperlipidemia and gout who presented from [facility] for further evaluation as he has been missing dialysis treatments this past week due to a painful buttock wound. ESRD(hemodialysis ) Patient has missed dialysis treatments this past week. He has severe hyperkalemia(K+ 6.5) and acute renal insufficiency(creatinine 21.7). He received insulin, dextrose,sodium bicarbonate and kayexalate -Admit to obs/telemetry. Monitor closely for significant ectopy -Pending repeat BMP at 2am -Nephrology - Dr. Raphael consulted and plan is for dialysis in am if patient agrees to proceed Hypertension Controlled -Continue with hydralazine, nifedipine and coreg Hyperlipidemia -Continue with statin therapy Schizophrenia Patient may lack capacity in making decisions due to history of schizophrenia as has been missing dialysis treatments. -Case management has been consulted. Anemia of Chronic Disease Hgb 7.9/hct 25.5. No evidence of active bleeding -Continue to monitor closely Leukocytosis Currently afebrile. Patient has a painful sacral wound. -Consult pressure ulcer wound care team for recommendations/management, turn and reposition every 2 hr -Consult Infectious Diseases-Dr. Daxa TROTTER -renal diet, monitor electrolytes closely DVT -SCD's Visit type - Emergency Visit Emergency Visit: Yes ED Registration Date: 02/06/19 Care time: The patient presented to the Emergency Department on the above date and was hospitalized for further evaluation of their emergent condition. - New Patient This patient is new to me today: Yes Date on this admission: 02/07/19 - Critical Care Critical Care patient: No
[2019-02-07] MEDS ORDERED: DEXTROSE 50%-WATER - 25 GM/50 ML VIAL IVPUSH ONE ×2 (04:34→06:27)
[2019-02-07] MEDS ORDERED: SODIUM POLYSTYRENE SULFONATE 15 GM/60 ML BOTTLE PO ONE (04:39)
[2019-02-07] MEDS ORDERED: traMADol HCL 50 MG TABLET ONE (05:20)
[2019-02-07] MEDS ORDERED: SODIUM POLYSTYRENE SULFONATE 15 GM/60 ML BOTTLE ONE (05:20)
[2019-02-07] MEDS ORDERED: PATIENT'S OWN MEDICATION (NON-FORMULARY) (Hydralazine Hcl [Hydralazine Hcl] 100 MG) PO SCH (06:00)
[2019-02-07] MEDS: traMADol HCL 50 MG TABLET PO SCH ×3 (06:07→21:23)
[2019-02-07] MEDS: hydrALAZINE HCL 50 MG TABLET (FP) PO SCH ×3 (06:28→21:29)
[2019-02-07 07:55] LABS: ALBUMIN 2.3 g/dl (3.4-5.0)
[2019-02-07] MEDS: SEVELAMER CARBONATE 800 MG TAB (FP) PO SCH ×3 (08:20→16:59)
[2019-02-07 09:13] LABS: BILIRUBIN,TOTAL 0.4 mg/dL (0.2-1); CALCIUM 9.2 mg/dL (8.5-10.1); POTASSIUM 5.6 mmol/L (3.5-5.1)
[2019-02-07] MEDS ORDERED: SODIUM ZIRCONIUM CYCLOSILICATE (LOKELMA) 5 GM PACKET PO SCH (10:00)
[2019-02-07] MEDS ORDERED: PANTOPRAZOLE 40 MG TABLET (FP) PO SCH (10:00)
[2019-02-07] MEDS ORDERED: ALLOPURINOL 100 MG TABLET (FP) PO SCH (10:00)
[2019-02-07] MEDS ORDERED: NIFEdipine E.R 60 MG TABLET (UD) PO SCH (10:00)
[2019-02-07] MEDS ORDERED: CARVEDILOL 25 MG TABLET (FP) PO SCH (10:00)
--- NOTE | 2019-02-07 10:11 | PN ---
Progress Note (short form) - Note Progress Note: no distress refusing all interventions Vital Signs - 24 hr 02/06/19 02/06/19 02/07/19 17:48 20:45 00:17 Temperature 97.3 F L Pulse Rate 94 H Pulse Rate [ 90 Radial] Respiratory 16 20 Rate Blood Pressure 100/70 Blood Pressure 133/89 [Left Arm] O2 Sat by Pulse 100 100 100 Oximetry (%) 02/07/19 02/07/19 02/07/19 02:10 05:57 08:17 Temperature 98.0 F Pulse Rate Pulse Rate [ 70 93 H Radial] Respiratory 18 Rate Blood Pressure Blood Pressure 116/42 L 89/54 L [Left Arm] O2 Sat by Pulse 96 Oximetry (%) Current Medications Generic Name Dose Route Start Last Admin Trade Name Freq PRN Reason Stop Dose Admin Allopurinol 100 mg 02/07/19 10:00 02/07/19 10:04 Zyloprim - PO Not Given DAILY RONALD Atorvastatin Calcium 40 mg 02/07/19 22:00 Lipitor - PO HS RONALD Carvedilol 25 mg 02/07/19 10:00 02/07/19 10:04 Coreg - PO Not Given BID RONALD Hydralazine HCl 100 mg 02/07/19 06:00 02/07/19 06:28 Apresoline - PO Not Given TID [facility] Sodium Chloride 250 mls @ 3,000 mls/hr 02/07/19 10:24 Normal Saline - IV 02/08/19 10:23 PRN PRN Hypotension during Dialysis Nifedipine 60 mg 02/07/19 10:00 02/07/19 10:04 Procardia Xl - PO Not Given DAILY RONALD Pantoprazole Sodium 40 mg 02/07/19 10:00 02/07/19 10:04 Protonix - PO Not Given DAILY RONALD Sevelamer Carbonate 800 mg 02/07/19 08:00 02/07/19 08:20 Renvela - PO 800 mg TIDCM RONALD Administration Sodium Zirconium Cyclosilicate 10 gm 02/07/19 10:00 02/07/19 10:04 Lokelma PO Not Given DAILY RONALD Tramadol HCl 50 mg 02/07/19 06:00 02/07/19 06:07 Ultram - PO 50 mg TID RONALD Administration Laboratory Results - last 24 hr 02/06/19 02/06/19 02/06/19 19:11 19:20 19:20 WBC 12.5 H RBC 3.19 L Hgb 7.9 L Hct 25.5 L MCV 79.9 L MCH 24.9 L MCHC 31.2 L RDW 20.8 H Plt Count 525 H D MPV 8.7 Absolute Neuts (auto) 10.0 H Neutrophils % 80.3 Lymphocytes % 8.0 D Monocytes % 9.0 Eosinophils % 2.0 Basophils % 0.7 Nucleated RBC % 0 Hypochromia 2+ Anisocytosis 2+ Microcytosis 2+ Sodium Cancelled Potassium Cancelled Chloride Cancelled Carbon Dioxide Cancelled Anion Gap Cancelled BUN Cancelled Creatinine Cancelled Est GFR (CKD-EPI)AfAm Cancelled Est GFR (CKD-EPI)NonAf Cancelled POC Glucometer 88 Random Glucose Cancelled Calcium Cancelled Phosphorus Cancelled Magnesium Cancelled Total Bilirubin Cancelled AST Cancelled ALT Cancelled Alkaline Phosphatase Cancelled Troponin I Cancelled Total Protein Cancelled Albumin Cancelled 02/06/19 02/07/19 02/07/19 22:30 02:22 04:00 WBC RBC Hgb Hct MCV MCH MCHC RDW Plt Count MPV Absolute Neuts (auto) Neutrophils % Lymphocytes % Monocytes % Eosinophils % Basophils % Nucleated RBC % Hypochromia Anisocytosis Microcytosis Sodium 135 L 140 Potassium 6.5 H* 5.6 H Chloride 98 100 Carbon Dioxide 26 25 Anion Gap 12 15 BUN 107 H* 103 H Creatinine 21.7 H* 22.0 H* Est GFR (CKD-EPI)AfAm 2.35 2.19 Est GFR (CKD-EPI)NonAf 2.03 1.89 POC Glucometer 80 Random Glucose 88 61 L Calcium 9.4 9.2 Phosphorus Magnesium Total Bilirubin 0.4 0.4 AST 14 L 11 L ALT 8 L 10 L Alkaline Phosphatase 115 116 Troponin I Total Protein 8.2 8.0 Albumin 2.3 L 2.3 L 02/07/19 02/07/19 06:16 07:20 WBC RBC Hgb Hct MCV MCH MCHC RDW Plt Count MPV Absolute Neuts (auto) Neutrophils % Lymphocytes % Monocytes % Eosinophils % Basophils % Nucleated RBC % Hypochromia Anisocytosis Microcytosis Sodium Potassium Chloride Carbon Dioxide Anion Gap BUN Creatinine Est GFR (CKD-EPI)AfAm Est GFR (CKD-EPI)NonAf POC Glucometer 60 96 Random Glucose Calcium Phosphorus Magnesium Total Bilirubin AST ALT Alkaline Phosphatase Troponin I Total Protein Albumin S1 S2 RRR No JVD Lungs decraesed Abd- soft, NT no edema PLAN Recommend dialysis but pt is refusing here and in [place] Hyperkalemia being corrected check potassium levels in AM Palliative care eval psych eval Problem List - Problems (1) ESRD needing dialysis Code(s): N18.6 - END STAGE RENAL DISEASE; Z99.2 - DEPENDENCE ON RENAL DIALYSIS (2) Hyperkalemia Code(s): E87.5 - HYPERKALEMIA (3) Hypertension Code(s): I10 - ESSENTIAL (PRIMARY) HYPERTENSION Qualifiers: Hypertension type: unspecified Qualified Code(s): I10 - Essential (primary ) hypertension (4) Type 2 diabetes mellitus Code(s): E11.9 - TYPE 2 DIABETES MELLITUS WITHOUT COMPLICATIONS Qualifiers: Diabetes mellitus moth exterminator insulin use: unspecified correction insulin use status Diabetes mellitus complication status: with unspecified complications Qualified Code(s): E11.8 - Type 2 diabetes mellitus with unspecified complications
[2019-02-07] MEDS ORDERED: SODIUM CHLORIDE 250 ML IV PRN ×2 (10:24→18:21)
[2019-02-07] MEDS ORDERED: EPOETIN ALFA 10,000 UNIT/1 ML VIAL IVPUSH ONE (10:30)
--- NOTE | 2019-02-07 10:30 | CONSULT ---
Consult Consult Specialty:: Nephrology Reason for Consultation:: ESRD - History of Present Illness Chief Complaint: sent in from [place] for refusing HD History of Present Illness: Pt is a 58 year old male with pmhx of esrd, schizophrenia, htn, gout, non compliance and hld who was sent in from [facility] for refusing HD. He is still refusing dialysis. He says he has not complaints. He pulled off is tele leads and is refusing to take any meds. He has history of non compliance. - History Source History Provided By: Patient, Medical Record - Past Medical History Cardio/Vascular: Yes: CHF, HTN, Hyperlipdemia Pulmonary: Yes: COPD Renal/: Yes: Renal Failure, Renal Inusuff, Hemodialysis Psych: Yes: Bipolar, Schizophrenia Rheumatology: Yes: Gout Additional Medical History: obesity, non compliance - Alcohol/Substance Use Hx Alcohol Use: No - Smoking History Smoking history: Never smoked Have you smoked in the past 12 months: No Aproximately how many cigarettes per day: 0 - Social History Usual Living Arrangement: [facility] ADL: Support Services Occupation: disability History of Recent Travel: No Home Medications - Allergies Allergies/Adverse Reactions: Allergies Allergy/AdvReac Type Severity Reaction Status Date / Time No Known Allergies Allergy Verified 02/06/19 18:28 - Home Medications Home Medications: Ambulatory Orders Allopurinol [Zyloprim -] 100 mg PO DAILY 12/24/18 Atorvastatin Ca [Lipitor] 40 mg PO HS 12/24/18 Carvedilol 25 mg PO BID 12/24/18 Hydralazine HCl 100 mg PO TID 12/24/18 Nifedipine ER [Procardia XL -] 60 mg PO DAILY 12/24/18 Pantoprazole Sodium [Protonix] 40 mg PO DAILY 12/24/18 Sevelamer Carbonate 800 mg PO TID 12/24/18 Tramadol HCl 50 mg PO TID 12/24/18 Family Disease History - Family Disease History Family Disease History: Heart Disease: Father (HTN) Review of Systems - Review of Systems Constitutional: reports: No Symptoms Eyes: reports: No Symptoms HENT: reports: No Symptoms Neck: reports: No Symptoms Cardiovascular: reports: No Symptoms Respiratory: reports: No Symptoms Gastrointestinal: reports: No Symptoms Genitourinary: reports: No Symptoms Musculoskeletal: reports: No Symptoms Integumentary: reports: No Symptoms Neurological: reports: No Symptoms Endocrine: reports: No Symptoms Hematology/Lymphatic: reports: No Symptoms Psychiatric: reports: No Symptoms Physical Exam Vital Signs: Vital Signs Temperature 98.0 F 02/07/19 02:10 Pulse Rate 93 H 02/07/19 08:17 Respiratory Rate 18 02/07/19 08:17 Blood Pressure 89/54 L 02/07/19 08:17 O2 Sat by Pulse Oximetry (%) 96 02/07/19 08:17 Constitutional: Yes: Calm Eyes: Yes: Conjunctiva Clear HENT: Yes: Atraumatic Cardiovascular: Yes: S1, S2 Respiratory: Yes: CTA Bilaterally Gastrointestinal: Yes: Soft Renal/: Yes: WNL Musculoskeletal: Yes: WNL Extremities: Yes: WNL Edema: No Neurological: Yes: Oriented Psychiatric: Yes: Oriented Labs: CBC, BMP 02/06/19 19:20 02/07/19 04:00 Laboratory Tests 02/06/19 22:30 Potassium 6.5 H* Imaging - Results Chest X-ray: Report Reviewed Problem List - Problems (1) ESRD needing dialysis Code(s): N18.6 - END STAGE RENAL DISEASE; Z99.2 - DEPENDENCE ON RENAL DIALYSIS (2) Hyperkalemia Code(s): E87.5 - HYPERKALEMIA (3) Type 2 diabetes mellitus Code(s): E11.9 - TYPE 2 DIABETES MELLITUS WITHOUT COMPLICATIONS Qualifiers: Diabetes mellitus roasterman insulin use: unspecified usp insulin use status Diabetes mellitus complication status: with unspecified complications Qualified Code(s): E11.8 - Type 2 diabetes mellitus with unspecified complications Assessment/Plan Current Medications Generic Name Dose Route Start Last Admin Trade Name Freq PRN Reason Stop Dose Admin Allopurinol 100 mg 02/07/19 10:00 02/07/19 10:04 Zyloprim - PO Not Given DAILY RONALD Atorvastatin Calcium 40 mg 02/07/19 22:00 Lipitor - PO HS RONALD Carvedilol 25 mg 02/07/19 10:00 02/07/19 10:04 Coreg - PO Not Given BID RONALD Epoetin Shawn 10,000 unit 02/07/19 10:30 Procrit - IVPUSH 02/07/19 10:31 ONCE ONE Hydralazine HCl 100 mg 02/07/19 06:00 02/07/19 06:28 Apresoline - PO Not Given TID RONALD Sodium Chloride 250 mls @ 3,000 mls/hr 02/07/19 10:24 Normal Saline - IV 02/08/19 10:23 PRN PRN Hypotension during Dialysis Nifedipine 60 mg 02/07/19 10:00 02/07/19 10:04 Procardia Xl - PO Not Given DAILY RONALD Pantoprazole Sodium 40 mg 02/07/19 10:00 02/07/19 10:04 Protonix - PO Not Given DAILY RONALD Sevelamer Carbonate 800 mg 02/07/19 08:00 02/07/19 08:20 Renvela - PO 800 mg TIDCM RONALD Administration Sodium Zirconium Cyclosilicate 10 gm 02/07/19 10:00 02/07/19 10:04 Lokelma PO Not Given DAILY RONALD Tramadol HCl 50 mg 02/07/19 06:00 02/07/19 06:07 Ultram - PO 50 mg TID RONALD Administration Impression 1. ESRD 2. CKD 3. gout 4. HTN 5. CHF 6. DM 7. hx bipolar 8. MOLLY 9. non compliance Plan - pt is still refusing HD - potassium was treated medically last night - he pulled his tele leads off and is refusing all meds - explained morbidity and mortality without hd - psych eval pending - compliance has been an issue
--- NOTE | 2019-02-07 13:44 | EKG ---
Test Reason : Blood Pressure : / mmHG Vent. Rate : 095 BPM Atrial Rate : 095 BPM P-R Int : 172 ms QRS Dur : 080 ms QT Int : 362 ms P-R-T Axes : 041 013 041 degrees QTc Int : 454 ms NORMAL SINUS RHYTHM NORMAL ECG WHEN COMPARED WITH ECG OF 21-JAN-2019 15:26, BORDERLINE CRITERIA FOR INFERIOR INFARCT ARE NO LONGER PRESENT Confirmed by MD Cole Daniel ([id number]) on 02/07/2019 1:43:55 PM Referred By: Confirmed By:Walter Cole MD
--- NOTE | 2019-02-07 18:01 | PN ---
Mental Health Exam - Mental Status Exam Alert and Oriented to: Time (alert orientate dby 2. ), Place Cognitive Function: Grossly Intact Patient Appearance: Unkempt (obese, distended abdomen. ) Mood: Apathetic, Withdrawn Affect: Mood Congruent, Flat Patient Behavior: Passive, Sedated, Fatigued Speech Pattern: Tangential Voice Loudness: Moderately Soft/Quiet, Limited Variation Thought Process: Disorganized Thought Disorder: Present Hallucinations: Denies Suicidal Ideation: Current ("i feel suicidal", repeated work i asked, when asked how he point to dinner stated "i am not feeding myself". ), No Plan Homicidal Ideation: None, Denies Insight/Judgement: Poor (refusung meds ands HD. ) Sleep: Poorly Appetite: Fair Muscle strength/Tone: Mild Hypotonicity Gait/Station: Deferred (This is 58 yo male seen today in bed. He has a medically hx of HTN, DM, on HD which he is refusing . Lives in [facility]. Psych eval requested for refusal of treatments. He is co-operstibve.) Additional Comments: Client is oddly related with a history of Bipolar/ schizo- affective. Denies ah or vh. No delusion elicited. No acute agitation, passive with database report writer currently. Not in need for psychiatric inpatient, has vague suicidal ideation without a plan. please reassess as needed. He has depressive symptoms such as poor appetite, reduced sleep as adjustment result of his grave medical condition. after some time he refused further questioning from database report writer.
[2019-02-07] MEDS: ATORVASTATIN CA 40 MG TABLET (FP) PO SCH (21:23)
[2019-02-07] MEDS: SODIUM ZIRCONIUM CYCLOSILICATE (LOKELMA) 5 GM PACKET PO SCH (21:23)
[2019-02-07] MEDS: CARVEDILOL 25 MG TABLET (FP) PO SCH (21:23)
[2019-02-07] MEDS ORDERED: ATORVASTATIN CA 40 MG TABLET (FP) PO SCH (22:00)
[2019-02-08] MEDS: hydrALAZINE HCL 50 MG TABLET (FP) PO SCH ×3 (06:21→21:38)
[2019-02-08] MEDS: traMADol HCL 50 MG TABLET PO SCH ×3 (06:22→21:38)
[2019-02-08 09:04] LABS: HEMATOCRIT 25.3 % (35.4-49); HEMOGLOBIN 8.1 GM/dL (11.7-16.9); MCH 25.2 pg (25.7-33.7); MCHC 31.9 g/dl (32.0-35.9); MEAN CELL VOLUME 79.2 fl (80-96); MEAN PLT VOLUME 7.9 fl (7.5-11.1); PLATELET COUNT 331 K/MM3 (134-434); WHITE BLOOD COUNT 12.1 K/mm3 (4.0-10.0)
[2019-02-08] MEDS ORDERED: PT OWN MED DRAWER 7, Y5N ONE (09:10)
[2019-02-08 09:52] LABS: CALCIUM 9.8 mg/dL (8.5-10.1); MAGNESIUM 2.9 mg/dL (1.8-2.4); PHOSPHOROUS 6.4 mg/dL (2.5-4.9); POTASSIUM 5.9 mmol/L (3.5-5.1)
[2019-02-08 10:23] LABS: CREATININE 23.9 mg/dL (0.55-1.3)
[2019-02-08] MEDS: NIFEdipine E.R 60 MG TABLET (UD) PO SCH (10:38)
[2019-02-08] MEDS: SEVELAMER CARBONATE 800 MG TAB (FP) PO SCH ×3 (10:38→18:30)
[2019-02-08] MEDS: CARVEDILOL 25 MG TABLET (FP) PO SCH ×2 (10:38→21:38)
[2019-02-08] MEDS: SODIUM ZIRCONIUM CYCLOSILICATE (LOKELMA) 5 GM PACKET PO SCH (10:38)
[2019-02-08] MEDS: PANTOPRAZOLE 40 MG TABLET (FP) PO SCH (10:38)
[2019-02-08] MEDS: ALLOPURINOL 100 MG TABLET (FP) PO SCH (10:38)
--- NOTE | 2019-02-08 11:21 | PN ---
Progress Note (short form) - Note Progress Note: no distress refusing all interventions Vital Signs - 24 hr 02/07/19 02/07/19 02/07/19 13:21 13:30 17:42 Temperature 97.5 F L Pulse Rate 98 H Respiratory 18 20 Rate Blood Pressure 111/57 L O2 Sat by Pulse 96 98 98 Oximetry (%) 02/07/19 02/07/19 02/08/19 18:00 21:31 00:56 Temperature 97.4 F L 97.5 F L Pulse Rate 106 H 117 H Respiratory 20 16 Rate Blood Pressure 105/77 98/66 O2 Sat by Pulse 97 Oximetry (%) 02/08/19 02/08/19 05:49 10:00 Temperature 98.3 F 97.7 F Pulse Rate 109 H 107 H Respiratory 16 18 Rate Blood Pressure 112/74 116/66 O2 Sat by Pulse Oximetry (%) Current Medications Generic Name Dose Route Start Last Admin Trade Name Freq PRN Reason Stop Dose Admin Allopurinol 100 mg 02/08/19 10:00 02/08/19 10:38 Zyloprim - PO Not Given DAILY [facility] Atorvastatin Calcium 40 mg 02/07/19 22:00 02/07/19 21:23 Lipitor - PO 40 mg HS RONALD Administration Carvedilol 25 mg 02/07/19 22:00 02/08/19 10:38 Coreg - PO Not Given BID RONALD Hydralazine HCl 100 mg 02/07/19 22:00 02/08/19 06:21 Apresoline - PO 100 mg TID RONALD Administration Sodium Chloride 250 mls @ 3,000 mls/hr 02/07/19 18:21 Normal Saline - IV 02/08/19 10:23 PRN PRN Hypotension during Dialysis Nifedipine 60 mg 02/08/19 10:00 02/08/19 10:38 Procardia Xl - PO Not Given DAILY RONALD Pantoprazole Sodium 40 mg 02/08/19 10:00 02/08/19 10:38 Protonix - PO Not Given DAILY RONALD Sevelamer Carbonate 800 mg 02/08/19 08:00 02/08/19 10:38 Renvela - PO Not Given TIDCM [facility] Sodium Zirconium Cyclosilicate 10 gm 02/07/19 18:15 02/08/19 10:38 Lokelma PO Not Given DAILY ORNALD Tramadol HCl 50 mg 02/07/19 22:00 02/08/19 06:22 Ultram - PO 50 mg TID RONALD Administration Laboratory Results - last 24 hr 02/07/19 02/07/19 02/07/19 16:57 18:05 21:20 WBC RBC Hgb Hct MCV MCH MCHC RDW Plt Count MPV Sodium Potassium Chloride Carbon Dioxide Anion Gap BUN Creatinine Est GFR (CKD-EPI)AfAm Est GFR (CKD-EPI)NonAf POC Glucometer 68 97 75 Random Glucose Calcium Phosphorus Magnesium 02/08/19 02/08/19 02/08/19 06:26 08:37 08:37 WBC 12.1 H RBC 3.20 L Hgb 8.1 L Hct 25.3 L MCV 79.2 L MCH 25.2 L MCHC 31.9 L RDW 20.0 H Plt Count 331 D MPV 7.9 Sodium 138 Potassium 5.9 H Chloride 97 L Carbon Dioxide 27 Anion Gap 14 BUN 113 H* Creatinine 23.9 H* Est GFR (CKD-EPI)AfAm 2.09 Est GFR (CKD-EPI)NonAf 1.81 POC Glucometer 83 Random Glucose 86 Calcium 9.8 Phosphorus 6.4 H Magnesium 2.9 H S1 S2 RRR No JVD Lungs decraesed Abd- soft, NT no edema PLAN psych eval noted-- capacity not determined pt refusing dialysis, I spoke to him and said if he does not go for dialysis , he will He [facility] hospital He admits to being depressed start antidepressants Problem List - Problems (1) ESRD needing dialysis Code(s): N18.6 - END STAGE RENAL DISEASE; Z99.2 - DEPENDENCE ON RENAL DIALYSIS (2) Hyperkalemia Code(s): E87.5 - HYPERKALEMIA (3) Hypertension Code(s): I10 - ESSENTIAL (PRIMARY) HYPERTENSION Qualifiers: Hypertension type: unspecified Qualified Code(s): I10 - Essential (primary ) hypertension (4) Type 2 diabetes mellitus Code(s): E11.9 - TYPE 2 DIABETES MELLITUS WITHOUT COMPLICATIONS Qualifiers: Diabetes mellitus intermediate insulin use: unspecified exterminator insulin use status Diabetes mellitus complication status: with unspecified complications Qualified Code(s): E11.8 - Type 2 diabetes mellitus with unspecified complications
--- NOTE | 2019-02-08 11:27 | PN ---
Progress Note, Physician History of Present Illness: Pt seen and examined at bedside. He refused all meds. He is refusing HD. - Current Medication List Current Medications: Active Medications Allopurinol (Zyloprim -) 100 mg PO DAILY [facility] Last Admin: 02/08/19 10:38 Dose: Not Given Atorvastatin Calcium (Lipitor -) 40 mg PO HS [facility] Last Admin: 02/07/19 21:23 Dose: 40 mg Carvedilol (Coreg -) 25 mg PO BID [facility] Last Admin: 02/08/19 10:38 Dose: Not Given Hydralazine HCl (Apresoline -) 100 mg PO TID [facility] Last Admin: 02/08/19 06:21 Dose: 100 mg Sodium Chloride (Normal Saline -) 250 mls @ 3,000 mls/hr IV PRN PRN PRN Reason: Hypotension during Dialysis Stop: 02/08/19 10:23 Nifedipine (Procardia Xl -) 60 mg PO DAILY [facility] Last Admin: 02/08/19 10:38 Dose: Not Given Pantoprazole Sodium (Protonix -) 40 mg PO DAILY [facility] Last Admin: 02/08/19 10:38 Dose: Not Given Sertraline HCl (Zoloft -) 50 mg PO DAILY [facility] Sevelamer Carbonate (Renvela -) 800 mg PO TIDCM [facility] Last Admin: 02/08/19 10:38 Dose: Not Given Sodium Zirconium Cyclosilicate (Lokelma) 10 gm PO DAILY [facility] Last Admin: 02/08/19 10:38 Dose: Not Given Tramadol HCl (Ultram -) 50 mg PO TID [facility] Last Admin: 02/08/19 06:22 Dose: 50 mg - Objective Vital Signs: Vital Signs Temperature 97.7 F 02/08/19 10:00 Pulse Rate 107 H 02/08/19 10:00 Respiratory Rate 18 02/08/19 10:00 Blood Pressure 116/66 02/08/19 10:00 O2 Sat by Pulse Oximetry (%) 97 02/08/19 00:56 Constitutional: Yes: Calm Eyes: Yes: Conjunctiva Clear HENT: Yes: Atraumatic Cardiovascular: Yes: S1, S2 Respiratory: Yes: CTA Bilaterally Gastrointestinal: Yes: Normal Bowel Sounds, Soft Genitourinary: Yes: WNL Musculoskeletal: Yes: WNL Edema: No Integumentary: Yes: WNL Neurological: Yes: Oriented Labs: CBC, BMP 02/08/19 08:37 02/08/19 08:37 Problem List - Problems (1) ESRD needing dialysis Code(s): N18.6 - END STAGE RENAL DISEASE; Z99.2 - DEPENDENCE ON RENAL DIALYSIS (2) Hyperkalemia Code(s): E87.5 - HYPERKALEMIA (3) Type 2 diabetes mellitus Code(s): E11.9 - TYPE 2 DIABETES MELLITUS WITHOUT COMPLICATIONS Qualifiers: Diabetes mellitus ad terminal makeup operator insulin use: unspecified ad terminal makeup operator insulin use status Diabetes mellitus complication status: with unspecified complications Qualified Code(s): E11.8 - Type 2 diabetes mellitus with unspecified complications Assessment/Plan Current Medications Generic Name Dose Route Start Last Admin Trade Name Freq PRN Reason Stop Dose Admin Allopurinol 100 mg 02/08/19 10:00 02/08/19 10:38 Zyloprim - PO Not Given DAILY [facility] Atorvastatin Calcium 40 mg 02/07/19 22:00 02/07/19 21:23 Lipitor - PO 40 mg HS [facility] Administration Carvedilol 25 mg 02/07/19 22:00 02/08/19 10:38 Coreg - PO Not Given BID [facility] Hydralazine HCl 100 mg 02/07/19 22:00 02/08/19 06:21 Apresoline - PO 100 mg TID [facility] Administration Sodium Chloride 250 mls @ 3,000 mls/hr 02/07/19 18:21 Normal Saline - IV 02/08/19 10:23 PRN PRN Hypotension during Dialysis Nifedipine 60 mg 02/08/19 10:00 02/08/19 10:38 Procardia Xl - PO Not Given DAILY [facility] Pantoprazole Sodium 40 mg 02/08/19 10:00 02/08/19 10:38 Protonix - PO Not Given DAILY [facility] Sertraline HCl 50 mg 02/08/19 11:30 Zoloft - PO DAILY [facility] Sevelamer Carbonate 800 mg 02/08/19 08:00 02/08/19 10:38 Renvela - PO Not Given TIDCM [facility] Sodium Zirconium Cyclosilicate 10 gm 02/07/19 18:15 02/08/19 10:38 Lokelma PO Not Given DAILY [facility] Tramadol HCl 50 mg 02/07/19 22:00 02/08/19 06:22 Ultram - PO 50 mg TID [facility] Administration Impression 1. ESRD 2. CKD 3. gout 4. HTN 5. CHF 6. DM 7. hx bipolar 8. MOLLY 9. non compliance Plan - pt refusing HD again today - pt refusing treatment for hyperkalemia - psych follow up - explained morbidity and mortality without hd at great length - compliance has been an issue
[2019-02-08] MEDS ORDERED: SODIUM CHLORIDE 250 ML IV PRN (11:43)
[2019-02-08] MEDS ORDERED: EPOETIN ALFA 10,000 UNIT/1 ML VIAL IVPUSH ONE (11:44)
--- NOTE | 2019-02-08 11:50 | CON.ID ---
Consult - Past Medical History Cardio/Vascular: Yes: CHF, HTN, Hyperlipdemia Pulmonary: Yes: COPD Renal/: Yes: Renal Failure, Renal Inusuff, Hemodialysis Psych: Yes: Bipolar, Schizophrenia Rheumatology: Yes: Gout Additional Medical History: obesity, non compliance - Alcohol/Substance Use Hx Alcohol Use: No - Smoking History Smoking history: Never smoked Have you smoked in the past 12 months: No Aproximately how many cigarettes per day: 0 - Social History Usual Living Arrangement: Half-Way ADL: Support Services Occupation: disability History of Recent Travel: No Home Medications - Allergies Allergies/Adverse Reactions: Allergies Allergy/AdvReac Type Severity Reaction Status Date / Time No Known Allergies Allergy Verified 02/06/19 18:28 - Home Medications Home Medications: Ambulatory Orders Allopurinol [Zyloprim -] 100 mg PO DAILY 12/24/18 Atorvastatin Ca [Lipitor] 40 mg PO HS 12/24/18 Carvedilol 25 mg PO BID 12/24/18 Hydralazine HCl 100 mg PO TID 12/24/18 Nifedipine ER [Procardia XL -] 60 mg PO DAILY 12/24/18 Pantoprazole Sodium [Protonix] 40 mg PO DAILY 12/24/18 Sevelamer Carbonate 800 mg PO TID 12/24/18 Tramadol HCl 50 mg PO TID 12/24/18 Family Disease History - Family Disease History Family Disease History: Heart Disease: Father (HTN) Physical Exam Vital Signs: Vital Signs Temperature 97.7 F 02/08/19 10:00 Pulse Rate 107 H 02/08/19 10:00 Respiratory Rate 18 02/08/19 10:00 Blood Pressure 116/66 02/08/19 10:00 O2 Sat by Pulse Oximetry (%) 97 02/08/19 00:56 Labs: CBC, BMP 02/08/19 08:37 02/08/19 08:37
[2019-02-08] MEDS: SERTRALINE HCL 50 MG TABLET (FP) PO SCH ×2 (13:00→18:28)
[2019-02-08] MEDS: ATORVASTATIN CA 40 MG TABLET (FP) PO SCH (21:38)
[2019-02-09] MEDS: hydrALAZINE HCL 50 MG TABLET (FP) PO SCH ×3 (05:40→21:43)
[2019-02-09] MEDS: traMADol HCL 50 MG TABLET PO SCH ×3 (05:40→22:43)
[2019-02-09] MEDS: SEVELAMER CARBONATE 800 MG TAB (FP) PO SCH ×4 (08:51→18:01)
[2019-02-09] MEDS ORDERED: PT OWN MED DRAWER 7, Y5N ONE ×2 (09:28→17:54)
[2019-02-09] MEDS: PANTOPRAZOLE 40 MG TABLET (FP) PO SCH (10:47)
[2019-02-09] MEDS: NIFEdipine E.R 60 MG TABLET (UD) PO SCH (10:47)
[2019-02-09] MEDS: SERTRALINE HCL 50 MG TABLET (FP) PO SCH (10:47)
[2019-02-09] MEDS: CARVEDILOL 25 MG TABLET (FP) PO SCH ×2 (10:47→21:43)
[2019-02-09] MEDS: SODIUM ZIRCONIUM CYCLOSILICATE (LOKELMA) 5 GM PACKET PO SCH (10:47)
[2019-02-09] MEDS: ALLOPURINOL 100 MG TABLET (FP) PO SCH (10:47)
--- NOTE | 2019-02-09 11:24 | PN ---
Progress Note (short form) - Note Progress Note: no distress had dialysis yesterday but stopped early -- pt wanted to stop refused meds today appears depressed Vital Signs - 24 hr 02/08/19 02/08/19 02/08/19 12:10 12:20 12:50 Temperature 98.4 F Pulse Rate 110 H 106 H 110 H Respiratory 18 18 18 Rate Blood Pressure 90/70 98/74 96/67 O2 Sat by Pulse Oximetry (%) 02/08/19 02/08/19 02/08/19 13:20 13:50 14:20 Temperature Pulse Rate 100 H 102 H 98 H Respiratory 18 18 18 Rate Blood Pressure 87/66 L 85/60 L 90/52 L O2 Sat by Pulse Oximetry (%) 02/08/19 02/08/19 02/08/19 14:50 14:58 15:50 Temperature 98.3 F Pulse Rate 96 H 90 107 H Respiratory 18 18 20 Rate Blood Pressure 80/50 L 102/54 L 106/50 L O2 Sat by Pulse Oximetry (%) 02/08/19 02/08/19 02/08/19 18:00 21:35 22:00 Temperature 97.6 F 97.6 F Pulse Rate 112 H 116 H Respiratory 18 18 18 Rate Blood Pressure 111/69 102/73 O2 Sat by Pulse 100 Oximetry (%) 02/09/19 05:39 Temperature 98 F Pulse Rate 113 H Respiratory 18 Rate Blood Pressure 116/66 O2 Sat by Pulse Oximetry (%) Current Medications Generic Name Dose Route Start Last Admin Trade Name Freq PRN Reason Stop Dose Admin Allopurinol 100 mg 02/08/19 10:00 02/09/19 10:47 Zyloprim - PO Not Given DAILY [facility] Atorvastatin Calcium 40 mg 02/07/19 22:00 02/08/19 21:38 Lipitor - PO 40 mg HS [facility] Administration Carvedilol 25 mg 02/07/19 22:00 02/09/19 10:47 Coreg - PO Not Given BID [facility] Hydralazine HCl 100 mg 02/07/19 22:00 02/09/19 05:40 Apresoline - PO 100 mg TID [facility] Administration Sodium Chloride 250 mls @ 3,000 mls/hr 02/08/19 11:43 Normal Saline - IV 02/09/19 11:43 PRN PRN Hypotension during Dialysis Nifedipine 60 mg 02/08/19 10:00 02/09/19 10:47 Procardia Xl - PO Not Given DAILY [facility] Pantoprazole Sodium 40 mg 02/08/19 10:00 02/09/19 10:47 Protonix - PO Not Given DAILY [facility] Sertraline HCl 50 mg 02/08/19 11:30 02/09/19 10:47 Zoloft - PO Not Given DAILY [facility] Sevelamer Carbonate 800 mg 02/08/19 08:00 02/09/19 10:47 Renvela - PO Not Given TIDCM [facility] Sodium Zirconium Cyclosilicate 10 gm 02/07/19 18:15 02/09/19 10:47 Lokelma PO Not Given DAILY [facility] Tramadol HCl 50 mg 02/07/19 22:00 02/09/19 05:40 Ultram - PO 50 mg TID [facility] Administration Laboratory Results - last 24 hr 02/09/19 05:41 POC Glucometer 126 S1 S2 RRR No JVD Lungs decraesed Abd- soft, NT no edema PLAN psych eval noted-- capacity not determined--> psych follow up continue Zoloft, may add remeron at bedtime Psych follwo up for meds He admits to being depressed Problem List - Problems (1) ESRD needing dialysis Code(s): N18.6 - END STAGE RENAL DISEASE; Z99.2 - DEPENDENCE ON RENAL DIALYSIS (2) Hyperkalemia Code(s): E87.5 - HYPERKALEMIA (3) Hypertension Code(s): I10 - ESSENTIAL (PRIMARY) HYPERTENSION Qualifiers: Hypertension type: unspecified Qualified Code(s): I10 - Essential (primary ) hypertension (4) Type 2 diabetes mellitus Code(s): E11.9 - TYPE 2 DIABETES MELLITUS WITHOUT COMPLICATIONS Qualifiers: Diabetes mellitus terminal makeup operator insulin use: unspecified terminal makeup operator insulin use status Diabetes mellitus complication status: with unspecified complications Qualified Code(s): E11.8 - Type 2 diabetes mellitus with unspecified complications
--- NOTE | 2019-02-09 13:30 | PN ---
Progress Note, Physician History of Present Illness: doing well no complaints tolerated dialysis yesterday - Current Medication List Current Medications: Active Medications Allopurinol (Zyloprim -) 100 mg PO DAILY [facility] Last Admin: 02/09/19 10:47 Dose: Not Given Atorvastatin Calcium (Lipitor -) 40 mg PO HS [facility] Last Admin: 02/08/19 21:38 Dose: 40 mg Carvedilol (Coreg -) 25 mg PO BID [facility] Last Admin: 02/09/19 10:47 Dose: Not Given Hydralazine HCl (Apresoline -) 100 mg PO TID [facility] Last Admin: 02/09/19 05:40 Dose: 100 mg Sodium Chloride (Normal Saline -) 250 mls @ 3,000 mls/hr IV PRN PRN PRN Reason: Hypotension during Dialysis Stop: 02/09/19 11:43 Mirtazapine (Remeron -) 15 mg PO HS [facility] Nifedipine (Procardia Xl -) 60 mg PO DAILY [facility] Last Admin: 02/09/19 10:47 Dose: Not Given Pantoprazole Sodium (Protonix -) 40 mg PO DAILY [facility] Last Admin: 02/09/19 10:47 Dose: Not Given Sertraline HCl (Zoloft -) 50 mg PO DAILY [facility] Last Admin: 02/09/19 10:47 Dose: Not Given Sevelamer Carbonate (Renvela -) 800 mg PO TIDCM [facility] Last Admin: 02/09/19 10:47 Dose: Not Given Sodium Zirconium Cyclosilicate (Lokelma) 10 gm PO DAILY [facility] Last Admin: 02/09/19 10:47 Dose: Not Given Tramadol HCl (Ultram -) 50 mg PO TID [facility] Last Admin: 02/09/19 05:40 Dose: 50 mg - Objective Vital Signs: Vital Signs Temperature 98 F 02/09/19 05:39 Pulse Rate 113 H 02/09/19 05:39 Respiratory Rate 18 02/09/19 05:39 Blood Pressure 116/66 02/09/19 05:39 O2 Sat by Pulse Oximetry (%) 100 02/08/19 22:00 Constitutional: Yes: No Distress, Calm Cardiovascular: Yes: Regular Rate and Rhythm Respiratory: Yes: Regular, CTA Bilaterally Gastrointestinal: Yes: Soft Musculoskeletal: Yes: WNL Neurological: Yes: Alert, Oriented Psychiatric: Yes: Alert, Oriented Labs: CBC, BMP 02/08/19 08:37 02/08/19 08:37 Assessment/Plan Problem List - Problems (1) ESRD needing dialysis Code(s): N18.6 - END STAGE RENAL DISEASE; Z99.2 - DEPENDENCE ON RENAL DIALYSIS (2) Hyperkalemia Code(s): E87.5 - HYPERKALEMIA (3) Hypertension Code(s): I10 - ESSENTIAL (PRIMARY) HYPERTENSION Qualifiers: Hypertension type: unspecified Qualified Code(s): I10 - Essential (primary ) hypertension (4) Type 2 diabetes mellitus Code(s): E11.9 - TYPE 2 DIABETES MELLITUS WITHOUT COMPLICATIONS Qualifiers: Diabetes mellitus 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
--- NOTE | 2019-02-09 14:55 | PN ---
Progress Note, Physician History of Present Illness: Pt seen and examined at bedside. He is awake and appears comfortable. - Current Medication List Current Medications: Active Medications Allopurinol (Zyloprim -) 100 mg PO DAILY [facility] Last Admin: 02/09/19 10:47 Dose: Not Given Atorvastatin Calcium (Lipitor -) 40 mg PO HS [facility] Last Admin: 02/08/19 21:38 Dose: 40 mg Carvedilol (Coreg -) 25 mg PO BID [facility] Last Admin: 02/09/19 10:47 Dose: Not Given Hydralazine HCl (Apresoline -) 100 mg PO TID [facility] Last Admin: 02/09/19 05:40 Dose: 100 mg Sodium Chloride (Normal Saline -) 250 mls @ 3,000 mls/hr IV PRN PRN PRN Reason: Hypotension during Dialysis Stop: 02/09/19 11:43 Mirtazapine (Remeron -) 15 mg PO [facility] Nifedipine (Procardia Xl -) 60 mg PO DAILY [facility] Last Admin: 02/09/19 10:47 Dose: Not Given Pantoprazole Sodium (Protonix -) 40 mg PO DAILY [facility] Last Admin: 02/09/19 10:47 Dose: Not Given Sertraline HCl (Zoloft -) 50 mg PO DAILY [facility] Last Admin: 02/09/19 10:47 Dose: Not Given Sevelamer Carbonate (Renvela -) 800 mg PO TIDCM [facility] Last Admin: 02/09/19 14:14 Dose: Not Given Sodium Zirconium Cyclosilicate (Lokelma) 10 gm PO DAILY [facility] Last Admin: 02/09/19 10:47 Dose: Not Given Tramadol HCl (Ultram -) 50 mg PO TID [facility] Last Admin: 02/09/19 05:40 Dose: 50 mg - Objective Vital Signs: Vital Signs Temperature 97.7 F 02/09/19 13:54 Pulse Rate 110 H 02/09/19 13:54 Respiratory Rate 20 02/09/19 13:54 Blood Pressure 118/54 L 02/09/19 13:54 O2 Sat by Pulse Oximetry (%) 100 02/08/19 22:00 Constitutional: Yes: Calm Eyes: Yes: Conjunctiva Clear Cardiovascular: Yes: S1, S2 Respiratory: Yes: CTA Bilaterally Gastrointestinal: Yes: Soft, Abdomen, Obese Genitourinary: Yes: Incontinence Musculoskeletal: Yes: Muscle Weakness Edema: No Integumentary: Yes: WNL Neurological: Yes: Oriented Labs: CBC, BMP 02/08/19 08:37 02/08/19 08:37 Problem List - Problems (1) ESRD needing dialysis Code(s): N18.6 - END STAGE RENAL DISEASE; Z99.2 - DEPENDENCE ON RENAL DIALYSIS (2) Hyperkalemia Code(s): E87.5 - HYPERKALEMIA (3) Type 2 diabetes mellitus Code(s): E11.9 - TYPE 2 DIABETES MELLITUS WITHOUT COMPLICATIONS Qualifiers: Diabetes mellitus intermediate card tender insulin use: unspecified intermediate card tender insulin use status Diabetes mellitus complication status: with unspecified complications Qualified Code(s): E11.8 - Type 2 diabetes mellitus with unspecified complications Assessment/Plan Current Medications Generic Name Dose Route Start Last Admin Trade Name Freq PRN Reason Stop Dose Admin Allopurinol 100 mg 02/08/19 10:00 02/09/19 10:47 Zyloprim - PO Not Given DAILY [facility] Atorvastatin Calcium 40 mg 02/07/19 22:00 02/08/19 21:38 Lipitor - PO 40 mg HS [facility] Administration Carvedilol 25 mg 02/07/19 22:00 02/09/19 10:47 Coreg - PO Not Given BID [facility] Hydralazine HCl 100 mg 02/07/19 22:00 02/09/19 05:40 Apresoline - PO 100 mg TID [facility] Administration Sodium Chloride 250 mls @ 3,000 mls/hr 02/08/19 11:43 Normal Saline - IV 02/09/19 11:43 PRN PRN Hypotension during Dialysis Mirtazapine 15 mg 02/09/19 22:00 Remeron - PO HS [facility] Nifedipine 60 mg 02/08/19 10:00 02/09/19 10:47 Procardia Xl - PO Not Given DAILY [facility] Pantoprazole Sodium 40 mg 02/08/19 10:00 02/09/19 10:47 Protonix - PO Not Given DAILY [facility] Sertraline HCl 50 mg 02/08/19 11:30 02/09/19 10:47 Zoloft - PO Not Given DAILY [facility] Sevelamer Carbonate 800 mg 02/08/19 08:00 02/09/19 14:14 Renvela - PO Not Given TIDCM [facility] Sodium Zirconium Cyclosilicate 10 gm 02/07/19 18:15 02/09/19 10:47 Lokelma PO Not Given DAILY [facility] Tramadol HCl 50 mg 02/07/19 22:00 02/09/19 05:40 Ultram - PO 50 mg TID [facility] Administration Impression 1. ESRD 2. CKD 3. gout 4. HTN 5. CHF 6. DM 7. hx bipolar 8. MOLLY 9. non compliance Plan - HD in am - he signed off of hd yesterday after about 2 hours and 15 min - renal diet - still need correction HD plan - compliance has been an issue
[2019-02-09] MEDS: ATORVASTATIN CA 40 MG TABLET (FP) PO SCH (21:43)
[2019-02-09] MEDS ORDERED: MIRTAZAPINE 15 MG TABLET (FP) PO SCH (22:00)
[2019-02-10] MEDS: traMADol HCL 50 MG TABLET PO SCH ×3 (05:06→21:43)
[2019-02-10] MEDS: hydrALAZINE HCL 50 MG TABLET (FP) PO SCH ×3 (05:06→21:43)
[2019-02-10] MEDS: SODIUM ZIRCONIUM CYCLOSILICATE (LOKELMA) 5 GM PACKET PO SCH (09:44)
[2019-02-10] MEDS: SEVELAMER CARBONATE 800 MG TAB (FP) PO SCH ×3 (09:44→19:37)
[2019-02-10] MEDS: CARVEDILOL 25 MG TABLET (FP) PO SCH ×2 (09:44→21:43)
[2019-02-10] MEDS: SERTRALINE HCL 50 MG TABLET (FP) PO SCH (09:45)
[2019-02-10] MEDS: ALLOPURINOL 100 MG TABLET (FP) PO SCH (09:45)
[2019-02-10] MEDS: NIFEdipine E.R 60 MG TABLET (UD) PO SCH (09:45)
[2019-02-10] MEDS: PANTOPRAZOLE 40 MG TABLET (FP) PO SCH (09:45)
--- NOTE | 2019-02-10 10:49 | PN ---
Progress Note (short form) - Note Progress Note: Pt seen/ examined chart reviewed comfortable Vital Signs Temp 98 F 02/10/19 05:09 Pulse 96 H 02/10/19 05:09 Resp 20 02/10/19 05:09 BP 105/73 02/10/19 05:09 Pulse Ox 96 02/09/19 22:00 Intake & Output 02/09/19 02/09/19 02/10/19 11:59 23:59 11:59 Intake Total 100 400 80 Balance 100 400 80 Weight 247 lb 1.6 oz Intake: IVPB 0 0 0 Oral 100 400 80 Other: Voiding Method Diaper Diaper Bowel Movement Yes Yes Yes # Bowel Movements 1 1 1 Weight Measurement Method Patient Lift Scale Active Medications Allopurinol (Zyloprim -) 100 mg PO DAILY [facility] Last Admin: 02/10/19 09:45 Dose: 100 mg Atorvastatin Calcium (Lipitor -) 40 mg PO HS [facility] Last Admin: 02/09/19 21:43 Dose: 40 mg Carvedilol (Coreg -) 25 mg PO BID [facility] Last Admin: 02/10/19 09:44 Dose: Not Given Epoetin Shawn (Epogen -) 10,000 unit IVPUSH ONCE ONE Stop: 02/10/19 14:56 Hydralazine HCl (Apresoline -) 100 mg PO TID [facility] Last Admin: 02/10/19 05:06 Dose: 100 mg Sodium Chloride (Normal Saline -) 250 mls @ 3,000 mls/hr IV PRN PRN PRN Reason: Hypotension during Dialysis Stop: 02/09/19 11:43 Sodium Chloride (Normal Saline -) 250 mls @ 3,000 mls/hr IV PRN PRN PRN Reason: Hypotension during Dialysis Stop: 02/10/19 14:55 Mirtazapine (Remeron -) 15 mg PO [facility] Last Admin: 02/09/19 21:43 Dose: 15 mg Nifedipine (Procardia Xl -) 60 mg PO DAILY [facility] Last Admin: 02/10/19 09:45 Dose: Not Given Pantoprazole Sodium (Protonix -) 40 mg PO DAILY [facility] Last Admin: 02/10/19 09:45 Dose: 40 mg Sertraline HCl (Zoloft -) 50 mg PO DAILY [facility] Last Admin: 02/10/19 09:45 Dose: 50 mg Sevelamer Carbonate (Renvela -) 800 mg PO TIDCM [facility] Last Admin: 02/10/19 09:44 Dose: 800 mg Sodium Zirconium Cyclosilicate (Lokelma) 10 gm PO DAILY [facility] Last Admin: 02/10/19 09:44 Dose: 10 gm Tramadol HCl (Ultram -) 50 mg PO TID [facility] Last Admin: 02/10/19 05:06 Dose: 50 mg CBC, BMP 02/08/19 08:37 02/08/19 08:37 Physical S1 S2 RRR No JVD Lungs decraesed Abd- soft, NT no edema A/p dialysis today if pt cooperates psych to follow-- but pt has capacity as per my assessment Psych 01/23/19 -- CONSULT REVIEWED-- Pt determined to have capacity hold bp meds today as pressure is low will follow
--- NOTE | 2019-02-10 11:19 | CON.PSY ---
Psychiatry Consult Chief Complaint: 58byera old obese male a resident of [facility] with ahistory of ? Schizophrenia, ?Bipolar ? depressive disorder. Patient admitted for refusinmg Dialysis. Symptoms: reports: Depressed Mood, Oppositionalism - Previous Psychiatric Treatment Outpatient: Less than 6 mos ago Inpatient: None - Previous Substance Abuse Treatment Outpatient: None Inpatient: None - Reason for Previous Treatment Reason for Previous Treatment: Major Depression - Current Medications Current Medications: Active Medications Allopurinol (Zyloprim -) 100 mg PO DAILY [facility] Last Admin: 02/10/19 09:45 Dose: 100 mg Atorvastatin Calcium (Lipitor -) 40 mg PO HS [facility] Last Admin: 02/09/19 21:43 Dose: 40 mg Carvedilol (Coreg -) 25 mg PO BID [facility] Last Admin: 02/10/19 09:44 Dose: Not Given Epoetin Shawn (Epogen -) 10,000 unit IVPUSH ONCE ONE Stop: 02/10/19 14:56 Hydralazine HCl (Apresoline -) 100 mg PO TID [facility] Last Admin: 02/10/19 05:06 Dose: 100 mg Sodium Chloride (Normal Saline -) 250 mls @ 3,000 mls/hr IV PRN PRN PRN Reason: Hypotension during Dialysis Stop: 02/09/19 11:43 Sodium Chloride (Normal Saline -) 250 mls @ 3,000 mls/hr IV PRN PRN PRN Reason: Hypotension during Dialysis Stop: 02/10/19 14:55 Nifedipine (Procardia Xl -) 60 mg PO DAILY [facility] Last Admin: 02/10/19 09:45 Dose: Not Given Pantoprazole Sodium (Protonix -) 40 mg PO DAILY [facility] Last Admin: 02/10/19 09:45 Dose: 40 mg Sertraline HCl (Zoloft -) 50 mg PO DAILY [facility] Last Admin: 02/10/19 09:45 Dose: 50 mg Sevelamer Carbonate (Renvela -) 800 mg PO TIDCM [facility] Last Admin: 02/10/19 09:44 Dose: 800 mg Sodium Zirconium Cyclosilicate (Lokelma) 10 gm PO DAILY [facility] Last Admin: 02/10/19 09:44 Dose: 10 gm Tramadol HCl (Ultram -) 50 mg PO TID [facility] Last Admin: 02/10/19 05:06 Dose: 50 mg - Allergies Allergies: Allergies Allergy/AdvReac Type Severity Reaction Status Date / Time No Known Allergies Allergy Verified 02/06/19 18:28 - Current Living Status Usual Living Arrangement: [facility] - Current Mental Status Evaluation Appearance: Disheveled Attitude: Guarded - Affect Affect: Constrictive Appropriateness: Appropriate to Content - Mood Mood: Irritable - Speech/Language Expressive: Coherent - Psychomotor Activity Psychomotor Activity: Slowed - Thought Process Thought Process: Intact - Thought Content Hallucinations: Absent Delusions: Absent - Self Perception Self Perception: No Impairment - Cognition Attention: Alert Orientation: Time Memory, Immediate Recall: Intact Memory, Short Term: 2/3 Memory, Remote with Promptin/3 - Concentration Serial Sevens Intact: No Simple Calculations Intact: Yes - Abstraction Proverb Interpretation: Intact Judgement: Minimally Impaired - Insight Insight: Intact - Impulse Control Impulse Control: Good Control - Suicidal Ideation Suicidal Ideation: No - Homicidal Ideation Homicidal Ideation: No Assessment/Plan 1) agree with Zoloft. 2) d/c Remeron. 3) Patient has the capacity to make decisions at this time.
--- NOTE | 2019-02-10 12:53 | PN ---
Progress Note, Physician History of Present Illness: patient stable no new issues - Current Medication List Current Medications: Active Medications Allopurinol (Zyloprim -) 100 mg PO DAILY [facility] Last Admin: 02/10/19 09:45 Dose: 100 mg Atorvastatin Calcium (Lipitor -) 40 mg PO HS [facility] Last Admin: 02/09/19 21:43 Dose: 40 mg Carvedilol (Coreg -) 25 mg PO BID [facility] Last Admin: 02/10/19 09:44 Dose: Not Given Epoetin Shawn (Epogen -) 10,000 unit IVPUSH ONCE ONE Stop: 02/10/19 14:56 Hydralazine HCl (Apresoline -) 100 mg PO TID [facility] Last Admin: 02/10/19 05:06 Dose: 100 mg Sodium Chloride (Normal Saline -) 250 mls @ 3,000 mls/hr IV PRN PRN PRN Reason: Hypotension during Dialysis Stop: 02/09/19 11:43 Sodium Chloride (Normal Saline -) 250 mls @ 3,000 mls/hr IV PRN PRN PRN Reason: Hypotension during Dialysis Stop: 02/10/19 14:55 Nifedipine (Procardia Xl -) 60 mg PO DAILY [facility] Last Admin: 02/10/19 09:45 Dose: Not Given Pantoprazole Sodium (Protonix -) 40 mg PO DAILY [facility] Last Admin: 02/10/19 09:45 Dose: 40 mg Sertraline HCl (Zoloft -) 50 mg PO DAILY [facility] Last Admin: 02/10/19 09:45 Dose: 50 mg Sevelamer Carbonate (Renvela -) 800 mg PO TIDCM [facility] Last Admin: 02/10/19 12:34 Dose: 800 mg Sodium Zirconium Cyclosilicate (Lokelma) 10 gm PO DAILY [facility] Last Admin: 02/10/19 09:44 Dose: 10 gm Tramadol HCl (Ultram -) 50 mg PO TID [facility] Last Admin: 02/10/19 05:06 Dose: 50 mg - Objective Vital Signs: Vital Signs Temperature 98.4 F 02/10/19 10:00 Pulse Rate 102 H 02/10/19 12:44 Respiratory Rate 20 02/10/19 10:00 Blood Pressure 109/70 02/10/19 12:44 O2 Sat by Pulse Oximetry (%) 95 02/10/19 10:00 Constitutional: Yes: No Distress, Calm Cardiovascular: Yes: S1, S2 Respiratory: Yes: Regular, CTA Bilaterally Gastrointestinal: Yes: Normal Bowel Sounds, Soft Musculoskeletal: Yes: Other Extremities: Yes: WNL Wound/Incision: Yes: Other Neurological: Yes: Alert, Oriented Psychiatric: Yes: Alert, Oriented Labs: CBC, BMP 02/08/19 08:37 02/08/19 08:37 Assessment/Plan Problem List - Problems (1) ESRD needing dialysis Code(s): N18.6 - END STAGE RENAL DISEASE; Z99.2 - DEPENDENCE ON RENAL DIALYSIS (2) Hyperkalemia Code(s): E87.5 - HYPERKALEMIA (3) Hypertension Code(s): I10 - ESSENTIAL (PRIMARY) HYPERTENSION Qualifiers: Hypertension type: unspecified Qualified Code(s): I10 - Essential (primary ) hypertension (4) Type 2 diabetes mellitus Code(s): E11.9 - TYPE 2 DIABETES MELLITUS WITHOUT COMPLICATIONS Qualifiers: Diabetes mellitus sales secretary insulin use: unspecified sales secretary insulin use status Diabetes mellitus complication status: with unspecified complications Qualified Code(s): E11.8 - Type 2 diabetes mellitus with unspecified complications plan continue to monitor the patient wound care dialysis rest as per the team will monitor off of abx
--- NOTE | 2019-02-10 14:44 | PN ---
Progress Note, Physician History of Present Illness: Pt seen and examined at bedside. He agrees to go to HD today. He denies shortness of breath. - Current Medication List Current Medications: Active Medications Allopurinol (Zyloprim -) 100 mg PO DAILY [facility] Last Admin: 02/10/19 09:45 Dose: 100 mg Atorvastatin Calcium (Lipitor -) 40 mg PO HS [facility] Last Admin: 02/09/19 21:43 Dose: 40 mg Carvedilol (Coreg -) 25 mg PO BID [facility] Last Admin: 02/10/19 09:44 Dose: Not Given Epoetin Shawn (Epogen -) 10,000 unit IVPUSH ONCE ONE Stop: 02/10/19 14:56 Hydralazine HCl (Apresoline -) 100 mg PO TID [facility] Last Admin: 02/10/19 13:15 Dose: 100 mg Sodium Chloride (Normal Saline -) 250 mls @ 3,000 mls/hr IV PRN PRN PRN Reason: Hypotension during Dialysis Stop: 02/09/19 11:43 Sodium Chloride (Normal Saline -) 250 mls @ 3,000 mls/hr IV PRN PRN PRN Reason: Hypotension during Dialysis Stop: 02/10/19 14:55 Nifedipine (Procardia Xl -) 60 mg PO DAILY [facility] Last Admin: 02/10/19 09:45 Dose: Not Given Pantoprazole Sodium (Protonix -) 40 mg PO DAILY [facility] Last Admin: 02/10/19 09:45 Dose: 40 mg Sertraline HCl (Zoloft -) 50 mg PO DAILY [facility] Last Admin: 02/10/19 09:45 Dose: 50 mg Sevelamer Carbonate (Renvela -) 800 mg PO TIDCM [facility] Last Admin: 02/10/19 12:34 Dose: 800 mg Sodium Zirconium Cyclosilicate (Lokelma) 10 gm PO DAILY [facility] Last Admin: 02/10/19 09:44 Dose: 10 gm Tramadol HCl (Ultram -) 50 mg PO TID [facility] Last Admin: 02/10/19 13:14 Dose: 50 mg - Objective Vital Signs: Vital Signs Temperature 98.4 F 02/10/19 10:00 Pulse Rate 102 H 02/10/19 12:44 Respiratory Rate 20 02/10/19 10:00 Blood Pressure 109/70 02/10/19 12:44 O2 Sat by Pulse Oximetry (%) 95 05/24/19 10:00 Constitutional: Yes: Calm Eyes: Yes: Conjunctiva Clear HENT: Yes: Atraumatic Neck: Yes: Supple Cardiovascular: Yes: S1, S2 Respiratory: Yes: CTA Bilaterally Gastrointestinal: Yes: Soft, Abdomen, Obese Genitourinary: Yes: Incontinence Edema: No Integumentary: Yes: WNL Neurological: Yes: Oriented Labs: CBC, BMP 02/08/19 08:37 02/08/19 08:37 Problem List - Problems (1) ESRD needing dialysis Code(s): N18.6 - END STAGE RENAL DISEASE; Z99.2 - DEPENDENCE ON RENAL DIALYSIS (2) Hyperkalemia Code(s): E87.5 - HYPERKALEMIA (3) Type 2 diabetes mellitus Code(s): E11.9 - TYPE 2 DIABETES MELLITUS WITHOUT COMPLICATIONS Qualifiers: Diabetes mellitus senior living insulin use: unspecified terminal clerk insulin use status Diabetes mellitus complication status: with unspecified complications Qualified Code(s): E11.8 - Type 2 diabetes mellitus with unspecified complications Assessment/Plan Current Medications Generic Name Dose Route Start Last Admin Trade Name Freq PRN Reason Stop Dose Admin Allopurinol 100 mg 02/08/19 10:00 02/10/19 09:45 Zyloprim - PO 100 mg DAILY [facility] Administration Atorvastatin Calcium 40 mg 02/07/19 22:00 02/09/19 21:43 Lipitor - PO 40 mg HS [facility] Administration Carvedilol 25 mg 02/07/19 22:00 02/10/19 09:44 Coreg - PO Not Given BID [facility] Epoetin Shawn 10,000 unit 02/10/19 14:55 Epogen - IVPUSH 02/10/19 14:56 ONCE ONE Hydralazine HCl 100 mg 02/07/19 22:00 02/10/19 13:15 Apresoline - PO 100 mg TID [facility] Administration Sodium Chloride 250 mls @ 3,000 mls/hr 02/08/19 11:43 Normal Saline - IV 02/09/19 11:43 PRN PRN Hypotension during Dialysis Sodium Chloride 250 mls @ 3,000 mls/hr 02/09/19 14:55 Normal Saline - IV 02/10/19 14:55 PRN PRN Hypotension during Dialysis Nifedipine 60 mg 02/08/19 10:00 02/10/19 09:45 Procardia Xl - PO Not Given DAILY [facility] Pantoprazole Sodium 40 mg 02/08/19 10:00 02/10/19 09:45 Protonix - PO 40 mg DAILY [facility] Administration Sertraline HCl 50 mg 02/08/19 11:30 02/10/19 09:45 Zoloft - PO 50 mg DAILY [facility] Administration Sevelamer Carbonate 800 mg 02/08/19 08:00 02/10/19 12:34 Renvela - PO 800 mg TIDCM [facility] Administration Sodium Zirconium Cyclosilicate 10 gm 02/07/19 18:15 02/10/19 09:44 Lokelma PO 10 gm DAILY [facility] Administration Tramadol HCl 50 mg 02/07/19 22:00 02/10/19 13:14 Ultram - PO 50 mg TID [facility] Administration Impression 1. ESRD 2. CKD 3. gout 4. HTN 5. CHF 6. DM 7. hx bipolar 8. MOLLY 9. non compliance Plan - HD today - compliance is an issue - psych input appreciated - renal diet - still need senior living HD plan
[2019-02-10] MEDS ORDERED: SODIUM CHLORIDE 250 ML IV PRN (17:14)
[2019-02-10] MEDS ORDERED: EPOETIN ALFA 10,000 UNIT/1 ML VIAL IVPUSH ONE (17:15)
[2019-02-10 17:18] LABS: HEMATOCRIT 22.9 % (35.4-49); HEMOGLOBIN 7.2 GM/dL (11.7-16.9); MCH 25.3 pg (25.7-33.7); MCHC 31.3 g/dl (32.0-35.9); MEAN PLT VOLUME 8.2 fl (7.5-11.1); PLATELET COUNT 260 K/MM3 (134-434); RBC 2.83 M/mm3 (4.00-5.60); RDW 19.8 % (11.9-15.9); WHITE BLOOD COUNT 6.7 K/mm3 (4.0-10.0)
[2019-02-10] MEDS ORDERED: EPOETIN ALFA 2,000 UNIT/1 ML VIAL IVPUSH ONE (18:30)
[2019-02-10 18:41] LABS: CALCIUM 8.8 mg/dL (8.5-10.1)
[2019-02-10 19:00] LABS: CREATININE 11.8 mg/dL (0.55-1.3)
[2019-02-10] MEDS: ATORVASTATIN CA 40 MG TABLET (FP) PO SCH (21:41)
[2019-02-11] MEDS: hydrALAZINE HCL 50 MG TABLET (FP) PO SCH ×3 (05:11→21:43)
[2019-02-11] MEDS: traMADol HCL 50 MG TABLET PO SCH ×3 (05:13→21:44)
[2019-02-11] MEDS: SEVELAMER CARBONATE 800 MG TAB (FP) PO SCH ×3 (09:00→17:05)
[2019-02-11] MEDS ORDERED: PT OWN MED DRAWER 7, Y5N ONE (09:18)
[2019-02-11] MEDS: SERTRALINE HCL 50 MG TABLET (FP) PO SCH (10:06)
[2019-02-11] MEDS: NIFEdipine E.R 60 MG TABLET (UD) PO SCH (10:06)
[2019-02-11] MEDS: CARVEDILOL 25 MG TABLET (FP) PO SCH ×2 (10:06→21:43)
[2019-02-11] MEDS: ALLOPURINOL 100 MG TABLET (FP) PO SCH (10:06)
[2019-02-11] MEDS: PANTOPRAZOLE 40 MG TABLET (FP) PO SCH (10:06)
[2019-02-11] MEDS: SODIUM ZIRCONIUM CYCLOSILICATE (LOKELMA) 5 GM PACKET PO SCH (10:06)
--- NOTE | 2019-02-11 10:54 | PN ---
Progress Note (short form) - Note Progress Note: no distress had dialysis yesterday for 3 hours no distress Vital Signs - 24 hr 02/10/19 02/10/19 02/10/19 12:44 14:49 16:15 Temperature 98.6 F Pulse Rate 102 H 102 H 92 H Respiratory 20 18 Rate Blood Pressure 109/70 120/72 90/60 O2 Sat by Pulse Oximetry (%) 02/10/19 02/10/19 02/10/19 16:20 16:50 17:20 Temperature Pulse Rate 99 H 90 92 H Respiratory 18 18 18 Rate Blood Pressure 91/69 90/60 90/58 L O2 Sat by Pulse Oximetry (%) 02/10/19 02/10/19 02/10/19 17:50 18:20 18:50 Temperature Pulse Rate 92 H 90 99 H Respiratory 18 18 18 Rate Blood Pressure 95/70 92/52 L 97/56 L O2 Sat by Pulse Oximetry (%) 02/10/19 02/10/19 02/10/19 19:15 19:20 19:40 Temperature 98.6 F Pulse Rate 100 H 90 90 Respiratory 20 18 18 Rate Blood Pressure 112/62 92/50 L 103/69 O2 Sat by Pulse Oximetry (%) 02/10/19 02/10/19 02/11/19 21:43 22:00 05:14 Temperature 98.1 F 98.3 F Pulse Rate 101 H 109 H Respiratory 18 18 20 Rate Blood Pressure 85/57 L 103/7 L O2 Sat by Pulse 96 Oximetry (%) Current Medications Generic Name Dose Route Start Last Admin Trade Name Freq PRN Reason Stop Dose Admin Allopurinol 100 mg 02/08/19 10:00 02/11/19 10:06 Zyloprim - PO 100 mg DAILY [facility] Administration Atorvastatin Calcium 40 mg 02/07/19 22:00 02/10/19 21:41 Lipitor - PO 40 mg HS [facility] Administration Carvedilol 25 mg 02/07/19 22:00 02/11/19 10:06 Coreg - PO 25 mg BID [facility] Administration Hydralazine HCl 100 mg 02/07/19 22:00 02/11/19 05:11 Apresoline - PO 100 mg TID [facility] Administration Nifedipine 60 mg 02/08/19 10:00 02/11/19 10:06 Procardia Xl - PO 60 mg DAILY [facility] Administration Pantoprazole Sodium 40 mg 05/22/19 10:00 02/11/19 10:06 Protonix - PO 40 mg DAILY [facility] Administration Sertraline HCl 50 mg 02/08/19 11:30 02/11/19 10:06 Zoloft - PO 50 mg DAILY [facility] Administration Sevelamer Carbonate 800 mg 02/08/19 08:00 02/11/19 09:00 Renvela - PO 800 mg TIDCM [facility] Administration Sodium Zirconium Cyclosilicate 10 gm 02/07/19 18:15 02/11/19 10:06 Lokelma PO 10 gm DAILY [facility] Administration Tramadol HCl 50 mg 02/07/19 22:00 02/11/19 05:13 Ultram - PO Not Given TID [facility] Laboratory Results - last 24 hr 02/10/19 02/10/19 16:20 16:20 WBC 6.7 RBC 2.83 L Hgb 7.2 L Hct 22.9 L MCV 81.0 MCH 25.3 L MCHC 31.3 L RDW 19.8 H Plt Count 260 D MPV 8.2 Sodium 146 H Potassium 4.0 Chloride 108 H Carbon Dioxide 29 Anion Gap 10 BUN 47 H Creatinine 11.8 H* Est GFR (CKD-EPI)AfAm 4.91 Est GFR (CKD-EPI)NonAf 4.24 Random Glucose 136 H Calcium 8.8 S1 S2 RRR No JVD Lungs decreased Abd- soft, NT no edema PLAN psych eval noted--pt has capacity continue Zoloft dc planning to rehab with HD-- pt agreeing to HD Problem List - Problems (1) ESRD needing dialysis Code(s): N18.6 - END STAGE RENAL DISEASE; Z99.2 - DEPENDENCE ON RENAL DIALYSIS (2) Hyperkalemia Code(s): E87.5 - HYPERKALEMIA (3) Hypertension Code(s): I10 - ESSENTIAL (PRIMARY) HYPERTENSION Qualifiers: Hypertension type: unspecified Qualified Code(s): I10 - Essential (primary ) hypertension (4) Type 2 diabetes mellitus Code(s): E11.9 - TYPE 2 DIABETES MELLITUS WITHOUT COMPLICATIONS Qualifiers: Diabetes mellitus half-way insulin use: unspecified exterminator insulin use status Diabetes mellitus complication status: with unspecified complications Qualified Code(s): E11.8 - Type 2 diabetes mellitus with unspecified complications
--- NOTE | 2019-02-11 12:36 | PN ---
Progress Note, Physician History of Present Illness: Pt seen and examined at bedside. He is awake and alert. He is tolerating diet. - Current Medication List Current Medications: Active Medications Allopurinol (Zyloprim -) 100 mg PO DAILY [facility] Last Admin: 02/11/19 10:06 Dose: 100 mg Atorvastatin Calcium (Lipitor -) 40 mg PO HS [facility] Last Admin: 02/10/19 21:41 Dose: 40 mg Carvedilol (Coreg -) 25 mg PO BID [facility] Last Admin: 02/11/19 10:06 Dose: 25 mg Hydralazine HCl (Apresoline -) 100 mg PO TID [facility] Last Admin: 02/11/19 05:11 Dose: 100 mg Nifedipine (Procardia Xl -) 60 mg PO DAILY [facility] Last Admin: 02/11/19 10:06 Dose: 60 mg Pantoprazole Sodium (Protonix -) 40 mg PO DAILY [facility] Last Admin: 02/11/19 10:06 Dose: 40 mg Sertraline HCl (Zoloft -) 50 mg PO DAILY [facility] Last Admin: 02/11/19 10:06 Dose: 50 mg Sevelamer Carbonate (Renvela -) 800 mg PO TIDCM [facility] Last Admin: 02/11/19 09:00 Dose: 800 mg Sodium Zirconium Cyclosilicate (Lokelma) 10 gm PO DAILY [facility] Last Admin: 02/11/19 10:06 Dose: 10 gm Tramadol HCl (Ultram -) 50 mg PO TID [facility] Last Admin: 02/11/19 05:13 Dose: Not Given - Objective Vital Signs: Vital Signs Temperature 98.3 F 02/11/19 05:14 Pulse Rate 109 H 02/11/19 05:14 Respiratory Rate 20 02/11/19 05:14 Blood Pressure 103/7 L 02/11/19 05:14 O2 Sat by Pulse Oximetry (%) 96 02/10/19 22:00 Constitutional: Yes: Calm Eyes: Yes: Conjunctiva Clear HENT: Yes: Atraumatic Cardiovascular: Yes: S1, S2 Respiratory: Yes: CTA Bilaterally Gastrointestinal: Yes: Soft, Abdomen, Obese Genitourinary: Yes: WNL Musculoskeletal: Yes: WNL Edema: No Neurological: Yes: Oriented Psychiatric: Yes: Oriented Labs: CBC, BMP 02/10/19 16:20 02/10/19 16:20 Problem List - Problems (1) ESRD needing dialysis Code(s): N18.6 - END STAGE RENAL DISEASE; Z99.2 - DEPENDENCE ON RENAL DIALYSIS (2) Hyperkalemia Code(s): E87.5 - HYPERKALEMIA (3) Type 2 diabetes mellitus Code(s): E11.9 - TYPE 2 DIABETES MELLITUS WITHOUT COMPLICATIONS Qualifiers: Diabetes mellitus mcc insulin use: 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 Diabetes mellitus complication status: with unspecified complications Qualified Code(s): E11.8 - Type 2 diabetes mellitus with unspecified complications Assessment/Plan Current Medications Generic Name Dose Route Start Last Admin Trade Name Freq PRN Reason Stop Dose Admin Allopurinol 100 mg 02/08/19 10:00 02/11/19 10:06 Zyloprim - PO 100 mg DAILY [facility] Administration Atorvastatin Calcium 40 mg 02/07/19 22:00 02/10/19 21:41 Lipitor - PO 40 mg HS [facility] Administration Carvedilol 25 mg 02/07/19 22:00 02/11/19 10:06 Coreg - PO 25 mg BID [facility] Administration Hydralazine HCl 100 mg 02/07/19 22:00 02/11/19 05:11 Apresoline - PO 100 mg TID [facility] Administration Nifedipine 60 mg 02/08/19 10:00 02/11/19 10:06 Procardia Xl - PO 60 mg DAILY [facility] Administration Pantoprazole Sodium 40 mg 02/08/19 10:00 02/11/19 10:06 Protonix - PO 40 mg DAILY [facility] Administration Sertraline HCl 50 mg 02/08/19 11:30 02/11/19 10:06 Zoloft - PO 50 mg DAILY [facility] Administration Sevelamer Carbonate 800 mg 02/08/19 08:00 02/11/19 09:00 Renvela - PO 800 mg TIDCM [facility] Administration Sodium Zirconium Cyclosilicate 10 gm 02/07/19 18:15 02/11/19 10:06 Lokelma PO 10 gm DAILY [facility] Administration Tramadol HCl 50 mg 02/07/19 22:00 02/11/19 05:13 Ultram - PO Not Given TID [facility] Impression 1. ESRD 2. CKD 3. gout 4. HTN 5. CHF 6. DM 7. hx bipolar 8. MOLLY 9. non compliance Plan - next HD on Wednesday - renal diet - cont nepro - compliance is an issue
--- NOTE | 2019-02-11 13:38 | PN ---
Progress Note, Physician History of Present Illness: Pt seen, chart reviewed. s/p HD yesterday. Has no complaints. - Current Medication List Current Medications: Active Medications Allopurinol (Zyloprim -) 100 mg PO DAILY [facility] Last Admin: 02/11/19 10:06 Dose: 100 mg Atorvastatin Calcium (Lipitor -) 40 mg PO HS [facility] Last Admin: 02/10/19 21:41 Dose: 40 mg Carvedilol (Coreg -) 25 mg PO BID [facility] Last Admin: 02/11/19 10:06 Dose: 25 mg Hydralazine HCl (Apresoline -) 100 mg PO TID [facility] Last Admin: 02/11/19 05:11 Dose: 100 mg Nifedipine (Procardia Xl -) 60 mg PO DAILY [facility] Last Admin: 02/11/19 10:06 Dose: 60 mg Pantoprazole Sodium (Protonix -) 40 mg PO DAILY [facility] Last Admin: 02/11/19 10:06 Dose: 40 mg Sertraline HCl (Zoloft -) 50 mg PO DAILY [facility] Last Admin: 02/11/19 10:06 Dose: 50 mg Sevelamer Carbonate (Renvela -) 800 mg PO TIDCM [facility] Last Admin: 02/11/19 09:00 Dose: 800 mg Sodium Zirconium Cyclosilicate (Lokelma) 10 gm PO DAILY [facility] Last Admin: 02/11/19 10:06 Dose: 10 gm Tramadol HCl (Ultram -) 50 mg PO TID [facility] Last Admin: 02/11/19 05:13 Dose: Not Given - Objective Vital Signs: Vital Signs Temperature 97.7 F 02/11/19 10:00 Pulse Rate 104 H 02/11/19 10:00 Respiratory Rate 20 02/11/19 10:00 Blood Pressure 103/67 02/11/19 10:00 O2 Sat by Pulse Oximetry (%) 96 02/10/19 22:00 Constitutional: Yes: No Distress, Calm Cardiovascular: Yes: Regular Rate and Rhythm Respiratory: Yes: Regular Gastrointestinal: Yes: Normal Bowel Sounds, Soft, Abdomen, Obese Wound/Incision: Yes: Other (will not allow exam of DU) Neurological: Yes: Alert Labs: CBC, BMP 02/10/19 16:20 02/10/19 16:20 Problem List - Problems (1) ESRD needing dialysis Code(s): N18.6 - END STAGE RENAL DISEASE; Z99.2 - DEPENDENCE ON RENAL DIALYSIS (2) Hyperkalemia Code(s): E87.5 - HYPERKALEMIA (3) Hypertension Code(s): I10 - ESSENTIAL (PRIMARY) HYPERTENSION Qualifiers: Hypertension type: unspecified Qualified Code(s): I10 - Essential (primary ) hypertension (4) Type 2 diabetes mellitus Code(s): E11.9 - TYPE 2 DIABETES MELLITUS WITHOUT COMPLICATIONS Qualifiers: 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: unspecified halfway insulin use status Diabetes mellitus complication status: with unspecified complications Qualified Code(s): E11.8 - Type 2 diabetes mellitus with unspecified complications (5) Acute diastolic heart failure Code(s): I50.31 - ACUTE DIASTOLIC (CONGESTIVE) HEART FAILURE (6) Anemia Code(s): D64.9 - ANEMIA, UNSPECIFIED (7) Bipolar 1 disorder Code(s): F31.9 - BIPOLAR DISORDER, UNSPECIFIED (8) Morbid (severe) obesity due to excess calories Code(s): E66.01 - MORBID (SEVERE) OBESITY DUE TO EXCESS CALORIES Assessment/Plan Leukocytosis resolved Pt currently stable, afebrile Monitor off antibiotics
[2019-02-11] MEDS: ATORVASTATIN CA 40 MG TABLET (FP) PO SCH (21:44)
[2019-02-12] MEDS: hydrALAZINE HCL 50 MG TABLET (FP) PO SCH ×3 (05:04→21:29)
[2019-02-12] MEDS: traMADol HCL 50 MG TABLET PO SCH ×3 (05:05→21:29)
[2019-02-12] MEDS: SEVELAMER CARBONATE 800 MG TAB (FP) PO SCH (08:00)
[2019-02-12] MEDS: CARVEDILOL 25 MG TABLET (FP) PO SCH ×2 (09:30→21:29)
[2019-02-12] MEDS: SERTRALINE HCL 50 MG TABLET (FP) PO SCH (09:31)
[2019-02-12] MEDS: PANTOPRAZOLE 40 MG TABLET (FP) PO SCH (09:31)
[2019-02-12] MEDS: SODIUM ZIRCONIUM CYCLOSILICATE (LOKELMA) 5 GM PACKET PO SCH (09:31)
[2019-02-12] MEDS: ALLOPURINOL 100 MG TABLET (FP) PO SCH (09:32)
--- NOTE | 2019-02-12 10:35 | DS ---
Physical Examination Vital Signs: Vital Signs Temperature 98.1 F 02/12/19 05:23 Pulse Rate 100 H 02/12/19 05:23 Respiratory Rate 20 02/12/19 05:23 Blood Pressure 107/67 02/12/19 05:23 O2 Sat by Pulse Oximetry (%) 100 02/11/19 22:00 Constitutional: Yes: No Distress, Calm Cardiovascular: Yes: Regular Rate and Rhythm Respiratory: Yes: CTA Bilaterally Gastrointestinal: Yes: Normal Bowel Sounds, Soft, Abdomen, Obese. No: Tenderness Edema: No Labs: CBC, BMP 02/10/19 16:20 02/10/19 16:20 Discharge Summary Reason For Visit: END STAGE RENAL DISEASE NEEDING DIALYSIS Current Active Problems ESRD needing dialysis (Acute) Hyperkalemia (Acute) Hypertension (Chronic) Type 2 diabetes mellitus (Chronic) Hospital Course: Admitted with uremic encephalopathy --refused dialysis in [place] Pt was seen by renal and Psychiatry here Deemed competent to make informed decisions Pt agreed dialysis He was started on Zoloft-- which helped his depression potassium corrected Pt is better symptomatically not volume overloaded stable for return to [place]-- he will resume dialysis-- pt has now agreed to continue with dialysis Condition: Fair - Instructions Referrals: Earnestine Shah MD [Primary Care Provider] - Disposition: [facility] - Home Medications Comprehensive Discharge Medication List: Ambulatory Orders Allopurinol [Zyloprim -] 100 mg PO DAILY 12/24/18 Atorvastatin Ca [Lipitor] 40 mg PO HS 12/24/18 Carvedilol 25 mg PO BID 12/24/18 Hydralazine HCl 100 mg PO TID 12/24/18 Nifedipine ER [Procardia XL -] 60 mg PO DAILY 12/24/18 Pantoprazole Sodium [Protonix] 40 mg PO DAILY 12/24/18 Sevelamer Carbonate 800 mg PO TID 12/24/18 Tramadol HCl 50 mg PO TID 12/24/18
--- NOTE | 2019-02-12 11:03 | PN ---
Progress Note, Physician History of Present Illness: Pt seen and examined at bedside. He is awake and appears comfortable. - Current Medication List Current Medications: Active Medications Allopurinol (Zyloprim -) 100 mg PO DAILY [facility] Last Admin: 02/11/19 10:06 Dose: 100 mg Atorvastatin Calcium (Lipitor -) 40 mg PO HS [facility] Last Admin: 02/11/19 21:44 Dose: 40 mg Carvedilol (Coreg -) 25 mg PO BID [facility] Last Admin: 02/11/19 21:43 Dose: 25 mg Hydralazine HCl (Apresoline -) 100 mg PO TID [facility] Last Admin: 02/12/19 05:04 Dose: Not Given Nifedipine (Procardia Xl -) 60 mg PO DAILY [facility] Last Admin: 02/11/19 10:06 Dose: 60 mg Pantoprazole Sodium (Protonix -) 40 mg PO DAILY [facility] Last Admin: 02/11/19 10:06 Dose: 40 mg Sertraline HCl (Zoloft -) 50 mg PO DAILY [facility] Last Admin: 02/11/19 10:06 Dose: 50 mg Sevelamer Carbonate (Renvela -) 800 mg PO TIDCM [facility] Last Admin: 02/11/19 17:05 Dose: Not Given Sodium Zirconium Cyclosilicate (Lokelma) 10 gm PO DAILY [facility] Last Admin: 02/11/19 10:06 Dose: 10 gm Tramadol HCl (Ultram -) 50 mg PO TID [facility] Last Admin: 02/12/19 05:05 Dose: Not Given - Objective Vital Signs: Vital Signs Temperature 98.1 F 02/12/19 05:23 Pulse Rate 100 H 02/12/19 05:23 Respiratory Rate 20 02/12/19 05:23 Blood Pressure 107/67 02/12/19 05:23 O2 Sat by Pulse Oximetry (%) 100 02/11/19 22:00 Constitutional: Yes: Calm Eyes: Yes: Conjunctiva Clear HENT: Yes: Atraumatic Cardiovascular: Yes: S1, S2 Respiratory: Yes: CTA Bilaterally Gastrointestinal: Yes: Soft, Abdomen, Obese Genitourinary: Yes: WNL Musculoskeletal: Yes: WNL Edema: No Neurological: Yes: Oriented Labs: CBC, BMP 02/10/19 16:20 02/10/19 16:20 Problem List - Problems (1) ESRD needing dialysis Code(s): N18.6 - END STAGE RENAL DISEASE; Z99.2 - DEPENDENCE ON RENAL DIALYSIS (2) Hyperkalemia Code(s): E87.5 - HYPERKALEMIA (3) Type 2 diabetes mellitus Code(s): E11.9 - TYPE 2 DIABETES MELLITUS WITHOUT COMPLICATIONS 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: 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 shelter insulin use status Diabetes mellitus complication status: with unspecified complications Qualified Code(s): E11.8 - Type 2 diabetes mellitus with unspecified complications Assessment/Plan Current Medications Generic Name Dose Route Start Last Admin Trade Name Freq PRN Reason Stop Dose Admin Allopurinol 100 mg 02/08/19 10:00 02/11/19 10:06 Zyloprim - PO 100 mg DAILY [facility] Administration Atorvastatin Calcium 40 mg 02/07/19 22:00 02/11/19 21:44 Lipitor - PO 40 mg HS [facility] Administration Carvedilol 25 mg 02/07/19 22:00 02/11/19 21:43 Coreg - PO 25 mg BID [facility] Administration Hydralazine HCl 100 mg 02/07/19 22:00 02/12/19 05:04 Apresoline - PO Not Given TID [facility]ONALD Nifedipine 60 mg 02/08/19 10:00 02/11/19 10:06 Procardia Xl - PO 60 mg DAILY [facility] Administration Pantoprazole Sodium 40 mg 02/08/19 10:00 02/11/19 10:06 Protonix - PO 40 mg DAILY [facility] Administration Sertraline HCl 50 mg 02/08/19 11:30 02/11/19 10:06 Zoloft - PO 50 mg DAILY [facility] Administration Sevelamer Carbonate 800 mg 02/08/19 08:00 02/11/19 17:05 Renvela - PO Not Given TIDCM [facility]ONALD Sodium Zirconium Cyclosilicate 10 gm 02/07/19 18:15 02/11/19 10:06 Lokelma PO 10 gm DAILY [facility] Administration Tramadol HCl 50 mg 02/07/19 22:00 02/12/19 05:05 Ultram - PO Not Given TID [facility]ONALD Impression 1. ESRD 2. CKD 3. gout 4. HTN 5. CHF 6. DM 7. hx bipolar 8. MOLLY 9. non compliance Plan - HD tomorrow - mental status is improved - renal diet - cont nepro - epogen for anemia
--- NOTE | 2019-02-12 13:14 | PN ---
Progress Note, Physician History of Present Illness: Pt fully alert, stating he feels well. - Current Medication List Current Medications: Active Medications Allopurinol (Zyloprim -) 100 mg PO DAILY [facility] Last Admin: 02/11/19 10:06 Dose: 100 mg Atorvastatin Calcium (Lipitor -) 40 mg PO HS [facility] Last Admin: 02/11/19 21:44 Dose: 40 mg Carvedilol (Coreg -) 25 mg PO BID [facility] Last Admin: 02/11/19 21:43 Dose: 25 mg Epoetin Shawn (Procrit -) 10,000 unit IVPUSH ONCE ONE Stop: 02/13/19 11:04 Hydralazine HCl (Apresoline -) 100 mg PO TID [facility] Last Admin: 02/12/19 05:04 Dose: Not Given Sodium Chloride (Normal Saline -) 250 mls @ 3,000 mls/hr IV PRN PRN PRN Reason: Hypotension during Dialysis Stop: 02/13/19 11:03 Nifedipine (Procardia Xl -) 60 mg PO DAILY [facility] Last Admin: 02/11/19 10:06 Dose: 60 mg Pantoprazole Sodium (Protonix -) 40 mg PO DAILY [facility] Last Admin: 02/11/19 10:06 Dose: 40 mg Sertraline HCl (Zoloft -) 50 mg PO DAILY [facility] Last Admin: 02/11/19 10:06 Dose: 50 mg Sevelamer Carbonate (Renvela -) 800 mg PO TIDCM [facility] Last Admin: 02/11/19 17:05 Dose: Not Given Sodium Zirconium Cyclosilicate (Lokelma) 10 gm PO DAILY [facility] Last Admin: 02/11/19 10:06 Dose: 10 gm Tramadol HCl (Ultram -) 50 mg PO TID [facility] Last Admin: 02/12/19 05:05 Dose: Not Given - Objective Vital Signs: Vital Signs Temperature 98.1 F 02/12/19 05:23 Pulse Rate 100 H 02/12/19 05:23 Respiratory Rate 20 02/12/19 05:23 Blood Pressure 107/67 02/12/19 05:23 O2 Sat by Pulse Oximetry (%) 100 02/11/19 22:00 Constitutional: Yes: No Distress, Calm Cardiovascular: Yes: Regular Rate and Rhythm Respiratory: Yes: Regular Gastrointestinal: Yes: Normal Bowel Sounds, Soft Integumentary: Yes: WNL Neurological: Yes: Alert Labs: CBC, BMP 02/10/19 16:20 02/10/19 16:20 Problem List - Problems (1) ESRD needing dialysis Code(s): N18.6 - END STAGE RENAL DISEASE; Z99.2 - DEPENDENCE ON RENAL DIALYSIS (2) Hyperkalemia Code(s): E87.5 - HYPERKALEMIA (3) Hypertension Code(s): I10 - ESSENTIAL (PRIMARY) HYPERTENSION Qualifiers: Hypertension type: unspecified Qualified Code(s): I10 - Essential (primary ) hypertension (4) Type 2 diabetes mellitus Code(s): E11.9 - TYPE 2 DIABETES MELLITUS WITHOUT COMPLICATIONS Qualifiers: Diabetes mellitus alf insulin use: unspecified alf insulin use status Diabetes mellitus complication status: with unspecified complications Qualified Code(s): E11.8 - Type 2 diabetes mellitus with unspecified complications (5) Acute diastolic heart failure Code(s): I50.31 - ACUTE DIASTOLIC (CONGESTIVE) HEART FAILURE (6) Anemia Code(s): D64.9 - ANEMIA, UNSPECIFIED (7) Bipolar 1 disorder Code(s): F31.9 - BIPOLAR DISORDER, UNSPECIFIED (8) Morbid (severe) obesity due to excess calories Code(s): E66.01 - MORBID (SEVERE) OBESITY DUE TO EXCESS CALORIES Assessment/Plan Leukocytosis - resolved Uremic encephalopathy ESRD on HD Pt currently stable, afebrile off antibiotics awaiting d/c
[2019-02-12] MEDS: NIFEdipine E.R 60 MG TABLET (UD) PO SCH (17:37)
[2019-02-12] MEDS: ATORVASTATIN CA 40 MG TABLET (FP) PO SCH (21:30)
[2019-02-13] MEDS: hydrALAZINE HCL 50 MG TABLET (FP) PO SCH ×3 (05:20→22:13)
[2019-02-13] MEDS: traMADol HCL 50 MG TABLET PO SCH ×3 (05:20→22:13)
--- NOTE | 2019-02-13 10:30 | PN ---
Progress Note (short form) - Note Progress Note: no distress willing for dialysis now feels well Vital Signs - 24 hr 02/12/19 02/12/19 02/13/19 18:00 22:00 05:53 Temperature 98.6 F 97.9 F 98.7 F Pulse Rate 93 H 96 H 98 H Respiratory 20 20 20 Rate Blood Pressure 104/69 118/80 112/66 O2 Sat by Pulse 98 Oximetry (%) Current Medications Generic Name Dose Route Start Last Admin Trade Name Freq PRN Reason Stop Dose Admin Allopurinol 100 mg 02/08/19 10:00 02/12/19 09:32 Zyloprim - PO 100 mg DAILY [facility] Administration Atorvastatin Calcium 40 mg 02/07/19 22:00 02/12/19 21:30 Lipitor - PO 40 mg HS [facility] Administration Carvedilol 25 mg 02/07/19 22:00 02/12/19 21:29 Coreg - PO 25 mg BID [facility] Administration Epoetin Shawn 10,000 unit 02/13/19 11:03 Procrit - IVPUSH 02/13/19 11:04 ONCE ONE Hydralazine HCl 100 mg 02/07/19 22:00 02/13/19 05:20 Apresoline - PO Not Given TID [facility]ON[facility] Sodium Chloride 250 mls @ 3,000 mls/hr 02/12/19 11:03 Normal Saline - IV 02/13/19 11:03 PRN PRN Hypotension during Dialysis Nifedipine 60 mg 02/08/19 10:00 02/12/19 17:37 Procardia Xl - PO Not Given DAILY [facility] Pantoprazole Sodium 40 mg 02/08/19 10:00 02/12/19 09:31 Protonix - PO 40 mg DAILY [facility] Administration Sertraline HCl 50 mg 02/08/19 11:30 02/12/19 09:31 Zoloft - PO 50 mg DAILY [facility] Administration Sevelamer Carbonate 800 mg 02/08/19 08:00 02/12/19 08:00 Renvela - PO 800 mg TIDCM [facility] Administration Sodium Zirconium Cyclosilicate 10 gm 02/07/19 18:15 02/12/19 09:31 Lokelma PO 10 gm DAILY [facility] Administration Tramadol HCl 50 mg 02/07/19 22:00 02/13/19 05:20 Ultram - PO Not Given TID [facility]ON[facility] S1 S2 RRR No JVD Lungs decreased Abd- soft, NT no edema PLAN psych eval noted--pt has capacity continue Zoloft dc planning to rehab with HD-- pt agreeing to HD -->bed available tomorrow Problem List - Problems (1) ESRD needing dialysis Code(s): N18.6 - END STAGE RENAL DISEASE; Z99.2 - DEPENDENCE ON RENAL DIALYSIS (2) Hyperkalemia Code(s): E87.5 - HYPERKALEMIA (3) Hypertension Code(s): I10 - ESSENTIAL (PRIMARY) HYPERTENSION Qualifiers: Hypertension type: unspecified Qualified Code(s): I10 - Essential (primary ) hypertension (4) Type 2 diabetes mellitus Code(s): E11.9 - TYPE 2 DIABETES MELLITUS WITHOUT COMPLICATIONS Qualifiers: Diabetes mellitus shelter insulin use: unspecified shelter insulin use status Diabetes mellitus complication status: with unspecified complications Qualified Code(s): E11.8 - Type 2 diabetes mellitus with unspecified complications
--- NOTE | 2019-02-13 11:46 | PN ---
Progress Note, Physician History of Present Illness: stable says his butt is hurting - Current Medication List Current Medications: Active Medications Allopurinol (Zyloprim -) 100 mg PO DAILY [facility] Last Admin: 02/12/19 09:32 Dose: 100 mg Atorvastatin Calcium (Lipitor -) 40 mg PO HS [facility] Last Admin: 02/12/19 21:30 Dose: 40 mg Carvedilol (Coreg -) 25 mg PO BID [facility] Last Admin: 02/12/19 21:29 Dose: 25 mg Epoetin Shawn (Procrit -) 10,000 unit IVPUSH ONCE ONE Stop: 02/13/19 11:04 Hydralazine HCl (Apresoline -) 100 mg PO TID [facility] Last Admin: 02/13/19 05:20 Dose: Not Given Sodium Chloride (Normal Saline -) 250 mls @ 3,000 mls/hr IV PRN PRN PRN Reason: Hypotension during Dialysis Stop: 02/13/19 11:03 Nifedipine (Procardia Xl -) 60 mg PO DAILY [facility] Last Admin: 02/12/19 17:37 Dose: Not Given Pantoprazole Sodium (Protonix -) 40 mg PO DAILY [facility] Last Admin: 02/12/19 09:31 Dose: 40 mg Sertraline HCl (Zoloft -) 50 mg PO DAILY [facility] Last Admin: 02/12/19 09:31 Dose: 50 mg Sevelamer Carbonate (Renvela -) 800 mg PO TIDCM [facility] Last Admin: 02/12/19 08:00 Dose: 800 mg Sodium Zirconium Cyclosilicate (Lokelma) 10 gm PO DAILY [facility] Last Admin: 02/12/19 09:31 Dose: 10 gm Tramadol HCl (Ultram -) 50 mg PO TID [facility] Last Admin: 02/13/19 05:20 Dose: Not Given - Objective Vital Signs: Vital Signs Temperature 98.7 F 02/13/19 05:53 Pulse Rate 98 H 02/13/19 05:53 Respiratory Rate 20 02/13/19 05:53 Blood Pressure 112/66 02/13/19 05:53 O2 Sat by Pulse Oximetry (%) 98 02/12/19 22:00 Constitutional: Yes: No Distress Cardiovascular: Yes: S1, S2 Respiratory: Yes: Regular, CTA Bilaterally Gastrointestinal: Yes: Normal Bowel Sounds, Soft Musculoskeletal: Yes: Other Extremities: Yes: Other Wound/Incision: Yes: Other Neurological: Yes: Alert, Oriented Psychiatric: Yes: Alert, Oriented Labs: CBC, BMP 02/10/19 16:20 02/10/19 16:20 Assessment/Plan Problem List - Problems (1) ESRD needing dialysis Code(s): N18.6 - END STAGE RENAL DISEASE; Z99.2 - DEPENDENCE ON RENAL DIALYSIS (2) Hyperkalemia Code(s): E87.5 - HYPERKALEMIA (3) Hypertension Code(s): I10 - ESSENTIAL (PRIMARY) HYPERTENSION Qualifiers: Hypertension type: unspecified Qualified Code(s): I10 - Essential (primary ) hypertension (4) Type 2 diabetes mellitus Code(s): E11.9 - TYPE 2 DIABETES MELLITUS WITHOUT COMPLICATIONS Qualifiers: Diabetes mellitus skilled nursing insulin use: unspecified skilled nursing insulin use status Diabetes mellitus complication status: with unspecified complications Qualified Code(s): E11.8 - Type 2 diabetes mellitus with unspecified complications plan continue to monitor the patient wound care dialysis rest as per the team
--- NOTE | 2019-02-13 11:54 | PN ---
Progress Note, Physician History of Present Illness: Pt seen and examined at bedside. He is awake and appears comfortable. He denies shortness of breath. - Current Medication List Current Medications: Active Medications Allopurinol (Zyloprim -) 100 mg PO DAILY [facility] Last Admin: 02/12/19 09:32 Dose: 100 mg Atorvastatin Calcium (Lipitor -) 40 mg PO HS [facility] Last Admin: 02/12/19 21:30 Dose: 40 mg Carvedilol (Coreg -) 25 mg PO BID [facility] Last Admin: 02/12/19 21:29 Dose: 25 mg Epoetin Shawn (Procrit -) 10,000 unit IVPUSH ONCE ONE Stop: 02/13/19 11:04 Hydralazine HCl (Apresoline -) 100 mg PO TID [facility] Last Admin: 02/13/19 05:20 Dose: Not Given Sodium Chloride (Normal Saline -) 250 mls @ 3,000 mls/hr IV PRN PRN PRN Reason: Hypotension during Dialysis Stop: 02/13/19 11:03 Nifedipine (Procardia Xl -) 60 mg PO DAILY [facility] Last Admin: 02/12/19 17:37 Dose: Not Given Pantoprazole Sodium (Protonix -) 40 mg PO DAILY [facility] Last Admin: 02/12/19 09:31 Dose: 40 mg Sertraline HCl (Zoloft -) 50 mg PO DAILY [facility] Last Admin: 02/12/19 09:31 Dose: 50 mg Sevelamer Carbonate (Renvela -) 800 mg PO TIDCM [facility] Last Admin: 02/12/19 08:00 Dose: 800 mg Sodium Zirconium Cyclosilicate (Lokelma) 10 gm PO DAILY [facility] Last Admin: 02/12/19 09:31 Dose: 10 gm Tramadol HCl (Ultram -) 50 mg PO TID [facility] Last Admin: 02/13/19 05:20 Dose: Not Given - Objective Vital Signs: Vital Signs Temperature 98.7 F 02/13/19 05:53 Pulse Rate 98 H 02/13/19 05:53 Respiratory Rate 20 02/13/19 05:53 Blood Pressure 112/66 02/13/19 05:53 O2 Sat by Pulse Oximetry (%) 98 02/12/19 22:00 Constitutional: Yes: Calm Eyes: Yes: Conjunctiva Clear HENT: Yes: Atraumatic Cardiovascular: Yes: S1, S2 Respiratory: Yes: CTA Bilaterally Gastrointestinal: Yes: Normal Bowel Sounds, Soft, Abdomen, Obese Genitourinary: Yes: Incontinence Musculoskeletal: Yes: WNL Edema: No Neurological: Yes: Oriented Psychiatric: Yes: Oriented Labs: CBC, BMP 02/10/19 16:20 02/10/19 16:20 Problem List - Problems (1) ESRD needing dialysis Code(s): N18.6 - END STAGE RENAL DISEASE; Z99.2 - DEPENDENCE ON RENAL DIALYSIS (2) Hyperkalemia Code(s): E87.5 - HYPERKALEMIA (3) Type 2 diabetes mellitus Code(s): E11.9 - TYPE 2 DIABETES MELLITUS WITHOUT COMPLICATIONS Qualifiers: Diabetes mellitus correction insulin use: unspecified correction insulin use status Diabetes mellitus complication status: with unspecified complications Qualified Code(s): E11.8 - Type 2 diabetes mellitus with unspecified complications Assessment/Plan Current Medications Generic Name Dose Route Start Last Admin Trade Name Freq PRN Reason Stop Dose Admin Allopurinol 100 mg 02/08/19 10:00 02/12/19 09:32 Zyloprim - PO 100 mg DAILY [facility] Administration Atorvastatin Calcium 40 mg 02/07/19 22:00 02/12/19 21:30 Lipitor - PO 40 mg HS [facility] Administration Carvedilol 25 mg 02/07/19 22:00 02/12/19 21:29 Coreg - PO 25 mg BID [facility] Administration Epoetin Shawn 10,000 unit 02/13/19 11:03 Procrit - IVPUSH 02/13/19 11:04 ONCE ONE Hydralazine HCl 100 mg 02/07/19 22:00 02/13/19 05:20 Apresoline - PO Not Given TID [facility]ON[facility] Sodium Chloride 250 mls @ 3,000 mls/hr 02/12/19 11:03 Normal Saline - IV 02/13/19 11:03 PRN PRN Hypotension during Dialysis Nifedipine 60 mg 02/08/19 10:00 02/12/19 17:37 Procardia Xl - PO Not Given DAILY [facility] Pantoprazole Sodium 40 mg 02/08/19 10:00 02/12/19 09:31 Protonix - PO 40 mg DAILY [facility] Administration Sertraline HCl 50 mg 02/08/19 11:30 02/12/19 09:31 Zoloft - PO 50 mg DAILY [facility] Administration Sevelamer Carbonate 800 mg 02/08/19 08:00 02/12/19 08:00 Renvela - PO 800 mg TIDCM [facility] Administration Sodium Zirconium Cyclosilicate 10 gm 02/07/19 18:15 02/12/19 09:31 Lokelma PO 10 gm DAILY [facility] Administration Tramadol HCl 50 mg 02/07/19 22:00 02/13/19 05:20 Ultram - PO Not Given TID RONALD Impression 1. ESRD 2. CKD 3. gout 4. HTN 5. CHF 6. DM 7. hx bipolar 8. MOLLY 9. non compliance Plan - HD today - decrease hydralazine dose - pt rubio not have hd bed in rehab - send info to [facility] for renal care as well - mental status is improved - renal diet - cont nepro - epogen for anemia
[2019-02-13] MEDS: CARVEDILOL 25 MG TABLET (FP) PO SCH ×2 (12:16→22:13)
[2019-02-13] MEDS: SEVELAMER CARBONATE 800 MG TAB (FP) PO SCH ×2 (12:16→18:34)
[2019-02-13] MEDS ORDERED: SODIUM CHLORIDE 250 ML IV PRN (14:10)
[2019-02-13] MEDS ORDERED: EPOETIN ALFA 10,000 UNIT/1 ML VIAL IVPUSH ONE (14:15)
[2019-02-13 15:15] LABS: HEMATOCRIT 22.6 % (35.4-49); MCH 24.9 pg (25.7-33.7); MCHC 30.5 g/dl (32.0-35.9); MEAN CELL VOLUME 81.4 fl (80-96); MEAN PLT VOLUME 8.4 fl (7.5-11.1); PLATELET COUNT 254 K/MM3 (134-434); RBC 2.77 M/mm3 (4.00-5.60); RDW 19.4 % (11.9-15.9); WHITE BLOOD COUNT 8.1 K/mm3 (4.0-10.0)
[2019-02-13 15:19] LABS: HEMOGLOBIN 6.9 GM/dL (11.7-16.9)
[2019-02-13 15:35] LABS: CALCIUM 8.6 mg/dL (8.5-10.1); POTASSIUM 4.8 mmol/L (3.5-5.1)
[2019-02-13] MEDS ORDERED: PT OWN MED DRAWER 7, Y5N ONE (19:26)
[2019-02-13] MEDS: PANTOPRAZOLE 40 MG TABLET (FP) PO SCH (19:30)
[2019-02-13] MEDS: SERTRALINE HCL 50 MG TABLET (FP) PO SCH (19:30)
[2019-02-13] MEDS: ALLOPURINOL 100 MG TABLET (FP) PO SCH (19:30)
[2019-02-13] MEDS: NIFEdipine E.R 60 MG TABLET (UD) PO SCH ×2 (19:30→19:34)
[2019-02-13 20:34] LABS: CREATININE 3.3 mg/dL (0.55-1.3)
[2019-02-13] MEDS: ATORVASTATIN CA 40 MG TABLET (FP) PO SCH (22:13)
[2019-02-14] MEDS: hydrALAZINE HCL 50 MG TABLET (FP) PO SCH (05:48)
[2019-02-14] MEDS: traMADol HCL 50 MG TABLET PO SCH ×2 (05:48→14:24)
[2019-02-14] MEDS: SODIUM ZIRCONIUM CYCLOSILICATE (LOKELMA) 5 GM PACKET PO SCH ×2 (07:19→11:22)
[2019-02-14] MEDS: PANTOPRAZOLE 40 MG TABLET (FP) PO SCH ×2 (07:19→11:08)
[2019-02-14] MEDS: SERTRALINE HCL 50 MG TABLET (FP) PO SCH ×2 (07:20→11:06)
--- NOTE | 2019-02-14 10:44 | PN ---
Progress Note (short form) - Note Progress Note: no distress willing for dialysis now feels well Vital Signs - 24 hr 02/13/19 02/13/19 02/13/19 13:18 14:40 14:45 Temperature 97.9 F Pulse Rate 97 H 97 H 93 H Respiratory 20 18 18 Rate Blood Pressure 125/65 102/67 106/63 O2 Sat by Pulse Oximetry (%) 02/13/19 02/13/19 02/13/19 15:15 15:45 16:15 Temperature Pulse Rate 87 99 H 99 H Respiratory 18 18 18 Rate Blood Pressure 97/57 L 101/64 91/68 O2 Sat by Pulse Oximetry (%) 02/13/19 02/13/19 02/13/19 16:45 17:15 17:45 Temperature Pulse Rate 91 H 87 93 H Respiratory 18 18 18 Rate Blood Pressure 98/63 102/64 97/63 O2 Sat by Pulse Oximetry (%) 02/13/19 02/13/19 02/13/19 18:15 18:30 19:17 Temperature 98.1 F Pulse Rate 90 93 H 94 H Respiratory 18 18 18 Rate Blood Pressure 103/72 105/76 141/72 O2 Sat by Pulse Oximetry (%) 02/13/19 02/14/19 22:00 10:00 Temperature 98.8 F 98 F Pulse Rate 100 H 109 H Respiratory 20 18 Rate Blood Pressure 121/78 108/67 O2 Sat by Pulse 98 98 Oximetry (%) Current Medications Generic Name Dose Route Start Last Admin Trade Name Freq PRN Reason Stop Dose Admin Allopurinol 100 mg 02/08/19 10:00 02/14/19 11:06 Zyloprim - PO 100 mg DAILY [facility] Administration Atorvastatin Calcium 40 mg 02/07/19 22:00 02/13/19 22:13 Lipitor - PO Not Given HS RONALD Carvedilol 25 mg 02/07/19 22:00 02/14/19 11:08 Coreg - PO 25 mg BID [facility] Administration Epoetin Shawn 10,000 unit 02/15/19 11:05 Epogen - IVPUSH 02/15/19 11:06 ONCE ONE Hydralazine HCl 25 mg 02/14/19 22:00 Apresoline - PO BID [facility] Sodium Chloride 250 mls @ 3,000 mls/hr 02/14/19 11:05 Normal Saline - IV 02/15/19 11:05 PRN PRN Hypotension during Dialysis Nifedipine 60 mg 02/08/19 10:00 02/14/19 11:08 Procardia Xl - PO 60 mg DAILY [facility] Administration Pantoprazole Sodium 40 mg 02/08/19 10:00 02/14/19 11:08 Protonix - PO 40 mg DAILY [facility] Administration Sertraline HCl 50 mg 02/08/19 11:30 02/14/19 11:06 Zoloft - PO 50 mg DAILY [facility] Administration Sevelamer Carbonate 800 mg 02/08/19 08:00 02/14/19 10:57 Renvela - PO Not Given TIDCM RONALD Sodium Zirconium Cyclosilicate 10 gm 02/07/19 18:15 02/14/19 07:19 Lokelma PO Not Given DAILY [facility] Tramadol HCl 50 mg 02/07/19 22:00 02/14/19 05:48 Ultram - PO 50 mg TID [facility] Administration Laboratory Results - last 24 hr 02/13/19 02/13/19 02/13/19 14:50 14:50 15:30 WBC 8.1 RBC 2.77 L Hgb 6.9 L* Hct 22.6 L MCV 81.4 MCH 24.9 L MCHC 30.5 L RDW 19.4 H Plt Count 254 MPV 8.4 Sodium 137 Potassium 4.8 Chloride 98 Carbon Dioxide 29 Anion Gap 10 BUN 43 H Creatinine 13.0 H* Est GFR (CKD-EPI)AfAm 4.37 Est GFR (CKD-EPI)NonAf 3.77 Random Glucose 92 Calcium 8.6 Blood Type A POSITIVE Antibody Screen Negative Crossmatch See Detail 02/13/19 18:30 WBC RBC Hgb Hct MCV MCH MCHC RDW Plt Count MPV Sodium Potassium Chloride Carbon Dioxide Anion Gap BUN 10 Creatinine 3.3 H Est GFR (CKD-EPI)AfAm Est GFR (CKD-EPI)NonAf Random Glucose Calcium Blood Type Antibody Screen Crossmatch S1 S2 RRR No JVD Lungs decreased Abd- soft, NT no edema PLAN s/p PRBC yesterday had HD yesterday psych eval noted--pt has capacity continue Zoloft dc planning to rehab with HD-- pt agreeing to HD -->dc once bed available Problem List - Problems (1) ESRD needing dialysis Code(s): N18.6 - END STAGE RENAL DISEASE; Z99.2 - DEPENDENCE ON RENAL DIALYSIS (2) Hyperkalemia Code(s): E87.5 - HYPERKALEMIA (3) Hypertension Code(s): I10 - ESSENTIAL (PRIMARY) HYPERTENSION Qualifiers: Hypertension type: unspecified Qualified Code(s): I10 - Essential (primary ) hypertension (4) Type 2 diabetes mellitus Code(s): E11.9 - TYPE 2 DIABETES MELLITUS WITHOUT COMPLICATIONS Qualifiers: Diabetes mellitus longterm insulin use: unspecified longterm insulin use status Diabetes mellitus complication status: with unspecified complications Qualified Code(s): E11.8 - Type 2 diabetes mellitus with unspecified complications
[2019-02-14] MEDS: SEVELAMER CARBONATE 800 MG TAB (FP) PO SCH ×2 (10:57→11:57)
--- NOTE | 2019-02-14 11:02 | PN ---
Progress Note, Physician History of Present Illness: Pt seen and examined at bedside. He is awake and alert. He denies shortness of breath. - Current Medication List Current Medications: Active Medications Allopurinol (Zyloprim -) 100 mg PO DAILY [facility] Last Admin: 02/13/19 19:30 Dose: 100 mg Atorvastatin Calcium (Lipitor -) 40 mg PO HS [facility] Last Admin: 02/13/19 22:13 Dose: Not Given Carvedilol (Coreg -) 25 mg PO BID [facility] Last Admin: 02/13/19 22:13 Dose: Not Given Hydralazine HCl (Apresoline -) 50 mg PO TID [facility] Last Admin: 02/14/19 05:48 Dose: 50 mg Nifedipine (Procardia Xl -) 60 mg PO DAILY [facility] Last Admin: 02/12/19 17:37 Dose: Not Given Pantoprazole Sodium (Protonix -) 40 mg PO DAILY [facility] Last Admin: 02/14/19 07:19 Dose: Not Given Sertraline HCl (Zoloft -) 50 mg PO DAILY [facility] Last Admin: 02/14/19 07:20 Dose: Not Given Sevelamer Carbonate (Renvela -) 800 mg PO TIDCM [facility] Last Admin: 02/14/19 10:57 Dose: Not Given Sodium Zirconium Cyclosilicate (Lokelma) 10 gm PO DAILY [facility] Last Admin: 02/14/19 07:19 Dose: Not Given Tramadol HCl (Ultram -) 50 mg PO TID [facility] Last Admin: 02/14/19 05:48 Dose: 50 mg - Objective Vital Signs: Vital Signs Temperature 98 F 02/14/19 10:00 Pulse Rate 109 H 02/14/19 10:00 Respiratory Rate 18 02/14/19 10:00 Blood Pressure 108/67 02/14/19 10:00 O2 Sat by Pulse Oximetry (%) 98 02/14/19 10:00 Constitutional: Yes: Calm Eyes: Yes: Conjunctiva Clear HENT: Yes: Atraumatic Neck: Yes: Supple Cardiovascular: Yes: S1, S2 Respiratory: Yes: CTA Bilaterally Gastrointestinal: Yes: Normal Bowel Sounds, Soft Genitourinary: Yes: WNL Musculoskeletal: Yes: WNL Edema: No Neurological: Yes: Oriented Labs: CBC, BMP 02/13/19 14:50 02/13/19 18:30 Problem List - Problems (1) ESRD needing dialysis Code(s): N18.6 - END STAGE RENAL DISEASE; Z99.2 - DEPENDENCE ON RENAL DIALYSIS (2) Hyperkalemia Code(s): E87.5 - HYPERKALEMIA (3) Type 2 diabetes mellitus Code(s): E11.9 - TYPE 2 DIABETES MELLITUS WITHOUT COMPLICATIONS Qualifiers: Diabetes mellitus group home 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 Diabetes mellitus complication status: with unspecified complications Qualified Code(s): E11.8 - Type 2 diabetes mellitus with unspecified complications Assessment/Plan Current Medications Generic Name Dose Route Start Last Admin Trade Name Freq PRN Reason Stop Dose Admin Allopurinol 100 mg 02/08/19 10:00 02/13/19 19:30 Zyloprim - PO 100 mg DAILY [facility] Administration Atorvastatin Calcium 40 mg 02/07/19 22:00 02/13/19 22:13 Lipitor - PO Not Given HS RONALD Carvedilol 25 mg 02/07/19 22:00 02/13/19 22:13 Coreg - PO Not Given BID RONALD Hydralazine HCl 50 mg 02/13/19 11:54 02/14/19 05:48 Apresoline - PO 50 mg TID [facility]ON[facility] Administration Nifedipine 60 mg 02/08/19 10:00 02/12/19 17:37 Procardia Xl - PO Not Given DAILY [facility]ON[facility]D Pantoprazole Sodium 40 mg 02/08/19 10:00 02/14/19 07:19 Protonix - PO Not Given DAILY [facility]ONALD Sertraline HCl 50 mg 02/08/19 11:30 02/14/19 07:20 Zoloft - PO Not Given DAILY RONALD Sevelamer Carbonate 800 mg 02/08/19 08:00 02/14/19 10:57 Renvela - PO Not Given TIDCM RONALD Sodium Zirconium Cyclosilicate 10 gm 02/07/19 18:15 02/14/19 07:19 Lokelma PO Not Given DAILY RON[facility]D Tramadol HCl 50 mg 02/07/19 22:00 02/14/19 05:48 Ultram - PO 50 mg TID RONALD Administration Impression 1. ESRD 2. CKD 3. gout 4. HTN 5. CHF 6. DM 7. hx bipolar 8. MOLLY 9. non compliance Plan - next HD tomorrow - decrease hydralazine dose further - pending placement for HD - compliance has been a problem - mental status is improved - renal diet - cont nepro - epogen for anemia
[2019-02-14] MEDS: ALLOPURINOL 100 MG TABLET (FP) PO SCH (11:06)
[2019-02-14] MEDS: CARVEDILOL 25 MG TABLET (FP) PO SCH ×2 (11:08→22:23)
[2019-02-14] MEDS: NIFEdipine E.R 60 MG TABLET (UD) PO SCH (11:08)
--- NOTE | 2019-02-14 12:18 | PN ---
Progress Note, Physician History of Present Illness: stable improving for dialysis - Current Medication List Current Medications: Active Medications Allopurinol (Zyloprim -) 100 mg PO DAILY [facility] Last Admin: 02/14/19 11:06 Dose: 100 mg Atorvastatin Calcium (Lipitor -) 40 mg PO HS [facility] Last Admin: 02/13/19 22:13 Dose: Not Given Carvedilol (Coreg -) 25 mg PO BID [facility] Last Admin: 02/14/19 11:08 Dose: 25 mg Epoetin Shawn (Epogen -) 10,000 unit IVPUSH ONCE ONE Stop: 02/15/19 11:06 Hydralazine HCl (Apresoline -) 25 mg PO BID [facility] Sodium Chloride (Normal Saline -) 250 mls @ 3,000 mls/hr IV PRN PRN PRN Reason: Hypotension during Dialysis Stop: 02/15/19 11:05 Nifedipine (Procardia Xl -) 60 mg PO DAILY [facility] Last Admin: 02/14/19 11:08 Dose: 60 mg Pantoprazole Sodium (Protonix -) 40 mg PO DAILY [facility] Last Admin: 02/14/19 11:08 Dose: 40 mg Sertraline HCl (Zoloft -) 50 mg PO DAILY [facility] Last Admin: 02/14/19 11:06 Dose: 50 mg Sevelamer Carbonate (Renvela -) 800 mg PO TIDCM [facility] Last Admin: 02/14/19 11:57 Dose: Not Given Sodium Zirconium Cyclosilicate (Lokelma) 10 gm PO DAILY [facility] Last Admin: 02/14/19 11:22 Dose: Not Given Tramadol HCl (Ultram -) 50 mg PO TID [facility] Last Admin: 02/14/19 05:48 Dose: 50 mg - Objective Vital Signs: Vital Signs Temperature 98 F 02/14/19 10:00 Pulse Rate 109 H 02/14/19 10:00 Respiratory Rate 18 02/14/19 10:00 Blood Pressure 108/67 02/14/19 10:00 O2 Sat by Pulse Oximetry (%) 98 02/14/19 10:00 Constitutional: Yes: No Distress, Calm Cardiovascular: Yes: Regular Rate and Rhythm Respiratory: Yes: Regular, CTA Bilaterally Gastrointestinal: Yes: Normal Bowel Sounds, Soft Musculoskeletal: Yes: WNL Extremities: Yes: WNL Wound/Incision: Yes: Open to air Neurological: Yes: Alert Labs: CBC, BMP 02/13/19 14:50 02/13/19 18:30 Assessment/Plan Problem List - Problems (1) ESRD needing dialysis Code(s): N18.6 - END STAGE RENAL DISEASE; Z99.2 - DEPENDENCE ON RENAL DIALYSIS (2) Hyperkalemia Code(s): E87.5 - HYPERKALEMIA (3) Hypertension Code(s): I10 - ESSENTIAL (PRIMARY) HYPERTENSION Qualifiers: Hypertension type: unspecified Qualified Code(s): I10 - Essential (primary ) hypertension (4) Type 2 diabetes mellitus Code(s): E11.9 - TYPE 2 DIABETES MELLITUS WITHOUT COMPLICATIONS 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
[2019-02-14] MEDS: hydrALAZINE HCL 25 MG TABLET (FP) PO SCH (22:23)
[2019-02-14] MEDS: ATORVASTATIN CA 40 MG TABLET (FP) PO SCH (22:23)
[2019-02-15] MEDS: SEVELAMER CARBONATE 800 MG TAB (FP) PO SCH ×3 (08:51→18:16)
[2019-02-15] MEDS ORDERED: SODIUM CHLORIDE 250 ML IV PRN (09:00)
[2019-02-15] MEDS ORDERED: EPOETIN ALFA 10,000 UNIT/1 ML VIAL IVPUSH ONE (09:00)
[2019-02-15 09:55] LABS: HEMOGLOBIN 8.1 GM/dL (11.7-16.9); MCH 25.3 pg (25.7-33.7); MCHC 31.1 g/dl (32.0-35.9); MEAN CELL VOLUME 81.4 fl (80-96); MEAN PLT VOLUME 8.1 fl (7.5-11.1); PLATELET COUNT 250 K/MM3 (134-434); RBC 3.19 M/mm3 (4.00-5.60); RDW 19.4 % (11.9-15.9)
--- NOTE | 2019-02-15 10:00 | PN ---
Progress Note (short form) - Note Progress Note: no distress willing for dialysis now feels well examined in dialysis Vital Signs - 24 hr 02/14/19 02/14/19 02/15/19 19:14 22:00 06:00 Temperature 97.8 F 97.5 F L 98.8 F Pulse Rate 108 H 101 H 104 H Respiratory 18 20 20 Rate Blood Pressure 111/58 L 99/64 101/71 O2 Sat by Pulse 96 Oximetry (%) 02/15/19 02/15/19 02/15/19 08:25 08:30 08:45 Temperature Pulse Rate 111 H 104 H 100 H Respiratory 18 18 18 Rate Blood Pressure 108/64 113/72 97/71 O2 Sat by Pulse Oximetry (%) 02/15/19 02/15/19 02/15/19 09:00 09:30 10:00 Temperature 97.9 F Pulse Rate 109 H 110 H 104 H Respiratory 18 18 20 Rate Blood Pressure 91/70 91/66 108/74 O2 Sat by Pulse 93 L Oximetry (%) 02/15/19 02/15/19 02/15/19 10:30 10:45 11:15 Temperature Pulse Rate 58 L 53 L 58 L Respiratory 18 18 18 Rate Blood Pressure 90/60 102/53 L 87/33 L O2 Sat by Pulse Oximetry (%) 02/15/19 02/15/19 02/15/19 11:30 11:45 13:37 Temperature 97.5 F L Pulse Rate 50 L 54 L 120 H Respiratory 18 18 20 Rate Blood Pressure 80/48 L 102/54 L 85/74 L O2 Sat by Pulse Oximetry (%) Current Medications Generic Name Dose Route Start Last Admin Trade Name Freq PRN Reason Stop Dose Admin Allopurinol 100 mg 02/08/19 10:00 02/15/19 12:08 Zyloprim - PO Not Given DAILY RON[facility] Atorvastatin Calcium 40 mg 02/07/19 22:00 02/14/19 22:23 Lipitor - PO Not Given HS RONALD Carvedilol 25 mg 02/07/19 22:00 02/15/19 12:07 Coreg - PO Not Given BID RONALD Nifedipine 60 mg 02/08/19 10:00 02/15/19 12:08 Procardia Xl - PO Not Given DAILY RON[facility] Pantoprazole Sodium 40 mg 02/08/19 10:00 02/15/19 12:08 Protonix - PO Not Given DAILY RONALD Sertraline HCl 50 mg 02/08/19 11:30 02/15/19 12:08 Zoloft - PO Not Given DAILY RONALD Sevelamer Carbonate 800 mg 02/08/19 08:00 02/15/19 12:07 Renvela - PO Not Given TIDCM RON[facility] Laboratory Results - last 24 hr 02/15/19 02/15/19 08:30 08:30 WBC 9.0 RBC 3.19 L Hgb 8.1 L Hct 26.0 L D MCV 81.4 MCH 25.3 L MCHC 31.1 L RDW 19.4 H Plt Count 250 MPV 8.1 Sodium Cancelled Potassium Cancelled Chloride Cancelled Carbon Dioxide Cancelled Anion Gap Cancelled BUN Cancelled Creatinine Cancelled Est GFR (CKD-EPI)AfAm Cancelled Est GFR (CKD-EPI)NonAf Cancelled Random Glucose Cancelled Calcium Cancelled S1 S2 RRR No JVD Lungs decreased Abd- soft, NT no edema PLAN s/p PRBC had HD yesterday psych eval noted--pt has capacity continue Zoloft dc planning to rehab with HD-- pt agreeing to HD -->dc once bed available Problem List - Problems (1) ESRD needing dialysis Code(s): N18.6 - END STAGE RENAL DISEASE; Z99.2 - DEPENDENCE ON RENAL DIALYSIS (2) Hyperkalemia Code(s): E87.5 - HYPERKALEMIA (3) Hypertension Code(s): I10 - ESSENTIAL (PRIMARY) HYPERTENSION Qualifiers: Hypertension type: unspecified Qualified Code(s): I10 - Essential (primary ) hypertension (4) Type 2 diabetes mellitus Code(s): E11.9 - TYPE 2 DIABETES MELLITUS WITHOUT COMPLICATIONS Qualifiers: 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
--- NOTE | 2019-02-15 11:52 | PN ---
Progress Note, Physician - Current Medication List Current Medications: Active Medications Allopurinol (Zyloprim -) 100 mg PO DAILY [facility] Last Admin: 02/14/19 11:06 Dose: 100 mg Atorvastatin Calcium (Lipitor -) 40 mg PO HS [facility] Last Admin: 02/14/19 22:23 Dose: Not Given Carvedilol (Coreg -) 25 mg PO BID [facility] Last Admin: 02/14/19 22:23 Dose: Not Given Hydralazine HCl (Apresoline -) 25 mg PO BID [facility] Last Admin: 02/14/19 22:23 Dose: Not Given Nifedipine (Procardia Xl -) 60 mg PO DAILY [facility] Last Admin: 02/14/19 11:08 Dose: 60 mg Pantoprazole Sodium (Protonix -) 40 mg PO DAILY [facility] Last Admin: 02/14/19 11:08 Dose: 40 mg Sertraline HCl (Zoloft -) 50 mg PO DAILY [facility] Last Admin: 02/14/19 11:06 Dose: 50 mg Sevelamer Carbonate (Renvela -) 800 mg PO TIDCM [facility] Last Admin: 02/15/19 08:51 Dose: Not Given Sodium Zirconium Cyclosilicate (Lokelma) 10 gm PO DAILY [facility] Last Admin: 02/14/19 11:22 Dose: Not Given - Objective Vital Signs: Vital Signs Temperature 97.9 F 02/15/19 10:00 Pulse Rate 104 H 02/15/19 10:00 Respiratory Rate 20 02/15/19 10:00 Blood Pressure 108/74 02/15/19 10:00 O2 Sat by Pulse Oximetry (%) 93 L 02/15/19 10:00 Labs: CBC, BMP 02/15/19 08:30
[2019-02-15] MEDS: hydrALAZINE HCL 25 MG TABLET (FP) PO SCH (12:07)
[2019-02-15] MEDS: CARVEDILOL 25 MG TABLET (FP) PO SCH ×2 (12:07→22:01)
[2019-02-15] MEDS: SODIUM ZIRCONIUM CYCLOSILICATE (LOKELMA) 5 GM PACKET PO SCH (12:07)
[2019-02-15] MEDS: PANTOPRAZOLE 40 MG TABLET (FP) PO SCH (12:08)
[2019-02-15] MEDS: SERTRALINE HCL 50 MG TABLET (FP) PO SCH (12:08)
[2019-02-15] MEDS: ALLOPURINOL 100 MG TABLET (FP) PO SCH (12:08)
[2019-02-15] MEDS: NIFEdipine E.R 60 MG TABLET (UD) PO SCH (12:08)
--- NOTE | 2019-02-15 13:15 | PN ---
Progress Note, Physician History of Present Illness: Pt seen and examined at bedside. He is awake and alert. He denies shortness of breath. - Current Medication List Current Medications: Active Medications Allopurinol (Zyloprim -) 100 mg PO DAILY [facility] Last Admin: 02/15/19 12:08 Dose: Not Given Atorvastatin Calcium (Lipitor -) 40 mg PO HS [facility] Last Admin: 02/14/19 22:23 Dose: Not Given Carvedilol (Coreg -) 25 mg PO BID [facility] Last Admin: 02/15/19 12:07 Dose: Not Given Hydralazine HCl (Apresoline -) 25 mg PO BID [facility] Last Admin: 02/15/19 12:07 Dose: Not Given Nifedipine (Procardia Xl -) 60 mg PO DAILY [facility] Last Admin: 02/15/19 12:08 Dose: Not Given Pantoprazole Sodium (Protonix -) 40 mg PO DAILY [facility] Last Admin: 02/15/19 12:08 Dose: Not Given Sertraline HCl (Zoloft -) 50 mg PO DAILY [facility] Last Admin: 02/15/19 12:08 Dose: Not Given Sevelamer Carbonate (Renvela -) 800 mg PO TIDCM [facility] Last Admin: 02/15/19 12:07 Dose: Not Given Sodium Zirconium Cyclosilicate (Lokelma) 10 gm PO DAILY [facility] Last Admin: 02/15/19 12:07 Dose: Not Given - Objective Vital Signs: Vital Signs Temperature 97.9 F 02/15/19 10:00 Pulse Rate 54 L 02/15/19 11:45 Respiratory Rate 18 02/15/19 11:45 Blood Pressure 102/54 L 02/15/19 11:45 O2 Sat by Pulse Oximetry (%) 93 L 02/15/19 10:00 Constitutional: Yes: Calm Eyes: Yes: Conjunctiva Clear HENT: Yes: Atraumatic Cardiovascular: Yes: S1, S2 Respiratory: Yes: CTA Bilaterally Gastrointestinal: Yes: Soft Genitourinary: Yes: Incontinence Musculoskeletal: Yes: WNL Edema: No Neurological: Yes: Oriented Psychiatric: Yes: Oriented Labs: CBC, BMP 02/15/19 08:30 Problem List - Problems (1) ESRD needing dialysis Code(s): N18.6 - END STAGE RENAL DISEASE; Z99.2 - DEPENDENCE ON RENAL DIALYSIS (2) Hyperkalemia Code(s): E87.5 - HYPERKALEMIA (3) Type 2 diabetes mellitus Code(s): E11.9 - TYPE 2 DIABETES MELLITUS WITHOUT COMPLICATIONS Qualifiers: Diabetes mellitus senior living insulin use: unspecified senior living insulin use status Diabetes mellitus complication status: with unspecified complications Qualified Code(s): E11.8 - Type 2 diabetes mellitus with unspecified complications Assessment/Plan Current Medications Generic Name Dose Route Start Last Admin Trade Name Freq PRN Reason Stop Dose Admin Allopurinol 100 mg 02/08/19 10:00 02/15/19 12:08 Zyloprim - PO Not Given DAILY RONALD Atorvastatin Calcium 40 mg 02/07/19 22:00 02/14/19 22:23 Lipitor - PO Not Given HS RONALD Carvedilol 25 mg 02/07/19 22:00 02/15/19 12:07 Coreg - PO Not Given BID RONALD Hydralazine HCl 25 mg 02/14/19 22:00 02/15/19 12:07 Apresoline - PO Not Given BID RONALD Nifedipine 60 mg 02/08/19 10:00 02/15/19 12:08 Procardia Xl - PO Not Given DAILY RONALD Pantoprazole Sodium 40 mg 02/08/19 10:00 02/15/19 12:08 Protonix - PO Not Given DAILY RONALD Sertraline HCl 50 mg 02/08/19 11:30 02/15/19 12:08 Zoloft - PO Not Given DAILY RONALD Sevelamer Carbonate 800 mg 02/08/19 08:00 02/15/19 12:07 Renvela - PO Not Given TIDCM [facility] Sodium Zirconium Cyclosilicate 10 gm 02/07/19 18:15 02/15/19 12:07 Lokelma PO Not Given DAILY RONALD Impression 1. ESRD 2. CKD 3. gout 4. HTN 5. CHF 6. DM 7. hx bipolar 8. MOLLY 9. non compliance Plan - HD today - d/c lokelma - d/c hydralazine - pending placement for HD - compliance has been a problem - mental status is improved - renal diet - cont nepro - epogen for anemia
[2019-02-15 15:10] LABS: CALCIUM 8.6 mg/dL (8.5-10.1)
[2019-02-15 15:13] LABS: CREATININE 8.2 mg/dL (0.55-1.3)
[2019-02-15 15:31] VITALS: BMI 39.3
[2019-02-15] MEDS ORDERED: ACETAMINOPHEN 500 MG TABLET (FP) PO PRN (18:30)
[2019-02-15] MEDS: ATORVASTATIN CA 40 MG TABLET (FP) PO SCH (22:01)
[2019-02-16] MEDS: SEVELAMER CARBONATE 800 MG TAB (FP) PO SCH ×3 (08:44→18:45)
[2019-02-16] MEDS: NIFEdipine E.R 60 MG TABLET (UD) PO SCH (09:28)
[2019-02-16] MEDS: CARVEDILOL 25 MG TABLET (FP) PO SCH ×2 (09:28→21:55)
[2019-02-16] MEDS: PANTOPRAZOLE 40 MG TABLET (FP) PO SCH (09:28)
[2019-02-16] MEDS: ALLOPURINOL 100 MG TABLET (FP) PO SCH (09:28)
[2019-02-16] MEDS: SERTRALINE HCL 50 MG TABLET (FP) PO SCH (09:28)
--- NOTE | 2019-02-16 11:03 | PN ---
Progress Note, Physician History of Present Illness: stable no new issues - Current Medication List Current Medications: Active Medications Acetaminophen (Tylenol -) 1,000 mg PO Q8H PRN PRN Reason: PAIN LEVEL 4 - 6 Last Admin: 02/15/19 18:43 Dose: 1,000 mg Allopurinol (Zyloprim -) 100 mg PO DAILY [facility] Last Admin: 02/16/19 09:28 Dose: 100 mg Atorvastatin Calcium (Lipitor -) 40 mg PO HS [facility] Last Admin: 02/15/19 22:01 Dose: 40 mg Carvedilol (Coreg -) 25 mg PO BID [facility] Last Admin: 02/16/19 09:28 Dose: Not Given Nifedipine (Procardia Xl -) 60 mg PO DAILY [facility] Last Admin: 02/16/19 09:28 Dose: Not Given Pantoprazole Sodium (Protonix -) 40 mg PO DAILY [facility] Last Admin: 02/16/19 09:28 Dose: 40 mg Sertraline HCl (Zoloft -) 50 mg PO DAILY [facility] Last Admin: 02/16/19 09:28 Dose: 50 mg Sevelamer Carbonate (Renvela -) 800 mg PO TIDCM [facility] Last Admin: 02/16/19 08:44 Dose: Not Given - Objective Vital Signs: Vital Signs Temperature 97.4 F L 02/16/19 10:00 Pulse Rate 93 H 02/16/19 10:00 Respiratory Rate 22 H 02/16/19 10:00 Blood Pressure 103/65 02/16/19 10:00 O2 Sat by Pulse Oximetry (%) 96 02/16/19 10:00 Constitutional: Yes: No Distress, Calm Cardiovascular: Yes: S1, S2 Respiratory: Yes: Regular, CTA Bilaterally Gastrointestinal: Yes: Normal Bowel Sounds, Soft Musculoskeletal: Yes: WNL Extremities: Yes: Other Neurological: Yes: Alert, Oriented Psychiatric: Yes: Alert, Oriented Labs: CBC, BMP 02/15/19 08:30 02/15/19 08:30 Assessment/Plan Problem List - Problems (1) ESRD needing dialysis Code(s): N18.6 - END STAGE RENAL DISEASE; Z99.2 - DEPENDENCE ON RENAL DIALYSIS (2) Hyperkalemia Code(s): E87.5 - HYPERKALEMIA (3) Hypertension Code(s): I10 - ESSENTIAL (PRIMARY) HYPERTENSION Qualifiers: Hypertension type: unspecified Qualified Code(s): I10 - Essential (primary ) hypertension (4) Type 2 diabetes mellitus Code(s): E11.9 - TYPE 2 DIABETES MELLITUS WITHOUT COMPLICATIONS Qualifiers: Diabetes mellitus shelter insulin use: unspecified doctor of medicine insulin use status Diabetes mellitus complication status: with unspecified complications Qualified Code(s): E11.8 - Type 2 diabetes mellitus with unspecified complications plan continue to monitor the patient wound care dialysis rest as per the team
--- NOTE | 2019-02-16 13:19 | PN ---
Progress Note (short form) - Note Progress Note: no distress willing for dialysis now feels well appealed discharge Vital Signs - 24 hr 02/15/19 02/15/19 02/15/19 13:37 19:32 20:38 Temperature 97.5 F L 98.9 F 97.5 F L Pulse Rate 120 H 124 H 111 H Respiratory 20 20 20 Rate Blood Pressure 85/74 L 79/63 L 86/73 L O2 Sat by Pulse Oximetry (%) 02/15/19 02/16/19 02/16/19 20:39 06:00 10:00 Temperature 97.7 F 97.4 F L Pulse Rate 102 H 93 H Respiratory 20 20 22 H Rate Blood Pressure 103/65 O2 Sat by Pulse 99 96 Oximetry (%) Current Medications Generic Name Dose Route Start Last Admin Trade Name Freq PRN Reason Stop Dose Admin Acetaminophen 1,000 mg 02/15/19 18:30 02/15/19 18:43 Tylenol - PO 1,000 mg Q8H PRN Administration PAIN LEVEL 4 - 6 Allopurinol 100 mg 02/08/19 10:00 02/16/19 09:28 Zyloprim - PO 100 mg DAILY [facility] Administration Atorvastatin Calcium 40 mg 02/07/19 22:00 02/15/19 22:01 Lipitor - PO 40 mg HS [facility]ONALD Administration Carvedilol 25 mg 02/07/19 22:00 02/16/19 09:28 Coreg - PO Not Given BID RONALD Nifedipine 60 mg 02/08/19 10:00 02/16/19 09:28 Procardia Xl - PO Not Given DAILY RONALD Pantoprazole Sodium 40 mg 02/08/19 10:00 02/16/19 09:28 Protonix - PO 40 mg DAILY [facility] Administration Sertraline HCl 50 mg 02/08/19 11:30 02/16/19 09:28 Zoloft - PO 50 mg DAILY [facility] Administration Sevelamer Carbonate 800 mg 02/08/19 08:00 02/16/19 11:28 Renvela - PO Not Given TIDCM [facility] Laboratory Results - last 24 hr 02/15/19 02/15/19 08:30 08:30 Sodium Cancelled 139 Potassium Cancelled 4.0 Chloride Cancelled 97 L Carbon Dioxide Cancelled 30 Anion Gap Cancelled 12 BUN Cancelled 26 H Creatinine Cancelled 8.2 H* Est GFR (CKD-EPI)AfAm Cancelled 7.63 Est GFR (CKD-EPI)NonAf Cancelled 6.58 Random Glucose Cancelled 88 Calcium Cancelled 8.6 S1 S2 RRR No JVD Lungs decreased Abd- soft, NT no edema PLAN s/p PRBC had HD psych eval noted--pt has capacity continue Zoloft dc planning to rehab with HD-- pt agreeing to HD -->dc once bed available appeals process for discharge Problem List - Problems (1) ESRD needing dialysis Code(s): N18.6 - END STAGE RENAL DISEASE; Z99.2 - DEPENDENCE ON RENAL DIALYSIS (2) Hyperkalemia Code(s): E87.5 - HYPERKALEMIA (3) Hypertension Code(s): I10 - ESSENTIAL (PRIMARY) HYPERTENSION Qualifiers: Hypertension type: unspecified Qualified Code(s): I10 - Essential (primary ) hypertension (4) Type 2 diabetes mellitus Code(s): E11.9 - TYPE 2 DIABETES MELLITUS WITHOUT COMPLICATIONS Qualifiers: Diabetes mellitus lobsterman insulin use: unspecified lobsterman insulin use status Diabetes mellitus complication status: with unspecified complications Qualified Code(s): E11.8 - Type 2 diabetes mellitus with unspecified complications
[2019-02-16] MEDS ORDERED: NIFEdipine E.R. 30 MG TABLET (FP) PO SCH (15:27)
--- NOTE | 2019-02-16 15:27 | PN ---
Progress Note, Physician History of Present Illness: Pt seen and examined at bedside. He is awake and alert. He denies shortness of breath. - Current Medication List Current Medications: Active Medications Acetaminophen (Tylenol -) 1,000 mg PO Q8H PRN PRN Reason: PAIN LEVEL 4 - 6 Last Admin: 02/15/19 18:43 Dose: 1,000 mg Allopurinol (Zyloprim -) 100 mg PO DAILY [facility] Last Admin: 02/16/19 09:28 Dose: 100 mg Atorvastatin Calcium (Lipitor -) 40 mg PO HS [facility] Last Admin: 02/15/19 22:01 Dose: 40 mg Carvedilol (Coreg -) 25 mg PO BID [facility] Last Admin: 02/16/19 09:28 Dose: Not Given Nifedipine (Procardia Xl -) 60 mg PO DAILY [facility] Last Admin: 02/16/19 09:28 Dose: Not Given Pantoprazole Sodium (Protonix -) 40 mg PO DAILY [facility] Last Admin: 02/16/19 09:28 Dose: 40 mg Sertraline HCl (Zoloft -) 50 mg PO DAILY [facility] Last Admin: 02/16/19 09:28 Dose: 50 mg Sevelamer Carbonate (Renvela -) 800 mg PO TIDCM [facility] Last Admin: 02/16/19 11:28 Dose: Not Given - Objective Vital Signs: Vital Signs Temperature 98 F 02/16/19 13:41 Pulse Rate 113 H 02/16/19 13:41 Respiratory Rate 20 02/16/19 13:41 Blood Pressure 87/62 L 02/16/19 13:41 O2 Sat by Pulse Oximetry (%) 96 02/16/19 10:00 Constitutional: Yes: Calm Eyes: Yes: Conjunctiva Clear HENT: Yes: Atraumatic Neck: Yes: Supple Cardiovascular: Yes: S1, S2 Respiratory: Yes: CTA Bilaterally Gastrointestinal: Yes: Soft, Abdomen, Obese Genitourinary: Yes: WNL Musculoskeletal: Yes: WNL Edema: No Neurological: Yes: Oriented Psychiatric: Yes: Oriented Labs: CBC, BMP 02/15/19 08:30 02/15/19 08:30 Problem List - Problems (1) ESRD needing dialysis Code(s): N18.6 - END STAGE RENAL DISEASE; Z99.2 - DEPENDENCE ON RENAL DIALYSIS (2) Hyperkalemia Code(s): E87.5 - HYPERKALEMIA (3) Type 2 diabetes mellitus Code(s): E11.9 - TYPE 2 DIABETES MELLITUS WITHOUT COMPLICATIONS Qualifiers: Diabetes mellitus terminal gauger insulin use: unspecified terminal gauger insulin use status Diabetes mellitus complication status: with unspecified complications Qualified Code(s): E11.8 - Type 2 diabetes mellitus with unspecified complications Assessment/Plan Current Medications Generic Name Dose Route Start Last Admin Trade Name Freq PRN Reason Stop Dose Admin Acetaminophen 1,000 mg 02/15/19 18:30 02/15/19 18:43 Tylenol - PO 1,000 mg Q8H PRN Administration PAIN LEVEL 4 - 6 Allopurinol 100 mg 02/08/19 10:00 02/16/19 09:28 Zyloprim - PO 100 mg DAILY [facility] Administration Atorvastatin Calcium 40 mg 02/07/19 22:00 02/15/19 22:01 Lipitor - PO 40 mg HS [facility] Administration Carvedilol 25 mg 02/07/19 22:00 02/16/19 09:28 Coreg - PO Not Given BID [facility]ONALD Nifedipine 60 mg 02/08/19 10:00 02/16/19 09:28 Procardia Xl - PO Not Given DAILY [facility] Pantoprazole Sodium 40 mg 02/08/19 10:00 02/16/19 09:28 Protonix - PO 40 mg DAILY [facility] Administration Sertraline HCl 50 mg 02/08/19 11:30 02/16/19 09:28 Zoloft - PO 50 mg DAILY [facility] Administration Sevelamer Carbonate 800 mg 02/08/19 08:00 02/16/19 11:28 Renvela - PO Not Given TIDCM [facility] Impression 1. ESRD 2. CKD 3. gout 4. HTN 5. CHF 6. DM 7. hx bipolar 8. MOLLY 9. non compliance Plan - HD tomorrow - decrease nifedipine dose to 30 mg - compliance has been a problem - mental status is improved - renal diet - cont nepro - epogen for anemia
[2019-02-16] MEDS: ATORVASTATIN CA 40 MG TABLET (FP) PO SCH (21:55)
[2019-02-17] MEDS ORDERED: EPOETIN ALFA 10,000 UNIT/1 ML VIAL IVPUSH ONE (09:00)
[2019-02-17] MEDS ORDERED: SODIUM CHLORIDE 250 ML IV PRN (09:00)
[2019-02-17] MEDS: SERTRALINE HCL 50 MG TABLET (FP) PO SCH (10:10)
[2019-02-17] MEDS: CARVEDILOL 25 MG TABLET (FP) PO SCH ×2 (10:10→21:57)
[2019-02-17] MEDS: ALLOPURINOL 100 MG TABLET (FP) PO SCH (10:10)
[2019-02-17] MEDS: PANTOPRAZOLE 40 MG TABLET (FP) PO SCH (10:10)
[2019-02-17] MEDS: SEVELAMER CARBONATE 800 MG TAB (FP) PO SCH ×3 (10:11→17:36)
--- NOTE | 2019-02-17 11:42 | PN ---
Progress Note, Physician - Current Medication List Current Medications: Active Medications Acetaminophen (Tylenol -) 1,000 mg PO Q8H PRN PRN Reason: PAIN LEVEL 4 - 6 Last Admin: 02/15/19 18:43 Dose: 1,000 mg Allopurinol (Zyloprim -) 100 mg PO DAILY [facility] Last Admin: 02/17/19 10:10 Dose: 100 mg Atorvastatin Calcium (Lipitor -) 40 mg PO HS [facility] Last Admin: 02/16/19 21:55 Dose: Not Given Carvedilol (Coreg -) 25 mg PO BID [facility] Last Admin: 02/17/19 10:10 Dose: 25 mg Nifedipine (Procardia Xl -) 30 mg PO DAILY [facility] Last Admin: 02/17/19 10:10 Dose: 30 mg Pantoprazole Sodium (Protonix -) 40 mg PO DAILY [facility] Last Admin: 02/17/19 10:10 Dose: 40 mg Sertraline HCl (Zoloft -) 50 mg PO DAILY [facility] Last Admin: 02/17/19 10:10 Dose: 50 mg Sevelamer Carbonate (Renvela -) 800 mg PO TIDCM [facility] Last Admin: 02/17/19 10:11 Dose: 800 mg - Objective Vital Signs: Vital Signs Temperature 97.9 F 02/17/19 05:11 Pulse Rate 109 H 02/17/19 05:11 Respiratory Rate 20 02/17/19 05:11 Blood Pressure 104/75 02/17/19 05:11 O2 Sat by Pulse Oximetry (%) 100 02/16/19 21:03 Labs: CBC, BMP 02/15/19 08:30 02/15/19 08:30
--- NOTE | 2019-02-17 12:23 | PN ---
Progress Note, Physician History of Present Illness: Pt seen and examined at bedside. He is tolerating HD. - Current Medication List Current Medications: Active Medications Acetaminophen (Tylenol -) 1,000 mg PO Q8H PRN PRN Reason: PAIN LEVEL 4 - 6 Last Admin: 02/15/19 18:43 Dose: 1,000 mg Allopurinol (Zyloprim -) 100 mg PO DAILY [facility] Last Admin: 02/17/19 10:10 Dose: 100 mg Atorvastatin Calcium (Lipitor -) 40 mg PO HS [facility] Last Admin: 02/16/19 21:55 Dose: Not Given Carvedilol (Coreg -) 25 mg PO BID [facility] Last Admin: 02/17/19 10:10 Dose: 25 mg Nifedipine (Procardia Xl -) 30 mg PO DAILY [facility] Last Admin: 02/17/19 10:10 Dose: 30 mg Pantoprazole Sodium (Protonix -) 40 mg PO DAILY [facility] Last Admin: 02/17/19 10:10 Dose: 40 mg Sertraline HCl (Zoloft -) 50 mg PO DAILY [facility] Last Admin: 02/17/19 10:10 Dose: 50 mg Sevelamer Carbonate (Renvela -) 800 mg PO TIDCM [facility] Last Admin: 02/17/19 10:11 Dose: 800 mg - Objective Vital Signs: Vital Signs Temperature 97.9 F 02/17/19 05:11 Pulse Rate 109 H 02/17/19 05:11 Respiratory Rate 20 02/17/19 05:11 Blood Pressure 104/75 02/17/19 05:11 O2 Sat by Pulse Oximetry (%) 100 02/16/19 21:03 Constitutional: Yes: Calm Eyes: Yes: Conjunctiva Clear HENT: Yes: Atraumatic Neck: Yes: Supple Cardiovascular: Yes: S1, S2 Respiratory: Yes: CTA Bilaterally Gastrointestinal: Yes: Soft Genitourinary: Yes: WNL Musculoskeletal: Yes: WNL Edema: No Neurological: Yes: Oriented Psychiatric: Yes: Oriented Labs: CBC, BMP 02/15/19 08:30 02/15/19 08:30 Problem List - Problems (1) ESRD needing dialysis Code(s): N18.6 - END STAGE RENAL DISEASE; Z99.2 - DEPENDENCE ON RENAL DIALYSIS (2) Hyperkalemia Code(s): E87.5 - HYPERKALEMIA (3) Type 2 diabetes mellitus Code(s): E11.9 - TYPE 2 DIABETES MELLITUS WITHOUT COMPLICATIONS Qualifiers: Diabetes mellitus custodial insulin use: unspecified custodial insulin use status Diabetes mellitus complication status: with unspecified complications Qualified Code(s): E11.8 - Type 2 diabetes mellitus with unspecified complications Assessment/Plan Current Medications Generic Name Dose Route Start Last Admin Trade Name Freq PRN Reason Stop Dose Admin Acetaminophen 1,000 mg 02/15/19 18:30 02/15/19 18:43 Tylenol - PO 1,000 mg Q8H PRN Administration PAIN LEVEL 4 - 6 Allopurinol 100 mg 02/08/19 10:00 02/17/19 10:10 Zyloprim - PO 100 mg DAILY [facility] Administration Atorvastatin Calcium 40 mg 02/07/19 22:00 02/16/19 21:55 Lipitor - PO Not Given HS [facility]ONALD Carvedilol 25 mg 02/07/19 22:00 02/17/19 10:10 Coreg - PO 25 mg BID [facility] Administration Nifedipine 30 mg 02/16/19 15:27 02/17/19 10:10 Procardia Xl - PO 30 mg DAILY [facility] Administration Pantoprazole Sodium 40 mg 02/08/19 10:00 02/17/19 10:10 Protonix - PO 40 mg DAILY [facility] Administration Sertraline HCl 50 mg 02/08/19 11:30 02/17/19 10:10 Zoloft - PO 50 mg DAILY [facility] Administration Sevelamer Carbonate 800 mg 02/08/19 08:00 02/17/19 10:11 Renvela - PO 800 mg TIDCM [facility] Administration Impression 1. ESRD 2. CKD 3. gout 4. HTN 5. CHF 6. DM 7. hx bipolar 8. MOLLY 9. non compliance Plan - HD today - d/c procardia as bp is low - monitor bp on coreg - mental status is improved - renal diet - cont nepro - epogen for anemia
--- NOTE | 2019-02-17 12:52 | PN ---
Progress Note (short form) - Note Progress Note: no distress feels well Vital Signs - 24 hr 02/16/19 02/16/19 02/16/19 13:41 18:09 21:03 Temperature 98 F 97.9 F 97.7 F Pulse Rate 113 H 99 H 104 H Respiratory 20 18 20 Rate Blood Pressure 87/62 L 89/72 L 117/75 O2 Sat by Pulse 100 Oximetry (%) 02/17/19 02/17/19 02/17/19 05:11 12:15 12:20 Temperature 97.9 F 98.2 F Pulse Rate 109 H 49 L 99 H Respiratory 20 18 18 Rate Blood Pressure 104/75 92/60 102/67 O2 Sat by Pulse Oximetry (%) Current Medications Generic Name Dose Route Start Last Admin Trade Name Freq PRN Reason Stop Dose Admin Acetaminophen 1,000 mg 02/15/19 18:30 02/15/19 18:43 Tylenol - PO 1,000 mg Q8H PRN Administration PAIN LEVEL 4 - 6 Allopurinol 100 mg 02/08/19 10:00 02/17/19 10:10 Zyloprim - PO 100 mg DAILY [facility] Administration Atorvastatin Calcium 40 mg 02/07/19 22:00 02/16/19 21:55 Lipitor - PO Not Given HS [facility]ON[facility]D Carvedilol 25 mg 02/07/19 22:00 02/17/19 10:10 Coreg - PO 25 mg BID [facility] Administration Pantoprazole Sodium 40 mg 02/08/19 10:00 02/17/19 10:10 Protonix - PO 40 mg DAILY [facility] Administration Sertraline HCl 50 mg 02/08/19 11:30 02/17/19 10:10 Zoloft - PO 50 mg DAILY [facility] Administration Sevelamer Carbonate 800 mg 02/08/19 08:00 02/17/19 10:11 Renvela - PO 800 mg TIDCM [facility] Administration Laboratory Results - last 24 hr 02/13/19 02/17/19 15:30 11:17 POC Glucometer 111 Blood Type A POSITIVE Antibody Screen Negative Crossmatch See Detail S1 S2 RRR No JVD Lungs decreased Abd- soft, NT no edema PLAN s/p PRBC had HD psych eval noted--pt has capacity continue Zoloft dc planning to rehab with HD-- pt agreeing to HD -->dc once bed available appeals process for discharge Problem List - Problems (1) ESRD needing dialysis Code(s): N18.6 - END STAGE RENAL DISEASE; Z99.2 - DEPENDENCE ON RENAL DIALYSIS (2) Hyperkalemia Code(s): E87.5 - HYPERKALEMIA (3) Hypertension Code(s): I10 - ESSENTIAL (PRIMARY) HYPERTENSION Qualifiers: Hypertension type: unspecified Qualified Code(s): I10 - Essential (primary ) hypertension (4) Type 2 diabetes mellitus Code(s): E11.9 - TYPE 2 DIABETES MELLITUS WITHOUT COMPLICATIONS Qualifiers: Diabetes mellitus intermediate insulin use: unspecified intermediate insulin use status Diabetes mellitus complication status: with unspecified complications Qualified Code(s): E11.8 - Type 2 diabetes mellitus with unspecified complications
[2019-02-17] MEDS: ATORVASTATIN CA 40 MG TABLET (FP) PO SCH (21:57)
[2019-02-18] MEDS: SEVELAMER CARBONATE 800 MG TAB (FP) PO SCH ×3 (09:03→18:28)
[2019-02-18] MEDS: SERTRALINE HCL 50 MG TABLET (FP) PO SCH (09:04)
[2019-02-18] MEDS: PANTOPRAZOLE 40 MG TABLET (FP) PO SCH (09:04)
[2019-02-18] MEDS: CARVEDILOL 25 MG TABLET (FP) PO SCH ×2 (09:04→21:44)
[2019-02-18] MEDS: ALLOPURINOL 100 MG TABLET (FP) PO SCH (09:04)
--- NOTE | 2019-02-18 09:33 | PN ---
Progress Note, Physician History of Present Illness: no new issues - Current Medication List Current Medications: Active Medications Acetaminophen (Tylenol -) 1,000 mg PO Q8H PRN PRN Reason: PAIN LEVEL 4 - 6 Last Admin: 02/15/19 18:43 Dose: 1,000 mg Allopurinol (Zyloprim -) 100 mg PO DAILY [facility] Last Admin: 02/18/19 09:04 Dose: Not Given Atorvastatin Calcium (Lipitor -) 40 mg PO HS [facility] Last Admin: 02/17/19 21:57 Dose: 40 mg Carvedilol (Coreg -) 25 mg PO BID [facility] Last Admin: 02/18/19 09:04 Dose: Not Given Pantoprazole Sodium (Protonix -) 40 mg PO DAILY [facility] Last Admin: 02/18/19 09:04 Dose: Not Given Sertraline HCl (Zoloft -) 50 mg PO DAILY [facility] Last Admin: 02/18/19 09:04 Dose: Not Given Sevelamer Carbonate (Renvela -) 800 mg PO TIDCM [facility] Last Admin: 02/18/19 09:03 Dose: Not Given - Objective Vital Signs: Vital Signs Temperature 98.6 F 02/18/19 06:00 Pulse Rate 72 02/18/19 06:00 Respiratory Rate 20 02/18/19 06:00 Blood Pressure 87/60 L 02/18/19 06:00 O2 Sat by Pulse Oximetry (%) 100 02/17/19 22:00 Constitutional: Yes: No Distress, Calm Cardiovascular: Yes: S1, S2 Respiratory: Yes: Regular, CTA Bilaterally Gastrointestinal: Yes: Normal Bowel Sounds, Soft Musculoskeletal: Yes: WNL Extremities: Yes: WNL Neurological: Yes: Alert Psychiatric: Yes: Alert Labs: CBC, BMP 02/15/19 08:30 02/15/19 08:30 Assessment/Plan Problem List - Problems (1) ESRD needing dialysis Code(s): N18.6 - END STAGE RENAL DISEASE; Z99.2 - DEPENDENCE ON RENAL DIALYSIS (2) Hyperkalemia Code(s): E87.5 - HYPERKALEMIA (3) Hypertension Code(s): I10 - ESSENTIAL (PRIMARY) HYPERTENSION Qualifiers: Hypertension type: unspecified Qualified Code(s): I10 - Essential (primary ) hypertension (4) Type 2 diabetes mellitus Code(s): E11.9 - TYPE 2 DIABETES MELLITUS WITHOUT COMPLICATIONS Qualifiers: Diabetes mellitus jail insulin use: unspecified jail insulin use status Diabetes mellitus complication status: with unspecified complications Qualified Code(s): E11.8 - Type 2 diabetes mellitus with unspecified complications plan continue to monitor the patient wound care dialysis rest as per the team
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
[2019-02-18] MEDS: ATORVASTATIN CA 40 MG TABLET (FP) PO SCH (21:44)
[2019-02-19 05:59] VITALS: TEMP 98.1
[2019-02-19] MEDS: SEVELAMER CARBONATE 800 MG TAB (FP) PO SCH (08:16)
[2019-02-19] MEDS: PANTOPRAZOLE 40 MG TABLET (FP) PO SCH (09:05)
[2019-02-19] MEDS: CARVEDILOL 25 MG TABLET (FP) PO SCH (09:05)
[2019-02-19] MEDS: ALLOPURINOL 100 MG TABLET (FP) PO SCH (09:05)
[2019-02-19] MEDS: SERTRALINE HCL 50 MG TABLET (FP) PO SCH (09:05)
[2019-02-19 09:48] VITALS: BP 88/44; PULSE 101
== END 2019-02-19 10:49 | DRG 682 ==
LOC: JER 17:48 → JERBED 20:03 → J7W 02-07 12:57
PROVIDERS: ADMIT Internal Medicine; ATTEND Internal Medicine
PROC: 5A1D70Z Performance of Urinary Filtration, Intermittent, Less than 6 Hours Per Day (ICD-10-PCS; principal; 2019-02-08)
PROC: 5A1D70Z Performance of Urinary Filtration, Intermittent, Less than 6 Hours Per Day (ICD-10-PCS; 2019-02-10)
PROC: 5A1D70Z Performance of Urinary Filtration, Intermittent, Less than 6 Hours Per Day (ICD-10-PCS; 2019-02-13)
PROC: 5A1D70Z Performance of Urinary Filtration, Intermittent, Less than 6 Hours Per Day (ICD-10-PCS; 2019-02-15)
PROC: 5A1D70Z Performance of Urinary Filtration, Intermittent, Less than 6 Hours Per Day (ICD-10-PCS; 2019-02-17)
DX: N17.9 Acute kidney failure, unspecified (principal); I50.31 Acute diastolic (congestive) heart failure; I13.2 Hypertensive heart and chronic kidney disease with heart failure and with stage 5 chronic kidney disease, or end stage renal disease; F31.89 Other bipolar disorder; G93.49 Other encephalopathy; E87.5 Hyperkalemia; N18.6 End stage renal disease; E11.22 Type 2 diabetes mellitus with diabetic chronic kidney disease; E78.5 Hyperlipidemia, unspecified; M10.9 Gout, unspecified; F25.9 Schizoaffective disorder, unspecified; R73.03 Prediabetes; D72.829 Elevated white blood cell count, unspecified; L89.322 Pressure ulcer of left buttock, stage 2; D63.1 Anemia in chronic kidney disease; E66.9 Obesity, unspecified; Z68.39 Body mass index [BMI] 39.0-39.9, adult; G47.33 Obstructive sleep apnea (adult) (pediatric); F91.3 Oppositional defiant disorder; F32.9 Major depressive disorder, single episode, unspecified; D64.9 Anemia, unspecified; Z91.15 Patient's noncompliance with renal dialysis; Z99.2 Dependence on renal dialysis; Z91.14 Patient's other noncompliance with medication regimen
CPT/HCPCS: 36415; 36430; 36511; 71045-TC-FY; 80048; 80053; 82565; 82962; 83735; 84100; 84520; 85025; 85027; 86850; 86900; 86901; 86922; 93005; 93010; 97161-GP; 99284-25; J0885; P9038; P9058

== ENCOUNTER 2019-02-25 16:12 | Inpatient (IN) | payer OTHER ==
--- NOTE | 2019-02-25 17:14 | PDOC ---
Documentation entered by Lorenzo Block SCRIBE, acting as scribe for Mukund Brennan MD. Mukund Brennan MD: This documentation has been prepared by the Umair foley Collisia, SCRIBE, under my direction and personally reviewed by me in its entirety. I confirm that the documentation accurately reflects all work, treatment, procedures, and medical decision making performed by me. History of Present Illness - General Stated Complaint: HIGH POTASSIUM Time Seen by Provider: 02/25/19 16:51 History Source: Patient Exam Limitations: No Limitations - History of Present Illness Initial Comments: 02/25/19 17:34 The patient is a 58 year old male with a significant past medical history of diastolic CHF, ESRD (/ HD) HTN, HLD, DM2, and gout , who presents to the emergency department with sacral pain. As per the patient he has a healed sacral ulcer and at his facility he receives dialysis sitting upward which worsens the pain thus, reported to the ED for dialysis while lying supine. He denies any recent fever, chills, headache, headache,dizziness, nausea, vomiting, diarrhea, constipation, chest pain, shortness of breath, dysuria, frequency, urgency or hematuria. The patient denies any other complaints. Past History - Past Medical History Allergies/Adverse Reactions: Allergies Allergy/AdvReac Type Severity Reaction Status Date / Time No Known Allergies Allergy Verified 02/06/19 18:28 Home Medications: Ambulatory Orders Allopurinol [Zyloprim -] 100 mg PO DAILY 12/24/18 Atorvastatin Ca [Lipitor] 40 mg PO HS 12/24/18 Carvedilol 25 mg PO BID 12/24/18 Hydralazine HCl 100 mg PO TID 12/24/18 Nifedipine ER [Procardia XL -] 60 mg PO DAILY 12/24/18 Pantoprazole Sodium [Protonix] 40 mg PO DAILY 12/24/18 Sevelamer Carbonate 800 mg PO TID 12/24/18 Tramadol HCl 50 mg PO TID 12/24/18 Sertraline HCl [Zoloft -] 50 mg PO DAILY #30 tablet 02/12/19 Acetaminophen [Tylenol] 650 mg PO QID PRN 02/25/19 Anemia: No Cardiac Disorders: Yes (chf) COPD: No CHF: Yes Diabetes: Yes (borderline) Disorders: Yes (ESRD) HTN: Yes Hypercholesterolemia: Yes Psychiatric Problems: Yes (bipolar) - Immunization History Td Vaccination: Yes TDAP Vaccination: Yes Immunization Up to Date: Yes - Suicide/Smoking/Psychosocial Hx Smoking History: Never smoked Have you smoked in the past 12 months: No Number of Cigarettes Smoked Daily: 0 Hx Alcohol Use: No Drug/Substance Use Hx: No Substance Use Type: None Hx Substance Use Treatment: No *Physical Exam - Physical Exam Comments: 02/25/19 17:25 GENERAL: Awake, alert, and fully oriented, in no acute distress HEAD: No signs of trauma EYES: EOMI, sclera anicteric, conjunctiva clear ENT: Auricles normal inspection, hearing grossly normal, nares patent NECK: Normal ROM, supple, LUNGS: Breath sounds equal, clear to auscultation bilaterally. No wheezes, and no crackles HEART: Regular rate and rhythm, normal S1 and S2, no murmurs, rubs or gallops ABDOMEN: Soft, nontender, No guarding, no rebound. No masses NEUROLOGICAL: Cranial nerves II through XII grossly intact. Normal speech, Heart Score/ECG Review #1 ECG reviewed & interpreted by me at: 16:55 02/25/19 17:26 NSR 100, low voltage QRS, no std/jeison, normal axis, normal intervals, QTC 474 msec ED Treatment Course - LABORATORY CBC & Chemistry Diagram: 02/25/19 17:11 Medical Decision Making - Medical Decision Making 02/25/19 17:24 A portion of this note was documented by scribe services under my direction. I have reviewed the details of the note, within reason, and agree with the documentation with the following case summary and management plan written by me. Patient treated in the ED. Nursing notes are reviewed and incorporated into the medical decision-making. Vital signs reviewed. Peripheral IV access obtained by the nurse, laboratory studies are drawn and sent, reviewed and interpreted by myself. 58-year-old male with history of congestive heart failure, diabetes, hypertension, hyperlipidemia, bipolar disorder presents with refusal of dialysis. Patient typically receives dialysis Wednesday, , Wednesday. Last dialysis 2 days ago. The patient has no complaints. The patient has at times intermittently refused dialysis in the past. He is not feeling suicidal but does report that there are times she does not want to dialysis. At the facility , the patient refused also sent the patient to the ER. I spent a lengthy amount of time with the patient. The patient finally ultimately agreed to obtain blood work. I have spoken to patient's mat machine tender Dr. Raphael. He requested that we reach out to once we obtain blood work to discuss disposition. 02/25/19 18:58 CBC, BMP 02/25/19 17:11 We had attempted numerous times trying to get a CBC, but was unsuccesful. I did speak to Dr. Raphael. Dr. Raphael will dialyze the patient and obtain the CBC via dialysis. Will admit the patient. 02/25/19 19:59 Case discussed with Marianela Lou. Pt accepted to med/surg admission, admitted under Dr. Kg Shah Case discussed in detail with admitting physician including history, physical exam and ancillary studies. Admitting physician has assumed care for the patient, will follow all pending diagnostics and will complete the evaluation and treatment. *DC/Admit/Observation/Transfer Diagnosis at time of Disposition: ESRD needing dialysis - Discharge Dispostion Condition at time of disposition: Stable Decision to Admit order: Yes - Referrals - Patient Instructions - Post Discharge Activity
[2019-02-25 18:30] LABS: ALBUMIN 2.5 g/dl (3.4-5.0); BILIRUBIN,TOTAL 0.4 mg/dL (0.2-1); BLOOD UREA NITROGEN 74.4 mg/dL (7-18); CALCIUM 8.9 mg/dL (8.5-10.1); MAGNESIUM 2.7 mg/dL (1.8-2.4); PHOSPHOROUS 5.8 mg/dL (2.5-4.9); TOT PROT 8.5 g/dl (6.4-8.2)
[2019-02-25 18:32] LABS: CREATININE 19.1 mg/dL (0.55-1.3); POTASSIUM 6.5 mmol/L (3.5-5.1)
--- NOTE | 2019-02-25 20:04 | HP ---
Admitting History and Physical - Primary Care Physician PCP: Carmen Roman - Admission Chief Complaint: Missed Dialysis History of Present Illness: This is a 58 y/o man with a PMHx of ESRD (, , ), HTN, HLD, Bipolar Disorder. Who presents to the ED for missed dialysis. Patient reports not wanting to go to dialysis today because his foot hurts. Patient denies SOB, CP, palpitations, AP, N/V/D, constipation. History Source: Patient, Medical Record Limitations to Obtaining History: Poor Historian - Past Medical History Cardiovascular: Yes: CHF, HTN, Hyperlipdemia Pulmonary: Yes: COPD Renal/: Yes: Renal Failure, Renal Inusuff, Hemodialysis Psych: Yes: Bipolar, Schizophrenia Rheumatology: Yes: Gout - Smoking History Smoking history: Never smoked Have you smoked in the past 12 months: No Aproximately how many cigarettes per day: 0 - Alcohol/Substance Use Hx Alcohol Use: No - Social History ADL: Support Services Occupation: disability History of Recent Travel: No Home Medications - Allergies Allergies/Adverse Reactions: Allergies Allergy/AdvReac Type Severity Reaction Status Date / Time No Known Allergies Allergy Verified 02/06/19 18:28 - Home Medications Home Medications: Ambulatory Orders Allopurinol [Zyloprim -] 100 mg PO DAILY 12/24/18 Atorvastatin Ca [Lipitor] 40 mg PO HS 12/24/18 Carvedilol 25 mg PO BID 12/24/18 Hydralazine HCl 100 mg PO TID 12/24/18 Nifedipine ER [Procardia XL -] 60 mg PO DAILY 12/24/18 Pantoprazole Sodium [Protonix] 40 mg PO DAILY 12/24/18 Sevelamer Carbonate 800 mg PO TID 12/24/18 Tramadol HCl 50 mg PO TID 12/24/18 Sertraline HCl [Zoloft -] 50 mg PO DAILY #30 tablet 02/12/19 Acetaminophen [Tylenol] 650 mg PO QID PRN 02/25/19 Family Disease History - Family Disease History Family Disease History: Heart Disease: Father (HTN) Review of Systems - Review of Systems Constitutional: reports: No Symptoms Eyes: reports: No Symptoms HENT: reports: No Symptoms Neck: reports: No Symptoms Cardiovascular: reports: No Symptoms Respiratory: reports: No Symptoms Gastrointestinal: reports: No Symptoms Breasts: reports: No Symptoms Reported Musculoskeletal: reports: Extremity Pain (right foot) Integumentary: reports: No Symptoms Neurological: reports: No Symptoms Endocrine: reports: No Symptoms Hematology/Lymphatic: reports: No Symptoms Psychiatric: reports: No Symptoms Pain Intensity: 4 Physical Examination Vital Signs: Vital Signs Temperature 98.7 F 02/25/19 17:20 Pulse Rate 102 H 02/25/19 17:20 Respiratory Rate 18 02/25/19 17:20 Blood Pressure 109/84 02/25/19 17:20 O2 Sat by Pulse Oximetry (%) 100 02/25/19 17:20 Constitutional: Yes: Well Nourished, No Distress, Calm, Obese Eyes: Yes: WNL, Conjunctiva Clear, EOM Intact, PERRL HENT: Yes: WNL, Atraumatic, Normocephalic Neck: Yes: WNL, Supple, Trachea Midline Cardiovascular: Yes: WNL, Regular Rate and Rhythm, S1, S2 Respiratory: Yes: WNL, Regular, CTA Bilaterally Gastrointestinal: Yes: WNL, Normal Bowel Sounds, Soft, Abdomen, Obese Breast(s): Yes: WNL Musculoskeletal: Yes: WNL Extremities: Yes: WNL Edema: No Peripheral Pulses WNL: Yes Neurological: Yes: WNL, Alert, Oriented, Cran Nerves II-XII Intact ...Motor Strength: WNL Psychiatric: Yes: WNL, Alert, Oriented Labs: CBC, BMP 02/25/19 17:11 Laboratory Results - last 24 hr 02/25/19 02/25/19 17:11 20:20 WBC 8.4 RBC 3.50 L Hgb 9.1 L Hct 28.6 L MCV 81.6 MCH 25.9 MCHC 31.7 L RDW 20.3 H Plt Count 328 D MPV 7.8 Absolute Neuts (auto) 5.6 Neutrophils % 67.0 Lymphocytes % 13.9 D Monocytes % 13.7 H Eosinophils % 5.0 H D Basophils % 0.4 Nucleated RBC % 0 Platelet Estimate Adequate Platelet Comment Slide reviewed Sodium 134 L Potassium 6.5 H* Chloride 95 L Carbon Dioxide 19 L Anion Gap 20 H BUN 74.4 H Creatinine 19.1 H* Est GFR (CKD-EPI)AfAm 2.74 Est GFR (CKD-EPI)NonAf 2.37 Random Glucose 66 L Calcium 8.9 Phosphorus 5.8 H Magnesium 2.7 H Total Bilirubin 0.4 AST 31 ALT 13 Alkaline Phosphatase 133 H Total Protein 8.5 H Albumin 2.5 L Intake & Output 02/22/19 02/23/19 02/24/19 02/25/19 23:59 23:59 23:59 23:59 Weight 129.274 kg Imaging - Results EKG: Image Reviewed Problem List - Problems (1) ESRD needing dialysis Assessment/Plan: HD- , , Appreciate Nephrology consult for HD management Avoid Nephrotoxic drugs Monitor CBC, BMP Monitor vitals Code(s): N18.6 - END STAGE RENAL DISEASE; Z99.2 - DEPENDENCE ON RENAL DIALYSIS (2) Hyperkalemia Assessment/Plan: Likely secondary to missed dialysis EKG reviewed no peaked Ts K 3.6-improved post dialysis Will continue to monitor BMP Code(s): E87.5 - HYPERKALEMIA (3) Bipolar 1 disorder Assessment/Plan: Continue Zoloft Monitor QTc Code(s): F31.9 - BIPOLAR DISORDER, UNSPECIFIED (4) Hypertension Assessment/Plan: Stable Monitor BP Continue home meds with parameters Code(s): I10 - ESSENTIAL (PRIMARY) HYPERTENSION Qualifiers: Hypertension type: unspecified Qualified Code(s): I10 - Essential (primary ) hypertension (5) Type 2 diabetes mellitus Assessment/Plan: stable BGMs No current meds Consider ISS Code(s): E11.9 - TYPE 2 DIABETES MELLITUS WITHOUT COMPLICATIONS Qualifiers: Diabetes mellitus intermediate insulin use: 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 Diabetes mellitus complication status: with unspecified complications (6) Chronic diastolic heart failure Assessment/Plan: stable no acute flare Patient denies SOB Dialysis tonight Code(s): I50.32 - CHRONIC DIASTOLIC (CONGESTIVE) HEART FAILURE (7) Gout Assessment/Plan: Stable Continue home med Code(s): M10.9 - GOUT, UNSPECIFIED (8) Morbid (severe) obesity due to excess calories Assessment/Plan: Low Calorie Low Carb Diet Consider RD eval Code(s): E66.01 - MORBID (SEVERE) OBESITY DUE TO EXCESS CALORIES (9) MOLLY (obstructive sleep apnea) Assessment/Plan: CPAP hs Code(s): G47.33 - OBSTRUCTIVE SLEEP APNEA (ADULT) (PEDIATRIC) Assessment/Plan This is a 58 y/o man with a PMHx of Bipolar Disorder, ESRD (, , ). Admitted for Hyperkalemia, Metabolic Syndrome secondary to ESRD requiring emergent Dialysis for further evaluation of their emergent condition. Plan: See Problem List FEN Fluid Restriction 1L Replete lytes prn Renal Diet DVT ppx OOB SCDs Heparin SQ Dispo: Requires Inpatient Care Visit type - Emergency Visit Emergency Visit: Yes ED Registration Date: 02/25/19 Care time: The patient presented to the Emergency Department on the above date and was hospitalized for further evaluation of their emergent condition. - New Patient This patient is new to me today: Yes Date on this admission: 02/25/19 - Critical Care Critical Care patient: No
[2019-02-25 20:40] LABS: BASO % 0.4 % (0-2.0); HEMATOCRIT 28.6 % (35.4-49); HEMOGLOBIN 9.1 GM/dL (11.7-16.9); LYMPH % 13.9 % (8-40); MCH 25.9 pg (25.7-33.7); MCHC 31.7 g/dl (32.0-35.9); MEAN CELL VOLUME 81.6 fl (80-96); MEAN PLT VOLUME 7.8 fl (7.5-11.1); MONO % 13.7 % (3.8-10.2); RDW 20.3 % (11.9-15.9); WHITE BLOOD COUNT 8.4 K/mm3 (4.0-10.0)
--- NOTE | 2019-02-25 20:52 | CONSULT ---
Consult Consult Specialty:: Nephrology Reason for Consultation:: ESRD - History of Present Illness Chief Complaint: sent in for refusing HD History of Present Illness: Pt is a 58 year old male with pmhx of ESRD, non compliance, chf, htn, hld, gout , and dm who was sent to the ER for refusing HD. He says that he has sacral pain from his sacral ulcer as well. He denies shortness of breath. He denies fevers or chills. He is awake and alert. He agrees to HD here. He denies chest pain or palpitations. He denies hematuria or dysuria. He has appetite and is asking for food. I was called to see him as a stat consult for urgent HD in ER. - History Source History Provided By: Patient, Medical Record - Past Medical History Cardio/Vascular: Yes: CHF, HTN, Hyperlipdemia Pulmonary: Yes: COPD Renal/: Yes: Renal Failure, Renal Inusuff, Hemodialysis Psych: Yes: Bipolar, Schizophrenia Rheumatology: Yes: Gout Additional Medical History: obesity, non compliance - Alcohol/Substance Use Hx Alcohol Use: No - Smoking History Smoking history: Never smoked Have you smoked in the past 12 months: No Aproximately how many cigarettes per day: 0 - Social History Usual Living Arrangement: Fdc ADL: Support Services Occupation: disability History of Recent Travel: No Home Medications - Allergies Allergies/Adverse Reactions: Allergies Allergy/AdvReac Type Severity Reaction Status Date / Time No Known Allergies Allergy Verified 02/06/19 18:28 - Home Medications Home Medications: Ambulatory Orders Allopurinol [Zyloprim -] 100 mg PO DAILY 12/24/18 Atorvastatin Ca [Lipitor] 40 mg PO HS 12/24/18 Carvedilol 25 mg PO BID 12/24/18 Hydralazine HCl 100 mg PO TID 12/24/18 Nifedipine ER [Procardia XL -] 60 mg PO DAILY 12/24/18 Pantoprazole Sodium [Protonix] 40 mg PO DAILY 12/24/18 Sevelamer Carbonate 800 mg PO TID 12/24/18 Tramadol HCl 50 mg PO TID 12/24/18 Sertraline HCl [Zoloft -] 50 mg PO DAILY #30 tablet 02/12/19 Acetaminophen [Tylenol] 650 mg PO QID PRN 02/25/19 Family Disease History - Family Disease History Family Disease History: Heart Disease: Father (HTN) Review of Systems - Review of Systems Constitutional: reports: Malaise Eyes: reports: No Symptoms HENT: reports: No Symptoms Neck: reports: No Symptoms Cardiovascular: reports: No Symptoms Respiratory: reports: No Symptoms Gastrointestinal: reports: No Symptoms Genitourinary: reports: No Symptoms Musculoskeletal: reports: Other (sacral ulcer pain) Integumentary: reports: No Symptoms Neurological: reports: No Symptoms Endocrine: reports: No Symptoms Hematology/Lymphatic: reports: No Symptoms Psychiatric: reports: No Symptoms Physical Exam Vital Signs: Vital Signs Temperature 98.7 F 02/25/19 17:20 Pulse Rate 97 H 02/25/19 20:05 Respiratory Rate 21 H 02/25/19 20:05 Blood Pressure 115/90 02/25/19 20:05 O2 Sat by Pulse Oximetry (%) 100 02/25/19 20:05 Constitutional: Yes: Calm Eyes: Yes: Conjunctiva Clear HENT: Yes: Atraumatic Neck: Yes: Supple Cardiovascular: Yes: S1, S2 Respiratory: Yes: Regular Gastrointestinal: Yes: Soft, Abdomen, Obese Renal/: Yes: WNL Musculoskeletal: Yes: WNL Edema: Yes Edema: LLE: Trace, RLE: Trace Neurological: Yes: Oriented Psychiatric: Yes: Oriented Labs: CBC, BMP 02/25/19 20:20 02/25/19 17:11 Laboratory Tests 02/25/19 17:11 Sodium 134 L Potassium 6.5 H* Chloride 95 L Carbon Dioxide 19 L BUN 74.4 H Creatinine 19.1 H* Problem List - Problems (1) Anemia Code(s): D64.9 - ANEMIA, UNSPECIFIED (2) Bipolar 1 disorder Code(s): F31.9 - BIPOLAR DISORDER, UNSPECIFIED (3) ESRD needing dialysis Code(s): N18.6 - END STAGE RENAL DISEASE; Z99.2 - DEPENDENCE ON RENAL DIALYSIS (4) Hyperkalemia Code(s): E87.5 - HYPERKALEMIA Assessment/Plan Impression 1. ESRD 2. hyperkalemia 3. gout 4. HTN 5. CHF 6. DM 7. hx bipolar 8. MOLLY 9. non compliance Plan - will arrange for urgent bedside dialysis - monitor bp - resume home meds - epogen for anemia - will draw cbc for er - check post hd potassium - will treat potassium with hd - discussed compliance with pt - will need evaluation for his sacral ulcer as he says it hurts him when he goes to HD as he is sitting for several hours - procardia and hydralazine held last admission secondary to hypotension - renal diet - cont [email or web address]
[2019-02-25 21:52] LABS: PLATELET COUNT 328 K/MM3 (134-434)
[2019-02-25 21:53] LABS: PLATELET ESTIMATE ADEQUATE
[2019-02-25] MEDS ORDERED: EPOETIN ALFA 10,000 UNIT/1 ML VIAL IVPUSH ONE (22:00)
[2019-02-26 00:19] LABS: BLOOD UREA NITROGEN 19.6 mg/dL (7-18); CALCIUM 8.7 mg/dL (8.5-10.1); CREATININE 5.9 mg/dL (0.55-1.3); POTASSIUM 3.6 mmol/L (3.5-5.1)
[2019-02-26] MEDS ORDERED: traMADol HCL 50 MG TABLET PO PRN (01:02)
[2019-02-26] MEDS ORDERED: ACETAMINOPHEN 325 MG TABLET (FP) PO PRN (01:03)
[2019-02-26 04:33] VITALS: BMI 37.0
[2019-02-26] MEDS: hydrALAZINE HCL 50 MG TABLET (FP) PO SCH ×4 (05:37→21:09)
[2019-02-26] MEDS ORDERED: hydrALAZINE HCL 50 MG TABLET (FP) PO SCH (06:00)
[2019-02-26 06:43] LABS: BASO % 0.8 % (0-2.0); EOS % 1.4 % (0-4.5); HEMATOCRIT 31.5 % (35.4-49); HEMOGLOBIN 10.1 GM/dL (11.7-16.9); LYMPH % 14.2 % (8-40); MCH 25.6 pg (25.7-33.7); MEAN CELL VOLUME 80.2 fl (80-96); MEAN PLT VOLUME 8.1 fl (7.5-11.1); MONO % 14.1 % (3.8-10.2); NEUT % 69.5 % (42.8-82.8); RBC 3.93 M/mm3 (4.00-5.60); RDW 20.2 % (11.9-15.9); WHITE BLOOD COUNT 7.9 K/mm3 (4.0-10.0)
[2019-02-26 07:21] LABS: BLOOD UREA NITROGEN 29.6 mg/dL (7-18); MAGNESIUM 2.3 mg/dL (1.8-2.4); PHOSPHOROUS 4.5 mg/dL (2.5-4.9); POTASSIUM 4.8 mmol/L (3.5-5.1)
[2019-02-26 07:43] LABS: CREATININE 10.3 mg/dL (0.55-1.3)
[2019-02-26] MEDS: SEVELAMER CARBONATE 800 MG TAB (FP) PO SCH ×4 (08:24→18:20)
--- NOTE | 2019-02-26 08:30 | EKG ---
Test Reason : Blood Pressure : / mmHG Vent. Rate : 100 BPM Atrial Rate : 100 BPM P-R Int : 174 ms QRS Dur : 076 ms QT Int : 368 ms P-R-T Axes : 057 013 064 degrees QTc Int : 474 ms POOR DATA QUALITY, INTERPRETATION MAY BE ADVERSELY AFFECTED NORMAL SINUS RHYTHM LOW VOLTAGE QRS CANNOT RULE OUT ANTERIOR INFARCT , AGE UNDETERMINED ABNORMAL ECG WHEN COMPARED WITH ECG OF 06-FEB-2019 18:08, NO SIGNIFICANT CHANGE WAS FOUND Confirmed by CARMINE BLANCO MD ([id number]) on 02/26/2019 8:29:47 AM Referred By: Confirmed By:CARMINE BLANCO MD
[2019-02-26] MEDS ORDERED: NIFEdipine E.R 60 MG TABLET (UD) PO SCH (10:00)
[2019-02-26] MEDS: ALLOPURINOL 100 MG TABLET (FP) PO SCH (10:50)
[2019-02-26] MEDS: CARVEDILOL 25 MG TABLET (FP) PO SCH ×2 (10:50→21:09)
[2019-02-26] MEDS: NIFEdipine E.R 60 MG TABLET (UD) PO SCH (10:51)
[2019-02-26] MEDS: SERTRALINE HCL 50 MG TABLET (FP) PO SCH (10:51)
[2019-02-26] MEDS: PANTOPRAZOLE 40 MG TABLET (FP) PO SCH (10:51)
--- NOTE | 2019-02-26 13:04 | PN ---
Progress Note, Physician History of Present Illness: pt seen/ examined chart reviewed compliance issues send by me from [facility] 2 to refusing dialsyis x 3 times emergent dilaysis last night Discussed with Dr. Espinoza today - Current Medication List Current Medications: Active Medications Acetaminophen (Tylenol -) 650 mg PO Q6H PRN PRN Reason: PAIN OR FEVER Allopurinol (Zyloprim -) 100 mg PO DAILY [facility] Last Admin: 02/26/19 10:50 Dose: 100 mg Atorvastatin Calcium (Lipitor -) 40 mg PO HS [facility] Carvedilol (Coreg -) 25 mg PO BID [facility] Last Admin: 02/26/19 10:50 Dose: 25 mg Hydralazine HCl (Apresoline -) 100 mg PO TID [facility] Last Admin: 02/26/19 05:37 Dose: 100 mg Nifedipine (Procardia Xl -) 60 mg PO DAILY [facility] Last Admin: 02/26/19 10:51 Dose: 60 mg Pantoprazole Sodium (Protonix -) 40 mg PO DAILY [facility] Last Admin: 02/26/19 10:51 Dose: 40 mg Sertraline HCl (Zoloft -) 50 mg PO DAILY [facility] Last Admin: 02/26/19 10:51 Dose: 50 mg Sevelamer Carbonate (Renvela -) 800 mg PO TIDCM [facility] Last Admin: 02/26/19 12:33 Dose: Not Given Tramadol HCl (Ultram -) 50 mg PO TID PRN PRN Reason: PAIN LEVEL 7 - 10 - Objective Vital Signs: Vital Signs Temperature 98.2 F 02/26/19 10:47 Pulse Rate 110 H 02/26/19 10:47 Respiratory Rate 20 02/26/19 10:47 Blood Pressure 156/74 02/26/19 10:47 O2 Sat by Pulse Oximetry (%) 98 02/25/19 23:55 Constitutional: Yes: No Distress, Calm Eyes: Yes: Conjunctiva Clear Neck: Yes: Supple Cardiovascular: Yes: Regular Rate and Rhythm Respiratory: Yes: Diminished Gastrointestinal: Yes: Soft Edema: No Integumentary: Yes: Other (sacral decubitus-- stage 2 -- no sign of infection) Neurological: Yes: WNL Psychiatric: Yes: Alert Labs: CBC, BMP 02/26/19 06:00 02/26/19 06:00 Problem List - Problems (1) Non compliance with medical treatment Code(s): Z91.19 - PATIENT'S NONCOMPLIANCE W OTH MEDICAL TREATMENT AND REGIMEN (2) ESRD needing dialysis Code(s): N18.6 - END STAGE RENAL DISEASE; Z99.2 - DEPENDENCE ON RENAL DIALYSIS (3) Bipolar 1 disorder Code(s): F31.9 - BIPOLAR DISORDER, UNSPECIFIED Assessment/Plan Discussed Dialysis compliance issues silvadine for sacral decubitus. dvt prophylaxis
[2019-02-26] MEDS ORDERED: SODIUM CHLORIDE 250 ML IV PRN (13:06)
--- NOTE | 2019-02-26 13:06 | PN ---
Progress Note, Physician History of Present Illness: Pt seen and examined at bedside. He is awake and alert. He denies shortness of breath. - Current Medication List Current Medications: Active Medications Acetaminophen (Tylenol -) 650 mg PO Q6H PRN PRN Reason: PAIN OR FEVER Allopurinol (Zyloprim -) 100 mg PO DAILY [facility] Last Admin: 02/26/19 10:50 Dose: 100 mg Atorvastatin Calcium (Lipitor -) 40 mg PO HS [facility] Carvedilol (Coreg -) 25 mg PO BID [facility] Last Admin: 02/26/19 10:50 Dose: 25 mg Hydralazine HCl (Apresoline -) 100 mg PO TID [facility] Last Admin: 02/26/19 05:37 Dose: 100 mg Nifedipine (Procardia Xl -) 60 mg PO DAILY [facility] Last Admin: 02/26/19 10:51 Dose: 60 mg Pantoprazole Sodium (Protonix -) 40 mg PO DAILY [facility] Last Admin: 02/26/19 10:51 Dose: 40 mg Sertraline HCl (Zoloft -) 50 mg PO DAILY [facility] Last Admin: 02/26/19 10:51 Dose: 50 mg Sevelamer Carbonate (Renvela -) 800 mg PO TIDCM [facility] Last Admin: 02/26/19 12:33 Dose: Not Given Silver Sulfadiazine (Silvadene -) 1 applic TP DAILY [facility] Tramadol HCl (Ultram -) 50 mg PO TID PRN PRN Reason: PAIN LEVEL 7 - 10 - Objective Vital Signs: Vital Signs Temperature 98.2 F 02/26/19 10:47 Pulse Rate 110 H 02/26/19 10:47 Respiratory Rate 20 02/26/19 10:47 Blood Pressure 156/74 02/26/19 10:47 O2 Sat by Pulse Oximetry (%) 98 02/25/19 23:55 Constitutional: Yes: Calm Eyes: Yes: Conjunctiva Clear Cardiovascular: Yes: S1, S2 Respiratory: Yes: CTA Bilaterally Gastrointestinal: Yes: Normal Bowel Sounds, Soft Genitourinary: Yes: WNL Musculoskeletal: Yes: WNL Edema: No Neurological: Yes: Oriented Psychiatric: Yes: Oriented Labs: CBC, BMP 02/26/19 06:00 02/26/19 06:00 Problem List - Problems (1) Anemia Code(s): D64.9 - ANEMIA, UNSPECIFIED (2) Bipolar 1 disorder Code(s): F31.9 - BIPOLAR DISORDER, UNSPECIFIED (3) ESRD needing dialysis Code(s): N18.6 - END STAGE RENAL DISEASE; Z99.2 - DEPENDENCE ON RENAL DIALYSIS (4) Hyperkalemia Code(s): E87.5 - HYPERKALEMIA Assessment/Plan Current Medications Generic Name Dose Route Start Last Admin Trade Name Freq PRN Reason Stop Dose Admin Acetaminophen 650 mg 02/26/19 01:03 Tylenol - PO Q6H PRN PAIN OR FEVER Allopurinol 100 mg 02/26/19 10:00 02/26/19 10:50 Zyloprim - PO 100 mg DAILY [facility] Administration Atorvastatin Calcium 40 mg 02/26/19 22:00 Lipitor - PO HS [facility] Carvedilol 25 mg 02/26/19 10:00 02/26/19 10:50 Coreg - PO 25 mg BID [facility] Administration Heparin Sodium (Porcine) 5,000 unit 02/26/19 22:00 Heparin - SQ BID [facility] Hydralazine HCl 100 mg 02/26/19 06:00 02/26/19 05:37 Apresoline - PO 100 mg TID [facility] Administration Nifedipine 60 mg 02/26/19 10:00 02/26/19 10:51 Procardia Xl - PO 60 mg DAILY [facility] Administration Pantoprazole Sodium 40 mg 02/26/19 10:00 02/26/19 10:51 Protonix - PO 40 mg DAILY [facility] Administration Sertraline HCl 50 mg 02/26/19 10:00 02/26/19 10:51 Zoloft - PO 50 mg DAILY [facility] Administration Sevelamer Carbonate 800 mg 02/26/19 08:00 02/26/19 12:33 Renvela - PO Not Given TIDCM [facility] Silver Sulfadiazine 1 applic 02/26/19 13:15 Silvadene - TP DAILY [facility] Tramadol HCl 50 mg 02/26/19 01:02 Ultram - PO TID PRN PAIN LEVEL 7 - 10 Impression 1. ESRD 2. hyperkalemia 3. gout 4. HTN 5. CHF 6. DM 7. hx bipolar 8. MOLLY 9. non compliance Plan - HD again tomorrow - pt not compliant with treatment - renal diet - monitor bp on meds - epogen for anemia - discussed with primary team
[2019-02-26] MEDS ORDERED: METOCLOPRAMIDE HCL INJECTION 10 MG/2 ML VIAL IVPUSH PRN (15:51)
[2019-02-26] MEDS: SILVER SULFADIAZINE 1% TOP CREAM 50 GM JAR TP SCH (18:19)
[2019-02-26] MEDS: HEPARIN NA (PORCINE) 5,000 UNITS/ML 1ML VIAL SQ SCH (21:09)
[2019-02-26] MEDS ORDERED: ATORVASTATIN CA 40 MG TABLET (FP) PO SCH (22:00)
[2019-02-27] MEDS: hydrALAZINE HCL 50 MG TABLET (FP) PO SCH ×2 (07:51→16:28)
[2019-02-27] MEDS: CARVEDILOL 25 MG TABLET (FP) PO SCH (10:33)
[2019-02-27] MEDS: SEVELAMER CARBONATE 800 MG TAB (FP) PO SCH ×3 (10:33→18:12)
[2019-02-27] MEDS: HEPARIN NA (PORCINE) 5,000 UNITS/ML 1ML VIAL SQ SCH (10:33)
[2019-02-27] MEDS: PANTOPRAZOLE 40 MG TABLET (FP) PO SCH (10:34)
[2019-02-27] MEDS: ALLOPURINOL 100 MG TABLET (FP) PO SCH (10:34)
[2019-02-27] MEDS: SERTRALINE HCL 50 MG TABLET (FP) PO SCH (10:34)
[2019-02-27] MEDS: NIFEdipine E.R 60 MG TABLET (UD) PO SCH (10:34)
--- NOTE | 2019-02-27 11:07 | DS ---
Physical Examination Vital Signs: Vital Signs Temperature 97.5 F L 02/27/19 06:00 Pulse Rate 110 H 02/27/19 06:00 Respiratory Rate 20 02/27/19 06:00 Blood Pressure 104/62 02/27/19 06:00 O2 Sat by Pulse Oximetry (%) 96 02/26/19 21:00 Findings/Remarks: comfortable no new issues except continue to refuse meds agreeing for dialysis Constitutional: Yes: No Distress, Calm Eyes: Yes: Conjunctiva Clear Neck: Yes: Supple Cardiovascular: Yes: Regular Rate and Rhythm Respiratory: Yes: Diminished Gastrointestinal: Yes: Soft Edema: No Labs: CBC, BMP 02/26/19 06:00 02/26/19 06:00 Discharge Summary Reason For Visit: END STAGE RENAL DISEASE NEEDING DIALYSIS Current Active Problems Non compliance with medical treatment (Acute) Hospital Course: admitted for hyperkalemina/ missing dialysis urgent dialysis arranged stable d/c today after dialysis discussed with nursing staff/ Dr. Aleman also Condition: Stable - Instructions Disposition: SNF FACILITY - Home Medications Comprehensive Discharge Medication List: Ambulatory Orders Allopurinol [Zyloprim -] 100 mg PO DAILY 12/24/18 Atorvastatin Ca [Lipitor] 40 mg PO HS 12/24/18 Carvedilol 25 mg PO BID 12/24/18 Hydralazine HCl 100 mg PO TID 12/24/18 Nifedipine ER [Procardia XL -] 60 mg PO DAILY 12/24/18 Pantoprazole Sodium [Protonix] 40 mg PO DAILY 12/24/18 Sevelamer Carbonate 800 mg PO TID 12/24/18 Sertraline HCl [Zoloft -] 50 mg PO DAILY #30 tablet 02/12/19 Acetaminophen [Tylenol] 650 mg PO QID PRN 02/25/19 Silver Sulfadiazine 1% Top Cr [Silvadene -] 1 applic TP DAILY 14 Days jar 02/27
[2019-02-27] MEDS ORDERED: HEPARIN NA (PORCINE) 5,000 UNITS/ML 1ML VIAL IVPUSH ONE (11:15)
[2019-02-27] MEDS ORDERED: EPOETIN ALFA 10,000 UNIT/1 ML VIAL IVPUSH ONE (11:30)
[2019-02-27 11:49] LABS: HEMATOCRIT 27.9 % (35.4-49); HEMOGLOBIN 8.9 GM/dL (11.7-16.9); MCH 25.8 pg (25.7-33.7); MCHC 31.9 g/dl (32.0-35.9); MEAN CELL VOLUME 80.9 fl (80-96); MEAN PLT VOLUME 8.3 fl (7.5-11.1); PLATELET COUNT 322 K/MM3 (134-434); RBC 3.45 M/mm3 (4.00-5.60); RDW 19.5 % (11.9-15.9); WHITE BLOOD COUNT 8.4 K/mm3 (4.0-10.0)
[2019-02-27 12:37] LABS: BLOOD UREA NITROGEN 35.1 mg/dL (7-18); POTASSIUM 4.5 mmol/L (3.5-5.1)
--- NOTE | 2019-02-27 14:53 | PN ---
Progress Note, Physician History of Present Illness: Pt seen and examined at bedside. He is awake and appears comfortable. He is tolerating Hd. - Current Medication List Current Medications: Active Medications Acetaminophen (Tylenol -) 650 mg PO Q6H PRN PRN Reason: PAIN OR FEVER Allopurinol (Zyloprim -) 100 mg PO DAILY [facility] Last Admin: 02/27/19 10:34 Dose: Not Given Atorvastatin Calcium (Lipitor -) 40 mg PO HS [facility] Last Admin: 02/26/19 21:09 Dose: Not Given Carvedilol (Coreg -) 25 mg PO BID [facility] Last Admin: 02/27/19 10:33 Dose: Not Given Heparin Sodium (Porcine) (Heparin -) 5,000 unit SQ BID [facility] Last Admin: 02/27/19 10:33 Dose: Not Given Hydralazine HCl (Apresoline -) 100 mg PO TID [facility] Last Admin: 02/27/19 07:51 Dose: Not Given Metoclopramide HCl (Reglan Injection -) 5 mg IVPUSH Q8H PRN PRN Reason: NAUSEA/VOMITING Nifedipine (Procardia Xl -) 60 mg PO DAILY [facility] Last Admin: 02/27/19 10:34 Dose: Not Given Pantoprazole Sodium (Protonix -) 40 mg PO DAILY [facility] Last Admin: 02/27/19 10:34 Dose: Not Given Sertraline HCl (Zoloft -) 50 mg PO DAILY [facility] Last Admin: 02/27/19 10:34 Dose: Not Given Sevelamer Carbonate (Renvela -) 800 mg PO TIDCM [facility] Last Admin: 02/27/19 10:33 Dose: Not Given Silver Sulfadiazine (Silvadene -) 1 applic TP DAILY [facility] Last Admin: 02/26/19 18:19 Dose: 1 applic Tramadol HCl (Ultram -) 50 mg PO TID PRN PRN Reason: PAIN LEVEL 7 - 10 - Objective Vital Signs: Vital Signs Temperature 98 F 02/27/19 08:00 Pulse Rate 92 H 02/27/19 14:20 Respiratory Rate 18 02/27/19 14:20 Blood Pressure 91/55 L 02/27/19 14:20 O2 Sat by Pulse Oximetry (%) 96 02/26/19 21:00 Constitutional: Yes: Calm Eyes: Yes: Conjunctiva Clear HENT: Yes: Atraumatic Cardiovascular: Yes: S1, S2 Respiratory: Yes: CTA Bilaterally Gastrointestinal: Yes: Soft Genitourinary: Yes: WNL Musculoskeletal: Yes: WNL Edema: No Neurological: Yes: Oriented Psychiatric: Yes: Oriented Labs: CBC, BMP 02/27/19 11:00 02/27/19 11:00 Problem List - Problems (1) Anemia Code(s): D64.9 - ANEMIA, UNSPECIFIED (2) Bipolar 1 disorder Code(s): F31.9 - BIPOLAR DISORDER, UNSPECIFIED (3) ESRD needing dialysis Code(s): N18.6 - END STAGE RENAL DISEASE; Z99.2 - DEPENDENCE ON RENAL DIALYSIS (4) Hyperkalemia Code(s): E87.5 - HYPERKALEMIA Assessment/Plan Current Medications Generic Name Dose Route Start Last Admin Trade Name Freq PRN Reason Stop Dose Admin Acetaminophen 650 mg 02/26/19 01:03 Tylenol - PO Q6H PRN PAIN OR FEVER Allopurinol 100 mg 02/26/19 10:00 02/27/19 10:34 Zyloprim - PO Not Given DAILY [facility] Atorvastatin Calcium 40 mg 02/26/19 22:00 02/26/19 21:09 Lipitor - PO Not Given HS [facility] Carvedilol 25 mg 02/26/19 10:00 02/27/19 10:33 Coreg - PO Not Given BID [facility] Heparin Sodium (Porcine) 5,000 unit 02/26/19 22:00 02/27/19 10:33 Heparin - SQ Not Given BID [facility] Hydralazine HCl 100 mg 02/26/19 06:00 02/27/19 07:51 Apresoline - PO Not Given TID [facility] Metoclopramide HCl 5 mg 02/26/19 15:51 Reglan Injection - IVPUSH Q8H PRN NAUSEA/VOMITING Nifedipine 60 mg 02/26/19 10:00 02/27/19 10:34 Procardia Xl - PO Not Given DAILY [facility] Pantoprazole Sodium 40 mg 02/26/19 10:00 02/27/19 10:34 Protonix - PO Not Given DAILY [facility] Sertraline HCl 50 mg 02/26/19 10:00 02/27/19 10:34 Zoloft - PO Not Given DAILY [facility] Sevelamer Carbonate 800 mg 02/26/19 08:00 02/27/19 10:33 Renvela - PO Not Given TIDCM [facility] Silver Sulfadiazine 1 applic 02/26/19 13:15 02/26/19 18:19 Silvadene - TP 1 applic DAILY [facility] Administration Tramadol HCl 50 mg 02/26/19 01:02 Ultram - PO TID PRN PAIN LEVEL 7 - 10 Impression 1. ESRD 2. hyperkalemia 3. gout 4. HTN 5. CHF 6. DM 7. hx bipolar 8. MOLLY 9. non compliance Plan - HD today - discussed compliance - renal diet - he has hd set up as outpt - epogen for anemia - discussed with primary team
[2019-02-27] MEDS: SILVER SULFADIAZINE 1% TOP CREAM 50 GM JAR TP SCH (18:12)
[2019-02-27 18:40] VITALS: BP 90/63; PULSE 108; TEMP 98.1
== END 2019-02-27 19:06 | DRG 640 ==
LOC: JER 16:12 → JERBED 19:59 → OBSVTOIN 20:05 → J5S 23:32
PROVIDERS: ADMIT Internal Medicine; ATTEND Internal Medicine
PROC: 5A1D70Z Performance of Urinary Filtration, Intermittent, Less than 6 Hours Per Day (ICD-10-PCS; principal; 2019-02-25)
PROC: 5A1D70Z Performance of Urinary Filtration, Intermittent, Less than 6 Hours Per Day (ICD-10-PCS; 2019-02-27)
DX: E87.5 Hyperkalemia (principal); N18.6 End stage renal disease; F31.89 Other bipolar disorder; I13.2 Hypertensive heart and chronic kidney disease with heart failure and with stage 5 chronic kidney disease, or end stage renal disease; I50.32 Chronic diastolic (congestive) heart failure; E11.22 Type 2 diabetes mellitus with diabetic chronic kidney disease; E78.00 Pure hypercholesterolemia, unspecified; F20.9 Schizophrenia, unspecified; M10.9 Gout, unspecified; L89.322 Pressure ulcer of left buttock, stage 2; J44.9 Chronic obstructive pulmonary disease, unspecified; G47.33 Obstructive sleep apnea (adult) (pediatric); E66.01 Morbid (severe) obesity due to excess calories; Z68.37 Body mass index [BMI] 37.0-37.9, adult; Z99.2 Dependence on renal dialysis; Z91.14 Patient's other noncompliance with medication regimen
CPT/HCPCS: 36415; 80048; 80053; 83735; 84100; 85025; 85027; 93005; 93010; 99282-25; G0378; J0885; J1644

== ENCOUNTER 2019-03-08 10:25 | Inpatient (IN) | payer OTHER ==
[2019-03-08] MEDS ORDERED: PANTOPRAZOLE SODIUM 40 MG in SODIUM CHLORIDE 100 ML IVPB ONE (11:03)
[2019-03-08] MEDS ORDERED: SODIUM CHLORIDE 500 ML IV STA (11:05)
--- NOTE | 2019-03-08 11:23 | PDOC ---
Documentation entered by Blanca Sal SCRIBE, acting as scribe for Roque Ardon MD. Roque Ardon MD: This documentation has been prepared by the devanibe, Blanca Sal SCRIBE, under my direction and personally reviewed by me in its entirety. I confirm that the documentation accurately reflects all work, treatment, procedures, and medical decision making performed by me. History of Present Illness - General Chief Complaint: Chest Pain Stated Complaint: CHEST PAIN,VOMITING Time Seen by Provider: 03/08/19 10:46 History Source: Patient Exam Limitations: No Limitations - History of Present Illness Initial Comments: 03/08/19 11:10 This is a 59-year-old male, with a past medical history of ESRD (, , ), HTN, HLD, Bipolar Disorder, and schizophrenia. Who presents to the ED with 4 days of chest pain, epigastric pain, nausea, and vomiting. The patient states that he has experienced 4-5 episodes of vomiting that is purple in color. He denies having any blood in his stools. Denies diarrhea/constipation. Endorses epigastric pain and chest pain associated with his vomiting. The patient denies fevers, chills, or diarrhea. Denies any palpitations or shortness of breath. Denies any weakness, dizziness, or changes in strength or sensation. Allergies: NKDA Social History: None reported. Surgical History: None reported. PCP: Dr. Earnestine Shha Past History - Past Medical History Allergies/Adverse Reactions: Allergies Allergy/AdvReac Type Severity Reaction Status Date / Time No Known Allergies Allergy Verified 02/06/19 18:28 Home Medications: Ambulatory Orders Acetaminophen [Tylenol] 650 mg PO ASDIR 03/08/19 Allopurinol [Zyloprim -] 100 mg PO DAILY 03/08/19 Alprazolam [Xanax] 0.5 mg PO ASDIR 03/08/19 Aripiprazole [Abilify] 10 mg PO DAILY 03/08/19 Atorvastatin Ca [Lipitor] 40 mg PO HS 03/08/19 Carvedilol 25 mg PO BID 03/08/19 Hydralazine HCl 100 mg PO TID 03/08/19 Nifedipine [Nifedipine ER] 60 mg PO DAILY 03/08/19 Pantoprazole Sodium [Protonix] 40 mg PO DAILY 03/08/19 Sevelamer Carbonate 800 mg PO TID 03/08/19 Silver Sulfadiazine [Silvadene] 1 applic TP ASDIR 03/08/19 Zinc Sulfate 220 mg PO DAILY 03/08/19 Anemia: No Cardiac Disorders: Yes (chf) COPD: No CHF: Yes Diabetes: Yes (borderline) Disorders: Yes (ESRD) HTN: Yes Hypercholesterolemia: Yes Psychiatric Problems: Yes (bipolar) - Surgical History Neurologic Surgery: No - Immunization History Td Vaccination: Yes TDAP Vaccination: Yes Immunization Up to Date: Yes - Suicide/Smoking/Psychosocial Hx Smoking History: Never smoked Have you smoked in the past 12 months: No Number of Cigarettes Smoked Daily: 0 Hx Alcohol Use: No Drug/Substance Use Hx: No Substance Use Type: None Hx Substance Use Treatment: No Review of Systems - Review of Systems Able to Perform ROS?: Yes Comments:: 03/08/19 11:10 GENERAL/CONSTITUTIONAL: No fever or chills. No weakness. HEAD, EYES, EARS, NOSE AND THROAT: No change in vision. No ear pain or discharge. No sore throat. CARDIOVASCULAR: (+)Chest pain. No shortness of breath, no loss of consciousness RESPIRATORY: No cough, wheezing, or hemoptysis. GASTROINTESTINAL: (+)Nausea, vomiting, abdominal pain. No diarrhea or constipation. GENITOURINARY: No dysuria, frequency, or change in urination. MUSCULOSKELETAL: No joint or muscle swelling or pain. No neck or back pain. SKIN: No rash NEUROLOGIC: No vertigo, no change in strength/sensation. ENDOCRINE: No increased thirst. No abnormal weight change. HEMATOLOGIC/LYMPHATIC: No anemia, easy bleeding, or history of blood clots. *Physical Exam - Physical Exam Comments: 03/08/19 11:12 GENERAL: Awake, alert, and fully oriented, in no acute distress. HEAD: No signs of trauma EYES: PERRLA, EOMI, sclera anicteric, conjunctiva clear ENT: Auricles normal inspection, hearing grossly normal, nares patent, oropharynx clear without exudates. Moist mucosa NECK: Nontender, no stepoffs, Normal ROM, supple, no lymphadenopathy, JVD, or masses LUNGS: Breath sounds equal, clear to auscultation bilaterally. No wheezes, and no crackles HEART: Regular rate and rhythm, normal S1 and S2, no murmurs, rubs or gallops ABDOMEN: (+)Epigastric tenderness to palpation. Soft, normoactive bowel sounds. No guarding, no rebound. No masses EXTREMITIES: Normal range of motion, no edema. No clubbing or cyanosis. No cords, erythema, or tenderness NEUROLOGICAL: Cranial nerves II through XII intact. 5/5 strength and sensation in all extremities, Normal speech, normal gait, normal cerebellar function SKIN: Warm, Dry, normal turgor, no rashes or lesions noted. Heart Score/ECG Review - History History: Slightly suspicious - Electrocardiogram EKG: Non specific repolarization disturbance - Age Age: 45-65 - Risk Factors Risk Factors Heart Score: Yes Hx Hypercholesterolemia, Yes Hx Hypertension, Yes Hx Diabetes, Yes Hx Obesity Based on the list above the patient has:: >/=3 risk factors or Hx atherosclerotic disease - Troponin Troponin: </= normal limit - Score Heart Score - Total: 4 - ECG Impressions Comment:: 03/08/19 11:25 Sinus tach, no ROSAS/STDs, TWI in lateral leads, Q waves inferiorly, QTC 463, rate 123 ED Treatment Course - LABORATORY CBC & Chemistry Diagram: 03/08/19 11:55 03/08/19 11:55 Medical Decision Making - Critical Care Time Total Critical Care Time (minutes): 60 Critical Care Statement: The care of this patient involved high complexity decision making to prevent further life threatening deterioration of the patient 's condition and/or to evaluate & treat vital organ system(s) failure or risk of failure. - Medical Decision Making 03/08/19 11:25 59 M with chest pain, epigastric pain, and vomiting. Will r/o ACS with serial trops. Also consider GI etiology, such as gastritis vs PUD vs pancreatitis. - Labs, trop, lipase - CXR - Protonix - Avoid antiemetics for now given prolonged QTc 03/08/19 13:13 Labs notable for WBC 14 Pt afebrile but tachycardic Will empirically cover with vanc/zosyn 03/08/19 13:[address] Shah *DC/Admit/Observation/Transfer Diagnosis at time of Disposition: Sepsis - Discharge Dispostion Decision to Admit order: Yes - Referrals - Patient Instructions - Post Discharge Activity - Attestations Physician Attestion: 03/08/19 13:27 I, Dr. Roque Ardon MD, attest that this document has been prepared under my direction and personally reviewed by me in its entirety. I further attest, that it accurately reflects all work, treatment, procedures and medical decision -making performed by me.
[2019-03-08] MEDS ORDERED: PANTOPRAZOLE SODIUM 40 MG VIAL ONE (12:05)
[2019-03-08 12:12] LABS: BASO % 0.8 % (0-2.0); EOS % 0.1 % (0-4.5); HEMATOCRIT 34.8 % (35.4-49); HEMOGLOBIN 11.1 GM/dL (11.7-16.9); LYMPH % 8.5 % (8-40); MCH 25.6 pg (25.7-33.7); MCHC 31.8 g/dl (32.0-35.9); MEAN CELL VOLUME 80.6 fl (80-96); MEAN PLT VOLUME 8.9 fl (7.5-11.1); MONO % 11.3 % (3.8-10.2); NEUT % 79.3 % (42.8-82.8); PLATELET COUNT 196 K/MM3 (134-434); RBC 4.32 M/mm3 (4.00-5.60); RDW 20.3 % (11.9-15.9); WHITE BLOOD COUNT 14.2 K/mm3 (4.0-10.0)
[2019-03-08] MEDS ORDERED: ACETAMINOPHEN 1000 MG/100 ML VIAL (NON FORMULARY) IVPB ONE (12:18)
[2019-03-08 12:25] LABS: INR 1.3 (0.83-1.09); PROTHROMBIN TIME (PATIENT) 15.4 SEC (9.7-13.0)
[2019-03-08 12:27] LABS: ACTIVATED PTT 31.3 SECONDS (25.2-36.5)
[2019-03-08 12:31] LABS: MAGNESIUM 2.5 mg/dL (1.8-2.4); PHOSPHOROUS 3.1 mg/dL (2.5-4.9)
[2019-03-08] MEDS ORDERED: ACETAMINOPHEN INJECTION 100 ML IVPB ONE (12:39)
[2019-03-08 12:47] LABS: ALBUMIN 2.8 g/dl (3.4-5.0); ALK PHOS 134 U/L (45-117); ANION GAP 17 MMOL/L (8-16); BILIRUBIN,TOTAL 0.7 mg/dL (0.2-1); BLOOD UREA NITROGEN 34.3 mg/dL (7-18); CALCIUM 9.7 mg/dL (8.5-10.1); CHLORIDE 94 mmol/L (98-107); CO2 27 mmol/L (21-32); GLUCOSE,RANDOM 108 mg/dL (74-106); POTASSIUM 4.4 mmol/L (3.5-5.1); SGOT/AST 26 U/L (15-37); SGPT/ALT 15 U/L (13-61); SODIUM 138 mmol/L (136-145); TOT PROT 8.5 g/dl (6.4-8.2)
[2019-03-08] MEDS ORDERED: PIPERACILLIN/TAZOB 4.5 GM 4.5 GM/100 ML BAG IVPB ONE (13:12)
[2019-03-08] MEDS ORDERED: VANCOMYCIN 1 GM in D5W (PRE-DOCKED) 1,000 MG/250 ML IVPB ONE (13:12)
[2019-03-08 13:37] LABS: CREATININE 11.1 mg/dL (0.55-1.3)
[2019-03-08 13:45] LABS: ANISOCYTOSIS 0; MACROCYTOSIS 0; PLATELET ESTIMATE NORMAL
[2019-03-08] MEDS ORDERED: PIPERACILLIN/TAZOB 3.375 GM 3.375 GM/50 ML BAG IVPB ONE (14:42)
[2019-03-08] MEDS ORDERED: VANCOMYCIN 1 GRAM (PRE-DOCKED) 1,000 MG/250 ML BAG IVPB ONE (16:06)
--- NOTE | 2019-03-08 16:55 | HP ---
Admitting History and Physical - Primary Care Physician PCP: Earnestine Shah - Admission Chief Complaint: GI bleed History of Present Illness: History of Present Illness Initial Comments: 03/08/19 11:10 This is a 59-year-old male, with a past medical history of ESRD (, , Sa), HTN, HLD, Bipolar Disorder, and schizophrenia. Who presents to the ED with 4 days of chest pain, epigastric pain, nausea, and vomiting. The patient states that he has experienced 4-5 episodes of vomiting that is purple in color. He denies having any blood in his stools. Denies diarrhea/constipation. Endorses epigastric pain and chest pain associated with his vomiting. The patient denies fevers, chills, or diarrhea. Denies any palpitations or shortness of breath. Denies any weakness, dizziness, or changes in strength or sensation. Allergies: NKDA Social History: None reported. Surgical History: None reported. PCP: Dr. aErnestine Shah pt examined by me in ER-- he had been vomiting on and off since Wednesday -- he had dialysis yesterday and was incomplete He vomited coffee grounds this AM HAs pain in abdomen Nausea History Source: Patient, Medical Record Limitations to Obtaining History: Poor Historian - Past Medical History Cardiovascular: Yes: CHF, HTN, Hyperlipdemia Pulmonary: Yes: COPD Renal/: Yes: Renal Failure, Renal Inusuff, Hemodialysis Psych: Yes: Bipolar, Schizophrenia Rheumatology: Yes: Gout - Smoking History Smoking history: Never smoked Have you smoked in the past 12 months: No Aproximately how many cigarettes per day: 0 - Alcohol/Substance Use Hx Alcohol Use: No - Social History ADL: Support Services Occupation: disability History of Recent Travel: No Home Medications - Allergies Allergies/Adverse Reactions: Allergies Allergy/AdvReac Type Severity Reaction Status Date / Time No Known Allergies Allergy Verified 02/06/19 18:28 - Home Medications Home Medications: Ambulatory Orders Acetaminophen [Tylenol] 650 mg PO ASDIR 03/08/19 Allopurinol [Zyloprim -] 100 mg PO DAILY 03/08/19 Alprazolam [Xanax] 0.5 mg PO ASDIR 03/08/19 Aripiprazole [Abilify] 10 mg PO DAILY 03/08/19 Atorvastatin Ca [Lipitor] 40 mg PO HS 03/08/19 Carvedilol 25 mg PO BID 03/08/19 Hydralazine HCl 100 mg PO TID 03/08/19 Nifedipine [Nifedipine ER] 60 mg PO DAILY 03/08/19 Pantoprazole Sodium [Protonix] 40 mg PO DAILY 03/08/19 Sevelamer Carbonate 800 mg PO TID 03/08/19 Silver Sulfadiazine [Silvadene] 1 applic TP ASDIR 03/08/19 Zinc Sulfate 220 mg PO DAILY 03/08/19 Family Disease History - Family Disease History Family Disease History: Heart Disease: Father (HTN) Review of Systems - Review of Systems Cardiovascular: denies: Chest Pain, Palpitations, Shortness of Breath Gastrointestinal: reports: Abdominal Pain, Vomiting Physical Examination Vital Signs: Vital Signs Temperature 98.4 F 03/08/19 16:15 Pulse Rate 57 L 03/08/19 16:15 Respiratory Rate 18 03/08/19 16:15 Blood Pressure 100/63 03/08/19 16:15 O2 Sat by Pulse Oximetry (%) 100 03/08/19 16:15 Constitutional: Yes: No Distress, Calm Cardiovascular: Yes: Regular Rate and Rhythm Respiratory: Yes: Diminished Gastrointestinal: Yes: Normal Bowel Sounds, Soft, Abdomen, Obese, Tenderness, Epigastrium Edema: No Neurological: Yes: Alert Labs: CBC, BMP 03/08/19 11:55 03/08/19 11:55 Imaging - Results Chest X-ray: Image Reviewed (clear) EKG: Image Reviewed (sinus tachycardia) Problem List - Problems (1) GI bleed Code(s): K92.2 - GASTROINTESTINAL HEMORRHAGE, UNSPECIFIED (2) Nausea & vomiting Code(s): R11.2 - NAUSEA WITH VOMITING, UNSPECIFIED (3) ESRD needing dialysis Code(s): N18.6 - END STAGE RENAL DISEASE; Z99.2 - DEPENDENCE ON RENAL DIALYSIS Assessment/Plan PLAN on reglan GI eval CT abd/pelvis pending renal eval for HD clear liquid diet protonix continue with meds repeat labs, lactic acid
--- NOTE | 2019-03-08 18:18 | CON.GI ---
Consult Consult Specialty:: GI Referred by:: Dr Carmen Roman Reason for Consultation:: GI bleed - History of Present Illness History of Present Illness: Patient is a 59 y/o male with past medical history of ESRD on HD, HTN, HLD, Bipolar Disorder, and schizophrenia. I was consulted to see the patient for episodes of dark colored vomitus accompanied with heartburn and sharp intermittent epigastric pain since wednesday. CT scan shows no acute pathology. He states he has lost an abnormal amount of weight but cannot say how much weight he has lost. Patient denies having dysphagia, diarrhea, constipation, blood in stool or melena. He states he has not had an endoscopy or colonoscopy done in the past. - History Source History Provided By: Patient Limitations to Obtaining History: No Limitations - Past Medical History Cardio/Vascular: Yes: CHF, HTN, Hyperlipdemia Pulmonary: Yes: COPD Renal/: Yes: Renal Failure, Renal Inusuff, Hemodialysis Psych: Yes: Bipolar, Schizophrenia Rheumatology: Yes: Gout Additional Medical History: obesity, non compliance - Alcohol/Substance Use Hx Alcohol Use: No - Smoking History Smoking history: Never smoked Have you smoked in the past 12 months: No Aproximately how many cigarettes per day: 0 - Social History Usual Living Arrangement: Retirement ADL: Support Services Occupation: disability History of Recent Travel: No Home Medications - Allergies Allergies/Adverse Reactions: Allergies Allergy/AdvReac Type Severity Reaction Status Date / Time No Known Allergies Allergy Verified 02/06/19 18:28 - Home Medications Home Medications: Ambulatory Orders Acetaminophen [Tylenol] 650 mg PO ASDIR 03/08/19 Allopurinol [Zyloprim -] 100 mg PO DAILY 03/08/19 Alprazolam [Xanax] 0.5 mg PO ASDIR 03/08/19 Aripiprazole [Abilify] 10 mg PO DAILY 03/08/19 Atorvastatin Ca [Lipitor] 40 mg PO HS 03/08/19 Carvedilol 25 mg PO BID 03/08/19 Hydralazine HCl 100 mg PO TID 03/08/19 Nifedipine [Nifedipine ER] 60 mg PO DAILY 03/08/19 Pantoprazole Sodium [Protonix] 40 mg PO DAILY 03/08/19 Sevelamer Carbonate 800 mg PO TID 03/08/19 Silver Sulfadiazine [Silvadene] 1 applic TP ASDIR 03/08/19 Zinc Sulfate 220 mg PO DAILY 03/08/19 Family Disease History - Family Disease History Family Disease History: Heart Disease: Father (HTN) Review of Systems - Review of Systems Constitutional: reports: Unintentional Wgt. Loss, Weakness Eyes: reports: No Symptoms HENT: reports: No Symptoms Neck: reports: No Symptoms Cardiovascular: reports: No Symptoms Respiratory: reports: No Symptoms Gastrointestinal: reports: Abdominal Pain, Nausea, Vomiting Genitourinary: reports: No Symptoms Breasts: reports: No Symptoms Reported Musculoskeletal: reports: No Symptoms Integumentary: reports: No Symptoms Endocrine: reports: No Symptoms Hematology/Lymphatic: reports: No Symptoms Psychiatric: reports: No Symptoms Physical Exam-GI Vital Signs: Vital Signs Temperature 97.5 F L 03/08/19 17:01 Pulse Rate 115 H 03/08/19 17:01 Respiratory Rate 18 03/08/19 17:18 Blood Pressure 105/76 03/08/19 17:01 O2 Sat by Pulse Oximetry (%) 100 03/08/19 17:18 Constitutional: Yes: No Distress, Calm Eyes: Yes: Conjunctiva Clear HENT: Yes: Atraumatic Cardiovascular: Yes: Regular Rate and Rhythm Respiratory: Yes: Regular, CTA Bilaterally Gastrointestinal Inspection: Yes: WNL. No: Ascites, Distention, Hernia, Scars, Other ...Auscultate: Yes: Normoactive Bowel Sounds. No: Hyperactive Bowel Sounds, Hypoactive Bowel Sounds, No Bowel Sounds, Other ...Palpate: Yes: Soft, Tenderness, Epigastium. No: Firm/Rigid, Guarding, Hepatomegaly, Mass, Pulsatile Mass, Splenomegaly, Tenderness, Tenderness, Rebound, Other ...Percussion: Yes: Tympanitic. No: Dullness, Fluid Wave, Other Neurological: Yes: Alert, Pre-Existing Deficit Psychiatric: Yes: Alert Labs: CBC, BMP 03/08/19 11:55 03/08/19 11:55 INR, PTT INR 1.30 (0.83-1.09) H 03/08/19 11:55 Home Medications Medication Instructions Recorded Acetaminophen [Tylenol] 650 mg PO ASDIR 03/08/19 Allopurinol [Zyloprim -] 100 mg PO DAILY 03/08/19 Alprazolam [Xanax] 0.5 mg PO ASDIR 03/08/19 Aripiprazole [Abilify] 10 mg PO DAILY 03/08/19 Atorvastatin Ca [Lipitor] 40 mg PO HS 03/08/19 Carvedilol 25 mg PO BID 03/08/19 Hydralazine HCl 100 mg PO TID 03/08/19 Nifedipine [Nifedipine ER] 60 mg PO DAILY 03/08/19 Pantoprazole Sodium [Protonix] 40 mg PO DAILY 03/08/19 Sevelamer Carbonate 800 mg PO TID 03/08/19 Silver Sulfadiazine [Silvadene] 1 applic TP ASDIR 03/08/19 Zinc Sulfate 220 mg PO DAILY 03/08/19 Imaging - Results Cat Scan: Report Reviewed Problem List - Problems (1) GI bleed Assessment/Plan: >patient is high risk for endoscopy at this time will hold off on endoscopy until medically stable >Pantoprazole Code(s): K92.2 - GASTROINTESTINAL HEMORRHAGE, UNSPECIFIED (2) Nausea & vomiting Assessment/Plan: >continue Zofran and Reglan Code(s): R11.2 - NAUSEA WITH VOMITING, UNSPECIFIED
[2019-03-08] MEDS: ONDANSETRON 4 MG/2 ML VIAL IVPUSH SCH ×2 (19:25→22:00)
[2019-03-08] MEDS: METOCLOPRAMIDE HCL INJECTION 10 MG/2 ML VIAL IVPUSH SCH (19:25)
[2019-03-08] MEDS: CARVEDILOL 25 MG TABLET (FP) PO SCH (22:00)
[2019-03-08] MEDS ORDERED: PATIENT'S OWN MEDICATION (NON-FORMULARY) (Hydralazine Hcl [Hydralazine Hcl] 100 MG) PO SCH (22:00)
[2019-03-08] MEDS: hydrALAZINE HCL 50 MG TABLET (FP) PO SCH (22:00)
[2019-03-08] MEDS: SEVELAMER CARBONATE 800 MG TAB (FP) PO SCH (22:00)
[2019-03-09] MEDS ORDERED: SODIUM CHLORIDE 500 ML IV STA (01:36)
[2019-03-09] MEDS: METOCLOPRAMIDE HCL INJECTION 10 MG/2 ML VIAL IVPUSH SCH ×3 (02:15→17:59)
[2019-03-09] MEDS ORDERED: PIPERACILLIN/TAZOB 4.5 GM 4.5 GM in DEXTROSE 5%-WATER 100 ML IVPB ONE (02:25)
[2019-03-09] MEDS ORDERED: PIPERACILLIN/TAZOB 2.25 GM 2.25 GM in DEXTROSE 5%-WATER - 50 ML IVPB ONE (02:45)
[2019-03-09] MEDS ORDERED: PIPERACILLIN/TAZOBACTAM 2.25 GM VIAL IVPB ONE (02:48)
[2019-03-09] MEDS ORDERED: DEXTROSE 5%-WATER - 50 ML IVPB ONE (02:48)
[2019-03-09] MEDS: SEVELAMER CARBONATE 800 MG TAB (FP) PO SCH ×4 (06:09→21:36)
[2019-03-09] MEDS: hydrALAZINE HCL 50 MG TABLET (FP) PO SCH ×2 (06:09→15:46)
[2019-03-09 08:20] LABS: BASO % 0.3 % (0-2.0); EOS % 0.7 % (0-4.5); HEMATOCRIT 28.2 % (35.4-49); LYMPH % 9.9 % (8-40); MCH 25.8 pg (25.7-33.7); MCHC 32.1 g/dl (32.0-35.9); MEAN CELL VOLUME 80.4 fl (80-96); MEAN PLT VOLUME 8.4 fl (7.5-11.1); NEUT % 77.1 % (42.8-82.8); PLATELET COUNT 142 K/MM3 (134-434); RBC 3.51 M/mm3 (4.00-5.60); RDW 20.1 % (11.9-15.9); WHITE BLOOD COUNT 10.7 K/mm3 (4.0-10.0)
[2019-03-09 08:27] LABS: ALBUMIN 2.2 g/dl (3.4-5.0); BILIRUBIN,TOTAL 0.5 mg/dL (0.2-1); BLOOD UREA NITROGEN 40.2 mg/dL (7-18); CALCIUM 9.1 mg/dL (8.5-10.1); POTASSIUM 3.7 mmol/L (3.5-5.1); TOT PROT 6.6 g/dl (6.4-8.2)
[2019-03-09 08:37] LABS: CREATININE 11.2 mg/dL (0.55-1.3)
[2019-03-09] MEDS ORDERED: NIFEdipine E.R 60 MG TABLET (UD) PO SCH (10:00)
[2019-03-09] MEDS ORDERED: PATIENT'S OWN MEDICATION (NON-FORMULARY) (Nifedipine [Nifedipine Er] 60 MG) PO SCH (10:00)
[2019-03-09 10:44] LABS: ANISOCYTOSIS 1+; MACROCYTOSIS 0; PLATELET ESTIMATE DECREASED
[2019-03-09] MEDS: CARVEDILOL 25 MG TABLET (FP) PO SCH (11:13)
[2019-03-09] MEDS: PANTOPRAZOLE SODIUM 40 MG VIAL IVPUSH SCH (11:13)
[2019-03-09] MEDS: ARIPiprazole 10 MG TABLET PO SCH (11:13)
--- NOTE | 2019-03-09 11:50 | HP ---
Admitting History and Physical - Past Medical History Cardiovascular: Yes: CHF, HTN, Hyperlipdemia Pulmonary: Yes: COPD Renal/: Yes: Renal Failure, Renal Inusuff, Hemodialysis Psych: Yes: Bipolar, Schizophrenia Rheumatology: Yes: Gout - Smoking History Smoking history: Never smoked Have you smoked in the past 12 months: No Aproximately how many cigarettes per day: 0 - Alcohol/Substance Use Hx Alcohol Use: No - Social History ADL: Support Services Occupation: disability History of Recent Travel: No Home Medications - Allergies Allergies/Adverse Reactions: Allergies Allergy/AdvReac Type Severity Reaction Status Date / Time No Known Allergies Allergy Verified 02/06/19 18:28 - Home Medications Home Medications: Ambulatory Orders Acetaminophen [Tylenol] 650 mg PO ASDIR 03/08/19 Allopurinol [Zyloprim -] 100 mg PO DAILY 03/08/19 Alprazolam [Xanax] 0.5 mg PO ASDIR 03/08/19 Aripiprazole [Abilify] 10 mg PO DAILY 03/08/19 Atorvastatin Ca [Lipitor] 40 mg PO HS 03/08/19 Carvedilol 25 mg PO BID 03/08/19 Hydralazine HCl 100 mg PO TID 03/08/19 Nifedipine [Nifedipine ER] 60 mg PO DAILY 03/08/19 Pantoprazole Sodium [Protonix] 40 mg PO DAILY 03/08/19 Sevelamer Carbonate 800 mg PO TID 03/08/19 Silver Sulfadiazine [Silvadene] 1 applic TP ASDIR 03/08/19 Zinc Sulfate 220 mg PO DAILY 03/08/19 Family Disease History - Family Disease History Family Disease History: Heart Disease: Father (HTN) Physical Examination Vital Signs: Vital Signs Temperature 97.6 F 03/09/19 06:29 Pulse Rate 97 H 03/09/19 10:00 Respiratory Rate 20 03/09/19 10:00 Blood Pressure 100/69 03/09/19 10:00 O2 Sat by Pulse Oximetry (%) 96 03/08/19 21:00 Labs: CBC, BMP 03/09/19 07:45 03/09/19 07:45
--- NOTE | 2019-03-09 12:12 | PN ---
Progress Note (short form) - Note Progress Note: No distress no vomiting drank liquids fine Vital Signs - 24 hr 03/08/19 03/08/19 03/08/19 16:15 17:01 17:18 Temperature 98.4 F 97.5 F L Pulse Rate 115 H Pulse Rate [ 57 L Left] Respiratory 18 18 18 Rate Blood Pressure 105/76 Blood Pressure 100/63 [Left Arm] O2 Sat by Pulse 100 100 Oximetry (%) 03/08/19 03/08/19 03/08/19 21:00 22:45 23:04 Temperature 96.9 F L 98.1 F Pulse Rate 116 H 108 H Pulse Rate [ Left] Respiratory 20 19 20 Rate Blood Pressure 110/80 119/77 Blood Pressure [Left Arm] O2 Sat by Pulse 96 Oximetry (%) 03/09/19 03/09/19 03/09/19 02:00 06:29 10:00 Temperature 97.6 F 97.6 F Pulse Rate 106 H 95 H 97 H Pulse Rate [ Left] Respiratory 20 20 20 Rate Blood Pressure 109/75 107/73 100/69 Blood Pressure [Left Arm] O2 Sat by Pulse Oximetry (%) Current Medications Generic Name Dose Route Start Last Admin Trade Name Freq PRN Reason Stop Dose Admin Aripiprazole 10 mg 03/09/19 10:00 03/09/19 11:13 Abilify PO 10 mg DAILY RONALD Administration Carvedilol 25 mg 03/08/19 22:00 03/09/19 11:13 Coreg - PO 25 mg BID RONALD Administration Hydralazine HCl 100 mg 03/08/19 22:00 03/09/19 06:09 Apresoline - PO 100 mg TID RONALD Administration Metoclopramide HCl 10 mg 03/08/19 18:15 03/09/19 11:13 Reglan Injection - IVPUSH 10 mg Q8H RONALD Administration Nifedipine 60 mg 03/09/19 10:00 03/09/19 11:13 Procardia Xl - PO Not Given DAILY RONALD Ondansetron HCl 4 mg 03/08/19 02:30 Zofran Injection IVPUSH Q4H PRN NAUSEA AND/OR VOMITING Pantoprazole Sodium 40 mg 03/09/19 10:00 03/09/19 11:13 Protonix Iv IVPUSH 40 mg DAILY RONALD Administration Sevelamer Carbonate 800 mg 03/08/19 22:00 03/09/19 06:09 Renvela - PO 800 mg TID RONALD Administration Laboratory Results - last 24 hr 03/08/19 03/08/19 03/08/19 11:55 11:55 11:55 WBC 14.2 H RBC 4.32 Hgb 11.1 L Hct 34.8 L D MCV 80.6 MCH 25.6 L MCHC 31.8 L RDW 20.3 H Plt Count 196 D MPV 8.9 Absolute Neuts (auto) 11.3 H Neutrophils % 79.3 Neutrophils % (Manual) 84.9 H Band Neutrophils % 0.0 Lymphocytes % 8.5 D Lymphocytes % (Manual) 7.6 L Monocytes % 11.3 H Monocytes % (Manual) 8 Eosinophils % 0.1 D Eosinophils % (Manual) 0.0 Basophils % 0.8 Basophils % (Manual) 0.0 Myelocytes % (Man) 0 Promyelocytes % (Man) 0 Blast Cells % (Manual) 0 Nucleated RBC % 0 Metamyelocytes 0 Hypochromia 0 Platelet Estimate Normal Polychromasia 0 Poikilocytosis 0 Anisocytosis 0 Microcytosis 0 Macrocytosis 0 PT with INR 15.40 H INR 1.30 H PTT (Actin FS) 31.3 Sodium 138 Potassium 4.4 Chloride 94 L Carbon Dioxide 27 Anion Gap 17 H BUN 34.3 H Creatinine 11.1 H* Est GFR (CKD-EPI)AfAm 5.25 Est GFR (CKD-EPI)NonAf 4.53 Random Glucose 108 H Lactic Acid Calcium 9.7 Phosphorus Magnesium Total Bilirubin 0.7 AST 26 ALT 15 Alkaline Phosphatase 134 H Creatine Kinase 37 Troponin I < 0.02 Total Protein 8.5 H Albumin 2.8 L Lipase Blood Type Antibody Screen 03/08/19 03/08/19 03/08/19 11:55 11:55 11:55 WBC RBC Hgb Hct MCV MCH MCHC RDW Plt Count MPV Absolute Neuts (auto) Neutrophils % Neutrophils % (Manual) Band Neutrophils % Lymphocytes % Lymphocytes % (Manual) Monocytes % Monocytes % (Manual) Eosinophils % Eosinophils % (Manual) Basophils % Basophils % (Manual) Myelocytes % (Man) Promyelocytes % (Man) Blast Cells % (Manual) Nucleated RBC % Metamyelocytes Hypochromia Platelet Estimate Polychromasia Poikilocytosis Anisocytosis Microcytosis Macrocytosis PT with INR INR PTT (Actin FS) Sodium Potassium Chloride Carbon Dioxide Anion Gap BUN Creatinine Est GFR (CKD-EPI)AfAm Est GFR (CKD-EPI)NonAf Random Glucose Lactic Acid 4.8 H* Calcium Phosphorus 3.1 Magnesium 2.5 H Total Bilirubin AST ALT Alkaline Phosphatase Creatine Kinase Troponin I Total Protein Albumin Lipase 172 Blood Type A POSITIVE Antibody Screen Negative 03/08/19 03/09/19 03/09/19 18:00 00:30 07:45 WBC 10.7 H RBC 3.51 L Hgb 9.0 L Hct 28.2 L D MCV 80.4 MCH 25.8 MCHC 32.1 RDW 20.1 H Plt Count 142 D MPV 8.4 Absolute Neuts (auto) 8.2 H Neutrophils % 77.1 Neutrophils % (Manual) 80.0 Band Neutrophils % 0.0 Lymphocytes % 9.9 Lymphocytes % (Manual) 13.0 D Monocytes % 12.0 H Monocytes % (Manual) 6 Eosinophils % 0.7 D Eosinophils % (Manual) 0.0 Basophils % 0.3 Basophils % (Manual) 0.0 Myelocytes % (Man) 0 Promyelocytes % (Man) 0 Blast Cells % (Manual) 0 Nucleated RBC % 0 Metamyelocytes 1 D Hypochromia 0 Platelet Estimate Decreased Polychromasia 0 Poikilocytosis 0 Anisocytosis 1+ Microcytosis 1+ Macrocytosis 0 PT with INR INR PTT (Actin FS) Sodium Potassium Chloride Carbon Dioxide Anion Gap BUN Creatinine Est GFR (CKD-EPI)AfAm Est GFR (CKD-EPI)NonAf Random Glucose Lactic Acid 4.7 H* 5.9 H* Calcium Phosphorus Magnesium Total Bilirubin AST ALT Alkaline Phosphatase Creatine Kinase Troponin I Total Protein Albumin Lipase Blood Type Antibody Screen 03/09/19 03/09/19 07:45 07:45 WBC RBC Hgb Hct MCV MCH MCHC RDW Plt Count MPV Absolute Neuts (auto) Neutrophils % Neutrophils % (Manual) Band Neutrophils % Lymphocytes % Lymphocytes % (Manual) Monocytes % Monocytes % (Manual) Eosinophils % Eosinophils % (Manual) Basophils % Basophils % (Manual) Myelocytes % (Man) Promyelocytes % (Man) Blast Cells % (Manual) Nucleated RBC % Metamyelocytes Hypochromia Platelet Estimate Polychromasia Poikilocytosis Anisocytosis Microcytosis Macrocytosis PT with INR INR PTT (Actin FS) Sodium 134 L Potassium 3.7 Chloride 95 L Carbon Dioxide 23 Anion Gap 16 BUN 40.2 H Creatinine 11.2 H* Est GFR (CKD-EPI)AfAm 5.19 Est GFR (CKD-EPI)NonAf 4.48 Random Glucose 94 Lactic Acid 4.0 H* Calcium 9.1 Phosphorus Magnesium Total Bilirubin 0.5 AST 19 ALT 12 L Alkaline Phosphatase 103 Creatine Kinase Troponin I Total Protein 6.6 Albumin 2.2 L Lipase Blood Type Antibody Screen S1 S2 RRR Lungs decreased Abd- soft, tender epigastrium No edema A/P Lactic acid decreased-- CT abd/pelvis-- negative Clears Needs dialysis Renal eval GI eval at [facility] , his last dialysis was on Wednesday-- did not complete dialysis on protonix Problem List - Problems (1) GI bleed Code(s): K92.2 - GASTROINTESTINAL HEMORRHAGE, UNSPECIFIED (2) Nausea & vomiting Code(s): R11.2 - NAUSEA WITH VOMITING, UNSPECIFIED (3) ESRD needing dialysis Code(s): N18.6 - END STAGE RENAL DISEASE; Z99.2 - DEPENDENCE ON RENAL DIALYSIS
--- NOTE | 2019-03-09 12:32 | EKG ---
Test Reason : Blood Pressure : / mmHG Vent. Rate : 123 BPM Atrial Rate : 123 BPM P-R Int : 152 ms QRS Dur : 088 ms QT Int : 324 ms P-R-T Axes : 032 -18 079 degrees QTc Int : 463 ms SINUS TACHYCARDIA WITH FUSION COMPLEXES INFERIOR INFARCT , AGE UNDETERMINED CANNOT RULE OUT ANTERIOR INFARCT (CITED ON OR BEFORE 21-JAN-2019) T WAVE ABNORMALITY, CONSIDER LATERAL ISCHEMIA ABNORMAL ECG WHEN COMPARED WITH ECG OF 25-FEB-2019 16:55, FUSION COMPLEXES ARE NOW PRESENT INFERIOR INFARCT IS NOW PRESENT Confirmed by RICHMOND MACKEY MD ([id number]) on 03/09/2019 12:32:24 PM Referred By: Confirmed By:RICHMOND MACKEY MD
--- NOTE | 2019-03-09 16:56 | CONSULT ---
Consult Consult Specialty:: Nephrology Reason for Consultation:: ESRD - History of Present Illness Chief Complaint: hematemesis History of Present Illness: Pt is a 59 year old male with pmhx of esrd, htn. hld, bipolar, and non compliance who presents to the er with epigastric pain and hematemesis. He say that he has been vomiting intermittently for the last 4 days. He was lasit dialyzed on Wednesday. He denies chest pain or shortness of breath. He denies fevers or chills. - Past Medical History Cardio/Vascular: Yes: CHF, HTN, Hyperlipdemia Pulmonary: Yes: COPD Renal/: Yes: Renal Failure, Renal Inusuff, Hemodialysis Psych: Yes: Bipolar, Schizophrenia Rheumatology: Yes: Gout Additional Medical History: obesity, non compliance - Alcohol/Substance Use Hx Alcohol Use: No - Smoking History Smoking history: Never smoked Have you smoked in the past 12 months: No Aproximately how many cigarettes per day: 0 - Social History Usual Living Arrangement: Detention ADL: Support Services Occupation: disability History of Recent Travel: No Home Medications - Allergies Allergies/Adverse Reactions: Allergies Allergy/AdvReac Type Severity Reaction Status Date / Time No Known Allergies Allergy Verified 02/06/19 18:28 - Home Medications Home Medications: Ambulatory Orders Acetaminophen [Tylenol] 650 mg PO ASDIR 03/08/19 Allopurinol [Zyloprim -] 100 mg PO DAILY 03/08/19 Alprazolam [Xanax] 0.5 mg PO ASDIR 03/08/19 Aripiprazole [Abilify] 10 mg PO DAILY 03/08/19 Atorvastatin Ca [Lipitor] 40 mg PO HS 03/08/19 Carvedilol 25 mg PO BID 03/08/19 Hydralazine HCl 100 mg PO TID 03/08/19 Nifedipine [Nifedipine ER] 60 mg PO DAILY 03/08/19 Pantoprazole Sodium [Protonix] 40 mg PO DAILY 03/08/19 Sevelamer Carbonate 800 mg PO TID 03/08/19 Silver Sulfadiazine [Silvadene] 1 applic TP ASDIR 03/08/19 Zinc Sulfate 220 mg PO DAILY 03/08/19 Family Disease History - Family Disease History Family Disease History: Heart Disease: Father (HTN) Review of Systems - Review of Systems Constitutional: reports: No Symptoms Eyes: reports: No Symptoms HENT: reports: No Symptoms Neck: reports: No Symptoms Cardiovascular: reports: No Symptoms Respiratory: reports: No Symptoms Gastrointestinal: reports: Abdominal Pain, Vomiting Genitourinary: reports: No Symptoms Musculoskeletal: reports: No Symptoms Integumentary: reports: No Symptoms Neurological: reports: No Symptoms Endocrine: reports: No Symptoms Hematology/Lymphatic: reports: No Symptoms Psychiatric: reports: No Symptoms Physical Exam Vital Signs: Vital Signs Temperature 97.5 F L 03/09/19 15:26 Pulse Rate 98 H 03/09/19 15:26 Respiratory Rate 20 03/09/19 10:00 Blood Pressure 82/45 L 03/09/19 15:26 O2 Sat by Pulse Oximetry (%) 96 03/08/19 21:00 Constitutional: Yes: Calm Eyes: Yes: Conjunctiva Clear HENT: Yes: Atraumatic Neck: Yes: Supple Cardiovascular: Yes: S1, S2 Respiratory: Yes: CTA Bilaterally Gastrointestinal: Yes: Soft Renal/: Yes: WNL Musculoskeletal: Yes: WNL Extremities: Yes: WNL Neurological: Yes: Oriented Labs: CBC, BMP 03/09/19 07:45 03/09/19 07:45 Imaging - Results Chest X-ray: Report Reviewed Cat Scan: Report Reviewed Problem List - Problems (1) GI bleed Code(s): K92.2 - GASTROINTESTINAL HEMORRHAGE, UNSPECIFIED (2) Nausea & vomiting Code(s): R11.2 - NAUSEA WITH VOMITING, UNSPECIFIED (3) ESRD needing dialysis Code(s): N18.6 - END STAGE RENAL DISEASE; Z99.2 - DEPENDENCE ON RENAL DIALYSIS Assessment/Plan Current Medications Generic Name Dose Route Start Last Admin Trade Name Vandana PRN Reason Stop Dose Admin Aripiprazole 10 mg 03/09/19 10:00 03/09/19 11:13 Abilify PO 10 mg DAILY RONALD Administration Carvedilol 25 mg 03/08/19 22:00 03/09/19 11:13 Coreg - PO 25 mg BID RONALD Administration Hydralazine HCl 100 mg 03/08/19 22:00 03/09/19 15:46 Apresoline - PO Not Given TID RONALD Metoclopramide HCl 10 mg 03/08/19 18:15 03/09/19 11:13 Reglan Injection - IVPUSH 10 mg Q8H RONALD Administration Nifedipine 60 mg 03/09/19 10:00 03/09/19 11:13 Procardia Xl - PO Not Given DAILY RONALD Ondansetron HCl 4 mg 03/08/19 02:30 Zofran Injection IVPUSH Q4H PRN NAUSEA AND/OR VOMITING Pantoprazole Sodium 40 mg 03/09/19 10:00 03/09/19 11:13 Protonix Iv IVPUSH 40 mg DAILY RONALD Administration Sevelamer Carbonate 800 mg 03/08/19 22:00 03/09/19 15:46 Renvela - PO Not Given TID RONALD Impression 1. ESRD 2. vomiting 3. gout 4. HTN 5. CHF 6. DM 7. hx bipolar 8. MOLLY 9. non compliance Plan - hold bp meds as he is hypotensive - hole off hd today, will evaluate in am. he does not want hd today - check cultures if he allows them to be drawn - GI follow up, discussed with GI - epogen for anemia
[2019-03-10] MEDS: METOCLOPRAMIDE HCL INJECTION 10 MG/2 ML VIAL IVPUSH SCH ×3 (02:45→17:29)
[2019-03-10] MEDS: SEVELAMER CARBONATE 800 MG TAB (FP) PO SCH ×3 (06:13→21:16)
--- NOTE | 2019-03-10 08:49 | PN ---
Progress Note, Physician Chief Complaint: GI FOLLOW UP NOTE Patient examined and case discussed with Dr Fernandez Patient complain of abdominal pain with 3-4 episodes of vomiting during the night. Bynum at bedside chows clear yellow vomitus with one speck of blood noted. denies dysphagia, heartburn, diarrhea, constipation, rectal bleeding or melena. - Current Medication List Current Medications: Active Medications Aripiprazole (Abilify) 10 mg PO DAILY [facility] Last Admin: 03/09/19 11:13 Dose: 10 mg Epoetin Shawn (Epogen -) 10,000 unit IVPUSH ONCE ONE Stop: 03/10/19 19:24 Sodium Chloride (Normal Saline -) 250 mls @ 3,000 mls/hr IV PRN PRN PRN Reason: Hypotension during Dialysis Stop: 03/10/19 19:23 Metoclopramide HCl (Reglan Injection -) 10 mg IVPUSH Q8H [facility] Last Admin: 03/10/19 02:45 Dose: 10 mg Ondansetron HCl (Zofran Injection) 4 mg IVPUSH Q4H PRN PRN Reason: NAUSEA AND/OR VOMITING Pantoprazole Sodium (Protonix Iv) 40 mg IVPUSH DAILY [facility] Last Admin: 03/09/19 11:13 Dose: 40 mg Sevelamer Carbonate (Renvela -) 800 mg PO TID [facility] Last Admin: 03/10/19 06:13 Dose: Not Given - Objective Vital Signs: Vital Signs Temperature 98.1 F 03/10/19 05:50 Pulse Rate 108 H 03/10/19 05:50 Respiratory Rate 18 03/10/19 05:50 Blood Pressure 102/54 L 03/10/19 05:50 O2 Sat by Pulse Oximetry (%) 98 03/09/19 21:00 Constitutional: Yes: No Distress Eyes: Yes: Conjunctiva Clear HENT: Yes: Atraumatic Cardiovascular: Yes: Regular Rate and Rhythm Respiratory: Yes: Regular, CTA Bilaterally Gastrointestinal: Yes: Normal Bowel Sounds, Soft, Tenderness (diffuse). No: WNL , Abdomen, Obese, Ascites, Distention, Hematemesis, Hemorrhoids, Hepatomegaly, Hernia, Hyperactive Bowel Sounds, Hypoactive Bowel Sounds, Melena, Palpable Mass , Pulsatile Mass, Rectal Bleeding, Splenomegaly, Tenderness, Epigastrium, Tenderness, Rebound, Vomiting, Other Neurological: Yes: Alert Psychiatric: Yes: Alert Labs: CBC, BMP 03/09/19 07:45 03/09/19 07:45 INR, PTT INR 1.30 (0.83-1.09) H 03/08/19 11:55 <Natasha Montez - Last Filed: 03/10/19 08:46> - Current Medication List Current Medications: Active Medications Aripiprazole (Abilify) 10 mg PO DAILY [facility] Last Admin: 03/10/19 10:50 Dose: 10 mg Epoetin Shawn (Epogen -) 10,000 unit IVPUSH ONCE ONE Stop: 03/11/19 06:01 Sodium Chloride (Normal Saline -) 250 mls @ 3,000 mls/hr IV PRN PRN PRN Reason: Hypotension during Dialysis Stop: 03/10/19 19:23 Metoclopramide HCl (Reglan Injection -) 10 mg IVPUSH Q8H [facility] Last Admin: 03/10/19 10:50 Dose: 10 mg Ondansetron HCl (Zofran Injection) 4 mg IVPUSH Q4H PRN PRN Reason: NAUSEA AND/OR VOMITING Pantoprazole Sodium (Protonix Iv) 40 mg IVPUSH DAILY [facility] Last Admin: 03/10/19 10:50 Dose: 40 mg Sevelamer Carbonate (Renvela -) 800 mg PO TID [facility] Last Admin: 03/10/19 14:42 Dose: Not Given - Objective Vital Signs: Vital Signs Temperature 98.1 F 03/10/19 05:50 Pulse Rate 96 H 03/10/19 10:00 Respiratory Rate 20 03/10/19 10:00 Blood Pressure 100/60 03/10/19 10:00 O2 Sat by Pulse Oximetry (%) 98 03/09/19 21:00 Labs: CBC, BMP 03/09/19 07:45 03/09/19 07:45 INR, PTT INR 1.30 (0.83-1.09) H 03/08/19 11:55 <Mike Fernandez - Last Filed: 03/10/19 16:54> Problem List - Problems (1) GI bleed Assessment/Plan: R>Pantoprazole >Stool OB ordered >will hold off on endoscopy at this time until patient is medically stable Code(s): K92.2 - GASTROINTESTINAL HEMORRHAGE, UNSPECIFIED (2) Nausea & vomiting Assessment/Plan: R> Reglan IVPB >Abdominal Xray ordered Code(s): R11.2 - NAUSEA WITH VOMITING, UNSPECIFIED <Natasha Montez - Last Filed: 03/10/19 08:46> - Problems (1) GI bleed Code(s): K92.2 - GASTROINTESTINAL HEMORRHAGE, UNSPECIFIED (2) Nausea & vomiting Code(s): R11.2 - NAUSEA WITH VOMITING, UNSPECIFIED <Mike Fernandez - Last Filed: 03/10/19 16:54>
[2019-03-10] MEDS ORDERED: PT OWN MED DRAWER 7, Y5N ONE (10:41)
[2019-03-10] MEDS: ARIPiprazole 10 MG TABLET PO SCH (10:50)
[2019-03-10] MEDS: PANTOPRAZOLE SODIUM 40 MG VIAL IVPUSH SCH (10:50)
--- NOTE | 2019-03-10 13:06 | PN ---
Progress Note (short form) - Note Progress Note: pt seen/ examined chart reviewed refusing dialysis again today Vital Signs Temp 98.1 F 03/10/19 05:50 Pulse 96 H 03/10/19 10:00 Resp 20 03/10/19 10:00 BP 100/60 03/10/19 10:00 Pulse Ox 98 03/09/19 21:00 Intake & Output 03/09/19 03/10/19 03/10/19 23:59 11:59 23:59 Intake Total 700 Output Total 0 Balance 700 Weight 238 lb 5 oz Intake: Oral 700 Output: Urine 0 Void 0 Other: Voiding Method Incontinent # Unmeasured Voids Void 1 Bowel Movement Yes # Bowel Movements 1 Weight Measurement Method Built in [facility] Active Medications Aripiprazole (Abilify) 10 mg PO DAILY [facility] Last Admin: 03/10/19 10:50 Dose: 10 mg Epoetin Shawn (Epogen -) 10,000 unit IVPUSH ONCE ONE Stop: 03/10/19 19:24 Sodium Chloride (Normal Saline -) 250 mls @ 3,000 mls/hr IV PRN PRN PRN Reason: Hypotension during Dialysis Stop: 03/10/19 19:23 Metoclopramide HCl (Reglan Injection -) 10 mg IVPUSH Q8H [facility] Last Admin: 03/10/19 10:50 Dose: 10 mg Ondansetron HCl (Zofran Injection) 4 mg IVPUSH Q4H PRN PRN Reason: NAUSEA AND/OR VOMITING Pantoprazole Sodium (Protonix Iv) 40 mg IVPUSH DAILY [facility] Last Admin: 03/10/19 10:50 Dose: 40 mg Sevelamer Carbonate (Renvela -) 800 mg PO TID [facility] Last Admin: 03/10/19 06:13 Dose: Not Given CBC, BMP 03/09/19 07:45 03/09/19 07:45 fua -- noted S1 S2 RRR Lungs decreased Abd- soft, tender epigastrium No edema A/P continue present care Needs dialysis Renal on case on protonix will follow Compliance issues Problem List - Problems (1) GI bleed Code(s): K92.2 - GASTROINTESTINAL HEMORRHAGE, UNSPECIFIED (2) Nausea & vomiting Code(s): R11.2 - NAUSEA WITH VOMITING, UNSPECIFIED (3) ESRD needing dialysis Code(s): N18.6 - END STAGE RENAL DISEASE; Z99.2 - DEPENDENCE ON RENAL DIALYSIS
--- NOTE | 2019-03-10 15:14 | PN ---
Progress Note, Physician History of Present Illness: Pt seen and examined at bedside. He is awake and alert. He is refusing HD today. - Current Medication List Current Medications: Active Medications Aripiprazole (Abilify) 10 mg PO DAILY [facility] Last Admin: 03/10/19 10:50 Dose: 10 mg Epoetin Shawn (Epogen -) 10,000 unit IVPUSH ONCE ONE Stop: 03/10/19 19:24 Sodium Chloride (Normal Saline -) 250 mls @ 3,000 mls/hr IV PRN PRN PRN Reason: Hypotension during Dialysis Stop: 03/10/19 19:23 Metoclopramide HCl (Reglan Injection -) 10 mg IVPUSH Q8H [facility] Last Admin: 03/10/19 10:50 Dose: 10 mg Ondansetron HCl (Zofran Injection) 4 mg IVPUSH Q4H PRN PRN Reason: NAUSEA AND/OR VOMITING Pantoprazole Sodium (Protonix Iv) 40 mg IVPUSH DAILY [facility] Last Admin: 03/10/19 10:50 Dose: 40 mg Sevelamer Carbonate (Renvela -) 800 mg PO TID [facility] Last Admin: 03/10/19 14:42 Dose: Not Given - Objective Vital Signs: Vital Signs Temperature 98.1 F 03/10/19 05:50 Pulse Rate 96 H 03/10/19 10:00 Respiratory Rate 20 03/10/19 10:00 Blood Pressure 100/60 03/10/19 10:00 O2 Sat by Pulse Oximetry (%) 98 03/09/19 21:00 Constitutional: Yes: Calm Eyes: Yes: Conjunctiva Clear HENT: Yes: Atraumatic Neck: Yes: Supple Cardiovascular: Yes: S1, S2 Respiratory: Yes: CTA Bilaterally Gastrointestinal: Yes: Soft Genitourinary: Yes: WNL Musculoskeletal: Yes: WNL Edema: No Integumentary: Yes: WNL Neurological: Yes: Oriented Psychiatric: Yes: Oriented Labs: CBC, BMP 03/09/19 07:45 03/09/19 07:45 INR, PTT INR 1.30 (0.83-1.09) H 03/08/19 11:55 Problem List - Problems (1) GI bleed Code(s): K92.2 - GASTROINTESTINAL HEMORRHAGE, UNSPECIFIED (2) Nausea & vomiting Code(s): R11.2 - NAUSEA WITH VOMITING, UNSPECIFIED (3) ESRD needing dialysis Code(s): N18.6 - END STAGE RENAL DISEASE; Z99.2 - DEPENDENCE ON RENAL DIALYSIS Assessment/Plan Current Medications Generic Name Dose Route Start Last Admin Trade Name Freq PRN Reason Stop Dose Admin Aripiprazole 10 mg 03/09/19 10:00 03/10/19 10:50 Abilify PO 10 mg DAILY RONALD Administration Epoetin Shawn 10,000 unit 03/10/19 19:23 Epogen - IVPUSH 03/10/19 19:24 ONCE ONE Sodium Chloride 250 mls @ 3,000 mls/hr 03/09/19 19:23 Normal Saline - IV 03/10/19 19:23 PRN PRN Hypotension during Dialysis Metoclopramide HCl 10 mg 03/08/19 18:15 03/10/19 10:50 Reglan Injection - IVPUSH 10 mg Q8H [facility]D Administration Ondansetron HCl 4 mg 03/08/19 02:30 Zofran Injection IVPUSH Q4H PRN NAUSEA AND/OR VOMITING Pantoprazole Sodium 40 mg 03/09/19 10:00 03/10/19 10:50 Protonix Iv IVPUSH 40 mg DAILY RONALD Administration Sevelamer Carbonate 800 mg 03/08/19 22:00 03/10/19 14:42 Renvela - PO Not Given TID RONALD Impression 1. ESRD 2. vomiting 3. gout 4. HTN 5. CHF 6. DM 7. hx bipolar 8. MOLLY 9. non compliance Plan - bp meds held - pt refused HD - will change orders to tomorrow - compliance has been a long standing issue - follow cultures - GI follow up - epogen for anemia
--- NOTE | 2019-03-10 16:58 | PN ---
Progress Note (short form) - Note Progress Note: Patient was seen this afternoon and was tolerating clear liquids abdomen: soft, non tender, normal tympanni A> intractable nausea and vomiitng r/o secondary to ileus and gastroparesis vs gastritiws, PUD R> continue IV Reglan and Zofran will schedule for EGD if no improvement with present medical management Dr Be is covering this weekend Problem List - Problems (1) GI bleed Code(s): K92.2 - GASTROINTESTINAL HEMORRHAGE, UNSPECIFIED (2) Nausea & vomiting Code(s): R11.2 - NAUSEA WITH VOMITING, UNSPECIFIED
[2019-03-10] MEDS ORDERED: EPOETIN ALFA 2,000 UNIT/1 ML VIAL IVPUSH ONE (19:23)
[2019-03-11] MEDS: METOCLOPRAMIDE HCL INJECTION 10 MG/2 ML VIAL IVPUSH SCH ×3 (02:20→17:42)
[2019-03-11] MEDS: SEVELAMER CARBONATE 800 MG TAB (FP) PO SCH ×3 (05:44→21:57)
[2019-03-11] MEDS: PANTOPRAZOLE SODIUM 40 MG VIAL IVPUSH SCH (09:46)
[2019-03-11] MEDS: ONDANSETRON 4 MG/2 ML VIAL IVPUSH PRN ×2 (09:46→16:13)
[2019-03-11] MEDS: ARIPiprazole 10 MG TABLET PO SCH ×2 (10:00→16:18)
--- NOTE | 2019-03-11 10:36 | PN ---
Progress Note (short form) - Note Progress Note: Renal follow up for ESRD on HD Coverage for Dr. Raphael Pt seen and examined at the bedside continues to have emesis no chest pain, abd pain, or diarrhea for dialysis today Vital Signs Temperature 98.7 F 03/11/19 10:15 Pulse Rate 113 H 03/11/19 10:15 Respiratory Rate 18 03/11/19 10:15 Blood Pressure 126/81 03/11/19 10:15 O2 Sat by Pulse Oximetry (%) 98 03/11/19 09:00 Intake & Output 03/08/19 03/09/19 03/10/19 03/11/19 23:59 23:59 23:59 23:59 Intake Total 500 1300 850 10 Output Total 50 200 Balance 500 1250 650 10 Weight 104.326 kg 105.29 kg 108.097 kg 108.125 kg NAD awake and alert neck supple RRR CTA soft NT/ND No LE edema CBC, BMP 03/09/19 07:45 03/09/19 07:45 Current Medications Aripiprazole (Abilify) 10 mg PO DAILY [facility] Last Admin: 03/10/19 10:50 Dose: 10 mg Epoetin Shawn (Epogen -) 10,000 unit IVPUSH ONCE ONE Stop: 03/11/19 06:01 Sodium Chloride (Normal Saline -) 250 mls @ 3,000 mls/hr IV PRN PRN PRN Reason: Hypotension during Dialysis Stop: 03/10/19 19:23 Metoclopramide HCl (Reglan Injection -) 10 mg IVPUSH Q8H [facility] Last Admin: 03/11/19 09:46 Dose: 10 mg Ondansetron HCl (Zofran Injection) 4 mg IVPUSH Q4H PRN PRN Reason: NAUSEA AND/OR VOMITING Last Admin: 03/11/19 09:46 Dose: 4 mg Pantoprazole Sodium (Protonix Iv) 40 mg IVPUSH DAILY [facility] Last Admin: 03/11/19 09:46 Dose: 40 mg Sevelamer Carbonate (Renvela -) 800 mg PO TID [facility] Last Admin: 03/11/19 05:44 Dose: Not Given 59 year old male with pmhx of esrd, htn. hld, bipolar, and non compliance who presents to the er with epigastric pain and hematemesis. Impression 1. ESRD 2. vomiting due to gastroparesis 3. gout 4. HTN 5. CHF 6. DM 7. hx bipolar 8. MOLLY 9. non compliance Plan For dialysis today, pt is agreeable to go continue zofran for nausea GI following holding antihypertensives as bp is well controlled Trend electrolytes daily Zhou Webb DO
--- NOTE | 2019-03-11 11:15 | PN ---
Progress Note (short form) - Note Progress Note: No distress no vomiting wants to eat Vital Signs - 24 hr 03/10/19 03/10/19 03/11/19 16:00 22:00 07:38 Temperature 98.3 F 98.0 F 97.9 F Pulse Rate 108 H 101 H 106 H Respiratory 90 H 20 16 Rate Blood Pressure 113/68 111/67 100/69 O2 Sat by Pulse 98 Oximetry (%) 03/11/19 03/11/19 03/11/19 08:11 09:00 10:15 Temperature 98.7 F 98.7 F Pulse Rate 110 H 113 H Respiratory 18 18 Rate Blood Pressure 111/75 126/81 O2 Sat by Pulse 98 Oximetry (%) Current Medications Generic Name Dose Route Start Last Admin Trade Name Freq PRN Reason Stop Dose Admin Aripiprazole 10 mg 03/09/19 10:00 03/10/19 10:50 Abilify PO 10 mg DAILY [facility] Administration Epoetin Shawn 10,000 unit 03/11/19 06:00 Epogen - IVPUSH 03/11/19 06:01 ONCE ONE Sodium Chloride 250 mls @ 3,000 mls/hr 03/09/19 19:23 Normal Saline - IV 03/10/19 19:23 PRN PRN Hypotension during Dialysis Metoclopramide HCl 10 mg 03/08/19 18:15 03/11/19 09:46 Reglan Injection - IVPUSH 10 mg Q8H [facility] Administration Ondansetron HCl 4 mg 03/08/19 02:30 03/11/19 09:46 Zofran Injection IVPUSH 4 mg Q4H PRN Administration NAUSEA AND/OR VOMITING Pantoprazole Sodium 40 mg 03/09/19 10:00 03/11/19 09:46 Protonix Iv IVPUSH 40 mg DAILY [facility] Administration Sevelamer Carbonate 800 mg 03/08/19 22:00 03/11/19 05:44 Renvela - PO Not Given TID RONALD Laboratory Results - last 24 hr 03/10/19 03/11/19 22:56 05:42 POC Glucometer 86 79 S1 S2 RRR Lungs decreased Abd- soft, tender epigastrium No edema A/P CT abd/pelvis-- negative blood cultures pending advance diet Needs dialysis on protonix Problem List - Problems (1) GI bleed Code(s): K92.2 - GASTROINTESTINAL HEMORRHAGE, UNSPECIFIED (2) Nausea & vomiting Code(s): R11.2 - NAUSEA WITH VOMITING, UNSPECIFIED (3) ESRD needing dialysis Code(s): N18.6 - END STAGE RENAL DISEASE; Z99.2 - DEPENDENCE ON RENAL DIALYSIS
[2019-03-11] MEDS ORDERED: SODIUM CHLORIDE 250 ML IV PRN (11:50)
[2019-03-11] MEDS ORDERED: EPOETIN ALFA 10,000 UNIT/1 ML VIAL IVPUSH ONE (12:00)
[2019-03-11 13:07] LABS: HEMATOCRIT 27.6 % (35.4-49); HEMOGLOBIN 8.8 GM/dL (11.7-16.9); MCH 25.7 pg (25.7-33.7); MCHC 31.9 g/dl (32.0-35.9); MEAN CELL VOLUME 80.6 fl (80-96); MEAN PLT VOLUME 8.3 fl (7.5-11.1); PLATELET COUNT 144 K/MM3 (134-434); RBC 3.42 M/mm3 (4.00-5.60); RDW 20.3 % (11.9-15.9)
[2019-03-11 13:26] LABS: BLOOD UREA NITROGEN 58.1 mg/dL (7-18); CALCIUM 9.3 mg/dL (8.5-10.1); POTASSIUM 3.9 mmol/L (3.5-5.1)
[2019-03-11 13:27] LABS: CREATININE 14.5 mg/dL (0.55-1.3)
[2019-03-11] MEDS ORDERED: PT OWN MED DRAWER 7, Y5N ONE (16:03)
[2019-03-12] MEDS: METOCLOPRAMIDE HCL INJECTION 10 MG/2 ML VIAL IVPUSH SCH ×3 (02:04→18:24)
[2019-03-12] MEDS: SEVELAMER CARBONATE 800 MG TAB (FP) PO SCH ×4 (06:19→21:50)
--- NOTE | 2019-03-12 11:02 | PN ---
Progress Note (short form) - Note Progress Note: Pt refusing to eat, says he continues to vomit up everything he eats. Will not allow abdominal exam -- pushes my hands away. Labs somewhat improved. According to nursing notes he has vomited several times. Will try upper GI series to exclude gastric outlet obstruction; however, when I review the CT from a few days ago the stomach is not distended, making gastric outlet obstruction unlikely.
--- NOTE | 2019-03-12 11:04 | PN ---
Progress Note (short form) - Note Progress Note: No distress still vomiting , but does not want to change his diet Vital Signs - 24 hr 03/11/19 03/11/19 03/12/19 21:00 22:03 15:38 Temperature 97.7 F Pulse Rate 122 H 110 H Respiratory 20 20 20 Rate Blood Pressure 96/73 110/67 O2 Sat by Pulse 98 Oximetry (%) Current Medications Generic Name Dose Route Start Last Admin Trade Name Freq PRN Reason Stop Dose Admin Aripiprazole 10 mg 03/09/19 10:00 03/12/19 11:16 Abilify PO Not Given DAILY [facility] Metoclopramide HCl 10 mg 03/08/19 18:15 03/12/19 18:24 Reglan Injection - IVPUSH Not Given Q8H [facility] Metoprolol Succinate 25 mg 03/12/19 20:00 Toprol Xl - PO DAILY [facility] Ondansetron HCl 4 mg 03/08/19 02:30 03/11/19 16:13 Zofran Injection IVPUSH 4 mg Q4H PRN Administration NAUSEA AND/OR VOMITING Pantoprazole Sodium 40 mg 03/09/19 10:00 03/12/19 11:17 Protonix Iv IVPUSH Not Given DAILY [facility] Sevelamer Carbonate 800 mg 03/08/19 22:00 03/12/19 13:46 Renvela - PO Not Given TID RONALD Laboratory Results - last 24 hr 03/11/19 03/12/19 12:10 06:16 POC Glucometer 85 Hep Bs Antigen Negative Hep C Ab Diagnostic <0.1 S1 S2 RRR Lungs decreased Abd- soft, tender epigastrium No edema A/P CT abd/pelvis-- negative theres subcutaneous collection in left gluteal area- pt not allowing me to turn him blood cultures negative change to full liquids if vomiting wound care eval hd per renal on protonix Problem List - Problems (1) GI bleed Code(s): K92.2 - GASTROINTESTINAL HEMORRHAGE, UNSPECIFIED (2) Nausea & vomiting Code(s): R11.2 - NAUSEA WITH VOMITING, UNSPECIFIED (3) ESRD needing dialysis Code(s): N18.6 - END STAGE RENAL DISEASE; Z99.2 - DEPENDENCE ON RENAL DIALYSIS
[2019-03-12] MEDS: ARIPiprazole 10 MG TABLET PO SCH (11:16)
[2019-03-12] MEDS: PANTOPRAZOLE SODIUM 40 MG VIAL IVPUSH SCH (11:17)
[2019-03-12] MEDS ORDERED: VANCOMYCIN 1 GM in D5W (PRE-DOCKED) 1,000 MG/250 ML IVPB ONE (19:53)
[2019-03-12] MEDS: metoPROLOL SUCCINATE 25 MG TAB.SR.24H (FP) PO SCH ×2 (21:48→21:50)
[2019-03-13] MEDS: METOCLOPRAMIDE HCL INJECTION 10 MG/2 ML VIAL IVPUSH SCH ×3 (02:11→18:15)
[2019-03-13] MEDS: SEVELAMER CARBONATE 800 MG TAB (FP) PO SCH ×3 (05:32→21:29)
--- NOTE | 2019-03-13 09:13 | CONSULT ---
- Consultation REQUESTING PROVIDER: CONSULT REQUEST: We have been asked to surgically evaluate this patient for ( gluteal abscess). PCP:Earnestine Shah HISTORY OF PRESENT ILLNESS: 59 y/o M w/ PMHx esrd on HD via PC, htn, hld, bipolar d/o, schizophrenia, and non compliance admitted 03/08 with epigastric pain and hematemesis. CT scan done for evaluation of abdominal pain revealing approx [id number] subcutaneous fluid collection. Vascular consulted for further evaluation. Pt denies pain, fever/chills. PMHx: as above PSHx: denies Home Medications Medication Instructions Recorded Acetaminophen [Tylenol] 650 mg PO ASDIR 03/08/19 Allopurinol [Zyloprim -] 100 mg PO DAILY 03/08/19 Alprazolam [Xanax] 0.5 mg PO ASDIR 03/08/19 Aripiprazole [Abilify] 10 mg PO DAILY 03/08/19 Atorvastatin Ca [Lipitor] 40 mg PO HS 03/08/19 Carvedilol 25 mg PO BID 03/08/19 Hydralazine HCl 100 mg PO TID 03/08/19 Nifedipine [Nifedipine ER] 60 mg PO DAILY 03/08/19 Pantoprazole Sodium [Protonix] 40 mg PO DAILY 03/08/19 Sevelamer Carbonate 800 mg PO TID 03/08/19 Silver Sulfadiazine [Silvadene] 1 applic TP ASDIR 03/08/19 Zinc Sulfate 220 mg PO DAILY 03/08/19 Allergies Allergy/AdvReac Type Severity Reaction Status Date / Time No Known Allergies Allergy Verified 02/06/19 18:28 REVIEW OF SYSTEMS: CONSTITUTIONAL: Absent: fever, chills RESPIRATORY: Absent: cough, shortness of breath PHYSICAL EXAM: GENERAL: Awake, alert, in no acute distress. HEAD: Normal with no signs of trauma. LUNGS: Unlabored on RA. Sacrum: Left gluteal fold with large (approx 5x3cm area) of induration. Does not appear to be ttp, Multiple small areas of skin excoriation, clean based no erythema or drainage. Vital Signs Temperature 97.8 F 03/13/19 06:00 Pulse Rate 78 03/13/19 06:00 Respiratory Rate 20 03/12/19 23:11 Blood Pressure 120/76 03/13/19 06:00 O2 Sat by Pulse Oximetry (%) 97 03/12/19 21:00 Lab Results WBC 10.0 K/mm3 (4.0-10.0) 03/11/19 12:15 RBC 3.42 M/mm3 (4.00-5.60) L 03/11/19 12:15 Hgb 8.8 GM/dL (11.7-16.9) L 03/11/19 12:15 Hct 27.6 % (35.4-49) L 03/11/19 12:15 MCV 80.6 fl (80-96) 03/11/19 12:15 MCHC 31.9 g/dl (32.0-35.9) L 03/11/19 12:15 RDW 20.3 % (11.9-15.9) H 03/11/19 12:15 Plt Count 144 K/MM3 (134-434) 03/11/19 12:15 Sodium 133 mmol/L (136-145) L 03/11/19 11:42 Potassium 3.9 mmol/L (3.5-5.1) 03/11/19 11:42 Chloride 92 mmol/L (98-107) L 03/11/19 11:42 Carbon Dioxide 24 mmol/L (21-32) 03/11/19 11:42 Anion Gap 17 MMOL/L (8-16) H 03/11/19 11:42 BUN 58.1 mg/dL (7-18) H 03/11/19 11:42 Creatinine 14.5 mg/dL (0.55-1.3) H* 03/11/19 11:42 Random Glucose 68 mg/dL (74-106) L 03/11/19 11:42 Calcium 9.3 mg/dL (8.5-10.1) 03/11/19 11:42 Blood Type A POSITIVE 03/08/19 11:55 Antibody Screen Negative 03/08/19 11:55 INR 1.30 (0.83-1.09) H 03/08/19 11:55 CT scan (abdo/pelvis) 03/08/19: An approx [id number] subcutaneous fluid collection is seen along the left gluteal fold superiorly which may be acute or chronic in nature. Adjacent subcuanteous soft tissue induration is seen. A/P: 59 y/o M w/ PMHx esrd on HD via PC, htn, hld, bipolar d/o, schizophrenia, and non compliance admitted 03/08 with epigastric pain and hematemesis. CT scan done for evaluation of abdominal pain revealing approx [id number] subcutaneous fluid collection. Vascular consulted for further evaluation. Pt with left gluteal abscess. Pt refusing I&D/surgery for abscess. Reports that he makes his own medical decisions. Per EMR pt refusing multiple other studies as well as HD. Pt afebrile, VSS, no leukocytosis. D/w Dr Argueta, requesting Dr Tobar for consult. Medical attending aware Will discuss with Dr Tobar. May need to consider psych eval for capacity.
[2019-03-13] MEDS: PANTOPRAZOLE SODIUM 40 MG VIAL IVPUSH SCH (10:00)
[2019-03-13] MEDS: ARIPiprazole 10 MG TABLET PO SCH (10:00)
[2019-03-13] MEDS: metoPROLOL SUCCINATE 25 MG TAB.SR.24H (FP) PO SCH (10:00)
--- NOTE | 2019-03-13 12:22 | PN ---
Progress Note (short form) - Note Progress Note: pt seen/ examined chart reviewed awake/ comfortable feels same Non compliant with treatment/ advise as always. Vital Signs Temp 97.8 F 03/13/19 06:00 Pulse 78 03/13/19 06:00 Resp 20 03/12/19 23:11 BP 120/76 03/13/19 06:00 Pulse Ox 97 03/12/19 21:00 Intake & Output 03/12/19 03/13/19 03/13/19 23:59 11:59 23:59 Intake Total 50 Balance 50 Weight 225 lb 6.4 oz Intake: Oral 50 Other: Voiding Method Incontinent Weight Measurement Method Built in [facility] Active Medications Aripiprazole (Abilify) 10 mg PO DAILY [facility] Last Admin: 03/13/19 10:00 Dose: Not Given Metoclopramide HCl (Reglan Injection -) 10 mg IVPUSH Q8H [facility] Last Admin: 03/13/19 10:00 Dose: Not Given Metoprolol Succinate (Toprol Xl -) 25 mg PO DAILY [facility] Last Admin: 03/13/19 10:00 Dose: Not Given Ondansetron HCl (Zofran Injection) 4 mg IVPUSH Q4H PRN PRN Reason: NAUSEA AND/OR VOMITING Last Admin: 03/11/19 16:13 Dose: 4 mg Pantoprazole Sodium (Protonix Iv) 40 mg IVPUSH DAILY [facility] Last Admin: 03/13/19 10:00 Dose: Not Given Sevelamer Carbonate (Renvela -) 800 mg PO TID [facility] Last Admin: 03/13/19 05:32 Dose: Not Given CBC, BMP 03/11/19 12:15 03/11/19 11:42 S1 S2 RRR Lungs decreased Abd- soft, No edema alert/ awake a/p surgical and i/d consults- for buttock abscess-- Continue present care compliance issues dialysis per renal will follow.
--- NOTE | 2019-03-13 13:25 | PN ---
Progress Note, Physician Chief Complaint: GI FOLLOW UP NOTE Patient examined and case discussed with Dr Fernandez Patient complain of abdominal pain and continue to have episodes of clear vomitus. Denies dysphagia, heartburn, constipation, diarrhea. Patient has been refusing upper GI series. - Current Medication List Current Medications: Active Medications Aripiprazole (Abilify) 10 mg PO DAILY [facility] Last Admin: 03/13/19 10:00 Dose: Not Given Metoclopramide HCl (Reglan Injection -) 10 mg IVPUSH Q8H [facility] Last Admin: 03/13/19 10:00 Dose: Not Given Metoprolol Succinate (Toprol Xl -) 25 mg PO DAILY [facility] Last Admin: 03/13/19 10:00 Dose: Not Given Ondansetron HCl (Zofran Injection) 4 mg IVPUSH Q4H PRN PRN Reason: NAUSEA AND/OR VOMITING Last Admin: 03/11/19 16:13 Dose: 4 mg Pantoprazole Sodium (Protonix Iv) 40 mg IVPUSH DAILY [facility] Last Admin: 03/13/19 10:00 Dose: Not Given Sevelamer Carbonate (Renvela -) 800 mg PO TID [facility] Last Admin: 03/13/19 05:32 Dose: Not Given - Objective Vital Signs: Vital Signs Temperature 97.8 F 03/13/19 06:00 Pulse Rate 78 03/13/19 06:00 Respiratory Rate 20 03/12/19 23:11 Blood Pressure 120/76 03/13/19 06:00 O2 Sat by Pulse Oximetry (%) 97 03/12/19 21:00 Constitutional: Yes: No Distress, Calm, Obese Eyes: Yes: Conjunctiva Clear Cardiovascular: Yes: Regular Rate and Rhythm Respiratory: Yes: Regular, CTA Bilaterally Gastrointestinal: Yes: Normal Bowel Sounds, Soft Musculoskeletal: Yes: Muscle Weakness Extremities: Yes: WNL Edema: No Neurological: Yes: Alert, Oriented Psychiatric: Yes: Alert, Oriented Labs: CBC, BMP 03/11/19 12:15 03/11/19 11:42 INR, PTT INR 1.30 (0.83-1.09) H 03/08/19 11:55 Problem List - Problems (1) GI bleed Assessment/Plan: R>Pantoprazole >Stool OB ordered >will hold off on endoscopy at this time until patient is medically stable Code(s): K92.2 - GASTROINTESTINAL HEMORRHAGE, UNSPECIFIED (2) Nausea & vomiting Assessment/Plan: R> Reglan IVPB >patient has been refusing upper GI series -FUA reviewed Code(s): R11.2 - NAUSEA WITH VOMITING, UNSPECIFIED
--- NOTE | 2019-03-13 15:59 | PN ---
Progress Note, Physician History of Present Illness: Pt seen and examined at bedside. He is refusing HD today. He denies shortness of breath. - Current Medication List Current Medications: Active Medications Aripiprazole (Abilify) 10 mg PO DAILY [facility] Last Admin: 03/13/19 10:00 Dose: Not Given Metoclopramide HCl (Reglan Injection -) 10 mg IVPUSH Q8H [facility] Last Admin: 03/13/19 10:00 Dose: Not Given Metoprolol Succinate (Toprol Xl -) 25 mg PO DAILY [facility] Last Admin: 03/13/19 10:00 Dose: Not Given Ondansetron HCl (Zofran Injection) 4 mg IVPUSH Q4H PRN PRN Reason: NAUSEA AND/OR VOMITING Last Admin: 03/11/19 16:13 Dose: 4 mg Pantoprazole Sodium (Protonix Iv) 40 mg IVPUSH DAILY [facility] Last Admin: 03/13/19 10:00 Dose: Not Given Sevelamer Carbonate (Renvela -) 800 mg PO TID [facility] Last Admin: 03/13/19 14:14 Dose: Not Given - Objective Vital Signs: Vital Signs Temperature 97.5 F L 03/13/19 14:00 Pulse Rate 120 H 03/13/19 14:00 Respiratory Rate 18 03/13/19 14:00 Blood Pressure 114/74 03/13/19 14:00 O2 Sat by Pulse Oximetry (%) 97 03/12/19 21:00 Constitutional: Yes: Calm Eyes: Yes: Conjunctiva Clear HENT: Yes: Atraumatic Neck: Yes: Supple Cardiovascular: Yes: S1, S2 Respiratory: Yes: CTA Bilaterally Gastrointestinal: Yes: Soft Genitourinary: Yes: WNL Musculoskeletal: Yes: WNL Edema: No Neurological: Yes: Oriented Psychiatric: Yes: Oriented Labs: CBC, BMP 03/11/19 12:15 03/11/19 11:42 INR, PTT INR 1.30 (0.83-1.09) H 03/08/19 11:55 Problem List - Problems (1) GI bleed Code(s): K92.2 - GASTROINTESTINAL HEMORRHAGE, UNSPECIFIED (2) Nausea & vomiting Code(s): R11.2 - NAUSEA WITH VOMITING, UNSPECIFIED (3) ESRD needing dialysis Code(s): N18.6 - END STAGE RENAL DISEASE; Z99.2 - DEPENDENCE ON RENAL DIALYSIS Assessment/Plan Current Medications Generic Name Dose Route Start Last Admin Trade Name Freq PRN Reason Stop Dose Admin Aripiprazole 10 mg 03/09/19 10:00 03/13/19 10:00 Abilify PO Not Given DAILY [facility] Metoclopramide HCl 10 mg 03/08/19 18:15 03/13/19 10:00 Reglan Injection - IVPUSH Not Given Q8H [facility] Metoprolol Succinate 25 mg 03/12/19 20:00 03/13/19 10:00 Toprol Xl - PO Not Given DAILY [facility] Ondansetron HCl 4 mg 03/08/19 02:30 03/11/19 16:13 Zofran Injection IVPUSH 4 mg Q4H PRN Administration NAUSEA AND/OR VOMITING Pantoprazole Sodium 40 mg 03/09/19 10:00 03/13/19 10:00 Protonix Iv IVPUSH Not Given DAILY [facility] Sevelamer Carbonate 800 mg 03/08/19 22:00 03/13/19 14:14 Renvela - PO Not Given TID [facility]ONALD Microbiology 03/10/19 12:20 Blood - Peripheral Venous Blood Culture - Preliminary NO GROWTH OBTAINED AFTER 72 HOURS, INCUBATION TO CONTINUE FOR 2 DAYS. 03/10/19 12:10 Blood - Peripheral Venous Blood Culture - Preliminary NO GROWTH OBTAINED AFTER 72 HOURS, INCUBATION TO CONTINUE FOR 2 DAYS. Impression 1. ESRD 2. vomiting 3. gout 4. HTN 5. CHF 6. DM 7. hx bipolar 8. MOLLY 9. non compliance Plan - HD tomorrow - pt tolerating diet - compliance remains a problem - cultures neg to date - epogen for anemia
--- NOTE | 2019-03-13 18:35 | CONSULT ---
Consult Consult Specialty:: Surgery Referred by:: Abel Reason for Consultation:: R/O left buttock abscess. - History of Present Illness Chief Complaint: Patient has no complaints. From [place] with ESRD, schizophrenia, , hypertension , incontinent to stool. asked to evaluate some induration in left buttock, for abscess. Patient has no pain in buttock. He is being evaluated for vomiting. - History Source History Provided By: Medical Record Limitations to Obtaining History: Clinical Condition - Past Medical History Cardio/Vascular: Yes: CHF, HTN, Hyperlipdemia Pulmonary: Yes: COPD Renal/: Yes: Renal Failure, Renal Inusuff, Hemodialysis Psych: Yes: Bipolar, Schizophrenia Musculoskeletal: Yes: Other (Slight edema of the skin in left buttock , no pain , not tender, there is superficial breakdown of the skin of left buttock.) Rheumatology: Yes: Gout Additional Medical History: obesity, non compliance - Alcohol/Substance Use Hx Alcohol Use: No - Smoking History Smoking history: Never smoked Have you smoked in the past 12 months: No Aproximately how many cigarettes per day: 0 - Social History Usual Living Arrangement: Care Home ADL: Support Services Occupation: disability History of Recent Travel: No Home Medications - Allergies Allergies/Adverse Reactions: Allergies Allergy/AdvReac Type Severity Reaction Status Date / Time No Known Allergies Allergy Verified 02/06/19 18:28 - Home Medications Home Medications: Ambulatory Orders Acetaminophen [Tylenol] 650 mg PO ASDIR 03/08/19 Allopurinol [Zyloprim -] 100 mg PO DAILY 03/08/19 Alprazolam [Xanax] 0.5 mg PO ASDIR 03/08/19 Aripiprazole [Abilify] 10 mg PO DAILY 03/08/19 Atorvastatin Ca [Lipitor] 40 mg PO HS 03/08/19 Carvedilol 25 mg PO BID 03/08/19 Hydralazine HCl 100 mg PO TID 03/08/19 Nifedipine [Nifedipine ER] 60 mg PO DAILY 03/08/19 Pantoprazole Sodium [Protonix] 40 mg PO DAILY 03/08/19 Sevelamer Carbonate 800 mg PO TID 03/08/19 Silver Sulfadiazine [Silvadene] 1 applic TP ASDIR 03/08/19 Zinc Sulfate 220 mg PO DAILY 03/08/19 Family Disease History - Family Disease History Family Disease History: Heart Disease: Father (HTN) Physical Exam Vital Signs: Vital Signs Temperature 97.5 F L 03/13/19 14:00 Pulse Rate 120 H 03/13/19 14:00 Respiratory Rate 18 03/13/19 14:00 Blood Pressure 114/74 03/13/19 14:00 O2 Sat by Pulse Oximetry (%) 97 03/12/19 21:00 ...Rectal Exam: Yes: Other (No abscees, swelling , tenderness of left buttock. Early breakdown of skin of left buttock.) Labs: CBC, BMP 03/11/19 12:15 03/11/19 11:42 Problem List - Problems (1) ESRD needing dialysis Code(s): N18.6 - END STAGE RENAL DISEASE; Z99.2 - DEPENDENCE ON RENAL DIALYSIS (2) Chronic diastolic heart failure Code(s): I50.32 - CHRONIC DIASTOLIC (CONGESTIVE) HEART FAILURE (3) Hypertension Code(s): I10 - ESSENTIAL (PRIMARY) HYPERTENSION Qualifiers: Hypertension type: unspecified Qualified Code(s): I10 - Essential (primary ) hypertension (4) Inability to ambulate due to multiple joints Code(s): R26.2 - DIFFICULTY IN WALKING, NOT ELSEWHERE CLASSIFIED (5) Morbid (severe) obesity due to excess calories Code(s): E66.01 - MORBID (SEVERE) OBESITY DUE TO EXCESS CALORIES (6) Stage 4 chronic kidney disease Code(s): N18.4 - CHRONIC KIDNEY DISEASE, STAGE 4 (SEVERE) (7) Type 2 diabetes mellitus Code(s): E11.9 - TYPE 2 DIABETES MELLITUS WITHOUT COMPLICATIONS Qualifiers: 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 chcf insulin use status Diabetes mellitus complication status: with unspecified complications Assessment/Plan No perianal , or buttock abscess noted, . Early pressure ulcer/ skin breakdown noted.
[2019-03-13] MEDS: ONDANSETRON 4 MG/2 ML VIAL IVPUSH PRN (19:15)
[2019-03-14] MEDS: METOCLOPRAMIDE HCL INJECTION 10 MG/2 ML VIAL IVPUSH SCH ×3 (02:59→18:20)
[2019-03-14] MEDS: SEVELAMER CARBONATE 800 MG TAB (FP) PO SCH ×3 (05:59→22:59)
--- NOTE | 2019-03-14 09:01 | PN ---
Progress Note, Physician Chief Complaint: GI FOLLOW UP NOTE Patient examined and case discussed with Dr Fernandez Patient complain of abdominal pain. Patient denies having episodes of vomiting during the night. Denies dysphagia, heartburn, constipation, diarrhea. Patient has been refusing upper GI series. - Current Medication List Current Medications: Active Medications Aripiprazole (Abilify) 10 mg PO DAILY [facility] Last Admin: 03/13/19 10:00 Dose: Not Given Epoetin Shawn (Procrit -) 10,000 unit IVPUSH ONCE ONE Stop: 03/14/19 16:00 Sodium Chloride (Normal Saline -) 250 mls @ 3,000 mls/hr IV PRN PRN PRN Reason: Hypotension during Dialysis Stop: 03/14/19 15:59 Metoclopramide HCl (Reglan Injection -) 10 mg IVPUSH Q8H [facility] Last Admin: 03/14/19 02:59 Dose: Not Given Metoprolol Succinate (Toprol Xl -) 25 mg PO DAILY [facility] Last Admin: 03/13/19 10:00 Dose: Not Given Ondansetron HCl (Zofran Injection) 4 mg IVPUSH Q4H PRN PRN Reason: NAUSEA AND/OR VOMITING Last Admin: 03/13/19 19:15 Dose: 4 mg Pantoprazole Sodium (Protonix Iv) 40 mg IVPUSH DAILY [facility] Last Admin: 03/13/19 10:00 Dose: Not Given Sevelamer Carbonate (Renvela -) 800 mg PO TID [facility] Last Admin: 03/14/19 05:59 Dose: Not Given - Objective Vital Signs: Vital Signs Temperature 98.2 F 03/14/19 07:31 Pulse Rate 110 H 03/14/19 07:31 Respiratory Rate 20 03/14/19 07:31 Blood Pressure 109/79 03/14/19 07:31 O2 Sat by Pulse Oximetry (%) 100 03/13/19 09:00 Constitutional: Yes: No Distress, Calm, Obese Eyes: Yes: Conjunctiva Clear HENT: Yes: Atraumatic Cardiovascular: Yes: Regular Rate and Rhythm Respiratory: Yes: Regular, CTA Bilaterally Gastrointestinal: Yes: Normal Bowel Sounds, Abdomen, Obese, Tenderness (diffuse) Neurological: Yes: Alert, Oriented Psychiatric: Yes: Alert, Oriented Labs: CBC, BMP 03/11/19 12:15 03/11/19 11:42 INR, PTT INR 1.30 (0.83-1.09) H 03/08/19 11:55 Problem List - Problems (1) GI bleed Assessment/Plan: R>Pantoprazole >Stool OB ordered >will hold off on endoscopy at this time until patient is medically stable Code(s): K92.2 - GASTROINTESTINAL HEMORRHAGE, UNSPECIFIED (2) Nausea & vomiting Assessment/Plan: R> continue with Reglan IVPB >patient has been refusing upper GI series -FUA reviewed Code(s): R11.2 - NAUSEA WITH VOMITING, UNSPECIFIED
[2019-03-14] MEDS ORDERED: SODIUM CHLORIDE 250 ML IV PRN (09:59)
[2019-03-14] MEDS ORDERED: EPOETIN ALFA 10,000 UNIT/1 ML VIAL IVPUSH ONE (10:00)
[2019-03-14 11:15] LABS: HEMATOCRIT 28.1 % (35.4-49); HEMOGLOBIN 8.8 GM/dL (11.7-16.9); MCH 25.3 pg (25.7-33.7); MCHC 31.2 g/dl (32.0-35.9); MEAN PLT VOLUME 7.7 fl (7.5-11.1); PLATELET COUNT 167 K/MM3 (134-434); RBC 3.46 M/mm3 (4.00-5.60); RDW 20.1 % (11.9-15.9); WHITE BLOOD COUNT 9.4 K/mm3 (4.0-10.0)
[2019-03-14] MEDS ORDERED: PT OWN MED DRAWER 7, Y5N ONE (11:39)
[2019-03-14 11:44] LABS: BLOOD UREA NITROGEN 29.8 mg/dL (7-18); CALCIUM 8.9 mg/dL (8.5-10.1); POTASSIUM 3.6 mmol/L (3.5-5.1)
[2019-03-14 12:34] LABS: CREATININE 10.4 mg/dL (0.55-1.3)
--- NOTE | 2019-03-14 13:03 | PN ---
Progress Note (short form) - Note Progress Note: No distress nausea no pain in back does not want to examined pt examined in dialysis Vital Signs - 24 hr 03/14/19 03/14/19 03/14/19 07:31 09:30 09:45 Temperature 98.2 F Pulse Rate 110 H 113 H 108 H Respiratory 20 18 18 Rate Blood Pressure 109/79 112/75 109/75 03/14/19 03/14/19 03/14/19 10:15 10:45 11:15 Temperature Pulse Rate 119 H 116 H 111 H Respiratory 18 18 18 Rate Blood Pressure 98/53 L 98/71 93/67 03/14/19 03/14/19 03/14/19 11:45 12:15 12:45 Temperature Pulse Rate 117 H 119 H 120 H Respiratory 18 18 18 Rate Blood Pressure 103/60 93/68 105/74 03/14/19 13:00 Temperature Pulse Rate 115 H Respiratory 18 Rate Blood Pressure 96/70 Current Medications Generic Name Dose Route Start Last Admin Trade Name Freq PRN Reason Stop Dose Admin Aripiprazole 10 mg 03/09/19 10:00 03/14/19 13:42 Abilify PO 10 mg DAILY [facility] Administration Metoclopramide HCl 10 mg 03/08/19 18:15 03/14/19 13:41 Reglan Injection - IVPUSH 10 mg Q8H [facility] Administration Metoprolol Succinate 25 mg 03/12/19 20:00 03/14/19 13:41 Toprol Xl - PO 25 mg DAILY [facility] Administration Ondansetron HCl 4 mg 03/08/19 02:30 03/13/19 19:15 Zofran Injection IVPUSH 4 mg Q4H PRN Administration NAUSEA AND/OR VOMITING Pantoprazole Sodium 40 mg 03/09/19 10:00 03/14/19 13:42 Protonix Iv IVPUSH 40 mg DAILY [facility] Administration Sevelamer Carbonate 800 mg 03/08/19 22:00 03/14/19 05:59 Renvela - PO Not Given TID [facility] Laboratory Results - last 24 hr 03/14/19 03/14/19 03/14/19 09:25 09:25 13:00 WBC 9.4 RBC 3.46 L Hgb 8.8 L Hct 28.1 L MCV 81.0 MCH 25.3 L MCHC 31.2 L RDW 20.1 H Plt Count 167 MPV 7.7 Sodium 137 Potassium 3.6 Chloride 97 L Carbon Dioxide 27 Anion Gap 14 BUN 29.8 H 6.1 L Creatinine 10.4 H* 2.8 H Est GFR (CKD-EPI)AfAm 5.68 27.76 Est GFR (CKD-EPI)NonAf 4.90 23.95 Random Glucose 69 L Calcium 8.9 S1 S2 RRR Lungs decreased Abd- soft, NT No edema A/P CT abd/pelvis-- negative theres subcutaneous collection in left gluteal area- surgical eval blood cultures negative change to full liquids if vomiting hd per renal on protonix Problem List - Problems (1) GI bleed Code(s): K92.2 - GASTROINTESTINAL HEMORRHAGE, UNSPECIFIED (2) Nausea & vomiting Code(s): R11.2 - NAUSEA WITH VOMITING, UNSPECIFIED (3) ESRD needing dialysis Code(s): N18.6 - END STAGE RENAL DISEASE; Z99.2 - DEPENDENCE ON RENAL DIALYSIS
[2019-03-14 13:38] LABS: BLOOD UREA NITROGEN 6.1 mg/dL (7-18); CREATININE 2.8 mg/dL (0.55-1.3)
[2019-03-14] MEDS: metoPROLOL SUCCINATE 25 MG TAB.SR.24H (FP) PO SCH (13:41)
[2019-03-14] MEDS: ARIPiprazole 10 MG TABLET PO SCH (13:42)
[2019-03-14] MEDS: PANTOPRAZOLE SODIUM 40 MG VIAL IVPUSH SCH (13:42)
--- NOTE | 2019-03-14 16:52 | PN ---
Progress Note (short form) - Note Progress Note: ID CONSULT DICTATED OBSERVE OFF ANTIBIOTICS
--- NOTE | 2019-03-14 17:03 | PN ---
Progress Note, Physician History of Present Illness: Pt seen and examined at bedside. He tolerated HD today. He denies shortness of breath. - Current Medication List Current Medications: Active Medications Aripiprazole (Abilify) 10 mg PO DAILY [facility] Last Admin: 03/14/19 13:42 Dose: 10 mg Metoclopramide HCl (Reglan Injection -) 10 mg IVPUSH Q8H [facility] Last Admin: 03/14/19 13:41 Dose: 10 mg Metoprolol Succinate (Toprol Xl -) 25 mg PO DAILY [facility] Last Admin: 03/14/19 13:41 Dose: 25 mg Ondansetron HCl (Zofran Injection) 4 mg IVPUSH Q4H PRN PRN Reason: NAUSEA AND/OR VOMITING Last Admin: 03/13/19 19:15 Dose: 4 mg Pantoprazole Sodium (Protonix Iv) 40 mg IVPUSH DAILY [facility] Last Admin: 03/14/19 13:42 Dose: 40 mg Sevelamer Carbonate (Renvela -) 800 mg PO TID [facility] Last Admin: 03/14/19 15:48 Dose: Not Given - Objective Vital Signs: Vital Signs Temperature 97.5 F L 03/14/19 15:22 Pulse Rate 117 H 03/14/19 15:22 Respiratory Rate 18 03/14/19 13:00 Blood Pressure 104/77 03/14/19 15:22 O2 Sat by Pulse Oximetry (%) 100 03/13/19 09:00 Constitutional: Yes: Calm Eyes: Yes: Conjunctiva Clear HENT: Yes: Atraumatic Neck: Yes: Supple Cardiovascular: Yes: S1, S2 Respiratory: Yes: CTA Bilaterally Gastrointestinal: Yes: Soft, Abdomen, Obese Genitourinary: Yes: Incontinence Musculoskeletal: Yes: WNL Edema: No Neurological: Yes: Oriented Labs: CBC, BMP 03/14/19 09:25 03/14/19 13:00 INR, PTT INR 1.30 (0.83-1.09) H 03/08/19 11:55 Problem List - Problems (1) GI bleed Code(s): K92.2 - GASTROINTESTINAL HEMORRHAGE, UNSPECIFIED (2) Nausea & vomiting Code(s): R11.2 - NAUSEA WITH VOMITING, UNSPECIFIED (3) ESRD needing dialysis Code(s): N18.6 - END STAGE RENAL DISEASE; Z99.2 - DEPENDENCE ON RENAL DIALYSIS Assessment/Plan Current Medications Generic Name Dose Route Start Last Admin Trade Name Freq PRN Reason Stop Dose Admin Aripiprazole 10 mg 03/09/19 10:00 03/14/19 13:42 Abilify PO 10 mg DAILY [facility] Administration Metoclopramide HCl 10 mg 03/08/19 18:15 03/14/19 13:41 Reglan Injection - IVPUSH 10 mg Q8H [facility] Administration Metoprolol Succinate 25 mg 03/12/19 20:00 03/14/19 13:41 Toprol Xl - PO 25 mg DAILY [facility] Administration Ondansetron HCl 4 mg 03/08/19 02:30 03/13/19 19:15 Zofran Injection IVPUSH 4 mg Q4H PRN Administration NAUSEA AND/OR VOMITING Pantoprazole Sodium 40 mg 03/09/19 10:00 03/14/19 13:42 Protonix Iv IVPUSH 40 mg DAILY [facility] Administration Sevelamer Carbonate 800 mg 03/08/19 22:00 03/14/19 15:48 Renvela - PO Not Given TID [facility] Impression 1. ESRD 2. vomiting 3. gout 4. HTN 5. CHF 6. DM 7. hx bipolar 8. MOLLY 9. non compliance Plan - pt tolerated HD - renal diet - compliance remains a problem - epogen for anemia
--- NOTE | 2019-03-14 20:05 | CONS ---
DATE OF CONSULTATION: DATE OF DICTATION: 03/14/2019 INFECTIOUS DISEASE CONSULTATION HISTORY OF PRESENT ILLNESS: The patient is a 59-year-old male evaluated for soft tissue abscess of the left buttocks. History was obtained from the chart, as he cannot give a reliable history. Patient suffers from bipolar disorder and schizophrenia. He is admitted to the hospital on March 08, 2019, with chest complaints. A CAT scan of the abdomen was performed and showed a soft tissue collection in the area of the left gluteus muscle. The patient denies any pain. No reports of fever or chills. No reports of any infected skin wounds or decubitus ulcers. PAST MEDICAL HISTORY: Positive for end-stage renal disease on dialysis, hypertension, hyperlipidemia, bipolar disorder, schizophrenia. ALLERGIES: No known allergies. MEDICATION: Tylenol, Zyloprim, Xanax, Abilify, Lipitor, hydralazine, carvedilol, nifedipine, Protonix. LABORATORY DATA: White count on admission 14, presently 9.4, hematocrit 28.1, platelets 167, BUN 29, creatinine 10. Blood cultures no growth. PHYSICAL EXAMINATION: General: On examination, he is awake and alert, he is not acutely toxic appearing. Vital signs: Temperature 98.2, blood pressure 96/70, pulse 110 regular, respirations 18 per minute. HEENT: Sclerae anicteric. Cardiovascular: Heart sounds S1, S2. Lungs: Clear. Abdomen: Soft, nontender. Extremities: Examination of the buttocks area, there is some evidence of possible early superficial breakdown of the left buttocks. There is no tenderness elicited, no fluctuance or crepitans, no erythema. No wound drainage. IMPRESSION: 1. Soft tissue collection left gluteus, possible abscess. 2. End-stage renal disease. Patient asymptomatic with respect to CAT scan finding. He is not septic appearing. He has remained afebrile. White blood cell count is now normal. Would observe off antibiotic therapy. Should he develop pain or evidence of infection of the left buttocks, would consider drainage by interventional radiology. For now would observe. Thank you for the kind referral. GENIE ALBARRAN M.D. [id number]
[2019-03-15] MEDS: METOCLOPRAMIDE HCL INJECTION 10 MG/2 ML VIAL IVPUSH SCH ×2 (02:35→11:26)
[2019-03-15] MEDS: SEVELAMER CARBONATE 800 MG TAB (FP) PO SCH ×2 (06:02→14:10)
[2019-03-15] MEDS: ARIPiprazole 10 MG TABLET PO SCH (11:06)
[2019-03-15] MEDS: metoPROLOL SUCCINATE 25 MG TAB.SR.24H (FP) PO SCH (11:07)
[2019-03-15] MEDS: PANTOPRAZOLE SODIUM 40 MG VIAL IVPUSH SCH (11:26)
--- NOTE | 2019-03-15 12:20 | PN ---
Progress Note, Physician History of Present Illness: Pt seen and examined at bedside. He is awake and alert. He says that he feels well. - Current Medication List Current Medications: Active Medications Aripiprazole (Abilify) 10 mg PO DAILY [facility] Last Admin: 03/15/19 11:06 Dose: Not Given Metoclopramide HCl (Reglan Injection -) 10 mg IVPUSH Q8H [facility] Last Admin: 03/15/19 11:26 Dose: Not Given Metoprolol Succinate (Toprol Xl -) 25 mg PO DAILY [facility] Last Admin: 03/15/19 11:07 Dose: Not Given Ondansetron HCl (Zofran Injection) 4 mg IVPUSH Q4H PRN PRN Reason: NAUSEA AND/OR VOMITING Last Admin: 03/13/19 19:15 Dose: 4 mg Pantoprazole Sodium (Protonix Iv) 40 mg IVPUSH DAILY [facility] Last Admin: 03/15/19 11:26 Dose: Not Given Sevelamer Carbonate (Renvela -) 800 mg PO TID [facility] Last Admin: 03/15/19 06:02 Dose: Not Given - Objective Vital Signs: Vital Signs Temperature 98.2 F 03/15/19 05:59 Pulse Rate 118 H 03/15/19 05:59 Respiratory Rate 20 03/15/19 05:59 Blood Pressure 120/68 03/15/19 05:59 O2 Sat by Pulse Oximetry (%) 93 L 03/14/19 21:00 Constitutional: Yes: Calm Cardiovascular: Yes: S1, S2 Respiratory: Yes: CTA Bilaterally Gastrointestinal: Yes: Soft Genitourinary: Yes: WNL Musculoskeletal: Yes: WNL Extremities: Yes: WNL Edema: No Neurological: Yes: Oriented Psychiatric: Yes: Oriented Labs: CBC, BMP 03/14/19 09:25 03/14/19 13:00 INR, PTT INR 1.30 (0.83-1.09) H 03/08/19 11:55 Problem List - Problems (1) GI bleed Code(s): K92.2 - GASTROINTESTINAL HEMORRHAGE, UNSPECIFIED (2) Nausea & vomiting Code(s): R11.2 - NAUSEA WITH VOMITING, UNSPECIFIED (3) ESRD needing dialysis Code(s): N18.6 - END STAGE RENAL DISEASE; Z99.2 - DEPENDENCE ON RENAL DIALYSIS Assessment/Plan Current Medications Generic Name Dose Route Start Last Admin Trade Name Freq PRN Reason Stop Dose Admin Aripiprazole 10 mg 03/09/19 10:00 03/15/19 11:06 Abilify PO Not Given DAILY [facility] Metoclopramide HCl 10 mg 03/08/19 18:15 03/15/19 11:26 Reglan Injection - IVPUSH Not Given Q8H [facility] Metoprolol Succinate 25 mg 03/12/19 20:00 03/15/19 11:07 Toprol Xl - PO Not Given DAILY [facility] Ondansetron HCl 4 mg 03/08/19 02:30 03/13/19 19:15 Zofran Injection IVPUSH 4 mg Q4H PRN Administration NAUSEA AND/OR VOMITING Pantoprazole Sodium 40 mg 03/09/19 10:00 03/15/19 11:26 Protonix Iv IVPUSH Not Given DAILY [facility] Sevelamer Carbonate 800 mg 03/08/19 22:00 03/15/19 06:02 Renvela - PO Not Given TID [facility] Impression 1. ESRD 2. vomiting 3. gout 4. HTN 5. CHF 6. DM 7. hx bipolar 8. MOLLY 9. non compliance Plan - pt is being discharged - renal diet - epogen for anemia - discussed with medical team - discussed compliance with him
--- NOTE | 2019-03-15 12:40 | DS ---
Physical Examination Vital Signs: Vital Signs Temperature 99.1 F 03/15/19 10:00 Pulse Rate 117 H 03/15/19 10:00 Respiratory Rate 20 03/15/19 10:00 Blood Pressure 105/68 03/15/19 10:00 O2 Sat by Pulse Oximetry (%) 93 L 03/14/19 21:00 Constitutional: Yes: No Distress, Calm Cardiovascular: Yes: Regular Rate and Rhythm Respiratory: Yes: CTA Bilaterally Gastrointestinal: Yes: Normal Bowel Sounds, Soft. No: Tenderness Edema: No Labs: CBC, BMP 03/14/19 09:25 03/14/19 13:00 Discharge Summary Reason For Visit: CHEST PAIN Current Active Problems Chest pain (Acute) GI bleed (Acute) Nausea & vomiting (Acute) Sepsis (Acute) Hospital Course: Admitted for vomiting-- was uremic Abd/pelvis CT -- no acute intraabd pathology He has a collection in left gluteal area-- surgeon consulted-- has sacral wound and does not need drainage-- no abscess after dialysis , pt is better not vomiting was initially on antibiotics-- now dc by ID he is afebrile stable for dc to [place] Condition: Good - Instructions Disposition: [facility] - Home Medications Comprehensive Discharge Medication List: Ambulatory Orders Acetaminophen [Tylenol] 650 mg PO ASDIR 03/08/19 Allopurinol [Zyloprim -] 100 mg PO DAILY 03/08/19 Alprazolam [Xanax] 0.5 mg PO ASDIR 03/08/19 Aripiprazole [Abilify] 10 mg PO DAILY 03/08/19 Atorvastatin Ca [Lipitor] 40 mg PO HS 03/08/19 Carvedilol 25 mg PO BID 03/08/19 Hydralazine HCl 100 mg PO TID 03/08/19 Nifedipine [Nifedipine ER] 60 mg PO DAILY 03/08/19 Pantoprazole Sodium [Protonix] 40 mg PO DAILY 03/08/19 Sevelamer Carbonate 800 mg PO TID 03/08/19 Silver Sulfadiazine [Silvadene] 1 applic TP ASDIR 03/08/19 Zinc Sulfate 220 mg PO DAILY 03/08/19
[2019-03-15 22:31] VITALS: BMI 33.0
[2019-03-16] MEDS: SEVELAMER CARBONATE 800 MG TAB (FP) PO SCH (07:00)
[2019-03-16] MEDS: METOCLOPRAMIDE HCL 10 MG TABLET (FP) PO SCH ×2 (07:00→11:00)
--- NOTE | 2019-03-16 09:44 | PN ---
Progress Note, Physician - Current Medication List Current Medications: Active Medications Aripiprazole (Abilify) 10 mg PO DAILY [facility] Last Admin: 03/15/19 11:06 Dose: Not Given Levofloxacin (Levaquin -) 250 mg PO Q48H [facility] Last Admin: 03/15/19 18:17 Dose: 250 mg Metoclopramide HCl (Reglan -) 5 mg PO TIDAC [facility] Metoprolol Succinate (Toprol Xl -) 25 mg PO DAILY [facility] Last Admin: 03/15/19 11:07 Dose: Not Given Pantoprazole Sodium (Protonix -) 40 mg PO DAILY [facility] Sevelamer Carbonate (Renvela -) 800 mg PO TID [facility] Last Admin: 03/15/19 14:10 Dose: Not Given - Objective Vital Signs: Vital Signs Temperature 98.0 F 03/16/19 06:03 Pulse Rate 103 H 03/16/19 06:03 Respiratory Rate 20 03/16/19 06:03 Blood Pressure 120/71 03/16/19 06:03 O2 Sat by Pulse Oximetry (%) 93 L 03/14/19 21:00 Labs: CBC, BMP 03/14/19 09:25 03/14/19 13:00 INR, PTT INR 1.30 (0.83-1.09) H 03/08/19 11:55 Problem List - Problems (1) ESRD needing dialysis Code(s): N18.6 - END STAGE RENAL DISEASE; Z99.2 - DEPENDENCE ON RENAL DIALYSIS (2) Chronic diastolic heart failure Code(s): I50.32 - CHRONIC DIASTOLIC (CONGESTIVE) HEART FAILURE (3) Hypertension Code(s): I10 - ESSENTIAL (PRIMARY) HYPERTENSION Qualifiers: Hypertension type: unspecified Qualified Code(s): I10 - Essential (primary ) hypertension (4) Inability to ambulate due to multiple joints Code(s): R26.2 - DIFFICULTY IN WALKING, NOT ELSEWHERE CLASSIFIED (5) Morbid (severe) obesity due to excess calories Code(s): E66.01 - MORBID (SEVERE) OBESITY DUE TO EXCESS CALORIES (6) Stage 4 chronic kidney disease Code(s): N18.4 - CHRONIC KIDNEY DISEASE, STAGE 4 (SEVERE) (7) Type 2 diabetes mellitus Code(s): E11.9 - TYPE 2 DIABETES MELLITUS WITHOUT COMPLICATIONS 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 To be discharged to [facility]. today. Denies any abdominal pain. He is afebrile, WBC is normal. Buttocks and sacral area inspected. The area of superficial ulceration and dusky skin has progressed, no joy gangrenous skin yet. There are many small areas of skin with some bloody drainage. The openings were probed , only blood has drained. Patient does not appear to have any sensation or pain in buttock. He is obese and not ambulating. His skin loss and decubutii might progress unless the patient ambulates. He responds minimally to verbal commands. Impression : Sacral early decubtii, with underlying fluid , draining . '
[2019-03-16] MEDS: ARIPiprazole 10 MG TABLET PO SCH (09:50)
[2019-03-16] MEDS: metoPROLOL SUCCINATE 25 MG TAB.SR.24H (FP) PO SCH (10:00)
[2019-03-16] MEDS ORDERED: PANTOPRAZOLE 40 MG TABLET (FP) PO SCH (10:00)
[2019-03-16 11:24] LABS: HEMATOCRIT 28.4 % (35.4-49); MCH 26.1 pg (25.7-33.7); MCHC 31.8 g/dl (32.0-35.9); MEAN CELL VOLUME 82.3 fl (80-96); MEAN PLT VOLUME 7.8 fl (7.5-11.1); PLATELET COUNT 178 K/MM3 (134-434); RBC 3.45 M/mm3 (4.00-5.60); RDW 21.2 % (11.9-15.9); WHITE BLOOD COUNT 8.7 K/mm3 (4.0-10.0)
[2019-03-16] MEDS ORDERED: EPOETIN ALFA 10,000 UNIT/1 ML VIAL IVPUSH ONE (11:30)
[2019-03-16 11:42] LABS: BLOOD UREA NITROGEN 21.5 mg/dL (7-18); CALCIUM 8.5 mg/dL (8.5-10.1); POTASSIUM 3.6 mmol/L (3.5-5.1)
--- NOTE | 2019-03-16 11:48 | PN ---
Progress Note (short form) - Note Progress Note: No distress nausea had abscess drainage-- wound cleaned by Surgery today pt examined in dialysis INR, PTT INR 1.30 (0.83-1.09) H 03/08/19 11:55 Current Medications Generic Name Dose Route Start Last Admin Trade Name Amilcarq PRN Reason Stop Dose Admin Aripiprazole 10 mg 03/09/19 10:00 03/15/19 11:06 Abilify PO Not Given DAILY [facility] Levofloxacin 250 mg 03/15/19 17:45 03/15/19 18:17 Levaquin - PO 250 mg Q48H [facility] Administration Metoclopramide HCl 5 mg 03/16/19 07:00 Reglan - PO TIDAC [facility] Metoprolol Succinate 25 mg 03/12/19 20:00 03/15/19 11:07 Toprol Xl - PO Not Given DAILY [facility] Pantoprazole Sodium 40 mg 03/16/19 10:00 Protonix - PO DAILY [facility] Sevelamer Carbonate 800 mg 03/08/19 22:00 03/15/19 14:10 Renvela - PO Not Given TID [facility] Vital Signs - 24 hr 03/16/19 03/16/19 03/16/19 06:03 09:50 10:00 Temperature 98.0 F 98.2 F Pulse Rate 103 H 102 H 100 H Respiratory 20 18 18 Rate Blood Pressure 120/71 98/62 103/67 03/16/19 03/16/19 10:30 11:00 Temperature Pulse Rate 60 100 H Respiratory 18 18 Rate Blood Pressure 113/71 90/63 Laboratory Results - last 24 hr 03/16/19 03/16/19 10:00 10:00 WBC 8.7 RBC 3.45 L Hgb 9.0 L Hct 28.4 L MCV 82.3 MCH 26.1 MCHC 31.8 L RDW 21.2 H Plt Count 178 MPV 7.8 Sodium 137 Potassium 3.6 Chloride 99 Carbon Dioxide 26 Anion Gap 13 BUN 21.5 H Est GFR (CKD-EPI)AfAm 8.30 Est GFR (CKD-EPI)NonAf 7.16 Random Glucose 72 L Calcium 8.5 S1 S2 RRR Lungs decreased Abd- soft, NT No edema A/P s/p abscess drainage pt has no pain will need to ambulate dc to [facility] on PO levaquin hd per renal on protonix Problem List - Problems (1) GI bleed Code(s): K92.2 - GASTROINTESTINAL HEMORRHAGE, UNSPECIFIED (2) Nausea & vomiting Code(s): R11.2 - NAUSEA WITH VOMITING, UNSPECIFIED (3) ESRD needing dialysis Code(s): N18.6 - END STAGE RENAL DISEASE; Z99.2 - DEPENDENCE ON RENAL DIALYSIS
[2019-03-16 11:51] LABS: CREATININE 7.6 mg/dL (0.55-1.3)
--- NOTE | 2019-03-16 14:56 | PN ---
Progress Note, Physician History of Present Illness: Pt seen and examined at bedside. He is awake and alert. He tolerated HD today. - Current Medication List Current Medications: Active Medications Aripiprazole (Abilify) 10 mg PO DAILY [facility] Last Admin: 03/16/19 09:50 Dose: Not Given Levofloxacin (Levaquin -) 250 mg PO Q48H [facility] Last Admin: 03/15/19 18:17 Dose: 250 mg Metoclopramide HCl (Reglan -) 5 mg PO TIDAC [facility] Last Admin: 03/16/19 11:00 Dose: Not Given Metoprolol Succinate (Toprol Xl -) 25 mg PO DAILY [facility] Last Admin: 03/16/19 10:00 Dose: Not Given Pantoprazole Sodium (Protonix -) 40 mg PO DAILY [facility] Last Admin: 03/16/19 10:00 Dose: Not Given Sevelamer Carbonate (Renvela -) 800 mg PO TID [facility] Last Admin: 03/16/19 07:00 Dose: Not Given - Objective Vital Signs: Vital Signs Temperature 97.8 F 03/16/19 10:00 Pulse Rate 100 H 03/16/19 13:30 Respiratory Rate 18 03/16/19 13:30 Blood Pressure 112/64 03/16/19 13:30 O2 Sat by Pulse Oximetry (%) 96 03/16/19 09:00 Constitutional: Yes: Calm Eyes: Yes: Conjunctiva Clear HENT: Yes: Atraumatic Neck: Yes: Supple Cardiovascular: Yes: S1, S2 Respiratory: Yes: CTA Bilaterally Gastrointestinal: Yes: Soft Genitourinary: Yes: WNL Musculoskeletal: Yes: WNL Edema: No Neurological: Yes: Oriented Psychiatric: Yes: Oriented Labs: CBC, BMP 03/16/19 10:00 03/16/19 10:00 INR, PTT INR 1.30 (0.83-1.09) H 03/08/19 11:55 Problem List - Problems (1) GI bleed Code(s): K92.2 - GASTROINTESTINAL HEMORRHAGE, UNSPECIFIED (2) Nausea & vomiting Code(s): R11.2 - NAUSEA WITH VOMITING, UNSPECIFIED (3) ESRD needing dialysis Code(s): N18.6 - END STAGE RENAL DISEASE; Z99.2 - DEPENDENCE ON RENAL DIALYSIS Assessment/Plan Current Medications Generic Name Dose Route Start Last Admin Trade Name Freq PRN Reason Stop Dose Admin Aripiprazole 10 mg 03/09/19 10:00 03/16/19 09:50 Abilify PO Not Given DAILY [facility] Levofloxacin 250 mg 03/15/19 17:45 03/15/19 18:17 Levaquin - PO 250 mg Q48H [facility] Administration Metoclopramide HCl 5 mg 03/16/19 07:00 03/16/19 11:00 Reglan - PO Not Given TIDAC [facility] Metoprolol Succinate 25 mg 03/12/19 20:00 03/16/19 10:00 Toprol Xl - PO Not Given DAILY [facility] Pantoprazole Sodium 40 mg 03/16/19 10:00 03/16/19 10:00 Protonix - PO Not Given DAILY [facility] Sevelamer Carbonate 800 mg 03/08/19 22:00 03/16/19 07:00 Renvela - PO Not Given TID [facility] Impression 1. ESRD 2. vomiting 3. gout 4. HTN 5. CHF 6. DM 7. hx bipolar 8. MOLLY 9. non compliance Plan - HD today - cont renal diet - pt pending d/c back to [facility] for anemia - discussed with medical team
[2019-03-16 18:22] VITALS: BP 109/73; PULSE 124; TEMP 97.4
== END 2019-03-16 19:42 | DRG 377 ==
LOC: JER 10:25 → JERBED 13:28 → J6S 16:33
PROVIDERS: ADMIT Internal Medicine; ATTEND Internal Medicine
PROC: 0JJW3ZZ Inspection of Lower Extremity Subcutaneous Tissue and Fascia, Percutaneous Approach (ICD-10-PCS; principal; 2019-03-13)
PROC: 5A1D70Z Performance of Urinary Filtration, Intermittent, Less than 6 Hours Per Day (ICD-10-PCS; 2019-03-14)
DX: K92.2 Gastrointestinal hemorrhage, unspecified (principal); N18.6 End stage renal disease; I13.2 Hypertensive heart and chronic kidney disease with heart failure and with stage 5 chronic kidney disease, or end stage renal disease; E87.2 Acidosis; L02.31 Cutaneous abscess of buttock; I50.32 Chronic diastolic (congestive) heart failure; R22.42 Localized swelling, mass and lump, left lower limb; Z68.33 Body mass index [BMI] 33.0-33.9, adult; E66.9 Obesity, unspecified; L89.152 Pressure ulcer of sacral region, stage 2; E11.43 Type 2 diabetes mellitus with diabetic autonomic (poly)neuropathy; K31.84 Gastroparesis; I95.9 Hypotension, unspecified; G47.33 Obstructive sleep apnea (adult) (pediatric); R26.2 Difficulty in walking, not elsewhere classified; E78.5 Hyperlipidemia, unspecified; F31.9 Bipolar disorder, unspecified; F20.9 Schizophrenia, unspecified; Z91.15 Patient's noncompliance with renal dialysis; I45.81 Long QT syndrome; M10.9 Gout, unspecified; D64.9 Anemia, unspecified; Z91.14 Patient's other noncompliance with medication regimen
CPT/HCPCS: 36415; 71045-TC-FY; 74018-TC-FY; 74176-TC; 80048; 80053; 82272; 82550; 82565; 82962; 83605; 83690; 83735; 84100; 84484; 84520; 85025; 85027; 85610; 85730; 86803; 86850; 86900; 86901; 87040; 87340; 93005; 93010; 99284-25; J0131; J0885; J7030

== ENCOUNTER 2019-07-01 12:06 | Inpatient (IN) | payer OTHER ==
[2019-07-01] MEDS ORDERED: SODIUM CHLORIDE 0.9% 500 ML INFUS.BAG IV ONE ×3 (13:06→15:34)
[2019-07-01] MEDS ORDERED: VANCOMYCIN 1,000 MG in DEXTROSE 5%-WATER - 250 ML IVPB ONE (13:38)
[2019-07-01] MEDS ORDERED: ACETAMINOPHEN 1000 MG/100 ML VIAL (NON FORMULARY) IVPB ONE (13:38)
[2019-07-01] MEDS ORDERED: PIPERACILLIN/TAZOB 4.5 GM 4.5 GM in DEXTROSE 5%-WATER 100 ML IVPB ONE (13:39)
[2019-07-01 13:41] LABS: BASO % 0.3 % (0-2.0); EOS % 2.1 % (0-4.5); HEMATOCRIT 22.5 % (35.4-49); HEMOGLOBIN 7.2 GM/dL (11.7-16.9); LYMPH % 4.1 % (8-40); MCH 26.4 pg (25.7-33.7); MCHC 32.1 g/dl (32.0-35.9); MEAN CELL VOLUME 82.2 fl (80-96); MEAN PLT VOLUME 7.8 fl (7.5-11.1); MONO % 15.3 % (3.8-10.2); NEUT % 78.2 % (42.8-82.8); PLATELET COUNT 424 K/MM3 (134-434); RBC 2.74 M/mm3 (4.00-5.60); RDW 17.7 % (11.9-15.9); WHITE BLOOD COUNT 18.2 K/mm3 (4.0-10.0)
[2019-07-01 13:52] LABS: VENOUS PC02 45.6 mmHg (38-52); VENOUS PH 7.38 (7.31-7.41)
[2019-07-01 13:54] LABS: VENOUS PO2 < 49 mmHg (28-48)
--- NOTE | 2019-07-01 14:00 | PDOC ---
Documentation entered by Luisa Duke SCRIBE, acting as scribe for Milton Baird MD. Milton Baird MD: This documentation has been prepared by the Leilani foley Adrianna, SCRIBE, under my direction and personally reviewed by me in its entirety. I confirm that the documentation accurately reflects all work, treatment, procedures, and medical decision making performed by me. Attending Attestation - Resident Resident Name: Lavell Elizondo - ED Attending Attestation I have performed the following: I have examined & evaluated the patient, The case was reviewed & discussed with the resident, I agree w/resident's findings & plan, Exceptions are as noted - HPI HPI: 07/01/19 13:50 58y M hx of chf, ESRD, HTN, HL, DM2 presents for evaluation of fever. History is limited from patient. he does nod and shake his head but is nto verbal ( apperas new when I review priornotes). Pt shakes his head to any pain including headache, back pain, cp, abd pain. history limited Physical Exam GENERAL: The patient is awake, lookinig around, nodes his head, no acute distress HEAD: Normocephalic, atraumatic. EYES: extraocular movements intact, sclera anicteric, conjunctiva clear. ENT: dry mucous membranes. NECK: Normal range of motion, supple LUNGS: Breath sounds equal, clear to auscultation bilaterally. No wheezes, no rhonchi, no rales. CHEST: permcath on the R chest HEART: Regular rate and rhythm, without murmur, rub or gallop. ABDOMEN: Soft, nontender, No guarding, no rebound. Gtube in place EXTREMITIES: +decub ulcer 3x3, stage 3 on R lateral malleolus, decub ulcer on 2x1.5 on L lateral mal stage 2, SKIN: hot to touch fever of unknown origin - possibly from R ankle ulcer, possibly from his perm cath sepsis orders obtained will give antiypyretic will look for source of fever - Physicial Exam PE: 07/01/19 16:48 see above - Critical Care Time Total Critical Care Time: 35 Critical Care Statement: The care of this patient involved high complexity decision making to prevent further life threatening deterioration of the patient 's condition and/or to evaluate & treat vital organ system(s) failure or risk of failure. - Medical Decision Making 07/01/19 16:45 pt was hyptoensive, but responded to fluids pts labs noted for anemia k is low - will replete la elevated as are LFTs will obtain CT abdomen anticipaet admission Heart Score/ECG Review - ECG Impressions Comment:: 07/01/19 16:48 EKG performed 15:05 Rate of 116 regular abnormal r wave progression no signs of acute ischemia imp: sinus tachycardia
[2019-07-01] MEDS ORDERED: ACETAMINOPHEN INJECTION 100 ML IVPB ONE (14:12)
[2019-07-01] MEDS ORDERED: PIPERACILLIN/TAZOB 4.5 GM 4.5 GM/100 ML BAG IVPB ONE (14:12)
[2019-07-01 14:17] LABS: ALBUMIN 1.5 g/dl (3.4-5.0); BILIRUBIN,TOTAL 0.3 mg/dL (0.2-1); BLOOD UREA NITROGEN 73.9 mg/dL (7-18); CALCIUM 8.6 mg/dL (8.5-10.1); CREATININE 3.8 mg/dL (0.55-1.3)
--- NOTE | 2019-07-01 14:26 | PDOC ---
History of Present Illness - General Chief Complaint: SIRS, Suspected/Possible Stated Complaint: SICK Time Seen by Provider: 07/01/19 13:04 History Source: Patient Exam Limitations: Clinical Condition - History of Present Illness Initial Comments: Hx limited bc patient is non-verbal Diego Pena is a 59 yo morbidly obese M who is non-verbal w a pmh of ESRD ( , , ), HTN, HLD, CHF, COPD, gout, Bipolar Disorder, and schizophrenia presents from the [place] [facility] because he was noted to have have a fever and feel warm. The patient does not speak but occasionally shakes his head. He has a right portocath central catheter for dialysis. Also has a G-tube in for feeds. PCP: Earnestine Shah PSH: G-tube tract Allergies: NKA, NKDA Social Hx: [place] resident Past History - Past Medical History Allergies/Adverse Reactions: Allergies Allergy/AdvReac Type Severity Reaction Status Date / Time No Known Allergies Allergy Verified 07/01/19 12:38 Home Medications: Ambulatory Orders Acetaminophen [Tylenol] 650 mg PO ASDIR 03/08/19 Allopurinol [Zyloprim -] 100 mg PO DAILY 03/08/19 Aripiprazole [Abilify] 10 mg PO DAILY 03/08/19 Atorvastatin Ca [Lipitor] 40 mg PO HS 03/08/19 Carvedilol 6.25 mg PO BID 03/08/19 Zinc Sulfate 220 mg PO DAILY 03/08/19 Collagenase Clostridium Hist. [Santyl -] 1 applic TP BID 07/01/19 Folic Acid 1 mg PO DAILY 07/01/19 Folic Acid/Vit B Complex and C [Dialyvite Tablet] 1 each PO DAILY 07/01/19 Midodrine HCl 2.5 mg PO TID 07/01/19 Omeprazole 20 mg PO DAILY 07/01/19 Ondansetron HCl 4 mg PO TID 07/01/19 Anemia: No Cardiac Disorders: Yes (chf) COPD: No CHF: Yes Diabetes: Yes Disorders: Yes (ESRD) HTN: Yes Hypercholesterolemia: Yes Psychiatric Problems: Yes (bipolar) - Surgical History Neurologic Surgery: No - Immunization History Td Vaccination: Yes TDAP Vaccination: Yes Immunization Up to Date: Yes - Psycho Social/Smoking Cessation Hx Smoking History: Never smoked Have you smoked in the past 12 months: No Number of Cigarettes Smoked Daily: 0 Hx Alcohol Use: No Drug/Substance Use Hx: No Substance Use Type: None Hx Substance Use Treatment: No Review of Systems - Review of Systems Able to Perform ROS?: No (Non-verbal) *Physical Exam - Vital Signs Last Vital Signs Temp Pulse Resp BP Pulse Ox 101.3 F H 121 H 20 90/65 100 07/01/19 13:37 07/01/19 13:37 07/01/19 13:37 07/01/19 12:49 07/01/19 13:37 - Physical Exam General Appearance: Yes: Appropriately Dressed, Disheveled, Obese. No: Apparent Distress HEENT: positive: EOMI, MARCELO, Tonsillar Exudate (white), Thrush. negative: Pharynx Normal Neck: positive: Trachea midline, Supple. negative: Decreased range of motion Respiratory/Chest: positive: Lungs Clear, Normal Breath Sounds, Rapid RR. negative: Respiratory Distress, Accessory Muscle Use, Labored Respiration, Crackles, Rales, Rhonchi Cardiovascular: positive: Regular Rhythm, S1, S2, Edema (1+ ), Tachycardia. negative: JVD Vascular Pulses: Dorsalis-Pedis (R): 2+, Doralis-Pedis (L): 2+ Gastrointestinal/Abdominal: positive: Normal Bowel Sounds, Soft, Protuberent. negative: Tender, Flat, Distended, Guarding, Rebound Rectal Exam: positive: normal exam, normal rectal tone, other (stage 1 right sacral ulcer). negative: deferred, hemorrhoids Musculoskeletal: positive: Normal Inspection, Decreased Range of Motion, Other ( Patient is contracted and rigid) Extremity: positive: Normal Capillary Refill, Normal Inspection, Pelvis Stable, Pedal Edema (1/2 + ), Other (decreased ROM and b/l ankle ulcers. Right ankle ulcer 3x3, stage 3, no surrounding erythema or purulent drainage. Left ankle ulcer - first one is 2x2 stage 2 and no surrounding erythema or drainage. Other right ankle ulcer is 1x1 stage 1 no surrounding erythema or drainage. ). negative: Normal Range of Motion (diffuse rigidity) Integumentary: positive: Normal Color, Dry, Warm, Rash (b/l ankle ulcers - described in extremities. ) Neurologic: positive: Respond to painful stimul, Other (Patient tracks people in the room. ) ED Treatment Course - LABORATORY CBC & Chemistry Diagram: 07/01/19 13:19 07/01/19 13:19 - ADDITIONAL ORDERS Additional order review: Laboratory Results 07/01/19 07/01/19 07/01/19 13:19 13:19 13:19 PTT (Actin FS) 29.8 VBG pH 7.38 POC VBG pCO2 45.6 POC VBG pO2 < 49 H VBG HCO3 26.0 VBG O2 Sat (Maylin) 45.3 L VBG Base Excess 1.2 Sodium 132 L Potassium 3.0 L Chloride 93 L Carbon Dioxide 24 Anion Gap 15 BUN 73.9 H Creatinine 3.8 H Est GFR (CKD-EPI)AfAm 19.19 Est GFR (CKD-EPI)NonAf 16.56 Random Glucose 107 H Calcium 8.6 Total Bilirubin 0.3 AST 337 H ALT 264 H Alkaline Phosphatase 220 H Troponin I Total Protein 7.0 Albumin 1.5 L 07/01/19 13:19 PTT (Actin FS) VBG pH POC VBG pCO2 POC VBG pO2 VBG HCO3 VBG O2 Sat (Maylin) VBG Base Excess Sodium Potassium Chloride Carbon Dioxide Anion Gap BUN Creatinine Est GFR (CKD-EPI)AfAm Est GFR (CKD-EPI)NonAf Random Glucose Calcium Total Bilirubin AST ALT Alkaline Phosphatase Troponin I < 0.02 Total Protein Albumin 07/01/19 13:19 RBC 2.74 L MCV 82.2 MCHC 32.1 RDW 17.7 H MPV 7.8 Neutrophils % 78.2 Lymphocytes % 4.1 L D Monocytes % 15.3 H Eosinophils % 2.1 D Basophils % 0.3 - RADIOLOGY Radiology Studies Ordered: Category Date Time Status CHEST X-RAY PORTABLE* [RAD] Stat Radiology 07/01/19 13:06 Ordered G-TUBE PLACEMENT [RADS] Stat Radiology 07/01/19 14:23 Ordered - Medications Given in the ED: ED Medications Discontinued Medications Generic Name Dose Route Start Last Admin Trade Name Freq PRN Reason Stop Dose Admin Sodium Chloride 1,000 ml 07/01/19 13:06 07/01/19 14:05 Normal Saline - IV 07/01/19 13:07 1,000 ml ONCE ONE Administration Medical Decision Making - Medical Decision Making Hx limited bc patient is non-verbal Diego Pena is a 59 yo morbidly obese M who is non-verbal w a pmh of ESRD ( , , ), HTN, HLD, CHF, COPD, gout, Bipolar Disorder, and schizophrenia presents from the [place] [facility] because he was noted to have have a fever and feel warm. The patient does not speak but occasionally shakes his head. He has a right portocath central catheter for dialysis. Also has a G-tube in for feeds. Vital Signs Temp Pulse Resp BP Pulse Ox 101.3 F H 121 H 20 90/65 100 07/01/19 13:37 07/01/19 13:37 07/01/19 13:37 07/01/19 12:49 07/01/19 13:37 MDM: Patient presents with a fever of unkown origin. Possible sources include b/ l ankle ulcers - R worse than L. Patient also has a central line portocath for dialysis and Thrush in the mouth. DDx IBNLT: URI, PNA, UTI/Pylo, gastroenteritis, meningitis/encephalitis, Abdominal infection, cellulitis Plan: ED adult sepsis workup, labs, cultures, fluids, Abx, admit to hospital EKG: Sinus tachycardia rate of 116, narrow complexes, normal axis, low voltage QRS, no hypertrophy, no ST elevations or depressions, no abnormal TWI's, QTc 489 , LA 168 Labs: Anemia of 7.2 - precipitous drop from baseline. Elevated LFT's which is new. Elevated BUN/Cr appears to be baseline but a mild YOCASTA, elevated lactic acid. hypokalemic - repleting with potassium. Leukocytosis with left shift. - New anemia - will transfuse patient with 1 unit of blood in the ER CXR: Increased congestive changes but no focal infiltrate Re-assessment: I suspect the patient's elevated WBC and infection are coming from his abdomen vs the central line he has. - Will obtain a CTAP with PO but not IV contrast to evaluate for intra- abdominal infection. - G-Tube came out when patient was being undressed and placed in a gown - Stomach tube placed 5 minutes later at bedside - G-tube film ordered for placement confirmation. Head CT: EXAM: HEAD CT WITHOUT CONTRAST HISTORY: r/o bleed COMPARISON: None available at the time of preliminary interpretation. FINDINGS: Low-density seen in the left parietal and occipital lobe consistent with infarction, probably acute or subacute in age. Clinically correlate. No acute intracranial hemorrhage seen. No hydrocephalus or abnormal extra-axial collection seen. No acute sinusitis or mastoiditis is identified. No acute skull fracture or calvarial lesion is noted. One or more of the following dose reduction techniques were used: automated exposure control, adjustment of the mA and/or kV according to patient size, use of iterative reconstructive technique. CTAP: HISTORY: Elevated LFTs COMPARISON: None. FINDINGS: The images are severely degraded by artifact related to patient's large body habitus and arms at the sides Moderate to large left and moderate right pleural effusions with overlying atelectasis Central venous catheter in the right atrium The liver is mildly enlarged measuring 18 cm in craniocaudal dimension. No obvious hepatic masses or intrahepatic biliary dilatation within the limitations of the study The gallbladder is decompressed Mildly enlarged spleen measuring 13.3 cm in greatest transverse dimension Left adrenal thickening. Limited visualization of the right adrenal gland The upper abdominal visceral organs are otherwise grossly normal within the limitations of the study There is a percutaneous gastrostomy tube which is adequately positioned within the stomach. There is air in the soft tissues about the catheter which may be related to recent placement Small umbilical hernia containing fat No bowel obstruction or distention. Normal appendix Diffuse mild thickened appearance of the colon may be related to under distention versus mild colitis The bladder is decompressed and contains a Hopkins catheter No intra-abdominal free air or free fluid Shoddy bilateral inguinal lymph nodes Disposition: Admit to hospital ICU Discharge - Discharge Information Problems reviewed: Yes Clinical Impression/Diagnosis: Severe sepsis, Septic shock, Systemic inflammatory response syndrome (SIRS), YOCASTA (acute kidney injury), ESRD needing dialysis, Stage 4 chronic kidney disease Pneumonia Qualifiers: Pneumonia type: due to unspecified organism Laterality: bilateral Lung location : lower lobe of lung Qualified Code(s): J18.1 - Lobar pneumonia, unspecified organism Sepsis Qualifiers: Sepsis type: sepsis due to unspecified organism Sepsis acute organ dysfunction status: unspecified Qualified Code(s): A41.9 - Sepsis, unspecified organism Anemia Qualifiers: Anemia type: unspecified type Qualified Code(s): D64.9 - Anemia, unspecified Condition: Guarded - Admission Yes - Follow up/Referral - Patient Discharge Instructions - Post Discharge Activity
[2019-07-01] MEDS ORDERED: VANCOMYCIN 1 GRAM (PRE-DOCKED) 1,000 MG/250 ML BAG IVPB ONE (14:51)
[2019-07-01] MEDS ORDERED: POTASSIUM CHLORIDE ORAL LIQUID 20 MEQ/15 ML GT ONE (15:01)
[2019-07-01] MEDS ORDERED: IOHEXOL 180 MG/1 ML ML IT ONE (15:37)
[2019-07-01] MEDS ORDERED: POTASSIUM CHLORIDE ORAL LIQUID 20 MEQ/15 ML ONE (16:16)
[2019-07-01] MEDS ORDERED: ASPIRIN 81 MG CHEWABLE TABLETS GT ONE (21:06)
[2019-07-01] MEDS ORDERED: ASPIRIN 81 MG CHEWABLE TABLETS ONE (21:22)
--- NOTE | 2019-07-01 22:10 | HP ---
Admitting History and Physical - Primary Care Physician PCP: - Admission Chief Complaint: Fever , SIRS History of Present Illness: 59 year old morbidly obese male non-verbal with a PMH of ESRD (, , ), HTN , HLD, CHF, COPD, gout, Bipolar Disorder, and schizophrenia arrived from the [place] for fever. Patient does not speak but occasionally shakes his head ( yea or no response when asked simple question). Patient has right perma-cath for dialysis , and G-tube. Unable to conduct ROS. Information gathered from ED note, and prior visits. History Source: Medical Record, Transfer Record Limitations to Obtaining History: Clinical Condition, Language Barrier - Past Medical History Cardiovascular: Yes: CHF, HTN, Hyperlipdemia Pulmonary: Yes: COPD Renal/: Yes: Renal Failure, Renal Inusuff, Hemodialysis Psych: Yes: Bipolar, Schizophrenia Rheumatology: Yes: Gout - Past Surgical History Past Surgical History: Yes: None Additional Past Surgical History: G - tube - Smoking History Smoking history: Never smoked Have you smoked in the past 12 months: No Aproximately how many cigarettes per day: 0 - Alcohol/Substance Use Hx Alcohol Use: No History of Substance Use: reports: None - Social History Usual Living Arrangement: Yes: Senior Living ADL: Support Services Occupation: disability History of Recent Travel: No Home Medications - Allergies Allergies/Adverse Reactions: Allergies Allergy/AdvReac Type Severity Reaction Status Date / Time No Known Allergies Allergy Verified 07/01/19 12:38 - Home Medications Home Medications: Ambulatory Orders Acetaminophen [Tylenol] 650 mg PO ASDIR 03/08/19 Allopurinol [Zyloprim -] 100 mg PO DAILY 03/08/19 Aripiprazole [Abilify] 10 mg PO DAILY 03/08/19 Atorvastatin Ca [Lipitor] 40 mg PO HS 03/08/19 Carvedilol 6.25 mg PO BID 03/08/19 Zinc Sulfate 220 mg PO DAILY 03/08/19 Collagenase Clostridium Hist. [Santyl -] 1 applic TP BID 07/01/19 Folic Acid 1 mg PO DAILY 07/01/19 Folic Acid/Vit B Complex and C [Dialyvite Tablet] 1 each PO DAILY 07/01/19 Midodrine HCl 2.5 mg PO TID 07/01/19 Omeprazole 20 mg PO DAILY 07/01/19 Ondansetron HCl 4 mg PO TID 07/01/19 Family Medical History Family Hx Cardiac Disorders: Father (HTN) Review of Systems Unable to obtain ROS, reason: non-verbal Physical Examination Vital Signs: Vital Signs Temperature 97.9 F 07/01/19 19:10 Pulse Rate 102 H 07/01/19 19:10 Respiratory Rate 22 H 07/01/19 19:10 Blood Pressure 84/61 L 07/01/19 19:10 O2 Sat by Pulse Oximetry (%) 100 07/01/19 19:10 Constitutional: Yes: Calm, Obese Eyes: Yes: Conjunctiva Clear, EOM Intact HENT: Yes: Atraumatic, Normocephalic Neck: Yes: Supple, Trachea Midline Cardiovascular: Yes: Regular Rate and Rhythm, Tachycardia Respiratory: Yes: Regular Gastrointestinal: Yes: Normal Bowel Sounds, Abdomen, Obese, Distention Musculoskeletal: Yes: Other (contracted B/L LE) Extremities: Yes: Deformity Edema: LLE: 2+, RLE: 2+ Integumentary: Yes: Other (warm to touch, dry) Wound/Incision: Yes: Other (Right ankle ulcer 3x3, stage 3 ; Left ankle ulcer - 2x2 stage; right ankle ulcer is 1x1 stage 1---> no surrounding erythema or drainage) Neurological: Yes: Alert, Other (respond to verbal/tactile stimuli ( eyes open/ close when ask simple question)) Labs: CBC, BMP 07/01/19 13:19 07/01/19 13:19 Imaging - Results Chest X-ray: Report Reviewed (CXR: Increased congestive changes) Cat Scan: Report Reviewed (CT Head: FINDINGS:Low-density seen in the left parietal and occipital lobe consistent with infarction, probably acute or subacute in age. CT ABD:Moderate to large left and moderate right pleural effusions with overlying atelectasis Central venous catheter in the right atrium Diffuse mild thickened appearance of the colon may be related to under distention versus mild colitis) EKG: Report Reviewed (EKG: Sinus tachycardia rate of 116, no ST elevations or depressions) Other: Report Reviewed (Labs: Anemia of 7.2 noted with drop from prior visit- follow up occult blood Elevated LFT's ( new) - follow up CTAP Elevated lactic acid, Leukocytosis with left shift - s/p IVF , repeat # 2 lactic level low K, repleting, follow up K + level) Problem List - Problems (1) Pneumonia Code(s): J18.9 - PNEUMONIA, UNSPECIFIED ORGANISM Qualifiers: Pneumonia type: due to unspecified organism Laterality: bilateral Lung location: lower lobe of lung Qualified Code(s): J18.1 - Lobar pneumonia, unspecified organism (2) Severe sepsis Code(s): A41.9 - SEPSIS, UNSPECIFIED ORGANISM; R65.20 - SEVERE SEPSIS WITHOUT SEPTIC SHOCK (3) Elevated LFTs Code(s): R94.5 - ABNORMAL RESULTS OF LIVER FUNCTION STUDIES (4) Hypokalemia Code(s): E87.6 - HYPOKALEMIA (5) Anemia Code(s): D64.9 - ANEMIA, UNSPECIFIED Qualifiers: Anemia type: unspecified type Qualified Code(s): D64.9 - Anemia, unspecified (6) ESRD (end stage renal disease) on dialysis Code(s): N18.6 - END STAGE RENAL DISEASE; Z99.2 - DEPENDENCE ON RENAL DIALYSIS (7) HLD (hyperlipidemia) Code(s): E78.5 - HYPERLIPIDEMIA, UNSPECIFIED (8) Schizo affective schizophrenia Code(s): F25.0 - SCHIZOAFFECTIVE DISORDER, BIPOLAR TYPE (9) Bipolar 1 disorder Code(s): F31.9 - BIPOLAR DISORDER, UNSPECIFIED (10) Gout Code(s): M10.9 - GOUT, UNSPECIFIED (11) Chronic diastolic heart failure Code(s): I50.32 - CHRONIC DIASTOLIC (CONGESTIVE) HEART FAILURE (12) Hypertension Code(s): I10 - ESSENTIAL (PRIMARY) HYPERTENSION Qualifiers: Hypertension type: unspecified Qualified Code(s): I10 - Essential (primary ) hypertension (13) Morbid (severe) obesity due to excess calories Code(s): E66.01 - MORBID (SEVERE) OBESITY DUE TO EXCESS CALORIES Assessment/Plan 59 year old morbidly obese male non-verbal with a PMH of ESRD (, , ), HTN , HLD, CHF, COPD, gout, Bipolar Disorder, and schizophrenia arrived from the [place] for fever. Patient does not speak but occasionally shakes his head. Patient has right perma-cath for dialysis, and G-tube. # Sepsis pneumonia VS ? GI source (under distention versus mild colitis) # UTI # Acute toxic metabolic encephalopathy vs Stroke # Hypotensive # Severe Anemia # Elevated LFTs # PEG tube dislodged CT Head: FINDINGS:Low-density seen in the left parietal and occipital lobe consistent with infarction, probably acute or subacute in age. CT ABD:Moderate to large left and moderate right pleural effusions with overlying atelectasis Central venous catheter in the right atrium Diffuse mild thickened appearance of the colon may be related to under distention versus mild colitis pt awake, nonverbal ? baseline does respond ) shakes head to yes or No questions - ASA given in ED - follow up neuro ? acute vs subacute infarction EKG: Sinus tachycardia rate of 116, no ST elevations or depressions Trop: negative - s/p 3 L IVF Bp improving maintian MAP <60 - monitor BP/HR closely - follow up cardiology Anemia of 7.2 ( drop from prior visit)- will needed transfusion, monitor H/H - follow up occult blood Elevated LFT's: AST: 337, ALT: 264, Alkaline Phos: 220 --> monitor LFTs trend Peg tube dislodged, replaced twice in ED - if occult positive or H/H continues to drop follow up GI Leukocytosis with left shift Elevated lactic acid x2 , s/p IVF3 L In ED s/p Vanco & Zosyn, IVF x 3L , and Tylenol IVPB given - continue with Vanco and Zosyn IV - follow up ID # ESRD ON HD (, , ) # Hypokalemia - dialysis per schedule -low K, repleting, follow up K + level #HTN/ HLD #CHF - hold medications, maintain MAP < 60 - if needed consider adding pressors #COPD - consider adding nebulizer PRN if needed * hold Home meds for now, determine start as patient improves Diet: keep NPO, hold PEG feeds DVT: SCD Visit type - Emergency Visit Emergency Visit: Yes ED Registration Date: 07/01/19 Care time: The patient presented to the Emergency Department on the above date and was hospitalized for further evaluation of their emergent condition. - New Patient This patient is new to me today: Yes Date on this admission: 07/02/19 - Critical Care Critical Care patient: Yes Total Critical Care Time (in minutes): 35 Critical Care Statement: The care of this patient involved high complexity decision making to prevent further life threatening deterioration of the patient 's condition and/or to evaluate & treat vital organ system(s) failure or risk of failure.
[2019-07-01 23:11] LABS: BASO % 1.1 % (0-2.0); EOS % 3.4 % (0-4.5); HEMATOCRIT 21.4 % (35.4-49); LYMPH % 4.2 % (8-40); MCH 25.7 pg (25.7-33.7); MEAN CELL VOLUME 83.1 fl (80-96); MEAN PLT VOLUME 8.1 fl (7.5-11.1); MONO % 12.6 % (3.8-10.2); NEUT % 78.7 % (42.8-82.8); PLATELET COUNT 360 K/MM3 (134-434); RBC 2.57 M/mm3 (4.00-5.60); RDW 18.1 % (11.9-15.9)
[2019-07-01 23:13] LABS: EPI CELLS 1.3 /HPF (0-5/HPF); HYALINE CASTS 7 /lpf (0-8); URINE APPEARANCE TURBID; URINE BILIRUBIN NEGATIVE (NEGATIVE); URINE COLOR DK YELLOW; URINE GLUCOSE (UA) NEGATIVE (NEGATIVE); URINE KETONE NEGATIVE (NEGATIVE); URINE LEUK ESTERASE 2+ (NEGATIVE); URINE NITRITE NEGATIVE (NEGATIVE); URINE PROTEIN 3+ (NEGATIVE); URINE UROBILINOGEN 0.2 mg/dL (0.2-1.0); URINE WBC 44 /hpf (0-5)
[2019-07-01 23:16] LABS: HEMOGLOBIN 6.6 GM/dL (11.7-16.9)
[2019-07-01 23:28] LABS: URINE BACTERIA MANY /hpf (NEGATIVE)
[2019-07-01 23:29] LABS: URINE RBC 15-20 /hpf (0-4)
[2019-07-01 23:42] LABS: ANISOCYTOSIS 1+; PLATELET ESTIMATE NORMAL
[2019-07-01 23:43] LABS: ALBUMIN 1.2 g/dl (3.4-5.0); BILIRUBIN,TOTAL 0.3 mg/dL (0.2-1); BLOOD UREA NITROGEN 65.5 mg/dL (7-18); CALCIUM 7.7 mg/dL (8.5-10.1); CREATININE 3.8 mg/dL (0.55-1.3); POTASSIUM 3.1 mmol/L (3.5-5.1); TOT PROT 6.4 g/dl (6.4-8.2)
--- NOTE | 2019-07-02 00:06 | CONSULT ---
Consultation: REQUESTING PROVIDER: CONSULT REQUEST: We have been asked to medically evaluate this patient for ICU. HISTORY OF PRESENT ILLNESS: 59 yo morbidly w/ PMH of ESRD (, , ), obesity, HTN, HLD, CHF, COPD, gout, Bipolar Disorder, and schizophrenia presented from [facility] for fever. Patient does not speak full sentences but occasionally shakes his head and answers "yes" to some questions. Patient has right perma-cath for dialysis, and G-tube. Pt acknowledges mouth pain, abdominal pain, and chest pain. pt denies headache. In the ED, pt was found hypotensive and tachycardic. pt's BP is improved following 3L IVF. REVIEW OF SYSTEMS:Pt was unwilling to participate in full ROS CONSTITUTIONAL: Absent: fever, chills, diaphoresis, generalized weakness, malaise, loss of appetite, weight change HEENT: Present: mouth pain Absent: rhinorrhea, nasal congestion, throat pain, throat swelling, difficulty swallowing, mouth swelling, ear pain, eye pain, visual changes CARDIOVASCULAR: Present: chest pain Absent: syncope, palpitations, irregular heart rate, lightheadedness, peripheral edema RESPIRATORY: Absent: cough, shortness of breath, dyspnea with exertion, orthopnea, wheezing, stridor, hemoptysis GASTROINTESTINAL: Present: abdominal pain Absent: abdominal distension, nausea, vomiting, diarrhea, constipation, melena , hematochezia NEUROLOGIC: Absent: headache, focal weakness or paresthesias, dizziness, unsteady gait, seizure, mental status changes, bladder or bowel incontinence PHYSICAL EXAMINATION Vital Signs - 24 hr 07/01/19 07/01/19 07/01/19 12:35 12:49 13:37 Temperature 99.3 F 99.3 F 101.3 F H Pulse Rate 127 H 121 H Pulse Rate [ 127 H Left Apical] Respiratory 28 H 20 20 Rate Blood Pressure 90/65 Blood Pressure 90/65 [Left Arm] O2 Sat by Pulse 100 100 100 Oximetry (%) 07/01/19 07/01/19 07/01/19 19:00 19:10 22:06 Temperature 97.9 F 97.4 F L Pulse Rate Pulse Rate [ 104 H 102 H 99 H Left Apical] Respiratory 27 H 22 H 24 H Rate Blood Pressure Blood Pressure 92/50 L 84/61 L 102/64 [Left Arm] O2 Sat by Pulse 100 100 100 Oximetry (%) GENERAL: Awake, alert, in no acute distress. HEAD: Normal with no signs of trauma. EYES: Pupils equal, round and reactive to light EARS, NOSE, THROAT: oropharynx with white exudate ( scrapes off) . Moist mucous membranes. poor dental hygiene NECK:supple without lymphadenopathy LUNGS: Breath sounds equal, b/l rhonchi throughout, No accessory muscle use. on NC saturating well HEART:tachycardic and regular rhythm, normal S1 and S2 ABDOMEN: Soft, tender to palpation RUQ, not distended, normoactive bowel sounds , PEG in place, pustulant fluid from PEG site MUSCULOSKELETAL: Normal range of motion at all joints. No bony deformities or tenderness. No CVA tenderness. UPPER EXTREMITIES: 2+ pulses, warm, well-perfused. No cyanosis. No peripheral edema. LOWER EXTREMITIES: 2+ pulses, warm, well-perfused. No peripheral edema. B/L LE wounds. Laboratory Last Values WBC 18.2 K/mm3 (4.0-10.0) H 07/01/19 13:19 RBC 2.74 M/mm3 (4.00-5.60) L 07/01/19 13:19 Hgb 7.2 GM/dL (11.7-16.9) L 07/01/19 13:19 Hct 22.5 % (35.4-49) L 07/01/19 13:19 MCV 82.2 fl (80-96) 07/01/19 13:19 MCH 26.4 pg (25.7-33.7) 07/01/19 13:19 MCHC 32.1 g/dl (32.0-35.9) 07/01/19 13:19 RDW 17.7 % (11.9-15.9) H 07/01/19 13:19 Plt Count 424 K/MM3 (134-434) 07/01/19 13:19 MPV 7.8 fl (7.5-11.1) 07/01/19 13:19 Absolute Neuts (auto) 14.2 K/mm3 (1.5-8.0) H 07/01/19 13:19 Neutrophils % 78.2 % (42.8-82.8) 07/01/19 13:19 Neutrophils % (Manual) 70.3 % (42.8-82.8) 07/01/19 10:45 Band Neutrophils % 1.0 % 07/01/19 10:45 Lymphocytes % 4.1 % (8-40) L 07/01/19 13:19 Lymphocytes % (Manual) 9.9 % (8-40) D 07/01/19 10:45 Monocytes % 15.3 % (3.8-10.2) H 07/01/19 13:19 Monocytes % (Manual) 14 % (3.8-10.2) H D 07/01/19 10:45 Eosinophils % 2.1 % (0-4.5) 07/01/19 13:19 Eosinophils % (Manual) 3.0 % (0-4.5) D 07/01/19 10:45 Basophils % 0.3 % (0-2.0) 07/01/19 13: Basophils % (Manual) 0.0 % (0-2.0) 07/01/19 10:45 Myelocytes % (Man) 1 % (0-2) D 07/01/19 10:45 Promyelocytes % (Man) 0 % (0-2) 07/01/19 10:45 Blast Cells % (Manual) 0 % (0-0) 07/01/19 10:45 Nucleated RBC % 0 % (0-0) 07/01/19 13: Metamyelocytes 0 % (0-2) D 07/01/19 10:45 Hypochromia 1+ 07/01/19 10:45 Platelet Estimate Normal 07/01/19 10:45 Polychromasia 1+ 07/01/19 10:45 Anisocytosis 1+ 07/01/19 10:45 Schistocytes 1+ 07/01/19 10:45 PTT (Actin FS) 29.8 SECONDS (25.2-36.5) 07/01/19 13: VBG pH 7.38 (7.31-7.41) 07/01/19 13: POC VBG pCO2 45.6 mmHg (38-52) 07/01/19 13:19 POC VBG pO2 < 49 mmHg (28-48) H 07/01/19 13:19 VBG HCO3 26.0 mmol/L (23-29) 07/01/19 13:19 VBG O2 Sat (Maylin) 45.3 % (70-80) L 07/01/19 13:19 VBG Base Excess 1.2 meq/l (-2-2) 07/01/19 13:19 Sodium 132 mmol/L (136-145) L 07/01/19 13:19 Potassium 3.0 mmol/L (3.5-5.1) L 07/01/19 13:19 Chloride 93 mmol/L (98-107) L 07/01/19 13:19 Carbon Dioxide 24 mmol/L (21-32) 07/01/19 13:19 Anion Gap 15 MMOL/L (8-16) 07/01/19 13:19 BUN 73.9 mg/dL (7-18) H 07/01/19 13:19 Creatinine 3.8 mg/dL (0.55-1.3) H 07/01/19 13:19 Est GFR (CKD-EPI)AfAm 19.19 07/01/19 13:19 Est GFR (CKD-EPI)NonAf 16.56 07/01/19 13:19 Random Glucose 107 mg/dL (74-106) H 07/01/19 13:19 Lactic Acid 2.7 mmol/L (0.4-2.0) H* 07/01/19 13:19 Calcium 8.6 mg/dL (8.5-10.1) 07/01/19 13:19 Total Bilirubin 0.3 mg/dL (0.2-1) 07/01/19 13:19 AST 337 U/L (15-37) H 07/01/19 13:19 ALT 264 U/L (13-61) H 07/01/19 13:19 Alkaline Phosphatase 220 U/L (45-117) H 07/01/19 13:19 Troponin I < 0.02 ng/ml (0.00-0.05) 07/01/19 13:19 Total Protein 7.0 g/dl (6.4-8.2) 07/01/19 13:19 Albumin 1.5 g/dl (3.4-5.0) L 07/01/19 13:19 Urine Color Dk yellow 07/01/19 10:30 Urine Appearance Turbid 07/01/19 10:30 Urine pH 6.0 (5.0-8.0) 07/01/19 10:30 Ur Specific [place] 1.016 (1.010-1.035) 07/01/19 10:30 Urine Protein 3+ (NEGATIVE) H 07/01/19 10:30 Urine Glucose (UA) Negative (NEGATIVE) 07/01/19 10:30 Urine Ketones Negative (NEGATIVE) 07/01/19 10:30 Urine Blood 3+ (NEGATIVE) H 07/01/19 10:30 Urine Nitrite Negative (NEGATIVE) 07/01/19 10:30 Urine Bilirubin Negative (NEGATIVE) 07/01/19 10:30 Urine Urobilinogen 0.2 mg/dL (0.2-1.0) 07/01/19 10:30 Ur Leukocyte Esterase 2+ (NEGATIVE) H 07/01/19 10:30 Urine WBC (Auto) 44 /hpf (0-5) 07/01/19 10:30 Urine RBC (Auto) 15-20 /hpf (0-4) 07/01/19 10:30 Urine Casts (Auto) 7 /lpf (0-8) 07/01/19 10:30 U Epithel Cells (Auto) 1.3 /HPF (0-5/HPF) 07/01/19 10:30 Urine Bacteria (Auto) Many /hpf (NEGATIVE) 07/01/19 10:30 Blood Type A POSITIVE 07/01/19 16:10 Antibody Screen Negative 07/01/19 16:10 Crossmatch See Detail 07/01/19 16:10 ASSESSMENT/PLAN: 59 yo morbidly w/ PMH of ESRD (, Th, Sa), obesity, HTN, HLD, CHF, COPD, gout, Bipolar Disorder, and schizophrenia presented from [facility] for fever. Pt is admitted to ICU for severe sepsis 2/2 pneumonia vs GI source. Neuro: Acute toxic metabolic encephalopathy vs Stroke -Awake and alert. need to confirm baseline mental status -preliminary CT head findings : Low-density seen in the left parietal and occipital lobe consistent with infarction, probably acute or subacute in age. -neuro recs appreciated -consider repeat CT Cardio: hypotension, HLD, HFpEF -continue to monitor vitals -EKG: Sinus tachycardia rate of 116, no ST elevations or depressions. Trop neg -BP responding following 3L IVF -consider central line placement if MAP <60 -cardio recs appreciated -Echo 10/2018: LVEF nml, mild LVH, trace TR -rpt Echo Pulm: Acute respiratory failure possible ARDS , COPD -saturating well on NC - CT shows Moderate to large left and moderate right pleural effusions with overlying atelectasis -pt appears to be aspirating , b/l rhonchi on exam -throughout the night, pt's work of breathing increased and pt began to desaturate. pt was started on BIPAP and saturations improved. -ABG reviewed ID: Severe Sepsis 2/2 pneumonia, UTI, pos GI source -Lacatate 2.7, will rpt -leukocytosis -awaiting vaughan cultures (+) UA -c/w vanc/ zosyn GI -PEG tube continuously becomes dislodged ( x2 in ED ) -Elevated LFT's: AST: 337, ALT: 264, Alkaline Phos: 220 -CT: Diffuse mild thickened appearance of the colon may be related to under distention versus mild colitis Nephro: ESRD -consider dialysis tomorrow -nephro recs appreciated Anemia: acute vs chronic -Hgb: 7.2 -baseline : 8-9 -will transfuse 2 U prbc F/E/N -hypokalemia: repleted, will rpt Dispo: We will continue to follow the patient. Thank you for this consultative opportunity. Visit type - Emergency Visit Emergency Visit: Yes ED Registration Date: 07/01/19 Care time: The patient presented to the Emergency Department on the above date and was hospitalized for further evaluation of their emergent condition. - New Patient This patient is new to me today: Yes Date on this admission: 07/02/19 - Critical Care Critical Care patient: Yes Total Critical Care Time (in minutes): 36 Critical Care Statement: The care of this patient involved high complexity decision making to prevent further life threatening deterioration of the patient 's condition and/or to evaluate & treat vital organ system(s) failure or risk of failure. ATTENDING PHYSICIAN STATEMENT I saw and evaluated the patient. I reviewed the resident's note and discussed the case with the resident. I agree with the resident's findings and plan as documented. SUBJECTIVE: OBJECTIVE: ASSESSMENT AND PLAN:
[2019-07-02] MEDS ORDERED: ACETAMINOPHEN 1000 MG/100 ML VIAL (NON FORMULARY) IVPB PRN (01:13)
[2019-07-02] MEDS ORDERED: VANCOMYCIN 1,000 MG in DEXTROSE 5%-WATER - 250 ML IVPB SCH (01:15)
[2019-07-02] MEDS ORDERED: VANCOMYCIN 1 GRAM (PRE-DOCKED) 1,000 MG/250 ML BAG IVPB ONE ×2 (01:30→02:06)
[2019-07-02] MEDS ORDERED: PIPERACILLIN/TAZOB 3.375 GM 3.375 GM in DEXTROSE 5%-WATER - 50 ML IVPB SCH (02:00)
[2019-07-02] MEDS ORDERED: PIPERACILLIN/TAZOB 3.375 GM 3.375 GM/50 ML BAG IVPB ONE (02:06)
[2019-07-02] MEDS ORDERED: ACETAMINOPHEN 500 MG TABLET (FP) PO ONE (03:37)
[2019-07-02] MEDS ORDERED: PIPERACILLIN/TAZOB 2.25 GM 2.25 GM in DEXTROSE 5%-WATER - 50 ML IVPB SCH (03:52)
[2019-07-02] MEDS ORDERED: NOREPINEPHRINE BITARTRATE 4 MG/4 ML ML IV ONE ×2 (04:47→17:49)
[2019-07-02] MEDS ORDERED: VASOPRESSIN 20 UNITS/ML VIAL IV ONE ×2 (04:48→04:49)
[2019-07-02 04:55] LABS: ARTERIAL BLOOD GAS BASE EXCESS -1.6 meq/l (-2-2); ARTERIAL BLOOD GAS PO2 359 mmHg (80-100); ARTERIAL BLOOD GAS pH 7.46 (7.35-7.45)
[2019-07-02 04:57] LABS: ALLENS TEST POSITIVE
[2019-07-02 05:09] LABS: VENOUS PC02 49.6 mmHg (38-52); VENOUS PH 7.32 (7.31-7.41)
[2019-07-02 05:10] LABS: VENOUS PO2 < 49 mmHg (28-48)
--- NOTE | 2019-07-02 05:56 | PROC ---
Procedure Note Procedure: Seldinger technique used. guidewire retrieved and intact. confirmed with bedside u/s. line has good blood return and is flushed. XR ordered. Central Line Insertion Indication: Sepsis, Vasopressor Central Line: Triple Lumen Catheter Anesthesia: 1% Lidocaine Sterile Technique: Yes Ultrasound Guided Assistance: Yes Position: Right Femoral (guidewire retrieved intact.)
[2019-07-02] MEDS: INSULIN SLIDING SCALE (NOVOLOG) 1 VIAL SQ SCH ×4 (06:23→23:25)
[2019-07-02] MEDS ORDERED: DEXTROSE 5%-WATER - 50 ML IVPB ONE ×2 (06:24→17:49)
[2019-07-02] MEDS ORDERED: PIPERACILLIN/TAZOBACTAM 3.375 GM VIAL IVPB ONE (06:24)
[2019-07-02] MEDS: PIPERACILLIN/TAZOB 3.375 GM 3.375 GM in DEXTROSE 5%-WATER - 50 ML IVPB SCH ×2 (06:42→10:30)
[2019-07-02] MEDS: KCL 10 MEQ IVPB 10 MEQ/100 ML INFUS.BAG IVPB SCH ×5 (06:42→10:04)
[2019-07-02 07:11] LABS: BASO % 0.5 % (0-2.0); EOS % 2.1 % (0-4.5); HEMATOCRIT 21.9 % (35.4-49); HEMOGLOBIN 7.1 GM/dL (11.7-16.9); MCH 26.7 pg (25.7-33.7); MCHC 32.4 g/dl (32.0-35.9); MEAN CELL VOLUME 82.5 fl (80-96); MONO % 9.6 % (3.8-10.2); NEUT % 85.8 % (42.8-82.8); PLATELET COUNT 379 K/MM3 (134-434); RBC 2.65 M/mm3 (4.00-5.60); WHITE BLOOD COUNT 17.8 K/mm3 (4.0-10.0)
[2019-07-02 07:50] LABS: ALBUMIN 1.3 g/dl (3.4-5.0); BLOOD UREA NITROGEN 80.3 mg/dL (7-18); CALCIUM 8.5 mg/dL (8.5-10.1); MAGNESIUM 2.1 mg/dL (1.8-2.4); PHOSPHOROUS 1.9 mg/dL (2.5-4.9); POTASSIUM 3.3 mmol/L (3.5-5.1)
--- NOTE | 2019-07-02 09:42 | PN ---
Teaching Attending Note Name of Resident: Nick Putnam ATTENDING PHYSICIAN STATEMENT I saw and evaluated the patient. I reviewed the resident's note and discussed the case with the resident. I agree with the resident's findings and plan as documented. SUBJECTIVE: Patient seen and examined in the ICU. Lethargic on NIPPV support. Arousable but non-verbal. NE @ 5 mcq for hemodynamic support. GI at the bedside to change the PEG. Appears infected. Intake & Output 06/29/19 06/30/19 07/01/19 07/02/19 23:59 23:59 23:59 23:59 Intake Total 628 Output Total 0 Balance 628 Weight 224 lb 9.6 oz 250 lb 0.067 oz Last Vital Signs Temp Pulse Resp BP Pulse Ox 100.1 F H 99 H 23 H 125/73 100 07/02/19 06:00 07/02/19 06:30 07/02/19 06:30 07/02/19 06:30 07/02/19 06:45 Active Medications Acetaminophen (Ofirmev Injection -) 1,000 mg IVPB Q6H PRN PRN Reason: FEVER Chlorhexidine Gluconate (Hibiclens For Decolonization -) 1 applic TP HS RONALD Vancomycin HCl 1,000 mg/ (Dextrose) 250 mls @ 200 mls/hr IVPB Q24H RONALD; Protocol Piperacillin Sod/Tazobactam (Sod 3.375 gm/ Dextrose) 50 mls @ 100 mls/hr IVPB Q8H-IV RONALD Stop: 07/02/19 18:29 Last Admin: 07/02/19 06:42 Dose: 100 mls/hr Piperacillin Sod/Tazobactam (Sod 2.25 gm/ Dextrose) 50 mls @ 100 mls/hr IVPB Q8H-IV RONALD; Protocol Potassium Chloride (Potassium Chloride 10 Meq Premix Ivpb -) 10 meq in 100 mls @ 100 mls/hr IVPB Q60M RONALD Stop: 07/02/19 11:14 Last Admin: 07/02/19 09:22 Dose: Not Given Insulin Aspart (Novolog Vial Sliding Scale -) 1 vial SQ ACHS RONALD; Protocol Last Admin: 07/02/19 06:23 Dose: Not Given Mupirocin (Bactroban Ointment (For Decolonization) -) 1 applic NS BID [facility] Stop: 07/07/19 09:59 GENERAL: Lethargic on NIPPV support HEAD: Normal with no signs of trauma. EYES: Pupils equal, round and reactive to light EARS, NOSE, THROAT: oropharynx with white exudate ( scrapes off) . Moist mucous membranes. poor dental hygiene NECK:supple without lymphadenopathy LUNGS: Bilateral coarse breath sounds, no wheeze HEART:tachycardic and regular rhythm, normal S1 and S2 ABDOMEN: Soft, tender to palpation RUQ, not distended, normoactive bowel sounds , PEG in place, pustulant fluid from PEG site MUSCULOSKELETAL: chronic changes UPPER EXTREMITIES: 2+ pulses, warm, well-perfused. No cyanosis. LOWER EXTREMITIES: 2+ pulses, warm, well-perfused. No peripheral edema. B/L LE wounds. Laboratory Last Values WBC 18.2 K/mm3 (4.0-10.0) H 07/01/19 13:19 RBC 2.74 M/mm3 (4.00-5.60) L 07/01/19 13:19 Hgb 7.2 GM/dL (11.7-16.9) L 07/01/19 13:19 Hct 22.5 % (35.4-49) L 07/01/19 13:19 MCV 82.2 fl (80-96) 07/01/19 13:19 MCH 26.4 pg (25.7-33.7) 07/01/19 13:19 MCHC 32.1 g/dl (32.0-35.9) 07/01/19 13:19 RDW 17.7 % (11.9-15.9) H 07/01/19 13:19 Plt Count 424 K/MM3 (134-434) 07/01/19 13:19 MPV 7.8 fl (7.5-11.1) 07/01/19 13:19 Absolute Neuts (auto) 14.2 K/mm3 (1.5-8.0) H 07/01/19 13:19 Neutrophils % 78.2 % (42.8-82.8) 07/01/19 13:19 Neutrophils % (Manual) 70.3 % (42.8-82.8) 07/01/19 10:45 Band Neutrophils % 1.0 % 07/01/19 10:45 Lymphocytes % 4.1 % (8-40) L 07/01/19 13:19 Lymphocytes % (Manual) 9.9 % (8-40) D 07/01/19 10:45 Monocytes % 15.3 % (3.8-10.2) H 07/01/19 13:19 Monocytes % (Manual) 14 % (3.8-10.2) H D 07/01/19 10:45 Eosinophils % 2.1 % (0-4.5) 07/01/19 13:19 Eosinophils % (Manual) 3.0 % (0-4.5) D 07/01/19 10:45 Basophils % 0.3 % (0-2.0) 07/01/19 13:19 Basophils % (Manual) 0.0 % (0-2.0) 07/01/19 10:45 Myelocytes % (Man) 1 % (0-2) D 07/01/19 10:45 Promyelocytes % (Man) 0 % (0-2) 07/01/19 10:45 Blast Cells % (Manual) 0 % (0-0) 07/01/19 10:45 Nucleated RBC % 0 % (0-0) 07/01/19 13:19 Metamyelocytes 0 % (0-2) D 07/01/19 10:45 Hypochromia 1+ 07/01/19 10:45 Platelet Estimate Normal 07/01/19 10:45 Polychromasia 1+ 07/01/19 10:45 Anisocytosis 1+ 07/01/19 10:45 Schistocytes 1+ 07/01/19 10:45 PTT (Actin FS) 29.8 SECONDS (25.2-36.5) 07/01/19 13:19 VBG pH 7.38 (7.31-7.41) 07/01/19 13:19 POC VBG pCO2 45.6 mmHg (38-52) 07/01/19 13:19 POC VBG pO2 < 49 mmHg (28-48) H 07/01/19 13:19 VBG HCO3 26.0 mmol/L (23-29) 07/01/19 13:19 VBG O2 Sat (Maylin) 45.3 % (70-80) L 07/01/19 13:19 VBG Base Excess 1.2 meq/l (-2-2) 07/01/19 13:19 Sodium 132 mmol/L (136-145) L 07/01/19 13:19 Potassium 3.0 mmol/L (3.5-5.1) L 07/01/19 13:19 Chloride 93 mmol/L (98-107) L 07/01/19 13:19 Carbon Dioxide 24 mmol/L (21-32) 07/01/19 13:19 Anion Gap 15 MMOL/L (8-16) 07/01/19 13:19 BUN 73.9 mg/dL (7-18) H 07/01/19 13:19 Creatinine 3.8 mg/dL (0.55-1.3) H 07/01/19 13:19 Est GFR (CKD-EPI)AfAm 19.19 07/01/19 13:19 Est GFR (CKD-EPI)NonAf 16.56 07/01/19 13:19 Random Glucose 107 mg/dL (74-106) H 07/01/19 13:19 Lactic Acid 2.7 mmol/L (0.4-2.0) H* 07/01/19 13:19 Calcium 8.6 mg/dL (8.5-10.1) 07/01/19 13:19 Total Bilirubin 0.3 mg/dL (0.2-1) 07/01/19 13:19 AST 337 U/L (15-37) H 07/01/19 13:19 ALT 264 U/L (13-61) H 07/01/19 13:19 Alkaline Phosphatase 220 U/L (45-117) H 07/01/19 13:19 Troponin I < 0.02 ng/ml (0.00-0.05) 07/01/19 13:19 Total Protein 7.0 g/dl (6.4-8.2) 07/01/19 13:19 Albumin 1.5 g/dl (3.4-5.0) L 07/01/19 13:19 Urine Color Dk yellow 07/01/19 10:30 Urine Appearance Turbid 07/01/19 10:30 Urine pH 6.0 (5.0-8.0) 07/01/19 10:30 Ur Specific [place] 1.016 (1.010-1.035) 07/01/19 10:30 Urine Protein 3+ (NEGATIVE) H 07/01/19 10:30 Urine Glucose (UA) Negative (NEGATIVE) 07/01/19 10:30 Urine Ketones Negative (NEGATIVE) 07/01/19 10:30 Urine Blood 3+ (NEGATIVE) H 07/01/19 10:30 Urine Nitrite Negative (NEGATIVE) 07/01/19 10:30 Urine Bilirubin Negative (NEGATIVE) 07/01/19 10:30 Urine Urobilinogen 0.2 mg/dL (0.2-1.0) 07/01/19 10:30 Ur Leukocyte Esterase 2+ (NEGATIVE) H 07/01/19 10:30 Urine WBC (Auto) 44 /hpf (0-5) 07/01/19 10:30 Urine RBC (Auto) 15-20 /hpf (0-4) 07/01/19 10:30 Urine Casts (Auto) 7 /lpf (0-8) 07/01/19 10:30 U Epithel Cells (Auto) 1.3 /HPF (0-5/HPF) 07/01/19 10:30 Urine Bacteria (Auto) Many /hpf (NEGATIVE) 07/01/19 10:30 Blood Type A POSITIVE 07/01/19 16:10 Antibody Screen Negative 07/01/19 16:10 Crossmatch See Detail 07/01/19 16:10 Laboratory Results - last 24 hr 07/01/19 07/01/19 07/01/19 10:30 10:45 10:45 WBC 17.0 H Corrected WBC (auto) RBC 2.57 L Hgb 6.6 L* Hct 21.4 L D MCV 83.1 MCH 25.7 MCHC 31.0 L RDW 18.1 H Plt Count 360 D MPV 8.1 Absolute Neuts (auto) 13.4 H Neutrophils % 78.7 Neutrophils % (Manual) 70.3 Band Neutrophils % 1.0 Lymphocytes % 4.2 L D Lymphocytes % (Manual) 9.9 D Monocytes % 12.6 H Monocytes % (Manual) 14 H D Eosinophils % 3.4 D Eosinophils % (Manual) 3.0 D Basophils % 1.1 D Basophils % (Manual) 0.0 Myelocytes % (Man) 1 D Promyelocytes % (Man) 0 Blast Cells % (Manual) 0 Nucleated RBC % 0 Metamyelocytes 0 D Manual Slide Review Hypochromia 1+ Platelet Estimate Normal Platelet Comment Polychromasia 1+ Anisocytosis 1+ Schistocytes 1+ PTT (Actin FS) Puncture Site ABG pH ABG pCO2 at Pt Temp ABG pO2 at Pt Temp ABG HCO3 ABG O2 Sat (Measured) ABG O2 Content ABG Base Excess Tom Test VBG pH POC VBG pCO2 POC VBG pO2 VBG HCO3 VBG O2 Sat (Maylin) VBG Base Excess O2 Delivery Device Oxygen Flow Rate Vent Mode Vent Rate Mechanical Rate Pressure Support Vent Sodium Potassium Chloride Carbon Dioxide Anion Gap BUN Creatinine Est GFR (CKD-EPI)AfAm Est GFR (CKD-EPI)NonAf POC Glucometer Random Glucose Lactic Acid 2.6 H* Calcium Phosphorus Magnesium Total Bilirubin AST ALT Alkaline Phosphatase Troponin I Total Protein Albumin Urine Color Dk yellow Urine Appearance Turbid Urine pH 6.0 Ur Specific [place] 1.016 Urine Protein 3+ H Urine Glucose (UA) Negative Urine Ketones Negative Urine Blood 3+ H Urine Nitrite Negative Urine Bilirubin Negative Urine Urobilinogen 0.2 Ur Leukocyte Esterase 2+ H Urine WBC (Auto) 44 Urine RBC (Auto) 15-20 Urine Casts (Auto) 7 U Epithel Cells (Auto) 1.3 Urine Bacteria (Auto) Many Blood Type Antibody Screen Crossmatch 07/01/19 07/01/19 07/01/19 10:45 13:19 13:19 WBC Corrected WBC (auto) RBC Hgb Hct MCV MCH MCHC RDW Plt Count MPV Absolute Neuts (auto) Neutrophils % Neutrophils % (Manual) Band Neutrophils % Lymphocytes % Lymphocytes % (Manual) Monocytes % Monocytes % (Manual) Eosinophils % Eosinophils % (Manual) Basophils % Basophils % (Manual) Myelocytes % (Man) Promyelocytes % (Man) Blast Cells % (Manual) Nucleated RBC % Metamyelocytes Manual Slide Review Hypochromia Platelet Estimate Platelet Comment Polychromasia Anisocytosis Schistocytes PTT (Actin FS) 29.8 Puncture Site ABG pH ABG pCO2 at Pt Temp ABG pO2 at Pt Temp ABG HCO3 ABG O2 Sat (Measured) ABG O2 Content ABG Base Excess Tom Test VBG pH POC VBG pCO2 POC VBG pO2 VBG HCO3 VBG O2 Sat (Maylin) VBG Base Excess O2 Delivery Device Oxygen Flow Rate Vent Mode Vent Rate Mechanical Rate Pressure Support Vent Sodium 135 L Potassium 3.1 L Chloride 100 Carbon Dioxide 24 Anion Gap 11 BUN 65.5 H Creatinine 3.8 H Est GFR (CKD-EPI)AfAm 19.19 Est GFR (CKD-EPI)NonAf 16.56 POC Glucometer Random Glucose 74 Lactic Acid Calcium 7.7 L Phosphorus Magnesium Total Bilirubin 0.3 AST 281 H ALT 228 H Alkaline Phosphatase 184 H Troponin I < 0.02 Total Protein 6.4 Albumin 1.2 L Urine Color Urine Appearance Urine pH Ur Specific [place] Urine Protein Urine Glucose (UA) Urine Ketones Urine Blood Urine Nitrite Urine Bilirubin Urine Urobilinogen Ur Leukocyte Esterase Urine WBC (Auto) Urine RBC (Auto) Urine Casts (Auto) U Epithel Cells (Auto) Urine Bacteria (Auto) Blood Type Antibody Screen Crossmatch 07/01/19 07/01/19 07/01/19 13:19 13:19 13:19 WBC 18.2 H Corrected WBC (auto) RBC 2.74 L Hgb 7.2 L Hct 22.5 L MCV 82.2 MCH 26.4 MCHC 32.1 RDW 17.7 H Plt Count 424 MPV 7.8 Absolute Neuts (auto) 14.2 H Neutrophils % 78.2 Neutrophils % (Manual) Band Neutrophils % Lymphocytes % 4.1 L Lymphocytes % (Manual) Monocytes % 15.3 H Monocytes % (Manual) Eosinophils % 2.1 Eosinophils % (Manual) Basophils % 0.3 Basophils % (Manual) Myelocytes % (Man) Promyelocytes % (Man) Blast Cells % (Manual) Nucleated RBC % 0 Metamyelocytes Manual Slide Review Hypochromia Platelet Estimate Platelet Comment Polychromasia Anisocytosis Schistocytes PTT (Actin FS) Puncture Site ABG pH ABG pCO2 at Pt Temp ABG pO2 at Pt Temp ABG HCO3 ABG O2 Sat (Measured) ABG O2 Content ABG Base Excess Tom Test VBG pH POC VBG pCO2 POC VBG pO2 VBG HCO3 VBG O2 Sat (Maylin) VBG Base Excess O2 Delivery Device Oxygen Flow Rate Vent Mode Vent Rate Mechanical Rate Pressure Support Vent Sodium 132 L Potassium 3.0 L Chloride 93 L Carbon Dioxide 24 Anion Gap 15 BUN 73.9 H Creatinine 3.8 H Est GFR (CKD-EPI)AfAm 19.19 Est GFR (CKD-EPI)NonAf 16.56 POC Glucometer Random Glucose 107 H Lactic Acid 2.7 H* Calcium 8.6 Phosphorus Magnesium Total Bilirubin 0.3 AST 337 H ALT 264 H Alkaline Phosphatase 220 H Troponin I Total Protein 7.0 Albumin 1.5 L Urine Color Urine Appearance Urine pH Ur Specific [place] Urine Protein Urine Glucose (UA) Urine Ketones Urine Blood Urine Nitrite Urine Bilirubin Urine Urobilinogen Ur Leukocyte Esterase Urine WBC (Auto) Urine RBC (Auto) Urine Casts (Auto) U Epithel Cells (Auto) Urine Bacteria (Auto) Blood Type Antibody Screen Crossmatch 07/01/19 07/01/19 07/02/19 13: 16:10 04:33 WBC Corrected WBC (auto) RBC Hgb Hct MCV MCH MCHC RDW Plt Count MPV Absolute Neuts (auto) Neutrophils % Neutrophils % (Manual) Band Neutrophils % Lymphocytes % Lymphocytes % (Manual) Monocytes % Monocytes % (Manual) Eosinophils % Eosinophils % (Manual) Basophils % Basophils % (Manual) Myelocytes % (Man) Promyelocytes % (Man) Blast Cells % (Manual) Nucleated RBC % Metamyelocytes Manual Slide Review Hypochromia Platelet Estimate Platelet Comment Polychromasia Anisocytosis Schistocytes PTT (Actin FS) Puncture Site ABG pH ABG pCO2 at Pt Temp ABG pO2 at Pt Temp ABG HCO3 ABG O2 Sat (Measured) ABG O2 Content ABG Base Excess Tom Test VBG pH 7.38 7.32 POC VBG pCO2 45.6 49.6 POC VBG pO2 < 49 H < 49 H VBG HCO3 26.0 24.5 VBG O2 Sat (Maylin) 45.3 L 20.4 L VBG Base Excess 1.2 -1.2 O2 Delivery Device Oxygen Flow Rate Vent Mode Vent Rate Mechanical Rate Pressure Support Vent Sodium Potassium Chloride Carbon Dioxide Anion Gap BUN Creatinine Est GFR (CKD-EPI)AfAm Est GFR (CKD-EPI)NonAf POC Glucometer Random Glucose Lactic Acid Calcium Phosphorus Magnesium Total Bilirubin AST ALT Alkaline Phosphatase Troponin I Total Protein Albumin Urine Color Urine Appearance Urine pH Ur Specific [place] Urine Protein Urine Glucose (UA) Urine Ketones Urine Blood Urine Nitrite Urine Bilirubin Urine Urobilinogen Ur Leukocyte Esterase Urine WBC (Auto) Urine RBC (Auto) Urine Casts (Auto) U Epithel Cells (Auto) Urine Bacteria (Auto) Blood Type A POSITIVE Antibody Screen Negative Crossmatch See Detail 07/02/19 07/02/19 07/02/19 04:46 05:45 06:00 WBC Cancelled Corrected WBC (auto) Cancelled RBC Cancelled Hgb Cancelled Hct Cancelled MCV Cancelled MCH Cancelled MCHC Cancelled RDW Cancelled Plt Count Cancelled MPV Cancelled Absolute Neuts (auto) Neutrophils % Neutrophils % (Manual) Band Neutrophils % Lymphocytes % Lymphocytes % (Manual) Monocytes % Monocytes % (Manual) Eosinophils % Eosinophils % (Manual) Basophils % Basophils % (Manual) Myelocytes % (Man) Promyelocytes % (Man) Blast Cells % (Manual) Nucleated RBC % Metamyelocytes Manual Slide Review Cancelled Hypochromia Platelet Estimate Platelet Comment Cancelled Polychromasia Anisocytosis Schistocytes PTT (Actin FS) Puncture Site Left radial ABG pH 7.46 H ABG pCO2 at Pt Temp 30.0 L ABG pO2 at Pt Temp 359 H ABG HCO3 21.2 L ABG O2 Sat (Measured) 100.0 H ABG O2 Content 12.8 ABG Base Excess -1.6 Tom Test Positive VBG pH POC VBG pCO2 POC VBG pO2 VBG HCO3 VBG O2 Sat (Maylin) VBG Base Excess O2 Delivery Device Bipap Oxygen Flow Rate 100% Vent Mode S/t Vent Rate 14 Mechanical Rate Bipap Pressure Support Vent 15/5 Sodium 135 L Potassium 3.3 L Chloride 98 Carbon Dioxide 24 Anion Gap 13 BUN 80.3 H Creatinine 4.0 H Est GFR (CKD-EPI)AfAm 18.04 Est GFR (CKD-EPI)NonAf 15.56 POC Glucometer Random Glucose 81 Lactic Acid Calcium 8.5 Phosphorus 1.9 L Magnesium 2.1 Total Bilirubin 1.0 AST 221 H ALT 207 H Alkaline Phosphatase 178 H Troponin I Total Protein 6.0 L Albumin 1.3 L Urine Color Urine Appearance Urine pH Ur Specific [place] Urine Protein Urine Glucose (UA) Urine Ketones Urine Blood Urine Nitrite Urine Bilirubin Urine Urobilinogen Ur Leukocyte Esterase Urine WBC (Auto) Urine RBC (Auto) Urine Casts (Auto) U Epithel Cells (Auto) Urine Bacteria (Auto) Blood Type Antibody Screen Crossmatch 07/02/19 07/02/19 07/02/19 06:00 06:00 06:10 WBC 17.8 H Corrected WBC (auto) RBC 2.65 L Hgb 7.1 L Hct 21.9 L MCV 82.5 MCH 26.7 MCHC 32.4 RDW 18.0 H Plt Count 379 MPV 8.0 Absolute Neuts (auto) 15.3 H Neutrophils % 85.8 H Neutrophils % (Manual) Band Neutrophils % Lymphocytes % 2.0 L D Lymphocytes % (Manual) Monocytes % 9.6 Monocytes % (Manual) Eosinophils % 2.1 Eosinophils % (Manual) Basophils % 0.5 Basophils % (Manual) Myelocytes % (Man) Promyelocytes % (Man) Blast Cells % (Manual) Nucleated RBC % 0 Metamyelocytes Manual Slide Review Hypochromia Platelet Estimate Platelet Comment Polychromasia Anisocytosis Schistocytes PTT (Actin FS) Puncture Site ABG pH ABG pCO2 at Pt Temp ABG pO2 at Pt Temp ABG HCO3 ABG O2 Sat (Measured) ABG O2 Content ABG Base Excess Tom Test VBG pH POC VBG pCO2 POC VBG pO2 VBG HCO3 VBG O2 Sat (Maylin) VBG Base Excess O2 Delivery Device Oxygen Flow Rate Vent Mode Vent Rate Mechanical Rate Pressure Support Vent Sodium Potassium Chloride Carbon Dioxide Anion Gap BUN Creatinine Est GFR (CKD-EPI)AfAm Est GFR (CKD-EPI)NonAf POC Glucometer 94 Random Glucose Lactic Acid 2.0 Calcium Phosphorus Magnesium Total Bilirubin AST ALT Alkaline Phosphatase Troponin I Total Protein Albumin Urine Color Urine Appearance Urine pH Ur Specific [place] Urine Protein Urine Glucose (UA) Urine Ketones Urine Blood Urine Nitrite Urine Bilirubin Urine Urobilinogen Ur Leukocyte Esterase Urine WBC (Auto) Urine RBC (Auto) Urine Casts (Auto) U Epithel Cells (Auto) Urine Bacteria (Auto) Blood Type Antibody Screen Crossmatch ASSESSMENT/PLAN: Septic Shock due to suspected PNA, source, possible soft tissue (PEG Site) ESRD Obesity HTN HLD CHF COPD Gout Bipolar Disorder Schizophrenia Acute toxic metabolic encephalopathy vs Stroke Do not suspect ARDS Pressors to maintain MAP > 65 IVF ABX per ID Chaudhari-culture ECHO NIPPV support as needed Strict I & O VTE prophylaxis HD per Renal Dr Masters - Critical Care Critical Care patient: Yes Total Critical Care Time (in minutes): 36 Critical Care Statement: The care of this patient involved high complexity decision making to prevent further life threatening deterioration of the patient 's condition and/or to evaluate & treat vital organ system(s) failure or risk of failure.
--- NOTE | 2019-07-02 09:46 | CON.GI ---
Consult Consult Specialty:: GI: For Dr. oro who resumes care 07/03 Referred by:: Dr. Tanya eaton Reason for Consultation:: G-Tube and Colitis - History of Present Illness Chief Complaint: Non-Verbal History of Present Illness: 59M admitted through [facility] ER for evaluation of fever. Asked to evaluate for G- Tube that was dislodged and possible colitis. CT scan not officially read as of yet. Noted tachycardic and febrile. No diarrhea noted today. Some loose bowel movements lats night. It appears as though sometime between 03/08 and now the G- tube had been placed because it was not apparent on 03/08 CT scan. - History Source History Provided By: Medical Record Limitations to Obtaining History: Other (Non-verbal) - Past Medical History Cardio/Vascular: Yes: CHF, HTN, Hyperlipdemia Pulmonary: Yes: COPD Renal/: Yes: Renal Failure, Renal Inusuff, Hemodialysis Psych: Yes: Bipolar, Schizophrenia Musculoskeletal: Yes: Other (Slight edema of the skin in left buttock , no pain , not tender, there is superficial breakdown of the skin of left buttock.) Rheumatology: Yes: Gout Additional Medical History: obesity, non compliance - Past Surgical History Past Surgical History: Yes: None - Alcohol/Substance Use Hx Alcohol Use: No History of Substance Use: reports: None - Smoking History Smoking history: Never smoked Have you smoked in the past 12 months: No Aproximately how many cigarettes per day: 0 - Social History Usual Living Arrangement: Alf ADL: Support Services Occupation: disability History of Recent Travel: No Home Medications - Allergies Allergies/Adverse Reactions: Allergies Allergy/AdvReac Type Severity Reaction Status Date / Time No Known Allergies Allergy Verified 07/01/19 12:38 - Home Medications Home Medications: Ambulatory Orders Acetaminophen [Tylenol] 650 mg PO ASDIR 03/08/19 Allopurinol [Zyloprim -] 100 mg PO DAILY 03/08/19 Aripiprazole [Abilify] 10 mg PO DAILY 03/08/19 Atorvastatin Ca [Lipitor] 40 mg PO HS 03/08/19 Carvedilol 6.25 mg PO BID 03/08/19 Zinc Sulfate 220 mg PO DAILY 03/08/19 Collagenase Clostridium Hist. [Santyl -] 1 applic TP BID 07/01/19 Folic Acid 1 mg PO DAILY 07/01/19 Folic Acid/Vit B Complex and C [Dialyvite Tablet] 1 each PO DAILY 07/01/19 Midodrine HCl 2.5 mg PO TID 07/01/19 Omeprazole 20 mg PO DAILY 07/01/19 Ondansetron HCl 4 mg PO TID 07/01/19 Family Medical History Family History: Unable to Obtain Review of Systems Unable to obtain ROS, reason: Non-Verbal Physical Exam-GI Vital Signs: Vital Signs Temperature 99.8 F H 07/02/19 09:00 Pulse Rate 103 H 07/02/19 09:00 Respiratory Rate 23 H 07/02/19 09:00 Blood Pressure 109/72 07/02/19 09:00 O2 Sat by Pulse Oximetry (%) 100 07/02/19 06:45 Constitutional: Yes: Calm Eyes: No: Sclera Icterus Cardiovascular: Yes: Tachycardia Respiratory: Yes: Diminished (at bases bilaterally with poor inspiratory effort) Gastrointestinal Inspection: Yes: Other (an small haitian NG tube was in an upper abdominal stoma. gastric content leaking around the tube. The surrounding skin of the stoma was somewhat hyperpigmented and peristomal skin was stretched. There was a smaller opening at the caudad border of the stoma. There was no induration or erythema / purulence.) ...Auscultate: Yes: Normoactive Bowel Sounds ...Palpate: No: Tenderness (No grimacing upon palpation) Neurological: Yes: Other (Awake) Labs: CBC, BMP 07/02/19 06:00 07/02/19 06:00 Assessment/Plan 1. Dislodged G-Tube: G-Tube was not present on 03/[address] scan. unclear when this was placed but the G-Tube stoma site is distorted. Would try to obtain information regarding timing of G-Tube placement and if there were any reported post PEG complications such as peristomal abscess. I placed a 24 Fr. Replacement balloon gastrostomy tube to prevent further spillage of gastric content, however, the site may need to be given time to heal and new site used. Obtain G-Tube study (ordered) and hold feeds for now ID evaluation Wound care evaluation 2. Diarrhea: No diarrhea reported today Follow-up official CT scan report Stool for C. Diff if persistent diarrhea 3. Abnormal LFTs: Ordered bedside abd US Avoid hepatotoxic agents D/C'd IV tylenol 4. Anemia: Guaiac + on previous evaluation when evaluated by Dr. Oro. endoscopic evaluation when medically stable heme eval Dr. Oro resumes care 07/03
--- NOTE | 2019-07-02 10:23 | CON.CARD ---
Consult Consult Specialty:: Cardiology Referred by:: Pablo Reason for Consultation:: CHF - History of Present Illness Chief Complaint: fever abd pain History of Present Illness: 59 y/o M with PMHx of diastolic CHF, NIDDM, HTN, HLD, ESRD-HD, noncompliant with medications, bipolar disorder multiple admissions for bp control, fluid overload admitted with fever, unable to give history. He recently refused stress testing. He was transferred to ICU for worsening sepsis with shock. Echo 11/17/18 showed normal EF. - History Source History Provided By: Patient, Medical Record - Past Medical History Cardio/Vascular: Yes: CHF, HTN, Hyperlipdemia Pulmonary: Yes: COPD Renal/: Yes: Renal Failure, Renal Inusuff, Hemodialysis Psych: Yes: Bipolar, Schizophrenia Musculoskeletal: Yes: Other (Slight edema of the skin in left buttock , no pain , not tender, there is superficial breakdown of the skin of left buttock.) Rheumatology: Yes: Gout Additional Medical History: obesity, non compliance - Past Surgical History Past Surgical History: Yes: None - Alcohol/Substance Use Hx Alcohol Use: No History of Substance Use: reports: None - Smoking History Smoking history: Never smoked Have you smoked in the past 12 months: No Aproximately how many cigarettes per day: 0 - Social History Usual Living Arrangement: Long Term ADL: Support Services Occupation: disability History of Recent Travel: No Home Medications - Allergies Allergies/Adverse Reactions: Allergies Allergy/AdvReac Type Severity Reaction Status Date / Time No Known Allergies Allergy Verified 07/01/19 12:38 - Home Medications Home Medications: Ambulatory Orders Acetaminophen [Tylenol] 650 mg PO ASDIR 03/08/19 Allopurinol [Zyloprim -] 100 mg PO DAILY 03/08/19 Aripiprazole [Abilify] 10 mg PO DAILY 03/08/19 Atorvastatin Ca [Lipitor] 40 mg PO HS 03/08/19 Carvedilol 6.25 mg PO BID 03/08/19 Zinc Sulfate 220 mg PO DAILY 03/08/19 Collagenase Clostridium Hist. [Santyl -] 1 applic TP BID 07/01/19 Folic Acid 1 mg PO DAILY 07/01/19 Folic Acid/Vit B Complex and C [Dialyvite Tablet] 1 each PO DAILY 07/01/19 Midodrine HCl 2.5 mg PO TID 07/01/19 Omeprazole 20 mg PO DAILY 07/01/19 Ondansetron HCl 4 mg PO TID 07/01/19 Vital Signs: Vital Signs Temperature 99.1 F 07/02/19 10:00 Pulse Rate 105 H 07/02/19 10:00 Respiratory Rate 22 H 07/02/19 10:00 Blood Pressure 87/46 L 07/02/19 10:00 O2 Sat by Pulse Oximetry (%) 100 07/02/19 06:45 - Other Data Labs, Other Data: CBC, BMP 07/02/19 06:00 07/02/19 06:00 Troponin, BNP 07/01/19: Troponin I < 0.02 Troponin, BNP 07/01/19: Troponin I < 0.02 Imaging - Results Chest X-ray: Report Reviewed (michelle) EKG: Report Reviewed (no change) Assessment/Plan 59 y/o M with PMHx of diastolic CHF, NIDDM, HTN, HLD, ESRD-HD, noncompliant with medications, bipolar disorder multiple admissions for bp control, fluid overload admitted with fever, being worked up for possible colitis. He recently refused stress testing. He was transferred to ICU for worsening sepsis with shock. Echo 11/17/18 showed normal EF. IMP: sepsis with shock Plan: -doubt acute ACS -troponin due to renal issues -recent echo normal EF, not candidate for workup. -likely due to sepsis with shock. -abx per CCM, continue support of airway and vital functions. -echo rpt pending.
[2019-07-02] MEDS: MUPIROCIN 2% TOPICAL OINTMENT FOR DECOLONIZATION NS SCH ×2 (10:30→21:37)
--- NOTE | 2019-07-02 11:15 | PN ---
Physical Exam: SUBJECTIVE: Patient seen and examined in ICU. No acute events overnight. Pt was seen by GI who replaced the merlos catheter in PEG and ordered imaging to confirm PEG tube placement. OBJECTIVE: Vital Signs Period Temp Pulse Resp BP Sys/Castillo Pulse Ox Last 24 Hr 97.4 F-101.7 F 94-145 15-40 64-153/41-96 100-100 GENERAL: The patient is awake, alert, in no acute distress. Pt nonverbal but responsive to commands. NECK: supple. LUNGS: Breath sounds decreased at bases HEART: Regular rate and rhythm, S1, S2 without murmur, rub or gallop. ABDOMEN: Soft, nontender, nondistended, PEG tube in place draining purulent fluid. EXTREMITIES: 2+ pulses, warm, well-perfused, no edema. SKIN: b/l LE ulcers Laboratory Results - last 24 hr 07/01/19 07/01/19 07/01/19 10:30 10:45 10:45 WBC 17.0 H Corrected WBC (auto) RBC 2.57 L Hgb 6.6 L* Hct 21.4 L D MCV 83.1 MCH 25.7 MCHC 31.0 L RDW 18.1 H Plt Count 360 D MPV 8.1 Absolute Neuts (auto) 13.4 H Neutrophils % 78.7 Neutrophils % (Manual) 70.3 Band Neutrophils % 1.0 Lymphocytes % 4.2 L D Lymphocytes % (Manual) 9.9 D Monocytes % 12.6 H Monocytes % (Manual) 14 H D Eosinophils % 3.4 D Eosinophils % (Manual) 3.0 D Basophils % 1.1 D Basophils % (Manual) 0.0 Myelocytes % (Man) 1 D Promyelocytes % (Man) 0 Blast Cells % (Manual) 0 Nucleated RBC % 0 Metamyelocytes 0 D Manual Slide Review Hypochromia 1+ Platelet Estimate Normal Platelet Comment Polychromasia 1+ Anisocytosis 1+ Schistocytes 1+ PTT (Actin FS) Puncture Site ABG pH ABG pCO2 at Pt Temp ABG pO2 at Pt Temp ABG HCO3 ABG O2 Sat (Measured) ABG O2 Content ABG Base Excess Tom Test VBG pH POC VBG pCO2 POC VBG pO2 VBG HCO3 VBG O2 Sat (Maylin) VBG Base Excess O2 Delivery Device Oxygen Flow Rate Vent Mode Vent Rate Mechanical Rate Pressure Support Vent Sodium Potassium Chloride Carbon Dioxide Anion Gap BUN Creatinine Est GFR (CKD-EPI)AfAm Est GFR (CKD-EPI)NonAf POC Glucometer Random Glucose Lactic Acid 2.6 H* Calcium Phosphorus Magnesium Total Bilirubin AST ALT Alkaline Phosphatase Troponin I Total Protein Albumin Urine Color Dk yellow Urine Appearance Turbid Urine pH 6.0 Ur Specific [place] 1.016 Urine Protein 3+ H Urine Glucose (UA) Negative Urine Ketones Negative Urine Blood 3+ H Urine Nitrite Negative Urine Bilirubin Negative Urine Urobilinogen 0.2 Ur Leukocyte Esterase 2+ H Urine WBC (Auto) 44 Urine RBC (Auto) 15-20 Urine Casts (Auto) 7 U Epithel Cells (Auto) 1.3 Urine Bacteria (Auto) Many Blood Type Antibody Screen Crossmatch Active Medications Generic Name Dose Route Start Last Admin Trade Name Freq PRN Reason Stop Dose Admin Aspirin 81 mg 07/02/19 11:15 Ecotrin - PO DAILY [facility] Chlorhexidine Gluconate 1 applic 07/02/19 22:00 Hibiclens For Decolonization - TP HS RONALD Piperacillin Sod/Tazobactam 50 mls @ 100 mls/hr 07/02/19 02:00 07/02/19 06:42 Sod 3.375 gm/ Dextrose IVPB 07/02/19 18:29 100 mls/hr Q8H-IV RONALD Administration Piperacillin Sod/Tazobactam 50 mls @ 100 mls/hr 07/02/19 03:52 Sod 2.25 gm/ Dextrose IVPB Q8H-IV [facility] Protocol Insulin Aspart 1 vial 07/02/19 07:00 07/02/19 06:23 Novolog Vial Sliding Scale - SQ Not Given ACHS [facility] Protocol Mupirocin 1 applic 07/02/19 10:00 Bactroban Ointment (For Decolonization) - NS 07/07/19 09:59 BID [facility] ASSESSMENT/PLAN: 59 yo morbidly w/ PMH of ESRD (, , ), obesity, HTN, HLD, CHF, COPD, gout, Bipolar Disorder, and schizophrenia presented from [facility] for fever. Pt is admitted to ICU for severe sepsis 2/2 pneumonia vs GI source. Neuro: Toxic metabolic encephalopathy vs Stroke -Awake and alert. Baseline mental status is nonverbal but responsive to commands. -preliminary CT head findings : Low-density seen in the left parietal and occipital lobe consistent with infarction, probably acute or subacute in age. -neuro recs- MRI when stable and ASA 81mg. Cardio: hypotension, HLD, HFpEF -continue to monitor vitals -central line in place, on levo will try to wean as tolerated to maintani MAP > 65. -cardio recs appreciated- doubt ACS picture, most likely due to ESRD, f/u echo results -Echo 10/2018: LVEF nml, mild LVH, trace TR Pulm: Acute respiratory failure possible ARDS , COPD -saturating well on NC - CT shows Moderate to large left and moderate right pleural effusions with overlying atelectasis -pt appears to be aspirating , b/l rhonchi on exam -throughout the night, pt's work of breathing increased and pt began to desaturate. pt was started on BIPAP and saturations improved. -ABG reviewed ID: Severe Sepsis 2/2 pneumonia, UTI, ulcers on b/l LE's -rpt lactate 2.0 -leukocytosis 18.5 -awaiting vaughan cultures (+) UA - continue renally dosed zosyn, follow vanco random level tomorrow, and start vanco after dialysis if level is below 15. GI -PEG tube continuously becomes dislodged ( x2 in ED ), Dr. Medina replaced the tubing to help drain the purulent fluid. - Gastrograffin KUB ordered to assess proper PEG placement. -Elevated LFT's, hold statin at this time. -CT: Diffuse mild thickened appearance of the colon may be related to under distention versus mild colitis Nephro: ESRD -undergoing dialysis -nephro recs appreciated- Dr. Maldonado increased catabolic rate, electrolyte derangement, volume overloaded rendering pt to undergo dialysis today. Anemia: acute vs chronic -Hgb: 7.1, transfused pt with one bag of prbc today. -baseline: 8-9 F/E/N -hypokalemia: will not replete Dispo: We will continue to follow the patient. Thank you for this consultative opportunity. Visit type - Emergency Visit Emergency Visit: Yes ED Registration Date: 07/01/19 Care time: The patient presented to the Emergency Department on the above date and was hospitalized for further evaluation of their emergent condition. - New Patient This patient is new to me today: Yes Date on this admission: 07/02/19 - Critical Care Critical Care patient: Yes Total Critical Care Time (in minutes): 35 Critical Care Statement: The care of this patient involved high complexity decision making to prevent further life threatening deterioration of the patient 's condition and/or to evaluate & treat vital organ system(s) failure or risk of failure. - Discharge Referral Referred to [facility] Med [facility].: No ATTENDING PHYSICIAN STATEMENT I saw and evaluated the patient. I reviewed the resident's note and discussed the case with the resident. I agree with the resident's findings and plan as documented. SUBJECTIVE: OBJECTIVE: ASSESSMENT AND PLAN:
--- NOTE | 2019-07-02 11:17 | PN ---
Progress Note, Physician History of Present Illness: pt seen/ examined in icu chart is reviewed send by me from [facility] yesterday for concern of sepsis all consults noted/ appreciated Also d/w Rn/ Icu resident as well as ICu attending and Gi Pt got k suupplement !! Advised Icu resident to stop also aditya got one dose-- Further dosing by levels and as needed Also decrease dose of Zosyn- Renal Pt Lethargic but arousable Answers simple questions by turning head On NIPPV and pressors - Current Medication List Current Medications: Active Medications Chlorhexidine Gluconate (Hibiclens For Decolonization -) 1 applic TP HS RONALD Piperacillin Sod/Tazobactam (Sod 3.375 gm/ Dextrose) 50 mls @ 100 mls/hr IVPB Q8H-IV RONALD Stop: 07/02/19 18:29 Last Admin: 07/02/19 06:42 Dose: 100 mls/hr Piperacillin Sod/Tazobactam (Sod 2.25 gm/ Dextrose) 50 mls @ 100 mls/hr IVPB Q8H-IV RONALD; Protocol Insulin Aspart (Novolog Vial Sliding Scale -) 1 vial SQ ACHS RONALD; Protocol Last Admin: 07/02/19 06:23 Dose: Not Given Mupirocin (Bactroban Ointment (For Decolonization) -) 1 applic NS BID RONALD Stop: 07/07/19 09:59 - Objective Vital Signs: Vital Signs Temperature 99.1 F 07/02/19 10:00 Pulse Rate 105 H 07/02/19 10:00 Respiratory Rate 22 H 07/02/19 10:00 Blood Pressure 87/46 L 07/02/19 10:00 O2 Sat by Pulse Oximetry (%) 100 07/02/19 06:45 Constitutional: Yes: Mild Distress, Obese. No: Moderate Distress Eyes: Yes: Conjunctiva Clear, Other (pulip reactive) Neck: Yes: Supple Cardiovascular: Yes: Regular Rate and Rhythm Respiratory: Yes: Diminished Gastrointestinal: Yes: Soft, Other ( gube-- surrounding area reddened) Edema: LLE: 1+, RLE: 1+ Neurological: Yes: Other (awake) Labs: CBC, BMP 07/02/19 06:00 07/02/19 06:00 - ....Imaging Chest X-ray: Report Reviewed Cat Scan: Report Reviewed EKG: Report Reviewed Problem List - Problems (1) Sepsis associated hypotension Code(s): A41.9 - SEPSIS, UNSPECIFIED ORGANISM; I95.9 - HYPOTENSION, UNSPECIFIED (2) ESRD (end stage renal disease) on dialysis Code(s): N18.6 - END STAGE RENAL DISEASE; Z99.2 - DEPENDENCE ON RENAL DIALYSIS (3) Septic shock Code(s): A41.9 - SEPSIS, UNSPECIFIED ORGANISM; R65.21 - SEVERE SEPSIS WITH SEPTIC SHOCK (4) Anemia Code(s): D64.9 - ANEMIA, UNSPECIFIED (5) Bipolar 1 disorder Code(s): F31.9 - BIPOLAR DISORDER, UNSPECIFIED (6) Morbid (severe) obesity due to excess calories Code(s): E66.01 - MORBID (SEVERE) OBESITY DUE TO EXCESS CALORIES (7) MOLLY (obstructive sleep apnea) Code(s): G47.33 - OBSTRUCTIVE SLEEP APNEA (ADULT) (PEDIATRIC) (8) Type 2 diabetes mellitus Code(s): E11.9 - TYPE 2 DIABETES MELLITUS WITHOUT COMPLICATIONS Qualifiers: 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 24 Fr. Replacement balloon gastrostomy tube replaced by GI G tube was Placed in 04/07- [facility] - D/w Dr. Holley Neuro/ i/d to follow Condition critical Will follow cc time approx 45 min
[2019-07-02] MEDS: ASPIRIN COATED 81 MG TABLET.EC PO SCH (11:30)
--- NOTE | 2019-07-02 11:37 | CON.NEURO ---
Consult - Past Medical History Cardio/Vascular: Yes: CHF, HTN, Hyperlipdemia Pulmonary: Yes: COPD Renal/: Yes: Renal Failure, Renal Inusuff, Hemodialysis Psych: Yes: Bipolar, Schizophrenia Musculoskeletal: Yes: Other (Slight edema of the skin in left buttock , no pain , not tender, there is superficial breakdown of the skin of left buttock.) Rheumatology: Yes: Gout Additional Medical History: obesity, non compliance - Past Surgical History Past Surgical History: Yes: None - Alcohol/Substance Use Hx Alcohol Use: No History of Substance Use: reports: None - Smoking History Smoking history: Never smoked Have you smoked in the past 12 months: No Aproximately how many cigarettes per day: 0 - Social History Usual Living Arrangement: Prison ADL: Support Services Occupation: disability History of Recent Travel: No Home Medications - Allergies Allergies/Adverse Reactions: Allergies Allergy/AdvReac Type Severity Reaction Status Date / Time No Known Allergies Allergy Verified 07/01/19 12:38 - Home Medications Home Medications: Ambulatory Orders Acetaminophen [Tylenol] 650 mg PO ASDIR 03/08/19 Allopurinol [Zyloprim -] 100 mg PO DAILY 03/08/19 Aripiprazole [Abilify] 10 mg PO DAILY 03/08/19 Atorvastatin Ca [Lipitor] 40 mg PO HS 03/08/19 Carvedilol 6.25 mg PO BID 03/08/19 Zinc Sulfate 220 mg PO DAILY 03/08/19 Collagenase Clostridium Hist. [Santyl -] 1 applic TP BID 07/01/19 Folic Acid 1 mg PO DAILY 07/01/19 Folic Acid/Vit B Complex and C [Dialyvite Tablet] 1 each PO DAILY 07/01/19 Midodrine HCl 2.5 mg PO TID 07/01/19 Omeprazole 20 mg PO DAILY 07/01/19 Ondansetron HCl 4 mg PO TID 07/01/19 Physical Exam-Neuro Vital Signs: Vital Signs Temperature 99.1 F 07/02/19 10:00 Pulse Rate 105 H 07/02/19 10:00 Respiratory Rate 22 H 07/02/19 10:00 Blood Pressure 87/46 L 07/02/19 10:00 O2 Sat by Pulse Oximetry (%) 100 07/02/19 06:45 Labs: CBC, BMP 07/02/19 06:00 07/02/19 06:00 Assessment/Plan cc Altered mental status and left occiptal stroke HPI 59 year old male history of ESRD,HTN,HLD,CHF,COPD,Gout, Bipolar disorder, Schizophrenia. Patigumaro has been admitted to hospital for mental tatus change and [id number]. Patient has ct head showed left occpital acute to subacute stroke. He is on aspirin. Patient has liver enzyme raised. I spoke to house staff and nursing staff. He is on nonrebreather and on epinephrine for blood pressure support . CC TIME 35 minute Allergies/Adverse Reactions: Allergies Allergy/AdvReac Type Severity Reaction Status Date / Time No Known Allergies Allergy Verified 07/01/19 12:38 Home Medications: Acetaminophen [Tylenol] 650 mg PO ASDIR 03/08/19 Allopurinol [Zyloprim -] 100 mg PO DAILY 03/08/19 Aripiprazole [Abilify] 10 mg PO DAILY 03/08/19 Atorvastatin Ca [Lipitor] 40 mg PO HS 03/08/19 Carvedilol 6.25 mg PO BID 03/08/19 Zinc Sulfate 220 mg PO DAILY 03/08/19 Collagenase Clostridium Hist. [Santyl -] 1 applic TP BID 07/01/19 Folic Acid 1 mg PO DAILY 07/01/19 Folic Acid/Vit B Complex and C [Dialyvite Tablet] 1 each PO DAILY 07/01/19 Midodrine HCl 2.5 mg PO TID 07/01/19 Omeprazole 20 mg PO DAILY 07/01/19 Ondansetron HCl 4 mg PO TID 07/01/19 ROS,FH, SH reviewed in chart NEUROLOGICAL EXAMINATION Alert opens eye, respond to painful stimul and not able to communicate afebrile bp 87/46 eomi, pupils reactivef no face asymmetry not able to examine if one side is moving less than other ct head reviewed showed subacute left occpital stroke Assessment/Plan Acute mental status change seems to be metabolic encephalopathy ( septicemia, hypotension, renal failure ) and pateint has left occpital stroke , subacute vs acute. Clinically unliekly to be meningitis Plan: suggest to continue aspirin, hold statin as liver enzyme are high - mri ofbrain can be obtained once patient is stable - PT, SPEECH , Dvt prophylaxis - would continue to follow with primary Thanking you so much Hever Coe MD
--- NOTE | 2019-07-02 12:19 | PN ---
Progress Note (short form) - Note Progress Note: SEPSIS ? SEPTIC SHOCK POSSIBLE SOURCES LUNG, SKIN(ANKLE ULCERS,GT, CATHETER), UTI LACTIC ACIDOSIS ESRD LEUKOCYTOSIS ELEVATED LFTS AWAIT SEPSIS W/U CONTINUE ZOSYN/ VANCOMYCIN ADJUSTED FOR ESRD CRITICAL CARE TIME 35MIN
--- NOTE | 2019-07-02 12:52 | CONS ---
INFECTIOUS DISEASE CONSULTATION DATE OF CONSULTATION: DATE OF DICTATION: 07/02/2019 HISTORY OF PRESENT ILLNESS: The patient is a 59-year-old male with history of end-stage renal disease on hemodialysis evaluated for possible septic shock. History was obtained from the chart as he cannot give a history. He is presently in the intensive care unit on BiPAP mask. The patient is a resident of a custodial facility. He was sent to the emergency room after he was noted to have fever and altered mental status. In the emergency room the patient was hypotensive and tachycardic. He was noted to have markedly elevated white blood cell count and lactic acidosis as well as elevated liver enzymes. He was seen by GI for a dislodged gastrostomy feeding tube. There were reports of purulent drainage around the site. Cultures were obtained and he was empirically treated with vancomycin and Zosyn. CAT scan reveals possible cerebral infarct. He is unable to offer any complaint. PAST MEDICAL HISTORY: Positive for end-stage renal disease on hemodialysis, congestive heart failure, hypertension, hyperlipidemia, diabetes mellitus, gouty arthritis, bipolar disorder. PAST SURGICAL HISTORY: Status post feeding gastrostomy and right chest dialysis catheter. ALLERGIES: No known allergies. MEDICATIONS: Include Tylenol, aspirin, insulin, Zosyn, vancomycin. SOCIAL HISTORY: He resides in a custodial facility. No active tobacco or alcohol use. SYSTEMS REVIEW: Neurologic: Positive for altered mental status. Cardiac: Negative chest pain or palpitations. Respiratory: As per HPI. Gastrointestinal: Negative vomiting or diarrhea. Genitourinary: End-stage renal disease on hemodialysis. LABORATORY DATA: White count 17.8 with left shift. Hematocrit 21.9. Platelets 379. Creatinine 4.0. Lactic acid 2.7. Total bilirubin 1.0. Alkaline phosphatase 178. AST 221, ALT 207. Urinalysis with 44 white cells. Chest x-ray shows congestion bilaterally, possible left lower lobe infiltrate. PHYSICAL EXAMINATION: General: He is chronically ill-appearing. He is slightly short of breath at rest on BiPAP. Vital Signs: Temperature 99.9, T-Max 101.7, blood pressure 87/46, pulse 105, regular, respirations 22/min. HEENT: Sclerae anicteric. Heart Sounds: S1, S2. Lungs: Diminished breath sounds bilaterally. Abdomen: Obese. [place] gastrostomy tube site but some bloody drainage from around the site. No gross purulence is noted. Extremities: Negative for edema. He has bilateral ankle ulcers at the area of the lateral malleolus bilaterally. They are deep; however, no purulent drainage or surrounding erythema noted. IMPRESSION: 1. Sepsis, rule out septic shock. 2. Lactic acidosis. 3. Altered mental status, rule out cerebrovascular accident versus toxic metabolic encephalopathy. 4. End-stage renal disease on hemodialysis. 5. Leukocytosis. 6. Elevated liver enzymes. 7. Bilateral ankle ulcers. 8. Urinary tract infection. Several potential sources for infection including lung, skin (ankle ulcers, gastrostomy tube site, dialysis catheter), urinary tract infection. Await sepsis workup. Continue empiric antibiotic coverage with vancomycin and Zosyn adjusted for end-stage renal disease. Supportive measures. ICU monitoring. Critical care time spent 35 minutes. Thank you for the kind referral. GENIE ALBARRAN M.D. [id number]
--- NOTE | 2019-07-02 13:13 | CON.NEP ---
Consult Consult Specialty:: Nephrology Referred by:: dr michael jackson Reason for Consultation:: esrd for hd - History of Present Illness Chief Complaint: fever, altered mental status History of Present Illness: 59 year old transferred from [place] with fever and obtundation. he is nonverbal, maybe baseline with dysphagia/G tube feeding he was hypotensive and was admitted to icu with sepsis and possible septic shock he responded to fluids and now is on pressors morbidly obese male non-verbal with a PMH of ESRD (, , ), HTN, HLD, CHF, COPD, gout, Bipolar Disorder, and schizophrenia - Past Medical History Cardio/Vascular: Yes: CHF, HTN, Hyperlipdemia Pulmonary: Yes: COPD Renal/: Yes: Renal Failure, Renal Inusuff, Hemodialysis Psych: Yes: Bipolar, Schizophrenia Musculoskeletal: Yes: Other (Slight edema of the skin in left buttock , no pain , not tender, there is superficial breakdown of the skin of left buttock.) Rheumatology: Yes: Gout Additional Medical History: obesity, non compliance - Past Surgical History Past Surgical History: Yes: None - Alcohol/Substance Use Hx Alcohol Use: No History of Substance Use: reports: None - Smoking History Smoking history: Never smoked Have you smoked in the past 12 months: No Aproximately how many cigarettes per day: 0 - Social History Usual Living Arrangement: Alf ADL: Support Services Occupation: disability History of Recent Travel: No Home Medications - Allergies Allergies/Adverse Reactions: Allergies Allergy/AdvReac Type Severity Reaction Status Date / Time No Known Allergies Allergy Verified 07/01/19 12:38 - Home Medications Home Medications: Ambulatory Orders Acetaminophen [Tylenol] 650 mg PO ASDIR 03/08/19 Allopurinol [Zyloprim -] 100 mg PO DAILY 03/08/19 Aripiprazole [Abilify] 10 mg PO DAILY 03/08/19 Atorvastatin Ca [Lipitor] 40 mg PO HS 03/08/19 Carvedilol 6.25 mg PO BID 03/08/19 Zinc Sulfate 220 mg PO DAILY 03/08/19 Collagenase Clostridium Hist. [Santyl -] 1 applic TP BID 07/01/19 Folic Acid 1 mg PO DAILY 07/01/19 Folic Acid/Vit B Complex and C [Dialyvite Tablet] 1 each PO DAILY 07/01/19 Midodrine HCl 2.5 mg PO TID 07/01/19 Omeprazole 20 mg PO DAILY 07/01/19 Ondansetron HCl 4 mg PO TID 07/01/19 Nephrology Consult - Height Height: 5 ft 8 in - Weight Weight: 250 lb 0.067 oz - BMI Body Mass Index (BMI): 38.0 - Lab Results CBC,BMP: CBC, BMP 07/02/19 06:00 07/02/19 06:00 Anion Gap: Anion Gap Anion Gap 13 MMOL/L (8-16) 07/02/19 06:00 - Physical Examination Vital Signs: Vital Signs Temperature 99.1 F 07/02/19 10:00 Pulse Rate 102 H 07/02/19 13:00 Respiratory Rate 23 H 07/02/19 13:00 Blood Pressure 121/82 07/02/19 13:00 O2 Sat by Pulse Oximetry (%) 95 07/02/19 09:00 Assessment/Plan ESRD on HD admitted to icu with sepsis poss septic shock now on vent (and s/p pressors), empirical abx other active problems Anemia hypokalemia hyponatremia noted Serum bicarb normal elevated lft hypoalbumin elev lactate subacute/acute left occipital stroke on head ct Underlying HTN, DM, COPD, Gout and psych disorders (bipolar/schizo) Plan- will dialyze as tolerated to transfuse and manage fluids simultaneously has increased catabolic state due to critical illness
[2019-07-02] MEDS ORDERED: SODIUM CHLORIDE 250 ML IV PRN (13:17)
[2019-07-02] MEDS ORDERED: EPOETIN ALFA 10,000 UNIT/1 ML VIAL SQ ONE (14:00)
[2019-07-02] MEDS: ALBUMIN HUMAN 25% 12.5 GM/50 ML VIAL IVPB SCH ×4 (15:30→17:31)
[2019-07-02] MEDS ORDERED: PIPERACILLIN/TAZOBACTAM 2.25 GM VIAL IVPB ONE (17:49)
[2019-07-02] MEDS: PIPERACILLIN/TAZOB 2.25 GM 2.25 GM in DEXTROSE 5%-WATER - 50 ML IVPB SCH (18:07)
[2019-07-02] MEDS: VASOPRESSIN 50 UNITS in SODIUM CHLORIDE 97.5 ML IVPB SCH (21:36)
[2019-07-02] MEDS: NOREPINEPHRINE BITARTRATE 8,000 MCG in DEXTROSE 5%-WATER - 492 ML IV SCH (21:37)
[2019-07-02] MEDS: CHLORHEXIDINE GLUCONATE 4% CLEANSER FOR DECOLONIZATION TP SCH (21:37)
--- NOTE | 2019-07-02 21:56 | EKG ---
Test Reason : Blood Pressure : / mmHG Vent. Rate : 106 BPM Atrial Rate : 106 BPM P-R Int : 192 ms QRS Dur : 082 ms QT Int : 356 ms P-R-T Axes : 046 009 056 degrees QTc Int : 472 ms SINUS TACHYCARDIA LOW VOLTAGE QRS BORDERLINE ECG WHEN COMPARED WITH ECG OF 01-JUL-2019 15:05, PREMATURE ATRIAL COMPLEXES ARE NO LONGER PRESENT MINIMAL CRITERIA FOR INFERIOR INFARCT ARE NO LONGER PRESENT Confirmed by Chayito Arredondo ([id number]) on 07/02/2019 9:56:16 PM Referred By: Kg RUIZ Confirmed By:Chayito Arredondo
[2019-07-02] MEDS ORDERED: ATORVASTATIN CA 40 MG TABLET (FP) PO SCH (22:00)
--- NOTE | 2019-07-02 22:02 | EKG ---
Test Reason : Blood Pressure : / mmHG Vent. Rate : 116 BPM Atrial Rate : 116 BPM P-R Int : 168 ms QRS Dur : 098 ms QT Int : 352 ms P-R-T Axes : 038 -08 040 degrees QTc Int : 489 ms SINUS TACHYCARDIA WITH PREMATURE ATRIAL COMPLEXES LOW VOLTAGE QRS CANNOT RULE OUT INFERIOR INFARCT (CITED ON OR BEFORE 21-JAN-2019) CANNOT RULE OUT ANTERIOR INFARCT (CITED ON OR BEFORE 21-JAN-2019) ABNORMAL ECG WHEN COMPARED WITH ECG OF 08-MAR-2019 10:31, FUSION COMPLEXES ARE NO LONGER PRESENT PREMATURE ATRIAL COMPLEXES ARE NOW PRESENT T WAVE INVERSION NO LONGER EVIDENT IN LATERAL LEADS Confirmed by Chayito Arredondo ([id number]) on 07/02/2019 10:02:33 PM Referred By: Confirmed By:Chayito Arredondo
[2019-07-03] MEDS ORDERED: DEXTROSE 5%-WATER - 50 ML IVPB ONE ×3 (01:09→18:19)
[2019-07-03] MEDS ORDERED: PIPERACILLIN/TAZOBACTAM 2.25 GM VIAL IVPB ONE ×3 (01:09→18:18)
[2019-07-03] MEDS: PIPERACILLIN/TAZOB 2.25 GM 2.25 GM in DEXTROSE 5%-WATER - 50 ML IVPB SCH ×3 (01:12→18:44)
[2019-07-03] MEDS: INSULIN SLIDING SCALE (NOVOLOG) 1 VIAL SQ SCH ×4 (06:05→22:17)
[2019-07-03 07:05] LABS: BASO % 0.7 % (0-2.0); EOS % 3.5 % (0-4.5); HEMATOCRIT 24.8 % (35.4-49); LYMPH % 4.1 % (8-40); MCH 26.6 pg (25.7-33.7); MCHC 32.2 g/dl (32.0-35.9); MEAN CELL VOLUME 82.6 fl (80-96); MEAN PLT VOLUME 7.7 fl (7.5-11.1); MONO % 16.5 % (3.8-10.2); NEUT % 75.2 % (42.8-82.8); PLATELET COUNT 370 K/MM3 (134-434); RBC 3.01 M/mm3 (4.00-5.60); RDW 17.4 % (11.9-15.9); WHITE BLOOD COUNT 12.1 K/mm3 (4.0-10.0)
[2019-07-03 07:30] LABS: ALBUMIN 1.6 g/dl (3.4-5.0); BILIRUBIN,TOTAL 0.8 mg/dL (0.2-1); BLOOD UREA NITROGEN 39.6 mg/dL (7-18); CALCIUM 8.4 mg/dL (8.5-10.1); CREATININE 2.7 mg/dL (0.55-1.3); MAGNESIUM 1.8 mg/dL (1.8-2.4); PHOSPHOROUS 1.8 mg/dL (2.5-4.9); POTASSIUM 3.1 mmol/L (3.5-5.1)
--- NOTE | 2019-07-03 07:34 | PN ---
Progress Note, Physician Chief Complaint: PEG site soft tissue breakdown History of Present Illness: 59 yo male PMH morbidly obese male non-verbal with a PMH of ESRD (, , ), HTN, HLD, CHF, COPD, gout, Bipolar Disorder, and schizophrenia presented to ED with SIRs and fever. He had a PEG placed on 04/[address] Santos Fernandez. CT scan shows it to be in place bu there is soft tissue stranding and air in the adjacent tract. He also has large pleural effusions which may be his septic focus. we were called to assess. - Current Medication List Current Medications: Active Medications Aspirin (Ecotrin -) 81 mg PO DAILY [facility] Last Admin: 07/02/19 11:30 Dose: Not Given Chlorhexidine Gluconate (Hibiclens For Decolonization -) 1 applic TP HS [facility] Last Admin: 07/02/19 21:37 Dose: 1 applic Piperacillin Sod/Tazobactam (Sod 2.25 gm/ Dextrose) 50 mls @ 100 mls/hr IVPB Q8H-IV [facility]; Protocol Last Admin: 07/03/19 01:12 Dose: 100 mls/hr Sodium Chloride (Normal Saline -) 250 mls @ 3,000 mls/hr IV PRN PRN PRN Reason: Hypotension during Dialysis Stop: 07/03/19 13:17 Norepinephrine Bitartrate 8, (000 mcg/ Dextrose) 500 mls @ 12.75 mls/hr IV ASDIR [facility]; Protocol Last Admin: 07/02/19 21:37 Dose: 0.03 mcg/kg/min, 12.75 mls/hr Vasopressin 50 units/ Sodium (Chloride) 100 mls @ 4 mls/hr IVPB ASDIR [facility]; Protocol Last Admin: 07/02/19 21:36 Dose: Not Given Insulin Aspart (Novolog Vial Sliding Scale -) 1 vial SQ ACHS [facility]; Protocol Last Admin: 07/03/19 06:05 Dose: Not Given Mupirocin (Bactroban Ointment (For Decolonization) -) 1 applic NS BID [facility] Stop: 07/07/19 09:59 Last Admin: 07/02/19 21:37 Dose: 1 applic - Objective Vital Signs: Vital Signs Temperature 98.2 F 07/03/19 03:00 Pulse Rate 98 H 07/03/19 06:00 Respiratory Rate 22 H 07/03/19 06:00 Blood Pressure 105/67 07/03/19 06:00 O2 Sat by Pulse Oximetry (%) 96 07/02/19 21:00 Constitutional: Yes: No Distress, Calm, Obese Eyes: Yes: Conjunctiva Clear, EOM Intact HENT: Yes: Atraumatic, Normocephalic Neck: Yes: Supple, Trachea Midline Cardiovascular: Yes: Regular Rate and Rhythm, S1, S2 Labs: CBC, BMP 07/03/19 06:00 07/03/19 06:00 Problem List - Problems (1) Infection of PEG site Assessment/Plan: 59yo male MMP with SIRs and what appears to be an infected PEG site with some soft tissue breakdown. Appears to be suitable for continued use. In place on imaging. Meticulous PEG site care by RN ID consult Broad spectrum IV antibiotics Re-evaluation by Dr. Fernandez Consider upsize exchange No acute intervention by General Surgery is indicated at this time. Thank you for the opportunity to participate in the care of this patient. Problems reviewed: Yes Code(s): K94.22 - GASTROSTOMY INFECTION (2) ESRD (end stage renal disease) on dialysis Problems reviewed: Yes Code(s): N18.6 - END STAGE RENAL DISEASE; Z99.2 - DEPENDENCE ON RENAL DIALYSIS (3) HLD (hyperlipidemia) Problems reviewed: Yes Code(s): E78.5 - HYPERLIPIDEMIA, UNSPECIFIED (4) Schizo affective schizophrenia Problems reviewed: Yes Code(s): F25.0 - SCHIZOAFFECTIVE DISORDER, BIPOLAR TYPE (5) Sepsis associated hypotension Problems reviewed: Yes Code(s): A41.9 - SEPSIS, UNSPECIFIED ORGANISM; I95.9 - HYPOTENSION, UNSPECIFIED (6) Systemic inflammatory response syndrome (SIRS) Code(s): R65.10 - SIRS OF NON-INFECTIOUS ORIGIN W/O ACUTE ORGAN DYSFUNCTION (7) Arthritis Code(s): M19.90 - UNSPECIFIED OSTEOARTHRITIS, UNSPECIFIED SITE (8) Bipolar 1 disorder Problems reviewed: Yes Code(s): F31.9 - BIPOLAR DISORDER, UNSPECIFIED (9) Hypertension Problems reviewed: Yes Code(s): I10 - ESSENTIAL (PRIMARY) HYPERTENSION Qualifiers: Hypertension type: unspecified Qualified Code(s): I10 - Essential (primary ) hypertension (10) Morbid (severe) obesity due to excess calories Problems reviewed: Yes Code(s): E66.01 - MORBID (SEVERE) OBESITY DUE TO EXCESS CALORIES (11) Type 2 diabetes mellitus Problems reviewed: Yes Code(s): E11.9 - TYPE 2 DIABETES MELLITUS WITHOUT COMPLICATIONS Qualifiers: Diabetes mellitus mcc insulin use: unspecified mcc insulin use status Diabetes mellitus complication status: with unspecified complications
--- NOTE | 2019-07-03 07:45 | CONSULT ---
Consult Consult Specialty:: General Surgery Reason for Consultation:: PEG site concern - History of Present Illness Chief Complaint: fevers History of Present Illness: 59 yo male PMH morbidly obese male non-verbal with a PMH of ESRD (, , ), HTN, HLD, CHF, COPD, gout, Bipolar Disorder, and schizophrenia presented to ED with SIRs and fever. He had a PEG placed on 04/[address] Santos Fernandez. CT scan shows it to be in place bu there is soft tissue stranding and air in the adjacent tract. He also has large pleural effusions which may be his septic focus. we were called to assess. - History Source History Provided By: Patient, Medical Record Limitations to Obtaining History: No Limitations - Past Medical History Cardio/Vascular: Yes: CHF, HTN, Hyperlipdemia Pulmonary: Yes: COPD Renal/: Yes: Renal Failure, Renal Inusuff, Hemodialysis Psych: Yes: Bipolar, Schizophrenia Musculoskeletal: Yes: Other (Slight edema of the skin in left buttock , no pain , not tender, there is superficial breakdown of the skin of left buttock.) Rheumatology: Yes: Gout Additional Medical History: obesity, non compliance - Past Surgical History Past Surgical History: Yes: None - Alcohol/Substance Use Hx Alcohol Use: No History of Substance Use: reports: None - Smoking History Smoking history: Never smoked Have you smoked in the past 12 months: No Aproximately how many cigarettes per day: 0 - Social History Usual Living Arrangement: Correction ADL: Support Services Occupation: disability History of Recent Travel: No Home Medications - Allergies Allergies/Adverse Reactions: Allergies Allergy/AdvReac Type Severity Reaction Status Date / Time No Known Allergies Allergy Verified 07/01/19 12:38 - Home Medications Home Medications: Ambulatory Orders Acetaminophen [Tylenol] 650 mg PO ASDIR 03/08/19 Allopurinol [Zyloprim -] 100 mg PO DAILY 03/08/19 Aripiprazole [Abilify] 10 mg PO DAILY 03/08/19 Atorvastatin Ca [Lipitor] 40 mg PO HS 03/08/19 Carvedilol 6.25 mg PO BID 03/08/19 Zinc Sulfate 220 mg PO DAILY 03/08/19 Collagenase Clostridium Hist. [Santyl -] 1 applic TP BID 07/01/19 Folic Acid 1 mg PO DAILY 07/01/19 Folic Acid/Vit B Complex and C [Dialyvite Tablet] 1 each PO DAILY 07/01/19 Midodrine HCl 2.5 mg PO TID 07/01/19 Omeprazole 20 mg PO DAILY 07/01/19 Ondansetron HCl 4 mg PO TID 07/01/19 Review of Systems - Review of Systems Constitutional: reports: Fever. denies: Chills Eyes: denies: Blind Spots, Recent Change in Vision HENT: denies: Difficult Swallowing, Throat Pain Neck: denies: Decreased ROM, Tenderness Cardiovascular: denies: Chest Pain, Palpitations Respiratory: reports: Cough, SOB. denies: Exercise Intolerance, Hemoptysis Gastrointestinal: denies: Abdominal Pain Genitourinary: denies: Burning, Lesions Breasts: reports: No Symptoms Reported. denies: Pain Musculoskeletal: denies: Crepitus, Muscle Pain, Muscle Cramps Integumentary: denies: Bruising, Lesions, Pallor Neurological: denies: Seizure, Syncope Endocrine: denies: Unexplained Weight Gain, Unexplained Weight Loss Hematology/Lymphatic: denies: Easily Bruised, Excessive Bleeding Psychiatric: denies: Anxiety, Depression Physical Exam Vital Signs: Vital Signs Temperature 98.2 F 07/03/19 03:00 Pulse Rate 98 H 07/03/19 06:00 Respiratory Rate 22 H 07/03/19 06:00 Blood Pressure 105/67 07/03/19 06:00 O2 Sat by Pulse Oximetry (%) 96 07/02/19 21:00 Constitutional: Yes: No Distress, Calm, Mild Distress, Obese Eyes: Yes: Conjunctiva Clear, EOM Intact HENT: Yes: Atraumatic, Normocephalic Neck: Yes: Supple, Trachea Midline Cardiovascular: Yes: Regular Rate and Rhythm, S1, S2 Respiratory: Yes: Regular, Diminished, SOB Gastrointestinal: Yes: Normal Bowel Sounds, Soft, Abdomen, Obese, Other (PEG site is indurated in soft tissue, no drainge or erythema is appreciated). No: Tenderness, Tenderness, Rebound ...Rectal Exam: Yes: Deferred Renal/: No: CVA Tenderness - Left, CVA Tenderness - Right Breast(s): No: Mass, Nipple Inversion Musculoskeletal: No: Muscle Pain, Muscle Weakness Extremities: No: Cool, Cyanosis Edema: Yes Edema: LUE: Trace, RUE: Trace, LLE: Trace, RLE: Trace Peripheral Pulses WNL: Yes Integumentary: No: Incision, Jaundice Neurological: Yes: Alert, Oriented Psychiatric: Yes: Alert, Oriented Labs: CBC, BMP 07/03/19 06:00 07/03/19 06:00 Imaging - Results Chest X-ray: Report Reviewed, Image Reviewed Cat Scan: Report Reviewed, Image Reviewed Problem List - Problems (1) Infection of PEG site Assessment/Plan: 59yo male MMP with SIRs and what appears to be an infected PEG site with some soft tissue breakdown. Appears to be suitable for continued use. In place on imaging with out as discrete abscess collection. Meticulous PEG site care by RN ID consult Optimize protein nutrition Broad spectrum IV antibiotics Re-evaluation by Dr. Fernandez Consider up-size PEG exchange No acute intervention by General Surgery is indicated at this time recall as needed Thank you for the opportunity to participate in the care of this patient. Problems reviewed: Yes Code(s): K94.22 - GASTROSTOMY INFECTION (2) ESRD (end stage renal disease) on dialysis Problems reviewed: Yes Code(s): N18.6 - END STAGE RENAL DISEASE; Z99.2 - DEPENDENCE ON RENAL DIALYSIS (3) HLD (hyperlipidemia) Problems reviewed: Yes Code(s): E78.5 - HYPERLIPIDEMIA, UNSPECIFIED (4) Schizo affective schizophrenia Problems reviewed: Yes Code(s): F25.0 - SCHIZOAFFECTIVE DISORDER, BIPOLAR TYPE (5) Sepsis associated hypotension Problems reviewed: Yes Code(s): A41.9 - SEPSIS, UNSPECIFIED ORGANISM; I95.9 - HYPOTENSION, UNSPECIFIED (6) Systemic inflammatory response syndrome (SIRS) Problems reviewed: Yes Code(s): R65.10 - SIRS OF NON-INFECTIOUS ORIGIN W/O ACUTE ORGAN DYSFUNCTION (7) Arthritis Problems reviewed: Yes Code(s): M19.90 - UNSPECIFIED OSTEOARTHRITIS, UNSPECIFIED SITE (8) Bipolar 1 disorder Problems reviewed: Yes Code(s): F31.9 - BIPOLAR DISORDER, UNSPECIFIED (9) Hypertension Problems reviewed: Yes Code(s): I10 - ESSENTIAL (PRIMARY) HYPERTENSION Qualifiers: Hypertension type: unspecified Qualified Code(s): I10 - Essential (primary ) hypertension (10) Morbid (severe) obesity due to excess calories Problems reviewed: Yes Code(s): E66.01 - MORBID (SEVERE) OBESITY DUE TO EXCESS CALORIES (11) Type 2 diabetes mellitus Problems reviewed: Yes Code(s): E11.9 - TYPE 2 DIABETES MELLITUS WITHOUT COMPLICATIONS Qualifiers: Diabetes mellitus retirement insulin use: unspecified retirement insulin use status Diabetes mellitus complication status: with unspecified complications
[2019-07-03] MEDS ORDERED: NAPH,MB-DB/K PH,MBDB POWDER PACKET PO ONE (08:27)
--- NOTE | 2019-07-03 09:29 | PN ---
Physical Exam: SUBJECTIVE: Patient seen and examined at bedside. pt is in no acute distress. today, pt is more interactive and is able to communicate more. pt asked who i was and was able to nod yes or no. pt denied having pain. pt remembers having pain in his abdomen yesterday. OBJECTIVE: Vital Signs Period Temp Pulse Resp BP Sys/Castillo Pulse Ox Last 24 Hr 97.7 F-99.1 F 92-110 11-28 85-136/46-93 96 GENERAL: The patient is awake, alert, and oriented to self, in no acute distress. HEAD: Normal with no signs of trauma. EYES: PERRL, extraocular movements intact LUNGS: Breath sounds equal, decreased breath sounds at bases, no accessory muscle use. HEART: Regular rate and rhythm, S1, S2 ABDOMEN: Soft, nontender, nondistended, normoactive bowel sounds, PEG in place. EXTREMITIES: 2+ pulses, warm, well-perfused, no edema. b/l LE wound dressings. SKIN: Warm, dry, normal turgor, no rashes or lesions noted Laboratory Results 07/03/19 07/03/19 06:00 06:00 WBC 12.1 H RBC 3.01 L Hgb 8.0 L Hct 24.8 L MCV 82.6 MCH 26.6 MCHC 32.2 RDW 17.4 H Plt Count 370 MPV 7.7 Absolute Neuts (auto) 9.1 H Neutrophils % 75.2 Lymphocytes % 4.1 L D Monocytes % 16.5 H Eosinophils % 3.5 Basophils % 0.7 Nucleated RBC % 0 Sodium 136 Potassium 3.1 L Chloride 99 Carbon Dioxide 29 Anion Gap 9 BUN 39.6 H Creatinine 2.7 H Est GFR (CKD-EPI)AfAm 29.01 Est GFR (CKD-EPI)NonAf 25.03 POC Glucometer Random Glucose 81 Calcium 8.4 L Phosphorus 1.8 L Magnesium 1.8 Total Bilirubin 0.8 AST 103 H ALT 132 H Alkaline Phosphatase 154 H Total Protein 6.0 L Albumin 1.6 L Random Vancomycin Hep C Ab Diagnostic Hepatitis C RNA HCV RNA PCR 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/ml HCV RNA (PCR) IUs/ml HCV RNA PCR w/Genot Rflx Liver Fibrosis Interp Blood Type Antibody Screen Crossmatch Current Medications Aspirin (Ecotrin -) 81 mg PO DAILY [facility] Last Admin: 07/02/19 11:30 Dose: Not Given Chlorhexidine Gluconate (Hibiclens For Decolonization -) 1 applic TP HS [facility] Last Admin: 07/02/19 21:37 Dose: 1 applic Piperacillin Sod/Tazobactam (Sod 2.25 gm/ Dextrose) 50 mls @ 100 mls/hr IVPB Q8H-IV [facility]; Protocol Last Admin: 07/03/19 01:12 Dose: 100 mls/hr Sodium Chloride (Normal Saline -) 250 mls @ 3,000 mls/hr IV PRN PRN PRN Reason: Hypotension during Dialysis Stop: 07/03/19 13:17 Norepinephrine Bitartrate 8, (000 mcg/ Dextrose) 500 mls @ 12.75 mls/hr IV ASDIR [facility]; Protocol Last Admin: 07/02/19 21:37 Dose: 0.03 mcg/kg/min, 12.75 mls/hr Vasopressin 50 units/ Sodium (Chloride) 100 mls @ 4 mls/hr IVPB ASDIR [facility]; Protocol Last Admin: 07/02/19 21:36 Dose: Not Given Potassium Chloride (Potassium Chloride 10 Meq Premix Ivpb -) 10 meq in 100 mls @ 100 mls/hr IVPB Q60M [facility] Stop: 07/03/19 11:29 Insulin Aspart (Novolog Vial Sliding Scale -) 1 vial SQ ACHS [facility]; Protocol Last Admin: 07/03/19 06:05 Dose: Not Given Mupirocin (Bactroban Ointment (For Decolonization) -) 1 applic NS BID [facility] Stop: 07/07/19 09:59 Last Admin: 07/02/19 21:37 Dose: 1 applic ASSESSMENT/PLAN: 59 yo morbidly w/ PMH of ESRD (, , ), obesity, HTN, HLD, CHF, COPD, gout, Bipolar Disorder, and schizophrenia presented from [facility] for fever. Pt is admitted to ICU for severe sepsis 2/2 pneumonia vs GI source. Neuro: Toxic metabolic encephalopathy vs Stroke -Awake and alert. minimally verbal but responsive to commands. need to confirm baseline. will contact [facility] for next of kin information -preliminary CT head findings : Low-density seen in the left parietal and occipital lobe consistent with infarction, probably acute or subacute in age. -neuro recs appreciated -MRI when stable and ASA 81mg. Cardio: septic shock, HLD, HFpEF -continue to monitor vitals -central line in place (07/03), on levo will try to wean as tolerated to maintain MAP >65. -cardio recs appreciated -Echo 10/2018: LVEF nml, mild LVH, trace TR Pulm: Acute respiratory failure, COPD -saturating well on NC - CT shows Moderate to large left and moderate right pleural effusions with overlying atelectasis -On admission, pt's work of breathing increased and pt began to desaturate. pt was started on BIPAP and saturations improved. ID: Severe Sepsis 2/2 pneumonia, UTI, ulcers on b/l LE's -rpt lactate 2.0 -leukocytosis 18.5 -awaiting vaughan cultures (+) UA - continue renal dose zosyn, follow vanco random level. GI -PEG tube continuously becomes dislodged ( x2 in ED ), Dr. Pritchett replaced the tubing to help drain the purulent fluid. -GI recs appreciated -Elevated LFT's, hold statin at this time. -CT: Diffuse mild thickened appearance of the colon may be related to under distention versus mild colitis Nephro: ESRD -undergoing dialysis -nephro recs appreciated -dialysis yesterday, possible dialysis tomorrow Anemia: acute vs chronic -Hgb: 7.1, transfused pt with one bag of prbc today. -baseline: 8-9 F/E/N electrolytes repleted Dispo: We will continue to follow the patient. Thank you for this consultative opportunity. Visit type - Emergency Visit Emergency Visit: No - New Patient This patient is new to me today: No - Critical Care Critical Care patient: Yes Total Critical Care Time (in minutes): 36 Critical Care Statement: The care of this patient involved high complexity decision making to prevent further life threatening deterioration of the patient 's condition and/or to evaluate & treat vital organ system(s) failure or risk of failure. ATTENDING PHYSICIAN STATEMENT I saw and evaluated the patient. I reviewed the resident's note and discussed the case with the resident. I agree with the resident's findings and plan as documented. SUBJECTIVE: OBJECTIVE: ASSESSMENT AND PLAN:
[2019-07-03] MEDS: KCL 10 MEQ IVPB 10 MEQ/100 ML INFUS.BAG IVPB SCH ×3 (09:39→11:19)
[2019-07-03] MEDS: MUPIROCIN 2% TOPICAL OINTMENT FOR DECOLONIZATION NS SCH ×2 (09:39→21:50)
[2019-07-03] MEDS: ASPIRIN COATED 81 MG TABLET.EC PO SCH (09:40)
--- NOTE | 2019-07-03 09:44 | PN ---
Progress Note, Physician History of Present Illness: AWAKE. OFFERS NO COMPLAINTS TEMPS DOWN AFEBRILE WBC IMPROVED BC + SCN VANCOMYCIN LEVEL THERAPUTIC - Current Medication List Current Medications: Active Medications Aspirin (Ecotrin -) 81 mg PO DAILY [facility] Last Admin: 07/03/19 09:40 Dose: Not Given Chlorhexidine Gluconate (Hibiclens For Decolonization -) 1 applic TP HS [facility] Last Admin: 07/02/19 21:37 Dose: 1 applic Piperacillin Sod/Tazobactam (Sod 2.25 gm/ Dextrose) 50 mls @ 100 mls/hr IVPB Q8H-IV [facility]; Protocol Last Admin: 07/03/19 09:39 Dose: 100 mls/hr Sodium Chloride (Normal Saline -) 250 mls @ 3,000 mls/hr IV PRN PRN PRN Reason: Hypotension during Dialysis Stop: 07/03/19 13:17 Norepinephrine Bitartrate 8, (000 mcg/ Dextrose) 500 mls @ 12.75 mls/hr IV ASDIR [facility]; Protocol Last Admin: 07/02/19 21:37 Dose: 0.03 mcg/kg/min, 12.75 mls/hr Vasopressin 50 units/ Sodium (Chloride) 100 mls @ 4 mls/hr IVPB ASDIR [facility]; Protocol Last Admin: 07/02/19 21:36 Dose: Not Given Potassium Chloride (Potassium Chloride 10 Meq Premix Ivpb -) 10 meq in 100 mls @ 100 mls/hr IVPB Q60M [facility] Stop: 07/03/19 11:29 Last Admin: 07/03/19 09:39 Dose: 100 mls/hr Insulin Aspart (Novolog Vial Sliding Scale -) 1 vial SQ ACHS [facility]; Protocol Last Admin: 07/03/19 06:05 Dose: Not Given Mupirocin (Bactroban Ointment (For Decolonization) -) 1 applic NS BID [facility] Stop: 07/07/19 09:59 Last Admin: 07/03/19 09:39 Dose: 1 applic - Objective Vital Signs: Vital Signs Temperature 98.2 F 07/03/19 03:00 Pulse Rate 98 H 07/03/19 06:00 Respiratory Rate 22 H 07/03/19 06:00 Blood Pressure 105/67 07/03/19 06:00 O2 Sat by Pulse Oximetry (%) 96 07/02/19 21:00 Constitutional: Yes: No Distress, Obese Cardiovascular: Yes: Regular Rate and Rhythm, S1, S2 Respiratory: Yes: CTA Bilaterally Gastrointestinal: Yes: Normal Bowel Sounds, Soft, Other (GT SITE NO DRAINAGE). No: Tenderness Extremities: Yes: Other (+ BILATERAL ANKLE ULCERS NO DRAINAGE) Labs: CBC, BMP 07/03/19 06:00 07/03/19 06:00 Assessment/Plan SEPSIS R/O SEPTIC SHOCK + BC SCN ? SIGNIFICANCE ( SEVERAL POTENTIAL SKIN SOURCES) ESRD FEVER/ LEUKOCYTOSIS IMPROVED AWAIT FINAL BC OBTAIN RANDOM VANCO LEVEL CONTINUE ZOSYN/ VANCOMYCIN REPEAT BC AT HD
--- NOTE | 2019-07-03 10:26 | PN ---
Progress Note (short form) - Note Progress Note: 59 year old male history of ESRD,HTN,HLD,CHF,COPD,Gout, Bipolar disorder, Schizophrenia. Angela has been admitted to hospital for mental tatus change and [id number]. Patient has ct head showed left occpital acute to subacute stroke. He is on aspirin. Patient has liver enzyme raised. I spoke to house staff and nursing staff. Patient has improved clinically, off rebreather and patient is feeling better CC TIME 35 minute He opens eye and able to talk NEUROLOGICAL EXAMINATION Alert opens eye, and able to communite, [facility] he could not tell what date is this eomi, pupils reactivef ,? mild right facial palsy moving upper extremity more than lower extremity has has no hemiparesis reflex are generalized diminished not able to examine if one side is moving less than other ct head reviewed showed subacute left occpital stroke Assessment/Plan Acute mental status change seems to be metabolic encephalopathy ( septicemia, hypotension, renal failure ) and pateint has left occpital stroke , subacute vs acute. Mr Cortez has improved clinically. He seems to have severe critical illness neuropathy and deconditioning leading to weakness in lower extremity Plan: suggest to continue aspirin, hold statin as liver enzyme are high - mri ofbrain can be obtained once patient is stable - PT, SPEECH , Dvt prophylaxis - would continue to follow with primary Thanking you so much Hever Coe MD
[2019-07-03 11:51] LABS: ANISOCYTOSIS 1+; MACROCYTOSIS 0; PLATELET ESTIMATE NORMAL
[2019-07-03] MEDS ORDERED: MIDAZOLAM HCL 2 MG/2 ML SINGLE DOSE VIAL ONE ×2 (11:52→12:05)
--- NOTE | 2019-07-03 12:15 | PN ---
Teaching Attending Note Name of Resident: Becky Swenson ATTENDING PHYSICIAN STATEMENT I saw and evaluated the patient. I reviewed the resident's note and discussed the case with the resident. I agree with the resident's findings and plan as documented. SUBJECTIVE: Pt seen and examined in the ICU. Remains on levophed gtt. Awake but confused. OBJECTIVE: Vital Signs Period Temp Pulse Resp BP Sys/Castillo Pulse Ox Last 24 Hr 97.7 F-98.7 F 92-110 11-28 85-136/56-83 96-96 Intake & Output 06/30/19 07/01/19 07/02/19 07/03/19 23:59 23:59 23:59 23:59 Intake Total 1622 194 Output Total 3350 0 Balance -1728 194 Weight 101.877 kg 113.4 kg 102.421 kg Gen: awake, confused Heart: RRR Lung: decreased breath sounds at the bases Abd: soft, nontender Ext: no edema CBC, BMP 07/03/19 06:00 07/03/19 06:00 Active Medications Aspirin (Ecotrin -) 81 mg PO DAILY [facility] Last Admin: 07/03/19 09:40 Dose: Not Given Chlorhexidine Gluconate (Hibiclens For Decolonization -) 1 applic TP HS [facility] Last Admin: 07/02/19 21:37 Dose: 1 applic Piperacillin Sod/Tazobactam (Sod 2.25 gm/ Dextrose) 50 mls @ 100 mls/hr IVPB Q8H-IV [facility]; Protocol Last Admin: 07/03/19 09:39 Dose: 100 mls/hr Sodium Chloride (Normal Saline -) 250 mls @ 3,000 mls/hr IV PRN PRN PRN Reason: Hypotension during Dialysis Stop: 07/03/19 13:17 Norepinephrine Bitartrate 8, (000 mcg/ Dextrose) 500 mls @ 12.75 mls/hr IV ASDIR [facility]; Protocol Last Admin: 07/02/19 21:37 Dose: 0.03 mcg/kg/min, 12.75 mls/hr Vasopressin 50 units/ Sodium (Chloride) 100 mls @ 4 mls/hr IVPB ASDIR [facility]; Protocol Last Admin: 07/02/19 21:36 Dose: Not Given Insulin Aspart (Novolog Vial Sliding Scale -) 1 vial SQ ACHS [facility]; Protocol Last Admin: 07/03/19 06:05 Dose: Not Given Mupirocin (Bactroban Ointment (For Decolonization) -) 1 applic NS BID [facility] Stop: 07/07/19 09:59 Last Admin: 07/03/19 09:39 Dose: 1 applic ASSESSMENT AND PLAN: Infected Decubitus Ulcers r/o Pneumonia r/o G tube site Infection Gram Positive Bacteremia Septic Shock Lactic Acidosis ESRD on HD COPD LV Diastolic Dysfunction HTN Hyperlipidemia Bipolar Disorder Schizophrenia Anemia - continue antibiotics - f/u cultures - medically necessary to emergently change central line to LIJ to avoid central line associated infection - titrate pressors to maintain MAP >65 - HD per renal - O2 to keep SpO2 >90% - wound care - DVT prophylaxis - continue ICU monitoring critical care time spent in reviewing chart, evaluating patient and formulating plan 35 min
--- NOTE | 2019-07-03 12:48 | PN ---
Progress Note, Physician History of Present Illness: Pt seen and examined at bedside. He is awake and appears comfortable. He was dialyzed yesterday. - Current Medication List Current Medications: Active Medications Aspirin (Ecotrin -) 81 mg PO DAILY [facility] Last Admin: 07/03/19 09:40 Dose: Not Given Chlorhexidine Gluconate (Hibiclens For Decolonization -) 1 applic TP HS [facility] Last Admin: 07/02/19 21:37 Dose: 1 applic Piperacillin Sod/Tazobactam (Sod 2.25 gm/ Dextrose) 50 mls @ 100 mls/hr IVPB Q8H-IV [facility]; Protocol Last Admin: 07/03/19 09:39 Dose: 100 mls/hr Sodium Chloride (Normal Saline -) 250 mls @ 3,000 mls/hr IV PRN PRN PRN Reason: Hypotension during Dialysis Stop: 07/03/19 13:17 Norepinephrine Bitartrate 8, (000 mcg/ Dextrose) 500 mls @ 12.75 mls/hr IV ASDIR [facility]; Protocol Last Admin: 07/02/19 21:37 Dose: 0.03 mcg/kg/min, 12.75 mls/hr Vasopressin 50 units/ Sodium (Chloride) 100 mls @ 4 mls/hr IVPB ASDIR [facility]; Protocol Last Admin: 07/02/19 21:36 Dose: Not Given Insulin Aspart (Novolog Vial Sliding Scale -) 1 vial SQ ACHS [facility]; Protocol Last Admin: 07/03/19 06:05 Dose: Not Given Mupirocin (Bactroban Ointment (For Decolonization) -) 1 applic NS BID [facility] Stop: 07/07/19 09:59 Last Admin: 07/03/19 09:39 Dose: 1 applic - Objective Vital Signs: Vital Signs Temperature 98.7 F 07/03/19 08:00 Pulse Rate 97 H 07/03/19 08:00 Respiratory Rate 20 07/03/19 08:00 Blood Pressure 103/66 07/03/19 08:00 O2 Sat by Pulse Oximetry (%) 96 07/03/19 09:00 Constitutional: Yes: Calm Eyes: Yes: Conjunctiva Clear HENT: Yes: Atraumatic Neck: Yes: Supple Cardiovascular: Yes: S1, S2 Respiratory: Yes: On Nasal O2 Gastrointestinal: Yes: Soft, Abdomen, Obese Genitourinary: Yes: Hopkins Present Edema: Yes Edema: LLE: Trace, RLE: Trace Neurological: Yes: Confusion Labs: CBC, BMP 07/03/19 06:00 07/03/19 06:00 Assessment/Plan Current Medications Generic Name Dose Route Start Last Admin Trade Name Vandana PRN Reason Stop Dose Admin Aspirin 81 mg 07/02/19 11:30 07/03/19 09:40 Ecotrin - PO Not Given DAILY [facility] Chlorhexidine Gluconate 1 applic 07/02/19 22:00 07/02/19 21:37 Hibiclens For Decolonization - TP 1 applic HS [facility] Administration Piperacillin Sod/Tazobactam 50 mls @ 100 mls/hr 07/02/19 18:00 07/03/19 09:39 Sod 2.25 gm/ Dextrose IVPB 100 mls/hr Q8H-IV [facility] Administration Protocol Sodium Chloride 250 mls @ 3,000 mls/hr 07/02/19 13:17 Normal Saline - IV 07/03/19 13:17 PRN PRN Hypotension during Dialysis Norepinephrine Bitartrate 8, 500 mls @ 12.75 mls/hr 07/02/19 18:15 07/02/19 21:37 000 mcg/ Dextrose IV 0.03 mcg/kg/min ASDIR [facility] 12.75 mls/hr Administration Protocol 0.03 MCG/KG/MIN Vasopressin 50 units/ Sodium 100 mls @ 4 mls/hr 07/02/19 18:15 07/02/19 21:36 Chloride IVPB Not Given ASDIR [facility] Protocol 2 UNITS/HR Insulin Aspart 1 vial 07/02/19 07:00 07/03/19 06:05 Novolog Vial Sliding Scale - SQ Not Given ACHS [facility] Protocol Mupirocin 1 applic 07/02/19 10:00 07/03/19 09:39 Bactroban Ointment (For Decolonization) - NS 07/07/19 09:59 1 applic BID [facility] Administration Impression 1. ESRD 2. sepsis 3. gout 4. HTN 5. CHF 6. DM 7. hx bipolar 8. MOLLY 9. non compliance 10. bacteremia 11. lactic acidosis Plan - pt had HD yesterday - monitor hg - will evaluate for HD tomorrow - cont ICU care - follow cultures
--- NOTE | 2019-07-03 12:54 | PROC ---
Central Line Insertion Indication: Vasopressor Risks and Benefits Explained: Yes Consent on Chart: No (Emergent - verbal consent ) Central Line: Triple Lumen Catheter Anesthesia: 1% Lidocaine Sterile Technique: Yes Ultrasound Guided Assistance: Yes Position: Left Internal Jugular Post Insertion: Yes: Chest X-Ray Ordered Sterile Dressing Applied: Yes Remarks: Resident: Anson Ho MD; William Barry MD Attending: Orlando Lopez MD A time-out was completed verifying correct patient, procedure, site, positioning , and special equipment. The patient was placed in [place] appropriate for central line placement. The patients left neck and shoulder was prepped and draped in sterile fashion. 1% Lidocaine was used to anesthetize the surrounding skin area. A triple lumen catheter was introduced into the the left internal jugular using the Seldinger technique and under ultrasound guidance. The catheter was threaded smoothly over the guide wire and appropriate blood return was obtained. Each lumen of the catheter was evacuated of air and flushed with sterile saline. The catheter was then sutured in place to the skin and a sterile dressing applied. Perfusion to the extremity distal to the point of catheter insertion was checked and found to be adequate. Dr. Lopez was present for the entire procedure. The patient tolerated the procedure well and there were no complications.
[2019-07-03] MEDS ORDERED: POTASSIUM PHOSPHATE 30 MM in SODIUM CHLORIDE 500 ML IVPB ONE ×2 (13:25→13:35)
--- NOTE | 2019-07-03 14:32 | ECHO ---
Name: NEREIDA RIVERA Exam:Adult Echocardiogram Study Date: 07/03/2019 11:11 AM Age: 59 yrs Reason For Study: eval for hf Height: 68 in Weight: 224 lb BSA: 2.1 m2 MMode/2D Measurements & Calculations IVSd: 0.87 cm Ao root diam: 2.3 cm LVIDd: 3.5 cm LA dimension: 3.1 cm LVIDs: 2.5 cm LVPWd: 1.2 cm LVPWs: 1.4 cm EDV(Teich): 50.2 ml ESV(Teich): 22.3 ml Doppler Measurements & Calculations MV E max alyson: 78.5 cm/sec Ao V2 max: 126.4 cm/sec MV A max alyson: 106.6 cm/sec Ao max P.4 mmHg MV E/A: 0.74 Ao V2 mean: 79.3 cm/sec MV dec time: 0.09 sec Ao mean P.1 mmHg Ao V2 VTI: 20.3 cm LV V1 max P.9 mmHg TR max alyson: 229.8 cm/sec LV V1 mean P.2 mmHg TR max P.1 mmHg LV V1 max: 98.7 cm/sec LV V1 mean: 69.1 cm/sec LV V1 VTI: 17.3 cm PA V2 max: 108.1 cm/sec Med Peak E' Alyson: 7.6 cm/sec PA max P.7 mmHg Med E/e': 10.4 Lat Peak E' Alyson: 7.5 cm/sec Lat E/e': 10.5 Procedure A complete two-dimensional transthoracic echocardiogram was performed (2D, M-mode, Doppler and color flow Doppler). Technically limited study. Left Ventricle The left ventricle is normal in size. Left ventricular systolic function is normal. Ejection Fraction = 55- 60%. No regional wall motion abnormalities noted. Right Ventricle The right ventricle is normal size. The right ventricular systolic function is normal. RV systolic TD I is 13 cm/s. Atria The left atrial size is normal. Right atrial size is normal. Mitral Valve The mitral valve is normal in structure and function. There is no mitral regurgitation noted. Tricuspid Valve The tricuspid valve is normal in structure and function. No tricuspid regurgitation. Aortic Valve The aortic valve is normal in structure and function. No aortic regurgitation is present. Pulmonic Valve The pulmonic valve is not well visualized. Great Vessels The aortic root is normal size. Pericardium/Pleura There is no pericardial effusion. Large pleural effusion. Interpretation Summary Technically limited study The left ventricle is normal in size. Left ventricular systolic function is normal. No regional wall motion abnormalities noted. Ejection Fraction = 55-60%. The right ventricular systolic function is normal. The left atrial size is normal. Right atrial size is normal. No significant valvular regurgitations are seen There is no pericardial effusion. Large pleural effusion Anthony Akers MD 07/03/2019 02:31 PM
--- NOTE | 2019-07-03 17:14 | PN ---
Progress Note, Physician History of Present Illness: GI FOLLOW UP NOTE Patient examined and case discussed with Dr Fernandez Patient awake and alert. Noted with downtrend in WBC, currently 12.1. No reports of nausea, vomiting, abdominal pain, diarrhea, rectal bleeding or melena. CT scan results reviewed. - Current Medication List Current Medications: Active Medications Aspirin (Ecotrin -) 81 mg PO DAILY [facility] Last Admin: 07/03/19 09:40 Dose: Not Given Chlorhexidine Gluconate (Hibiclens For Decolonization -) 1 applic TP HS [facility] Last Admin: 07/02/19 21:37 Dose: 1 applic Piperacillin Sod/Tazobactam (Sod 2.25 gm/ Dextrose) 50 mls @ 100 mls/hr IVPB Q8H-IV [facility]; Protocol Last Admin: 07/03/19 09:39 Dose: 100 mls/hr Norepinephrine Bitartrate 8, (000 mcg/ Dextrose) 500 mls @ 12.75 mls/hr IV ASDIR [facility]; Protocol Last Admin: 07/02/19 21:37 Dose: 0.03 mcg/kg/min, 12.75 mls/hr Vasopressin 50 units/ Sodium (Chloride) 100 mls @ 4 mls/hr IVPB ASDIR [facility]; Protocol Last Admin: 07/02/19 21:36 Dose: Not Given Potassium Phosphate 30 mm/ (Sodium Chloride) 510 mls @ 62.5 mls/hr IVPB ONCE ONE Stop: 07/03/19 21:34 Insulin Aspart (Novolog Vial Sliding Scale -) 1 vial SQ ACHS [facility]; Protocol Last Admin: 07/03/19 11:00 Dose: Not Given Mupirocin (Bactroban Ointment (For Decolonization) -) 1 applic NS BID [facility] Stop: 07/07/19 09:59 Last Admin: 07/03/19 09:39 Dose: 1 applic - Objective Vital Signs: Vital Signs Temperature 98.7 F 07/03/19 08:00 Pulse Rate 97 H 07/03/19 08:00 Respiratory Rate 20 07/03/19 08:00 Blood Pressure 103/66 07/03/19 08:00 O2 Sat by Pulse Oximetry (%) 97 07/03/19 16:19 Constitutional: Yes: No Distress Eyes: Yes: Conjunctiva Clear HENT: Yes: Atraumatic Cardiovascular: Yes: Regular Rate and Rhythm Respiratory: Yes: Regular, Diminished, On Nasal O2 Gastrointestinal: Yes: Normal Bowel Sounds, Soft, Other (G tube) Integumentary: Yes: Other (G tube stoma with purulent drainage) Neurological: Yes: Alert Psychiatric: Yes: Alert Labs: CBC, BMP 07/03/19 06:00 07/03/19 06:00 Problem List - Problems (1) Infection of PEG site Assessment/Plan: -cleanse area with Betadine daily -daily dressing change -Vancomycin and Zosyn Code(s): K94.22 - GASTROSTOMY INFECTION
[2019-07-03] MEDS: NOREPINEPHRINE BITARTRATE 8,000 MCG in DEXTROSE 5%-WATER - 492 ML IV SCH (18:45)
[2019-07-03] MEDS: VASOPRESSIN 50 UNITS in SODIUM CHLORIDE 97.5 ML IVPB SCH (18:46)
[2019-07-03] MEDS ORDERED: PT OWN MED DRAWER 7, Y5N ONE (18:48)
[2019-07-03] MEDS: CHLORHEXIDINE GLUCONATE 4% CLEANSER FOR DECOLONIZATION TP SCH (21:50)
--- NOTE | 2019-07-03 22:04 | PN ---
Progress Note (short form) - Note Progress Note: Pt was seen earlier today case was discussed with resident team/ icu attending more awake feels ok left ij - placed Vital Signs Temp 97.4 F L 07/03/19 18:00 Pulse 100 H 07/03/19 16:00 Resp 21 H 07/03/19 16:00 BP 112/70 07/03/19 16:00 Pulse Ox 97 07/03/19 16:19 Intake & Output 07/02/19 07/03/19 07/03/19 23:59 11:59 23:59 Intake Total 994 194 390 Output Total 3350 0 Balance -2356 194 390 Weight 250 lb 0.067 oz 225 lb Intake: IV 644 144 90 Levophed - 8,000 Mcg In 144 144 90 D5w - 492 ml @ 0.03 MCG/ KG/MIN 12.75 mls/hr IV ASDIR [facility]ONAL[facility] Rx#:[id number] Normal Saline - 250 ml @ 500 3000 mls/hr IV PRN PRN Rx #:[id number] IVPB 50 300 Packed Cells 350 Output: Urine 0 0 Hopkins 0 0 Fluid Removed, 3350 Hemodialysis Other: Voiding Method Indwelling Catheter Indwelling Catheter Bowel Movement Yes Yes Yes # Bowel Movements 1 Height 5 ft 8 in 5 ft 8 in Body Mass Index (BMI) 38.0 34.2 Weight Measurement Method Built in [facility] Active Medications Aspirin (Ecotrin -) 81 mg PO DAILY [facility] Last Admin: 07/03/19 09:40 Dose: Not Given Chlorhexidine Gluconate (Hibiclens For Decolonization -) 1 applic TP HS [facility] Last Admin: 07/03/19 21:50 Dose: 1 applic Piperacillin Sod/Tazobactam (Sod 2.25 gm/ Dextrose) 50 mls @ 100 mls/hr IVPB Q8H-IV [facility]; Protocol Last Admin: 07/03/19 18:44 Dose: 100 mls/hr Norepinephrine Bitartrate 8, (000 mcg/ Dextrose) 500 mls @ 12.75 mls/hr IV ASDIR [facility]; Protocol Last Admin: 07/03/19 18:45 Dose: Not Given Vasopressin 50 units/ Sodium (Chloride) 100 mls @ 4 mls/hr IVPB ASDIR [facility]; Protocol Last Admin: 07/03/19 18:46 Dose: Not Given Insulin Aspart (Novolog Vial Sliding Scale -) 1 vial SQ ACHS [facility]; Protocol Last Admin: 07/03/19 18:43 Dose: Not Given Mupirocin (Bactroban Ointment (For Decolonization) -) 1 applic NS BID [facility] Stop: 07/07/19 09:59 Last Admin: 07/03/19 21:50 Dose: 1 applic CBC, BMP 07/03/19 06:00 07/03/19 06:00 Microbiology 07/01/19 13:19 Blood Culture - Preliminary Blood - Peripheral Venous NO GROWTH OBTAINED AFTER 48 HOURS, INCUBATION TO CONTINUE FOR 3 DAYS. 07/01/19 13:19 Blood Culture - Preliminary Blood - Peripheral Venous Staphylococcus Coagulase Neg 07/01/19 10:45 Blood Culture - Preliminary Blood - Bradley Cath NO GROWTH OBTAINED AFTER 24 HOURS, INCUBATION TO CONTINUE FOR 4 DAYS. Physical Exam. Constitutional: Yes: looks better. Eyes: Yes: Conjunctiva Clear, Neck: Yes: Supple. left IJ + Cardiovascular: Yes: Regular Rate and Rhythm Respiratory: Yes: Diminished Gastrointestinal: Yes: Soft, Other ( gube-- surrounding area reddened) Edema: LLE: 1+, RLE: 1+ Neurological: Yes: Other (awake) Assessment/Plan ASSESSMENT/PLAN: Septic Shock Acute toxic metabolic encephalopathy ESRD--On HD HTN HLD CHF COPD Gout Bipolar Disorder Schizophrenia Better continue present care will follow Problem List - Problems (1) Sepsis associated hypotension Code(s): A41.9 - SEPSIS, UNSPECIFIED ORGANISM; I95.9 - HYPOTENSION, UNSPECIFIED (2) ESRD (end stage renal disease) on dialysis Code(s): N18.6 - END STAGE RENAL DISEASE; Z99.2 - DEPENDENCE ON RENAL DIALYSIS (3) Septic shock Code(s): A41.9 - SEPSIS, UNSPECIFIED ORGANISM; R65.21 - SEVERE SEPSIS WITH SEPTIC SHOCK (4) Anemia Code(s): D64.9 - ANEMIA, UNSPECIFIED (5) Bipolar 1 disorder Code(s): F31.9 - BIPOLAR DISORDER, UNSPECIFIED (6) Morbid (severe) obesity due to excess calories Code(s): E66.01 - MORBID (SEVERE) OBESITY DUE TO EXCESS CALORIES (7) MOLLY (obstructive sleep apnea) Code(s): G47.33 - OBSTRUCTIVE SLEEP APNEA (ADULT) (PEDIATRIC) (8) Type 2 diabetes mellitus Code(s): E11.9 - TYPE 2 DIABETES MELLITUS WITHOUT COMPLICATIONS Qualifiers: Diabetes mellitus [facility] insulin use: unspecified [facility] insulin use status Diabetes mellitus complication status: with unspecified complications
[2019-07-04] MEDS ORDERED: DEXTROSE 5%-WATER - 50 ML IVPB ONE ×3 (00:57→17:02)
[2019-07-04] MEDS ORDERED: PIPERACILLIN/TAZOBACTAM 2.25 GM VIAL IVPB ONE ×3 (00:57→17:02)
[2019-07-04] MEDS: PIPERACILLIN/TAZOB 2.25 GM 2.25 GM in DEXTROSE 5%-WATER - 50 ML IVPB SCH ×3 (01:39→17:04)
[2019-07-04 06:50] LABS: BASO % 1.1 % (0-2.0); EOS % 2.6 % (0-4.5); HEMATOCRIT 24.8 % (35.4-49); HEMOGLOBIN 8.3 GM/dL (11.7-16.9); LYMPH % 5.6 % (8-40); MCH 27.4 pg (25.7-33.7); MCHC 33.7 g/dl (32.0-35.9); MEAN CELL VOLUME 81.3 fl (80-96); MEAN PLT VOLUME 7.7 fl (7.5-11.1); MONO % 17.5 % (3.8-10.2); NEUT % 73.2 % (42.8-82.8); PLATELET COUNT 381 K/MM3 (134-434); RBC 3.04 M/mm3 (4.00-5.60); RDW 17.5 % (11.9-15.9); WHITE BLOOD COUNT 10.4 K/mm3 (4.0-10.0)
[2019-07-04] MEDS: INSULIN SLIDING SCALE (NOVOLOG) 1 VIAL SQ SCH ×3 (06:59→16:59)
[2019-07-04 07:07] LABS: INR 1.35 (0.83-1.09)
[2019-07-04 07:10] LABS: ACTIVATED PTT 19.6 SECONDS (25.2-36.5)
[2019-07-04 07:30] LABS: ALBUMIN 1.6 g/dl (3.4-5.0); BILIRUBIN,TOTAL 0.6 mg/dL (0.2-1); BLOOD UREA NITROGEN 50.7 mg/dL (7-18); CALCIUM 8.3 mg/dL (8.5-10.1); CREATININE 3.5 mg/dL (0.55-1.3); MAGNESIUM 1.8 mg/dL (1.8-2.4); PHOSPHOROUS 3.7 mg/dL (2.5-4.9); POTASSIUM 3.5 mmol/L (3.5-5.1); TOT PROT 6.2 g/dl (6.4-8.2)
--- NOTE | 2019-07-04 08:21 | CONSULT ---
- Consultation REQUESTING PROVIDER: CONSULT REQUEST: We have been asked to surgically evaluate this patient for Leg ulcers and sacral ulcer. PCP:Earnestine Shah HISTORY OF PRESENT ILLNESS: 59yo M was consulted for b/l ankle ulcers and sacral ulcers. Pt is awake, but non verbal to questions. Pt was seen previously by vascular team for buttock abscess but refused surgical treatment. Due to pts nonverbal status and lack of information in chart it is unknown how long pt has had current ankle ulcers. PMHx: esrd on HD via PC, htn, hld, bipolar d/o, schizophrenia, and non compliance Home Medications Medication Instructions Recorded Acetaminophen [Tylenol] 650 mg PO ASDIR 03/08/19 Allopurinol [Zyloprim -] 100 mg PO DAILY 03/08/19 Aripiprazole [Abilify] 10 mg PO DAILY 03/08/19 Atorvastatin Ca [Lipitor] 40 mg PO HS 03/08/19 Carvedilol 6.25 mg PO BID 03/08/19 Zinc Sulfate 220 mg PO DAILY 03/08/19 Collagenase Clostridium Hist. 1 applic TP BID 07/01/19 [Santyl -] Folic Acid 1 mg PO DAILY 07/01/19 Folic Acid/Vit B Complex and C 1 each PO DAILY 07/01/19 [Dialyvite Tablet] Midodrine HCl 2.5 mg PO TID 07/01/19 Omeprazole 20 mg PO DAILY 07/01/19 Ondansetron HCl 4 mg PO TID 07/01/19 Allergies Allergy/AdvReac Type Severity Reaction Status Date / Time No Known Allergies Allergy Verified 07/01/19 12:38 PHYSICAL EXAM: GENERAL: Awake, alert, reacts to verbal stimuli HEAD: Normal with no signs of trauma. EYES: PERRL, sclera anicteric, conjunctiva clear. NECK: Normal ROM, supple without lymphadenopathy, JVD, or masses. BACK: 2 x 2 cm Stage 2 sacral ulcer Lt buttock, no erythema or discharge. LOWER EXTREMITIES: 2+ pulses, warm, well-perfused. No calf tenderness. +2 edema Rt>Lt, Rt ankle 2 x 2cm ulcer on lateral maleolus with fibrinous tissue and serous drainage. Lt ankle shows 2cm x 1 cm DPI on lateral maleolus, no drainage or erythema SKIN: Warm, dry, normal turgor, no rashes or lesions noted. Vital Signs Temperature 97.6 F 07/04/19 02:00 Pulse Rate 107 H 07/04/19 04:00 Respiratory Rate 22 H 07/04/19 04:00 Blood Pressure 128/86 07/04/19 04:00 O2 Sat by Pulse Oximetry (%) 99 07/04/19 08:19 Lab Results WBC 10.4 K/mm3 (4.0-10.0) H 07/04/19 05:50 RBC 3.04 M/mm3 (4.00-5.60) L 07/04/19 05:50 Hgb 8.3 GM/dL (11.7-16.9) L 07/04/19 05:50 Hct 24.8 % (35.4-49) L 07/04/19 05:50 MCV 81.3 fl (80-96) 07/04/19 05:50 MCHC 33.7 g/dl (32.0-35.9) 07/04/19 05:50 RDW 17.5 % (11.9-15.9) H 07/04/19 05:50 Plt Count 381 K/MM3 (134-434) 07/04/19 05:50 Sodium 137 mmol/L (136-145) 07/04/19 05:50 Potassium 3.5 mmol/L (3.5-5.1) 07/04/19 05:50 Chloride 101 mmol/L (98-107) 07/04/19 05:50 Carbon Dioxide 26 mmol/L (21-32) 07/04/19 05:50 Anion Gap 11 MMOL/L (8-16) 07/04/19 05:50 BUN 50.7 mg/dL (7-18) H 07/04/19 05:50 Creatinine 3.5 mg/dL (0.55-1.3) H 07/04/19 05:50 Random Glucose 74 mg/dL (74-106) 07/04/19 05:50 Calcium 8.3 mg/dL (8.5-10.1) L 07/04/19 05:50 Blood Type A POSITIVE 07/01/19 16:10 Antibody Screen Negative 07/01/19 16:10 INR 1.35 (0.83-1.09) H 07/04/19 05:50 Problem List - Problems (1) Venous stasis ulcers of both lower extremities Assessment/Plan: Plan -would place santyl and compression dressing on RLE, and dry dressing Lt ankle -ankle roll to elevate ankles relieve pressure. Code(s): I83.019 - VARICOSE VEINS OF RIGHT LOWER EXTREMITY W ULCER OF UNSP SITE ; I83.029 - VARICOSE VEINS OF LEFT LOWER EXTREMITY W ULCER OF UNSP SITE; L97.919 - NON-PRS CHRONIC ULC UNSP PRT OF R LOW LEG W UNSP SEVERITY; L97.929 - NON-PRS CHRONIC ULC UNSP PRT OF L LOW LEG W UNSP SEVERITY (2) Sacral decubitus ulcer, stage II Assessment/Plan: Plan -continue optifoam dressing -frequent bed turning -consider air mattress if jail nonambulatory Pt should follow up with Dr. Argueta in wound care clinic as outpatient, please contact vascular if any changes. Code(s): L89.152 - PRESSURE ULCER OF SACRAL REGION, STAGE 2
[2019-07-04] MEDS ORDERED: SODIUM CHLORIDE 250 ML IV PRN ×2 (08:36→22:32)
--- NOTE | 2019-07-04 08:53 | PN ---
Physical Exam: SUBJECTIVE: Patient seen and examined at bedside. pt states no acute complaints. pt denies pain. pt is laying comfortably with NC. off pressors OBJECTIVE: Vital Signs Period Temp Pulse Resp BP Sys/Castillo Pulse Ox Last 24 Hr 97.4 F-98.7 F 100-115 20-28 94-128/61-86 96-100 GENERAL: The patient is awake, alert, and fully oriented, in no acute distress. LUNGS: Breath sounds equal, clear to auscultation bilaterally, no accessory muscle use. HEART: Regular rate and rhythm, S1, S2 ABDOMEN: Soft, nontender, nondistended, normoactive bowel sounds, no guarding. G tube in place EXTREMITIES: 2+ pulses, warm, well-perfused, no edema. b/l LE wounds Laboratory Results 07/04/19 07/04/19 07/04/19 05:50 05:50 05:50 WBC 10.4 H RBC 3.04 L Hgb 8.3 L Hct 24.8 L MCV 81.3 MCH 27.4 MCHC 33.7 RDW 17.5 H Plt Count 381 MPV 7.7 Absolute Neuts (auto) 7.6 Neutrophils % 73.2 Neutrophils % (Manual) Band Neutrophils % Lymphocytes % 5.6 L D Lymphocytes % (Manual) Monocytes % 17.5 H Monocytes % (Manual) Eosinophils % 2.6 Eosinophils % (Manual) Basophils % 1.1 Basophils % (Manual) Myelocytes % (Man) Promyelocytes % (Man) Blast Cells % (Manual) Nucleated RBC % 0 Metamyelocytes Hypochromia Platelet Estimate Polychromasia Poikilocytosis Anisocytosis Microcytosis Macrocytosis PT with INR 16.00 H INR 1.35 H PTT (Actin FS) 19.6 L Sodium 137 Potassium 3.5 Chloride 101 Carbon Dioxide 26 Anion Gap 11 BUN 50.7 H Creatinine 3.5 H Est GFR (CKD-EPI)AfAm 21.20 Est GFR (CKD-EPI)NonAf 18.29 POC Glucometer Random Glucose 74 Calcium 8.3 L Phosphorus 3.7 Magnesium 1.8 Total Bilirubin 0.6 AST 65 H ALT 102 H Alkaline Phosphatase 154 H Total Protein 6.2 L Albumin 1.6 L Random Vancomycin Hep Bs Antigen Hep C Ab Diagnostic Current Medications Aspirin (Ecotrin -) 81 mg PO DAILY [facility] Last Admin: 07/03/19 09:40 Dose: Not Given Chlorhexidine Gluconate (Hibiclens For Decolonization -) 1 applic TP HS [facility] Last Admin: 07/03/19 21:50 Dose: 1 applic Epoetin Shawn (Epogen -) 10,000 unit IVPUSH ONCE ONE Stop: 07/04/19 08:37 Piperacillin Sod/Tazobactam (Sod 2.25 gm/ Dextrose) 50 mls @ 100 mls/hr IVPB Q8H-IV [facility]; Protocol Last Admin: 07/04/19 01:39 Dose: 100 mls/hr Norepinephrine Bitartrate 8, (000 mcg/ Dextrose) 500 mls @ 12.75 mls/hr IV ASDIR [facility]; Protocol Last Admin: 07/03/19 18:45 Dose: Not Given Vasopressin 50 units/ Sodium (Chloride) 100 mls @ 4 mls/hr IVPB [facility]; Protocol Last Admin: 07/03/19 18:46 Dose: Not Given Sodium Chloride (Normal Saline -) 250 mls @ 3,000 mls/hr IV PRN PRN PRN Reason: Hypotension during Dialysis Stop: 07/05/19 08:36 Insulin Aspart (Novolog Vial Sliding Scale -) 1 vial SQ ACHS [facility]; Protocol Last Admin: 07/04/19 06:59 Dose: Not Given Mupirocin (Bactroban Ointment (For Decolonization) -) 1 applic NS BID [facility] Stop: 07/07/19 09:59 Last Admin: 07/03/19 21:50 Dose: 1 applic Microbiology 07/01/19 10:45 Blood - Bradley Cath Blood Culture - Preliminary NO GROWTH OBTAINED AFTER 48 HOURS, INCUBATION TO CONTINUE FOR 3 DAYS. 07/01/19 13:19 Blood - Peripheral Venous Blood Culture - Preliminary NO GROWTH OBTAINED AFTER 48 HOURS, INCUBATION TO CONTINUE FOR 3 DAYS. 07/01/19 13:19 Blood - Peripheral Venous Blood Culture - Preliminary Staphylococcus Coagulase Neg 07/01/19 14:07 Urine - Urine - Catheterized Urine Culture - Final NO GROWTH OBTAINED ASSESSMENT/PLAN: 59 yo morbidly w/ PMH of ESRD (, , ), obesity, HTN, HLD, CHF, COPD, gout, Bipolar Disorder, and schizophrenia presented from [facility] for fever. Pt is admitted to ICU for severe sepsis 2/2 pneumonia vs GI source. Neuro: Toxic metabolic encephalopathy vs Stroke -Awake and alert. minimally verbal but responsive to commands. need to confirm baseline. will contact [facility] for next of kin information -preliminary CT head findings : Low-density seen in the left parietal and occipital lobe consistent with infarction, probably acute or subacute in age. -neuro recs appreciated -MRI when stable and ASA 81mg. Cardio: septic shock, HLD, HFpEF -continue to monitor vitals -central line in place (07/03)-will remove line today, pt has been off Levo x1d -cardio recs appreciated -Echo 10/2018: LVEF nml, mild LVH, trace TR Pulm: Acute respiratory failure, COPD -saturating well on NC - CT shows Moderate to large left and moderate right pleural effusions with overlying atelectasis -On admission, pt's work of breathing increased and pt began to desaturate. pt was started on BIPAP and saturations improved. ID: Severe Sepsis 2/2 pneumonia, UTI, ulcers on b/l LE's -rpt lactate 2.0 -leukocytosis 18.5 - blood cultures:staph coag, may be contaminant. will rpt (+) UA - continue renal dose zosyn, follow vanco random level. GI -PEG tube continuously becomes dislodged ( x2 in ED ), Dr. Pritchett replaced the tubing to help drain the purulent fluid. -GI recs appreciated -Elevated LFT's, hold statin at this time. -CT: Diffuse mild thickened appearance of the colon may be related to under distention versus mild colitis -will eval for abscess/ infiltration around PEG -cleanse area with Betadine daily -daily dressing change Nephro: ESRD -nephro recs appreciated -dialysis today Anemia: acute vs chronic -Hgb: 7.1, transfused pt with one bag of prbc today. -baseline: 8-9 MSK: b/l venous stasis ulcer, sacral decubitus ulcer -would place santyl and compression dressing on RLE, and dry dressing Lt ankle -ankle roll to elevate ankles relieve pressure. - consider air mattress if not ambulatory -outpt f/u at wound clinic F/E/N -electrolytes repleted as needed -continue to hold feeds through G tube until approved by GI Dispo: transfer to medicine Visit type - Emergency Visit Emergency Visit: No - New Patient This patient is new to me today: No - Critical Care Critical Care patient: Yes Total Critical Care Time (in minutes): 38 Critical Care Statement: The care of this patient involved high complexity decision making to prevent further life threatening deterioration of the patient 's condition and/or to evaluate & treat vital organ system(s) failure or risk of failure. ATTENDING PHYSICIAN STATEMENT I saw and evaluated the patient. I reviewed the resident's note and discussed the case with the resident. I agree with the resident's findings and plan as documented. SUBJECTIVE: OBJECTIVE: ASSESSMENT AND PLAN:
[2019-07-04] MEDS ORDERED: EPOETIN ALFA 10,000 UNIT/1 ML VIAL IVPUSH ONE (09:30)
[2019-07-04] MEDS ORDERED: COLLAGENASE CLOSTRIDIUM HIST. 30 GRAMS TUBE TP SCH (10:00)
[2019-07-04] MEDS ORDERED: PT OWN MED DRAWER 7, Y5N ONE (10:05)
[2019-07-04] MEDS: MUPIROCIN 2% TOPICAL OINTMENT FOR DECOLONIZATION NS SCH ×2 (10:13→22:17)
[2019-07-04] MEDS: ASPIRIN COATED 81 MG TABLET.EC PO SCH (10:13)
--- NOTE | 2019-07-04 10:30 | PN ---
Progress Note (short form) - Note Progress Note: Events noted pt is off pressor support since last night awake and not in distress currently being dialysed Vital Signs - 24 hr 07/03/19 07/03/19 07/03/19 12:00 14:00 16:00 Temperature 98.4 F 98.4 F 98.2 F Pulse Rate 103 H 101 H 100 H Respiratory 24 H 22 H 21 H Rate Blood Pressure 107/79 104/78 112/70 O2 Sat by Pulse Oximetry (%) 07/03/19 07/03/19 07/03/19 16: 18:00 20:00 Temperature 97.4 F L Pulse Rate 115 H Respiratory 28 H Rate Blood Pressure 109/78 O2 Sat by Pulse 97 Oximetry (%) 07/03/19 07/03/19 07/04/19 21:00 22:00 00:00 Temperature Pulse Rate 115 H 110 H Respiratory 23 H 20 Rate Blood Pressure 121/68 111/86 O2 Sat by Pulse 100 Oximetry (%) 07/04/19 07/04/19 07/04/19 00:13 02:00 04:00 Temperature 97.6 F Pulse Rate 111 H 107 H Respiratory 20 22 H Rate Blood Pressure 109/79 128/86 O2 Sat by Pulse 100 Oximetry (%) 07/04/19 07/04/19 07/04/19 06:00 08:00 08:19 Temperature 97.9 F Pulse Rate 106 H 106 H Respiratory 20 22 H Rate Blood Pressure 120/84 118/73 O2 Sat by Pulse 99 Oximetry (%) 07/04/19 07/04/19 07/04/19 09:45 09:50 10:00 Temperature 98.5 F 97.1 F L Pulse Rate 113 H 112 H 114 H Respiratory 20 21 H 24 H Rate Blood Pressure 118/81 117/75 112/71 O2 Sat by Pulse Oximetry (%) Current Medications Generic Name Dose Route Start Last Admin Trade Name Freq PRN Reason Stop Dose Admin Aspirin 81 mg 07/02/19 11:30 07/04/19 10:13 Ecotrin - PO 81 mg DAILY [facility] Administration Chlorhexidine Gluconate 1 applic 07/02/19 22:00 07/03/19 21:50 Hibiclens For Decolonization - TP 1 applic HS [facility] Administration Collagenase 1 applic 07/04/19 10:00 07/04/19 10:12 Santyl - TP 1 applic DAILY [facility] Administration Protocol Piperacillin Sod/Tazobactam 50 mls @ 100 mls/hr 07/02/19 18:00 07/04/19 10:12 Sod 2.25 gm/ Dextrose IVPB 100 mls/hr Q8H-IV [facility] Administration Protocol Norepinephrine Bitartrate 8, 500 mls @ 12.75 mls/hr 07/02/19 18:15 07/03/19 18:45 000 mcg/ Dextrose IV Not Given ASDIR [facility] Protocol 0.03 MCG/KG/MIN Vasopressin 50 units/ Sodium 100 mls @ 4 mls/hr 07/02/19 18:15 07/03/19 18:46 Chloride IVPB Not Given ASDIR [facility] Protocol 2 UNITS/HR Sodium Chloride 250 mls @ 3,000 mls/hr 07/04/19 08:36 Normal Saline - IV 07/05/19 08:36 PRN PRN Hypotension during Dialysis Insulin Aspart 1 vial 07/02/19 07:00 07/04/19 06:59 Novolog Vial Sliding Scale - SQ Not Given ACHS [facility] Protocol Mupirocin 1 applic 07/02/19 10:00 07/04/19 10:13 Bactroban Ointment (For Decolonization) - NS 07/07/19 09:59 1 applic BID [facility] Administration Laboratory Results - last 24 hr 07/02/19 07/03/19 07/03/19 15:00 06:00 10:05 WBC RBC Hgb Hct MCV MCH MCHC RDW Plt Count MPV Absolute Neuts (auto) Neutrophils % Neutrophils % (Manual) 74.0 Band Neutrophils % 1.0 Lymphocytes % Lymphocytes % (Manual) 8.0 Monocytes % Monocytes % (Manual) 13 H Eosinophils % Eosinophils % (Manual) 3.0 Basophils % Basophils % (Manual) 0.0 Myelocytes % (Man) 0 D Promyelocytes % (Man) 0 Blast Cells % (Manual) 0 Nucleated RBC % Metamyelocytes 1 D Hypochromia 0 Platelet Estimate Normal Polychromasia 0 Poikilocytosis 0 Anisocytosis 1+ Microcytosis 1+ Macrocytosis 0 PT with INR INR PTT (Actin FS) Sodium Potassium Chloride Carbon Dioxide Anion Gap BUN Creatinine Est GFR (CKD-EPI)AfAm Est GFR (CKD-EPI)NonAf POC Glucometer Random Glucose Calcium Phosphorus Magnesium Total Bilirubin AST ALT Alkaline Phosphatase Total Protein Albumin Random Vancomycin 20.3 Hep Bs Antigen Negative Hep C Ab Diagnostic 0.2 07/03/19 07/03/19 07/03/19 11:50 18:41 22:14 WBC RBC Hgb Hct MCV MCH MCHC RDW Plt Count MPV Absolute Neuts (auto) Neutrophils % Neutrophils % (Manual) Band Neutrophils % Lymphocytes % Lymphocytes % (Manual) Monocytes % Monocytes % (Manual) Eosinophils % Eosinophils % (Manual) Basophils % Basophils % (Manual) Myelocytes % (Man) Promyelocytes % (Man) Blast Cells % (Manual) Nucleated RBC % Metamyelocytes Hypochromia Platelet Estimate Polychromasia Poikilocytosis Anisocytosis Microcytosis Macrocytosis PT with INR INR PTT (Actin FS) Sodium Potassium Chloride Carbon Dioxide Anion Gap BUN Creatinine Est GFR (CKD-EPI)AfAm Est GFR (CKD-EPI)NonAf POC Glucometer 77 73 70 Random Glucose Calcium Phosphorus Magnesium Total Bilirubin AST ALT Alkaline Phosphatase Total Protein Albumin Random Vancomycin Hep Bs Antigen Hep C Ab Diagnostic 07/04/19 07/04/19 07/04/19 05:50 05:50 05:50 WBC 10.4 H RBC 3.04 L Hgb 8.3 L Hct 24.8 L MCV 81.3 MCH 27.4 MCHC 33.7 RDW 17.5 H Plt Count 381 MPV 7.7 Absolute Neuts (auto) 7.6 Neutrophils % 73.2 Neutrophils % (Manual) Band Neutrophils % Lymphocytes % 5.6 L D Lymphocytes % (Manual) Monocytes % 17.5 H Monocytes % (Manual) Eosinophils % 2.6 Eosinophils % (Manual) Basophils % 1.1 Basophils % (Manual) Myelocytes % (Man) Promyelocytes % (Man) Blast Cells % (Manual) Nucleated RBC % 0 Metamyelocytes Hypochromia Platelet Estimate Polychromasia Poikilocytosis Anisocytosis Microcytosis Macrocytosis PT with INR 16.00 H INR 1.35 H PTT (Actin FS) 19.6 L Sodium 137 Potassium 3.5 Chloride 101 Carbon Dioxide 26 Anion Gap 11 BUN 50.7 H Creatinine 3.5 H Est GFR (CKD-EPI)AfAm 21.20 Est GFR (CKD-EPI)NonAf 18.29 POC Glucometer Random Glucose 74 Calcium 8.3 L Phosphorus 3.7 Magnesium 1.8 Total Bilirubin 0.6 AST 65 H ALT 102 H Alkaline Phosphatase 154 H Total Protein 6.2 L Albumin 1.6 L Random Vancomycin Hep Bs Antigen Hep C Ab Diagnostic 07/04/19 07/04/19 06:55 08:15 WBC RBC Hgb Hct MCV MCH MCHC RDW Plt Count MPV Absolute Neuts (auto) Neutrophils % Neutrophils % (Manual) Band Neutrophils % Lymphocytes % Lymphocytes % (Manual) Monocytes % Monocytes % (Manual) Eosinophils % Eosinophils % (Manual) Basophils % Basophils % (Manual) Myelocytes % (Man) Promyelocytes % (Man) Blast Cells % (Manual) Nucleated RBC % Metamyelocytes Hypochromia Platelet Estimate Polychromasia Poikilocytosis Anisocytosis Microcytosis Macrocytosis PT with INR INR PTT (Actin FS) Sodium Potassium Chloride Carbon Dioxide Anion Gap BUN Creatinine Est GFR (CKD-EPI)AfAm Est GFR (CKD-EPI)NonAf POC Glucometer 77 Random Glucose Calcium Phosphorus Magnesium Total Bilirubin AST ALT Alkaline Phosphatase Total Protein Albumin Random Vancomycin 18.7 Hep Bs Antigen Hep C Ab Diagnostic Physical Exam. Constitutional: Yes: looks better. Eyes: Yes: Conjunctiva Clear, Neck: Yes: Supple. left IJ + Cardiovascular: Yes: Regular Rate and Rhythm Respiratory: Yes: Diminished Gastrointestinal: Yes: Soft, Other ( gtube+),NT Edema: LLE: 1+, RLE: 1+ rt ankle wound + Neurological: Yes: Other (awake) Assessment/Plan ASSESSMENT/PLAN: Septic Shock Acute toxic metabolic encephalopathy ESRD--On HD HTN HLD CHF COPD Gout Bipolar Disorder Schizophrenia off pressors on iv antibiotics feeding on hold-- GI follow up per ICU resident spoke with ICU team clinically improving Problem List - Problems (1) ESRD (end stage renal disease) on dialysis Code(s): N18.6 - END STAGE RENAL DISEASE; Z99.2 - DEPENDENCE ON RENAL DIALYSIS (2) Elevated LFTs Code(s): R94.5 - ABNORMAL RESULTS OF LIVER FUNCTION STUDIES (3) Infection of PEG site Code(s): K94.22 - GASTROSTOMY INFECTION (4) Schizo affective schizophrenia Code(s): F25.0 - SCHIZOAFFECTIVE DISORDER, BIPOLAR TYPE (5) Sepsis Code(s): A41.9 - SEPSIS, UNSPECIFIED ORGANISM Qualifiers: Sepsis type: sepsis due to unspecified organism Sepsis acute organ dysfunction status: unspecified Qualified Code(s): A41.9 - Sepsis, unspecified organism (6) Septic shock Code(s): A41.9 - SEPSIS, UNSPECIFIED ORGANISM; R65.21 - SEVERE SEPSIS WITH SEPTIC SHOCK
[2019-07-04 10:32] LABS: ANISOCYTOSIS 1+; MACROCYTOSIS 0; PLATELET ESTIMATE NORMAL
--- NOTE | 2019-07-04 11:23 | PN ---
Teaching Attending Note Name of Resident: Becky Swenson ATTENDING PHYSICIAN STATEMENT I saw and evaluated the patient. I reviewed the resident's note and discussed the case with the resident. I agree with the resident's findings and plan as documented. SUBJECTIVE: Pt seen and examined in the ICU. Off pressors. No fevers recorded. OBJECTIVE: Vital Signs Period Temp Pulse Resp BP Sys/Castillo Pulse Ox Last 24 Hr 97.1 F-98.5 F 100-115 20-28 104-128/68-86 97-100 Intake & Output 07/01/19 07/02/19 07/03/19 07/04/19 23:59 23:59 23:59 23:59 Intake Total 1622 584 Output Total 3350 0 Balance -1728 584 Weight 101.877 kg 113.4 kg 102.058 kg 102.421 kg Gen: NAD at rest Heart: RRR Lung: decreased breath sounds at the bases Abd: soft, nontender Ext: no edema CBC, BMP 07/04/19 05:50 07/04/19 05:50 Active Medications Aspirin (Ecotrin -) 81 mg PO DAILY [facility] Last Admin: 07/04/19 10:13 Dose: 81 mg Chlorhexidine Gluconate (Hibiclens For Decolonization -) 1 applic TP HS [facility] Last Admin: 07/03/19 21:50 Dose: 1 applic Collagenase (Santyl -) 1 applic TP DAILY [facility]; Protocol Last Admin: 07/04/19 10:12 Dose: 1 applic Heparin Sodium (Porcine) (Heparin -) 5,000 unit SQ TID RONALD Piperacillin Sod/Tazobactam (Sod 2.25 gm/ Dextrose) 50 mls @ 100 mls/hr IVPB Q8H-IV [facility]; Protocol Last Admin: 07/04/19 10:12 Dose: 100 mls/hr Norepinephrine Bitartrate 8, (000 mcg/ Dextrose) 500 mls @ 12.75 mls/hr IV ASDIR [facility]; Protocol Last Admin: 07/03/19 18:45 Dose: Not Given Vasopressin 50 units/ Sodium (Chloride) 100 mls @ 4 mls/hr IVPB ASDIR [facility]; Protocol Last Admin: 07/03/19 18:46 Dose: Not Given Sodium Chloride (Normal Saline -) 250 mls @ 3,000 mls/hr IV PRN PRN PRN Reason: Hypotension during Dialysis Stop: 07/05/19 08:36 Insulin Aspart (Novolog Vial Sliding Scale -) 1 vial SQ ACHS [facility]; Protocol Last Admin: 07/04/19 06:59 Dose: Not Given Mupirocin (Bactroban Ointment (For Decolonization) -) 1 applic NS BID [facility] Stop: 07/07/19 09:59 Last Admin: 07/04/19 10:13 Dose: 1 applic Nystatin (Nystatin Oral Suspension -) 500,000 units PO Q6HPO [facility] ASSESSMENT AND PLAN: Infected Decubitus Ulcers r/o Pneumonia r/o G tube site Infection Gram Positive Bacteremia Septic Shock Lactic Acidosis ESRD on HD COPD LV Diastolic Dysfunction HTN Hyperlipidemia Bipolar Disorder Schizophrenia Anemia - continue antibiotics - f/u cultures - monitor off pressors, maintain MAP >65 - HD per renal - O2 to keep SpO2 >90% - wound care - DVT prophylaxis - can monitor on floor
--- NOTE | 2019-07-04 12:42 | PN ---
Progress Note, Physician History of Present Illness: AWAKE. OFFERS NO COMPLAINTS TEMPS DOWN AFEBRILE WBC IMPROVED LFTS IMPROVED BC + SCN 1 BOTTLE VANCOMYCIN LEVEL THERAPUTIC - Current Medication List Current Medications: Active Medications Aspirin (Ecotrin -) 81 mg PO DAILY [facility] Last Admin: 07/04/19 10:13 Dose: 81 mg Chlorhexidine Gluconate (Hibiclens For Decolonization -) 1 applic TP HS [facility] Last Admin: 07/03/19 21:50 Dose: 1 applic Collagenase (Santyl -) 1 applic TP DAILY [facility]; Protocol Last Admin: 07/04/19 10:12 Dose: 1 applic Heparin Sodium (Porcine) (Heparin -) 5,000 unit SQ TID RONALD Piperacillin Sod/Tazobactam (Sod 2.25 gm/ Dextrose) 50 mls @ 100 mls/hr IVPB Q8H-IV [facility]; Protocol Last Admin: 07/04/19 10:12 Dose: 100 mls/hr Norepinephrine Bitartrate 8, (000 mcg/ Dextrose) 500 mls @ 12.75 mls/hr IV ASDIR [facility]; Protocol Last Admin: 07/03/19 18:45 Dose: Not Given Vasopressin 50 units/ Sodium (Chloride) 100 mls @ 4 mls/hr IVPB ASDIR [facility]; Protocol Last Admin: 07/03/19 18:46 Dose: Not Given Sodium Chloride (Normal Saline -) 250 mls @ 3,000 mls/hr IV PRN PRN PRN Reason: Hypotension during Dialysis Stop: 07/05/19 08:36 Insulin Aspart (Novolog Vial Sliding Scale -) 1 vial SQ ACHS [facility]; Protocol Last Admin: 07/04/19 12:00 Dose: Not Given Mupirocin (Bactroban Ointment (For Decolonization) -) 1 applic NS BID [facility] Stop: 07/07/19 09:59 Last Admin: 07/04/19 10:13 Dose: 1 applic Nystatin (Nystatin Oral Suspension -) 500,000 units PO Q6HPO [facility] - Objective Vital Signs: Vital Signs Temperature 97.1 F L 07/04/19 10:00 Pulse Rate 118 H 07/04/19 12:00 Respiratory Rate 15 07/04/19 12:00 Blood Pressure 109/85 07/04/19 12:00 O2 Sat by Pulse Oximetry (%) 99 07/04/19 09:00 Constitutional: Yes: No Distress, Obese Eyes: Yes: Conjunctiva Clear Cardiovascular: Yes: Regular Rate and Rhythm, S1, S2 Respiratory: Yes: CTA Bilaterally Gastrointestinal: Yes: Normal Bowel Sounds, Soft. No: Tenderness Edema: Yes Integumentary: Yes: Other (+ B/L ANKLE ULCERS) Labs: CBC, BMP 07/04/19 05:50 07/04/19 05:50 INR, PTT INR 1.35 (0.83-1.09) H 07/04/19 05:50 Assessment/Plan SEPSIS R/O SEPTIC SHOCK IMPROVED OFF PRESSORS + BC SCN 1 BOTTLE PROBABLE CONTAMINANT ESRD FEVER/ LEUKOCYTOSIS IMPROVED CONTINUE ZOSYN VANCOMYCIN THERAPUTIC REPEAT BC PENDING
--- NOTE | 2019-07-04 13:02 | PN ---
Progress Note, Physician History of Present Illness: Pt seen and examined at bedside. He is awake and appears more comfortable today. - Current Medication List Current Medications: Active Medications Aspirin (Ecotrin -) 81 mg PO DAILY [facility] Last Admin: 07/04/19 10:13 Dose: 81 mg Chlorhexidine Gluconate (Hibiclens For Decolonization -) 1 applic TP HS [facility]AL[facility] Last Admin: 07/03/19 21:50 Dose: 1 applic Collagenase (Santyl -) 1 applic TP DAILY [facility]; Protocol Last Admin: 07/04/19 10:12 Dose: 1 applic Heparin Sodium (Porcine) (Heparin -) 5,000 unit SQ TID RONALD Piperacillin Sod/Tazobactam (Sod 2.25 gm/ Dextrose) 50 mls @ 100 mls/hr IVPB Q8H-IV [facility]; Protocol Last Admin: 07/04/19 10:12 Dose: 100 mls/hr Norepinephrine Bitartrate 8, (000 mcg/ Dextrose) 500 mls @ 12.75 mls/hr IV ASDIR [facility]; Protocol Last Admin: 07/03/19 18:45 Dose: Not Given Vasopressin 50 units/ Sodium (Chloride) 100 mls @ 4 mls/hr IVPB ASDIR [facility]; Protocol Last Admin: 07/03/19 18:46 Dose: Not Given Sodium Chloride (Normal Saline -) 250 mls @ 3,000 mls/hr IV PRN PRN PRN Reason: Hypotension during Dialysis Stop: 07/05/19 08:36 Insulin Aspart (Novolog Vial Sliding Scale -) 1 vial SQ ACHS [facility]; Protocol Last Admin: 07/04/19 12:00 Dose: Not Given Mupirocin (Bactroban Ointment (For Decolonization) -) 1 applic NS BID [facility] Stop: 07/07/19 09:59 Last Admin: 07/04/19 10:13 Dose: 1 applic Nystatin (Nystatin Oral Suspension -) 500,000 units PO Q6HPO [facility] - Objective Vital Signs: Vital Signs Temperature 97.1 F L 07/04/19 10:00 Pulse Rate 118 H 07/04/19 12:00 Respiratory Rate 15 07/04/19 12:00 Blood Pressure 109/85 07/04/19 12:00 O2 Sat by Pulse Oximetry (%) 99 07/04/19 09:00 Constitutional: Yes: Calm Eyes: Yes: Conjunctiva Clear HENT: Yes: Atraumatic Cardiovascular: Yes: Tachycardia, S1, S2 Respiratory: Yes: CTA Bilaterally Gastrointestinal: Yes: Soft, Other (peg tube in place) Genitourinary: Yes: WNL Musculoskeletal: Yes: WNL Edema: No Neurological: Yes: Confusion Labs: CBC, BMP 07/04/19 05:50 07/04/19 05:50 INR, PTT INR 1.35 (0.83-1.09) H 07/04/19 05:50 Assessment/Plan Current Medications Generic Name Dose Route Start Last Admin Trade Name Freq PRN Reason Stop Dose Admin Aspirin 81 mg 07/02/19 11:30 07/04/19 10:13 Ecotrin - PO 81 mg DAILY [facility] Administration Chlorhexidine Gluconate 1 applic 07/02/19 22:00 07/03/19 21:50 Hibiclens For Decolonization - TP 1 applic HS [facility]AL[facility] Administration Collagenase 1 applic 07/04/19 10:00 07/04/19 10:12 Santyl - TP 1 applic DAILY [facility] Administration Protocol Heparin Sodium (Porcine) 5,000 unit 07/04/19 14:00 Heparin - SQ TID [facility]ONALD Piperacillin Sod/Tazobactam 50 mls @ 100 mls/hr 07/02/19 18:00 07/04/19 10:12 Sod 2.25 gm/ Dextrose IVPB 100 mls/hr Q8H-IV [facility] Administration Protocol Norepinephrine Bitartrate 8, 500 mls @ 12.75 mls/hr 07/02/19 18:15 07/03/19 18:45 000 mcg/ Dextrose IV Not Given ASDIR RONALD Protocol 0.03 MCG/KG/MIN Vasopressin 50 units/ Sodium 100 mls @ 4 mls/hr 07/02/19 18:15 07/03/19 18:46 Chloride IVPB Not Given ASDIR RONALD Protocol 2 UNITS/HR Sodium Chloride 250 mls @ 3,000 mls/hr 07/04/19 08:36 Normal Saline - IV 07/05/19 08:36 PRN PRN Hypotension during Dialysis Insulin Aspart 1 vial 07/02/19 07:00 07/04/19 12:00 Novolog Vial Sliding Scale - SQ Not Given ACHS [facility] Protocol Mupirocin 1 applic 07/02/19 10:00 07/04/19 10:13 Bactroban Ointment (For Decolonization) - NS 07/07/19 09:59 1 applic BID [facility] Administration Nystatin 500,000 units 07/04/19 12:00 Nystatin Oral Suspension - PO Q6HPO [facility] Impression 1. ESRD 2. sepsis 3. gout 4. HTN 5. CHF 6. DM 7. hx bipolar 8. MOLLY 9. non compliance 10. bacteremia 11. lactic acidosis Plan - HD today - discussed with ICU, pt will require further abd imaging - monitor hg - cont ICU care - follow repeat cultures cultures
[2019-07-04] MEDS: NYSTATIN 500,000 UNITS/5 ML SUSPENSION PO SCH ×3 (13:08→23:19)
[2019-07-04] MEDS: HEPARIN NA (PORCINE) 5,000 UNITS/ML 1ML VIAL SQ SCH ×2 (13:09→22:25)
[2019-07-04] MEDS ORDERED: INSULIN SLIDING SCALE (NOVOLOG) 1 VIAL SQ SCH (17:00)
[2019-07-04] MEDS: DEXTROSE 5%-0.45% SALINE 1,000 ML IV SCH ×2 (17:04→22:24)
[2019-07-04] MEDS: NOREPINEPHRINE BITARTRATE 8,000 MCG in DEXTROSE 5%-WATER - 492 ML IV SCH (18:22)
[2019-07-04] MEDS: VASOPRESSIN 50 UNITS in SODIUM CHLORIDE 97.5 ML IVPB SCH (18:22)
[2019-07-04] MEDS: CHLORHEXIDINE GLUCONATE 4% CLEANSER FOR DECOLONIZATION TP SCH (22:17)
[2019-07-04] MEDS ORDERED: DEXTROSE 5%-0.45% SALINE 1,000 ML IV SCH (22:32)
[2019-07-05] MEDS ORDERED: PIPERACILLIN/TAZOBACTAM 2.25 GM VIAL IVPB ONE ×3 (01:37→16:34)
[2019-07-05] MEDS ORDERED: DEXTROSE 5%-WATER - 50 ML IVPB ONE ×3 (01:37→16:34)
[2019-07-05] MEDS: PIPERACILLIN/TAZOB 2.25 GM 2.25 GM in DEXTROSE 5%-WATER - 50 ML IVPB SCH ×3 (01:41→17:00)
[2019-07-05] MEDS: HEPARIN NA (PORCINE) 5,000 UNITS/ML 1ML VIAL SQ SCH ×3 (05:04→22:38)
[2019-07-05] MEDS: NYSTATIN 500,000 UNITS/5 ML SUSPENSION PO SCH ×3 (05:04→17:01)
[2019-07-05] MEDS: INSULIN SLIDING SCALE (NOVOLOG) 1 VIAL SQ SCH ×3 (06:02→16:32)
[2019-07-05 07:28] LABS: HEMATOCRIT 24.8 % (35.4-49); HEMOGLOBIN 8.2 GM/dL (11.7-16.9); MCH 27.1 pg (25.7-33.7); MCHC 33.2 g/dl (32.0-35.9); MEAN CELL VOLUME 81.6 fl (80-96); MEAN PLT VOLUME 7.2 fl (7.5-11.1); PLATELET COUNT 373 K/MM3 (134-434); RBC 3.04 M/mm3 (4.00-5.60); RDW 17.5 % (11.9-15.9)
[2019-07-05 07:46] LABS: ALBUMIN 1.6 g/dl (3.4-5.0); BILIRUBIN,TOTAL 0.5 mg/dL (0.2-1); BLOOD UREA NITROGEN 27.6 mg/dL (7-18); CALCIUM 8.4 mg/dL (8.5-10.1); CREATININE 2.7 mg/dL (0.55-1.3); MAGNESIUM 1.8 mg/dL (1.8-2.4); PHOSPHOROUS 2.5 mg/dL (2.5-4.9); POTASSIUM 3.3 mmol/L (3.5-5.1); TOT PROT 6.4 g/dl (6.4-8.2)
[2019-07-05] MEDS ORDERED: MUPIROCIN 2% TOPICAL OINTMENT FOR DECOLONIZATION NS SCH (10:00)
[2019-07-05] MEDS: ASPIRIN COATED 81 MG TABLET.EC PO SCH (10:43)
[2019-07-05] MEDS: COLLAGENASE CLOSTRIDIUM HIST. 30 GRAMS TUBE TP SCH (10:55)
[2019-07-05] MEDS ORDERED: SODIUM CHLORIDE 250 ML IV PRN (12:13)
--- NOTE | 2019-07-05 13:16 | PN ---
Progress Note (short form) - Note Progress Note: Events noted moving his arms Wiggling toes deconditioned no distress Vital Signs - 24 hr 07/04/19 07/04/19 07/04/19 14:00 16:00 17:23 Temperature 97.5 F L Pulse Rate 117 H 107 H Respiratory 24 H 14 Rate Blood Pressure 127/95 139/114 H O2 Sat by Pulse 95 Oximetry (%) 07/04/19 07/04/19 07/04/19 18:00 20:29 21:00 Temperature 99.2 F Pulse Rate 119 H 123 H Respiratory 21 H 20 Rate Blood Pressure 104/55 L 121/93 O2 Sat by Pulse 98 Oximetry (%) 07/04/19 07/05/19 07/05/19 22:00 06:37 10:00 Temperature 98.8 F 98.6 F 98.1 F Pulse Rate 119 H 112 H 104 H Respiratory 20 21 H 22 H Rate Blood Pressure 119/63 116/79 125/81 O2 Sat by Pulse Oximetry (%) Current Medications Generic Name Dose Route Start Last Admin Trade Name Amilcarq PRN Reason Stop Dose Admin Aspirin 81 mg 07/05/19 10:00 07/05/19 10:43 Ecotrin - PO Not Given DAILY [facility]ONAL[facility] Collagenase 1 applic 07/05/19 10:00 07/05/19 10:55 Santyl - TP 1 applic DAILY [facility] Administration Protocol Heparin Sodium (Porcine) 5,000 unit 07/05/19 06:00 07/05/19 05:04 Heparin - SQ 5,000 unit TID [facility]ONALD Administration Dextrose/Sodium Chloride 1,000 mls @ 100 mls/hr 07/04/19 22:32 07/05/19 01:41 D5-1/2ns - IV 100 mls/hr ASDIR RONALD Administration Piperacillin Sod/Tazobactam 50 mls @ 100 mls/hr 07/05/19 02:00 07/05/19 10:55 Sod 2.25 gm/ Dextrose IVPB 100 mls/hr Q8H-IV [facility] Administration Protocol Insulin Aspart 1 vial 07/05/19 07:00 07/05/19 11:08 Novolog Vial Sliding Scale - SQ Not Given TIDAC [facility] Protocol Nystatin 500,000 units 07/05/19 00:00 07/05/19 11:08 Nystatin Oral Suspension - PO Not Given Q6HPO [facility] Laboratory Results - last 24 hr 07/01/19 07/05/19 07/05/19 16:10 05:40 06:25 WBC 9.0 RBC 3.04 L Hgb 8.2 L Hct 24.8 L MCV 81.6 MCH 27.1 MCHC 33.2 RDW 17.5 H Plt Count 373 MPV 7.2 L Sodium Potassium Chloride Carbon Dioxide Anion Gap BUN Creatinine Est GFR (CKD-EPI)AfAm Est GFR (CKD-EPI)NonAf POC Glucometer 104 Random Glucose Calcium Phosphorus Magnesium Total Bilirubin AST ALT Alkaline Phosphatase Total Protein Albumin Blood Type A POSITIVE Antibody Screen Negative Crossmatch See Detail 07/05/19 07/05/19 06:25 11:06 WBC RBC Hgb Hct MCV MCH MCHC RDW Plt Count MPV Sodium 141 Potassium 3.3 L Chloride 105 Carbon Dioxide 28 Anion Gap 9 BUN 27.6 H Creatinine 2.7 H Est GFR (CKD-EPI)AfAm 29.01 Est GFR (CKD-EPI)NonAf 25.03 POC Glucometer 107 Random Glucose 107 H Calcium 8.4 L Phosphorus 2.5 Magnesium 1.8 Total Bilirubin 0.5 AST 64 H ALT 88 H Alkaline Phosphatase 144 H Total Protein 6.4 Albumin 1.6 L Blood Type Antibody Screen Crossmatch Constitutional: Yes: looks better. Eyes: Yes: Conjunctiva Clear, Neck: Yes: Supple. 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 ESRD--On HD HTN HLD CHF COPD Gout Bipolar Disorder Schizophrenia on iv antibiotics Gtube changed today-- will wait for instructions on when to use Spoke with Neurology-- pt needs MRI brain-- 2 physician consent done Hd per renal Vascular eval for wounds Problem List - Problems (1) ESRD (end stage renal disease) on dialysis Code(s): N18.6 - END STAGE RENAL DISEASE; Z99.2 - DEPENDENCE ON RENAL DIALYSIS (2) Elevated LFTs Code(s): R94.5 - ABNORMAL RESULTS OF LIVER FUNCTION STUDIES (3) Infection of PEG site Code(s): K94.22 - GASTROSTOMY INFECTION (4) Schizo affective schizophrenia Code(s): F25.0 - SCHIZOAFFECTIVE DISORDER, BIPOLAR TYPE (5) Sepsis Code(s): A41.9 - SEPSIS, UNSPECIFIED ORGANISM Qualifiers: Sepsis type: sepsis due to unspecified organism Sepsis acute organ dysfunction status: unspecified Qualified Code(s): A41.9 - Sepsis, unspecified organism (6) Septic shock Code(s): A41.9 - SEPSIS, UNSPECIFIED ORGANISM; R65.21 - SEVERE SEPSIS WITH SEPTIC SHOCK
--- NOTE | 2019-07-05 13:24 | PN ---
Progress Note (short form) - Note Progress Note: PULMONARY Awake, alert but not answering questions. No fevers recorded. Vital Signs Period Temp Pulse Resp BP Sys/Castillo Pulse Ox Last 24 Hr 97.5 F-99.2 F 104-123 14-24 104-139/55-114 95-98 Gen: NAD at rest Heart: RRR Lung: decreased breath sounds at the bases Abd: soft, +PEG Ext: no edema CBC, BMP 07/05/19 06:25 07/05/19 06:25 Active Medications Aspirin (Ecotrin -) 81 mg PO DAILY [facility] Last Admin: 07/05/19 10:43 Dose: Not Given Collagenase (Santyl -) 1 applic TP DAILY [facility]; Protocol Last Admin: 07/05/19 10:55 Dose: 1 applic Heparin Sodium (Porcine) (Heparin -) 5,000 unit SQ TID [facility] Last Admin: 07/05/19 05:04 Dose: 5,000 unit Dextrose/Sodium Chloride (D5-1/2ns -) 1,000 mls @ 100 mls/hr IV ASDIR [facility] Last Admin: 07/05/19 01:41 Dose: 100 mls/hr Piperacillin Sod/Tazobactam (Sod 2.25 gm/ Dextrose) 50 mls @ 100 mls/hr IVPB Q8H-IV [facility]; Protocol Last Admin: 07/05/19 10:55 Dose: 100 mls/hr Insulin Aspart (Novolog Vial Sliding Scale -) 1 vial SQ TIDAC [facility]; Protocol Last Admin: 07/05/19 11:08 Dose: Not Given Nystatin (Nystatin Oral Suspension -) 500,000 units PO Q6HPO [facility] Last Admin: 07/05/19 11:08 Dose: Not Given A/P Infected Decubitus Ulcers r/o Pneumonia r/o G tube site Infection Gram Positive Bacteremia Septic Shock Lactic Acidosis ESRD on HD COPD LV Diastolic Dysfunction HTN Hyperlipidemia Bipolar Disorder Schizophrenia Anemia - continue antibiotics - HD per renal - O2 to keep SpO2 >90% - wound care - DVT prophylaxis
--- NOTE | 2019-07-05 13:35 | PN ---
Progress Note, Physician History of Present Illness: Pt seen and examined at bedside. He is awake and appears comfortable. - Current Medication List Current Medications: Active Medications Aspirin (Ecotrin -) 81 mg PO DAILY [facility] Last Admin: 07/05/19 10:43 Dose: Not Given Collagenase (Santyl -) 1 applic TP DAILY [facility]; Protocol Last Admin: 07/05/19 10:55 Dose: 1 applic Heparin Sodium (Porcine) (Heparin -) 5,000 unit SQ TID [facility] Last Admin: 07/05/19 05:04 Dose: 5,000 unit Dextrose/Sodium Chloride (D5-1/2ns -) 1,000 mls @ 100 mls/hr IV ASDIR [facility] Last Admin: 07/05/19 01:41 Dose: 100 mls/hr Piperacillin Sod/Tazobactam (Sod 2.25 gm/ Dextrose) 50 mls @ 100 mls/hr IVPB Q8H-IV [facility]; Protocol Last Admin: 07/05/19 10:55 Dose: 100 mls/hr Insulin Aspart (Novolog Vial Sliding Scale -) 1 vial SQ TIDAC [facility]; Protocol Last Admin: 07/05/19 11:08 Dose: Not Given Nystatin (Nystatin Oral Suspension -) 500,000 units PO Q6HPO [facility] Last Admin: 07/05/19 11:08 Dose: Not Given - Objective Vital Signs: Vital Signs Temperature 98.1 F 07/05/19 10:00 Pulse Rate 104 H 07/05/19 10:00 Respiratory Rate 22 H 07/05/19 10:00 Blood Pressure 125/81 07/05/19 10:00 O2 Sat by Pulse Oximetry (%) 98 07/04/19 21:00 Constitutional: Yes: Calm Eyes: Yes: Conjunctiva Clear HENT: Yes: Atraumatic Neck: Yes: Supple Cardiovascular: Yes: S1, S2 Respiratory: Yes: CTA Bilaterally Gastrointestinal: Yes: Soft, Other (peg) Genitourinary: Yes: Incontinence Musculoskeletal: Yes: Muscle Weakness Edema: No Neurological: Yes: Confusion Labs: CBC, BMP 07/05/19 06:25 07/05/19 06:25 INR, PTT INR 1.35 (0.83-1.09) H 07/04/19 05:50 Problem List - Problems (1) Anemia Code(s): D64.9 - ANEMIA, UNSPECIFIED Qualifiers: Anemia type: unspecified type Qualified Code(s): D64.9 - Anemia, unspecified (2) ESRD (end stage renal disease) on dialysis Code(s): N18.6 - END STAGE RENAL DISEASE; Z99.2 - DEPENDENCE ON RENAL DIALYSIS Assessment/Plan Current Medications Generic Name Dose Route Start Last Admin Trade Name Freq PRN Reason Stop Dose Admin Aspirin 81 mg 07/05/19 10:00 07/05/19 10:43 Ecotrin - PO Not Given DAILY [facility] Collagenase 1 applic 07/05/19 10:00 07/05/19 10:55 Santyl - TP 1 applic DAILY [facility] Administration Protocol Heparin Sodium (Porcine) 5,000 unit 07/05/19 06:00 07/05/19 05:04 Heparin - SQ 5,000 unit TID [facility] Administration Dextrose/Sodium Chloride 1,000 mls @ 100 mls/hr 07/04/19 22:32 07/05/19 01:41 D5-1/2ns - IV 100 mls/hr ASDIR [facility] Administration Piperacillin Sod/Tazobactam 50 mls @ 100 mls/hr 07/05/19 02:00 07/05/19 10:55 Sod 2.25 gm/ Dextrose IVPB 100 mls/hr Q8H-IV [facility] Administration Protocol Insulin Aspart 1 vial 07/05/19 07:00 07/05/19 11:08 Novolog Vial Sliding Scale - SQ Not Given TIDAC [facility] Protocol Nystatin 500,000 units 07/05/19 00:00 07/05/19 11:08 Nystatin Oral Suspension - PO Not Given Q6HPO [facility] Impression 1. ESRD 2. sepsis 3. gout 4. HTN 5. CHF 6. DM 7. hx bipolar 8. MOLLY 9. non compliance 10. bacteremia 11. lactic acidosis Plan - HD tomorrow - monitor hg - cont ICU care - follow repeat cultures cultures - decrease fluids and stop once feeds started
[2019-07-05] MEDS: DEXTROSE 5%-0.45% SALINE 1,000 ML IV SCH (13:51)
--- NOTE | 2019-07-05 19:27 | PN ---
Progress Note, Physician History of Present Illness: GI FOLLOW UP NOTE Patient examined and case discussed with Dr Fernandez Patient awake and alert. Denies abdominal pain, nausea, vomiting, diarrhea, rectal bleeding, melena. Purulent drainage noted at G tube stoma site. Pus expressed from G tube site yesterday by Dr Fernandez. Labs show no leukocytosis and patient is afebrile. - Current Medication List Current Medications: Active Medications Aspirin (Ecotrin -) 81 mg PO DAILY [facility] Last Admin: 07/05/19 10:43 Dose: Not Given Collagenase (Santyl -) 1 applic TP DAILY [facility]; Protocol Last Admin: 07/05/19 10:55 Dose: 1 applic Epoetin Shawn (Procrit -) 10,000 unit IVPUSH ONCE ONE Stop: 07/06/19 13:36 Heparin Sodium (Porcine) (Heparin -) 5,000 unit SQ TID [facility] Last Admin: 07/05/19 13:35 Dose: 5,000 unit Piperacillin Sod/Tazobactam (Sod 2.25 gm/ Dextrose) 50 mls @ 100 mls/hr IVPB Q8H-IV [facility]; Protocol Last Admin: 07/05/19 17:00 Dose: 100 mls/hr Dextrose/Sodium Chloride (D5-1/2ns -) 1,000 mls @ 40 mls/hr IV ASDIR [facility] Last Admin: 07/05/19 13:51 Dose: 40 mls/hr Sodium Chloride (Normal Saline -) 250 mls @ 3,000 mls/hr IV PRN PRN PRN Reason: Hypotension during Dialysis Stop: 07/06/19 13:35 Insulin Aspart (Novolog Vial Sliding Scale -) 1 vial SQ TIDAC [facility]; Protocol Last Admin: 07/05/19 16:32 Dose: Not Given Nystatin (Nystatin Oral Suspension -) 500,000 units PO Q6HPO [facility] Last Admin: 07/05/19 17:01 Dose: Not Given - Objective Vital Signs: Vital Signs Temperature 98.3 F 07/05/19 18:00 Pulse Rate 109 H 07/05/19 18:00 Respiratory Rate 20 07/05/19 18:00 Blood Pressure 119/70 07/05/19 18:00 O2 Sat by Pulse Oximetry (%) 98 07/04/19 21:00 Constitutional: Yes: No Distress, Calm Eyes: Yes: Conjunctiva Clear HENT: Yes: Atraumatic Cardiovascular: Yes: Regular Rate and Rhythm Respiratory: Yes: Regular, CTA Bilaterally Gastrointestinal: Yes: Normal Bowel Sounds, Soft, Abdomen, Obese Wound/Incision: Yes: Other (purulent drainage around G tube stoma) Neurological: Yes: Alert Psychiatric: Yes: Alert Labs: CBC, BMP 07/05/19 06:25 07/05/19 06:25 INR, PTT INR 1.35 (0.83-1.09) H 07/04/19 05:50 Problem List - Problems (1) Infection of PEG site Assessment/Plan: -cleanse area with Betadine daily -daily dressing change -Vancomycin and Zosyn -secondary to abscess PEG Site -Surgical consult for possible I&D of abscess and possible jejunostomy tube Code(s): K94.22 - GASTROSTOMY INFECTION
--- NOTE | 2019-07-05 20:30 | CONS ---
DATE OF CONSULTATION: 07/05/2019 ADMISSION DIAGNOSIS: Renal failure, sepsis, possible cerebrovascular accident, and consultation for bilateral leg ulcers. HISTORY OF PRESENT ILLNESS: Patient is a 59-year-old admitted with history of possible stroke and renal failure. Patient has been on dialysis with PermCath, and I was asked to see the patient because of bilateral leg ulcers. Clinically the history is not available easily, so the patient is noncommunicative, and patient has got a PermCath on the right anterior chest wall, and his movement of the lower extremity is very minimal. Upper extremity mild, but the patient is not able to give any other history at the present time. Examination, the dressings were changed. Patient has got pressure ulcer on both lateral malleolus and femoral, popliteal pulses were felt and normal, and the ulcers show dry ischemic eschar, is all probably related to the pressure bedsore. So keep the legs off the bed with 2 pillows underneath and agree with Santyl dressing and keep a close watch on further deterioration of the ulceration. At the present time, patient is not a candidate for any intervention and is not necessary either, so probably will see him as an outpatient when the patient is discharged. The patient is in room 720. Wilmer [id number]
[2019-07-05] MEDS ORDERED: CHLORHEXIDINE GLUCONATE 4% CLEANSER FOR DECOLONIZATION TP SCH (22:00)
[2019-07-06] MEDS ORDERED: PIPERACILLIN/TAZOBACTAM 2.25 GM VIAL IVPB ONE ×3 (01:08→17:19)
[2019-07-06] MEDS ORDERED: DEXTROSE 5%-WATER - 50 ML IVPB ONE ×3 (01:09→17:19)
[2019-07-06] MEDS: NYSTATIN 500,000 UNITS/5 ML SUSPENSION PO SCH ×5 (01:18→19:15)
[2019-07-06] MEDS: PIPERACILLIN/TAZOB 2.25 GM 2.25 GM in DEXTROSE 5%-WATER - 50 ML IVPB SCH ×3 (01:19→17:27)
[2019-07-06] MEDS: DEXTROSE 5%-0.45% SALINE 1,000 ML IV SCH ×2 (01:27→15:58)
[2019-07-06] MEDS: HEPARIN NA (PORCINE) 5,000 UNITS/ML 1ML VIAL SQ SCH ×3 (05:47→21:49)
[2019-07-06] MEDS: INSULIN SLIDING SCALE (NOVOLOG) 1 VIAL SQ SCH ×3 (07:00→16:15)
--- NOTE | 2019-07-06 09:12 | PN ---
Progress Note (short form) - Note Progress Note: Awake, alert but confused. Breathing is non-labored. No acute events overnight. Intake & Output 07/03/19 07/04/19 07/05/19 07/06/19 23:59 23:59 23:59 23:59 Intake Total 718 036 3847 530 Output Total 0 2004 Balance 584 -1405 1420 530 Weight 225 lb 225 lb 12.8 oz 228 lb 228 lb 12.8 oz Last Vital Signs Temp Pulse Resp BP Pulse Ox 97.5 F L 117 H 22 H 98/52 L 98 07/06/19 06:00 07/06/19 06:00 07/06/19 06:00 07/06/19 06:00 07/04/19 21:00 Active Medications Aspirin (Ecotrin -) 81 mg PO DAILY [facility] Last Admin: 07/05/19 10:43 Dose: Not Given Collagenase (Santyl -) 1 applic TP DAILY [facility]; Protocol Last Admin: 07/05/19 10:55 Dose: 1 applic Epoetin Shawn (Procrit -) 10,000 unit IVPUSH ONCE ONE Stop: 07/06/19 13:36 Heparin Sodium (Porcine) (Heparin -) 5,000 unit SQ TID [facility] Last Admin: 07/06/19 05:47 Dose: 5,000 unit Piperacillin Sod/Tazobactam (Sod 2.25 gm/ Dextrose) 50 mls @ 100 mls/hr IVPB Q8H-IV [facility]; Protocol Last Admin: 07/06/19 01:19 Dose: 100 mls/hr Dextrose/Sodium Chloride (D5-1/2ns -) 1,000 mls @ 40 mls/hr IV ASDIR [facility] Last Admin: 07/06/19 01:27 Dose: 40 mls/hr Sodium Chloride (Normal Saline -) 250 mls @ 3,000 mls/hr IV PRN PRN PRN Reason: Hypotension during Dialysis Stop: 07/06/19 13:35 Insulin Aspart (Novolog Vial Sliding Scale -) 1 vial SQ TIDAC [facility]; Protocol Last Admin: 07/06/19 07:00 Dose: Not Given Nystatin (Nystatin Oral Suspension -) 500,000 units PO Q6HPO [facility] Last Admin: 07/06/19 05:49 Dose: Not Given Gen: NAD at rest Heart: RRR Lung: decreased breath sounds at the bases Abd: soft, +PEG Ext: no edema Laboratory Results - last 24 hr 07/01/19 07/05/19 07/05/19 16:10 05:40 11:06 POC Glucometer 104 107 Blood Type A POSITIVE Antibody Screen Negative Crossmatch See Detail 07/05/19 07/06/19 16:31 05:43 POC Glucometer 94 83 Blood Type Antibody Screen Crossmatch A/P Infected Decubitus Ulcers r/o Pneumonia r/o G tube site Infection Gram Positive Bacteremia Septic Shock Lactic Acidosis ESRD on HD COPD LV Diastolic Dysfunction HTN Hyperlipidemia Bipolar Disorder Schizophrenia Anemia - ABX - HD per renal - O2 to keep SpO2 >90% - wound care - DVT prophylaxis Dr Masters
[2019-07-06] MEDS: ASPIRIN COATED 81 MG TABLET.EC PO SCH (09:23)
[2019-07-06] MEDS: COLLAGENASE CLOSTRIDIUM HIST. 30 GRAMS TUBE TP SCH (09:23)
[2019-07-06 12:09] LABS: HEMATOCRIT 26.6 % (35.4-49); HEMOGLOBIN 8.6 GM/dL (11.7-16.9); MCH 26.4 pg (25.7-33.7); MCHC 32.2 g/dl (32.0-35.9); MEAN PLT VOLUME 7.1 fl (7.5-11.1); PLATELET COUNT 376 K/MM3 (134-434); RBC 3.24 M/mm3 (4.00-5.60); RDW 17.8 % (11.9-15.9); WHITE BLOOD COUNT 8.4 K/mm3 (4.0-10.0)
[2019-07-06] MEDS ORDERED: EPOETIN ALFA 10,000 UNIT/1 ML VIAL IVPUSH ONE (12:15)
[2019-07-06 12:35] LABS: BLOOD UREA NITROGEN 23.9 mg/dL (7-18); CALCIUM 8.8 mg/dL (8.5-10.1); CREATININE 2.8 mg/dL (0.55-1.3); POTASSIUM 3.2 mmol/L (3.5-5.1)
--- NOTE | 2019-07-06 12:57 | PN ---
Progress Note (short form) - Note Progress Note: Events noted pt examined in dialysis awake and alert no complaints Vital Signs - 24 hr 07/05/19 07/05/19 07/05/19 13:47 18:00 21:00 Temperature 97.9 F 98.3 F Pulse Rate 111 H 109 H Respiratory 20 20 26 H Rate Blood Pressure 134/87 119/70 07/05/19 07/06/19 07/06/19 21:09 01:00 06:00 Temperature 98.1 F 97.6 F 97.5 F L Pulse Rate 116 H 102 H 117 H Respiratory 26 H 20 22 H Rate Blood Pressure 120/84 134/65 98/52 L 07/06/19 07/06/19 07/06/19 10:00 10:55 11:00 Temperature 98.6 F 98.4 F Pulse Rate 106 H 89 102 H Respiratory 22 H 18 18 Rate Blood Pressure 145/93 139/99 151/87 07/06/19 07/06/19 07/06/19 11:05 11:30 12:00 Temperature Pulse Rate 112 H 95 H 101 H Respiratory 18 18 18 Rate Blood Pressure 154/106 H 117/79 118/80 Current Medications Generic Name Dose Route Start Last Admin Trade Name Freq PRN Reason Stop Dose Admin Aspirin 81 mg 07/05/19 10:00 07/06/19 09:23 Ecotrin - PO Not Given DAILY [facility] Collagenase 1 applic 07/05/19 10:00 07/06/19 09:23 Santyl - TP 1 applic DAILY [facility] Administration Protocol Heparin Sodium (Porcine) 5,000 unit 07/05/19 06:00 07/06/19 05:47 Heparin - SQ 5,000 unit TID [facility] Administration Piperacillin Sod/Tazobactam 50 mls @ 100 mls/hr 07/05/19 02:00 07/06/19 09:21 Sod 2.25 gm/ Dextrose IVPB 100 mls/hr Q8H-IV [facility] Administration Protocol Dextrose/Sodium Chloride 1,000 mls @ 40 mls/hr 07/05/19 13:35 07/06/19 01:27 D5-1/2ns - IV 40 mls/hr ASDIR [facility] Administration Insulin Aspart 1 vial 07/05/19 07:00 07/06/19 07:00 Novolog Vial Sliding Scale - SQ Not Given TIDAC [facility] Protocol Nystatin 500,000 units 07/05/19 00:00 07/06/19 05:49 Nystatin Oral Suspension - PO Not Given Q6HPO [facility] Laboratory Results - last 24 hr 07/01/19 07/05/19 07/06/19 16:10 16:31 05:43 WBC RBC Hgb Hct MCV MCH MCHC RDW Plt Count MPV Sodium Potassium Chloride Carbon Dioxide Anion Gap BUN Creatinine Est GFR (CKD-EPI)AfAm Est GFR (CKD-EPI)NonAf POC Glucometer 94 83 Random Glucose Calcium Blood Type A POSITIVE Antibody Screen Negative Crossmatch See Detail 07/06/19 07/06/19 07/06/19 11:23 11:23 11:35 WBC 8.4 RBC 3.24 L Hgb 8.6 L Hct 26.6 L MCV 82.0 MCH 26.4 MCHC 32.2 RDW 17.8 H Plt Count 376 MPV 7.1 L Sodium 141 Potassium 3.2 L Chloride 103 Carbon Dioxide 30 Anion Gap 8 BUN 23.9 H Creatinine 2.8 H Est GFR (CKD-EPI)AfAm 27.76 Est GFR (CKD-EPI)NonAf 23.95 POC Glucometer 92 Random Glucose 99 Calcium 8.8 Blood Type Antibody Screen Crossmatch Constitutional: Yes: looks better. Eyes: Yes: Conjunctiva Clear, Neck: Yes: Supple. 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 ESRD--On HD HTN HLD CHF COPD Gout Bipolar Disorder Schizophrenia on iv antibiotics Gtube changed today-- will wait for instructions on when to use Spoke with Neurology-- pt needs MRI brain-- 2 physician consent done-->MRI pending Hd per renal Vascular eval for wounds-- appreciated Noted IR recomendations-->Gtube has been changed but there is abdominal wall defect, skin infection -->either completely removing Gtubve to let it heal or place a Jejunostomy tube Spoke with [facility] TECHNICIAN today -- pt is awake alert- not sure if the recent CVA has affected his swallowing- will do swallow evaluation today - if unable to fully meet his nutritional needs by mouth, then he would need a J tube Problem List - Problems (1) ESRD (end stage renal disease) on dialysis Code(s): N18.6 - END STAGE RENAL DISEASE; Z99.2 - DEPENDENCE ON RENAL DIALYSIS (2) Elevated LFTs Code(s): R94.5 - ABNORMAL RESULTS OF LIVER FUNCTION STUDIES (3) Infection of PEG site Code(s): K94.22 - GASTROSTOMY INFECTION (4) Schizo affective schizophrenia Code(s): F25.0 - SCHIZOAFFECTIVE DISORDER, BIPOLAR TYPE (5) Sepsis Code(s): A41.9 - SEPSIS, UNSPECIFIED ORGANISM Qualifiers: Sepsis type: sepsis due to unspecified organism Sepsis acute organ dysfunction status: unspecified Qualified Code(s): A41.9 - Sepsis, unspecified organism (6) Septic shock Code(s): A41.9 - SEPSIS, UNSPECIFIED ORGANISM; R65.21 - SEVERE SEPSIS WITH SEPTIC SHOCK
--- NOTE | 2019-07-06 13:31 | PN ---
Progress Note (short form) - Note Progress Note: reviewed Dr Estrada" s suggestons, in view of the presence of an abscess aroung the PEG site it would be best to remove the g-tube and let if heal. If no surgical incision and drainage is planned will continue local wound care with Betadine. In view of this , the patient will benefit in inserting a jejunostomy tube. insertion.
--- NOTE | 2019-07-06 14:20 | PN ---
Progress Note (short form) - Note Progress Note: 59 year old male history of ESRD,HTN,HLD,CHF,COPD,Gout, Bipolar disorder, Schizophrenia. Patient has been admitted to hospital for mental tatus change and Pneurmonia . Patient has ct head showed left occpital acute to subacute stroke. He is on aspirin. Patient has liver enzyme raised. I spoke to house staff and nursing staff. Patient has improved clinically, off rebreather and patient is feeling better he opens eye and able to folllow commnad NEUROLOGICAL EXAMINATION Alert opens eye, and able to communite, oriented x 1 eomi, pupils reactivef ,? mild right facial palsy moving upper extremity more than lower extremity has has no hemiparesis reflex are generalized diminished not able to examine if one side is moving less than other ct head reviewed showed subacute left occpital stroke Assessment/Plan Acute mental status change seems to be metabolic encephalopathy ( septicemia, hypotension, renal failure ) and pateint has left occpital stroke , subacute vs acute. Mr Cortez has improved clinically. He seems to have severe critical illness neuropathy and deconditioning leading to weakness in lower extremity Plan: suggest to continue aspirin, hold statin as liver enzyme are high - mri ofbrain , consent signed, - PT, SPEECH , Dvt prophylaxis - would continue to follow with primary Thanking you so much Hever Coe MD
--- NOTE | 2019-07-06 14:31 | PN ---
Progress Note, Physician History of Present Illness: Pt seen and examined at bedside. He is tolerating HD. - Current Medication List Current Medications: Active Medications Aspirin (Ecotrin -) 81 mg PO DAILY [facility] Last Admin: 07/06/19 09:23 Dose: Not Given Collagenase (Santyl -) 1 applic TP DAILY [facility]; Protocol Last Admin: 07/06/19 09:23 Dose: 1 applic Heparin Sodium (Porcine) (Heparin -) 5,000 unit SQ TID [facility] Last Admin: 07/06/19 05:47 Dose: 5,000 unit Piperacillin Sod/Tazobactam (Sod 2.25 gm/ Dextrose) 50 mls @ 100 mls/hr IVPB Q8H-IV [facility]; Protocol Last Admin: 07/06/19 09:21 Dose: 100 mls/hr Dextrose/Sodium Chloride (D5-1/2ns -) 1,000 mls @ 40 mls/hr IV ASDIR [facility] Last Admin: 07/06/19 01:27 Dose: 40 mls/hr Insulin Aspart (Novolog Vial Sliding Scale -) 1 vial SQ TIDAC [facility]; Protocol Last Admin: 07/06/19 07:00 Dose: Not Given Nystatin (Nystatin Oral Suspension -) 500,000 units PO Q6HPO [facility] Last Admin: 07/06/19 05:49 Dose: Not Given - Objective Vital Signs: Vital Signs Temperature 98.4 F 07/06/19 10:55 Pulse Rate 106 H 07/06/19 13:30 Respiratory Rate 18 07/06/19 13:30 Blood Pressure 121/82 07/06/19 13:30 O2 Sat by Pulse Oximetry (%) 98 07/04/19 21:00 Constitutional: Yes: Calm Eyes: Yes: Conjunctiva Clear HENT: Yes: Atraumatic Neck: Yes: Supple Cardiovascular: Yes: S1, S2 Respiratory: Yes: CTA Bilaterally Gastrointestinal: Yes: Soft, Abdomen, Obese Genitourinary: Yes: Incontinence Musculoskeletal: Yes: Muscle Weakness Edema: No Neurological: Yes: Confusion Labs: CBC, BMP 07/06/19 11:23 07/06/19 11:23 INR, PTT INR 1.35 (0.83-1.09) H 07/04/19 05:50 Problem List - Problems (1) Anemia Code(s): D64.9 - ANEMIA, UNSPECIFIED Qualifiers: Anemia type: unspecified type Qualified Code(s): D64.9 - Anemia, unspecified (2) ESRD (end stage renal disease) on dialysis Code(s): N18.6 - END STAGE RENAL DISEASE; Z99.2 - DEPENDENCE ON RENAL DIALYSIS Assessment/Plan Current Medications Generic Name Dose Route Start Last Admin Trade Name Freq PRN Reason Stop Dose Admin Aspirin 81 mg 07/05/19 10:00 07/06/19 09:23 Ecotrin - PO Not Given DAILY [facility] Collagenase 1 applic 07/05/19 10:00 07/06/19 09:23 Santyl - TP 1 applic DAILY [facility] Administration Protocol Heparin Sodium (Porcine) 5,000 unit 07/05/19 06:00 07/06/19 05:47 Heparin - SQ 5,000 unit TID [facility] Administration Piperacillin Sod/Tazobactam 50 mls @ 100 mls/hr 07/05/19 02:00 07/06/19 09:21 Sod 2.25 gm/ Dextrose IVPB 100 mls/hr Q8H-IV [facility] Administration Protocol Dextrose/Sodium Chloride 1,000 mls @ 40 mls/hr 07/05/19 13:35 07/06/19 01:27 D5-1/2ns - IV 40 mls/hr ASDIR [facility] Administration Insulin Aspart 1 vial 07/05/19 07:00 07/06/19 07:00 Novolog Vial Sliding Scale - SQ Not Given TIDAC [facility] Protocol Nystatin 500,000 units 07/05/19 00:00 07/06/19 05:49 Nystatin Oral Suspension - PO Not Given Q6HPO [facility] Impression 1. ESRD 2. sepsis 3. gout 4. HTN 5. CHF 6. DM 7. hx bipolar 8. MLOLY 9. non compliance 10. bacteremia 11. lactic acidosis Plan - HD today - d/c fluids once feeds started - abx per primary team - decrease fluids and stop once feeds started
--- NOTE | 2019-07-06 15:34 | CONSULT ---
Admitting History and Physical - Primary Care Physician PCP: Earnestine Shah - Admission History of Present Illness: Per EMR- 59 yo morbidly w/ PMH of ESRD (, , ), obesity, HTN, HLD, CHF, COPD, gout, Bipolar Disorder, and schizophrenia presented from [facility] for fever. Pt is admitted to ICU for severe sepsis 2/2 pneumonia vs GI source. Per neurology-Acute mental status change seems to be metabolic encephalopathy( septicemia, hypotension, renal failure ) and pateint has left occpital stroke , subacute vs acute Per GI-presence of an abscess aroung the PEG site , best to remove the g-tube and let if heal. In view of this , the patient will benefit in inserting a jejunostomy tube. insertion. This is my first consult with this pt. PEG placed at [facility] when pt was septic and debilitated- [facility] notes reported on 06/28 nonverbal communication mostly and difficulty swallowing with signs of aspiration. Pt improving, more alert and responsive today. History Source: Medical Record Limitations to Obtaining History: Clinical Condition - Past Medical History Cardiovascular: Yes: CHF, HTN, Hyperlipdemia Pulmonary: Yes: COPD Renal/: Yes: Renal Failure, Renal Inusuff, Hemodialysis Psych: Yes: Bipolar, Schizophrenia Musculoskeletal: Yes: Other (Slight edema of the skin in left buttock , no pain , not tender, there is superficial breakdown of the skin of left buttock.) Rheumatology: Yes: Gout - Past Surgical History Past Surgical History: Yes: None Additional Past Surgical History: G - tube - Smoking History Smoking history: Never smoked Have you smoked in the past 12 months: No Aproximately how many cigarettes per day: 0 - Alcohol/Substance Use Hx Alcohol Use: No History of Substance Use: reports: None - Social History ADL: Support Services Occupation: disability History of Recent Travel: No History - Admission Reason For Visit: ACUTE KIDNEY INJURY END STAGE RENAL DISEASE NEEDIN - Diagnostics X-ray: Report Reviewed - General Mental Status: Awake and Alert (not oriented x 3.), Able to Follow Commands, Vague, Flat Affect Attention: Distractible, Mild Impairment Ability to Follow Directions: Fair - Hearing Hearing: Normal Speech Evaluation - Communication Primary Language: [place] Communication: Yes: Simple Responses (Impaired speech initiation, bursts of speech, short phrases, likely psychogenic) Oral Expression Ability: Yes: Mild Impairment, Moderate Impairment - Speech Production Intelligibility: Yes: WNL - Speech Characteristics Voice Loudness: Normal Voice Pitch: Yes: Normal Voice Phonatory-based Quality: Yes: Normal Speech Pattern: Impaired Nasal Resonance: Normal Articulation: Yes: Precise - Language/Auditory Comprehension Follows: Yes: 1 Stage Simple Commands Observation: Able to respond to yes/no queries: Yes (delayed response), Yes/No Confusion: No, Comprehends Conversational Speech: Yes - Language/Verbal Expression Able to Respond to Simple Queries: Yes: Moderately Impaired - Swallow Evaluation/Bedside Assessment Current Nutritional Intake: NPO Oral Secretions: Yes: R/O Candidiasis, Tongue Coated (white thich patches- mothcare, mgmt for thrush. Pain?) Dentition: Yes: Missing Teeth Facial Symmetry at Rest: Symmetrical Facial Symmetry on Retraction: Symmetrical Pucker Lips: Reduced ROM Smile: Normal Lingual Movement: Symmetric Lingual Speed of Movement: Normal Lingual Movement Strgth Against Opposition: Normal Lingual Movement Characteristics: Normal Velopharyngeal Movement: Normal Laryngeal Movement: Labored,delay initiation Rate of Intake: Slow/Holding (orally defensive, seems frightened, grimaces, limited PO acceptance) Bolus Size: Small Labial Seal: WFL Oral Prep Time: Increased Pocketing: None Timing of Swallow: Delayed Coughing/Throat Clear: No Change in Voice: No Recommendations - Speech Evaluation, Impression/Plan Impression: Verbally responsive, delayed, bursts of speech, intelligible. Social speech. Thrush. Delayed, fairly brisk swallow. Orally defensive. May not accept enough by mouth but suggest trial. - Disposition Discharge to: Jail Facility - Dysphagia Impressions/Plan Dysphagia Impressions: Mild Impairment, Ongoing Evaluation *Silent aspiration: cannot be R/O at bedside Dysphagia Treatment Plan: Small Bites, Trial Feedings, Safe Rate, 1/2 tsp. at a time, Elevate HOB during feed - Recommendations Diet Consistency: Dysphagia Pureed Medication Administration: Crushed with applesauce Liquids: [place] Thick Supplement: Magic Cup, Ensure Pudding, Other (2 gaby hn, single sips)
[2019-07-07] MEDS ORDERED: DEXTROSE 5%-WATER - 50 ML IVPB ONE ×3 (01:02→16:52)
[2019-07-07] MEDS ORDERED: PIPERACILLIN/TAZOBACTAM 2.25 GM VIAL IVPB ONE ×3 (01:02→16:52)
[2019-07-07] MEDS: PIPERACILLIN/TAZOB 2.25 GM 2.25 GM in DEXTROSE 5%-WATER - 50 ML IVPB SCH ×3 (01:06→17:11)
[2019-07-07] MEDS: NYSTATIN 500,000 UNITS/5 ML SUSPENSION PO SCH ×4 (01:09→17:12)
[2019-07-07] MEDS: HEPARIN NA (PORCINE) 5,000 UNITS/ML 1ML VIAL SQ SCH ×3 (06:27→22:34)
[2019-07-07] MEDS: INSULIN SLIDING SCALE (NOVOLOG) 1 VIAL SQ SCH ×3 (06:34→16:42)
[2019-07-07] MEDS: ASPIRIN COATED 81 MG TABLET.EC PO SCH (09:15)
[2019-07-07] MEDS: COLLAGENASE CLOSTRIDIUM HIST. 30 GRAMS TUBE TP SCH (09:15)
[2019-07-07] MEDS: DEXTROSE 5%-0.45% SALINE 1,000 ML IV SCH (13:27)
--- NOTE | 2019-07-07 13:32 | PN ---
Progress Note (short form) - Note Progress Note: pt seen/ examined today. awake/ comfortable. looks better denies pain chronic ill appearance Vital Signs Period Temp Pulse Resp BP Sys/Castillo Pulse Ox Last 24 Hr 97.2 F-98.6 F 66-127 18-20 98-144/65-101 98-98 Active Medications Aspirin (Ecotrin -) 81 mg PO DAILY [facility] Last Admin: 07/07/19 09:15 Dose: Not Given Collagenase (Santyl -) 1 applic TP DAILY [facility]; Protocol Last Admin: 07/07/19 09:15 Dose: 1 applic Heparin Sodium (Porcine) (Heparin -) 5,000 unit SQ TID [facility] Last Admin: 07/07/19 13:26 Dose: 5,000 unit Piperacillin Sod/Tazobactam (Sod 2.25 gm/ Dextrose) 50 mls @ 100 mls/hr IVPB Q8H-IV [facility]; Protocol Last Admin: 07/07/19 09:15 Dose: 100 mls/hr Dextrose/Sodium Chloride (D5-1/2ns -) 1,000 mls @ 40 mls/hr IV ASDIR [facility] Last Admin: 07/07/19 13:27 Dose: Not Given Insulin Aspart (Novolog Vial Sliding Scale -) 1 vial SQ TIDAC [facility]; Protocol Last Admin: 07/07/19 11:36 Dose: Not Given Nystatin (Nystatin Oral Suspension -) 500,000 units PO Q6HPO [facility] Last Admin: 07/07/19 11:23 Dose: Not Given CBC, BMP 07/06/19 11:23 07/06/19 11:23 Microbiology 07/04/19 11:15 Blood Culture - Preliminary Blood - Post-Dialysis NO GROWTH OBTAINED AFTER 72 HOURS, INCUBATION TO CONTINUE FOR 2 DAYS. 07/04/19 11:45 Blood Culture - Preliminary Blood - Post-Dialysis NO GROWTH OBTAINED AFTER 72 HOURS, INCUBATION TO CONTINUE FOR 2 DAYS. 07/01/19 10:45 Blood Culture - Final Blood - Bradley Cath NO GROWTH AFTER 5 DAYS INCUBATION 07/01/19 13:19 Blood Culture - Final Blood - Peripheral Venous NO GROWTH AFTER 5 DAYS INCUBATION Physical Exam Constitutional: Yes: comfortable Eyes: Yes: Conjunctiva Clear, Neck: Yes: Supple. 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 ESRD--On HD HTN HLD CHF COPD Gout Bipolar Disorder Schizophrenia on iv antibiotics Gtube changed -- Swallow eval noted feeding trial pt needs MRI brain-- 2 physician consent done-->MRI pending Hd per renal - Vascular eval for wounds-- appreciated Noted IR recomendations-->Gtube has been changed but there is abdominal wall defect, skin infection -->either completely removing Gtubve to let it heal or place a Jejunostomy tube d/w RN also will follow Problem List - Problems (1) ESRD (end stage renal disease) on dialysis Code(s): N18.6 - END STAGE RENAL DISEASE; Z99.2 - DEPENDENCE ON RENAL DIALYSIS (2) Elevated LFTs Code(s): R94.5 - ABNORMAL RESULTS OF LIVER FUNCTION STUDIES (3) Infection of PEG site Code(s): K94.22 - GASTROSTOMY INFECTION (4) Schizo affective schizophrenia Code(s): F25.0 - SCHIZOAFFECTIVE DISORDER, BIPOLAR TYPE (5) Sepsis Code(s): A41.9 - SEPSIS, UNSPECIFIED ORGANISM Qualifiers: Sepsis type: sepsis due to unspecified organism Sepsis acute organ dysfunction status: unspecified Qualified Code(s): A41.9 - Sepsis, unspecified organism (6) Septic shock Code(s): A41.9 - SEPSIS, UNSPECIFIED ORGANISM; R65.21 - SEVERE SEPSIS WITH SEPTIC SHOCK Problem List - Problems (1) Sepsis associated hypotension Code(s): A41.9 - SEPSIS, UNSPECIFIED ORGANISM; I95.9 - HYPOTENSION, UNSPECIFIED (2) ESRD (end stage renal disease) on dialysis Code(s): N18.6 - END STAGE RENAL DISEASE; Z99.2 - DEPENDENCE ON RENAL DIALYSIS (3) Septic shock Code(s): A41.9 - SEPSIS, UNSPECIFIED ORGANISM; R65.21 - SEVERE SEPSIS WITH SEPTIC SHOCK (4) Anemia Code(s): D64.9 - ANEMIA, UNSPECIFIED (5) Bipolar 1 disorder Code(s): F31.9 - BIPOLAR DISORDER, UNSPECIFIED (6) Morbid (severe) obesity due to excess calories Code(s): E66.01 - MORBID (SEVERE) OBESITY DUE TO EXCESS CALORIES (7) MOLLY (obstructive sleep apnea) Code(s): G47.33 - OBSTRUCTIVE SLEEP APNEA (ADULT) (PEDIATRIC) (8) Type 2 diabetes mellitus Code(s): E11.9 - TYPE 2 DIABETES MELLITUS WITHOUT COMPLICATIONS Qualifiers: 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
--- NOTE | 2019-07-07 13:37 | PN ---
Progress Note (short form) - Note Progress Note: 59 year old male history of ESRD,HTN,HLD,CHF,COPD,Gout, Bipolar disorder, Schizophrenia. Patient has been admitted to hospital for mental tatus change and Pneurmonia . Patient has ct head showed left occpital acute to subacute stroke. He is on aspirin. Patient has liver enzyme raised. I spoke to house staff and nursing staff. Patient is alert and follow simple command, mri of brain did not show any acute infarct. NEUROLOGICAL EXAMINATION Alert opens eye, and able to communite, oriented x 1 eomi, pupils reactivef ,? mild right facial palsy moving upper extremity more than lower extremity has has no hemiparesis reflex are generalized diminished ct head reviewed showed subacute left occpital stroke mri of brain unremarkable and no acute stroke, there is old left occpital stroke Assessment/Plan Acute mental status change seems to be metabolic encephalopathy ( septicemia, hypotension, renal failure ) and pateint has left occpital stroke , it is chronic , no acute strok eidentified on mri of brain He seems to have severe critical illness neuropathy and deconditioning leading to weakness in lower extremity Plan: suggest to continue aspirin, hold statin as liver enzyme are high - PT, SPEECH , Dvt prophylaxis Thanking you so much Hever Coe MD
--- NOTE | 2019-07-07 14:28 | PN ---
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 Pt accepted all of mashed potatoes only, fed slowly, no cough or vocal wetness. 10 minutes later, it all came back out, did not smell like vomit, no cough. Stasis in pharynx? reduced UES relaxation? Pt too large to fit in fluoro machine for mbs. Pursue JT for nutrition. Possibly FEES exam in future.
--- NOTE | 2019-07-07 15:54 | PN ---
Progress Note, Physician History of Present Illness: PULMONARY AWAKE,CONFUSED,COMFORTABLE,-SOB - Current Medication List Current Medications: Active Medications Aspirin (Ecotrin -) 81 mg PO DAILY [facility] Last Admin: 07/07/19 09:15 Dose: Not Given Collagenase (Santyl -) 1 applic TP DAILY [facility]; Protocol Last Admin: 07/07/19 09:15 Dose: 1 applic Heparin Sodium (Porcine) (Heparin -) 5,000 unit SQ TID [facility] Last Admin: 07/07/19 13:26 Dose: 5,000 unit Piperacillin Sod/Tazobactam (Sod 2.25 gm/ Dextrose) 50 mls @ 100 mls/hr IVPB Q8H-IV [facility]; Protocol Last Admin: 07/07/19 09:15 Dose: 100 mls/hr Dextrose/Sodium Chloride (D5-1/2ns -) 1,000 mls @ 40 mls/hr IV ASDIR [facility] Last Admin: 07/07/19 13:27 Dose: Not Given Insulin Aspart (Novolog Vial Sliding Scale -) 1 vial SQ TIDAC [facility]; Protocol Last Admin: 07/07/19 11:36 Dose: Not Given Nystatin (Nystatin Oral Suspension -) 500,000 units PO Q6HPO [facility] Last Admin: 07/07/19 11:23 Dose: Not Given - Objective Vital Signs: Vital Signs Temperature 98.6 F 07/07/19 14:31 Pulse Rate 117 H 07/07/19 14:31 Respiratory Rate 20 07/07/19 14:31 Blood Pressure 125/77 07/07/19 14:31 O2 Sat by Pulse Oximetry (%) 98 07/07/19 09:00 Constitutional: Yes: Well Nourished, Calm Eyes: Yes: WNL HENT: Yes: WNL Neck: Yes: WNL Cardiovascular: Yes: Regular Rate and Rhythm, S1, S2 Respiratory: Yes: Diminished, Other (POOR INSPIRATORY EFFORT) Gastrointestinal: Yes: Normal Bowel Sounds, Soft Extremities: Yes: WNL Edema: No Labs: CBC, BMP Problem List - Problems (1) Elevated LFTs Code(s): R94.5 - ABNORMAL RESULTS OF LIVER FUNCTION STUDIES (2) Pneumonia Code(s): J18.9 - PNEUMONIA, UNSPECIFIED ORGANISM Qualifiers: Pneumonia type: due to unspecified organism Laterality: bilateral Lung location: lower lobe of lung Qualified Code(s): J18.1 - Lobar pneumonia, unspecified organism (3) Schizo affective schizophrenia Code(s): F25.0 - SCHIZOAFFECTIVE DISORDER, BIPOLAR TYPE (4) Sepsis Code(s): A41.9 - SEPSIS, UNSPECIFIED ORGANISM Qualifiers: Sepsis type: sepsis due to unspecified organism Sepsis acute organ dysfunction status: unspecified Qualified Code(s): A41.9 - Sepsis, unspecified organism (5) Stage 4 chronic kidney disease Code(s): N18.4 - CHRONIC KIDNEY DISEASE, STAGE 4 (SEVERE) (6) Acute metabolic encephalopathy Code(s): G93.41 - METABOLIC ENCEPHALOPATHY (7) Chronic diastolic heart failure Code(s): I50.32 - CHRONIC DIASTOLIC (CONGESTIVE) HEART FAILURE (8) Anemia Code(s): D64.9 - ANEMIA, UNSPECIFIED Qualifiers: Anemia type: unspecified type Qualified Code(s): D64.9 - Anemia, unspecified (9) Hypertension Code(s): I10 - ESSENTIAL (PRIMARY) HYPERTENSION Qualifiers: Hypertension type: unspecified Qualified Code(s): I10 - Essential (primary ) hypertension Assessment/Plan A/P Infected Decubitus Ulcers r/o Pneumonia r/o G tube site Infection Gram Positive Bacteremia Septic Shock Lactic Acidosis ESRD on HD COPD LV Diastolic Dysfunction HTN Hyperlipidemia Bipolar Disorder Schizophrenia Anemia - ABX - HD per renal - O2 to keep SpO2 >90% - wound care - DVT prophylaxis - CHEST X-RAY jolynn MONTELONGO
[2019-07-07] MEDS ORDERED: SODIUM CHLORIDE 250 ML IV PRN (16:13)
--- NOTE | 2019-07-07 16:13 | PN ---
Progress Note, Physician History of Present Illness: Pt seen and examined at bedside. He appears comfortable. - Current Medication List Current Medications: Active Medications Aspirin (Ecotrin -) 81 mg PO DAILY [facility] Last Admin: 07/07/19 09:15 Dose: Not Given Collagenase (Santyl -) 1 applic TP DAILY [facility]; Protocol Last Admin: 07/07/19 09:15 Dose: 1 applic Heparin Sodium (Porcine) (Heparin -) 5,000 unit SQ TID [facility] Last Admin: 07/07/19 13:26 Dose: 5,000 unit Piperacillin Sod/Tazobactam (Sod 2.25 gm/ Dextrose) 50 mls @ 100 mls/hr IVPB Q8H-IV [facility]; Protocol Last Admin: 07/07/19 09:15 Dose: 100 mls/hr Dextrose/Sodium Chloride (D5-1/2ns -) 1,000 mls @ 40 mls/hr IV ASDIR [facility] Last Admin: 07/07/19 13:27 Dose: Not Given Insulin Aspart (Novolog Vial Sliding Scale -) 1 vial SQ TIDAC [facility]; Protocol Last Admin: 07/07/19 11:36 Dose: Not Given Nystatin (Nystatin Oral Suspension -) 500,000 units PO Q6HPO [facility] Last Admin: 07/07/19 11:23 Dose: Not Given - Objective Vital Signs: Vital Signs Temperature 98.6 F 07/07/19 14:31 Pulse Rate 117 H 07/07/19 14:31 Respiratory Rate 20 07/07/19 14:31 Blood Pressure 125/77 07/07/19 14:31 O2 Sat by Pulse Oximetry (%) 98 07/07/19 09:00 Constitutional: Yes: Calm Eyes: Yes: Conjunctiva Clear HENT: Yes: Atraumatic Neck: Yes: Supple Cardiovascular: Yes: S1, S2 Respiratory: Yes: CTA Bilaterally Gastrointestinal: Yes: Soft, Abdomen, Obese Genitourinary: Yes: Incontinence Musculoskeletal: Yes: Muscle Weakness Edema: No Neurological: Yes: Confusion Labs: CBC, BMP 07/06/19 11:23 07/06/19 11:23 INR, PTT INR 1.35 (0.83-1.09) H 07/04/19 05:50 Problem List - Problems (1) Anemia Code(s): D64.9 - ANEMIA, UNSPECIFIED Qualifiers: Anemia type: unspecified type Qualified Code(s): D64.9 - Anemia, unspecified (2) ESRD (end stage renal disease) on dialysis Code(s): N18.6 - END STAGE RENAL DISEASE; Z99.2 - DEPENDENCE ON RENAL DIALYSIS Assessment/Plan Current Medications Generic Name Dose Route Start Last Admin Trade Name Freq PRN Reason Stop Dose Admin Aspirin 81 mg 07/05/19 10:00 07/07/19 09:15 Ecotrin - PO Not Given DAILY [facility] Collagenase 1 applic 07/05/19 10:00 07/07/19 09:15 Santyl - TP 1 applic DAILY [facility] Administration Protocol Heparin Sodium (Porcine) 5,000 unit 07/05/19 06:00 07/07/19 13:26 Heparin - SQ 5,000 unit TID [facility] Administration Piperacillin Sod/Tazobactam 50 mls @ 100 mls/hr 07/05/19 02:00 07/07/19 09:15 Sod 2.25 gm/ Dextrose IVPB 100 mls/hr Q8H-IV [facility] Administration Protocol Dextrose/Sodium Chloride 1,000 mls @ 40 mls/hr 07/05/19 13:35 07/07/19 13:27 D5-1/2ns - IV Not Given ASDIR [facility] Insulin Aspart 1 vial 07/05/19 07:00 07/07/19 11:36 Novolog Vial Sliding Scale - SQ Not Given TIDAC [facility] Protocol Nystatin 500,000 units 07/05/19 00:00 07/07/19 11:23 Nystatin Oral Suspension - PO Not Given Q6HPO [facility] Impression 1. ESRD 2. sepsis 3. gout 4. HTN 5. CHF 6. DM 7. hx bipolar 8. MOLLY 9. non compliance 10. bacteremia 11. lactic acidosis Plan - next HD tomorrow - can d/c fluids - abx per primary team - renal diet
--- NOTE | 2019-07-07 16:32 | PN ---
Progress Note, Physician History of Present Illness: AWAKE. BUT NOT CONVERSANT OFFERS NO COMPLAINTS TEMPS DOWN AFEBRILE WBC IMPROVED WNL BC + SCN 1 BOTTLE - Current Medication List Current Medications: Active Medications Aspirin (Ecotrin -) 81 mg PO DAILY [facility] Last Admin: 07/07/19 09:15 Dose: Not Given Collagenase (Santyl -) 1 applic TP DAILY [facility]; Protocol Last Admin: 07/07/19 09:15 Dose: 1 applic Heparin Sodium (Porcine) (Heparin -) 5,000 unit SQ TID [facility] Last Admin: 07/07/19 13:26 Dose: 5,000 unit Piperacillin Sod/Tazobactam (Sod 2.25 gm/ Dextrose) 50 mls @ 100 mls/hr IVPB Q8H-IV [facility]; Protocol Last Admin: 07/07/19 09:15 Dose: 100 mls/hr Dextrose/Sodium Chloride (D5-1/2ns -) 1,000 mls @ 40 mls/hr IV ASDIR [facility] Last Admin: 07/07/19 13:27 Dose: Not Given Sodium Chloride (Normal Saline -) 250 mls @ 3,000 mls/hr IV PRN PRN PRN Reason: Hypotension during Dialysis Stop: 07/08/19 16:13 Insulin Aspart (Novolog Vial Sliding Scale -) 1 vial SQ TIDAC [facility]; Protocol Last Admin: 07/07/19 11:36 Dose: Not Given Nystatin (Nystatin Oral Suspension -) 500,000 units PO Q6HPO [facility] Last Admin: 07/07/19 11:23 Dose: Not Given - Objective Vital Signs: Vital Signs Temperature 98.6 F 07/07/19 14:31 Pulse Rate 117 H 07/07/19 14:31 Respiratory Rate 20 07/07/19 14:31 Blood Pressure 125/77 07/07/19 14:31 O2 Sat by Pulse Oximetry (%) 98 07/07/19 09:00 Constitutional: Yes: No Distress, Obese Eyes: Yes: Conjunctiva Clear Cardiovascular: Yes: Regular Rate and Rhythm, S1, S2 Respiratory: Yes: CTA Bilaterally, Diminished Gastrointestinal: Yes: Normal Bowel Sounds, Soft. No: Tenderness Edema: No Labs: CBC, BMP 07/06/19 11:23 07/06/19 11:23 INR, PTT INR 1.35 (0.83-1.09) H 07/04/19 05:50 Assessment/Plan SEPSIS R/O SEPTIC SHOCK IMPROVED + BC SCN 1 BOTTLE PROBABLE CONTAMINANT ESRD FEVER/ LEUKOCYTOSIS IMPROVED CONTINUE ZOSYN VANCOMYCIN THERAPUTIC REPEAT BC NEGATIVE
[2019-07-08] MEDS ORDERED: PIPERACILLIN/TAZOBACTAM 2.25 GM VIAL IVPB ONE ×3 (01:40→17:11)
[2019-07-08] MEDS ORDERED: DEXTROSE 5%-WATER - 50 ML IVPB ONE ×3 (01:41→17:12)
[2019-07-08] MEDS: NYSTATIN 500,000 UNITS/5 ML SUSPENSION PO SCH ×4 (01:53→17:14)
[2019-07-08] MEDS: PIPERACILLIN/TAZOB 2.25 GM 2.25 GM in DEXTROSE 5%-WATER - 50 ML IVPB SCH ×3 (01:53→17:13)
[2019-07-08] MEDS: HEPARIN NA (PORCINE) 5,000 UNITS/ML 1ML VIAL SQ SCH ×3 (05:44→22:23)
[2019-07-08] MEDS: DEXTROSE 5%-0.45% SALINE 1,000 ML IV SCH ×2 (05:48→15:09)
[2019-07-08] MEDS: INSULIN SLIDING SCALE (NOVOLOG) 1 VIAL SQ SCH ×3 (06:03→17:09)
--- NOTE | 2019-07-08 09:03 | PN ---
Progress Note (short form) - Note Progress Note: Renal follow up for ESRD on HD Coverage for Dr. Raphael Seen and examined during dialysis BP stable Access with flow at goal UF goal set to 2L pt is non-verbal but denies any sob, pain Vital Signs Temperature 98.5 F 07/08/19 08:15 Pulse Rate 97 H 07/08/19 08:20 Respiratory Rate 18 07/08/19 08:20 Blood Pressure 141/90 07/08/19 08:20 O2 Sat by Pulse Oximetry (%) 96 07/07/19 21:00 Intake & Output 07/05/19 07/06/19 07/07/19 07/08/19 23:59 23:59 23:59 23:59 Intake Total 1420 1050 780 480 Output Total 1900 Balance 1420 -850 780 480 Weight 103.419 kg 103.782 kg 102.058 kg 103.056 kg NAD awake and alert RRR CTA no LE edema Todays labs pending Current Medications Aspirin (Ecotrin -) 81 mg PO DAILY [facility] Last Admin: 07/07/19 09:15 Dose: Not Given Collagenase (Santyl -) 1 applic TP DAILY [facility]; Protocol Last Admin: 07/07/19 09:15 Dose: 1 applic Heparin Sodium (Porcine) (Heparin -) 5,000 unit SQ TID [facility] Last Admin: 07/08/19 05:44 Dose: 5,000 unit Piperacillin Sod/Tazobactam (Sod 2.25 gm/ Dextrose) 50 mls @ 100 mls/hr IVPB Q8H-IV [facility]; Protocol Last Admin: 07/08/19 01:53 Dose: 100 mls/hr Dextrose/Sodium Chloride (D5-1/2ns -) 1,000 mls @ 40 mls/hr IV ASDIR [facility] Last Admin: 07/08/19 05:48 Dose: 40 mls/hr Sodium Chloride (Normal Saline -) 250 mls @ 3,000 mls/hr IV PRN PRN PRN Reason: Hypotension during Dialysis Stop: 07/08/19 16:13 Insulin Aspart (Novolog Vial Sliding Scale -) 1 vial SQ TIDAC [facility]; Protocol Last Admin: 07/08/19 06:03 Dose: Not Given Nystatin (Nystatin Oral Suspension -) 500,000 units PO Q6HPO [facility] Last Admin: 07/08/19 05:44 Dose: Not Given Impression 1. ESRD 2. sepsis 3. gout 4. HTN 5. CHF 6. DM 7. hx bipolar 8. MOLLY 9. non compliance 10. bacteremia 11. lactic acidosis Plan tolerating dialysis well today UF as tolerated will give NELLA for anemia Continue antibiotics as per primary team Zhou Webb DO
[2019-07-08 09:08] LABS: HEMATOCRIT 25.3 % (35.4-49); HEMOGLOBIN 8.2 GM/dL (11.7-16.9); MCH 26.6 pg (25.7-33.7); MCHC 32.6 g/dl (32.0-35.9); MEAN CELL VOLUME 81.7 fl (80-96); MEAN PLT VOLUME 7.5 fl (7.5-11.1); PLATELET COUNT 350 K/MM3 (134-434); RBC 3.09 M/mm3 (4.00-5.60); RDW 18.5 % (11.9-15.9); WHITE BLOOD COUNT 8.9 K/mm3 (4.0-10.0)
[2019-07-08] MEDS ORDERED: SODIUM CHLORIDE 250 ML IV PRN (09:08)
[2019-07-08 09:28] LABS: ALBUMIN 1.7 g/dl (3.4-5.0); BILIRUBIN,TOTAL 0.5 mg/dL (0.2-1); BLOOD UREA NITROGEN 20.3 mg/dL (7-18); CALCIUM 8.4 mg/dL (8.5-10.1); CREATININE 3.6 mg/dL (0.55-1.3); POTASSIUM 3.2 mmol/L (3.5-5.1); TOT PROT 6.5 g/dl (6.4-8.2)
[2019-07-08] MEDS ORDERED: EPOETIN ALFA 20,000 UNIT/1 ML VIAL IVPUSH ONE (09:45)
[2019-07-08] MEDS: ASPIRIN COATED 81 MG TABLET.EC PO SCH (10:48)
[2019-07-08] MEDS: COLLAGENASE CLOSTRIDIUM HIST. 30 GRAMS TUBE TP SCH ×2 (11:47→19:53)
--- NOTE | 2019-07-08 13:08 | PN ---
Progress Note (short form) - Note Progress Note: pt seen/ examined awake/comfortable chronic ill appearance Had dialysis earlier today. Vital Signs Temp 98.5 F 07/08/19 08:15 Pulse 105 H 07/08/19 11:33 Resp 18 07/08/19 11:33 BP 105/71 07/08/19 11:33 Pulse Ox 96 07/08/19 09:00 Intake & Output 07/07/19 07/08/19 07/08/19 23:59 11:59 23:59 Intake Total 370 780 Output Total 2500 Balance 370 -1720 Weight 227 lb 3.2 oz Intake: IV 320 780 L. HAND 320 280 Normal Saline - 250 ml @ 500 3000 mls/hr IV PRN PRN Rx #:[id number] IVPB 50 Output: Fluid Removed, 2500 Hemodialysis Other: Voiding Method Incontinent Diaper Bowel Movement Yes No # Bowel Movements 1 1 Weight Measurement Method Patient Lift Scale Active Medications Aspirin (Ecotrin -) 81 mg PO DAILY [facility] Last Admin: 07/08/19 10:48 Dose: Not Given Collagenase (Santyl -) 1 applic TP DAILY [facility]; Protocol Last Admin: 07/08/19 11:47 Dose: 1 applic Heparin Sodium (Porcine) (Heparin -) 5,000 unit SQ TID [facility] Last Admin: 07/08/19 05:44 Dose: 5,000 unit Piperacillin Sod/Tazobactam (Sod 2.25 gm/ Dextrose) 50 mls @ 100 mls/hr IVPB Q8H-IV [facility]; Protocol Last Admin: 07/08/19 11:50 Dose: 100 mls/hr Dextrose/Sodium Chloride (D5-1/2ns -) 1,000 mls @ 40 mls/hr IV ASDIR [facility] Last Admin: 07/08/19 05:48 Dose: 40 mls/hr Sodium Chloride (Normal Saline -) 250 mls @ 3,000 mls/hr IV PRN PRN PRN Reason: Hypotension during Dialysis Stop: 07/09/19 09:08 Insulin Aspart (Novolog Vial Sliding Scale -) 1 vial SQ TIDAC [facility]; Protocol Last Admin: 07/08/19 12:01 Dose: Not Given Nystatin (Nystatin Oral Suspension -) 500,000 units PO Q6HPO [facility] Last Admin: 07/08/19 11:54 Dose: Not Given CBC, BMP 07/08/19 08:25 10/19/19 08:25 Microbiology 07/04/19 11:15 Blood Culture - Preliminary Blood - Post-Dialysis NO GROWTH OBTAINED AFTER 96 HOURS, INCUBATION TO CONTINUE FOR 1 DAYS. 07/04/19 11:45 Blood Culture - Preliminary Blood - Post-Dialysis NO GROWTH OBTAINED AFTER 96 HOURS, INCUBATION TO CONTINUE FOR 1 DAYS. Physical Exam Constitutional: Yes: comfortable Eyes: Yes: Conjunctiva Clear, Neck: Yes: Supple. 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 pt needs MRI brain-- 2 physician consent done-->MRI pending Hd per renal - Vascular eval for wounds-- appreciated Noted IR recomendations-->Gtube has been changed but there is abdominal wall defect, skin infection --> place a Jejunostomy tube has to be planned GI to follow d/w RN also will follow Problem List - Problems (1) Sepsis associated hypotension Code(s): A41.9 - SEPSIS, UNSPECIFIED ORGANISM; I95.9 - HYPOTENSION, UNSPECIFIED (2) ESRD (end stage renal disease) on dialysis Code(s): N18.6 - END STAGE RENAL DISEASE; Z99.2 - DEPENDENCE ON RENAL DIALYSIS (3) Septic shock Code(s): A41.9 - SEPSIS, UNSPECIFIED ORGANISM; R65.21 - SEVERE SEPSIS WITH SEPTIC SHOCK (4) Anemia Code(s): D64.9 - ANEMIA, UNSPECIFIED (5) Bipolar 1 disorder Code(s): F31.9 - BIPOLAR DISORDER, UNSPECIFIED (6) Morbid (severe) obesity due to excess calories Code(s): E66.01 - MORBID (SEVERE) OBESITY DUE TO EXCESS CALORIES (7) MOLLY (obstructive sleep apnea) Code(s): G47.33 - OBSTRUCTIVE SLEEP APNEA (ADULT) (PEDIATRIC) (8) Type 2 diabetes mellitus Code(s): E11.9 - TYPE 2 DIABETES MELLITUS WITHOUT COMPLICATIONS Qualifiers: Diabetes mellitus shelter insulin use: unspecified shelter insulin use status Diabetes mellitus complication status: with unspecified complications
--- NOTE | 2019-07-08 13:27 | PN ---
Progress Note, Physician History of Present Illness: PULMONARY NO CHANGE,AWAKE.-RESP DISTRESS - Current Medication List Current Medications: Active Medications Aspirin (Ecotrin -) 81 mg PO DAILY [facility] Last Admin: 07/08/19 10:48 Dose: Not Given Collagenase (Santyl -) 1 applic TP DAILY [facility]; Protocol Last Admin: 07/08/19 11:47 Dose: 1 applic Heparin Sodium (Porcine) (Heparin -) 5,000 unit SQ TID [facility] Last Admin: 07/08/19 05:44 Dose: 5,000 unit Piperacillin Sod/Tazobactam (Sod 2.25 gm/ Dextrose) 50 mls @ 100 mls/hr IVPB Q8H-IV [facility]; Protocol Last Admin: 07/08/19 11:50 Dose: 100 mls/hr Dextrose/Sodium Chloride (D5-1/2ns -) 1,000 mls @ 40 mls/hr IV ASDIR [facility] Last Admin: 07/08/19 05:48 Dose: 40 mls/hr Sodium Chloride (Normal Saline -) 250 mls @ 3,000 mls/hr IV PRN PRN PRN Reason: Hypotension during Dialysis Stop: 07/09/19 09:08 Insulin Aspart (Novolog Vial Sliding Scale -) 1 vial SQ TIDAC [facility]; Protocol Last Admin: 07/08/19 12:01 Dose: Not Given Nystatin (Nystatin Oral Suspension -) 500,000 units PO Q6HPO [facility] Last Admin: 07/08/19 11:54 Dose: Not Given - Objective Vital Signs: Vital Signs Temperature 98.5 F 07/08/19 08:15 Pulse Rate 105 H 07/08/19 11:33 Respiratory Rate 18 07/08/19 11:33 Blood Pressure 105/71 07/08/19 11:33 O2 Sat by Pulse Oximetry (%) 96 07/08/19 09:00 Constitutional: Yes: Well Nourished, Calm Eyes: Yes: WNL HENT: Yes: WNL Neck: Yes: WNL Cardiovascular: Yes: Regular Rate and Rhythm, S1, S2 Respiratory: Yes: Diminished Gastrointestinal: Yes: Normal Bowel Sounds, Soft Extremities: Yes: WNL Edema: No Labs: CBC, BMP 07/08/19 08:25 07/08/19 08:25 INR, PTT INR 1.35 (0.83-1.09) H 07/04/19 05:50 Problem List - Problems (1) Elevated LFTs Code(s): R94.5 - ABNORMAL RESULTS OF LIVER FUNCTION STUDIES (2) Pneumonia Code(s): J18.9 - PNEUMONIA, UNSPECIFIED ORGANISM Qualifiers: Pneumonia type: due to unspecified organism Laterality: bilateral Lung location: lower lobe of lung Qualified Code(s): J18.1 - Lobar pneumonia, unspecified organism (3) Schizo affective schizophrenia Code(s): F25.0 - SCHIZOAFFECTIVE DISORDER, BIPOLAR TYPE (4) Sepsis Code(s): A41.9 - SEPSIS, UNSPECIFIED ORGANISM Qualifiers: Sepsis type: sepsis due to unspecified organism Sepsis acute organ dysfunction status: unspecified Qualified Code(s): A41.9 - Sepsis, unspecified organism (5) Stage 4 chronic kidney disease Code(s): N18.4 - CHRONIC KIDNEY DISEASE, STAGE 4 (SEVERE) (6) Acute metabolic encephalopathy Code(s): G93.41 - METABOLIC ENCEPHALOPATHY (7) Chronic diastolic heart failure Code(s): I50.32 - CHRONIC DIASTOLIC (CONGESTIVE) HEART FAILURE (8) Anemia Code(s): D64.9 - ANEMIA, UNSPECIFIED Qualifiers: Anemia type: unspecified type Qualified Code(s): D64.9 - Anemia, unspecified (9) Hypertension Code(s): I10 - ESSENTIAL (PRIMARY) HYPERTENSION Qualifiers: Hypertension type: unspecified Qualified Code(s): I10 - Essential (primary ) hypertension Assessment/Plan A/P Infected Decubitus Ulcers r/o Pneumonia r/o G tube site Infection Gram Positive Bacteremia Septic Shock Lactic Acidosis ESRD on HD COPD LV Diastolic Dysfunction HTN Hyperlipidemia Bipolar Disorder Schizophrenia Anemia - ABX - HD per renal - O2 to keep SpO2 >90% - wound care - DVT prophylaxis DR MONTELONGO
[2019-07-09] MEDS: NYSTATIN 500,000 UNITS/5 ML SUSPENSION PO SCH ×4 (01:08→17:12)
[2019-07-09] MEDS ORDERED: DEXTROSE 5%-WATER - 50 ML IVPB ONE ×3 (01:11→17:28)
[2019-07-09] MEDS ORDERED: PIPERACILLIN/TAZOBACTAM 2.25 GM VIAL IVPB ONE ×3 (01:11→17:28)
[2019-07-09] MEDS: PIPERACILLIN/TAZOB 2.25 GM 2.25 GM in DEXTROSE 5%-WATER - 50 ML IVPB SCH ×3 (01:33→17:29)
[2019-07-09] MEDS: HEPARIN NA (PORCINE) 5,000 UNITS/ML 1ML VIAL SQ SCH ×3 (06:02→22:00)
[2019-07-09 07:00] LABS: BLOOD UREA NITROGEN 13.6 mg/dL (7-18); CALCIUM 8.5 mg/dL (8.5-10.1); CREATININE 3.1 mg/dL (0.55-1.3); POTASSIUM 3.6 mmol/L (3.5-5.1)
[2019-07-09] MEDS: INSULIN SLIDING SCALE (NOVOLOG) 1 VIAL SQ SCH ×3 (07:25→17:12)
[2019-07-09] MEDS: COLLAGENASE CLOSTRIDIUM HIST. 30 GRAMS TUBE TP SCH (09:36)
[2019-07-09] MEDS: ASPIRIN COATED 81 MG TABLET.EC PO SCH (09:36)
--- NOTE | 2019-07-09 13:29 | PN ---
Progress Note, ENTERTAINMENT AGENT - Note Progress Note: Selected Entries 07/09/19 08:36 Lunch 0 Laboratory Tests 07/08/19 08:25 WBC 8.9 Puree/nectar thick liquid ordered. last week, pt accepted all of mashed potatoes only, fed slowly, no cough or vocal wetness. 10 minutes later, it all came back out, did not smell like vomit , no cough. Refusing most for staff, Today accepted 1 sip of nectar oj and 2 bites pudding. Brisk swallow but then refuses more. Stasis in pharynx? reduced UES relaxation? Pt too large to fit in fluoro machine for mbs. Pursue JT for nutrition. Possibly FEES exam in future.
--- NOTE | 2019-07-09 13:47 | PN ---
Progress Note (short form) - Note Progress Note: pt seen/ examined awake chronic ill appearance No distress Vital Signs Temp 98 F 07/09/19 10:17 Pulse 107 H 07/09/19 10:17 Resp 18 07/09/19 10:17 BP 137/96 07/09/19 10:17 Pulse Ox 95 07/09/19 08:36 Intake & Output 07/08/19 07/09/19 07/09/19 23:59 11:59 23:59 Intake Total 168 Balance 168 Weight 220 lb 2 oz Intake: IV 168 L. HAND 168 Other: Voiding Method Diaper Incontinent Bowel Movement Yes Yes Weight Measurement Method Patient Lift Scale Active Medications Aspirin (Ecotrin -) 81 mg PO DAILY [facility] Last Admin: 07/09/19 09:36 Dose: Not Given Collagenase (Santyl -) 1 applic TP DAILY [facility]; Protocol Last Admin: 07/09/19 09:36 Dose: 1 applic Heparin Sodium (Porcine) (Heparin -) 5,000 unit SQ TID [facility] Last Admin: 07/09/19 06:02 Dose: 5,000 unit Piperacillin Sod/Tazobactam (Sod 2.25 gm/ Dextrose) 50 mls @ 100 mls/hr IVPB Q8H-IV [facility]; Protocol Last Admin: 07/09/19 09:36 Dose: 100 mls/hr Dextrose/Sodium Chloride (D5-1/2ns -) 1,000 mls @ 40 mls/hr IV ASDIR [facility] Last Admin: 07/08/19 15:09 Dose: Not Given Insulin Aspart (Novolog Vial Sliding Scale -) 1 vial SQ TIDAC [facility]; Protocol Last Admin: 07/09/19 11:32 Dose: Not Given Nystatin (Nystatin Oral Suspension -) 500,000 units PO Q6HPO [facility] Last Admin: 07/09/19 13:08 Dose: Not Given CBC, BMP 07/08/19 08:25 07/09/19 05:45 Physical Exam Constitutional: Yes: comfortable. chronic ill appearance Eyes: Yes: Conjunctiva Clear, Neck: Yes: Supple. 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 pt needs MRI brain-- 2 physician consent done-->MRI pending Hd per renal - Vascular eval for wounds-- appreciated Noted IR recomendations-->Gtube has been changed but there is abdominal wall defect, skin infection --> place a Jejunostomy tube has to be planned GI to follow d/w RN also will follow Problem List - Problems (1) Sepsis associated hypotension Code(s): A41.9 - SEPSIS, UNSPECIFIED ORGANISM; I95.9 - HYPOTENSION, UNSPECIFIED (2) ESRD (end stage renal disease) on dialysis Code(s): N18.6 - END STAGE RENAL DISEASE; Z99.2 - DEPENDENCE ON RENAL DIALYSIS (3) Septic shock Code(s): A41.9 - SEPSIS, UNSPECIFIED ORGANISM; R65.21 - SEVERE SEPSIS WITH SEPTIC SHOCK (4) Anemia Code(s): D64.9 - ANEMIA, UNSPECIFIED (5) Bipolar 1 disorder Code(s): F31.9 - BIPOLAR DISORDER, UNSPECIFIED (6) Morbid (severe) obesity due to excess calories Code(s): E66.01 - MORBID (SEVERE) OBESITY DUE TO EXCESS CALORIES (7) MOLLY (obstructive sleep apnea) Code(s): G47.33 - OBSTRUCTIVE SLEEP APNEA (ADULT) (PEDIATRIC) (8) Type 2 diabetes mellitus Code(s): E11.9 - TYPE 2 DIABETES MELLITUS WITHOUT COMPLICATIONS Qualifiers: Diabetes mellitus residential insulin use: unspecified residential insulin use status Diabetes mellitus complication status: with unspecified complications
--- NOTE | 2019-07-09 14:25 | PN ---
Progress Note, Physician History of Present Illness: PULMONARY AWAKE,NO DISTRESS,-SOB - Current Medication List Current Medications: Active Medications Aspirin (Ecotrin -) 81 mg PO DAILY [facility] Last Admin: 07/09/19 09:36 Dose: Not Given Collagenase (Santyl -) 1 applic TP DAILY [facility]; Protocol Last Admin: 07/09/19 09:36 Dose: 1 applic Heparin Sodium (Porcine) (Heparin -) 5,000 unit SQ TID [facility] Last Admin: 07/09/19 06:02 Dose: 5,000 unit Piperacillin Sod/Tazobactam (Sod 2.25 gm/ Dextrose) 50 mls @ 100 mls/hr IVPB Q8H-IV [facility]; Protocol Last Admin: 07/09/19 09:36 Dose: 100 mls/hr Dextrose/Sodium Chloride (D5-1/2ns -) 1,000 mls @ 40 mls/hr IV ASDIR [facility] Last Admin: 07/08/19 15:09 Dose: Not Given Insulin Aspart (Novolog Vial Sliding Scale -) 1 vial SQ TIDAC [facility]; Protocol Last Admin: 07/09/19 11:32 Dose: Not Given Nystatin (Nystatin Oral Suspension -) 500,000 units PO Q6HPO [facility] Last Admin: 07/09/19 13:08 Dose: Not Given - Objective Vital Signs: Vital Signs Temperature 97.8 F 07/09/19 14:03 Pulse Rate 103 H 07/09/19 14:03 Respiratory Rate 20 07/09/19 14:03 Blood Pressure 150/85 07/09/19 14:03 O2 Sat by Pulse Oximetry (%) 95 07/09/19 08:36 Constitutional: Yes: Well Nourished, Calm Eyes: Yes: WNL HENT: Yes: WNL Neck: Yes: WNL Cardiovascular: Yes: Regular Rate and Rhythm, S1, S2 Respiratory: Yes: Diminished Gastrointestinal: Yes: Normal Bowel Sounds, Soft Extremities: Yes: WNL Edema: No Labs: CBC, BMP 07/09/19 05:45 Problem List - Problems (1) Elevated LFTs Code(s): R94.5 - ABNORMAL RESULTS OF LIVER FUNCTION STUDIES (2) Pneumonia Code(s): J18.9 - PNEUMONIA, UNSPECIFIED ORGANISM Qualifiers: Pneumonia type: due to unspecified organism Laterality: bilateral Lung location: lower lobe of lung Qualified Code(s): J18.1 - Lobar pneumonia, unspecified organism (3) Schizo affective schizophrenia Code(s): F25.0 - SCHIZOAFFECTIVE DISORDER, BIPOLAR TYPE (4) Sepsis Code(s): A41.9 - SEPSIS, UNSPECIFIED ORGANISM Qualifiers: Sepsis type: sepsis due to unspecified organism Sepsis acute organ dysfunction status: unspecified Qualified Code(s): A41.9 - Sepsis, unspecified organism (5) Stage 4 chronic kidney disease Code(s): N18.4 - CHRONIC KIDNEY DISEASE, STAGE 4 (SEVERE) (6) Acute metabolic encephalopathy Code(s): G93.41 - METABOLIC ENCEPHALOPATHY (7) Chronic diastolic heart failure Code(s): I50.32 - CHRONIC DIASTOLIC (CONGESTIVE) HEART FAILURE (8) Anemia Code(s): D64.9 - ANEMIA, UNSPECIFIED Qualifiers: Anemia type: unspecified type Qualified Code(s): D64.9 - Anemia, unspecified (9) Hypertension Code(s): I10 - ESSENTIAL (PRIMARY) HYPERTENSION Qualifiers: Hypertension type: unspecified Qualified Code(s): I10 - Essential (primary ) hypertension Assessment/Plan A/P Infected Decubitus Ulcers r/o Pneumonia r/o G tube site Infection Gram Positive Bacteremia Septic Shock Lactic Acidosis ESRD on HD COPD LV Diastolic Dysfunction HTN Hyperlipidemia Bipolar Disorder Schizophrenia Anemia - ABX PER ID - HD per renal - O2 to keep SpO2 >90% - wound care - DVT prophylaxis DR MONTELONGO
[2019-07-09] MEDS: DEXTROSE 5%-0.45% SALINE 1,000 ML IV SCH (15:13)
[2019-07-10] MEDS ORDERED: PIPERACILLIN/TAZOBACTAM 2.25 GM VIAL IVPB ONE ×3 (00:55→18:31)
[2019-07-10] MEDS ORDERED: DEXTROSE 5%-WATER - 50 ML IVPB ONE ×3 (00:56→18:31)
[2019-07-10] MEDS: NYSTATIN 500,000 UNITS/5 ML SUSPENSION PO SCH ×4 (01:07→17:28)
[2019-07-10] MEDS: PIPERACILLIN/TAZOB 2.25 GM 2.25 GM in DEXTROSE 5%-WATER - 50 ML IVPB SCH ×3 (01:08→18:37)
[2019-07-10] MEDS: HEPARIN NA (PORCINE) 5,000 UNITS/ML 1ML VIAL SQ SCH ×3 (05:14→23:13)
[2019-07-10] MEDS: INSULIN SLIDING SCALE (NOVOLOG) 1 VIAL SQ SCH ×3 (06:10→17:08)
--- NOTE | 2019-07-10 08:26 | PN ---
Progress Note, Physician History of Present Illness: GI FOLLOW UP NOTE Patient examined and case discussed with Dr Fernandez Patient awake and alert. Purulent drainage noted from PEG tube site. No reports of nausea, vomiting, diarrhea, constipation, rectal bleeding or melena from RN. Patient evaluated by MECHANICAL ENGINEERING SPECIALIST and reviewed recommendations from swallow eval. - Current Medication List Current Medications: Active Medications Aspirin (Ecotrin -) 81 mg PO DAILY [facility] Last Admin: 07/09/19 09:36 Dose: Not Given Collagenase (Santyl -) 1 applic TP DAILY [facility]; Protocol Last Admin: 07/09/19 09:36 Dose: 1 applic Heparin Sodium (Porcine) (Heparin -) 5,000 unit SQ TID [facility] Last Admin: 07/10/19 05:14 Dose: 5,000 unit Piperacillin Sod/Tazobactam (Sod 2.25 gm/ Dextrose) 50 mls @ 100 mls/hr IVPB Q8H-IV [facility]; Protocol Last Admin: 07/10/19 01:08 Dose: 100 mls/hr Dextrose/Sodium Chloride (D5-1/2ns -) 1,000 mls @ 40 mls/hr IV ASDIR [facility] Last Admin: 07/09/19 15:13 Dose: 40 mls/hr Insulin Aspart (Novolog Vial Sliding Scale -) 1 vial SQ TIDAC [facility]; Protocol Last Admin: 07/10/19 06:10 Dose: Not Given Nystatin (Nystatin Oral Suspension -) 500,000 units PO Q6HPO [facility] Last Admin: 07/10/19 05:15 Dose: Not Given - Objective Vital Signs: Vital Signs Temperature 97.9 F 07/10/19 05:00 Pulse Rate 113 H 07/10/19 05:00 Respiratory Rate 20 07/10/19 05:00 Blood Pressure 148/87 07/10/19 05:00 O2 Sat by Pulse Oximetry (%) 95 07/09/19 21:00 Constitutional: Yes: No Distress, Calm Eyes: Yes: Conjunctiva Clear HENT: Yes: Atraumatic Cardiovascular: Yes: Regular Rate and Rhythm Respiratory: Yes: Regular, CTA Bilaterally Gastrointestinal: Yes: Normal Bowel Sounds, Soft, Other (PEG tube) Wound/Incision: Yes: Other (purulent drainage from PEG tube site) Neurological: Yes: Alert, Pre-Existing Deficit Psychiatric: Yes: Alert Labs: CBC, BMP 07/08/19 08:25 07/09/19 05:45 INR, PTT INR 1.35 (0.83-1.09) H 07/04/19 05:50 Problem List - Problems (1) Infection of PEG site Assessment/Plan: -cleanse area with Betadine daily -daily dressing change -Zosyn -secondary to abscess PEG Site -IR Recommendations noted a large defect seen in the anterior abdominal wall and skin surrounding the G-tube, the degree of skin and abdominal wall defect and apparent infection and inflammation makes healing a difficult process due to continuous pericatheter leak of gastric contents, best solution is remove the G-tube, place NG tube to LWS and give gastrostomy site time to heal and place new low profile gastrostomy tube in different location, alternatively placement of jejunostomy tube and removal of existing G-tube to be another solution Code(s): K94.22 - GASTROSTOMY INFECTION
--- NOTE | 2019-07-10 10:05 | PN ---
Progress Note (short form) - Note Progress Note: 59 year old male history of ESRD,HTN,HLD,CHF,COPD,Gout, Bipolar disorder, Schizophrenia. Patient has been admitted to hospital for mental tatus change and Pneurmonia . Patient has ct head showed left occpital acute to subacute stroke. He is on aspirin. Patient has liver enzyme raised. I spoke to house staff and nursing staff. Patient is alert and follow simple command, mri of brain did not show any acute infarct. NEUROLOGICAL EXAMINATION Alert and oriented x 1 eomi, pupils reactivef ,? mild right facial palsy moving upper extremity more than lower extremity has has no hemiparesis reflex are generalized diminished ct head reviewed showed subacute left occpital stroke mri of brain unremarkable and no acute stroke, there is old left occpital stroke Assessment/Plan Acute mental status change seems to be metabolic encephalopathy ( septicemia, hypotension, renal failure ) and pateint has left occpital stroke , it is chronic , no acute strok eidentified on mri of brain He seems to have severe critical illness neuropathy and deconditioning leading to weakness in lower extremity Plan: suggest to continue aspirin, hold statin as liver enzyme are high - PT, SPEECH , Dvt prophylaxis, waiting for placement Thanking you so much Hever Coe MD
--- NOTE | 2019-07-10 10:46 | PN ---
Progress Note (short form) - Note Progress Note: PULMONARY Denies shortness of breath or chest pain. No fevers recorded. Vital Signs Period Temp Pulse Resp BP Sys/Castillo Pulse Ox Last 24 Hr 97.8 F-98.6 F 100-113 18-20 124-150/70-87 95 Gen: NAD at rest Heart: RRR Lung: decreased breath sounds at the bases Abd: soft, +PEG Ext: no edema CBC, BMP 07/08/19 08:25 07/09/19 05:45 Active Medications Aspirin (Ecotrin -) 81 mg PO DAILY [facility] Last Admin: 07/09/19 09:36 Dose: Not Given Collagenase (Santyl -) 1 applic TP DAILY [facility]; Protocol Last Admin: 07/09/19 09:36 Dose: 1 applic Heparin Sodium (Porcine) (Heparin -) 5,000 unit SQ TID [facility] Last Admin: 07/10/19 05:14 Dose: 5,000 unit Piperacillin Sod/Tazobactam (Sod 2.25 gm/ Dextrose) 50 mls @ 100 mls/hr IVPB Q8H-IV [facility]; Protocol Last Admin: 07/10/19 01:08 Dose: 100 mls/hr Dextrose/Sodium Chloride (D5-1/2ns -) 1,000 mls @ 40 mls/hr IV ASDIR [facility] Last Admin: 07/09/19 15:13 Dose: 40 mls/hr Insulin Aspart (Novolog Vial Sliding Scale -) 1 vial SQ TIDAC [facility]; Protocol Last Admin: 07/10/19 06:10 Dose: Not Given Nystatin (Nystatin Oral Suspension -) 500,000 units PO Q6HPO [facility] Last Admin: 07/10/19 05:15 Dose: Not Given A/P Infected Decubitus Ulcers r/o Pneumonia r/o G tube site Infection Gram Positive Bacteremia Septic Shock improved Lactic Acidosis resolved ESRD on HD COPD LV Diastolic Dysfunction HTN Hyperlipidemia Bipolar Disorder Schizophrenia Anemia - conmplete antibiotics - HD per renal - O2 to keep SpO2 >90% - wound care - DVT prophylaxis
[2019-07-10] MEDS: ASPIRIN COATED 81 MG TABLET.EC PO SCH (11:20)
[2019-07-10] MEDS: COLLAGENASE CLOSTRIDIUM HIST. 30 GRAMS TUBE TP SCH (11:24)
[2019-07-10] MEDS ORDERED: SODIUM CHLORIDE 250 ML IV PRN (11:35)
[2019-07-10] MEDS ORDERED: DEXTROSE 5%-0.45% SALINE 1,000 ML IV SCH (11:35)
--- NOTE | 2019-07-10 11:35 | PN ---
Progress Note, Physician History of Present Illness: Pt seen and examined at bedside. He is awake and appears comfortable. He has poor PO intake. - Current Medication List Current Medications: Active Medications Aspirin (Ecotrin -) 81 mg PO DAILY [facility] Last Admin: 07/10/19 11:20 Dose: Not Given Collagenase (Santyl -) 1 applic TP DAILY [facility]; Protocol Last Admin: 07/10/19 11:24 Dose: 1 applic Heparin Sodium (Porcine) (Heparin -) 5,000 unit SQ TID [facility] Last Admin: 07/10/19 05:14 Dose: 5,000 unit Piperacillin Sod/Tazobactam (Sod 2.25 gm/ Dextrose) 50 mls @ 100 mls/hr IVPB Q8H-IV [facility]; Protocol Last Admin: 07/10/19 11:20 Dose: 100 mls/hr Dextrose/Sodium Chloride (D5-1/2ns -) 1,000 mls @ 40 mls/hr IV ASDIR [facility] Last Admin: 07/09/19 15:13 Dose: 40 mls/hr Insulin Aspart (Novolog Vial Sliding Scale -) 1 vial SQ TIDAC [facility]; Protocol Last Admin: 07/10/19 06:10 Dose: Not Given Nystatin (Nystatin Oral Suspension -) 500,000 units PO Q6HPO [facility] Last Admin: 07/10/19 05:15 Dose: Not Given - Objective Vital Signs: Vital Signs Temperature 97.9 F 07/10/19 05:00 Pulse Rate 113 H 07/10/19 05:00 Respiratory Rate 20 07/10/19 05:00 Blood Pressure 148/87 07/10/19 05:00 O2 Sat by Pulse Oximetry (%) 95 07/09/19 21:00 Constitutional: Yes: Calm Eyes: Yes: Conjunctiva Clear HENT: Yes: Atraumatic Cardiovascular: Yes: S1, S2 Respiratory: Yes: CTA Bilaterally Gastrointestinal: Yes: Normal Bowel Sounds, Soft, Abdomen, Obese Musculoskeletal: Yes: Muscle Weakness Edema: No Neurological: Yes: Confusion Labs: CBC, BMP 07/08/19 08:25 07/09/19 05:45 INR, PTT INR 1.35 (0.83-1.09) H 07/04/19 05:50 Problem List - Problems (1) Anemia Code(s): D64.9 - ANEMIA, UNSPECIFIED Qualifiers: Anemia type: unspecified type Qualified Code(s): D64.9 - Anemia, unspecified (2) ESRD (end stage renal disease) on dialysis Code(s): N18.6 - END STAGE RENAL DISEASE; Z99.2 - DEPENDENCE ON RENAL DIALYSIS Assessment/Plan Current Medications Generic Name Dose Route Start Last Admin Trade Name Freq PRN Reason Stop Dose Admin Aspirin 81 mg 07/05/19 10:00 07/10/19 11:20 Ecotrin - PO Not Given DAILY [facility] Collagenase 1 applic 07/05/19 10:00 07/10/19 11:24 Santyl - TP 1 applic DAILY [facility] Administration Protocol Heparin Sodium (Porcine) 5,000 unit 07/05/19 06:00 07/10/19 05:14 Heparin - SQ 5,000 unit TID [facility] Administration Piperacillin Sod/Tazobactam 50 mls @ 100 mls/hr 07/05/19 02:00 07/10/19 11:20 Sod 2.25 gm/ Dextrose IVPB 100 mls/hr Q8H-IV [facility] Administration Protocol Dextrose/Sodium Chloride 1,000 mls @ 40 mls/hr 07/05/19 13:35 07/09/19 15:13 D5-1/2ns - IV 40 mls/hr ASDIR [facility] Administration Insulin Aspart 1 vial 07/05/19 07:00 07/10/19 06:10 Novolog Vial Sliding Scale - SQ Not Given TIDAC [facility] Protocol Nystatin 500,000 units 07/05/19 00:00 07/10/19 05:15 Nystatin Oral Suspension - PO Not Given Q6HPO [facility] Impression 1. ESRD 2. sepsis 3. gout 4. HTN 5. CHF 6. DM 7. hx bipolar 8. MOLLY 9. non compliance 10. bacteremia 11. lactic acidosis Plan - HD tomorrow - po intake poor - gi/surgery follow up - abx per primary team - renal diet
--- NOTE | 2019-07-10 11:47 | PN ---
Progress Note, Physician History of Present Illness: AWAKE. BUT NOT CONVERSANT OFFERS NO COMPLAINTS TEMPS DOWN AFEBRILE WBC IMPROVED WNL BC + SCN 1 BOTTLE - Current Medication List Current Medications: Active Medications Aspirin (Ecotrin -) 81 mg PO DAILY [facility] Last Admin: 07/10/19 11:20 Dose: Not Given Collagenase (Santyl -) 1 applic TP DAILY [facility]; Protocol Last Admin: 07/10/19 11:24 Dose: 1 applic Epoetin Shawn (Epogen -) 12,000 unit IVPUSH ONCE ONE Stop: 07/11/19 11:36 Heparin Sodium (Porcine) (Heparin -) 5,000 unit SQ TID [facility] Last Admin: 07/10/19 05:14 Dose: 5,000 unit Piperacillin Sod/Tazobactam (Sod 2.25 gm/ Dextrose) 50 mls @ 100 mls/hr IVPB Q8H-IV [facility]; Protocol Last Admin: 07/10/19 11:20 Dose: 100 mls/hr Dextrose/Sodium Chloride (D5-1/2ns -) 1,000 mls @ 30 mls/hr IV ASDIR [facility] Sodium Chloride (Normal Saline -) 250 mls @ 3,000 mls/hr IV PRN PRN PRN Reason: Hypotension during Dialysis Stop: 07/11/19 11:35 Insulin Aspart (Novolog Vial Sliding Scale -) 1 vial SQ TIDAC [facility]; Protocol Last Admin: 07/10/19 06:10 Dose: Not Given Nystatin (Nystatin Oral Suspension -) 500,000 units PO Q6HPO [facility] Last Admin: 07/10/19 05:15 Dose: Not Given - Objective Vital Signs: Vital Signs Temperature 97.9 F 07/10/19 05:00 Pulse Rate 113 H 07/10/19 05:00 Respiratory Rate 20 07/10/19 05:00 Blood Pressure 148/87 07/10/19 05:00 O2 Sat by Pulse Oximetry (%) 95 07/09/19 21:00 Constitutional: Yes: Obese Cardiovascular: Yes: Regular Rate and Rhythm, S1, S2 Respiratory: Yes: Diminished Gastrointestinal: Yes: Normal Bowel Sounds, Soft. No: Tenderness Edema: Yes Labs: CBC, BMP 07/08/19 08:25 07/09/19 05:45 INR, PTT INR 1.35 (0.83-1.09) H 07/04/19 05:50 Assessment/Plan SEPSIS R/O SEPTIC SHOCK RESOLVED + BC SCN 1 BOTTLE PROBABLE CONTAMINANT GT SITE INFECTION ?PNEUMONIA ESRD FEVER/ LEUKOCYTOSIS IMPROVED CONTINUE ZOSYN DAY#8 LOCAL WOUND CARE
--- NOTE | 2019-07-10 13:09 | PN ---
Progress Note (short form) - Note Progress Note: Pt seen/ examined awake/ comfortable. Vital Signs Temp 97.9 F 07/10/19 05:00 Pulse 113 H 07/10/19 05:00 Resp 20 07/10/19 05:00 BP 148/87 07/10/19 05:00 Pulse Ox 95 07/09/19 21:00 Intake & Output 07/09/19 07/10/19 07/10/19 23:59 11:59 23:59 Intake Total 0 360 Balance 0 360 Weight 221 lb Intake: IV 360 L. HAND 360 Oral 0 0 Other: Voiding Method Incontinent Incontinent # Unmeasured Voids Hopkins 2 Bowel Movement Yes Yes # Bowel Movements 1 Weight Measurement Method Patient Lift Scale Active Medications Aspirin (Ecotrin -) 81 mg PO DAILY [facility] Last Admin: 07/10/19 11:20 Dose: Not Given Collagenase (Santyl -) 1 applic TP DAILY [facility]; Protocol Last Admin: 07/10/19 11:24 Dose: 1 applic Epoetin Shawn (Epogen -) 12,000 unit IVPUSH ONCE ONE Stop: 07/11/19 11:36 Heparin Sodium (Porcine) (Heparin -) 5,000 unit SQ TID [facility] Last Admin: 07/10/19 05:14 Dose: 5,000 unit Piperacillin Sod/Tazobactam (Sod 2.25 gm/ Dextrose) 50 mls @ 100 mls/hr IVPB Q8H-IV [facility]; Protocol Last Admin: 07/10/19 11:20 Dose: 100 mls/hr Sodium Chloride (Normal Saline -) 250 mls @ 3,000 mls/hr IV PRN PRN PRN Reason: Hypotension during Dialysis Stop: 07/11/19 11:35 Amino Acids (Clinimix -) 1,000 mls @ 42 mls/hr IV Q24H [facility] Fat Emulsion Intravenous (Intralipid -) 500 mls @ 41.667 mls/hr IV DAILY@2200 [facility] Insulin Aspart (Novolog Vial Sliding Scale -) 1 vial SQ TIDAC [facility]; Protocol Last Admin: 07/10/19 12:35 Dose: Not Given Nystatin (Nystatin Oral Suspension -) 500,000 units PO Q6HPO [facility] Last Admin: 07/10/19 12:36 Dose: Not Given CBC, BMP 07/08/19 08:25 07/09/19 05:45 Physical Exam Constitutional: Yes: comfortable. chronic ill appearance Eyes: Yes: Conjunctiva Clear, Neck: Yes: Supple. 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 pt needs MRI brain-- 2 physician consent done-->MRI pending Hd per renal - Vascular eval for wounds-- appreciated Noted IR recomendations-->Gtube has been changed but there is abdominal wall defect, skin infection --> place a Jejunostomy tube has to be planned GI to follow d/w RN also d/c fluids start on clinimax / lipids surgical consult -- for feeding tube d/w RN also as well as Dr. Aleman Problem List - Problems (1) Sepsis associated hypotension Code(s): A41.9 - SEPSIS, UNSPECIFIED ORGANISM; I95.9 - HYPOTENSION, UNSPECIFIED (2) ESRD (end stage renal disease) on dialysis Code(s): N18.6 - END STAGE RENAL DISEASE; Z99.2 - DEPENDENCE ON RENAL DIALYSIS (3) Septic shock Code(s): A41.9 - SEPSIS, UNSPECIFIED ORGANISM; R65.21 - SEVERE SEPSIS WITH SEPTIC SHOCK (4) Anemia Code(s): D64.9 - ANEMIA, UNSPECIFIED (5) Bipolar 1 disorder Code(s): F31.9 - BIPOLAR DISORDER, UNSPECIFIED (6) Morbid (severe) obesity due to excess calories Code(s): E66.01 - MORBID (SEVERE) OBESITY DUE TO EXCESS CALORIES (7) MOLLY (obstructive sleep apnea) Code(s): G47.33 - OBSTRUCTIVE SLEEP APNEA (ADULT) (PEDIATRIC) (8) Type 2 diabetes mellitus Code(s): E11.9 - TYPE 2 DIABETES MELLITUS WITHOUT COMPLICATIONS Qualifiers: Diabetes mellitus terminal gauger insulin use: unspecified prison insulin use status Diabetes mellitus complication status: with unspecified complications
--- NOTE | 2019-07-10 13:28 | PN ---
Progress Note, Physician Chief Complaint: PEG site infection History of Present Illness: 59 yo male PMH morbidly obese male non-verbal with a PMH of ESRD (, , ), HTN, HLD, CHF, COPD, gout, Bipolar Disorder, and schizophrenia presented to ED with SIRs and fever. He had a PEG placed on 04/[address] Santos Fernandez. PEG was echanged by Dr. Portillo IR on 07/05. CT scan shows it to be in place but there is soft tissue stranding and air in the adjacent tract. He also has large pleural effusions which may be his septic focus. we were called to re- assess. - Current Medication List Current Medications: Active Medications Aspirin (Ecotrin -) 81 mg PO DAILY [facility] Last Admin: 07/10/19 11:20 Dose: Not Given Collagenase (Santyl -) 1 applic TP DAILY [facility]; Protocol Last Admin: 07/10/19 11:24 Dose: 1 applic Epoetin Shawn (Epogen -) 12,000 unit IVPUSH ONCE ONE Stop: 07/11/19 11:36 Heparin Sodium (Porcine) (Heparin -) 5,000 unit SQ TID [facility] Last Admin: 07/10/19 05:14 Dose: 5,000 unit Piperacillin Sod/Tazobactam (Sod 2.25 gm/ Dextrose) 50 mls @ 100 mls/hr IVPB Q8H-IV [facility]; Protocol Last Admin: 07/10/19 11:20 Dose: 100 mls/hr Sodium Chloride (Normal Saline -) 250 mls @ 3,000 mls/hr IV PRN PRN PRN Reason: Hypotension during Dialysis Stop: 07/11/19 11:35 Amino Acids (Clinimix -) 1,000 mls @ 42 mls/hr IV Q24H [facility] Fat Emulsion Intravenous (Intralipid -) 500 mls @ 41.667 mls/hr IV DAILY@2200 [facility] Insulin Aspart (Novolog Vial Sliding Scale -) 1 vial SQ TIDAC [facility]; Protocol Last Admin: 07/10/19 12:35 Dose: Not Given Nystatin (Nystatin Oral Suspension -) 500,000 units PO Q6HPO [facility] Last Admin: 07/10/19 12:36 Dose: Not Given - Objective Vital Signs: Vital Signs Temperature 98 F 07/10/19 09:00 Pulse Rate 87 07/10/19 09:00 Respiratory Rate 18 07/10/19 09:00 Blood Pressure 135/87 07/10/19 09:00 O2 Sat by Pulse Oximetry (%) 95 07/10/19 09:00 Vital Signs Period Temp Pulse Resp BP Sys/Castillo Pulse Ox Last 24 Hr 97.8 F-98.6 F 87-113 18-20 124-150/70-87 95-95 Intake & Output 07/09/19 07/10/19 07/10/19 23:59 07:59 15:59 Intake Total 360 Balance 360 Weight 221 lb Intake: IV 360 L. HAND 360 Oral 0 Other: Voiding Method Incontinent Incontinent # Unmeasured Voids Hopkins 2 Bowel Movement Yes Yes Weight Measurement Method Patient Lift Scale Constitutional: Yes: Well Nourished, No Distress, Calm Eyes: Yes: Conjunctiva Clear, EOM Intact HENT: Yes: Atraumatic, Normocephalic Neck: Yes: Supple, Trachea Midline Cardiovascular: Yes: Regular Rate and Rhythm, S1, S2 Respiratory: Yes: Regular, CTA Bilaterally Gastrointestinal: Yes: Normal Bowel Sounds, Soft, Abdomen, Obese, Distention ...Rectal Exam: Yes: Deferred Genitourinary: No: CVA Tenderness - Left, CVA Tenderness - Right Breast(s): No: Mass, Skin Changes Musculoskeletal: No: Muscle Pain, Muscle Weakness Extremities: No: Cool, Cyanosis Edema: Yes Edema: LUE: 1+, RUE: 1+, LLE: 1+, RLE: 1+ Peripheral Pulses WNL: Yes Peripheral Pulses: Left Radial: 2+, Right Radial: 2+, Left Doralis Pedis: 2+, Right Dorsalis Pedis: 2+, Left Femoral: 2+, Right Femoral: 2+ Integumentary: No: Jaundice, Rash Wound/Incision: Yes: Draining, Reddened Neurological: Yes: Alert, Confusion. No: Oriented Psychiatric: Yes: Alert. No: Oriented Labs: CBC, BMP 07/08/19 08:25 07/09/19 05:45 INR, PTT INR 1.35 (0.83-1.09) H 07/04/19 05:50 Problem List - Problems (1) Infection of PEG site Assessment/Plan: 59yo male MMP with SIRs and what appears to be an infected PEG site with some soft tissue breakdown. Appears to be suitable for continued use. In place on imaging with out as discrete abscess collection. Discussed with Dr. Portillo using the PEG and he confirms that it can be used. This patent is NOT an ideal candidate for an elective general anesthesia procedure when his current feeding access is viable and has been confirmed in position. start PEG Tube feeds AUTUMN (instructions can be found in Dr. Lopez notes) Meticulous PEG site care by RN (leaking is not a reason to stop tube feeds) Optimize protein nutrition Broad spectrum IV antibiotics Re-evaluation by Dr. Fernandez No acute intervention by General Surgery is indicated at this time recall as needed Problems reviewed: No Code(s): K94.22 - GASTROSTOMY INFECTION (2) ESRD (end stage renal disease) on dialysis Code(s): N18.6 - END STAGE RENAL DISEASE; Z99.2 - DEPENDENCE ON RENAL DIALYSIS (3) HLD (hyperlipidemia) Code(s): E78.5 - HYPERLIPIDEMIA, UNSPECIFIED (4) Schizo affective schizophrenia Code(s): F25.0 - SCHIZOAFFECTIVE DISORDER, BIPOLAR TYPE (5) Sepsis associated hypotension Code(s): A41.9 - SEPSIS, UNSPECIFIED ORGANISM; I95.9 - HYPOTENSION, UNSPECIFIED (6) Systemic inflammatory response syndrome (SIRS) Code(s): R65.10 - SIRS OF NON-INFECTIOUS ORIGIN W/O ACUTE ORGAN DYSFUNCTION (7) Arthritis Code(s): M19.90 - UNSPECIFIED OSTEOARTHRITIS, UNSPECIFIED SITE (8) Bipolar 1 disorder Code(s): F31.9 - BIPOLAR DISORDER, UNSPECIFIED (9) Hypertension Code(s): I10 - ESSENTIAL (PRIMARY) HYPERTENSION Qualifiers: Hypertension type: unspecified Qualified Code(s): I10 - Essential (primary ) hypertension (10) Morbid (severe) obesity due to excess calories Code(s): E66.01 - MORBID (SEVERE) OBESITY DUE TO EXCESS CALORIES (11) Type 2 diabetes mellitus Code(s): E11.9 - TYPE 2 DIABETES MELLITUS WITHOUT COMPLICATIONS Qualifiers: Diabetes mellitus intermediate insulin use: unspecified intermediate insulin use status Diabetes mellitus complication status: with unspecified complications
[2019-07-10 14:51] VITALS: BMI 33.5
[2019-07-10] MEDS: AMINO ACIDS 4.25%/D5W 1,000 ML IV SCH (14:51)
[2019-07-10] MEDS ORDERED: FAT EMULSIONS 20% 500 ML PREMIX INFUS.BAG IV SCH (22:00)
[2019-07-10] MEDS: FAT EMULSIONS 500 ML IV SCH (23:14)
[2019-07-11] MEDS: NYSTATIN 500,000 UNITS/5 ML SUSPENSION PO SCH ×4 (00:45→12:08)
[2019-07-11] MEDS ORDERED: PIPERACILLIN/TAZOBACTAM 2.25 GM VIAL IVPB ONE ×3 (02:13→18:19)
[2019-07-11] MEDS ORDERED: DEXTROSE 5%-WATER - 50 ML IVPB ONE ×3 (02:13→18:19)
[2019-07-11] MEDS: PIPERACILLIN/TAZOB 2.25 GM 2.25 GM in DEXTROSE 5%-WATER - 50 ML IVPB SCH ×3 (02:16→18:22)
[2019-07-11] MEDS: INSULIN SLIDING SCALE (NOVOLOG) 1 VIAL SQ SCH ×3 (06:22→16:48)
[2019-07-11] MEDS: HEPARIN NA (PORCINE) 5,000 UNITS/ML 1ML VIAL SQ SCH ×3 (06:22→22:39)
[2019-07-11 08:29] LABS: HEMATOCRIT 28.1 % (35.4-49); MCH 26.7 pg (25.7-33.7); MCHC 32.1 g/dl (32.0-35.9); MEAN PLT VOLUME 7.7 fl (7.5-11.1); PLATELET COUNT 320 K/MM3 (134-434); RBC 3.38 M/mm3 (4.00-5.60); RDW 19.2 % (11.9-15.9); WHITE BLOOD COUNT 9.2 K/mm3 (4.0-10.0)
[2019-07-11 09:02] LABS: BLOOD UREA NITROGEN 22.5 mg/dL (7-18); CALCIUM 8.6 mg/dL (8.5-10.1); CREATININE 5.1 mg/dL (0.55-1.3); POTASSIUM 3.2 mmol/L (3.5-5.1)
[2019-07-11] MEDS: ASPIRIN COATED 81 MG TABLET.EC PO SCH (09:09)
[2019-07-11] MEDS ORDERED: EPOETIN ALFA 10,000 UNIT, EPOETIN ALFA 2,000 UNIT IVPUSH ONE (09:30)
[2019-07-11] MEDS ORDERED: EPOETIN ALFA 2,000 UNIT/1 ML VIAL IVPUSH ONE (11:35)
--- NOTE | 2019-07-11 11:35 | PN ---
Progress Note (short form) - Note Progress Note: Events noted pt examined in dialysis no distress Vital Signs - 24 hr 07/10/19 07/10/19 07/10/19 15:11 18:00 21:00 Temperature 97.9 F 98.8 F Pulse Rate 105 H 104 H Respiratory 18 18 17 Rate Blood Pressure 134/83 146/97 O2 Sat by Pulse 99 Oximetry (%) 07/10/19 07/11/19 07/11/19 22:00 02:00 06:00 Temperature 98.2 F 98.8 F 98.5 F Pulse Rate 103 H 111 H 112 H Respiratory 17 17 17 Rate Blood Pressure 147/98 146/98 144/97 O2 Sat by Pulse Oximetry (%) 07/11/19 07/11/19 07/11/19 09:25 09:30 10:00 Temperature 98.6 F Pulse Rate 98 H 109 H 96 H Respiratory 18 18 18 Rate Blood Pressure 142/100 149/102 H 127/84 O2 Sat by Pulse Oximetry (%) 07/11/19 07/11/19 07/11/19 10:30 11:00 11:30 Temperature Pulse Rate 93 H 89 111 H Respiratory 18 18 18 Rate Blood Pressure 135/104 H 112/88 106/75 O2 Sat by Pulse Oximetry (%) 07/11/19 07/11/19 07/11/19 12:00 12:30 12:35 Temperature Pulse Rate 96 H 98 H 94 H Respiratory 18 18 18 Rate Blood Pressure 133/78 122/74 129/74 O2 Sat by Pulse Oximetry (%) Current Medications Generic Name Dose Route Start Last Admin Trade Name Freq PRN Reason Stop Dose Admin Aspirin 81 mg 07/05/19 10:00 07/11/19 09:09 Ecotrin - PO Not Given DAILY [facility] Collagenase 1 applic 07/05/19 10:00 07/10/19 11:24 Santyl - TP 1 applic DAILY [facility] Administration Protocol Heparin Sodium (Porcine) 5,000 unit 07/05/19 06:00 07/11/19 06:22 Heparin - SQ 5,000 unit TID [facility] Administration Piperacillin Sod/Tazobactam 50 mls @ 100 mls/hr 07/05/19 02:00 07/11/19 11:12 Sod 2.25 gm/ Dextrose IVPB 100 mls/hr Q8H-IV [facility] Administration Protocol Amino Acids 1,000 mls @ 42 mls/hr 07/10/19 13:00 07/10/19 14:51 Clinimix - IV 42 mls/hr Q24H [facility] Administration Fat Emulsion Intravenous 500 mls @ 41.667 mls/hr 07/10/19 22:00 07/10/19 23: 14 Intralipid - IV 41.667 mls/hr DAILY@2200 [facility] Administration Insulin Aspart 1 vial 07/05/19 07:00 07/11/19 12:06 Novolog Vial Sliding Scale - SQ Not Given TIDAC [facility] Protocol Nystatin 500,000 units 07/05/19 00:00 07/11/19 12:08 Nystatin Oral Suspension - PO Not Given Q6HPO [facility] Laboratory Results - last 24 hr 07/10/19 07/11/19 07/11/19 16:46 06:19 07:20 WBC RBC Hgb Hct MCV MCH MCHC RDW Plt Count MPV Sodium 140 Potassium 3.2 L Chloride 103 Carbon Dioxide 25 Anion Gap 12 BUN 22.5 H Creatinine 5.1 H Est GFR (CKD-EPI)AfAm 13.45 Est GFR (CKD-EPI)NonAf 11.60 POC Glucometer 87 90 Random Glucose 84 Calcium 8.6 07/11/19 07:20 WBC 9.2 RBC 3.38 L Hgb 9.0 L Hct 28.1 L MCV 83.0 MCH 26.7 MCHC 32.1 RDW 19.2 H Plt Count 320 MPV 7.7 Sodium Potassium Chloride Carbon Dioxide Anion Gap BUN Creatinine Est GFR (CKD-EPI)AfAm Est GFR (CKD-EPI)NonAf POC Glucometer Random Glucose Calcium Constitutional: Yes: looks better. Eyes: Yes: Conjunctiva Clear, Neck: Yes: Supple. 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 ESRD--On HD HTN HLD CHF COPD Gout Bipolar Disorder Schizophrenia on iv antibiotics Gtube -- no surgeries -- IR says can use it-- will check gastrograffin study prior to feeding pt refuses to take PO MRI-- no acute infarcts Hd per renal Vascular eval for wounds-- appreciated on antibiotics dc Nystatin Problem List - Problems (1) ESRD (end stage renal disease) on dialysis Code(s): N18.6 - END STAGE RENAL DISEASE; Z99.2 - DEPENDENCE ON RENAL DIALYSIS (2) Elevated LFTs Code(s): R94.5 - ABNORMAL RESULTS OF LIVER FUNCTION STUDIES (3) Infection of PEG site Code(s): K94.22 - GASTROSTOMY INFECTION (4) Schizo affective schizophrenia Code(s): F25.0 - SCHIZOAFFECTIVE DISORDER, BIPOLAR TYPE (5) Sepsis Code(s): A41.9 - SEPSIS, UNSPECIFIED ORGANISM Qualifiers: Sepsis type: sepsis due to unspecified organism Sepsis acute organ dysfunction status: unspecified Qualified Code(s): A41.9 - Sepsis, unspecified organism (6) Septic shock Code(s): A41.9 - SEPSIS, UNSPECIFIED ORGANISM; R65.21 - SEVERE SEPSIS WITH SEPTIC SHOCK
--- NOTE | 2019-07-11 11:54 | PN ---
Progress Note (short form) - Note Progress Note: PULMONARY Currently on HD. Denies shortness of breath. No fevers recorded. Vital Signs Period Temp Pulse Resp BP Sys/Castillo Pulse Ox Last 24 Hr 97.9 F-98.8 F 89-112 17-18 106-149/75-104 99 Gen: NAD at rest Heart: RRR Lung: decreased breath sounds at the bases Abd: soft, +PEG Ext: no edema CBC, BMP 07/11/19 07:20 07/11/19 07:20 Active Medications Aspirin (Ecotrin -) 81 mg PO DAILY [facility] Last Admin: 07/11/19 09:09 Dose: Not Given Collagenase (Santyl -) 1 applic TP DAILY [facility]; Protocol Last Admin: 07/10/19 11:24 Dose: 1 applic Heparin Sodium (Porcine) (Heparin -) 5,000 unit SQ TID [facility] Last Admin: 07/11/19 06:22 Dose: 5,000 unit Piperacillin Sod/Tazobactam (Sod 2.25 gm/ Dextrose) 50 mls @ 100 mls/hr IVPB Q8H-IV [facility]; Protocol Last Admin: 07/11/19 11:12 Dose: 100 mls/hr Amino Acids (Clinimix -) 1,000 mls @ 42 mls/hr IV Q24H [facility] Last Admin: 07/10/19 14:51 Dose: 42 mls/hr Fat Emulsion Intravenous (Intralipid -) 500 mls @ 41.667 mls/hr IV DAILY@2200 [facility] Last Admin: 07/10/19 23:14 Dose: 41.667 mls/hr Insulin Aspart (Novolog Vial Sliding Scale -) 1 vial SQ TIDAC [facility]; Protocol Last Admin: 07/11/19 06:22 Dose: Not Given Nystatin (Nystatin Oral Suspension -) 500,000 units PO Q6HPO [facility] Last Admin: 07/11/19 06:22 Dose: Not Given A/P Infected Decubitus Ulcers r/o Pneumonia r/o G tube site Infection Gram Positive Bacteremia Septic Shock improved Lactic Acidosis resolved ESRD on HD COPD LV Diastolic Dysfunction HTN Hyperlipidemia Bipolar Disorder Schizophrenia Anemia - conmplete antibiotics - HD per renal - O2 to keep SpO2 >90% - wound care - DVT prophylaxis
--- NOTE | 2019-07-11 13:23 | PN ---
Progress Note, Physician History of Present Illness: Pt seen and examined at bedside. He is tolerating HD. He denies shortness of breath. - Current Medication List Current Medications: Active Medications Aspirin (Ecotrin -) 81 mg PO DAILY [facility] Last Admin: 07/11/19 09:09 Dose: Not Given Collagenase (Santyl -) 1 applic TP DAILY [facility]; Protocol Last Admin: 07/10/19 11:24 Dose: 1 applic Heparin Sodium (Porcine) (Heparin -) 5,000 unit SQ TID [facility] Last Admin: 07/11/19 06:22 Dose: 5,000 unit Piperacillin Sod/Tazobactam (Sod 2.25 gm/ Dextrose) 50 mls @ 100 mls/hr IVPB Q8H-IV [facility]; Protocol Last Admin: 07/11/19 11:12 Dose: 100 mls/hr Amino Acids (Clinimix -) 1,000 mls @ 42 mls/hr IV Q24H [facility] Last Admin: 07/10/19 14:51 Dose: 42 mls/hr Fat Emulsion Intravenous (Intralipid -) 500 mls @ 41.667 mls/hr IV DAILY@2200 [facility] Last Admin: 07/10/19 23:14 Dose: 41.667 mls/hr Insulin Aspart (Novolog Vial Sliding Scale -) 1 vial SQ TIDAC [facility]; Protocol Last Admin: 07/11/19 12:06 Dose: Not Given - Objective Vital Signs: Vital Signs Temperature 98.6 F 07/11/19 09:25 Pulse Rate 94 H 07/11/19 12:35 Respiratory Rate 18 07/11/19 12:35 Blood Pressure 129/74 07/11/19 12:35 O2 Sat by Pulse Oximetry (%) 99 07/10/19 21:00 Constitutional: Yes: Calm Eyes: Yes: Conjunctiva Clear HENT: Yes: Atraumatic Neck: Yes: Supple Cardiovascular: Yes: S1, S2 Respiratory: Yes: CTA Bilaterally Gastrointestinal: Yes: Soft Genitourinary: Yes: Incontinence Musculoskeletal: Yes: Muscle Weakness Edema: No Neurological: Yes: Confusion Labs: CBC, BMP 07/11/19 07:20 07/11/19 07:20 INR, PTT INR 1.35 (0.83-1.09) H 07/04/19 05:50 Problem List - Problems (1) Anemia Code(s): D64.9 - ANEMIA, UNSPECIFIED Qualifiers: Anemia type: unspecified type Qualified Code(s): D64.9 - Anemia, unspecified (2) ESRD (end stage renal disease) on dialysis Code(s): N18.6 - END STAGE RENAL DISEASE; Z99.2 - DEPENDENCE ON RENAL DIALYSIS Assessment/Plan Current Medications Generic Name Dose Route Start Last Admin Trade Name Vandana PRN Reason Stop Dose Admin Aspirin 81 mg 07/05/19 10:00 07/11/19 09:09 Ecotrin - PO Not Given DAILY [facility] Collagenase 1 applic 07/05/19 10:00 07/10/19 11:24 Santyl - TP 1 applic DAILY [facility] Administration Protocol Heparin Sodium (Porcine) 5,000 unit 07/05/19 06:00 07/11/19 06:22 Heparin - SQ 5,000 unit TID [facility] Administration Piperacillin Sod/Tazobactam 50 mls @ 100 mls/hr 07/05/19 02:00 07/11/19 11:12 Sod 2.25 gm/ Dextrose IVPB 100 mls/hr Q8H-IV [facility] Administration Protocol Amino Acids 1,000 mls @ 42 mls/hr 07/10/19 13:00 07/10/19 14:51 Clinimix - IV 42 mls/hr Q24H [facility] Administration Fat Emulsion Intravenous 500 mls @ 41.667 mls/hr 07/10/19 22:00 07/10/19 23: 14 Intralipid - IV 41.667 mls/hr DAILY@2200 [facility] Administration Insulin Aspart 1 vial 07/05/19 07:00 07/11/19 12:06 Novolog Vial Sliding Scale - SQ Not Given TIDAC [facility] Protocol Impression 1. ESRD 2. sepsis 3. gout 4. HTN 5. CHF 6. DM 7. hx bipolar 8. MOLLY 9. non compliance 10. bacteremia 11. lactic acidosis Plan - HD today - GI/surgery follow up for feeding tube - pt on clinimix and lipids - monitor lytes - abx per primary team
--- NOTE | 2019-07-11 14:08 | PN ---
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 Clinimix 1L volume with added KCL 40meq for now and decrease Intralipids to 250ml. Taper clinimix as enteral feeds are increased to goal Pt not accepting PO trials Pending TF
[2019-07-11] MEDS: AMINO ACIDS 4.25%/D5W 1,000 ML IV SCH (15:25)
[2019-07-11] MEDS: COLLAGENASE CLOSTRIDIUM HIST. 30 GRAMS TUBE TP SCH (15:30)
[2019-07-11] MEDS ORDERED: metoPROLOL SUCCINATE 25 MG TAB.SR.24H (FP) PO ONE (16:15)
--- NOTE | 2019-07-11 17:05 | EKG ---
Test Reason : Blood Pressure : / mmHG Vent. Rate : 126 BPM Atrial Rate : 129 BPM P-R Int : 000 ms QRS Dur : 086 ms QT Int : 418 ms P-R-T Axes : 000 -16 049 degrees QTc Int : 605 ms ATRIAL FIBRILLATION WITH RAPID VENTRICULAR RESPONSE LOW VOLTAGE QRS INFERIOR INFARCT , AGE UNDETERMINED ABNORMAL ECG WHEN COMPARED WITH ECG OF 02-JUL-2019 09:10, ATRIAL FIBRILLATION HAS REPLACED SINUS RHYTHM INFERIOR INFARCT IS NOW PRESENT NON-SPECIFIC CHANGE IN ST SEGMENT IN INFERIOR LEADS Confirmed by MD Douglas, Walter ([id number]) on 07/11/2019 5:05:42 PM Referred By: ROYAL ROMO Confirmed By:Walter Cole MD
[2019-07-11] MEDS ORDERED: METOPROLOL TARTRATE 5 MG/5 ML VIAL IVPUSH PRN (18:49)
--- NOTE | 2019-07-11 21:09 | HOSP ---
Subjective - Review of Symptoms Events since last encounter: 59 year old morbidly obese male non-verbal with a PMH of ESRD (, , ), HTN , HLD, CHF, COPD, gout, Bipolar Disorder, and schizophrenia, treating for sepsis , develop new onset A-fib with RVR. currently on continuos cardiac monitoring, monitoring showing sinus tachy @ rate of 120-127. EKG does not show any new ischemic changes. Rn spoke to Dr. Trejo will follow up in AM. Continue with Metoprolol 5 mg IV push Q 4 PRN, remain on Heparin SQ TID. Upon assessment patient denies CP/SOB " nodes his head when asked. Continue to monitor closely. Physical Examination Vital Signs: Vital Signs Temperature 98.8 F 07/11/19 15:20 Pulse Rate 126 H 07/11/19 18:49 Respiratory Rate 17 07/11/19 18:49 Blood Pressure 140/93 07/11/19 18:49 O2 Sat by Pulse Oximetry (%) 99 07/10/19 21:00 Labs: CBC, BMP 07/11/19 07:20 07/11/19 07:20 Hospitalist Encounter Assessment: # New onset A-fib - continue with Metoprolol 5 mg IV push PRN - cardiology will follow up in AM
[2019-07-11] MEDS: FAT EMULSIONS 500 ML IV SCH (23:20)
[2019-07-12] MEDS ORDERED: PIPERACILLIN/TAZOBACTAM 2.25 GM VIAL IVPB ONE (01:01)
[2019-07-12] MEDS ORDERED: DEXTROSE 5%-WATER - 50 ML IVPB ONE (01:01)
[2019-07-12] MEDS: INSULIN SLIDING SCALE (NOVOLOG) 1 VIAL SQ SCH ×3 (06:23→16:43)
[2019-07-12] MEDS: HEPARIN NA (PORCINE) 5,000 UNITS/ML 1ML VIAL SQ SCH ×3 (06:23→21:15)
[2019-07-12] MEDS ORDERED: SODIUM CHLORIDE 250 ML IV PRN (08:00)
[2019-07-12 08:05] LABS: BLOOD UREA NITROGEN 16.3 mg/dL (7-18); CALCIUM 8.4 mg/dL (8.5-10.1); CREATININE 3.8 mg/dL (0.55-1.3); POTASSIUM 4.7 mmol/L (3.5-5.1)
[2019-07-12] MEDS: ASPIRIN COATED 81 MG TABLET.EC PO SCH (09:22)
--- NOTE | 2019-07-12 10:24 | PN ---
Progress Note, Physician History of Present Illness: pulmonary drowsy,-resp distress,tranferred to telemetry secondary rapid afib - Current Medication List Current Medications: Active Medications Aspirin (Ecotrin -) 81 mg PO DAILY [facility] Last Admin: 07/12/19 09:22 Dose: 81 mg Collagenase (Santyl -) 1 applic TP DAILY [facility]; Protocol Last Admin: 07/11/19 15:30 Dose: 1 applic Heparin Sodium (Porcine) (Heparin -) 5,000 unit SQ TID [facility] Last Admin: 07/12/19 06:23 Dose: 5,000 unit Amino Acids (Clinimix -) 1,000 mls @ 42 mls/hr IV Q24H [facility] Last Admin: 07/11/19 15:25 Dose: 42 mls/hr Fat Emulsion Intravenous (Intralipid -) 500 mls @ 41.667 mls/hr IV DAILY@2200 [facility] Last Admin: 07/11/19 23:20 Dose: 41.667 mls/hr Insulin Aspart (Novolog Vial Sliding Scale -) 1 vial SQ TIDAC [facility]; Protocol Last Admin: 07/12/19 06:23 Dose: Not Given Metoprolol Tartrate (Lopressor Injection -) 5 mg IVPUSH Q4H PRN PRN Reason: TACHYCARDIA - Objective Vital Signs: Vital Signs Temperature 98.2 F 07/12/19 08:21 Pulse Rate 108 H 07/12/19 08:21 Respiratory Rate 18 07/12/19 08:21 Blood Pressure 134/83 07/12/19 08:21 O2 Sat by Pulse Oximetry (%) 95 07/12/19 08:21 Constitutional: Yes: Well Nourished, Calm Eyes: Yes: WNL HENT: Yes: WNL Neck: Yes: WNL Cardiovascular: Yes: Pulse Irregular, S1, S2 Respiratory: Yes: Diminished, Other (poor inspiratory effort) Gastrointestinal: Yes: Normal Bowel Sounds, Soft Extremities: Yes: WNL Edema: Yes Labs: CBC, BMP 07/12/19 06:05 INR, PTT INR 1.35 (0.83-1.09) H 07/04/19 05:50 Problem List - Problems (1) Elevated LFTs Code(s): R94.5 - ABNORMAL RESULTS OF LIVER FUNCTION STUDIES (2) Pneumonia Code(s): J18.9 - PNEUMONIA, UNSPECIFIED ORGANISM Qualifiers: Pneumonia type: due to unspecified organism Laterality: bilateral Lung location: lower lobe of lung Qualified Code(s): J18.1 - Lobar pneumonia, unspecified organism (3) Schizo affective schizophrenia Code(s): F25.0 - SCHIZOAFFECTIVE DISORDER, BIPOLAR TYPE (4) Sepsis Code(s): A41.9 - SEPSIS, UNSPECIFIED ORGANISM Qualifiers: Sepsis type: sepsis due to unspecified organism Sepsis acute organ dysfunction status: unspecified Qualified Code(s): A41.9 - Sepsis, unspecified organism (5) Stage 4 chronic kidney disease Code(s): N18.4 - CHRONIC KIDNEY DISEASE, STAGE 4 (SEVERE) (6) Acute metabolic encephalopathy Code(s): G93.41 - METABOLIC ENCEPHALOPATHY (7) Chronic diastolic heart failure Code(s): I50.32 - CHRONIC DIASTOLIC (CONGESTIVE) HEART FAILURE (8) Anemia Code(s): D64.9 - ANEMIA, UNSPECIFIED Qualifiers: Anemia type: unspecified type Qualified Code(s): D64.9 - Anemia, unspecified (9) Hypertension Code(s): I10 - ESSENTIAL (PRIMARY) HYPERTENSION Qualifiers: Hypertension type: unspecified Qualified Code(s): I10 - Essential (primary ) hypertension Assessment/Plan A/P Infected Decubitus Ulcers r/o Pneumonia r/o G tube site Infection Gram Positive Bacteremia Septic Shock Lactic Acidosis ESRD on HD COPD LV Diastolic Dysfunction HTN Hyperlipidemia Bipolar Disorder Schizophrenia Anemia Afib with RVR - HD per renal - O2 to keep SpO2 >90% - wound care - rate control as per cardiology - DVT prophylaxis - lopressor DR MONTELONGO
--- NOTE | 2019-07-12 11:17 | PN ---
Progress Note, PATIENT ACCOUNT LIAISON - Note Progress Note: Per RD-Initiate enteral feeds of Nepro @ 20cc/hr, increase as tolerated to goal : 42cc/hr with 20cc/hr water flush. Clinimix 1L volume with added KCL 40meq for now and decrease Intralipids to 250ml. Taper clinimix as enteral feeds are increased to goal Pt not accepting PO trials. PO held. Pending TF
--- NOTE | 2019-07-12 11:19 | PN ---
Progress Note (short form) - Note Progress Note: Events noted pt examined in tele no distress transferred for new onset Afib Now in monitor sinus tachycardia Vital Signs - 24 hr 07/11/19 07/11/19 07/11/19 12:00 12:30 12:35 Temperature Pulse Rate 96 H 98 H 94 H Respiratory 18 18 18 Rate Blood Pressure 133/78 122/74 129/74 O2 Sat by Pulse Oximetry (%) 07/11/19 07/11/19 07/11/19 14:00 15:20 18:49 Temperature 98.8 F Pulse Rate 127 H 127 H 126 H Respiratory 18 18 17 Rate Blood Pressure 137/106 H 137/103 H 140/93 O2 Sat by Pulse Oximetry (%) 07/11/19 07/12/19 07/12/19 21:00 01:19 05:00 Temperature 98.9 F 98.7 F 98.2 F Pulse Rate 123 H 128 H 113 H Respiratory 17 18 18 Rate Blood Pressure 140/86 136/84 143/82 O2 Sat by Pulse 94 L Oximetry (%) 07/12/19 07/12/19 08:17 08:21 Temperature 98.2 F Pulse Rate 108 H Respiratory 18 Rate Blood Pressure 134/83 O2 Sat by Pulse 95 95 Oximetry (%) Current Medications Generic Name Dose Route Start Last Admin Trade Name Freq PRN Reason Stop Dose Admin Aspirin 81 mg 07/05/19 10:00 07/12/19 09:22 Ecotrin - PO 81 mg DAILY [facility] Administration Collagenase 1 applic 07/05/19 10:00 07/11/19 15:30 Santyl - TP 1 applic DAILY [facility] Administration Protocol Heparin Sodium (Porcine) 5,000 unit 07/05/19 06:00 07/12/19 06:23 Heparin - SQ 5,000 unit TID [facility] Administration Insulin Aspart 1 vial 07/05/19 07:00 07/12/19 06:23 Novolog Vial Sliding Scale - SQ Not Given TIDAC [facility] Protocol Metoprolol Succinate 25 mg 07/12/19 11:45 Toprol Xl - PO DAILY [facility] Metoprolol Tartrate 5 mg 07/11/19 18:49 Lopressor Injection - IVPUSH Q4H PRN TACHYCARDIA Laboratory Results - last 24 hr 07/11/19 07/12/19 07/12/19 16:32 06:05 06:21 Sodium 138 Potassium 4.7 Chloride 102 Carbon Dioxide 26 Anion Gap 10 BUN 16.3 Creatinine 3.8 H Est GFR (CKD-EPI)AfAm 19.19 Est GFR (CKD-EPI)NonAf 16.56 POC Glucometer 91 95 Random Glucose 88 Calcium 8.4 L Constitutional: Yes: looks better. Eyes: Yes: Conjunctiva Clear, Neck: Yes: Supple. 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 ESRD--On HD HTN HLD CHF COPD Gout Bipolar Disorder Schizophrenia on iv antibiotics Gtube -- start GT feeds dc clinimix, dc lipids ?duration of antibiotics cradiology eval for new Afib -- start Toprol daily MRI-- no acute infarcts Hd per renal Vascular eval for wounds-- appreciated Problem List - Problems (1) ESRD (end stage renal disease) on dialysis Code(s): N18.6 - END STAGE RENAL DISEASE; Z99.2 - DEPENDENCE ON RENAL DIALYSIS (2) Elevated LFTs Code(s): R94.5 - ABNORMAL RESULTS OF LIVER FUNCTION STUDIES (3) Infection of PEG site Code(s): K94.22 - GASTROSTOMY INFECTION (4) Schizo affective schizophrenia Code(s): F25.0 - SCHIZOAFFECTIVE DISORDER, BIPOLAR TYPE (5) Sepsis Code(s): A41.9 - SEPSIS, UNSPECIFIED ORGANISM Qualifiers: Sepsis type: sepsis due to unspecified organism Sepsis acute organ dysfunction status: unspecified Qualified Code(s): A41.9 - Sepsis, unspecified organism (6) Septic shock Code(s): A41.9 - SEPSIS, UNSPECIFIED ORGANISM; R65.21 - SEVERE SEPSIS WITH SEPTIC SHOCK
[2019-07-12] MEDS ORDERED: metoPROLOL SUCCINATE 25 MG TAB.SR.24H (FP) PO SCH (11:45)
--- NOTE | 2019-07-12 12:45 | PN ---
Progress Note, Physician History of Present Illness: Pt seen and examined at bedside. He is now in tele. - Current Medication List Current Medications: Active Medications Aspirin (Ecotrin -) 81 mg PO DAILY [facility] Last Admin: 07/12/19 09:22 Dose: 81 mg Collagenase (Santyl -) 1 applic TP DAILY [facility]; Protocol Last Admin: 07/11/19 15:30 Dose: 1 applic Heparin Sodium (Porcine) (Heparin -) 5,000 unit SQ TID [facility] Last Admin: 07/12/19 06:23 Dose: 5,000 unit Insulin Aspart (Novolog Vial Sliding Scale -) 1 vial SQ TIDAC [facility]; Protocol Last Admin: 07/12/19 06:23 Dose: Not Given Metoprolol Succinate (Toprol Xl -) 25 mg PO DAILY [facility] Metoprolol Tartrate (Lopressor Injection -) 5 mg IVPUSH Q4H PRN PRN Reason: TACHYCARDIA - Objective Vital Signs: Vital Signs Temperature 98.2 F 07/12/19 08:21 Pulse Rate 108 H 07/12/19 08:21 Respiratory Rate 18 07/12/19 08:21 Blood Pressure 134/83 07/12/19 08:21 O2 Sat by Pulse Oximetry (%) 95 07/12/19 08:21 Constitutional: Yes: Calm Eyes: Yes: Conjunctiva Clear HENT: Yes: Atraumatic Neck: Yes: Supple Cardiovascular: Yes: S1, S2 Respiratory: Yes: CTA Bilaterally Gastrointestinal: Yes: Soft, Other (peg in place) Genitourinary: Yes: WNL Musculoskeletal: Yes: WNL Edema: No Integumentary: Yes: WNL Neurological: Yes: Confusion Labs: CBC, BMP 07/11/19 07:20 07/12/19 06:05 INR, PTT INR 1.35 (0.83-1.09) H 07/04/19 05:50 Problem List - Problems (1) Anemia Code(s): D64.9 - ANEMIA, UNSPECIFIED Qualifiers: Anemia type: unspecified type Qualified Code(s): D64.9 - Anemia, unspecified (2) ESRD (end stage renal disease) on dialysis Code(s): N18.6 - END STAGE RENAL DISEASE; Z99.2 - DEPENDENCE ON RENAL DIALYSIS Assessment/Plan Current Medications Generic Name Dose Route Start Last Admin Trade Name Freq PRN Reason Stop Dose Admin Aspirin 81 mg 07/05/19 10:00 07/12/19 09:22 Ecotrin - PO 81 mg DAILY [facility] Administration Collagenase 1 applic 07/05/19 10:00 07/11/19 15:30 Santyl - TP 1 applic DAILY [facility] Administration Protocol Heparin Sodium (Porcine) 5,000 unit 07/05/19 06:00 07/12/19 06:23 Heparin - SQ 5,000 unit TID [facility] Administration Insulin Aspart 1 vial 07/05/19 07:00 07/12/19 06:23 Novolog Vial Sliding Scale - SQ Not Given TIDAC [facility] Protocol Metoprolol Succinate 25 mg 07/12/19 11:45 Toprol Xl - PO DAILY [facility] Metoprolol Tartrate 5 mg 07/11/19 18:49 Lopressor Injection - IVPUSH Q4H PRN TACHYCARDIA Impression 1. ESRD 2. sepsis 3. gout 4. HTN 5. CHF 6. DM 7. hx bipolar 8. MOLLY 9. non compliance 10. bacteremia 11. lactic acidosis 12. new onset a-fib Plan - next HD tomorrow - pt now on tele for a-fib - cont clinimix - GI/surgery follow up for feeding tube - monitor charmaine
[2019-07-12] MEDS: COLLAGENASE CLOSTRIDIUM HIST. 30 GRAMS TUBE TP SCH (13:33)
--- NOTE | 2019-07-12 15:05 | PN ---
Progress Note, Physician Chief Complaint: Does not verbalize with me Tele: sinus tachy History of Present Illness: 59 year old male with a pmhx of obesity, ESRD on HD (, , ), htn, hld, dCHF , copd, gout, bipolar d/o, and schizophrenia admitted and being treated for sepsis transferred to tele for question of afib. - Current Medication List Current Medications: Active Medications Aspirin (Ecotrin -) 81 mg PO DAILY [facility] Last Admin: 07/12/19 09:22 Dose: 81 mg Collagenase (Santyl -) 1 applic TP DAILY [facility]; Protocol Last Admin: 07/12/19 13:33 Dose: Not Given Epoetin Shawn (Epogen -) 6,000 unit IVPUSH ONCE ONE Stop: 07/13/19 12:46 Heparin Sodium (Porcine) (Heparin -) 5,000 unit SQ TID [facility] Last Admin: 07/12/19 13:35 Dose: 5,000 unit Sodium Chloride (Normal Saline -) 250 mls @ 3,000 mls/hr IV PRN PRN PRN Reason: Hypotension during Dialysis Stop: 07/13/19 12:45 Insulin Aspart (Novolog Vial Sliding Scale -) 1 vial SQ TIDAC [facility]; Protocol Last Admin: 07/12/19 13:32 Dose: Not Given Metoprolol Succinate (Toprol Xl -) 25 mg PO DAILY [facility] Last Admin: 07/12/19 13:32 Dose: 25 mg Metoprolol Tartrate (Lopressor Injection -) 5 mg IVPUSH Q4H PRN PRN Reason: TACHYCARDIA - Objective Vital Signs: Vital Signs Temperature 98.7 F 07/12/19 14:00 Pulse Rate 115 H 07/12/19 14:00 Respiratory Rate 18 07/12/19 14:00 Blood Pressure 148/81 07/12/19 14:00 O2 Sat by Pulse Oximetry (%) 95 07/12/19 08:21 Constitutional: Yes: No Distress Neck: Yes: Supple Cardiovascular: Yes: Tachycardia, S1, S2 Respiratory: Yes: CTA Bilaterally Gastrointestinal: Yes: Soft Edema: No Labs: CBC, BMP 07/11/19 07:20 07/12/19 06:05 INR, PTT INR 1.35 (0.83-1.09) H 07/04/19 05:50 Assessment/Plan 59 year old male with a pmhx of obesity, ESRD on HD (T, Th, ), htn, hld, dCHF , copd, gout, bipolar d/o, and schizophrenia admitted and being treated for sepsis transferred to tele for question of afib. Brain MRI 07/06/19: no acute infarcts Echocardiogram 07/03/19: normal LVEF and no significant valve disease 1) ?afib -No documented afib appreciated. EKG scanned in chart from yesterday was read as afib but is sinus tachycardia with pac. Since being placed on tele last night been in sinus tachycardia with no afib. -Would not treat for afib unless any evidence of afib develops. Treat underlying medical conditions. Volume control with dialysis. -If need tele bed could stop tele and place a holter monitor.
[2019-07-13] MEDS: HEPARIN NA (PORCINE) 5,000 UNITS/ML 1ML VIAL SQ SCH ×2 (05:51→15:19)
[2019-07-13] MEDS: INSULIN SLIDING SCALE (NOVOLOG) 1 VIAL SQ SCH ×2 (06:45→12:02)
[2019-07-13] MEDS ORDERED: EPOETIN ALFA 3,000 UNIT/1 ML ML IVPUSH ONE (08:30)
--- NOTE | 2019-07-13 08:58 | PN ---
Progress Note (short form) - Note Progress Note: 59 year old male history of ESRD,HTN,HLD,CHF,COPD,Gout, Bipolar disorder, Schizophrenia. Patient has been admitted to hospital for mental tatus change and Pneurmonia . Patient has ct head showed left occpital acute to subacute stroke. He is on aspirin. Patient has liver enzyme raised. I spoke to house staff and nursing staff. Patient is alert and follow simple command, mri of brain did not show any acute infarct. No new complaiing, he is getting HD today in am, he is sleepy. No new complain over night and he was seen yesterday as well. NEUROLOGICAL EXAMINATION Alert and oriented x 1 eomi, pupils reactivef ,? mild right facial palsy moving upper extremity more than lower extremity has has no hemiparesis reflex are generalized diminished ct head reviewed showed subacute left occpital stroke mri of brain unremarkable and no acute stroke, there is old left occpital stroke Assessment/Plan Acute mental status change seems to be metabolic encephalopathy ( septicemia, hypotension, renal failure ) and pateint has left occpital stroke , it is chronic , no acute strok eidentified on mri of brain He seems to have severe critical illness neuropathy and deconditioning leading to weakness in lower extremity Plan: suggest to continue aspirin, hold statin as liver enzyme are high - PT, SPEECH , Dvt prophylaxis, waiting for placement supportive care Thanking you so much Hever Coe MD
--- NOTE | 2019-07-13 10:53 | PN ---
Progress Note, Physician Chief Complaint: Does not verbalize with me Tele: sinus tachy History of Present Illness: 59 year old male with a pmhx of obesity, ESRD on HD (, ), htn, hld, dCHF , copd, gout, bipolar d/o, and schizophrenia admitted and being treated for sepsis transferred to tele for question of afib. - Current Medication List Current Medications: Active Medications Aspirin (Asa -) 81 mg GT DAILY [facility] Collagenase (Santyl -) 1 applic TP DAILY [facility]; Protocol Last Admin: 07/12/19 13:33 Dose: Not Given Heparin Sodium (Porcine) (Heparin -) 5,000 unit SQ TID [facility] Last Admin: 07/13/19 05:51 Dose: 5,000 unit Insulin Aspart (Novolog Vial Sliding Scale -) 1 vial SQ TIDAC [facility]; Protocol Last Admin: 07/13/19 06:45 Dose: Not Given Metoprolol Tartrate (Lopressor Injection -) 5 mg IVPUSH Q4H PRN PRN Reason: TACHYCARDIA Last Admin: 07/13/19 05:49 Dose: 5 mg Metoprolol Tartrate (Lopressor -) 25 mg GT BID [facility] - Objective Vital Signs: Vital Signs Temperature 98.8 F 07/13/19 06:50 Pulse Rate 51 L 07/13/19 10:07 Respiratory Rate 18 07/13/19 10:07 Blood Pressure 114/87 07/13/19 10:07 O2 Sat by Pulse Oximetry (%) 95 07/12/19 22:00 Constitutional: Yes: No Distress Neck: Yes: Supple Cardiovascular: Yes: Tachycardia, S1, S2. No: JVD Respiratory: Yes: Diminished Gastrointestinal: Yes: Soft Labs: CBC, BMP 07/11/19 07:20 07/12/19 06:05 INR, PTT INR 1.35 (0.83-1.09) H 07/04/19 05:50 Assessment/Plan 59 year old male with a pmhx of obesity, ESRD on HD (, , ), htn, hld, dCHF , copd, gout, bipolar d/o, and schizophrenia admitted and being treated for sepsis transferred to tele for question of afib. Brain MRI 07/06/19: no acute infarcts Echocardiogram 07/03/19: normal LVEF and no significant valve disease 1) ?afib -No documented afib appreciated. EKG scanned in chart from yesterday was read as afib but is sinus tachycardia with pac. Since being placed on tele has been in sinus tachycardia with no afib. -Would not treat for afib unless any evidence of afib develops. Treat underlying medical conditions. Volume control with dialysis. -Can DC tele Will sign off
[2019-07-13] MEDS ORDERED: METOPROLOL TARTRATE 25 MG TABLET (FP) GT SCH (11:30)
[2019-07-13] MEDS ORDERED: ASPIRIN 81 MG CHEWABLE TABLETS GT SCH (11:30)
[2019-07-13] MEDS: COLLAGENASE CLOSTRIDIUM HIST. 30 GRAMS TUBE TP SCH (11:56)
--- NOTE | 2019-07-13 12:03 | PN ---
Problem List - Problems (1) ESRD (end stage renal disease) on dialysis Code(s): N18.6 - END STAGE RENAL DISEASE; Z99.2 - DEPENDENCE ON RENAL DIALYSIS (2) Elevated LFTs Code(s): R94.5 - ABNORMAL RESULTS OF LIVER FUNCTION STUDIES (3) Infection of PEG site Code(s): K94.22 - GASTROSTOMY INFECTION (4) Schizo affective schizophrenia Code(s): F25.0 - SCHIZOAFFECTIVE DISORDER, BIPOLAR TYPE (5) Sepsis Code(s): A41.9 - SEPSIS, UNSPECIFIED ORGANISM Qualifiers: Sepsis type: sepsis due to unspecified organism Sepsis acute organ dysfunction status: unspecified Qualified Code(s): A41.9 - Sepsis, unspecified organism (6) Septic shock Code(s): A41.9 - SEPSIS, UNSPECIFIED ORGANISM; R65.21 - SEVERE SEPSIS WITH SEPTIC SHOCK
--- NOTE | 2019-07-13 12:16 | PN ---
Progress Note (short form) - Note Progress Note: PULMONARY Denies shortness of breath. No fevers recorded. Vital Signs Period Temp Pulse Resp BP Sys/Castillo Pulse Ox Last 24 Hr 97.7 F-99 F 51-131 17-20 105-151/63-95 95-95 Gen: NAD at rest Heart: RRR Lung: decreased breath sounds at the bases Abd: soft, +PEG Ext: no edema CBC, BMP 07/11/19 07:20 07/12/19 06:05 Active Medications Aspirin (Asa -) 81 mg GT DAILY [facility] Last Admin: 07/13/19 11:56 Dose: 81 mg Collagenase (Santyl -) 1 applic TP DAILY [facility]; Protocol Last Admin: 07/13/19 11:56 Dose: 1 applic Heparin Sodium (Porcine) (Heparin -) 5,000 unit SQ TID [facility] Last Admin: 07/13/19 05:51 Dose: 5,000 unit Insulin Aspart (Novolog Vial Sliding Scale -) 1 vial SQ TIDAC [facility]; Protocol Last Admin: 07/13/19 12:02 Dose: Not Given Metoprolol Tartrate (Lopressor Injection -) 5 mg IVPUSH Q4H PRN PRN Reason: TACHYCARDIA Last Admin: 07/13/19 05:49 Dose: 5 mg Metoprolol Tartrate (Lopressor -) 25 mg GT BID [facility] Last Admin: 07/13/19 11:56 Dose: 25 mg A/P Infected Decubitus Ulcers r/o Pneumonia r/o G tube site Infection Gram Positive Bacteremia Septic Shock improved Lactic Acidosis resolved ESRD on HD COPD Atrial Fibrillation LV Diastolic Dysfunction HTN Hyperlipidemia Bipolar Disorder Schizophrenia Anemia - completed antibiotics - HD per renal - O2 to keep SpO2 >90% - wound care - DVT prophylaxis
--- NOTE | 2019-07-13 12:17 | DS ---
Physical Examination Vital Signs: Vital Signs Temperature 98.8 F 07/13/19 06:50 Pulse Rate 51 L 07/13/19 10:07 Respiratory Rate 18 07/13/19 10:07 Blood Pressure 114/87 07/13/19 10:07 O2 Sat by Pulse Oximetry (%) 95 07/12/19 22:00 Constitutional: Yes: No Distress, Calm Cardiovascular: Yes: Regular Rate and Rhythm Respiratory: Yes: Diminished Gastrointestinal: Yes: Normal Bowel Sounds, Soft, Other (GT+). No: Tenderness Edema: No Labs: CBC, BMP 07/11/19 07:20 07/12/19 06:05 Discharge Summary Problems reviewed: Yes Reason For Visit: ACUTE KIDNEY INJURY END STAGE RENAL DISEASE NEEDIN Current Active Problems YOCASTA (acute kidney injury) (Acute) Anemia (Acute) ESRD (end stage renal disease) on dialysis (Acute) ESRD needing dialysis (Acute) Elevated LFTs (Acute) HLD (hyperlipidemia) (Acute) Hypokalemia (Acute) Infection of PEG site (Acute) Pneumonia (Acute) Sacral decubitus ulcer, stage II (Acute) Schizo affective schizophrenia (Acute) Sepsis (Acute) Sepsis associated hypotension (Acute) Septic shock (Acute) Severe sepsis (Acute) Systemic inflammatory response syndrome (SIRS) (Acute) Venous stasis ulcers of both lower extremities (Acute) Stage 4 chronic kidney disease (Chronic) Hospital Course: ADMISSION HISTORY__ - Admission Chief Complaint: Fever , SIRS History of Present Illness: 59 year old morbidly obese male non-verbal with a PMH of ESRD (, , ), HTN , HLD, CHF, COPD, gout, Bipolar Disorder, and schizophrenia arrived from the [place] for fever. Patient does not speak but occasionally shakes his head ( yea or no response when asked simple question). Patient has right perma-cath for dialysis , and G-tube. Unable to conduct ROS. Information gathered from ED note, and prior visits Hospital course -- CT abd/pelvis--Left adrenal nodule-- needs biochemical tests as outpt, Diaphragmatic lymph node enlarge,ent-- repeat CT in 2 months evaluated by ID, Renal, GI Initially was on iv antibiotics for sepsis Blood cultures negative He was thought to have abscess near the peg site-- was seen by Interventional radiology who changed the tube-- initially advised J tube for peg site healing.Surgery consulted-- no interventions advised He completed antibiotics tube feedings restarted Seen by Cardiology for sinus tachycardia-- he did not have afib on telemetry pt is better tolerating GT feeds stable for dc to [facility] Condition: Improved - Instructions [facility]: [facility] - Home Medications Comprehensive Discharge Medication List: Ambulatory Orders Acetaminophen [Tylenol] 650 mg PO ASDIR 03/08/19 Allopurinol [Zyloprim -] 100 mg PO DAILY 03/08/19 Aripiprazole [Abilify] 10 mg PO DAILY 03/08/19 Atorvastatin Ca [Lipitor] 40 mg PO HS 03/08/19 Carvedilol 6.25 mg PO BID 03/08/19 Zinc Sulfate 220 mg PO DAILY 03/08/19 Collagenase Clostridium Hist. [Santyl -] 1 applic TP BID 07/01/19 Folic Acid 1 mg PO DAILY 07/01/19 Folic Acid/Vit B Complex and C [Dialyvite Tablet] 1 each PO DAILY 07/01/19 Midodrine HCl 2.5 mg PO TID 07/01/19 Omeprazole 20 mg PO DAILY 07/01/19 Ondansetron HCl 4 mg PO TID 07/01/19
--- NOTE | 2019-07-13 14:56 | PN ---
Progress Note, Physician History of Present Illness: Pt seen and examined at bedside. He is tolerating tube feeds. - Current Medication List Current Medications: Active Medications Aspirin (Asa -) 81 mg GT DAILY [facility] Last Admin: 07/13/19 11:56 Dose: 81 mg Collagenase (Santyl -) 1 applic TP DAILY [facility]; Protocol Last Admin: 07/13/19 11:56 Dose: 1 applic Heparin Sodium (Porcine) (Heparin -) 5,000 unit SQ TID [facility] Last Admin: 07/13/19 05:51 Dose: 5,000 unit Insulin Aspart (Novolog Vial Sliding Scale -) 1 vial SQ TIDAC [facility]; Protocol Last Admin: 07/13/19 12:02 Dose: Not Given Metoprolol Tartrate (Lopressor Injection -) 5 mg IVPUSH Q4H PRN PRN Reason: TACHYCARDIA Last Admin: 07/13/19 05:49 Dose: 5 mg Metoprolol Tartrate (Lopressor -) 25 mg GT BID [facility] Last Admin: 07/13/19 11:56 Dose: 25 mg - Objective Vital Signs: Vital Signs Temperature 98.6 F 07/13/19 10:00 Pulse Rate 51 L 07/13/19 10:07 Respiratory Rate 18 07/13/19 10:07 Blood Pressure 114/87 07/13/19 10:07 O2 Sat by Pulse Oximetry (%) 95 07/12/19 22:00 Constitutional: Yes: Calm Eyes: Yes: Conjunctiva Clear HENT: Yes: Atraumatic Cardiovascular: Yes: S1, S2 Respiratory: Yes: CTA Bilaterally Gastrointestinal: Yes: Soft, Other (peg) Musculoskeletal: Yes: WNL Edema: No Neurological: Yes: Confusion Labs: CBC, BMP 07/11/19 07:20 07/12/19 06:05 INR, PTT INR 1.35 (0.83-1.09) H 07/04/19 05:50 Problem List - Problems (1) Anemia Code(s): D64.9 - ANEMIA, UNSPECIFIED Qualifiers: Anemia type: unspecified type Qualified Code(s): D64.9 - Anemia, unspecified (2) ESRD (end stage renal disease) on dialysis Code(s): N18.6 - END STAGE RENAL DISEASE; Z99.2 - DEPENDENCE ON RENAL DIALYSIS Assessment/Plan Current Medications Generic Name Dose Route Start Last Admin Trade Name Freq PRN Reason Stop Dose Admin Aspirin 81 mg 10/24/19 11:30 07/13/19 11:56 Asa - GT 81 mg DAILY [facility] Administration Collagenase 1 applic 07/05/19 10:00 07/13/19 11:56 Santyl - TP 1 applic DAILY [facility] Administration Protocol Heparin Sodium (Porcine) 5,000 unit 07/05/19 06:00 07/13/19 05:51 Heparin - SQ 5,000 unit TID [facility] Administration Insulin Aspart 1 vial 07/05/19 07:00 07/13/19 12:02 Novolog Vial Sliding Scale - SQ Not Given TIDAC [facility] Protocol Metoprolol Tartrate 5 mg 07/11/19 18:49 07/13/19 05:49 Lopressor Injection - IVPUSH 5 mg Q4H PRN Administration TACHYCARDIA Metoprolol Tartrate 25 mg 07/13/19 11:30 07/13/19 11:56 Lopressor - GT 25 mg BID [facility] Administration Impression 1. ESRD 2. sepsis 3. gout 4. HTN 5. CHF 6. DM 7. hx bipolar 8. MOLLY 9. non compliance 10. bacteremia 11. lactic acidosis 12. new onset a-fib Plan - pt tolerated HD today - pt tolerating feeds - he has HD set up as outpt - off of clinimix
[2019-07-13 15:21] VITALS: BP 123/84; PULSE 118; TEMP 98.8
== END 2019-07-13 19:03 | DRG 871 ==
LOC: JER 12:06 → JERBED 19:49 → JICU 07-02 04:14 → J7W 07-04 21:25 → J4W 07-11 18:05
PROVIDERS: ADMIT Internal Medicine; ATTEND Internal Medicine
PROC: 05HM33Z Insertion of Infusion Device into Right Internal Jugular Vein, Percutaneous Approach (ICD-10-PCS; 2019-07-02)
PROC: 05HN33Z Insertion of Infusion Device into Left Internal Jugular Vein, Percutaneous Approach (ICD-10-PCS; 2019-07-03)
PROC: 0DH63UZ Insertion of Feeding Device into Stomach, Percutaneous Approach (ICD-10-PCS; principal; 2019-07-05)
PROC: 0D20XUZ Change Feeding Device in Upper Intestinal Tract, External Approach (ICD-10-PCS; 2019-07-05)
PROC: 3E0G36Z Introduction of Nutritional Substance into Upper GI, Percutaneous Approach (ICD-10-PCS; 2019-07-05)
PROC: 5A1D70Z Performance of Urinary Filtration, Intermittent, Less than 6 Hours Per Day (ICD-10-PCS; 2019-07-13)
DX: A41.9 Sepsis, unspecified organism (principal); J96.00 Acute respiratory failure, unspecified whether with hypoxia or hypercapnia; N18.6 End stage renal disease; G92 Toxic encephalopathy; R65.21 Severe sepsis with septic shock; E87.2 Acidosis; K94.22 Gastrostomy infection; I13.2 Hypertensive heart and chronic kidney disease with heart failure and with stage 5 chronic kidney disease, or end stage renal disease; I50.32 Chronic diastolic (congestive) heart failure; N39.0 Urinary tract infection, site not specified; Z99.2 Dependence on renal dialysis; M10.9 Gout, unspecified; G47.33 Obstructive sleep apnea (adult) (pediatric); I48.91 Unspecified atrial fibrillation; E78.5 Hyperlipidemia, unspecified; D64.9 Anemia, unspecified; E87.6 Hypokalemia; Y83.9 Surgical procedure, unspecified as the cause of abnormal reaction of the patient, or of later complication, without mention of misadventure at the time of the procedure; L89.152 Pressure ulcer of sacral region, stage 2; R00.0 Tachycardia, unspecified; J44.9 Chronic obstructive pulmonary disease, unspecified; F31.9 Bipolar disorder, unspecified; R94.5 Abnormal results of liver function studies; F25.0 Schizoaffective disorder, bipolar type; Z68.34 Body mass index [BMI] 34.0-34.9, adult; E11.9 Type 2 diabetes mellitus without complications; D72.829 Elevated white blood cell count, unspecified; E66.01 Morbid (severe) obesity due to excess calories; I95.9 Hypotension, unspecified; R19.7 Diarrhea, unspecified
CPT/HCPCS: 36415; 36430; 36511; 36600; 49450; 70450-TC; 70551-TC; 71045-TC-FY; 73610-TC-RT-FY; 74018-TC-FY; 74176-TC; 76000-TC-FY; 76705-TC; 80048; 80053; 81003; 82803; 82962; 83605; 83735; 84100; 84484; 85025; 85027; 85610; 85730; 86803; 86850; 86900; 86901; 86922; 87040; 87086; 87186; 87340; 93005; 93010; 93306-TC; 94660; 97116-GP; 97161-GP; 99285-25; G0480; J0131; J0885; J1644; P9038; P9047; P9058

== ENCOUNTER 2019-07-25 15:36 | Inpatient (IN) | payer OTHER ==
[2019-07-25] MEDS ORDERED: SODIUM CHLORIDE 500 ML IV STA (15:51)
--- NOTE | 2019-07-25 15:53 | PDOC ---
History of Present Illness - General Chief Complaint: Blood Pressure Problem Stated Complaint: IRREGULAR HEARTBEAT Time Seen by Provider: 07/25/19 15:53 - History of Present Illness Initial Comments: 07/25/19 16:47 HPI: 59 y/o M (only verbal to "Im Mr Pena") with hx of ESRD (, , ), HTN, HLD , CHF, COPD, gout, Bipolar Disorder, and schizophrenia [place] BIBEMS due to tachycardia and hypotension. Patient's vitals prior to beginning was HR 140s BP 90s/60s and was promptly brought to the ED. On arrival initial vitals were HR 140s with BP 60s/20s however subsequent measurements were 90s/60 and 100s/60s without intervention. Patient with right permacath and Gtube and does not voice any complaints. Also found to be febrile 101.4 PMHx: as noted above ROS: as noted SHx: unknown Allergies: NKDA ROS: unable to be performed due to lack/inability of patient participation PE: GENERAL: Awake, alert, oriented to person, NAD HEAD: No signs of trauma, normocephalic, atraumatic EYES: EOMI, sclera anicteric, conjunctiva clear ENT: Auricles normal inspection, hearing grossly normal, nares patent, oropharynx clear without exudates. Moist mucosa NECK: Normal ROM, no lymphadenopathy LUNGS: No increased work of breathing, symmetrical chest rise, clear to auscultation bilaterally, no wheezes, crackles or rhonchi HEART: tachycardic and regular rhythm, normal S1 and S2, no murmurs, peripheral pulses 2+ and equal bilaterally. ABDOMEN: Soft, gtube present with clean base without erythema, skin breakdown, nondistended, nontender, normoactive bowel sounds. No guarding, no rebound. No masses. No CVAT EXTREMITIES: Normal inspection, Normal range of motion, no edema. No clubbing or cyanosis. NEUROLOGICAL: limited by patient participation SKIN: BL lateral maleoli pressure ulcers, sacral decub ulcer stage 3 Past History - Past Medical History Allergies/Adverse Reactions: Allergies Allergy/AdvReac Type Severity Reaction Status Date / Time No Known Allergies Allergy Verified 07/01/19 12:38 Home Medications: Ambulatory Orders Acetaminophen [Tylenol] 650 mg PO ASDIR 03/08/19 Allopurinol [Zyloprim -] 100 mg PO DAILY 03/08/19 Atorvastatin Ca [Lipitor] 40 mg PO HS 03/08/19 Zinc Sulfate 220 mg PO DAILY 03/08/19 Collagenase Clostridium Hist. [Santyl -] 1 applic TP BID 07/01/19 Folic Acid 1 mg PO DAILY 07/01/19 Folic Acid/Vit B Complex and C [Dialyvite Tablet] 1 each PO DAILY 07/01/19 Aspirin [ASA -] 81 mg GT DAILY #30 tab.chew 07/13/19 Collagenase Clostridium Hist. [Santyl -] 1 applic TP DAILY #1 tube 07/13/19 Metoprolol Tartrate [Lopressor -] 25 mg GT BID #60 tablet 07/13/19 Anemia: No Cardiac Disorders: Yes (chf) COPD: No CHF: Yes Diabetes: Yes Disorders: Yes (ESRD) HTN: Yes Hypercholesterolemia: Yes Psychiatric Problems: Yes (bipolar) - Surgical History Neurologic Surgery: No - Immunization History Td Vaccination: Yes TDAP Vaccination: Yes Immunization Up to Date: Yes - Psycho Social/Smoking Cessation Hx Smoking History: Never smoked Have you smoked in the past 12 months: No Number of Cigarettes Smoked Daily: 0 Hx Alcohol Use: No Drug/Substance Use Hx: No Substance Use Type: None Hx Substance Use Treatment: No ED Treatment Course - LABORATORY CBC & Chemistry Diagram: 07/25/19 17:46 07/25/19 17:46 Medical Decision Making - Medical Decision Making 07/25/19 16:55 59 y/o M (only verbal to "Im Mr Pena") with hx of ESRD (, , ), HTN, HLD , CHF, COPD, gout, Bipolar Disorder, and schizophrenia [place] during [place] BIBEMS due to tachycardia and hypotension. Vitals in ED HR 140s BP 90-100s/60s and T101.4 -sepsis order set -renal consult; may give 500cc fluid bolus if cxr with no significant overload per Dr Raphael -admit 07/25/19 17:34 cxr: congestive changes, questionable infiltrate and atelectasis at the bases 07/25/19 18:54 WBC 19.3 negative trop lactate 1.8 will admit patient for sepsis possibly 2/2 pna signed out to night team to followup remainder of labs including bmp and ua Discharge - Discharge Information Problems reviewed: Yes Clinical Impression/Diagnosis: Sepsis Qualifiers: Sepsis type: sepsis due to unspecified organism Sepsis acute organ dysfunction status: unspecified Qualified Code(s): A41.9 - Sepsis, unspecified organism Condition: Stable - Admission Yes - Follow up/Referral Referrals: Earnestine Shah MD [Primary Care Provider] - - Patient Discharge Instructions - Post Discharge Activity
--- NOTE | 2019-07-25 17:10 | PDOC ---
Attending Attestation - Resident Resident Name: Geremias Bowen - ED Attending Attestation I have performed the following: I have examined & evaluated the patient, The case was reviewed & discussed with the resident, I agree w/resident's findings & plan, Exceptions are as noted - HPI HPI: 07/25/19 17:09 59-year-old male brought in by ambulance from dialysis for hypotension and tachycardia. He is found to be febrile - Physicial Exam PE: 07/25/19 18:34 wnwd 59 yo male looking older than stated age BIBA from dialysis for tachycardia and hypotension head ncat neck no bruits lungs no wheezing cvs sinus tachycardia buttocks left buttocks breakdown (stage 2) abd protuberant,nontender LE edema extremities right lateral malleolus ulcer neuro answers simple questions,poor historian 07/25/19 18:40 - Medical Decision Making 07/25/19 17:10 Patient is tachycardic, febrile hypotensive upon arrival and will be admitted for sepsis Past medical history end-stage renal disease on dialysis, bipolar, schizophrenia , CHF, hypertension, COPD Sepsis work-up underway Blood pressure came up to the low 100s Past medical history end-stage renal disease Patient has been seen in the emergency department by the paint preparer 07/25/19 19:19 Patient to get affirmative, vancomycin, Zosyn, Chest x-ray possible infiltrate noted Patient to be admitted for sepsis. Potassium is only 3.5
--- NOTE | 2019-07-25 17:50 | CONSULT ---
Consult Consult Specialty:: Nephrology Reason for Consultation:: ESRD - History of Present Illness Chief Complaint: sent in for tachycardia and hypotension History of Present Illness: Pt is a 59 year old male with pmhx of esrd, htn, HLD, CHF, COPD, bipolar and schizophrenia who was sent in for hypotension and tachycardia. He was found to be hypotensive in the ER. He did not get his HD today. He is awake and his mental status is at baseline. he denies shortness of breath. He was also found to be febrile. History is limited secondary to mental status. - History Source History Provided By: Medical Record - Past Medical History Cardio/Vascular: Yes: CHF, HTN, Hyperlipdemia Pulmonary: Yes: COPD Renal/: Yes: Renal Failure, Renal Inusuff, Hemodialysis Psych: Yes: Bipolar, Schizophrenia Musculoskeletal: Yes: Other (Slight edema of the skin in left buttock , no pain , not tender, there is superficial breakdown of the skin of left buttock.) Rheumatology: Yes: Gout Additional Medical History: obesity, non compliance - Past Surgical History Past Surgical History: Yes: None - Alcohol/Substance Use Hx Alcohol Use: No History of Substance Use: reports: None - Smoking History Smoking history: Never smoked Have you smoked in the past 12 months: No Aproximately how many cigarettes per day: 0 - Social History Usual Living Arrangement: Alf ADL: Support Services Occupation: disability History of Recent Travel: No Home Medications - Allergies Allergies/Adverse Reactions: Allergies Allergy/AdvReac Type Severity Reaction Status Date / Time No Known Allergies Allergy Verified 07/01/19 12:38 - Home Medications Home Medications: Ambulatory Orders Acetaminophen [Tylenol] 650 mg PO ASDIR 03/08/19 Allopurinol [Zyloprim -] 100 mg PO DAILY 03/08/19 Atorvastatin Ca [Lipitor] 40 mg PO HS 03/08/19 Zinc Sulfate 220 mg PO DAILY 03/08/19 Collagenase Clostridium Hist. [Santyl -] 1 applic TP BID 07/01/19 Folic Acid 1 mg PO DAILY 07/01/19 Folic Acid/Vit B Complex and C [Dialyvite Tablet] 1 each PO DAILY 07/01/19 Aspirin [ASA -] 81 mg GT DAILY #30 tab.chew 07/13/19 Collagenase Clostridium Hist. [Santyl -] 1 applic TP DAILY #1 tube 07/13/19 Metoprolol Tartrate [Lopressor -] 25 mg GT BID #60 tablet 07/13/19 Family Medical History Family History: Denies Review of Systems Unable to obtain ROS, reason: poor historian - Review of Systems Constitutional: reports: Malaise Eyes: reports: No Symptoms Neck: reports: No Symptoms Physical Exam Vital Signs: Vital Signs Temperature 101.4 F H 07/25/19 16:00 Pulse Rate 149 H 07/25/19 16:40 Respiratory Rate 38 H 07/25/19 16:40 Blood Pressure 101/78 07/25/19 16:40 O2 Sat by Pulse Oximetry (%) 97 07/25/19 16:40 Constitutional: Yes: Calm Eyes: Yes: Conjunctiva Clear HENT: Yes: Atraumatic Cardiovascular: Yes: S1, S2 Respiratory: Yes: CTA Bilaterally Gastrointestinal: Yes: Soft, Abdomen, Obese Renal/: Yes: Incontinence Musculoskeletal: Yes: Other (sacral ulcer) Edema: No Neurological: Yes: Confusion Imaging - Results Chest X-ray: Report Reviewed Assessment/Plan Impression 1. ESRD 2. sepsis 3. gout 4. HTN 5. CHF 6. DM 7. hx bipolar 8. MOLLY 9. non compliance 10. bacteremia 11. lactic acidosis 12. new onset a-fib Plan - discussed with ER - draw admission labs - send sepsis workup - will need iv access - er to call with labs
[2019-07-25 18:16] LABS: VENOUS PC02 39.3 mmHg (38-52); VENOUS PH 7.41 (7.31-7.41)
[2019-07-25 18:18] LABS: VENOUS PO2 < 49 mmHg (28-48)
[2019-07-25] MEDS ORDERED: VANCOMYCIN 1 GM PREMIX - 1 GM/200 ML BAG IVPB ONE (18:19)
[2019-07-25] MEDS ORDERED: PIPERACILLIN/TAZOB 3.375 GM 3.375 GM in DEXTROSE 5%-WATER - 50 ML IVPB ONE (18:19)
[2019-07-25 18:32] LABS: BASO % 0.2 % (0-2.0); EOS % 0.5 % (0-4.5); HEMATOCRIT 26.2 % (35.4-49); HEMOGLOBIN 8.3 GM/dL (11.7-16.9); LYMPH % 3.7 % (8-40); MCH 25.7 pg (25.7-33.7); MCHC 31.9 g/dl (32.0-35.9); MEAN CELL VOLUME 80.5 fl (80-96); MEAN PLT VOLUME 8.8 fl (7.5-11.1); MONO % 8.6 % (3.8-10.2); PLATELET COUNT 455 K/MM3 (134-434); RBC 3.25 M/mm3 (4.00-5.60); RDW 18.7 % (11.9-15.9); WHITE BLOOD COUNT 19.3 K/mm3 (4.0-10.0)
[2019-07-25 19:01] LABS: ALBUMIN 1.7 g/dl (3.4-5.0); ALK PHOS 192 U/L (45-117); ANION GAP 14 MMOL/L (8-16); BILIRUBIN,TOTAL 0.3 mg/dL (0.2-1); CALCIUM 9.2 mg/dL (8.5-10.1); CHLORIDE 93 mmol/L (98-107); CO2 25 mmol/L (21-32); CREATININE 5.8 mg/dL (0.55-1.3); GLUCOSE,RANDOM 102 mg/dL (74-106); POTASSIUM 3.5 mmol/L (3.5-5.1); SGOT/AST 194 U/L (15-37); SGPT/ALT 192 U/L (13-61); SODIUM 131 mmol/L (136-145); TOT PROT 7.3 g/dl (6.4-8.2)
[2019-07-25] MEDS ORDERED: ACETAMINOPHEN 1000 MG/100 ML VIAL (NON FORMULARY) IVPB ONE (19:06)
[2019-07-25] MEDS ORDERED: VANCOMYCIN 1 GRAM (PRE-DOCKED) 1,000 MG/250 ML BAG IVPB ONE (19:19)
[2019-07-25] MEDS ORDERED: PIPERACILLIN/TAZOB 3.375 GM 3.375 GM/50 ML BAG IVPB ONE (19:19)
[2019-07-25] MEDS ORDERED: ACETAMINOPHEN INJECTION 100 ML IVPB ONE (19:20)
--- NOTE | 2019-07-25 19:22 | PDOC ---
*Physical Exam - Vital Signs Last Vital Signs Temp Pulse Resp BP Pulse Ox 101.4 F H 149 H 38 H 101/78 97 07/25/19 16:00 07/25/19 16:40 07/25/19 16:40 07/25/19 16:40 07/25/19 16:40 ED Treatment Course - LABORATORY CBC & Chemistry Diagram: 07/28/19 05:45 07/27/19 06:40 - ADDITIONAL ORDERS Additional order review: Laboratory Results 07/25/19 07/25/19 07/25/19 17:46 17:46 17:46 VBG pH 7.41 POC VBG pCO2 39.3 POC VBG pO2 < 49 H VBG HCO3 24.5 VBG O2 Sat (Maylin) 60.6 L VBG Base Excess 0.4 Sodium 131 L Potassium 3.5 Chloride 93 L Carbon Dioxide 25 Anion Gap 14 BUN 87.0 H Creatinine 5.8 H Est GFR (CKD-EPI)AfAm 11.51 Est GFR (CKD-EPI)NonAf 9.93 Random Glucose 102 Lactic Acid 1.8 Calcium 9.2 Magnesium 2.0 Total Bilirubin 0.3 AST 194 H ALT 192 H Alkaline Phosphatase 192 H Creatine Kinase 41 CK-MB (CK-2) 1.3 Troponin I < 0.02 Total Protein 7.3 Albumin 1.7 L 07/25/19 17:46 VBG pH POC VBG pCO2 POC VBG pO2 VBG HCO3 VBG O2 Sat (Maylin) VBG Base Excess Sodium Potassium Chloride Carbon Dioxide Anion Gap BUN Creatinine Est GFR (CKD-EPI)AfAm Est GFR (CKD-EPI)NonAf Random Glucose Lactic Acid Calcium Magnesium Total Bilirubin AST ALT Alkaline Phosphatase Creatine Kinase CK-MB (CK-2) Troponin I < 0.02 Total Protein Albumin 07/25/19 17:46 RBC 3.25 L MCV 80.5 MCHC 31.9 L RDW 18.7 H MPV 8.8 D Neutrophils % 87.0 H Lymphocytes % 3.7 L D Monocytes % 8.6 Eosinophils % 0.5 D Basophils % 0.2 - Medications Given in the ED: ED Medications Discontinued Medications Generic Name Dose Route Start Last Admin Trade Name Freq PRN Reason Stop Dose Admin Sodium Chloride 500 mls @ 500 mls/hr 07/25/19 15:51 07/25/19 18:17 Normal Saline - IV 07/25/19 16:50 500 mls/hr ASDIR STA Administration Medical Decision Making - Medical Decision Making 07/25/19 19:19 signed out from day team T101.4 rectal sepsis cxr b/l infil vanc/zosyn renal on board - HD after stabilize f/u chem admit 07/25/19 19:24 day team endorsed pt to MAR shortly after sign out ADMITTED Tele Discharge - Discharge Information Problems reviewed: Yes Clinical Impression/Diagnosis: Sepsis Qualifiers: Sepsis type: sepsis due to unspecified organism Sepsis acute organ dysfunction status: unspecified Qualified Code(s): A41.9 - Sepsis, unspecified organism Condition: Stable - Follow up/Referral - Patient Discharge Instructions - Post Discharge Activity
--- NOTE | 2019-07-25 19:56 | HP ---
Admitting History and Physical - Primary Care Physician PCP: - Admission Chief Complaint: hypotension, tachycardia History of Present Illness: 59 year old morbidly obese male from [place] who is non-verbal with a PMHx of ESRD ( , , ), HTN, HLD, CHF, COPD, Gout, Bipolar Disorder, and schizophrenia arrived to Emergency department for hypotension and tachycardia. Patient vitals prior to having dialysis were HR 140s and BP 90/60 which prompted ED visit. In ED patient noted with Hr in 140s BP fluctuating (90/60 -- 100/60). Patient does not speak, occasionally shakes his head and answers "yes" to some questions. Patient has right perma-cath for dialysis, and G-tube. History is limited due to mental status History Source: Medical Record, Transfer Record Limitations to Obtaining History: Physical Impairment (Non-verbal) - Past Medical History Cardiovascular: Yes: CHF, HTN, Hyperlipdemia Pulmonary: Yes: COPD Renal/: Yes: Renal Failure, Renal Inusuff, Hemodialysis Psych: Yes: Bipolar, Schizophrenia Rheumatology: Yes: Gout Dermatology: Yes: Other ( BL lateral maleoli pressure ulcers, sacral decub ulcer stage 3) - Past Surgical History Past Surgical History: Yes: None - Smoking History Smoking history: Never smoked Have you smoked in the past 12 months: No Aproximately how many cigarettes per day: 0 - Alcohol/Substance Use Hx Alcohol Use: No History of Substance Use: reports: None - Social History Usual Living Arrangement: Yes: Residential ADL: Support Services Occupation: disability History of Recent Travel: No Home Medications - Allergies Allergies/Adverse Reactions: Allergies Allergy/AdvReac Type Severity Reaction Status Date / Time No Known Allergies Allergy Verified 07/01/19 12:38 - Home Medications Home Medications: Ambulatory Orders Acetaminophen [Tylenol] 650 mg PO ASDIR 03/08/19 Allopurinol [Zyloprim -] 100 mg PO DAILY 03/08/19 Atorvastatin Ca [Lipitor] 40 mg PO HS 03/08/19 Zinc Sulfate 220 mg PO DAILY 03/08/19 Collagenase Clostridium Hist. [Santyl -] 1 applic TP BID 07/01/19 Folic Acid 1 mg PO DAILY 07/01/19 Folic Acid/Vit B Complex and C [Dialyvite Tablet] 1 each PO DAILY 07/01/19 Aspirin [ASA -] 81 mg GT DAILY #30 tab.chew 07/13/19 Collagenase Clostridium Hist. [Santyl -] 1 applic TP DAILY #1 tube 07/13/19 Metoprolol Tartrate [Lopressor -] 25 mg GT BID #60 tablet 07/13/19 Family Medical History Family History: Unable to Obtain Review of Systems Unable to obtain ROS, reason: non-verbal Physical Examination Vital Signs: Vital Signs Temperature 101.4 F H 07/25/19 16:00 Pulse Rate 149 H 07/25/19 16:40 Respiratory Rate 38 H 07/25/19 16:40 Blood Pressure 101/78 07/25/19 16:40 O2 Sat by Pulse Oximetry (%) 97 07/25/19 16:40 Constitutional: Yes: Calm, Obese Eyes: Yes: Conjunctiva Clear, EOM Intact HENT: Yes: Atraumatic, Normocephalic Neck: Yes: Supple, Trachea Midline Cardiovascular: Yes: Regular Rate and Rhythm, Tachycardia, S1, S2 Respiratory: Yes: Regular, CTA Bilaterally Gastrointestinal: Yes: Normal Bowel Sounds, Soft, Abdomen, Obese, Other (G-tube) Musculoskeletal: Yes: WNL Extremities: Yes: WNL Edema: No Peripheral Pulses WNL: Yes Integumentary: Yes: Pressure Ulcer ( B/L lateral maleoli pressure ulcers, sacral decub ulcer stage 3) Neurological: Yes: Other (awake, non-verbal) Labs: CBC, BMP 07/25/19 17:46 07/25/19 17:46 Imaging - Results Chest X-ray: Report Reviewed (Chest x-ray possible infiltrate noted) EKG: Report Reviewed (rate @ 144 Supraventricular tachycardia with occisonal premature ventricular complexes) Other: Report Reviewed (WBC 19.3 lactate 1.8 trop:negative) Problem List - Problems (1) Sepsis Code(s): A41.9 - SEPSIS, UNSPECIFIED ORGANISM Qualifiers: Sepsis type: sepsis due to unspecified organism Sepsis acute organ dysfunction status: unspecified Qualified Code(s): A41.9 - Sepsis, unspecified organism (2) Hospital-acquired pneumonia Code(s): J18.9 - PNEUMONIA, UNSPECIFIED ORGANISM; Y95 - NOSOCOMIAL CONDITION (3) Elevated liver enzymes Code(s): R74.8 - ABNORMAL LEVELS OF OTHER SERUM ENZYMES (4) Hypertension Code(s): I10 - ESSENTIAL (PRIMARY) HYPERTENSION (5) CHF (congestive heart failure) Code(s): I50.9 - HEART FAILURE, UNSPECIFIED (6) COPD (chronic obstructive pulmonary disease) Code(s): J44.9 - CHRONIC OBSTRUCTIVE PULMONARY DISEASE, UNSPECIFIED (7) Sacral decubitus ulcer, stage III Code(s): L89.153 - PRESSURE ULCER OF SACRAL REGION, STAGE 3 (8) ESRD (end stage renal disease) on dialysis Code(s): N18.6 - END STAGE RENAL DISEASE; Z99.2 - DEPENDENCE ON RENAL DIALYSIS (9) Gout Code(s): M10.9 - GOUT, UNSPECIFIED (10) HLD (hyperlipidemia) Code(s): E78.5 - HYPERLIPIDEMIA, UNSPECIFIED (11) Schizo affective schizophrenia Code(s): F25.0 - SCHIZOAFFECTIVE DISORDER, BIPOLAR TYPE (12) Bipolar 1 disorder Code(s): F31.9 - BIPOLAR DISORDER, UNSPECIFIED (13) Hypertension Code(s): I10 - ESSENTIAL (PRIMARY) HYPERTENSION Qualifiers: Hypertension type: unspecified Qualified Code(s): I10 - Essential (primary ) hypertension Assessment/Plan 59 year old morbidly obese male from [place] who is non-verbal with a PMHx of ESRD ( , , ), HTN, HLD, CHF, COPD, Gout, Bipolar Disorder, and schizophrenia arrived to Emergency department for hypotension and tachycardia. Patient vitals prior to having dialysis were HR 140s and BP 90/60 which prompted ED visit. In ED patient noted with Hr in 140s BP fluctuating (90/60 -- 100/60). Patient does not speak, occasionally shakes his head and answers "yes" to some questions. Patient has right perma-cath for dialysis, and G-tube. History is limited due to mental status # Sepsis hospital acquired pneumonia -CXR: congestion ? possible infiltrate at bases -WBC 19.3, lactate 1.8 -negative trop -In ED given Tyelnol IV, Vanco and Zosyn -continue with zosyn 3.335 mg q 8 hours -follow up ID in AM -Pending SHEPHERD culture -trend labs -tylnol q 4 hours PRN # ESRD ON HD (, , ) - seen by nephrology in ED - ED consulted with nephro gave 500cc fluid bolus x1 - monitor BMP closely - possible dialysis tomorrow - nephrology to follow in AM #Anemia - hgb: 8.3 - monitor H/H trend closely # Elevated LFTs AST: 194 ALT:192 Alakaline phos: 192 - improved from recent visit, monitor trend #HTN/ HLD #CHF - monitor BP closely - hold antihypertensive - continue with lipitor 40 mg HS - fluids restriction - Monitor I &O - follow up cardiology in AM #COPD - nebulizer PRN as needed #GOUT - continue with Zyloprim 100mg daily # Bipolar #Schizophrenia - not on any psych meds - monitor for acute behavioral changes - safety/fall precaution # Saclar ulcer # B/L lateral maleoli pressure ulcer - local wound care with santyl - turn & position - pain management Diet: PEG feeds DVT: Heparin SQ, SCD Visit type - Emergency Visit Emergency Visit: Yes ED Registration Date: 07/25/19 Care time: The patient presented to the Emergency Department on the above date and was hospitalized for further evaluation of their emergent condition. - New Patient This patient is new to me today: Yes Date on this admission: 07/25/19 - Critical Care Critical Care patient: No
[2019-07-25] MEDS ORDERED: ACETAMINOPHEN 325 MG TABLET (FP) PO PRN (20:23)
[2019-07-25 21:11] LABS: EPI CELLS 13.2 /HPF (0-5/HPF); HYALINE CASTS 15 /lpf (0-8); PH,URINE 8.5 (5.0-8.0); URINE APPEARANCE CLOUDY; URINE BACTERIA 3.6 /hpf (NEGATIVE); URINE BILIRUBIN NEGATIVE (NEGATIVE); URINE COLOR YELLOW; URINE GLUCOSE (UA) NEGATIVE (NEGATIVE); URINE KETONE NEGATIVE (NEGATIVE); URINE LEUK ESTERASE TRACE (NEGATIVE); URINE NITRITE NEGATIVE (NEGATIVE); URINE PROTEIN 4+ (NEGATIVE); URINE RBC 27 /hpf (0-4); URINE UROBILINOGEN 0.2 mg/dL (0.2-1.0); URINE WBC 13 /hpf (0-5)
[2019-07-25] MEDS ORDERED: ATORVASTATIN CA 40 MG TABLET (FP) PO SCH (22:00)
[2019-07-25] MEDS ORDERED: ALBUTEROL SO4 2.5/IPRATROPIUM 0.5 INH SOL 3 ML VIAL.NEB. NEB PRN (22:58)
[2019-07-25] MEDS ORDERED: ATORVASTATIN CA 40 MG TABLET (FP) ONE (23:05)
[2019-07-26] MEDS ORDERED: ATORVASTATIN CA 40 MG TABLET (FP) PEG SCH (00:40)
[2019-07-26] MEDS ORDERED: DEXTROSE 5%-WATER - 50 ML IVPB ONE ×3 (02:03→17:29)
[2019-07-26] MEDS ORDERED: PIPERACILLIN/TAZOBACTAM 3.375 GM VIAL IVPB ONE ×2 (02:03→11:28)
[2019-07-26] MEDS: PIPERACILLIN/TAZOB 3.375 GM 3.375 GM in DEXTROSE 5%-WATER - 50 ML IVPB SCH ×3 (02:07→17:03)
[2019-07-26] MEDS ORDERED: IPRATROPIUM BR 0.02% 0.5 MG/2.5 ML VIAL.NEB. NEB PRN (05:33)
[2019-07-26] MEDS ORDERED: ACETAMINOPHEN 1000 MG/100 ML VIAL (NON FORMULARY) IVPB ONE ×2 (05:50→20:15)
[2019-07-26 06:50] LABS: BASO % 0.3 % (0-2.0); EOS % 0.8 % (0-4.5); HEMATOCRIT 25.4 % (35.4-49); HEMOGLOBIN 8.2 GM/dL (11.7-16.9); MCH 25.9 pg (25.7-33.7); MCHC 32.3 g/dl (32.0-35.9); MEAN CELL VOLUME 80.1 fl (80-96); MEAN PLT VOLUME 8.2 fl (7.5-11.1); NEUT % 87.9 % (42.8-82.8); PLATELET COUNT 414 K/MM3 (134-434); RBC 3.17 M/mm3 (4.00-5.60); RDW 18.8 % (11.9-15.9); WHITE BLOOD COUNT 19.7 K/mm3 (4.0-10.0)
[2019-07-26 07:18] LABS: ALBUMIN 1.6 g/dl (3.4-5.0); BILIRUBIN,TOTAL 0.5 mg/dL (0.2-1); BLOOD UREA NITROGEN 98.8 mg/dL (7-18); CALCIUM 9.6 mg/dL (8.5-10.1); CREATININE 6.3 mg/dL (0.55-1.3); POTASSIUM 3.9 mmol/L (3.5-5.1); TOT PROT 7.2 g/dl (6.4-8.2)
[2019-07-26] MEDS ORDERED: ALLOPURINOL 100 MG TABLET (FP) PO SCH (10:00)
--- NOTE | 2019-07-26 10:35 | PN ---
Progress Note (short form) - Note Progress Note: Pt drowsy but he pulled out his IV line and NC o2 events noted High temps this AM Vital Signs - 24 hr 07/25/19 07/25/19 07/25/19 15:49 16:00 16:02 Temperature 98 F 101.4 F H Pulse Rate 142 H Pulse Rate [ 147 H Apical] Respiratory 37 H 38 H Rate Blood Pressure 37/27 L Blood Pressure 97/63 [Left Arm] O2 Sat by Pulse 96 97 96 Oximetry (%) 07/25/19 07/25/19 07/25/19 16:40 20:16 20:33 Temperature Pulse Rate Pulse Rate [ 149 H 146 H Apical] Respiratory 38 H 35 H Rate Blood Pressure Blood Pressure 101/78 117/86 [Left Arm] O2 Sat by Pulse 97 97 98 Oximetry (%) 07/25/19 07/26/19 07/26/19 23:00 02:03 06:00 Temperature 99.1 F 98.1 F 102.5 F H Pulse Rate 126 H 107 H 138 H Pulse Rate [ 125 H Apical] Respiratory 36 H 18 18 Rate Blood Pressure 103/62 107/72 100/68 Blood Pressure 98/40 L [Left Arm] O2 Sat by Pulse 98 Oximetry (%) Current Medications Generic Name Dose Route Start Last Admin Trade Name Freq PRN Reason Stop Dose Admin Acetaminophen 650 mg 07/26/19 00:41 Tylenol Suppository - MS Q6H PRN FEVER Allopurinol 100 mg 07/26/19 10:00 Zyloprim - PEG DAILY [facility] Atorvastatin Calcium 40 mg 07/26/19 00:40 Lipitor - PEG HS RONALD Collagenase 1 applic 07/26/19 10:00 Santyl - TP DAILY [facility] Protocol Heparin Sodium (Porcine) 5,000 unit 07/26/19 10:00 Heparin - SQ BID RONALD Piperacillin Sod/Tazobactam 50 mls @ 100 mls/hr 07/26/19 02:00 Sod 3.375 gm/ Dextrose IVPB 07/31/19 23:59 Q8H-IV RONALD Piperacillin Sod/Tazobactam 50 mls @ 100 mls/hr 07/26/19 02:00 07/26/19 02:07 Sod 3.375 gm/ Dextrose IVPB 07/26/19 18:29 100 mls/hr Q8H-IV RONALD Administration Ipratropium [place] 1 amp 07/26/19 05:33 07/26/19 06:28 Atrovent 0.02% Nebulizer - NEB 1 amp RQID PRN Administration WHEEZING Laboratory Results - last 24 hr 07/25/19 07/25/19 07/25/19 08:35 17:46 17:46 WBC RBC Hgb Hct MCV MCH MCHC RDW Plt Count MPV Absolute Neuts (auto) Neutrophils % Lymphocytes % Monocytes % Eosinophils % Basophils % Nucleated RBC % PT with INR Cancelled INR Cancelled PTT (Actin FS) Cancelled VBG pH POC VBG pCO2 POC VBG pO2 VBG HCO3 VBG O2 Sat (Maylin) VBG Base Excess Sodium Potassium Chloride Carbon Dioxide Anion Gap BUN Creatinine Est GFR (CKD-EPI)AfAm Est GFR (CKD-EPI)NonAf Random Glucose Lactic Acid Calcium Magnesium Total Bilirubin AST ALT Alkaline Phosphatase Creatine Kinase CK-MB (CK-2) Troponin I < 0.02 Total Protein Albumin Urine Color Urine Appearance Urine pH Ur Specific [place] Urine Protein Urine Glucose (UA) Urine Ketones Urine Blood Urine Nitrite Urine Bilirubin Urine Urobilinogen Ur Leukocyte Esterase Urine WBC (Auto) Urine RBC (Auto) Urine Casts (Auto) U Pathogenic Cast Auto U Epithel Cells (Auto) Urine Bacteria (Auto) Blood Type A POSITIVE Antibody Screen Negative 07/25/19 07/25/19 07/25/19 17:46 17:46 17:46 WBC 19.3 H RBC 3.25 L Hgb 8.3 L Hct 26.2 L MCV 80.5 MCH 25.7 MCHC 31.9 L RDW 18.7 H Plt Count 455 H D MPV 8.8 D Absolute Neuts (auto) 16.8 H Neutrophils % 87.0 H Lymphocytes % 3.7 L D Monocytes % 8.6 Eosinophils % 0.5 D Basophils % 0.2 Nucleated RBC % 0 PT with INR INR PTT (Actin FS) VBG pH POC VBG pCO2 POC VBG pO2 VBG HCO3 VBG O2 Sat (Maylin) VBG Base Excess Sodium 131 L Potassium 3.5 Chloride 93 L Carbon Dioxide 25 Anion Gap 14 BUN 87.0 H Creatinine 5.8 H Est GFR (CKD-EPI)AfAm 11.51 Est GFR (CKD-EPI)NonAf 9.93 Random Glucose 102 Lactic Acid 1.8 Calcium 9.2 Magnesium 2.0 Total Bilirubin 0.3 AST 194 H ALT 192 H Alkaline Phosphatase 192 H Creatine Kinase 41 CK-MB (CK-2) 1.3 Troponin I < 0.02 Total Protein 7.3 Albumin 1.7 L Urine Color Urine Appearance Urine pH Ur Specific [place] Urine Protein Urine Glucose (UA) Urine Ketones Urine Blood Urine Nitrite Urine Bilirubin Urine Urobilinogen Ur Leukocyte Esterase Urine WBC (Auto) Urine RBC (Auto) Urine Casts (Auto) U Pathogenic Cast Auto U Epithel Cells (Auto) Urine Bacteria (Auto) Blood Type Antibody Screen 07/25/19 07/25/19 07/26/19 17:46 20:26 06:20 WBC 19.7 H RBC 3.17 L Hgb 8.2 L Hct 25.4 L MCV 80.1 MCH 25.9 MCHC 32.3 RDW 18.8 H Plt Count 414 MPV 8.2 Absolute Neuts (auto) 17.3 H Neutrophils % 87.9 H Lymphocytes % 3.0 L Monocytes % 8.0 Eosinophils % 0.8 Basophils % 0.3 Nucleated RBC % 0 PT with INR INR PTT (Actin FS) VBG pH 7.41 POC VBG pCO2 39.3 POC VBG pO2 < 49 H VBG HCO3 24.5 VBG O2 Sat (Maylin) 60.6 L VBG Base Excess 0.4 Sodium Potassium Chloride Carbon Dioxide Anion Gap BUN Creatinine Est GFR (CKD-EPI)AfAm Est GFR (CKD-EPI)NonAf Random Glucose Lactic Acid Calcium Magnesium Total Bilirubin AST ALT Alkaline Phosphatase Creatine Kinase CK-MB (CK-2) Troponin I Total Protein Albumin Urine Color Yellow Urine Appearance Cloudy Urine pH 8.5 H D Ur Specific [place] 1.021 Urine Protein 4+ H Urine Glucose (UA) Negative Urine Ketones Negative Urine Blood 2+ H Urine Nitrite Negative Urine Bilirubin Negative Urine Urobilinogen 0.2 Ur Leukocyte Esterase Trace Urine WBC (Auto) 13 Urine RBC (Auto) 27 Urine Casts (Auto) 15 U Pathogenic Cast Auto None seen U Epithel Cells (Auto) 13.2 Urine Bacteria (Auto) 3.6 Blood Type Antibody Screen 07/26/19 06:20 WBC RBC Hgb Hct MCV MCH MCHC RDW Plt Count MPV Absolute Neuts (auto) Neutrophils % Lymphocytes % Monocytes % Eosinophils % Basophils % Nucleated RBC % PT with INR INR PTT (Actin FS) VBG pH POC VBG pCO2 POC VBG pO2 VBG HCO3 VBG O2 Sat (Maylin) VBG Base Excess Sodium 131 L Potassium 3.9 Chloride 94 L Carbon Dioxide 24 Anion Gap 13 BUN 98.8 H Creatinine 6.3 H Est GFR (CKD-EPI)AfAm 10.42 Est GFR (CKD-EPI)NonAf 8.99 Random Glucose 100 Lactic Acid Calcium 9.6 Magnesium Total Bilirubin 0.5 AST 238 H ALT 213 H Alkaline Phosphatase 191 H Creatine Kinase CK-MB (CK-2) Troponin I Total Protein 7.2 Albumin 1.6 L Urine Color Urine Appearance Urine pH Ur Specific [place] Urine Protein Urine Glucose (UA) Urine Ketones Urine Blood Urine Nitrite Urine Bilirubin Urine Urobilinogen Ur Leukocyte Esterase Urine WBC (Auto) Urine RBC (Auto) Urine Casts (Auto) U Pathogenic Cast Auto U Epithel Cells (Auto) Urine Bacteria (Auto) Blood Type Antibody Screen S1 S2 RRR Lungs decreased Abd- soft, NT, Peg+ No edema PLAN restraints-- mittens to prevent him from pulling out iv line , O2 NC iv antibiotics noted elevated LFT-- will dc Lipitor check sono abd continue with med cultures pending ID eval HR now 110 Problem List - Problems (1) CHF (congestive heart failure) Code(s): I50.9 - HEART FAILURE, UNSPECIFIED (2) COPD (chronic obstructive pulmonary disease) Code(s): J44.9 - CHRONIC OBSTRUCTIVE PULMONARY DISEASE, UNSPECIFIED (3) Elevated liver enzymes Code(s): R74.8 - ABNORMAL LEVELS OF OTHER SERUM ENZYMES (4) Sepsis Code(s): A41.9 - SEPSIS, UNSPECIFIED ORGANISM Qualifiers: Sepsis type: sepsis due to unspecified organism Sepsis acute organ dysfunction status: unspecified Qualified Code(s): A41.9 - Sepsis, unspecified organism (5) Acute metabolic encephalopathy Code(s): G93.41 - METABOLIC ENCEPHALOPATHY (6) ESRD (end stage renal disease) on dialysis Code(s): N18.6 - END STAGE RENAL DISEASE; Z99.2 - DEPENDENCE ON RENAL DIALYSIS (7) Elevated LFTs Code(s): R94.5 - ABNORMAL RESULTS OF LIVER FUNCTION STUDIES
--- NOTE | 2019-07-26 10:38 | EKG ---
Test Reason : Blood Pressure : / mmHG Vent. Rate : 144 BPM Atrial Rate : 202 BPM P-R Int : 000 ms QRS Dur : 090 ms QT Int : 352 ms P-R-T Axes : 000 -27 037 degrees QTc Int : 545 ms SUPRAVENTRICULAR TACHYCARDIA WITH OCCASIONAL PREMATURE VENTRICULAR COMPLEXES LOW VOLTAGE QRS INFERIOR INFARCT (CITED ON OR BEFORE 21-JAN-2019) CANNOT RULE OUT ANTERIOR INFARCT , AGE UNDETERMINED ABNORMAL ECG WHEN COMPARED WITH ECG OF 11-JUL-2019 15:04, SINUS RHYTHM HAS REPLACED ATRIAL FIBRILLATION MINIMAL CRITERIA FOR ANTERIOR INFARCT ARE NOW PRESENT NONSPECIFIC T WAVE ABNORMALITY NO LONGER EVIDENT IN LATERAL LEADS Confirmed by FRANCIS CHAO, CARMINE ([id number]) on 07/26/2019 10:38:21 AM Referred By: Confirmed By:CARMINE BLANCO MD
[2019-07-26] MEDS: ALLOPURINOL 100 MG TABLET (FP) PEG SCH (11:32)
[2019-07-26] MEDS: HEPARIN NA (PORCINE) 5,000 UNITS/ML 1ML VIAL SQ SCH ×2 (11:33→21:16)
--- NOTE | 2019-07-26 11:55 | PN ---
Progress Note, Physician History of Present Illness: Pt seen and examined at bedside. He is more lethargic today. - Current Medication List Current Medications: Active Medications Acetaminophen (Tylenol Suppository -) 650 mg GA Q6H PRN PRN Reason: FEVER Allopurinol (Zyloprim -) 100 mg PEG DAILY [facility] Last Admin: 07/26/19 11:32 Dose: 100 mg Amino Acids (Prosource No Carb Liquid Pkt) 30 ml PO BID@0800,1730 RONALD Collagenase (Santyl -) 1 applic TP DAILY [facility]; Protocol Heparin Sodium (Porcine) (Heparin -) 5,000 unit SQ BID [facility] Last Admin: 07/26/19 11:33 Dose: 5,000 unit Piperacillin Sod/Tazobactam (Sod 3.375 gm/ Dextrose) 50 mls @ 100 mls/hr IVPB Q8H-IV [facility] Stop: 07/31/19 23:59 Piperacillin Sod/Tazobactam (Sod 3.375 gm/ Dextrose) 50 mls @ 100 mls/hr IVPB Q8H-IV [facility] Stop: 07/26/19 18:29 Last Admin: 07/26/19 11:32 Dose: 100 mls/hr Ipratropium [place] (Atrovent 0.02% Nebulizer -) 1 amp NEB RQID PRN PRN Reason: WHEEZING Last Admin: 07/26/19 06:28 Dose: 1 amp - Objective Vital Signs: Vital Signs Temperature 102.5 F H 07/26/19 06:00 Pulse Rate 138 H 07/26/19 06:00 Respiratory Rate 18 07/26/19 06:00 Blood Pressure 100/68 07/26/19 06:00 O2 Sat by Pulse Oximetry (%) 98 07/25/19 23:00 Constitutional: Yes: Calm Eyes: Yes: Conjunctiva Clear HENT: Yes: Atraumatic Neck: Yes: Supple Cardiovascular: Yes: S1, S2 Respiratory: Yes: On Nasal O2 Gastrointestinal: Yes: Normal Bowel Sounds, Soft Genitourinary: Yes: Incontinence Musculoskeletal: Yes: Muscle Weakness Edema: No Neurological: Yes: Lethargy Labs: CBC, BMP 07/26/19 06:20 07/26/19 06:20 INR, PTT INR Cancelled 07/25/19 17:46 Assessment/Plan Current Medications Generic Name Dose Route Start Last Admin Trade Name Freq PRN Reason Stop Dose Admin Acetaminophen 650 mg 07/26/19 00:41 Tylenol Suppository - GA Q6H PRN FEVER Allopurinol 100 mg 07/26/19 10:00 07/26/19 11:32 Zyloprim - PEG 100 mg DAILY RONALD Administration Amino Acids 30 ml 07/26/19 17:30 Prosource No Carb Liquid Pkt PO BID@0800,1730 RONALD Collagenase 1 applic 07/26/19 10:00 Santyl - TP DAILY [facility] Protocol Heparin Sodium (Porcine) 5,000 unit 07/26/19 10:00 07/26/19 11:33 Heparin - SQ 5,000 unit BID RONALD Administration Piperacillin Sod/Tazobactam 50 mls @ 100 mls/hr 07/26/19 02:00 Sod 3.375 gm/ Dextrose IVPB 07/31/19 23:59 Q8H-IV RONALD Piperacillin Sod/Tazobactam 50 mls @ 100 mls/hr 07/26/19 02:00 07/26/19 11:32 Sod 3.375 gm/ Dextrose IVPB 07/26/19 18:29 100 mls/hr Q8H-IV RONALD Administration Ipratropium [place] 1 amp 07/26/19 05:33 07/26/19 06:28 Atrovent 0.02% Nebulizer - NEB 1 amp RQID PRN Administration WHEEZING Impression 1. ESRD 2. sepsis 3. gout 4. HTN 5. CHF 6. DM 7. hx bipolar 8. MOLLY 9. non compliance 10. bacteremia 11. lactic acidosis 12. new onset a-fib Plan - will arrange for HD today - will not UF volume as bp is low - pulse is improved at 110 - will dialyze in tele at bedside
[2019-07-26] MEDS ORDERED: SODIUM CHLORIDE 250 ML IV PRN (11:56)
[2019-07-26] MEDS ORDERED: EPOETIN ALFA 10,000 UNIT/1 ML VIAL IVPUSH ONE (12:00)
[2019-07-26] MEDS: COLLAGENASE CLOSTRIDIUM HIST. 30 GRAMS TUBE TP SCH (14:23)
[2019-07-26] MEDS ORDERED: VANCOMYCIN 500 MG in DEXTROSE 5%-WATER - 100 ML IVPB ONE ×2 (16:29→19:00)
--- NOTE | 2019-07-26 16:45 | CON.CARD ---
Consult Consult Specialty:: Cardiogy Reason for Consultation:: Tachycardia - History of Present Illness Chief Complaint: Sepsis History of Present Illness: This is a 59 year old male, decreased mental status, PMH of ESRD (, , ), HTN, HLD, CHF, COPD, gout, Bipolar Disorder, and schizophrenia presents from [place] during dialysis session BIBEMS due to tachycardia and hypotension. The HR was in the 140'sand the BP was 90/60 mmHg. He has a permacath and a G tube. Temp 101.4. EKG SVR at 144 BPM - Past Medical History Cardio/Vascular: Yes: CHF, HTN, Hyperlipdemia Pulmonary: Yes: COPD Renal/: Yes: Renal Failure, Renal Inusuff, Hemodialysis Psych: Yes: Bipolar, Schizophrenia Musculoskeletal: Yes: Other (Slight edema of the skin in left buttock , no pain , not tender, there is superficial breakdown of the skin of left buttock.) Rheumatology: Yes: Gout Dermatology: Yes: Other ( BL lateral maleoli pressure ulcers, sacral decub ulcer stage 3) Additional Medical History: obesity, non compliance - Past Surgical History Past Surgical History: Yes: None - Alcohol/Substance Use Hx Alcohol Use: No History of Substance Use: reports: None - Smoking History Smoking history: Never smoked Have you smoked in the past 12 months: No Aproximately how many cigarettes per day: 0 - Social History Usual Living Arrangement: Skilled Nursing ADL: Support Services Occupation: disability History of Recent Travel: No Home Medications - Allergies Allergies/Adverse Reactions: Allergies Allergy/AdvReac Type Severity Reaction Status Date / Time No Known Allergies Allergy Verified 07/01/19 12:38 - Home Medications Home Medications: Ambulatory Orders Acetaminophen [Tylenol] 650 mg PO ASDIR 03/08/19 Allopurinol [Zyloprim -] 100 mg PO DAILY 03/08/19 Atorvastatin Ca [Lipitor] 40 mg PO HS 03/08/19 Zinc Sulfate 220 mg PO DAILY 03/08/19 Collagenase Clostridium Hist. [Santyl -] 1 applic TP BID 07/01/19 Folic Acid 1 mg PO DAILY 07/01/19 Folic Acid/Vit B Complex and C [Dialyvite Tablet] 1 each PO DAILY 07/01/19 Aspirin [ASA -] 81 mg GT DAILY #30 tab.chew 07/13/19 Collagenase Clostridium Hist. [Santyl -] 1 applic TP DAILY #1 tube 07/13/19 Metoprolol Tartrate [Lopressor -] 25 mg GT BID #60 tablet 07/13/19 Albuterol 0.083% Nebulizer Jaclyn [Ventolin 0.083%] 1 neb NEB Q4H PRN 07/26/19 Vital Signs: Vital Signs Temperature 100.2 F H 07/26/19 13:50 Pulse Rate 125 H 07/26/19 15:20 Respiratory Rate 18 07/26/19 15:20 Blood Pressure 103/44 L 07/26/19 15:20 O2 Sat by Pulse Oximetry (%) 98 07/26/19 09:00 Constitutional: Yes: No Distress HENT: Yes: Nasal Congestion Respiratory: Yes: CTA Bilaterally Gastrointestinal: Yes: Soft Cardiovascular: Yes: Regular Rate and Rhythm (S1S2 No MRHG) Edema: No Neurological: Yes: Other (A+O X1) - Other Data Labs, Other Data: CBC, BMP 07/26/19 06:20 07/26/19 06:20 INR, PTT INR Cancelled 07/25/19 17:46 Troponin, BNP 07/25/19 07/25/19 17:46 17:46 Troponin I < 0.02 < 0.02 Troponin, BNP 07/25/19 07/25/19 17:46 17:46 Troponin I < 0.02 < 0.02 Assessment/Plan 59 year old male, decreased mental status, PMH of ESRD (, , ), HTN, HLD, CHF, COPD, gout, Bipolar Disorder, and schizophrenia presents from [place] during dialysis session BIBEMS due to tachycardia and hypotension. The HR was in the 140'sand the BP was 90/60 mmHg. He has a permacath and a G tube. Temp 101.4. Tachycardia Secondary to sepsis Would treat the sepsis and would not give a beta lorin or Ca++ channel lorin at this time Last echocardiogram 07/03/19 EF was 55-60%, no need to repeat an echo at this time.
[2019-07-26] MEDS ORDERED: CEFEPIME HCL 1 GM VIAL (RESTRICTED TO ID) ONE (17:29)
--- NOTE | 2019-07-26 17:30 | CON.ID ---
Consult Reason for Consultation:: sepsis - History of Present Illness Chief Complaint: hypotension and tachycardia History of Present Illness: Mr. Pena is a 59y/[place] [facility] previously admitted on 07/01/19 for septic bacteremia (staph hominis) treated with Zosyn, sacral ulcer, bilateral lateral malleoli pressure ulcers, ESRD on HD T,Th,Sa, COPD, and CHF who presents from dialysis center prior to HD with hypotension and tachycardia. Pt is a poor communicator (able to answer "yes" or "no") and has history of bipolar disorder and schizophrenia of note. In ED, he was hypotensive, SVT to 140s, and febrile with WBC 19.3. He was given Vancomycin and Zosyn in ED, and dialyzed without ultrafiltration today. He currently denies fever, chills, shortness of breath, abdominal pain, headache, and leg pain. He has right side perma-cath and PEG tube in place. - History Source History Provided By: Medical Record Limitations to Obtaining History: Other (limited communication) - Past Medical History Cardio/Vascular: Yes: CHF, HTN, Hyperlipdemia Pulmonary: Yes: COPD Renal/: Yes: Renal Failure, Renal Inusuff, Hemodialysis Psych: Yes: Bipolar, Schizophrenia Musculoskeletal: Yes: Other (Slight edema of the skin in left buttock , no pain , not tender, there is superficial breakdown of the skin of left buttock.) Rheumatology: Yes: Gout Dermatology: Yes: Other ( BL lateral maleoli pressure ulcers, sacral decub ulcer stage 3) Additional Medical History: obesity, non compliance - Past Surgical History Past Surgical History: Yes: None - Alcohol/Substance Use Hx Alcohol Use: No History of Substance Use: reports: None - Smoking History Smoking history: Never smoked Have you smoked in the past 12 months: No Aproximately how many cigarettes per day: 0 - Social History Usual Living Arrangement: Group Home ADL: Support Services Occupation: disability History of Recent Travel: No Home Medications - Allergies Allergies/Adverse Reactions: Allergies Allergy/AdvReac Type Severity Reaction Status Date / Time No Known Allergies Allergy Verified 07/01/19 12:38 - Home Medications Home Medications: Ambulatory Orders Acetaminophen [Tylenol] 650 mg PO ASDIR 03/08/19 Allopurinol [Zyloprim -] 100 mg PO DAILY 03/08/19 Atorvastatin Ca [Lipitor] 40 mg PO HS 03/08/19 Zinc Sulfate 220 mg PO DAILY 03/08/19 Collagenase Clostridium Hist. [Santyl -] 1 applic TP BID 07/01/19 Folic Acid 1 mg PO DAILY 07/01/19 Folic Acid/Vit B Complex and C [Dialyvite Tablet] 1 each PO DAILY 07/01/19 Aspirin [ASA -] 81 mg GT DAILY #30 tab.chew 07/13/19 Collagenase Clostridium Hist. [Santyl -] 1 applic TP DAILY #1 tube 07/13/19 Metoprolol Tartrate [Lopressor -] 25 mg GT BID #60 tablet 07/13/19 Albuterol 0.083% Nebulizer Jaclyn [Ventolin 0.083%] 1 neb NEB Q4H PRN 07/26/19 Family Medical History Family History: Unable to Obtain Review of Systems - Review of Systems Constitutional: denies: Chills, Fever Cardiovascular: denies: Shortness of Breath Respiratory: denies: Cough, SOB Gastrointestinal: denies: Abdominal Pain Physical Exam Vital Signs: Vital Signs Temperature 100.2 F H 07/26/19 13:50 Pulse Rate 125 H 07/26/19 15:20 Respiratory Rate 18 07/26/19 15:20 Blood Pressure 103/44 L 07/26/19 15:20 O2 Sat by Pulse Oximetry (%) 98 07/26/19 09:00 Constitutional: Yes: No Distress, Obese Eyes: Yes: Conjunctiva Clear, EOM Intact HENT: Yes: Atraumatic, Normocephalic Neck: Yes: Supple Cardiovascular: Yes: Tachycardia Respiratory: Yes: CTA Bilaterally Gastrointestinal: Yes: Normal Bowel Sounds, Soft, Abdomen, Obese, Other (PEG tube in place with minimal purulent drainage). No: Tenderness Edema: LLE: 1+, RLE: 1+ Integumentary: Yes: Pressure Ulcer (bilateral lateral malleoli with mild purulent drainage on left, sacral ulcer with no drainage), Other (Right perma- cath with no erythema or induration, variable tenderness on palpation) Neurological: Yes: Alert Labs: CBC, BMP 07/26/19 06:20 07/26/19 06:20 Imaging - Results Chest X-ray: Report Reviewed (congestion present with infiltrate and atelectasis at bases, little change from 07/03/19), Image Reviewed Ultrasound: Pending EKG: Pending (SVT with occasional PVC QTc 545 HR 144) Assessment/Plan Mr. Pena is a 59y/o [place] previously admitted on 07/01/19 for septic bacteremia (staph hominis) treated with Zosyn, sacral ulcer, bilateral lateral malleoli pressure ulcers, ESRD on HD T,,Sa, COPD, and CHF who presents from dialysis center prior to HD with hypotension and tachycardia. Pt was admitted for sepsis. #sepsis, unknown source Leukocytosis 19.7, prelim sputum cx many PMN, Gram pos bacilli and cocci, Gram negative bacilli. CT last admission did not show definite infection around PEG site but source could possibly be PEG site given purulent drainage. Pt reported tenderness on palpation at last exam but no erythema noted at perma-cath site. Less likely urine with trace leuk esterase, 13 WBC. Less likely source of ulcers given no significant erythema or drainage. CXR relatively unchanged from last month but could be PNA, but less likely. -wound cx of PEG site -blood and urine cx pending -abd U/S pending- if negative, recommend CT in the morning to assess PEG site -CBC -Cefepime 1g daily -Vancomycin 500mg to finish loading dose given weight -Vanc level in the morning #transaminitis Increased since admission. Elevated during last admission but not as much. -abd U/S -CMP #ESRD on HD
[2019-07-26] MEDS: CEFEPIME 1 GM in DEXTROSE 5%-WATER - 50 ML IVPB SCH (17:39)
[2019-07-26] MEDS: AMINO ACIDS/PROTEIN HYDROLYS 30 ML LIQUID.PKT PO SCH (17:40)
--- NOTE | 2019-07-26 18:03 | PN ---
Teaching Attending Note Name of Resident: Lakshmi Munguia ATTENDING PHYSICIAN STATEMENT I saw and evaluated the patient. I reviewed the resident's note and discussed the case with the resident. I agree with the resident's findings and plan as documented. SUBJECTIVE: 59 yo man with esrd on hd via PC, [facility] with bipolar/schizophrenia- recently admitted in June for sepsis with GT infection- treated with zosyn now admitted from HD with hypotension and fevers started on vanco/zosyn he has just completed hd and is alert denies abdominal pain OBJECTIVE: Vital Signs Period Temp Pulse Resp BP Sys/Castillo Pulse Ox Last 24 Hr 98.1 F-102.5 F 107-146 17-36 93-117/40-86 97-98 cor-rrr llungs clear +discomfort at pc site abd soft,nt GT site with purulence ext bilateral malleolar ulcers left ulcer with purulent base stage 3 sacral ulcer- no purulence CBC, BMP 07/26/19 06:20 07/26/19 06:20 Laboratory Tests 07/26/19 06:20 AST 238 H ALT 213 H Alkaline Phosphatase 191 H Microbiology 07/26/19 05:30 Sputum - Expectorated Gram Stain - Final cultures pending cxray- cannot r/o bibasilar infiltrates/atelectasis ASSESSMENT AND PLAN: fevers- ?gt tube infection, ?pneumonia abnl LFTs esrd/hd redose vancomycin 500 mg and check level in am switch to cefepime f/u cultures consider ct scan abd/pelvis if fevers persist culture gt drainage
[2019-07-27 07:09] LABS: BASO % 0.7 % (0-2.0); EOS % 1.7 % (0-4.5); HEMATOCRIT 23.4 % (35.4-49); HEMOGLOBIN 7.6 GM/dL (11.7-16.9); LYMPH % 3.1 % (8-40); MCH 25.9 pg (25.7-33.7); MCHC 32.6 g/dl (32.0-35.9); MEAN CELL VOLUME 79.4 fl (80-96); MEAN PLT VOLUME 8.2 fl (7.5-11.1); MONO % 8.4 % (3.8-10.2); NEUT % 86.1 % (42.8-82.8); PLATELET COUNT 388 K/MM3 (134-434); RBC 2.94 M/mm3 (4.00-5.60); RDW 18.5 % (11.9-15.9)
[2019-07-27 07:46] LABS: ALBUMIN 1.5 g/dl (3.4-5.0); BILIRUBIN,TOTAL 0.4 mg/dL (0.2-1); BLOOD UREA NITROGEN 50.3 mg/dL (7-18); CALCIUM 9.2 mg/dL (8.5-10.1); CREATININE 4.1 mg/dL (0.55-1.3); POTASSIUM 3.2 mmol/L (3.5-5.1); TOT PROT 6.9 g/dl (6.4-8.2)
[2019-07-27] MEDS: AMINO ACIDS/PROTEIN HYDROLYS 30 ML LIQUID.PKT PO SCH ×2 (08:30→17:23)
[2019-07-27] MEDS ORDERED: FLU VACCINE QUAD 60 MCG/0.5 ML (MDV 19-20) IM ONE (10:00)
[2019-07-27] MEDS: HEPARIN NA (PORCINE) 5,000 UNITS/ML 1ML VIAL SQ SCH ×2 (10:35→22:46)
[2019-07-27] MEDS: COLLAGENASE CLOSTRIDIUM HIST. 30 GRAMS TUBE TP SCH (10:36)
--- NOTE | 2019-07-27 10:57 | PN ---
Progress Note (short form) - Note Progress Note: Pt is more awake had HD yesterday Vital Signs - 24 hr 07/26/19 07/26/19 07/26/19 12:10 12:15 12:45 Temperature Pulse Rate 120 H 120 H 120 H Respiratory 18 18 18 Rate Blood Pressure 93/56 L 94/57 L 99/65 O2 Sat by Pulse Oximetry (%) 07/26/19 07/26/19 07/26/19 13:15 13:45 13:50 Temperature 100.2 F H Pulse Rate 120 H 118 H 120 H Respiratory 18 18 17 Rate Blood Pressure 99/66 109/68 99/65 O2 Sat by Pulse Oximetry (%) 07/26/19 07/26/19 07/26/19 14:15 14:45 15:15 Temperature Pulse Rate 116 H 119 H 121 H Respiratory 18 18 18 Rate Blood Pressure 93/41 L 107/68 100/51 L O2 Sat by Pulse Oximetry (%) 07/26/19 07/26/19 07/26/19 15:20 18:09 21:00 Temperature 98.8 F Pulse Rate 125 H 140 H Respiratory 18 19 19 Rate Blood Pressure 103/44 L 120/86 O2 Sat by Pulse 98 Oximetry (%) 07/26/19 07/26/19 07/27/19 22:00 22:40 02:38 Temperature 99.1 F 99.1 F 97.3 F L Pulse Rate 127 H 112 H Respiratory 26 H 18 Rate Blood Pressure 105/69 96/66 O2 Sat by Pulse Oximetry (%) 07/27/19 07/27/19 06:00 10:14 Temperature 97.8 F Pulse Rate 116 H 119 H Respiratory 20 20 Rate Blood Pressure 112/63 117/67 O2 Sat by Pulse Oximetry (%) Current Medications Generic Name Dose Route Start Last Admin Trade Name Freq PRN Reason Stop Dose Admin Acetaminophen 650 mg 07/26/19 00:41 Tylenol Suppository - [place] Q6H PRN FEVER Allopurinol 100 mg 07/26/19 10:00 07/26/19 11:32 Zyloprim - PEG 100 mg DAILY [facility] Administration Amino Acids 30 ml 07/26/19 17:30 07/27/19 08:30 Prosource No Carb Liquid Pkt PO Not Given BID@0800,1730 [facility] Collagenase 1 applic 07/26/19 10:00 07/27/19 10:36 Santyl - TP 1 applic DAILY [facility] Administration Protocol Heparin Sodium (Porcine) 5,000 unit 07/26/19 10:00 07/27/19 10:35 Heparin - SQ 5,000 unit BID [facility] Administration Sodium Chloride 250 mls @ 3,000 mls/hr 07/26/19 11:56 Normal Saline - IV 07/27/19 11:56 PRN PRN Hypotension during Dialysis Cefepime HCl 1 gm/ Dextrose 50 mls @ 100 mls/hr 07/26/19 16:30 07/26/19 17:39 IVPB 100 mls/hr Q24H [facility] Administration Protocol Ipratropium [place] 1 amp 07/26/19 05:33 07/26/19 06:28 Atrovent 0.02% Nebulizer - NEB 1 amp RQID PRN Administration WHEEZING Laboratory Results - last 24 hr 07/27/19 07/27/19 07/27/19 06:40 06:40 06:40 WBC 14.0 H RBC 2.94 L Hgb 7.6 L Hct 23.4 L MCV 79.4 L MCH 25.9 MCHC 32.6 RDW 18.5 H Plt Count 388 MPV 8.2 Absolute Neuts (auto) 12.0 H Neutrophils % 86.1 H Lymphocytes % 3.1 L Monocytes % 8.4 Eosinophils % 1.7 D Basophils % 0.7 Nucleated RBC % 0 Sodium 137 Potassium 3.2 L Chloride 98 Carbon Dioxide 30 Anion Gap 9 BUN 50.3 H Creatinine 4.1 H Est GFR (CKD-EPI)AfAm 17.51 Est GFR (CKD-EPI)NonAf 15.11 Random Glucose 75 Calcium 9.2 Total Bilirubin 0.4 AST 105 H ALT 144 H Alkaline Phosphatase 170 H Total Protein 6.9 Albumin 1.5 L Random Vancomycin 11.1 L S1 S2 RRR Lungs decreased Abd- soft, NT, Peg+ No edema PLAN restraints-- mittens to prevent him from pulling out iv line , O2 NC iv antibiotics LFT trending down check sono abd-- pending may need PRBC-- consent signed-- 2 PC continue with meds cultures pending ID eval appreciated HR-->restart Metoprolol Problem List - Problems (1) CHF (congestive heart failure) Code(s): I50.9 - HEART FAILURE, UNSPECIFIED (2) COPD (chronic obstructive pulmonary disease) Code(s): J44.9 - CHRONIC OBSTRUCTIVE PULMONARY DISEASE, UNSPECIFIED (3) Elevated liver enzymes Code(s): R74.8 - ABNORMAL LEVELS OF OTHER SERUM ENZYMES (4) Sepsis Code(s): A41.9 - SEPSIS, UNSPECIFIED ORGANISM Qualifiers: Sepsis type: sepsis due to unspecified organism Sepsis acute organ dysfunction status: unspecified Qualified Code(s): A41.9 - Sepsis, unspecified organism (5) Acute metabolic encephalopathy Code(s): G93.41 - METABOLIC ENCEPHALOPATHY (6) ESRD (end stage renal disease) on dialysis Code(s): N18.6 - END STAGE RENAL DISEASE; Z99.2 - DEPENDENCE ON RENAL DIALYSIS (7) Elevated LFTs Code(s): R94.5 - ABNORMAL RESULTS OF LIVER FUNCTION STUDIES
[2019-07-27] MEDS: ALLOPURINOL 100 MG TABLET (FP) PEG SCH (11:00)
[2019-07-27] MEDS ORDERED: CEFEPIME HCL 1 GM VIAL (RESTRICTED TO ID) ONE (16:54)
[2019-07-27] MEDS ORDERED: DEXTROSE 5%-WATER - 50 ML IVPB ONE (16:55)
[2019-07-27] MEDS: CEFEPIME 1 GM in DEXTROSE 5%-WATER - 50 ML IVPB SCH (17:16)
--- NOTE | 2019-07-27 17:54 | PN ---
Progress Note, Physician History of Present Illness: Pt seen and examined at bedside. He is more awake and interactive today. - Current Medication List Current Medications: Active Medications Acetaminophen (Tylenol Suppository -) 650 mg [place] Q6H PRN PRN Reason: FEVER Allopurinol (Zyloprim -) 100 mg PEG DAILY [facility] Last Admin: 07/27/19 11:00 Dose: Not Given Amino Acids (Prosource No Carb Liquid Pkt) 30 ml PO BID@0800,1730 [facility] Last Admin: 07/27/19 17:23 Dose: 30 ml Collagenase (Santyl -) 1 applic TP DAILY [facility]; Protocol Last Admin: 07/27/19 10:36 Dose: 1 applic Heparin Sodium (Porcine) (Heparin -) 5,000 unit SQ BID [facility] Last Admin: 07/27/19 10:35 Dose: 5,000 unit Cefepime HCl 1 gm/ Dextrose 50 mls @ 100 mls/hr IVPB Q24H [facility]; Protocol Last Admin: 07/27/19 17:16 Dose: 100 mls/hr Ipratropium [place] (Atrovent 0.02% Nebulizer -) 1 amp NEB RQID PRN PRN Reason: WHEEZING Last Admin: 07/26/19 06:28 Dose: 1 amp - Objective Vital Signs: Vital Signs Temperature 98.5 F 07/27/19 13:15 Pulse Rate 122 H 07/27/19 13:15 Respiratory Rate 16 07/27/19 13:15 Blood Pressure 118/72 07/27/19 13:15 O2 Sat by Pulse Oximetry (%) 98 07/27/19 09:00 Constitutional: Yes: Calm Eyes: Yes: Conjunctiva Clear HENT: Yes: Atraumatic Neck: Yes: Supple Cardiovascular: Yes: S1, S2 Respiratory: Yes: CTA Bilaterally Gastrointestinal: Yes: Soft Genitourinary: Yes: WNL Musculoskeletal: Yes: Muscle Weakness Edema: No Neurological: Yes: Confusion Labs: CBC, BMP 07/27/19 06:40 07/27/19 06:40 INR, PTT INR Cancelled 07/25/19 17:46 Assessment/Plan Current Medications Generic Name Dose Route Start Last Admin Trade Name Freq PRN Reason Stop Dose Admin Acetaminophen 650 mg 07/26/19 00:41 Tylenol Suppository - [place] Q6H PRN FEVER Allopurinol 100 mg 07/26/19 10:00 07/27/19 11:00 Zyloprim - PEG Not Given DAILY [facility] Amino Acids 30 ml 07/26/19 17:30 07/27/19 17:23 Prosource No Carb Liquid Pkt PO 30 ml BID@0800,1730 [facility] Administration Collagenase 1 applic 07/26/19 10:00 07/27/19 10:36 Santyl - TP 1 applic DAILY [facility] Administration Protocol Heparin Sodium (Porcine) 5,000 unit 07/26/19 10:00 07/27/19 10:35 Heparin - SQ 5,000 unit BID [facility] Administration Cefepime HCl 1 gm/ Dextrose 50 mls @ 100 mls/hr 07/26/19 16:30 07/27/19 17:16 IVPB 100 mls/hr Q24H [facility] Administration Protocol Ipratropium [place] 1 amp 07/26/19 05:33 07/26/19 06:28 Atrovent 0.02% Nebulizer - NEB 1 amp RQID PRN Administration WHEEZING Impression 1. ESRD 2. sepsis 3. gout 4. HTN 5. CHF 6. DM 7. hx bipolar 8. MOLLY 9. non compliance 10. bacteremia 11. lactic acidosis 12. new onset a-fib Plan - HD in am - he is more awake - monitor bp - abx per primary team - cont supplements
[2019-07-28 06:57] LABS: HEMATOCRIT 24.1 % (35.4-49); HEMOGLOBIN 7.6 GM/dL (11.7-16.9); MCH 25.4 pg (25.7-33.7); MCHC 31.6 g/dl (32.0-35.9); MEAN CELL VOLUME 80.4 fl (80-96); MEAN PLT VOLUME 8.1 fl (7.5-11.1); PLATELET COUNT 389 K/MM3 (134-434); RDW 18.6 % (11.9-15.9); WHITE BLOOD COUNT 13.4 K/mm3 (4.0-10.0)
[2019-07-28 07:41] LABS: ALBUMIN 1.5 g/dl (3.4-5.0); BILIRUBIN,TOTAL 0.5 mg/dL (0.2-1); CALCIUM 9.4 mg/dL (8.5-10.1); POTASSIUM 3.2 mmol/L (3.5-5.1); TOT PROT 6.7 g/dl (6.4-8.2)
[2019-07-28] MEDS: AMINO ACIDS/PROTEIN HYDROLYS 30 ML LIQUID.PKT PO SCH ×2 (08:45→17:17)
[2019-07-28] MEDS ORDERED: SODIUM CHLORIDE 250 ML IV PRN (08:55)
[2019-07-28] MEDS: ALLOPURINOL 100 MG TABLET (FP) PEG SCH (09:12)
[2019-07-28] MEDS: HEPARIN NA (PORCINE) 5,000 UNITS/ML 1ML VIAL SQ SCH ×2 (09:12→21:05)
[2019-07-28] MEDS: COLLAGENASE CLOSTRIDIUM HIST. 30 GRAMS TUBE TP SCH (09:13)
[2019-07-28] MEDS ORDERED: POTASSIUM CHLORIDE ORAL LIQUID 20 MEQ/15 ML PO ONE (09:26)
--- NOTE | 2019-07-28 09:56 | PN ---
Progress Note (short form) - Note Progress Note: pt seen / examined in tele chart reviewed awake/ comfortable Vital Signs Temp 98.4 F 07/28/19 06:00 Pulse 125 H 07/28/19 06:00 Resp 18 07/28/19 06:00 BP 119/70 07/28/19 06:00 Pulse Ox 100 07/27/19 21:00 Intake & Output 07/27/19 07/27/19 07/28/19 11:59 23:59 11:59 Intake Total 50 Balance 50 Weight 224 lb 12.8 oz 221 lb 12.8 oz Intake: IVPB 50 Other: Voiding Method Incontinent Incontinent # Unmeasured Voids Void 1 2 3 Bowel Movement Yes Yes Yes # Bowel Movements 1 1 Weight Measurement Method Patient Lift Scale Patient Lift Scale Active Medications Acetaminophen (Tylenol Suppository -) 650 mg [place] Q6H PRN PRN Reason: FEVER Albumin Human (Albumin Human 25%) 12.5 gm IVPB Q30M [facility] Stop: 07/28/19 11:31 Allopurinol (Zyloprim -) 100 mg PEG DAILY [facility] Last Admin: 07/28/19 09:12 Dose: 100 mg Amino Acids (Prosource No Carb Liquid Pkt) 30 ml PO BID@0800,1730 [facility] Last Admin: 07/28/19 08:45 Dose: 30 ml Collagenase (Santyl -) 1 applic TP DAILY [facility]; Protocol Last Admin: 07/28/19 09:13 Dose: 1 applic Epoetin [place] (Procrit -) 10,000 unit IVPUSH ONCE ONE Stop: 07/28/19 10:01 Heparin Sodium (Porcine) (Heparin -) 5,000 unit SQ BID [facility] Last Admin: 07/28/19 09:12 Dose: 5,000 unit Cefepime HCl 1 gm/ Dextrose 50 mls @ 100 mls/hr IVPB Q24H [facility]; Protocol Last Admin: 07/27/19 17:16 Dose: 100 mls/hr Sodium Chloride (Normal Saline -) 250 mls @ 3,000 mls/hr IV PRN PRN PRN Reason: Hypotension during Dialysis Stop: 07/29/19 08:54 Ipratropium [place] (Atrovent 0.02% Nebulizer -) 1 amp NEB RQID PRN PRN Reason: WHEEZING Last Admin: 07/26/19 06:28 Dose: 1 amp CBC, BMP 07/28/19 05:45 07/28/19 05:45 Microbiology 07/25/19 17:46 Blood Culture - Preliminary Blood - Peripheral Venous NO GROWTH OBTAINED AFTER 48 HOURS, INCUBATION TO CONTINUE FOR 3 DAYS. 07/25/19 17:46 Blood Culture - Preliminary Blood - Peripheral Venous NO GROWTH OBTAINED AFTER 48 HOURS, INCUBATION TO CONTINUE FOR 3 DAYS. 07/26/19 15:00 Gram Stain - Final Peg Site 07/26/19 05:30 Gram Stain - Final Sputum - Expectorated Sputum Culture - Preliminary Pseudomonas Species 07/25/19 20:26 Urine Culture - Final Urine - Urine Clean Catch NO GROWTH OBTAINED Physical Exam awake S1 S2 RRR Lungs decreased Abd- soft, NT, Peg+ No edema PLAN restraints-- mittens to prevent him from pulling out iv line , O2 NC iv antibiotics LFT trending down check sono abd--ok ct scan - to assess g tube and of ok - start on feeding transfuse PRBC--with dialysis -- continue with meds cultures pending ID eval appreciated hold b blockers for now will follow d/w rn also overall condition gaurded Problem List - Problems (1) CHF (congestive heart failure) Code(s): I50.9 - HEART FAILURE, UNSPECIFIED (2) COPD (chronic obstructive pulmonary disease) Code(s): J44.9 - CHRONIC OBSTRUCTIVE PULMONARY DISEASE, UNSPECIFIED (3) Elevated liver enzymes Code(s): R74.8 - ABNORMAL LEVELS OF OTHER SERUM ENZYMES (4) Sepsis Code(s): A41.9 - SEPSIS, UNSPECIFIED ORGANISM Qualifiers: Sepsis type: sepsis due to unspecified organism Sepsis acute organ dysfunction status: unspecified Qualified Code(s): A41.9 - Sepsis, unspecified organism (5) Acute metabolic encephalopathy Code(s): G93.41 - METABOLIC ENCEPHALOPATHY (6) ESRD (end stage renal disease) on dialysis Code(s): N18.6 - END STAGE RENAL DISEASE; Z99.2 - DEPENDENCE ON RENAL DIALYSIS (7) Elevated LFTs Code(s): R94.5 - ABNORMAL RESULTS OF LIVER FUNCTION STUDIES
[2019-07-28] MEDS ORDERED: EPOETIN ALFA 10,000 UNIT/1 ML VIAL IVPUSH ONE (10:00)
[2019-07-28] MEDS: ALBUMIN HUMAN 25% 12.5 GM/50 ML VIAL IVPB SCH ×3 (11:13→12:27)
--- NOTE | 2019-07-28 12:38 | PN ---
Progress Note, Physician History of Present Illness: Pt seen and examined at bedside. He is awake but confused. He is tolerating HD. - Current Medication List Current Medications: Active Medications Acetaminophen (Tylenol Suppository -) 650 mg [place] Q6H PRN PRN Reason: FEVER Allopurinol (Zyloprim -) 100 mg PEG DAILY [facility] Last Admin: 07/28/19 09:12 Dose: 100 mg Amino Acids (Prosource No Carb Liquid Pkt) 30 ml PO BID@0800,1730 [facility] Last Admin: 07/28/19 08:45 Dose: 30 ml Collagenase (Santyl -) 1 applic TP DAILY [facility]; Protocol Last Admin: 07/28/19 09:13 Dose: 1 applic Heparin Sodium (Porcine) (Heparin -) 5,000 unit SQ BID [facility] Last Admin: 07/28/19 09:12 Dose: 5,000 unit Cefepime HCl 1 gm/ Dextrose 50 mls @ 100 mls/hr IVPB Q24H [facility]; Protocol Last Admin: 07/27/19 17:16 Dose: 100 mls/hr Sodium Chloride (Normal Saline -) 250 mls @ 3,000 mls/hr IV PRN PRN PRN Reason: Hypotension during Dialysis Stop: 07/29/19 08:54 Ipratropium [place] (Atrovent 0.02% Nebulizer -) 1 amp NEB RQID PRN PRN Reason: WHEEZING Last Admin: 07/26/19 06:28 Dose: 1 amp - Objective Vital Signs: Vital Signs Temperature 98.1 F 07/28/19 10:00 Pulse Rate 124 H 07/28/19 12:00 Respiratory Rate 18 07/28/19 12:00 Blood Pressure 100/65 07/28/19 12:00 O2 Sat by Pulse Oximetry (%) 100 07/27/19 21:00 Constitutional: Yes: Calm Eyes: Yes: Conjunctiva Clear Cardiovascular: Yes: S1, S2 Respiratory: Yes: CTA Bilaterally Gastrointestinal: Yes: Soft, Abdomen, Obese Genitourinary: Yes: Incontinence Musculoskeletal: Yes: Muscle Weakness Edema: LLE: Trace, RLE: Trace Neurological: Yes: Confusion Labs: CBC, BMP 07/28/19 05:45 07/28/19 05:45 INR, PTT INR Cancelled 07/25/19 17:46 Assessment/Plan Current Medications Generic Name Dose Route Start Last Admin Trade Name Freq PRN Reason Stop Dose Admin Acetaminophen 650 mg 07/26/19 00:41 Tylenol Suppository - [place] Q6H PRN FEVER Allopurinol 100 mg 07/26/19 10:00 07/28/19 09:12 Zyloprim - PEG 100 mg DAILY [facility] Administration Amino Acids 30 ml 07/26/19 17:30 07/28/19 08:45 Prosource No Carb Liquid Pkt PO 30 ml BID@0800,1730 [facility] Administration Collagenase 1 applic 07/26/19 10:00 07/28/19 09:13 Santyl - TP 1 applic DAILY [facility] Administration Protocol Heparin Sodium (Porcine) 5,000 unit 07/26/19 10:00 07/28/19 09:12 Heparin - SQ 5,000 unit BID [facility] Administration Cefepime HCl 1 gm/ Dextrose 50 mls @ 100 mls/hr 07/26/19 16:30 07/27/19 17:16 IVPB 100 mls/hr Q24H [facility] Administration Protocol Sodium Chloride 250 mls @ 3,000 mls/hr 07/28/19 08:55 Normal Saline - IV 07/29/19 08:54 PRN PRN Hypotension during Dialysis Ipratropium [place] 1 amp 07/26/19 05:33 07/26/19 06:28 Atrovent 0.02% Nebulizer - NEB 1 amp RQID PRN Administration WHEEZING Impression 1. ESRD 2. sepsis 3. gout 4. HTN 5. CHF 6. DM 7. hx bipolar 8. MOLLY 9. non compliance 10. bacteremia 11. lactic acidosis 12. new onset a-fib 13. hypokalemia Plan - HD today - prbc transfusion - epoogen for anemia - he is more awake - monitor bp - abx per primary team
[2019-07-28] MEDS ORDERED: DEXTROSE 5%-WATER - 50 ML IVPB ONE (17:03)
[2019-07-28] MEDS ORDERED: CEFEPIME HCL 1 GM VIAL (RESTRICTED TO ID) ONE (17:03)
[2019-07-28] MEDS: CEFEPIME 1 GM in DEXTROSE 5%-WATER - 50 ML IVPB SCH (17:17)
--- NOTE | 2019-07-28 21:47 | PN ---
Progress Note, Physician Chief Complaint: SEEN ON DIALYSIS OFFERS NO COMPLAINTS AFEBRILE - Current Medication List Current Medications: Active Medications Acetaminophen (Tylenol Suppository -) 650 mg [place] Q6H PRN PRN Reason: FEVER Allopurinol (Zyloprim -) 100 mg PEG DAILY [facility] Last Admin: 07/28/19 09:12 Dose: 100 mg Amino Acids (Prosource No Carb Liquid Pkt) 30 ml PO BID@0800,1730 [facility] Last Admin: 07/28/19 17:17 Dose: 30 ml Collagenase (Santyl -) 1 applic TP DAILY [facility]; Protocol Last Admin: 07/28/19 09:13 Dose: 1 applic Heparin Sodium (Porcine) (Heparin -) 5,000 unit SQ BID [facility] Last Admin: 07/28/19 21:05 Dose: 5,000 unit Cefepime HCl 1 gm/ Dextrose 50 mls @ 100 mls/hr IVPB Q24H [facility]; Protocol Last Admin: 07/28/19 17:17 Dose: 100 mls/hr Sodium Chloride (Normal Saline -) 250 mls @ 3,000 mls/hr IV PRN PRN PRN Reason: Hypotension during Dialysis Stop: 07/29/19 08:54 Ipratropium [place] (Atrovent 0.02% Nebulizer -) 1 amp NEB RQID PRN PRN Reason: WHEEZING Last Admin: 07/26/19 06:28 Dose: 1 amp - Objective Vital Signs: Vital Signs Temperature 98.0 F 07/28/19 18:00 Pulse Rate 131 H 07/28/19 18:00 Respiratory Rate 18 07/28/19 18:00 Blood Pressure 116/75 07/28/19 18:00 O2 Sat by Pulse Oximetry (%) 100 07/28/19 10:00 Constitutional: Yes: No Distress, Obese Eyes: Yes: Conjunctiva Clear Cardiovascular: Yes: Regular Rate and Rhythm, S1, S2 Respiratory: Yes: CTA Bilaterally Gastrointestinal: Yes: Normal Bowel Sounds, Soft Edema: Yes Labs: CBC, BMP 07/28/19 05:45 07/28/19 05:45 INR, PTT INR Cancelled 07/25/19 17:46 Assessment/Plan FEVER/HYPOTENSION R/O SEPSIS ? GI SOURCE ?PNEUMONIA COLITIS ON CT ESRD CONTINUE EMPIRIC CEFEPIME/VANCOMYCIN
[2019-07-29] MEDS: AMINO ACIDS/PROTEIN HYDROLYS 30 ML LIQUID.PKT PO SCH ×2 (08:50→16:39)
[2019-07-29] MEDS: COLLAGENASE CLOSTRIDIUM HIST. 30 GRAMS TUBE TP SCH (09:30)
[2019-07-29] MEDS: ALLOPURINOL 100 MG TABLET (FP) PEG SCH (09:30)
[2019-07-29] MEDS: HEPARIN NA (PORCINE) 5,000 UNITS/ML 1ML VIAL SQ SCH ×2 (09:30→21:14)
--- NOTE | 2019-07-29 11:27 | PN ---
Progress Note (short form) - Note Progress Note: Pt is more awake has pain on palpating abdomen Vital Signs - 24 hr 07/28/19 07/28/19 07/29/19 18:00 21:40 02:00 Temperature 98.0 F 98.2 F 99.4 F Pulse Rate 131 H 132 H 94 H Respiratory 18 18 18 Rate Blood Pressure 116/75 123/46 L 100/60 O2 Sat by Pulse Oximetry (%) 07/29/19 07/29/19 07/29/19 06:00 09:00 09:36 Temperature 98.3 F 98 F Pulse Rate 124 H 123 H Respiratory 18 18 Rate Blood Pressure 109/67 116/65 O2 Sat by Pulse 99 Oximetry (%) 07/29/19 14:35 Temperature 98.5 F Pulse Rate 127 H Respiratory 18 Rate Blood Pressure 124/68 O2 Sat by Pulse Oximetry (%) Current Medications Generic Name Dose Route Start Last Admin Trade Name Freq PRN Reason Stop Dose Admin Acetaminophen 650 mg 07/26/19 00:41 Tylenol Suppository - [place] Q6H PRN FEVER Allopurinol 100 mg 07/26/19 10:00 07/29/19 09:30 Zyloprim - PEG 100 mg DAILY [facility] Administration Amino Acids 30 ml 07/26/19 17:30 07/29/19 08:50 Prosource No Carb Liquid Pkt PO 30 ml BID@0800,1730 [facility] Administration Collagenase 1 applic 07/26/19 10:00 07/29/19 09:30 Santyl - TP 1 applic DAILY [facility] Administration Protocol Heparin Sodium (Porcine) 5,000 unit 07/26/19 10:00 07/29/19 09:30 Heparin - SQ 5,000 unit BID [facility] Administration Cefepime HCl 1 gm/ Dextrose 50 mls @ 100 mls/hr 07/26/19 16:30 07/28/19 17:17 IVPB 100 mls/hr Q24H [facility] Administration Protocol Ipratropium [place] 1 amp 07/26/19 05:33 07/26/19 06:28 Atrovent 0.02% Nebulizer - NEB 1 amp RQID PRN Administration WHEEZING Laboratory Results - last 24 hr 07/29/19 11:15 WBC 13.3 H RBC 3.40 L Hgb 8.9 L Hct 27.4 L MCV 80.7 MCH 26.1 MCHC 32.3 RDW 17.4 H Plt Count 368 MPV 7.5 Microbiology 07/26/19 15:00 Gram Stain - Final Peg Site Wound Culture - Preliminary Pseudomonas Aeruginosa Yeast Like Organism Group D Strep Or Entero Coccus 07/25/19 17:46 Blood Culture - Preliminary Blood - Peripheral Venous NO GROWTH OBTAINED AFTER 72 HOURS, INCUBATION TO CONTINUE FOR 2 DAYS. 07/25/19 17:46 Blood Culture - Preliminary Blood - Peripheral Venous NO GROWTH OBTAINED AFTER 72 HOURS, INCUBATION TO CONTINUE FOR 2 DAYS. 07/26/19 05:30 Gram Stain - Final Sputum - Expectorated Sputum Culture - Final Pseudomonas Aeruginosa S1 S2 RRR Lungs decreased Abd- soft, NT, Peg+ No edema PLAN restraints-- mittens to prevent him from pulling out iv line , O2 NC iv antibiotics LFT trending down s/p prbc ct abd noted-->colitis continue with meds cultures noted ID eval appreciated Problem List - Problems (1) CHF (congestive heart failure) Code(s): I50.9 - HEART FAILURE, UNSPECIFIED (2) COPD (chronic obstructive pulmonary disease) Code(s): J44.9 - CHRONIC OBSTRUCTIVE PULMONARY DISEASE, UNSPECIFIED (3) Elevated liver enzymes Code(s): R74.8 - ABNORMAL LEVELS OF OTHER SERUM ENZYMES (4) Sepsis Code(s): A41.9 - SEPSIS, UNSPECIFIED ORGANISM Qualifiers: Sepsis type: sepsis due to unspecified organism Sepsis acute organ dysfunction status: unspecified Qualified Code(s): A41.9 - Sepsis, unspecified organism (5) Acute metabolic encephalopathy Code(s): G93.41 - METABOLIC ENCEPHALOPATHY (6) ESRD (end stage renal disease) on dialysis Code(s): N18.6 - END STAGE RENAL DISEASE; Z99.2 - DEPENDENCE ON RENAL DIALYSIS (7) Elevated LFTs Code(s): R94.5 - ABNORMAL RESULTS OF LIVER FUNCTION STUDIES
[2019-07-29 11:47] LABS: HEMATOCRIT 27.4 % (35.4-49); HEMOGLOBIN 8.9 GM/dL (11.7-16.9); MCH 26.1 pg (25.7-33.7); MCHC 32.3 g/dl (32.0-35.9); MEAN CELL VOLUME 80.7 fl (80-96); MEAN PLT VOLUME 7.5 fl (7.5-11.1); PLATELET COUNT 368 K/MM3 (134-434); RDW 17.4 % (11.9-15.9); WHITE BLOOD COUNT 13.3 K/mm3 (4.0-10.0)
[2019-07-29] MEDS ORDERED: CEFEPIME HCL 1 GM VIAL (RESTRICTED TO ID) ONE (16:32)
[2019-07-29] MEDS ORDERED: DEXTROSE 5%-WATER - 50 ML IVPB ONE (16:32)
[2019-07-29] MEDS: CEFEPIME 1 GM in DEXTROSE 5%-WATER - 50 ML IVPB SCH (16:39)
[2019-07-29 18:28] LABS: MAGNESIUM 1.6 mg/dL (1.8-2.4)
[2019-07-29] MEDS ORDERED: MAGNESIUM SULF 50% (8.12 MEQ/2 ML-1 GM VIAL) IVPB ONE (19:29)
[2019-07-29] MEDS: POTASSIUM CHLORIDE ORAL LIQUID 20 MEQ/15 ML PO SCH (21:14)
[2019-07-29] MEDS ORDERED: POTASSIUM CHLORIDE TABS 20 MEQ TABLET.ER (FP) PO SCH (22:00)
[2019-07-29] MEDS: ACETAMINOPHEN 650 MG SUPP.RECT PR PRN (22:14)
--- NOTE | 2019-07-30 08:51 | PN ---
Progress Note (short form) - Note Progress Note: Pt is more awake has pain on palpating abdomen diarrhea per RN Selected Entries 07/30/19 07/30/19 06:00 14:20 Temperature 98.3 F 99.3 F Pulse Rate 114 H Respiratory 22 H Rate Blood Pressure 133/74 Weight 220 lb 3.2 oz Laboratory Tests 07/30/19 09:30 Sodium 145 Potassium 3.3 L Carbon Dioxide 28 Anion Gap 8 BUN 57.6 H Creatinine 4.8 H Est GFR (CKD-EPI)AfAm 14.47 Est GFR (CKD-EPI)NonAf 12.49 Random Glucose 86 Calcium 9.4 S1 S2 RRR Lungs decreased Abd- soft, NT, Peg+ No edema PLAN restraints-- mittens to prevent him from pulling out iv line , O2 NC iv antibiotics may need to start peg feeds-- dietary eval, GI eval LFT trending down s/p prbc ct abd noted-->colitis continue with meds cultures noted ID eval appreciated Problem List - Problems (1) CHF (congestive heart failure) Code(s): I50.9 - HEART FAILURE, UNSPECIFIED (2) COPD (chronic obstructive pulmonary disease) Code(s): J44.9 - CHRONIC OBSTRUCTIVE PULMONARY DISEASE, UNSPECIFIED (3) Elevated liver enzymes Code(s): R74.8 - ABNORMAL LEVELS OF OTHER SERUM ENZYMES (4) Sepsis Code(s): A41.9 - SEPSIS, UNSPECIFIED ORGANISM Qualifiers: Sepsis type: sepsis due to unspecified organism Sepsis acute organ dysfunction status: unspecified Qualified Code(s): A41.9 - Sepsis, unspecified organism (5) Acute metabolic encephalopathy Code(s): G93.41 - METABOLIC ENCEPHALOPATHY (6) ESRD (end stage renal disease) on dialysis Code(s): N18.6 - END STAGE RENAL DISEASE; Z99.2 - DEPENDENCE ON RENAL DIALYSIS (7) Elevated LFTs Code(s): R94.5 - ABNORMAL RESULTS OF LIVER FUNCTION STUDIES
[2019-07-30] MEDS: AMINO ACIDS/PROTEIN HYDROLYS 30 ML LIQUID.PKT PO SCH ×2 (09:29→17:25)
[2019-07-30] MEDS: HEPARIN NA (PORCINE) 5,000 UNITS/ML 1ML VIAL SQ SCH ×2 (09:29→21:08)
[2019-07-30] MEDS: POTASSIUM CHLORIDE ORAL LIQUID 20 MEQ/15 ML PO SCH (09:30)
[2019-07-30] MEDS: ALLOPURINOL 100 MG TABLET (FP) PEG SCH (09:30)
[2019-07-30] MEDS: COLLAGENASE CLOSTRIDIUM HIST. 30 GRAMS TUBE TP SCH (09:33)
[2019-07-30 10:07] LABS: BLOOD UREA NITROGEN 57.6 mg/dL (7-18); CALCIUM 9.4 mg/dL (8.5-10.1); CREATININE 4.8 mg/dL (0.55-1.3); POTASSIUM 3.3 mmol/L (3.5-5.1)
[2019-07-30] MEDS ORDERED: DEXTROSE 5%-WATER - 50 ML IVPB ONE (16:50)
[2019-07-30] MEDS ORDERED: CEFEPIME HCL 1 GM VIAL (RESTRICTED TO ID) ONE (16:50)
[2019-07-30] MEDS: CEFEPIME 1 GM in DEXTROSE 5%-WATER - 50 ML IVPB SCH (17:25)
--- NOTE | 2019-07-30 20:34 | PN ---
Progress Note, Physician Chief Complaint: AWAKE, ALERT IN BED OFFERS NO COMPLAINTS LOW GRADE TEMP MILD WBC ELEVATION - Current Medication List Current Medications: Active Medications Acetaminophen (Tylenol Suppository -) 650 mg [place] Q6H PRN PRN Reason: FEVER Last Admin: 07/29/19 22:14 Dose: 650 mg Allopurinol (Zyloprim -) 100 mg PEG DAILY [facility] Last Admin: 07/30/19 09:30 Dose: 100 mg Amino Acids (Prosource No Carb Liquid Pkt) 30 ml PO BID@0800,1730 [facility] Last Admin: 07/30/19 17:25 Dose: 30 ml Collagenase (Santyl -) 1 applic TP DAILY [facility]; Protocol Last Admin: 07/30/19 09:33 Dose: 1 applic Heparin Sodium (Porcine) (Heparin -) 5,000 unit SQ BID [facility] Last Admin: 07/30/19 09:29 Dose: 5,000 unit Cefepime HCl 1 gm/ Dextrose 50 mls @ 100 mls/hr IVPB Q24H [facility]; Protocol Last Admin: 07/30/19 17:25 Dose: 100 mls/hr Ipratropium [place] (Atrovent 0.02% Nebulizer -) 1 amp NEB RQID PRN PRN Reason: WHEEZING Last Admin: 07/26/19 06:28 Dose: 1 amp - Objective Vital Signs: Vital Signs Temperature 99.2 F 07/30/19 17:35 Pulse Rate 124 H 07/30/19 17:35 Respiratory Rate 20 07/30/19 20:19 Blood Pressure 115/55 L 07/30/19 17:35 O2 Sat by Pulse Oximetry (%) 99 07/30/19 20:19 Constitutional: Yes: Obese Eyes: Yes: Conjunctiva Clear Cardiovascular: Yes: Regular Rate and Rhythm, S1, S2 Respiratory: Yes: CTA Bilaterally Gastrointestinal: Yes: Normal Bowel Sounds, Soft, Abdomen, Obese Labs: CBC, BMP 07/29/19 11:15 07/30/19 09:30 INR, PTT INR Cancelled 07/25/19 17:46 Assessment/Plan FEVER/HYPOTENSION R/O SEPSIS ? GI SOURCE ?PNEUMONIA COLITIS ON CT ESRD AWAIT FINAL C/S CONTINUE EMPIRIC CEFEPIME/VANCOMYCIN
[2019-07-31] MEDS ORDERED: EPOETIN ALFA 10,000 UNIT/1 ML VIAL IVPUSH ONE ×2 (07:00)
[2019-07-31] MEDS ORDERED: SODIUM CHLORIDE 250 ML IV PRN ×2 (07:51→09:16)
[2019-07-31] MEDS: AMINO ACIDS/PROTEIN HYDROLYS 30 ML LIQUID.PKT PO SCH ×2 (09:00→16:34)
[2019-07-31] MEDS: ALLOPURINOL 100 MG TABLET (FP) PEG SCH (10:00)
[2019-07-31] MEDS ORDERED: EPOETIN ALFA 10,000 UNIT, EPOETIN ALFA 2,000 UNIT IVPUSH ONE (10:00)
[2019-07-31] MEDS: HEPARIN NA (PORCINE) 5,000 UNITS/ML 1ML VIAL SQ SCH ×2 (10:30→21:55)
[2019-07-31 10:41] LABS: HEMATOCRIT 30.1 % (35.4-49); HEMOGLOBIN 9.3 GM/dL (11.7-16.9); MCH 25.3 pg (25.7-33.7); MEAN CELL VOLUME 81.7 fl (80-96); MEAN PLT VOLUME 7.7 fl (7.5-11.1); PLATELET COUNT 337 K/MM3 (134-434); RBC 3.69 M/mm3 (4.00-5.60); RDW 17.8 % (11.9-15.9); WHITE BLOOD COUNT 12.8 K/mm3 (4.0-10.0)
[2019-07-31 10:58] LABS: BLOOD UREA NITROGEN 70.9 mg/dL (7-18); CALCIUM 9.8 mg/dL (8.5-10.1); CREATININE 6.3 mg/dL (0.55-1.3); PHOSPHOROUS 3.1 mg/dL (2.5-4.9); POTASSIUM 3.8 mmol/L (3.5-5.1)
[2019-07-31] MEDS ORDERED: PT OWN MED DRAWER 7, Y5N ONE (11:32)
--- NOTE | 2019-07-31 11:41 | PN ---
Progress Note, Physician History of Present Illness: Pt seen and examined at bedside. He is awake and appears comfortable. He is tolerating HD. - Current Medication List Current Medications: Active Medications Acetaminophen (Tylenol Suppository -) 650 mg [place] Q6H PRN PRN Reason: FEVER Last Admin: 07/29/19 22:14 Dose: 650 mg Allopurinol (Zyloprim -) 100 mg PEG DAILY [facility] Last Admin: 07/30/19 09:30 Dose: 100 mg Amino Acids (Prosource No Carb Liquid Pkt) 30 ml PO BID@0800,1730 [facility] Last Admin: 07/30/19 17:25 Dose: 30 ml Collagenase (Santyl -) 1 applic TP DAILY [facility]; Protocol Last Admin: 07/30/19 09:33 Dose: 1 applic Heparin Sodium (Porcine) (Heparin -) 5,000 unit SQ BID [facility] Last Admin: 07/31/19 10:30 Dose: Not Given Cefepime HCl 1 gm/ Dextrose 50 mls @ 100 mls/hr IVPB Q24H [facility]; Protocol Last Admin: 07/30/19 17:25 Dose: 100 mls/hr Sodium Chloride (Normal Saline -) 250 mls @ 3,000 mls/hr IV PRN PRN PRN Reason: Hypotension during Dialysis Stop: 08/01/19 09:15 Sodium Chloride (Normal Saline -) 250 mls @ 3,000 mls/hr IV PRN PRN PRN Reason: Hypotension during Dialysis Stop: 08/01/19 07:51 - Objective Vital Signs: Vital Signs Temperature 97.6 F 07/31/19 05:43 Pulse Rate 118 H 07/31/19 05:43 Respiratory Rate 22 H 07/31/19 05:43 Blood Pressure 130/74 07/31/19 05:43 O2 Sat by Pulse Oximetry (%) 99 07/30/19 20:19 Constitutional: Yes: Calm Eyes: Yes: Conjunctiva Clear HENT: Yes: Atraumatic Neck: Yes: Supple Cardiovascular: Yes: S1, S2 Respiratory: Yes: CTA Bilaterally Gastrointestinal: Yes: Normal Bowel Sounds, Soft Genitourinary: Yes: Incontinence Edema: No Integumentary: Yes: Other (sacral decub) Neurological: Yes: Confusion Labs: CBC, BMP 07/31/19 10:00 07/31/19 10:00 INR, PTT INR Cancelled 07/25/19 17:46 Assessment/Plan Current Medications Generic Name Dose Route Start Last Admin Trade Name Vandana PRN Reason Stop Dose Admin Acetaminophen 650 mg 07/26/19 00:41 07/29/19 22:14 Tylenol Suppository - [place] 650 mg Q6H PRN Administration FEVER Allopurinol 100 mg 07/26/19 10:00 07/30/19 09:30 Zyloprim - PEG 100 mg DAILY [facility] Administration Amino Acids 30 ml 07/26/19 17:30 07/30/19 17:25 Prosource No Carb Liquid Pkt PO 30 ml BID@0800,1730 [facility] Administration Collagenase 1 applic 07/26/19 10:00 07/30/19 09:33 Santyl - TP 1 applic DAILY [facility] Administration Protocol Heparin Sodium (Porcine) 5,000 unit 07/26/19 10:00 07/31/19 10:30 Heparin - SQ Not Given BID [facility] Cefepime HCl 1 gm/ Dextrose 50 mls @ 100 mls/hr 07/26/19 16:30 07/30/19 17:25 IVPB 100 mls/hr Q24H [facility] Administration Protocol Sodium Chloride 250 mls @ 3,000 mls/hr 07/31/19 09:16 Normal Saline - IV 08/01/19 09:15 PRN PRN Hypotension during Dialysis Sodium Chloride 250 mls @ 3,000 mls/hr 07/31/19 07:51 Normal Saline - IV 08/01/19 07:51 PRN PRN Hypotension during Dialysis Impression 1. ESRD 2. sepsis 3. gout 4. HTN 5. CHF 6. DM 7. hx bipolar 8. MOLLY 9. non compliance 10. bacteremia 11. lactic acidosis 12. new onset a-fib 13. hypokalemia Plan - HD today - epogen with hd - renal diet - monitor bp - abx per primary team
--- NOTE | 2019-07-31 11:51 | PN ---
Progress Note (short form) - Note Progress Note: Pt seen/ examined. chart reviewed. Being dialized chronic ill appearance. awake Vital Signs Temp 97.6 F 07/31/19 05:43 Pulse 118 H 07/31/19 05:43 Resp 22 H 07/31/19 05:43 BP 130/74 07/31/19 05:43 Pulse Ox 99 07/30/19 20:19 Intake & Output 07/30/19 07/30/19 07/31/19 11:59 23:59 11:59 Intake Total 200 Balance 200 Weight 220 lb 3.2 oz 207 lb 6.4 oz Intake: IVPB 100 Tube Irrigant 100 Other: Voiding Method Diaper Diaper Diaper # Unmeasured Voids Void 2 1 Bowel Movement No No # Bowel Movements 1 Body Mass Index (BMI) 33.4 Weight Measurement Method Patient Lift Scale Patient Lift Scale Active Medications Acetaminophen (Tylenol Suppository -) 650 mg [place] Q6H PRN PRN Reason: FEVER Last Admin: 07/29/19 22:14 Dose: 650 mg Allopurinol (Zyloprim -) 100 mg PEG DAILY [facility] Last Admin: 07/30/19 09:30 Dose: 100 mg Amino Acids (Prosource No Carb Liquid Pkt) 30 ml PO BID@0800,1730 [facility] Last Admin: 07/30/19 17:25 Dose: 30 ml Collagenase (Santyl -) 1 applic TP DAILY [facility]; Protocol Last Admin: 07/30/19 09:33 Dose: 1 applic Heparin Sodium (Porcine) (Heparin -) 5,000 unit SQ BID [facility] Last Admin: 07/31/19 10:30 Dose: Not Given Cefepime HCl 1 gm/ Dextrose 50 mls @ 100 mls/hr IVPB Q24H [facility]; Protocol Last Admin: 07/30/19 17:25 Dose: 100 mls/hr Sodium Chloride (Normal Saline -) 250 mls @ 3,000 mls/hr IV PRN PRN PRN Reason: Hypotension during Dialysis Stop: 08/01/19 09:15 Sodium Chloride (Normal Saline -) 250 mls @ 3,000 mls/hr IV PRN PRN PRN Reason: Hypotension during Dialysis Stop: 08/01/19 07:51 CBC, BMP 07/31/19 10:00 07/31/19 10:00 physical Exam S1 S2 RRR Lungs decreased Abd- soft, NT, Peg+ No edema PLAN restraints-- mittens to prevent him from pulling out iv line , O2 NC iv antibiotics may need to start peg feeds-- gi f/u requested ct scan -- noted -- ? colitis LFT trending down s/p prbc continue with meds cultures noted gi feeding ? after gi f/u will follow Problem List - Problems (1) CHF (congestive heart failure) Code(s): I50.9 - HEART FAILURE, UNSPECIFIED (2) COPD (chronic obstructive pulmonary disease) Code(s): J44.9 - CHRONIC OBSTRUCTIVE PULMONARY DISEASE, UNSPECIFIED (3) Elevated liver enzymes Code(s): R74.8 - ABNORMAL LEVELS OF OTHER SERUM ENZYMES (4) Sepsis Code(s): A41.9 - SEPSIS, UNSPECIFIED ORGANISM Qualifiers: Sepsis type: sepsis due to unspecified organism Sepsis acute organ dysfunction status: unspecified Qualified Code(s): A41.9 - Sepsis, unspecified organism (5) Acute metabolic encephalopathy Code(s): G93.41 - METABOLIC ENCEPHALOPATHY (6) ESRD (end stage renal disease) on dialysis Code(s): N18.6 - END STAGE RENAL DISEASE; Z99.2 - DEPENDENCE ON RENAL DIALYSIS (7) Elevated LFTs Code(s): R94.5 - ABNORMAL RESULTS OF LIVER FUNCTION STUDIES
--- NOTE | 2019-07-31 13:56 | CON.GI ---
Consult Consult Specialty:: GI Referred by:: Dr Roman - History of Present Illness History of Present Illness: 59 yo man with esrd on hd via PC, CHF, COPDpatient on previous admissions was anoted to have anemia and , NHR with bipolar/schizophrenia- recently admitted in June for sepsis with GT infection, peg site abscess. This resolved after giving antibiotics and local wound care. At that time incision and drainage was not done. He was treated with zosyn. He is now admitted from HD with hypotension and fevers. Sputum and Peg site positive for Pseudomonas. The patient on previous admissions had guiac postive stool. He was poor candidate for any procedures because of underlying medical problems CT scan did not reveal any abdominal wall collections, there was no evidence of abdominal wall fascitis. There was questionable thickening in the descending colon. He was noted to have abdominal pain and intermittent diarrhea. - Past Medical History Cardio/Vascular: Yes: CHF, HTN, Hyperlipdemia Pulmonary: Yes: COPD Renal/: Yes: Renal Failure, Renal Inusuff, Hemodialysis Psych: Yes: Bipolar, Schizophrenia Musculoskeletal: Yes: Other (Slight edema of the skin in left buttock , no pain , not tender, there is superficial breakdown of the skin of left buttock.) Rheumatology: Yes: Gout Dermatology: Yes: Other ( BL lateral maleoli pressure ulcers, sacral decub ulcer stage 3) Additional Medical History: obesity, non compliance - Past Surgical History Past Surgical History: Yes: None - Alcohol/Substance Use Hx Alcohol Use: No History of Substance Use: reports: None - Smoking History Smoking history: Never smoked Have you smoked in the past 12 months: No Aproximately how many cigarettes per day: 0 - Social History Usual Living Arrangement: Prison ADL: Support Services Occupation: disability History of Recent Travel: No Home Medications - Allergies Allergies/Adverse Reactions: Allergies Allergy/AdvReac Type Severity Reaction Status Date / Time No Known Allergies Allergy Verified 07/01/19 12:38 - Home Medications Home Medications: Ambulatory Orders Acetaminophen [Tylenol] 650 mg PO ASDIR 03/08/19 Allopurinol [Zyloprim -] 100 mg PO DAILY 03/08/19 Atorvastatin Ca [Lipitor] 40 mg PO HS 03/08/19 Zinc Sulfate 220 mg PO DAILY 03/08/19 Collagenase Clostridium Hist. [Santyl -] 1 applic TP BID 07/01/19 Folic Acid 1 mg PO DAILY 07/01/19 Folic Acid/Vit B Complex and C [Dialyvite Tablet] 1 each PO DAILY 07/01/19 Aspirin [ASA -] 81 mg GT DAILY #30 tab.chew 07/13/19 Collagenase Clostridium Hist. [Santyl -] 1 applic TP DAILY #1 tube 07/13/19 Metoprolol Tartrate [Lopressor -] 25 mg GT BID #60 tablet 07/13/19 Albuterol 0.083% Nebulizer Jaclyn [Ventolin 0.083%] 1 neb NEB Q4H PRN 07/26/19 Physical Exam-GI Vital Signs: Vital Signs Temperature 98.6 F 07/31/19 09:00 Pulse Rate 80 07/31/19 13:36 Respiratory Rate 18 07/31/19 13:36 Blood Pressure 128/42 L 07/31/19 13:36 O2 Sat by Pulse Oximetry (%) 99 07/30/19 20:19 Constitutional: Yes: No Distress Eyes: Yes: Conjunctiva Clear HENT: Yes: Atraumatic Neck: Yes: Trachea Midline Cardiovascular: Yes: Regular Rate and Rhythm Respiratory: Yes: CTA Bilaterally ...Palpate: Yes: Soft, Tenderness, Epigastium (--over the PEG site,compared to the previous admission the peg site abscess has resolved). No: Firm/Rigid, Guarding, Hepatomegaly, Pulsatile Mass, Splenomegaly, Tenderness Labs: CBC, BMP 07/31/19 10:00 07/31/19 10:00 INR, PTT INR Cancelled 07/25/19 17:46 Imaging - Results Cat Scan: Report Reviewed Problem List - Problems (1) Elevated liver enzymes Assessment/Plan: improved off statins Code(s): R74.8 - ABNORMAL LEVELS OF OTHER SERUM ENZYMES (2) Infection of PEG site Assessment/Plan: resolved Code(s): K94.22 - GASTROSTOMY INFECTION (3) Colon wall thickening Assessment/Plan: by catscan associated with intermittent diarrhea r/o c.diff R> stool for c diff Code(s): K63.9 - DISEASE OF INTESTINE, UNSPECIFIED
[2019-07-31] MEDS: COLLAGENASE CLOSTRIDIUM HIST. 30 GRAMS TUBE TP SCH (14:24)
[2019-07-31] MEDS ORDERED: CEFEPIME HCL 1 GM VIAL (RESTRICTED TO ID) ONE (16:20)
[2019-07-31] MEDS ORDERED: DEXTROSE 5%-WATER - 50 ML IVPB ONE (16:20)
[2019-07-31] MEDS: CEFEPIME 1 GM in DEXTROSE 5%-WATER - 50 ML IVPB SCH (16:33)
[2019-08-01] MEDS: AMINO ACIDS/PROTEIN HYDROLYS 30 ML LIQUID.PKT PO SCH ×2 (08:45→18:23)
--- NOTE | 2019-08-01 08:53 | PN ---
Progress Note, Physician History of Present Illness: GI FOLLOW UP NOTE Patient examined and case discussed with Dr Fernandez As per RN no reports of diarrhea during the night. Lab work showing downtrend in LFTs. Stool collected and sent for c-diff pending results. - Current Medication List Current Medications: Active Medications Acetaminophen (Tylenol Suppository -) 650 mg [place] Q6H PRN PRN Reason: FEVER Last Admin: 07/29/19 22:14 Dose: 650 mg Allopurinol (Zyloprim -) 100 mg PEG DAILY [facility] Last Admin: 07/31/19 10:00 Dose: Not Given Amino Acids (Prosource No Carb Liquid Pkt) 30 ml PO BID@0800,1730 [facility] Last Admin: 08/01/19 08:45 Dose: 30 ml Collagenase (Santyl -) 1 applic TP DAILY [facility]; Protocol Last Admin: 07/31/19 14:24 Dose: 1 applic Heparin Sodium (Porcine) (Heparin -) 5,000 unit SQ BID [facility] Last Admin: 07/31/19 21:55 Dose: 5,000 unit Cefepime HCl 1 gm/ Dextrose 50 mls @ 100 mls/hr IVPB Q24H [facility]; Protocol Last Admin: 07/31/19 16:33 Dose: 100 mls/hr Sodium Chloride (Normal Saline -) 250 mls @ 3,000 mls/hr IV PRN PRN PRN Reason: Hypotension during Dialysis Stop: 08/01/19 09:15 - Objective Vital Signs: Vital Signs Temperature 98.8 F 08/01/19 06:59 Pulse Rate 114 H 08/01/19 06:59 Respiratory Rate 18 08/01/19 06:59 Blood Pressure 128/81 08/01/19 06:59 O2 Sat by Pulse Oximetry (%) 96 07/31/19 21:00 Constitutional: Yes: No Distress, Calm, Obese Eyes: Yes: Conjunctiva Clear HENT: Yes: Atraumatic Cardiovascular: Yes: Pulse Irregular Respiratory: Yes: Regular, Diminished Gastrointestinal: Yes: Normal Bowel Sounds, Soft, Tenderness (llq) Neurological: Yes: Alert Psychiatric: Yes: Alert Labs: CBC, BMP 07/31/19 10:00 07/31/19 10:00 INR, PTT INR Cancelled 07/25/19 17:46 Problem List - Problems (1) Colon wall thickening Assessment/Plan: >stool collected for C-diff, results pending >CTAP shows mild nonspecific mesenteric soft tissue stranding along partially imaged descending colon--possible colitis >IV antibiotics Code(s): K63.9 - DISEASE OF INTESTINE, UNSPECIFIED (2) Elevated LFTs Assessment/Plan: >showing downtrend, improved after discontinuing statins >monitor LFTs daily Code(s): R94.5 - ABNORMAL RESULTS OF LIVER FUNCTION STUDIES (3) Infection of PEG site Assessment/Plan: >cleanse area with Betadine daily >daily dressing changes Code(s): K94.22 - GASTROSTOMY INFECTION
[2019-08-01] MEDS: HEPARIN NA (PORCINE) 5,000 UNITS/ML 1ML VIAL SQ SCH ×2 (09:07→21:51)
[2019-08-01] MEDS: ALLOPURINOL 100 MG TABLET (FP) PEG SCH (09:07)
[2019-08-01] MEDS: COLLAGENASE CLOSTRIDIUM HIST. 30 GRAMS TUBE TP SCH (09:08)
--- NOTE | 2019-08-01 11:40 | PN ---
Progress Note, Physician History of Present Illness: Pt seen and examined at bedside. He appears comfortable. - Current Medication List Current Medications: Active Medications Acetaminophen (Tylenol Suppository -) 650 mg [place] Q6H PRN PRN Reason: FEVER Last Admin: 07/29/19 22:14 Dose: 650 mg Allopurinol (Zyloprim -) 100 mg PEG DAILY [facility] [place] Last Admin: 08/01/19 09:07 Dose: 100 mg Amino Acids (Prosource No Carb Liquid Pkt) 30 ml PO BID@0800,1730 [facility] [place] Last Admin: 08/01/19 08:45 Dose: 30 ml Collagenase (Santyl -) 1 applic TP DAILY [facility] [place]; Protocol Last Admin: 08/01/19 09:08 Dose: 1 applic Heparin Sodium (Porcine) (Heparin -) 5,000 unit SQ BID [facility] [place] Last Admin: 08/01/19 09:07 Dose: 5,000 unit Cefepime HCl 1 gm/ Dextrose 50 mls @ 100 mls/hr IVPB Q24H [facility]; Protocol Last Admin: 07/31/19 16:33 Dose: 100 mls/hr - Objective Vital Signs: Vital Signs Temperature 98.9 F 08/01/19 10:00 Pulse Rate 115 H 08/01/19 10:00 Respiratory Rate 18 08/01/19 10:00 Blood Pressure 129/85 08/01/19 10:00 O2 Sat by Pulse Oximetry (%) 96 07/31/19 21:00 Constitutional: Yes: Calm Eyes: Yes: Conjunctiva Clear HENT: Yes: Atraumatic Neck: Yes: Supple Cardiovascular: Yes: S1, S2 Respiratory: Yes: CTA Bilaterally Gastrointestinal: Yes: Normal Bowel Sounds, Soft, Other (peg tube) Genitourinary: Yes: Incontinence Musculoskeletal: Yes: Muscle Weakness Edema: No Neurological: Yes: Confusion Labs: CBC, BMP 07/31/19 10:00 07/31/19 10:00 INR, PTT INR Cancelled 07/25/19 17:46 Problem List - Problems (1) CHF (congestive heart failure) Code(s): I50.9 - HEART FAILURE, UNSPECIFIED (2) COPD (chronic obstructive pulmonary disease) Code(s): J44.9 - CHRONIC OBSTRUCTIVE PULMONARY DISEASE, UNSPECIFIED (3) ESRD (end stage renal disease) on dialysis Code(s): N18.6 - END STAGE RENAL DISEASE; Z99.2 - DEPENDENCE ON RENAL DIALYSIS Assessment/Plan Current Medications Generic Name Dose Route Start Last Admin Trade Name Vandana PRN Reason Stop Dose Admin Acetaminophen 650 mg 07/26/19 00:41 07/29/19 22:14 Tylenol Suppository - [place] 650 mg Q6H PRN Administration FEVER Allopurinol 100 mg 07/26/19 10:00 08/01/19 09:07 Zyloprim - PEG 100 mg DAILY [facility] Administration Amino Acids 30 ml 07/26/19 17:30 08/01/19 08:45 Prosource No Carb Liquid Pkt PO 30 ml BID@0800,1730 [facility] Administration Collagenase 1 applic 07/26/19 10:00 08/01/19 09:08 Santyl - TP 1 applic DAILY [facility] Administration Protocol Heparin Sodium (Porcine) 5,000 unit 07/26/19 10:00 08/01/19 09:07 Heparin - SQ 5,000 unit BID [facility] Administration Cefepime HCl 1 gm/ Dextrose 50 mls @ 100 mls/hr 07/26/19 16:30 07/31/19 16:33 IVPB 100 mls/hr Q24H [facility] Administration Protocol Impression 1. ESRD 2. sepsis 3. gout 4. HTN 5. CHF 6. DM 7. hx bipolar 8. MOLLY 9. non compliance 10. bacteremia 11. lactic acidosis 12. new onset a-fib 13. hypokalemia Plan - HD tomorrow - epogen with hd - renal diet - monitor bp - abx per primary team
[2019-08-01] MEDS ORDERED: EPOETIN ALFA 10,000 UNIT/1 ML VIAL IVPUSH ONE (11:41)
[2019-08-01] MEDS ORDERED: SODIUM CHLORIDE 250 ML IV PRN (12:05)
--- NOTE | 2019-08-01 12:15 | PN ---
Progress Note (short form) - Note Progress Note: Pt is more awake no distress no diarrhea today 2 episodes yesterday Vital Signs - 24 hr 07/31/19 07/31/19 07/31/19 12:30 13:00 13:36 Temperature Pulse Rate 81 81 80 Respiratory 18 18 18 Rate Blood Pressure 112/62 120/40 L 128/42 L O2 Sat by Pulse Oximetry (%) 07/31/19 07/31/19 07/31/19 14:00 18:00 21:00 Temperature 98.6 F 98.7 F Pulse Rate 124 H 122 H Respiratory 18 20 18 Rate Blood Pressure 113/80 119/78 O2 Sat by Pulse 97 96 Oximetry (%) 08/01/19 08/01/19 06:59 10:00 Temperature 98.8 F 98.9 F Pulse Rate 114 H 115 H Respiratory 18 18 Rate Blood Pressure 128/81 129/85 O2 Sat by Pulse Oximetry (%) Current Medications Generic Name Dose Route Start Last Admin Trade Name Freq PRN Reason Stop Dose Admin Acetaminophen 650 mg 07/26/19 00:41 07/29/19 22:14 Tylenol Suppository - [place] 650 mg Q6H PRN Administration FEVER Allopurinol 100 mg 07/26/19 10:00 08/01/19 09:07 Zyloprim - PEG 100 mg DAILY [facility] Administration Amino Acids 30 ml 07/26/19 17:30 08/01/19 08:45 Prosource No Carb Liquid Pkt PO 30 ml BID@0800,1730 [facility] Administration Collagenase 1 applic 07/26/19 10:00 08/01/19 09:08 Santyl - TP 1 applic DAILY [facility] Administration Protocol Epoetin Shawn 12,000 unit 08/01/19 11:41 Procrit - IVPUSH 08/01/19 11:42 ONCE ONE Heparin Sodium (Porcine) 5,000 unit 07/26/19 10:00 08/01/19 09:07 Heparin - SQ 5,000 unit BID [facility] Administration Cefepime HCl 1 gm/ Dextrose 50 mls @ 100 mls/hr 07/26/19 16:30 07/31/19 16:33 IVPB 100 mls/hr Q24H [facility] Administration Protocol Sodium Chloride 250 mls @ 3,000 mls/hr 08/01/19 11:41 Normal Saline - IV 08/02/19 11:41 PRN PRN Hypotension during Dialysis Microbiology 07/25/19 17:46 Blood - Peripheral Venous Blood Culture - Final NO GROWTH AFTER 5 DAYS INCUBATION 07/25/19 17:46 Blood - Peripheral Venous Blood Culture - Final NO GROWTH AFTER 5 DAYS INCUBATION 07/26/19 15:00 Peg Site Gram Stain - Final 07/26/19 15:00 Peg Site Wound Culture - Final Pseudomonas Aeruginosa Yeast Like Organism Enterococcus Faecalis 07/26/19 05:30 Sputum - Expectorated Gram Stain - Final 07/26/19 05:30 Sputum - Expectorated Sputum Culture - Final Pseudomonas Aeruginosa 07/25/19 20:26 Urine - Urine Clean Catch Urine Culture - Final NO GROWTH OBTAINED S1 S2 RRR Lungs decreased Abd- soft, NT, Peg+ No edema PLAN restraints-- mittens to prevent him from pulling out iv line , O2 NC iv antibiotics __>.cefepime restart feeds LFT trending down -- lipitor dc s/p prbc ct abd noted-->colitis continue with meds cultures noted ID eval appreciated cdiff stool pending Problem List - Problems (1) CHF (congestive heart failure) Code(s): I50.9 - HEART FAILURE, UNSPECIFIED (2) COPD (chronic obstructive pulmonary disease) Code(s): J44.9 - CHRONIC OBSTRUCTIVE PULMONARY DISEASE, UNSPECIFIED (3) Elevated liver enzymes Code(s): R74.8 - ABNORMAL LEVELS OF OTHER SERUM ENZYMES (4) Sepsis Code(s): A41.9 - SEPSIS, UNSPECIFIED ORGANISM Qualifiers: Sepsis type: sepsis due to unspecified organism Sepsis acute organ dysfunction status: unspecified Qualified Code(s): A41.9 - Sepsis, unspecified organism (5) Acute metabolic encephalopathy Code(s): G93.41 - METABOLIC ENCEPHALOPATHY (6) ESRD (end stage renal disease) on dialysis Code(s): N18.6 - END STAGE RENAL DISEASE; Z99.2 - DEPENDENCE ON RENAL DIALYSIS (7) Elevated LFTs Code(s): R94.5 - ABNORMAL RESULTS OF LIVER FUNCTION STUDIES
[2019-08-01 12:35] LABS: ALBUMIN 1.9 g/dl (3.4-5.0); BILIRUBIN,TOTAL 0.5 mg/dL (0.2-1); BLOOD UREA NITROGEN 43.4 mg/dL (7-18); CALCIUM 9.8 mg/dL (8.5-10.1); CREATININE 4.3 mg/dL (0.55-1.3); MAGNESIUM 2.1 mg/dL (1.8-2.4); POTASSIUM 3.7 mmol/L (3.5-5.1); TOT PROT 7.5 g/dl (6.4-8.2)
[2019-08-01] MEDS: ACETAMINOPHEN 650 MG SUPP.RECT PR PRN (18:27)
[2019-08-01] MEDS ORDERED: PT OWN MED DRAWER 7, Y5N ONE (21:02)
[2019-08-01] MEDS: VANCOMYCIN 250 MG/5 ML ORAL SOLUTION PO SCH ×2 (21:57→23:01)
[2019-08-02] MEDS: VANCOMYCIN 250 MG/5 ML ORAL SOLUTION PO SCH ×2 (05:12→11:53)
[2019-08-02] MEDS ORDERED: POVIDONE-IODINE 10% SOLN 118 ML BOTTLE TP ONE (08:31)
--- NOTE | 2019-08-02 08:36 | PN ---
Progress Note, Physician History of Present Illness: GI FOLLOW UP NOTE Patient examined and case discussed with Dr Fernandez As per RN one episode of diarrhea during the night. No reports of rectal bleeding or melena. Stool collection positive for c-diff. - Current Medication List Current Medications: Active Medications Acetaminophen (Tylenol Suppository -) 650 mg [place] Q6H PRN PRN Reason: FEVER Last Admin: 08/01/19 18:27 Dose: 650 mg Allopurinol (Zyloprim -) 100 mg PEG DAILY [facility] Last Admin: 08/01/19 09:07 Dose: 100 mg Amino Acids (Prosource No Carb Liquid Pkt) 30 ml PO BID@0800,1730 [facility] Last Admin: 08/01/19 18:23 Dose: 30 ml Collagenase (Santyl -) 1 applic TP DAILY [facility]; Protocol Last Admin: 08/01/19 09:08 Dose: 1 applic Epoetin Shawn (Procrit -) 12,000 unit IVPUSH ONCE ONE Stop: 08/01/19 11:42 Heparin Sodium (Porcine) (Heparin -) 5,000 unit SQ BID [facility] Last Admin: 08/01/19 21:51 Dose: 5,000 unit Sodium Chloride (Normal Saline -) 250 mls @ 3,000 mls/hr IV PRN PRN PRN Reason: Hypotension during Dialysis Stop: 08/02/19 11:41 Metoprolol Tartrate (Lopressor -) 25 mg GT BID [facility] Vancomycin HCl (Vancomycin Oral Solution) 125 mg PO Q6HPO [facility] Last Admin: 08/02/19 05:12 Dose: 125 mg - Objective Vital Signs: Vital Signs Temperature 98.1 F 08/02/19 06:39 Pulse Rate 130 H 08/02/19 06:39 Respiratory Rate 18 08/02/19 06:39 Blood Pressure 101/70 08/02/19 06:39 O2 Sat by Pulse Oximetry (%) 124 H 08/01/19 21:00 Constitutional: Yes: No Distress, Calm, Obese Eyes: Yes: Conjunctiva Clear HENT: Yes: Atraumatic Cardiovascular: Yes: Pulse Irregular Respiratory: Yes: Regular, Diminished Gastrointestinal: Yes: Normal Bowel Sounds, Soft, Abdomen, Obese Neurological: Yes: Alert Psychiatric: Yes: Alert Labs: CBC, BMP 07/31/19 10:00 08/01/19 11:32 INR, PTT INR Cancelled 07/25/19 17:46 Problem List - Problems (1) Colon wall thickening Assessment/Plan: >C-diff positive >Vancomycin q6h >CTAP shows mild nonspecific mesenteric soft tissue stranding along partially imaged descending colon--possible colitis Code(s): K63.9 - DISEASE OF INTESTINE, UNSPECIFIED (2) Elevated LFTs Assessment/Plan: >improved after discontinuing statins >monitor LFTs daily Code(s): R94.5 - ABNORMAL RESULTS OF LIVER FUNCTION STUDIES (3) Infection of PEG site Assessment/Plan: >Betadine soaks daily >daily dressing changes Code(s): K94.22 - GASTROSTOMY INFECTION
[2019-08-02] MEDS: AMINO ACIDS/PROTEIN HYDROLYS 30 ML LIQUID.PKT PO SCH ×2 (09:58→17:26)
[2019-08-02] MEDS: METOPROLOL TARTRATE 25 MG TABLET (FP) GT SCH ×2 (09:59→22:30)
[2019-08-02] MEDS: ALLOPURINOL 100 MG TABLET (FP) PEG SCH (09:59)
[2019-08-02] MEDS: COLLAGENASE CLOSTRIDIUM HIST. 30 GRAMS TUBE TP SCH (09:59)
--- NOTE | 2019-08-02 11:16 | PN ---
Progress Note, Physician History of Present Illness: Pt seen and examined at bedside. He appears comfortable. He is tolerating tube feeds. - Current Medication List Current Medications: Active Medications Acetaminophen (Tylenol Suppository -) 650 mg [place] Q6H PRN PRN Reason: FEVER Last Admin: 08/01/19 18:27 Dose: 650 mg Allopurinol (Zyloprim -) 100 mg PEG DAILY [facility] Last Admin: 08/02/19 09:59 Dose: 100 mg Amino Acids (Prosource No Carb Liquid Pkt) 30 ml PO BID@0800,1730 [facility] Last Admin: 08/02/19 09:58 Dose: 30 ml Collagenase (Santyl -) 1 applic TP DAILY [facility]; Protocol Last Admin: 08/02/19 09:59 Dose: 1 applic Epoetin Shawn (Procrit -) 12,000 unit IVPUSH ONCE ONE Stop: 08/01/19 11:42 Sodium Chloride (Normal Saline -) 250 mls @ 3,000 mls/hr IV PRN PRN PRN Reason: Hypotension during Dialysis Stop: 08/02/19 11:41 Metoprolol Tartrate (Lopressor -) 25 mg GT BID [facility] Last Admin: 08/02/19 09:59 Dose: 25 mg Povidone Iodine (Betadine 10% Solution -) 1 applic TP DAILY ONE Stop: 08/02/19 08:32 Last Admin: 08/02/19 09:58 Dose: 1 each Vancomycin HCl (Vancomycin Oral Solution) 125 mg PO Q6HPO [facility] Last Admin: 08/02/19 05:12 Dose: 125 mg - Objective Vital Signs: Vital Signs Temperature 98 F 08/02/19 10:00 Pulse Rate 128 H 08/02/19 10:00 Respiratory Rate 18 08/02/19 10:00 Blood Pressure 120/65 08/02/19 10:00 O2 Sat by Pulse Oximetry (%) 124 H 08/01/19 21:00 Constitutional: Yes: Calm Eyes: Yes: Conjunctiva Clear HENT: Yes: Atraumatic Cardiovascular: Yes: S1, S2 Respiratory: Yes: CTA Bilaterally Gastrointestinal: Yes: Soft, Other (peg tube) Genitourinary: Yes: Incontinence Musculoskeletal: Yes: Muscle Weakness Edema: No Neurological: Yes: Confusion Labs: CBC, BMP 07/31/19 10:00 08/01/19 11:32 INR, PTT INR Cancelled 07/25/19 17:46 Problem List - Problems (1) CHF (congestive heart failure) Code(s): I50.9 - HEART FAILURE, UNSPECIFIED (2) COPD (chronic obstructive pulmonary disease) Code(s): J44.9 - CHRONIC OBSTRUCTIVE PULMONARY DISEASE, UNSPECIFIED (3) ESRD (end stage renal disease) on dialysis Code(s): N18.6 - END STAGE RENAL DISEASE; Z99.2 - DEPENDENCE ON RENAL DIALYSIS Assessment/Plan Current Medications Generic Name Dose Route Start Last Admin Trade Name Freq PRN Reason Stop Dose Admin Acetaminophen 650 mg 07/26/19 00:41 08/01/19 18:27 Tylenol Suppository - [place] 650 mg Q6H PRN Administration FEVER Allopurinol 100 mg 07/26/19 10:00 08/02/19 09:59 Zyloprim - PEG 100 mg DAILY RONALD Administration Amino Acids 30 ml 07/26/19 17:30 08/02/19 09:58 Prosource No Carb Liquid Pkt PO 30 ml BID@0800,1730 RONALD Administration Collagenase 1 applic 07/26/19 10:00 08/02/19 09:59 Santyl - TP 1 applic DAILY RONALD Administration Protocol Epoetin Shawn 12,000 unit 08/01/19 11:41 Procrit - IVPUSH 08/01/19 11:42 ONCE ONE Sodium Chloride 250 mls @ 3,000 mls/hr 08/01/19 11:41 Normal Saline - IV 08/02/19 11:41 PRN PRN Hypotension during Dialysis Metoprolol Tartrate 25 mg 08/02/19 10:00 08/02/19 09:59 Lopressor - GT 25 mg BID RONALD Administration Povidone Iodine 1 applic 08/02/19 08:31 08/02/19 09:58 Betadine 10% Solution - TP 08/02/19 08:32 1 each DAILY ONE Administration Vancomycin HCl 125 mg 08/01/19 18:00 08/02/19 05:12 Vancomycin Oral Solution PO 125 mg Q6HPO RONALD Administration Impression 1. ESRD 2. sepsis 3. gout 4. HTN 5. CHF 6. DM 7. hx bipolar 8. MOLLY 9. non compliance 10. bacteremia 11. lactic acidosis 12. new onset a-fib 13. hypokalemia Plan - HD today - cont epogen - pt tolerating feeds - agree with nepro - monitor bp - abx per primary team
[2019-08-02] MEDS ORDERED: EPOETIN ALFA 10,000 UNIT, EPOETIN ALFA 2,000 UNIT IVPUSH ONE (12:00)
[2019-08-02] MEDS: EPOETIN ALFA 10,000 UNIT, EPOETIN ALFA 2,000 UNIT IVPUSH SCH (13:00)
--- NOTE | 2019-08-02 13:07 | DS ---
Physical Examination Vital Signs: Vital Signs Temperature 98 F 08/02/19 10:00 Pulse Rate 118 H 08/02/19 12:35 Respiratory Rate 20 08/02/19 12:35 Blood Pressure 97/71 08/02/19 12:35 O2 Sat by Pulse Oximetry (%) 124 H 08/01/19 21:00 Constitutional: Yes: No Distress, Calm Cardiovascular: Yes: Regular Rate and Rhythm Respiratory: Yes: Diminished Gastrointestinal: Yes: Normal Bowel Sounds, Soft, Abdomen, Obese. No: Tenderness Edema: No Labs: CBC, BMP 07/31/19 10:00 08/01/19 11:32 Discharge Summary Problems reviewed: Yes Reason For Visit: SEPSIS , PNEUMONIA Current Active Problems CHF (congestive heart failure) (Acute) COPD (chronic obstructive pulmonary disease) (Acute) Colon wall thickening (Acute) Elevated liver enzymes (Acute) Hospital-acquired pneumonia (Acute) Hypertension (Acute) Sacral decubitus ulcer, stage III (Acute) Sepsis (Acute) Hospital Course: - Admission Chief Complaint: hypotension, tachycardia History of Present Illness: 59 year old morbidly obese male from [place] who is non-verbal with a PMHx of ESRD ( , , ), HTN, HLD, CHF, COPD, Gout, Bipolar Disorder, and schizophrenia arrived to Emergency department for hypotension and tachycardia. Patient vitals prior to having dialysis were HR 140s and BP 90/60 which prompted ED visit. In ED patient noted with Hr in 140s BP fluctuating (90/60 -- 100/60). Patient does not speak, occasionally shakes his head and answers "yes" to some questions. Patient has right perma-cath for dialysis, and G-tube. History is limited due to mental state Hospital course Pt admitted for sepsis- possible pneumonia , colitis CT abdomen-- colitis has diarrhea Seen by ID, renal and GI Started on Iv antibiotics-->cefepime Stool positive for cdiff seen by cardiology for elevated HR-- due to sepsis start GT vanco Restarted on Metoprolol today pt is stable for dc to [place] sputum culture pseudomonas Condition: Stable - Instructions Referrals: Earnestine Shah MD [Primary Care Provider] - - Home Medications Comprehensive Discharge Medication List: Ambulatory Orders Acetaminophen [Tylenol] 650 mg PO ASDIR 03/08/19 Allopurinol [Zyloprim -] 100 mg PO DAILY 03/08/19 Zinc Sulfate 220 mg PO DAILY 03/08/19 Collagenase Clostridium Hist. [Santyl -] 1 applic TP BID 07/01/19 Folic Acid 1 mg PO DAILY 07/01/19 Folic Acid/Vit B Complex and C [Dialyvite Tablet] 1 each PO DAILY 07/01/19 Aspirin [ASA -] 81 mg GT DAILY #30 tab.chew 07/13/19 Collagenase Clostridium Hist. [Santyl -] 1 applic TP DAILY #1 tube 07/13/19 Metoprolol Tartrate [Lopressor -] 25 mg GT BID #60 tablet 07/13/19 Albuterol 0.083% Nebulizer Jaclyn [Ventolin 0.083% Nebulizer Soln -] 1 neb NEB Q4H PRN 07/26/19 Vancomycin Oral Solution 125 mg PO Q6HPO #100 ml 08/02/19
[2019-08-02 13:15] LABS: HEMATOCRIT 32.4 % (35.4-49); HEMOGLOBIN 10.2 GM/dL (11.7-16.9); MCH 26.1 pg (25.7-33.7); MCHC 31.6 g/dl (32.0-35.9); MEAN CELL VOLUME 82.6 fl (80-96); MEAN PLT VOLUME 7.9 fl (7.5-11.1); PLATELET COUNT 257 K/MM3 (134-434); RBC 3.92 M/mm3 (4.00-5.60); RDW 18.4 % (11.9-15.9); WHITE BLOOD COUNT 12.5 K/mm3 (4.0-10.0)
[2019-08-02 13:39] LABS: BLOOD UREA NITROGEN 59.6 mg/dL (7-18); CREATININE 5.4 mg/dL (0.55-1.3); POTASSIUM 3.5 mmol/L (3.5-5.1)
[2019-08-02] MEDS ORDERED: SODIUM CHLORIDE 250 ML IV STA (23:31)
[2019-08-03] MEDS: VANCOMYCIN 250 MG/5 ML ORAL SOLUTION PO SCH ×4 (00:03→17:02)
[2019-08-03] MEDS: AMINO ACIDS/PROTEIN HYDROLYS 30 ML LIQUID.PKT PO SCH ×2 (08:25→17:02)
[2019-08-03] MEDS: COLLAGENASE CLOSTRIDIUM HIST. 30 GRAMS TUBE TP SCH (09:13)
[2019-08-03] MEDS: ALLOPURINOL 100 MG TABLET (FP) PEG SCH (09:13)
[2019-08-03] MEDS: METOPROLOL TARTRATE 25 MG TABLET (FP) GT SCH ×2 (09:13→22:12)
--- NOTE | 2019-08-03 11:31 | PN ---
Progress Note (short form) - Note Progress Note: Pt is more awake no distress diarrhea++no diarrhea today discharge held due to uncontrolled HR during dialysis unable to tolerate dialysis per RN yesterday Vital Signs - 24 hr 08/02/19 08/02/19 08/02/19 12:25 12:35 13:05 Temperature 97.6 F Pulse Rate 93 H 118 H 136 H Respiratory 20 20 20 Rate Blood Pressure 107/76 97/71 83/53 L O2 Sat by Pulse Oximetry (%) 08/02/19 08/02/19 08/02/19 13:15 13:52 14:00 Temperature 97.6 F Pulse Rate 93 H 93 H 121 H Respiratory 20 18 20 Rate Blood Pressure 93/66 93/66 105/65 O2 Sat by Pulse Oximetry (%) 08/02/19 08/02/19 08/02/19 14:30 15:00 15:15 Temperature Pulse Rate 68 35 L 48 L Respiratory 20 Rate Blood Pressure 94/47 L 54/30 L 77/48 L O2 Sat by Pulse Oximetry (%) 08/02/19 08/02/19 08/02/19 15:20 15:55 16:05 Temperature Pulse Rate 69 61 61 Respiratory 22 H 24 H 22 H Rate Blood Pressure 107/55 L 98/66 102/64 O2 Sat by Pulse Oximetry (%) 08/02/19 08/02/19 08/02/19 17:50 21:00 22:00 Temperature 98.9 F 98.8 F Pulse Rate 139 H 128 H Respiratory 18 18 18 Rate Blood Pressure 104/57 L 91/67 O2 Sat by Pulse 100 Oximetry (%) 08/02/19 08/03/19 08/03/19 23:00 00:45 05:28 Temperature 98.2 F Pulse Rate 142 H 135 H 130 H Respiratory 18 18 18 Rate Blood Pressure 88/61 L 99/66 98/56 L O2 Sat by Pulse Oximetry (%) 08/03/19 08/03/19 08/03/19 08:25 08:40 08:52 Temperature 99.8 F H Pulse Rate 131 H 126 H Respiratory 18 18 Rate Blood Pressure 96/71 92/62 O2 Sat by Pulse 98 Oximetry (%) Current Medications Generic Name Dose Route Start Last Admin Trade Name Freq PRN Reason Stop Dose Admin Acetaminophen 650 mg 07/26/19 00:41 08/01/19 18:27 Tylenol Suppository - [place] 650 mg Q6H PRN Administration FEVER Allopurinol 100 mg 07/26/19 10:00 08/03/19 09:13 Zyloprim - PEG 100 mg DAILY RONALD Administration Amino Acids 30 ml 07/26/19 17:30 08/03/19 08:25 Prosource No Carb Liquid Pkt PO 30 ml BID@0800,1730 RONALD Administration Collagenase 1 applic 07/26/19 10:00 08/03/19 09:13 Santyl - TP 1 applic DAILY RONALD Administration Protocol Epoetin Shawn 10,000 unit/ 12,000 unit 08/02/19 12:00 08/02/19 13:00 Epoetin Shawn 2,000 unit IVPUSH 12,000 unit ONCE RONALD Administration Metoprolol Tartrate 25 mg 08/02/19 10:00 08/03/19 09:13 Lopressor - GT 25 mg BID RONALD Administration Povidone Iodine 1 applic 08/02/19 12:06 Betadine 10% Solution - TP DAILY [facility] Vancomycin HCl 125 mg 08/01/19 18:00 08/03/19 05:32 Vancomycin Oral Solution PO 125 mg Q6HPO RONALD Administration Laboratory Results - last 24 hr 08/02/19 08/02/19 06:35 06:35 WBC 12.5 H RBC 3.92 L Hgb 10.2 L Hct 32.4 L MCV 82.6 MCH 26.1 MCHC 31.6 L RDW 18.4 H Plt Count 257 D MPV 7.9 Sodium 146 H Potassium 3.5 Chloride 109 H Carbon Dioxide 27 Anion Gap 10 BUN 59.6 H Creatinine 5.4 H Est GFR (CKD-EPI)AfAm 12.55 Est GFR (CKD-EPI)NonAf 10.83 Random Glucose 132 H Calcium 10.0 Iron 43 L TIBC 98 L Iron Saturation 43 H Unsaturated IBC 55 L Ferritin 1700.4 H Microbiology 07/25/19 17:46 Blood - Peripheral Venous Blood Culture - Final NO GROWTH AFTER 5 DAYS INCUBATION 07/25/19 17:46 Blood - Peripheral Venous Blood Culture - Final NO GROWTH AFTER 5 DAYS INCUBATION 07/26/19 15:00 Peg Site Gram Stain - Final 07/26/19 15:00 Peg Site Wound Culture - Final Pseudomonas Aeruginosa Yeast Like Organism Enterococcus Faecalis 07/26/19 05:30 Sputum - Expectorated Gram Stain - Final 07/26/19 05:30 Sputum - Expectorated Sputum Culture - Final Pseudomonas Aeruginosa 07/25/19 20:26 Urine - Urine Clean Catch Urine Culture - Final NO GROWTH OBTAINED S1 S2 RRR Lungs decreased Abd- soft, NT, Peg+ No edema PLAN off restraints iv antibiotics __>dc increase feeds, free water he has diarrhea, may need more fluids-- BP is low LFT trending down -- lipitor dc s/p prbc ct abd noted-->colitis continue with meds cultures noted cdiff positive-- on GT vanco Problem List - Problems (1) CHF (congestive heart failure) Code(s): I50.9 - HEART FAILURE, UNSPECIFIED (2) COPD (chronic obstructive pulmonary disease) Code(s): J44.9 - CHRONIC OBSTRUCTIVE PULMONARY DISEASE, UNSPECIFIED (3) Elevated liver enzymes Code(s): R74.8 - ABNORMAL LEVELS OF OTHER SERUM ENZYMES (4) Sepsis Code(s): A41.9 - SEPSIS, UNSPECIFIED ORGANISM Qualifiers: Sepsis type: sepsis due to unspecified organism Sepsis acute organ dysfunction status: unspecified Qualified Code(s): A41.9 - Sepsis, unspecified organism (5) Acute metabolic encephalopathy Code(s): G93.41 - METABOLIC ENCEPHALOPATHY (6) ESRD (end stage renal disease) on dialysis Code(s): N18.6 - END STAGE RENAL DISEASE; Z99.2 - DEPENDENCE ON RENAL DIALYSIS (7) Elevated LFTs Code(s): R94.5 - ABNORMAL RESULTS OF LIVER FUNCTION STUDIES
--- NOTE | 2019-08-03 12:37 | PN ---
Progress Note, Physician History of Present Illness: Pt seen and examined at bedside. he is awake but confused. He has diarrhea. - Current Medication List Current Medications: Active Medications Acetaminophen (Tylenol Suppository -) 650 mg ID Q6H PRN PRN Reason: FEVER Last Admin: 08/01/19 18:27 Dose: 650 mg Allopurinol (Zyloprim -) 100 mg PEG DAILY [facility] Last Admin: 08/03/19 09:13 Dose: 100 mg Amino Acids (Prosource No Carb Liquid Pkt) 30 ml PO BID@0800,1730 [facility] Last Admin: 08/03/19 08:25 Dose: 30 ml Collagenase (Santyl -) 1 applic TP DAILY [facility]; Protocol Last Admin: 08/03/19 09:13 Dose: 1 applic Epoetin Shawn 10,000 unit/ (Epoetin Shawn 2,000 unit) 12,000 unit IVPUSH ONCE [facility] Last Admin: 08/02/19 13:00 Dose: 12,000 unit Sodium Chloride (1/2 Normal Saline) 1,000 mls @ 75 mls/hr IV ASDIR [facility] Stop: 08/03/19 20:44 Metoprolol Tartrate (Lopressor -) 25 mg GT BID [facility] Last Admin: 08/03/19 09:13 Dose: 25 mg Povidone Iodine (Betadine 10% Solution -) 1 applic TP DAILY [facility] Vancomycin HCl (Vancomycin Oral Solution) 125 mg PO Q6HPO [facility] Last Admin: 08/03/19 05:32 Dose: 125 mg - Objective Vital Signs: Vital Signs Temperature 99.8 F H 08/03/19 08:25 Pulse Rate 126 H 08/03/19 08:40 Respiratory Rate 18 08/03/19 08:40 Blood Pressure 92/62 08/03/19 08:40 O2 Sat by Pulse Oximetry (%) 98 08/03/19 08:52 Constitutional: Yes: Calm Eyes: Yes: Conjunctiva Clear HENT: Yes: Atraumatic Cardiovascular: Yes: S1, S2 Respiratory: Yes: CTA Bilaterally Gastrointestinal: Yes: Soft, Other (peg) Genitourinary: Yes: Incontinence Musculoskeletal: Yes: Muscle Weakness Edema: No Integumentary: Yes: WNL Neurological: Yes: Confusion Labs: CBC, BMP 08/02/19 06:35 08/02/19 06:35 INR, PTT INR Cancelled 07/25/19 17:46 Problem List - Problems (1) CHF (congestive heart failure) Code(s): I50.9 - HEART FAILURE, UNSPECIFIED (2) COPD (chronic obstructive pulmonary disease) Code(s): J44.9 - CHRONIC OBSTRUCTIVE PULMONARY DISEASE, UNSPECIFIED (3) ESRD (end stage renal disease) on dialysis Code(s): N18.6 - END STAGE RENAL DISEASE; Z99.2 - DEPENDENCE ON RENAL DIALYSIS Assessment/Plan Current Medications Generic Name Dose Route Start Last Admin Trade Name Freq PRN Reason Stop Dose Admin Acetaminophen 650 mg 07/26/19 00:41 08/01/19 18:27 Tylenol Suppository - [place] 650 mg Q6H PRN Administration FEVER Allopurinol 100 mg 07/26/19 10:00 08/03/19 09:13 Zyloprim - PEG 100 mg DAILY RONALD Administration Amino Acids 30 ml 07/26/19 17:30 08/03/19 08:25 Prosource No Carb Liquid Pkt PO 30 ml BID@0800,1730 RONALD Administration Collagenase 1 applic 07/26/19 10:00 08/03/19 09:13 Santyl - TP 1 applic DAILY [facility]ONALD Administration Protocol Epoetin Shawn 10,000 unit/ 12,000 unit 08/02/19 12:00 08/02/19 13:00 Epoetin Shawn 2,000 unit IVPUSH 12,000 unit ONCE RONALD Administration Sodium Chloride 1,000 mls @ 75 mls/hr 08/03/19 12:45 1/2 Normal Saline IV 08/03/19 20:44 ASDIR RONALD Metoprolol Tartrate 25 mg 08/02/19 10:00 08/03/19 09:13 Lopressor - GT 25 mg BID RONALD Administration Povidone Iodine 1 applic 08/02/19 12:06 Betadine 10% Solution - TP DAILY RONALD Vancomycin HCl 125 mg 08/01/19 18:00 08/03/19 05:32 Vancomycin Oral Solution PO 125 mg Q6HPO RONALD Administration Impression 1. ESRD 2. sepsis 3. gout 4. HTN 5. CHF 6. DM 7. hx bipolar 8. MOLLY 9. non compliance 10. c. diff 11. lactic acidosis 12. new onset a-fib 13. hypokalemia Plan - will give fluids 1/2 ns at 75 for 8 hours - increase tube feeds - spoke to vascular to evaluate permacath for low flow - cont epogen - pt tolerating feeds - monitor bp - abx per primary team
[2019-08-03] MEDS ORDERED: SODIUM CHLORIDE 0.45% 1,000 ML IV SCH (12:45)
[2019-08-03] MEDS: EPOETIN ALFA 10,000 UNIT, EPOETIN ALFA 2,000 UNIT IVPUSH SCH (13:00)
[2019-08-03] MEDS: POVIDONE-IODINE 10% SOLN 118 ML BOTTLE TP SCH (15:42)
[2019-08-03] MEDS: ACETAMINOPHEN 650 MG SUPP.RECT PR PRN (18:05)
[2019-08-04] MEDS: VANCOMYCIN 250 MG/5 ML ORAL SOLUTION PO SCH ×4 (00:50→17:02)
[2019-08-04] MEDS: AMINO ACIDS/PROTEIN HYDROLYS 30 ML LIQUID.PKT PO SCH ×2 (08:01→16:31)
[2019-08-04] MEDS: METOPROLOL TARTRATE 25 MG TABLET (FP) GT SCH ×2 (09:44→21:37)
[2019-08-04] MEDS: ALLOPURINOL 100 MG TABLET (FP) PEG SCH (09:44)
[2019-08-04] MEDS: POVIDONE-IODINE 10% SOLN 118 ML BOTTLE TP SCH (09:44)
[2019-08-04] MEDS ORDERED: ALTEPLASE 2 MG VIAL CVP ONE (10:00)
[2019-08-04] MEDS ORDERED: PT OWN MED DRAWER 7, Y5N ONE (11:04)
[2019-08-04] MEDS: COLLAGENASE CLOSTRIDIUM HIST. 30 GRAMS TUBE TP SCH (11:29)
[2019-08-04] MEDS ORDERED: EPOETIN ALFA 2,000 UNIT/1 ML VIAL IVPUSH ONE (12:38)
--- NOTE | 2019-08-04 12:56 | PN ---
Progress Note (short form) - Note Progress Note: pt seen/ examined chart reviewed awake. comfortable remains tachy Vital Signs Temp 98.7 F 08/04/19 08:02 Pulse 118 H 08/04/19 08:02 Resp 18 08/04/19 08:02 BP 99/66 08/04/19 08:02 Pulse Ox 98 08/03/19 21:00 Intake & Output 08/03/19 08/04/19 08/04/19 23:59 11:59 23:59 Intake Total 960 Balance 960 Intake: Tube Feeding 600 Tube Irrigant 360 Other: Voiding Method Incontinent Incontinent # Unmeasured Voids Void 1 2 Bowel Movement No No Active Medications Acetaminophen (Tylenol Suppository -) 650 mg [place] Q6H PRN PRN Reason: FEVER Last Admin: 08/03/19 18:05 Dose: 650 mg Allopurinol (Zyloprim -) 100 mg PEG DAILY [facility] Last Admin: 08/04/19 09:44 Dose: 100 mg Amino Acids (Prosource No Carb Liquid Pkt) 30 ml PO BID@0800,1730 [facility] Last Admin: 08/04/19 08:01 Dose: 30 ml Collagenase (Santyl -) 1 applic TP DAILY [facility]; Protocol Last Admin: 08/04/19 11:29 Dose: 1 applic Epoetin Shawn 10,000 unit/ (Epoetin Shawn 2,000 unit) 12,000 unit IVPUSH ONCE [facility]D Last Admin: 08/03/19 13:00 Dose: Not Given Epoetin Shawn (Epogen -) 12,000 unit IVPUSH ONCE ONE Stop: 08/04/19 12:39 Sodium Chloride (Normal Saline -) 250 mls @ 3,000 mls/hr IV PRN PRN PRN Reason: Hypotension during Dialysis Stop: 08/04/19 12:38 Metoprolol Tartrate (Lopressor -) 25 mg GT BID [facility] Last Admin: 08/04/19 09:44 Dose: 25 mg Povidone Iodine (Betadine 10% Solution -) 1 applic TP DAILY [facility] Last Admin: 08/04/19 09:44 Dose: 1 applic Vancomycin HCl (Vancomycin Oral Solution) 125 mg PO Q6HPO [facility] Last Admin: 08/04/19 11:29 Dose: 125 mg CBC, BMP 08/02/19 06:35 08/02/19 06:35 Physical awake S1 S2 RRR Lungs decreased Abd- soft, NT, Peg+ No edema PLAN off restraints iv antibiotics __>dc No diarrhea today LFT -- monitor s/p prbc ct abd noted-->colitis continue with meds cultures noted cdiff positive-- on GT vanco Dialysis later today will follow d/w RN also Problem List - Problems (1) CHF (congestive heart failure) Code(s): I50.9 - HEART FAILURE, UNSPECIFIED (2) COPD (chronic obstructive pulmonary disease) Code(s): J44.9 - CHRONIC OBSTRUCTIVE PULMONARY DISEASE, UNSPECIFIED (3) Elevated liver enzymes Code(s): R74.8 - ABNORMAL LEVELS OF OTHER SERUM ENZYMES (4) Sepsis Code(s): A41.9 - SEPSIS, UNSPECIFIED ORGANISM Qualifiers: Sepsis type: sepsis due to unspecified organism Sepsis acute organ dysfunction status: unspecified Qualified Code(s): A41.9 - Sepsis, unspecified organism (5) Acute metabolic encephalopathy Code(s): G93.41 - METABOLIC ENCEPHALOPATHY (6) ESRD (end stage renal disease) on dialysis Code(s): N18.6 - END STAGE RENAL DISEASE; Z99.2 - DEPENDENCE ON RENAL DIALYSIS (7) Elevated LFTs Code(s): R94.5 - ABNORMAL RESULTS OF LIVER FUNCTION STUDIES
--- NOTE | 2019-08-04 15:09 | PN ---
Progress Note, Physician History of Present Illness: Pt seen and examined at bedside. He is awake and appears comfortable. - Current Medication List Current Medications: Active Medications Acetaminophen (Tylenol Suppository -) 650 mg [place] Q6H PRN PRN Reason: FEVER Last Admin: 08/03/19 18:05 Dose: 650 mg Allopurinol (Zyloprim -) 100 mg PEG DAILY [facility] Last Admin: 08/04/19 09:44 Dose: 100 mg Amino Acids (Prosource No Carb Liquid Pkt) 30 ml PO BID@0800,1730 [facility] Last Admin: 08/04/19 08:01 Dose: 30 ml Collagenase (Santyl -) 1 applic TP DAILY [facility]; Protocol Last Admin: 08/04/19 11:29 Dose: 1 applic Epoetin Shawn 10,000 unit/ (Epoetin Shawn 2,000 unit) 12,000 unit IVPUSH ONCE [facility] Last Admin: 08/03/19 13:00 Dose: Not Given Epoetin Shawn (Epogen -) 12,000 unit IVPUSH ONCE ONE Stop: 08/04/19 12:39 Sodium Chloride (Normal Saline -) 250 mls @ 3,000 mls/hr IV PRN PRN PRN Reason: Hypotension during Dialysis Stop: 08/04/19 12:38 Metoprolol Tartrate (Lopressor -) 25 mg GT BID [facility] Last Admin: 08/04/19 09:44 Dose: 25 mg Povidone Iodine (Betadine 10% Solution -) 1 applic TP DAILY [facility] Last Admin: 08/04/19 09:44 Dose: 1 applic Vancomycin HCl (Vancomycin Oral Solution) 125 mg PO Q6HPO [facility] Last Admin: 08/04/19 11:29 Dose: 125 mg - Objective Vital Signs: Vital Signs Temperature 98.7 F 08/04/19 08:02 Pulse Rate 118 H 08/04/19 08:02 Respiratory Rate 18 08/04/19 08:02 Blood Pressure 99/66 08/04/19 08:02 O2 Sat by Pulse Oximetry (%) 98 08/03/19 21:00 Constitutional: Yes: Calm Eyes: Yes: Conjunctiva Clear HENT: Yes: Atraumatic Cardiovascular: Yes: S1, S2 Respiratory: Yes: CTA Bilaterally Gastrointestinal: Yes: Soft Genitourinary: Yes: Incontinence Edema: No Integumentary: Yes: WNL Neurological: Yes: Confusion Labs: CBC, BMP 08/02/19 06:35 08/02/19 06:35 INR, PTT INR Cancelled 07/25/19 17:46 Problem List - Problems (1) CHF (congestive heart failure) Code(s): I50.9 - HEART FAILURE, UNSPECIFIED (2) COPD (chronic obstructive pulmonary disease) Code(s): J44.9 - CHRONIC OBSTRUCTIVE PULMONARY DISEASE, UNSPECIFIED (3) ESRD (end stage renal disease) on dialysis Code(s): N18.6 - END STAGE RENAL DISEASE; Z99.2 - DEPENDENCE ON RENAL DIALYSIS Assessment/Plan Current Medications Generic Name Dose Route Start Last Admin Trade Name Freq PRN Reason Stop Dose Admin Acetaminophen 650 mg 07/26/19 00:41 08/03/19 18:05 Tylenol Suppository - [place] 650 mg Q6H PRN Administration FEVER Allopurinol 100 mg 07/26/19 10:00 08/04/19 09:44 Zyloprim - PEG 100 mg DAILY RONALD Administration Amino Acids 30 ml 07/26/19 17:30 08/04/19 08:01 Prosource No Carb Liquid Pkt PO 30 ml BID@0800,1730 RONALD Administration Collagenase 1 applic 07/26/19 10:00 08/04/19 11:29 Santyl - TP 1 applic DAILY RONALD Administration Protocol Epoetin Shawn 10,000 unit/ 12,000 unit 08/02/19 12:00 08/03/19 13:00 Epoetin Shawn 2,000 unit IVPUSH Not Given ONCE RONALD Epoetin Shawn 12,000 unit 08/04/19 12:38 Epogen - IVPUSH 08/04/19 12:39 ONCE ONE Sodium Chloride 250 mls @ 3,000 mls/hr 08/03/19 12:38 Normal Saline - IV 08/04/19 12:38 PRN PRN Hypotension during Dialysis Metoprolol Tartrate 25 mg 08/02/19 10:00 08/04/19 09:44 Lopressor - GT 25 mg BID RONALD Administration Povidone Iodine 1 applic 08/02/19 12:06 08/04/19 09:44 Betadine 10% Solution - TP 1 applic DAILY RONALD Administration Vancomycin HCl 125 mg 08/01/19 18:00 08/04/19 11:29 Vancomycin Oral Solution PO 125 mg Q6HPO RONALD Administration Impression 1. ESRD 2. sepsis 3. gout 4. HTN 5. CHF 6. DM 7. hx bipolar 8. MOLLY 9. non compliance 10. c. diff 11. lactic acidosis 12. new onset a-fib 13. hypokalemia Plan - check bmp - if potassium ok will hold off HD today - cathflow to catheter - vascular to evaluate catheter - cont epogen - pt tolerating feeds - monitor bp - abx per primary team
[2019-08-04 17:33] LABS: BLOOD UREA NITROGEN 68.5 mg/dL (7-18); CALCIUM 9.7 mg/dL (8.5-10.1); CREATININE 5.2 mg/dL (0.55-1.3); POTASSIUM 3.4 mmol/L (3.5-5.1)
[2019-08-05] MEDS: VANCOMYCIN 250 MG/5 ML ORAL SOLUTION PO SCH ×4 (00:34→18:02)
[2019-08-05] MEDS ORDERED: EPOETIN ALFA 10,000 UNIT, EPOETIN ALFA 2,000 UNIT IVPUSH ONE (07:00)
[2019-08-05] MEDS ORDERED: SODIUM CHLORIDE 250 ML IV PRN (07:31)
[2019-08-05 09:10] LABS: BLOOD UREA NITROGEN 81.4 mg/dL (7-18); CALCIUM 9.7 mg/dL (8.5-10.1); CREATININE 5.9 mg/dL (0.55-1.3)
[2019-08-05] MEDS ORDERED: PT OWN MED DRAWER 7, Y5N ONE ×3 (10:40→17:57)
[2019-08-05] MEDS: POVIDONE-IODINE 10% SOLN 118 ML BOTTLE TP SCH (10:53)
[2019-08-05] MEDS: AMINO ACIDS/PROTEIN HYDROLYS 30 ML LIQUID.PKT PO SCH ×2 (10:53→18:02)
[2019-08-05] MEDS: COLLAGENASE CLOSTRIDIUM HIST. 30 GRAMS TUBE TP SCH (10:54)
[2019-08-05] MEDS: ALLOPURINOL 100 MG TABLET (FP) PEG SCH (10:54)
[2019-08-05] MEDS: METOPROLOL TARTRATE 25 MG TABLET (FP) GT SCH ×2 (10:54→22:33)
--- NOTE | 2019-08-05 14:01 | PN ---
Progress Note (short form) - Note Progress Note: Pt seen/ examined awake remains tachy Vital Signs Temp 98.2 F 08/05/19 11:02 Pulse 120 H 08/05/19 11:02 Resp 20 08/05/19 11:02 BP 113/71 08/05/19 11:02 Pulse Ox 96 08/05/19 10:00 Intake & Output 08/04/19 08/05/19 08/05/19 23:59 11:59 23:59 Intake Total 1340 1060 Output Total 551 Balance 1340 509 Intake: IV 500 Normal Saline - 250 ml @ 500 3000 mls/hr IV PRN PRN Rx #:[id number] Oral 0 Tube Feeding 800 350 Tube Irrigant 540 210 Output: Fluid Removed, 551 Hemodialysis Other: Voiding Method Incontinent Incontinent # Unmeasured Voids Void 1 2 Bowel Movement Yes Yes # Bowel Movements 1 Active Medications Acetaminophen (Tylenol Suppository -) 650 mg NE Q6H PRN PRN Reason: FEVER Last Admin: 08/03/19 18:05 Dose: 650 mg Allopurinol (Zyloprim -) 100 mg PEG DAILY [facility] Last Admin: 08/05/19 10:54 Dose: 100 mg Amino Acids (Prosource No Carb Liquid Pkt) 30 ml PO BID@0800,1730 [facility] Last Admin: 08/05/19 10:53 Dose: 30 ml Collagenase (Santyl -) 1 applic TP DAILY [facility]; Protocol Last Admin: 08/05/19 10:54 Dose: 1 applic Sodium Chloride (Normal Saline -) 250 mls @ 3,000 mls/hr IV PRN PRN PRN Reason: Hypotension during Dialysis Stop: 08/06/19 07:30 Last Admin: 08/05/19 08:00 Dose: 3,000 mls/hr Metoprolol Tartrate (Lopressor -) 25 mg GT BID [facility] Last Admin: 08/05/19 10:54 Dose: 25 mg Povidone Iodine (Betadine 10% Solution -) 1 applic TP DAILY [facility] Last Admin: 08/05/19 10:53 Dose: 1 applic Vancomycin HCl (Vancomycin Oral Solution) 125 mg PO Q6HPO [facility] Last Admin: 08/05/19 05:56 Dose: 125 mg CBC, BMP 08/02/19 06:35 08/05/19 07:00 Physical awake/ weak/ speaks little/ chronic ill appearance S1 S2 RRR Lungs decreased Abd- soft, NT, Peg+ No edema PLAN off restraints iv antibiotics __>dc No diarrhea today LFT -- monitor s/p prbc ct abd noted-->colitis continue with meds cultures noted cdiff positive-- on GT vanco still tachy- monitor will follow d/w RN also Problem List - Problems (1) CHF (congestive heart failure) Code(s): I50.9 - HEART FAILURE, UNSPECIFIED (2) COPD (chronic obstructive pulmonary disease) Code(s): J44.9 - CHRONIC OBSTRUCTIVE PULMONARY DISEASE, UNSPECIFIED (3) Elevated liver enzymes Code(s): R74.8 - ABNORMAL LEVELS OF OTHER SERUM ENZYMES (4) Sepsis Code(s): A41.9 - SEPSIS, UNSPECIFIED ORGANISM Qualifiers: Sepsis type: sepsis due to unspecified organism Sepsis acute organ dysfunction status: unspecified Qualified Code(s): A41.9 - Sepsis, unspecified organism (5) Acute metabolic encephalopathy Code(s): G93.41 - METABOLIC ENCEPHALOPATHY (6) ESRD (end stage renal disease) on dialysis Code(s): N18.6 - END STAGE RENAL DISEASE; Z99.2 - DEPENDENCE ON RENAL DIALYSIS (7) Elevated LFTs Code(s): R94.5 - ABNORMAL RESULTS OF LIVER FUNCTION STUDIES
[2019-08-05] MEDS ORDERED: POTASSIUM CHLORIDE ORAL LIQUID 20 MEQ/15 ML PEG ONE (15:23)
--- NOTE | 2019-08-05 15:26 | PN ---
Progress Note, Physician History of Present Illness: Pt seen and examined at bedside. He is awake and appears comfortable. He tolerated HD today. - Current Medication List Current Medications: Active Medications Acetaminophen (Tylenol Suppository -) 650 mg [place] Q6H PRN PRN Reason: FEVER Last Admin: 08/03/19 18:05 Dose: 650 mg Allopurinol (Zyloprim -) 100 mg PEG DAILY [facility] Last Admin: 08/05/19 10:54 Dose: 100 mg Amino Acids (Prosource No Carb Liquid Pkt) 30 ml PO BID@0800,1730 [facility] Last Admin: 08/05/19 10:53 Dose: 30 ml Collagenase (Santyl -) 1 applic TP DAILY [facility]; Protocol Last Admin: 08/05/19 10:54 Dose: 1 applic Sodium Chloride (Normal Saline -) 250 mls @ 3,000 mls/hr IV PRN PRN PRN Reason: Hypotension during Dialysis Stop: 08/06/19 07:30 Last Admin: 08/05/19 08:00 Dose: 3,000 mls/hr Metoprolol Tartrate (Lopressor -) 25 mg GT BID [facility] Last Admin: 08/05/19 10:54 Dose: 25 mg Potassium Chloride (Potassium Chloride Oral Liquid) 20 meq PEG ONCE ONE Stop: 08/05/19 15:24 Povidone Iodine (Betadine 10% Solution -) 1 applic TP DAILY [facility] Last Admin: 08/05/19 10:53 Dose: 1 applic Vancomycin HCl (Vancomycin Oral Solution) 125 mg PO Q6HPO [facility] Last Admin: 08/05/19 05:56 Dose: 125 mg - Objective Vital Signs: Vital Signs Temperature 98.4 F 08/05/19 14:09 Pulse Rate 125 H 08/05/19 14:09 Respiratory Rate 18 08/05/19 14:09 Blood Pressure 117/67 08/05/19 14:09 O2 Sat by Pulse Oximetry (%) 96 08/05/19 10:00 Constitutional: Yes: Calm Eyes: Yes: Conjunctiva Clear HENT: Yes: Atraumatic Neck: Yes: Supple Cardiovascular: Yes: S1, S2 Respiratory: Yes: CTA Bilaterally Gastrointestinal: Yes: Normal Bowel Sounds, Soft, Other (peg) Genitourinary: Yes: WNL, Incontinence Musculoskeletal: Yes: Muscle Weakness Edema: No Neurological: Yes: Confusion Labs: CBC, BMP 08/02/19 06:35 08/05/19 07:00 INR, PTT INR Cancelled 07/25/19 17:46 Problem List - Problems (1) CHF (congestive heart failure) Code(s): I50.9 - HEART FAILURE, UNSPECIFIED (2) COPD (chronic obstructive pulmonary disease) Code(s): J44.9 - CHRONIC OBSTRUCTIVE PULMONARY DISEASE, UNSPECIFIED (3) ESRD (end stage renal disease) on dialysis Code(s): N18.6 - END STAGE RENAL DISEASE; Z99.2 - DEPENDENCE ON RENAL DIALYSIS Assessment/Plan Current Medications Generic Name Dose Route Start Last Admin Trade Name Freq PRN Reason Stop Dose Admin Acetaminophen 650 mg 07/26/19 00:41 08/03/19 18:05 Tylenol Suppository - [place] 650 mg Q6H PRN Administration FEVER Allopurinol 100 mg 07/26/19 10:00 08/05/19 10:54 Zyloprim - PEG 100 mg DAILY [facility] Administration Amino Acids 30 ml 07/26/19 17:30 08/05/19 10:53 Prosource No Carb Liquid Pkt PO 30 ml BID@0800,1730 [facility] Administration Collagenase 1 applic 07/26/19 10:00 08/05/19 10:54 Santyl - TP 1 applic DAILY [facility] Administration Protocol Sodium Chloride 250 mls @ 3,000 mls/hr 08/05/19 07:31 08/05/19 08:00 Normal Saline - IV 08/06/19 07:30 3,000 mls/hr PRN PRN Administration Hypotension during Dialysis Metoprolol Tartrate 25 mg 08/02/19 10:00 08/05/19 10:54 Lopressor - GT 25 mg BID [facility] Administration Potassium Chloride 20 meq 08/05/19 15:23 Potassium Chloride Oral Liquid PEG 08/05/19 15:24 ONCE ONE Povidone Iodine 1 applic 08/02/19 12:06 08/05/19 10:53 Betadine 10% Solution - TP 1 applic DAILY [facility] Administration Vancomycin HCl 125 mg 08/01/19 18:00 08/05/19 05:56 Vancomycin Oral Solution PO 125 mg Q6HPO [facility] Administration Impression 1. ESRD 2. sepsis 3. gout 4. HTN 5. CHF 6. DM 7. hx bipolar 8. MOLLY 9. non compliance 10. c. diff 11. lactic acidosis 12. new onset a-fib 13. hypokalemia Plan - HD today - cnt feeds - pt was able to dialyze with catheter - cont epogen - pt tolerating feeds - monitor bp - abx per primary team
[2019-08-05] MEDS: ACETAMINOPHEN 650 MG SUPP.RECT PR PRN (22:14)
[2019-08-06] MEDS: VANCOMYCIN 250 MG/5 ML ORAL SOLUTION PO SCH ×4 (01:05→17:42)
[2019-08-06] MEDS: AMINO ACIDS/PROTEIN HYDROLYS 30 ML LIQUID.PKT PO SCH ×2 (09:49→17:42)
[2019-08-06] MEDS: COLLAGENASE CLOSTRIDIUM HIST. 30 GRAMS TUBE TP SCH (10:50)
[2019-08-06] MEDS: POVIDONE-IODINE 10% SOLN 118 ML BOTTLE TP SCH (10:50)
[2019-08-06] MEDS: METOPROLOL TARTRATE 25 MG TABLET (FP) GT SCH ×2 (10:50→22:14)
[2019-08-06] MEDS: ALLOPURINOL 100 MG TABLET (FP) PEG SCH (10:50)
--- NOTE | 2019-08-06 13:24 | PN ---
Progress Note (short form) - Note Progress Note: Pt seen/ examined weak low grade temp last night chronic ill appearance Vital Signs Temp 97.2 F L 08/06/19 06:00 Pulse 116 H 08/06/19 06:00 Resp 18 08/06/19 09:00 BP 108/72 08/06/19 06:00 Pulse Ox 99 08/06/19 09:00 Intake & Output 08/05/19 08/06/19 08/06/19 23:59 11:59 23:59 Intake Total 0 Balance 0 Intake: Oral 0 Other: Voiding Method Incontinent Incontinent # Unmeasured Voids Void 2 1 Bowel Movement Yes Yes # Bowel Movements 1 1 Active Medications Acetaminophen (Tylenol Suppository -) 650 mg [place] Q6H PRN PRN Reason: FEVER Last Admin: 08/05/19 22:14 Dose: 650 mg Allopurinol (Zyloprim -) 100 mg PEG DAILY [facility] Last Admin: 08/06/19 10:50 Dose: 100 mg Amino Acids (Prosource No Carb Liquid Pkt) 30 ml PO BID@0800,1730 [facility] Last Admin: 08/06/19 09:49 Dose: 30 ml Collagenase (Santyl -) 1 applic TP DAILY [facility]; Protocol Last Admin: 08/06/19 10:50 Dose: 1 applic Metoprolol Tartrate (Lopressor -) 25 mg GT BID [facility] Last Admin: 08/06/19 10:50 Dose: 25 mg Povidone Iodine (Betadine 10% Solution -) 1 applic TP DAILY [facility] Last Admin: 08/06/19 10:50 Dose: 1 applic Vancomycin HCl (Vancomycin Oral Solution) 125 mg PO Q6HPO [facility] Last Admin: 08/06/19 05:53 Dose: 125 mg CBC, BMP 08/02/19 06:35 08/05/19 07:00 Physical awake/ weak/ speaks little/ chronic ill appearance S1 S2 RRR Lungs decreased Abd- soft, NT, Peg+ No edema PLAN Low grade fever off restraints iv antibiotics __>dc No diarrhea today LFT -- monitor s/p prbc ct abd noted-->colitis continue with meds cultures noted cdiff positive-- on GT vanco still tachy- monitor will follow d/w RN also Cbc blood culture x2
--- NOTE | 2019-08-06 15:15 | PN ---
Progress Note, Physician History of Present Illness: Pt seen and examined at bedside. He appears comfortable. He still has diarrhea. - Current Medication List Current Medications: Active Medications Acetaminophen (Tylenol Suppository -) 650 mg [place] Q6H PRN PRN Reason: FEVER Last Admin: 08/05/19 22:14 Dose: 650 mg Allopurinol (Zyloprim -) 100 mg PEG DAILY [facility] Last Admin: 08/06/19 10:50 Dose: 100 mg Amino Acids (Prosource No Carb Liquid Pkt) 30 ml PO BID@0800,1730 [facility] Last Admin: 08/06/19 09:49 Dose: 30 ml Collagenase (Santyl -) 1 applic TP DAILY [facility]; Protocol Last Admin: 08/06/19 10:50 Dose: 1 applic Metoprolol Tartrate (Lopressor -) 25 mg GT BID [facility] Last Admin: 08/06/19 10:50 Dose: 25 mg Povidone Iodine (Betadine 10% Solution -) 1 applic TP DAILY [facility] Last Admin: 08/06/19 10:50 Dose: 1 applic Vancomycin HCl (Vancomycin Oral Solution) 125 mg PO Q6HPO [facility] Last Admin: 08/06/19 05:53 Dose: 125 mg - Objective Vital Signs: Vital Signs Temperature 97.2 F L 08/06/19 06:00 Pulse Rate 116 H 08/06/19 06:00 Respiratory Rate 18 08/06/19 09:00 Blood Pressure 108/72 08/06/19 06:00 O2 Sat by Pulse Oximetry (%) 99 08/06/19 09:00 Constitutional: Yes: Calm Eyes: Yes: Conjunctiva Clear HENT: Yes: Atraumatic Neck: Yes: Supple Cardiovascular: Yes: S1, S2 Respiratory: Yes: CTA Bilaterally Gastrointestinal: Yes: Normal Bowel Sounds, Soft Genitourinary: Yes: Incontinence Musculoskeletal: Yes: Muscle Weakness Edema: No Neurological: Yes: Confusion Labs: CBC, BMP 08/02/19 06:35 08/05/19 07:00 INR, PTT INR Cancelled 07/25/19 17:46 Problem List - Problems (1) CHF (congestive heart failure) Code(s): I50.9 - HEART FAILURE, UNSPECIFIED (2) COPD (chronic obstructive pulmonary disease) Code(s): J44.9 - CHRONIC OBSTRUCTIVE PULMONARY DISEASE, UNSPECIFIED (3) ESRD (end stage renal disease) on dialysis Code(s): N18.6 - END STAGE RENAL DISEASE; Z99.2 - DEPENDENCE ON RENAL DIALYSIS Assessment/Plan Current Medications Generic Name Dose Route Start Last Admin Trade Name Amilcarq PRN Reason Stop Dose Admin Acetaminophen 650 mg 07/26/19 00:41 08/05/19 22:14 Tylenol Suppository - [place] 650 mg Q6H PRN Administration FEVER Allopurinol 100 mg 07/26/19 10:00 08/06/19 10:50 Zyloprim - PEG 100 mg DAILY [facility] Administration Amino Acids 30 ml 07/26/19 17:30 08/06/19 09:49 Prosource No Carb Liquid Pkt PO 30 ml BID@0800,1730 [facility] Administration Collagenase 1 applic 07/26/19 10:00 08/06/19 10:50 Santyl - TP 1 applic DAILY [facility] Administration Protocol Metoprolol Tartrate 25 mg 08/02/19 10:00 08/06/19 10:50 Lopressor - GT 25 mg BID [facility] Administration Povidone Iodine 1 applic 08/02/19 12:06 08/06/19 10:50 Betadine 10% Solution - TP 1 applic DAILY [facility] Administration Vancomycin HCl 125 mg 08/01/19 18:00 08/06/19 05:53 Vancomycin Oral Solution PO 125 mg Q6HPO [facility] Administration Impression 1. ESRD 2. sepsis 3. gout 4. HTN 5. CHF 6. DM 7. hx bipolar 8. MOLLY 9. non compliance 10. c. diff 11. lactic acidosis 12. new onset a-fib 13. hypokalemia Plan - pt tolerated HD yesterday - cont feeds - cont epogen - pt tolerating feeds - monitor bp - abx per primary team
[2019-08-06 20:52] LABS: BASO % 0.8 % (0-2.0); EOS % 2.4 % (0-4.5); HEMATOCRIT 29.3 % (35.4-49); HEMOGLOBIN 9.2 GM/dL (11.7-16.9); MCH 25.7 pg (25.7-33.7); MCHC 31.2 g/dl (32.0-35.9); MEAN CELL VOLUME 82.3 fl (80-96); MONO % 11.5 % (3.8-10.2); NEUT % 79.3 % (42.8-82.8); PLATELET COUNT 226 K/MM3 (134-434); RBC 3.56 M/mm3 (4.00-5.60); RDW 19.3 % (11.9-15.9); WHITE BLOOD COUNT 13.5 K/mm3 (4.0-10.0)
[2019-08-06] MEDS ORDERED: PT OWN MED DRAWER 7, Y5N ONE (22:00)
[2019-08-07] MEDS: VANCOMYCIN 250 MG/5 ML ORAL SOLUTION PO SCH ×4 (00:05→17:15)
--- NOTE | 2019-08-07 09:49 | PN ---
Progress Note (short form) - Note Progress Note: Vascular Surgery CAlled to evaluate for permacath exchange. Last HD was on Sat. pt had low grade temp yesterday, and CT showed colitis . Blood cx pending. Will wait to see if the cultures are positive before placing new catheter. Go mejia DO
[2019-08-07] MEDS ORDERED: SODIUM CHLORIDE 250 ML IV PRN (11:40)
--- NOTE | 2019-08-07 11:40 | PN ---
Progress Note, Physician History of Present Illness: Pt seen and examined at bedside. He is awake and appears comfortable. he remains confused. - Current Medication List Current Medications: Active Medications Acetaminophen (Tylenol Suppository -) 650 mg [place] Q6H PRN PRN Reason: FEVER Last Admin: 08/05/19 22:14 Dose: 650 mg Allopurinol (Zyloprim -) 100 mg PEG DAILY [facility] Last Admin: 08/06/19 10:50 Dose: 100 mg Amino Acids (Prosource No Carb Liquid Pkt) 30 ml PO BID@0800,1730 [facility] Last Admin: 08/06/19 17:42 Dose: 30 ml Collagenase (Santyl -) 1 applic TP DAILY [facility]; Protocol Last Admin: 08/06/19 10:50 Dose: 1 applic Metoprolol Tartrate (Lopressor -) 25 mg GT BID [facility] Last Admin: 08/06/19 22:14 Dose: 25 mg Povidone Iodine (Betadine 10% Solution -) 1 applic TP DAILY [facility] Last Admin: 08/06/19 10:50 Dose: 1 applic Vancomycin HCl (Vancomycin Oral Solution) 125 mg PO Q6HPO [facility] Last Admin: 08/07/19 06:47 Dose: 125 mg - Objective Vital Signs: Vital Signs Temperature 98.7 F 08/07/19 06:00 Pulse Rate 121 H 08/07/19 06:00 Respiratory Rate 16 08/07/19 06:00 Blood Pressure 156/52 L 08/07/19 06:00 O2 Sat by Pulse Oximetry (%) 99 08/06/19 21:00 Constitutional: Yes: Calm Eyes: Yes: Conjunctiva Clear HENT: Yes: Atraumatic Neck: Yes: Supple Cardiovascular: Yes: S1, S2 Respiratory: Yes: CTA Bilaterally Gastrointestinal: Yes: Soft Genitourinary: Yes: Incontinence Musculoskeletal: Yes: Muscle Weakness Edema: No Neurological: Yes: Confusion Labs: CBC, BMP 08/06/19 20:35 08/05/19 07:00 INR, PTT INR Cancelled 07/25/19 17:46 Problem List - Problems (1) CHF (congestive heart failure) Code(s): I50.9 - HEART FAILURE, UNSPECIFIED (2) COPD (chronic obstructive pulmonary disease) Code(s): J44.9 - CHRONIC OBSTRUCTIVE PULMONARY DISEASE, UNSPECIFIED (3) ESRD (end stage renal disease) on dialysis Code(s): N18.6 - END STAGE RENAL DISEASE; Z99.2 - DEPENDENCE ON RENAL DIALYSIS Assessment/Plan Current Medications Generic Name Dose Route Start Last Admin Trade Name Amilcarq PRN Reason Stop Dose Admin Acetaminophen 650 mg 07/26/19 00:41 08/05/19 22:14 Tylenol Suppository - [place] 650 mg Q6H PRN Administration FEVER Allopurinol 100 mg 07/26/19 10:00 08/06/19 10:50 Zyloprim - PEG 100 mg DAILY [facility] Administration Amino Acids 30 ml 07/26/19 17:30 08/06/19 17:42 Prosource No Carb Liquid Pkt PO 30 ml BID@0800,1730 [facility] Administration Collagenase 1 applic 07/26/19 10:00 08/06/19 10:50 Santyl - TP 1 applic DAILY [facility] Administration Protocol Metoprolol Tartrate 25 mg 08/02/19 10:00 08/06/19 22:14 Lopressor - GT 25 mg BID [facility] Administration Povidone Iodine 1 applic 08/02/19 12:06 08/06/19 10:50 Betadine 10% Solution - TP 1 applic DAILY [facility] Administration Vancomycin HCl 125 mg 08/01/19 18:00 08/07/19 06:47 Vancomycin Oral Solution PO 125 mg Q6HPO [facility] Administration Impression 1. ESRD 2. sepsis 3. gout 4. HTN 5. CHF 6. DM 7. hx bipolar 8. MOLLY 9. non compliance 10. c. diff 11. lactic acidosis 12. new onset a-fib 13. hypokalemia Plan - HD tomorrow - catheter worked on last hd - cont epogen - pt tolerating feeds - monitor bp - abx per primary team
[2019-08-07] MEDS: METOPROLOL TARTRATE 25 MG TABLET (FP) GT SCH ×2 (12:02→21:41)
[2019-08-07] MEDS: AMINO ACIDS/PROTEIN HYDROLYS 30 ML LIQUID.PKT PO SCH ×2 (12:02→17:15)
[2019-08-07] MEDS: ALLOPURINOL 100 MG TABLET (FP) PEG SCH (12:02)
[2019-08-07] MEDS: COLLAGENASE CLOSTRIDIUM HIST. 30 GRAMS TUBE TP SCH (12:03)
[2019-08-07] MEDS: POVIDONE-IODINE 10% SOLN 118 ML BOTTLE TP SCH (12:31)
[2019-08-07 14:27] VITALS: BMI 31.4
--- NOTE | 2019-08-07 14:28 | PN ---
Progress Note (short form) - Note Progress Note: pt seen/ examined all f/u noted awake. no distress chronic ill apperance. denies pain. afebrile today cultures send yesterday Slightly elevated wbcs Vital Signs Temp 99.2 F 08/07/19 10:00 Pulse 120 H 08/07/19 10:00 Resp 17 08/07/19 10:00 BP 106/62 08/07/19 10:00 Pulse Ox 99 08/06/19 21:00 Intake & Output 08/06/19 08/07/19 08/07/19 23:59 11:59 23:59 Intake Total 450 700 Balance 450 700 Intake: Tube Feeding 200 400 Tube Irrigant 250 300 Other: Voiding Method Incontinent Incontinent # Unmeasured Voids Void 2 2 Bowel Movement Yes Yes # Bowel Movements 2 1 Active Medications Acetaminophen (Tylenol Suppository -) 650 mg ND Q6H PRN PRN Reason: FEVER Last Admin: 08/05/19 22:14 Dose: 650 mg Allopurinol (Zyloprim -) 100 mg PEG DAILY [facility] Last Admin: 08/07/19 12:02 Dose: 100 mg Amino Acids (Prosource No Carb Liquid Pkt) 30 ml PO BID@0800,1730 [facility] Last Admin: 08/07/19 12:02 Dose: 30 ml Collagenase (Santyl -) 1 applic TP DAILY [facility]; Protocol Last Admin: 08/07/19 12:03 Dose: 1 applic Epoetin Shawn (Procrit -) 10,000 unit IVPUSH ONCE ONE Stop: 08/08/19 11:41 Heparin Sodium (Porcine) (Heparin -) 1,000 unit IVPUSH ONCE ONE Stop: 08/08/19 11:41 Sodium Chloride (Normal Saline -) 250 mls @ 3,000 mls/hr IV PRN PRN PRN Reason: Hypotension during Dialysis Stop: 08/08/19 11:40 Metoprolol Tartrate (Lopressor -) 25 mg GT BID [facility] Last Admin: 08/07/19 12:02 Dose: 25 mg Povidone Iodine (Betadine 10% Solution -) 1 applic TP DAILY [facility] Last Admin: 08/07/19 12:31 Dose: 1 applic Vancomycin HCl (Vancomycin Oral Solution) 125 mg PO Q6HPO [facility] Last Admin: 08/07/19 12:03 Dose: 125 mg CBC, BMP 08/06/19 20:35 08/05/19 07:00 Physical awake/ weak/ speaks little/ chronic ill appearance S1 S2 RRR Lungs decreased Abd- soft, NT, Peg+ No edema PLAN Low grade fever- Afebrile today iv antibiotics __>dc No diarrhea LFT -- monitor s/p prbc ct abd noted-->colitis-- continue with meds cultures noted cdiff positive-- on GT vanco still tachy- monitor will follow i/d to follow d/w rn also
--- NOTE | 2019-08-07 15:51 | PN ---
Progress Note (short form) - Note Progress Note: low grade temp on Wednesday 99.2 today cultres sent and pending still with 2 to 3 loose stools daily day #6 po vancomycin Vital Signs Period Temp Pulse Resp BP Sys/Castillo Pulse Ox Last 24 Hr 98.5 F-99.2 F 118-122 16-18 92-156/52-67 98-99 cor-rrr lungs clear abd soft,nt +PC-site clean abd soft,nt ulcers- sacrum clean, left heal with purulent base, right heel clean CBC, BMP 08/06/19 20:35 08/05/19 07:00 Microbiology 08/06/19 15:30 Blood - Peripheral Venous Blood Culture - Preliminary NO GROWTH OBTAINED AFTER 24 HOURS, INCUBATION TO CONTINUE FOR 4 DAYS. 08/06/19 15:45 Blood - Peripheral Venous Blood Culture - Preliminary NO GROWTH OBTAINED AFTER 24 HOURS, INCUBATION TO CONTINUE FOR 4 DAYS. 07/31/19 22:20 Stool Clostridioides difficile Antigen - Final 07/31/19 22:20 Stool Clostridioides difficile Toxin Assay - Final 07/25/19 17:46 Blood - Peripheral Venous Blood Culture - Final NO GROWTH AFTER 5 DAYS INCUBATION 07/25/19 17:46 Blood - Peripheral Venous Blood Culture - Final NO GROWTH AFTER 5 DAYS INCUBATION 07/26/19 15:00 Peg Site Gram Stain - Final 07/26/19 15:00 Peg Site Wound Culture - Final Pseudomonas Aeruginosa Yeast Like Organism Enterococcus Faecalis 07/26/19 05:30 Sputum - Expectorated Gram Stain - Final 07/26/19 05:30 Sputum - Expectorated Sputum Culture - Final Pseudomonas Aeruginosa 07/25/19 20:26 Urine - Urine Clean Catch Urine Culture - Final NO GROWTH OBTAINED a/p low grade temp-blood cultures pending cdiff colitis slowly resolving-on po vancomycin f/u blood cultures repeat cbc in am esrd/hd
[2019-08-08] MEDS: VANCOMYCIN 250 MG/5 ML ORAL SOLUTION PO SCH ×4 (00:05→17:47)
[2019-08-08] MEDS ORDERED: HEPARIN NA (PORCINE) 5,000 UNITS/ML 1ML VIAL IVPUSH ONE (09:15)
[2019-08-08] MEDS ORDERED: EPOETIN ALFA 10,000 UNIT/1 ML VIAL IVPUSH ONE (09:15)
[2019-08-08 11:24] LABS: HEMATOCRIT 28.9 % (35.4-49); HEMOGLOBIN 8.9 GM/dL (11.7-16.9); MCH 25.4 pg (25.7-33.7); MCHC 30.8 g/dl (32.0-35.9); MEAN CELL VOLUME 82.4 fl (80-96); MEAN PLT VOLUME 9.4 fl (7.5-11.1); PLATELET COUNT 261 K/MM3 (134-434); RBC 3.51 M/mm3 (4.00-5.60); RDW 19.7 % (11.9-15.9); WHITE BLOOD COUNT 11.7 K/mm3 (4.0-10.0)
[2019-08-08 11:46] LABS: BLOOD UREA NITROGEN 92.7 mg/dL (7-18); CALCIUM 9.4 mg/dL (8.5-10.1); CREATININE 6.3 mg/dL (0.55-1.3); POTASSIUM 3.5 mmol/L (3.5-5.1)
[2019-08-08] MEDS: AMINO ACIDS/PROTEIN HYDROLYS 30 ML LIQUID.PKT PO SCH ×2 (12:41→17:47)
[2019-08-08] MEDS ORDERED: PT OWN MED DRAWER 7, Y5N ONE (13:17)
--- NOTE | 2019-08-08 13:43 | PN ---
Progress Note, Physician History of Present Illness: Pt see n and examined at bedside. He is awake and appears comfortable. He tolerated HD. - Current Medication List Current Medications: Active Medications Acetaminophen (Tylenol Suppository -) 650 mg [place] Q6H PRN PRN Reason: FEVER Last Admin: 08/05/19 22:14 Dose: 650 mg Allopurinol (Zyloprim -) 100 mg PEG DAILY [facility] Last Admin: 08/07/19 12:02 Dose: 100 mg Amino Acids (Prosource No Carb Liquid Pkt) 30 ml PO BID@0800,1730 [facility] Last Admin: 08/08/19 12:41 Dose: Not Given Collagenase (Santyl -) 1 applic TP DAILY [facility]; Protocol Last Admin: 08/07/19 12:03 Dose: 1 applic Metoprolol Tartrate (Lopressor -) 25 mg GT BID [facility] Last Admin: 08/08/19 12:41 Dose: Not Given Povidone Iodine (Betadine 10% Solution -) 1 applic TP DAILY [facility] Last Admin: 08/07/19 12:31 Dose: 1 applic Vancomycin HCl (Vancomycin Oral Solution) 125 mg PO Q6HPO [facility] Last Admin: 08/08/19 06:17 Dose: 125 mg - Objective Vital Signs: Vital Signs Temperature 98.1 F 08/08/19 10:00 Pulse Rate 120 H 08/08/19 13:00 Respiratory Rate 18 08/08/19 13:00 Blood Pressure 111/82 08/08/19 13:00 O2 Sat by Pulse Oximetry (%) 98 08/07/19 21:00 Constitutional: Yes: Calm Eyes: Yes: Conjunctiva Clear HENT: Yes: Atraumatic Neck: Yes: Supple Cardiovascular: Yes: S1, S2 Respiratory: Yes: CTA Bilaterally Gastrointestinal: Yes: Normal Bowel Sounds, Soft Genitourinary: Yes: WNL Musculoskeletal: Yes: WNL Edema: No Neurological: Yes: Confusion Labs: CBC, BMP 08/08/19 09:50 08/08/19 09:50 INR, PTT INR Cancelled 07/25/19 17:46 Problem List - Problems (1) CHF (congestive heart failure) Code(s): I50.9 - HEART FAILURE, UNSPECIFIED (2) COPD (chronic obstructive pulmonary disease) Code(s): J44.9 - CHRONIC OBSTRUCTIVE PULMONARY DISEASE, UNSPECIFIED (3) ESRD (end stage renal disease) on dialysis Code(s): N18.6 - END STAGE RENAL DISEASE; Z99.2 - DEPENDENCE ON RENAL DIALYSIS Assessment/Plan Current Medications Generic Name Dose Route Start Last Admin Trade Name Amilcarq PRN Reason Stop Dose Admin Acetaminophen 650 mg 07/26/19 00:41 08/05/19 22:14 Tylenol Suppository - [place] 650 mg Q6H PRN Administration FEVER Allopurinol 100 mg 07/26/19 10:00 08/07/19 12:02 Zyloprim - PEG 100 mg DAILY [facility] Administration Amino Acids 30 ml 07/26/19 17:30 08/08/19 12:41 Prosource No Carb Liquid Pkt PO Not Given BID@0800,1730 [facility] Collagenase 1 applic 07/26/19 10:00 08/07/19 12:03 Santyl - TP 1 applic DAILY [facility] Administration Protocol Metoprolol Tartrate 25 mg 08/02/19 10:00 08/08/19 12:41 Lopressor - GT Not Given BID [facility] Povidone Iodine 1 applic 08/02/19 12:06 08/07/19 12:31 Betadine 10% Solution - TP 1 applic DAILY [facility] Administration Vancomycin HCl 125 mg 08/01/19 18:00 08/08/19 06:17 Vancomycin Oral Solution PO 125 mg Q6HPO [facility] Administration Impression 1. ESRD 2. sepsis 3. gout 4. HTN 5. CHF 6. DM 7. hx bipolar 8. MOLLY 9. non compliance 10. c. diff 11. lactic acidosis 12. new onset a-fib 13. hypokalemia Plan - HD today - cont feeds - epogen for anemia - pt tolerating feeds - monitor bp - abx per primary team - anahi is working
[2019-08-08] MEDS: METOPROLOL TARTRATE 25 MG TABLET (FP) GT SCH ×2 (13:44→21:57)
[2019-08-08] MEDS: COLLAGENASE CLOSTRIDIUM HIST. 30 GRAMS TUBE TP SCH (13:48)
[2019-08-08] MEDS: POVIDONE-IODINE 10% SOLN 118 ML BOTTLE TP SCH (13:48)
[2019-08-08] MEDS: ALLOPURINOL 100 MG TABLET (FP) PEG SCH (13:48)
--- NOTE | 2019-08-08 15:38 | PN ---
Progress Note (short form) - Note Progress Note: Pt is awake no distress diarrhea+-- one loose bm so far today HR elevated Vital Signs - 24 hr 08/07/19 08/07/19 08/07/19 17:00 21:00 22:00 Temperature 98.7 F 98.5 F Pulse Rate 124 H 122 H Respiratory 18 18 18 Rate Blood Pressure 125/74 108/66 O2 Sat by Pulse 98 Oximetry (%) 08/08/19 08/08/19 08/08/19 02:03 05:59 09:45 Temperature 99.9 F H 98.2 F 98.9 F Pulse Rate 127 H 123 H 120 H Respiratory 19 19 18 Rate Blood Pressure 117/44 L 102/63 120/78 O2 Sat by Pulse Oximetry (%) 08/08/19 08/08/19 08/08/19 09:50 10:00 10:20 Temperature 98.1 F Pulse Rate 120 H 124 H 126 H Respiratory 18 20 18 Rate Blood Pressure 130/75 122/77 122/77 O2 Sat by Pulse Oximetry (%) 08/08/19 08/08/19 08/08/19 10:50 11:20 11:50 Temperature Pulse Rate 120 H 121 H 118 H Respiratory 18 18 18 Rate Blood Pressure 110/65 117/80 90/58 L O2 Sat by Pulse Oximetry (%) 08/08/19 08/08/19 08/08/19 12:20 12:50 13:00 Temperature Pulse Rate 120 H 119 H 120 H Respiratory 18 18 18 Rate Blood Pressure 108/60 109/71 111/82 O2 Sat by Pulse Oximetry (%) 08/08/19 08/08/19 13:37 14:22 Temperature 97.9 F Pulse Rate 118 H 124 H Respiratory 16 18 Rate Blood Pressure 108/60 90/68 O2 Sat by Pulse Oximetry (%) Current Medications Generic Name Dose Route Start Last Admin Trade Name Freq PRN Reason Stop Dose Admin Acetaminophen 650 mg 07/26/19 00:41 08/05/19 22:14 Tylenol Suppository - MT 650 mg Q6H PRN Administration FEVER Allopurinol 100 mg 07/26/19 10:00 08/08/19 13:48 Zyloprim - PEG 100 mg DAILY [facility] Administration Amino Acids 30 ml 07/26/19 17:30 08/08/19 12:41 Prosource No Carb Liquid Pkt PO Not Given BID@0800,1730 [facility] Collagenase 1 applic 07/26/19 10:00 08/08/19 13:48 Santyl - TP 1 applic DAILY [facility] Administration Protocol Metoprolol Tartrate 25 mg 08/02/19 10:00 08/08/19 13:44 Lopressor - GT Not Given BID [facility] Povidone Iodine 1 applic 08/02/19 12:06 08/08/19 13:48 Betadine 10% Solution - TP 1 applic DAILY [facility] Administration Vancomycin HCl 125 mg 08/01/19 18:00 08/08/19 13:47 Vancomycin Oral Solution PO 125 mg Q6HPO [facility] Administration Laboratory Results - last 24 hr 08/08/19 08/08/19 09:50 09:50 WBC 11.7 H RBC 3.51 L Hgb 8.9 L Hct 28.9 L MCV 82.4 MCH 25.4 L MCHC 30.8 L RDW 19.7 H Plt Count 261 MPV 9.4 Sodium 140 Potassium 3.5 Chloride 101 Carbon Dioxide 26 Anion Gap 12 BUN 92.7 H Creatinine 6.3 H Est GFR (CKD-EPI)AfAm 10.42 Est GFR (CKD-EPI)NonAf 8.99 Random Glucose 92 Calcium 9.4 07/25/19 17:46 Blood - Peripheral Venous Blood Culture - Final NO GROWTH AFTER 5 DAYS INCUBATION 07/25/19 17:46 Blood - Peripheral Venous Blood Culture - Final NO GROWTH AFTER 5 DAYS INCUBATION 07/26/19 15:00 Peg Site Gram Stain - Final 07/26/19 15:00 Peg Site Wound Culture - Final Pseudomonas Aeruginosa Yeast Like Organism Enterococcus Faecalis 07/26/19 05:30 Sputum - Expectorated Gram Stain - Final 07/26/19 05:30 Sputum - Expectorated Sputum Culture - Final Pseudomonas Aeruginosa 07/25/19 20:26 Urine - Urine Clean Catch Urine Culture - Final NO GROWTH OBTAINED S1 S2 RRR Lungs decreased Abd- soft, NT, Peg+ No edema PLAN iv antibiotics __>dc increase feeds, free water BP on lower side HR still elevated s/p prbc ct abd noted-->colitis continue with meds cultures noted cdiff positive-- on GT vanco Problem List - Problems (1) CHF (congestive heart failure) Code(s): I50.9 - HEART FAILURE, UNSPECIFIED (2) COPD (chronic obstructive pulmonary disease) Code(s): J44.9 - CHRONIC OBSTRUCTIVE PULMONARY DISEASE, UNSPECIFIED (3) Elevated liver enzymes Code(s): R74.8 - ABNORMAL LEVELS OF OTHER SERUM ENZYMES (4) Sepsis Code(s): A41.9 - SEPSIS, UNSPECIFIED ORGANISM Qualifiers: Sepsis type: sepsis due to unspecified organism Sepsis acute organ dysfunction status: unspecified Qualified Code(s): A41.9 - Sepsis, unspecified organism (5) Acute metabolic encephalopathy Code(s): G93.41 - METABOLIC ENCEPHALOPATHY (6) ESRD (end stage renal disease) on dialysis Code(s): N18.6 - END STAGE RENAL DISEASE; Z99.2 - DEPENDENCE ON RENAL DIALYSIS (7) Elevated LFTs Code(s): R94.5 - ABNORMAL RESULTS OF LIVER FUNCTION STUDIES
[2019-08-08] MEDS: ACETAMINOPHEN 650 MG SUPP.RECT PR PRN (17:47)
[2019-08-09] MEDS: VANCOMYCIN 250 MG/5 ML ORAL SOLUTION PO SCH ×5 (06:16→23:48)
[2019-08-09] MEDS ORDERED: SODIUM CHLORIDE 250 ML IV PRN (08:47)
[2019-08-09] MEDS: COLLAGENASE CLOSTRIDIUM HIST. 30 GRAMS TUBE TP SCH (11:17)
[2019-08-09] MEDS: METOPROLOL TARTRATE 25 MG TABLET (FP) GT SCH ×2 (11:17→21:19)
[2019-08-09] MEDS: POVIDONE-IODINE 10% SOLN 118 ML BOTTLE TP SCH (11:17)
[2019-08-09] MEDS: ALLOPURINOL 100 MG TABLET (FP) PEG SCH (11:17)
[2019-08-09] MEDS: AMINO ACIDS/PROTEIN HYDROLYS 30 ML LIQUID.PKT PO SCH ×2 (11:17→17:14)
--- NOTE | 2019-08-09 11:52 | PN ---
Progress Note (short form) - Note Progress Note: Pt is awake no distress diarrhea+-- one small loose bm so far today Vital Signs - 24 hr 08/08/19 08/08/19 08/08/19 11:50 12:20 12:50 Temperature Pulse Rate 118 H 120 H 119 H Respiratory 18 18 18 Rate Blood Pressure 90/58 L 108/60 109/71 O2 Sat by Pulse Oximetry (%) 08/08/19 08/08/19 08/08/19 13:00 13:37 14:22 Temperature 97.9 F Pulse Rate 120 H 118 H 124 H Respiratory 18 16 18 Rate Blood Pressure 111/82 108/60 90/68 O2 Sat by Pulse Oximetry (%) 08/08/19 08/08/19 08/08/19 18:00 20:44 22:00 Temperature 100.4 F H 99 F Pulse Rate 130 H 122 H Respiratory 17 17 17 Rate Blood Pressure 103/7 L 107/70 O2 Sat by Pulse 96 Oximetry (%) 08/09/19 08/09/19 08/09/19 01:09 06:43 11:00 Temperature 98.1 F 98 F 99.4 F Pulse Rate 110 H 120 H 120 H Respiratory 16 16 20 Rate Blood Pressure 102/67 115/79 108/60 O2 Sat by Pulse Oximetry (%) Current Medications Generic Name Dose Route Start Last Admin Trade Name Vandana PRN Reason Stop Dose Admin Acetaminophen 650 mg 08/09/19 12:00 Tylenol Oral Solution - GT Q6H [facility] Allopurinol 100 mg 07/26/19 10:00 08/09/19 11:17 Zyloprim - PEG 100 mg DAILY [facility] Administration Amino Acids 30 ml 07/26/19 17:30 08/09/19 11:17 Prosource No Carb Liquid Pkt PO 30 ml BID@0800,1730 [facility] Administration Collagenase 1 applic 07/26/19 10:00 08/09/19 11:17 Santyl - TP 1 applic DAILY [facility] Administration Protocol Metoprolol Tartrate 25 mg 08/02/19 10:00 08/09/19 11:17 Lopressor - GT 25 mg BID [facility] Administration Povidone Iodine 1 applic 08/02/19 12:06 08/09/19 11:17 Betadine 10% Solution - TP 1 applic DAILY [facility] Administration Vancomycin HCl 125 mg 08/01/19 18:00 08/09/19 11:18 Vancomycin Oral Solution PO 125 mg Q6HPO [facility] Administration Laboratory Results - last 24 hr 08/05/19 07:00 Hep Bs Antigen Negative Hep C Ab Diagnostic 0.1 07/25/19 17:46 Blood - Peripheral Venous Blood Culture - Final NO GROWTH AFTER 5 DAYS INCUBATION 07/25/19 17:46 Blood - Peripheral Venous Blood Culture - Final NO GROWTH AFTER 5 DAYS INCUBATION 07/26/19 15:00 Peg Site Gram Stain - Final 07/26/19 15:00 Peg Site Wound Culture - Final Pseudomonas Aeruginosa Yeast Like Organism Enterococcus Faecalis 07/26/19 05:30 Sputum - Expectorated Gram Stain - Final 07/26/19 05:30 Sputum - Expectorated Sputum Culture - Final Pseudomonas Aeruginosa 07/25/19 20:26 Urine - Urine Clean Catch Urine Culture - Final NO GROWTH OBTAINED S1 S2 RRR Lungs decreased Abd- soft,tender left quadrant- pt grimaces , Peg+ No edema PLAN iv antibiotics __>dc increase feeds, free water BP on lower side HR still elevated he has a low grade fevere HR elevated due to pain ? , dehydration? , low grde temps? Tylenol scheduled to help with pain ct abd noted-->colitis continue with meds cultures noted cdiff positive-- on GT vanco Problem List - Problems (1) CHF (congestive heart failure) Code(s): I50.9 - HEART FAILURE, UNSPECIFIED (2) COPD (chronic obstructive pulmonary disease) Code(s): J44.9 - CHRONIC OBSTRUCTIVE PULMONARY DISEASE, UNSPECIFIED (3) Elevated liver enzymes Code(s): R74.8 - ABNORMAL LEVELS OF OTHER SERUM ENZYMES (4) Sepsis Code(s): A41.9 - SEPSIS, UNSPECIFIED ORGANISM Qualifiers: Sepsis type: sepsis due to unspecified organism Sepsis acute organ dysfunction status: unspecified Qualified Code(s): A41.9 - Sepsis, unspecified organism (5) Acute metabolic encephalopathy Code(s): G93.41 - METABOLIC ENCEPHALOPATHY (6) ESRD (end stage renal disease) on dialysis Code(s): N18.6 - END STAGE RENAL DISEASE; Z99.2 - DEPENDENCE ON RENAL DIALYSIS (7) Elevated LFTs Code(s): R94.5 - ABNORMAL RESULTS OF LIVER FUNCTION STUDIES
--- NOTE | 2019-08-09 12:11 | PN ---
Progress Note, Physician History of Present Illness: Pt seen and examined at bedside. He is awake and appears comfortable. - Current Medication List Current Medications: Active Medications Acetaminophen (Tylenol Oral Solution -) 650 mg GT Q6H [facility] Allopurinol (Zyloprim -) 100 mg PEG DAILY [facility] Last Admin: 08/09/19 11:17 Dose: 100 mg Amino Acids (Prosource No Carb Liquid Pkt) 30 ml PO BID@0800,1730 [facility] Last Admin: 08/09/19 11:17 Dose: 30 ml Collagenase (Santyl -) 1 applic TP DAILY [facility]; Protocol Last Admin: 08/09/19 11:17 Dose: 1 applic Metoprolol Tartrate (Lopressor -) 25 mg GT BID [facility] Last Admin: 08/09/19 11:17 Dose: 25 mg Povidone Iodine (Betadine 10% Solution -) 1 applic TP DAILY [facility] Last Admin: 08/09/19 11:17 Dose: 1 applic Vancomycin HCl (Vancomycin Oral Solution) 125 mg PO Q6HPO [facility] Last Admin: 08/09/19 11:18 Dose: 125 mg - Objective Vital Signs: Vital Signs Temperature 99.4 F 08/09/19 11:00 Pulse Rate 120 H 08/09/19 11:00 Respiratory Rate 20 08/09/19 11:00 Blood Pressure 108/60 08/09/19 11:00 O2 Sat by Pulse Oximetry (%) 96 08/08/19 20:44 Constitutional: Yes: Calm Eyes: Yes: Conjunctiva Clear HENT: Yes: Atraumatic Cardiovascular: Yes: S1, S2 Respiratory: Yes: CTA Bilaterally Gastrointestinal: Yes: Soft Genitourinary: Yes: Incontinence Musculoskeletal: Yes: Muscle Weakness Edema: No Neurological: Yes: Confusion Labs: CBC, BMP 08/08/19 09:50 08/08/19 09:50 INR, PTT INR Cancelled 07/25/19 17:46 Problem List - Problems (1) CHF (congestive heart failure) Code(s): I50.9 - HEART FAILURE, UNSPECIFIED (2) COPD (chronic obstructive pulmonary disease) Code(s): J44.9 - CHRONIC OBSTRUCTIVE PULMONARY DISEASE, UNSPECIFIED (3) ESRD (end stage renal disease) on dialysis Code(s): N18.6 - END STAGE RENAL DISEASE; Z99.2 - DEPENDENCE ON RENAL DIALYSIS Assessment/Plan Current Medications Generic Name Dose Route Start Last Admin Trade Name Vandana PRN Reason Stop Dose Admin Acetaminophen 650 mg 08/09/19 12:00 Tylenol Oral Solution - GT Q6H [facility] Allopurinol 100 mg 07/26/19 10:00 08/09/19 11:17 Zyloprim - PEG 100 mg DAILY [facility] Administration Amino Acids 30 ml 07/26/19 17:30 08/09/19 11:17 Prosource No Carb Liquid Pkt PO 30 ml BID@0800,1730 [facility] Administration Collagenase 1 applic 07/26/19 10:00 08/09/19 11:17 Santyl - TP 1 applic DAILY [facility] Administration Protocol Metoprolol Tartrate 25 mg 08/02/19 10:00 08/09/19 11:17 Lopressor - GT 25 mg BID [facility]AL[facility] Administration Povidone Iodine 1 applic 08/02/19 12:06 08/09/19 11:17 Betadine 10% Solution - TP 1 applic DAILY [facility] Administration Vancomycin HCl 125 mg 08/01/19 18:00 08/09/19 11:18 Vancomycin Oral Solution PO 125 mg Q6HPO [facility] Administration Impression 1. ESRD 2. sepsis 3. gout 4. HTN 5. CHF 6. DM 7. hx bipolar 8. MOLLY 9. non compliance 10. c. diff 11. lactic acidosis 12. new onset a-fib 13. hypokalemia Plan - HD tomorrow - cont epogen for anemia - pt tolerating feeds - monitor bp - abx per primary team
[2019-08-09] MEDS: ACETAMINOPHEN 650 MG/20.3 ML ORAL SOLUTION (CUPS) GT SCH ×3 (15:31→23:47)
[2019-08-09] MEDS ORDERED: METOPROLOL TARTRATE 25 MG TABLET (FP) GT ONE (16:17)
--- NOTE | 2019-08-09 16:17 | PN ---
Progress Note, Physician History of Present Illness: asked to re-evaluate pt for persistent tachycardia. pt seen and examined today in nad. does not verbally answer questions but shakes his head yes and no appropriately to my questions. he denies any chest pain or sob. denies palpitations. but says that yes he feels his heart rate going fast at times. - Current Medication List Current Medications: Active Medications Acetaminophen (Tylenol Oral Solution -) 650 mg GT Q6H [facility] Allopurinol (Zyloprim -) 100 mg PEG DAILY [facility] Last Admin: 08/09/19 11:17 Dose: 100 mg Amino Acids (Prosource No Carb Liquid Pkt) 30 ml PO BID@0800,1730 [facility] Last Admin: 08/09/19 11:17 Dose: 30 ml Collagenase (Santyl -) 1 applic TP DAILY [facility]; Protocol Last Admin: 08/09/19 11:17 Dose: 1 applic Epoetin Shawn (Epogen -) 12,000 unit IVPUSH ONCE ONE Stop: 08/10/19 12:12 Heparin Sodium (Porcine) (Heparin -) 1,000 unit IVPUSH ONCE ONE Stop: 08/10/19 12:12 Sodium Chloride (Normal Saline -) 250 mls @ 3,000 mls/hr IV PRN PRN PRN Reason: Hypotension during Dialysis Stop: 08/10/19 12:11 Metoprolol Tartrate (Lopressor -) 25 mg GT BID [facility] Last Admin: 08/09/19 11:17 Dose: 25 mg Povidone Iodine (Betadine 10% Solution -) 1 applic TP DAILY [facility] Last Admin: 08/09/19 11:17 Dose: 1 applic Vancomycin HCl (Vancomycin Oral Solution) 125 mg PO Q6HPO [facility] Last Admin: 08/09/19 11:18 Dose: 125 mg - Objective Vital Signs: Vital Signs Temperature 97.9 F 08/09/19 13:35 Pulse Rate 112 H 08/09/19 13:35 Respiratory Rate 18 08/09/19 13:35 Blood Pressure 118/69 08/09/19 13:35 O2 Sat by Pulse Oximetry (%) 96 08/08/19 20:44 Constitutional: Yes: No Distress, Calm Eyes: Yes: Conjunctiva Clear, EOM Intact HENT: Yes: Atraumatic, Normocephalic Neck: Yes: Supple, Trachea Midline Cardiovascular: Yes: Tachycardia, S1, S2. No: Regular Rate and Rhythm, Bradycardia, Pulse Irregular, Bruit, JVD, Gallop, Murmur, Rub, S3, S4, Varicosities Respiratory: Yes: Regular, CTA Bilaterally. No: Rales, Rhonchi Gastrointestinal: Yes: Normal Bowel Sounds, Soft Edema: No Neurological: Yes: Alert Psychiatric: Yes: Alert Labs: CBC, BMP 08/08/19 09:50 08/08/19 09:50 INR, PTT INR Cancelled 07/25/19 17:46 - ....Imaging Chest X-ray: Report Reviewed, Image Reviewed EKG: Report Reviewed, Image Reviewed Other: Report Reviewed, Image Reviewed (tele-sinus tach 120bpm) Assessment/Plan 59 year old male, decreased mental status, PMH of ESRD (, , ), HTN, HLD, CHF, COPD, gout, Bipolar Disorder, and schizophrenia presents from [place] during dialysis session BIBEMS due to tachycardia and hypotension. The HR was in the 140'sand the BP was 90/60 mmHg. He has a permacath and a G tube. Temp 101.4. Tachycardia-persistent tachycardia throughout admission. -tele reviewed, HR range 110-120s most of the time -appears most consistent with sinus tach -less likely possible SVT (atrial tachycardia) -if confirmed sinus tach then would not aggressively try to control HR as it is driven by underlying condition -if SVT then will attempt to uptitrate AV christian blockers -will increase Metoprolol to 25mg TID with an extra dose now to evaluate response of HR and rhythm -uptitration of metoprolol is limited by BP -cont tele monitoring - echocardiogram 07/03/19 EF was 55-60%, no need to repeat an echo at this time. -check TFTs-ordered
[2019-08-09] MEDS ORDERED: METOPROLOL TARTRATE 25 MG TABLET (FP) GT SCH (22:00)
[2019-08-10] MEDS: VANCOMYCIN 250 MG/5 ML ORAL SOLUTION PO SCH ×3 (05:42→17:58)
[2019-08-10] MEDS: ACETAMINOPHEN 650 MG/20.3 ML ORAL SOLUTION (CUPS) GT SCH ×2 (05:43→12:16)
[2019-08-10] MEDS: METOPROLOL TARTRATE 25 MG TABLET (FP) GT SCH ×3 (05:44→21:57)
[2019-08-10] MEDS ORDERED: HEPARIN NA (PORCINE) 5,000 UNITS/ML 1ML VIAL IVPUSH ONE (09:00)
[2019-08-10] MEDS ORDERED: EPOETIN ALFA 10,000 UNIT/1 ML VIAL IVPUSH ONE ×2 (09:00→12:11)
[2019-08-10] MEDS: ALLOPURINOL 100 MG TABLET (FP) PEG SCH (09:59)
[2019-08-10] MEDS: AMINO ACIDS/PROTEIN HYDROLYS 30 ML LIQUID.PKT PO SCH ×2 (09:59→18:03)
[2019-08-10] MEDS: POVIDONE-IODINE 10% SOLN 118 ML BOTTLE TP SCH (10:25)
[2019-08-10] MEDS: COLLAGENASE CLOSTRIDIUM HIST. 30 GRAMS TUBE TP SCH (10:26)
--- NOTE | 2019-08-10 11:36 | PN ---
Progress Note, Physician History of Present Illness: Pt seen and examined at bedside. He is awake and appears comfortable. - Current Medication List Current Medications: Active Medications Acetaminophen (Tylenol Oral Solution -) [address] [facility] Last Admin: 08/10/19 05:43 Dose: 650 mg Allopurinol (Zyloprim -) [address] [facility] Last Admin: 08/10/19 09:59 Dose: Not Given Amino Acids (Prosource No Carb Liquid Pkt) 30 ml PO BID@0800,1730 [facility] Last Admin: 08/10/19 09:59 Dose: Not Given Collagenase (Santyl -) [address] [facility]; Protocol Last Admin: 08/10/19 10:26 Dose: 1 applic Metoprolol Tartrate (Lopressor -) [address] [facility] Last Admin: 08/10/19 05:44 Dose: 25 mg Povidone Iodine (Betadine 10% Solution -) [address] [facility] Last Admin: 08/10/19 10:25 Dose: 1 applic Vancomycin HCl (Vancomycin Oral Solution) [address] [facility] Last Admin: 08/10/19 05:42 Dose: 125 mg - Objective Vital Signs: Vital Signs Temperature 98.9 F 08/10/19 09:25 Pulse Rate 109 H 08/10/19 09:25 Respiratory Rate 20 08/10/19 09:25 Blood Pressure 107/71 08/10/19 09:25 O2 Sat by Pulse Oximetry (%) 98 08/09/19 21:00 Constitutional: Yes: Calm Eyes: Yes: Conjunctiva Clear HENT: Yes: Atraumatic Neck: Yes: Supple Cardiovascular: Yes: S1, S2 Respiratory: Yes: CTA Bilaterally Gastrointestinal: Yes: Normal Bowel Sounds, Soft Genitourinary: Yes: Incontinence Musculoskeletal: Yes: Muscle Weakness Edema: No Neurological: Yes: Confusion Labs: CBC, BMP 08/08/19 09:50 08/08/19 09:50 INR, PTT INR Cancelled 07/25/19 17:46 Problem List - Problems (1) CHF (congestive heart failure) Code(s): I50.9 - HEART FAILURE, UNSPECIFIED (2) COPD (chronic obstructive pulmonary disease) Code(s): J44.9 - CHRONIC OBSTRUCTIVE PULMONARY DISEASE, UNSPECIFIED (3) ESRD (end stage renal disease) on dialysis Code(s): N18.6 - END STAGE RENAL DISEASE; Z99.2 - DEPENDENCE ON RENAL DIALYSIS Assessment/Plan Current Medications Generic Name Dose Route Start Last Admin Trade Name Vandana PRN Reason Stop Dose Admin Acetaminophen 650 mg 08/09/19 12:00 08/10/19 05:43 Tylenol Oral Solution - GT 650 mg Q6H [facility] Administration Allopurinol 100 mg 07/26/19 10:00 08/10/19 09:59 Zyloprim - PEG Not Given DAILY [facility] Amino Acids 30 ml 07/26/19 17:30 08/10/19 09:59 Prosource No Carb Liquid Pkt PO Not Given BID@0800,1730 [facility] Collagenase 1 applic 07/26/19 10:00 08/10/19 10:26 Santyl - TP 1 applic DAILY [facility] Administration Protocol Metoprolol Tartrate 25 mg 08/09/19 22:00 08/10/19 05:44 Lopressor - GT 25 mg TID [facility] Administration Povidone Iodine 1 applic 08/02/19 12:06 08/10/19 10:25 Betadine 10% Solution - TP 1 applic DAILY [facility] Administration Vancomycin HCl 125 mg 08/01/19 18:00 08/10/19 05:42 Vancomycin Oral Solution PO 125 mg Q6HPO [facility] Administration Impression 1. ESRD 2. sepsis 3. gout 4. HTN 5. CHF 6. DM 7. hx bipolar 8. MOLLY 9. non compliance 10. c. diff 11. lactic acidosis 12. new onset a-fib 13. hypokalemia Plan - vascular to change permacath - make pt npo - discussed with vascular - will check labs - discussed with primary team - if labs ok will likely dialyze tomorrow - epogen for anemia
[2019-08-10 13:09] LABS: BASO % 1.1 % (0-2.0); EOS % 4.8 % (0-4.5); HEMATOCRIT 28.9 % (35.4-49); HEMOGLOBIN 9.2 GM/dL (11.7-16.9); LYMPH % 6.5 % (8-40); MCHC 31.9 g/dl (32.0-35.9); MEAN CELL VOLUME 81.2 fl (80-96); MEAN PLT VOLUME 8.7 fl (7.5-11.1); MONO % 13.2 % (3.8-10.2); NEUT % 74.4 % (42.8-82.8); PLATELET COUNT 270 K/MM3 (134-434); RBC 3.56 M/mm3 (4.00-5.60); RDW 19.9 % (11.9-15.9); WHITE BLOOD COUNT 10.7 K/mm3 (4.0-10.0)
[2019-08-10 13:20] LABS: INR 1.29 (0.83-1.09); PROTHROMBIN TIME (PATIENT) 15.3 SEC (9.7-13.0)
[2019-08-10 13:22] LABS: ACTIVATED PTT 33.2 SECONDS (25.2-36.5)
[2019-08-10 13:42] LABS: ALBUMIN 1.9 g/dl (3.4-5.0); BILIRUBIN,TOTAL 0.3 mg/dL (0.2-1); CALCIUM 9.5 mg/dL (8.5-10.1); CREATININE 5.5 mg/dL (0.55-1.3); POTASSIUM 3.5 mmol/L (3.5-5.1)
[2019-08-10] MEDS ORDERED: HEPARIN NA (PORCINE) 5,000 UNITS/ML 1ML VIAL ONE (13:49)
--- NOTE | 2019-08-10 15:42 | PN ---
Progress Note (short form) - Note Progress Note: VA[facility] Surgery Pt seen and examined. Permacath is in place. Not dislodged. Cuff is inside. Cont using PC No need to replace. Go Argueta dO
--- NOTE | 2019-08-10 15:55 | PN ---
Progress Note (short form) - Note Progress Note: Pt is awake no distress diarrhea+-- 2 loose bm so far today rate is better Vital Signs - 24 hr 08/09/19 08/09/19 08/10/19 18:00 21:00 01:38 Temperature 98.2 F 98.1 F 98.5 F Pulse Rate 121 H 111 H 110 H Respiratory 18 18 18 Rate Blood Pressure 118/73 104/70 106/61 O2 Sat by Pulse 98 Oximetry (%) 08/10/19 08/10/19 08/10/19 05:19 09:25 14:15 Temperature 98.1 F 98.9 F 98.6 F Pulse Rate 111 H 109 H 110 H Respiratory 18 20 18 Rate Blood Pressure 107/63 107/71 106/72 O2 Sat by Pulse Oximetry (%) Current Medications Generic Name Dose Route Start Last Admin Trade Name Freq PRN Reason Stop Dose Admin Allopurinol 100 mg 07/26/19 10:00 08/10/19 09:59 Zyloprim - PEG Not Given DAILY [facility] Amino Acids 30 ml 07/26/19 17:30 08/10/19 09:59 Prosource No Carb Liquid Pkt PO Not Given BID@0800,1730 [facility] Collagenase 1 applic 07/26/19 10:00 08/10/19 10:26 Santyl - TP 1 applic DAILY [facility] Administration Protocol Metoprolol Tartrate 25 mg 08/09/19 22:00 08/10/19 13:54 Lopressor - GT Not Given TID [facility] Povidone Iodine 1 applic 08/02/19 12:06 08/10/19 10:25 Betadine 10% Solution - TP 1 applic DAILY [facility] Administration Tramadol HCl 50 mg 08/10/19 16:00 Ultram - PEG Q8H [facility] Vancomycin HCl 125 mg 08/01/19 18:00 08/10/19 13:54 Vancomycin Oral Solution PO Not Given Q6HPO [facility] Laboratory Results - last 24 hr 08/10/19 08/10/19 08/10/19 06:58 12:50 12:50 WBC 10.7 H RBC 3.56 L Hgb 9.2 L Hct 28.9 L MCV 81.2 MCH 26.0 MCHC 31.9 L RDW 19.9 H Plt Count 270 MPV 8.7 Absolute Neuts (auto) 7.9 Neutrophils % 74.4 Lymphocytes % 6.5 L Monocytes % 13.2 H Eosinophils % 4.8 H D Basophils % 1.1 Nucleated RBC % 0 PT with INR 15.30 H INR 1.29 H PTT (Actin FS) 33.2 Sodium Potassium Chloride Carbon Dioxide Anion Gap BUN Creatinine Est GFR (CKD-EPI)AfAm Est GFR (CKD-EPI)NonAf Random Glucose Calcium Total Bilirubin AST ALT Alkaline Phosphatase Total Protein Albumin TSH 2.76 Free T4 1.39 H 08/10/19 12:50 WBC RBC Hgb Hct MCV MCH MCHC RDW Plt Count MPV Absolute Neuts (auto) Neutrophils % Lymphocytes % Monocytes % Eosinophils % Basophils % Nucleated RBC % PT with INR INR PTT (Actin FS) Sodium 138 Potassium 3.5 Chloride 100 Carbon Dioxide 27 Anion Gap 11 BUN 84.0 H Creatinine 5.5 H Est GFR (CKD-EPI)AfAm 12.27 Est GFR (CKD-EPI)NonAf 10.59 Random Glucose 86 Calcium 9.5 Total Bilirubin 0.3 AST 180 H ALT 275 H Alkaline Phosphatase 165 H Total Protein 7.0 Albumin 1.9 L TSH Free T4 07/25/19 17:46 Blood - Peripheral Venous Blood Culture - Final NO GROWTH AFTER 5 DAYS INCUBATION 07/25/19 17:46 Blood - Peripheral Venous Blood Culture - Final NO GROWTH AFTER 5 DAYS INCUBATION 07/26/19 15:00 Peg Site Gram Stain - Final 07/26/19 15:00 Peg Site Wound Culture - Final Pseudomonas Aeruginosa Yeast Like Organism Enterococcus Faecalis 07/26/19 05:30 Sputum - Expectorated Gram Stain - Final 07/26/19 05:30 Sputum - Expectorated Sputum Culture - Final Pseudomonas Aeruginosa 07/25/19 20:26 Urine - Urine Clean Catch Urine Culture - Final NO GROWTH OBTAINED S1 S2 RRR Lungs decreased Abd- soft,decreased tenderness left LQ+ No edema PLAN iv antibiotics __>dc increase feeds, free water continue BP better Lopressor increased to tid-- rates are better controlled noted elevated LFT-->likely due to Tylenol-- will dc it and start on tramadol for pain relief continue with po vanco no intervention from vascular with regards to permacath Problem List - Problems (1) CHF (congestive heart failure) Code(s): I50.9 - HEART FAILURE, UNSPECIFIED (2) COPD (chronic obstructive pulmonary disease) Code(s): J44.9 - CHRONIC OBSTRUCTIVE PULMONARY DISEASE, UNSPECIFIED (3) Elevated liver enzymes Code(s): R74.8 - ABNORMAL LEVELS OF OTHER SERUM ENZYMES (4) Sepsis Code(s): A41.9 - SEPSIS, UNSPECIFIED ORGANISM Qualifiers: Sepsis type: sepsis due to unspecified organism Sepsis acute organ dysfunction status: unspecified Qualified Code(s): A41.9 - Sepsis, unspecified organism (5) Acute metabolic encephalopathy Code(s): G93.41 - METABOLIC ENCEPHALOPATHY (6) ESRD (end stage renal disease) on dialysis Code(s): N18.6 - END STAGE RENAL DISEASE; Z99.2 - DEPENDENCE ON RENAL DIALYSIS (7) Elevated LFTs Code(s): R94.5 - ABNORMAL RESULTS OF LIVER FUNCTION STUDIES
--- NOTE | 2019-08-10 16:17 | PN ---
Progress Note, Physician History of Present Illness: [facility] and examined [facility]. no overnight events. no new complaints. - Current Medication List Current Medications: Active Medications Allopurinol (Zyloprim -) 100 mg PEG DAILY [facility] Last Admin: 08/10/19 09:59 Dose: Not Given Amino Acids (Prosource No Carb Liquid Pkt) 30 ml PO BID@0800,1730 [facility] Last Admin: 08/10/19 09:59 Dose: Not Given Collagenase (Santyl -) 1 applic TP DAILY [facility]; Protocol Last Admin: 08/10/19 10:26 Dose: 1 applic Metoprolol Tartrate (Lopressor -) 25 mg GT TID [facility] Last Admin: 08/10/19 13:54 Dose: Not Given Povidone Iodine (Betadine 10% Solution -) 1 applic TP DAILY [facility] Last Admin: 08/10/19 10:25 Dose: 1 applic Tramadol HCl (Ultram -) 50 mg PEG Q8H [facility] Vancomycin HCl (Vancomycin Oral Solution) 125 mg PO Q6HPO [facility] Last Admin: 08/10/19 13:54 Dose: Not Given - Objective Vital Signs: Vital Signs Temperature 98.6 F 08/10/19 14:15 Pulse Rate 110 H 08/10/19 14:15 Respiratory Rate 18 08/10/19 14:15 Blood Pressure 106/72 08/10/19 14:15 O2 Sat by Pulse Oximetry (%) 98 08/09/19 21:00 Constitutional: Yes: No Distress, Calm Eyes: Yes: Conjunctiva Clear, EOM Intact HENT: Yes: Atraumatic, Normocephalic Neck: Yes: Supple, Trachea Midline Cardiovascular: Yes: Tachycardia, S1, S2. No: Regular Rate and Rhythm, Bradycardia, Pulse Irregular, Bruit, JVD, Gallop, Murmur, Rub, S3, S4, Varicosities Respiratory: Yes: Regular. No: Rales, Rhonchi, Wheezes Gastrointestinal: Yes: Normal Bowel Sounds, Soft. No: Distention, Tenderness Edema: No Peripheral Pulses WNL: Yes Peripheral Pulses: Left Doralis Pedis: 2+, Right Dorsalis Pedis: 2+ Neurological: Yes: Alert Psychiatric: Yes: Alert Labs: CBC, BMP 08/10/19 12:50 08/10/19 12:50 INR, PTT INR 1.29 (0.83-1.09) H 08/10/19 12:50 - ....Imaging Chest X-ray: Report Reviewed, Image Reviewed EKG: Report Reviewed, Image Reviewed Other: Report Reviewed, Image Reviewed (tele-NSR, sinus tach 100s-110s) Assessment/Plan 59 year old male, decreased mental status, PMH of ESRD (, , ), HTN, HLD, CHF, COPD, gout, Bipolar Disorder, and schizophrenia presents from [place] during dialysis session BIBEMS due to tachycardia and hypotension. The HR was in the 140'sand the BP was 90/60 mmHg. He has a permacath and a G tube. Temp 101.4. Tachycardia-persistent tachycardia throughout admission. -Sinus tach -Metoprolol was increased to 25mg TID from BID -HR has improved and is adequate now 90s-110s -do not want to aggressively lower HR further with medication -tele not c/w SVT -echocardiogram 07/03/19 EF was 55-60%, no need to repeat an echo at this time. -TSH nl, Free T4 mildly elevated, presume not source of tachycardia -pt would be acceptable for discharge from a cardiac standpoint.
[2019-08-10] MEDS: traMADol HCL 50 MG TABLET PEG SCH (17:57)
[2019-08-11] MEDS: traMADol HCL 50 MG TABLET PEG SCH ×3 (00:23→15:10)
[2019-08-11] MEDS: VANCOMYCIN 250 MG/5 ML ORAL SOLUTION PO SCH ×3 (00:24→11:29)
[2019-08-11] MEDS: METOPROLOL TARTRATE 25 MG TABLET (FP) GT SCH ×2 (06:19→15:10)
--- NOTE | 2019-08-11 10:51 | PN ---
Progress Note (short form) - Note Progress Note: pt seen/ examined chart reviewed awake/ comfortable being dialyzed. Labs-- Noted -- significant elevation of LFTS pt comfortable Denies pain on asking Vital Signs Temp 97.6 F 08/11/19 09:05 Pulse 112 H 08/11/19 10:05 Resp 18 08/11/19 10:05 BP 99/51 L 08/11/19 10:05 Pulse Ox 97 08/10/19 21:00 Intake & Output 08/10/19 08/10/19 08/11/19 11:59 23:59 11:59 Intake Total 800 200 500 Output Total 1500 Balance 800 200 -1000 Intake: IV 500 Normal Saline - 250 ml @ 200 3000 mls/hr IV PRN PRN Rx #:[id number] RH #22 08/07 300 Tube Feeding 500 125 Tube Irrigant 300 75 Output: Fluid Removed, 1500 Hemodialysis Other: Voiding Method Incontinent Incontinent # Unmeasured Voids Void 2 2 2 Bowel Movement Yes: yellow brown pasty/mucoid Yes: small Yes # Bowel Movements 2 1 1 Active Medications Allopurinol (Zyloprim -) 100 mg PEG DAILY [facility] Last Admin: 08/10/19 09:59 Dose: Not Given Amino Acids (Prosource No Carb Liquid Pkt) 30 ml PO BID@0800,1730 [facility] Last Admin: 08/10/19 18:03 Dose: 30 ml Collagenase (Santyl -) 1 applic TP DAILY [facility]; Protocol Last Admin: 08/10/19 10:26 Dose: 1 applic Metoprolol Tartrate (Lopressor -) 25 mg GT TID [facility] Last Admin: 08/11/19 06:19 Dose: 25 mg Povidone Iodine (Betadine 10% Solution -) 1 applic TP DAILY [facility] Last Admin: 08/10/19 10:25 Dose: 1 applic Tramadol HCl (Ultram -) 50 mg PEG Q8H [facility] Last Admin: 08/11/19 00:23 Dose: 50 mg Vancomycin HCl (Vancomycin Oral Solution) 125 mg PO Q6HPO [facility] Last Admin: 08/11/19 06:20 Dose: 125 mg Hepatic Panel Total Bilirubin 0.3 mg/dL (0.2-1) 08/10/19 12:50 AST 180 U/L (15-37) H 08/10/19 12:50 ALT 275 U/L (13-61) H 08/10/19 12:50 Alkaline Phosphatase 165 U/L (45-117) H 08/10/19 12:50 Albumin 1.9 g/dl (3.4-5.0) L 08/10/19 12:50 ClCBC, BMP 08/10/19 12:50 08/10/19 12:50 Physical awake Chronic ill appearance S1 S2 RRR Lungs decreased Abd- soft No edema a/p Clinically stable Elevated LFts today-- Monitor Labs today if Improved lfts- d/c to prison later today and monitor in prison d/w rn also
[2019-08-11] MEDS: AMINO ACIDS/PROTEIN HYDROLYS 30 ML LIQUID.PKT PO SCH (11:24)
[2019-08-11] MEDS: ALLOPURINOL 100 MG TABLET (FP) PEG SCH (11:26)
[2019-08-11] MEDS: COLLAGENASE CLOSTRIDIUM HIST. 30 GRAMS TUBE TP SCH (11:28)
[2019-08-11] MEDS: POVIDONE-IODINE 10% SOLN 118 ML BOTTLE TP SCH (11:28)
--- NOTE | 2019-08-11 12:24 | PN ---
Progress Note, Physician History of Present Illness: Pt seen and examined at bedside. He is awake and appears comfortable. - Current Medication List Current Medications: Active Medications Allopurinol (Zyloprim -) 100 mg PEG DAILY [facility] Last Admin: 08/11/19 11:26 Dose: 100 mg Amino Acids (Prosource No Carb Liquid Pkt) 30 ml PO BID@0800,1730 [facility] Last Admin: 08/11/19 11:24 Dose: 30 ml Collagenase (Santyl -) 1 applic TP DAILY [facility]; Protocol Last Admin: 08/11/19 11:28 Dose: 1 applic Metoprolol Tartrate (Lopressor -) 25 mg GT TID [facility] Last Admin: 08/11/19 06:19 Dose: 25 mg Povidone Iodine (Betadine 10% Solution -) 1 applic TP DAILY [facility] Last Admin: 08/11/19 11:28 Dose: 1 applic Tramadol HCl (Ultram -) 50 mg PEG Q8H [facility] Last Admin: 08/11/19 11:26 Dose: 50 mg Vancomycin HCl (Vancomycin Oral Solution) 125 mg PO Q6HPO [facility] Last Admin: 08/11/19 11:29 Dose: 125 mg - Objective Vital Signs: Vital Signs Temperature 97.6 F 08/11/19 09:05 Pulse Rate 112 H 08/11/19 10:05 Respiratory Rate 18 08/11/19 10:05 Blood Pressure 99/51 L 08/11/19 10:05 O2 Sat by Pulse Oximetry (%) 97 08/10/19 21:00 Constitutional: Yes: Calm Eyes: Yes: Conjunctiva Clear HENT: Yes: Atraumatic Neck: Yes: Supple Cardiovascular: Yes: S1, S2 Respiratory: Yes: CTA Bilaterally Gastrointestinal: Yes: Soft Genitourinary: Yes: Incontinence Musculoskeletal: Yes: Muscle Weakness Edema: No Integumentary: Yes: WNL Neurological: Yes: Confusion Labs: CBC, BMP 08/10/19 12:50 08/10/19 12:50 INR, PTT INR 1.29 (0.83-1.09) H 08/10/19 12:50 Problem List - Problems (1) CHF (congestive heart failure) Code(s): I50.9 - HEART FAILURE, UNSPECIFIED (2) COPD (chronic obstructive pulmonary disease) Code(s): J44.9 - CHRONIC OBSTRUCTIVE PULMONARY DISEASE, UNSPECIFIED (3) ESRD (end stage renal disease) on dialysis Code(s): N18.6 - END STAGE RENAL DISEASE; Z99.2 - DEPENDENCE ON RENAL DIALYSIS Assessment/Plan Current Medications Generic Name Dose Route Start Last Admin Trade Name Vandana PRN Reason Stop Dose Admin Allopurinol 100 mg 07/26/19 10:00 08/11/19 11:26 Zyloprim - PEG 100 mg DAILY [facility] Administration Amino Acids 30 ml 07/26/19 17:30 08/11/19 11:24 Prosource No Carb Liquid Pkt PO 30 ml BID@0800,1730 [facility] Administration Collagenase 1 applic 07/26/19 10:00 08/11/19 11:28 Santyl - TP 1 applic DAILY [facility] Administration Protocol Metoprolol Tartrate 25 mg 08/09/19 22:00 08/11/19 06:19 Lopressor - GT 25 mg TID [facility] Administration Povidone Iodine 1 applic 08/02/19 12:06 08/11/19 11:28 Betadine 10% Solution - TP 1 applic DAILY [facility] Administration Tramadol HCl 50 mg 08/10/19 16:00 08/11/19 11:26 Ultram - PEG 50 mg Q8H [facility] Administration Vancomycin HCl 125 mg 08/01/19 18:00 08/11/19 11:29 Vancomycin Oral Solution PO 125 mg Q6HPO [facility]ONAL[facility] Administration Impression 1. ESRD 2. sepsis 3. gout 4. HTN 5. CHF 6. DM 7. hx bipolar 8. MOLLY 9. non compliance 10. c. diff 11. lactic acidosis 12. new onset a-fib 13. hypokalemia Plan - discussed with vascular yesterday, anahi was in position - HD today - pt had HD set up as outpt - epogen for anemia
[2019-08-11 12:54] LABS: BASO % 0.8 % (0-2.0); EOS % 4.2 % (0-4.5); HEMATOCRIT 29.2 % (35.4-49); HEMOGLOBIN 9.2 GM/dL (11.7-16.9); LYMPH % 6.6 % (8-40); MCH 25.7 pg (25.7-33.7); MCHC 31.5 g/dl (32.0-35.9); MEAN CELL VOLUME 81.8 fl (80-96); MEAN PLT VOLUME 8.8 fl (7.5-11.1); MONO % 12.9 % (3.8-10.2); NEUT % 75.5 % (42.8-82.8); PLATELET COUNT 324 K/MM3 (134-434); RBC 3.57 M/mm3 (4.00-5.60); RDW 20.1 % (11.9-15.9); WHITE BLOOD COUNT 8.7 K/mm3 (4.0-10.0)
[2019-08-11 13:26] LABS: ALBUMIN 1.9 g/dl (3.4-5.0); BILIRUBIN,TOTAL 0.4 mg/dL (0.2-1); BLOOD UREA NITROGEN 38.3 mg/dL (7-18); CALCIUM 9.5 mg/dL (8.5-10.1); CREATININE 3.3 mg/dL (0.55-1.3); POTASSIUM 3.9 mmol/L (3.5-5.1); TOT PROT 7.1 g/dl (6.4-8.2)
--- NOTE | 2019-08-11 14:07 | DS ---
Physical Examination Vital Signs: Vital Signs Temperature 97.6 F 08/11/19 09:05 Pulse Rate 112 H 08/11/19 10:05 Respiratory Rate 18 08/11/19 10:05 Blood Pressure 99/51 L 08/11/19 10:05 O2 Sat by Pulse Oximetry (%) 97 08/10/19 21:00 Findings/Remarks: see today progress note Labs: CBC, BMP 08/11/19 12:10 08/11/19 12:10 Discharge Summary Problems reviewed: Yes Reason For Visit: SEPSIS , PNEUMONIA Current Active Problems CHF (congestive heart failure) (Acute) COPD (chronic obstructive pulmonary disease) (Acute) Colon wall thickening (Acute) Elevated liver enzymes (Acute) Hospital-acquired pneumonia (Acute) Hypertension (Acute) Sacral decubitus ulcer, stage III (Acute) Sepsis (Acute) Hospital Course: - Admission Chief Complaint: hypotension, tachycardia History of Present Illness: 59 year old morbidly obese male from [place] who is non-verbal with a PMHx of ESRD ( , , ), HTN, HLD, CHF, COPD, Gout, Bipolar Disorder, and schizophrenia arrived to Emergency department for hypotension and tachycardia. Patient vitals prior to having dialysis were HR 140s and BP 90/60 which prompted ED visit. In ED patient noted with Hr in 140s BP fluctuating (90/60 -- 100/60). Patient does not speak, occasionally shakes his head and answers "yes" to some questions. Patient has right perma-cath for dialysis, and G-tube. History is limited due to mental state Hospital course Pt admitted for sepsis- possible pneumonia , colitis CT abdomen-- colitis has diarrhea Seen by ID, renal and GI Started on Iv antibiotics-->cefepime Stool positive for cdiff seen by cardiology for elevated HR-- due to sepsis start GT vanco Restarted on Metoprolol today pt is stable for dc to [place] sputum culture pseudomonas Health Concerns: Pt admitted for fever/ hypotension Multiple admissions DIagnosed with c diff colitis Treated with abx i/d followed Impression/ In summary 1. ESRD 2. sepsis 3. gout 4. HTN 5. CHF 6. DM 7. hx bipolar 8. MOLLY 9. non compliance 10. c. diff colitis 11. lactic acidosis Lfts better d/c to half-way today Condition: Guarded - Instructions Referrals: Earnestine Shah MD [Primary Care Provider] - Disposition: [facility] - Home Medications Comprehensive Discharge Medication List: Ambulatory Orders Allopurinol [Zyloprim -] 100 mg PO DAILY 03/08/19 Zinc Sulfate 220 mg PO DAILY 03/08/19 Collagenase Clostridium Hist. [Santyl -] 1 applic TP BID 07/01/19 Folic Acid 1 mg PO DAILY 07/01/19 Folic Acid/Vit B Complex and C [Dialyvite Tablet] 1 each PO DAILY 07/01/19 Aspirin [ASA -] 81 mg GT DAILY #30 tab.chew 07/13/19 Collagenase Clostridium Hist. [Santyl -] 1 applic TP DAILY #1 tube 07/13/19 Albuterol 0.083% Nebulizer Jaclyn [Ventolin 0.083% Nebulizer Soln -] 1 neb NEB Q4H PRN 07/26/19 Vancomycin Oral Solution 125 mg PO Q6HPO #100 ml 08/02/19 Amino Acids/Protein Hydrolys [Prosource No Carb Liquid Pkt] 30 ml PO BID@0800, 1730 #20 packet 08/10/19 Metoprolol Tartrate [Lopressor -] 25 mg GT TID #60 tablet 08/10/19 traMADol HCL [Ultram -] 50 mg PEG Q12H #60 tablet MDD 2 08/10/19 Metoprolol Tartrate [Lopressor -] 25 mg GT TID tablet 08/11/19 Povidone-Iodine [Betadine -] 1 applic TP DAILY bottle 08/11/19
--- NOTE | 2019-08-11 15:12 | PN ---
Progress Note, Physician History of Present Illness: no overnight events. no new complaints. - Current Medication List Current Medications: Active Medications Allopurinol (Zyloprim -) 100 mg PEG DAILY [facility] Last Admin: 08/11/19 11:26 Dose: 100 mg Amino Acids (Prosource No Carb Liquid Pkt) 30 ml PO BID@0800,1730 [facility] Last Admin: 08/11/19 11:24 Dose: 30 ml Collagenase (Santyl -) 1 applic TP DAILY [facility]; Protocol Last Admin: 08/11/19 11:28 Dose: 1 applic Metoprolol Tartrate (Lopressor -) 25 mg GT TID [facility] Last Admin: 08/11/19 06:19 Dose: 25 mg Povidone Iodine (Betadine 10% Solution -) 1 applic TP DAILY [facility] Last Admin: 08/11/19 11:28 Dose: 1 applic Tramadol HCl (Ultram -) 50 mg PEG Q8H [facility] Last Admin: 08/11/19 11:26 Dose: 50 mg Vancomycin HCl (Vancomycin Oral Solution) 125 mg PO Q6HPO [facility] Last Admin: 08/11/19 11:29 Dose: 125 mg - Objective Vital Signs: Vital Signs Temperature 97.6 F 08/11/19 09:05 Pulse Rate 112 H 08/11/19 10:05 Respiratory Rate 18 08/11/19 10:05 Blood Pressure 99/51 L 08/11/19 10:05 O2 Sat by Pulse Oximetry (%) 97 08/10/19 21:00 Constitutional: Yes: No Distress, Calm Cardiovascular: Yes: Tachycardia, S1, S2. No: Regular Rate and Rhythm, Bradycardia, Pulse Irregular, Bruit, JVD, Gallop, Murmur, Rub, S3, S4, Varicosities Respiratory: Yes: Regular. No: Rales, Rhonchi, SOB Gastrointestinal: Yes: Normal Bowel Sounds Edema: No Peripheral Pulses WNL: Yes Neurological: Yes: Alert Psychiatric: Yes: Alert Labs: CBC, BMP 08/11/19 12:10 08/11/19 12:10 INR, PTT INR 1.29 (0.83-1.09) H 08/10/19 12:50 - ....Imaging Chest X-ray: Report Reviewed, Image Reviewed EKG: Report Reviewed, Image Reviewed Other: Report Reviewed, Image Reviewed (tele-nsr, sinus tach) Assessment/Plan 59 year old male, decreased mental status, PMH of ESRD (, , ), HTN, HLD, CHF, COPD, gout, Bipolar Disorder, and schizophrenia presents from [place] during dialysis session BIBEMS due to tachycardia and hypotension. The HR was in the 140'sand the BP was 90/60 mmHg. He has a permacath and a G tube. Temp 101.4. Tachycardia-persistent tachycardia throughout admission. -Sinus tach -Metoprolol was increased to 25mg TID from BID -HR has improved and is adequate now 90s-110s -do not want to aggressively lower HR further with medication -tele not c/w SVT -echocardiogram 07/03/19 EF was 55-60%, no need to repeat an echo at this time. -TSH nl, Free T4 mildly elevated, presume not source of tachycardia -pt would be acceptable for discharge from a cardiac standpoint. -outpatient fup
[2019-08-11 16:15] VITALS: BP 115/74; PULSE 110; TEMP 97.4
== END 2019-08-11 17:35 | DRG 871 ==
LOC: JER 15:36 → JERBED 18:56 → J4S 19:54
PROVIDERS: ADMIT Internal Medicine; ATTEND Internal Medicine
PROC: 30233N1 Transfusion of Nonautologous Red Blood Cells into Peripheral Vein, Percutaneous Approach (ICD-10-PCS; 2019-07-28)
PROC: 5A1D70Z Performance of Urinary Filtration, Intermittent, Less than 6 Hours Per Day (ICD-10-PCS; principal; 2019-08-11)
DX: A41.52 Sepsis due to Pseudomonas (principal); J15.1 Pneumonia due to Pseudomonas; L89.153 Pressure ulcer of sacral region, stage 3; N18.6 End stage renal disease; G93.41 Metabolic encephalopathy; E43 Unspecified severe protein-calorie malnutrition; R53.2 Functional quadriplegia; I32 Pericarditis in diseases classified elsewhere; A04.72 Enterocolitis due to Clostridium difficile, not specified as recurrent; E87.2 Acidosis; I13.2 Hypertensive heart and chronic kidney disease with heart failure and with stage 5 chronic kidney disease, or end stage renal disease; E66.01 Morbid (severe) obesity due to excess calories; Z68.34 Body mass index [BMI] 34.0-34.9, adult; R00.0 Tachycardia, unspecified; I95.9 Hypotension, unspecified; J44.9 Chronic obstructive pulmonary disease, unspecified; F31.9 Bipolar disorder, unspecified; D64.9 Anemia, unspecified; Z93.1 Gastrostomy status; Z99.2 Dependence on renal dialysis; G47.33 Obstructive sleep apnea (adult) (pediatric); E11.22 Type 2 diabetes mellitus with diabetic chronic kidney disease; M10.9 Gout, unspecified; I50.9 Heart failure, unspecified; I48.91 Unspecified atrial fibrillation; E87.6 Hypokalemia; R94.5 Abnormal results of liver function studies; E66.9 Obesity, unspecified; Z68.31 Body mass index [BMI] 31.0-31.9, adult; E78.5 Hyperlipidemia, unspecified; F20.9 Schizophrenia, unspecified
CPT/HCPCS: 36415; 36430; 71045-TC-FY; 74150-TC; 76705-TC; 80048; 80053; 81003; 82550; 82553; 82728; 82803; 82962; 83540; 83550; 83605; 83735; 84100; 84132; 84439; 84443; 84484; 85025; 85027; 85610; 85730; 86803; 86850; 86900; 86901; 86922; 87040; 87070; 87086; 87186; 87205; 87324; 87340; 87449; 93005; 93010; 94640; 99285-25; G0008; G0480; J0131; J0885; J1644; J2997; P9058; Q2036

== ENCOUNTER 2019-09-30 12:59 | Inpatient (IN) | payer OTHER ==
[2019-09-30] MEDS ORDERED: SODIUM CHLORIDE IV ONE (13:30)
--- NOTE | 2019-09-30 13:48 | PDOC ---
History of Present Illness - General Chief Complaint: SIRS, Suspected/Possible Stated Complaint: GI TUBE REPLACEMENT Time Seen by Provider: 09/30/19 13:30 History Source: Detention Records, Old Records, Unavil. due to pt. cond. Exam Limitations: Clinical Condition - History of Present Illness Initial Comments: 09/30/19 13:44 PCP: Tanya Shah GI: Previous seen by Dr. Fernandez and Dr. Pritchett Renal: Dr. Raphael HPI: 59yo M minimally verbal baseline per chart with hx of ESRD (, , ), HTN, HLD, CHF, COPD, gout, Bipolar Disorder, and schizophrenia presents from [place] during dialysis session BIBEMS from [facility] s/p pulling his G-tube. In the department, found to be tachycardic, tachypnic, febrile to 100.6. States "short of breath" but unable to elicit further information from patient directly. Admissions in June and July 2019 for PEG complications including pseudomonal infection with abscess. Per records: PEG placed 04/07/[address] Santos Fernandez and PEG was exchanged by Dr. Portillo IR on 07/05/19. Unable to identify what size PEG tube was previously placed. No information regarding how long ago the tube was removed provided by [facility]. All: NKDA Meds: Per chart PMH: As above PSH: PEG placement Past History - Travel Traveled outside of the country in the last 30 days: No Close contact w/someone who was outside of country & ill: No - Past Medical History Allergies/Adverse Reactions: Allergies Allergy/AdvReac Type Severity Reaction Status Date / Time No Known Allergies Allergy Verified 07/01/19 12:38 Home Medications: Ambulatory Orders Acetaminophen [Tylenol] 650 mg GT ASDIR 09/30/19 Albuterol 0.083% Nebulizer Jaclyn [Ventolin 0.083%] 1 neb NEB Q4H PRN 09/30/19 Allopurinol [Zyloprim -] 100 mg GT DAILY 09/30/19 Aspirin [Adult Aspirin Regimen] 81 mg GT DAILY 09/30/19 Atorvastatin Calcium 40 mg GT HS 09/30/19 Collagenase Clostridium Hist. [Santyl] 1 applic TP DAILY 09/30/19 Folic Acid - 1 mg GT DAILY 09/30/19 Metoprolol Tartrate [Lopressor -] 50 mg GT Q8H 09/30/19 Vitamin B Comp W-C [Nephro-Lulu -] 1 tablet GT DAILY 09/30/19 Zinc Sulfate [Zinc-220] 220 mg GT DAILY 09/30/19 traMADol HCL [Ultram -] 50 mg GT BID PRN 09/30/19 Anemia: Yes Cardiac Disorders: Yes (chest pain) COPD: Yes CHF: Yes Diabetes: Yes GI Disorders: Yes (gerd) Disorders: Yes (ESRD) HTN: Yes Hypercholesterolemia: Yes Psychiatric Problems: Yes (bipolar) - Surgical History Abdominal Surgery: Yes (peg tube) Neurologic Surgery: No - Immunization History Td Vaccination: Yes TDAP Vaccination: Yes Immunization Up to Date: Yes - Psycho Social/Smoking Cessation Hx Smoking History: Unknown if ever smoked Have you smoked in the past 12 months: No Number of Cigarettes Smoked Daily: 0 Hx Alcohol Use: No Drug/Substance Use Hx: No (unk) Substance Use Type: None Hx Substance Use Treatment: No (unk) Review of Systems - Review of Systems Able to Perform ROS?: No (Limited 2/2 Pt MSE) *Physical Exam - Vital Signs Last Vital Signs Temp Pulse Resp BP Pulse Ox 100.6 F H 122 H 28 H 111/76 100 09/30/19 13:18 09/30/19 13:18 09/30/19 13:18 09/30/19 13:18 09/30/19 13:18 - Physical Exam 09/30/19 13:47 Vitals reviewed, febrile, tachycardic, tachypnic - Meets sepsis criteria GEN: Coughing, appears stated age, mild distress, uncomfortable. HEENT: NCAT, EOMI, PERRL. Sclera anicteric, noninjected. No facial asymmetry. Moist mucous membranes. Normal voice. Trachea midline. CV: RRR, S1/S2, no murmurs / rubs / gallops appreciated. LUNG: No wheezes, rales, rhonchi. +cough GI: Soft, NTND, +BS, no guarding, no rebound, + missing peg tube, site is non- tender / non-erythematous / non-tender, regional of induration left of umbilicus , no fluctuance. EXTREMITIES: 2+ distal pulses. No LE edema. No obvious deformities of all extremities. SKIN: Warm, dry, no rashes appreciated, non-jaundiced. NEURO: CN grossly intact. Procedures - Additional Procedures Additional Procedures: gastric tube replacement (Size 18F placed without complication) ED Treatment Course - LABORATORY CBC & Chemistry Diagram: 09/30/19 13:50 09/30/19 13:50 - RADIOLOGY Radiology Studies Ordered: Category Date Time Status CHEST X-RAY PORTABLE* [RAD] Stat Radiology 09/30/19 13:30 Ordered Medical Decision Making - Medical Decision Making 09/30/19 13:48 59yo M minimally verbal baseline per chart with hx of ESRD (, , ), HTN, HLD, CHF, COPD, gout, Bipolar Disorder, and schizophrenia presents from [place] during dialysis session BIBEMS from [facility] s/p pulling his G-tube. Found to meet sepsis criteria, cough making PNA likely source, also with purulent fluid drainage at Gtube side (cultured), with sacral ulceration per nursing staff. G- tube replaced by myself, 18F. - Septic Workup - Holding IVF given ESRD - G-tube replacement 09/30/19 14:33 - Culture swab obtained, low suspicion of infection - 18F Peg tube placed without difficulty - Gastrografin study ordered to evaluate placement 09/30/19 14:44 - Lactate 2.5 09/30/19 15:50 - Leukocytosis, Anemia - Hyponatremia - Elevated LFTs 09/30/19 15:52 - CXR unchanged from prior, patient with cough still suspicious for PNA - Wound culture from PEG site sent - Patient does not make much urine, ESRD - small volume obtained for culture - G-tube placement confirmed via Xray Admit Sepsis Discharge - Discharge Information Problems reviewed: Yes Clinical Impression/Diagnosis: ESRD (end stage renal disease) on dialysis, Transaminitis Sepsis Qualifiers: Sepsis type: sepsis due to unspecified organism Sepsis acute organ dysfunction status: unspecified Qualified Code(s): A41.9 - Sepsis, unspecified organism Condition: Guarded - Admission Yes - Follow up/Referral Referrals: Earnestine Shah MD [Primary Care Provider] - - Patient Discharge Instructions - Post Discharge Activity
[2019-09-30] MEDS ORDERED: ACETAMINOPHEN INJECTION 100 ML IVPB ONE (13:59)
[2019-09-30] MEDS ORDERED: ACETAMINOPHEN 1000 MG/100 ML VIAL (NON FORMULARY) IVPB ONE (14:00)
[2019-09-30 14:40] LABS: VENOUS PC02 33.4 mmHg (38-52); VENOUS PH 7.46 (7.31-7.41); VENOUS PO2 88.4 mmHg (28-48)
[2019-09-30 14:47] LABS: BASO % 0.4 % (0-2.0); EOS % 1.6 % (0-4.5); HEMATOCRIT 23.3 % (35.4-49); HEMOGLOBIN 7.2 GM/dL (11.7-16.9); LYMPH % 4.2 % (8-40); MCH 25.1 pg (25.7-33.7); MCHC 30.9 g/dl (32.0-35.9); MEAN CELL VOLUME 81.2 fl (80-96); MEAN PLT VOLUME 8.6 fl (7.5-11.1); NEUT % 79.8 % (42.8-82.8); PLATELET COUNT 345 K/MM3 (134-434); RBC 2.87 M/mm3 (4.00-5.60); RDW 21.2 % (11.9-15.9); WHITE BLOOD COUNT 17.1 K/mm3 (4.0-10.0)
[2019-09-30] MEDS ORDERED: SODIUM CHLORIDE 250 ML IV STA (14:47)
[2019-09-30 14:57] LABS: INR 1.33 (0.83-1.09); PROTHROMBIN TIME (PATIENT) 15.7 SEC (9.7-13.0)
[2019-09-30 14:59] LABS: ACTIVATED PTT 33.1 SECONDS (25.2-36.5)
[2019-09-30 15:41] LABS: ALBUMIN 1.5 g/dl (3.4-5.0); ALK PHOS 233 U/L (45-117); ANION GAP 13 MMOL/L (8-16); BILIRUBIN,TOTAL 0.4 mg/dL (0.2-1); CALCIUM 10.3 mg/dL (8.5-10.1); CHLORIDE 96 mmol/L (98-107); CO2 25 mmol/L (21-32); CREATININE 4.6 mg/dL (0.55-1.3); GLUCOSE,RANDOM 102 mg/dL (74-106); POTASSIUM 3.5 mmol/L (3.5-5.1); SGOT/AST 156 U/L (15-37); SGPT/ALT 165 U/L (13-61); SODIUM 134 mmol/L (136-145); TOT PROT 7.2 g/dl (6.4-8.2)
[2019-09-30 15:53] LABS: BLOOD UREA NITROGEN 106.2 mg/dL (7-18)
[2019-09-30 16:38] LABS: ANISOCYTOSIS 2+; PLATELET ESTIMATE ADEQUATE
--- NOTE | 2019-09-30 17:13 | PDOC ---
Attending Attestation - Resident Resident Name: Eloy Gavin - ED Attending Attestation I have performed the following: I have examined & evaluated the patient, The case was reviewed & discussed with the resident, I agree w/resident's findings & plan, Exceptions are as noted - HPI HPI: 09/30/19 17:11 Mr. Pena is a 59 yo M who presents to the ER for PEG tube replacement, found to have fever He is minimally verbal baseline per chart with hx of ESRD (, , ), HTN, HLD , CHF, COPD, gout, Bipolar Disorder, and schizophrenia presents from [place] during dialysis session BIBEMS from [facility] s/p pulling his G-tube. History is limited from this patient All: NKDA Meds: Per chart PMH: As above PSH: PEG placement - Physicial Exam PE: 09/30/19 17:13 GEN: Coughing, appears stated age, no distress HEENT: NCAT, EOMI, PERRL. Sclera anicteric, noninjected. No facial asymmetry. Moist mucous membranes. Normal voice. Trachea midline. CV: RRR, S1/S2, no murmurs / rubs / gallops appreciated. LUNG: No wheezes, rales, rhonchi. +cough GI: Soft, NTND, +BS, no guarding, no rebound, G tube in place, no surrounding erythema or drainage EXTREMITIES: 2+ distal pulses. No LE edema. No obvious deformities of all extremities. SKIN: Warm, dry, no rashes appreciated NEURO: Pt interacts with examiner, attempts to speak (non verbal), CN grossly intact. - Medical Decision Making 09/30/19 17:15 59 yo M Fever EKG: ST rate of 118 bpm, LAD, no st elevation or depression, low voltage Laboratory Tests 09/30/19 09/30/19 09/30/19 13:50 13:50 13:50 WBC 17.1 H Hgb 7.2 L Hct 23.3 L D Plt Count 345 Neutrophils % 79.8 INR 1.33 H Potassium BUN Creatinine Lactic Acid 2.5 H* AST ALT Alkaline Phosphatase Troponin I Influenza A (Rapid) Influenza B (Rapid) 09/30/19 09/30/19 13:50 15:20 WBC Hgb Hct Plt Count Neutrophils % INR Potassium 3.5 BUN 106.2 H* Creatinine 4.6 H Lactic Acid AST 156 H ALT 165 H Alkaline Phosphatase 233 H Troponin I < 0.02 Influenza A (Rapid) Negative Influenza B (Rapid) Negative Pt is septic for ? source Urine culture - pending UA unable to obtain (little urine obtained) CXR - no infiltrate, similar to prior Sacral decubitus (? cellulitis vs underlying osteo???) 09/30/19 17:17 G tube replaced Will admit to Dr Shah
[2019-09-30] MEDS ORDERED: PIPERACILLIN/TAZOB 3.375 GM 3.375 GM in DEXTROSE 5%-WATER - 50 ML IVPB ONE (17:16)
[2019-09-30] MEDS ORDERED: VANCOMYCIN 1 GM in D5W (PRE-DOCKED) 1,000 MG/250 ML IVPB ONE (17:16)
[2019-09-30] MEDS ORDERED: VANCOMYCIN 1 GRAM (PRE-DOCKED) 1,000 MG/250 ML BAG IVPB ONE (17:51)
[2019-09-30] MEDS ORDERED: PIPERACILLIN/TAZOB 3.375 GM 3.375 GM/50 ML BAG IVPB ONE (17:51)
--- NOTE | 2019-09-30 19:48 | HP ---
Admitting History and Physical - Primary Care Physician PCP: Dr. Shah - Admission Chief Complaint: s/p pulled Peg, possible SIRS History of Present Illness: 59 year old male from [facility] minimally verbal at baseline per chart with PMHx of ESRD (, , ), HTN, HLD, CHF, COPD, gout, Bipolar Disorder, and schizophrenia arrived to ED via EMS for s/p dislodged G-tube (no reference to how long). While in ED patient noted tachycardic, tachypnic, febrile to 100.6 with SOB, however unable to elicit further information from patient directly. Last admission was in June and July 2019 for PEG complications including pseudomonal infection with abscess. Per medical record last PEG was exchanged by Dr. Portillo IR on 07/05/19. Unable to conduct ROS due to MSE. History Source: Medical Record, Transfer Record Limitations to Obtaining History: Physical Impairment (very limited verebally, also d/t MSE) - Past Medical History Cardiovascular: Yes: CHF, HTN, Hyperlipdemia Pulmonary: Yes: COPD Renal/: Yes: Renal Failure, Renal Inusuff, Hemodialysis Psych: Yes: Bipolar, Schizophrenia Rheumatology: Yes: Gout Dermatology: Yes: Other ( BL lateral maleoli pressure ulcers, sacral decub ulcer stage 3) - Past Surgical History Past Surgical History: Yes: None Additional Past Surgical History: s/p G-tube - Smoking History Smoking history: Unknown if ever smoked Have you smoked in the past 12 months: No Aproximately how many cigarettes per day: 0 - Alcohol/Substance Use Hx Alcohol Use: No History of Substance Use: reports: None - Social History Usual Living Arrangement: Yes: [facility] ADL: Support Services Occupation: disability History of Recent Travel: No Home Medications - Allergies Allergies/Adverse Reactions: Allergies Allergy/AdvReac Type Severity Reaction Status Date / Time No Known Allergies Allergy Verified 07/01/19 12:38 - Home Medications Home Medications: Ambulatory Orders Acetaminophen [Tylenol] 650 mg GT ASDIR 09/30/19 Albuterol 0.083% Nebulizer Jaclyn [Ventolin 0.083%] 1 neb NEB Q4H PRN 09/30/19 Allopurinol [Zyloprim -] 100 mg GT DAILY 09/30/19 Aspirin [Adult Aspirin Regimen] 81 mg GT DAILY 09/30/19 Atorvastatin Calcium 40 mg GT HS 09/30/19 Collagenase Clostridium Hist. [Santyl] 1 applic TP DAILY 09/30/19 Folic Acid - 1 mg GT DAILY 09/30/19 Metoprolol Tartrate [Lopressor -] 50 mg GT Q8H 09/30/19 Vitamin B Comp W-C [Nephro-Lulu -] 1 tablet GT DAILY 09/30/19 Zinc Sulfate [Zinc-220] 220 mg GT DAILY 09/30/19 traMADol HCL [Ultram -] 50 mg GT BID PRN 09/30/19 Family Medical History Family History: Unable to Obtain Review of Systems Unable to obtain ROS, reason: minimally verbal - Review of Systems Gastrointestinal: reports: Abdominal Pain (unable to provide any furhter elboration) Physical Examination Vital Signs: Vital Signs Temperature 98.3 F 09/30/19 18:32 Pulse Rate 109 H 09/30/19 18:42 Respiratory Rate 18 09/30/19 18:42 Blood Pressure 107/65 09/30/19 15:58 O2 Sat by Pulse Oximetry (%) 97 09/30/19 18:42 Constitutional: Yes: Mild Distress, Other ( febrile, tachycardic, tachypnic) Eyes: Yes: Conjunctiva Clear, EOM Intact HENT: Yes: Atraumatic, Normocephalic Neck: Yes: Supple, Trachea Midline Cardiovascular: Yes: Tachycardia, S1, S2 Respiratory: Yes: Regular, Cough Gastrointestinal: Yes: Normal Bowel Sounds, Soft, Abdomen, Obese, Tenderness, Other (+ missing peg tube) Musculoskeletal: Yes: WNL Extremities: Yes: WNL Edema: No Peripheral Pulses WNL: Yes Wound/Incision: Yes: Other (Sacral decubitus) Neurological: Yes: Alert, Confusion Labs: CBC, BMP 09/30/19 13:50 09/30/19 13:50 Imaging - Results Chest X-ray: Report Reviewed (CXR: no infiltrate) X-ray: Report Reviewed (s/p Peg tube insertion, XR shows functional tube, no acute finding) Problem List - Problems (1) Sepsis Code(s): A41.9 - SEPSIS, UNSPECIFIED ORGANISM Qualifiers: Sepsis type: sepsis due to unspecified organism Sepsis acute organ dysfunction status: unspecified Qualified Code(s): A41.9 - Sepsis, unspecified organism (2) Transaminitis Code(s): R74.0 - NONSPEC ELEV OF LEVELS OF TRANSAMNS & LACTIC ACID DEHYDRGNSE (3) Anemia Code(s): D64.9 - ANEMIA, UNSPECIFIED Qualifiers: Anemia type: unspecified type Qualified Code(s): D64.9 - Anemia, unspecified (4) ESRD (end stage renal disease) on dialysis Code(s): N18.6 - END STAGE RENAL DISEASE; Z99.2 - DEPENDENCE ON RENAL DIALYSIS (5) Bipolar 1 disorder Code(s): F31.9 - BIPOLAR DISORDER, UNSPECIFIED (6) CHF (congestive heart failure) Code(s): I50.9 - HEART FAILURE, UNSPECIFIED (7) COPD (chronic obstructive pulmonary disease) Code(s): J44.9 - CHRONIC OBSTRUCTIVE PULMONARY DISEASE, UNSPECIFIED (8) Gout Code(s): M10.9 - GOUT, UNSPECIFIED (9) HLD (hyperlipidemia) Code(s): E78.5 - HYPERLIPIDEMIA, UNSPECIFIED (10) Hypertension Code(s): I10 - ESSENTIAL (PRIMARY) HYPERTENSION (11) Sacral decubitus ulcer, stage II Code(s): L89.152 - PRESSURE ULCER OF SACRAL REGION, STAGE 2 Assessment/Plan 59 year old male from [place] who is very limited verbally with a PMHx of ESRD (, , ), HTN, HLD, CHF, COPD, Gout, Bipolar Disorder, and schizophrenia arrived to Emergency department for dislodged PEG, however at ED noted with fever, tachyapnic and tachycardia. Work up sepsis ordered. Patient with purulent fluid drainage at G-tube side (cultured), with sacral ulceration # Sepsis ? source ? pnuemonia vs GI source vs infected sacral decubitus -CXR: congestion changes, no change from prior cXr -WBC: 17.1, lactic: 2.4 -negative trop, EKG: ST rate of 118 bpm, LAD, no st elevation -In ED given Tylenol IV, Vanco and Zosyn -continue with zosyn, ID to follow renal dose Vanco if indicated -given IVF in ED, limited fluids due to ERSD -repeat labs in AM cbc, bmp, ESR, CRP -follow up abd wound cx, blood and urine cx (if able to get sample) -local wound care -pain management # Dislodged G-tube -18F Peg tube placed by ED staff -Gastrografin study done confirmed placed -consider GI follow up # ESRD ON HD (, , ) - seen by nephrology - possible dialysis tomorrow - follow up repeat labs in AM #Anemia - hgb: dropped from 9.2 ---> 7.2 - occult blood - monitor H/H trend closely - transfuse if hgb less than 7 # Elevated LFTs AST: 156, ALT:165, Alakaline phos: 233 - improved from last visit, monitor trend #HTN/ HLD #CHF - continue with lipitor 40 mg GT HS - continue with Metoprolol Tartrate 50 mg GT Q8H - fluids restriction - Monitor I &O #COPD - nebulizer PRN as needed #GOUT - continue with Zyloprim 100mg daily # Bipolar #Schizophrenia - not on any psych meds - monitor for acute behavioral changes - safety/fall precaution # Saclar ulcer - local wound care with santyl - turn & position - pain management Diet: PEG feeds DVT: Heparin SQ, SCD Visit type - Emergency Visit Emergency Visit: Yes ED Registration Date: 09/30/19 Care time: The patient presented to the Emergency Department on the above date and was hospitalized for further evaluation of their emergent condition. - New Patient This patient is new to me today: Yes Date on this admission: 09/30/19 - Critical Care Critical Care patient: No
--- NOTE | 2019-09-30 20:19 | CONSULT ---
Consult Consult Specialty:: Nephrology Reason for Consultation:: ESRD - History of Present Illness Chief Complaint: sent in for peg tube change History of Present Illness: Pt is a 59 year old male with pmhx of esr, htn, hld, chf, copd, bipolar and gout who was sent in for dislodged peg tube. I was called to evaluate him as he is an HD pt. HD unit is closed and it is not clear when his last HD was. He is minimally verbal and unable to give much history. He denies shortness of breath. - History Source History Provided By: Medical Record - Past Medical History Cardio/Vascular: Yes: CHF, HTN, Hyperlipdemia Pulmonary: Yes: COPD Renal/: Yes: Renal Failure, Renal Inusuff, Hemodialysis Psych: Yes: Bipolar, Schizophrenia Musculoskeletal: Yes: Other (Slight edema of the skin in left buttock , no pain , not tender, there is superficial breakdown of the skin of left buttock.) Rheumatology: Yes: Gout Dermatology: Yes: Other ( BL lateral maleoli pressure ulcers, sacral decub ulcer stage 3) Additional Medical History: obesity, non compliance - Past Surgical History Past Surgical History: Yes: None - Alcohol/Substance Use Hx Alcohol Use: No History of Substance Use: reports: None - Smoking History Smoking history: Unknown if ever smoked Have you smoked in the past 12 months: No Aproximately how many cigarettes per day: 0 - Social History Usual Living Arrangement: Group Home ADL: Support Services Occupation: disability History of Recent Travel: No Home Medications - Allergies Allergies/Adverse Reactions: Allergies Allergy/AdvReac Type Severity Reaction Status Date / Time No Known Allergies Allergy Verified 07/01/19 12:38 - Home Medications Home Medications: Ambulatory Orders Acetaminophen [Tylenol] 650 mg GT ASDIR 09/30/19 Albuterol 0.083% Nebulizer Jaclyn [Ventolin 0.083%] 1 neb NEB Q4H PRN 09/30/19 Allopurinol [Zyloprim -] 100 mg GT DAILY 09/30/19 Aspirin [Adult Aspirin Regimen] 81 mg GT DAILY 09/30/19 Atorvastatin Calcium 40 mg GT HS 09/30/19 Collagenase Clostridium Hist. [Santyl] 1 applic TP DAILY 09/30/19 Folic Acid - 1 mg GT DAILY 09/30/19 Metoprolol Tartrate [Lopressor -] 50 mg GT Q8H 09/30/19 Vitamin B Comp W-C [Nephro-Lulu -] 1 tablet GT DAILY 09/30/19 Zinc Sulfate [Zinc-220] 220 mg GT DAILY 09/30/19 traMADol HCL [Ultram -] 50 mg GT BID PRN 09/30/19 Family Medical History Family History: Unable to Obtain Review of Systems Findings/Remarks: he says "no" to everything - Review of Systems Constitutional: reports: No Symptoms Eyes: reports: No Symptoms HENT: reports: No Symptoms Neck: reports: No Symptoms Cardiovascular: reports: No Symptoms Respiratory: reports: No Symptoms Gastrointestinal: reports: No Symptoms Genitourinary: reports: No Symptoms Musculoskeletal: reports: No Symptoms Integumentary: reports: No Symptoms Neurological: reports: No Symptoms Physical Exam Vital Signs: Vital Signs Temperature 98.7 F 09/30/19 20:08 Pulse Rate 106 H 09/30/19 20:08 Respiratory Rate 09/30/19 20:08 Blood Pressure 126/75 09/30/19 20:08 O2 Sat by Pulse Oximetry (%) 97 09/30/19 18:42 Constitutional: Yes: Calm Eyes: Yes: Conjunctiva Clear HENT: Yes: Atraumatic Neck: Yes: Supple Cardiovascular: Yes: S1, S2 Respiratory: Yes: CTA Bilaterally Gastrointestinal: Yes: Soft Renal/: Yes: Incontinence Musculoskeletal: Yes: Muscle Weakness Edema: No Neurological: Yes: Confusion Labs: CBC, BMP 09/30/19 13:50 09/30/19 13:50 Imaging - Results Chest X-ray: Report Reviewed Problem List - Problems (1) ESRD (end stage renal disease) on dialysis Code(s): N18.6 - END STAGE RENAL DISEASE; Z99.2 - DEPENDENCE ON RENAL DIALYSIS Assessment/Plan Impression 1. ESRD 2. dislodged g-tub 3. gout 4. HTN 5. CHF 6. DM 7. hx bipolar 8. MOLLY 9. non compliance 10. c. diff 11. a-fib Plan - repeat labs in am - will evaluate for HD tomorrow - GI eval for peg tube - pt appears comfortable Dr Raphael
[2019-09-30] MEDS ORDERED: ALBUTEROL SO4 0.083% IH SOL 2.5 MG/3 ML VIAL.NEB. NEB PRN (20:53)
[2019-09-30] MEDS ORDERED: IPRATROPIUM BR 0.02% 0.5 MG/2.5 ML VIAL.NEB. NEB PRN (20:53)
[2019-09-30] MEDS ORDERED: traMADol HCL 50 MG TABLET PEG PRN (20:56)
[2019-09-30] MEDS ORDERED: ACETAMINOPHEN 650 MG/20.3 ML ORAL SOLUTION (CUPS) GT PRN (21:26)
[2019-09-30] MEDS: HEPARIN NA (PORCINE) 5,000 UNITS/ML 1ML VIAL SQ SCH (21:49)
[2019-09-30] MEDS: METOPROLOL TARTRATE 50 MG TABLET (FP) GT SCH (21:49)
[2019-09-30] MEDS: ATORVASTATIN CA 40 MG TABLET (FP) GT SCH (21:49)
[2019-10-01] MEDS ORDERED: DEXTROSE 5%-WATER - 50 ML IVPB ONE ×3 (01:21→18:45)
[2019-10-01] MEDS ORDERED: PIPERACILLIN/TAZOBACTAM 2.25 GM VIAL IVPB ONE ×3 (01:21→18:44)
[2019-10-01] MEDS: PIPERACILLIN/TAZOB 2.25 GM 2.25 GM in DEXTROSE 5%-WATER - 50 ML IVPB SCH ×3 (02:13→18:53)
[2019-10-01] MEDS: HEPARIN NA (PORCINE) 5,000 UNITS/ML 1ML VIAL SQ SCH ×3 (05:08→22:31)
[2019-10-01] MEDS: METOPROLOL TARTRATE 50 MG TABLET (FP) GT SCH ×3 (05:09→22:30)
[2019-10-01 08:02] LABS: HEMATOCRIT 23.1 % (35.4-49); HEMOGLOBIN 7.2 GM/dL (11.7-16.9); MCHC 31.2 g/dl (32.0-35.9); MEAN CELL VOLUME 80.2 fl (80-96); MEAN PLT VOLUME 7.9 fl (7.5-11.1); PLATELET COUNT 315 K/MM3 (134-434); RBC 2.88 M/mm3 (4.00-5.60); RDW 21.1 % (11.9-15.9); WHITE BLOOD COUNT 18.3 K/mm3 (4.0-10.0)
[2019-10-01 08:13] LABS: CALCIUM 10.2 mg/dL (8.5-10.1); CREATININE 5.3 mg/dL (0.55-1.3); POTASSIUM 3.5 mmol/L (3.5-5.1)
[2019-10-01 08:19] LABS: BLOOD UREA NITROGEN 114.2 mg/dL (7-18)
[2019-10-01] MEDS: COLLAGENASE CLOSTRIDIUM HIST. 30 GRAMS TUBE TP SCH (10:35)
--- NOTE | 2019-10-01 11:50 | PN ---
Progress Note, Physician History of Present Illness: patient seen and examined. Chart reviewed. He was noted. Pulled out G-tube tube again Complaints of pain awake No distress Chronic ill appearance afebrile - Current Medication List Current Medications: Active Medications Acetaminophen (Tylenol Oral Solution -) 650 mg GT Q6H PRN PRN Reason: FEVER Last Admin: 10/01/19 05:08 Dose: 650 mg Albuterol Sulfate (Ventolin 0.083% Nebulizer Soln -) 1 amp NEB Q6H PRN PRN Reason: SHORT OF BREATH/WHEEZING Allopurinol (Zyloprim -) 100 mg GT DAILY RONALD Atorvastatin Calcium (Lipitor -) 40 mg GT HS RONALD Last Admin: 09/30/19 21:49 Dose: 40 mg Collagenase (Santyl -) 1 applic TP DAILY RONALD; Protocol Last Admin: 10/01/19 10:35 Dose: 1 applic Epoetin Shawn (Epogen -) 10,000 unit IVPUSH ONCE ONE Stop: 10/01/19 11:24 Heparin Sodium (Porcine) (Heparin -) 5,000 unit SQ TID RONALD Last Admin: 10/01/19 05:08 Dose: 5,000 unit Piperacillin Sod/Tazobactam (Sod 2.25 gm/ Dextrose) 50 mls @ 100 mls/hr IVPB Q6H-IV RONALD; Protocol Stop: 10/01/19 15:29 Last Admin: 10/01/19 02:13 Dose: 100 mls/hr Piperacillin Sod/Tazobactam (Sod 2.25 gm/ Dextrose) 50 mls @ 100 mls/hr IVPB Q6H-IV RONALD; Protocol Sodium Chloride (Normal Saline -) 250 mls @ 3,000 mls/hr IV PRN PRN PRN Reason: Hypotension during Dialysis Stop: 10/02/19 11:23 Ipratropium [place] (Atrovent 0.02% Nebulizer -) 1 amp NEB Q6H PRN PRN Reason: WHEEZING Metoprolol Tartrate (Lopressor -) 50 mg GT TID RONALD Last Admin: 10/01/19 05:09 Dose: 50 mg Tramadol HCl (Ultram -) 50 mg PEG BID PRN PRN Reason: PAIN LEVEL 6-10 Zinc Sulfate (Orazinc -) 220 mg GT DAILY COUNTS INCLUDE 234 BEDS AT THE [facility] - Objective Vital Signs: Vital Signs Temperature 97.5 F L 10/01/19 08:00 Pulse Rate 104 H 10/01/19 08:00 Respiratory Rate 20 10/01/19 08:00 Blood Pressure 118/44 L 10/01/19 08:00 O2 Sat by Pulse Oximetry (%) 97 09/30/19 20:27 Constitutional: Yes: No Distress Eyes: Yes: Conjunctiva Clear Neck: Yes: Supple Cardiovascular: Yes: Regular Rate and Rhythm Respiratory: Yes: Diminished Gastrointestinal: Yes: Soft, Other (Mild tenderness around the G-tube site--) Wound/Incision: Yes: Other (sacral decubitus) Labs: CBC, BMP 10/01/19 07:12 10/01/19 07:12 INR, PTT INR 1.33 (0.83-1.09) H 09/30/19 13:50 Problem List - Problems (1) Sacral decubitus ulcer, stage IV Code(s): L89.154 - PRESSURE ULCER OF SACRAL REGION, STAGE 4 (2) ESRD (end stage renal disease) on dialysis Code(s): N18.6 - END STAGE RENAL DISEASE; Z99.2 - DEPENDENCE ON RENAL DIALYSIS (3) Sepsis Code(s): A41.9 - SEPSIS, UNSPECIFIED ORGANISM Qualifiers: Sepsis type: sepsis due to unspecified organism Sepsis acute organ dysfunction status: unspecified Qualified Code(s): A41.9 - Sepsis, unspecified organism (4) Bipolar 1 disorder Code(s): F31.9 - BIPOLAR DISORDER, UNSPECIFIED Assessment/Plan discussed with RN Antibiotics Pain control [facility]--- keep G tube site patent GI consult ID already consulted Dialysis as per renal With conservative wound care also Sacral decubitus care Condition guarded but stable Will follow
[2019-10-01] MEDS: ZINC SULFATE 220 MG CAPSULE (FP) GT SCH (11:55)
[2019-10-01] MEDS: ALLOPURINOL 100 MG TABLET (FP) GT SCH (11:55)
--- NOTE | 2019-10-01 13:20 | EKG ---
Test Reason : Blood Pressure : / mmHG Vent. Rate : 118 BPM Atrial Rate : 118 BPM P-R Int : 170 ms QRS Dur : 092 ms QT Int : 322 ms P-R-T Axes : 034 -25 017 degrees QTc Int : 451 ms POOR DATA QUALITY, INTERPRETATION MAY BE ADVERSELY AFFECTED SINUS TACHYCARDIA LOW VOLTAGE QRS INFERIOR INFARCT (CITED ON OR BEFORE 21-JAN-2019) POSSIBLE ANTEROLATERAL INFARCT (CITED ON OR BEFORE 21-JAN-2019) ABNORMAL ECG WHEN COMPARED WITH ECG OF 25-JUL-2019 18:35, PREMATURE VENTRICULAR COMPLEXES ARE NO LONGER PRESENT QUESTIONABLE CHANGE IN INITIAL FORCES OF LATERAL LEADS Confirmed by FRANCIS CHAO, CARMINE ([id number]) on 10/01/2019 1:20:09 PM Referred By: Confirmed By:CARMINE BLANCO MD
[2019-10-01] MEDS ORDERED: SODIUM CHLORIDE 250 ML IV PRN (14:56)
[2019-10-01] MEDS ORDERED: EPOETIN ALFA 10,000 UNIT/1 ML VIAL IVPUSH ONE (15:00)
--- NOTE | 2019-10-01 16:31 | PN ---
Progress Note (short form) - Note Progress Note: GI CONSULT DICTATED PEG TUBE BALLOON INFLATED ORDERED GATROGRAFFIN TUBE CHECK TO CONFIRM PLACEMENT OF THE TUBE. DO NOT USE THE PEG TUBE UNTIL PLACEMENT IS CONFIRMED F/U LIVER SEROLOGY ABX F/U CULTURES IF LEUKOCYTOSIS DOES NOT IMPROVE PLAN FOR CT ABD PELVIS TOMORROW FOR NOW WILL ORDER ABD ULTRASOUND TO EVALUATE THE BILIARY TREE/ ABDOMEN SEE FULL CONSULT DICTATED
--- NOTE | 2019-10-01 19:01 | PN ---
Progress Note, Physician History of Present Illness: Pt seen and examined at bedside. He is awake and appears comfortable. He is tolerating HD. - Current Medication List Current Medications: Active Medications Acetaminophen (Tylenol Oral Solution -) 650 mg GT Q6H PRN PRN Reason: FEVER Last Admin: 10/01/19 05:08 Dose: 650 mg Albuterol Sulfate (Ventolin 0.083% Nebulizer Soln -) 1 amp NEB Q6H PRN PRN Reason: SHORT OF BREATH/WHEEZING Allopurinol (Zyloprim -) 100 mg GT DAILY RONALD Last Admin: 10/01/19 11:55 Dose: Not Given Atorvastatin Calcium (Lipitor -) 40 mg GT HS RONALD Last Admin: 09/30/19 21:49 Dose: 40 mg Collagenase (Santyl -) 1 applic TP DAILY RONALD; Protocol Last Admin: 10/01/19 10:35 Dose: 1 applic Heparin Sodium (Porcine) (Heparin -) 5,000 unit SQ TID RONALD Last Admin: 10/01/19 15:33 Dose: Not Given Piperacillin Sod/Tazobactam (Sod 2.25 gm/ Dextrose) 50 mls @ 100 mls/hr IVPB Q6H-IV RONALD; Protocol Sodium Chloride (Normal Saline -) 250 mls @ 3,000 mls/hr IV PRN PRN PRN Reason: Hypotension during Dialysis Stop: 10/02/19 14:55 Ipratropium [place] (Atrovent 0.02% Nebulizer -) 1 amp NEB Q6H PRN PRN Reason: WHEEZING Metoprolol Tartrate (Lopressor -) 50 mg GT TID [facility] Last Admin: 10/01/19 14:43 Dose: Not Given Tramadol HCl (Ultram -) 50 mg PEG BID PRN PRN Reason: PAIN LEVEL 6-10 Zinc Sulfate (Orazinc -) 220 mg GT DAILY [facility] Last Admin: 10/01/19 11:55 Dose: Not Given - Objective Vital Signs: Vital Signs Temperature 98.2 F 10/01/19 14:40 Pulse Rate 100 H 10/01/19 17:58 Respiratory Rate 18 10/01/19 17:58 Blood Pressure 107/41 L 10/01/19 17:58 O2 Sat by Pulse Oximetry (%) 97 10/01/19 09:00 Constitutional: Yes: Calm Eyes: Yes: Conjunctiva Clear HENT: Yes: Atraumatic Neck: Yes: Supple Cardiovascular: Yes: S1, S2 Respiratory: Yes: CTA Bilaterally Gastrointestinal: Yes: Soft Genitourinary: Yes: Incontinence Edema: No Neurological: Yes: Confusion Labs: CBC, BMP 10/01/19 07:12 10/01/19 07:12 INR, PTT INR 1.33 (0.83-1.09) H 09/30/19 13:50 Problem List - Problems (1) ESRD (end stage renal disease) on dialysis Code(s): N18.6 - END STAGE RENAL DISEASE; Z99.2 - DEPENDENCE ON RENAL DIALYSIS Assessment/Plan Current Medications Generic Name Dose Route Start Last Admin Trade Name Freq PRN Reason Stop Dose Admin Acetaminophen 650 mg 09/30/19 21:26 10/01/19 05:08 Tylenol Oral Solution - GT 650 mg Q6H PRN Administration FEVER Albuterol Sulfate 1 amp 09/30/19 20:53 Ventolin 0.083% Nebulizer Soln - NEB Q6H PRN SHORT OF BREATH/WHEEZING Allopurinol 100 mg 10/01/19 10:00 10/01/19 11:55 Zyloprim - GT Not Given DAILY RONALD Atorvastatin Calcium 40 mg 09/30/19 22:00 09/30/19 21:49 Lipitor - GT 40 mg HS RONALD Administration Collagenase 1 applic 10/01/19 10:00 10/01/19 10:35 Santyl - TP 1 applic DAILY RONALD Administration Protocol Heparin Sodium (Porcine) 5,000 unit 09/30/19 22:00 10/01/19 15:33 Heparin - SQ Not Given TID RONALD Piperacillin Sod/Tazobactam 50 mls @ 100 mls/hr 10/01/19 21:00 Sod 2.25 gm/ Dextrose IVPB Q6H-IV RONALD Protocol Sodium Chloride 250 mls @ 3,000 mls/hr 10/01/19 14:56 Normal Saline - IV 10/02/19 14:55 PRN PRN Hypotension during Dialysis Ipratropium [place] 1 amp 09/30/19 20:53 Atrovent 0.02% Nebulizer - NEB Q6H PRN WHEEZING Metoprolol Tartrate 50 mg 09/30/19 22:00 10/01/19 14:43 Lopressor - GT Not Given TID RONALD Tramadol HCl 50 mg 09/30/19 20:56 Ultram - PEG BID PRN PAIN LEVEL 6-10 Zinc Sulfate 220 mg 10/01/19 10:00 10/01/19 11:55 Orazinc - GT Not Given DAILY RONALD Impression 1. ESRD 2. dislodged g-tub 3. gout 4. HTN 5. CHF 6. DM 7. hx bipolar 8. MOLLY 9. non compliance 10. c. diff 11. a-fib 12. anemia Plan - HD today - prbc on hd - epogen with hd - gi eval for peg - pt appears comfortable Dr Raphael
--- NOTE | 2019-10-01 20:12 | CONS ---
DATE OF CONSULTATION: DATE OF DICTATION: 10/01/2019 The patient is a 59-year-old man from the [facility] facility, minimally verbal, with a history of end-stage renal disease, on hemodialysis, hypertension, hyperlipidemia, CHF, COPD, gout, bipolar disorder and schizophrenia, arrived to the emergency room for a dislodged PEG tube. In the ER, he was noted to have fever and shortness of breath. Apparently this tube was changed by IR in June of 2019. There was a complication with an infection and abscess at that time. The patient is minimally verbal so the HPI is obtained from the chart as well as the medical history. PAST MEDICAL AND SURGICAL HISTORY: As listed in the HPI. ALLERGIES: No known drug allergies. SOCIAL HISTORY: Does not smoke, drink, or use drugs. Lives at the facility. FAMILY HISTORY: Unable to obtain. Home medications include Tylenol, albuterol, Zyloprim, aspirin, calcium, folic acid, Lopressor, Nepro feeds, zinc, and Ultram. REVIEW OF SYSTEMS: Unable to obtain secondary to mental status. PHYSICAL EXAMINATION: Vital Signs: Temperature 98, pulse 107, blood pressure 94/50, respiratory rate 18. General: No acute distress. HEENT: Anicteric sclerae. Cardiovascular: S1, S2, regular rate and rhythm. Lungs: Bilaterally clear to auscultation. Abdomen: Soft, nontender. There is a PEG tube which is within the tract, however, the balloon is deflated. Extremities: No edema. LABORATORY DATA: White blood cell count 18, hemoglobin 7, hematocrit 23, MCV 80, platelet count 315, INR 1.3. Sodium 135, potassium 3.5, BUN 114, creatinine 5, lactic acid 2.2, calcium 10, AST 156, ALT 165, alkaline phosphatase 233. CRP 22. He had an abdominal x-ray done on the , which was to check PEG tube placement and it revealed a functional PEG tube. No other imaging was performed except for a chest x-ray. No change since 2018. His cultures revealed Staphylococcus aureus. Urine culture with streptococcus or enterococcus. Blood cultures are so far negative. IMPRESSION: Dislodged PEG tube. At the bedside, the balloon was inflated. Abdominal x-ray with Gastrografin tube check was ordered to confirm placement of the tube. The tube cannot be used until placement is confirmed by this x-ray. In addition, with the transaminitis, which is likely multifactorial in origin secondary to medications and congestion, serologies for hepatitis B and C are pending at this time. Also with the leukocytosis and sepsis, etiology may be secondary to urinary tract infection and wound infection. For now, would continue him on antibiotics, follow up final cultures. If he does not improve on antibiotics, would recommend a CT scan of the abdomen and pelvis to be done tomorrow to rule out any underlying collection. The patient will be followed by GI service. DO CHRISTEN VARGAS/[id number]
[2019-10-01] MEDS: ATORVASTATIN CA 40 MG TABLET (FP) GT SCH (22:31)
[2019-10-02] MEDS: HEPARIN NA (PORCINE) 5,000 UNITS/ML 1ML VIAL SQ SCH ×3 (05:52→22:04)
[2019-10-02] MEDS: METOPROLOL TARTRATE 50 MG TABLET (FP) GT SCH ×4 (05:52→22:04)
[2019-10-02] MEDS ORDERED: PIPERACILLIN/TAZOB 2.25 GM 2.25 GM in DEXTROSE 5%-WATER - 50 ML IVPB SCH (10:15)
[2019-10-02] MEDS ORDERED: PIPERACILLIN/TAZOBACTAM 2.25 GM VIAL IVPB ONE (10:41)
[2019-10-02] MEDS ORDERED: DEXTROSE 5%-WATER - 50 ML IVPB ONE (10:41)
[2019-10-02] MEDS: ZINC SULFATE 220 MG CAPSULE (FP) GT SCH (10:48)
[2019-10-02] MEDS: ALLOPURINOL 100 MG TABLET (FP) GT SCH (10:48)
[2019-10-02 11:25] VITALS: BMI 31.4
--- NOTE | 2019-10-02 12:07 | PN ---
Progress Note (short form) - Note Progress Note: Pt seen/ examined looks better no distress chronic ill apperance GI consult appreciated -- G tube placed + diarrhea Afebrile today. Vital Signs Temp 98.1 F 10/02/19 03:00 Pulse 96 H 10/02/19 03:00 Resp 22 H 10/02/19 03:00 BP 112/65 10/02/19 03:00 Pulse Ox 100 10/01/19 21:00 Intake & Output 10/01/19 10/02/19 10/02/19 23:59 11:59 23:59 Intake Total 750 Output Total 600 Balance 150 Weight 207 lb Intake: IVPB 400 Oral 0 Packed Cells 350 Output: Fluid Removed, 600 Hemodialysis Other: Voiding Method Incontinent Incontinent # Unmeasured Voids Void 0 2 Bowel Movement Yes Yes # Bowel Movements 1 Height 5 ft 8 in Body Mass Index (BMI) 31.4 Active Medications Acetaminophen (Tylenol Oral Solution -) 650 mg GT Q6H PRN PRN Reason: FEVER Last Admin: 10/01/19 05:08 Dose: 650 mg Albuterol Sulfate (Ventolin 0.083% Nebulizer Soln -) 1 amp NEB Q6H PRN PRN Reason: SHORT OF BREATH/WHEEZING Allopurinol (Zyloprim -) 100 mg GT DAILY [facility] Last Admin: 10/02/19 10:48 Dose: 100 mg Atorvastatin Calcium (Lipitor -) 40 mg GT HS [facility] Last Admin: 10/01/19 22:31 Dose: 40 mg Collagenase (Santyl -) 1 applic TP DAILY [facility]; Protocol Last Admin: 10/01/19 10:35 Dose: 1 applic Heparin Sodium (Porcine) (Heparin -) 5,000 unit SQ TID [facility] Last Admin: 10/02/19 05:52 Dose: 5,000 unit Sodium Chloride (Normal Saline -) 250 mls @ 3,000 mls/hr IV PRN PRN PRN Reason: Hypotension during Dialysis Stop: 10/02/19 14:55 Piperacillin Sod/Tazobactam (Sod 2.25 gm/ Dextrose) 50 mls @ 100 mls/hr IVPB Q8H-IV [facility]; Protocol Last Admin: 10/02/19 10:47 Dose: 100 mls/hr Ipratropium [place] (Atrovent 0.02% Nebulizer -) 1 amp NEB Q6H PRN PRN Reason: WHEEZING Metoprolol Tartrate (Lopressor -) 50 mg GT TID [facility] Last Admin: 10/02/19 05:52 Dose: 50 mg Tramadol HCl (Ultram -) 50 mg PEG BID PRN PRN Reason: PAIN LEVEL 6-10 Zinc Sulfate (Orazinc -) 220 mg GT DAILY [facility] Last Admin: 10/02/19 10:48 Dose: 220 mg CBC, BMP 10/01/19 07:12 10/01/19 07:12 Microbiology 09/30/19 14:37 Wound Culture - Preliminary Abdomen Group D Strep Or Entero Coccus Staphylococcus Coagulase Neg 09/30/19 15:23 Blood Culture - Preliminary Blood - Peripheral Venous NO GROWTH OBTAINED AFTER 24 HOURS, INCUBATION TO CONTINUE FOR 4 DAYS. 09/30/19 13:50 Blood Culture - Preliminary Blood - Peripheral Venous NO GROWTH OBTAINED AFTER 24 HOURS, INCUBATION TO CONTINUE FOR 4 DAYS. 09/30/19 14:00 Urine Culture - Preliminary Urine - Urine - Catheterized Group D Strep Or Entero Coccus Physical Constitutional: Yes: No Distress. Comfortable Eyes: Yes: Conjunctiva Clear Neck: Yes: Supple Cardiovascular: Yes: Regular Rate and Rhythm Respiratory: Yes: Diminished Gastrointestinal: Yes: Soft, Other (Mild tenderness around the G-tube site--) Wound/Incision: Yes: Other (sacral decubitus) Assessment/Plan discussed with RN Antibiotics-- I/D to follow Pain control Dialysis as per renal With conservative wound care also Sacral decubitus care transfuse prn stool for c diff start on feeding and po vanco Condition guarded but stable Will follow Problem List - Problems (1) Sacral decubitus ulcer, stage IV Code(s): L89.154 - PRESSURE ULCER OF SACRAL REGION, STAGE 4 (2) ESRD (end stage renal disease) on dialysis Code(s): N18.6 - END STAGE RENAL DISEASE; Z99.2 - DEPENDENCE ON RENAL DIALYSIS (3) Sepsis Code(s): A41.9 - SEPSIS, UNSPECIFIED ORGANISM Qualifiers: Sepsis type: sepsis due to unspecified organism Sepsis acute organ dysfunction status: unspecified Qualified Code(s): A41.9 - Sepsis, unspecified organism (4) Bipolar 1 disorder Code(s): F31.9 - BIPOLAR DISORDER, UNSPECIFIED
[2019-10-02] MEDS: COLLAGENASE CLOSTRIDIUM HIST. 30 GRAMS TUBE TP SCH (12:19)
--- NOTE | 2019-10-02 13:57 | PN ---
Progress Note, Physician History of Present Illness: Pt seen and examined at bedside. He is awake and appears comfortable. - Current Medication List Current Medications: Active Medications Acetaminophen (Tylenol Oral Solution -) 650 mg GT Q6H PRN PRN Reason: FEVER Last Admin: 10/01/19 05:08 Dose: 650 mg Albuterol Sulfate (Ventolin 0.083% Nebulizer Soln -) 1 amp NEB Q6H PRN PRN Reason: SHORT OF BREATH/WHEEZING Allopurinol (Zyloprim -) 100 mg GT DAILY [facility] Last Admin: 10/02/19 10:48 Dose: 100 mg Atorvastatin Calcium (Lipitor -) 40 mg GT HS [facility] Last Admin: 10/01/19 22:31 Dose: 40 mg Collagenase (Santyl -) 1 applic TP DAILY [facility]; Protocol Last Admin: 10/02/19 12:19 Dose: 1 applic Heparin Sodium (Porcine) (Heparin -) 5,000 unit SQ TID [facility] Last Admin: 10/02/19 05:52 Dose: 5,000 unit Sodium Chloride (Normal Saline -) 250 mls @ 3,000 mls/hr IV PRN PRN PRN Reason: Hypotension during Dialysis Stop: 10/02/19 14:55 Piperacillin Sod/Tazobactam (Sod 2.25 gm/ Dextrose) 50 mls @ 100 mls/hr IVPB Q8H-IV [facility]; Protocol Last Admin: 10/02/19 10:47 Dose: 100 mls/hr Ipratropium [place] (Atrovent 0.02% Nebulizer -) 1 amp NEB Q6H PRN PRN Reason: WHEEZING Metoprolol Tartrate (Lopressor -) 50 mg GT TID [facility] Last Admin: 10/02/19 05:52 Dose: 50 mg Tramadol HCl (Ultram -) 50 mg PEG BID PRN PRN Reason: PAIN LEVEL 6-10 Vancomycin HCl (Vancomycin Oral Solution) 250 mg PO Q6HPO [facility] Zinc Sulfate (Orazinc -) 220 mg GT DAILY [facility] Last Admin: 10/02/19 10:48 Dose: 220 mg - Objective Vital Signs: Vital Signs Temperature 98.1 F 10/02/19 03:00 Pulse Rate 96 H 10/02/19 03:00 Respiratory Rate 22 H 10/02/19 03:00 Blood Pressure 112/65 10/02/19 03:00 O2 Sat by Pulse Oximetry (%) 100 01/12/20 21:00 Constitutional: Yes: Calm Eyes: Yes: Conjunctiva Clear HENT: Yes: Atraumatic Cardiovascular: Yes: S1, S2 Respiratory: Yes: CTA Bilaterally Gastrointestinal: Yes: Soft Genitourinary: Yes: Incontinence Musculoskeletal: Yes: Muscle Weakness Edema: No Neurological: Yes: Confusion Labs: CBC, BMP 10/01/19 07:12 10/01/19 07:12 INR, PTT INR 1.33 (0.83-1.09) H 09/30/19 13:50 Problem List - Problems (1) ESRD (end stage renal disease) on dialysis Code(s): N18.6 - END STAGE RENAL DISEASE; Z99.2 - DEPENDENCE ON RENAL DIALYSIS Assessment/Plan Current Medications Generic Name Dose Route Start Last Admin Trade Name Freq PRN Reason Stop Dose Admin Acetaminophen 650 mg 09/30/19 21:26 10/01/19 05:08 Tylenol Oral Solution - GT 650 mg Q6H PRN Administration FEVER Albuterol Sulfate 1 amp 09/30/19 20:53 Ventolin 0.083% Nebulizer Soln - NEB Q6H PRN SHORT OF BREATH/WHEEZING Allopurinol 100 mg 10/01/19 10:00 10/02/19 10:48 Zyloprim - GT 100 mg DAILY [facility] Administration Atorvastatin Calcium 40 mg 09/30/19 22:00 10/01/19 22:31 Lipitor - GT 40 mg HS [facility] Administration Collagenase 1 applic 10/01/19 10:00 10/02/19 12:19 Santyl - TP 1 applic DAILY [facility] Administration Protocol Heparin Sodium (Porcine) 5,000 unit 09/30/19 22:00 10/02/19 05:52 Heparin - SQ 5,000 unit TID [facility] Administration Sodium Chloride 250 mls @ 3,000 mls/hr 10/01/19 14:56 Normal Saline - IV 10/02/19 14:55 PRN PRN Hypotension during Dialysis Piperacillin Sod/Tazobactam 50 mls @ 100 mls/hr 10/02/19 10:15 10/02/19 10:47 Sod 2.25 gm/ Dextrose IVPB 100 mls/hr Q8H-IV [facility] Administration Protocol Ipratropium [place] 1 amp 09/30/19 20:53 Atrovent 0.02% Nebulizer - NEB Q6H PRN WHEEZING Metoprolol Tartrate 50 mg 09/30/19 22:00 10/02/19 05:52 Lopressor - GT 50 mg TID [facility] Administration Tramadol HCl 50 mg 09/30/19 20:56 Ultram - PEG BID PRN PAIN LEVEL 6-10 Vancomycin HCl 250 mg 10/02/19 18:00 Vancomycin Oral Solution PO Q6HPO [facility] Zinc Sulfate 220 mg 10/01/19 10:00 10/02/19 10:48 Orazinc - GT 220 mg DAILY [facility] Administration Impression 1. ESRD 2. dislodged g-tub 3. gout 4. HTN 5. CHF 6. DM 7. hx bipolar 8. MOLLY 9. non compliance 10. c. diff 11. a-fib 12. anemia Plan - pt had HD yesterday - Gi follow up for peg tube - check labs in am - will evaluate for HD tomorrow - epogen for anemia - pt appears comfortable Dr Raphael
--- NOTE | 2019-10-02 14:11 | PN ---
Progress Note (short form) - Note Progress Note: GI f/u PEG is in place per tube study Diarrhea reported, started on PO vanco CT abdomen pelvis ordered as WBC remains elevated ok to use PEG for meds and feeds Check C. diff f/u CT
--- NOTE | 2019-10-02 14:35 | PN ---
Progress Note (short form) - Note Progress Note: ID CONSULT DICTATED S/P DISLODGED GT + C DIFFICILE LEUKOCYTOSIS ? SECONDARY TO C DIFFICILE + URINE C/S = CONTAMINANT D/C IV ANTIBIOTIC VANCOMYCIN 125MG PO QID X 10D
--- NOTE | 2019-10-02 16:26 | CONS ---
INFECTIOUS DISEASE CONSULTATION DATE OF CONSULTATION: DATE OF DICTATION: 10/02/2019 HISTORY: The patient is a 59-year-old male who is evaluated for low-grade fever. The patient was admitted to the hospital on September 30, 2019, from [facility] after he had dislodged his feeding gastrostomy tube. History was obtained from the chart as he cannot give a history secondary to dementia. He was evaluated in the emergency room where he was noted to have a low-grade fever 100.6, tachycardic, and tachypneic. Cultures were obtained. He was empirically treated with Zosyn. Course complicated by loose bowel movements. A C. difficile was sent and is positive for C. difficile antigen. He underwent successful revision of his feeding gastrostomy tube. Blood cultures have been negative. His white blood cell count remains elevated. He is unable to give any additional details. He has had several recent hospitalizations most recently in July of this year for pneumonia. PAST MEDICAL HISTORY: Positive for bipolar disorder, schizophrenia, dementia, end-stage renal disease, peripheral neuropathy, hypertension, hyperlipidemia, congestive heart failure, COPD, gouty arthritis. ALLERGIES: No known allergies. MEDICATIONS: Include Zosyn, vancomycin, Tylenol, albuterol, Zyloprim, Lipitor, metoprolol, Tramadol. SOCIAL HISTORY: He resides in a [facility] facility. He is dependent in activities of daily living. LABORATORY DATA: White count 18.3, hematocrit 23.1, platelet count 315, creatinine 5.3, lactic acid 2.2. Chest x-ray negative for acute infiltrate. Influenza swab negative. Blood cultures negative. C. difficile positive antigen. Urinalysis, less than 10,000 enterococcal species. PHYSICAL EXAMINATION: General: The patient is awake, chronically ill-appearing in no acute distress. Not verbally responsive. Vital Signs: Temperature 98.1, blood pressure 112/65, pulse 96 regular, respirations 22 per minute. HEENT: Sclerae anicteric. Heart: Sounds S1, S2. Lungs: Grossly clear. Abdomen: Dialysis catheter, no erythema or drainage at the site. Abdomen is obese, soft, nontender. Feeding gastrostomy tube is in place. Extremities: 1+ edema. Skin: Positive sacral decubitus ulcer. IMPRESSION: 1. Status post revision of dislodged feeding gastrostomy tube. 2. Positive Clostridium difficile. 3. Leukocytosis likely secondary to positive Clostridium difficile. 4. Elevated liver enzymes, unclear etiology. 5. End-stage renal disease on hemodialysis. PLAN: Would discontinue Zosyn. Continue vancomycin 125 mg through the feeding gastrostomy tube every 6 hours. Complete 10-day course. Follow up liver enzymes. Evaluation of elevated liver enzymes as per GI. Thank you for the kind referral. GENIE ALBARRAN M.D. [id number]
[2019-10-02] MEDS ORDERED: VANCOMYCIN 250 MG/5 ML ORAL SOLUTION PO SCH ×2 (18:00)
[2019-10-02] MEDS: VANCOMYCIN 250 MG/5 ML ORAL SOLUTION GT SCH ×2 (18:25→23:06)
[2019-10-02] MEDS: PIPERACILLIN/TAZOB 2.25 GM 2.25 GM in DEXTROSE 5%-WATER - 50 ML IVPB SCH (20:45)
[2019-10-02] MEDS: ATORVASTATIN CA 40 MG TABLET (FP) GT SCH (22:04)
[2019-10-03] MEDS: METOPROLOL TARTRATE 50 MG TABLET (FP) GT SCH ×2 (05:12→15:45)
[2019-10-03] MEDS: VANCOMYCIN 250 MG/5 ML ORAL SOLUTION GT SCH ×3 (05:12→18:44)
[2019-10-03] MEDS: HEPARIN NA (PORCINE) 5,000 UNITS/ML 1ML VIAL SQ SCH ×2 (05:12→15:44)
[2019-10-03 07:26] LABS: BASO % 0.6 % (0-2.0); EOS % 2.8 % (0-4.5); HEMATOCRIT 25.4 % (35.4-49); HEMOGLOBIN 8.1 GM/dL (11.7-16.9); LYMPH % 5.4 % (8-40); MCH 25.3 pg (25.7-33.7); MCHC 31.9 g/dl (32.0-35.9); MEAN CELL VOLUME 79.5 fl (80-96); MEAN PLT VOLUME 7.8 fl (7.5-11.1); MONO % 12.2 % (3.8-10.2); PLATELET COUNT 325 K/MM3 (134-434); RBC 3.19 M/mm3 (4.00-5.60); RDW 21.4 % (11.9-15.9); WHITE BLOOD COUNT 12.5 K/mm3 (4.0-10.0)
[2019-10-03] MEDS ORDERED: EPOETIN ALFA 2,000 UNIT/1 ML VIAL IVPUSH ONE (10:56)
[2019-10-03] MEDS ORDERED: SODIUM CHLORIDE 250 ML IV PRN ×2 (10:56)
--- NOTE | 2019-10-03 11:01 | DS ---
Physical Examination Vital Signs: Vital Signs Temperature 98.4 F 10/03/19 08:47 Pulse Rate 98 H 10/03/19 08:47 Respiratory Rate 20 10/03/19 08:47 Blood Pressure 102/66 10/03/19 08:47 O2 Sat by Pulse Oximetry (%) 97 10/03/19 08:47 Constitutional: Yes: No Distress, Calm Cardiovascular: Yes: Regular Rate and Rhythm Respiratory: Yes: Diminished Gastrointestinal: Yes: Normal Bowel Sounds, Soft, Abdomen, Obese. No: Tenderness Edema: No Labs: CBC, BMP 10/03/19 06:20 10/01/19 07:12 Discharge Summary Problems reviewed: Yes Reason For Visit: END-STAGE RENAL DISEASE NEEDING DIALYSIS, SEPSIS Current Active Problems ESRD (end stage renal disease) on dialysis (Acute) Sacral decubitus ulcer, stage IV (Acute) Sepsis (Acute) Transaminitis (Acute) Hospital Course: - Admission Chief Complaint: s/p pulled Peg, possible SIRS History of Present Illness: 59 year old male from [facility] minimally verbal at baseline per chart with PMHx of ESRD (, , ), HTN, HLD, CHF, COPD, gout, Bipolar Disorder, and schizophrenia arrived to ED via EMS for s/p dislodged G-tube (no reference to how long). While in ED patient noted tachycardic, tachypnic, febrile to 100.6 with SOB, however unable to elicit further information from patient directly. Last admission was in June and July 2019 for PEG complications including pseudomonal infection with abscess. Per medical record last PEG was exchanged by Dr. Portillo IR on 07/05/19. Unable to conduct ROS due to MSE. Hospital course Seen by Renal and ID Stool is positive cdiff Pt started on GT vanco CT abd/pelvis-- no abscess. Colitis+ GT placed and is functioning IV antibiotics dc Blood cultures negative stable for dc to NH on GT Vanco x 10 days Condition: Guarded - Instructions Referrals: Earnestine Shah MD [Primary Care Provider] - - Home Medications Comprehensive Discharge Medication List: Ambulatory Orders Acetaminophen [Tylenol] 650 mg GT ASDIR 09/30/19 Albuterol 0.083% Nebulizer [place] [Ventolin 0.083% Nebulizer Soln -] 1 neb NEB Q4H PRN 09/30/19 Allopurinol [Zyloprim -] 100 mg GT DAILY 09/30/19 Aspirin [Adult Aspirin Regimen] 81 mg GT DAILY 09/30/19 Atorvastatin Calcium 40 mg GT HS 09/30/19 Collagenase Clostridium Hist. [Santyl -] 1 applic TP DAILY 09/30/19 Folic Acid - 1 mg GT DAILY 09/30/19 Metoprolol Tartrate [Lopressor -] 50 mg GT Q8H 09/30/19 Vitamin B Comp W-C [Nephro-Lulu -] 1 tablet GT DAILY 09/30/19 Zinc Sulfate [Zinc-220] 220 mg GT DAILY 09/30/19 traMADol HCL [Ultram -] 50 mg GT BID PRN 09/30/19 Vancomycin Oral Solution 125 mg GT Q6HPO 10 Days #10 ml 10/03/19
[2019-10-03] MEDS: ZINC SULFATE 220 MG CAPSULE (FP) GT SCH (11:16)
[2019-10-03] MEDS: COLLAGENASE CLOSTRIDIUM HIST. 30 GRAMS TUBE TP SCH (11:16)
[2019-10-03] MEDS: ALLOPURINOL 100 MG TABLET (FP) GT SCH (11:16)
[2019-10-03] MEDS ORDERED: EPOETIN ALFA 10,000 UNIT, EPOETIN ALFA 2,000 UNIT IVPUSH ONE (12:00)
--- NOTE | 2019-10-03 13:11 | PN ---
Progress Note, Physician History of Present Illness: Pt seen and examined at bedside. He is awake and appears comfortable. - Current Medication List Current Medications: Active Medications Acetaminophen (Tylenol Oral Solution -) 650 mg GT Q6H PRN PRN Reason: FEVER Last Admin: 10/01/19 05:08 Dose: 650 mg Albuterol Sulfate (Ventolin 0.083% Nebulizer Soln -) 1 amp NEB Q6H PRN PRN Reason: SHORT OF BREATH/WHEEZING Allopurinol (Zyloprim -) 100 mg GT DAILY [facility] Last Admin: 10/03/19 11:16 Dose: 100 mg Atorvastatin Calcium (Lipitor -) 40 mg GT HS [facility] Last Admin: 10/02/19 22:04 Dose: 40 mg Collagenase (Santyl -) 1 applic TP DAILY [facility]; Protocol Last Admin: 10/03/19 11:16 Dose: 1 applic Heparin Sodium (Porcine) (Heparin -) 5,000 unit SQ TID [facility] Last Admin: 10/03/19 05:12 Dose: 5,000 unit Sodium Chloride (Normal Saline -) 250 mls @ 3,000 mls/hr IV PRN PRN PRN Reason: Hypotension during Dialysis Stop: 10/04/19 10:56 Sodium Chloride (Normal Saline -) 250 mls @ 3,000 mls/hr IV PRN PRN PRN Reason: Hypotension during Dialysis Stop: 10/04/19 10:56 Ipratropium [place] (Atrovent 0.02% Nebulizer -) 1 amp NEB Q6H PRN PRN Reason: WHEEZING Metoprolol Tartrate (Lopressor -) 50 mg GT TID [facility] Last Admin: 10/03/19 05:12 Dose: 50 mg Tramadol HCl (Ultram -) 50 mg PEG BID PRN PRN Reason: PAIN LEVEL 6-10 Vancomycin HCl (Vancomycin Oral Solution) 125 mg GT Q6HPO [facility] Last Admin: 10/03/19 05:12 Dose: 125 mg Zinc Sulfate (Orazinc -) 220 mg GT DAILY [facility] Last Admin: 10/03/19 11:16 Dose: 220 mg - Objective Vital Signs: Vital Signs Temperature 98.8 F 10/03/19 11:45 Pulse Rate 98 H 10/03/19 12:20 Respiratory Rate 18 10/03/19 12:20 Blood Pressure 95/59 L 10/03/19 12:20 O2 Sat by Pulse Oximetry (%) 97 10/03/19 08:47 Constitutional: Yes: Calm Eyes: Yes: Conjunctiva Clear HENT: Yes: Atraumatic Cardiovascular: Yes: S1, S2 Respiratory: Yes: CTA Bilaterally Gastrointestinal: Yes: Soft, Other (peg tube) Genitourinary: Yes: Incontinence Musculoskeletal: Yes: Muscle Weakness Edema: No Neurological: Yes: Oriented Psychiatric: Yes: Oriented Labs: CBC, BMP 10/03/19 06:20 INR, PTT INR 1.33 (0.83-1.09) H 09/30/19 13:50 Problem List - Problems (1) ESRD (end stage renal disease) on dialysis Code(s): N18.6 - END STAGE RENAL DISEASE; Z99.2 - DEPENDENCE ON RENAL DIALYSIS Assessment/Plan Current Medications Generic Name Dose Route Start Last Admin Trade Name Freq PRN Reason Stop Dose Admin Acetaminophen 650 mg 09/30/19 21:26 10/01/19 05:08 Tylenol Oral Solution - GT 650 mg Q6H PRN Administration FEVER Albuterol Sulfate 1 amp 09/30/19 20:53 Ventolin 0.083% Nebulizer Soln - NEB Q6H PRN SHORT OF BREATH/WHEEZING Allopurinol 100 mg 10/01/19 10:00 10/03/19 11:16 Zyloprim - GT 100 mg DAILY [facility] Administration Atorvastatin Calcium 40 mg 09/30/19 22:00 10/02/19 22:04 Lipitor - GT 40 mg HS [facility] Administration Collagenase 1 applic 10/01/19 10:00 10/03/19 11:16 Santyl - TP 1 applic DAILY [facility] Administration Protocol Heparin Sodium (Porcine) 5,000 unit 09/30/19 22:00 10/03/19 05:12 Heparin - SQ 5,000 unit TID [facility] Administration Sodium Chloride 250 mls @ 3,000 mls/hr 10/03/19 10:56 Normal Saline - IV 10/04/19 10:56 PRN PRN Hypotension during Dialysis Sodium Chloride 250 mls @ 3,000 mls/hr 10/03/19 10:56 Normal Saline - IV 10/04/19 10:56 PRN PRN Hypotension during Dialysis Ipratropium [place] 1 amp 09/30/19 20:53 Atrovent 0.02% Nebulizer - NEB Q6H PRN WHEEZ[facility] Metoprolol Tartrate 50 mg 09/30/19 22:00 10/03/19 05:12 Lopressor - GT 50 mg TID [facility] Administration Tramadol HCl 50 mg 09/30/19 20:56 Ultram - PEG BID PRN PAIN LEVEL 6-10 Vancomycin HCl 125 mg 10/02/19 18:00 10/03/19 05:12 Vancomycin Oral Solution GT 125 mg Q6HPO [facility] Administration Zinc Sulfate 220 mg 10/01/19 10:00 10/03/19 11:16 Orazinc - GT 220 mg DAILY [facility] Administration Impression 1. ESRD 2. dislodged g-tub 3. gout 4. HTN 5. CHF 6. DM 7. hx bipolar 8. MOLLY 9. non compliance 10. c. diff 11. a-fib 12. anemia Plan - HD today - epogen for anemia - feeding tube to be used - follow labs - hg improved - pt appears comfortable Dr Raphael
[2019-10-03 13:18] VITALS: TEMP 98
[2019-10-03 13:18] LABS: BLOOD UREA NITROGEN 66.3 mg/dL (7-18); CALCIUM 9.3 mg/dL (8.5-10.1); CREATININE 4.6 mg/dL (0.55-1.3); POTASSIUM 3.4 mmol/L (3.5-5.1)
--- NOTE | 2019-10-03 16:09 | PN.GI ---
GI Progress Note Subjective: G-Tube functioning properly Patient non-verbal CT scan revealing ? enteritis, ? thickening of the sigmoid colon Being treated for C. Diff - Objective Vital Signs: Vital Signs Temperature 98.0 F 10/03/19 13:17 Pulse Rate 90 10/03/19 15:10 Respiratory Rate 18 10/03/19 15:10 Blood Pressure 105/66 10/03/19 15:10 O2 Sat by Pulse Oximetry (%) 97 10/03/19 08:47 Constitutional: Calm Eyes: No: Sclera Icterus Cardiovascular: Yes: Regular Rate and Rhythm Respiratory: Yes: Diminished (at bases bilaterally with poor insp effort.) Gastrointestinal Inspection: No: Scars ...Auscultate: Yes: Normoactive Bowel Sounds ...Palpate: Yes: Soft. No: Tenderness (No grimacing upon palpation) ...Percussion: No: Tympanitic Neurological: Yes: Alert Labs: CBC, BMP 10/03/19 06:20 10/03/19 11:50 INR, PTT INR 1.33 (0.83-1.09) H 09/30/19 13:50 Problem List - Problems (1) C. difficile diarrhea Assessment/Plan: Being treated for C. Diff with PO vanco. Leukocytosis improving Code(s): A04.72 - ENTEROCOLITIS D/T CLOSTRIDIUM DIFFICILE, NOT [facility]PCF RECUR
[2019-10-03 18:19] VITALS: BP 110/74; PULSE 101
[2019-10-03] MEDS ORDERED: PT OWN MED DRAWER 7, Y5N ONE (18:46)
== END 2019-10-03 19:03 | DRG 871 ==
LOC: JER 12:59 → JERBED 16:09 → J5S 19:56 → J4S 10-02 21:12
PROVIDERS: ADMIT Internal Medicine; ATTEND Internal Medicine
PROC: 5A1D70Z Performance of Urinary Filtration, Intermittent, Less than 6 Hours Per Day (ICD-10-PCS; 2019-09-30)
PROC: 0DH63UZ Insertion of Feeding Device into Stomach, Percutaneous Approach (ICD-10-PCS; principal; 2019-10-01)
PROC: 5A1D70Z Performance of Urinary Filtration, Intermittent, Less than 6 Hours Per Day (ICD-10-PCS; 2019-10-03)
DX: A41.89 Other specified sepsis (principal); L89.154 Pressure ulcer of sacral region, stage 4; N18.6 End stage renal disease; E87.1 Hypo-osmolality and hyponatremia; I13.2 Hypertensive heart and chronic kidney disease with heart failure and with stage 5 chronic kidney disease, or end stage renal disease; A04.72 Enterocolitis due to Clostridium difficile, not specified as recurrent; T85.528A Displacement of other gastrointestinal prosthetic devices, implants and grafts, initial encounter; J44.9 Chronic obstructive pulmonary disease, unspecified; E78.5 Hyperlipidemia, unspecified; F31.9 Bipolar disorder, unspecified; M10.9 Gout, unspecified; R50.9 Fever, unspecified; K21.9 Gastro-esophageal reflux disease without esophagitis; E11.9 Type 2 diabetes mellitus without complications; D64.9 Anemia, unspecified; F20.9 Schizophrenia, unspecified; E66.9 Obesity, unspecified; Z68.31 Body mass index [BMI] 31.0-31.9, adult; G47.33 Obstructive sleep apnea (adult) (pediatric); D72.829 Elevated white blood cell count, unspecified; R94.5 Abnormal results of liver function studies; E11.22 Type 2 diabetes mellitus with diabetic chronic kidney disease; I50.9 Heart failure, unspecified; Z99.2 Dependence on renal dialysis; Z93.1 Gastrostomy status; Z91.14 Patient's other noncompliance with medication regimen
CPT/HCPCS: 36415; 36430; 36511; 71045-TC-FY; 74018-TC-FY; 74019-TC-FY; 74176-TC; 76700-TC; 80048; 80053; 82272; 82803; 83605; 84484; 85025; 85027; 85610; 85651; 85730; 86140; 86803; 86850; 86900; 86901; 86922; 87040; 87070; 87086; 87186; 87205; 87324; 87340; 87449; 87804; 93005; 93010; 99285-25; J0131; J0885; J1644; P9038; P9058; Q9967